=== PATIENT | female | born 1940 | race Caucasian/White ===

== ENCOUNTER 2020-04-04 08:41 | Outpatient (REF) | payer MEDICARE, BC, SELFPAY ==
[2020-04-04 10:53] LABS: Prothrombin Time 180.9 SEC (10.8-13.0)
[2020-04-04 10:56] LABS: INTERNATIONAL NORM RATIO 14.8 (0.9-1.1)
== END 2020-04-04 08:42 | disposition home or self-care (01) ==
LOC: HO.LAB 08:41
PROVIDERS: PCP Internal Medicine; Visit Provider Internal Medicine
DX: Z79.01 Long term (current) use of anticoagulants (principal)
CPT/HCPCS: 36415; 85610; 99211

== ENCOUNTER 2020-04-06 08:05 | Outpatient (REF) | payer MEDICARE, SELFPAY ==
[2020-04-06 09:10] LABS: Prothrombin Time 101.4 SEC (10.8-13.0)
[2020-04-06 09:12] LABS: INTERNATIONAL NORM RATIO 8.3 (0.9-1.1)
== END 2020-04-06 08:06 | disposition home or self-care (01) ==
LOC: HO.LAB 08:05
PROVIDERS: PCP Internal Medicine; Visit Provider Internal Medicine
DX: Z79.01 Long term (current) use of anticoagulants (principal)
CPT/HCPCS: 36415; 85610

== ENCOUNTER → 2020-04-08 08:01 | Outpatient (BNVA) | payer MEDICARE, SELFPAY | PROVIDERS: PCP Internal Medicine; Referring Provider Internal Medicine; Visit Provider Internal Medicine | DX: I48.0 Paroxysmal atrial fibrillation (principal); Z51.81 Encounter for therapeutic drug level monitoring; Z79.01 Long term (current) use of anticoagulants | CPT/HCPCS: 85610; 99211 ==

== ENCOUNTER → 2020-04-11 08:30 | Outpatient (BNVA) | payer MEDICARE, SELFPAY | PROVIDERS: PCP Internal Medicine; Visit Provider Internal Medicine | DX: I48.0 Paroxysmal atrial fibrillation (principal); Z51.81 Encounter for therapeutic drug level monitoring; Z79.01 Long term (current) use of anticoagulants | CPT/HCPCS: 85610; 99211 ==

== ENCOUNTER → 2020-04-15 08:32 | Outpatient (BNVA) | payer MEDICARE, SELFPAY | PROVIDERS: PCP Internal Medicine; Visit Provider Internal Medicine | DX: I48.0 Paroxysmal atrial fibrillation (principal); Z51.81 Encounter for therapeutic drug level monitoring; Z79.01 Long term (current) use of anticoagulants | CPT/HCPCS: 85610; 99211 ==

== ENCOUNTER → 2020-04-25 07:57 | Outpatient (BNVA) | payer MEDICARE, SELFPAY | PROVIDERS: PCP Internal Medicine; Referring Provider Internal Medicine; Visit Provider Internal Medicine Endocrinology, Diabetes & Metabolism | DX: Z13.89 Encounter for screening for other disorder (principal) | CPT/HCPCS: Q3014 ==

== ENCOUNTER 2020-04-26 08:59 | Outpatient (REF) | payer MEDICARE, SELFPAY ==
[2020-04-26 12:24] LABS: B Type Natriuretic Peptide 131 pg/mL (<100)
[2020-04-26 12:30] LABS: Anion Gap 13 (12-20); Blood Urea Nitrogen 14 mg/dL (9-16); Calcium 9.3 mg/dL (8.4-10.2); Carbon Dioxide 29 mmol/L (22-29); Chloride 104 mmol/L (96-108); Estimated Glomerular Filt Rate > 60; Glucose Random 103 mg/dL (60-115); Sodium 142 mmol/L (135-145)
[2020-04-26 12:31] LABS: Albumin Level 3.8 g/dL (3.5-5.0); Calcium 9.1 mg/dL (8.4-10.2)
[2020-04-26 12:47] LABS: Vitamin D 25-OH Total 72.5 ng/mL (>30)
[2020-04-27 14:03] LABS: Calcium (PTHI) 9.4 mg/dL (8.6-10.4); PTHI 44 pg/mL (14-64)
[2020-05-04 10:57] LABS: Vitamin B1 49 nmol/L (8-30)
== END 2020-04-26 09:00 | disposition home or self-care (01) ==
LOC: HO.LAB 08:59
PROVIDERS: Absent Provider Internal Medicine Endocrinology, Diabetes & Metabolism; PCP Internal Medicine; Referring Provider Internal Medicine; Visit Provider Internal Medicine
DX: M81.0 Age-related osteoporosis without current pathological fracture (principal); I34.2 Nonrheumatic mitral (valve) stenosis
CPT/HCPCS: 80048; 82040; 82306; 82310; 83880; 83970; 84425; 85610; 99211

== ENCOUNTER → 2020-05-02 09:15 | Outpatient (BNVA) | payer MEDICARE, SELFPAY | PROVIDERS: PCP Internal Medicine; Visit Provider Internal Medicine | DX: I48.0 Paroxysmal atrial fibrillation (principal); Z79.01 Long term (current) use of anticoagulants; Z51.81 Encounter for therapeutic drug level monitoring | CPT/HCPCS: 85610; 99211 ==

== ENCOUNTER 2020-05-04 12:58 | Outpatient (REF) | payer MEDICARE, SELFPAY ==
[2020-05-04 14:25] LABS: Total Volume 24 Hour Urine 850 mL
[2020-05-04 14:33] LABS: Creatinine, 24Hr Urine 1.1 G/Day (1.0-2.0); Creatinine, mg/dL 130.33
[2020-05-05 19:23] LABS: Calcium, 24 Hr Urine 86 mg/24 h; Calcium/Creatinine Ratio 73 mg/g creat (30-275); Creatinine 24Hr Urine 1.17 g/24 h (0.50-2.15)
[2020-05-10 14:23] LABS: N-Telopeptide 27 (see note); NTXCreaRU 41 mg/dL (20-275)
== END 2020-05-04 12:59 | disposition home or self-care (01) ==
LOC: HO.LNP 12:58
PROVIDERS: Visit Provider Internal Medicine Endocrinology, Diabetes & Metabolism
DX: M81.0 Age-related osteoporosis without current pathological fracture (principal)
CPT/HCPCS: 82340; 82523; 82570

== ENCOUNTER → 2020-05-09 08:02 | Outpatient (BNVA) | payer MEDICARE, SELFPAY | PROVIDERS: PCP Internal Medicine; Visit Provider Internal Medicine | DX: I48.0 Paroxysmal atrial fibrillation (principal); Z51.81 Encounter for therapeutic drug level monitoring; Z79.01 Long term (current) use of anticoagulants | CPT/HCPCS: 85610; 99211 ==

== ENCOUNTER → 2020-05-16 08:24 | Outpatient (BNVA) | payer MEDICARE, SELFPAY | PROVIDERS: PCP Internal Medicine; Visit Provider Internal Medicine | DX: I48.0 Paroxysmal atrial fibrillation (principal); Z51.81 Encounter for therapeutic drug level monitoring; Z79.01 Long term (current) use of anticoagulants | CPT/HCPCS: 85610; 99211 ==

== ENCOUNTER → 2020-05-30 09:08 | Outpatient (BNVA) | payer MEDICARE, SELFPAY | PROVIDERS: PCP Internal Medicine; Visit Provider Internal Medicine | DX: I48.0 Paroxysmal atrial fibrillation (principal); Z51.81 Encounter for therapeutic drug level monitoring; Z79.01 Long term (current) use of anticoagulants | CPT/HCPCS: 85610; 99211 ==

== ENCOUNTER → 2020-06-15 07:53 | Outpatient (BNVA) | payer MEDICARE, SELFPAY | PROVIDERS: PCP Internal Medicine; Visit Provider Internal Medicine | DX: I48.0 Paroxysmal atrial fibrillation (principal); Z51.81 Encounter for therapeutic drug level monitoring; Z79.01 Long term (current) use of anticoagulants | CPT/HCPCS: 85610; 99211 ==

== ENCOUNTER → 2020-07-28 13:40 | Outpatient (BNVA) | payer MEDICARE, SELFPAY | PROVIDERS: PCP Internal Medicine; Visit Provider Internal Medicine | DX: I48.0 Paroxysmal atrial fibrillation (principal); Z51.81 Encounter for therapeutic drug level monitoring; Z79.01 Long term (current) use of anticoagulants | CPT/HCPCS: Q3014 ==

== ENCOUNTER → 2020-08-01 11:57 | Outpatient (BNVA) | payer MEDICARE, SELFPAY | PROVIDERS: PCP Internal Medicine; Visit Provider Internal Medicine | DX: I48.0 Paroxysmal atrial fibrillation (principal); Z51.81 Encounter for therapeutic drug level monitoring; Z79.01 Long term (current) use of anticoagulants | CPT/HCPCS: Q3014 ==

== ENCOUNTER → 2020-08-08 13:50 | Outpatient (BNVA) | payer MEDICARE, SELFPAY | PROVIDERS: PCP Internal Medicine; Visit Provider Internal Medicine | DX: I48.0 Paroxysmal atrial fibrillation (principal); Z51.81 Encounter for therapeutic drug level monitoring; Z79.01 Long term (current) use of anticoagulants | CPT/HCPCS: Q3014 ==

== ENCOUNTER → 2020-08-15 11:57 | Outpatient (BNVA) | payer MEDICARE, SELFPAY | PROVIDERS: PCP Internal Medicine; Visit Provider Internal Medicine | DX: I48.0 Paroxysmal atrial fibrillation (principal); Z51.81 Encounter for therapeutic drug level monitoring; Z79.01 Long term (current) use of anticoagulants | CPT/HCPCS: Q3014 ==

== ENCOUNTER → 2020-08-19 11:20 | Outpatient (BNVA) | payer MEDICARE, SELFPAY | PROVIDERS: PCP Internal Medicine; Visit Provider Internal Medicine | DX: I48.0 Paroxysmal atrial fibrillation (principal); Z51.81 Encounter for therapeutic drug level monitoring; Z79.01 Long term (current) use of anticoagulants | CPT/HCPCS: Q3014 ==

== ENCOUNTER → 2020-08-24 12:11 | Outpatient (BNVA) | payer MEDICARE, SELFPAY | PROVIDERS: PCP Internal Medicine; Visit Provider Internal Medicine | DX: I48.0 Paroxysmal atrial fibrillation (principal); Z51.81 Encounter for therapeutic drug level monitoring; Z79.01 Long term (current) use of anticoagulants | CPT/HCPCS: Q3014 ==

== ENCOUNTER → 2020-08-25 15:48 | Outpatient (BNVA) | payer MEDICARE, SELFPAY | PROVIDERS: PCP Internal Medicine; Visit Provider Internal Medicine | DX: I48.0 Paroxysmal atrial fibrillation (principal); Z51.81 Encounter for therapeutic drug level monitoring; Z79.01 Long term (current) use of anticoagulants | CPT/HCPCS: Q3014 ==

== ENCOUNTER → 2020-08-29 14:46 | Outpatient (BNVA) | payer MEDICARE, SELFPAY | PROVIDERS: PCP Internal Medicine; Visit Provider Internal Medicine | DX: I48.0 Paroxysmal atrial fibrillation (principal); Z51.81 Encounter for therapeutic drug level monitoring; Z79.01 Long term (current) use of anticoagulants | CPT/HCPCS: Q3014 ==

== ENCOUNTER → 2020-09-01 10:51 | Outpatient (BNVA) | payer MEDICARE, BC, SELFPAY | PROVIDERS: PCP Internal Medicine; Visit Provider Internal Medicine | DX: I48.0 Paroxysmal atrial fibrillation (principal); Z51.81 Encounter for therapeutic drug level monitoring; Z79.01 Long term (current) use of anticoagulants | CPT/HCPCS: Q3014 ==

== ENCOUNTER → 2020-09-05 16:06 | Outpatient (BNVA) | payer MEDICARE, SELFPAY | PROVIDERS: PCP Internal Medicine; Visit Provider Internal Medicine | DX: I48.0 Paroxysmal atrial fibrillation (principal) | CPT/HCPCS: Q3014 ==

== ENCOUNTER → 2020-09-12 12:43 | Outpatient (BNVA) | payer MEDICARE, SELFPAY | PROVIDERS: PCP Internal Medicine; Visit Provider Internal Medicine | DX: I48.0 Paroxysmal atrial fibrillation (principal); Z79.01 Long term (current) use of anticoagulants; Z51.81 Encounter for therapeutic drug level monitoring | CPT/HCPCS: Q3014 ==

== ENCOUNTER → 2020-09-20 11:37 | Outpatient (BNVA) | payer MEDICARE, SELFPAY | PROVIDERS: PCP Internal Medicine; Visit Provider Internal Medicine | DX: I48.0 Paroxysmal atrial fibrillation (principal); Z79.01 Long term (current) use of anticoagulants; Z51.81 Encounter for therapeutic drug level monitoring | CPT/HCPCS: Q3014 ==

== ENCOUNTER → 2020-09-28 08:27 | Outpatient (BNVA) | payer MEDICARE, SELFPAY | PROVIDERS: PCP Internal Medicine; Visit Provider Internal Medicine | DX: I48.0 Paroxysmal atrial fibrillation (principal); Z51.81 Encounter for therapeutic drug level monitoring; Z79.01 Long term (current) use of anticoagulants | CPT/HCPCS: 85610; 99211 ==

== ENCOUNTER → 2020-10-05 08:01 | Outpatient (BNVA) | payer MEDICARE, SELFPAY | PROVIDERS: PCP Internal Medicine; Visit Provider Internal Medicine | DX: I48.0 Paroxysmal atrial fibrillation (principal); Z51.81 Encounter for therapeutic drug level monitoring; Z79.01 Long term (current) use of anticoagulants | CPT/HCPCS: 85610; 99211 ==

== ENCOUNTER → 2020-10-19 08:31 | Outpatient (BNVA) | payer MEDICARE, SELFPAY | PROVIDERS: PCP Internal Medicine; Visit Provider Internal Medicine | DX: I48.0 Paroxysmal atrial fibrillation (principal); Z51.81 Encounter for therapeutic drug level monitoring; Z79.01 Long term (current) use of anticoagulants | CPT/HCPCS: 85610; 99211 ==

== ENCOUNTER → 2020-11-09 08:20 | Outpatient (BNVA) | payer MEDICARE, BC, SELFPAY | PROVIDERS: PCP Internal Medicine; Visit Provider Internal Medicine | DX: I48.0 Paroxysmal atrial fibrillation (principal); Z51.81 Encounter for therapeutic drug level monitoring; Z79.01 Long term (current) use of anticoagulants | CPT/HCPCS: 85610; 99211 ==

== ENCOUNTER → 2020-11-30 08:02 | Outpatient (BNVA) | payer MEDICARE, BC, SELFPAY | PROVIDERS: PCP Internal Medicine; Visit Provider Internal Medicine | DX: I48.0 Paroxysmal atrial fibrillation (principal); Z51.81 Encounter for therapeutic drug level monitoring; Z79.01 Long term (current) use of anticoagulants | CPT/HCPCS: 85610; 99211 ==

== ENCOUNTER 2020-12-13 08:21 | Outpatient (REF) | payer MEDICARE, BC, SELFPAY ==
--- NOTE | ~2020-12-13 | US_ITS ---
EXAMINATION: US RETROPERITONEAL LIMITED (RENAL ONLY) CLINICAL INFORMATION: Nephrolithiasis. COMPARISON: Ultrasound renal ultrasound 12/07/2019 and 10/03/2018. CT abdomen pelvis 01/24/2017. TECHNIQUE: Real-time imaging of the kidneys. FINDINGS: RIGHT KIDNEY: 10.1 x 4.7 x 5.3 cm (SAG x AP x TRV). The kidney is normal in size, contour, and echogenicity. Renal cortical thickness is normal. No focal parenchymal lesions or hydronephrosis. The cluster of echogenic stones in upper pole measuring 0.9 x 0.4 x 0.5 cm. LEFT KIDNEY: 12.2 x 5.0 x 5.1 cm (SAG x AP x TRV). The kidney is normal in size, contour, and echogenicity. Renal cortical thickness is normal. No renal calculi or hydronephrosis. Anechoic cysts in lower pole measuring 2.3 x 1.8 x 2.0 cm. US/US renal BI IMPRESSION: Nonobstructive small echogenic cluster of stones in the upper pole right kidney. Anechoic cyst lower pole left kidney.
== END 2020-12-13 08:22 | disposition home or self-care (01) ==
LOC: HO.HMGCX 08:21
PROVIDERS: PCP Internal Medicine; Visit Provider Urology
DX: N20.0 Calculus of kidney (principal)
CPT/HCPCS: 76775

== ENCOUNTER → 2020-12-26 08:00 | Outpatient (BNVA) | payer MEDICARE, BC, SELFPAY | PROVIDERS: PCP Internal Medicine; Visit Provider Internal Medicine | DX: I48.0 Paroxysmal atrial fibrillation (principal); Z51.81 Encounter for therapeutic drug level monitoring; Z79.01 Long term (current) use of anticoagulants | CPT/HCPCS: 85610; 99211 ==

== ENCOUNTER → 2021-01-30 08:04 | Outpatient (BNVA) | payer MEDICARE, BC, SELFPAY | PROVIDERS: PCP Internal Medicine; Visit Provider Internal Medicine | DX: I48.0 Paroxysmal atrial fibrillation (principal); Z79.01 Long term (current) use of anticoagulants; Z51.81 Encounter for therapeutic drug level monitoring | CPT/HCPCS: 85610; 99211 ==

== ENCOUNTER → 2021-02-27 08:09 | Outpatient (BNVA) | payer MEDICARE, BC, SELFPAY | PROVIDERS: PCP Internal Medicine; Visit Provider Internal Medicine | DX: I48.0 Paroxysmal atrial fibrillation (principal); Z51.81 Encounter for therapeutic drug level monitoring; Z79.01 Long term (current) use of anticoagulants | CPT/HCPCS: 85610; 99211 ==

== ENCOUNTER → 2021-03-16 09:48 | Outpatient (BNVA) | payer MEDICARE, BC, SELFPAY | PROVIDERS: PCP Internal Medicine | DX: N20.0 Calculus of kidney (principal) | CPT/HCPCS: Q3014 ==

== ENCOUNTER → 2021-03-28 08:03 | Outpatient (BNVA) | payer MEDICARE, BC, SELFPAY | PROVIDERS: PCP Internal Medicine; Visit Provider Internal Medicine | DX: I48.0 Paroxysmal atrial fibrillation (principal); Z51.81 Encounter for therapeutic drug level monitoring; Z79.01 Long term (current) use of anticoagulants | CPT/HCPCS: 85610; 99211 ==

== ENCOUNTER → 2021-04-11 07:59 | Outpatient (BNVA) | payer MEDICARE, BC, SELFPAY | PROVIDERS: PCP Internal Medicine; Visit Provider Internal Medicine | DX: I48.0 Paroxysmal atrial fibrillation (principal); Z51.81 Encounter for therapeutic drug level monitoring; Z79.01 Long term (current) use of anticoagulants | CPT/HCPCS: 85610; 99211 ==

== ENCOUNTER → 2021-05-02 08:13 | Outpatient (BNVA) | payer MEDICARE, BC, SELFPAY | PROVIDERS: PCP Internal Medicine; Visit Provider Internal Medicine | DX: Z13.89 Encounter for screening for other disorder (principal) | CPT/HCPCS: 85610; 99211 ==

== ENCOUNTER 2021-05-02 09:00 | Outpatient (REF) | payer MEDICARE, BC, SELFPAY | END 2021-05-02 09:01 | disposition home or self-care (01) | LOC: HO.LAB 09:00 | PROVIDERS: PCP Internal Medicine; Visit Provider Internal Medicine | DX: Z20.822 Contact with and (suspected) exposure to COVID-19 (principal) | CPT/HCPCS: 85610; 99211; C9803; U0003; U0005 ==

== ENCOUNTER → 2021-05-22 08:02 | Outpatient (BNVA) | payer MEDICARE, BC, SELFPAY | PROVIDERS: PCP Internal Medicine; Visit Provider Internal Medicine | DX: I48.0 Paroxysmal atrial fibrillation (principal); Z51.81 Encounter for therapeutic drug level monitoring; Z79.01 Long term (current) use of anticoagulants | CPT/HCPCS: 85610; 99211 ==

== ENCOUNTER → 2021-06-26 08:02 | Outpatient (BNVA) | payer MEDICARE, BC, SELFPAY | PROVIDERS: PCP Internal Medicine; Visit Provider Internal Medicine | DX: I48.0 Paroxysmal atrial fibrillation (principal); Z51.81 Encounter for therapeutic drug level monitoring; Z79.01 Long term (current) use of anticoagulants | CPT/HCPCS: 85610; 99211 ==

== ENCOUNTER → 2021-07-11 08:41 | Outpatient (BNVA) | payer MEDICARE, BC, SELFPAY | PROVIDERS: PCP Internal Medicine; Visit Provider Internal Medicine | DX: I48.0 Paroxysmal atrial fibrillation (principal); Z51.81 Encounter for therapeutic drug level monitoring; Z79.01 Long term (current) use of anticoagulants | CPT/HCPCS: 85610; 99211 ==

== ENCOUNTER → 2021-08-09 08:01 | Outpatient (BNVA) | payer MEDICARE, BC, SELFPAY | PROVIDERS: PCP Internal Medicine; Visit Provider Internal Medicine | DX: I48.0 Paroxysmal atrial fibrillation (principal); Z51.81 Encounter for therapeutic drug level monitoring; Z79.01 Long term (current) use of anticoagulants | CPT/HCPCS: 85610; 99211 ==

== ENCOUNTER → 2021-09-04 08:04 | Outpatient (BNVA) | payer MEDICARE, BC, SELFPAY | PROVIDERS: PCP Internal Medicine; Visit Provider Internal Medicine | DX: I48.0 Paroxysmal atrial fibrillation (principal); Z51.81 Encounter for therapeutic drug level monitoring; Z79.01 Long term (current) use of anticoagulants | CPT/HCPCS: 85610; 99211 ==

== ENCOUNTER 2021-09-08 08:20 | Outpatient (REF) | payer MEDICARE, BC, SELFPAY ==
--- NOTE | ~2021-09-08 | US_ITS ---
EXAMINATION: US RETROPERITONEAL LIMITED (RENAL ONLY) CLINICAL INFORMATION: Calculus of kidney. COMPARISON: Renal ultrasound 12/13/2020 and 12/07/2019. CT abdomen and pelvis 01/24/2017. TECHNIQUE: Real-time imaging of the kidneys. FINDINGS: RIGHT KIDNEY: 9.6 x 4.5 x 5.2 cm (SAG x AP x TRV). The kidney is normal in size, contour, and echogenicity. Renal cortical thickness is normal. No focal parenchymal lesions or hydronephrosis. There is 0.6 x 0.4 x 0.6 cm stone in the upper pole not associated with hydronephrosis LEFT KIDNEY: Evaluation of left kidney is limited due to bowel gas distribution. Left kidney measured 10.1 x 4.2 x 4.8 cm (SAG x AP x TRV). The kidney is normal in size, contour, and echogenicity. Renal cortical thickness is normal. No renal calculi or hydronephrosis. There is lower pole 2.1 x 2.1 x 1.6 cm simple cyst. US/US renal BI IMPRESSION: Nephrolithiasis on the right and cyst on the left.
== END 2021-09-08 08:21 | disposition home or self-care (01) ==
LOC: HO.HMGCX 08:20
PROVIDERS: PCP Internal Medicine
DX: N20.0 Calculus of kidney (principal)
CPT/HCPCS: 76775

== ENCOUNTER → 2021-09-14 09:28 | Outpatient (BNVA) | payer MEDICARE, BC, SELFPAY | PROVIDERS: PCP Internal Medicine | DX: N20.0 Calculus of kidney (principal) | CPT/HCPCS: 99212 ==

== ENCOUNTER 2021-09-26 07:44 | Outpatient (REF) | payer MEDICARE, BC, SELFPAY ==
--- NOTE | ~2021-09-26 | MM_ITS ---
EXAMINATION: MM SCREENING DIGITAL BREAST TOMOSYNTHESIS, BILATERAL CLINICAL INFORMATION: Screening. Asymptomatic. 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 The lifetime risk of breast cancer based on the Tyrer-Cuzick Model is 2%. COMPARISON: Mammography: 12/08/2018, 10/19/2017, 09/20/2016 TECHNIQUE: Digital breast tomosynthesis is performed in both the craniocaudal and mediolateral oblique views along with computer-aided detection (CAD). Synthesized 2D images are generated from the tomosynthesis. Additional right cleavage and left MLO views are provided. FINDINGS: There are scattered areas of fibroglandular density (ACR BI-RADS breast composition Category b). There is fibronodular parenchymal pattern similar to prior studies. No developing density or interval architectural abnormality. Again, there are multiple bilateral scattered isolated and grouped round and coarse calcifications as well as vascular calcifications. There is biopsy clip marker again noted right breast mid 3:00 position. The calcifications in right breast prompting sampling appear coarser consistent with the pathology of hyalinized fibroadenoma. The axilla and skin contours are unremarkable. MM/MM tomosynthesis screening BI IMPRESSION: No mammographic evidence of malignancy. ASSESSMENT: BI-RADS 2: Benign RECOMMENDATION: Routine annual mammography screening. This patient's information was entered into a reminder system with a target due date for their next mammogram.
== END 2021-09-26 07:45 | disposition home or self-care (01) ==
LOC: HO.MAMMO 07:44
PROVIDERS: PCP Internal Medicine; Visit Provider Internal Medicine
DX: Z12.31 Encounter for screening mammogram for malignant neoplasm of breast (principal)
CPT/HCPCS: 77063; 77067

== ENCOUNTER → 2021-10-02 07:59 | Outpatient (BNVA) | payer MEDICARE, BC, SELFPAY | PROVIDERS: PCP Internal Medicine; Visit Provider Internal Medicine | DX: I48.0 Paroxysmal atrial fibrillation (principal); Z79.01 Long term (current) use of anticoagulants; Z51.81 Encounter for therapeutic drug level monitoring | CPT/HCPCS: 85610; 99211 ==

== ENCOUNTER → 2021-10-31 08:02 | Outpatient (BNVA) | payer MEDICARE, BC, SELFPAY | PROVIDERS: PCP Internal Medicine; Visit Provider Internal Medicine | DX: I48.0 Paroxysmal atrial fibrillation (principal); Z79.01 Long term (current) use of anticoagulants; Z51.81 Encounter for therapeutic drug level monitoring | CPT/HCPCS: 85610; 99211 ==

== ENCOUNTER → 2021-11-27 08:02 | Outpatient (BNVA) | payer MEDICARE, BC, SELFPAY | PROVIDERS: PCP Internal Medicine; Visit Provider Internal Medicine | DX: I48.0 Paroxysmal atrial fibrillation (principal); Z79.01 Long term (current) use of anticoagulants; Z51.81 Encounter for therapeutic drug level monitoring | CPT/HCPCS: 85610; 99211 ==

== ENCOUNTER → 2021-12-25 08:02 | Outpatient (BNVA) | payer MEDICARE, BC, SELFPAY | PROVIDERS: PCP Internal Medicine; Visit Provider Internal Medicine | DX: I48.0 Paroxysmal atrial fibrillation (principal); Z51.81 Encounter for therapeutic drug level monitoring; Z79.01 Long term (current) use of anticoagulants | CPT/HCPCS: 85610; 99211 ==

== ENCOUNTER → 2021-12-28 08:25 | Outpatient (BNVA) | payer MEDICARE, BC, SELFPAY | PROVIDERS: PCP Internal Medicine; Visit Provider Internal Medicine | DX: I48.0 Paroxysmal atrial fibrillation (principal); Z51.81 Encounter for therapeutic drug level monitoring; Z79.01 Long term (current) use of anticoagulants | CPT/HCPCS: 85610; 99211 ==

== ENCOUNTER → 2022-01-04 07:56 | Outpatient (BNVA) | payer MEDICARE, BC, SELFPAY | PROVIDERS: PCP Internal Medicine; Visit Provider Internal Medicine | DX: I48.0 Paroxysmal atrial fibrillation (principal); Z51.81 Encounter for therapeutic drug level monitoring; Z79.01 Long term (current) use of anticoagulants | CPT/HCPCS: 85610; 99211 ==

== ENCOUNTER → 2022-02-01 08:06 | Outpatient (BNVA) | payer MEDICARE, BC, SELFPAY | PROVIDERS: PCP Internal Medicine; Visit Provider Internal Medicine | DX: I48.0 Paroxysmal atrial fibrillation (principal); Z79.01 Long term (current) use of anticoagulants; Z51.81 Encounter for therapeutic drug level monitoring | CPT/HCPCS: 85610; 99211 ==

== ENCOUNTER 2022-02-02 11:01 | Outpatient (REF) | payer MEDICARE, BC, SELFPAY ==
[2022-02-02 13:52] LABS: MANUAL DIFF FLAG NO
[2022-02-02 13:58] LABS: Basophils Percent Auto 0.5 % (0-2); Eosinophils Absolute Auto 0.1 X10*3/uL (0.0-0.4); Eosinophils Percent Auto 2.2 % (0-4); Hematocrit 38.4 % (37.0-47.0); Hemoglobin 12.3 g/dl (12.0-16.0); Imm Gran Abs Auto 0.01 X10*3/uL (0.00-0.03); Imm Gran Pct Auto 0.2 % (0.0-0.4); Lymphocytes Absolute Auto 1.9 X10*3/uL (1.2-4.9); Lymphocytes Percent Auto 31.2 % (20-40); Mean Corpuscular Hemoglobin 29.9 pg (27.0-33.0); Mean Corpuscular Volume 93.2 fL (80.0-98.0); Mean Platelet Volume 11.6 fL (9.4-12.3); Monocytes Absolute Auto 0.6 X10*3/uL (0.1-1.2); Monocytes Percent Auto 9.5 % (2-11); Neutrophils Absolute Auto 3.4 x10*3/uL (2.0-8.3); Neutrophils Percent Auto 56.4 % (45-73); Platelet Count 168 X10*3/uL (160-400); Red Blood Count 4.12 X10*6/uL (4.20-5.50); Red Cell Distribution Width 13.2 % (11.0-16.0)
[2022-02-02 14:15] LABS: Alanine Aminotransferase 14 U/L (0-31); Albumin Level 4.1 g/dL (3.5-5.0); Alkaline Phosphatase 112 U/L (39-117); Anion Gap 18 (12-20); Aspartate Amino Transferase 26 U/L (5-31); Bilirubin Total 0.9 mg/dL (0.0-1.0); Blood Urea Nitrogen 38 mg/dL (9-16); Calcium 9.5 mg/dL (8.4-10.2); Carbon Dioxide 26 mmol/L (22-29); Chloride 104 mmol/L (96-108); Cholesterol 157 mg/dL; Estimated Glomerular Filt Rate 29; Glucose Fasting 106 mg/dL (60-99); HDL Cholesterol 35 mg/dL; LDL Cholesterol Calculated 89 mg/dl; Potassium 4.9 mmol/L (3.3-5.1); Sodium 143 mmol/L (135-145); Total Protein 7.2 g/dL (6.5-8.0); Triglycerides 169 mg/dL
[2022-02-02 14:38] LABS: TSH reflex Free T4 1.92 uIU/mL (0.32-4.0); Vitamin D 25-OH Total 87.6 ng/mL (>30)
== END 2022-02-02 11:02 | disposition home or self-care (01) ==
LOC: HO.HMGCLDS 11:01
PROVIDERS: PCP Internal Medicine; Visit Provider Internal Medicine
DX: Z00.00 Encounter for general adult medical examination without abnormal findings (principal); I48.91 Unspecified atrial fibrillation; I10 Essential (primary) hypertension; E78.5 Hyperlipidemia, unspecified
CPT/HCPCS: 36415; 80053; 80061; 82306; 84443; 85025

== ENCOUNTER 2022-02-15 14:56 | Outpatient (REF) | payer MEDICARE, BC, SELFPAY ==
[2022-02-15 17:21] LABS: Anion Gap 19 (12-20); Blood Urea Nitrogen 35 mg/dL (9-16); Calcium 9.9 mg/dL (8.4-10.2); Carbon Dioxide 26 mmol/L (22-29); Chloride 105 mmol/L (96-108); Estimated Glomerular Filt Rate 32; Glucose Random 100 mg/dL (60-115); Potassium 4.6 mmol/L (3.3-5.1); Sodium 145 mmol/L (135-145)
== END 2022-02-15 14:57 | disposition home or self-care (01) ==
LOC: HO.HMGCLDS 14:56
PROVIDERS: PCP Internal Medicine; Visit Provider Internal Medicine
DX: N18.4 Chronic kidney disease, stage 4 (severe) (principal)
CPT/HCPCS: 36415; 80048

== ENCOUNTER 2022-03-05 08:23 | Outpatient (REF) | payer MEDICARE, BC, SELFPAY ==
--- NOTE | ~2022-03-05 | US_ITS ---
EXAMINATION: US RETROPERITONEAL LIMITED (RENAL ONLY) CLINICAL INFORMATION: Calculus of kidney. COMPARISON: Renal ultrasound 09/08/2021 and 12/13/2020. CT abdomen and pelvis 01/24/2017. TECHNIQUE: Real-time imaging of the kidneys. Technically difficult study secondary to body habitus and limited mobility. FINDINGS: RIGHT KIDNEY: 10.2 x 4.2 x 5.2 cm (SAG x AP x TRV). The kidney is normal in size, contour, and echogenicity. Renal cortical thickness is normal. No focal parenchymal lesions or hydronephrosis. There is an echogenic stone upper pole measuring 0.6 x 0.2 x 0.5 cm without caliectasis. LEFT KIDNEY: 11.2 x 4.5 x 5.3 cm (SAG x AP x TRV). The kidney is normal in size, contour, and echogenicity. Renal cortical thickness is normal. No renal calculi or hydronephrosis. There is an anechoic cyst in the lower pole measuring 2.4 x 1.7 x 1.9 cm. US/US renal BI IMPRESSION: Nonobstructive echogenic stone upper pole right kidney. Small cyst lower pole left kidney.
== END 2022-03-05 08:24 | disposition home or self-care (01) ==
LOC: HO.HMGCX 08:23
PROVIDERS: Absent Provider Urology; PCP Internal Medicine
DX: N20.0 Calculus of kidney (principal)
CPT/HCPCS: 76775

== ENCOUNTER → 2022-03-07 08:01 | Outpatient (BNVA) | payer MEDICARE, BC, SELFPAY | PROVIDERS: PCP Internal Medicine; Visit Provider Internal Medicine | DX: I48.0 Paroxysmal atrial fibrillation (principal); Z79.01 Long term (current) use of anticoagulants; Z51.81 Encounter for therapeutic drug level monitoring | CPT/HCPCS: 85610; 99211 ==

== ENCOUNTER → 2022-04-02 08:01 | Outpatient (BNVA) | payer MEDICARE, BC, SELFPAY | PROVIDERS: PCP Internal Medicine; Visit Provider Internal Medicine | DX: I48.0 Paroxysmal atrial fibrillation (principal); Z79.01 Long term (current) use of anticoagulants; Z51.81 Encounter for therapeutic drug level monitoring | CPT/HCPCS: 85610; 99211 ==

== ENCOUNTER → 2022-04-12 08:44 | Outpatient (BNVA) | payer MEDICARE, BC, SELFPAY | PROVIDERS: PCP Internal Medicine; Visit Provider Urology | DX: N20.0 Calculus of kidney (principal); E21.1 Secondary hyperparathyroidism, not elsewhere classified | CPT/HCPCS: 99212 ==

== ENCOUNTER → 2022-04-16 08:00 | Outpatient (BNVA) | payer MEDICARE, BC, SELFPAY | PROVIDERS: PCP Internal Medicine; Visit Provider Internal Medicine | DX: I48.0 Paroxysmal atrial fibrillation (principal); Z51.81 Encounter for therapeutic drug level monitoring; Z79.01 Long term (current) use of anticoagulants | CPT/HCPCS: 85610; 99211 ==

== ENCOUNTER → 2022-04-30 08:39 | Outpatient (BNVA) | payer MEDICARE, BC, SELFPAY | PROVIDERS: PCP Internal Medicine; Visit Provider Internal Medicine | DX: I48.0 Paroxysmal atrial fibrillation (principal); Z79.01 Long term (current) use of anticoagulants; Z51.81 Encounter for therapeutic drug level monitoring | CPT/HCPCS: 85610; 99211 ==

== ENCOUNTER → 2022-05-21 08:03 | Outpatient (BNVA) | payer MEDICARE, BC, SELFPAY | PROVIDERS: PCP Internal Medicine; Visit Provider Internal Medicine | DX: I48.0 Paroxysmal atrial fibrillation (principal); Z79.01 Long term (current) use of anticoagulants; Z51.81 Encounter for therapeutic drug level monitoring | CPT/HCPCS: 85610; 99211 ==

== ENCOUNTER → 2022-06-18 08:01 | Outpatient (BNVA) | payer MEDICARE, BC, SELFPAY | PROVIDERS: PCP Internal Medicine; Visit Provider Internal Medicine | DX: I48.0 Paroxysmal atrial fibrillation (principal); Z79.01 Long term (current) use of anticoagulants; Z51.81 Encounter for therapeutic drug level monitoring | CPT/HCPCS: 85610; 99211 ==

== ENCOUNTER → 2022-07-09 08:02 | Outpatient (BNVA) | payer MEDICARE, BC, SELFPAY | PROVIDERS: PCP Internal Medicine; Visit Provider Internal Medicine | DX: I48.0 Paroxysmal atrial fibrillation (principal); Z51.81 Encounter for therapeutic drug level monitoring; Z79.01 Long term (current) use of anticoagulants | CPT/HCPCS: 85610; 99211 ==

== ENCOUNTER 2022-07-19 07:17 | Outpatient (REF) | payer MEDICARE, BC, SELFPAY ==
[2022-07-19 08:30] LABS: B Type Natriuretic Peptide 86 pg/mL (<100)
[2022-07-19 11:24] LABS: MANUAL DIFF FLAG NO
[2022-07-19 11:30] LABS: Basophils Percent Auto 0.5 % (0-2); Eosinophils Absolute Auto 0.1 X10*3/uL (0.0-0.4); Eosinophils Percent Auto 1.4 % (0-4); Hemoglobin 12.2 g/dl (12.0-16.0); Imm Gran Abs Auto 0.02 X10*3/uL (0.00-0.03); Imm Gran Pct Auto 0.3 % (0.0-0.4); Lymphocytes Absolute Auto 1.9 X10*3/uL (1.2-4.9); Lymphocytes Percent Auto 30.5 % (20-40); Mean Corpuscular HGB Conc 32.1 g/dl (31.0-35.0); Mean Corpuscular Hemoglobin 29.8 pg (27.0-33.0); Mean Corpuscular Volume 92.9 fL (80.0-98.0); Mean Platelet Volume 11.6 fL (9.4-12.3); Monocytes Absolute Auto 0.6 X10*3/uL (0.1-1.2); Monocytes Percent Auto 8.8 % (2-11); Neutrophils Absolute Auto 3.7 x10*3/uL (2.0-8.3); Neutrophils Percent Auto 58.5 % (45-73); Platelet Count 179 X10*3/uL (160-400); Red Blood Count 4.09 X10*6/uL (4.20-5.50); Red Cell Distribution Width 13.6 % (11.0-16.0); White Blood Count 6.3 X10*3/uL (4.8-10.8)
[2022-07-19 11:56] LABS: Alanine Aminotransferase 13 U/L (0-31); Alkaline Phosphatase 99 U/L (39-117); Anion Gap 19 (12-20); Aspartate Amino Transferase 24 U/L (5-31); Bilirubin Total 0.8 mg/dL (0.0-1.0); Blood Urea Nitrogen 44 mg/dL (9-16); Calcium 9.8 mg/dL (8.4-10.2); Carbon Dioxide 22 mmol/L (22-29); Chloride 109 mmol/L (96-108); Estimated Glomerular Filt Rate 22; Glucose Fasting 116 mg/dL (60-99); Potassium 4.6 mmol/L (3.3-5.1); Sodium 145 mmol/L (135-145); Total Protein 6.7 g/dL (6.5-8.0)
[2022-07-19 12:02] LABS: Vitamin D 25-OH Total 104.7 ng/mL (>30)
== END 2022-07-19 07:18 | disposition home or self-care (01) ==
LOC: HO.HMGCLDS 07:17
PROVIDERS: PCP Internal Medicine; Visit Provider Internal Medicine
DX: I12.9 Hypertensive chronic kidney disease with stage 1 through stage 4 chronic kidney disease, or unspecified chronic kidney disease (principal); N18.4 Chronic kidney disease, stage 4 (severe); E78.5 Hyperlipidemia, unspecified; I48.91 Unspecified atrial fibrillation; G47.33 Obstructive sleep apnea (adult) (pediatric)
CPT/HCPCS: 36415; 80053; 82306; 83880; 85025

== ENCOUNTER → 2022-08-13 08:01 | Outpatient (BNVA) | payer MEDICARE, BC, SELFPAY | PROVIDERS: PCP Internal Medicine; Visit Provider Internal Medicine | DX: I48.0 Paroxysmal atrial fibrillation (principal); Z79.01 Long term (current) use of anticoagulants; Z51.81 Encounter for therapeutic drug level monitoring | CPT/HCPCS: 85610; 99211 ==

== ENCOUNTER → 2022-08-21 09:19 | Outpatient (BNVA) | payer MEDICARE, BC, SELFPAY | PROVIDERS: PCP Internal Medicine; Visit Provider Internal Medicine | DX: Z79.01 Long term (current) use of anticoagulants (principal) | CPT/HCPCS: 85610; 99211 ==

== ENCOUNTER 2022-08-24 00:13 | Inpatient (IN) | payer MEDICARE, BC, SELFPAY ==
[2022-08-24] VITALS (11 sets, daily range): BP systolic 92–120; BP diastolic 34–63; PULSE 84–95; RESP 13–20; TEMP 36.2–36.4; O2SAT 95–98; BMI 35.0; BMI 37.1
--- NOTE | 2022-08-24 | ECG_ITS ---
Test Reason : WEakness Blood Pressure : / mmHG Vent. Rate : 089 BPM Atrial Rate : 000 BPM P-R Int : 000 ms QRS Dur : 092 ms QT Int : 376 ms P-R-T Axes : 000 018 047 degrees QTc Int : 457 ms Atrial fibrillation Abnormal ECG When compared with ECG of 20-AUG-2018 15:42, Atrial fibrillation has replaced Sinus rhythm Referred By: Roly Alfaro Electronically Signed By:CARMITA ROCHA MD
--- NOTE | ~2022-08-24 | CT_ITS ---
EXAMINATION: CT ABDOMEN AND PELVIS WITHOUT CONTRAST CLINICAL INFORMATION: Acute renal failure COMPARISON: 01/24/2017 TECHNIQUE: Multidetector volumetric imaging was performed from the superior aspect of the liver through the pubic symphysis. Sagittal and coronal reformatted images were obtained on the technologist's workstation. This CT examination was performed using dose optimization techniques as appropriate, variously including the following: *Automated exposure control *Adjustment of mA and/or kV according to patient size (this includes techniques or standardized protocols for targeted exams where dose is matched to indication/reason for exam; i.e. extremities or head) *Use of iterative reconstruction technique DLP: 823 mGy-cm FINDINGS: LUNG BASES: Bibasilar atelectasis. Cardiac pacer leads. Cardiac valvular hardware. Prominent heart. LIVER, GALLBLADDER, AND BILIARY TREE: The liver is normal in size, shape, and attenuation. No focal hepatic lesion or biliary ductal dilatation is present. Cholecystectomy. PANCREAS: Unremarkable. SPLEEN: Normal size. Calcified granulomata present. ADRENAL GLANDS: Unremarkable. KIDNEYS AND URETERS: The kidneys are normal in size, shape, and attenuation. No hydronephrosis or hydroureter. There are 2 right-sided renal calculi. The largest is at the upper pole measuring 0.6 cm, 13 cm from the posterior axillary line. BLADDER: Unremarkable. GASTROINTESTINAL TRACT: Decompressed stomach. Normal caliber small bowel. No obstruction. Normal appendix. No colonic wall thickening or inflammation. Colonic diverticulosis without diverticulitis, most prominent at the sigmoid colon. ABDOMINAL WALL: Abdominal wall laxity. No abdominal wall hernia seen. LYMPH NODES: Normal. VASCULAR: Normal caliber aorta with severe atherosclerotic calcification. PELVIC VISCERA: The uterus and adnexa are unremarkable. OSSEOUS STRUCTURES: No acute or suspicious osseous abnormality. Mild degenerative changes of the hips. Fixation hardware in both femora. CT/CT abdomen pelvis wo IV con IMPRESSION: No acute findings in the abdomen or pelvis. No hydronephrosis. Nonobstructing right renal calculi. Fleischner guidelines were followed.
--- NOTE | 2022-08-24 01:24 | ED_ITS ---
HPI - General Adult General Chief complaint: General Medical Stated complaint: Weakness/Diarrhea Time Seen by Provider: 08/24/22 01:23 Source: patient Mode of arrival: ambulatory Limitations: no limitations History of Present Illness HPI narrative: Patient history of chronic diarrhea for approximately last 4 months with nausea and poor oral intake no vomiting, history of CKD CHF AFib pulmonary hypertension on furosemide and potassium tablets states that she does not feel hungry feels extremely weak bowel movements are 3 to 4 times a day watery without any significant abdominal pain patient usually independent with cane lives with her does not feel hungry has not seen a manager transmission yet. No recent use of antibiotic no recent travel. Patient has elevated BUN last month patient aware of abnormal kidney functions but has not seen a audit tech on furosemide and potassium tablet Related Data Home Medications Medication Instructions Recorded Confirmed atenolol 50 mg tablet 50 mg PO DAILY 04/25/20 08/13/22 aspirin 81 mg chewable tablet 81 mg PO DAILY 06/09/20 08/13/22 thiamine HCl (vitamin B1) 50 mg 50 mg PO DAILY 11/09/20 08/13/22 tablet (Vitamin B-1) albuterol sulfate 90 mcg/actuation 2 puff inhalation Q4-6H PRN sh 08/24/22 08/24/22 aerosol inhaler amlodipine 2.5 mg tablet 2.5 mg PO DAILY 08/24/22 08/24/22 atenolol 50 mg tablet 50 mg PO DAILY 08/24/22 08/24/22 atorvastatin 80 mg tablet 80 mg PO DAILY 08/24/22 08/24/22 furosemide 40 mg tablet 40 mg PO BID 08/24/22 08/24/22 olmesartan 40 mg tablet 40 mg PO DAILY 08/24/22 08/24/22 omeprazole 20 mg capsule,delayed 20 mg PO BID 08/24/22 08/24/22 release potassium chloride 20 mEq 20 meq PO BID 08/24/22 08/24/22 tablet,extended release warfarin 2.5 mg tablet 2.5 - 5 mg PO DAILY 08/24/22 08/24/22 Previous Rx's Medication Instructions Recorded furosemide 40 mg tablet 40 mg PO BID #180 tabs 09/05/20 atorvastatin 80 mg tablet 80 mg PO DAILY #90 tabs 03/12/22 olmesartan 40 mg tablet 40 mg PO DAILY #90 tabs 03/12/22 potassium chloride 20 mEq 20 meq PO BID #180 tabs 03/13/22 tablet,extended release warfarin 2.5 mg tablet See Rx Instructions PO DAILY #360 03/28/22 tabs albuterol sulfate 90 mcg/actuation 2 puff inhalation Q4-6H PRN 07/03/22 aerosol inhaler (ProAir HFA) shortness of breath or wheezing #18 grams omeprazole 20 mg capsule,delayed 20 mg PO BID #180 caps 07/03/22 release amlodipine 2.5 mg tablet 2.5 mg PO DAILY #90 tabs 07/16/22 Allergies Allergy/AdvReac Type Severity Reaction Status Date / Time acetaminophen [From Vicodin] Allergy Intermediate per patient Verified 08/21/22 09:23 hydrocodone [From Vicodin] Allergy Mild CHEST PAIN Verified 08/21/22 09:23 Review of Systems Review of Systems: Constitutional : No Weight loss, No Fever, No Chills ENT/Mouth : No sore throat, No Rhinorrhea Eyes: No Eye Pain, No Swelling Cardiovascular : No Chest Pain, no palpitations Respiratory : No Cough, No Sputum, no shortness of breath Gastrointestinal : ++ Nausea, No Vomiting, ++Diarrhea, No abdominal Pain, no black stools Genitourinary : No Dysuria, No Urinary Frequency Musculoskeletal : No joint pain, No Myalgias, No Joint Swelling Skin : No Skin Lesions, No rash Neuro : No Weakness, No Numbness, No Dizziness, No Headache Psych : No Anxiety/Panic, No Depression Heme/Lymph: No Bruising, No Lymphadenopathy Endocrine : No Polyuria, No Polydipsia All other systems reviewed and are negative Yes all other systems are reviewed and are negative [facility] Past Medical History Medical History A-fib COPD (chronic obstructive pulmonary disease) HTN (hypertension) Hyperlipidemia 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 Mother No problems noted. Maternal Aunt Breast cancer Social History Social History Patient Tobacco Use Status: Former Tobacco user e-Cigarette/Vaping Use: Never Used Second Hand Smoke Exposure: No Advance Directives: No Advance Directives Information Provided: No Current occupational status: retired Cognitive needs: No Hearing needs: No Vision needs: No Physical Exam ED Vital Signs: Vital Signs - 24 hr 08/24/22 00:42 08/24/22 01:03 08/24/22 03:03 Temperature 97.2 F 97.4 F Pulse Rate 86 89 90 Respiratory Rate 16 19 20 Blood Pressure 92/34 L 94/44 L 98/53 L Pulse Oximetry 96 98 97 Oxygen Delivery Method Room Air Room Air Room Air BMI result Body Mass Index 35.0 Appearance: Alert. Oriented X3. No acute distress. Eyes: PERRLA, No Nystagmus ENT: Pharynx normal. Oral Mucosa dry Neck: Normal inspection. Neck supple. CVS: Irregularly irregular heart rate no murmur/gallop Pulses normal. Respiratory: No respiratory distress. Equal air entry bilateral, no wheezing/rales/rhonchi Abdomen: Soft and nontender. Bowel sounds are present, no mass palpable, no CVA tenderness Skin: Skin warm and dry. Normal skin color. Normal skin turgor. Extremities: No lower extremity edema. No calf tenderness Neuro: Oriented X 3. No motor deficit. No sensory deficit.No cerebellar signs , cranial nerves II-XII intact Medications Administered Generic Name Dose Route Start Last Admin Trade Name Freq PRN Reason Stop Dose Admin Dextrose 250 mls @ 750 mls/hr 08/24/22 05:35 08/24/22 05:40 D10 IV 08/24/22 05:54 750 mls/hr Q15M ONE Administration Discontinued Medications Generic Name Dose Route Start Last Admin Trade Name Freq PRN Reason Stop Dose Admin Sodium Chloride 1,000 mls @ 999 mls/hr 08/24/22 01:38 08/24/22 01:47 Ns IV 08/24/22 02:38 999 mls/hr .Q1H1M ONE Administration Calcium Gluconate 2 gm in 100 mls @ 50 mls/hr 08/24/22 02:16 08/24/22 05:02 Calcium Gluconate IV 08/24/22 04:15 Infused ONCE ONE Infusion Sodium Bicarbonate 50 meq 08/24/22 02:28 08/24/22 02:38 Sodium Bicarbonate 8.4% 50 Meq/50 Ml Syringe IVPUSH 08/24/22 02:29 50 meq ONCE ONE Administration Sodium Zirconium Cyclosilicate 10 gm 08/24/22 02:16 08/24/22 02:35 Sodium Zirconium Cyclosilicate 10 Gm Powd.Pack PO 08/24/22 02:17 10 gm ONCE ONE Administration Medical Decision Making Medical Decision Making MDM Narrative: Patient with acute on chronically with hyperkalemia no acute EKG changes of hyperkalemia. Patient received IV calcium gluconate IV bicarb of Lokelma potassium decreased from 7.3 to 6.6. Case discussed with Dr. Radford audit tech patient can go to floor once potassium close to 6.5 without EKG changes will repeat Lokelma and sodium bicarb along with dextrose with insulin Consult Healthcare Provider Management of the patient was discussed with: Hospitalist Lab Data [facility] Lab Attestation statement: I reviewed the patient's lab results. 08/24/22 01:41 08/24/22 01:42 Labs: Lab Results 08/24/22 08/24/22 08/24/22 Range/Units 01:41 01:42 03:32 WBC 6.7 (4.8-10.8) X10*3/uL RBC 3.93 L (4.20-5.50) X10*6/uL Hgb 11.7 L (12.0-16.0) g/dl Hct 37.0 (37.0-47.0) % MCV 94.1 (80.0-98.0) fL MCH 29.8 (27.0-33.0) pg MCHC 31.6 (31.0-35.0) g/dl RDW 14.7 (11.0-16.0) % Plt Count 129 L D (160-400) X10*3/uL MPV 10.6 (9.4-12.3) fL Immature Gran % (Auto) 0.3 (0.0-0.4) % Neut % (Auto) 75.1 H (45-73) % Lymph % (Auto) 14.1 L (20-40) % [place] % (Auto) 9.1 (2-11) % Eos % (Auto) 1.0 (0-4) % Baso % (Auto) 0.4 (0-2) % Lymph # (Auto) 0.9 L (1.2-4.9) X10*3/uL [place] # (Auto) 0.6 (0.1-1.2) X10*3/uL Eos # (Auto) 0.1 (0.0-0.4) X10*3/uL Baso # (Auto) 0.0 (0.0-0.2) X10*3/uL Abs Immat Gran (auto) 0.02 (0.00-0.03) X10*3/uL Absolute Neuts (auto) 5.0 (2.0-8.3) x10*3/uL Absolute Nucleated RBC 0.000 (0.0-0.012) X10*3/uL Nucleated RBC % (auto) 0.0 (0.0-0.2) /100WBC Sodium 145 (135-145) mmol/L Potassium 7.3 H* D (3.3-5.1) mmol/L Chloride 123 H (96-108) mmol/L Carbon Dioxide 12 L (22-29) mmol/L Anion Gap 17 (12-20) BUN 89 H (9-16) mg/dL Creatinine 4.54 H* (0.5-1.4) mg/dL Estim Creat Clear Calc 10.5 Estimated GFR 9 Random Glucose 84 (60-115) mg/dL Calcium 9.4 (8.4-10.2) mg/dL Magnesium 1.5 L (1.6-2.6) mg/dL Total Bilirubin 0.6 (0.0-1.0) mg/dL AST 25 (5-31) U/L ALT 14 (0-31) U/L Alkaline Phosphatase 96 (39-117) U/L Total Protein 6.1 L (6.5-8.0) g/dL Albumin 3.6 (3.5-5.0) g/dL Lipase 186 H (8-78) U/L Urine Color Urine Appearance Urine pH (5.0-9.0) Ur Specific Carlton (1.005-1.025) Urine Protein (Neg-Trace) mg/dL Urine Glucose (UA) (Negative) mg/dL Urine Ketones (Negative) mg/dL Urine Blood (Negative) Urine Nitrite (Negative) Ur Leukocyte Esterase (Negative) Urine RBC (0-2) /HPF Urine WBC (0-5) /HPF Ur Squamous Epith Cells (0-2) /HPF Other Crystals Urine Bacteria (None Seen) Hyaline Casts (0-2) /LPF COVID-19 (SIM) Negative (Negative) COVID-19 Clin Com See Note 08/24/22 08/24/22 Range/Units 04:15 04:57 WBC (4.8-10.8) X10*3/uL RBC (4.20-5.50) X10*6/uL Hgb (12.0-16.0) g/dl Hct (37.0-47.0) % MCV (80.0-98.0) fL MCH (27.0-33.0) pg MCHC (31.0-35.0) g/dl RDW (11.0-16.0) % Plt Count (160-400) X10*3/uL MPV (9.4-12.3) fL Immature Gran % (Auto) (0.0-0.4) % Neut % (Auto) (45-73) % Lymph % (Auto) (20-40) % [place] % (Auto) (2-11) % Eos % (Auto) (0-4) % Baso % (Auto) (0-2) % Lymph # (Auto) (1.2-4.9) X10*3/uL [place] # (Auto) (0.1-1.2) X10*3/uL Eos # (Auto) (0.0-0.4) X10*3/uL Baso # (Auto) (0.0-0.2) X10*3/uL Abs Immat Gran (auto) (0.00-0.03) X10*3/uL Absolute Neuts (auto) (2.0-8.3) x10*3/uL Absolute Nucleated RBC (0.0-0.012) X10*3/uL Nucleated RBC % (auto) (0.0-0.2) /100WBC Sodium 147 H (135-145) mmol/L Potassium 6.6 H* (3.3-5.1) mmol/L Chloride 125 H (96-108) mmol/L Carbon Dioxide 12 L (22-29) mmol/L Anion Gap 17 (12-20) BUN 85 H (9-16) mg/dL Creatinine 4.05 H* (0.5-1.4) mg/dL Estim Creat Clear Calc 11.7 Estimated GFR 11 Random Glucose 79 (60-115) mg/dL Calcium 9.6 (8.4-10.2) mg/dL Magnesium (1.6-2.6) mg/dL Total Bilirubin (0.0-1.0) mg/dL AST (5-31) U/L ALT (0-31) U/L Alkaline Phosphatase (39-117) U/L Total Protein (6.5-8.0) g/dL Albumin (3.5-5.0) g/dL Lipase (8-78) U/L Urine Color Yellow Urine Appearance Clear Urine pH 5.0 (5.0-9.0) Ur Specific Carlton 1.010 (1.005-1.025) Urine Protein Negative (Neg-Trace) mg/dL Urine Glucose (UA) Negative (Negative) mg/dL Urine Ketones Trace (Negative) mg/dL Urine Blood Negative (Negative) Urine Nitrite Negative (Negative) Ur Leukocyte Esterase Small (1+) H (Negative) Urine RBC 0-2 (0-2) /HPF Urine WBC 0-5 (0-5) /HPF Ur Squamous Epith Cells 0-2 (0-2) /HPF Other Crystals Present Urine Bacteria None Seen (None Seen) Hyaline Casts 6-10 (0-2) /LPF COVID-19 (SIM) (Negative) COVID-19 Clin Com Independent Interpretation I performed an independent interpretation of an: EKG Interpretation: Atrial fibrillation with heart rate 89 beats per minute no acute ST T wave changes no acute ischemia no hyperkalemic changes Critical Care Time Critical Care Time Critical Care Time: Yes Total Critical Care Time: 55 Attestation: The patient was critically ill with a high probability of imminent or life threatening deterioration. I spent greater than 60 minutes of discontinuous time evaluating the patient,delivering critical care at the bedside, discussing and evaluating pertinent data with consultants. Critical care time does not include time spent performing separately billable procedures or teaching. Total time spent performing critical care was 55 minutes. Discharge Plan Discharge Clinical Impression: Acute renal failure superimposed on chronic kidney disease, Acute hyperkalemia, Weakness Patient Disposition: Admitted As Inpatient
[2022-08-24] MEDS: 0.9 % Sodium Chloride 1,000 ML 999 ML IV (01:47)
[2022-08-24 01:49] LABS: Basophils Percent Auto 0.4 % (0-2); Eosinophils Absolute Auto 0.1 X10*3/uL (0.0-0.4); Hemoglobin 11.7 g/dl (12.0-16.0); Imm Gran Abs Auto 0.02 X10*3/uL (0.00-0.03); Imm Gran Pct Auto 0.3 % (0.0-0.4); Lymphocytes Absolute Auto 0.9 X10*3/uL (1.2-4.9); Lymphocytes Percent Auto 14.1 % (20-40); MANUAL DIFF FLAG NO; Mean Corpuscular HGB Conc 31.6 g/dl (31.0-35.0); Mean Corpuscular Hemoglobin 29.8 pg (27.0-33.0); Mean Corpuscular Volume 94.1 fL (80.0-98.0); Mean Platelet Volume 10.6 fL (9.4-12.3); Monocytes Absolute Auto 0.6 X10*3/uL (0.1-1.2); Monocytes Percent Auto 9.1 % (2-11); Neutrophils Percent Auto 75.1 % (45-73); Platelet Count 129 X10*3/uL (160-400); Red Blood Count 3.93 X10*6/uL (4.20-5.50); Red Cell Distribution Width 14.7 % (11.0-16.0); White Blood Count 6.7 X10*3/uL (4.8-10.8)
[2022-08-24 02:17] LABS: Alanine Aminotransferase 14 U/L (0-31); Albumin Level 3.6 g/dL (3.5-5.0); Alkaline Phosphatase 96 U/L (39-117); Anion Gap 17 (12-20); Aspartate Amino Transferase 25 U/L (5-31); Bilirubin Total 0.6 mg/dL (0.0-1.0); Blood Urea Nitrogen 89 mg/dL (9-16); Calcium 9.4 mg/dL (8.4-10.2); Carbon Dioxide 12 mmol/L (22-29); Chloride 123 mmol/L (96-108); Creatinine Clr Calc Pharmacy 10.5; Estimated Glomerular Filt Rate 9; Glucose Random 84 mg/dL (60-115); Lipase 186 U/L (8-78); Magnesium 1.5 mg/dL (1.6-2.6); Potassium 7.3 mmol/L (3.3-5.1); Sodium 145 mmol/L (135-145); Total Protein 6.1 g/dL (6.5-8.0)
[2022-08-24] MEDS: Sodium Zirconium Cyclosilicate 10 GM POWD.PACK PO ×4 (02:35→17:48)
[2022-08-24] MEDS: Sodium Bicarbonate 8.4% 50 MEQ/50 ML SYRINGE IVPUSH ×2 (02:38→06:09)
[2022-08-24] MEDS: Calcium Gluconate/NaCl,Iso-Osm 2 GM/100 ML PLAST..BAG IV (02:40)
[2022-08-24 03:50] LABS: COVID-19 Test Negative (Negative); IDNOW Serial# BCCEAD1C
[2022-08-24 04:21] LABS: Appearance Urine Clear; Color Urine Yellow; Glucose Urine UA Negative (Negative); Leukocyte Esterase Urine Small (1+) (Negative); Nitrite Urine Negative (Negative); UMIC TRIGGER UACC YES; Urine Blood Negative (Negative); Urine Ketones Trace mg/dL (Negative); Urine Protein Negative (Neg-Trace)
[2022-08-24 04:33] LABS: Bacteria Urine None Seen (None Seen); Other Crystals Urine Present; RBC Urine 0-2 /HPF (0-2); Squamous Epithelial Cell Urine 0-2 /HPF (0-2); UACC Culture Trigger YES; WBC Urine 0-5 /HPF (0-5)
[2022-08-24 05:29] LABS: Anion Gap 17 (12-20); Blood Urea Nitrogen 85 mg/dL (9-16); Calcium 9.6 mg/dL (8.4-10.2); Carbon Dioxide 12 mmol/L (22-29); Chloride 125 mmol/L (96-108); Creatinine Clr Calc Pharmacy 11.7; Estimated Glomerular Filt Rate 11; Glucose Random 79 mg/dL (60-115); Potassium 6.6 mmol/L (3.3-5.1); Sodium 147 mmol/L (135-145)
[2022-08-24] MEDS: Dextrose 10 % 250 ML 750 ML IV (05:40)
[2022-08-24 05:55] LABS: Glucose, Whole Blood 72 mg/dL (60-115)
[2022-08-24 06:03] LABS: Glucose, Whole Blood 195 mg/dL (60-115)
[2022-08-24] MEDS: Insulin Regular, Human 100 UNIT/ML 3 ML VIAL IVPUSH (06:09)
--- NOTE | 2022-08-24 06:13 | MHC.EDTECH ---
PT 1X assisted to bedside commode. PT bottom red. Rn Lori applied barrier cream to PT bottom. Pt 1x assisted back to bed. Pt given warm blankets and call valentine in reach
--- NOTE | 2022-08-24 06:18 | PC.NURSE ---
Pt A&Ox4, denies any pain, reports increase weakness x weeks with N/D and decrease PO intake. Last BM was prior to coming in, denies any pain/burning with urination. Pt place on bedside monitor, A-fib HR 70-90s. IV line placed, blood work collected and sent to lab. Meds given as documented. Pt stand by assist to bedside commode. Skin intact, buttox area noted to bed reddened, palmer care provided and barrier cream applied.
--- NOTE | 2022-08-24 06:19 | MHC.EDTECH ---
PT turned on left side
[2022-08-24 06:57] LABS: Glucose, Whole Blood 131 mg/dL (60-115)
[2022-08-24 07:23] LABS: Anion Gap 14 (12-20); Blood Urea Nitrogen 81 mg/dL (9-16); Calcium 8.8 mg/dL (8.4-10.2); Carbon Dioxide 13 mmol/L (22-29); Chloride 124 mmol/L (96-108); Creatinine Clr Calc Pharmacy 12.6; Estimated Glomerular Filt Rate 12; Glucose Random 133 mg/dL (60-115); Potassium 5.8 mmol/L (3.3-5.1); Sodium 145 mmol/L (135-145)
--- NOTE | 2022-08-24 08:44 | PHA.MEDREC ---
Pharmacy Consult ? Medication Reconciliation Pharmacy has completed the medication reconciliation.
--- NOTE | 2022-08-24 11:15 | PM.IMHP ---
History of Present Illness Date of Service: 08/24/22 Attending physician on admission: Eliana Humphrey Chief Complaint: Diarrhea Pt is an 82-year-old female with a PMH significant for?CKD3, paroxysmal AFib on warfarin, HLD, HTN, mitral valve replacement, and COPD who presents to the ED with 3-4 months of chronic diarrhea. Patient states that her symptoms began around 4 months ago when she took her pills at night with a cold glass of soda. Patient did this in spite of having seen an ad on TV earlier stating one should not have cold drinks before bed. She felt the pill get stuck in her throat, had a gadding reflex, and then developed pain in the back of her neck. Says she continued to feel throat and neck discomfort for 3-4 weeks despite not having cold drinks at night. Discomfort eventually went away for a while but returned after another month, despite pt not drinking cold drinks at night. Currently pt says she does not feel throat or neck discomfort. Pt also notes she has been having non-bloody diarrhea on and off for the same period of time. Can occur 3-4 times a day, usually associated with eating a meal. Pt has been experiencing diarrhea continuously for the past month. Pt notes that she has significantly decreased her PO intake of both liquids and solids during this time, while continuing to take her medications, including furosemide and her potassium-chloride. Pt had an appointment today to see her PCP, but presented to the ED when her daughter came to visit her last night and told her she did not look well and needed to be seen immediately. Some nausea, no vomiting. Pt denies fever, chills, abdominal pain. No chest pain/pressure, palpitations. In the ED patient was afebrile but hypotensive as low as 92/34. Labs were significant for hyperkalemia of 7.3, chloride of 123, CO2 of 12, BUN of 89, creatinine of 4.54, and lipase of 86. CT?of abdomen and pelvis found no acute findings, no hydronephrosis, nonobstructing right renal calculi. EKG demonstrated atrial fibrillation with no evidence of tall peaked T-waves or ST elevations or depressions. Pt was treated with IVF, Lokelma x2, sodium bicarbonate x2, dextrose, and insulin. Pt will be admitted to the hospital for treatment and management of hyperkalemia and ARIADNA on CKD3. Review of Systems Review of Systems: Decreased po intake of solids and liquids Non-cloody diarrhea Nausea, no vomiting Generalized fatigue Denies polyuria, dysuria No chest pain/pressure Yes all other systems are reviewed and are negative [facility] Medical History A-fib COPD (chronic obstructive pulmonary disease) HTN (hypertension) Hyperlipidemia Hyperparathyroidism due to vitamin D deficiency Nephrolithiasis, uric acid GORDON (obstructive sleep apnea) Osteoporosis Pulmonary HTN Severe mitral regurgitation Thiamine deficiency Family History Father No problems noted. Mother No problems noted. Maternal Aunt Breast cancer Surgical History History of open reduction and internal fixation (ORIF) procedure Hx of hernia repair Social History Alcohol intake: never Patient Tobacco Use Status: Former Tobacco user Smoked in Last 30 Days: No e-Cigarette/Vaping Use: Never Used Second Hand Smoke Exposure: No Use of substances other than those prescribed or required for medical reasons: No Advance Directives: No Advance Directives Information Provided: No Nutrition Risks: No Nutritional Risk Current occupational status: retired Cognitive needs: No Hearing needs: No Vision needs: No Meds Allergies Allergy/AdvReac Type Severity Reaction Status Date / Time acetaminophen [From Vicodin] Allergy Intermediate per patient Verified 08/21/22 09:23 hydrocodone [From Vicodin] Allergy Mild CHEST PAIN Verified 08/21/22 09:23 Active Medications: Current Medications Pharmacy Consult (Consult Rx Perform Med Rec) 1 each MISCELLANE ONCE PRN PRN Reason: Consult order Home Medications Medication Instructions Recorded Confirmed Last Taken Type albuterol sulfate 90 mcg/actuation 2 puff inhalation Q4-6H PRN sh 08/24/22 08/24/22 Unknown History aerosol inhaler amlodipine 2.5 mg tablet 2.5 mg PO DAILY 08/24/22 08/24/22 Unknown History atenolol 50 mg tablet 50 mg PO DAILY 08/24/22 08/24/22 Unknown History atorvastatin 80 mg tablet 80 mg PO DAILY 08/24/22 08/24/22 Unknown History furosemide 40 mg tablet 40 mg PO BID 08/24/22 08/24/22 Unknown History olmesartan 40 mg tablet 40 mg PO DAILY 08/24/22 08/24/22 Unknown History omeprazole 20 mg capsule,delayed 20 mg PO BID 08/24/22 08/24/22 Unknown History release potassium chloride 20 mEq 20 meq PO BID 08/24/22 08/24/22 Unknown History tablet,extended release warfarin 2.5 mg tablet 2.5 mg PO DAILY@1200 08/24/22 08/24/22 Unknown History Physical Exam Vital Signs and Narrative: Vital Signs: Last Vital Signs Temp 97.5 F 08/24/22 05:58 Pulse 88 08/24/22 10:01 Resp 15 08/24/22 10:01 BP 106/53 L 08/24/22 10:01 Pulse Ox 98 08/24/22 10:01 O2 Del Method Room Air 08/24/22 10:01 BMI result Body Mass Index 35.0 Constitutional: Alert, in no acute distress. Mental Status: Oriented to person, place and time. Eyes: Pupils are equal, round, and reactive to light. Ear, Nose, and Throat: Oropharynx clear, mucous membranes moist. Ears and nose without deformities. Trachea midline. Respiratory: Clear to auscultation bilaterally. No wheezing, rales, or rhonchi. Cardiovascular: Irregularly irregular rhythm. No murmurs, rubs, or gallops. Gastrointestinal: Abdomen soft, non-distended. Mild left-sided tenderness. Normal bowel sounds. Neurologic: Cranial nerves II-XII are grossly intact bilaterally. No focal neurological deficits. Moves all extremities spontaneously. Skin: No rashes or lesions noted. Extremities: No edema. Psychiatric: Normal mood and affect. Results Labs 08/24/22 01:41 08/24/22 06:55 Labs: Laboratory Results - last 24 hr 08/24/22 08/24/22 08/24/22 01:41 01:42 03:32 MCV 94.1 MCH 29.8 MCHC 31.6 RDW 14.7 Plt Count 129 L D MPV 10.6 Immature Gran % (Auto) 0.3 Neut % (Auto) 75.1 H Lymph % (Auto) 14.1 L [place] % (Auto) 9.1 Eos % (Auto) 1.0 Baso % (Auto) 0.4 Lymph # (Auto) 0.9 L [place] # (Auto) 0.6 Eos # (Auto) 0.1 Baso # (Auto) 0.0 Abs Immat Gran (auto) 0.02 Absolute Neuts (auto) 5.0 Absolute Nucleated RBC 0.000 Nucleated RBC % (auto) 0.0 Anion Gap 17 Estim Creat Clear Calc 10.5 Estimated GFR 9 POC Glucose Random Glucose 84 Calcium 9.4 Magnesium 1.5 L Total Bilirubin 0.6 AST 25 ALT 14 Alkaline Phosphatase 96 Total Protein 6.1 L Albumin 3.6 Lipase 186 H Urine Color Urine Appearance Urine pH Ur Specific [place] Urine Protein Urine Glucose (UA) Urine Ketones Urine Blood Urine Nitrite Ur Leukocyte Esterase Urine RBC Urine WBC Ur Squamous Epith Cells Other Crystals Urine Bacteria Hyaline Casts COVID-19 (SIM) Negative COVID-19 Clin Com See Note 08/24/22 08/24/22 08/24/22 04:15 04:57 05:42 MCV MCH MCHC RDW Plt Count MPV Immature Gran % (Auto) Neut % (Auto) Lymph % (Auto) [place] % (Auto) Eos % (Auto) Baso % (Auto) Lymph # (Auto) [place] # (Auto) Eos # (Auto) Baso # (Auto) Abs Immat Gran (auto) Absolute Neuts (auto) Absolute Nucleated RBC Nucleated RBC % (auto) Anion Gap 17 Estim Creat Clear Calc 11.7 Estimated GFR 11 POC Glucose 72 Random Glucose 79 Calcium 9.6 Magnesium Total Bilirubin AST ALT Alkaline Phosphatase Total Protein Albumin Lipase Urine Color Yellow Urine Appearance Clear Urine pH 5.0 Ur Specific [place] 1.010 Urine Protein Negative Urine Glucose (UA) Negative Urine Ketones Trace Urine Blood Negative Urine Nitrite Negative Ur Leukocyte Esterase Small (1+) H Urine RBC 0-2 Urine WBC 0-5 Ur Squamous Epith Cells 0-2 Other Crystals Present Urine Bacteria None Seen Hyaline Casts 6-10 COVID-19 (SIM) COVID-19 Clin Com 08/24/22 08/24/22 08/24/22 06:00 06:52 06:55 MCV MCH MCHC RDW Plt Count MPV Immature Gran % (Auto) Neut % (Auto) Lymph % (Auto) [place] % (Auto) Eos % (Auto) Baso % (Auto) Lymph # (Auto) [place] # (Auto) Eos # (Auto) Baso # (Auto) Abs Immat Gran (auto) Absolute Neuts (auto) Absolute Nucleated RBC Nucleated RBC % (auto) Anion Gap 14 Estim Creat Clear Calc 12.6 Estimated GFR 12 POC Glucose 195 H 131 H Random Glucose 133 H Calcium 8.8 D Magnesium Total Bilirubin AST ALT Alkaline Phosphatase Total Protein Albumin Lipase Urine Color Urine Appearance Urine pH Ur Specific Leon Urine Protein Urine Glucose (UA) Urine Ketones Urine Blood Urine Nitrite Ur Leukocyte Esterase Urine RBC Urine WBC Ur Squamous Epith Cells Other Crystals Urine Bacteria Hyaline Casts COVID-19 (SIM) COVID-19 Clin Com Imaging Radiologist's Impressions: Impressions Abdomen/Pelvis CT 08/24/22 03:00 IMPRESSION: No acute findings in the abdomen or pelvis. No hydronephrosis. Nonobstructing right renal calculi. Fleischner guidelines were followed. Assessment and Plan (1) Acute hyperkalemia: Status: Acute (2) Acute kidney injury superimposed on CKD: Status: Acute Plan Pt is an 82-year-old female with a PMH significant for?CKD3, paroxysmal AFib on warfarin, HLD, HTN, mitral valve replacement, and COPD who presents to the ED with 3-4 months of chronic diarrhea. Pt will be admitted to the hospital for treatment and management of hyperkalemia and ARIADNA on CKD3. Hyperkalemia Patient's presenting potassium was 7.3 with repeats of 6.6 and 5.8 No evidence of EKG changes Likely secondary to dehydration, ARIADNA on CKD, and continuing to take her potassium chloride and furosemide Pt received VF, Lokelma x2, sodium bicarbonate x2, dextrose, and insulin in ED Hold home potassium chloride Admit to telemetry ARIADNA on CKD3 Patient's presenting creatinine was 4.54 with repeats 4.05 and 3.77 Likely secondary to dehydration from GI losses and poor oral intake IVF: normal saline Renal studies: urine creatinine, electrolytes, microalbumin PVR Qshift Hold olmesartan, furosemide Nephrology consult Monitor BMP Elevated lipase Patient's lipase was 186 upon presentation Unclear etiology CT of abdomen and pelvis found unremarkable pancreas Paroxysmal AFib on Coumadin Continue Coumadin, atenolol HTN Continue amlodipine COPD Not in acute exacerbation Home inhaler prn Full Code Attending:?Dr. Humphrey DVT Prophylaxis: on warfarin Pt will require a hospitalization of at least two nights for treatment and management of hyperkalemia and ARIADNA on CKD3. Time Spent With Patient Time: Total time managing care of this patient today ____ minutes. Quality Stroke Does the patient have a stroke diagnosis?: No VTE Prior VTE?: No VTE Risk Level:: Medical - moderate - high VTE Device Contraindication: Treatment Not Indicated VTE Drug Contraindication: N/A - Med Ordered
[2022-08-24] MEDS: atenoloL 50 MG TABLET PO (12:47)
[2022-08-24] MEDS: Atorvastatin Calcium 80 MG TABLET PO (12:48)
[2022-08-24] MEDS: amLODIPine Besylate 2.5 MG TABLET PO (12:48)
[2022-08-24] MEDS: 0.9 % Sodium Chloride 1,000 ML 100 ML IVCONT (12:50)
[2022-08-24 14:15] LABS: Prothrombin Time 89.9 SEC (10.0-13.1)
[2022-08-24 14:18] LABS: INTERNATIONAL NORM RATIO 7.2 (0.9-1.1)
--- NOTE | 2022-08-24 16:30 | P.EN_ITS ---
Event Note Date of Service: 08/25/22 Event Note: This patient is seen and examined with APC. 82-year-old female with a PMH significant for?CKD3, paroxysmal AFib on warfarin, HLD, HTN, mitral valve replacement, and COPD who presents to the ED with 3-4 months of chronic diarrhea. Patient said that her last bowel movement was yesterday, she said also that she has not eating well from 3-4 weeks she has very poor historian Accept from that she denies any nausea vomiting or abdominal pain or fever chill s. She denies any cough or phlegm In the ED she was having borderline blood pressure, found to have hyperkalemia, creatinine significantly elevated than baseline. Patient was given-?IVF, Lokelma x2, sodium bicarbonate x2, dextrose, and insulin. Potassium is improving 5.8 range, added another lokalema dose. Patient was sent to the floor-she had passed urine as per staff. Lab imaging, EKG reviewed. CBC seems fine, hemoglobin 11.7, BMP initial potassium was 7.3 range-after above mentioned treatment: Patient potassium was 5.8, received in a additional Lokelma. CT of the abdomen seems fine, bibasilar atelactsis EKG-shows grossly AFib. inr 7.2 Patient also had borderline blood pressure in ED. Albumin borderline Physical exam and assessment and plan coordinated in APCs note, Agree with the plan in addition: vasu on ckd stage 3 : Multifactorial(poor oral intake, diarrhea, multiple blood pressure and medication including Garrison, diuretics) Will start normal saline Urine studies, PVRs, CT abdomen renal seems okay Diarrhea: Will add stool studies repeat BMP now groin fungal rash-added nystatin/clotrimazole Monitor blood pressure closely as well as electrolytes and renal function, as well as respiratory status closely. Patient was strongly encouraged for p.o. intake. Nephrology evaluation When she gets better, morbid obesity rodriguez: Need to lose some weight . above is d/w patient and her family in detail Time Spent With Patient Time: Total time managing care of this patient today ____ minutes.
[2022-08-24] MEDS: Omeprazole 20 MG CAPSULE.DR PO (17:08)
[2022-08-24] MEDS: Albumin Human 25 % 100 ML 133.33 ML IV ×2 (17:20→18:21)
[2022-08-24] MEDS: Sodium Bicarbonate 650 MG TABLET PO ×2 (17:48→21:59)
--- NOTE | 2022-08-24 19:45 | PC.NURSE ---
per Dr Humphrey order, IV push Sodium Bicarb will be given after BMP lab completed for low carbon dioxide, but they have not came back yet. Report given to JENNIFER Olivarez and Dr Guallpa notified. will given when results are in.
[2022-08-24 20:20] LABS: Anion Gap 16 (12-20); Blood Urea Nitrogen 67 mg/dL (9-16); Calcium 9.1 mg/dL (8.4-10.2); Carbon Dioxide 13 mmol/L (22-29); Chloride 125 mmol/L (96-108); Estimated Glomerular Filt Rate 18; Glucose Random 124 mg/dL (60-115); Potassium 4.7 mmol/L (3.3-5.1); Sodium 149 mmol/L (135-145)
[2022-08-24] MEDS: Clotrimazole 1 % Cream 15 GM TUBE 1 APPL TOPICAL (22:00)
[2022-08-24] MEDS: Nystatin Powder 15 GM BOTTLE 1 APPL TOPICAL (22:00)
[2022-08-24] MEDS: 0.9 % Sodium Chloride Flush 3 ML SYRINGE IVFLUSH (22:00)
[2022-08-24] MEDS: Sodium Bicarbonate 8.4% 150 MEQ in Dextrose 5 % 850 ML 50 MEQ IV (23:14)
[2022-08-25] VITALS (7 sets, daily range): BP systolic 102–136; BP diastolic 48–79; PULSE 81–92; RESP 18–20; TEMP 36.1–36.7; O2SAT 94–97
[2022-08-25 00:20] LABS: Anion Gap 12 (12-20); Blood Urea Nitrogen 58 mg/dL (9-16); Calcium 8.7 mg/dL (8.4-10.2); Carbon Dioxide 19 mmol/L (22-29); Chloride 123 mmol/L (96-108); Creatinine Clr Calc Pharmacy 23.5; Estimated Glomerular Filt Rate 23; Glucose Random 99 mg/dL (60-115); Potassium 4.1 mmol/L (3.3-5.1); Sodium 150 mmol/L (135-145)
[2022-08-25 04:19] LABS: Potassium Urine Random 50.2 mmol/L
[2022-08-25] MEDS: Omeprazole 20 MG CAPSULE.DR PO ×2 (06:17→16:40)
[2022-08-25 06:50] LABS: Prothrombin Time 70.1 SEC (10.0-13.1)
[2022-08-25 06:59] LABS: INTERNATIONAL NORM RATIO 5.7 (0.9-1.1)
[2022-08-25 06:59] LABS: Anion Gap 15 (12-20); Blood Urea Nitrogen 53 mg/dL (9-16); Calcium 8.9 mg/dL (8.4-10.2); Carbon Dioxide 20 mmol/L (22-29); Chloride 121 mmol/L (96-108); Creatinine Clr Calc Pharmacy 29.1; Estimated Glomerular Filt Rate 29; Glucose Random 113 mg/dL (60-115); Potassium 3.7 mmol/L (3.3-5.1); Sodium 152 mmol/L (135-145)
--- NOTE | 2022-08-25 08:19 | MHC.CM.PN ---
CM met with Patient at bedside and addressed IMM with her, providing her with the original and placing a copy on the chart. Patient lives in a house with her and she uses a cane at times. Patient required no services HOME HEALTH CARE COORDINATOR and home/self care is the goal. CM has initiated and will follow for dc planning. Patient has received Covid vax x5 and her PCP is Dr. Kiesha Macedo.
[2022-08-25] MEDS: Atorvastatin Calcium 80 MG TABLET PO (08:29)
[2022-08-25] MEDS: Magnesium Oxide 400 MG TABLET PO ×2 (08:29→16:40)
[2022-08-25] MEDS: Nystatin Powder 15 GM BOTTLE 1 APPL TOPICAL ×3 (08:29→21:39)
[2022-08-25] MEDS: Sodium Bicarbonate 650 MG TABLET PO ×4 (08:29→21:37)
[2022-08-25] MEDS: Dextrose 5 % 1,000 ML 80 ML IVCONT (08:29)
[2022-08-25] MEDS: Clotrimazole 1 % Cream 15 GM TUBE 1 APPL TOPICAL ×2 (08:30→21:39)
--- NOTE | 2022-08-25 13:22 | PM.CNNEP ---
History of Present Illness Reason for Consult Consult date: 08/25/22 Chief Complaint Chief complaint: Hyperkalemia ARIADNA on CKD History of Present Illness Narrative: 82-year-old female with a history of?CKD presented to the ED with 3-4 months of chronic diarrhea found to have worsening kidney function and elevated serum potassium. She complains of poor oral intake for for the last few weeks. She denies fever, chills, chest pain, shortness of breath, nausea vomiting or abdominal pain. Review of her vital signs showed low blood pressure with SBP down to the 90. Review of Systems Review of Systems 10 points ROS negative except for pertinent in HPI PMFSH Past Medical History Medical History A-fib COPD (chronic obstructive pulmonary disease) HTN (hypertension) Hyperlipidemia Hyperparathyroidism due to vitamin D deficiency Nephrolithiasis, uric acid GORDON (obstructive sleep apnea) Osteoporosis Pulmonary HTN Severe mitral regurgitation Thiamine deficiency Family History Family History Father No problems noted. Mother No problems noted. Maternal Aunt Breast cancer Surgical History Surgical History History of open reduction and internal fixation (ORIF) procedure Hx of hernia repair Social History Social History Household Members: Spouse Housing: House Alcohol intake: never Patient Tobacco Use Status: Former Tobacco user e-Cigarette/Vaping Use: Never Used Second Hand Smoke Exposure: No service: No Current occupational status: retired Cognitive needs: No Hearing needs: No Vision needs: No Meds Allergies Allergy/AdvReac Type Severity Reaction Status Date / Time acetaminophen [From Vicodin] Allergy Intermediate per patient Verified 08/21/22 09:23 hydrocodone [From Vicodin] Allergy Mild CHEST PAIN Verified 08/21/22 09:23 Active Medications: Current Medications Albuterol Sulfate (Albuterol Sulfate 90 Mcg 8 Gm Inhaler) 2 puff INHALE Q4H PRN PRN Reason: SHORTNESS OF BREATH Amlodipine Besylate (Amlodipine Besylate 2.5 Mg Tablet) 2.5 mg PO DAILY VIOLETA; Protocol Last Admin: 08/24/22 12:48 Dose: 2.5 mg Atenolol (Atenolol 50 Mg Tablet) 50 mg PO DAILY [facility]; Protocol Last Admin: 08/24/22 12:47 Dose: 50 mg Atorvastatin Calcium (Atorvastatin Calcium 80 Mg Tablet) 80 mg PO DAILY [facility] Last Admin: 08/25/22 08:29 Dose: 80 mg Clotrimazole (Clotrimazole 1 % Cream 15 Gm Tube) 1 appl TOPICAL BID [facility]; Protocol Last Admin: 08/25/22 08:30 Dose: 1 appl Docusate Sodium (Docusate Sodium 100 Mg Capsule) 100 mg PO DAILY PRN PRN Reason: Constipation Dextrose (D5w) 1,000 mls @ 80 mls/hr IVCONT .[id number] [facility] Last Admin: 08/25/22 08:29 Dose: 80 mls/hr Magnesium Oxide (Magnesium Oxide 400 Mg Tablet) 400 mg PO BIDPC [facility] Last Admin: 08/25/22 08:29 Dose: 400 mg Nystatin (Nystatin Powder 15 Gm Bottle) 1 appl TOPICAL TID [facility]; Protocol Last Admin: 08/25/22 08:29 Dose: 1 appl Omeprazole (Omeprazole 20 Mg Capsule.Dr) 20 mg PO BID@0630,1630 [facility] Last Admin: 08/25/22 06:17 Dose: 20 mg Ondansetron HCl (Ondansetron Hcl 4 Mg/2 Ml Vial) 4 mg IVPUSH Q8H PRN PRN Reason: Nausea and Vomiting Pharmacy Consult (Consult Rx Perform Med Rec) 1 each MISCELLANE ONCE PRN PRN Reason: Consult order Sodium Bicarbonate (Sodium Bicarbonate 650 Mg Tablet) 650 mg PO QID [facility] Last Admin: 08/25/22 08:29 Dose: 650 mg Sodium Chloride (0.9 % Sodium Chloride Flush 3 Ml Syringe) 3 ml IVFLUSH QSHIFT [facility] Last Admin: 08/25/22 08:29 Dose: Not Given Home Medications Medication Instructions Recorded Confirmed Last Taken Type albuterol sulfate 90 mcg/actuation 2 puff inhalation Q4-6H PRN 08/24/22 08/24/22 Unknown History aerosol inhaler amlodipine 2.5 mg tablet 2.5 mg PO DAILY 08/24/22 08/24/22 Unknown History atenolol 50 mg tablet 50 mg PO DAILY 08/24/22 08/24/22 Unknown History atorvastatin 80 mg tablet 80 mg PO DAILY 08/24/22 08/24/22 Unknown History furosemide 40 mg tablet 40 mg PO BID 08/24/22 08/24/22 Unknown History olmesartan 40 mg tablet 40 mg PO DAILY 08/24/22 08/24/22 Unknown History omeprazole 20 mg capsule,delayed 20 mg PO BID 08/24/22 08/24/22 Unknown History release potassium chloride 20 mEq 20 meq PO BID 08/24/22 08/24/22 Unknown History tablet,extended release warfarin 2.5 mg tablet 2.5 mg PO DAILY@1200 08/24/22 08/24/22 Unknown History Physical Exam Vital Signs: Last Vital Signs Temp 97.8 F 08/25/22 07:28 Pulse 88 08/25/22 07:28 Resp 20 08/25/22 07:28 BP 120/56 L 08/25/22 07:28 Pulse Ox 95 08/25/22 07:28 O2 Del Method Room Air 08/25/22 07:28 BMI result Body Mass Index 37.1 Const General: no acute distress HEENT Head: Yes normocephalic and Yes atraumatic Neck Neck: Yes supple Resp Auscultation: clear to auscultation bilaterally Cardio Heart sounds: S1 normal heart sound present and S2 normal heart sound present GI Palpation (GI): Soft to palpation and nontender Extrem Right lower extremity: no edema Left lower extremity: no edema Results Lab Results 08/24/22 01:41 08/25/22 06:26 Lab results: Chemistry 08/24/22 08/24/22 08/24/22 01:42 04:57 06:55 Sodium 145 147 H 145 Potassium 7.3 H* D 6.6 H* 5.8 H Carbon Dioxide 12 L 12 L 13 L BUN 89 H 85 H 81 H Creatinine 4.54 H* 4.05 H* 3.77 H Calcium 9.4 9.6 8.8 D 08/24/22 08/24/22 08/25/22 19:40 23:55 06:26 Sodium 149 H 150 H 152 H Potassium 4.7 4.1 3.7 Carbon Dioxide 13 L 19 L 20 L BUN 67 H 58 H 53 H Creatinine 2.59 H 2.09 H 1.69 H Calcium 9.1 8.7 8.9 08/25/22 06:26 Sodium Cancelled Potassium Cancelled Carbon Dioxide Cancelled BUN Cancelled Creatinine Cancelled Calcium Cancelled Hematology 08/24/22 01:41 WBC 6.7 Hgb 11.7 L Plt Count 129 L D Urinalysis 08/24/22 04:15 Urine Color Yellow Urine Appearance Clear Urine pH 5.0 Ur Specific [place] 1.010 Urine Protein Negative Urine Glucose (UA) Negative Urine Ketones Trace Urine Blood Negative Urine Nitrite Negative Ur Leukocyte Esterase Small (1+) H Urine RBC 0-2 Urine WBC 0-5 Ur Squamous Epith Cells 0-2 Hyaline Casts 6-10 Urine Studies 08/24/22 04:15 Urine Creatinine 99.80 Assessment and Plan (1) ARIADNA (acute kidney injury): Status: Acute (2) Hypernatremia: Status: Acute (3) Metabolic acidosis: Status: Acute (4) CKD (chronic kidney disease) stage 3, GFR 30-59 ml/min: Status: Acute Plan ARIADNA due to renal hypoperfusion hypotensive CT scan negative for hydronephrosis benign urine sediment elevated serum sodium due to free water deficit known CKD baseline Scr ~ 1.5 mg/dl metabolic acidosis due to GI losses REC discontinue bicarbonate drip hypotonic fluid follow kidney function and electrolytes Time Spent With Patient Time: Total time managing care of this patient today ____ minutes. Procedures Date of Service Date of Service: 08/25/22
[2022-08-25 14:00] LABS: Anion Gap 12 (12-20); Blood Urea Nitrogen 44 mg/dL (9-16); Calcium 8.8 mg/dL (8.4-10.2); Carbon Dioxide 22 mmol/L (22-29); Chloride 117 mmol/L (96-108); Creatinine Clr Calc Pharmacy 31.7; Estimated Glomerular Filt Rate 32; Glucose Random 189 mg/dL (60-115); Potassium 3.3 mmol/L (3.3-5.1); Sodium 148 mmol/L (135-145)
--- NOTE | 2022-08-25 16:29 | HO.PM.IMPN ---
Subjective Subjective Date of Service: 08/25/22 Interval History: Hyponatremia,inr supratherapeutic Review of Systems Denies any chest pain or shortness of breath or abdominal pain or nausea vomiting Physical Exam Vital Signs: Vital Signs: Last Vital Signs Temp 96.9 F 08/25/22 15:18 Pulse 87 08/25/22 15:18 Resp 18 08/25/22 15:18 BP 107/52 L 08/25/22 15:18 Pulse Ox 96 08/25/22 15:18 O2 Del Method Room Air 08/25/22 15:18 BMI result Body Mass Index 37.1 Appearance: Alert.? Oriented X3.? not in distress.? cvs: [id number], [id number] , no murmur res: clear to auscultation ,no rhonchii or wheezing abd: no rebound or guarding ,nt, bs present. ext pulses present , no cyanosis . neuro: axo3 , nonfocal. Objective Data Active Medications Albuterol Sulfate (Albuterol Sulfate 90 Mcg 8 Gm Inhaler) 2 puff INHALE Q4H PRN PRN Reason: SHORTNESS OF BREATH Amlodipine Besylate (Amlodipine Besylate 2.5 Mg Tablet) 2.5 mg PO DAILY [facility]; Protocol Last Admin: 08/24/22 12:48 Dose: 2.5 mg Documented By: NIKITA Atenolol (Atenolol 50 Mg Tablet) 50 mg PO DAILY [facility]; Protocol Last Admin: 08/24/22 12:47 Dose: 50 mg Documented By: NIKITA Atorvastatin Calcium (Atorvastatin Calcium 80 Mg Tablet) 80 mg PO DAILY [facility] Last Admin: 08/25/22 08:29 Dose: 80 mg Documented By: SEAN Clotrimazole (Clotrimazole 1 % Cream 15 Gm Tube) 1 appl TOPICAL BID [facility]; Protocol Last Admin: 08/25/22 08:30 Dose: 1 appl Documented By: SEAN Docusate Sodium (Docusate Sodium 100 Mg Capsule) 100 mg PO DAILY PRN PRN Reason: Constipation Dextrose (D5w) 1,000 mls @ 80 mls/hr IVCONT .[id number] [facility] Last Admin: 08/25/22 08:29 Dose: 80 mls/hr Documented By: SEAN Magnesium Oxide (Magnesium Oxide 400 Mg Tablet) 400 mg PO BIDPC [facility] Last Admin: 08/25/22 08:29 Dose: 400 mg Documented By: SEAN Nystatin (Nystatin Powder 15 Gm Bottle) 1 appl TOPICAL TID [facility]; Protocol Last Admin: 08/25/22 13:37 Dose: 1 appl Documented By: SEAN Omeprazole (Omeprazole 20 Mg Capsule.Dr) 20 mg PO BID@0630,1630 [facility] Last Admin: 08/25/22 06:17 Dose: 20 mg Documented By: CASSIA Ondansetron HCl (Ondansetron Hcl 4 Mg/2 Ml Vial) 4 mg IVPUSH Q8H PRN PRN Reason: Nausea and Vomiting Pharmacy Consult (Consult Rx Perform Med Rec) 1 each MISCELLANE ONCE PRN PRN Reason: Consult order Sodium Bicarbonate (Sodium Bicarbonate 650 Mg Tablet) 650 mg PO QID [facility] Last Admin: 08/25/22 13:37 Dose: 650 mg Documented By: SEAN Sodium Chloride (0.9 % Sodium Chloride Flush 3 Ml Syringe) 3 ml IVFLUSH QSHIFT [facility] Last Admin: 08/25/22 08:29 Dose: Not Given Documented By: SEAN Non-Admin Reason: IV Running Labs 08/24/22 01:41 08/25/22 13:19 Labs: Laboratory Results - last 24 hr 08/24/22 08/24/22 08/24/22 04:15 19:40 23:55 PT INR Anion Gap 16 12 Estim Creat Clear Calc 19.0 23.5 Estimated GFR 18 23 Random Glucose 124 H 99 Calcium 9.1 8.7 Ur Random Sodium 65.0 Ur Random Potassium 50.2 Ur Random Chloride 101.0 Urine Creatinine 99.80 08/25/22 08/25/22 08/25/22 06:26 06:26 06:27 PT 70.1 H INR 5.7 H* Anion Gap 15 Cancelled Estim Creat Clear Calc 29.1 Cancelled Estimated GFR 29 Cancelled Random Glucose 113 Cancelled Calcium 8.9 Cancelled Ur Random Sodium Ur Random Potassium Ur Random Chloride Urine Creatinine 08/25/22 13:19 PT INR Anion Gap 12 Estim Creat Clear Calc 31.7 Estimated GFR 32 Random Glucose 189 H Calcium 8.8 Ur Random Sodium Ur Random Potassium Ur Random Chloride Urine Creatinine Microbiology Microbiology Results: Microbiology 08/24/22 Unknown Urine Culture - Final Urine clean catch - Urine etienne top Assessment and Plan (1) CKD (chronic kidney disease) stage 3, GFR 30-59 ml/min: Status: Acute (2) Metabolic acidosis: Status: Acute (3) Hypernatremia: Status: Acute (4) ARIADNA (acute kidney injury): Status: Acute (5) Acute kidney injury superimposed on CKD: Status: Acute (6) Acute hyperkalemia: Status: Acute (7) Obesity: Status: Acute Plan 82-year-old female with a PMH significant for?CKD3, paroxysmal AFib on warfarin, HLD, HTN, mitral valve replacement, and COPD who presents to the ED with 3-4 months of chronic diarrhea. Pt will be admitted to the hospital for treatment and management of hyperkalemia and ARIADNA on CKD3. Hyperkalemia Received Lokelma, insulin ,bicarb drip yesterday seems to be improved significantly moniter on tele, bmp ARIADNA on CKD3 Received hydration creatinine came back to 1.5 range. Renal studies: urine creatinine, electrolytes, microalbumin PVR Qshift Nephrology consult-ARIADNA probably related to hypoperfusion.Hold olmesartan, furosemide .Monitor BMP. Hypernatremia: Probably related to poor oral intake Given D5W, sodium came back to 148 range-will recheck BMP in the evening. added free water 250 ml q4hr Elevated lipase Patient's lipase was 186 upon presentation Unclear etiology CT of abdomen and pelvis found unremarkable pancreas Paroxysmal AFib on Coumadin hr seems fine , bp still boderline Continue Coumadin, will start atenolol in am HTN Continue amlodipine COPD Not in acute exacerbation Home inhaler prn paroxysmal AFib,mvr: on warfarin, INR supratherapeutic Hold warfarin today. Will recheck the INR in the morning Candidal rash in perineum area: Continue nystatin, clotrimazole. Obesity : Encouraged to lose weight. Full Code DVT Prophylaxis: on warfarin inpatient need: hyperkalemia,hypernatremia and ARIADNA on CKD3-need hydration, renal function and electrolyte monitoring. Also INR is supratherapeutic need INR monitoring . Time Spent With Patient Time: Total time managing care of this patient today ____ minutes. Quality Stroke Does the patient have a stroke diagnosis?: No VTE Prior VTE?: No VTE Risk Level:: Medical - moderate - high VTE Device Contraindication: Treatment Not Indicated VTE Drug Contraindication: N/A - Med Ordered
[2022-08-25 21:26] LABS: Anion Gap 16 (12-20); Blood Urea Nitrogen 41 mg/dL (9-16); Calcium 8.7 mg/dL (8.4-10.2); Carbon Dioxide 18 mmol/L (22-29); Chloride 117 mmol/L (96-108); Creatinine Clr Calc Pharmacy 33.7; Estimated Glomerular Filt Rate 34; Glucose Random 95 mg/dL (60-115); Potassium 3.8 mmol/L (3.3-5.1); Sodium 147 mmol/L (135-145)
[2022-08-25] MEDS: Metoprolol Tartrate 12.5 MG HALFTAB PO (21:37)
[2022-08-25] MEDS: 0.9 % Sodium Chloride Flush 3 ML SYRINGE IVFLUSH (21:38)
[2022-08-26 03:49] VITALS: BP 131/66; PULSE 87; RESP 20; TEMP 36.8; O2SAT 96
[2022-08-26] MEDS: Omeprazole 20 MG CAPSULE.DR PO ×2 (05:30→16:12)
[2022-08-26 05:42] LABS: CDiff Gene PCR NEGATIVE (Negative)
[2022-08-26 06:09] LABS: Leukocytes Stool Qualitative FEW: < 2/OIF (NEGATIVE)
[2022-08-26 07:49] LABS: INTERNATIONAL NORM RATIO 4.5 (0.9-1.1); Prothrombin Time 55.5 SEC (10.0-13.1)
[2022-08-26 07:53] VITALS: BP 135/71; PULSE 88; RESP 20; TEMP 36.6; O2SAT 96
--- NOTE | 2022-08-26 08:24 | PM.PNNEP ---
Subjective Subjective Date of Service: 08/26/22 Interval history: seen and examined sitting out of bed no complaints Physical Exam Vital Signs: Vital Signs: Last Vital Signs Temp 97.8 F 08/26/22 07:53 Pulse 88 08/26/22 07:53 Resp 20 08/26/22 07:53 BP 135/71 08/26/22 07:53 Pulse Ox 96 08/26/22 07:53 O2 Del Method Room Air 08/26/22 07:53 BMI result Body Mass Index 37.1 Const: General: no acute distress HEENT: Head: Yes normocephalic and Yes atraumatic Neck: Neck: Yes supple Resp: Auscultation: clear to auscultation bilaterally Cardio: Heart sounds: S1 normal heart sound present and S2 normal heart sound present GI: Palpation (GI): Soft to palpation and nontender Extrem: Right lower extremity: no edema Left lower extremity: no edema Objective Data Labs 08/24/22 01:41 08/25/22 20:08 Labs: Laboratory Results - last 24 hr 08/25/22 08/25/22 08/26/22 13:19 20:08 04:15 PT INR Sodium 148 H 147 H Potassium 3.3 3.8 Chloride 117 H 117 H Carbon Dioxide 22 18 L Anion Gap 12 16 BUN 44 H 41 H Creatinine 1.55 H 1.46 H Estim Creat Clear Calc 31.7 33.7 Estimated GFR 32 34 Random Glucose 189 H 95 Calcium 8.8 8.7 Stool Leukocytes, Qual FEW: < 2/OIF C. difficile Tox B Gene 08/26/22 08/26/22 04:15 06:39 PT 55.5 H INR 4.5 H Sodium Potassium Chloride Carbon Dioxide Anion Gap BUN Creatinine Estim Creat Clear Calc Estimated GFR Random Glucose Calcium Stool Leukocytes, Qual C. difficile Tox B Gene NEGATIVE Microbiology Microbiology Results: Microbiology 08/24/22 Unknown Urine clean catch - Urine etienne top Urine Culture - Final Procedures Date of Service Date of Service: 08/26/22 Assessment & Plan Assessment and plan (1) ARIADNA (acute kidney injury): Status: Acute (2) Hypernatremia: Status: Acute (3) Metabolic acidosis: Status: Acute (4) CKD (chronic kidney disease) stage 3, GFR 30-59 ml/min: Status: Acute Plan kidney function back to baseline mild free water deficit ARIADNA due to renal hypoperfusion resolved hypotensive earlier CT scan negative for hydronephrosis benign urine sediment known CKD baseline Scr ~ 1.5 mg/dl metabolic acidosis due to GI losses REC hypotonic fluid follow kidney function and electrolytes Time Spent With Patient Time: Total time managing care of this patient today ____ minutes. Progress Note: Quality Stroke Does the patient have a stroke diagnosis?: No
[2022-08-26] MEDS: Dextrose 5 % 1,000 ML 50 ML IVCONT (09:09)
[2022-08-26] MEDS: 0.9 % Sodium Chloride Flush 3 ML SYRINGE IVFLUSH ×2 (09:09→20:20)
[2022-08-26] MEDS: Sodium Bicarbonate 650 MG TABLET PO ×4 (09:10→20:19)
[2022-08-26] MEDS: Magnesium Oxide 400 MG TABLET PO (09:10)
[2022-08-26] MEDS: Clotrimazole 1 % Cream 15 GM TUBE 1 APPL TOPICAL ×2 (09:10→20:19)
[2022-08-26] MEDS: Nystatin Powder 15 GM BOTTLE 1 APPL TOPICAL ×3 (09:10→20:19)
[2022-08-26] MEDS: Metoprolol Tartrate 12.5 MG HALFTAB PO ×2 (09:10→20:19)
[2022-08-26] MEDS: Atorvastatin Calcium 80 MG TABLET PO (09:10)
[2022-08-26 11:26] VITALS: BP 122/63; PULSE 86; RESP 20; TEMP 36.6; O2SAT 94
--- NOTE | 2022-08-26 12:59 | HO.PM.IMPN ---
Subjective Subjective Date of Service: 08/26/22 Interval History: Hypernatremia,inr supratherapeutic Review of Systems Hyponatremia,inr supratherapeutic Physical Exam Vital Signs: Vital Signs: Last Vital Signs Temp 97.9 F 08/26/22 11:26 Pulse 86 08/26/22 11:26 Resp 20 08/26/22 11:26 BP 122/63 08/26/22 11:26 Pulse Ox 94 08/26/22 11:26 O2 Del Method Room Air 08/26/22 11:26 BMI result Body Mass Index 37.1 Appearance: Alert.? Oriented X3.? not in distress.? cvs: [id number], [id number] , no murmur res: clear to auscultation ,no rhonchii or wheezing abd: no rebound or guarding ,nt, bs present. ext pulses present , no cyanosis . neuro: axo3 , nonfocal. Objective Data Active Medications Albuterol Sulfate (Albuterol Sulfate 90 Mcg 8 Gm Inhaler) 2 puff INHALE Q4H PRN PRN Reason: SHORTNESS OF BREATH Amlodipine Besylate (Amlodipine Besylate 2.5 Mg Tablet) 2.5 mg PO DAILY [facility]; Protocol Last Admin: 08/24/22 12:48 Dose: 2.5 mg Documented By: NIKITA Atenolol (Atenolol 50 Mg Tablet) 50 mg PO DAILY [facility]; Protocol Last Admin: 08/24/22 12:47 Dose: 50 mg Documented By: NIKITA Atorvastatin Calcium (Atorvastatin Calcium 80 Mg Tablet) 80 mg PO DAILY [facility] Last Admin: 08/26/22 09:10 Dose: 80 mg Documented By: SEAN Clotrimazole (Clotrimazole 1 % Cream 15 Gm Tube) 1 appl TOPICAL BID [facility]; Protocol Last Admin: 08/26/22 09:10 Dose: 1 appl Documented By: SEAN Docusate Sodium (Docusate Sodium 100 Mg Capsule) 100 mg PO DAILY PRN PRN Reason: Constipation Dextrose (D5w) 1,000 mls @ 50 mls/hr IVCONT .Q20H [facility] Last Admin: 08/26/22 09:09 Dose: 50 mls/hr Documented By: SEAN Magnesium Oxide (Magnesium Oxide 400 Mg Tablet) 400 mg PO BIDPC [facility] Last Admin: 08/26/22 09:10 Dose: 400 mg Documented By: SEAN Metoprolol Tartrate (Metoprolol Tartrate 12.5 Mg Halftab) 12.5 mg PO BID [facility]; Protocol Last Admin: 08/26/22 09:10 Dose: 12.5 mg Documented By: SEAN Nystatin (Nystatin Powder 15 Gm Bottle) 1 appl TOPICAL TID [facility]; Protocol Last Admin: 08/26/22 09:10 Dose: 1 appl Documented By: SEAN Omeprazole (Omeprazole 20 Mg Capsule.) 20 mg PO BID@0630,1630 [facility] Last Admin: 08/26/22 05:30 Dose: 20 mg Documented By: CASSIA Ondansetron HCl (Ondansetron Hcl 4 Mg/2 Ml Vial) 4 mg IVPUSH Q8H PRN PRN Reason: Nausea and Vomiting Pharmacy Consult (Consult Rx Perform Med Rec) 1 each MISCELLANE ONCE PRN PRN Reason: Consult order Sodium Bicarbonate (Sodium Bicarbonate 650 Mg Tablet) 650 mg PO QID [facility] Last Admin: 08/26/22 09:10 Dose: 650 mg Documented By: SEAN Sodium Chloride (0.9 % Sodium Chloride Flush 3 Ml Syringe) 3 ml IVFLUSH QSHIFT [facility] Last Admin: 08/26/22 09:09 Dose: 3 ml Documented By: SEAN Labs 08/24/22 01:41 08/25/22 20:08 Labs: Laboratory Results - last 24 hr 08/25/22 08/25/22 08/26/22 13:19 20:08 04:15 PT INR Anion Gap 12 16 Estim Creat Clear Calc 31.7 33.7 Estimated GFR 32 34 Random Glucose 189 H 95 Calcium 8.8 8.7 Stool Leukocytes, Qual FEW: < 2/OIF C. difficile Tox B Gene 08/26/22 08/26/22 04:15 06:39 PT 55.5 H INR 4.5 H Anion Gap Estim Creat Clear Calc Estimated GFR Random Glucose Calcium Stool Leukocytes, Qual C. difficile Tox B Gene NEGATIVE Microbiology Microbiology Results: Microbiology 08/24/22 Unknown Urine Culture - Final Urine clean catch - Urine etienne top Assessment and Plan (1) CKD (chronic kidney disease) stage 3, GFR 30-59 ml/min: Status: Acute (2) Metabolic acidosis: Status: Acute (3) Hypernatremia: Status: Acute (4) ARIADNA (acute kidney injury): Status: Acute (5) Acute kidney injury superimposed on CKD: Status: Acute (6) Acute hyperkalemia: Status: Acute (7) Obesity: Status: Acute Plan 82-year-old female with a PMH significant for?CKD3, paroxysmal AFib on warfarin, HLD, HTN, mitral valve replacement, and COPD who presents to the ED with 3-4 months of chronic diarrhea. Pt will be admitted to the hospital for treatment and management of hyperkalemia and ARIADNA on CKD3. ARIADNA on CKD3 Received hydration creatinine came back to 1.4 range. Hyperkalemia Received Lokelma, insulin ,bicarb drip yesterday seems to be improved significantly moniter on tele, bmp Nephrology consult-ARIADNA probably related to hypoperfusion.Hold olmesartan, furosemide .Monitor BMP. Hypernatremia: Probably related to poor oral intake Given D5W, sodium came back to 147 range this mornin free water 250 ml q4hr moniter bmp today afternoon. Elevated lipase Patient's lipase was 186 upon presentation Unclear etiology CT of abdomen and pelvis found unremarkable pancreas Paroxysmal AFib on Coumadin hr seems fine , bp still boderline Continue Coumadin, will start atenolol in am HTN Continue amlodipine COPD Not in acute exacerbation Home inhaler prn paroxysmal AFib,mvr: on warfarin, INR supratherapeutic Hold warfarin today. Will recheck the INR in the morning Candidal rash in perineum area: Continue nystatin, clotrimazole. Obesity : Encouraged to lose weight. Full Code DVT Prophylaxis: on warfarin inpatient need: hyperkalemia,hypernatremia and ARIADNA on CKD3-need hydration, renal function and electrolyte monitoring. Also INR is supratherapeutic need INR monitoring . Time Spent With Patient Time: Total time managing care of this patient today ____ minutes. Quality Stroke Does the patient have a stroke diagnosis?: No VTE Prior VTE?: No VTE Risk Level:: Medical - moderate - high VTE Device Contraindication: Treatment Not Indicated VTE Drug Contraindication: N/A - Med Ordered
[2022-08-26 14:24] LABS: Adenovirus F 40/41 Not Detected (Not Detect.); Astrovirus Not Detected (Not Detect.); Campylobacter Not Detected (Not Detect.); Cryptosporidium Not Detected (Not Detect.); Cyclospora cayetanensis Not Detected (Not Detect.); E. coli EAEC Not Detected (Not Detect.); E. coli EPEC Not Detected (Not Detect.); E. coli ETEC Not Detected (Not Detect.); E. coli STEC Not Detected (Not Detect.); Entamoeba histolytica Not Detected (Not Detect.); Giardia lamblia Not Detected (Not Detect.); Plesiomonas shigelloides Not Detected (Not Detect.); Rotavirus A Not Detected (Not Detect.); Salmonella Not Detected (Not Detect.); Sapovirus Not Detected (Not Detect.); Shigella sp./EIEC Not Detected (Not Detect.); Vibrio Not Detected (Not Detect.); Vibrio Cholerae Not Detected (Not Detect.); Yersinia enterocolitica Not Detected (Not Detect.)
[2022-08-26] MEDS: Potassium Chloride Packet 20 MEQ PACKET PO (14:24)
[2022-08-26 14:25] LABS: Norovirus GI/GII Detected (Not Detect.)
[2022-08-26 15:14] LABS: Magnesium 1.4 mg/dL (1.6-2.6)
[2022-08-26 15:49] VITALS: BP 135/64; PULSE 92; RESP 18; TEMP 36.2; O2SAT 97
[2022-08-26 15:58] LABS: Sodium 146 mmol/L (135-145)
[2022-08-26] MEDS: Magnesium Oxide 400 MG TABLET 800 MG PO (16:12)
[2022-08-26] MEDS: Magnesium Sulfate/D5W 1 GM/100 ML PIGGYBACK IV (16:12)
[2022-08-26 19:22] VITALS: BP 122/67; PULSE 91; RESP 18; TEMP 36.3; O2SAT 96
[2022-08-26 20:27] LABS: Total Volume 24 Hour Urine 1000 mL
[2022-08-26 20:40] LABS: Microalbumin Excretion Rate Ur 17 mg/24Hr
[2022-08-26 23:22] VITALS: BP 138/76; PULSE 80; RESP 20; TEMP 36.6; O2SAT 96
[2022-08-27 03:19] VITALS: BP 142/75; PULSE 83; RESP 16; TEMP 37.1; O2SAT 94
[2022-08-27] MEDS: Omeprazole 20 MG CAPSULE.DR PO ×2 (06:00→16:53)
[2022-08-27 07:32] LABS: INTERNATIONAL NORM RATIO 3.1 (0.9-1.1); Prothrombin Time 36.9 SEC (10.0-13.1)
[2022-08-27 07:44] LABS: Anion Gap 14 (12-20); Blood Urea Nitrogen 21 mg/dL (9-16); Calcium 8.7 mg/dL (8.4-10.2); Carbon Dioxide 23 mmol/L (22-29); Chloride 113 mmol/L (96-108); Creatinine Clr Calc Pharmacy 46.8; Estimated Glomerular Filt Rate 50; Glucose Random 113 mg/dL (60-115); Magnesium 1.5 mg/dL (1.6-2.6); Sodium 146 mmol/L (135-145)
--- NOTE | 2022-08-27 07:48 | MHC.IC ---
Positive for Norovirus. Please use strict hand washing with soap and water after all contact, and bleach for cleaning surfaces.
[2022-08-27 08:00] VITALS: BP 125/70; PULSE 91; RESP 20; TEMP 37; O2SAT 96
[2022-08-27] MEDS: Magnesium Oxide 400 MG TABLET 800 MG PO ×2 (08:23→16:53)
[2022-08-27] MEDS: Sodium Bicarbonate 650 MG TABLET PO ×4 (08:23→20:30)
[2022-08-27] MEDS: Metoprolol Tartrate 12.5 MG HALFTAB PO ×5 (08:23→20:30)
[2022-08-27] MEDS: Clotrimazole 1 % Cream 15 GM TUBE 1 APPL TOPICAL ×2 (08:24→20:30)
[2022-08-27] MEDS: Atorvastatin Calcium 80 MG TABLET PO (08:24)
[2022-08-27] MEDS: Nystatin Powder 15 GM BOTTLE 1 APPL TOPICAL ×3 (08:24→20:31)
[2022-08-27] MEDS: 0.9 % Sodium Chloride Flush 3 ML SYRINGE IVFLUSH ×2 (08:24→16:53)
[2022-08-27] MEDS: Magnesium Sulfate/D5W 1 GM/100 ML PIGGYBACK IV (10:00)
--- NOTE | 2022-08-27 11:02 | PM.PNNEP ---
Subjective Subjective Date of Service: 08/27/22 Interval history: Hypernatremia,inr supratherapeutic Physical Exam Vital Signs: Vital Signs: Last Vital Signs Temp 98.6 F 08/27/22 08:00 Pulse 91 08/27/22 08:00 Resp 20 08/27/22 08:00 BP 125/70 08/27/22 08:00 Pulse Ox 96 08/27/22 08:00 O2 Del Method Room Air 08/27/22 08:00 BMI result Body Mass Index 37.1 Const: General: no acute distress HEENT: Head: Yes normocephalic and Yes atraumatic Neck: Neck: Yes supple Resp: Auscultation: clear to auscultation bilaterally Cardio: Heart sounds: S1 normal heart sound present and S2 normal heart sound present GI: Palpation (GI): Soft to palpation and nontender Extrem: Right lower extremity: no edema Left lower extremity: no edema Objective Data Labs 08/24/22 01:41 08/27/22 06:58 Labs: Laboratory Results - last 24 hr 08/25/22 08/26/22 08/26/22 20:08 04:15 15:01 PT INR Sodium 146 H Potassium Chloride Carbon Dioxide Anion Gap BUN Creatinine Estim Creat Clear Calc Estimated GFR Random Glucose Calcium Magnesium 1.4 L* Ur 24 Hour Volume Ur Microalbumin 24 Hr Microalbumin Excretion Stl C. cayetanensis PCR Not Detected Stool Rotavirus A PCR Not Detected Stl Adenov F 40/41 PCR Not Detected Stool Astrovirus (PCR) Not Detected Stool Campylobacter PCR Not Detected Stool Cryptosporidium PCR Not Detected Stl Sh Tox Pr E STEC PCR Not Detected Stool E coli O157 PCR Not applicable Stl Enterotoxigenic E PCR Not Detected Stool EPEC (PCR) Not Detected Stool EAEC (PCR) Not Detected Stl E. histolytica PCR Not Detected Stool Giardia Lamblia PCR Not Detected Stl P. shigelloides PCR Not Detected Stool Salmonella PCR Not Detected Stool Sapovirus (PCR) Not Detected Stl Shigella/EIEC PCR Not Detected St Y.enterocolitica PCR Not Detected Stool Vibrio (PCR) Not Detected Stl Vibrio cholerae PCR Not Detected Stl Norovirus GI/GII PCR Detected A 08/26/22 08/27/22 08/27/22 Unknown 06:58 06:58 PT 36.9 H INR 3.1 H Sodium 146 H Potassium 4.0 Chloride 113 H Carbon Dioxide 23 Anion Gap 14 BUN 21 H Creatinine 1.05 Estim Creat Clear Calc 46.8 Estimated GFR 50 Random Glucose 113 Calcium 8.7 Magnesium 1.5 L Ur 24 Hour Volume 1000 Ur Microalbumin 24 Hr 17.0 Microalbumin Excretion 17 Stl C. cayetanensis PCR Stool Rotavirus A PCR Stl Adenov F 40/41 PCR Stool Astrovirus (PCR) Stool Campylobacter PCR Stool Cryptosporidium PCR Stl Sh Tox Pr E STEC PCR Stool E coli O157 PCR Stl Enterotoxigenic E PCR Stool EPEC (PCR) Stool EAEC (PCR) Stl E. histolytica PCR Stool Giardia Lamblia PCR Stl P. shigelloides PCR Stool Salmonella PCR Stool Sapovirus (PCR) Stl Shigella/EIEC PCR St Y.enterocolitica PCR Stool Vibrio (PCR) Stl Vibrio cholerae PCR Stl Norovirus GI/GII PCR Microbiology Microbiology Results: Microbiology 08/24/22 Unknown Urine clean catch - Urine etienne top Urine Culture - Final Procedures Date of Service Date of Service: 08/27/22 Assessment & Plan Assessment and plan (1) ARIADNA (acute kidney injury): Status: Acute (2) Hypernatremia: Status: Acute (3) Metabolic acidosis: Status: Acute (4) CKD (chronic kidney disease) stage 3, GFR 30-59 ml/min: Status: Acute Plan hypernatremia due to free water deficit ARIADNA due to renal hypoperfusion resolved renal function CT scan negative for hydronephrosis benign urine sediment known CKD baseline Scr ~ 1.5 mg/dl metabolic acidosis due to GI losse resolving REC keep intake more than the output withhypotonic fluid follow kidney function and electrolytes Time Spent With Patient Time: Total time managing care of this patient today ____ minutes. Progress Note: Quality Stroke Does the patient have a stroke diagnosis?: No
[2022-08-27 11:13] VITALS: BP 121/70; PULSE 79; RESP 20; TEMP 37.1; O2SAT 95
--- NOTE | 2022-08-27 13:23 | MHC.CM.PN ---
per rounds pt not ready for dc electrlytes are off expected dc in 1 to 2 radha=ys plan [facility] home no services
--- NOTE | 2022-08-27 14:43 | P.PNIM_ITS ---
Subjective Subjective Date of Service: 08/27/22 Interval History: Hypernatremia,inr supratherapeutic Review of Systems Denies any chest pain shortness of breath or nausea or vomiting Diarrhea improving. Physical Exam Vital Signs: Vital Signs: Last Vital Signs Temp 98.8 F 08/27/22 11:13 Pulse 79 08/27/22 11:13 Resp 20 08/27/22 11:13 BP 121/70 08/27/22 11:13 Pulse Ox 95 08/27/22 11:13 O2 Del Method Room Air 08/27/22 11:13 BMI result Body Mass Index 37.1 Appearance: Alert.? Oriented X3.? not in distress.? cvs: rrr, [id number] , no murmur res: clear to auscultation ,no rhonchii or wheezing abd: no rebound or guarding ,nt, bs present. ext pulses present , no cyanosis . neuro: axo3 , nonfocal. Objective Data Active Medications Albuterol Sulfate (Albuterol Sulfate 90 Mcg 8 Gm Inhaler) 2 puff INHALE Q4H PRN PRN Reason: SHORTNESS OF BREATH Amlodipine Besylate (Amlodipine Besylate 2.5 Mg Tablet) 2.5 mg PO DAILY [facility]; Protocol Last Admin: 08/24/22 12:48 Dose: 2.5 mg Documented By: NIKITA Atenolol (Atenolol 50 Mg Tablet) 50 mg PO DAILY [facility]; Protocol Last Admin: 08/24/22 12:47 Dose: 50 mg Documented By: NIKITA Atorvastatin Calcium (Atorvastatin Calcium 80 Mg Tablet) 80 mg PO DAILY [facility] Last Admin: 08/27/22 08:24 Dose: 80 mg Documented By: LOBITO Clotrimazole (Clotrimazole 1 % Cream 15 Gm Tube) 1 appl TOPICAL BID [facility]; Protocol Last Admin: 08/27/22 08:24 Dose: 1 appl Documented By: LOBITO Docusate Sodium (Docusate Sodium 100 Mg Capsule) 100 mg PO DAILY PRN PRN Reason: Constipation Magnesium Oxide ([facility]ide 400 Mg [facility]t) [facility] Last Admin: 08/27/22 08:23 Dose: 800 mg Documented By: LOBITO Metoprolol Tartrate (Metoprolol Tartrate 12.5 Mg Halftab) 12.5 mg PO QID [facility]; Protocol Last Admin: 08/27/22 13:54 Dose: 12.5 mg Documented By: LOBITO Nystatin (Nystatin Powder 15 Gm Bottle) 1 appl TOPICAL TID [facility]; Protocol Last Admin: 08/27/22 13:55 Dose: 1 appl Documented By: LOBITO Omeprazole (Omeprazole 20 Mg Capsule.) 20 mg PO BID@0630,1630 [facility] Last Admin: 08/27/22 06:00 Dose: 20 mg Documented By: CASSIA Ondansetron HCl (Ondansetron Hcl 4 Mg/2 Ml Vial) 4 mg IVPUSH Q8H PRN PRN Reason: Nausea and Vomiting Pharmacy Consult (Consult Rx Perform Med Rec) 1 each MISCELLANE ONCE PRN PRN Reason: Consult order Sodium Bicarbonate (Sodium Bicarbonate 650 Mg Tablet) 650 mg PO QID [facility] Last Admin: 08/27/22 13:54 Dose: 650 mg Documented By: LOBITO Sodium Chloride (0.9 % Sodium Chloride Flush 3 Ml Syringe) 3 ml IVFLUSH QSHIFT [facility] Last Admin: 08/27/22 08:24 Dose: 3 ml Documented By: LOBITO Warfarin Sodium (Warfarin Sodium 2.5 Mg Tablet) 2.5 mg PO DAILY@1800 [facility] Labs 08/24/22 01:41 08/27/22 06:58 Labs: Laboratory Results - last 24 hr 08/25/22 08/26/22 08/27/22 20:08 Unknown 06:58 PT 36.9 H INR 3.1 H Anion Gap Estim Creat Clear Calc Estimated GFR Random Glucose Calcium Magnesium 1.4 L* Ur 24 Hour Volume 1000 Ur Microalbumin 24 Hr 17.0 Microalbumin Excretion 17 08/27/22 06:58 PT INR Anion Gap 14 Estim Creat Clear Calc 46.8 Estimated GFR 50 Random Glucose 113 Calcium 8.7 Magnesium 1.5 L Ur 24 Hour Volume Ur Microalbumin 24 Hr Microalbumin Excretion Assessment and Plan (1) Obesity: Status: Acute (2) Hypernatremia: Status: Acute (3) ARIADNA (acute kidney injury): Status: Acute (4) Hypomagnesemia: Status: Acute Plan 82-year-old female with a PMH significant for CKD3, paroxysmal AFib on warfarin, HLD, HTN, mitral valve replacement, and COPD who presents to the ED with 3-4 mon ths of chronic diarrhea. Pt will be admitted to the hospital for treatment and management of hyperkalemia and ARIADNA on CKD3. ARIADNA on CKD3 Received hydration creatinine came back to 1.05 range. Hyperkalemia Received Lokelma, insulin ,bicarb drip yesterday seems to be improved significantly moniter on tele, bmp Nephrology consult-ARIADNA probably related to hypoperfusion.Hold olmesartan, furosemide .Monitor BMP. Hypernatremia: Probably related to poor oral intake sodium came back to 146 range this mornin free water 250 ml q4hr moniter bmp today afternoon. Elevated lipase Patient's lipase was 186 upon presentation Unclear etiology CT of abdomen and pelvis found unremarkable pancreas Paroxysmal AFib on Coumadin hr seems fine , bp still boderline Continue Coumadin, will start atenolol in am HTN Continue amlodipine COPD Not in acute exacerbation Home inhaler prn paroxysmal AFib,mvr: on warfarin, INR supratherapeutic Hold warfarin today. Will recheck the INR in the morning Candidal rash in perineum area: Continue nystatin, clotrimazole. Obesity : Encouraged to lose weight. hypomag-sec to diarrahe and dec po intake seems improve with repletion,still low. continue po replacement. Full Code DVT Prophylaxis: on warfarin inpatient need: hyperkalemia,hypernatremia and ARIADNA on CKD3-need hydration, renal function and electrolyte monitoring. Also INR is supratherapeutic need INR monitoring . Time Spent With Patient Time: Total time managing care of this patient today ____ minutes. Quality Stroke Does the patient have a stroke diagnosis?: No VTE Prior VTE?: No VTE Risk Level:: Medical - moderate - high VTE Device Contraindication: Treatment Not Indicated VTE Drug Contraindication: N/A - Med Ordered
--- NOTE | 2022-08-27 14:45 | P.CDIM_ITS ---
PROVIDER RESPONSE TEXT: To clarify, the appropriate diagnosis supported by the clinical indicators: Other (explain): hypomag-sec to diarrahe and dec po intake QUERY TEXT: PHYSICIAN'S DOCUMENTATION REQUEST Date of Query: 08/27/2022 11:27 AM EDT Patient Name: Ramona Pinon Admit Date: 08/24/2022 Dear Eliana Humphrey, A review of the medical record indicates additional documentation may be needed. Please review below and update the documentation accordingly. Clinical Indicators: LAB FINDINGS: Magnesium 1.4 L 1.5 L Mag-ox Based on the above, could you clarify the appropriate diagnosis, if significant, that supports the ab ove abnormalities and additional evaluation, monitoring, and/or treatment rendered: Hypomagnesemia or other etiology of lab findings Labs indicate a diagnosis of (please specify) Other Unable to determine Other (explain) Clinically unable to determine (explain) Thank you, Emmy Enriquez, CCS, CDIS Use of terms such as suspected, likely, concern for, or probable (associated with a specific diagnosi s that is being evaluated, monitored, or treated as if it exists) are acceptable and can be coded in the inpatient se tting, when documented at the time of discharge. Please use your independent medical judgment in providing your response. THIS QUERY IS PART OF THE PERMANENT MEDICAL RECORD
[2022-08-27 15:01] VITALS: BP 145/61; PULSE 87; RESP 17; TEMP 36.7; O2SAT 94
[2022-08-27] MEDS: Warfarin Sodium 0.5 MG HALFTAB 1.5 MG PO (17:42)
[2022-08-27 19:32] VITALS: BP 138/67; PULSE 86; RESP 17; TEMP 36.9; O2SAT 95
[2022-08-28] VITALS: BP 154/85; PULSE 85; RESP 16; TEMP 37.1; O2SAT 96
[2022-08-28] MEDS: 0.9 % Sodium Chloride Flush 3 ML SYRINGE IVFLUSH (00:37)
[2022-08-28 03:38] VITALS: BP 113/71; PULSE 88; RESP 18; TEMP 36.8; O2SAT 93
[2022-08-28] MEDS: Omeprazole 20 MG CAPSULE.DR PO ×2 (05:58→16:32)
[2022-08-28 06:55] LABS: Prothrombin Time 35.5 SEC (10.0-13.1)
[2022-08-28 07:41] VITALS: BP 138/74; PULSE 92; RESP 17; TEMP 36.2; O2SAT 94
[2022-08-28] MEDS: Atorvastatin Calcium 80 MG TABLET PO (08:00)
[2022-08-28] MEDS: Sodium Bicarbonate 650 MG TABLET PO ×3 (08:00→16:32)
[2022-08-28] MEDS: Magnesium Oxide 400 MG TABLET 800 MG PO ×2 (08:00→16:32)
[2022-08-28] MEDS: Metoprolol Tartrate 12.5 MG HALFTAB PO ×3 (08:00→16:33)
[2022-08-28] MEDS: Clotrimazole 1 % Cream 15 GM TUBE 1 APPL TOPICAL (08:01)
[2022-08-28] MEDS: Nystatin Powder 15 GM BOTTLE 1 APPL TOPICAL ×2 (08:01→16:33)
[2022-08-28 08:38] LABS: Anion Gap 10 (12-20); Blood Urea Nitrogen 17 mg/dL (9-16); Calcium 8.6 mg/dL (8.4-10.2); Carbon Dioxide 27 mmol/L (22-29); Chloride 113 mmol/L (96-108); Creatinine Clr Calc Pharmacy 56.5; Estimated Glomerular Filt Rate > 60; Glucose Random 100 mg/dL (60-115); Potassium 3.6 mmol/L (3.3-5.1); Sodium 146 mmol/L (135-145)
--- NOTE | 2022-08-28 09:16 | PM.PNNEP ---
Subjective Subjective Date of Service: 08/28/22 Interval history: Events noted. No shortness of breath. Physical Exam Vital Signs: Vital Signs: Last Vital Signs Temp 97.1 F 08/28/22 07:41 Pulse 92 08/28/22 07:41 Resp 17 08/28/22 07:41 BP 138/74 08/28/22 07:41 Pulse Ox 94 08/28/22 07:41 O2 Del Method Room Air 08/28/22 07:41 BMI result Body Mass Index 37.1 Const: General: no acute distress HEENT: Head: Yes normocephalic and Yes atraumatic Neck: Neck: Yes supple Resp: Auscultation: clear to auscultation bilaterally Cardio: Heart sounds: S1 normal heart sound present and S2 normal heart sound present GI: Palpation (GI): Soft to palpation and nontender Extrem: Right lower extremity: no edema Left lower extremity: no edema Objective Data Labs 08/24/22 01:41 08/28/22 06:13 Labs: Laboratory Results - last 24 hr 08/28/22 08/28/22 06:13 06:13 PT 35.5 H INR 3.0 H Sodium 146 H Potassium 3.6 Chloride 113 H Carbon Dioxide 27 Anion Gap 10 L BUN 17 H Creatinine 0.87 Estim Creat Clear Calc 56.5 Estimated GFR > 60 Random Glucose 100 Calcium 8.6 Microbiology Microbiology Results: Microbiology 08/24/22 Unknown Urine clean catch - Urine etienne top Urine Culture - Final Procedures Date of Service Date of Service: 08/28/22 Assessment & Plan Assessment and plan (1) ARIADNA (acute kidney injury): Status: Acute (2) Hypernatremia: Status: Acute (3) Metabolic acidosis: Status: Acute (4) CKD (chronic kidney disease) stage 3, GFR 30-59 ml/min: Status: Acute Plan hypernatremia due to free water deficit ARIADNA due to renal hypoperfusion resolved CT scan negative for hydronephrosis benign urine sediment known CKD Age-related decline in EGFR. metabolic acidosis due to GI losse resolved REC Discontinue sodium bicarbonate tablets. keep intake more than the output withhypotonic fluid follow kidney function and electrolytes Time Spent With Patient Time: Total time managing care of this patient today ____ minutes. Progress Note: Quality Stroke Does the patient have a stroke diagnosis?: No
[2022-08-28 09:55] VITALS: BP 138/74; PULSE 92; O2SAT 94
--- NOTE | 2022-08-28 10:44 | HO.PM.IMPN ---
Subjective Subjective Date of Service: 08/28/22 Interval History: f/u on vasu, hypernatremia interval history overall better, sodium slightly high still Physical Exam Vital Signs: Vital Signs: Last Vital Signs Temp 97.1 F 08/28/22 07:41 Pulse 92 08/28/22 09:55 Resp 17 08/28/22 07:41 BP 138/74 08/28/22 09:55 Pulse Ox 94 08/28/22 09:55 O2 Del Method Room Air 08/28/22 07:41 BMI result Body Mass Index 37.1 Const: Other: General: AO X 3, no acute distress Resp: CTA bilateral CVS: S1,S2,RRR GI: +BS, NT, no distention Skin: No rash Neuro: motor grossly intact Psych: appropriate affect Objective Data Active Medications Albuterol Sulfate (Albuterol Sulfate 90 Mcg 8 Gm Inhaler) 2 puff INHALE Q4H PRN PRN Reason: SHORTNESS OF BREATH Amlodipine Besylate (Amlodipine Besylate 2.5 Mg Tablet) 2.5 mg PO DAILY [facility]; Protocol Last Admin: 08/24/22 12:48 Dose: 2.5 mg Documented By: NIKITA Atenolol (Atenolol 50 Mg Tablet) 50 mg PO DAILY [facility]; Protocol Last Admin: 08/24/22 12:47 Dose: 50 mg Documented By: NIKITA Atorvastatin Calcium (Atorvastatin Calcium 80 Mg Tablet) 80 mg PO DAILY [facility] Last Admin: 08/28/22 08:00 Dose: 80 mg Documented By: DELFINO Clotrimazole (Clotrimazole 1 % Cream 15 Gm Tube) 1 appl TOPICAL BID [facility]; Protocol Last Admin: 08/28/22 08:01 Dose: 1 appl Documented By: DELFINO Docusate Sodium (Docusate Sodium 100 Mg Capsule) 100 mg PO DAILY PRN PRN Reason: Constipation Magnesium Oxide ([facility]ide 400 Mg Tablet) [facility] Admin: 08/28/22 08:00 Dose: 800 mg Documented By: DELFINO Metoprolol Tartrate (Metoprolol Tartrate 12.5 Mg Halftab) 12.5 mg PO QID [facility]; Protocol Last Admin: 08/28/22 08:00 Dose: 12.5 mg Documented By: DELFINO Nystatin (Nystatin Powder 15 Gm Bottle) 1 appl TOPICAL TID [facility]; Protocol Last Admin: 08/28/22 08:01 Dose: 1 appl Documented By: DELFINO Omeprazole (Omeprazole 20 Mg Capsule.) 20 mg PO BID@0630,1630 [facility] Last Admin: 08/28/22 05:58 Dose: 20 mg Documented By: ALLI Ondansetron HCl (Ondansetron Hcl 4 Mg/2 Ml Vial) 4 mg IVPUSH Q8H PRN PRN Reason: Nausea and Vomiting Pharmacy Consult (Consult Rx Perform Med Rec) 1 each MISCELLANE ONCE PRN PRN Reason: Consult order Sodium Bicarbonate (Sodium Bicarbonate 650 Mg Tablet) 650 mg PO QID [facility] Last Admin: 08/28/22 08:00 Dose: 650 mg Documented By: DELFINO Sodium Chloride (0.9 % Sodium Chloride Flush 3 Ml Syringe) 3 ml IVFLUSH QSHIFT [facility] Last Admin: 08/28/22 07:34 Dose: Not Given Documented By: DELFINO Non-Admin Reason: See Note Labs 08/24/22 01:41 08/28/22 06:13 Labs: Laboratory Results - last 24 hr 08/28/22 08/28/22 06:13 06:13 PT 35.5 H INR 3.0 H Anion Gap 10 L Estim Creat Clear Calc 56.5 Estimated GFR > 60 Random Glucose 100 Calcium 8.6 Assessment and Plan (1) Obesity: Status: Acute (2) Hypernatremia: Status: Acute (3) VASU (acute kidney injury): Status: Acute (4) Hypomagnesemia: Status: Acute Plan 82-year-old female with a PMH significant for CKD3, paroxysmal AFib on warfarin, HLD, HTN, mitral valve replacement, and COPD who presents to the ED with 3-4 months of chronic diarrhea. Pt will be admitted to the hospital for treatment and management of hyperkalemia and VASU on CKD3. VASU on CKD3 d/t dehydration, resolved with IVF, continue holding Lasix Hypekalemia--resolved after Lokelma Hypernatremia: d/t free water deficit, encourage oral water, 146 today Elevated lipase--no pain, CT unremarkable Paroxysmal AFib on Coumadin, rate controlled on Atenolol HTN Continue amlodipine COPD, no acute exacerbation Home inhaler prn Candidal rash in perineum area: Continue nystatin, clotrimazole. Obesity : Encouraged to lose weight. hypomag-sec to diarrahe and dec po intake seems improve with repletion,still low. continue po replacement. Full Code DVT Prophylaxis: on warfarin inpatient need: management of vasu, hypernatremia, and fluid managemnt, frequent lab levels and monitoring response of, Time Spent With Patient Time: Total time managing care of this patient today ____ minutes. Quality Stroke Does the patient have a stroke diagnosis?: No VTE Prior VTE?: No VTE Risk Level:: Medical - moderate - high VTE Device Contraindication: Treatment Not Indicated VTE Drug Contraindication: N/A - Med Ordered
[2022-08-28 11:13] VITALS: BP 115/70; PULSE 80; RESP 18; TEMP 36.6; O2SAT 97
--- NOTE | 2022-08-28 13:43 | P.DS_ITS ---
DS: Providers Provider Date of Service: 08/28/22 Date of admission: 08/24/22 12:17 Primary care physician: Kiesha Macedo MD Consults: 08/24/22 12:20 Consult to Nephrology Routine Consulting Provider: Tanner Radford Reason for consultation: Hyperkalemia, ARIADNA on CKD DS: Diagnosis Discharge Diagnosis (1) Obesity: Status: Inactive (2) Hypernatremia: Status: Resolved (3) ARIADNA (acute kidney injury): Status: Resolved (4) Hypomagnesemia: Status: Resolved DS: Summary Hospital Course Hospital Course: Chief Complaint: Diarrhea Pt is an 82-year-old female with a PMH significant for?CKD3, paroxysmal AFib on warfarin, HLD, HTN, mitral valve replacement, and COPD who presents to the ED with 3-4 months of chronic diarrhea.? Patient states that her symptoms began around 4 months ago when she took her pills at night with a cold glass of soda.? Patient did this in spite of having seen an ad on TV earlier stating one should not have cold drinks before bed. She felt the pill get stuck in her throat, had a gadding reflex, and then developed pain in the back of her neck. Says she continued to feel throat and neck discomfort for 3-4 weeks despite not having cold drinks at night. Discomfort eventually went away for a while but returned after another month, despite pt not drinking cold drinks at night. Currently pt says she does not feel throat or neck discomfort. Pt also notes she has been having non-bloody diarrhea on and off for the same period of time. Can occur 3-4 times a day, usually associated with eating a meal. Pt has been experiencing diarrhea continuously for the past month. Pt notes that she has significantly decreased her PO intake of both liquids and solids during this time, while continuing to take her medications, including furosemide and her potassium- chloride. Pt had an appointment today to see her PCP, but presented to the ED when her daughter came to visit her last night and told her she did not look well and needed to be seen immediately. Some nausea, no vomiting. Pt denies fever, chills, abdominal pain. No chest pain/pressure, palpitations. In the ED patient was afebrile but hypotensive as low as 92/34. Labs were significant for hyperkalemia of 7.3, chloride of 123, CO2 of 12, BUN of 89, creatinine of 4.54, and lipase of 86. CT?of abdomen and pelvis found no acute findings, no hydronephrosis, nonobstructing right renal calculi. EKG demonstrated atrial fibrillation with no evidence of tall peaked T-waves or ST elevations or depressions. Pt was treated with IVF, Lokelma x2, sodium bicarbonate x2, dextrose, and insulin. Pt will be admitted to the hospital for treatment and management of hyperkalemia and ARIADNA on CKD3. Hospital course: She presented with darrhea and weakness and found to be dehydrated with acute kidney injury, hyperkalemia and hypernatremia. Her diarrhea has was due to Noravirus as seen in GI panel, C dif was negative. Acute renal failure was due to dehydration from diarrhea and resolved once hydrated with Creatine went from 4.5 to now 0.87. Hyperkalemia due to renal failure resolved after Lokelma K is 3.6 it was 5.8, Hypernatremia is due to free water deficit and has improved from 152 to 146 and should revert to normal as patient continues to drink water. WEakness has improved and has been assess by PT and deemed appropriate to go home with family support and besides she doesn't want to go to rehab. She should stop taking Lasix for now Hypernatremia:? d/t free water deficit, encourage oral water, 146 today Elevated lipase--no pain, CT unremarkable Paroxysmal AFib on Coumadin, rate controlled on Atenolol HTN Continue amlodipine COPD, no acute exacerbation Home inhaler prn Candidal rash in perineum area:? Continue nystatin, clotrimazole. Hypomagnesemia due to diarrha Time Spent with Patient Time attestation: Total time managing care of this patient today ____ minutes. Discharge coordination time: Greater than 30 minutes Quality: Safe Use of Opioids Does Pt have an Active Cancer Diagnosis on the Problem List?: No Quality: Stroke Does the patient have a stroke diagnosis?: No Physical Exam Vital Signs: Vital Signs: Last Vital Signs Temp 97.8 F 08/28/22 11:13 Pulse 80 08/28/22 11:13 Resp 18 08/28/22 11:13 BP 115/70 08/28/22 11:13 Pulse Ox 97 08/28/22 11:13 O2 Del Method Room Air 08/28/22 11:13 BMI result Body Mass Index 37.1 DS: Data Data Completed and Pending Labs on day of discharge: Laboratory Results - last 24 hr 08/28/22 08/28/22 06:13 06:13 PT 35.5 H INR 3.0 H Sodium 146 H Potassium 3.6 Chloride 113 H Carbon Dioxide 27 Anion Gap 10 L BUN 17 H Creatinine 0.87 Estim Creat Clear Calc 56.5 Estimated GFR > 60 Random Glucose 100 Calcium 8.6 Discharge Plan Discharge Anticipated Discharge Date/Time: 08/28/22 13:42 Patient Disposition: Home, Self-Care Discharge Diagnosis: Dehydration, acute kidney failure, hyperkalemia Referrals: Kiesha Macedo MD [Primary Care Provider] - 1 Week Discharge Medications: Continued warfarin 2.5 mg tablet See Rx Instructions PO DAILY Qty: 360 2RF Protocol: Dose Management Condition: Saturday (Week One) Dose/Route: 1.25 mg Instruction: 0.5 x 2.5 mg tablets Condition: Saturday Dose/Route: 2.5 mg Instruction: 1 x 2.5 mg tablet Condition: Saturday Dose/Route: 2.5 mg Instruction: 1 x 2.5 mg tablet Condition: Saturday Dose/Route: 2.5 mg Instruction: 1 x 2.5 mg tablet Condition: Dose/Route: 2.5 mg Instruction: 1 x 2.5 mg tablet Condition: Saturday Dose/Route: 2.5 mg Instruction: 1 x 2.5 mg tablet Condition: Saturday Dose/Route: 2.5 mg Instruction: 1 x 2.5 mg tablet Condition: Saturday (Week Two) Dose/Route: 1.25 mg Instruction: 0.5 x 2.5 mg tablets Condition: Saturday Dose/Route: 2.5 mg Instruction: 1 x 2.5 mg tablet Condition: Saturday Dose/Route: 2.5 mg Instruction: 1 x 2.5 mg tablet Condition: Saturday Dose/Route: 2.5 mg Instruction: 1 x 2.5 mg tablet Condition: Dose/Route: 2.5 mg Instruction: 1 x 2.5 mg tablet Condition: Saturday Dose/Route: 2.5 mg Instruction: 1 x 2.5 mg tablet Condition: Saturday Dose/Route: 2.5 mg Instruction: 1 x 2.5 mg tablet Protocol Text: Adjustment Start Date: Saturday08/21/22 INR Value: 2.9 INR Date: 08/21/22 Recheck Date: 08/28/22 Additional Instructions: cont lower dosing include greens in weekly diet call with any changes in medication Rx Instructions: 1-2 tabl PO daily; atorvastatin 80 mg tablet 80 mg PO DAILY warfarin 2.5 mg tablet 2.5 mg PO DAILY@1200 omeprazole 20 mg capsule,delayed release(DR/EC) 20 mg PO BID albuterol sulfate 90 mcg/actuation HFA aerosol inhaler 2 puff inhalation Q4-6H PRN (Reason: sh) atenolol 50 mg tablet 50 mg PO DAILY Discontinued furosemide 40 mg tablet 40 mg PO BID olmesartan 40 mg tablet 40 mg PO DAILY potassium chloride 20 mEq tablet extended release 20 meq PO BID No Action amlodipine 2.5 mg tablet 2.5 mg PO DAILY Qty: 90 3RF Discharge Orders: Discharge Order (Routine); Ordered 08/28/22 Ordered By: [place] Diet: Advance to usual diet Activity on Discharge: As tolerated Stand Alone Forms: Patient Portal Discharge page Care Plan Goals: Full recovery from renal failure and dehydration Health Concerns: renal failure now resolved High sodium due to lack of water weakness due to renal failure and dehydration Plan of Treatment: Be sure to drink plenty of water, follow up with your Doctor in a week Assessment: see above Discharge Date/Time: 08/28/22 17:12
[2022-08-28 14:10] LABS: Magnesium 1.8 mg/dL (1.6-2.6)
[2022-08-28 14:47] LABS: Sodium 145 mmol/L (135-145)
[2022-08-28 15:09] VITALS: BP 136/78; PULSE 68; RESP 17; TEMP 36.3; O2SAT 95
--- NOTE | 2022-08-28 16:11 | MHC.CM.PN ---
CM knocked and entered room and Patient started talking to CM from the bathroom. Patient is pleased to be going home (IMM addressed verbally with her and original left at bedside and a copy placed on the chart).Patient has been medically cleared for dc to home today, self care.
[2022-08-28 16:58] LABS: Anion Gap 18 (12-20); Carbon Dioxide 24 mmol/L (22-29); Chloride 108 mmol/L (96-108); Potassium 3.7 mmol/L (3.3-5.1); Sodium 146 mmol/L (135-145)
--- NOTE | 2022-08-28 17:12 | PC.NURSE ---
Pt and pt's family member educated on discharge paperwork. IV and tele removed. All belongings with pt. Informed md warning sign stating canceled physician document was active on discharge. Per MD, document was corrected, OK to d/c pt.
== END 2022-08-28 17:12 | disposition home or self-care (01) | DRG 392 ==
LOC: HO.ED 05:42 → HO.EDOVER 12:27 → HO.IMC 14:02
PROVIDERS: Internal Medicine; Admitting Provider Student in an Organized Health Care Education/Training Program; Emergency Provider Internal Medicine; PCP Internal Medicine; Visit Provider Internal Medicine
DX: A08.11 Acute gastroenteropathy due to Norwalk agent (principal); E87.0 Hyperosmolality and hypernatremia; E87.20 Acidosis, unspecified; E86.0 Dehydration; E87.5 Hyperkalemia; Z95.2 Presence of prosthetic heart valve; I95.9 Hypotension, unspecified; I48.0 Paroxysmal atrial fibrillation; J44.9 Chronic obstructive pulmonary disease, unspecified; R79.1 Abnormal coagulation profile; B37.2 Candidiasis of skin and nail; E66.9 Obesity, unspecified; E83.42 Hypomagnesemia; Z68.37 Body mass index [BMI] 37.0-37.9, adult; I12.9 Hypertensive chronic kidney disease with stage 1 through stage 4 chronic kidney disease, or unspecified chronic kidney disease; N18.32 Chronic kidney disease, stage 3b; Z20.822 Contact with and (suspected) exposure to COVID-19; Z79.01 Long term (current) use of anticoagulants; Z79.899 Other long term (current) drug therapy
CPT/HCPCS: 36415; 74176; 80048; 80051; 80053; 81001; 82043; 82436; 82947; 83690; 83735; 84133; 84295; 84300; 85025; 85610; 87086; 87493; 87507; 87635; 89055; 93005; 97162; 99211; 99285; J0611; J3475; P9047

== ENCOUNTER 2022-09-12 10:15 | Outpatient (REF) | payer MEDICARE, BC, SELFPAY ==
--- NOTE | ~2022-09-12 | CT_ITS ---
EXAMINATION: CT ABDOMEN AND PELVIS WITHOUT CONTRAST CLINICAL INFORMATION: Calculus of kidney. COMPARISON: CT abdomen and pelvis 08/24/2022. TECHNIQUE: Multidetector volumetric imaging was performed from the superior aspect of the liver through the pubic symphysis. Sagittal and coronal reformatted images were obtained on the technologist's workstation. This CT examination was performed using dose optimization techniques as appropriate, variously including the following: *Automated exposure control *Adjustment of mA and/or kV according to patient size (this includes techniques or standardized protocols for targeted exams where dose is matched to indication/reason for exam; i.e. extremities or head) *Use of iterative reconstruction technique DLP: 718 mGy-cm FINDINGS: LUNG BASES: Increasing small bilateral pleural effusions and atelectasis at the lung bases compared to 08/24/2022. LIVER, GALLBLADDER, AND BILIARY TREE: The liver is normal in size, shape, and attenuation. No focal hepatic lesion or biliary ductal dilatation is present. Cholecystectomy. PANCREAS: No discrete pancreatic mass. No ductal dilatation. SPLEEN: Calcified granulomas. ADRENAL GLANDS: No adrenal mass. KIDNEYS AND URETERS: Punctate nonobstructing calculus in the posterior left upper kidney. 6 x 3 mm nonobstructing calculus in the posterior right upper kidney. No hydronephrosis. BLADDER: Unremarkable. GASTROINTESTINAL TRACT: Small hiatal hernia. The small bowel is normal in caliber. The appendix appears normal. There is diverticulosis without evidence of diverticulitis. ABDOMINAL WALL: Generalized laxity of the abdominal wall without significant discrete hernia. LYMPH NODES: No lymphadenopathy. VASCULAR: No aortic aneurysm. Moderate aortoiliac calcium. PELVIC VISCERA: The uterus and adnexa are unremarkable. OSSEOUS STRUCTURES: Degenerative changes in the spine. Right hip fracture ORIF. CT/CT abdomen pelvis wo IV con IMPRESSION: Nonobstructing bilateral renal calculi as above. Increasing small bilateral pleural effusions and bibasilar atelectasis. Compared to CT 08/24/2022. Fleischner guidelines were followed.
== END 2022-09-12 10:16 | disposition home or self-care (01) ==
LOC: HO.CT 10:15
PROVIDERS: PCP Internal Medicine; Visit Provider Urology
DX: N20.0 Calculus of kidney (principal)
CPT/HCPCS: 74176

== ENCOUNTER 2022-09-18 11:08 | Outpatient (REF) | payer MEDICARE, BC, SELFPAY ==
[2022-09-18 14:08] LABS: MANUAL DIFF FLAG NO
[2022-09-18 14:13] LABS: Basophils Absolute Auto 0.1 X10*3/uL (0.0-0.2); Basophils Percent Auto 0.6 % (0-2); Eosinophils Absolute Auto 0.1 X10*3/uL (0.0-0.4); Hematocrit 37.5 % (37.0-47.0); Hemoglobin 11.7 g/dl (12.0-16.0); Imm Gran Abs Auto 0.02 X10*3/uL (0.00-0.03); Imm Gran Pct Auto 0.2 % (0.0-0.4); Lymphocytes Absolute Auto 1.4 X10*3/uL (1.2-4.9); Lymphocytes Percent Auto 17.4 % (20-40); Mean Corpuscular HGB Conc 31.2 g/dl (31.0-35.0); Mean Corpuscular Hemoglobin 29.3 pg (27.0-33.0); Mean Platelet Volume 11.1 fL (9.4-12.3); Monocytes Absolute Auto 0.7 X10*3/uL (0.1-1.2); Monocytes Percent Auto 8.2 % (2-11); Neutrophils Absolute Auto 5.9 x10*3/uL (2.0-8.3); Neutrophils Percent Auto 72.6 % (45-73); Platelet Count 250 X10*3/uL (160-400); Red Blood Count 3.99 X10*6/uL (4.20-5.50); Red Cell Distribution Width 14.9 % (11.0-16.0); White Blood Count 8.1 X10*3/uL (4.8-10.8)
[2022-09-18 14:35] LABS: Alanine Aminotransferase 15 U/L (0-31); Albumin Level 3.8 g/dL (3.5-5.0); Alkaline Phosphatase 109 U/L (39-117); Anion Gap 13 (12-20); Aspartate Amino Transferase 22 U/L (5-31); Bilirubin Total 1.6 mg/dL (0.0-1.0); Blood Urea Nitrogen 10 mg/dL (9-16); Calcium 9.3 mg/dL (8.4-10.2); Carbon Dioxide 31 mmol/L (22-29); Chloride 107 mmol/L (96-108); Estimated Glomerular Filt Rate > 60; Glucose Random 119 mg/dL (60-115); Iron 50 mcg/dL (30-160); Percent Iron Saturation 22 % (15-50); Potassium 3.2 mmol/L (3.3-5.1); Sodium 148 mmol/L (135-145); Total Iron Binding Capacity 228 mcg/dL (228-428); Total Protein 6.2 g/dL (6.5-8.0); Unsaturated Iron Binding 178 ug/dL
[2022-09-18 14:43] LABS: B Type Natriuretic Peptide 332 pg/mL (<100)
[2022-09-18 14:52] LABS: Vitamin D 25-OH Total 93.8 ng/mL (>30)
== END 2022-09-18 11:09 | disposition home or self-care (01) ==
LOC: HO.HMGCLDS 11:08
PROVIDERS: PCP Internal Medicine; Visit Provider Internal Medicine
DX: I12.9 Hypertensive chronic kidney disease with stage 1 through stage 4 chronic kidney disease, or unspecified chronic kidney disease (principal); N18.4 Chronic kidney disease, stage 4 (severe); I48.91 Unspecified atrial fibrillation; E55.9 Vitamin D deficiency, unspecified
CPT/HCPCS: 36415; 80053; 82306; 83540; 83880; 85025

== ENCOUNTER → 2022-09-25 09:03 | Outpatient (BNVA) | payer MEDICARE, BC, SELFPAY | PROVIDERS: PCP Internal Medicine; Visit Provider Internal Medicine | DX: I48.0 Paroxysmal atrial fibrillation (principal); Z79.01 Long term (current) use of anticoagulants; Z51.81 Encounter for therapeutic drug level monitoring | CPT/HCPCS: 85610; 99212 ==

== ENCOUNTER → 2022-10-03 08:36 | Outpatient (BNVA) | payer MEDICARE, BC, SELFPAY | PROVIDERS: PCP Internal Medicine; Visit Provider Internal Medicine | DX: I48.0 Paroxysmal atrial fibrillation (principal); Z79.01 Long term (current) use of anticoagulants; Z51.81 Encounter for therapeutic drug level monitoring | CPT/HCPCS: 36415; 71046; 80048; 85610; 99211 ==

== ENCOUNTER 2022-10-03 12:22 | Outpatient (REF) | payer MEDICARE, BC, SELFPAY ==
--- NOTE | ~2022-10-03 | XR_ITS ---
EXAMINATION: XR CHEST CLINICAL INFORMATION: Shortness of breath. COMPARISON: 10/22/2016 chest radiographs. TECHNIQUE: 2 views of the chest were obtained. FINDINGS: There are increased pulmonary vascular markings with small bilateral pleural effusions. Mild bibasilar linear markings are seen. The heart is mildly enlarged. The mediastinal structures are unremarkable. A left-sided pacemaker device appears in good position. XR/XR chest 2V IMPRESSION: Small bilateral pleural effusions appear mildly increased with mild congestion.
[2022-10-03 15:13] LABS: Anion Gap 16 (12-20); Blood Urea Nitrogen 8 mg/dL (9-16); Calcium 9.8 mg/dL (8.4-10.2); Carbon Dioxide 28 mmol/L (22-29); Chloride 106 mmol/L (96-108); Estimated Glomerular Filt Rate > 60; Glucose Random 113 mg/dL (60-115); Potassium 3.5 mmol/L (3.3-5.1); Sodium 146 mmol/L (135-145)
== END 2022-10-03 12:23 | disposition home or self-care (01) ==
LOC: HO.HMGCX 12:22
PROVIDERS: PCP Internal Medicine; Visit Provider Nurse Practitioner Family
DX: Z13.89 Encounter for screening for other disorder (principal)
CPT/HCPCS: 36415; 71046; 80048

== ENCOUNTER 2022-10-07 18:44 | Inpatient (IN) | payer MEDICARE, BC, SELFPAY ==
--- NOTE | ~2022-10-07 | XR_ITS ---
EXAMINATION: XR CHEST CLINICAL INFORMATION: Shortness of breath. COMPARISON: 10/03/2022. TECHNIQUE: Portable upright AP view of the chest was obtained. XR/XR chest 1V FINDINGS/IMPRESSION: The study is significantly limited by portable technique, low lung volumes, patient body habitus, rotation, and overlying leads. There has been no gross significant radiographic change compared with 4 days prior. Findings may demonstrate prominence of the pulmonary veins in their nondependent portions, suggesting pulmonary venous hypertension. There may be mild diffuse interstitial prominence. Small bibasilar hazy densities suggest small effusions, atelectasis, and/infiltrates, left worse than right. Findings raise suspicion for mild pulmonary edema. The cardiac silhouette is suboptimally evaluated, probably enlarged. The aorta is atherosclerotic. The tips of left subclavian pulse generator device leads project over the right atrium and right ventricle. The patient may be status post cardiac valve replacement surgery. Status post median sternotomy. Right rib fracture deformities.
[2022-10-07 18:49] VITALS: BP 141/75; PULSE 95; RESP 18; TEMP 36.3; O2SAT 89; BMI 37.3
--- NOTE | 2022-10-07 18:50 | ED_ITS ---
HPI - SOB/Dyspnea General Chief Complaint: Dyspnea <BRENT Bravo - Last Filed: 10/07/22 19:08> Stated Complaint: SOB <BRENT Bravo - Last Filed: 10/07/22 19:08> Time Seen by Provider: 10/07/22 19:04 <BRENT Bravo - Last Filed: 10/07/22 19:08> Source: patient <Karen Fair MD - Last Filed: 10/07/22 23:17> Mode of arrival: ambulatory <Karen Fair MD - Last Filed: 10/07/22 23:17> History of Present Illness HPI Narrative: 82-year-old female with known atrial fibrillation, on anticoagulation and known CKD with history of CHF presents with increasing shortness of breath for 5 days and reports that is much worse on exertion and notes increase in bilateral lower leg swelling. Patient also endorses that she was taken off of her water pills on discharge on 08/28 but thinks she may have recently been restarted on the medication by her primary care provider. <Karen Fair MD - Last Filed: 10/07/22 23:17> Related Data Home Medications: Home Medications Medication Instructions Recorded Confirmed albuterol sulfate 90 mcg/actuation 2 puff inhalation Q4-6H PRN sh 08/24/22 10/03/22 aerosol inhaler atenolol 50 mg tablet 50 mg PO DAILY 08/24/22 10/03/22 atorvastatin 80 mg tablet 80 mg PO DAILY 08/24/22 10/03/22 omeprazole 20 mg capsule,delayed 20 mg PO BID 08/24/22 10/03/22 release warfarin 2.5 mg tablet 2.5 mg PO DAILY@1200 08/24/22 10/03/22 Previous Rx's Medication Instructions Recorded amlodipine 2.5 mg tablet 2.5 mg PO DAILY #90 tabs 09/10/22 potassium chloride 20 mEq 20 meq PO DAILY #14 tabs 09/21/22 tablet,extended release(part/cryst) furosemide 40 mg tablet (Lasix) 40 mg PO DAILY 5 days #5 tabs 10/06/22 <BRENT Bravo - Last Filed: 10/07/22 19:08> Allergies/Adverse Reactions: Allergies Allergy/AdvReac Type Severity Reaction Status Date / Time acetaminophen [From Vicodin] Allergy Intermediate per patient Verified 10/07/22 18:49 hydrocodone [From Vicodin] Allergy Mild CHEST PAIN Verified 10/07/22 18:49 <BRENT Bravo - Last Filed: 10/07/22 19:08> Review of Systems Review of Systems: Pertinent positives and negatives as stated in HPI <Karen Fair MD - Last Filed: 10/07/22 23:17> PMFSH Past Medical History Source: nursing notes reviewed <Karen Fair MD - Last Filed: 10/07/22 23:17> Medical History: Medical History A-fib CKD (chronic kidney disease) stage 3, GFR 30-59 ml/min COPD (chronic obstructive pulmonary disease) HTN (hypertension) Hyperlipidemia Hyperparathyroidism due to vitamin D deficiency Nephrolithiasis, uric acid Obesity GORDON (obstructive sleep apnea) Osteoporosis Pulmonary HTN Severe mitral regurgitation Thiamine deficiency <BRENT Bravo - Last Filed: 10/07/22 19:08> Surgical History: Surgical History History of open reduction and internal fixation (ORIF) procedure Hx of hernia repair <BRENT Bravo - Last Filed: 10/07/22 19:08> Family History Family History: Family History Father No problems noted. Mother No problems noted. Maternal Aunt Breast cancer <BRENT Bravo - Last Filed: 10/07/22 19:08> Social History Social History: Social History Household Members: Spouse Housing: House Alcohol intake: never Patient Tobacco Use Status: Former Tobacco user e-Cigarette/Vaping Use: Never Used Second Hand Smoke Exposure: No Advance Directives: No Advance Directives Information Provided: Yes service: No Current occupational status: retired Cognitive needs: No Hearing needs: No Vision needs: No <BRENT Bravo - Last Filed: 10/07/22 19:08> Physical Exam Vital Signs: Vital Signs: Last Vital Signs Temp 97.3 F 10/07/22 18:49 Pulse 95 10/07/22 18:49 Resp 18 10/07/22 18:49 BP 141/75 H 10/07/22 18:49 Pulse Ox 89 L 10/07/22 18:49 O2 Del Method Room Air 10/07/22 18:49 BMI result Body Mass Index 37.3 <BRENT Bravo - Last Filed: 10/07/22 19:08> Vital Signs: Last Vital Signs Temp 97.3 F 10/07/22 18:49 Pulse 95 10/07/22 18:49 Resp 18 10/07/22 18:49 BP 141/75 H 10/07/22 18:49 Pulse Ox 89 L 10/07/22 18:49 O2 Del Method Room Air 10/07/22 18:49 BMI result Body Mass Index 37.3 VITAL SIGNS: Reviewed. GENERAL: Elderly, well nourished, in no acute distress. HEAD: Normocephalic/atraumatic EYES: PERRLA, EOMI EARS: Ext canals without abnormality NOSE: Nares patent bilateral OROPHARYNX: no oral lesions noted, posterior pharynx clear NECK: Supple, no adenopathy LUNGS: Decreased breath sounds bibasilar with noted rales, no tachypnea and no increased work of breathing while at rest SpO2<89> patient responded well to 2 L of nasal cannula and is currently oxygenating at 95% CARDIOVASCULAR: Regular rate and rhythm without noted murmurs, no JVD 2+ bilateral lower extremity edema ABDOMEN: Soft, non-tender, non-distended with bowel sounds. MUSCULOSKELETAL: No tenderness, deformities, or effusions noted on gross inspection. EXTREMITIES: No cyanosis, clubbing or edema. SKIN: Inspection of the skin reveals no rashes NEUROLOGIC: Alert and oriented x 4. Strength and sensation to light touch were grossly intact x 4. <Karen Fair MD - Last Filed: 10/07/22 23:17> Course Course Course Narrative: RME: 82-year-old female with a PMH significant for?CKD3, paroxysmal AFib on warfarin, HLD, HTN, mitral valve replacement, COPD c/o worsening SOB on exertion x few days, and pedal edema. Has been taking Lasix prescribed by [facility] which was previously discontinued on patient's prior admission to our facility in August. Denies CP, fever X-ray from 10/03/22 showing small bilateral pleural effusions with increasing congestion Sating 89% on RA in triage EKG, labs, CXR ordered Full HPI, ROS and PE to be performed by primary ED provider. <BRENT Bravo - Last Filed: 10/07/22 19:08> Medications Administered Discontinued Medications Generic Name Dose Route Start Last Admin Trade Name Freq PRN Reason Stop Dose Admin Furosemide 40 mg 10/07/22 20:10 10/07/22 20:41 Furosemide 40 Mg/4 Ml Vial IVPUSH 10/07/22 20:11 40 mg ONCE ONE Administration Protocol <BRENT Bravo - Last Filed: 10/07/22 19:08> Medications Administered Discontinued Medications Generic Name Dose Route Start Last Admin Trade Name Freq PRN Reason Stop Dose Admin Furosemide 40 mg 10/07/22 20:10 10/07/22 20:41 Furosemide 40 Mg/4 Ml Vial IVPUSH 10/07/22 20:11 40 mg ONCE ONE Administration Protocol <Karen Fair MD - Last Filed: 10/07/22 23:17> Medical Decision Making Medical Decision Making MDM Narrative: 82-year-old female with history and clinical presentation most consistent with CHF exacerbation and associated hypoxia. I have reviewed all investigations my interpretation is as patient has acute hypoxia secondary to CHF exacerbation with hypokalemia and acute on chronic kidney failure. Patient received Lasix, there is no evidence of acute infection. Patient also receiving p.o. potassium chloride replacement. 2315: I discussed case with inpatient hospitalist who accepts admission. <Karen Fair MD - Last Filed: 10/07/22 23:17> Differential Diagnosis Please see the discussion above <Karen Fair MD - Last Filed: 10/07/22 23:17> Lab Data Please see the discussion above <Karen Fair MD - Last Filed: 10/07/22 23:17> Result Diagrams: 10/07/22 19:19 10/07/22 19:19 <BRENT Bravo - Last Filed: 10/07/22 19:08> Labs: Lab Results 10/07/22 10/07/22 10/07/22 Range/Units 19:19 19:19 19:19 WBC 7.6 (4.8-10.8) X10*3/uL RBC 3.72 L (4.20-5.50) X10*6/uL Hgb 10.7 L (12.0-16.0) g/dl Hct 34.3 L (37.0-47.0) % MCV 92.2 (80.0-98.0) fL MCH 28.8 (27.0-33.0) pg MCHC 31.2 (31.0-35.0) g/dl RDW 14.7 (11.0-16.0) % Plt Count 184 D (160-400) X10*3/uL MPV 10.1 (9.4-12.3) fL Immature Gran % (Auto) 0.5 H (0.0-0.4) % Neut % (Auto) 77.9 H (45-73) % Lymph % (Auto) 12.2 L (20-40) % [place] % (Auto) 7.9 (2-11) % Eos % (Auto) 1.1 (0-4) % Baso % (Auto) 0.4 (0-2) % Lymph # (Auto) 0.9 L (1.2-4.9) X10*3/uL [place] # (Auto) 0.6 (0.1-1.2) X10*3/uL Eos # (Auto) 0.1 (0.0-0.4) X10*3/uL Baso # (Auto) 0.0 (0.0-0.2) X10*3/uL Abs Immat Gran (auto) 0.04 H (0.00-0.03) X10*3/uL Absolute Neuts (auto) 5.9 (2.0-8.3) x10*3/uL Absolute Nucleated RBC 0.000 (0.0-0.012) X10*3/uL Nucleated RBC % (auto) 0.0 (0.0-0.2) /100WBC PT 30.8 H (10.0-13.1) SEC INR 2.6 H (0.9-1.1) Sodium 146 H (135-145) mmol/L Potassium 3.2 L (3.3-5.1) mmol/L Chloride 107 (96-108) mmol/L Carbon Dioxide 28 (22-29) mmol/L Anion Gap 14 (12-20) BUN 7 L (9-16) mg/dL Creatinine 0.71 (0.5-1.4) mg/dL Estim Creat Clear Calc 69.4 Estimated GFR > 60 Random Glucose 112 (60-115) mg/dL Calcium 9.2 D (8.4-10.2) mg/dL Magnesium 1.8 (1.6-2.6) mg/dL Total Bilirubin 1.6 H (0.0-1.0) mg/dL Direct Bilirubin 0.4 (0.0-0.5) mg/dL AST 24 (5-31) U/L ALT 14 (0-31) U/L Alkaline Phosphatase 101 (39-117) U/L Troponin I High Sens (<3.5-17.0) ng/L B-Natriuretic Peptide (<100) pg/mL Total Protein 6.0 L (6.5-8.0) g/dL Albumin 3.6 (3.5-5.0) g/dL Urine Color Urine Appearance Urine pH (5.0-9.0) Ur Specific [place] (1.005-1.025) Urine Protein (Neg-Trace) mg/dL Urine Glucose (UA) (Negative) mg/dL Urine Ketones (Negative) mg/dL Urine Blood (Negative) Urine Nitrite (Negative) Ur Leukocyte Esterase (Negative) Urine RBC (0-2) /HPF Urine WBC (0-5) /HPF Ur Squamous Epith Cells (0-2) /HPF Urine Bacteria (None Seen) Hyaline Casts (0-2) /LPF 10/07/22 10/07/22 10/07/22 Range/Units 19:19 19:19 22:33 WBC (4.8-10.8) X10*3/uL RBC (4.20-5.50) X10*6/uL Hgb (12.0-16.0) g/dl Hct (37.0-47.0) % MCV (80.0-98.0) fL MCH (27.0-33.0) pg MCHC (31.0-35.0) g/dl RDW (11.0-16.0) % Plt Count (160-400) X10*3/uL MPV (9.4-12.3) fL Immature Gran % (Auto) (0.0-0.4) % Neut % (Auto) (45-73) % Lymph % (Auto) (20-40) % [place] % (Auto) (2-11) % Eos % (Auto) (0-4) % Baso % (Auto) (0-2) % Lymph # (Auto) (1.2-4.9) X10*3/uL [place] # (Auto) (0.1-1.2) X10*3/uL Eos # (Auto) (0.0-0.4) X10*3/uL Baso # (Auto) (0.0-0.2) X10*3/uL Abs Immat Gran (auto) (0.00-0.03) X10*3/uL Absolute Neuts (auto) (2.0-8.3) x10*3/uL Absolute Nucleated RBC (0.0-0.012) X10*3/uL Nucleated RBC % (auto) (0.0-0.2) /100WBC PT (10.0-13.1) SEC INR (0.9-1.1) Sodium (135-145) mmol/L Potassium (3.3-5.1) mmol/L Chloride (96-108) mmol/L Carbon Dioxide (22-29) mmol/L Anion Gap (12-20) BUN (9-16) mg/dL Creatinine (0.5-1.4) mg/dL Estim Creat Clear Calc Estimated GFR Random Glucose (60-115) mg/dL Calcium (8.4-10.2) mg/dL Magnesium (1.6-2.6) mg/dL Total Bilirubin (0.0-1.0) mg/dL Direct Bilirubin (0.0-0.5) mg/dL AST (5-31) U/L ALT (0-31) U/L Alkaline Phosphatase (39-117) U/L Troponin I High Sens 11.9 (<3.5-17.0) ng/L B-Natriuretic Peptide 283 H (<100) pg/mL Total Protein (6.5-8.0) g/dL Albumin (3.5-5.0) g/dL Urine Color Yellow Urine Appearance Clear Urine pH 7.0 (5.0-9.0) Ur Specific [place] <= 1.005 (1.005-1.025) Urine Protein Negative (Neg-Trace) mg/dL Urine Glucose (UA) Negative (Negative) mg/dL Urine Ketones Negative (Negative) mg/dL Urine Blood Trace H (Negative) Urine Nitrite Negative (Negative) Ur Leukocyte Esterase Moderate (2+) H (Negative) Urine RBC 3-5 H (0-2) /HPF Urine WBC 0-5 (0-5) /HPF Ur Squamous Epith Cells 0-2 (0-2) /HPF Urine Bacteria None Seen (None Seen) Hyaline Casts 0-2 (0-2) /LPF <BRENT Bravo - Last Filed: 10/07/22 19:08> Lab Results 10/07/22 10/07/22 10/07/22 Range/Units 19:19 19:19 19:19 WBC 7.6 (4.8-10.8) X10*3/uL RBC 3.72 L (4.20-5.50) X10*6/uL Hgb 10.7 L (12.0-16.0) g/dl Hct 34.3 L (37.0-47.0) % MCV 92.2 (80.0-98.0) fL MCH 28.8 (27.0-33.0) pg MCHC 31.2 (31.0-35.0) g/dl RDW 14.7 (11.0-16.0) % Plt Count 184 D (160-400) X10*3/uL MPV 10.1 (9.4-12.3) fL Immature Gran % (Auto) 0.5 H (0.0-0.4) % Neut % (Auto) 77.9 H (45-73) % Lymph % (Auto) 12.2 L (20-40) % [place] % (Auto) 7.9 (2-11) % Eos % (Auto) 1.1 (0-4) % Baso % (Auto) 0.4 (0-2) % Lymph # (Auto) 0.9 L (1.2-4.9) X10*3/uL [place] # (Auto) 0.6 (0.1-1.2) X10*3/uL Eos # (Auto) 0.1 (0.0-0.4) X10*3/uL Baso # (Auto) 0.0 (0.0-0.2) X10*3/uL Abs Immat Gran (auto) 0.04 H (0.00-0.03) X10*3/uL Absolute Neuts (auto) 5.9 (2.0-8.3) x10*3/uL Absolute Nucleated RBC 0.000 (0.0-0.012) X10*3/uL Nucleated RBC % (auto) 0.0 (0.0-0.2) /100WBC PT 30.8 H (10.0-13.1) SEC INR 2.6 H (0.9-1.1) Sodium 146 H (135-145) mmol/L Potassium 3.2 L (3.3-5.1) mmol/L Chloride 107 (96-108) mmol/L Carbon Dioxide 28 (22-29) mmol/L Anion Gap 14 (12-20) BUN 7 L (9-16) mg/dL Creatinine 0.71 (0.5-1.4) mg/dL Estim Creat Clear Calc 69.4 Estimated GFR > 60 Random Glucose 112 (60-115) mg/dL Calcium 9.2 D (8.4-10.2) mg/dL Magnesium 1.8 (1.6-2.6) mg/dL Total Bilirubin 1.6 H (0.0-1.0) mg/dL Direct Bilirubin 0.4 (0.0-0.5) mg/dL AST 24 (5-31) U/L ALT 14 (0-31) U/L Alkaline Phosphatase 101 (39-117) U/L Troponin I High Sens (<3.5-17.0) ng/L B-Natriuretic Peptide (<100) pg/mL Total Protein 6.0 L (6.5-8.0) g/dL Albumin 3.6 (3.5-5.0) g/dL Urine Color Urine Appearance Urine pH (5.0-9.0) Ur Specific [place] (1.005-1.025) Urine Protein (Neg-Trace) mg/dL Urine Glucose (UA) (Negative) mg/dL Urine Ketones (Negative) mg/dL Urine Blood (Negative) Urine Nitrite (Negative) Ur Leukocyte Esterase (Negative) Urine RBC (0-2) /HPF Urine WBC (0-5) /HPF Ur Squamous Epith Cells (0-2) /HPF Urine Bacteria (None Seen) Hyaline Casts (0-2) /LPF 10/07/22 10/07/22 10/07/22 Range/Units 19:19 19:19 22:33 WBC (4.8-10.8) X10*3/uL RBC (4.20-5.50) X10*6/uL Hgb (12.0-16.0) g/dl Hct (37.0-47.0) % MCV (80.0-98.0) fL MCH (27.0-33.0) pg MCHC (31.0-35.0) g/dl RDW (11.0-16.0) % Plt Count (160-400) X10*3/uL MPV (9.4-12.3) fL Immature Gran % (Auto) (0.0-0.4) % Neut % (Auto) (45-73) % Lymph % (Auto) (20-40) % [place] % (Auto) (2-11) % Eos % (Auto) (0-4) % Baso % (Auto) (0-2) % Lymph # (Auto) (1.2-4.9) X10*3/uL [place] # (Auto) (0.1-1.2) X10*3/uL Eos # (Auto) (0.0-0.4) X10*3/uL Baso # (Auto) (0.0-0.2) X10*3/uL Abs Immat Gran (auto) (0.00-0.03) X10*3/uL Absolute Neuts (auto) (2.0-8.3) x10*3/uL Absolute Nucleated RBC (0.0-0.012) X10*3/uL Nucleated RBC % (auto) (0.0-0.2) /100WBC PT (10.0-13.1) SEC INR (0.9-1.1) Sodium (135-145) mmol/L Potassium (3.3-5.1) mmol/L Chloride (96-108) mmol/L Carbon Dioxide (22-29) mmol/L Anion Gap (12-20) BUN (9-16) mg/dL Creatinine (0.5-1.4) mg/dL Estim Creat Clear Calc Estimated GFR Random Glucose (60-115) mg/dL Calcium (8.4-10.2) mg/dL Magnesium (1.6-2.6) mg/dL Total Bilirubin (0.0-1.0) mg/dL Direct Bilirubin (0.0-0.5) mg/dL AST (5-31) U/L ALT (0-31) U/L Alkaline Phosphatase (39-117) U/L Troponin I High Sens 11.9 (<3.5-17.0) ng/L B-Natriuretic Peptide 283 H (<100) pg/mL Total Protein (6.5-8.0) g/dL Albumin (3.5-5.0) g/dL Urine Color Yellow Urine Appearance Clear Urine pH 7.0 (5.0-9.0) Ur Specific [place] <= 1.005 (1.005-1.025) Urine Protein Negative (Neg-Trace) mg/dL Urine Glucose (UA) Negative (Negative) mg/dL Urine Ketones Negative (Negative) mg/dL Urine Blood Trace H (Negative) Urine Nitrite Negative (Negative) Ur Leukocyte Esterase Moderate (2+) H (Negative) Urine RBC 3-5 H (0-2) /HPF Urine WBC 0-5 (0-5) /HPF Ur Squamous Epith Cells 0-2 (0-2) /HPF Urine Bacteria None Seen (None Seen) Hyaline Casts 0-2 (0-2) /LPF <Karen Fair MD - Last Filed: 10/07/22 23:17> Independent Interpretation I performed an independent interpretation of an: EKG <Karen Fair MD - Last Filed: 10/07/22 23:17> Interpretation: Atrial fibrillation, HR -89, no STEMI, QRS/QTC is with then reasonable limits <Karen Fair MD - Last Filed: 10/07/22 23:17> Radiology Impression Radiologist Impression: My interpretation is in agreement with radiology's impression of the imaging studies. <Karen Fair MD - Last Filed: 10/07/22 23:17> External Record Review External record reviewed: Outpatient record and Prior outpatient labs <Karen Fair MD - Last Filed: 10/07/22 23:17> Chronic Conditions Patient?s care impacted by: Hypertension <Karen Fair MD - Last Filed: 10/07/22 23:17> Discharge Plan Discharge Clinical Impression: SUAREZ (dyspnea on exertion), CHF exacerbation, Hypoxia <BRENT Bravo - Last Filed: 10/07/22 19:08> Patient Disposition: Admitted As Inpatient <BRENT Bravo - Last Filed: 10/07/22 19:08> Prescriptions: No Action amlodipine 2.5 mg tablet 2.5 mg PO DAILY Qty: 90 3RF potassium chloride 20 mEq tablet,ER particles/crystals 20 meq PO DAILY Qty: 14 0RF furosemide [Lasix] 40 mg tablet 40 mg PO DAILY 5 Days Qty: 5 0RF atorvastatin 80 mg tablet 80 mg PO DAILY warfarin 2.5 mg tablet 2.5 mg PO DAILY@1200 Protocol: Dose Management Condition: Saturday (Week One) Dose/Route: 1.25 mg Instruction: 0.5 x 2.5 mg tablets Condition: Saturday Dose/Route: 2.5 mg Instruction: 1 x 2.5 mg tablet Condition: Saturday Dose/Route: 2.5 mg Instruction: 1 x 2.5 mg tablet Condition: Saturday Dose/Route: 2.5 mg Instruction: 1 x 2.5 mg tablet Condition: Dose/Route: 0 mg Instruction: 0 tablets Condition: Saturday Dose/Route: 2.5 mg Instruction: 1 x 2.5 mg tablet Condition: Saturday Dose/Route: 2.5 mg Instruction: 1 x 2.5 mg tablet Condition: Saturday (Week Two) Dose/Route: 1.25 mg Instruction: 0.5 x 2.5 mg tablets Condition: Saturday Dose/Route: 2.5 mg Instruction: 1 x 2.5 mg tablet Condition: Saturday Dose/Route: 2.5 mg Instruction: 1 x 2.5 mg tablet Condition: Saturday Dose/Route: 1.25 mg Instruction: 0.5 x 2.5 mg tablets Condition: Dose/Route: 2.5 mg Instruction: 1 x 2.5 mg tablet Condition: Saturday Dose/Route: 2.5 mg Instruction: 1 x 2.5 mg tablet Condition: Saturday Dose/Route: 2.5 mg Instruction: 1 x 2.5 mg tablet Protocol Text: Adjustment Start Date: Saturday10/03/22 INR Value: 3.9 INR Date: 10/03/22 Recheck Date: 10/10/22 Additional Instructions: hold dose tomm of warfarin reduce weekly dosing to 1.25mg every saturday and saturday eat greens to lower inr, no reds for 2-3 days omeprazole 20 mg capsule,delayed release(DR/EC) 20 mg PO BID albuterol sulfate 90 mcg/actuation HFA aerosol inhaler 2 puff inhalation Q4-6H PRN (Reason: sh) atenolol 50 mg tablet 50 mg PO DAILY <BRENT Bravo - Last Filed: 10/07/22 19:08>
--- NOTE | 2022-10-07 18:51 | ECG_ITS ---
Test Reason : shortness of breath Blood Pressure : / mmHG Vent. Rate : 089 BPM Atrial Rate : 000 BPM P-R Int : 000 ms QRS Dur : 102 ms QT Int : 398 ms P-R-T Axes : 000 087 047 degrees QTc Int : 484 ms Atrial fibrillation vs flutter Nonspecific ST and T wave abnormality Abnormal ECG When compared with ECG of 24-AUG-2022 01:14, No significant changes seen Referred By: Francisca Green Electronically Signed By:NATE VILLEGAS
[2022-10-07 19:27] LABS: MANUAL DIFF FLAG NO
[2022-10-07 19:28] LABS: Basophils Percent Auto 0.4 % (0-2); Eosinophils Absolute Auto 0.1 X10*3/uL (0.0-0.4); Eosinophils Percent Auto 1.1 % (0-4); Hematocrit 34.3 % (37.0-47.0); Hemoglobin 10.7 g/dl (12.0-16.0); Imm Gran Abs Auto 0.04 X10*3/uL (0.00-0.03); Imm Gran Pct Auto 0.5 % (0.0-0.4); Lymphocytes Absolute Auto 0.9 X10*3/uL (1.2-4.9); Lymphocytes Percent Auto 12.2 % (20-40); Mean Corpuscular HGB Conc 31.2 g/dl (31.0-35.0); Mean Corpuscular Hemoglobin 28.8 pg (27.0-33.0); Mean Corpuscular Volume 92.2 fL (80.0-98.0); Mean Platelet Volume 10.1 fL (9.4-12.3); Monocytes Absolute Auto 0.6 X10*3/uL (0.1-1.2); Monocytes Percent Auto 7.9 % (2-11); Neutrophils Absolute Auto 5.9 x10*3/uL (2.0-8.3); Neutrophils Percent Auto 77.9 % (45-73); Platelet Count 184 X10*3/uL (160-400); Red Blood Count 3.72 X10*6/uL (4.20-5.50); Red Cell Distribution Width 14.7 % (11.0-16.0); White Blood Count 7.6 X10*3/uL (4.8-10.8)
--- NOTE | 2022-10-07 19:29 | PC.NURSE ---
This automatic typewriter inspector assumed care of this Pt at 1900. Pt A&)x3, reports increasing SOB x 5 days, Pt sat o2 89%,placed on 2L via NC. Pt speaking in full sentences, states just getting up from W/C to scale worked my breathing . Lung sounds clear with slight crackles through, BLL swelling noted. Pt placed on bedside monitor, EKG obtained and reviewed by Dr. Fair. IV line placed, blood work collected and sent to lab.
[2022-10-07 19:40] LABS: INTERNATIONAL NORM RATIO 2.6 (0.9-1.1); Prothrombin Time 30.8 SEC (10.0-13.1)
[2022-10-07 19:49] LABS: Alanine Aminotransferase 14 U/L (0-31); Albumin Level 3.6 g/dL (3.5-5.0); Alkaline Phosphatase 101 U/L (39-117); Anion Gap 14 (12-20); Aspartate Amino Transferase 24 U/L (5-31); Bilirubin Direct 0.4 mg/dL (0.0-0.5); Bilirubin Total 1.6 mg/dL (0.0-1.0); Blood Urea Nitrogen 7 mg/dL (9-16); Calcium 9.2 mg/dL (8.4-10.2); Carbon Dioxide 28 mmol/L (22-29); Chloride 107 mmol/L (96-108); Creatinine Clr Calc Pharmacy 69.4; Estimated Glomerular Filt Rate > 60; Glucose Random 112 mg/dL (60-115); Magnesium 1.8 mg/dL (1.6-2.6); Potassium 3.2 mmol/L (3.3-5.1); Sodium 146 mmol/L (135-145)
[2022-10-07 19:51] LABS: B Type Natriuretic Peptide 283 pg/mL (<100)
[2022-10-07 19:55] LABS: Troponin-I High Sensitivity 11.9 ng/L (<3.5-17.0)
[2022-10-07 20:08] VITALS: O2SAT 99
[2022-10-07] MEDS: Furosemide 40 MG/4 ML VIAL IVPUSH (20:41)
[2022-10-07 22:58] LABS: Color Urine Yellow; Glucose Urine UA Negative (Negative); Leukocyte Esterase Urine Moderate (2+) (Negative); Nitrite Urine Negative (Negative); Specific Gravity - Urine <= 1.005 (1.005-1.025); UMIC TRIGGER UACC YES; Urine Blood Trace (Negative); Urine Ketones Negative (Negative); Urine Protein Negative (Neg-Trace)
[2022-10-07 22:59] LABS: Appearance Urine Clear
[2022-10-07 23:00] LABS: Bacteria Urine None Seen (None Seen); Hyaline Casts Urine 0-2 /LPF (0-2); Squamous Epithelial Cell Urine 0-2 /HPF (0-2); WBC Urine 0-5 /HPF (0-5)
[2022-10-07] MEDS: Potassium Chloride ER 20 MEQ TAB.ER.PRT 60 MEQ PO (23:53)
[2022-10-08] VITALS (12 sets, daily range): BP systolic 129–171; BP diastolic 62–84; PULSE 80–98; RESP 16–22; TEMP 36–37.1; O2SAT 88–95; BMI 36.4; BMI 36.5
--- NOTE | 2022-10-08 00:50 | PC.NURSE ---
RN to RN report given to Rowan. Pt will be transported to room 467. Pt aware of plan.
[2022-10-08] MEDS: 0.9 % Sodium Chloride Flush 3 ML SYRINGE IVFLUSH ×4 (01:52→17:30)
--- NOTE | 2022-10-08 05:44 | P.HPHOSP_ITS ---
History of Present Illness Date of Service: 10/07/22 Chief Complaint: Shortness of breath 82-year-old female past medical history of CKD stage 3, paroxysmal AFib, on warfarin, HDL, HTN, mitral valve replacement, COPD who presents to the hospital with complaints of shortness of breath, and progressive weakness. Patient reports her symptoms have been worsening over the past 3 days, associated with lower extremity edema, orthopnea, PND, has been using CPAP at bedtime, but has also needed her oxygen during the day because she feels short of breath. She is also stating that ever since being discharged from the hospital on August, she has stopped taking her Lasix. Denies any chest pain, no abdominal pain nausea or vomiting, no diarrhea constipation, no urinary symptoms. No numbness or tingling. Denies any cough, or increased sputum production On arrival to the ED patient found to be 89% on room air Labs are significant for WBC count of 7.6, hemoglobin of 10.7, hematocrit 34.3, INR of 2.6, potassium 3.2, creatinine of 0.0 0.71 which is around her baseline, BNP of 283, UA positive for leukocyte Estrace, WBC Chest x-ray low yield but shows possible effusions, and pulmonary edema Patient will be admitted for further management Review of Systems Review of Systems: Yes all other systems are reviewed and are negative [facility] Medical History A-fib CKD (chronic kidney disease) stage 3, GFR 30-59 ml/min COPD (chronic obstructive pulmonary disease) HTN (hypertension) Hyperlipidemia 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 Mother No problems noted. Maternal Aunt Breast cancer Surgical History History of open reduction and internal fixation (ORIF) procedure Hx of hernia repair Social History Household Members: Spouse Housing: House Do you presently have visiting nurse or other home services: No Alcohol intake: never Patient Tobacco Use Status: Former Tobacco user Tobacco use type: Cigarette Smoked in Last 30 Days: No e-Cigarette/Vaping Use: Never Used Second Hand Smoke Exposure: No Use of substances other than those prescribed or required for medical reasons: No Currently Displaying Signs/Symptoms of Drug Intoxication Withdrawal: No Any prior treatment program specific to substance use: No Have you been hit, kicked, punched, or otherwise hurt by someone within the past year? If so, by whom?: No Do you feel safe in your current relationship?: Yes Is there a partner from a previous relationship who is making you feel unsafe now?: No Are you made to feel afraid or neglected: No Advance Directives: No Advance Directives Information Provided: Yes Do you have thoughts of harming others: None Do you have a plan to hurt others: No Plan Recently lost weight without trying: Yes How much weight loss: 24-33 pounds Eating poorly because of decreased appetite: Yes Nutrition screen score: 6 Nutrition Risks: No Nutritional Risk Patient : No service: No Current occupational status: retired Cognitive needs: No Hearing needs: No Vision needs: No Meds Allergies Allergy/AdvReac Type Severity Reaction Status Date / Time acetaminophen [From Vicodin] Allergy Intermediate per patient Verified 10/07/22 18:49 hydrocodone [From Vicodin] Allergy Mild CHEST PAIN Verified 10/07/22 18:49 Active Medications: Current Medications Docusate Sodium (Docusate Sodium 100 Mg Capsule) 100 mg PO DAILY PRN PRN Reason: Constipation Furosemide (Furosemide 40 Mg/4 Ml Vial) 40 mg IVPUSH BID@0800,1700 [facility]; Protocol Ondansetron HCl (Ondansetron Hcl 4 Mg/2 Ml Vial) 4 mg IVPUSH Q8H PRN PRN Reason: Nausea and Vomiting Sodium Chloride (0.9 % Sodium Chloride Flush 3 Ml Syringe) 3 ml IVFLUSH QSHIFT [facility] Last Admin: 10/08/22 01:52 Dose: 3 ml Home Medications Medication Instructions Recorded Confirmed Last Taken Type albuterol sulfate 90 mcg/actuation 2 puff inhalation Q4-6H PRN 08/24/22 10/08/22 Unknown History aerosol inhaler atenolol 50 mg tablet 50 mg PO DAILY 08/24/22 10/08/22 Unknown History atorvastatin 80 mg tablet 80 mg PO DAILY 08/24/22 10/08/22 Unknown History omeprazole 20 mg capsule,delayed 20 mg PO BID 08/24/22 10/08/22 Unknown History release warfarin 2.5 mg tablet 2.5 mg PO DAILY@1200 08/24/22 10/08/22 Unknown History Physical Exam Vital Signs and Narrative: Vital Signs: Last Vital Signs Temp 97.8 F 10/08/22 04:00 Pulse 85 10/08/22 04:00 Resp 22 H 10/08/22 04:36 BP 130/75 10/08/22 04:00 Pulse Ox 90 L 10/08/22 04:00 O2 Del Method CPAP 10/08/22 04:00 O2 Flow Rate 2 10/08/22 00:50 BMI result Body Mass Index 36.5 Const: General: cooperative and no acute distress Orientation/consciousness: patient oriented x3 Eyes: General: appearance normal, both eyes and all related structures Resp: Other: Crackles bilaterally Effort & Inspection: normal respiratory effort Cardio: Rate: regular rate Rhythm: regular rhythm GI: Palpation (GI): Soft to palpation Auscultation: normal bowel sounds Skin: General skin exam: no rashes or lesions noted Neuro: General: patient oriented x3 Cognition (Neuro): normal cognition Extrem: Other: 2+ pitting edema in the lower extremities General: Yes normal to inspection Results Labs 10/07/22 19:19 10/07/22 19:19 Labs: Laboratory Results - last 24 hr 10/07/22 10/07/22 10/07/22 19:19 19:19 19:19 MCV 92.2 MCH 28.8 MCHC 31.2 RDW 14.7 Plt Count 184 D MPV 10.1 Immature Gran % (Auto) 0.5 H Neut % (Auto) 77.9 H Lymph % (Auto) 12.2 L [place] % (Auto) 7.9 Eos % (Auto) 1.1 Baso % (Auto) 0.4 Lymph # (Auto) 0.9 L [place] # (Auto) 0.6 Eos # (Auto) 0.1 Baso # (Auto) 0.0 Abs Immat Gran (auto) 0.04 H Absolute Neuts (auto) 5.9 Absolute Nucleated RBC 0.000 Nucleated RBC % (auto) 0.0 PT 30.8 H INR 2.6 H Anion Gap 14 Estim Creat Clear Calc 69.4 Estimated GFR > 60 Random Glucose 112 Calcium 9.2 D Magnesium 1.8 Total Bilirubin 1.6 H Direct Bilirubin 0.4 AST 24 ALT 14 Alkaline Phosphatase 101 Troponin I High Sens B-Natriuretic Peptide Total Protein 6.0 L Albumin 3.6 Urine Color Urine Appearance Urine pH Ur Specific [place] Urine Protein Urine Glucose (UA) Urine Ketones Urine Blood Urine Nitrite Ur Leukocyte Esterase Urine RBC Urine WBC Ur Squamous Epith Cells Urine Bacteria Hyaline Casts 10/07/22 10/07/22 10/07/22 19:19 19:19 22:33 MCV MCH MCHC RDW Plt Count MPV Immature Gran % (Auto) Neut % (Auto) Lymph % (Auto) [place] % (Auto) Eos % (Auto) Baso % (Auto) Lymph # (Auto) [place] # (Auto) Eos # (Auto) Baso # (Auto) Abs Immat Gran (auto) Absolute Neuts (auto) Absolute Nucleated RBC Nucleated RBC % (auto) PT INR Anion Gap Estim Creat Clear Calc Estimated GFR Random Glucose Calcium Magnesium Total Bilirubin Direct Bilirubin AST ALT Alkaline Phosphatase Troponin I High Sens 11.9 B-Natriuretic Peptide 283 H Total Protein Albumin Urine Color Yellow Urine Appearance Clear Urine pH 7.0 Ur Specific [place] <= 1.005 Urine Protein Negative Urine Glucose (UA) Negative Urine Ketones Negative Urine Blood Trace H Urine Nitrite Negative Ur Leukocyte Esterase Moderate (2+) H Urine RBC 3-5 H Urine WBC 0-5 Ur Squamous Epith Cells 0-2 Urine Bacteria None Seen Hyaline Casts 0-2 Imaging Radiologist's Impressions: Impressions Chest X-Ray 10/07/22 19:49 FINDINGS/IMPRESSION: The study is significantly limited by portable technique, low lung volumes, patient body habitus, rotation, and overlying leads. There has been no gross significant radiographic change compared with 4 days prior. Findings may demonstrate prominence of the pulmonary veins in their nondependent portions, suggesting pulmonary venous hypertension. There may be mild diffuse interstitial prominence. Small bibasilar hazy densities suggest small effusions, atelectasis, and/infiltrates, left worse than right. Findings raise suspicion for mild pulmonary edema. The cardiac silhouette is suboptimally evaluated, probably enlarged. The aorta is atherosclerotic. The tips of left subclavian pulse generator device leads project over the right atrium and right ventricle. The patient may be status post cardiac valve replacement surgery. Status post median sternotomy. Right rib fracture deformities. Assessment and Plan (1) Acute respiratory failure with hypoxia: Status: Acute (2) SUAREZ (dyspnea on exertion): Status: Acute (3) CHF exacerbation: Qualifiers: Heart failure type: unspecified Qualified Code(s): I50.9 - Heart failure, unspecified Status: Acute Plan 82-year-old female with past medical history of CHF presents to the hospital in acute respiratory failure secondary to CHF exacerbation # acute hypoxic respiratory failure - secondary to CHF exacerbation - pneumonia less likely, PE less likely - Will treat with IV Lasix, continue O2 as required - monitor respiratory status # acute CHF exacerbation - has not been on her furosemide since August - will treat with IV Lasix, strict I&O, low-sodium diet, daily weight - cardiology consulted - will obtain echocardiogram - monitor respiratory status # hypokalemia - potassium repleted - follow BMP # history of paroxysmal AFib - rate controlled, therapeutic INR - continue warfarin and atenolol # hypertension -stable - continue antihypertensives # GORDON - on CPAP at bedtime- continue DVT prophylaxis: Warfarin Given patient's need for oxygen, and acute CHF exacerbation eating Lasix patient will require minimum 2 nights inpatient hospital stay for further management Time Spent With Patient Time: Total time managing care of this patient today ____ minutes. Quality Stroke Does the patient have a stroke diagnosis?: No VTE Prior VTE?: No VTE Risk Level:: Medical - moderate - high VTE Device Contraindication: Treatment Not Indicated VTE Drug Contraindication: N/A - Med Ordered
[2022-10-08] MEDS: cefTRIAXone sodium 1 GM in 0.9 % Sodium Chloride 50 ML IV (06:25)
[2022-10-08] MEDS: Omeprazole 20 MG CAPSULE.DR PO ×2 (06:29→17:22)
--- NOTE | 2022-10-08 07:00 | CA_ITS ---
Transthoracic Echocardiogram Patient (Last, First, Middle): Ramona Pinon J Gender: Female Date of : 1940 Age: 82 Procedure Date: 10/08/2022 Procedure Type: Transthoracic Echocardiogram Location: [facility] [place] Height: 160. cm Weight: 93.44 kg BSA: 1.96 m2 Heart Rate: 87 bpm BP: 154 / 80 mmHg Explosive Operator Bomb: KASSANDRA Referring MD: Kashif Guallpa MD Symptoms: acute chf Study Quality: Technically Difficult ECG Rhythm: Atrial Fibrillation Conclusions: - LVEF difficult to assess, but suspect about 40%. - There is severely decreased right ventricular systolic function. - Severe biatrial enlargement. - A bioprosthetic mitral valve is present. There is no mitral valve regurgitation. Mean gradient across the mitral valve 8 mm Hg at 89/Min. Elevated. - Mild pulmonary hypertension is present. - The inferior vena cava is mildly dilated and collapses less than 50% with inspiration. Findings Procedure Information Contrast agent, definity, is being given per protocol without apparent complications. Left Ventricle Normal left ventricular cavity size. There is mildly increased left ventricular wall thickness. The left ventricular systolic function is moderately decreased. Regional wall motion abnormalities can not be excluded due to suboptimal endocardial definition. There is moderate global hypokinesis. Diastolic function is indeterminate on the basis of available data. LVEF difficult to assess, but suspect about 40%. Right Ventricle Moderately increased right ventricular cavity size. There is severely decreased right ventricular systolic function. Atria Severe biatrial enlargement. Aortic Valve There is a normal trileaflet aortic valve. There is no aortic valve stenosis. There is no aortic valve regurgitation. Mitral Valve A bioprosthetic mitral valve is present. The mitral valve was not well visualized. There is no mitral valve regurgitation. Mean gradient across the mitral valve 8 mm Hg at 89/Min. Elevated. Pulmonic Valve The pulmonic valve is likely normal. Tricuspid Valve There is mild tricuspid valve regurgitation. Mild pulmonary hypertension is present. History of tricuspid annular ring. Mean gradient across the tricuspid valve about 3 mm Hg at 80/Min. Great Vessels The asc aorta is normal in size. Venous The inferior vena cava is mildly dilated and collapses less than 50% with inspiration. Pericardium/Pleural There is no evidence of pericardial effusion. Prior Study Comparison No prior study available for comparison. Measurements 2D Linear Measurements IVSd: 1.01 0.6-0.9/0.6-1.0 cm LVIDd: 4.69 3.9-5.3/4.2-5.9 cm LVIDd Index: 2.39 2.4-3.2/2.2-3.1 cm/m2 LVIDs: 3.21 2.0-3.6 cm LVPWd: 1.22 0.7-1.1 cm LA Diam: 5.50 2.7-3.8/3.0-4.0 cm LAIDs Index: 2.81 1.5-2.3 cm/m2 LV Mass: 237.34 67-162/88-224 g LV Mass Index: 121.09 43-95/49-115 g/m2 LVOT Diam: 2.10 3.0+(-)1.3 cm 2D Systolic Function EF 4C: 42.20 >55% EF 2C: 29.30 >55% EF BiP: 37.10 >55% Mitral Valve MV VTI: 0.44 MV Pk Sivakumar: 2.07 MV Mn Sivakumar: 1.14 MV Pk Grad: 17.00 MV Mn Grad: 6.00 MV Pk E: 1.85 MV Decel Time: 218.00 E'Lateral: 5.51 E'Medial: 3.41 E/E' Med: 54.30 E/E' Lat: 33.60 PHT: 64.00 MVA PHT: 3.44 MVA Continuity: 1.52 Decel Mcdowell: 8.52 Aortic Valve AoV Pk Sivakumar: 1.31 AoV Pk Grad: 7.00 RORY: 2.10 LVOT LVOT Pk Sivakumar: 0.80 LVOT Mn Sivakumar: 0.57 LVOT VTI: 0.19 LVOT Pk Grad: 3.00 LVOT Mn Grad: 1.00 LVOT Diam: 2.10 LVOT Area: 3.46 Diastolic Function MV Pk E: 1.85 E'Medial: 3.41 E/E' Med: 54.30 E' Laterial: 5.51 E/E' Lat: 33.60 Right Ventricle TAPSE (mm): 6.00 TVS' Sivakumar: 8.60 Tricuspid Valve TV Pk Sivakumar: 1.53 TV Mn Sivakumar: 0.82 TV Pk Grad: 9.00 TV Mn Grad: 3.00 TR Pk Sivakumar: 2.72 TR Pk Grad: 30.00 RA Press: 15.00 RVSP: 45.00 Great Vessels Aorta Sinus of Valsalva: 3.40 2.0-3.5 cm Ao Asc: 3.20 2.1-3.4 cm Pulmonary Valve PV Pk Sivakumar: 1.14 Peak PV Grad: 5.00 Updated in Other Vendor System with Status of Final Shashank Santana MD electronically signed on 10/08/2022 4:39:49 PM with status of Final
[2022-10-08 07:03] LABS: INTERNATIONAL NORM RATIO 2.5 (0.9-1.1); Prothrombin Time 29.2 SEC (10.0-13.1)
[2022-10-08 07:25] LABS: Alanine Aminotransferase 13 U/L (0-31); Albumin Level 3.4 g/dL (3.5-5.0); Alkaline Phosphatase 99 U/L (39-117); Anion Gap 13 (12-20); Aspartate Amino Transferase 19 U/L (5-31); Bilirubin Total 1.5 mg/dL (0.0-1.0); Blood Urea Nitrogen 6 mg/dL (9-16); Calcium 9.1 mg/dL (8.4-10.2); Carbon Dioxide 32 mmol/L (22-29); Chloride 106 mmol/L (96-108); Creatinine Clr Calc Pharmacy 66.7; Estimated Glomerular Filt Rate > 60; Glucose Random 101 mg/dL (60-115); Potassium 3.7 mmol/L (3.3-5.1); Sodium 147 mmol/L (135-145); Total Protein 5.6 g/dL (6.5-8.0)
--- NOTE | 2022-10-08 08:18 | MHC.CM.PN ---
CM met with Patient at bedside and addressed IMM with her, providing her with the original and placing a copy on the chart. Patient lives in a house with her and she uses a cane because as she explains, she needs a kneed replacement. Home self care vs new vna is the tentative plan and CM has initiated and will follow for dc planning. Patient has declined completing a HCP. Patient has received Covid vax x5 and her PCP is Dr. Kiesha Macedo.
[2022-10-08] MEDS: Furosemide 40 MG/4 ML VIAL IVPUSH ×2 (09:47→17:21)
[2022-10-08] MEDS: Atorvastatin Calcium 80 MG TABLET PO (09:48)
[2022-10-08] MEDS: atenoloL 50 MG TABLET PO (09:48)
[2022-10-08] MEDS: amLODIPine Besylate 2.5 MG TABLET PO (09:48)
[2022-10-08] MEDS: Potassium Chloride ER 20 MEQ TAB.ER.PRT PO (09:49)
--- NOTE | 2022-10-08 10:16 | P.PNIM_ITS ---
Subjective Subjective Date of Service: 10/08/22 Review of Systems Follow up CHF feeling better with cpap mask on some sob but improved Physical Exam Vital Signs: Vital Signs: Last Vital Signs Temp 97.1 F 10/08/22 07:11 Pulse 83 10/08/22 07:11 Resp 20 10/08/22 07:11 BP 154/80 H 10/08/22 07:11 Pulse Ox 88 L 10/08/22 07:11 O2 Del Method CPAP 10/08/22 07:11 O2 Flow Rate 2 10/08/22 00:50 BMI result Body Mass Index 36.5 Appearing in no acute distress lung sounds rales heart regular rate rhythm, clear S1, S2, mild LE edema positive bowel sounds, abdomen is soft, nontender neuro patient is alert x3, no focal deficits Objective Data Active Medications Albuterol Sulfate (Albuterol Sulfate 90 Mcg 8 Gm Inhaler) 2 puff INHALE RQ4H PRN PRN Reason: sh Amlodipine Besylate (Amlodipine Besylate 2.5 Mg Tablet) 2.5 mg PO DAILY [facility]; Protocol Last Admin: 10/08/22 09:48 Dose: 2.5 mg Documented By: GOVIND Atenolol (Atenolol 50 Mg Tablet) 50 mg PO DAILY [facility]; Protocol Last Admin: 10/08/22 09:48 Dose: 50 mg Documented By: GOVIND Atorvastatin Calcium (Atorvastatin Calcium 80 Mg Tablet) 80 mg PO DAILY [facility] Last Admin: 10/08/22 09:48 Dose: 80 mg Documented By: GOVIND Docusate Sodium (Docusate Sodium 100 Mg Capsule) 100 mg PO DAILY PRN PRN Reason: Constipation Furosemide (Furosemide 40 Mg/4 Ml Vial) 40 mg IVPUSH BID@0800,1700 [facility]; Protocol Last Admin: 10/08/22 09:47 Dose: 40 mg Documented By: GOVIND Ceftriaxone Sodium 1 gm/ (Sodium Chloride) 50 mls @ 100 mls/hr IV Q24H [facility] Last Infusion: 10/08/22 07:08 Dose: 0 mls/hr Documented By: ALLI Omeprazole (Omeprazole 20 Mg Capsule.) 20 mg PO BID@0630,1630 [facility] Last Admin: 10/08/22 06:29 Dose: 20 mg Documented By: ALLI Ondansetron HCl (Ondansetron Hcl 4 Mg/2 Ml Vial) 4 mg IVPUSH Q8H PRN PRN Reason: Nausea and Vomiting Potassium Chloride (Potassium Chloride Er 20 Meq Tab.Er.Prt) 20 meq PO DAILY [facility] Last Admin: 10/08/22 09:49 Dose: 20 meq Documented By: GOVIND Sodium Chloride (0.9 % Sodium Chloride Flush 3 Ml Syringe) 3 ml IVFLUSH QSHIFT [facility] Last Admin: 10/08/22 09:48 Dose: 3 ml Documented By: GOVIND Warfarin Sodium (Warfarin Sodium 2.5 Mg Tablet) 2.5 mg PO DAILY@1200 [facility] Labs 10/07/22 19:19 10/08/22 06:31 Labs: Laboratory Results - last 24 hr 10/07/22 10/07/22 10/07/22 19:19 19:19 19:19 MCV 92.2 MCH 28.8 MCHC 31.2 RDW 14.7 Plt Count 184 D MPV 10.1 Immature Gran % (Auto) 0.5 H Neut % (Auto) 77.9 H Lymph % (Auto) 12.2 L [place] % (Auto) 7.9 Eos % (Auto) 1.1 Baso % (Auto) 0.4 Lymph # (Auto) 0.9 L [place] # (Auto) 0.6 Eos # (Auto) 0.1 Baso # (Auto) 0.0 Abs Immat Gran (auto) 0.04 H Absolute Neuts (auto) 5.9 Absolute Nucleated RBC 0.000 Nucleated RBC % (auto) 0.0 PT 30.8 H INR 2.6 H Anion Gap 14 Estim Creat Clear Calc 69.4 Estimated GFR > 60 Random Glucose 112 Calcium 9.2 D Magnesium 1.8 Total Bilirubin 1.6 H Direct Bilirubin 0.4 AST 24 ALT 14 Alkaline Phosphatase 101 Troponin I High Sens B-Natriuretic Peptide Total Protein 6.0 L Albumin 3.6 Urine Color Urine Appearance Urine pH Ur Specific [place] Urine Protein Urine Glucose (UA) Urine Ketones Urine Blood Urine Nitrite Ur Leukocyte Esterase Urine RBC Urine WBC Ur Squamous Epith Cells Urine Bacteria Hyaline Casts 10/07/22 10/07/22 10/07/22 19:19 19:19 22:33 MCV MCH MCHC RDW Plt Count MPV Immature Gran % (Auto) Neut % (Auto) Lymph % (Auto) [place] % (Auto) Eos % (Auto) Baso % (Auto) Lymph # (Auto) [place] # (Auto) Eos # (Auto) Baso # (Auto) Abs Immat Gran (auto) Absolute Neuts (auto) Absolute Nucleated RBC Nucleated RBC % (auto) PT INR Anion Gap Estim Creat Clear Calc Estimated GFR Random Glucose Calcium Magnesium Total Bilirubin Direct Bilirubin AST ALT Alkaline Phosphatase Troponin I High Sens 11.9 B-Natriuretic Peptide 283 H Total Protein Albumin Urine Color Yellow Urine Appearance Clear Urine pH 7.0 Ur Specific [place] <= 1.005 Urine Protein Negative Urine Glucose (UA) Negative Urine Ketones Negative Urine Blood Trace H Urine Nitrite Negative Ur Leukocyte Esterase Moderate (2+) H Urine RBC 3-5 H Urine WBC 0-5 Ur Squamous Epith Cells 0-2 Urine Bacteria None Seen Hyaline Casts 0-2 10/08/22 10/08/22 06:31 06:31 MCV MCH MCHC RDW Plt Count MPV Immature Gran % (Auto) Neut % (Auto) Lymph % (Auto) [place] % (Auto) Eos % (Auto) Baso % (Auto) Lymph # (Auto) [place] # (Auto) Eos # (Auto) Baso # (Auto) Abs Immat Gran (auto) Absolute Neuts (auto) Absolute Nucleated RBC Nucleated RBC % (auto) PT 29.2 H INR 2.5 H Anion Gap 13 Estim Creat Clear Calc 66.7 Estimated GFR > 60 Random Glucose 101 Calcium 9.1 Magnesium Total Bilirubin 1.5 H Direct Bilirubin AST 19 ALT 13 Alkaline Phosphatase 99 Troponin I High Sens B-Natriuretic Peptide Total Protein 5.6 L Albumin 3.4 L Urine Color Urine Appearance Urine pH Ur Specific [place] Urine Protein Urine Glucose (UA) Urine Ketones Urine Blood Urine Nitrite Ur Leukocyte Esterase Urine RBC Urine WBC Ur Squamous Epith Cells Urine Bacteria Hyaline Casts Assessment and Plan (1) Acute respiratory failure with hypoxia: Status: Acute Plan 82-year-old female with past medical history of CHF presents to the hospital in acute respiratory failure secondary to CHF exacerbation Acute hypoxic respiratory failure secondary to CHF has not been on her furosemide since August, stopped due to ARIADNA and dehydration continue IV Lasix, strict I&O, low-sodium diet, daily weight cardiology consulted echocardiogram monitor respiratory status Hypokalemia potassium repleted follow BMP History of paroxysmal AFib rate controlled, therapeutic INR continue warfarin and atenolol hypertension stable continue antihypertensives GORDON on CPAP at bedtime- continue DVT prophylaxis: Warfarin Attending Dr. Mcduffie Full code Given patient's need for oxygen, and acute CHF exacerbation eating Lasix patient will require minimum 2 nights inpatient hospital stay for further management Time Spent With Patient Time: Total time managing care of this patient today ____ minutes. Quality Stroke Does the patient have a stroke diagnosis?: No VTE Prior VTE?: No VTE Risk Level:: Medical - moderate - high VTE Device Contraindication: Treatment Not Indicated VTE Drug Contraindication: N/A - Med Ordered
--- NOTE | 2022-10-08 10:48 | PM.CNCAR ---
History of Present Illness History of Present Illness Date of Service: 10/08/22 Chief complaint: Acute CHF Narrative: This is a cardiology consultation regarding shortness of breath. Her primary cardiology notes were reviewed. Has a history of bioprosthetic mitral valve replacement, tricuspid annuloplasty, chronic atrial fibrillation, hypertension, dyslipidemia, COPD, GORDON on CPAP. It seems that her open heart surgery was performed 2020. Current admission is for symptoms of shortness of breath and exertion and some weakness. She has been experiencing worsening difficulty breathing over the last several days. No clear anginal-type symptoms. She has been admitted with a diagnosis of hypoxic respiratory failure and CHF exacerbation. Of note, it seems that after a recent hospital discharge diuretics have been stopped. Review of Systems Review of Systems: Yes all other systems are reviewed and are negative Constitutional: Constitutional: Reports as per HPI and Reports no additional constitutional complaints Eyes: Eyes: Reports as per HPI and Denies no additional eye complaints ENT: Denies system reviewed and no additional complaints, except as documented and Reports as per HPI Cardiovascular: Cardiovascular: Reports as per HPI, Reports no additional cardiovascular complaints, Denies acrocyanosis, Denies cool extremities, Denies chest pain, Reports leg edema, Denies lightheadedness, Denies palpitations and Reports dyspnea Respiratory: Respiratory: Reports as per HPI, Denies no additional respiratory complaints and Reports dyspnea Gastrointestinal: Gastrointestinal: Reports as per HPI and Denies no additional gastrointestinal complaints Genitourinary: Genitourinary: Reports as per HPI Musculoskeletal: Musculoskeletal: Reports no additional musculoskeletal complaints and Reports as per HPI Integumentary/Breasts: Skin/Breast: Reports system reviewed and no additional complaints, except as docu Neurologic: Reports system reviewed and no additional complaints, except as documented and Reports as per HPI Psychiatric: Psychiatric: Reports no additional psychiatric complaints and Reports as per HPI Endocrine: Endocrine: Reports no additional endocrine complaints, Reports as per HPI and Denies palpitations Hematologic/Lymphatic: Hematologic/Lymphatic: Reports no additional hematologic/lymphatic complaints and Reports as per HPI Allergic/Immunologic: Allergic/Immunologic: Reports no additional allergic/immunologic complaints and Reports as per HPI PMF Past Medical History Medical History A-fib CKD (chronic kidney disease) stage 3, GFR 30-59 ml/min COPD (chronic obstructive pulmonary disease) HTN (hypertension) Hyperlipidemia Hyperparathyroidism due to vitamin D deficiency Nephrolithiasis, uric acid Obesity GORDON (obstructive sleep apnea) Osteoporosis Pulmonary HTN Severe mitral regurgitation Thiamine deficiency Family History Family History Father No problems noted. Mother No problems noted. Maternal Aunt Breast cancer Surgical History Surgical History History of open reduction and internal fixation (ORIF) procedure Hx of hernia repair Social History Social History Household Members: Spouse Housing: House Do you presently have visiting nurse or other home services: No Alcohol intake: never Patient Tobacco Use Status: Former Tobacco user Tobacco use type: Cigarette Smoked in Last 30 Days: No e-Cigarette/Vaping Use: Never Used Second Hand Smoke Exposure: No Use of substances other than those prescribed or required for medical reasons: No Currently Displaying Signs/Symptoms of Drug Intoxication Withdrawal: No Any prior treatment program specific to substance use: No Have you been hit, kicked, punched, or otherwise hurt by someone within the past year? If so, by whom?: No Do you feel safe in your current relationship?: Yes Is there a partner from a previous relationship who is making you feel unsafe now?: No Are you made to feel afraid or neglected: No Advance Directives: No Advance Directives Information Provided: Yes Do you have thoughts of harming others: None Do you have a plan to hurt others: No Plan Recently lost weight without trying: Yes How much weight loss: 24-33 pounds Eating poorly because of decreased appetite: Yes Nutrition screen score: 6 Nutrition Risks: No Nutritional Risk Patient : No service: No Current occupational status: retired Cognitive needs: No Hearing needs: No Vision needs: No Meds Allergies Allergy/AdvReac Type Severity Reaction Status Date / Time acetaminophen [From Vicodin] Allergy Intermediate per patient Verified 10/07/22 18:49 hydrocodone [From Vicodin] Allergy Mild CHEST PAIN Verified 10/07/22 18:49 Active Medications: Current Medications Albuterol Sulfate (Albuterol Sulfate 90 Mcg 8 Gm Inhaler) 2 puff INHALE RQ4H PRN PRN Reason: sh Amlodipine Besylate (Amlodipine Besylate 2.5 Mg Tablet) 2.5 mg PO DAILY [facility]; Protocol Last Admin: 10/08/22 09:48 Dose: 2.5 mg Atenolol (Atenolol 50 Mg Tablet) 50 mg PO DAILY [facility]; Protocol Last Admin: 10/08/22 09:48 Dose: 50 mg Atorvastatin Calcium (Atorvastatin Calcium 80 Mg Tablet) 80 mg PO DAILY [facility] Last Admin: 10/08/22 09:48 Dose: 80 mg Docusate Sodium (Docusate Sodium 100 Mg Capsule) 100 mg PO DAILY PRN PRN Reason: Constipation Furosemide (Furosemide 40 Mg/4 Ml Vial) 40 mg IVPUSH BID@0800,1700 [facility]; Protocol Last Admin: 10/08/22 09:47 Dose: 40 mg Ceftriaxone Sodium 1 gm/ (Sodium Chloride) 50 mls @ 100 mls/hr IV Q24H [facility] Last Infusion: 10/08/22 07:08 Dose: Infused Omeprazole (Omeprazole 20 Mg Capsule.Dr) 20 mg PO BID@0630,1630 [facility] Last Admin: 10/08/22 06:29 Dose: 20 mg Ondansetron HCl (Ondansetron Hcl 4 Mg/2 Ml Vial) 4 mg IVPUSH Q8H PRN PRN Reason: Nausea and Vomiting Potassium Chloride (Potassium Chloride Er 20 Meq Tab.Er.Prt) 20 meq PO DAILY [facility] Last Admin: 10/08/22 09:49 Dose: 20 meq Sodium Chloride (0.9 % Sodium Chloride Flush 3 Ml Syringe) 3 ml IVFLUSH QSHIFT [facility] Last Admin: 10/08/22 09:48 Dose: 3 ml Warfarin Sodium (Warfarin Sodium 2.5 Mg Tablet) 2.5 mg PO DAILY@1200 [facility] Home Medications Medication Instructions Recorded Confirmed Last Taken Type albuterol sulfate 90 mcg/actuation 2 puff inhalation Q4-6H PRN 08/24/22 10/08/22 Unknown History aerosol inhaler atenolol 50 mg tablet 50 mg PO DAILY 08/24/22 10/08/22 Unknown History atorvastatin 80 mg tablet 80 mg PO DAILY 08/24/22 10/08/22 Unknown History omeprazole 20 mg capsule,delayed 20 mg PO BID 08/24/22 10/08/22 Unknown History release warfarin 2.5 mg tablet 2.5 mg PO DAILY@1200 08/24/22 10/08/22 Unknown History Physical Exam Vital Signs: Vital Signs: Last Vital Signs Temp 97.1 F 10/08/22 07:11 Pulse 83 10/08/22 07:11 Resp 20 10/08/22 07:11 BP 154/80 H 10/08/22 07:11 Pulse Ox 88 L 10/08/22 07:11 O2 Del Method CPAP 10/08/22 07:11 O2 Flow Rate 2 10/08/22 00:50 BMI result Body Mass Index 36.5 Const: General: comfortable and no acute distress Orientation/consciousness: patient oriented x3 HEENT: Other: Unremarkable Head: Yes normal to inspection Neck: Neck: Yes normal visual inspection Chest: Chest palpation & inspection: normal inspection of the chest Resp: Auscultation: clear to auscultation bilaterally Cardio: Palpation: normal PMI Heart sounds: S1 normal heart sound present, S2 normal heart sound present, no gallops, no murmurs and no rubs GI: Palpation (GI): Soft to palpation Back/Spine/Pelvis: Other: unremarkable Skin: General skin exam: no rashes or lesions noted Neuro: General: patient oriented x3 Extrem: Other: 1+ edema General: Yes normal to inspection Psych: Mental Status: mental status grossly normal Objective Labs and Meds 10/07/22 19:19 10/08/22 06:31 Lab results: Laboratory Results - last 24 hr 10/07/22 10/07/22 10/07/22 19:19 19:19 19:19 WBC 7.6 RBC 3.72 L Hgb 10.7 L Hct 34.3 L MCV 92.2 MCH 28.8 MCHC 31.2 RDW 14.7 Plt Count 184 D MPV 10.1 Immature Gran % (Auto) 0.5 H Neut % (Auto) 77.9 H Lymph % (Auto) 12.2 L [place] % (Auto) 7.9 Eos % (Auto) 1.1 Baso % (Auto) 0.4 Lymph # (Auto) 0.9 L [place] # (Auto) 0.6 Eos # (Auto) 0.1 Baso # (Auto) 0.0 Abs Immat Gran (auto) 0.04 H Absolute Neuts (auto) 5.9 Absolute Nucleated RBC 0.000 Nucleated RBC % (auto) 0.0 PT 30.8 H INR 2.6 H Sodium 146 H Potassium 3.2 L Chloride 107 Carbon Dioxide 28 Anion Gap 14 BUN 7 L Creatinine 0.71 Estim Creat Clear Calc 69.4 Estimated GFR > 60 Random Glucose 112 Calcium 9.2 D Magnesium 1.8 Total Bilirubin 1.6 H Direct Bilirubin 0.4 AST 24 ALT 14 Alkaline Phosphatase 101 Troponin I High Sens B-Natriuretic Peptide Total Protein 6.0 L Albumin 3.6 Urine Color Urine Appearance Urine pH Ur Specific [place] Urine Protein Urine Glucose (UA) Urine Ketones Urine Blood Urine Nitrite Ur Leukocyte Esterase Urine RBC Urine WBC Ur Squamous Epith Cells Urine Bacteria Hyaline Casts 10/07/22 10/07/22 10/07/22 19:19 19:19 22:33 WBC RBC Hgb Hct MCV MCH MCHC RDW Plt Count MPV Immature Gran % (Auto) Neut % (Auto) Lymph % (Auto) [place] % (Auto) Eos % (Auto) Baso % (Auto) Lymph # (Auto) [place] # (Auto) Eos # (Auto) Baso # (Auto) Abs Immat Gran (auto) Absolute Neuts (auto) Absolute Nucleated RBC Nucleated RBC % (auto) PT INR Sodium Potassium Chloride Carbon Dioxide Anion Gap BUN Creatinine Estim Creat Clear Calc Estimated GFR Random Glucose Calcium Magnesium Total Bilirubin Direct Bilirubin AST ALT Alkaline Phosphatase Troponin I High Sens 11.9 B-Natriuretic Peptide 283 H Total Protein Albumin Urine Color Yellow Urine Appearance Clear Urine pH 7.0 Ur Specific [place] <= 1.005 Urine Protein Negative Urine Glucose (UA) Negative Urine Ketones Negative Urine Blood Trace H Urine Nitrite Negative Ur Leukocyte Esterase Moderate (2+) H Urine RBC 3-5 H Urine WBC 0-5 Ur Squamous Epith Cells 0-2 Urine Bacteria None Seen Hyaline Casts 0-2 10/08/22 10/08/22 06:31 06:31 WBC RBC Hgb Hct MCV MCH MCHC RDW Plt Count MPV Immature Gran % (Auto) Neut % (Auto) Lymph % (Auto) [place] % (Auto) Eos % (Auto) Baso % (Auto) Lymph # (Auto) [place] # (Auto) Eos # (Auto) Baso # (Auto) Abs Immat Gran (auto) Absolute Neuts (auto) Absolute Nucleated RBC Nucleated RBC % (auto) PT 29.2 H INR 2.5 H Sodium 147 H Potassium 3.7 Chloride 106 Carbon Dioxide 32 H Anion Gap 13 BUN 6 L Creatinine 0.73 Estim Creat Clear Calc 66.7 Estimated GFR > 60 Random Glucose 101 Calcium 9.1 Magnesium Total Bilirubin 1.5 H Direct Bilirubin AST 19 ALT 13 Alkaline Phosphatase 99 Troponin I High Sens B-Natriuretic Peptide Total Protein 5.6 L Albumin 3.4 L Urine Color Urine Appearance Urine pH Ur Specific [place] Urine Protein Urine Glucose (UA) Urine Ketones Urine Blood Urine Nitrite Ur Leukocyte Esterase Urine RBC Urine WBC Ur Squamous Epith Cells Urine Bacteria Hyaline Casts ECG Interpretation: EKG has baseline artifact but difficult to assess. Could be flutter. Rate 89/Min. Imaging Radiologist's impression: Impressions Chest X-Ray 10/07/22 19:49 FINDINGS/IMPRESSION: The study is significantly limited by portable technique, low lung volumes, patient body habitus, rotation, and overlying leads. There has been no gross significant radiographic change compared with 4 days prior. Findings may demonstrate prominence of the pulmonary veins in their nondependent portions, suggesting pulmonary venous hypertension. There may be mild diffuse interstitial prominence. Small bibasilar hazy densities suggest small effusions, atelectasis, and/infiltrates, left worse than right. Findings raise suspicion for mild pulmonary edema. The cardiac silhouette is suboptimally evaluated, probably enlarged. The aorta is atherosclerotic. The tips of left subclavian pulse generator device leads project over the right atrium and right ventricle. The patient may be status post cardiac valve replacement surgery. Status post median sternotomy. Right rib fracture deformities. Assessment and Plan (1) Acute on chronic heart failure with preserved ejection fraction (HFpEF): Status: Acute (2) Chronic atrial fibrillation: Status: Acute Plan High sensitivity troponin within range. Cardiac BNP 283. Last month, it was 332. Even prior to that, 86. Overall, slight increase in cardiac BNP compared to before. Chest x-ray with comments on prominent pulmonary veins suggesting pulmonary venous hypertension. Mild pulmonary edema. Overall, this could be acute on chronic diastolic heart failure due to holding off on diuretics. On review of discharge summary, that in turn was done due to ARIADNA, hyperkalemia and hypernatremia. In fact, the creatinine was as much as 4.5 at that time. Now it is 0.73. Hence essentially normal. We could resume IV diuretics and see how she does. Atrial fibrillation seems rate controlled. Continue with beta-blockers and anticoagulation without changes. Discussed with Claritza Workman. Time Spent With Patient Time: Total time managing care of this patient today ____ minutes. Procedures Date of Service Date of Service: 10/08/22
--- NOTE | 2022-10-08 11:11 | PHA.MEDREC ---
Pharmacy Consult ? Medication Reconciliation Pharmacy has completed the medication reconciliation. Patient is on and off of furosemide and is very very uncertain about whether she is supposed to be on it. Confirmed coumadin dosing with clinic since she's had variable inr recently.
--- NOTE | 2022-10-08 11:14 | PC.NURSE ---
Assumed care of patient at this time.
--- NOTE | 2022-10-08 13:13 | MHC.CLN ---
RE: CONSULT PT PREVIOUS WT HX: 93.5KG (10/08/22) 100.7KG (01/2022) PT WITH 7% NONSIGNIFICANT WT LOSS X 11 MONTHS REMAINS OBESE FOR HT DIET RX: 2GM NA -APPROPRIATE MONITOR PO INTAKE CLOSELY RD TO FOLLOW WEEKLY
--- NOTE | 2022-10-08 15:03 | PC.NURSE ---
Assumed care at 07:00. Patient alert and oriented x4. Endorses increased WOB, is noted to be wearing her CPAP while awake in the recliner. Endorses this is due to increased WOB. No accessory muscle use. Vital signs unremarkable with mild HTN. TRAY DRIER notified of increased WOB and CPAP use.
[2022-10-08] MEDS: Warfarin Sodium 2.5 MG TABLET PO (21:51)
[2022-10-09 04:00] VITALS: BP 153/67; PULSE 95; RESP 16; TEMP 36.6; O2SAT 91
[2022-10-09 05:22] LABS: Anion Gap 13 (12-20); Blood Urea Nitrogen 7 mg/dL (9-16); Calcium 8.9 mg/dL (8.4-10.2); Carbon Dioxide 34 mmol/L (22-29); Chloride 105 mmol/L (96-108); Creatinine Clr Calc Pharmacy 62.5; Estimated Glomerular Filt Rate > 60; Glucose Random 101 mg/dL (60-115); Potassium 3.6 mmol/L (3.3-5.1); Sodium 148 mmol/L (135-145)
[2022-10-09 06:00] VITALS: BMI 36.5
[2022-10-09] MEDS: Omeprazole 20 MG CAPSULE.DR PO (06:19)
[2022-10-09] MEDS: cefTRIAXone sodium 1 GM in 0.9 % Sodium Chloride 50 ML IV (06:23)
[2022-10-09 07:35] VITALS: BP 123/68; PULSE 87; RESP 16; TEMP 36.4
[2022-10-09] MEDS: 0.9 % Sodium Chloride Flush 3 ML SYRINGE IVFLUSH (08:40)
[2022-10-09] MEDS: Atorvastatin Calcium 80 MG TABLET PO (08:41)
[2022-10-09] MEDS: amLODIPine Besylate 2.5 MG TABLET PO (08:42)
[2022-10-09] MEDS: Potassium Chloride ER 20 MEQ TAB.ER.PRT PO (08:42)
[2022-10-09] MEDS: Furosemide 40 MG/4 ML VIAL IVPUSH (08:42)
[2022-10-09] MEDS: atenoloL 50 MG TABLET PO (08:42)
[2022-10-09 08:48] LABS: INTERNATIONAL NORM RATIO 2.1 (0.9-1.1); Prothrombin Time 25.2 SEC (10.0-13.1)
--- NOTE | 2022-10-09 10:21 | P.PNCA_ITS ---
Subjective Subjective Date of Service: 10/09/22 Interval history: She states that she is feeling okay. Shortness of breath is slightly better. Review of Systems Review of Systems Yes all other systems are reviewed and are negative Constitutional: Reports as per HPI and Reports no additional constitutional complaints Eyes: Reports as per HPI and Denies no additional eye complaints Denies system reviewed and no additional complaints, except as documented and Reports as per HPI Cardiovascular: Reports as per HPI, Reports no additional cardiovascular complaints, Denies acrocyanosis, Denies cool extremities, Denies chest pain, Reports leg edema, Denies lightheadedness, Denies palpitations and Reports dyspnea Respiratory: Reports as per HPI, Denies no additional respiratory complaints and Reports dyspnea Gastrointestinal: Reports as per HPI and Denies no additional gastrointestinal complaints Musculoskeletal: Reports no additional musculoskeletal complaints and Reports as per HPI Skin/Breast: Reports system reviewed and no additional complaints, except as docu Reports system reviewed and no additional complaints, except as documented and Reports as per HPI Psychiatric: Reports no additional psychiatric complaints and Reports as per HPI Endocrine: Reports no additional endocrine complaints, Reports as per HPI and Denies palpitations Hematologic/Lymphatic: Reports no additional hematologic/lymphatic complaints and Reports as per HPI Allergic/Immunologic: Reports no additional allergic/immunologic complaints and Reports as per HPI Physical Exam Vital Signs: Last Vital Signs Temp 97.5 F 10/09/22 07:35 Pulse 87 10/09/22 07:35 Resp 16 10/09/22 07:35 BP 123/68 10/09/22 07:35 Pulse Ox 91 L 10/09/22 04:00 O2 Del Method CPAP 10/09/22 04:00 O2 Flow Rate 2 10/08/22 00:50 BMI result Body Mass Index 36.5 Const General: comfortable and no acute distress Orientation/consciousness: patient oriented x3 HEENT Other: Unremarkable Head: Yes normal to inspection Neck Neck: Yes normal visual inspection Chest Chest palpation & inspection: normal inspection of the chest Resp Other: Few basal crackles. Cardio Palpation: normal PMI Heart sounds: S1 normal heart sound present, S2 normal heart sound present, no gallops, no murmurs and no rubs GI Palpation (GI): Soft to palpation Back/Spine/Pelvis Other: unremarkable Skin General skin exam: no rashes or lesions noted Neuro General: patient oriented x3 Extrem Other: 1+ edema General: Yes normal to inspection Psych Mental Status: mental status grossly normal Objective Labs and Meds 10/07/22 19:19 10/09/22 04:36 Lab results: Laboratory Results - last 24 hr 10/09/22 10/09/22 04:36 08:07 PT 25.2 H INR 2.1 H Sodium 148 H Potassium 3.6 Chloride 105 Carbon Dioxide 34 H Anion Gap 13 BUN 7 L Creatinine 0.78 Estim Creat Clear Calc 62.5 Estimated GFR > 60 Random Glucose 101 Calcium 8.9 Progress Note: A&P Assessment and plan (1) Acute on chronic HFrEF (heart failure with reduced ejection fraction): Status: Acute (2) Chronic atrial fibrillation: Status: Acute Plan Echocardiogram was of difficult quality but LVEF suspected to be about 40%. Markedly impaired right ventricular systolic function. Severe biatrial enlargement. Bioprosthetic mitral valve with a mean gradient of 8 mm Hg which was similar to before, elevated. Dilated IVC with reduced respiratory variation. Overall, suspected congestive heart failure leading to shortness of breath. She also has some superimposed COPD. With diuretics, she has improved. Leg swelling does feel better. In the past, it seems that she had renal failure leading to diuretics being stopped. Hence, that can be resumed with close monitoring of renal function. Atrial fibrillation itself seems controlled. We can ambulate her and see how she does. 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 Discussed with Claritza Workman. Time Spent With Patient Time: Total time managing care of this patient today 50 minutes. This includes time spent in review of chart, laboratory data, imaging studies, review of telemetry, counseling patient, discussion with hospitalist, RN, doc umentation, coordination of care. Progress Note: Quality Stroke Does the patient have a stroke diagnosis?: No Procedures Date of Service Date of Service: 10/09/22
[2022-10-09 11:02] VITALS: BP 114/64; PULSE 79; RESP 20; TEMP 36.4; O2SAT 92
[2022-10-09 14:51] VITALS: BP 114/64; PULSE 79; O2SAT 92
--- NOTE | 2022-10-09 15:16 | P.DS_ITS ---
DS: Providers Provider Date of Service: 10/09/22 Date of admission: 10/07/22 23:47 Primary care physician: Kiesha Macedo MD Consults: 10/07/22 23:46 Consult to Cardiology Routine Consulting Provider: [facility] [place] Cardiovascular Services Reason for consultation: chf Has provider been notified: No DS: Diagnosis Discharge Diagnosis (1) Acute on chronic HFrEF (heart failure with reduced ejection fraction): Status: Acute (2) Chronic atrial fibrillation: Status: Acute DS: Summary Hospital Course Hospital Course: HP as per admitting provider 82-year-old female past medical history of CKD stage 3, paroxysmal AFib, on warfarin, HDL, HTN, mitral valve replacement, COPD who presents to the hospital with complaints of shortness of breath, and progressive weakness.? Patient reports her symptoms have been worsening over the past 3 days, associated with lower extremity edema, orthopnea, PND, has been using CPAP at bedtime, but has also needed her oxygen during the day because she feels short of breath.? She is also stating that ever since being discharged from the hospital on August, she has stopped taking her Lasix.? Denies any chest pain, no abdominal pain nausea or vomiting, no diarrhea constipation, no urinary symptoms.? No numbness or tingling.? Denies any cough, or increased sputum production On arrival to the ED patient found to be 89% on room air Labs are significant for WBC count of 7.6, hemoglobin of 10.7, hematocrit 34.3, INR of 2.6, potassium 3.2, creatinine of 0.0 0.71 which is around her baseline, BNP of 283, UA positive for leukocyte Estrace, WBC Chest x-ray low yield but shows possible effusions, and pulmonary edema . Acute hypoxic respiratory failure secondary to CHF. has not been on her furosemide since August, stopped due to ARIADNA and dehydration. treated with IV Lasix. neg 1 liter. Seen and evaluated by Cardiology, no further workup necessary at this time. Echocardiogram with EF of 40% with severe biatrial enlargement and mild pulmonary hypertension. Hypokalemia. potassium repleted History of paroxysmal AFib. rate controlled, therapeutic INR. continue warfarin and atenolol hypertension. continue antihypertensives GORDON. on CPAP at bedtime Time Spent with Patient Time attestation: Total time managing care of this patient today ____ minutes. Discharge coordination time: Greater than 30 minutes Quality: Safe Use of Opioids Does Pt have an Active Cancer Diagnosis on the Problem List?: No Quality: Stroke Does the patient have a stroke diagnosis?: No Physical Exam Vital Signs: Vital Signs: Last Vital Signs Temp 97.5 F 10/09/22 11:02 Pulse 79 10/09/22 14:51 Resp 20 10/09/22 11:02 BP 114/64 10/09/22 14:51 Pulse Ox 92 10/09/22 14:51 O2 Del Method Room Air 10/09/22 11:02 O2 Flow Rate 2 10/08/22 00:50 BMI result Body Mass Index 36.5 Appearing in no acute distress head is normocephalic atraumatic eyes pupils are PERRLA sclera is anicteric mouth throat mucous membranes are intact and moist neck is supple no lymphadenopathy, no JVD noted lung sounds are clear to auscultation heart regular rate rhythm, clear S1, S2 positive bowel sounds, abdomen is soft, nontender neuro patient is alert x3, no focal deficits DS: Data Data Completed and Pending Labs on day of discharge: Laboratory Results - last 24 hr 10/09/22 10/09/22 04:36 08:07 PT 25.2 H INR 2.1 H Sodium 148 H Potassium 3.6 Chloride 105 Carbon Dioxide 34 H Anion Gap 13 BUN 7 L Creatinine 0.78 Estim Creat Clear Calc 62.5 Estimated GFR > 60 Random Glucose 101 Calcium 8.9 Preliminary micro results at discharge 10/08/22 06:31 Blood Culture - Preliminary Blood - Venous No growth after 24 hours. 10/08/22 06:31 Blood Culture - Preliminary Blood - Venous No growth after 24 hours. Discharge Plan Discharge Anticipated Discharge Date/Time: 10/09/22 15:09 Patient Disposition: Home, Self-Care Discharge Diagnosis: Acute on chronic heart failure with reduced ejection fraction Acute hypoxic respiratory failure Referrals: Kiesha Macedo MD [Primary Care Provider] - 1 Week Discharge Medications: Continued amlodipine 2.5 mg tablet 2.5 mg PO DAILY Qty: 90 3RF potassium chloride 20 mEq tablet,ER particles/crystals 20 meq PO DAILY Qty: 14 0RF furosemide [Lasix] 40 mg tablet 40 mg PO DAILY 5 Days Qty: 5 0RF atorvastatin 80 mg tablet 80 mg PO DAILY warfarin 2.5 mg tablet 2.5 mg PO [id number]@1800 Protocol: Dose Management Condition: Saturday (Week One) Dose/Route: 1.25 mg Instruction: 0.5 x 2.5 mg tablets Condition: Saturday Dose/Route: 2.5 mg Instruction: 1 x 2.5 mg tablet Condition: Saturday Dose/Route: 2.5 mg Instruction: 1 x 2.5 mg tablet Condition: Saturday Dose/Route: 2.5 mg Instruction: 1 x 2.5 mg tablet Condition: Dose/Route: 0 mg Instruction: 0 tablets Condition: Saturday Dose/Route: 2.5 mg Instruction: 1 x 2.5 mg tablet Condition: Saturday Dose/Route: 2.5 mg Instruction: 1 x 2.5 mg tablet Condition: Saturday (Week Two) Dose/Route: 1.25 mg Instruction: 0.5 x 2.5 mg tablets Condition: Saturday Dose/Route: 2.5 mg Instruction: 1 x 2.5 mg tablet Condition: Saturday Dose/Route: 2.5 mg Instruction: 1 x 2.5 mg tablet Condition: Saturday Dose/Route: 1.25 mg Instruction: 0.5 x 2.5 mg tablets Condition: Dose/Route: 2.5 mg Instruction: 1 x 2.5 mg tablet Condition: Saturday Dose/Route: 2.5 mg Instruction: 1 x 2.5 mg tablet Condition: Saturday Dose/Route: 2.5 mg Instruction: 1 x 2.5 mg tablet Protocol Text: Adjustment Start Date: Saturday10/03/22 INR Value: 3.9 INR Date: 10/03/22 Recheck Date: 10/10/22 Additional Instructions: hold dose tomm of warfarin reduce weekly dosing to 1.25mg every saturday and saturday eat greens to lower inr, no reds for 2-3 days omeprazole 20 mg capsule,delayed release(DR/EC) 20 mg PO BID albuterol sulfate 90 mcg/actuation HFA aerosol inhaler 2 puff inhalation Q4-6H PRN (Reason: sh) atenolol 50 mg tablet 50 mg PO DAILY warfarin 2.5 mg Tablet 1.25 mg PO SUWE@1800 Discharge Orders: Discharge Order (Routine); Ordered 10/09/22 Ordered By: Claritza Workman Diet: Advance to usual diet Activity on Discharge: As tolerated Stand Alone Forms: Patient Portal Discharge page Care Plan Goals: Complete resolution of symptoms Health Concerns: Acute on chronic heart failure with reduced ejection fraction Acute hypoxic respiratory failure Plan of Treatment: Follow-up with primary care provider in 1-2 weeks to monitor Lasix therapy Take all medications as prescribed Check your weight daily and document, call primary care provider if more than 3 lb weight gain in 24 hours Assessment: See discharge summary
--- NOTE | 2022-10-09 15:33 | MHC.CM.PN ---
DP: PT HAS BEEN MEDICALLY CLEARED FOR DC HOME, NO SERVICES. RN AWARE. FAMILY WILL TRANSPORT.
--- NOTE | 2022-10-09 16:07 | P.CDIM_ITS ---
PROVIDER RESPONSE TEXT: To clarify, the appropriate diagnosis supported by the clinical indicators: Hypernatremia or other etiology of lab findings QUERY TEXT: PHYSICIAN'S DOCUMENTATION REQUEST Date of Query: 10/09/2022 11:46 AM EDT Patient Name: Ramona Pinon Admit Date: 10/08/2022 Dear Claritza Workman, A review of the medical record indicates additional documentation may be needed. Please review below and update the documentation accordingly. Clinical Indicators: LAB FINDINGS: sodium 146 147 148H Based on the above, is there a diagnosis that correlates with these lab findings: Hypernatremia or other etiology of lab findings Labs indicate a diagnosis of (please specify) Unable to determine Other (explain) Clinically unable to determine (explain) Thank you, Emmy Enriquez, CCS, CDIS Use of terms such as suspected, likely, concern for, or probable (associated with a specific diagnosi s that is being evaluated, monitored, or treated as if it exists) are acceptable and can be coded in the inpatient se tting, when documented at the time of discharge. Please use your independent medical judgment in providing your response. THIS QUERY IS PART OF THE PERMANENT MEDICAL RECORD
== END 2022-10-09 17:02 | disposition home or self-care (01) | DRG 682 ==
LOC: HO.ED 23:17 → HO.EDOVER 23:52 → HO.S3 10-08 00:08 → HO.IMC 10-08 00:14
PROVIDERS: Physician Assistant; Admitting Provider Internal Medicine; Emergency Provider Student in an Organized Health Care Education/Training Program; PCP Internal Medicine; Visit Provider Nurse Practitioner Acute Care
DX: I12.9 Hypertensive chronic kidney disease with stage 1 through stage 4 chronic kidney disease, or unspecified chronic kidney disease (principal); I50.23 Acute on chronic systolic (congestive) heart failure; J96.01 Acute respiratory failure with hypoxia; E87.0 Hyperosmolality and hypernatremia; E78.5 Hyperlipidemia, unspecified; N18.30 Chronic kidney disease, stage 3 unspecified; I48.0 Paroxysmal atrial fibrillation; J44.9 Chronic obstructive pulmonary disease, unspecified; E87.6 Hypokalemia; I27.20 Pulmonary hypertension, unspecified; G47.33 Obstructive sleep apnea (adult) (pediatric); Z95.2 Presence of prosthetic heart valve; Z87.891 Personal history of nicotine dependence; Z88.5 Allergy status to narcotic agent; Z88.6 Allergy status to analgesic agent; Z79.01 Long term (current) use of anticoagulants; Z79.899 Other long term (current) drug therapy
CPT/HCPCS: 36415; 71045; 80048; 80053; 80076; 81001; 83735; 83880; 84484; 85025; 85610; 87040; 87086; 93005; 93306; 94660; 97162; 99285; J0696; J1940; Q9957

== ENCOUNTER → 2022-10-11 08:49 | Outpatient (BNVA) | payer MEDICARE, BC, SELFPAY | PROVIDERS: PCP Internal Medicine; Visit Provider Urology | DX: I48.0 Paroxysmal atrial fibrillation (principal); Z51.81 Encounter for therapeutic drug level monitoring; Z79.01 Long term (current) use of anticoagulants | CPT/HCPCS: 85610; 99211; 99212 ==

== ENCOUNTER → 2022-10-17 09:37 | Outpatient (BNVA) | payer MEDICARE, BC, SELFPAY | PROVIDERS: PCP Internal Medicine; Visit Provider Internal Medicine | DX: I48.0 Paroxysmal atrial fibrillation (principal); Z79.01 Long term (current) use of anticoagulants; Z51.81 Encounter for therapeutic drug level monitoring | CPT/HCPCS: 85610; 99211 ==

== ENCOUNTER 2022-10-23 11:44 | Outpatient (REF) | payer MEDICARE, BC, SELFPAY ==
[2022-10-23 14:06] LABS: MANUAL DIFF FLAG NO
[2022-10-23 14:14] LABS: Basophils Percent Auto 0.7 % (0-2); Eosinophils Absolute Auto 0.1 X10*3/uL (0.0-0.4); Hematocrit 37.8 % (37.0-47.0); Hemoglobin 11.3 g/dl (12.0-16.0); Imm Gran Abs Auto 0.07 X10*3/uL (0.00-0.03); Imm Gran Pct Auto 1.3 % (0.0-0.4); Lymphocytes Absolute Auto 1.4 X10*3/uL (1.2-4.9); Lymphocytes Percent Auto 26.2 % (20-40); Mean Corpuscular HGB Conc 29.9 g/dl (31.0-35.0); Mean Corpuscular Hemoglobin 27.5 pg (27.0-33.0); Mean Platelet Volume 11.4 fL (9.4-12.3); Monocytes Absolute Auto 0.4 X10*3/uL (0.1-1.2); Monocytes Percent Auto 7.4 % (2-11); Neutrophils Absolute Auto 3.4 x10*3/uL (2.0-8.3); Neutrophils Percent Auto 62.4 % (45-73); Platelet Count 171 X10*3/uL (160-400); Red Blood Count 4.11 X10*6/uL (4.20-5.50); Red Cell Distribution Width 14.7 % (11.0-16.0); White Blood Count 5.4 X10*3/uL (4.8-10.8)
[2022-10-23 14:18] LABS: Alanine Aminotransferase 13 U/L (0-31); Albumin Level 3.9 g/dL (3.5-5.0); Alkaline Phosphatase 93 U/L (39-117); Anion Gap 13 (12-20); Aspartate Amino Transferase 24 U/L (5-31); Bilirubin Total 1.2 mg/dL (0.0-1.0); Blood Urea Nitrogen 13 mg/dL (9-16); Calcium 9.7 mg/dL (8.4-10.2); Carbon Dioxide 31 mmol/L (22-29); Chloride 104 mmol/L (96-108); Estimated Glomerular Filt Rate > 60; Glucose Fasting 98 mg/dL (60-99); Potassium 3.4 mmol/L (3.3-5.1); Sodium 145 mmol/L (135-145); Total Protein 6.6 g/dL (6.5-8.0)
[2022-10-23 14:25] LABS: B Type Natriuretic Peptide 234 pg/mL (<100)
== END 2022-10-23 11:45 | disposition home or self-care (01) ==
LOC: HO.HMGCLDS 11:44
PROVIDERS: PCP Internal Medicine; Visit Provider Internal Medicine
DX: I13.0 Hypertensive heart and chronic kidney disease with heart failure and stage 1 through stage 4 chronic kidney disease, or unspecified chronic kidney disease (principal); N18.30 Chronic kidney disease, stage 3 unspecified; I50.9 Heart failure, unspecified; I48.91 Unspecified atrial fibrillation
CPT/HCPCS: 36415; 80053; 83880; 85025

== ENCOUNTER → 2022-10-24 09:19 | Outpatient (BNVA) | payer MEDICARE, BC, SELFPAY | PROVIDERS: PCP Internal Medicine; Visit Provider Internal Medicine | DX: I48.0 Paroxysmal atrial fibrillation (principal); Z79.01 Long term (current) use of anticoagulants; Z51.81 Encounter for therapeutic drug level monitoring | CPT/HCPCS: 85610; 99211 ==

== ENCOUNTER → 2022-10-31 08:54 | Outpatient (BNVA) | payer MEDICARE, BC, SELFPAY | PROVIDERS: PCP Internal Medicine; Visit Provider Internal Medicine | DX: I48.0 Paroxysmal atrial fibrillation (principal); Z79.01 Long term (current) use of anticoagulants; Z51.81 Encounter for therapeutic drug level monitoring | CPT/HCPCS: 85610; 99211 ==

== ENCOUNTER 2022-11-06 08:38 | Outpatient (REF) | payer MEDICARE, BC, SELFPAY ==
[2022-11-06 11:59] LABS: Anion Gap 15 (12-20); Blood Urea Nitrogen 12 mg/dL (9-16); Calcium 9.7 mg/dL (8.4-10.2); Carbon Dioxide 28 mmol/L (22-29); Chloride 107 mmol/L (96-108); Estimated Glomerular Filt Rate > 60; Glucose Random 110 mg/dL (60-115); Potassium 3.7 mmol/L (3.3-5.1); Sodium 146 mmol/L (135-145)
== END 2022-11-06 08:39 | disposition home or self-care (01) ==
LOC: HO.HMGCLDS 08:38
PROVIDERS: PCP Internal Medicine; Visit Provider Internal Medicine
DX: I50.9 Heart failure, unspecified (principal)
CPT/HCPCS: 36415; 80048

== ENCOUNTER → 2022-11-13 08:06 | Outpatient (BNVA) | payer MEDICARE, BC, SELFPAY | PROVIDERS: PCP Internal Medicine; Visit Provider Internal Medicine | DX: I48.0 Paroxysmal atrial fibrillation (principal); Z79.01 Long term (current) use of anticoagulants; Z51.81 Encounter for therapeutic drug level monitoring | CPT/HCPCS: 85610; 99211 ==

== ENCOUNTER → 2022-12-03 08:20 | Outpatient (BNVA) | payer MEDICARE, BC, SELFPAY | PROVIDERS: PCP Internal Medicine; Visit Provider Internal Medicine | DX: I48.0 Paroxysmal atrial fibrillation (principal); Z79.01 Long term (current) use of anticoagulants; Z51.81 Encounter for therapeutic drug level monitoring | CPT/HCPCS: 85610; 99211 ==

== ENCOUNTER 2022-12-31 08:01 | Outpatient (AMB) | payer MEDICARE, BC, SELFPAY ==
--- NOTE | 2022-12-31 08:06 | MHC.OFFVISCO ---
Intake Intake Visit Reasons: Anticoagulation Allergies acetaminophen [From Vicodin] Allergy (Intermediate, Verified 12/31/22 08:01) per patient hydrocodone [From Vicodin] Allergy (Mild, Verified 12/31/22 08:01) CHEST PAIN Medication List - Last Reconciled 12/31/22 by Ninoska Nolen RN albuterol sulfate 90 mcg/actuation 2 puffs inhalation Q4-6H PRN amlodipine 2.5 mg PO DAILY atenolol 50 mg PO DAILY atorvastatin 80 mg PO DAILY furosemide (Lasix) 40 mg PO DAILY omeprazole 20 mg PO BID potassium chloride ER 30 mEq (1.5 x 20 mEq) PO DAILY warfarin 2.5 mg See Protocol PO 6XW Nursing Note INR: 3.0- in therapeutic range Medications and supplements reviewed- no changes No changes in health, diet, medications, or supplements, Denies any signs and symptoms of bleeding or bruising or clotting. Bleeding, bruising, clotting discussed Nutritional guidance given - eat a greent today, no reds for 2 days Dose: 2.5mg x 7 F/U INR: pt req 4 weeks Patient verbalizes understanding of instructions given Anti-Coag Initial Assessment Social Hx Patient Tobacco Use Status: Former Tobacco user Tobacco use type: Cigarette alcohol intake: never Coding Level of Care Code Est Patient Level 1 Diagnoses Current use of anticoagulant therapy Z79.01 Results AMB INR Fingerstick AMB INR Fingerstick 3.0 Last Edit by Ninoska Nolen RN on 12/31/22 08:07 Assessment & Plan Assessment & Plan (1) Current use of anticoagulant therapy: Code(s): Z79.01 - 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
[2022-12-31 08:07] LABS: Prothrombin Time Whole Bld POC 36.1 sec (11.1-13.5)
== END 2022-12-31 08:12 | disposition home or self-care (01) ==
LOC: HO.ACS 08:01
PROVIDERS: PCP Internal Medicine; Visit Provider Internal Medicine
DX: Z79.01 Long term (current) use of anticoagulants (principal)

== ENCOUNTER → 2022-12-31 08:01 | Outpatient (BNVA) | payer MEDICARE, BC, SELFPAY | PROVIDERS: PCP Internal Medicine; Visit Provider Internal Medicine | DX: I48.0 Paroxysmal atrial fibrillation (principal); Z79.01 Long term (current) use of anticoagulants; Z51.81 Encounter for therapeutic drug level monitoring | CPT/HCPCS: 85610; 99211 ==

== ENCOUNTER 2023-01-04 07:49 | Outpatient (AMB) | payer MEDICARE, BC, SELFPAY ==
[2023-01-04 08:32] VITALS: BP 110/70; PULSE 70; O2SAT 96; BMI 34.0
--- NOTE | 2023-01-04 08:32 | MHC.PC.OV ---
Vital Signs 01/04/23 08:32 Height 5 ft 3 in Weight 192 lb BMI 34.0 BP 110/70 Blood Pressure Location Lt brachial Position Sitting Pulse 70 Pulse Source Pulse Oximeter Pulse Oximetry (%) 96 Oxygen Delivery Method Room Air Intake Visit Reasons: 2 month follow up CHF Allergies acetaminophen [From Vicodin] Allergy (Intermediate, Verified 01/04/23 08:36) per patient hydrocodone [From Vicodin] Allergy (Mild, Verified 01/04/23 08:36) CHEST PAIN Tobacco use date assessed: 01/04/23 Fall risk assessment: No Falls in past year Last assessed Fall Risk: 01/04/23 Dental Screening Dental Screen Date: 01/04/23 Did you have a dental visit in the last 12 months?: Yes Did you have a dental problem in the last 6 months where you did not have access to dental care?: No Was dental information given to patient?: Patient has dentist HPI 2 month follow up CHF HPI Details Pt presents for CHF, HTN, chronic kidney disease stage 3, sleep apnea with mild pulmonary hypertension on CPAP. Patient has an appointment with Cardiology within a month for an echo and follow-up at [facility]. 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 Mother No problems noted. Maternal Aunt Breast cancer Social History Household Members: Spouse Housing: House Do you presently have visiting nurse or other home services: No Alcohol intake: never Patient Tobacco Use Status: Former Tobacco user Tobacco use type: Cigarette e-Cigarette/Vaping Use: Never Used Second Hand Smoke Exposure: No service: No Current occupational status: retired Cognitive needs: No Hearing needs: No Vision needs: No Questionnaire Thrive Questionnaire Date Thrive assessed: 07/16/22 ADRIAN-7 AMB Questionnaire ADRIAN-7 Date ADRIAN - 7 assessed: 07/16/22 Source: Developed by Drs. Tae Valentine, Becca Olivia, Silviano Stallings and colleagues, with an educational lauryn from [employer]. Review of Systems Const All systems reviewed & are unremarkable except as noted in HPI and below Reports no additional complaints Eyes Reports no additional complaints ENT Reports no additional complaints Card Reports no additional complaints Resp Reports no additional complaints GI Reports no additional complaints Reports no additional complaints Physical exam (Primary Care) Vital Signs: Last Vital Signs Pulse 70 01/04/23 08:32 BP 110/70 01/04/23 08:32 Pulse Ox 96 01/04/23 08:32 Oxygen Delivery Method Room Air 01/04/23 08:32 BMI result Body Mass Index 34.0 Tobacco/Smoking Status: Tobacco use Status Tobacco use date assessed 01/04/23 01/04/23 08:45 Patient Tobacco Use Status Former Tobacco user 01/04/23 08:45 Tobacco use type Cigarette 01/04/23 08:45 e-Cigarette/Vaping Use Never Used 01/04/23 08:45 Thrive Assessment: Date of Thrive Assessment Date Thrive assessed 07/16/22 01/04/23 08:45 Const General: no acute distress HENMT Head: Yes normal to inspection Face and sinus: Yes normal facial exam Throat: Yes posterior oropharynx normal Resp Effort & Inspection: normal respiratory effort Auscultation: crackles (bases bilateral) Cardio Rhythm: regular rhythm Heart sounds: S1 normal heart sound present and S2 normal heart sound present GI Inspection: Yes normal to inspection Extrem General: Yes no clubbing, cyanosis or edema Assessment and Plan Assessment & Plan (1) CHF (congestive heart failure): Comment: Echo 10/23 [facility] [place],global LV hypokinesia, ejection fraction 40%, severe decreased function of right ventricle, severe biatrial enlargement mild pulmonary hypertension Code(s): I50.9 - Heart failure, unspecified Plan: Patient is managed by [facility]iology and will have echocardiogram next week. Patient is on atenolol and amlodipine. Check BNP and comprehensive panel today (2) CKD (chronic kidney disease) stage 3, GFR 30-59 ml/min: Code(s): N18.30 - Chronic kidney disease, stage 3 unspecified Plan: Avoid NSAIDs monitor renal function check comprehensive panel today follow-up in 3 months (3) HTN (hypertension): Code(s): I10 - Essential (primary) hypertension Plan: Controlled on medications (4) A-fib: Comment: Follows up with Cardiology at [facility], on Warfarin for s/p MVR Code(s): I48.91 - Unspecified atrial fibrillation Plan: Anticoagulated on warfarin Orders: Orders B Type Natriuretic Peptide Today I10 - Essential (primary) hypertension, I48.91 - Unspecified atrial fibrillation, I50.9 - Heart failure, unspecified, N18.30 - Chronic kidney disease, stage 3 unspecified Comprehensive Met. Panel Today I10 - Essential (primary) hypertension, I48.91 - Unspecified atrial fibrillation, I50.9 - Heart failure, unspecified, N18.30 - Chronic kidney disease, stage 3 unspecified Complete Blood Count Auto Diff Today I10 - Essential (primary) hypertension, I48.91 - Unspecified atrial fibrillation, I50.9 - Heart failure, unspecified, N18.30 - Chronic kidney disease, stage 3 unspecified Coding Level of Care Code Est Pt Level 4 (89176) Diagnoses CHF (congestive heart failure) I50.9 CKD (chronic kidney disease) stage 3, GFR 30-59 ml/min N18.30 HTN (hypertension) I10 A-fib I48.91
== END 2023-01-04 09:19 | disposition home or self-care (01) ==
PROVIDERS: PCP Internal Medicine; Visit Provider Internal Medicine
DX: I13.0 Hypertensive heart and chronic kidney disease with heart failure and stage 1 through stage 4 chronic kidney disease, or unspecified chronic kidney disease (principal); N18.30 Chronic kidney disease, stage 3 unspecified; I50.9 Heart failure, unspecified; I48.91 Unspecified atrial fibrillation
CPT/HCPCS: 99214

== ENCOUNTER 2023-01-04 09:10 | Outpatient (REF) | payer MEDICARE, BC, SELFPAY ==
[2023-01-04 11:23] LABS: MANUAL DIFF FLAG NO
[2023-01-04 11:41] LABS: Basophils Percent Auto 0.4 % (0-2); Eosinophils Absolute Auto 0.1 X10*3/uL (0.0-0.4); Eosinophils Percent Auto 1.9 % (0-4); Hematocrit 41.2 % (37.0-47.0); Hemoglobin 12.7 g/dl (12.0-16.0); Imm Gran Abs Auto 0.01 X10*3/uL (0.00-0.03); Imm Gran Pct Auto 0.2 % (0.0-0.4); Lymphocytes Percent Auto 17.9 % (20-40); Mean Corpuscular HGB Conc 30.8 g/dl (31.0-35.0); Mean Corpuscular Hemoglobin 25.9 pg (27.0-33.0); Mean Corpuscular Volume 84.1 fL (80.0-98.0); Mean Platelet Volume 11.4 fL (9.4-12.3); Monocytes Absolute Auto 0.4 X10*3/uL (0.1-1.2); Neutrophils Absolute Auto 4.2 x10*3/uL (2.0-8.3); Neutrophils Percent Auto 72.6 % (45-73); Platelet Count 178 X10*3/uL (160-400); Red Cell Distribution Width 16.6 % (11.0-16.0); White Blood Count 5.7 X10*3/uL (4.8-10.8)
[2023-01-04 12:42] LABS: B Type Natriuretic Peptide 295 pg/mL (<100)
[2023-01-04 15:32] LABS: Alanine Aminotransferase 13 U/L (0-31); Albumin Level 3.9 g/dL (3.5-5.0); Alkaline Phosphatase 114 U/L (39-117); Anion Gap 17 (12-20); Aspartate Amino Transferase 27 U/L (5-31); Blood Urea Nitrogen 13 mg/dL (9-16); Calcium 9.9 mg/dL (8.4-10.2); Carbon Dioxide 25 mmol/L (22-29); Chloride 106 mmol/L (96-108); Estimated Glomerular Filt Rate > 60; Glucose Random 102 mg/dL (60-115); Potassium 3.8 mmol/L (3.3-5.1); Sodium 144 mmol/L (135-145); Total Protein 7.2 g/dL (6.5-8.0)
== END 2023-01-04 09:11 | disposition home or self-care (01) ==
LOC: HO.HMGCLDS 09:10
PROVIDERS: PCP Internal Medicine; Visit Provider Internal Medicine
DX: I48.91 Unspecified atrial fibrillation (principal); I13.0 Hypertensive heart and chronic kidney disease with heart failure and stage 1 through stage 4 chronic kidney disease, or unspecified chronic kidney disease; N18.30 Chronic kidney disease, stage 3 unspecified; I50.9 Heart failure, unspecified
CPT/HCPCS: 36415; 80053; 83880; 85025

== ENCOUNTER 2023-01-28 08:02 | Outpatient (AMB) | payer MEDICARE, BC, SELFPAY ==
[2023-01-28 08:10] LABS: Prothrombin Time Whole Bld POC 27.5 sec (11.1-13.5); ~PT, ~INR - Anti Coag Clinic 2.3 (0.9-1.1)
--- NOTE | 2023-01-28 08:12 | MHC.OFFVISCO ---
Intake Intake Visit Reasons: Anticoagulation Allergies acetaminophen [From Vicodin] Allergy (Intermediate, Verified 01/28/23 08:05) per patient hydrocodone [From Vicodin] Allergy (Mild, Verified 01/28/23 08:05) CHEST PAIN Medication List - Last Reconciled 01/28/23 by Yolis Mendez RN albuterol sulfate 90 mcg/actuation 2 puffs inhalation Q4-6H PRN amlodipine 5 mg PO DAILY ascorbate calcium (vitamin C) 500 mg PO DAILY aspirin (Noel Low Dose Aspirin) 81 mg PO DAILY atenolol 50 mg PO DAILY atorvastatin 80 mg PO DAILY furosemide (Lasix) 40 mg PO DAILY fsjcttzzcscz-Rw-tmjp-minerals tabs PO omeprazole 20 mg PO BID potassium chloride ER 30 mEq (1.5 x 20 mEq) PO DAILY thiamine HCl (vitamin B1) 100 mg PO DAILY warfarin 2.5 mg See Protocol PO 6XW zinc gluconate 50 mg PO DAILY Nursing Note INR: 2.3 in therapeutic range Medications and supplements reviewed- PT TO REVIEW LIST AND VERIFY NEXT VISIT No changes in health, diet, medications, or supplements, Denies any signs and symptoms of bleeding or bruising or clotting. Bleeding, bruising, clotting discussed Nutritional guidance given Dose: 2.5MG DAILY F/U INR: 4 WEEKS Patient verbalizes understanding of instructions given Anti-Coag Initial Assessment Social Hx Patient Tobacco Use Status: Former Tobacco user Tobacco use type: Cigarette alcohol intake: never Coding Level of Care Code Est Patient Level 1 Diagnoses Current use of anticoagulant therapy Z79.01 Results AMB INR Fingerstick AMB INR Fingerstick 2.3 Last Edit by Yolis Mendez RN on 01/28/23 08:11 manual entry Assessment & Plan Assessment & Plan (1) Current use of anticoagulant therapy: Code(s): Z79.01 - shelter (current) use of 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
== END 2023-01-28 08:14 | disposition home or self-care (01) ==
LOC: HO.ACS 08:02
PROVIDERS: PCP Internal Medicine; Visit Provider Internal Medicine
DX: Z79.01 Long term (current) use of anticoagulants (principal)

== ENCOUNTER → 2023-01-28 08:02 | Outpatient (BNVA) | payer MEDICARE, BC, SELFPAY | PROVIDERS: PCP Internal Medicine; Visit Provider Internal Medicine | DX: I48.0 Paroxysmal atrial fibrillation (principal); Z79.01 Long term (current) use of anticoagulants; Z51.81 Encounter for therapeutic drug level monitoring | CPT/HCPCS: 85610; 99211 ==

== ENCOUNTER 2023-02-25 08:05 | Outpatient (AMB) | payer MEDICARE, BC, SELFPAY ==
--- NOTE | 2023-02-25 08:12 | MHC.OFFVISCO ---
Intake Intake Visit Reasons: Anticoagulation Allergies acetaminophen [From Vicodin] Allergy (Intermediate, Verified 02/25/23 08:07) per patient hydrocodone [From Vicodin] Allergy (Mild, Verified 02/25/23 08:07) CHEST PAIN Medication List - Last Reconciled 02/25/23 by Ninoska Nolen, RN albuterol sulfate 90 mcg/actuation 2 puffs inhalation Q4-6H PRN amlodipine 5 mg PO DAILY ascorbate calcium (vitamin C) 500 mg PO DAILY aspirin (Noel Low Dose Aspirin) 81 mg PO DAILY atenolol 50 mg PO DAILY atorvastatin 80 mg PO DAILY furosemide (Lasix) 40 mg PO DAILY wpjyacoacfsa-Dj-yyps-minerals tabs PO omeprazole 20 mg PO BID potassium chloride ER 30 mEq (1.5 x 20 mEq) PO DAILY thiamine HCl (vitamin B1) 100 mg PO DAILY warfarin 2.5 mg See Protocol PO 6XW zinc gluconate 50 mg PO DAILY Nursing Note INR: 2.0- in therapeutic range Medications and supplements reviewed- no changes No changes in health, diet, medications, or supplements, Denies any signs and symptoms of bleeding or bruising or clotting. Bleeding, bruising, clotting discussed Nutritional guidance given- no greens for 2 days, eat a red today Dose: 2.5mg x 7 F/U INR: pt req 4 weeks Patient verbalizes understanding of instructions given Anti-Coag Initial Assessment Social Hx Patient Tobacco Use Status: Former Tobacco user Tobacco use type: Cigarette alcohol intake: never Coding Level of Care Code Est Patient Level 1 Diagnoses Current use of anticoagulant therapy Z79.01 Assessment & Plan Assessment & Plan (1) Current use of anticoagulant therapy: Code(s): Z79.01 - 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
[2023-02-25 08:13] LABS: Prothrombin Time Whole Bld POC 24.2 sec (11.1-13.5)
== END 2023-02-25 08:17 | disposition home or self-care (01) ==
LOC: HO.ACS 08:05
PROVIDERS: PCP Internal Medicine; Visit Provider Internal Medicine
DX: Z79.01 Long term (current) use of anticoagulants (principal)

== ENCOUNTER → 2023-02-25 08:05 | Outpatient (BNVA) | payer MEDICARE, BC, SELFPAY | PROVIDERS: PCP Internal Medicine; Visit Provider Internal Medicine | DX: I48.0 Paroxysmal atrial fibrillation (principal); Z79.01 Long term (current) use of anticoagulants; Z51.81 Encounter for therapeutic drug level monitoring | CPT/HCPCS: 85610; 99211 ==

== ENCOUNTER 2023-03-14 08:18 | Outpatient (REF) | payer MEDICARE, BC, SELFPAY ==
--- NOTE | ~2023-03-14 | US_ITS ---
EXAMINATION: US RETROPERITONEAL LIMITED (RENAL ONLY) CLINICAL INFORMATION: Calculus of kidney. Right kidney 6 mm stone, punctate left kidney stones. COMPARISON: CT abdomen and pelvis 09/12/2022. Ultrasound abdomen limited 03/05/2022 and 09/08/2021. TECHNIQUE: Real-time imaging of the kidneys. FINDINGS: RIGHT KIDNEY: 10.1 x 4.1 x 4.4 cm (SAG x AP x TRV). The kidney is normal in size, contour, and echogenicity. Renal cortical thickness is normal. Stone or cluster of stones in the upper pole measuring 9 x 5 x 9 mm and 5 x 3 x 4 mm. No focal parenchymal lesions or hydronephrosis. LEFT KIDNEY: 11.8 x 4.3 x 4.8 cm (SAG x AP x TRV). The kidney is normal in size, contour, and echogenicity. Renal cortical thickness is normal. Small stones measuring 2 to 3 mm in the mid and lower pole. 2.4 x 2.1 x 2.2 cm simple cyst in the lower pole. No imaging follow-up recommended. No hydronephrosis. US/US renal BI IMPRESSION: Bilateral renal stones, right greater than left.
== END 2023-03-14 08:19 | disposition home or self-care (01) ==
LOC: HO.HMGCX 08:18
PROVIDERS: PCP Internal Medicine; Visit Provider Urology
DX: N20.0 Calculus of kidney (principal)
CPT/HCPCS: 76775

== ENCOUNTER 2023-03-25 08:01 | Outpatient (AMB) | payer MEDICARE, BC, SELFPAY ==
[2023-03-25 08:11] LABS: Prothrombin Time Whole Bld POC 20.2 sec (11.1-13.5); ~PT, ~INR - Anti Coag Clinic 1.7 (0.9-1.1)
--- NOTE | 2023-03-25 08:13 | MHC.OFFVISCO ---
Intake Intake Visit Reasons: Anticoagulation Allergies acetaminophen [From Vicodin] Allergy (Intermediate, Verified 03/25/23 08:06) per patient hydrocodone [From Vicodin] Allergy (Mild, Verified 03/25/23 08:06) CHEST PAIN Medication List - Last Reconciled 03/25/23 by Yolis Mendez, RN albuterol sulfate 90 mcg/actuation 2 puffs inhalation Q4-6H PRN amlodipine 5 mg PO DAILY ascorbate calcium (vitamin C) 500 mg PO DAILY aspirin (Noel Low Dose Aspirin) 81 mg PO DAILY atenolol 50 mg PO DAILY atorvastatin 80 mg PO DAILY furosemide (Lasix) 40 mg PO DAILY lkbpvlzkgslq-Cu-fdlf-minerals tabs PO omeprazole 20 mg PO BID potassium chloride ER 30 mEq (1.5 x 20 mEq) PO DAILY thiamine HCl (vitamin B1) 100 mg PO DAILY warfarin 2.5 mg See Protocol PO 6XW zinc gluconate 50 mg PO DAILY Nursing Note INR: 1.7 out of therapeutic range- had covid and flu shot 3 weeks Medications and supplements reviewed No changes in health, diet, medications, or supplements, Denies any signs and symptoms of bleeding or bruising or clotting. Bleeding, bruising, clotting discussed Nutritional guidance given - eat orange and reds to day Dose: 5mg x 1 day/ 2.5mg x 6 days F/U INR: 2 weeks Patient verbalizes understanding of instructions given Anti-Coag Initial Assessment Social Hx Patient Tobacco Use Status: Former Tobacco user Tobacco use type: Cigarette alcohol intake: never Coding Level of Care Code Est Patient Level 1 Diagnoses Current use of anticoagulant therapy Z79.01 Assessment & Plan Assessment & Plan (1) Current use of anticoagulant therapy: Code(s): Z79.01 - longterm (current) use of 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
== END 2023-03-25 08:18 | disposition home or self-care (01) ==
LOC: HO.ACS 08:01
PROVIDERS: PCP Internal Medicine; Visit Provider Internal Medicine
DX: Z79.01 Long term (current) use of anticoagulants (principal)

== ENCOUNTER → 2023-03-25 08:01 | Outpatient (BNVA) | payer MEDICARE, BC, SELFPAY | PROVIDERS: PCP Internal Medicine; Visit Provider Internal Medicine | DX: I48.0 Paroxysmal atrial fibrillation (principal); Z79.01 Long term (current) use of anticoagulants; Z51.81 Encounter for therapeutic drug level monitoring | CPT/HCPCS: 85610; 99211 ==

== ENCOUNTER 2023-04-08 08:07 | Outpatient (AMB) | payer MEDICARE, BC, SELFPAY ==
[2023-04-08 08:14] LABS: Prothrombin Time Whole Bld POC 19.9 sec (11.1-13.5); ~PT, ~INR - Anti Coag Clinic 1.7 (0.9-1.1)
--- NOTE | 2023-04-08 08:21 | MHC.OFFVISCO ---
Intake Intake Visit Reasons: Anticoagulation Allergies acetaminophen [From Vicodin] Allergy (Intermediate, Verified 04/08/23 08:07) per patient hydrocodone [From Vicodin] Allergy (Mild, Verified 04/08/23 08:07) CHEST PAIN Medication List - Last Reconciled 04/08/23 by Yolis Mendez, RN albuterol sulfate 90 mcg/actuation 2 puffs inhalation Q4-6H PRN amlodipine 5 mg PO DAILY ascorbate calcium (vitamin C) 500 mg PO DAILY aspirin (Noel Low Dose Aspirin) 81 mg PO DAILY atenolol 50 mg PO DAILY atorvastatin 80 mg PO DAILY furosemide (Lasix) 40 mg PO DAILY qjltegxyujov-Tb-kxrn-minerals tabs PO omeprazole 20 mg PO BID potassium chloride ER 30 mEq (1.5 x 20 mEq) PO DAILY thiamine HCl (vitamin B1) 100 mg PO DAILY warfarin 2.5 mg See Protocol PO 6XW zinc gluconate 50 mg PO DAILY Nursing Note INR: 1.7 OUT OF therapeutic range HAD SEVRAL VACINES OVER THE MONTH COVID, FLU AND RSV, PLUS CABBAGE LAST , INR LOW X 2 VISITS - WILL INCREASE DOSE X 2 WEEKS AND RECHECK Medications and supplements reviewed No changes in health, diet, medications, or supplements, Denies any signs and symptoms of bleeding or bruising or clotting. Bleeding, bruising, clotting discussed Nutritional guidance given AVOID GREENS X 3 DAYS Dose: INCREASE TEMP FOR 5MG X 1 DAY/ 2.5MG X 6 DAYS F/U INR: 2 WEEKS Patient verbalizes understanding of instructions given Anti-Coag Initial Assessment Social Hx Patient Tobacco Use Status: Former Tobacco user Tobacco use type: Cigarette alcohol intake: never Coding Level of Care Code Est Patient Level 1 Diagnoses Current use of anticoagulant therapy Z79.01 Assessment & Plan Assessment & Plan (1) Current use of anticoagulant therapy: Code(s): Z79.01 - nursing home (current) use of 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
== END 2023-04-08 08:25 | disposition home or self-care (01) ==
LOC: HO.ACS 08:07
PROVIDERS: PCP Internal Medicine; Visit Provider Internal Medicine
DX: Z79.01 Long term (current) use of anticoagulants (principal)

== ENCOUNTER → 2023-04-08 08:07 | Outpatient (BNVA) | payer MEDICARE, BC, SELFPAY | PROVIDERS: PCP Internal Medicine; Visit Provider Internal Medicine | DX: I48.0 Paroxysmal atrial fibrillation (principal); Z79.01 Long term (current) use of anticoagulants; Z51.81 Encounter for therapeutic drug level monitoring | CPT/HCPCS: 85610; 99211 ==

== ENCOUNTER 2023-04-15 08:43 | Outpatient (AMB) | payer MEDICARE, BC, SELFPAY ==
--- NOTE | 2023-04-15 08:46 | A.OFFVIS_ITS ---
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 Required: No Accompanied by: Significant Other Allergies acetaminophen [From Vicodin] Allergy (Intermediate, Verified 04/15/23 08:58) per patient hydrocodone [From Vicodin] Allergy (Mild, Verified 04/15/23 08:58) CHEST PAIN Medication List - Last Reconciled 04/15/23 by Jerzy Eng MD albuterol sulfate 90 mcg/actuation 2 puffs inhalation Q4-6H PRN amlodipine 5 mg PO DAILY ascorbate calcium (vitamin C) 500 mg PO DAILY aspirin (Noel Low Dose Aspirin) 81 mg PO DAILY atenolol 50 mg PO DAILY atorvastatin 80 mg PO DAILY furosemide (Lasix) 40 mg PO DAILY vkjxopsejzdw-Mk-fjzw-minerals tabs PO omeprazole 20 mg PO BID potassium chloride ER 30 mEq (1.5 x 20 mEq) PO DAILY thiamine HCl (vitamin B1) 100 mg PO DAILY warfarin 2.5 mg See Protocol PO 6XW zinc gluconate 50 mg PO DAILY HPI HPI Comments History of Present Illness Details Ramona is an 82-year-old female who presents today to the office for a follow-up. 04/15/2023? She is followed today for US results. She was last seen by me on 10/11/2022 for bilateral kidney stones. I discussed risks and benefits of ESWL procedure with the patient. The patient wants to continue with monitoring for renal calculi. Renal US was ordered. She denies any blood in the urine or burning with urination. I discussed the renal US results from 03/14/2023 revealed bilateral kidneys stones. I did discuss that I feel that US is not accurate in terms of the size of the kidney stones. I reviewed the blood work results from 01/04/2023 revealed BUN was 13 and Creatinine was 0.83. 04/15/2023: Evaluation today?UA?leukocyt es: 15 Rainer; blood: 3 +; protein: 1 +. Review of chart: Imaging: CTAP results reviewed--09/12/22-- findings of punctate nonobstructing calculus in the posterior left upper kidney. 6 x 3 mm nonobstructing calculus in the posterior right upper kidney. 04/15/2023: Plan: To continue monitor the kidney stones. CT in 1 year. 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 Mother No problems noted. Maternal Aunt Breast cancer Social History Household Members: Spouse Housing: House Do you presently have visiting nurse or other home services: No Alcohol intake: never Patient Tobacco Use Status: Former Tobacco user Tobacco use type: Cigarette e-Cigarette/Vaping Use: Never Used Second Hand Smoke Exposure: No service: No Current occupational status: retired Cognitive needs: No Hearing needs: No Vision needs: No Review of Systems Const All systems reviewed & are unremarkable except as noted in HPI and below Reports no additional complaints Eyes Reports no additional complaints ENT Denies neck pain Resp Denies cough Reports no additional complaints Musc Reports no additional complaints and Denies neck pain Skin/Breast Denies rash and Denies unusual bruising Neuro Reports no additional complaints Psych Reports no additional complaints Endo Reports no additional complaints Pedro/Lymph Reports no additional complaints Aller/Immun Reports no additional complaints Results AMB Urinalysis, Automated UA Leukoctes 15 Rainer/uL Last Edit by JULIO CESAR Abarca on 04/15/23 09:02 UA Nitrite Negative Last Edit by Katherine Yang Perry on 04/15/23 09:02 UA Urobilinogen 0.2 mg/dL Last Edit by Katherine Yang [facility] on 04/15/23 09:0 2 UA Protein 30 mg/dL Last Edit by Katherine Yang A on 04/15/23 09:02 1+ Katherine Yang 04/15/23 09:02 UA pH 5.5 Last Edit by Katherine Yang [facility] on 04/15/23 09:02 UA Blood 200 Neeraj/uL Last Edit by Katherine Yang [facility] on 04/15/23 09:02 3+ Katherine Yang 04/15/23 09:02 UA Specific [place] 1.020 Last Edit by Katherine Yang [facility] on 04/15/23 09: 02 UA Ketone Negative Last Edit by Katherine Yang [facility] on 04/15/23 09:02 UA Bilirubin 0 mg/dL Last Edit by Katherine Yang [facility] on 04/15/23 09:02 UA Glucose 0 mg/dL Last Edit by Katherine Yang [facility] on 04/15/23 09:02 Results Reviewed Results Reviewed: Laboratory Last Values Urine pH (Auto) 5.5 04/15/23 09:00 Specific [place] (Auto) 1.020 04/15/23 09:00 Urine Protein (Auto) 30 mg/dL 04/15/23 09:00 Glucose (UA)(Auto) 0 mg/dL 04/15/23 09:00 Urine Ketones (Auto) Negative 04/15/23 09:00 Urine Blood (Auto) 200 Neeraj/uL 04/15/23 09:00 Urine Nitrite (Auto) Negative 04/15/23 09:00 Urine Bilirubin (Auto) 0 mg/dL 04/15/23 09:00 Urine Urobilinogen (Auto) 0.2 mg/dL 04/15/23 09:00 Leukocyte Esterase (Auto) 15 Rainer/uL 04/15/23 09:00 Date of Service: 03/14/23 EXAMINATION: US RETROPERITONEAL LIMITED (RENAL ONLY) CLINICAL INFORMATION: Calculus of kidney. Right kidney 6 mm stone, punctate left kidney stones. COMPARISON: CT abdomen and pelvis 09/12/2022. Ultrasound abdomen limited 03/05/2022 and 09/08/2021. FINDINGS: RIGHT KIDNEY: 10.1 x 4.1 x 4.4 cm (SAG x AP x TRV). The kidney is normal in size, contour, and echogenicity. Renal cortical thickness is normal. Stone or cluster of stones in the upper pole measuring 9 x 5 x 9 mm and 5 x 3 x 4 mm. No focal parenchymal lesions or hydronephrosis. LEFT KIDNEY: 11.8 x 4.3 x 4.8 cm (SAG x AP x TRV). The kidney is normal in size, contour, and echogenicity. Renal cortical thickness is normal. Small stones measuring 2 to 3 mm in the mid and lower pole. 2.4 x 2.1 x 2.2 cm simple cyst in the lower pole. No imaging follow-up recommended. No hydronephrosis. IMPRESSION: Bilateral renal stones, right greater than left. Date of Service: 09/12/22 EXAMINATION: CT ABDOMEN AND PELVIS WITHOUT CONTRAST CLINICAL INFORMATION: Calculus of kidney. COMPARISON: CT abdomen and pelvis 08/24/2022. FINDINGS: LUNG BASES: Increasing small bilateral pleural effusions and atelectasis at the lung bases compared to 08/24/2022. LIVER, GALLBLADDER, AND BILIARY TREE: The liver is normal in size, shape, and attenuation. No focal hepatic lesion or biliary ductal dilatation is present. Cholecystectomy. PANCREAS: No discrete pancreatic mass. No ductal dilatation. SPLEEN: Calcified granulomas. ADRENAL GLANDS: No adrenal mass. KIDNEYS AND URETERS: Punctate nonobstructing calculus in the posterior left upper kidney. 6 x 3 mm nonobstructing calculus in the posterior right upper kidney. No hydronephrosis. BLADDER: Unremarkable. GASTROINTESTINAL TRACT: Small hiatal hernia. The small bowel is normal in caliber. The appendix appears normal. There is diverticulosis without evidence of diverticulitis. ABDOMINAL WALL: Generalized laxity of the abdominal wall without significant discrete hernia. LYMPH NODES: No lymphadenopathy. VASCULAR: No aortic aneurysm. Moderate aortoiliac calcium. PELVIC VISCERA: The uterus and adnexa are unremarkable. OSSEOUS STRUCTURES: Degenerative changes in the spine. Right hip fracture ORIF. IMPRESSION: Nonobstructing bilateral renal calculi as above. Increasing small bilateral pleural effusions and bibasilar atelectasis. Compared to CT 08/24/2022. Assessment & Plan Assessment & Plan (1) Bilateral kidney stones: Code(s): N20.0 - Calculus of kidney (2) CKD (chronic kidney disease): Code(s): N18.9 - Chronic kidney disease, unspecified Plan To continue monitor the kidney stones. CT in 1 year. Orders: Orders AMB Urinalysis Automated Today Z13.9 - Encounter for screening, unspecified CT abdomen pelvis wo IV con 11 Months N20.0 - Calculus of kidney Patient Instructions: The patient had an opportunity to ask questions regarding treatment plan. All questions were answered. Imaging, Laboratory studies and physical exam results were discussed and reviewed in detail. No major barriers to understanding were identified. The patient expressed understanding and agreement with the above treatment plan. The patient is aware they should contact our office by phone for worsening of their current condition or the appearance of new symptoms. Compliance is encouraged with any medications and followup testing that is ordered. It is a privilege to be allowed the opportunity to participate in the urologic care of your patient. If you have any questions or concerns regarding treatment for the above conditions please do not hesitate to contact me. The office telephone contact is [phone]. This note is constructed in part using voice recognition software. While every effort has been made to ensure accuracy security administrator errors may have been included. Yours sincerely, Jerzy Eng MD Coding Level of Care Code Est Pt Level 3 (28927) Diagnoses Bilateral kidney stones N20.0 CKD (chronic kidney disease) N18.9
== END 2023-04-15 09:23 | disposition home or self-care (01) ==
PROVIDERS: Visit Provider Urology
DX: N20.0 Calculus of kidney (principal); N18.9 Chronic kidney disease, unspecified; Z13.9 Encounter for screening, unspecified
CPT/HCPCS: 99213

== ENCOUNTER → 2023-04-15 08:43 | Outpatient (BNVA) | payer MEDICARE, BC, SELFPAY | PROVIDERS: Visit Provider Urology | DX: N20.0 Calculus of kidney (principal); N18.9 Chronic kidney disease, unspecified | CPT/HCPCS: 81003; 99212 ==

== ENCOUNTER 2023-04-22 08:18 | Outpatient (AMB) | payer MEDICARE, BC, SELFPAY ==
[2023-04-22 08:34] LABS: Prothrombin Time Whole Bld POC 25.4 sec (11.1-13.5); ~PT, ~INR - Anti Coag Clinic 2.1 (0.9-1.1)
--- NOTE | 2023-04-22 08:39 | MHC.OFFVISCO ---
Intake Intake Visit Reasons: Anticoagulation Allergies acetaminophen [From Vicodin] Allergy (Intermediate, Verified 04/22/23 08:27) per patient hydrocodone [From Vicodin] Allergy (Mild, Verified 04/22/23 08:27) CHEST PAIN Medication List - Last Reconciled 04/22/23 by Yolis Mendez, RN albuterol sulfate 90 mcg/actuation 2 puffs inhalation Q4-6H PRN amlodipine 5 mg PO DAILY ascorbate calcium (vitamin C) 500 mg PO DAILY aspirin (Noel Low Dose Aspirin) 81 mg PO DAILY atenolol 50 mg PO DAILY atorvastatin 80 mg PO DAILY furosemide (Lasix) 40 mg PO DAILY drpcrviciyki-Ii-lsej-minerals tabs PO omeprazole 20 mg PO BID potassium chloride ER 30 mEq (1.5 x 20 mEq) PO DAILY thiamine HCl (vitamin B1) 100 mg PO DAILY warfarin 2.5 mg See Protocol PO 6XW zinc gluconate 50 mg PO DAILY Nursing Note INR: 2.1 in therapeutic range Medications and supplements reviewed No changes in health, diet, medications, or supplements, Denies any signs and symptoms of bleeding or bruising or clotting. Bleeding, bruising, clotting discussed Nutritional guidance given Dose: 5mg x 1 days/ 2.5mg x 6 days F/U INR: 2 weeks Patient verbalizes understanding of instructions given Anti-Coag Initial Assessment Social Hx Patient Tobacco Use Status: Former Tobacco user Tobacco use type: Cigarette alcohol intake: never Coding Level of Care Code Est Patient Level 1 Diagnoses Current use of anticoagulant therapy Z79.01 Assessment & Plan Assessment & Plan (1) Current use of anticoagulant therapy: Code(s): Z79.01 - [facility] (current) use of 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
== END 2023-04-22 08:41 | disposition home or self-care (01) ==
LOC: HO.ACS 08:18
PROVIDERS: PCP Internal Medicine; Visit Provider Internal Medicine
DX: Z79.01 Long term (current) use of anticoagulants (principal)

== ENCOUNTER → 2023-04-22 08:18 | Outpatient (BNVA) | payer MEDICARE, BC, SELFPAY | PROVIDERS: PCP Internal Medicine; Visit Provider Internal Medicine | DX: I48.0 Paroxysmal atrial fibrillation (principal); Z79.01 Long term (current) use of anticoagulants; Z51.81 Encounter for therapeutic drug level monitoring | CPT/HCPCS: 85610; 99211 ==

== ENCOUNTER 2023-05-06 08:14 | Outpatient (AMB) | payer MEDICARE, BC, SELFPAY ==
--- NOTE | 2023-05-06 08:24 | MHC.OFFVISCO ---
Intake Intake Visit Reasons: Anticoagulation Allergies acetaminophen [From Vicodin] Allergy (Intermediate, Verified 05/06/23 08:20) per patient hydrocodone [From Vicodin] Allergy (Mild, Verified 05/06/23 08:20) CHEST PAIN Medication List - Last Reconciled 05/06/23 by Ninoska Nolen RN albuterol sulfate 90 mcg/actuation 2 puffs inhalation Q4-6H PRN amlodipine 5 mg PO DAILY ascorbate calcium (vitamin C) 500 mg PO DAILY aspirin (Noel Low Dose Aspirin) 81 mg PO DAILY atenolol 50 mg PO DAILY atorvastatin 80 mg PO DAILY furosemide (Lasix) 40 mg PO DAILY hpozidfbtgcp-Tu-zlef-minerals tabs PO omeprazole 20 mg PO BID potassium chloride ER 30 mEq (1.5 x 20 mEq) PO DAILY thiamine HCl (vitamin B1) 100 mg PO DAILY warfarin 2.5 mg See Protocol PO 6XW zinc gluconate 50 mg PO DAILY Nursing Note INR: 2.6- in therapeutic range of 2-3 Medications and supplements reviewed- no changes No changes in health, diet, medications, or supplements, Denies any signs and symptoms of bleeding or bruising or clotting. 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
[2023-05-06 08:33] LABS: Prothrombin Time Whole Bld POC 31.7 sec (11.1-13.5); ~PT, ~INR - Anti Coag Clinic 2.6 (0.9-1.1)
== END 2023-05-06 08:35 | disposition home or self-care (01) ==
LOC: HO.ACS 08:14
PROVIDERS: PCP Internal Medicine; Visit Provider Internal Medicine
DX: Z79.01 Long term (current) use of anticoagulants (principal)

== ENCOUNTER → 2023-05-06 08:14 | Outpatient (BNVA) | payer MEDICARE, BC, SELFPAY | PROVIDERS: PCP Internal Medicine; Visit Provider Internal Medicine | DX: I48.0 Paroxysmal atrial fibrillation (principal); Z79.01 Long term (current) use of anticoagulants; Z51.81 Encounter for therapeutic drug level monitoring | CPT/HCPCS: 85610; 99211 ==

== ENCOUNTER 2023-05-28 08:01 | Outpatient (AMB) | payer MEDICARE, BC, SELFPAY ==
[2023-05-28 08:17] LABS: Prothrombin Time Whole Bld POC 30.3 sec (11.1-13.5); ~PT, ~INR - Anti Coag Clinic 2.5 (0.9-1.1)
--- NOTE | 2023-05-28 08:20 | MHC.OFFVISCO ---
Intake Intake Visit Reasons: Anticoagulation Allergies acetaminophen [From Vicodin] Allergy (Intermediate, Verified 05/06/23 08:20) per patient hydrocodone [From Vicodin] Allergy (Mild, Verified 05/06/23 08:20) CHEST PAIN Medication List - Last Reconciled 05/28/23 by Suzanne Soares RN albuterol sulfate 90 mcg/actuation 2 puffs inhalation Q4-6H PRN amlodipine 5 mg PO DAILY ascorbate calcium (vitamin C) 500 mg PO DAILY aspirin (Noel Low Dose Aspirin) 81 mg PO DAILY atenolol 50 mg PO DAILY atorvastatin 80 mg PO DAILY furosemide (Lasix) 40 mg PO DAILY rhazuptzgkty-Wb-miyj-minerals tabs PO omeprazole 20 mg PO BID potassium chloride ER 30 mEq (1.5 x 20 mEq) PO DAILY thiamine HCl (vitamin B1) 100 mg PO DAILY warfarin 2.5 mg See Protocol PO 6XW zinc gluconate 50 mg PO DAILY Nursing Note Amb to ACS using cane, accomp by spouse, feeling well Medications and supplements reviewed No changes in health, diet, medications, or supplements Denies any unusual signs and symptoms of bruising, bleeding Denies any new Chest pain, SOB, or clotting INR: 2.5 in therapeutic range Nutritional guidance given: balance greens and reds in diet Dose: continue usual dosing; 5mg on Sundays and 2.5mg all other days F/U INR: 4 weeks Patient verbalizes understanding of instructions given with accurate read back/ teach back of dosing Anti-Coag Initial Assessment Social Hx Patient Tobacco Use Status: Former Tobacco user Tobacco use type: Cigarette alcohol intake: never Questionnaires HAS-BLED Does the patient had uncontrolled Hypertension?: No Does the patient have renal disease?: Yes Does the patient have liver disease?: No Does the patient have a history of stroke?: No Has the patient had major bleeding or predisposition to bleeding?: No Does the patient have labile INRs?: No Is the patient over 65 years of age?: Yes Is the patient on medications that gives them a predisposition to bleeding?: Yes Does the patient use alcohol?: No HAS-BLED Score: 3 CHADSVASC Age: 75 or over Gender: Female Does the patient have a history of CHF?: No Does the patient have a history of Hypertension?: Yes Does the patient have a history of Stroke/TIA/Thromboembolism?: Yes Does the patient have a history of Vascular Disease (prior NV, PAD or aortic plaque)?: Yes Does the patient have a history of Diabetes?: No CHADS VACS Score: 7 Nathalie Prediction Score Rsk VTE Active Cancer: No Previous VTE, excluding superficial vein thrombosis: No Reduced mobility: Yes Already known Thrombophilic Condition: No With-in last month Trauma and/or Surgery: No Elderly 70 year or older: Yes Heart and/or Respiratory Failure: Yes Acute Myocardial infarction and/or Ischemic Stroke: No Acute Infection and/or Rheumatologic Disorder: No Obesity (BMI 30 or greater): Yes Ongoing Hormonal Treatment: No Score: 6 Nathalie Score less than 4; Low Risk of VTE Nathalie Score 4 or greater; High Risk of VTE Coding Level of Care Code Est Patient Level 1 Diagnoses Current use of anticoagulant therapy Z79.01 Time Spent (min) 15 Assessment & Plan Assessment & Plan (1) Current use of anticoagulant therapy: Code(s): 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
== END 2023-05-28 08:28 | disposition home or self-care (01) ==
LOC: HO.ACS 08:01
PROVIDERS: PCP Internal Medicine; Visit Provider Internal Medicine
DX: Z79.01 Long term (current) use of anticoagulants (principal)

== ENCOUNTER → 2023-05-28 08:01 | Outpatient (BNVA) | payer MEDICARE, BC, SELFPAY | PROVIDERS: PCP Internal Medicine; Visit Provider Internal Medicine | DX: I48.0 Paroxysmal atrial fibrillation (principal); Z51.81 Encounter for therapeutic drug level monitoring; Z79.01 Long term (current) use of anticoagulants | CPT/HCPCS: 85610; 99211 ==

== ENCOUNTER 2023-07-10 08:07 | Outpatient (AMB) | payer MEDICARE, BC, SELFPAY ==
[2023-07-10 08:26] LABS: Prothrombin Time Whole Bld POC 58.2 sec (11.1-13.5); ~PT, ~INR - Anti Coag Clinic 4.9 (0.9-1.1)
--- NOTE | 2023-07-10 08:36 | MHC.OFFVISCO ---
Intake Intake Visit Reasons: Anticoagulation Allergies acetaminophen [From Vicodin] Allergy (Intermediate, Verified 07/10/23 08:19) per patient hydrocodone [From Vicodin] Allergy (Mild, Verified 07/10/23 08:19) CHEST PAIN Medication List - Last Reconciled 07/10/23 by Yolis Mendez RN albuterol sulfate 90 mcg/actuation 2 puffs inhalation Q4-6H PRN amlodipine 5 mg PO DAILY ascorbate calcium (vitamin C) 500 mg PO DAILY aspirin (Noel Low Dose Aspirin) 81 mg PO DAILY atenolol 50 mg PO DAILY atorvastatin 80 mg PO DAILY furosemide (Lasix) 40 mg PO DAILY qjwpblzjezne-Qw-iyub-minerals tabs PO omeprazole 20 mg PO BID potassium chloride ER 30 mEq (1.5 x 20 mEq) PO DAILY thiamine HCl (vitamin B1) 100 mg PO DAILY warfarin 2.5 mg See Protocol PO 6XW zinc gluconate 50 mg PO DAILY Nursing Note INR 4.9?out of therapeutic range Medications and supplements reviewed Patient status: S/P COVID X 2 WEEKS AGO Medications or supplements: NO CHANGE IN RX BUT DID TAKE TYELNOL DURING COVID Diet: HAD SLIGHT DECREASE IN APPETITE DURING COVID - DID HAVE GREENS JUST RECENTLY Denies any signs and symptoms of bleeding or clotting or unusual bruising Bleeding, bruising, clotting discussed Nutritional guidance given: COOKED GREENS TODAY Dose: ALREADY TOOK TODAY'S DOSE HOLD SATURDAY 1/25MG SAT THEN RESUME 5MG X 1 DAY/ 2.5MG X 6 DAYS F/U INR Date: 1WEEK OR SOONER PER PT SCHEDULE PT INSTRUCTED TO GO TO ER FOR ANY FALLS OR BUMP TO HEAD OR ANY UNUSUAL BLEEDING OR BRUISING?? Patient AND SPOUSE verbalizing understanding of instructions given. 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
== END 2023-07-10 08:40 | disposition home or self-care (01) ==
LOC: HO.ACS 08:07
PROVIDERS: PCP Internal Medicine; Visit Provider Internal Medicine
DX: Z79.01 Long term (current) use of anticoagulants (principal)

== ENCOUNTER → 2023-07-10 08:07 | Outpatient (BNVA) | payer MEDICARE, BC, SELFPAY | PROVIDERS: PCP Internal Medicine; Visit Provider Internal Medicine | DX: I48.0 Paroxysmal atrial fibrillation (principal); Z79.01 Long term (current) use of anticoagulants; Z51.81 Encounter for therapeutic drug level monitoring | CPT/HCPCS: 85610; 99211 ==

== ENCOUNTER 2023-07-19 10:23 | Outpatient (AMB) | payer MEDICARE, BC, SELFPAY ==
[2023-07-19 10:58] LABS: Prothrombin Time Whole Bld POC 29.8 sec (11.1-13.5); ~PT, ~INR - Anti Coag Clinic 2.5 (0.9-1.1)
--- NOTE | 2023-07-19 11:00 | MHC.OFFVISCO ---
Intake Intake Visit Reasons: Anticoagulation Allergies acetaminophen [From Vicodin] Allergy (Intermediate, Verified 07/19/23 10:53) per patient hydrocodone [From Vicodin] Allergy (Mild, Verified 07/19/23 10:53) CHEST PAIN Medication List - Last Reconciled 07/19/23 by Yolis Mendez, RN albuterol sulfate 90 mcg/actuation 2 puffs inhalation Q4-6H PRN amlodipine 5 mg PO DAILY amoxicillin 1,000 mg PO BID ascorbate calcium (vitamin C) 500 mg PO DAILY aspirin (Noel Low Dose Aspirin) 81 mg PO DAILY atenolol 50 mg PO DAILY atorvastatin 80 mg PO DAILY furosemide (Lasix) 40 mg PO DAILY wpvrtobmxusb-Bp-msbz-minerals tabs PO omeprazole 20 mg PO BID potassium chloride ER 30 mEq (1.5 x 20 mEq) PO DAILY thiamine HCl (vitamin B1) 100 mg PO DAILY warfarin 2.5 mg See Protocol PO 6XW zinc gluconate 50 mg PO DAILY Nursing Note INR: 2.5 in therapeutic range Medications and supplements reviewed No changes in health, diet, medications, or supplements, FEELS MUCH BETTER S/P COVID Denies any signs and symptoms of bleeding or bruising or clotting. 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
== END 2023-07-19 11:03 | disposition home or self-care (01) ==
LOC: HO.ACS 10:23
PROVIDERS: PCP Internal Medicine; Visit Provider Internal Medicine
DX: Z79.01 Long term (current) use of anticoagulants (principal)

== ENCOUNTER → 2023-07-19 10:23 | Outpatient (BNVA) | payer MEDICARE, BC, SELFPAY | PROVIDERS: PCP Internal Medicine; Visit Provider Internal Medicine | DX: I48.0 Paroxysmal atrial fibrillation (principal); Z79.01 Long term (current) use of anticoagulants; Z51.81 Encounter for therapeutic drug level monitoring | CPT/HCPCS: 85610; 99211 ==

== ENCOUNTER 2023-08-12 08:24 | Outpatient (AMB) | payer MEDICARE, BC, SELFPAY ==
[2023-08-12 08:33] LABS: Prothrombin Time Whole Bld POC 42.2 sec (11.1-13.5); ~PT, ~INR - Anti Coag Clinic 3.5 (0.9-1.1)
--- NOTE | 2023-08-12 08:41 | MHC.OFFVISCO ---
Intake Intake Visit Reasons: Anticoagulation Allergies acetaminophen [From Vicodin] Allergy (Intermediate, Verified 07/19/23 10:53) per patient hydrocodone [From Vicodin] Allergy (Mild, Verified 07/19/23 10:53) CHEST PAIN Medication List - Last Reconciled 08/12/23 by Yolis Mendez, RN albuterol sulfate 90 mcg/actuation 2 puffs inhalation Q4-6H PRN amlodipine 5 mg PO DAILY ascorbate calcium (vitamin C) 500 mg PO DAILY aspirin (Noel Low Dose Aspirin) 81 mg PO DAILY atenolol 50 mg PO DAILY atorvastatin 80 mg PO DAILY furosemide (Lasix) 40 mg PO DAILY zfrdgavzspuy-Ab-adqz-minerals tabs PO omeprazole 20 mg PO BID potassium chloride ER 30 mEq (1.5 x 20 mEq) PO DAILY thiamine HCl (vitamin B1) 100 mg PO DAILY warfarin 2.5 mg See Protocol PO 6XW zinc gluconate 50 mg PO DAILY Nursing Note INR 3.5 out of therapeutic range Medications and supplements reviewed Patient status: well, did not eat enough greens Medications or supplements: states no changes Diet: good Denies any signs and symptoms of bleeding or clotting or unusual bruising Bleeding, bruising, clotting discussed Nutritional guidance given: review food list weekly, eat greens cooked greens to lower INR more- states plan to have corned beef and cabbage Dose: 1.25mg tomorrow- already took today's dose, the resume 5mg saturday/ 2.5mg x 6days F/U INR Date : 2 weeks?? Patient verbalizing understanding of instructions given. 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
== END 2023-08-12 08:44 | disposition home or self-care (01) ==
LOC: HO.ACS 08:24
PROVIDERS: PCP Internal Medicine; Visit Provider Internal Medicine
DX: Z79.01 Long term (current) use of anticoagulants (principal)

== ENCOUNTER → 2023-08-12 08:24 | Outpatient (BNVA) | payer MEDICARE, BC, SELFPAY | PROVIDERS: PCP Internal Medicine; Visit Provider Internal Medicine | DX: I48.0 Paroxysmal atrial fibrillation (principal); Z79.01 Long term (current) use of anticoagulants; Z51.81 Encounter for therapeutic drug level monitoring | CPT/HCPCS: 85610; 99211 ==

== ENCOUNTER 2023-08-21 09:06 | Outpatient (AMB) | payer MEDICARE, BC, SELFPAY ==
--- NOTE | 2023-08-21 09:47 | MHC.PC.OV ---
Vital Signs 08/21/23 09:59 Height 5 ft 3 in Weight 174 lb BMI 30.8 BP 117/64 Blood Pressure Location Lt brachial Position Sitting Pulse 80 Pulse Source Pulse Oximeter Pulse Oximetry (%) 96 Oxygen Delivery Method Room Air Intake Visit Reasons: medication follow up Intake Note: Pt here for medication follow up. 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 Pt reports shaky sensations ? Afib 1-2 week lasting a few minutes, not related to physical activity. Patient denies chest pain shortness on breath diaphoresis nausea vomiting associated with the symptoms. She follows up with Urology for bilateral nonobstructing kidney stones. [facility] Medical History (Updated 08/21/23 @ 10:52 by Kiesha Macedo MD) Chronic atrial fibrillation Chronic anticoagulation Obesity CKD (chronic kidney disease) stage 3, GFR 30-59 ml/min Nephrolithiasis, uric acid Hyperlipidemia HTN (hypertension) A-fib GORDON (obstructive sleep apnea) COPD (chronic obstructive pulmonary disease) Pulmonary HTN Severe mitral regurgitation Thiamine deficiency Osteoporosis Surgical History Hx of hernia repair History of open reduction and internal fixation (ORIF) procedure Family History Father No problems noted. Mother No problems noted. Maternal Aunt Breast cancer Social History Household Members: Spouse Housing: House Do you presently have visiting nurse or other home services: No Alcohol intake: never Patient Tobacco Use Status: Former Tobacco user Tobacco use type: Cigarette e-Cigarette/Vaping Use: Never Used Second Hand Smoke Exposure: No service: No Current occupational status: retired Cognitive needs: No Hearing needs: No Vision needs: No Questionnaire PHQ-9 Over the last 2 weeks, how often have you been bothered by any of the following problems? 1. Little interest or pleasure in doing things: not at all 2. Feeling down, depressed, or hopeless: not at all 3. Trouble falling or staying asleep, or sleeping too much: several days 4. Feeling tired or having little energy: not at all 5. Poor appetite or overeating: not at all 6. Feeling bad about yourself - or that you are a failure or have let yourself or your family down: not at all 7. Trouble concentrating on things, such as reading the newspaper or watching television: not at all 8. Moving or speaking so slowly that other people could have noticed. Or the opposite - being so fidgety or restless that you have been moving around a lot more than usual: not at all 9. Thoughts that you would be better off or of hurting yourself in some way: not at all Total score: 1 Depression Screening Interpretation: Negative Depression Screening Done: Yes Source: Developed by Drs. Tae Valentine, Becca Olivia, Silviano Stallings and colleagues, with an educational lauryn from [employer]. Thrive Questionnaire Date Thrive assessed: 08/21/23 What is your living situation today?: I have a steady place to live Within the past 12 months, did the food you bought not last and you didn't have the money to get more?: Never true Within the past 12 months, did you worry whether your food would run out before you got money to buy more?: Never true Do you have trouble paying for medicines?: No Do you have trouble getting transportation to medical appointments?: No Do you have trouble paying your heating and electricity bill?: No Do you have trouble taking care of your child, family member or friend?: No Do you have trouble with day-to-day activities such as bathing, preparing meals, shopping, managing finances, etc.?: No Are you currently unemployed and looking for a job?: No Are you interested in more education?: No Please select the resources that you would like help with: None THRIVE Score: 0 ADRIAN-7 AMB Questionnaire ADRIAN-7 Date ADRIAN - 7 assessed: 07/16/22 Feeling nervous, anxious, or on edge: 1 = Several days Not being able to stop or control worryin = Several days Worrying too much about different things: 0 = Not at all Trouble relaxin = Not at all Being so restless that it is hard to sit still: 0 = Not at all Becoming easily annoyed or irritable: 0 = Not at all Feeling afraid as if something awful might happen: 0 = Not at all Total ADRIAN-7 score (0-4 normal; 5-9 mild; 10-14 moderate; 15-21 severe): 2 Source: Developed by Drs. Tae Valentine, Becca Olivia, Silviano Stallings and colleagues, with an educational lauryn from [employer]. Review of Systems Const All systems reviewed & are unremarkable except as noted in HPI and below Reports no additional complaints Eyes Reports no additional complaints ENT Reports no additional complaints Card Reports no additional complaints Resp Reports no additional complaints GI Reports no additional complaints Reports no additional complaints Physical exam (Primary Care) Vital Signs: Last Vital Signs Pulse 80 08/21/23 09:59 BP 117/64 08/21/23 09:59 Pulse Ox 96 08/21/23 09:59 Oxygen Delivery Method Room Air 08/21/23 09:59 BMI result Body Mass Index 30.8 Tobacco/Smoking Status: Tobacco use Status Tobacco use date assessed 08/21/23 08/21/23 10:04 Patient Tobacco Use Status Former Tobacco user 08/21/23 09:48 Tobacco use type Cigarette 08/21/23 09:48 e-Cigarette/Vaping Use Never Used 08/21/23 09:48 PHQ-9: PHQ-9 Score PHQ-9: Total score 1 08/21/23 10:10 Depression Screening Interpretation: Negative Thrive Assessment: Date of Thrive Assessment Date Thrive assessed 08/21/23 08/21/23 10:04 Const General: no acute distress HENMT Head: Yes normal to inspection Ears: hearing grossly normal bilaterally Eyes General: appearance normal, both eyes and all related structures Neck Neck: Yes supple Resp Effort & Inspection: normal respiratory effort Auscultation: clear to auscultation bilaterally Cardio Rhythm: abnormal rhythm irregularly irregular Heart sounds: S1 normal heart sound present and S2 normal heart sound present GI Inspection: Yes normal to inspection Palpation (GI): Soft to palpation Percussion: Yes normal to percussion Auscultation: normal bowel sounds Assessment and Plan Assessment & Plan (1) CHF (congestive heart failure): Comment: [place] [facility] [place]okines[place], ejection fraction 40%, severe decreased function of right ventricle, severe biatrial enlargement mild pulmonary hypertension Code(s): I50.9 - Heart failure, unspecified Plan: Continue current medications follow-up with cardiology every 6 months. Patient had echocardiogram last year at [facility] and will obtain the report (2) CKD (chronic kidney disease) stage 3, GFR 30-59 ml/min: Code(s): N18.30 - Chronic kidney disease, stage 3 unspecified Plan: Monitor renal function and avoid nephrotoxins (3) A-fib: Comment: Follows up with Cardiology at [facility], on Warfarin for s/p MVR Code(s): I48.91 - Unspecified atrial fibrillation Plan: Continue anticoagulation and atenolol for rate control, obtain culture to evaluate episode of shakiness related to AFib (4) Bilateral kidney stones: Comment: Follow-up with [place] [facility] Code(s): N20.0 - Calculus of kidney Plan: Follow-up with urology (5) COPD (chronic obstructive pulmonary disease): Comment: Follow-up with [facility] pulmonology Code(s): J44.9 - Chronic obstructive pulmonary disease, unspecified Plan: Continue inhaler p.r.n. follow-up with pulmonology at [facility] Orders: Orders Comprehensive Met. Panel Today I48.91 - Unspecified atrial fibrillation, I50.9 - Heart failure, unspecified, N18.30 - Chronic kidney disease, stage 3 unspecified, N18.9 - Chronic kidney disease, unspecified ECG 5 day holter monitor Today Coding Level of Care Code Est Pt Level 4 (68881) Diagnoses CHF (congestive heart failure) I50.9 CKD (chronic kidney disease) stage 3, GFR 30-59 ml/min N18.30 A-fib I48.91 Bilateral kidney stones N20.0 COPD (chronic obstructive pulmonary disease) J44.9
[2023-08-21 09:59] VITALS: BP 117/64; PULSE 80; O2SAT 96; BMI 30.8
== END 2023-08-21 10:52 | disposition home or self-care (01) ==
PROVIDERS: PCP Internal Medicine; Visit Provider Internal Medicine
DX: I50.9 Heart failure, unspecified (principal); N18.30 Chronic kidney disease, stage 3 unspecified; I48.91 Unspecified atrial fibrillation; J44.9 Chronic obstructive pulmonary disease, unspecified; N20.0 Calculus of kidney
CPT/HCPCS: 99214

== ENCOUNTER 2023-08-21 10:31 | Outpatient (REF) | payer MEDICARE, BC, SELFPAY ==
[2023-08-21 13:53] LABS: Alanine Aminotransferase 13 U/L (0-31); Albumin Level 3.8 g/dL (3.5-5.0); Alkaline Phosphatase 101 U/L (39-117); Anion Gap 15 (12-20); Aspartate Amino Transferase 28 U/L (5-31); Bilirubin Total 1.6 mg/dL (0.0-1.0); Blood Urea Nitrogen 15 mg/dL (9-16); Carbon Dioxide 26 mmol/L (22-29); Chloride 104 mmol/L (96-108); Estimated Glomerular Filt Rate > 60; Glucose Random 101 mg/dL (60-115); Potassium 3.9 mmol/L (3.3-5.1); Sodium 141 mmol/L (135-145)
== END 2023-08-21 10:32 | disposition home or self-care (01) ==
LOC: HO.HMGCLDS 10:31
PROVIDERS: PCP Internal Medicine; Visit Provider Internal Medicine
DX: I11.0 Hypertensive heart disease with heart failure (principal); I50.9 Heart failure, unspecified; N18.30 Chronic kidney disease, stage 3 unspecified; I48.91 Unspecified atrial fibrillation
CPT/HCPCS: 36415; 80053

== ENCOUNTER → 2023-08-26 07:54 | Outpatient (REF) | payer MEDICARE, BC, SELFPAY ==
--- NOTE | 2023-08-26 08:22 | HM_ITS ---
* Total monitoring time about 6 days. * Underlying rhythm is atrial fibrillation with an average rate of 77/Min. * Frequent ventricular ectopy with a burden of 7%. Multiple morphologies. Includes isolated beats, couplets, triplets. Short runs noted. Longest 5 beats. * No significant pauses or AV blocks. * Patient marker used 2 times in association with atrial fibrillation/ventricular couplet/triplet. * Shortness of breath in patient diary correlates with atrial fibrillation with controlled rate/PVCs. MTDD
== END ==
LOC: HO.CARD 07:54
PROVIDERS: PCP Internal Medicine; Visit Provider Internal Medicine
DX: I48.91 Unspecified atrial fibrillation (principal); Z51.81 Encounter for therapeutic drug level monitoring; Z79.01 Long term (current) use of anticoagulants
CPT/HCPCS: 85610; 93242; 99211

== ENCOUNTER 2023-08-26 08:04 | Outpatient (AMB) | payer MEDICARE, BC, SELFPAY ==
--- NOTE | 2023-08-26 08:11 | MHC.OFFVISCO ---
Intake Intake Visit Reasons: Anticoagulation Allergies acetaminophen [From Vicodin] Allergy (Intermediate, Verified 08/26/23 08:05) per patient hydrocodone [From Vicodin] Allergy (Mild, Verified 08/26/23 08:05) CHEST PAIN Medication List - Last Reconciled 08/26/23 by Yolis Mendez, RN albuterol sulfate 90 mcg/actuation 2 puffs inhalation Q4-6H PRN amlodipine 5 mg PO DAILY ascorbate calcium (vitamin C) 500 mg PO DAILY aspirin (Noel Low Dose Aspirin) 81 mg PO DAILY atenolol 50 mg PO DAILY atorvastatin 80 mg PO DAILY furosemide (Lasix) 40 mg PO DAILY eyaanescerez-Ae-xyrx-minerals tabs PO omeprazole 20 mg PO BID potassium chloride ER 30 mEq (1.5 x 20 mEq) PO DAILY thiamine HCl (vitamin B1) 100 mg PO DAILY warfarin 2.5 mg See Protocol PO 6XW zinc gluconate 50 mg PO DAILY Nursing Note INR: 2.8 in therapeutic range Medications and supplements reviewed No changes in health, diet, medications, or supplements, Denies any signs and symptoms of bleeding or bruising or clotting. 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
[2023-08-26 08:12] LABS: Prothrombin Time Whole Bld POC 34.1 sec (11.1-13.5); ~PT, ~INR - Anti Coag Clinic 2.8 (0.9-1.1)
== END 2023-08-26 08:22 | disposition home or self-care (01) ==
LOC: HO.ACS 08:04
PROVIDERS: PCP Internal Medicine; Visit Provider Internal Medicine
DX: Z79.01 Long term (current) use of anticoagulants (principal)

== ENCOUNTER → 2023-08-26 08:22 | Outpatient (BNV) | payer MEDICARE, BC, SELFPAY | PROVIDERS: PCP Internal Medicine; Visit Provider Internal Medicine | DX: I48.91 Unspecified atrial fibrillation (principal) | CPT/HCPCS: 93244 ==

== ENCOUNTER 2023-09-23 08:02 | Outpatient (AMB) | payer MEDICARE, BC, SELFPAY ==
[2023-09-23 08:09] LABS: Prothrombin Time Whole Bld POC 23.2 sec (11.1-13.5); ~PT, ~INR - Anti Coag Clinic 1.9 (0.9-1.1)
--- NOTE | 2023-09-23 08:16 | MHC.OFFVISCO ---
Intake Intake Visit Reasons: Anticoagulation Allergies acetaminophen [From Vicodin] Allergy (Intermediate, Verified 08/26/23 08:05) per patient hydrocodone [From Vicodin] Allergy (Mild, Verified 08/26/23 08:05) CHEST PAIN Nursing Note INR: 1.9 ALMOST in therapeutic range Medications and supplements reviewed- NO CHANGES, may have eaten more chocolate than usual over [facility], No changes in health, diet, medications, or supplements, Denies any signs and symptoms of bleeding or bruising or clotting. Bleeding, bruising, clotting discussed Nutritional guidance given - review food list weekly, avoid greens x3 days - eat orange and reds, milk chocoalte lowers INR - dark chocolate can raise the INR in large amts Dose: keep same for now 5mg x 1 day/ 2.5mg x 6 days F/U INR: 2 weeks Patient verbalizes understanding of instructions given Anti-Coag Initial Assessment Social Hx Patient Tobacco Use Status: Former Tobacco user Tobacco use type: Cigarette alcohol intake: never Coding Level of Care Code Est Patient Level 1 Diagnoses Current use of anticoagulant therapy Z79.01 Results AMB INR Fingerstick AMB INR Fingerstick 1.9 Last Edit by Yolis Mendez RN on 09/23/23 08:12 MANUAL ENTRY Assessment & Plan Assessment & Plan (1) Current use of anticoagulant therapy: Code(s): 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
== END 2023-09-23 08:20 | disposition home or self-care (01) ==
LOC: HO.ACS 08:02
PROVIDERS: PCP Internal Medicine; Visit Provider Internal Medicine
DX: Z79.01 Long term (current) use of anticoagulants (principal)

== ENCOUNTER → 2023-09-23 08:02 | Outpatient (BNVA) | payer MEDICARE, BC, SELFPAY | PROVIDERS: PCP Internal Medicine; Visit Provider Internal Medicine | DX: I48.0 Paroxysmal atrial fibrillation (principal); Z51.81 Encounter for therapeutic drug level monitoring; Z79.01 Long term (current) use of anticoagulants | CPT/HCPCS: 85610; 99211 ==

== ENCOUNTER 2023-10-07 08:10 | Outpatient (AMB) | payer MEDICARE, BC, SELFPAY ==
--- NOTE | 2023-10-07 08:23 | MHC.OFFVISCO ---
Intake Intake Visit Reasons: Anticoagulation Allergies acetaminophen [From Vicodin] Allergy (Intermediate, Verified 10/07/23 08:19) per patient hydrocodone [From Vicodin] Allergy (Mild, Verified 10/07/23 08:19) CHEST PAIN Medication List - Last Reconciled 10/07/23 by Ninoska Nolen, RN albuterol sulfate 90 mcg/actuation 2 puffs inhalation Q4-6H PRN amlodipine 5 mg PO DAILY ascorbate calcium (vitamin C) 500 mg PO DAILY aspirin (Noel Low Dose Aspirin) 81 mg PO DAILY atenolol 50 mg PO DAILY atorvastatin 80 mg PO DAILY furosemide (Lasix) 40 mg PO DAILY bmvkurnffyko-Jj-lpcv-minerals tabs PO omeprazole 20 mg PO BID potassium chloride ER 30 mEq (1.5 x 20 mEq) PO DAILY thiamine HCl (vitamin B1) 100 mg PO DAILY warfarin 2.5 mg See Protocol PO 6XW zinc gluconate 50 mg PO DAILY Nursing Note INR: 2.5- in therapeutic range of 2-3 Medications and supplements reviewed- no changes No changes in health, diet, medications, or supplements, Denies any signs and symptoms of bleeding or bruising or clotting. Bleeding, bruising, clotting discussed Nutritional guidance given Dose: 2.5mg x 6, 5mg x 1 F/U INR: 4 weeks Patient verbalizes understanding of instructions given Anti-Coag Initial Assessment Social Hx Patient Tobacco Use Status: Former Tobacco user Tobacco use type: Cigarette alcohol intake: never Coding Level of Care Code Est Patient Level 1 Diagnoses Current use of anticoagulant therapy Z79.01 Assessment & Plan Assessment & Plan (1) Current use of anticoagulant therapy: Code(s): Z79.01 - [facility] (current) use of 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
[2023-10-07 08:24] LABS: Prothrombin Time Whole Bld POC 29.7 sec (11.1-13.5); ~PT, ~INR - Anti Coag Clinic 2.5 (0.9-1.1)
== END 2023-10-07 08:30 | disposition home or self-care (01) ==
LOC: HO.ACS 08:10
PROVIDERS: PCP Internal Medicine; Visit Provider Internal Medicine
DX: Z79.01 Long term (current) use of anticoagulants (principal)

== ENCOUNTER → 2023-10-07 08:10 | Outpatient (BNVA) | payer MEDICARE, BC, SELFPAY | PROVIDERS: PCP Internal Medicine; Visit Provider Internal Medicine | DX: I48.0 Paroxysmal atrial fibrillation (principal); Z51.81 Encounter for therapeutic drug level monitoring; Z79.01 Long term (current) use of anticoagulants | CPT/HCPCS: 85610; 99211 ==

== ENCOUNTER 2023-11-04 08:01 | Outpatient (AMB) | payer MEDICARE, BC, SELFPAY ==
[2023-11-04 08:10] LABS: Prothrombin Time Whole Bld POC 27.4 sec (11.1-13.5); ~PT, ~INR - Anti Coag Clinic 2.3 (0.9-1.1)
--- NOTE | 2023-11-04 08:16 | MHC.OFFVISCO ---
Intake Intake Visit Reasons: Anticoagulation Allergies acetaminophen [From Vicodin] Allergy (Intermediate, Verified 11/04/23 08:03) per patient hydrocodone [From Vicodin] Allergy (Mild, Verified 11/04/23 08:03) CHEST PAIN Medication List - Last Reconciled 11/04/23 by Yolis Mendez, RN albuterol sulfate 90 mcg/actuation 2 puffs inhalation Q4-6H PRN amlodipine 5 mg PO DAILY ascorbate calcium (vitamin C) 500 mg PO DAILY aspirin (Noel Low Dose Aspirin) 81 mg PO DAILY atenolol 50 mg PO DAILY atorvastatin 80 mg PO DAILY furosemide (Lasix) 40 mg PO DAILY yknitfjnrmdv-Tj-zepr-minerals tabs PO omeprazole 20 mg PO BID potassium chloride ER 30 mEq (1.5 x 20 mEq) PO DAILY thiamine HCl (vitamin B1) 100 mg PO DAILY warfarin 2.5 mg See Protocol PO 6XW zinc gluconate 50 mg PO DAILY Nursing Note INR: 2.3 in therapeutic range Medications and supplements reviewed- PRINTED MED LIST GIVEN TO COMPARE TO MEDS AT HOME AND TO BRING BACK TO [facility] No changes in health, diet, medications, or supplements, Denies any signs and symptoms of bleeding or bruising or clotting. 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
== END 2023-11-04 08:19 | disposition home or self-care (01) ==
LOC: HO.ACS 08:01
PROVIDERS: PCP Internal Medicine; Visit Provider Internal Medicine
DX: Z79.01 Long term (current) use of anticoagulants (principal)

== ENCOUNTER → 2023-11-04 08:01 | Outpatient (BNVA) | payer MEDICARE, BC, SELFPAY | PROVIDERS: PCP Internal Medicine; Visit Provider Internal Medicine | DX: I48.0 Paroxysmal atrial fibrillation (principal); Z51.81 Encounter for therapeutic drug level monitoring; Z79.01 Long term (current) use of anticoagulants | CPT/HCPCS: 85610; 99211 ==

== ENCOUNTER 2023-11-25 18:50 | Inpatient (IN) | payer MEDICARE, BC, SELFPAY ==
--- NOTE | ~2023-11-25 | FL_ITS ---
EXAMINATION: XR FLUOROSCOPY WITH IMAGES CLINICAL INFORMATION: Right cystoscopy, retrograde urography and stent placement. COMPARISON: CT abdomen and pelvis dated 11/25/2023. TECHNIQUE: Fluoroscopy Supervised By: Dr. Eng. Fluoroscopy Time: 23.3 seconds. Cumulative Dose: 8.18 mGy. Images: 9. FINDINGS: The submitted images show contrast opacification of the right internal and external renal collecting structures. There is placement of a double pigtail right ureteric stent. FL/FL guidance in OR IMPRESSION: Intraoperative fluoroscopic guidance is provided during cystoscopy, retrograde urography and right ureteric stent placement. Please see the patient's Operative Report for full procedural details.
--- NOTE | ~2023-11-25 | CT_ITS ---
EXAMINATION: CT ABDOMEN AND PELVIS WITHOUT CONTRAST CLINICAL INFORMATION: Abdominal pain radiating to right flank history of stones COMPARISON: 7 renal from 03/04/2023, CT abdomen from 09/12/2022 TECHNIQUE: Multidetector volumetric imaging was performed from the superior aspect of the liver through the pubic symphysis. Sagittal and coronal reformatted images were obtained on the technologist's workstation. This CT examination was performed using dose optimization techniques as appropriate, variously including the following: *Automated exposure control *Adjustment of mA and/or kV according to patient size (this includes techniques or standardized protocols for targeted exams where dose is matched to indication/reason for exam; i.e. extremities or head) *Use of iterative reconstruction technique DLP: 791 mGy-cm FINDINGS: LUNG BASES: Trace bilateral pleural effusions, right greater than left. Pleural calcifications bilaterally along the posterior aspect of the bilateral lower lobes. Bronchial thickening. Partially visualized pacer leads. Valvular calcifications. Respiratory motion artifact limits evaluation. LIVER, GALLBLADDER, AND BILIARY TREE: The liver is normal in size, shape, and attenuation. No focal hepatic lesion or biliary ductal dilatation is present. The gallbladder is surgically absent. PANCREAS: Unremarkable. SPLEEN: Multiple calcified granulomas of the spleen. 1.1 cm splenule. ADRENAL GLANDS: Unremarkable. KIDNEYS AND URETERS: Mild right-sided hydroureteronephrosis secondary to a 1.2 cm calculus along the right proximal ureter. Additional right renal calculi noted measuring up to 3 mm. No left-sided nephrolithiasis or hydronephrosis. BLADDER: Unremarkable. GASTROINTESTINAL TRACT: Small hiatal hernia. Colonic diverticulosis without acute diverticulitis. The small and large bowel are unremarkable. The appendix is unremarkable. ABDOMINAL WALL: Redemonstrated laxity of the abdominal wall without discrete hernia. LYMPH NODES: No enlarged lymph nodes per size criteria. VASCULAR: Abdominal aorta is nonaneurysmal. Atherosclerotic calcifications of the abdominal aorta and its branches. PELVIC VISCERA: Anteverted uterus. OSSEOUS STRUCTURES: Osteopenia. Multilevel degenerative changes of the thoracolumbar lumbosacral spine. Right hip hardware, grossly intact. Partially visualized retrograde left femoral intramedullary nail, grossly intact. CT/CT abdomen pelvis wo IV con IMPRESSION: 1. Mild right-sided hydroureteronephrosis secondary to a 1.2 cm calculus along the right proximal ureter. Additional right renal calculi noted measuring up to 3 mm. 2. Trace bilateral pleural effusions, right greater than left. Pleural calcifications bilaterally along the posterior aspect of the bilateral lower lobes. 3. Status post cholecystectomy. 4. Multiple calcified granulomas of the spleen. 5. Small hiatal hernia. 6. Colonic diverticulosis without acute diverticulitis. 7. Osteopenia.
[2023-11-25 18:57] VITALS: BP 136/71; PULSE 101; RESP 18; TEMP 36.3; O2SAT 93; BMI 30.1
--- NOTE | 2023-11-25 18:57 | ED_ITS ---
HPI - General Adult General Chief complaint: General Medical Stated complaint: not feeling well. 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 Pain was initially mild and intermittent but has since worsened, now is constant and radiates to right mid abdomen with associated nausea and vomiting. She has seen urology for kidney stones before, has known bilateral stones from renal ultrasound in 03/25. Denies urinary symptoms or seeing blood in her urine. Denies fevers or chills, shortness of breath, chest pain. MD complaint: Right flank pain Onset (ago): day(s) (1) Location: abdomen (right flank) Radiation: non-radiation and abdomen Quality: sharp Pain Consistency: constant Relieving factors: none Exacerbating factors: none Associated symptoms: loss of appetite and nausea/vomiting Treatments prior to arrival: none Related Data Home Medications ?Medication ?Instructions ?Recorded ?Confirmed atenolol 50 mg tablet 50 mg PO DAILY 08/24/22 11/04/23 ascorbate calcium (vitamin C) 500 500 mg PO DAILY 01/04/23 11/04/23 mg tablet aspirin 81 mg tablet,delayed 81 mg PO DAILY 01/04/23 11/04/23 release (Noel Low Dose Aspirin) qrbkikeblgni-Em-exse-minerals tab PO 01/04/23 11/04/23 zinc gluconate 50 mg tablet 50 mg PO DAILY 01/04/23 11/04/23 Previous Rx's ?Medication ?Instructions ?Recorded atorvastatin 80 mg tablet 80 mg PO DAILY #90 tabs 03/05/23 amlodipine 5 mg tablet 5 mg PO DAILY #90 tabs 05/23/23 warfarin 2.5 mg tablet 2.5 mg PO 6XW #90 tabs 08/11/23 albuterol sulfate 90 mcg/actuation 2 puff inhalation Q4-6H PRN 09/10/23 aerosol inhaler shortness of breath or wheezing #8.5 grams furosemide 40 mg tablet (Lasix) 40 mg PO DAILY #90 tabs 05/22/24 omeprazole 20 mg capsule,delayed 20 mg PO BID #180 caps 10/23/23 release potassium chloride 20 mEq 30 meq (1.5 x 20 mEq) PO DAILY 10/31/23 tablet,extended release(part/cryst) #135 tabs Allergies Allergy/AdvReac Type Severity Reaction Status Date / Time acetaminophen [From Vicodin] Allergy Intermediate per patient Verified 11/25/23 19:00 hydrocodone [From Vicodin] Allergy Mild CHEST PAIN Verified 11/25/23 19:00 Review of Systems 2 Constitutional: Constitutional: Reports no additional constitutional complaints, Denies chills, Denies fever(s) and Denies night sweats Eyes: Eyes: Reports no additional eye complaints, Denies blurry vision, Denies change in vision, Denies diplopia, Denies eye discharge, Denies loss of vision and Denies eye pain ENT: Denies dizziness Cardiovascular: Cardiovascular: Reports no additional cardiovascular complaints, Denies chest pain, Denies lightheadedness, Denies Loss of Consciousness and Denies dyspnea Respiratory: Respiratory: Reports no additional respiratory complaints and Denies dyspnea Gastrointestinal: Gastrointestinal: Reports no additional gastrointestinal complaints, Reports abdominal pain (right flank radiating to right mid abdomen), Denies melena, Denies hematochezia, Denies change in bowel habits, Denies change in stool character, Denies diarrhea, Reports nausea, Reports vomiting and Denies hematemesis Genitourinary: Genitourinary: Denies hematuria, Denies urinary frequency, Denies dysuria, Denies urinary incontinence, Denies urinary hesitancy and Denies urinary urgency Musculoskeletal: Musculoskeletal: Reports no additional musculoskeletal complaints, Denies numbness and Denies tingling Neurologic: Denies dizziness, Denies loss of vision, Denies numbness and Denies tingling Psychiatric: Psychiatric: Reports no additional psychiatric complaints Endocrine: Endocrine: Reports no additional endocrine complaints Hematologic/Lymphatic: Hematologic/Lymphatic: Reports no additional hematologic/lymphatic complaints Allergic/Immunologic: Allergic/Immunologic: Reports no additional allergic/immunologic complaints PMFSH Past Medical History Attestation statement: The following information was validated with the patient. (all information validated with the patient's daughter) Source: old records reviewed, obtained from family (patient's daughter provided additional history and confirmed the history provided by the patient) and nursing notes reviewed Medical History Chronic atrial fibrillation Chronic anticoagulation Obesity CKD (chronic kidney disease) stage 3, GFR 30-59 ml/min Nephrolithiasis, uric acid Hyperlipidemia HTN (hypertension) A-fib GORDON (obstructive sleep apnea) COPD (chronic obstructive pulmonary disease) Pulmonary HTN Severe mitral regurgitation Thiamine deficiency Osteoporosis Surgical History Hx of hernia repair History of open reduction and internal fixation (ORIF) procedure Family History Family History Father No problems noted. Mother No problems noted. Maternal Aunt Breast cancer Social History Social History Household Members: Spouse Housing: House Do you presently have visiting nurse or other home services: No Alcohol intake: never Patient Tobacco Use Status: Former Tobacco user Tobacco use type: Cigarette e-Cigarette/Vaping Use: Never Used Second Hand Smoke Exposure: No Advance Directives: No Advance Directives Information Provided: No service: No Current occupational status: retired Cognitive needs: No Hearing needs: No Vision needs: No Physical Exam ED Vital Signs: Vital Signs - 24 hr 11/25/23 18:57 Temperature 97.4 F Pulse Rate 101 H Respiratory Rate 18 Blood Pressure 136/71 Pulse Oximetry 93 Oxygen Delivery Method Room Air BMI result Body Mass Index 30.1 Const General: cooperative, no acute distress, alert and awake Nutritional Appearance: well nourished Orientation/consciousness: patient oriented x3 Limitations: no limitations [facility] Head: Yes normal to inspection and Yes atraumatic Ears: hearing grossly normal bilaterally and external ears normal General nose exam: Normal external nose present, no nasal discharge noted and no epistaxis Face and sinus: Yes normal facial exam, No abrasion and No laceration Mouth: Normal oral and palatal mucosa present, no drooling and no muffled voice Eyes General: appearance normal, both eyes and all related structures Periorbital: periorbital findings normal Eyelids: Yes eyelids normal Conjunctivae: conjunctivae normal Pupils: Equal, round and reactive pupils present EOM: EOMs intact bilaterally Neck Neck: Yes normal visual inspection, Yes full ROM and Yes no lymphadenopathy Chest Chest palpation & inspection: normal inspection of the chest Resp Effort & Inspection: normal respiratory effort and able to speak in complete sentences Auscultation: clear to auscultation bilaterally Cardio Rate: Other (irregular rate, known chronic afib) Rhythm: abnormal rhythm irregularly irregular Heart sounds: no click, no gallops, no murmurs and no rubs GI Inspection: Yes normal to inspection Palpation (GI): Soft to palpation and Tenderness to palpation present (GI) in the RLQ, in the RUQ and other (right flank) Auscultation: normal bowel sounds Neuro General: patient oriented x3 and moves all extremities Cranial nerves: Yes Equal, round and reactive pupils present Cognition (Neuro): normal cognition Motor exam (neuro): 5/5 motor strength present throughout Sensory Exam: Normal double simultaneous stimulation for sensation Coordination: [id number]-wv-ednv test normal Extrem General: Yes normal to inspection, Yes full ROM and Yes capillary refill normal Psych Appearance: grossly normal Mental Status: mental status grossly normal Affect: normal affect Attitude: cooperative Thought process: Normal thought process present Thought content: Normal thought content present Insight: Good insight present (Psych) Course Course Course Narrative: This is a Rapid Medical Exam performed in triage by Francisca Green PA-C. Full HPI, ROS and PE to be performed by primary ED provider. 83 year-old F w/ PMHx CHF, renal stone, CKD, HTN, AFib presenting to the ED c/o my kidneys are starting to shut down, w/right flank pain & Nausea. denies urinary sx or CP PE: Abdomen is soft with mild right-sided tenderness, no rebound or guarding Plan: labs, UA, CT AP ordered Medications Administered Discontinued Medications Generic Name Dose Route Start Last Admin Trade Name Sanjeev PRN Reason Stop Dose Admin Morphine Sulfate 4 mg 11/25/23 22:56 11/25/23 23:37 Morphine Sulfate 4 Mg/Ml Cartridge IVPUSH 11/25/23 22:57 4 mg ONCE ONE Administration Protocol Ondansetron HCl 4 mg 11/25/23 22:57 11/25/23 23:37 Ondansetron Hcl 4 Mg/2 Ml Vial IVPUSH 11/25/23 22:58 4 mg ONCE ONE Administration Medical Decision Making Medical Decision Making MDM Narrative: Patient is an 83 year old assigned female at with a history of chronic afib on warfarin, prosthetic mitral heart valve, 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 Patient's physical exam was as noted in the physical exam portion of this note. Patient's blood work was unremarkable. Patient's urine showed no acute process. Patient's CT abdomen/pelvis showed mild right-sided hydroureternephrosis secondary to a 1.2cm calculus along the right proximal ureter. I spoke to the urologist applications scientist, Dr. Bolanos, who recommended medical admission and stated he will put a stent in later today. I spoke to the hospitalist who agreed to admission. I explained my physical exam findings as well as all test results to the patient and the patient's daughter. I answered all questions asked by the patient and the patient's daughter. Patient received IV morphine which she stated helped her pain significantly. Patient and the patient's daughter verbalized agreement and understanding with this treatment plan and admission. Differential Diagnosis Differential Diagnoses: The differential diagnosis associated with the presentation includes Nephrolithiasis Pyelonephritis Muscle strain Admission/Observation Consideration of admission/observation: Escalation of care including admission/observation considered Patient admitted. Consult Healthcare Provider Management of the patient was discussed with: Hospitalist (spoke to the hospitalist as noted in the MDM Rationale portion of this note.) and Human Resources Benefits Administrator (spoke to the urologist as noted in the MDM Rationale portion of this note.) Lab Data [facility] Lab Attestation statement: I reviewed the patient's lab results. My interpretation of these results are in the MDM Rationale portion of this note. 11/25/23 23:38 11/25/23 23:38 Labs: Lab Results 11/25/23 11/25/23 Range/Units 21:54 23:38 WBC 6.4 (4.8-10.8) X10*3/uL RBC 4.66 (4.20-5.50) X10*6/uL Hgb 13.6 (12.0-16.0) g/dl Hct 40.8 (37.0-47.0) % MCV 87.6 (80.0-98.0) fL MCH 29.2 (27.0-33.0) pg MCHC 33.3 (31.0-35.0) g/dl RDW 14.9 (11.0-16.0) % Plt Count 126 L D (160-400) X10*3/uL MPV 11.1 (9.4-12.3) fL Immature Gran % (Auto) 0.2 (0.0-0.4) % Neut % (Auto) 88.9 H (45-73) % Lymph % (Auto) 8.3 L (20-40) % [place] % (Auto) 2.2 (2-11) % Eos % (Auto) 0.2 (0-4) % Baso % (Auto) 0.2 (0-2) % Lymph # (Auto) 0.5 L (1.2-4.9) X10*3/uL [place] # (Auto) 0.1 (0.1-1.2) X10*3/uL Eos # (Auto) 0.0 (0.0-0.4) X10*3/uL Baso # (Auto) 0.0 (0.0-0.2) X10*3/uL Abs Immat Gran (auto) 0.01 (0.00-0.03) X10*3/uL Absolute Neuts (auto) 5.7 (2.0-8.3) x10*3/uL Absolute Nucleated RBC 0.000 (0.0-0.012) X10*3/uL Nucleated RBC % (auto) 0.0 (0.0-0.2) /100WBC PT 25.5 H (11.1-13.3) SEC INR 2.1 H (0.9-1.1) APTT 24.9 L (26.0-36.8) SEC Sodium 141 (135-145) mmol/L Potassium 4.9 D (3.3-5.1) mmol/L Chloride 105 (96-108) mmol/L Carbon Dioxide 24 (22-29) mmol/L Anion Gap 17 (12-20) BUN 20 H (9-16) mg/dL Creatinine 0.95 (0.5-1.4) mg/dL Estim Creat Clear Calc 45.6 Estimated GFR 56 Random Glucose 163 H (60-115) mg/dL Lactic Acid 1.2 (0.5-2.0) mmol/L Calcium 10.3 H (8.4-10.2) mg/dL Magnesium 1.8 (1.6-2.6) mg/dL Total Bilirubin 1.1 H (0.0-1.0) mg/dL Direct Bilirubin 0.4 (0.0-0.5) mg/dL AST 35 H (5-31) U/L ALT 16 (0-31) U/L Alkaline Phosphatase 97 (39-117) U/L Total Protein 7.2 (6.5-8.0) g/dL Albumin 4.0 (3.5-5.0) g/dL Lipase 34 (8-78) U/L Urine Color Yellow Urine Appearance Clear Urine pH 7.0 (5.0-9.0) Ur Specific [place] 1.020 (1.005-1.025) Urine Protein 30 (1+) H (Neg-Trace) mg/dL Urine Glucose (UA) Negative (Negative) mg/dL Urine Ketones 15 (Negative) mg/dL Urine Blood Moderate (2+) H (Negative) Urine Nitrite Negative (Negative) Ur Leukocyte Esterase Trace H (Negative) Urine RBC >20 H (0-2) /HPF Urine WBC 0-5 (0-5) /HPF Ur Squamous Epith Cells 0-2 (0-2) /HPF Urine Bacteria None Seen (None Seen) Hyaline Casts 0-2 (0-2) /LPF Independent Interpretation I performed an independent interpretation of an: CT Scan Interpretation: My interpretation is in agreement with the radiologist's impression of this imaging study. - EXAMINATION: CT ABDOMEN AND PELVIS WITHOUT CONTRAST CLINICAL INFORMATION: Abdominal pain radiating to right flank history of stones COMPARISON: 7 renal from 03/04/2023, CT abdomen from 09/12/2022 TECHNIQUE: Multidetector volumetric imaging was performed from the superior aspect of the liver through the pubic symphysis. Sagittal and coronal reformatted images were obtained on the technologist's workstation. This CT examination was performed using dose optimization techniques as appropriate, variously including the following: *Automated exposure control *Adjustment of mA and/or kV according to patient size (this includes techniques or standardized protocols for targeted exams where dose is matched to indication/reason for exam; i.e. extremities or head) *Use of iterative reconstruction technique DLP: 791 mGy-cm FINDINGS: LUNG BASES: Trace bilateral pleural effusions, right greater than left. Pleural calcifications bilaterally along the posterior aspect of the bilateral lower lobes. Bronchial thickening. Partially visualized pacer leads. Valvular calcifications. Respiratory motion artifact limits evaluation. LIVER, GALLBLADDER, AND BILIARY TREE: The liver is normal in size, shape, and attenuation. No focal hepatic lesion or biliary ductal dilatation is present. The gallbladder is surgically absent. PANCREAS: Unremarkable. SPLEEN: Multiple calcified granulomas of the spleen. 1.1 cm splenule. ADRENAL GLANDS: Unremarkable. KIDNEYS AND URETERS: Mild right-sided hydroureteronephrosis secondary to a 1.2 cm calculus along the right proximal ureter. Additional right renal calculi noted measuring up to 3 mm. No left-sided nephrolithiasis or hydronephrosis. BLADDER: Unremarkable. GASTROINTESTINAL TRACT: Small hiatal hernia. Colonic diverticulosis without acute diverticulitis. The small and large bowel are unremarkable. The appendix is unremarkable. ABDOMINAL WALL: Redemonstrated laxity of the abdominal wall without discrete hernia. LYMPH NODES: No enlarged lymph nodes per size criteria. VASCULAR: Abdominal aorta is nonaneurysmal. Atherosclerotic calcifications of the abdominal aorta and its branches. PELVIC VISCERA: Anteverted uterus. OSSEOUS STRUCTURES: Osteopenia. Multilevel degenerative changes of the thoracolumbar lumbosacral spine. Right hip hardware, grossly intact. Partially visualized retrograde left femoral intramedullary nail, grossly intact. CT/CT abdomen pelvis wo IV con IMPRESSION: 1. Mild right-sided hydroureteronephrosis secondary to a 1.2 cm calculus along the right proximal ureter. Additional right renal calculi noted measuring up to 3 mm. 2. Trace bilateral pleural effusions, right greater than left. Pleural calcifications bilaterally along the posterior aspect of the bilateral lower lobes. 3. Status post cholecystectomy. 4. Multiple calcified granulomas of the spleen. 5. Small hiatal hernia. 6. Colonic diverticulosis without acute diverticulitis. 7. Osteopenia. Dictated By: Sneha Sky MD Signed By: Electronically signed by Sneha Sky MD 11/25/23 1841 Radiology Impression Discussion of test interpretation with radiology: I have reviewed the radiologist's reading. Independent Historian Clinical information obtained from an independent historian. History obtained from or confirmed by: Other (patient's daughter provided additional history and confirmed the history provided by the patient.) Chronic Conditions Patient?s care impacted by: Hypertension Critical Care Time Critical Care Time Critical Care Time: Yes Total Critical Care Time: 42 Attestation: I spent 42 minutes of Critical Care Time with this patient. This does not include time spent on separately reported billable procedures. Discharge Plan Discharge Clinical Impression: Hydronephrosis, Kidney calculi Patient Disposition: Admitted As Inpatient Print Language: Lithuanian
[2023-11-25 22:02] LABS: Appearance Urine Clear; Color Urine Yellow; Glucose Urine UA Negative (Negative); Leukocyte Esterase Urine Trace (Negative); Nitrite Urine Negative (Negative); UMIC TRIGGER UACC YES; Urine Blood Moderate (2+) (Negative); Urine Ketones 15 mg/dL (Negative); Urine Protein 30 (1+) mg/dL (Neg-Trace)
[2023-11-25 23:01] LABS: Bacteria Urine None Seen (None Seen); Hyaline Casts Urine 0-2 /LPF (0-2); RBC Urine >20 /HPF (0-2); Squamous Epithelial Cell Urine 0-2 /HPF (0-2); WBC Urine 0-5 /HPF (0-5)
[2023-11-25] MEDS: Morphine Sulfate 4 MG/ML CARTRIDGE IVPUSH (23:37)
[2023-11-25] MEDS: ondansetron HCL 4 MG/2 ML VIAL IVPUSH (23:37)
--- NOTE | 2023-11-25 23:48 | PC.NURSE ---
pt presents to the ED verbalizing she has kidney stones. pt c/o right sided flank pain that radiates to center of back w/ n/v. denies dysuria/hematuria/any other urinary sx.pt actively vomiting during assessment. 20gIV placed in the right AC - labs obtained/sent to lab by then RN/tech. medication administered per provider order. effectiveness pending. pt waiting to go to over CT results w/ provider at this time. no sob/wob noted. respirations even/unlabored. lights dimmed. plan of care ongoing. call valentine placed within reach.
[2023-11-25 23:53] LABS: INTERNATIONAL NORM RATIO 2.1 (0.9-1.1); Prothrombin Time 25.5 SEC (11.1-13.3)
[2023-11-25 23:55] LABS: Basophils Percent Auto 0.2 % (0-2); Eosinophils Percent Auto 0.2 % (0-4); Hematocrit 40.8 % (37.0-47.0); Hemoglobin 13.6 g/dl (12.0-16.0); Imm Gran Abs Auto 0.01 X10*3/uL (0.00-0.03); Imm Gran Pct Auto 0.2 % (0.0-0.4); Lymphocytes Absolute Auto 0.5 X10*3/uL (1.2-4.9); Lymphocytes Percent Auto 8.3 % (20-40); Mean Corpuscular HGB Conc 33.3 g/dl (31.0-35.0); Mean Corpuscular Hemoglobin 29.2 pg (27.0-33.0); Mean Corpuscular Volume 87.6 fL (80.0-98.0); Mean Platelet Volume 11.1 fL (9.4-12.3); Monocytes Absolute Auto 0.1 X10*3/uL (0.1-1.2); Monocytes Percent Auto 2.2 % (2-11); Neutrophils Absolute Auto 5.7 x10*3/uL (2.0-8.3); Neutrophils Percent Auto 88.9 % (45-73); PLT CLUMP 1; Red Blood Count 4.66 X10*6/uL (4.20-5.50); Red Cell Distribution Width 14.9 % (11.0-16.0); SCAN SMEAR FLAG 1
[2023-11-25 23:56] LABS: MANUAL DIFF FLAG NO; Partial Thromboplastin Time 24.9 SEC (26.0-36.8); White Blood Count 6.4 X10*3/uL (4.8-10.8)
[2023-11-25 23:58] LABS: Lactic Acid 1.2 mmol/L (0.5-2.0)
[2023-11-26] VITALS (17 sets, daily range): BP systolic 103–148; BP diastolic 42–86; PULSE 60–98; RESP 14–24; TEMP 36–36.9; O2SAT 84–99; BMI 33.3
[2023-11-26 00:07] LABS: Platelet Count 126 X10*3/uL (160-400)
[2023-11-26 00:12] LABS: Alanine Aminotransferase 16 U/L (0-31); Alkaline Phosphatase 97 U/L (39-117); Anion Gap 17 (12-20); Aspartate Amino Transferase 35 U/L (5-31); Bilirubin Direct 0.4 mg/dL (0.0-0.5); Bilirubin Total 1.1 mg/dL (0.0-1.0); Blood Urea Nitrogen 20 mg/dL (9-16); Calcium 10.3 mg/dL (8.4-10.2); Carbon Dioxide 24 mmol/L (22-29); Chloride 105 mmol/L (96-108); Creatinine Clr Calc Pharmacy 45.6; Estimated Glomerular Filt Rate 56; Glucose Random 163 mg/dL (60-115); Lipase 34 U/L (8-78); Magnesium 1.8 mg/dL (1.6-2.6); Potassium 4.9 mmol/L (3.3-5.1); Sodium 141 mmol/L (135-145); Total Protein 7.2 g/dL (6.5-8.0)
--- NOTE | 2023-11-26 01:17 | P.HPHOSP_ITS ---
History of Present Illness Date of Service: 11/26/23 Attending physician on admission: Vipul Vega Chief Complaint: Right flank pain Ramona Pinon is 83 years old woman with past medical history significant for nephrolithiasis, HFrEF (EF 40%), mitral valve replaced (bioprosthetic), tricuspid valve repair, atrial fibrillation on Eliquis, hyperlipidemia and essential hypertension presents to the ED complaining of right flank pain that started 2 days ago but yesterday in the afternoon got worse associated with nausea and vomiting. HPI was provided by patient's daughter who was at bedside as the patient was sleeping soundly after receiving treatment with IV narcotics. According to daughter, patient has not been having bloody urine, fever and not complaining of pain with urination. Also, patient has not complained of shortness of breath, chest pain, palpitations or dizziness. In the ED, she has been found with stable vital signs. Blood workup showed no leukocytosis or lactic acidosis. Hemoglobin is 13.6 and platelet 126. INR is 2.1. There are no significant electrolyte imbalances. Urinalysis remarkable for RBC more than 10 and 2+ blood. Abdominal pelvis CT scan is remarkable for mild right-sided hydroureteronephrosis secondary to a 1.5 cm calculus along the right proximal ureter. ED tx: Morphine 4 mg IV, Zofran 4 mg IV Review of Systems 2 Review of Systems: Yes Other (sleeping after receiving IV morphine) [facility] Medical History Chronic atrial fibrillation Chronic anticoagulation Obesity CKD (chronic kidney disease) stage 3, GFR 30-59 ml/min Nephrolithiasis, uric acid Hyperlipidemia HTN (hypertension) A-fib GORDON (obstructive sleep apnea) COPD (chronic obstructive pulmonary disease) Pulmonary HTN Severe mitral regurgitation Thiamine deficiency Osteoporosis Family History Father No problems noted. Mother No problems noted. Maternal Aunt Breast cancer Surgical History Hx of hernia repair History of open reduction and internal fixation (ORIF) procedure Social History Household Members: Spouse Housing: House Do you presently have visiting nurse or other home services: No Alcohol intake: never Patient Tobacco Use Status: Former Tobacco user Tobacco use type: Cigarette e-Cigarette/Vaping Use: Never Used Second Hand Smoke Exposure: No service: No Current occupational status: retired Cognitive needs: No Hearing needs: No Vision needs: No Meds Allergies Allergy/AdvReac Type Severity Reaction Status Date / Time acetaminophen [From Vicodin] Allergy Intermediate per patient Verified 11/25/23 19:00 hydrocodone [From Vicodin] Allergy Mild CHEST PAIN Verified 11/25/23 19:00 Active Medications: Current Medications Acetaminophen (Acetaminophen 325 Mg Tablet) 650 mg PO Q6H PRN PRN Reason: Pain, Mild (Pain Scale 1-3), fever or headache Hydromorphone HCl (Hydromorphone Hcl 1 Mg/Ml Syringe) 0.5 mg IVPUSH Q4H PRN; Protocol PRN Reason: Pain, Severe (Pain Scale 7-10) Lactated Ringer's (Lr) 1,000 mls @ 75 mls/hr IVCONT .[id number] [facility] Ondansetron HCl (Ondansetron Hcl 4 Mg/2 Ml Vial) 4 mg IVPUSH Q4H PRN PRN Reason: Nausea and Vomiting Phytonadione (Phytonadione (Vit K1) 1 Mg/0.5 Ml Syringe) 0.5 mg IM ONCE STA Stop: 11/26/23 01:14 Sodium Chloride (0.9 % Sodium Chloride Flush 3 Ml Syringe) 3 ml IVFLUSH [facility] Home Medications ?Medication ?Instructions ?Recorded ?Confirmed ?Last Taken ?Type atenolol 50 mg tablet 50 mg PO DAILY 08/24/22 11/04/23 Unknown History ascorbate calcium (vitamin C) 500 500 mg PO DAILY 01/04/23 11/04/23 Unknown History mg tablet aspirin 81 mg tablet,delayed 81 mg PO DAILY 01/04/23 11/04/23 Unknown History release (Noel Low Dose Aspirin) tuygsxbjqbmf-Xw-izdn-minerals tab PO 01/04/23 11/04/23 Unknown History zinc gluconate 50 mg tablet 50 mg PO DAILY 01/04/23 11/04/23 Unknown History Physical Exam 2 Vital Signs and Narrative: Vital Signs: Last Vital Signs Temp 97.4 F 11/25/23 18:57 Pulse 101 H 11/25/23 18:57 Resp 18 11/25/23 18:57 BP 136/71 11/25/23 18:57 Pulse Ox 93 11/25/23 18:57 O2 Del Method Room Air 11/25/23 18:57 BMI result Body Mass Index 30.1 Constitutional - Sleeping, sedated. Awakes easily. HEENT - Normocephalic. Heart - Irregular. Normal rate. Lungs - Normal lung expansion, Normal respiratory effort, No respiratory distress, CTA bilaterally Abd - not distended, increased bowel sounds, right flank tenderness. No guarding or rebound Extremities - no calf tenderness bilaterally, no swelling Skin - Warm/Dry Neurological - Sedated Psychological - No agitation. Results Labs 11/25/23 23:38 11/25/23 23:38 Labs: Laboratory Results - last 24 hr 11/25/23 11/25/23 21:54 23:38 MCV 87.6 MCH 29.2 MCHC 33.3 RDW 14.9 Plt Count 126 L D MPV 11.1 Immature Gran % (Auto) 0.2 Neut % (Auto) 88.9 H Lymph % (Auto) 8.3 L [place]ahan % (Auto) 2.2 Eos % (Auto) 0.2 Baso % (Auto) 0.2 Lymph # (Auto) 0.5 L [place] # (Auto) 0.1 Eos # (Auto) 0.0 Baso # (Auto) 0.0 Abs Immat Gran (auto) 0.01 Absolute Neuts (auto) 5.7 Absolute Nucleated RBC 0.000 Nucleated RBC % (auto) 0.0 PT 25.5 H INR 2.1 H APTT 24.9 L Anion Gap 17 Estim Creat Clear Calc 45.6 Estimated GFR 56 Random Glucose 163 H Lactic Acid 1.2 Calcium 10.3 H Magnesium 1.8 Total Bilirubin 1.1 H Direct Bilirubin 0.4 AST 35 H ALT 16 Alkaline Phosphatase 97 Total Protein 7.2 Albumin 4.0 Lipase 34 Urine Color Yellow Urine Appearance Clear Urine pH 7.0 Ur Specific [place] 1.020 Urine Protein 30 (1+) H Urine Glucose (UA) Negative Urine Ketones 15 Urine Blood Moderate (2+) H Urine Nitrite Negative Ur Leukocyte Esterase Trace H Urine RBC >20 H Urine WBC 0-5 Ur Squamous Epith Cells 0-2 Urine Bacteria None Seen Hyaline Casts 0-2 Imaging Radiologist's Impressions: Impressions Abdomen/Pelvis CT 11/25/23 20:58 IMPRESSION: 1. Mild right-sided hydroureteronephrosis secondary to a 1.2 cm calculus along the right proximal ureter. Additional right renal calculi noted measuring up to 3 mm. 2. Trace bilateral pleural effusions, right greater than left. Pleural calcifications bilaterally along the posterior aspect of the bilateral lower lobes. 3. Status post cholecystectomy. 4. Multiple calcified granulomas of the spleen. 5. Small hiatal hernia. 6. Colonic diverticulosis without acute diverticulitis. 7. Osteopenia. Assessment and Plan (1) Hydronephrosis: Qualifiers: Hydronephrosis type: with renal calculous obstruction Qualified Code(s): N13.2 - Hydronephrosis with renal and ureteral calculous obstruction Status: Acute (2) Kidney calculi: Status: Acute Plan Ramona Pinon is 83 years old woman with PMHx significant for nephrolithiasis admitted with: * Right hydroureteronephrosis with ureteral calculus (1.2 cm) obstruction. Admit to hospitalist service. NPO. Pain control with Dilaudid as needed. Antiemetic therapy as needed. Gentle IV fluids (EF 40%). Hold warfarin (will give vitamin K as INR is therapeutic -2.1). Urology consult -Dr. Bolanos contacted by ED. * Essential hypertension. Continue amlodipine and atenolol. * Hyperlipidemia. Continue statin. * HFrEF. No signs or symptoms of decompensation. Furosemide on hold due to NPO status. * GERD. Continue PPI. * Chronic atrial fibrillation. Rate controlled. Continue atenolol. Warfarin on hold for possible procedure. * Hx of mitral valve replacement. [facility] Epic porcine bioprosthetic. * Hx of tricuspid valve repair. Edward annuloplasty. * Hx of right-sided pulmonary vein isolation and left atrial appendage resection. * s/p dual chamber PPM. * COPD, no home oxygen. Albuterol nebs as needed. * GORDON. Nocturnal CPAP. DVT prophylaxis: currently therapeutic INR. SCDs Code status: Full Patient will need hospitalization for right obstructive renal calculus managed with pain medications, IV fluids and surgical intervention by urology service Quality Stroke Does the patient have a stroke diagnosis?: No VTE Prior VTE?: No VTE Risk Level:: Medical - moderate - high VTE Device Contraindication: N/A - Device Ordered VTE Drug Contraindication: Treatment Not Indicated
--- NOTE | 2023-11-26 01:32 | PC.NURSE ---
pt asleep/resting comfortably in no apparent distress w/ the lights dimmed. no sob/wob noted. respirations even/unlabored. pt waiting for bed assignment at this time. call valentine placed within reach.
--- NOTE | 2023-11-26 01:39 | PC.NURSE ---
pt noted to be on 84% on RA by tech when obtaining vitals. pt verbalizes that she uses 2L via NC as well as CPAP at home at bed time. pt currently placed on 2L via NC - resting at 95%. no sob/wob noted. respirations even/unlabored. lung sounds CTA. admitting provider notified/aware.
[2023-11-26] MEDS: Phytonadione (Vit K1) 2.5 MG in 0.9 % Sodium Chloride 50 ML 100 MG IV (02:45)
--- NOTE | 2023-11-26 03:53 | PC.NURSE ---
pt transported upstairs at this time. [facility]
[2023-11-26] MEDS: Lactated Ringers 1,000 ML 75 ML IVCONT ×2 (03:55→16:34)
--- NOTE | 2023-11-26 04:54 | PC.NURSE ---
0340-ADMITTED FROM ED SETTING TO [place] [id number] WITH DX: RIGHT OBSTRUCTING RENAL CALCULI. PT A/OX3, NOTED SLEEPY AT THIS TIME, REPORT STATED NARCOTICS MADE PT DROWSY. NO PAIN OR DISCOMFORT UPON ADMISSION, COLOR GOOD, LUNG TORRES CLEAR, VSS OXYGEN AT 2 LITERS N/C AND THEN CPAP BY RESP THERAPIST DUE TO HX GORDON, PT TOLERATES WELL. LARGE AGING BRUISE NOTED AT LEFT KNEE, PT STATED SHE BUMPED IT AT HOME FEW DAYS BACK, BLE'S WITH TAUT SKIN, +PP BUT DIM. RIGHT ABD TENDER, SOFT, LBM 11/23. #20 ANGIO TO RIGHT AC, IVF OF LR ORDERED. ASSISTANCE WITH OWN CANE FROM STRETCHER INTO, APPROX., 8 STEPS. HOB UP, NO NOTED DISTRESS. HFR PROTOCOL ACTIVATED PT IS DROWSY AND WEAK FROM ED TIME, NARCOTICS, AND LATE HOUR. BED ALARM EXPLAINED AND ACTIVATED. NPO DIET NOTED, MAY HAVE ICE CHIPS. CALL OWENS W/I REACH, WILL CONTINUE TO MONITOR CLOSELY
[2023-11-26 07:39] LABS: Basophils Percent Auto 0.2 % (0-2); Eosinophils Percent Auto 0.2 % (0-4); Hematocrit 39.1 % (37.0-47.0); Hemoglobin 12.2 g/dl (12.0-16.0); Imm Gran Abs Auto 0.03 X10*3/uL (0.00-0.03); Imm Gran Pct Auto 0.5 % (0.0-0.4); Lymphocytes Absolute Auto 0.6 X10*3/uL (1.2-4.9); Lymphocytes Percent Auto 9.1 % (20-40); MANUAL DIFF FLAG SCAN; Mean Corpuscular HGB Conc 31.2 g/dl (31.0-35.0); Mean Corpuscular Hemoglobin 29.2 pg (27.0-33.0); Mean Corpuscular Volume 93.5 fL (80.0-98.0); Monocytes Absolute Auto 0.4 X10*3/uL (0.1-1.2); Monocytes Percent Auto 5.6 % (2-11); Neutrophils Absolute Auto 5.3 x10*3/uL (2.0-8.3); Neutrophils Percent Auto 84.4 % (45-73); PLT CLUMP 1; Red Blood Count 4.18 X10*6/uL (4.20-5.50); Red Cell Distribution Width 14.9 % (11.0-16.0); SCAN SMEAR FLAG 1
[2023-11-26 07:43] LABS: INTERNATIONAL NORM RATIO 1.9 (0.9-1.1); Prothrombin Time 23.6 SEC (11.1-13.3)
[2023-11-26 07:53] LABS: Anion Gap 15 (12-20); Blood Urea Nitrogen 19 mg/dL (9-16); Calcium 9.4 mg/dL (8.4-10.2); Carbon Dioxide 23 mmol/L (22-29); Chloride 108 mmol/L (96-108); Creatinine Clr Calc Pharmacy 54.3; Estimated Glomerular Filt Rate > 60; Glucose Random 141 mg/dL (60-115); Potassium 4.5 mmol/L (3.3-5.1); Sodium 141 mmol/L (135-145)
[2023-11-26 08:16] LABS: White Blood Count 6.2 X10*3/uL (4.8-10.8)
[2023-11-26 08:17] LABS: Platelet Count 109 X10*3/uL (160-400)
[2023-11-26 08:18] LABS: SLIDE REVIEW VERIFIED
--- NOTE | 2023-11-26 09:54 | PHA.MEDREC ---
Pharmacy Consult ? Medication Reconciliation Pharmacy has completed the medication reconciliation. confirmed meds with pts spouse whom had a list.
--- NOTE | 2023-11-26 10:14 | MHC.CM.PN ---
PT lives with had no previous servies has a ride home dc plan home no services
--- NOTE | 2023-11-26 12:06 | PM.UROCN ---
History of Present Illness Consult details Consult date: 11/26/23 Narrative: CC ureteric obstruction secondary to stone 83-year-old female Past history nephrolithiasis Presents with right-sided flank pain prior 24 hours Pain intermittent and mild initially but has since worsened to 8/10. Constant. Radiates to right midabdomen and is associated with nausea and vomiting. Previous evaluation with Nephrology Imaging Mild right-sided hydroureteronephrosis secondary to a 1.2 cm calculus along the right proximal ureter. Additional right renal calculi noted measuring up to 3 mm. Creatinine 0.84, calcium 9.4 - has trended high normal, last PTH 2019 low Based on imaging findings and clinical picture recommend cystoscopy, right retrograde with stent placement Review of Systems Constitutional: Constitutional: Reports as per HPI and Reports no additional constitutional complaints Cardiovascular: Cardiovascular: Reports as per HPI and Reports no additional cardiovascular complaints Respiratory: Respiratory: Reports as per HPI and Reports no additional respiratory complaints Gastrointestinal: Gastrointestinal: Reports as per HPI and Reports no additional gastrointestinal complaints Genitourinary: Genitourinary: Reports as per HPI Musculoskeletal: Musculoskeletal: Reports no additional musculoskeletal complaints and Reports as per HPI Neurologic: Reports system reviewed and no additional complaints, except as documented and Reports as per HPI [facility] Past Medical History Medical History Chronic atrial fibrillation Chronic anticoagulation Obesity CKD (chronic kidney disease) stage 3, GFR 30-59 ml/min Nephrolithiasis, uric acid Hyperlipidemia HTN (hypertension) A-fib GORDON (obstructive sleep apnea) COPD (chronic obstructive pulmonary disease) Pulmonary HTN Severe mitral regurgitation Thiamine deficiency Osteoporosis Family History Family History Father No problems noted. Mother No problems noted. Maternal Aunt Breast cancer Surgical History Surgical History Hx of hernia repair History of open reduction and internal fixation (ORIF) procedure Social History Social History Household Members: Spouse Housing: House Do you presently have visiting nurse or other home services: No Alcohol intake: never Patient Tobacco Use Status: Former Tobacco user Tobacco use type: Cigarette e-Cigarette/Vaping Use: Never Used Second Hand Smoke Exposure: No service: No Current occupational status: retired Cognitive needs: No Hearing needs: No Vision needs: No Meds Allergies Allergy/AdvReac Type Severity Reaction Status Date / Time acetaminophen [From Vicodin] Allergy Intermediate per patient Verified 11/25/23 19:00 hydrocodone [From Vicodin] Allergy Mild CHEST PAIN Verified 11/25/23 19:00 Active Medications: Current Medications Acetaminophen (Acetaminophen 325 Mg Tablet) 650 mg PO Q6H PRN PRN Reason: Pain, Mild (Pain Scale 1-3), fever or headache Albuterol Sulfate (Albuterol Sulfate (0.083%) 2.5 Mg/3 Ml Vial.Neb) 2.5 mg INHALE Q2H PRN PRN Reason: Shortness of Breath/Wheezing Hydromorphone HCl (Hydromorphone Hcl 0.5 Mg/0.5 Ml Syringe) 0.5 mg IVPUSH Q4H PRN; Protocol PRN Reason: Pain, Severe (Pain Scale 7-10) Lactated Ringer's (Lr) 1,000 mls @ 75 mls/hr IVCONT .[id number] [facility] Last Admin: 11/26/23 03:55 Dose: 75 mls/hr Ondansetron HCl (Ondansetron Hcl 4 Mg/2 Ml Vial) 4 mg IVPUSH Q4H PRN PRN Reason: Nausea and Vomiting Sodium Chloride (0.9 % Sodium Chloride Flush 3 Ml Syringe) 3 ml IVFLUSH QSHIFT [facility] Last Admin: 11/26/23 10:30 Dose: Not Given Home Medications ?Medication ?Instructions ?Recorded ?Confirmed ?Last Taken ?Type atenolol 50 mg tablet 50 mg PO DAILY 08/24/22 11/26/23 11/25/23 History ascorbate calcium (vitamin C) 500 500 mg PO DAILY 01/04/23 11/26/23 11/25/23 History mg tablet aspirin 81 mg tablet,delayed 81 mg PO DAILY 01/04/23 11/26/23 11/25/23 History release (Noel Low Dose Aspirin) [id number]-Gt-hsjv-minerals 1 tab PO DAILY 01/04/23 11/26/23 11/25/23 History zinc gluconate 50 mg tablet 50 mg PO DAILY 01/04/23 11/26/23 11/25/23 History omeprazole 20 mg capsule,delayed 20 mg PO BID@0630,1630 11/26/23 11/26/23 11/25/23 History release vitamin B complex 1 tab PO DAILY 11/26/23 11/26/23 11/25/23 History warfarin 2.5 mg tablet 2.5 mg PO MOTUWETHFRSA@1800 11/26/23 11/26/23 11/25/23 History warfarin 5 mg tablet 5 mg PO BELTRAN@1800 11/26/23 11/26/23 11/24/23 History Physical Exam Vital Signs: Vital Signs: Last Vital Signs Temp 96.8 F 11/26/23 07:31 Pulse 78 11/26/23 07:31 Resp 14 11/26/23 07:31 BP 128/61 11/26/23 07:31 Pulse Ox 93 11/26/23 07:31 O2 Del Method Nasal Cannula 11/26/23 07:31 O2 Flow Rate 2 11/26/23 07:31 BMI result Body Mass Index 33.3 Const: General: cooperative, healthy appearing, comfortable and no acute distress Orientation/consciousness: patient oriented x3 HEENT: Face and sinus: Yes normal facial exam Mouth: moist mucous membranes Neck: Neck: Yes normal visual inspection, Yes full ROM and Yes trachea midline Chest: Chest palpation & inspection: normal inspection of the chest Resp: Effort & Inspection: normal respiratory effort, able to speak in complete sentences and no respiratory distress GI: Inspection: Yes normal to inspection Back/Spine/Pelvis: Cervical Spine: normal cervical lordosis Thoracic/Lumbar Spine: thoracic and lumbar spine normal to inspection Skin: General skin exam: no rashes or lesions noted Neuro: General: patient oriented x3, tone normal and moves all extremities Extrem: General: Yes normal to inspection and Yes capillary refill normal Results Labs 11/26/23 07:19 11/26/23 07:19 Labs: Abnormal lab results 11/25/23 11/25/23 11/26/23 Range/Units 21:54 23:38 07:19 RBC 4.18 L (4.20-5.50) X10*6/uL Plt Count 126 L D 109 L (160-400) X10*3/uL Immature Gran % (Auto) 0.5 H (0.0-0.4) % Neut % (Auto) 88.9 H 84.4 H (45-73) % Lymph % (Auto) 8.3 L 9.1 L (20-40) % Lymph # (Auto) 0.5 L 0.6 L (1.2-4.9) X10*3/uL PT 25.5 H 23.6 H (11.1-13.3) SEC INR 2.1 H 1.9 H (0.9-1.1) APTT 24.9 L (26.0-36.8) SEC BUN 20 H 19 H (9-16) mg/dL Random Glucose 163 H 141 H (60-115) mg/dL Calcium 10.3 H (8.4-10.2) mg/dL Total Bilirubin 1.1 H (0.0-1.0) mg/dL AST 35 H (5-31) U/L Urine Protein 30 (1+) H (Neg-Trace) mg/dL Urine Blood Moderate (2+) H (Negative) Ur Leukocyte Esterase Trace H (Negative) Urine RBC >20 H (0-2) /HPF Short CBC 11/25/23 11/26/23 Range/Units 23:38 07:19 WBC 6.4 6.2 (4.8-10.8) X10*3/uL Hgb 13.6 12.2 (12.0-16.0) g/dl Hct 40.8 39.1 (37.0-47.0) % Plt Count 126 L D 109 L (160-400) X10*3/uL BMP 11/25/23 11/26/23 23:38 07:19 Sodium 141 141 Potassium 4.9 D 4.5 Chloride 105 108 Carbon Dioxide 24 23 BUN 20 H 19 H Creatinine 0.95 0.84 Calcium 10.3 H 9.4 D Liver Function 11/25/23 Range/Units 23:38 Total Bilirubin 1.1 H (0.0-1.0) mg/dL Direct Bilirubin 0.4 (0.0-0.5) mg/dL AST 35 H (5-31) U/L ALT 16 (0-31) U/L Alkaline Phosphatase 97 (39-117) U/L Albumin 4.0 (3.5-5.0) g/dL Urine 11/25/23 Range/Units 21:54 Urine Color Yellow Urine Appearance Clear Urine pH 7.0 (5.0-9.0) Ur Specific [place] 1.020 (1.005-1.025) Urine Protein 30 (1+) H (Neg-Trace) mg/dL Urine Glucose (UA) Negative (Negative) mg/dL All other labs normal. Assessment and Plan (1) Hydronephrosis: Qualifiers: Hydronephrosis type: with renal calculous obstruction Qualified Code(s): N13.2 - Hydronephrosis with renal and ureteral calculous obstruction Status: Acute (2) Kidney calculi: Status: Acute Plan Risks, benefits and alternatives to therapy were discussed. These include but are not limited to infection, bleeding, damage to local organs and tissues, need for further interventions. Anesthetic risks regarding cardiac arrhythmia, blood clots, and potential mortality were discussed. The patient understands the typical recovery time and the outpatient nature of the procedure. After consideration of these risks the patient gives full informed consent and they wish to move ahead with the procedure. Cystoscopy, right retrograde, right stent placement Procedures Date of Service Date of Service: 11/26/23
--- NOTE | 2023-11-26 12:17 | P.EN_ITS ---
Event Note Date of Service: 11/26/23 Event Note: No acute issues overnight. Pain control adequate Awake alert no acute distress Pulmonary: Clear to auscultation bilaterally no rales rhonchi or wheezes CV: No S4; positive S1-S2; no S3 murmurs rubs or gallops GI: Soft nontender nondistended normoactive bowel sounds Extremities: No edema bilaterally Assessment and plan 1. Hydronephrosis secondary to obstructive renal calculus -seen by Urology; plan for cystoscopy stone removal and right stent placement la ter today -patient is a moderate but acceptable cardiovascular risk for planned procedure and may proceed as per Dr. Bolanos. There are no medically prohibitive issues Time Spent With Patient Time: Total time managing care of this patient today ____ minutes.
--- NOTE | 2023-11-26 12:44 | P.CONAN_ITS ---
[facility] Active Problems Active Problems: All Active Problems Kidney calculi (Acute) Hydronephrosis (Acute) CHF (congestive heart failure) (Acute) CKD (chronic kidney disease) stage 3, GFR 30-59 ml/min (Acute) Bilateral kidney stones (Acute) Bilateral lower extremity edema (Acute) SOB (shortness of breath) (Acute) Hypokalemia (Acute) Vitamin D deficiency (Acute) Kidney stone (Acute) Annual physical exam (Acute) Nephrolithiasis, uric acid (Acute) Hyperlipidemia (Acute) HTN (hypertension) (Acute) A-fib (Acute) GORDON (obstructive sleep apnea) (Acute) COPD (chronic obstructive pulmonary disease) (Acute) Pulmonary HTN (Acute) Severe mitral regurgitation (Acute) Thiamine deficiency (Acute) Osteoporosis (Acute) Current use of anticoagulant therapy (Acute) Past Medical History Medical History Chronic atrial fibrillation Chronic anticoagulation Obesity CKD (chronic kidney disease) stage 3, GFR 30-59 ml/min Nephrolithiasis, uric acid Hyperlipidemia HTN (hypertension) A-fib GORDON (obstructive sleep apnea) COPD (chronic obstructive pulmonary disease) Pulmonary HTN Severe mitral regurgitation Thiamine deficiency Osteoporosis Functional capacity: independent ambulation Patient : No Family History Family History Father No problems noted. Mother No problems noted. Maternal Aunt Breast cancer Family history of problems with anesthesia: No Surgical History Surgical History Hx of hernia repair History of open reduction and internal fixation (ORIF) procedure Social History Social History Household Members: Spouse Housing: House Do you presently have visiting nurse or other home services: No Alcohol intake: never Patient Tobacco Use Status: Former Tobacco user Tobacco use type: Cigarette e-Cigarette/Vaping Use: Never Used Second Hand Smoke Exposure: No service: No Current occupational status: retired Cognitive needs: No Hearing needs: No Vision needs: No Meds Allergies Allergy/AdvReac Type Severity Reaction Status Date / Time acetaminophen [From Vicodin] Allergy Intermediate per patient Verified 11/25/23 19:00 hydrocodone [From Vicodin] Allergy Mild CHEST PAIN Verified 11/25/23 19:00 Active Medications: Current Medications Acetaminophen (Acetaminophen 325 Mg Tablet) 650 mg PO Q6H PRN PRN Reason: Pain, Mild (Pain Scale 1-3), fever or headache Albuterol Sulfate (Albuterol Sulfate (0.083%) 2.5 Mg/3 Ml Vial.Neb) 2.5 mg INHALE Q2H PRN PRN Reason: Shortness of Breath/Wheezing Hydromorphone HCl (Hydromorphone Hcl 0.5 Mg/0.5 Ml Syringe) 0.5 mg IVPUSH Q4H PRN; Protocol PRN Reason: Pain, Severe (Pain Scale 7-10) Lactated Ringer's (Lr) 1,000 mls @ 75 mls/hr IVCONT .[id number] [facility] Last Admin: 11/26/23 03:55 Dose: 75 mls/hr Ondansetron HCl (Ondansetron Hcl 4 Mg/2 Ml Vial) 4 mg IVPUSH Q4H PRN PRN Reason: Nausea and Vomiting Sodium Chloride (0.9 % Sodium Chloride Flush 3 Ml Syringe) 3 ml IVFLUSH QSHIFT [facility] Last Admin: 11/26/23 10:30 Dose: Not Given Home Medications ?Medication ?Instructions ?Recorded ?Confirmed ?Last Taken ?Type atenolol 50 mg tablet 50 mg PO DAILY 08/24/22 11/26/23 11/25/23 History ascorbate calcium (vitamin C) 500 500 mg PO DAILY 01/04/23 11/26/23 11/25/23 History mg tablet aspirin 81 mg tablet,delayed 81 mg PO DAILY 01/04/23 11/26/23 11/25/23 History release (Noel Low Dose Aspirin) [id number]-Gn-vtzl-minerals 1 tab PO DAILY 01/04/23 11/26/23 11/25/23 History zinc gluconate 50 mg tablet 50 mg PO DAILY 01/04/23 11/26/23 11/25/23 History omeprazole 20 mg capsule,delayed 20 mg PO BID@0630,1630 11/26/23 11/26/23 11/25/23 History release vitamin B complex 1 tab PO DAILY 11/26/23 11/26/23 11/25/23 History warfarin 2.5 mg tablet 2.5 mg PO MOTUWETHFRSA@1800 11/26/23 11/26/23 11/25/23 History warfarin 5 mg tablet 5 mg PO BELTRAN@1800 11/26/23 11/26/23 11/24/23 History Exam Height,Weight and Vital Signs: Height 5 ft 3 in Weight 85.3 kg Last Vital Signs Temp 96.8 F 11/26/23 07:31 Pulse 78 11/26/23 07:31 Resp 14 11/26/23 07:31 BP 128/61 11/26/23 07:31 Pulse Ox 93 11/26/23 07:31 O2 Del Method Nasal Cannula 11/26/23 07:31 O2 Flow Rate 2 11/26/23 07:31 Pertinent Lab Results Pertinent Lab Results: Laboratory Tests 11/25/23 11/25/23 11/26/23 21:54 23:38 07:19 WBC 6.4 6.2 RBC 4.66 4.18 L Hgb 13.6 12.2 Hct 40.8 39.1 MCV 87.6 93.5 D MCH 29.2 29.2 MCHC 33.3 31.2 RDW 14.9 14.9 Plt Count 126 L D 109 L MPV 11.1 Not Reportable Immature Gran % (Auto) 0.2 0.5 H Neut % (Auto) 88.9 H 84.4 H Lymph % (Auto) 8.3 L 9.1 L [place] % (Auto) 2.2 5.6 Eos % (Auto) 0.2 0.2 Baso % (Auto) 0.2 0.2 Lymph # (Auto) 0.5 L 0.6 L [place] # (Auto) 0.1 0.4 Eos # (Auto) 0.0 0.0 Baso # (Auto) 0.0 0.0 Abs Immat Gran (auto) 0.01 0.03 Absolute Neuts (auto) 5.7 5.3 Absolute Nucleated RBC 0.000 0.000 Nucleated RBC % (auto) 0.0 0.0 Smear Tech's Comments VERIFIED PT 25.5 H 23.6 H INR 2.1 H 1.9 H APTT 24.9 L Sodium 141 141 Potassium 4.9 D 4.5 Chloride 105 108 Carbon Dioxide 24 23 Anion Gap 17 15 BUN 20 H 19 H Creatinine 0.95 0.84 Estim Creat Clear Calc 45.6 54.3 Estimated GFR 56 > 60 Random Glucose 163 H 141 H Lactic Acid 1.2 Calcium 10.3 H 9.4 D Magnesium 1.8 Total Bilirubin 1.1 H Direct Bilirubin 0.4 AST 35 H ALT 16 Alkaline Phosphatase 97 Total Protein 7.2 Albumin 4.0 Lipase 34 Urine Color Yellow Urine Appearance Clear Urine pH 7.0 Ur Specific [place] 1.020 Urine Protein 30 (1+) H Urine Glucose (UA) Negative Urine Ketones 15 Urine Blood Moderate (2+) H Urine Nitrite Negative Ur Leukocyte Esterase Trace H Urine RBC >20 H Urine WBC 0-5 Ur Squamous Epith Cells 0-2 Urine Bacteria None Seen Hyaline Casts 0-2 Assessment and Plan Final Anesthetic Review Family History of Problems with Anesthesia: No
--- NOTE | 2023-11-26 13:38 | HO.ANESPROP2 ---
[facility] Active Problems Active Problems: All Active Problems Kidney calculi (Acute) Hydronephrosis (Acute) CHF (congestive heart failure) (Acute) CKD (chronic kidney disease) stage 3, GFR 30-59 ml/min (Acute) Bilateral kidney stones (Acute) Bilateral lower extremity edema (Acute) SOB (shortness of breath) (Acute) Hypokalemia (Acute) Vitamin D deficiency (Acute) Kidney stone (Acute) Annual physical exam (Acute) Nephrolithiasis, uric acid (Acute) Hyperlipidemia (Acute) HTN (hypertension) (Acute) A-fib (Acute) GORDON (obstructive sleep apnea) (Acute) COPD (chronic obstructive pulmonary disease) (Acute) Pulmonary HTN (Acute) Severe mitral regurgitation (Acute) Thiamine deficiency (Acute) Osteoporosis (Acute) Current use of anticoagulant therapy (Acute) Past Medical History Medical History Chronic atrial fibrillation Chronic anticoagulation Obesity CKD (chronic kidney disease) stage 3, GFR 30-59 ml/min Nephrolithiasis, uric acid Hyperlipidemia HTN (hypertension) A-fib GORDON (obstructive sleep apnea) COPD (chronic obstructive pulmonary disease) Pulmonary HTN Severe mitral regurgitation Thiamine deficiency Osteoporosis Functional capacity: independent ambulation Patient : No Family History Family History Father No problems noted. Mother No problems noted. Maternal Aunt Breast cancer Family history of problems with anesthesia: No Surgical History Surgical History Hx of hernia repair History of open reduction and internal fixation (ORIF) procedure History of Problems with Anesthesia: No Social History Social History Household Members: Spouse Housing: House Do you presently have visiting nurse or other home services: No Alcohol intake: never Patient Tobacco Use Status: Former Tobacco user Tobacco use type: Cigarette e-Cigarette/Vaping Use: Never Used Second Hand Smoke Exposure: No service: No Current occupational status: retired Cognitive needs: No Hearing needs: No Vision needs: No Meds Allergies Allergy/AdvReac Type Severity Reaction Status Date / Time acetaminophen [From Vicodin] Allergy Intermediate per patient Verified 11/26/23 13:37 hydrocodone [From Vicodin] Allergy Mild CHEST PAIN Verified 11/26/23 13:37 Active Medications: Current Medications Acetaminophen (Acetaminophen 325 Mg Tablet) 650 mg PO Q6H PRN PRN Reason: Pain, Mild (Pain Scale 1-3), fever or headache Albuterol Sulfate (Albuterol Sulfate (0.083%) 2.5 Mg/3 Ml Vial.Neb) 2.5 mg INHALE Q2H PRN PRN Reason: Shortness of Breath/Wheezing Hydromorphone HCl (Hydromorphone Hcl 0.5 Mg/0.5 Ml Syringe) 0.5 mg IVPUSH Q4H PRN; Protocol PRN Reason: Pain, Severe (Pain Scale 7-10) Lactated Ringer's (Lr) 1,000 mls @ 75 mls/hr IVCONT .[id number] [facility] Last Admin: 11/26/23 03:55 Dose: 75 mls/hr Ondansetron HCl (Ondansetron Hcl 4 Mg/2 Ml Vial) 4 mg IVPUSH Q4H PRN PRN Reason: Nausea and Vomiting Sodium Chloride (0.9 % Sodium Chloride Flush 3 Ml Syringe) 3 ml IVFLUSH QSHIFT [facility] Last Admin: 11/26/23 10:30 Dose: Not Given Home Medications ?Medication ?Instructions ?Recorded ?Confirmed ?Last Taken ?Type atenolol 50 mg tablet 50 mg PO DAILY 08/24/22 11/26/23 11/25/23 History ascorbate calcium (vitamin C) 500 500 mg PO DAILY 01/04/23 11/26/23 11/25/23 History mg tablet aspirin 81 mg tablet,delayed 81 mg PO DAILY 01/04/23 11/26/23 11/25/23 History release (Noel Low Dose Aspirin) [id number]-Mh-wkyl-minerals 1 tab PO DAILY 01/04/23 11/26/23 11/25/23 History zinc gluconate 50 mg tablet 50 mg PO DAILY 01/04/23 11/26/23 11/25/23 History omeprazole 20 mg capsule,delayed 20 mg PO BID@0630,1630 11/26/23 11/26/23 11/25/23 History release vitamin B complex 1 tab PO DAILY 11/26/23 11/26/23 11/25/23 History warfarin 2.5 mg tablet 2.5 mg PO MOTUWETHFRSA@1800 06/25/24 06/25/24 06/24/24 History warfarin 5 mg tablet 5 mg PO BELTRAN@1800 11/26/23 11/26/23 11/24/23 History Exam Height,Weight and Vital Signs: Height 5 ft 3 in Weight 85.3 kg Last Vital Signs Temp 96.8 F 11/26/23 07:31 Pulse 78 11/26/23 07:31 Resp 14 11/26/23 07:31 BP 128/61 11/26/23 07:31 Pulse Ox 93 11/26/23 07:31 O2 Del Method Nasal Cannula 11/26/23 07:31 O2 Flow Rate 2 11/26/23 07:31 Pertinent Lab Results Pertinent Lab Results: Laboratory Tests 11/25/23 11/25/23 11/26/23 21:54 23:38 07:19 WBC 6.4 6.2 RBC 4.66 4.18 L Hgb 13.6 12.2 Hct 40.8 39.1 MCV 87.6 93.5 D MCH 29.2 29.2 MCHC 33.3 31.2 RDW 14.9 14.9 Plt Count 126 L D 109 L MPV 11.1 Not Reportable Immature Gran % (Auto) 0.2 0.5 H Neut % (Auto) 88.9 H 84.4 H Lymph % (Auto) 8.3 L 9.1 L [place] % (Auto) 2.2 5.6 Eos % (Auto) 0.2 0.2 Baso % (Auto) 0.2 0.2 Lymph # (Auto) 0.5 L 0.6 L [place] # (Auto) 0.1 0.4 Eos # (Auto) 0.0 0.0 Baso # (Auto) 0.0 0.0 Abs Immat Gran (auto) 0.01 0.03 Absolute Neuts (auto) 5.7 5.3 Absolute Nucleated RBC 0.000 0.000 Nucleated RBC % (auto) 0.0 0.0 Smear Tech's Comments VERIFIED PT 25.5 H 23.6 H INR 2.1 H 1.9 H APTT 24.9 L Sodium 141 141 Potassium 4.9 D 4.5 Chloride 105 108 Carbon Dioxide 24 23 Anion Gap 17 15 BUN 20 H 19 H Creatinine 0.95 0.84 Estim Creat Clear Calc 45.6 54.3 Estimated GFR 56 > 60 Random Glucose 163 H 141 H Lactic Acid 1.2 Calcium 10.3 H 9.4 D Magnesium 1.8 Total Bilirubin 1.1 H Direct Bilirubin 0.4 AST 35 H ALT 16 Alkaline Phosphatase 97 Total Protein 7.2 Albumin 4.0 Lipase 34 Urine Color Yellow Urine Appearance Clear Urine pH 7.0 Ur Specific [place] 1.020 Urine Protein 30 (1+) H Urine Glucose (UA) Negative Urine Ketones 15 Urine Blood Moderate (2+) H Urine Nitrite Negative Ur Leukocyte Esterase Trace H Urine RBC >20 H Urine WBC 0-5 Ur Squamous Epith Cells 0-2 Urine Bacteria None Seen Hyaline Casts 0-2 Airway Mallampati Class: II TM Dist: >3cm Neck ROM: Full Heart: irreg. Lungs: CTA Assessment and Plan Assessment Anesthesia Assessment: Anesthesia Plan Discussed Final Anesthetic Review Family History of Problems with Anesthesia: No History of Problems with Anesthesia: No NPO: Yes ASA Class: III and Emergency Final Preanesthetic Review: Meds/Allgs Chart Reviewed, Consent Obtained/Reviewed and Anes Risks/Benef Reviewed Patient Risk: Intermediate Procedure Risk: Low Anesthetic Plan Anesthetic Plan: GA Disposition: Standard PACU
--- NOTE | 2023-11-26 13:59 | MHC.SHP ---
Pre-Procedural Eval Section A - 24 Hr Update-Section A only Date of Service: 11/26/23 The patient is an INPATIENT: Yes The patient has been examined within 24 hours of the surgical procedure. The History & Physical has been completed within 30 days and I have reviewed it.: Yes Section B - Complete if H&P > 30 days Chief Complaint: Right obstructing renal calculi Allergies: Allergies Allergy/AdvReac Type Severity Reaction Status Date / Time acetaminophen [From Vicodin] Allergy Intermediate per patient Verified 11/26/23 13:37 hydrocodone [From Vicodin] Allergy Mild CHEST PAIN Verified 11/26/23 13:37 Plan Diagnosis/Plan: Unchanged I have reviewed the history and physical and performed a pertinent physical examination on my patient. No changes have occurred unless specified. Cystoscopy. Right retrograde right ureteral stent. Discussed risks to include but not limited to, blood in the urine, burning with urination, urgency. Time Spent With Patient Time: Total time managing care of this patient today ____ minutes.
--- NOTE | 2023-11-26 15:13 | W.PM.OPN ---
Operative Note Operative Note Date of Service: 11/26/23 Narrative: PreOperative Diagnosis:?? Right proximal ureteral stone, hydronephrosis Post Operative Diagnosis:?? ?Right proximal ureteral stone, hydronephrosis Procedure: Cystoscopy, right retrograde right stent insertion, size 7 Wallis[place] by 24 cm Surgeon:?Dr Jerzy Eng Anesthesia:? General Indications for procedure: Obstructing right ureteral stone 12-13 mm proximal ureter, right hydronephrosis Procedure: After informed consent was verified the patient was brought to the operating placed on the OR table in supine position.? General Anesthesia was administered per protocol.? The patient was placed in lithotomy position, prepped and draped in the usual sterile fashion.? Safety pause time-out and side of surgery confirmed.? Antibiotics confirmed. A 22 Wallisian cystoscope was inserted transurethrally. The bladder was visualized.? There was bloody urine noted. Both ureteric orifices were in normal position. The? right ureteric orifice was cannulated? and a retrograde examination was performed, dilatation of the renal pelvis was noted. Urine was sent from the right renal pelvis for culture. Urine draining from the renal pelvis was noted to be blood-tinged, with tiny clots. A hydrophilic guidewire was placed up to the level of the renal pelvis under fluoroscopy. A 7 fr by 24 cm ureteral stent was passed over the guide wire under fluoroscopic guidance. The guide wire was removed. The bladder was emptied.? The rigid cystoscope was removed. ? The patient tolerated the procedure well and was brought to the recovery room in stable condition. Complications: None Drains: Ureteral stent as dictated above
--- NOTE | 2023-11-26 16:32 | P.CDIM_ITS ---
PROVIDER RESPONSE TEXT: To clarify, the appropriate diagnosis supported by the clinical indicators: Persistent atrial fibrillation QUERY TEXT: PHYSICIAN'S DOCUMENTATION REQUEST Date of Query: 11/26/2023 12:58 PM EDT Patient Name: Ramona Pinon Admit Date: 11/26/2023 Dear Krishna Khan, A review of the medical record indicates additional documentation may be needed. Please review below and update the documentation accordingly. Clinical Indicators: H&P dated 11/25 - Chronic atrial fibrillation Rate controlled. Continue Atenolol. S/P dual chamber PPM. If possible, please provide further specificity regarding atrial fibrillation, such as: Paroxysmal atrial fibrillation Persistent atrial fibrillation Long lasting persistent atrial fibrillation Chronic or Permanent atrial fibrillation: when a decision has been made to accept the presence of AF and there is no further attempt to restore or maintain sinus rhythm Other (explain) Clinically unable to determine (explain) Thank you, Emmy Enriquez, CCS, CDIS Use of terms such as suspected, likely, concern for, or probable (associated with a specific diagnosi s that is being evaluated, monitored, or treated as if it exists) are acceptable and can be coded in the inpatient se tting, when documented at the time of discharge. Please use your independent medical judgment in providing your response. THIS QUERY IS PART OF THE PERMANENT MEDICAL RECORD
[2023-11-26] MEDS: 0.9 % Sodium Chloride Flush 3 ML SYRINGE IVFLUSH (16:33)
[2023-11-26] MEDS: Omeprazole 20 MG CAPSULE.DR PO (16:46)
[2023-11-27 03:40] VITALS: BP 118/56; PULSE 74; RESP 16; TEMP 36.3; O2SAT 98
[2023-11-27] MEDS: Omeprazole 20 MG CAPSULE.DR PO (05:35)
[2023-11-27] MEDS: Lactated Ringers 1,000 ML 75 ML IVCONT (05:36)
--- NOTE | 2023-11-27 05:59 | PC.NURSE ---
Pt AOx3, able to make needs known. She has no c/o pain overnight. Pt was placed on CPAP by RT, approximately 10 minutes later pt utilized call valentine to have the CPAP mask removed stating I can't do it . She has been on 2L O2 nasal cannula. Pt has voided 3x this shift. She utilizes a cane and is x1 assist OOB to the bathroom. She is steady on her feet. Call valentine is within reach. Bed alarm is on. Safety maintained throughout shift.
[2023-11-27 07:07] VITALS: BP 139/64; PULSE 88; RESP 18; TEMP 36.3; O2SAT 97
[2023-11-27] MEDS: Multivitamin TABLET 1 TAB PO (08:04)
[2023-11-27 08:05] VITALS: BP 139/64; PULSE 88
[2023-11-27] MEDS: atenoloL 50 MG TABLET PO (08:05)
[2023-11-27] MEDS: Furosemide 40 MG TABLET PO (08:05)
[2023-11-27] MEDS: Atorvastatin Calcium 80 MG TABLET PO (08:05)
[2023-11-27] MEDS: Potassium Chloride ER 10 MEQ TABLET.ER 30 MEQ PO (08:07)
[2023-11-27 08:08] VITALS: BP 139/64
[2023-11-27] MEDS: amLODIPine Besylate 5 MG TABLET PO (08:08)
[2023-11-27] MEDS: Ascorbic Acid 500 MG TABLET PO (08:08)
[2023-11-27] MEDS: 0.9 % Sodium Chloride Flush 3 ML SYRINGE IVFLUSH (08:08)
--- NOTE | 2023-11-27 08:17 | PC.NURSE ---
PLT 109,Dr. Khan notified,qustioned ASA ,Coumadin not reordered yet
[2023-11-27] MEDS: Aspirin Enteric Coated 81 MG TABLET.DR PO (08:33)
--- NOTE | 2023-11-27 10:17 | HO.POSTANES ---
Post Anesthesia Evaluation Post Anesthesia Evaluation Date of Service: 11/26/23 Vital Signs: Vital Signs Temp Pulse Resp BP Pulse Ox O2 Del Method O2 Flow Rate 11/27/23 08:08 139/64 11/27/23 08:05 139/64 11/27/23 08:05 88 139/64 11/27/23 07:07 97.3 F 88 18 139/64 97 Nasal Cannula 2 11/27/23 03:40 97.3 F 74 16 118/56 L 98 Nasal Cannula 2 11/26/23 23:50 97.1 F 98 16 141/86 H 93 Nasal Cannula 2 Anesthesia: General Mental Status: Awake Pain Control: Satisfactory Nausea/Vomiting: None Hydration: Adequate Anesthesia-Related Issues: No Anes. Related Issues
[2023-11-27 11:39] VITALS: BP 129/56; PULSE 71; RESP 16; TEMP 36.4; O2SAT 97
--- NOTE | 2023-11-27 11:47 | PM.DS ---
DS: Providers Provider Date of Service: 11/27/23 Date of admission: 11/26/23 01:11 Date of discharge: 11/27/23 Primary care physician: Kiesha Macedo MD DS: Diagnosis Discharge Diagnosis (1) Hydronephrosis: Status: Acute (2) Kidney calculi: Status: Acute DS: Summary Hospital Course Hospital Course: 83 years old woman with past medical history significant for nephrolithiasis, HFrEF (EF 40%), mitral valve replaced (bioprosthetic), tricuspid valve repair, atrial fibrillation on Eliquis, hyperlipidemia and essential hypertension presents to the ED complaining of right flank pain that started 2 days ago but yesterday in the afternoon got worse associated with nausea and vomiting. HPI was provided by patient's daughter who was at bedside as the patient was sleeping soundly after receiving treatment with IV narcotics. According to daughter, patient has not been having bloody urine, fever and not complaining of pain with urination. Also, patient has not complained of shortness of breath, chest pain, palpitations or dizziness. In the ED, she has been found with stable vital signs. Blood workup showed no leukocytosis or lactic acidosis. Hemoglobin is 13.6 and platelet 126. INR is 2.1. There are no significant electrolyte imbalances. Urinalysis remarkable for RBC more than 10 and 2+ blood. Abdominal pelvis CT scan is remarkable for mild right-sided hydroureteronephrosis secondary to a 1.5 cm calculus along the right proximal ureter. Hospital Course Patient admitted to the general medical floor and kept NPO overnight. On 11/26/2023 patient underwent right retrograde cystoscopy with right stent insertion. Her procedure and postoperative period were uneventful. She did have some scant hematuria that was self-limiting. At this point in time she is medically acceptable for discharge to resume all her previous medicine. She did not take her Coumadin night of procedure but as per Urology can start her Coumadin at regular doses the night of discharge. She will follow up with her PCP and her Coumadin Clinic as scheduled Time Attestation Discharge Coordination Time (in mins): 35 Quality: Safe Use of Opioids Does Pt have an Active Cancer Diagnosis on the Problem List?: No Quality: Stroke Does the patient have a stroke diagnosis?: No Physical Exam Vital Signs: Vital Signs: Last Vital Signs Temp 97.6 F 11/27/23 11:39 Pulse 71 11/27/23 11:39 Resp 16 11/27/23 11:39 BP 129/56 L 11/27/23 11:39 Pulse Ox 97 11/27/23 11:39 O2 Del Method Nasal Cannula 11/27/23 11:39 O2 Flow Rate 2 11/27/23 11:39 BMI result Body Mass Index 33.3 Const: Other: Awake alert no acute distress Resp: Other: Clear to auscultation bilaterally no rales rhonchi or wheezes Cardio: Other: No S4; positive S1-S2; no S3 murmurs rubs or gallops GI: Other: Soft nontender nondistended normoactive bowel sounds Extrem: Other: No edema bilaterally DS: Data Data Completed and Pending Completed studies during hospitalization [Text1]: Procedures Assistance with Respiratory Ventilation, Less than 24 Consecutive Hours, Continuous Positive Airway Pressure (10/07/22) Labs on day of discharge: Preliminary micro results at discharge 11/25/23 23:38 Blood Culture - Preliminary Blood - Venous No growth after 24 hours. 11/25/23 23:42 Blood Culture - Preliminary Blood - Venous No growth after 24 hours. Discharge Plan Discharge Anticipated Discharge Date/Time: 11/27/23 11:44 Patient Disposition: Home Health Service Discharge Diagnosis: Obstructive uropathy secondary to renal calculi Referrals: Kiesha Macedo MD [Primary Care Provider] - 1 Week Discharge Medications: Continued atorvastatin 80 mg tablet 80 mg PO DAILY Qty: 90 3RF amlodipine 5 mg tablet 5 mg PO DAILY Qty: 90 3RF albuterol sulfate 90 mcg/actuation HFA aerosol inhaler 2 puff inhalation Q4-6H PRN (Reason: shortness of breath or wheezing) Qty: 8.5 0RF furosemide [Lasix] 40 mg tablet 40 mg PO DAILY Qty: 90 1RF potassium chloride 20 mEq tablet,ER particles/crystals 30 meq PO DAILY Qty: 135 1RF atenolol 50 mg tablet 50 mg PO DAILY warfarin 2.5 mg tablet 2.5 mg PO MOTUWETHFRSA@1800 Protocol: Dose Management Condition: Saturday (Week One) Dose/Route: 5 mg Instruction: 2 x 2.5 mg tablets Condition: Saturday Dose/Route: 2.5 mg Instruction: 1 x 2.5 mg tablet Condition: Saturday Dose/Route: 2.5 mg Instruction: 1 x 2.5 mg tablet Condition: Saturday Dose/Route: 2.5 mg Instruction: 1 x 2.5 mg tablet Condition: Dose/Route: 2.5 mg Instruction: 1 x 2.5 mg tablet Condition: Saturday Dose/Route: 2.5 mg Instruction: 1 x 2.5 mg tablet Condition: Saturday Dose/Route: 2.5 mg Instruction: 1 x 2.5 mg tablet Condition: Saturday (Week Two) Dose/Route: 5 mg Instruction: 2 x 2.5 mg tablets Condition: Saturday Dose/Route: 2.5 mg Instruction: 1 x 2.5 mg tablet Condition: Saturday Dose/Route: 2.5 mg Instruction: 1 x 2.5 mg tablet Condition: Saturday Dose/Route: 2.5 mg Instruction: 1 x 2.5 mg tablet Condition: Dose/Route: 2.5 mg Instruction: 1 x 2.5 mg tablet Condition: Saturday Dose/Route: 2.5 mg Instruction: 1 x 2.5 mg tablet Condition: Saturday Dose/Route: 2.5 mg Instruction: 1 x 2.5 mg tablet Protocol Text: Adjustment Start Date: Saturday11/04/23 INR Value: 2.3 INR Date: 11/04/23 Recheck Date: 12/02/23 Additional Instructions: REVIEW FOOD LIST WEEKLY, EAT A MIX OF FRUITS AND VEGETABLES DURING EVERY WEEK Rx Instructions: taking 2.5mg x 6, 5mg x 1sunday warfarin 5 mg Tablet 5 mg PO BELTRAN@1800 vitamin B complex Tablet 1 tab PO DAILY omeprazole 20 mg capsule,delayed release(DR/EC) 20 mg PO BID@0630,1630 ascorbate calcium (vitamin C) 500 mg tablet 500 mg PO DAILY zinc gluconate 50 mg tablet 50 mg PO DAILY kvvnghzjhvvd-Vu-kjre-minerals Tablet 1 tab PO DAILY aspirin [Noel Low Dose Aspirin] 81 mg tablet,delayed release (DR/EC) 81 mg PO DAILY Discharge Orders: Discharge Order (Routine); Ordered 11/27/23 Ordered By: Krishna Khan Diet: Advance to usual diet Activity on Discharge: As tolerated Stand Alone Forms: Patient Portal Discharge page Print Language: Lithuanian Care Plan Goals: Resume all medications as taken prior to hospitalization Health Concerns: Please resume your Coumadin this evening at usual dosing. Follow up with Coumadin clinic as scheduled Plan of Treatment: Follow-up with Urology; Dr. Dewayne Ferrell's office will call with an appointment Assessment: See discharge summary
--- NOTE | 2023-11-27 13:18 | MHC.CM.PN ---
pt dcd home self care
== END 2023-11-27 13:50 | disposition home health service (06) | DRG 660 ==
LOC: HO.ED 11-26 00:26 → HO.EDOVER 11-26 01:29 → HO.S3 11-26 02:43
PROVIDERS: Physician Assistant; Physician Assistant Medical; Urology; Admitting Provider Internal Medicine; Emergency Provider Internal Medicine; PCP Internal Medicine; Visit Provider Hospitalist
PROC: 0T768DZ Dilation of Right Ureter with Intraluminal Device, Via Natural or Artificial Opening Endoscopic (ICD-10-PCS; principal; 2023-11-26 14:10)
DX: N13.2 Hydronephrosis with renal and ureteral calculous obstruction (principal); I13.0 Hypertensive heart and chronic kidney disease with heart failure and stage 1 through stage 4 chronic kidney disease, or unspecified chronic kidney disease; I48.19 Other persistent atrial fibrillation; I50.22 Chronic systolic (congestive) heart failure; N18.30 Chronic kidney disease, stage 3 unspecified; E78.5 Hyperlipidemia, unspecified; K21.9 Gastro-esophageal reflux disease without esophagitis; Z95.0 Presence of cardiac pacemaker; J44.9 Chronic obstructive pulmonary disease, unspecified; G47.33 Obstructive sleep apnea (adult) (pediatric); Z95.2 Presence of prosthetic heart valve; Z87.891 Personal history of nicotine dependence; Z79.01 Long term (current) use of anticoagulants; Z79.82 Long term (current) use of aspirin; Z79.899 Other long term (current) drug therapy
CPT/HCPCS: 36415; 74176; 80048; 80076; 81001; 81003; 83605; 83690; 83735; 85025; 85610; 85730; 87040; 87086; 94660; 99285; C1769; C2617; J0690; J1100; J2250; J2270; J2405; J2704; J3010; J3430; J7120; Q9967

== ENCOUNTER → 2023-11-26 01:11 | Outpatient (BNV) | payer MEDICARE, BC, SELFPAY | PROVIDERS: Admitting Provider Internal Medicine; Emergency Provider Internal Medicine; PCP Internal Medicine; Visit Provider Internal Medicine | DX: N13.2 Hydronephrosis with renal and ureteral calculous obstruction (principal) | CPT/HCPCS: 99222; 99239; 99499 ==

== ENCOUNTER → 2023-11-26 01:11 | Outpatient (BNV) | payer MEDICARE, BC, SELFPAY | PROVIDERS: Admitting Provider Internal Medicine; Emergency Provider Internal Medicine; PCP Internal Medicine; Visit Provider Urology | DX: N13.2 Hydronephrosis with renal and ureteral calculous obstruction (principal) | CPT/HCPCS: 52332; 74420; 99222 ==

== ENCOUNTER 2023-11-30 15:18 | Emergency (ER) | payer MEDICARE, BC, SELFPAY ==
--- NOTE | ~2023-11-30 | XR_ITS ---
EXAMINATION: XR CHEST CLINICAL INFORMATION: Shortness of breath. Chest pain. COMPARISON: 10/07/2022. TECHNIQUE: Portable supine AP view of the chest was obtained. FINDINGS: The study is limited by portable technique, suboptimal inspiration, and patient body habitus. Mild diffuse interstitial prominence, blunting of left costophrenic angle, small focal patchy retrocardiac density appear unchanged compared with 10/07/2022. No pneumothorax is appreciated. The cardiac silhouette is suboptimally evaluated, probably enlarged. The patient appears to be status post cardiac valve replacement. Tips of left subclavian pulse generator device leads project over right atrium and mid mediastinum. The aorta is atherosclerotic. Degenerative changes of the spine with lumbar dextrocurvature. Status post cholecystectomy. Partially imaged presumed right ureteral stent. XR/XR chest 1V IMPRESSION: Findings as above.
--- NOTE | ~2023-11-30 | XR_ITS ---
EXAMINATION: XR FEMUR, LEFT CLINICAL INFORMATION: Pain. COMPARISON: None available. TECHNIQUE: AP and lateral views of the left femur were obtained. FINDINGS: Intramedullary rubi present in the femur. Healed midshaft fracture. No acute abnormality. No fracture or bone destruction. No abnormal periosteal reaction. XR/XR femur LT 2V IMPRESSION: 1. No acute abnormality. 2. Intramedullary rubi in femur. Healed midshaft fracture.
--- NOTE | ~2023-11-30 | CT_ITS ---
EXAMINATION: CT KNEE WITHOUT CONTRAST, LEFT CLINICAL INFORMATION: level of displacement of tibial plateau COMPARISON: Knee radiograph 11/30/2023 TECHNIQUE: Helical scanning was performed utilizing 1 mm axial collimation through the left knee. Sagittal and coronal reformatted images were obtained on the technologist workstation. This CT examination was performed using dose optimization techniques as appropriate, variously including the following: *Automated exposure control *Adjustment of mA and/or kV according to patient size (this includes techniques or standardized protocols for targeted exams where dose is matched to indication/reason for exam; i.e. extremities or head) *Use of iterative reconstruction technique DLP: 263 mGy-cm FINDINGS: There is an acute fracture of the lateral tibial plateau with a 0.4 cm depression (series #504 sagittal image 83) and fracture lucencies involving the lateral tibial tubercle. The femur, patella and fibula are intact. Femoral intramedullary nail with single distal transverse securing screw is intact. The knee remains in anatomic alignment with joint spaces maintained. There is a moderate to large joint effusion/lipohemarthrosis. CT/CT knee LT wo IV con IMPRESSION: 1. Acute lateral tibial plateau fracture with 0.4 cm depression and fracture lucencies involving the lateral tibial tubercle. 2. Moderate to large joint effusion/lipohemarthrosis.
--- NOTE | ~2023-11-30 | XR_ITS ---
EXAMINATION: XR KNEE, LEFT CLINICAL INFORMATION: felt pop in knee, hx knee replacement COMPARISON: None available. TECHNIQUE: Two views of the left knee. FINDINGS: Intramedullary rubi within the femur. Mild degenerative joint disease of the knee. There is fracture of the proximal tibia. There is central deformity of the lateral tibial plateau with evidence of cortical disruption, fracture, of the central portion of the lateral tibial plateau. Lipohemarthrosis present. XR/XR knee LT 2V IMPRESSION: 1. Fracture of the lateral tibial plateau with associated lipohemarthrosis. CT can be helpful for further evaluation of the fracture. 2. Intramedullary rubi within the femur.
[2023-11-30 15:23] VITALS: BP 120/51; BP 139/63; PULSE 87; PULSE 90; RESP 16; TEMP 36.9; O2SAT 95; O2SAT 96; BMI 32.1
--- NOTE | 2023-11-30 16:16 | ED.LOWEXIN ---
HPI - Extremity Injury (Lower) General Chief Complaint: Extremity Injury, Lower Stated Complaint: Possible left patella dislocation, a-fib Time Seen by Provider: 11/30/23 16:06 Source: patient and EMS Mode of arrival: EMS Limitations: no limitations History of Present Illness ED Provider: Dr. Nicole Nagy HPI Narrative: Patient comes to the emergency room complaining of left-sided knee pain. Patient states that she was at a graduation constitution party, patient states that she tried stepping up a stair, and she heard a loud pop. Since then, patient has been having pain and unable to bear weight. Patient states that she did not fall. Patient has a large ecchymosis over the left knee, states that this happened couple of days ago, accidentally slammed her bathroom door on her knee. Patient denies falls or any other injuries. Related Data Home Medications ?Medication ?Instructions ?Recorded ?Confirmed atenolol 50 mg tablet 50 mg PO DAILY 08/24/22 11/26/23 ascorbate calcium (vitamin C) 500 500 mg PO DAILY 01/04/23 11/26/23 mg tablet aspirin 81 mg tablet,delayed 81 mg PO DAILY 01/04/23 11/26/23 release (Nole Low Dose Aspirin) khsikkvufxky-Vy-jlja-minerals 1 tab PO DAILY 01/04/23 11/26/23 zinc gluconate 50 mg tablet 50 mg PO DAILY 01/04/23 11/26/23 omeprazole 20 mg capsule,delayed 20 mg PO BID@0630,1630 11/26/23 11/26/23 release vitamin B complex 1 tab PO DAILY 11/26/23 11/26/23 warfarin 2.5 mg tablet 2.5 mg PO MOTUWETHFRSA@1800 11/26/23 11/26/23 warfarin 5 mg tablet 5 mg PO BELTRAN@1800 11/26/23 11/26/23 Previous Rx's ?Medication ?Instructions ?Recorded atorvastatin 80 mg tablet 80 mg PO DAILY #90 tabs 03/05/23 amlodipine 5 mg tablet 5 mg PO DAILY #90 tabs 05/23/23 albuterol sulfate 90 mcg/actuation 2 puff inhalation Q4-6H PRN 09/10/23 aerosol inhaler shortness of breath or wheezing #8.5 grams furosemide 40 mg tablet (Lasix) 40 mg PO DAILY #90 tabs 10/23/23 potassium chloride 20 mEq 30 meq (1.5 x 20 mEq) PO DAILY 10/31/23 tablet,extended release(part/cryst) #135 tabs Allergies Allergy/AdvReac Type Severity Reaction Status Date / Time acetaminophen [From Vicodin] Allergy Intermediate per patient Verified 11/30/23 15:26 hydrocodone [From Vicodin] Allergy Mild CHEST PAIN Verified 11/30/23 15:26 Review of Systems Review of Systems: Constitutional : No Weight loss, No Fever, No Chills, No Night Sweats, No Fatigue, No Malaise ENT/Mouth : No Hearing loss, No Ear Pain, No Nasal Congestion, No Sinus Pain, No Hoarseness, No sore throat, No Rhinorrhea, No Swallowing Difficulty Eyes: No Eye Pain, No Swelling, No Redness, No Foreign Body, No Discharge, No Vision Changes Cardiovascular : No Chest Pain, No SOB, No Dyspnea on Exertion, No Orthopnea, No Edema, No Palpitations Respiratory : No Cough, No Sputum, No Wheezing, No Smoke Exposure, No Dyspnea Gastrointestinal : No Nausea, No Vomiting, No Diarrhea, No Constipation, No abdominal Pain, No Hematochezia, No Melena Genitourinary : no irregular bleeding, No Dysuria, No Urinary Frequency, No Hematuria, No Urinary Incontinence, No Urgency, No Flank Pain, No Urinary Flow Changes, No Hesitancy Musculoskeletal : Left knee pain and also ecchymosis from couple of days Skin : No Skin Lesions, No rash Neuro : No Weakness, No Numbness, No Paresthesias, No Loss of Consciousness, No Dizziness, No Headache Psych : No Anxiety/Panic, No Depression, No SI/HI/AH/VH, No Social Issues, Heme/Lymph: No Bruising, No Bleeding,No Lymphadenopathy Endocrine : No Polyuria, No Polydipsia, No Temperature Intolerance PMF Past Medical History Medical History Chronic atrial fibrillation Chronic anticoagulation Obesity CKD (chronic kidney disease) stage 3, GFR 30-59 ml/min Nephrolithiasis, uric acid Hyperlipidemia HTN (hypertension) A-fib GORDON (obstructive sleep apnea) COPD (chronic obstructive pulmonary disease) Pulmonary HTN Severe mitral regurgitation Thiamine deficiency Osteoporosis Surgical History Hx of hernia repair History of open reduction and internal fixation (ORIF) procedure Family History Family History Father No problems noted. Mother No problems noted. Maternal Aunt Breast cancer Social History Social History Household Members: Spouse Housing: House Do you presently have visiting nurse or other home services: No Alcohol intake: never Patient Tobacco Use Status: Former Tobacco user Tobacco use type: Cigarette Smoked in Last 30 Days: No e-Cigarette/Vaping Use: Never Used Second Hand Smoke Exposure: No Use of substances other than those prescribed or required for medical reasons: No Advance Directives: Yes Advance Directives on File: Yes Advance Directives Date on File: 11/28/23 service: No Current occupational status: retired Cognitive needs: No Hearing needs: No Vision needs: No Physical Exam Vital Signs: Vital Signs: Last Vital Signs Temp 97.8 F 11/30/23 23:16 Pulse 75 11/30/23 23:16 Resp 18 11/30/23 23:16 BP 120/53 L 11/30/23 23:16 Pulse Ox 95 11/30/23 23:16 O2 Del Method Room Air 11/30/23 23:16 BMI result Body Mass Index 32.1 Const: Other: Appearance: Alert. Oriented X3. No acute distress. Eyes: Pupils equal, round and reactive to light. ENT: Pharynx normal. Neck: Normal inspection. Neck supple. No lymph nodes noted. No crepitus CVS: Normal heart rate and rhythm. Pulses normal. Normal S1 and S2 Respiratory: No respiratory distress. Breath sounds normal. No Wheezing. No rales Abdomen: Soft and nontender. No rigidity. No distention. Skin: Skin warm and dry. Normal skin color. Normal skin turgor. Extremities: Patient has bilateral chronic venous stasis, limited range of motion in the right knee due to chronic fractures in the past. Patient left knee seems swollen, has an ecchymosis approximately 10 cm x 10 cm, unable to move much the knee due to pain Neuro: Oriented X 3. No motor deficit. No sensory deficit. Moving all extremities. No slurred speech. CN 2 through 12 grossly intact Psych: calm, cooperative, normal affect Course Course Course Narrative: -patient declined any pain medication at this time. -x-rays of the knee and femur on the left side are pending. -patient's vitals are within normal limits Medications Administered Discontinued Medications Generic Name Dose Route Start Last Admin Trade Name Sanjeev PRN Reason Stop Dose Admin Tramadol HCl 50 mg 11/30/23 19:05 11/30/23 19:14 Tramadol Hcl 50 Mg Tablet PO 11/30/23 19:06 50 mg ONCE ONE Administration Medical Decision Making Medical Decision Making [facility] Narrative: My interpretation of x-ray, there is a small tibial plateau fracture. I discussed the x-rays with nurse practitioner from Orthopedics. We will order a CT scan of the knee to evaluate for the level of displacement. Most likely, this will not be surgical, only nonweightbearing. I discussed the above-mentioned with the patient, patient agreeable with plan, we will get a CT scan next. -my interpretation of labs, normal hematology, normal chemistry, INR 1.4, subtherapeutic CT scan: Acute Adderall a tibial plateau fracture with 0.4 cm depression and fracture lucencies involving the lateral tibial tubercle, [id number] joint effusion -I discussed the above-mentioned with Orthopedics, BRENT MEuse: Recommendations: Knee immobilizer -patient lives at home with her who is older than her and depends on his . Patient's will be okay overnight. Tomorrow, PT and case management will evaluate the patient, as patient may need extra help at home -PT case management consult pending -physician observation started at 23:40 Differential Diagnosis Differential Diagnoses: The differential diagnosis associated with the presentation includes (Femur fracture, tibial plateau fracture, dislocation) Admission/Observation Consideration of admission/observation: Escalation of care including admission/observation considered Consult Healthcare Provider Management of the patient was discussed with: Software Systems Engineer Lab Data [facility] Lab Attestation statement: I reviewed the patient's lab results. 11/30/23 16:29 11/30/23 16:29 Labs: Lab Results 11/30/23 Range/Units 16:29 WBC 5.5 (4.8-10.8) X10*3/uL RBC 4.23 (4.20-5.50) X10*6/uL Hgb 12.6 (12.0-16.0) g/dl Hct 37.8 (37.0-47.0) % MCV 89.4 (80.0-98.0) fL MCH 29.8 (27.0-33.0) pg MCHC 33.3 (31.0-35.0) g/dl RDW 14.9 (11.0-16.0) % Plt Count 145 L D (160-400) X10*3/uL MPV 10.6 (9.4-12.3) fL Absolute Nucleated RBC 0.000 (0.0-0.012) X10*3/uL Nucleated RBC % (auto) 0.0 (0.0-0.2) /100WBC PT 17.1 H D (11.1-13.3) SEC INR 1.4 H (0.9-1.1) Sodium 145 (135-145) mmol/L Potassium 3.8 (3.3-5.1) mmol/L Chloride 104 (96-108) mmol/L Carbon Dioxide 30 H (22-29) mmol/L Anion Gap 15 (12-20) BUN 13 (9-16) mg/dL Creatinine 0.85 (0.5-1.4) mg/dL Estim Creat Clear Calc 54.7 Estimated GFR > 60 Random Glucose 106 (60-115) mg/dL Calcium 10.0 D (8.4-10.2) mg/dL Independent Interpretation I performed an independent interpretation of an: CT Scan Radiology Impression Discussion of test interpretation with radiology: I have reviewed the radiologist's reading. Radiologist Impression: FINDINGS: There is an acute fracture of the lateral tibial plateau with a 0.4 cm depression (series #[id number] sagittal image 83) and fracture lucencies involving the lateral tibial tubercle. The femur, patella and fibula are intact. Femoral intramedullary nail with single distal transverse securing screw is intact. The knee remains in anatomic alignment with joint spaces maintained. There is a moderate to large joint effusion/lipohemarthrosis. CT/CT knee LT wo IV con IMPRESSION: 1. Acute lateral tibial plateau fracture with 0.4 cm depression and fracture lucencies involving the lateral tibial tubercle. 2. Moderate to large joint effusion/lipohemarthrosis. Critical Care Time Critical Care Time Critical Care Time: Yes Total Critical Care Time: 45 Attestation: I have personally provided critical care time. Time includes review of lab data, radiology results, discussion with consultants, and monitoring for potential decompensation. Intervention performed as documented. Discharge Plan Discharge Clinical Impression: Closed fracture of tibial plateau Patient Disposition: Still a Patient Prescriptions: No Action atorvastatin 80 mg tablet 80 mg PO DAILY Qty: 90 3RF amlodipine 5 mg tablet 5 mg PO DAILY Qty: 90 3RF albuterol sulfate 90 mcg/actuation HFA aerosol inhaler 2 puff inhalation Q4-6H PRN (Reason: shortness of breath or wheezing) Qty: 8.5 0RF furosemide [Lasix] 40 mg tablet 40 mg PO DAILY Qty: 90 1RF potassium chloride 20 mEq tablet,ER particles/crystals 30 meq PO DAILY Qty: 135 1RF atenolol 50 mg tablet 50 mg PO DAILY warfarin 2.5 mg tablet 2.5 mg PO MOTUWETHFRSA@1800 Protocol: Dose Management Condition: Saturday (Week One) Dose/Route: 5 mg Instruction: 2 x 2.5 mg tablets Condition: Saturday Dose/Route: 2.5 mg Instruction: 1 x 2.5 mg tablet Condition: Saturday Dose/Route: 2.5 mg Instruction: 1 x 2.5 mg tablet Condition: Saturday Dose/Route: 2.5 mg Instruction: 1 x 2.5 mg tablet Condition: Dose/Route: 2.5 mg Instruction: 1 x 2.5 mg tablet Condition: Saturday Dose/Route: 2.5 mg Instruction: 1 x 2.5 mg tablet Condition: Saturday Dose/Route: 2.5 mg Instruction: 1 x 2.5 mg tablet Condition: Saturday (Week Two) Dose/Route: 5 mg Instruction: 2 x 2.5 mg tablets Condition: Saturday Dose/Route: 2.5 mg Instruction: 1 x 2.5 mg tablet Condition: Saturday Dose/Route: 2.5 mg Instruction: 1 x 2.5 mg tablet Condition: Saturday Dose/Route: 2.5 mg Instruction: 1 x 2.5 mg tablet Condition: Dose/Route: 2.5 mg Instruction: 1 x 2.5 mg tablet Condition: Saturday Dose/Route: 2.5 mg Instruction: 1 x 2.5 mg tablet Condition: Saturday Dose/Route: 2.5 mg Instruction: 1 x 2.5 mg tablet Protocol Text: Adjustment Start Date: Saturday11/04/23 INR Value: 2.3 INR Date: 11/04/23 Recheck Date: 12/02/23 Additional Instructions: REVIEW FOOD LIST WEEKLY, EAT A MIX OF FRUITS AND VEGETABLES DURING EVERY WEEK Rx Instructions: taking 2.5mg x 6, 5mg x 1sunday warfarin 5 mg Tablet 5 mg PO BELTRAN@1800 vitamin B complex Tablet 1 tab PO DAILY omeprazole 20 mg capsule,delayed release(DR/EC) 20 mg PO BID@0630,1630 ascorbate calcium (vitamin C) 500 mg tablet 500 mg PO DAILY zinc gluconate 50 mg tablet 50 mg PO DAILY ywyacfwwudss-Ab-uvus-minerals Tablet 1 tab PO DAILY aspirin [Noel Low Dose Aspirin] 81 mg tablet,delayed release (DR/EC) 81 mg PO DAILY Print Language: Serbian
[2023-11-30 16:39] LABS: Hematocrit 37.8 % (37.0-47.0); Hemoglobin 12.6 g/dl (12.0-16.0); Mean Corpuscular HGB Conc 33.3 g/dl (31.0-35.0); Mean Corpuscular Hemoglobin 29.8 pg (27.0-33.0); Mean Corpuscular Volume 89.4 fL (80.0-98.0); Mean Platelet Volume 10.6 fL (9.4-12.3); Platelet Count 145 X10*3/uL (160-400); Red Blood Count 4.23 X10*6/uL (4.20-5.50); Red Cell Distribution Width 14.9 % (11.0-16.0); White Blood Count 5.5 X10*3/uL (4.8-10.8)
[2023-11-30 16:46] LABS: INTERNATIONAL NORM RATIO 1.4 (0.9-1.1); Prothrombin Time 17.1 SEC (11.1-13.3)
[2023-11-30 17:02] LABS: Anion Gap 15 (12-20); Blood Urea Nitrogen 13 mg/dL (9-16); Carbon Dioxide 30 mmol/L (22-29); Chloride 104 mmol/L (96-108); Creatinine Clr Calc Pharmacy 54.7; Estimated Glomerular Filt Rate > 60; Glucose Random 106 mg/dL (60-115); Potassium 3.8 mmol/L (3.3-5.1); Sodium 145 mmol/L (135-145)
[2023-11-30 18:21] VITALS: BP 112/58; PULSE 87; RESP 19; TEMP 36.5; O2SAT 96
[2023-11-30] MEDS: traMADoL HCL 50 MG TABLET PO (19:14)
[2023-11-30 23:16] VITALS: BP 120/53; PULSE 75; RESP 18; TEMP 36.6; O2SAT 95
[2023-11-30] MEDS: oxyCODONE HCl Immed Release 5 MG TABLET PO (23:42)
--- NOTE | 2023-12-01 01:20 | PC.NURSE ---
Patient is alert and oriented x3, VSS. Pain in left knee has been ranging from 3-7/10. Patient medicated with Oxycodone 5 mg PO with good relief, knee immobilizer applied to left knee, patient tolerated well. Patient has been utilizing pure wick ED to prevent skin break down and promote comfort. Patient transferred to overflow 5, report given to overflow RN.
--- NOTE | 2023-12-01 01:31 | MHC.EDTECH ---
Patient refused labs
--- NOTE | 2023-12-01 04:25 | PC.NURSE ---
Pt arrived from the ED on a stretcher. She is AOx3, able to make her needs known. Left knee is bruised, states a few days ago she shut the bathroom door on it. Knee immobilizer placed on pt in the ED. Belongings are bedside per pt's request. Call valentine within reach. Purewick being utilized. Safety maintained throughout shift.
[2023-12-01 05:06] VITALS: BP 131/73; PULSE 82; RESP 14; TEMP 36.1; O2SAT 93
[2023-12-01 07:38] VITALS: BP 143/78; PULSE 79; RESP 14; O2SAT 92
--- NOTE | 2023-12-01 08:46 | PHA.MEDREC ---
Pharmacy Consult ? Medication Reconciliation Pharmacy has completed the medication reconciliation.Med rec completed by nursing, confirmed with pharmacy claim history and patients list from home. Patient confirmed that she takes 1 and 1/2 tablet of her warfarin on sundays.
[2023-12-01] MEDS: Aspirin Enteric Coated 81 MG TABLET.DR PO (08:51)
[2023-12-01] MEDS: amLODIPine Besylate 5 MG TABLET PO (08:51)
[2023-12-01] MEDS: Potassium Chloride ER 10 MEQ TABLET.ER 30 MEQ PO (08:51)
[2023-12-01] MEDS: Omeprazole 20 MG CAPSULE.DR PO ×2 (08:51→16:57)
[2023-12-01 09:00] LABS: INTERNATIONAL NORM RATIO 1.3 (0.9-1.1); Prothrombin Time 16.1 SEC (11.1-13.3)
[2023-12-01] MEDS: Ascorbic Acid 500 MG TABLET PO (09:20)
[2023-12-01] MEDS: Atorvastatin Calcium 80 MG TABLET PO (09:20)
[2023-12-01] MEDS: Furosemide 40 MG TABLET PO (09:20)
[2023-12-01] MEDS: atenoloL 50 MG TABLET PO (09:20)
[2023-12-01] MEDS: Multivitamin TABLET 1 TAB PO (09:20)
[2023-12-01 12:00] VITALS: BP 137/73; PULSE 76; RESP 18; TEMP 36.5; O2SAT 95
--- NOTE | 2023-12-01 14:05 | MHC.CM.PN ---
EMR REVIEWED, CM RECIEVED CM CONSULT FROM ED PROVIDER JASMYN ORR, CM MET W/PT W/LEFT TIBIAL PLATEAU FX, PT REPORTS SHE WOULD LIKE INPT REHAB SHE DOES NOT THINK SHE WILL BE ABLE TO MANAGE AT HOME, PT RECENT ADMISSION LAST WEEK HOWEVER DID NOT HAVE QUALIFYING STAY, REF PLACED TO [facility] AND [facility] WILL FOLLOW UP TOMORROW 12/01, CM AWAITING RESPONSE FROM [facility] WHICH WOULD BE PT'S PREFERRED AR SHE HAS BEEN THERE AFTER HER R TIBIAL PLATEAU FX. PT/OT EVALS PENDING. PT TYPICALLY USES A CANE AT HOME HOWEVER DOES HAVE WALKER WELL, NO HOME SERVICES HOWEVER PT DOES HAVE A DTR JHON WHO IS HCP AND ASSISTS PT AND WHEN NEEDED.
--- NOTE | 2023-12-01 16:00 | MHC.EDTECH ---
This pct assumed care of Patient at 1500 ,Patient son at bedside ,Pure wick empty 1000 ml urine ,Patient clean and dry ,Patient said she comfortable does not want to be reposition .call valentine within Pt reach .
[2023-12-01] MEDS: Warfarin Sodium 1.25 MG HALFTAB 3.75 MG PO (18:23)
[2023-12-01 19:20] VITALS: BP 143/75; PULSE 80; RESP 16; TEMP 36.6; O2SAT 97
--- NOTE | 2023-12-01 19:21 | MHC.EDTECH ---
Patient was set up with dinner ,ate 100 % of meal drank 240 ml michaela fawad ,vitals taken .
[2023-12-02 05:57] VITALS: BP 119/58; PULSE 84; RESP 18; TEMP 36.6; O2SAT 99
[2023-12-02] MEDS: Omeprazole 20 MG CAPSULE.DR PO (06:24)
[2023-12-02 07:11] LABS: INTERNATIONAL NORM RATIO 1.6 (0.9-1.1); Prothrombin Time 19.5 SEC (11.1-13.3)
[2023-12-02 09:01] VITALS: BP 119/58; PULSE 84; O2SAT 99
[2023-12-02] MEDS: Aspirin Enteric Coated 81 MG TABLET.DR PO (09:12)
[2023-12-02] MEDS: Atorvastatin Calcium 80 MG TABLET PO (09:12)
[2023-12-02] MEDS: Multivitamin TABLET 1 TAB PO (09:13)
[2023-12-02] MEDS: atenoloL 50 MG TABLET PO (09:13)
[2023-12-02] MEDS: amLODIPine Besylate 5 MG TABLET PO (09:13)
[2023-12-02] MEDS: Ascorbic Acid 500 MG TABLET PO (09:14)
[2023-12-02] MEDS: Potassium Chloride ER 10 MEQ TABLET.ER 30 MEQ PO (09:14)
[2023-12-02] MEDS: Furosemide 40 MG TABLET PO (09:15)
--- NOTE | 2023-12-02 09:57 | PC.NURSE ---
this RN resumed care of pt at 0645. alert and oriented x 4. morning medication administered whole w/ water. no difficulties in swallowing noted. pt ate approx. 75% of breakfast. pt's grandson bedside visiting/present for support. PT eval completed. 2:1 assist needed to the walker as pt was c/o increased pain when attempting to utilize walker. per PT, STR is recommended for pt. pt verbalizing she wants to go to [facility] in [place] for STR. per CM notes - CM aware of this request. knee immobilizer in place on LLE. when attempting to ambulate pt out of bed - pt seemingly dyspneic w/ exertion. pt placed on 2L via NC for supplemental oxygen to promote comfort. pt repositioned to comfort. pt now resting on RA in no apparent distress. lungs CTA. no sob/wob noted. respirations even/unlabored. plan of care ongoing. call vaelntine placed within reach.
--- NOTE | 2023-12-02 11:33 | MHC.CM.PN ---
Addendum entered by Ninoska Bailey 12/02/23 11:45: PT IS AWARE OF DC, SHE SAYS SHE WILL UPDATE HER GRANDSON Original Note: [facility] OFFERING, PT STATES THIS IS HER PREFERRED FACILITY BLS TRANSPORT BOOKED FOR 1330 WITH [facility]
--- NOTE | 2023-12-02 12:25 | PC.NURSE ---
Called [facility] to give RN to RN report, no answer, message left.
--- NOTE | 2023-12-02 12:43 | PC.NURSE ---
RN to RN phone report given to RN at [facility], all questions answered.
[2023-12-02 12:59] VITALS: BP 102/53; PULSE 88; RESP 18; O2SAT 95
[2023-12-02] MEDS: oxyCODONE HCl Immed Release 5 MG TABLET PO (13:01)
== END 2023-12-02 13:29 ==
PROVIDERS: Physician Assistant; Emergency Provider Emergency Medicine; PCP Internal Medicine
DX: S82.142A Displaced bicondylar fracture of left tibia, initial encounter for closed fracture (principal); W19.XXXA Unspecified fall, initial encounter; I13.0 Hypertensive heart and chronic kidney disease with heart failure and stage 1 through stage 4 chronic kidney disease, or unspecified chronic kidney disease; N18.30 Chronic kidney disease, stage 3 unspecified; I50.9 Heart failure, unspecified; E78.5 Hyperlipidemia, unspecified; I48.20 Chronic atrial fibrillation, unspecified; Y93.89 Activity, other specified; Y92.9 Unspecified place or not applicable; Y99.9 Unspecified external cause status; Z87.891 Personal history of nicotine dependence
CPT/HCPCS: 36415; 71045; 73552; 73560; 73700; 80048; 85027; 85610; 97162; 99284; 99285

== ENCOUNTER 2023-12-13 08:12 | Outpatient (AMB) | payer MEDICARE, BC, SELFPAY ==
--- NOTE | 2023-12-13 08:19 | A.OFFVIS_ITS ---
Intake Visit Reasons: FC- LT knee tibial plateau fx Intake Note: 4 5 days she was in the torrez to leave the restroom she pulled the door and the door and hit her knee missed step and heard a crack Currently not Allergies acetaminophen [From Vicodin] Allergy (Intermediate, Verified 11/30/23 15:26) per patient hydrocodone [From Vicodin] Allergy (Mild, Verified 11/30/23 15:26) CHEST PAIN HPI HPI FC- LT knee tibial plateau fx: Details: 83-year-old female who presents in the office today, as a new patient, for evaluation of left knee pain. The patient presented to the emergency department on 11/30/2023 status post trying to step up a stair and heard a loud pop.?She reports a secondary injury when slamming the bathroom door on her left knee 4-5 days prior to presenting to the ED.?She was placed in a knee immobilizer and instructed to remain non-weight bearing. ? ? Per the ED note, the patient lives at home with her , whom she is the sole caregiver for. The case worker was contacted, and the patient was?referred to [facility].? ? While in the office today, the patient presents with a left knee immobilizer. [facility] Medical History Chronic atrial fibrillation Chronic anticoagulation Obesity CKD (chronic kidney disease) stage 3, GFR 30-59 ml/min Nephrolithiasis, uric acid Hyperlipidemia HTN (hypertension) A-fib GORDON (obstructive sleep apnea) COPD (chronic obstructive pulmonary disease) Pulmonary HTN Severe mitral regurgitation Thiamine deficiency Osteoporosis Surgical History Hx of hernia repair History of open reduction and internal fixation (ORIF) procedure Family History Father No problems noted. Mother No problems noted. Maternal Aunt Breast cancer Social History Household Members: Spouse Housing: House Do you presently have visiting nurse or other home services: No Alcohol intake: never Patient Tobacco Use Status: Former Tobacco user Tobacco use type: Cigarette e-Cigarette/Vaping Use: Never Used Second Hand Smoke Exposure: No Advance Directives Date on File: 11/28/23 service: No Current occupational status: retired Cognitive needs: No Hearing needs: No Vision needs: No Review of Systems Const All systems reviewed & are unremarkable except as noted in HPI and below Physical Exam Const General: cooperative, healthy appearing and no acute distress Orientation/consciousness: patient oriented x3 Resp Effort & Inspection: normal respiratory effort and able to speak in complete sentences Cardio Rate: regular rate Peripheral pulses: Peripheral pulses 2+ throughout GI Palpation (GI): Soft to palpation Skin General skin exam: no rashes or lesions noted Lesions: no lesions Rashes: no rashes Neuro General: patient oriented x3 Extrem Other: Left knee: Moderate effusion. Tenderness to palpation along the lateral tibial plateau. Able to slightly flex and extend but is limited due to pain. Able to dorsiflex and plantarflex. Pedal pulse intact. Sensation intact.? 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 The patient presented to the emergency department on 11/30/2023 status post trying to step up a stair and heard a loud pop.?She reports a secondary injury when slamming the bathroom door on her left knee 4-5 days prior to presenting to the ED.?She was placed in a knee immobilizer and instructed to remain non-weight bearing. ? ? Per the ED note, the patient lives at home with her , whom she is the sole caregiver for. The case worker was contacted, and the patient was?referred to [facility].? ? While in the office today, the patient presents with a left knee immobilizer. ? The case was discussed with Dr. Trujillo who was available, but did not see the patient with me. The patient was transitioned into a left knee ACL brace, off the shelf. We discussed the various treatment options including surgical versus non-surgical management. The patient can be managed with or without surgery based on her recent imaging findings. Nonsurigcal treatment is recommended due to patient age, and comorbidities. Rehab did not provide any paperwork for instruction of care. I have given the patient an office note with further treatment instructions that she can deliver back to the facility when she returns after today's visit. Instructions include that the patient should remain non-weight bearing on the left lower extremity for the next 3 months, painless ROM is okay with no restrictions, and when ambulating left knee ACL brace should be locked in extension. Follow-up in 6-weeks with x-rays, or sooner if needed.? ? CT of the left knee, which was obtained on 11/30/2023, revealed:? 1. Acute lateral tibial plateau fracture with 0.4 cm depression and fracture lucencies involving the lateral tibial tubercle.? 2. Moderate to large joint effusion/lipohemarthrosis.? ? X-rays of the left knee, which was obtained on 11/30/2023, revealed:? 1. Fracture of the lateral tibial plateau with associated? lipohemarthrosis. CT can be helpful for further evaluation of the fracture.? 2. Intramedullary rubi within the femur. Patient Instructions: Scribed by Judie Bauman medical administrative specialist, for Holli Arreola PA-C on 12/13/2023 at?8:30 AM EST.? Coding Level of Care Code Est Pt Level 4 (06725) Diagnoses A-fib I48.91 Severe mitral regurgitation I34.0 Current use of anticoagulant therapy Z79.01 Closed fracture of left tibial plateau S82.142A CPT Codes Fracture Care - Fracture Billing Code: Fracture Billing Code ([id number])
== END 2023-12-13 09:12 | disposition home or self-care (01) ==
PROVIDERS: PCP Internal Medicine; Visit Provider Physician Assistant
DX: S82.142A Displaced bicondylar fracture of left tibia, initial encounter for closed fracture (principal); I48.91 Unspecified atrial fibrillation; I34.0 Nonrheumatic mitral (valve) insufficiency; Z79.01 Long term (current) use of anticoagulants
CPT/HCPCS: 99213

== ENCOUNTER → 2023-12-13 08:12 | Outpatient (BNVA) | payer MEDICARE, BC, SELFPAY | PROVIDERS: PCP Internal Medicine; Visit Provider Physician Assistant | DX: S82.142A Displaced bicondylar fracture of left tibia, initial encounter for closed fracture (principal); I34.0 Nonrheumatic mitral (valve) insufficiency; I48.91 Unspecified atrial fibrillation; Z79.01 Long term (current) use of anticoagulants | CPT/HCPCS: 99212 ==

== ENCOUNTER 2024-01-20 11:57 | Outpatient (REF) | payer MEDICARE, BC, SELFPAY ==
--- NOTE | ~2024-01-20 | XR_ITS ---
EXAMINATION: XR KNEE, LEFT CLINICAL INFORMATION: M25.569 - Pain in unspecified knee COMPARISON: Knee radiographs 11/30/2023 TECHNIQUE: 3 views of the knee FINDINGS: Partially imaged or evident of the distal femur. Disuse osteopenia. Again seen is a depressed fracture of the lateral tibial plateau in similar alignment. Moderate degenerative changes of the knee with loss of medial and patellofemoral compartment joint space.. Resolution of the previously seen lipohemarthrosis. Atherosclerotic vascular calcification. XR/XR knee LT 3V IMPRESSION: 1. Again seen is a depressed fracture of the lateral tibial plateau in similar alignment. Resolution of the previously seen lipohemarthrosis. 2. Moderate degenerative changes of the knee. Electronically signed by: Lucy Thomas MD 02/13/2024 09:13 PM EDT
== END 2024-01-20 11:58 | disposition home or self-care (01) ==
LOC: HO.HOSX 11:57
PROVIDERS: Visit Provider Physician Assistant
DX: M25.562 Pain in left knee (principal); S82.142D Displaced bicondylar fracture of left tibia, subsequent encounter for closed fracture with routine healing; I48.91 Unspecified atrial fibrillation; I34.0 Nonrheumatic mitral (valve) insufficiency; Z79.01 Long term (current) use of anticoagulants
CPT/HCPCS: 73562; 99212

== ENCOUNTER 2024-01-20 12:51 | Outpatient (AMB) | payer MEDICARE, BC, SELFPAY ==
--- NOTE | 2024-01-20 13:07 | MHC.OFFVIS ---
Intake Visit Reasons: OV-LT knee tibial plateau-follow up Intake Note: Ramona an 83 year old female who presents today on a stretcher for a follow up of left knee tibial plateau. Patient reports she is doing well, states very little pain that has been tolerable. She continues to wear ACL knee brace. Allergies acetaminophen [From Vicodin] Allergy (Intermediate, Verified 01/20/24 13:21) per patient hydrocodone [From Vicodin] Allergy (Mild, Verified 01/20/24 13:21) CHEST PAIN HPI HPI OV-LT knee tibial plateau-follow up: Details: 83-year-old female who presents in the office today for a follow-up of a left tibial fracture. I last saw the patient in the office on 12/13/23 when she was placed in an ACL brace. She was given an office note with instructions for PT to be done at the rehab facility. Instructions include that the patient should remain non-weight bearing on the left lower extremity for the next 3 months, painless ROM is okay with no restrictions, and when ambulating left knee ACL brace should be locked in extension.? ? While in the office today, the patient reports she is doing well. She claims to have very little pain, but states it is tolerable. ? [facility] Medical History Chronic atrial fibrillation Chronic anticoagulation Obesity CKD (chronic kidney disease) stage 3, GFR 30-59 ml/min Nephrolithiasis, uric acid Hyperlipidemia HTN (hypertension) A-fib GORDON (obstructive sleep apnea) COPD (chronic obstructive pulmonary disease) Pulmonary HTN Severe mitral regurgitation Thiamine deficiency Osteoporosis Surgical History Hx of hernia repair History of open reduction and internal fixation (ORIF) procedure Family History Father No problems noted. Mother No problems noted. Maternal Aunt Breast cancer Social History Household Members: Spouse Housing: House Do you presently have visiting nurse or other home services: No Alcohol intake: never Patient Tobacco Use Status: Former Tobacco user Tobacco use type: Cigarette e-Cigarette/Vaping Use: Never Used Second Hand Smoke Exposure: No Advance Directives Date on File: 11/28/23 service: No Current occupational status: retired Cognitive needs: No Hearing needs: No Vision needs: No Review of Systems Const All systems reviewed & are unremarkable except as noted in HPI and below Physical Exam Const General: cooperative, healthy appearing and no acute distress Resp Effort & Inspection: normal respiratory effort and able to speak in complete sentences Cardio Rate: regular rate Peripheral pulses: Peripheral pulses 2+ throughout GI Palpation (GI): Soft to palpation Skin Lesions: no lesions Rashes: no rashes Extrem Other: Left knee: Normal to inspection. No ecchymosis, erythema, or joint effusion. Slightly able to dorsiflex and plantarflex the left foot. Sensation is intact. Pedal pulse intact. 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 Pinon is an 83-year-old female who presents in the office today for a follow-up of a left tibial fracture. I last saw the patient in the office on 12/13/23 when she was placed in an ACL brace. She was given an office note with instructions for PT to be done at the rehab facility. Instructions include that the patient should remain non-weight bearing on the left lower extremity for the next 3 months, painless ROM is okay with no restrictions, and when ambulating left knee ACL brace should be locked in extension. ? ?? While in the office today, the patient reports she is doing well. She claims to have very little pain, but states it is tolerable.?? ? The patient will continue to remain non-weight bearing until she is three months post injury. This should be around 03/01/24. She was placed back into the ACL brace. This will need to be locked in extension and non-weight bearing while ambulating. She can work on gentle ROM with no restrictions. Follow-up will be on 02/27 with repeat x-rays, or sooner if needed. ? ? X-rays of the left knee which were obtained while in the office today and were reviewed by me, Holli Arreola PA-C, revealed routine healing of a left tibial fracture. ? Orders: Orders XR knee LT 3V Today M25.569 - Pain in unspecified knee Patient Instructions: Scribed by Charleen Lazo, health care / medical job titles, for Holli Arreola PA-C on 01/20/2024 at 12:59 pm, EST.? Coding Level of Care Code Global (54304) Diagnoses Closed fracture of left tibial plateau S82.142A A-fib I48.91 Severe mitral regurgitation I34.0 Current use of anticoagulant therapy Z79.01
== END 2024-01-20 14:15 | disposition home or self-care (01) ==
PROVIDERS: PCP Internal Medicine; Visit Provider Physician Assistant
DX: S82.142A Displaced bicondylar fracture of left tibia, initial encounter for closed fracture (principal); I48.91 Unspecified atrial fibrillation; I34.0 Nonrheumatic mitral (valve) insufficiency; Z79.01 Long term (current) use of anticoagulants
CPT/HCPCS: 99213

== ENCOUNTER → 2024-02-13 11:59 | Outpatient (BNVA) | payer MEDICARE, BC, SELFPAY | PROVIDERS: PCP Internal Medicine; Visit Provider Internal Medicine ==

== ENCOUNTER 2024-02-14 11:25 | Outpatient (AMB) | payer MEDICARE, BC, SELFPAY ==
--- NOTE | 2024-02-14 11:26 | A.OFFVIS_ITS ---
Intake Visit Reasons: follow up Intake Note: Allergies: vicodin Medication: potassium, warfarin Visit Reason:Follow up appointment Allergies acetaminophen [From Vicodin] Allergy (Intermediate, Verified 02/20/24 08:23) per patient hydrocodone [From Vicodin] Allergy (Mild, Verified 02/20/24 08:23) CHEST PAIN HPI Comments Details: 02/14/24--Ramona is an 83-year-old female who presents today to the office for a follow-up. She is here with her son. She was seen last in the hospital in November,. She was hospitalized with UTI and CT imaging noted right hydronephrosis secondary to obstructing proximal ureteral stone 1.2 cm. She is status post right ureteral stent on 11/26/2023. The patient states that since hospitalization she has been in [place] [facility] [place]. She presents with an ACL knee brace and is being followed by Orthopedics. 11/25/23-CTAP: KIDNEYS AND URETERS: Mild right-sided hydroureteronephrosis secondary to a 1.2 cm calculus along the right proximal ureter. Additional right renal calculi noted measuring up to 3 mm. No left-sided nephrolithiasis or hydronephrosis. I have discussed check a KUB. Patient will need further stone management. Review of chart: 04/15/2023?Ramona is an 82-year-old female who presents today to the office for a follow-up. She is followed today for US results. She was last seen by me on 10/11/2022 for bilateral kidney stones. I discussed risks and benefits of ESWL procedure with the patient. The patient wants to continue with monitoring for renal calculi. Renal US was ordered. She denies any blood in the urine or burning with urination. I discussed the renal US results from 03/14/2023 revealed bilateral kidneys stones. I did discuss that I feel that US is not accurate in terms of the size of the kidney stones. I reviewed the blood work results from 01/04/2023 revealed BUN was 13 and Creatinine was 0.83. 04/15/23--UA?leukocytes: 15 Rainer; blood: 3 +; protein: 1 +. Imaging: CTAP results reviewed--09/12/22-- findings of punctate nonobstructing calculus in the posterior left upper kidney. 6 x 3 mm nonobstructing calculus in the posterior right upper kidney. [facility] Medical History Chronic atrial fibrillation Chronic anticoagulation Obesity CKD (chronic kidney disease) stage 3, GFR 30-59 ml/min Nephrolithiasis, uric acid Hyperlipidemia HTN (hypertension) A-fib GORDON (obstructive sleep apnea) COPD (chronic obstructive pulmonary disease) Pulmonary HTN Severe mitral regurgitation Thiamine deficiency Osteoporosis Surgical History Hx of hernia repair History of open reduction and internal fixation (ORIF) procedure Family History Father No problems noted. Mother No problems noted. Maternal Aunt Breast cancer Social History Household Members: Spouse Housing: House Do you presently have visiting nurse or other home services: No Alcohol intake: never Patient Tobacco Use Status: Former Tobacco user Tobacco use type: Cigarette e-Cigarette/Vaping Use: Never Used Second Hand Smoke Exposure: No Advance Directives Date on File: 11/28/23 service: No Current occupational status: retired Cognitive needs: No Hearing needs: No Vision needs: No Review of Systems Const All systems reviewed & are unremarkable except as noted in HPI and below Reports no additional complaints Eyes Reports no additional complaints ENT Reports no additional complaints Card Reports no additional complaints Resp Reports no additional complaints GI Reports no additional complaints Reports as per HPI Musc Reports no additional complaints Skin/Breast Reports system reviewed and no additional complaints, except as documented Neuro Reports no additional complaints Psych Reports no additional complaints Endo Reports no additional complaints Pedro/Lymph Reports no additional complaints Aller/Immun Reports no additional complaints Results Reviewed Results Reviewed: Date of Service: 11/25/23 CT ABDOMEN AND PELVIS WITHOUT CONTRAST CLINICAL INFORMATION: Abdominal pain radiating to right flank history of stones COMPARISON: 7 renal from 03/04/2023, CT abdomen from 09/12/2022 TECHNIQUE: Multidetector volumetric imaging was performed from the superior aspect of the liver through the pubic symphysis. Sagittal and coronal reformatted images were obtained on the technologist's workstation. This CT examination was performed using dose optimization techniques as appropriate, variously including the following: *Automated exposure control *Adjustment of mA and/or kV according to patient size (this includes techniques or standardized protocols for targeted exams where dose is matched to indication/reason for exam; i.e. extremities or head) *Use of iterative reconstruction technique DLP: 791 mGy-cm FINDINGS: LUNG BASES: Trace bilateral pleural effusions, right greater than left. Pleural calcifications bilaterally along the posterior aspect of the bilateral lower lobes. Bronchial thickening. Partially visualized pacer leads. Valvular calcifications. Respiratory motion artifact limits evaluation. LIVER, GALLBLADDER, AND BILIARY TREE: The liver is normal in size, shape, and attenuation. No focal hepatic lesion or biliary ductal dilatation is present. The gallbladder is surgically absent. PANCREAS: Unremarkable. SPLEEN: Multiple calcified granulomas of the spleen. 1.1 cm splenule. ADRENAL GLANDS: Unremarkable. KIDNEYS AND URETERS: Mild right-sided hydroureteronephrosis secondary to a 1.2 cm calculus along the right proximal ureter. Additional right renal calculi noted measuring up to 3 mm. No left-sided nephrolithiasis or hydronephrosis. BLADDER: Unremarkable. GASTROINTESTINAL TRACT: Small hiatal hernia. Colonic diverticulosis without acute diverticulitis. The small and large bowel are unremarkable. The appendix is unremarkable. ABDOMINAL WALL: Redemonstrated laxity of the abdominal wall without discrete hernia. LYMPH NODES: No enlarged lymph nodes per size criteria. VASCULAR: Abdominal aorta is nonaneurysmal. Atherosclerotic calcifications of the abdominal aorta and its branches. PELVIC VISCERA: Anteverted uterus. OSSEOUS STRUCTURES: Osteopenia. Multilevel degenerative changes of the thoracolumbar lumbosacral spine. Right hip hardware, grossly intact. Partially visualized retrograde left femoral intramedullary nail, grossly intact. IMPRESSION: 1. Mild right-sided hydroureteronephrosis secondary to a 1.2 cm calculus along the right proximal ureter. Additional right renal calculi noted measuring up to 3 mm. 2. Trace bilateral pleural effusions, right greater than left. Pleural calcifications bilaterally along the posterior aspect of the bilateral lower lobes. 3. Status post cholecystectomy. 4. Multiple calcified granulomas of the spleen. 5. Small hiatal hernia. 6. Colonic diverticulosis without acute diverticulitis. 7. Osteopenia. Date of Service: 03/14/23 EXAMINATION: US RETROPERITONEAL LIMITED (RENAL ONLY) CLINICAL INFORMATION: Calculus of kidney. Right kidney 6 mm stone, punctate left kidney stones. COMPARISON: CT abdomen and pelvis 09/12/2022. Ultrasound abdomen limited 03/05/2022 and 09/08/2021. FINDINGS: RIGHT KIDNEY: 10.1 x 4.1 x 4.4 cm (SAG x AP x TRV). The kidney is normal in size, contour, and echogenicity. Renal cortical thickness is normal. Stone or cluster of stones in the upper pole measuring 9 x 5 x 9 mm and 5 x 3 x 4 mm. No focal parenchymal lesions or hydronephrosis. LEFT KIDNEY: 11.8 x 4.3 x 4.8 cm (SAG x AP x TRV). The kidney is normal in size, contour, and echogenicity. Renal cortical thickness is normal. Small stones measuring 2 to 3 mm in the mid and lower pole. 2.4 x 2.1 x 2.2 cm simple cyst in the lower pole. No imaging follow-up recommended. No hydronephrosis. IMPRESSION: Bilateral renal stones, right greater than left. Date of Service: 09/12/22 EXAMINATION: CT ABDOMEN AND PELVIS WITHOUT CONTRAST CLINICAL INFORMATION: Calculus of kidney. COMPARISON: CT abdomen and pelvis 08/24/2022. FINDINGS: LUNG BASES: Increasing small bilateral pleural effusions and atelectasis at the lung bases compared to 08/24/2022. LIVER, GALLBLADDER, AND BILIARY TREE: The liver is normal in size, shape, and attenuation. No focal hepatic lesion or biliary ductal dilatation is present. Cholecystectomy. PANCREAS: No discrete pancreatic mass. No ductal dilatation. SPLEEN: Calcified granulomas. ADRENAL GLANDS: No adrenal mass. KIDNEYS AND URETERS: Punctate nonobstructing calculus in the posterior left upper kidney. 6 x 3 mm nonobstructing calculus in the posterior right upper kidney. No hydronephrosis. BLADDER: Unremarkable. GASTROINTESTINAL TRACT: Small hiatal hernia. The small bowel is normal in caliber. The appendix appears normal. There is diverticulosis without evidence of diverticulitis. ABDOMINAL WALL: Generalized laxity of the abdominal wall without significant discrete hernia. LYMPH NODES: No lymphadenopathy. VASCULAR: No aortic aneurysm. Moderate aortoiliac calcium. PELVIC VISCERA: The uterus and adnexa are unremarkable. OSSEOUS STRUCTURES: Degenerative changes in the spine. Right hip fracture ORIF. IMPRESSION: Nonobstructing bilateral renal calculi as above. Increasing small bilateral pleural effusions and bibasilar atelectasis. Compared to CT 08/24/2022. Assessment & Plan Assessment & Plan (1) Ureteral stone: Code(s): N20.1 - Calculus of ureter Category: Medical (2) Bilateral kidney stones: Comment: Follow-up with [facility] Code(s): N20.0 - Calculus of kidney Category: Medical (3) Ureteral stent present: Code(s): Z96.0 - Presence of urogenital implants Category: Medical Plan pt will need further stone management. Will check KUB today. pt is on coumadin, will need medical clearance. Orders: Orders AMB Urinalysis Automated 02/14/24 N20.0 - Calculus of kidney AMB Post Void Residual by ultrasound 02/14/24 N20.0 - Calculus of kidney XR KUB 02/14/24 N20.0 - Calculus of kidney, N20.1 - Calculus of ureter, Z96.0 - Presence of urogenital implants Patient Instructions: The patient had an opportunity to ask questions regarding treatment plan. The patient expressed understanding and agreement with the above treatment plan. The patient is aware they should contact our office by phone for worsening of their current condition or the appearance of new symptoms. Compliance is encouraged with any medications and followup testing that is ordered. It is a privilege to be allowed the opportunity to participate in the urologic care of your patient. If you have any questions or concerns regarding treatment for the above conditions please do not hesitate to contact me. The office telephone contact is [phone]. This note is constructed in part using voice recognition software. While every effort has been made to ensure accuracy information security risk analyst errors may have been included. Yours sincerely, Jerzy Eng MD Coding Level of Care Code Est Pt Level 4 (31024) Diagnoses Ureteral stone N20.1 Bilateral kidney stones N20.0 Ureteral stent present Z96.0
== END 2024-02-14 12:02 | disposition home or self-care (01) ==
PROVIDERS: PCP Internal Medicine; Visit Provider Urology
DX: N20.1 Calculus of ureter (principal); N20.0 Calculus of kidney; Z96.0 Presence of urogenital implants
CPT/HCPCS: 99214

== ENCOUNTER 2024-02-14 11:25 | Outpatient (REF) | payer MEDICARE, BC, SELFPAY ==
--- NOTE | ~2024-02-14 | XR_ITS ---
EXAMINATION: XR ABDOMEN KUB CLINICAL INDICATION: Status post right ureteral stent placement. COMPARISON: CT abdomen/pelvis 11/25/2023. TECHNIQUE: AP view of the abdomen. FINDINGS: Right-sided ureteric stent projecting from the expected location of the renal pelvis to the bladder, no evidence of catheter fracture or kinking. Previously described 1.2 cm calculus in the proximal right ureter is not seen. No definite renal calculi. Nonobstructive bowel gas pattern. Right upper quadrant cholecystectomy clips. No acute osseous findings. Persistent small left-sided pleural effusion with associated compressive atelectasis. Partially seen cardiac pacer leads and mitral annuloplasty. Partially seen right femoral hardware with chronic deformity of the right intertrochanteric femur. XR/XR KUB IMPRESSION: 1. Right-sided ureteric stent in expected position. 2. No definite renal calculi. 3. Nonobstructive bowel gas pattern. 4. Persistent small left-sided pleural effusion. Electronically signed by: Elma Van MD 02/14/2024 03:31 PM EDT
== END 2024-02-14 11:26 | disposition home or self-care (01) ==
LOC: HO.XRAY 11:25
PROVIDERS: PCP Internal Medicine; Visit Provider Urology
DX: N20.0 Calculus of kidney (principal); N20.1 Calculus of ureter; Z96.0 Presence of urogenital implants
CPT/HCPCS: 74018; 99212

== ENCOUNTER 2024-02-20 08:21 | Outpatient (AMB) | payer MEDICARE, BC, SELFPAY ==
--- NOTE | 2024-02-20 08:21 | A.OFFVIS_ITS ---
Intake Visit Reasons: 1w/KUB Intake Note: Patient is Present for Telephone Follow Up KUB Results Urology Med: None Antibiotic Allergy: None Blood Thinner: Aspirin, Warfarin Dispatcher Relay Required: No Accompanied by: Self / Same As Patient Allergies acetaminophen [From Vicodin] Allergy (Intermediate, Verified 02/20/24 08:23) per patient hydrocodone [From Vicodin] Allergy (Mild, Verified 02/20/24 08:23) CHEST PAIN HPI Comments Details: 02/20/24--telehealth follow-up patient is status post KUB I reviewed fell and report renal calcifications are not adequately visualized. The patient had right ureteral stent placed on 11/26/23 for a 1.2 cm obstructing proximal ureteral stone. The stent has been in for a few months and I want to re- evaluate stone, I will order CT kidney stone protocol. Review of chart: 02/14/24--Ramona is an 83-year-old female who presents today to the office for a follow-up. She is here with her son. She was seen last in the hospital in November,. She was hospitalized with UTI and CT imaging noted right hydronephrosis secondary to obstructing proximal ureteral stone 1.2 cm. She is status post right ureteral stent on 11/26/2023. The patient states that since hospitalization she has been in a skilled nursing. She presents with an ACL knee brace and is being followed by Orthopedics. 11/25/23-CTAP: KIDNEYS AND URETERS: Mild right-sided hydroureteronephrosis secondary to a 1.2 cm calculus along the right proximal ureter. Additional right renal calculi noted measuring up to 3 mm. No left-sided nephrolithiasis or hydronephrosis. I have discussed check a KUB. Patient will need further stone management. 04/15/2023?Ramona is an 82-year-old female who presents today to the office for a follow-up. She is followed today for US results. She was last seen by me on 10/11/2022 for bilateral kidney stones. I discussed risks and benefits of ESWL procedure with the patient. The patient wants to continue with monitoring for renal calculi. Renal US was ordered. She denies any blood in the urine or burning with urination. I discussed the renal US results from 03/14/2023 revealed bilateral kidneys stones. I did discuss that I feel that US is not accurate in terms of the size of the kidney stones. I reviewed the blood work results from 01/04/2023 revealed BUN was 13 and Creatinine was 0.83. 04/15/23--UA?leukocytes: 15 Rainer; blood: 3 +; protein: 1 +. Imaging: CTAP results reviewed--09/12/22-- findings of punctate nonobstructing calculus in the posterior left upper kidney. 6 x 3 mm nonobstructing calculus in the post erior right upper kidney. [facility] Medical History Chronic atrial fibrillation Chronic anticoagulation Obesity CKD (chronic kidney disease) stage 3, GFR 30-59 ml/min Nephrolithiasis, uric acid Hyperlipidemia HTN (hypertension) A-fib GORDON (obstructive sleep apnea) COPD (chronic obstructive pulmonary disease) Pulmonary HTN Severe mitral regurgitation Thiamine deficiency Osteoporosis Surgical History Hx of hernia repair History of open reduction and internal fixation (ORIF) procedure Family History Father No problems noted. Mother No problems noted. Maternal Aunt Breast cancer Social History Household Members: Spouse Housing: House Do you presently have visiting nurse or other home services: No Alcohol intake: never Patient Tobacco Use Status: Former Tobacco user Tobacco use type: Cigarette e-Cigarette/Vaping Use: Never Used Second Hand Smoke Exposure: No Advance Directives Date on File: 11/28/23 service: No Current occupational status: retired Cognitive needs: No Hearing needs: No Vision needs: No Telehealth Telehealth Telehealth Platform: Telephone Location of provider rendering services: practice address Location of patient: address on file Patient Identification confirmed using: Name, : Yes Telehealth method: voice only Patient verbally consented to treatment: Yes Patient verbally consented to billing insurance company: Yes Patient informed of any privacy concerns related to visit: Yes Minutes spent on Phone/Video with Pt.: 18 Results Reviewed Results Reviewed: Date of Service: 11/25/23 CT ABDOMEN AND PELVIS WITHOUT CONTRAST CLINICAL INFORMATION: Abdominal pain radiating to right flank history of stones COMPARISON: 7 renal from 03/04/2023, CT abdomen from 09/12/2022 TECHNIQUE: Multidetector volumetric imaging was performed from the superior aspect of the liver through the pubic symphysis. Sagittal and coronal reformatted images were obtained on the technologist's workstation. This CT examination was performed using dose optimization techniques as appropriate, variously including the following: *Automated exposure control *Adjustment of mA and/or kV according to patient size (this includes techniques or standardized protocols for targeted exams where dose is matched to indication/reason for exam; i.e. extremities or head) *Use of iterative reconstruction technique DLP: 791 mGy-cm FINDINGS: LUNG BASES: Trace bilateral pleural effusions, right greater than left. Pleural calcifications bilaterally along the posterior aspect of the bilateral lower lobes. Bronchial thickening. Partially visualized pacer leads. Valvular calcifications. Respiratory motion artifact limits evaluation. LIVER, GALLBLADDER, AND BILIARY TREE: The liver is normal in size, shape, and attenuation. No focal hepatic lesion or biliary ductal dilatation is present. The gallbladder is surgically absent. PANCREAS: Unremarkable. SPLEEN: Multiple calcified granulomas of the spleen. 1.1 cm splenule. ADRENAL GLANDS: Unremarkable. KIDNEYS AND URETERS: Mild right-sided hydroureteronephrosis secondary to a 1.2 cm calculus along the right proximal ureter. Additional right renal calculi noted measuring up to 3 mm. No left-sided nephrolithiasis or hydronephrosis. BLADDER: Unremarkable. GASTROINTESTINAL TRACT: Small hiatal hernia. Colonic diverticulosis without acute diverticulitis. The small and large bowel are unremarkable. The appendix is unremarkable. ABDOMINAL WALL: Redemonstrated laxity of the abdominal wall without discrete hernia. LYMPH NODES: No enlarged lymph nodes per size criteria. VASCULAR: Abdominal aorta is nonaneurysmal. Atherosclerotic calcifications of the abdominal aorta and its branches. PELVIC VISCERA: Anteverted uterus. OSSEOUS STRUCTURES: Osteopenia. Multilevel degenerative changes of the thoracolumbar lumbosacral spine. Right hip hardware, grossly intact. Partially visualized retrograde left femoral intramedullary nail, grossly intact. IMPRESSION: 1. Mild right-sided hydroureteronephrosis secondary to a 1.2 cm calculus along the right proximal ureter. Additional right renal calculi noted measuring up to 3 mm. 2. Trace bilateral pleural effusions, right greater than left. Pleural calcifications bilaterally along the posterior aspect of the bilateral lower lobes. 3. Status post cholecystectomy. 4. Multiple calcified granulomas of the spleen. 5. Small hiatal hernia. 6. Colonic diverticulosis without acute diverticulitis. 7. Osteopenia. Date of Service: 03/14/23 EXAMINATION: US RETROPERITONEAL LIMITED (RENAL ONLY) CLINICAL INFORMATION: Calculus of kidney. Right kidney 6 mm stone, punctate left kidney stones. COMPARISON: CT abdomen and pelvis 09/12/2022. Ultrasound abdomen limited 03/05/2022 and 09/08/2021. FINDINGS: RIGHT KIDNEY: 10.1 x 4.1 x 4.4 cm (SAG x AP x TRV). The kidney is normal in size, contour, and echogenicity. Renal cortical thickness is normal. Stone or cluster of stones in the upper pole measuring 9 x 5 x 9 mm and 5 x 3 x 4 mm. No focal parenchymal lesions or hydronephrosis. LEFT KIDNEY: 11.8 x 4.3 x 4.8 cm (SAG x AP x TRV). The kidney is normal in size, contour, and echogenicity. Renal cortical thickness is normal. Small stones measuring 2 to 3 mm in the mid and lower pole. 2.4 x 2.1 x 2.2 cm simple cyst in the lower pole. No imaging follow-up recommended. No hydronephrosis. IMPRESSION: Bilateral renal stones, right greater than left. Date of Service: 09/12/22 EXAMINATION: CT ABDOMEN AND PELVIS WITHOUT CONTRAST CLINICAL INFORMATION: Calculus of kidney. COMPARISON: CT abdomen and pelvis 08/24/2022. FINDINGS: LUNG BASES: Increasing small bilateral pleural effusions and atelectasis at the lung bases compared to 08/24/2022. LIVER, GALLBLADDER, AND BILIARY TREE: The liver is normal in size, shape, and attenuation. No focal hepatic lesion or biliary ductal dilatation is present. Cholecystectomy. PANCREAS: No discrete pancreatic mass. No ductal dilatation. SPLEEN: Calcified granulomas. ADRENAL GLANDS: No adrenal mass. KIDNEYS AND URETERS: Punctate nonobstructing calculus in the posterior left upper kidney. 6 x 3 mm nonobstructing calculus in the posterior right upper kidney. No hydronephrosis. BLADDER: Unremarkable. GASTROINTESTINAL TRACT: Small hiatal hernia. The small bowel is normal in caliber. The appendix appears normal. There is diverticulosis without evidence of diverticulitis. ABDOMINAL WALL: Generalized laxity of the abdominal wall without significant discrete hernia. LYMPH NODES: No lymphadenopathy. VASCULAR: No aortic aneurysm. Moderate aortoiliac calcium. PELVIC VISCERA: The uterus and adnexa are unremarkable. OSSEOUS STRUCTURES: Degenerative changes in the spine. Right hip fracture ORIF. IMPRESSION: Nonobstructing bilateral renal calculi as above. Increasing small bilateral pleural effusions and bibasilar atelectasis. Compared to CT 08/24/2022. Assessment & Plan Assessment & Plan (1) Ureteral stone: Code(s): N20.1 - Calculus of ureter Category: Medical (2) Bilateral kidney stones: Comment: Follow-up with [facility] Code(s): N20.0 - Calculus of kidney Category: Medical (3) Ureteral stent present: Code(s): Z96.0 - Presence of urogenital implants Category: Medical Plan pt will need further stone management. Will check KUB today. pt is on coumadin, will need medical clearance. Orders: Orders CT kidney stone Today N20.0 - Calculus of kidney, Z96.0 - Presence of urogenital implants Coding Level of Care Code Est Pt Level 4 (25199) Diagnoses Ureteral stone N20.1 Bilateral kidney stones N20.0 Ureteral stent present Z96.0
== END 2024-02-20 11:29 | disposition home or self-care (01) ==
LOC: HO.HUSH 08:21
PROVIDERS: PCP Internal Medicine; Visit Provider Urology
DX: N20.1 Calculus of ureter (principal); N20.0 Calculus of kidney; Z96.0 Presence of urogenital implants
CPT/HCPCS: 99214

== ENCOUNTER → 2024-02-20 08:21 | Outpatient (BNVA) | payer MEDICARE, BC, SELFPAY | PROVIDERS: PCP Internal Medicine; Visit Provider Urology | DX: N20.1 Calculus of ureter (principal); N20.0 Calculus of kidney; Z96.0 Presence of urogenital implants | CPT/HCPCS: 99212 ==

== ENCOUNTER → 2024-02-24 12:07 | Outpatient (BNVA) | payer MEDICARE, BC, SELFPAY | PROVIDERS: PCP Internal Medicine; Visit Provider Internal Medicine ==

== ENCOUNTER 2024-02-28 | Outpatient (REF) | payer MEDICARE, BC, SELFPAY | END 2024-02-28 00:01 | disposition home or self-care (01) | LOC: CF | PROVIDERS: Visit Provider Physician Assistant | DX: S82.142A Displaced bicondylar fracture of left tibia, initial encounter for closed fracture (principal); I48.91 Unspecified atrial fibrillation; I34.0 Nonrheumatic mitral (valve) insufficiency; Z79.01 Long term (current) use of anticoagulants | CPT/HCPCS: 99212 ==

== ENCOUNTER 2024-02-28 11:23 | Outpatient (AMB) | payer MEDICARE, BC, SELFPAY ==
--- NOTE | 2024-02-28 11:30 | MHC.OFFVIS ---
Intake Visit Reasons: OV-LT knee tibial plateau Intake Note: Ramona an 83 year old female who presents today on a stretcher for a follow up of left knee tibial plateau. Patient reports she is doing well. No pain or discomfort at this time. Accompanied by: Son Allergies acetaminophen [From Vicodin] Allergy (Intermediate, Verified 02/28/24 11:33) per patient hydrocodone [From Vicodin] Allergy (Mild, Verified 02/28/24 11:33) CHEST PAIN HPI HPI OV-LT knee tibial plateau: Details: 83-year-old female who presents in the office today for a follow-up of a left tibial fracture. I last saw the patient on 01/20/24 when she was placed back into the ACL brace and recommended to remain non-weight bearing until 03/01/24. She was encouraged to perform gentle ROM with no restrictions. While in the office today, the patient reports she is doing well. She denies any pain or discomfort at this time. The patient has a significant history of A-fib, severe mitral regurgitation and current use of anticoagulant therapy. [facility] Medical History Chronic atrial fibrillation Chronic anticoagulation Obesity CKD (chronic kidney disease) stage 3, GFR 30-59 ml/min Nephrolithiasis, uric acid Hyperlipidemia HTN (hypertension) A-fib GORDON (obstructive sleep apnea) COPD (chronic obstructive pulmonary disease) Pulmonary HTN Severe mitral regurgitation Thiamine deficiency Osteoporosis Surgical History Hx of hernia repair History of open reduction and internal fixation (ORIF) procedure Family History Father No problems noted. Mother No problems noted. Maternal Aunt Breast cancer Social History Household Members: Spouse Housing: House Do you presently have visiting nurse or other home services: No Alcohol intake: never Patient Tobacco Use Status: Former Tobacco user Tobacco use type: Cigarette e-Cigarette/Vaping Use: Never Used Second Hand Smoke Exposure: No Advance Directives Date on File: 11/28/23 service: No Current occupational status: retired Cognitive needs: No Hearing needs: No Vision needs: No Review of Systems Const All systems reviewed & are unremarkable except as noted in HPI and below Physical Exam Const General: cooperative, healthy appearing and no acute distress Resp Effort & Inspection: normal respiratory effort and able to speak in complete sentences Cardio Rate: regular rate Peripheral pulses: Peripheral pulses 2+ throughout GI Palpation (GI): Soft to palpation Skin Lesions: no lesions Rashes: no rashes Extrem Other: Left knee: Normal to inspection. No ecchymosis, erythema, or joint effusion. Slightly able to dorsiflex and plantarflex the left foot. Sensation is intact. Pedal pulse intact. 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 Greene is a 83-year-old female who presents in the office today for a follow-up of a left tibial fracture. I last saw the patient on 01/20/24 when she was placed back into the ACL brace and recommended to remain non-weight bearing until 03/01/24. She was encouraged to perform gentle ROM with no restrictions. While in the office today, the patient reports she is doing well. She denies any pain or discomfort at this time. The patient has a significant history of A-fib, severe mitral regurgitation and current use of anticoagulant therapy. The patient was encouraged to start weight bearing as tolerated on the left lower extremity. She should remain in the brace until quad control allows it to discontinue. She will continue to work with physical therapy. The [facility] is monitoring her at home and working on her home exercise program. Follow up will be in 6 weeks, or sooner if needed. Patient Instructions: Scribed by Salena Thomas, medical staff physician, for Holli Elba DONOHUE on 02/28/24 at 11:55 am EST. Coding Level of Care Code Global (54901) Diagnoses Closed fracture of left tibial plateau S82.142A A-fib I48.91 Severe mitral regurgitation I34.0 Current use of anticoagulant therapy Z79.01
== END 2024-02-28 11:48 | disposition home or self-care (01) ==
PROVIDERS: PCP Internal Medicine; Visit Provider Physician Assistant
DX: S82.142A Displaced bicondylar fracture of left tibia, initial encounter for closed fracture (principal); I48.91 Unspecified atrial fibrillation; I34.0 Nonrheumatic mitral (valve) insufficiency; Z79.01 Long term (current) use of anticoagulants
CPT/HCPCS: 99213

== ENCOUNTER 2024-03-02 07:32 | Outpatient (REF) | payer MEDICARE, BC, SELFPAY ==
--- NOTE | ~2024-03-02 | CT_ITS ---
EXAMINATION: CT ABDOMEN AND PELVIS WITHOUT CONTRAST CLINICAL INFORMATION: Calculus of kidney COMPARISON: KUB 02/14/[address] abdomen and pelvis 11/25/2023 TECHNIQUE: Multidetector volumetric imaging was performed from the superior aspect of the liver through the pubic symphysis. This CT examination was performed using dose optimization techniques as appropriate, variously including the following: *Automated exposure control *Adjustment of mA and/or kV according to patient size (this includes techniques or standardized protocols for targeted exams where dose is matched to indication/reason for exam; i.e. extremities or head) *Use of iterative reconstruction technique DLP: 424 mGy-cm FINDINGS: LUNG BASES: Bibasilar atelectasis is present with some areas of round atelectasis with associated calcified pleural plaque. The heart is enlarged. Pacemaker wires are present. LIVER, GALLBLADDER, AND BILIARY TREE: The liver is normal in size, shape, and attenuation. No focal hepatic lesion or biliary ductal dilatation is present. The gallbladder is not seen. KIDNEYS AND URETERS: A double-J internal indwelling ureteral stent is present on the right. In the proximal ureter alongside the stent there is a 5.6 x 3.0 x 1.1 cm calculus. A single tiny punctate nonobstructing right intrarenal renal calculus is present. There is no right-sided hydronephrosis. The left kidney appears unremarkable. SPLEEN: The spleen is mildly enlarged at 12.3 cm in maximal cephalocaudad dimension. ADRENAL GLANDS: Unremarkable. PANCREAS: Unremarkable BLADDER: Unremarkable aside from the presence of the distal end of the right ureteral stent GASTROINTESTINAL TRACT: The small and large bowel are unremarkable aside from the presence of colonic diverticulosis without diverticulitis. The appendix is unremarkable. ABDOMINAL WALL: There is been a prior likely periumbilical hernia repair. Again seen is laxity of the anterior abdominal wall with diastases of the rectus muscles. LYMPH NODES: No retroperitoneal lymphadenopathy VASCULAR: Calcific atherosclerotic changes are present in the aorta and iliofemoral vessels. There is no evidence of an abdominal aortic aneurysm. PELVIC VISCERA: The uterus and adnexa are unremarkable. OSSEOUS STRUCTURES: Mild degenerative changes are present in the spine. CT/CT kidney stone IMPRESSION: 1. Right-sided double-J internal indwelling ureteral stent with 5.6 x 3.0 x 1.1 cm calculus in the proximal ureter alongside the stent. 2. Other incidental findings as described above. Fleischner guidelines were followed. Electronically signed by: Geoffrey Marks MD 03/02/2024 08:32 AM EDT RP
== END 2024-03-02 07:33 | disposition home or self-care (01) ==
LOC: HO.CT 07:32
PROVIDERS: PCP Internal Medicine; Visit Provider Urology
DX: N20.0 Calculus of kidney (principal); Z96.0 Presence of urogenital implants
CPT/HCPCS: 74176

== ENCOUNTER → 2024-03-05 11:42 | Outpatient (BNVA) | payer MEDICARE, BC, SELFPAY | PROVIDERS: PCP Internal Medicine; Visit Provider Internal Medicine ==

== ENCOUNTER → 2024-03-12 12:30 | Outpatient (BNVA) | payer MEDICARE, BC, SELFPAY | PROVIDERS: PCP Internal Medicine; Visit Provider Internal Medicine ==

== ENCOUNTER 2024-03-18 13:19 | Outpatient (AMB) | payer MEDICARE, BC, SELFPAY ==
--- NOTE | 2024-03-18 13:13 | MHC.OFFVIS ---
Intake Visit Reasons: 2w/CT Intake Note: Patient is present for 2W/CT Urology Medication:NONE Antibiotic Allergy:NONE Blood Thinner:ASPIRIN, WARFARIN Tobacco Sample Puller Required: No Allergies acetaminophen [From Vicodin] Allergy (Intermediate, Verified 03/18/24 13:15) per patient hydrocodone [From Vicodin] Allergy (Mild, Verified 03/18/24 13:15) CHEST PAIN HPI Comments Details: 03/18/24--Telehealh--Reviewed 03/02/24 CTAP- CT stone large stone cm at proximal ureteral stent was not seen on KUB. Pt on anticoagulants. Schedule right ESWL Review of chart: 02/20/24--telehealth follow-up patient is status post KUB I reviewed fell and report renal calcifications are not adequately visualized. The patient had right ureteral stent placed on 11/26/23 for a 1.2 cm obstructing proximal ureteral stone. The stent has been in for a few months and I want to re-evaluate stone, I will order CT kidney stone protocol. 02/14/24--Ramona is an 83-year-old female who presents today to the office for a follow-up. She is here with her son. She was seen last in the hospital in November,. She was hospitalized with UTI and CT imaging noted right hydronephrosis secondary to obstructing proximal ureteral stone 1.2 cm. She is status post right ureteral stent on 11/26/2023. The patient states that since hospitalization she has been in a alf. She presents with an ACL knee brace and is being followed by Orthopedics. 11/25/23-CTAP: KIDNEYS AND URETERS: Mild right-sided hydroureteronephrosis secondary to a 1.2 cm calculus along the right proximal ureter. Additional right renal calculi noted measuring up to 3 mm. No left-sided nephrolithiasis or hydronephrosis. I have discussed check a KUB. Patient will need further stone management. 04/15/2023?Ramona is an 82-year-old female who presents today to the office for a follow-up. She is followed today for US results. She was last seen by me on 10/11/2022 for bilateral kidney stones. I discussed risks and benefits of ESWL procedure with the patient. The patient wants to continue with monitoring for renal calculi. Renal US was ordered. She denies any blood in the urine or burning with urination. I discussed the renal US results from 03/14/2023 revealed bilateral kidneys stones. I did discuss that I feel that US is not accurate in terms of the size of the kidney stones. I reviewed the blood work results from 01/04/2023 revealed BUN was 13 and Creatinine was 0.83. 04/15/23--UA?leukocytes: 15 Rainer; blood: 3 +; protein: 1 +. Imaging: CTAP results reviewed--09/12/22-- findings of punctate nonobstructing calculus in the posterior left upper kidney. 6 x 3 mm nonobstructing calculus in the posterior right upper kidney. FORMERLY [facility] Medical History Chronic atrial fibrillation Chronic anticoagulation Obesity CKD (chronic kidney disease) stage 3, GFR 30-59 ml/min Nephrolithiasis, uric acid Hyperlipidemia HTN (hypertension) A-fib GORDON (obstructive sleep apnea) COPD (chronic obstructive pulmonary disease) Pulmonary HTN Severe mitral regurgitation Thiamine deficiency Osteoporosis Surgical History Hx of hernia repair History of open reduction and internal fixation (ORIF) procedure Family History Father No problems noted. Mother No problems noted. Maternal Aunt Breast cancer Social History Household Members: Spouse Housing: House Do you presently have visiting nurse or other home services: No Alcohol intake: never Patient Tobacco Use Status: Former Tobacco user Tobacco use type: Cigarette e-Cigarette/Vaping Use: Never Used Second Hand Smoke Exposure: No Advance Directives Date on File: 11/28/23 service: No Current occupational status: retired Cognitive needs: No Hearing needs: No Vision needs: No Review of Systems Const All systems reviewed & are unremarkable except as noted in HPI and below Reports no additional complaints Eyes Reports no additional complaints ENT Reports no additional complaints Card Reports no additional complaints Resp Reports no additional complaints GI Reports no additional complaints Reports as per HPI Musc Reports no additional complaints Skin/Breast Reports system reviewed and no additional complaints, except as documented Neuro Reports no additional complaints Psych Reports no additional complaints Endo Reports no additional complaints Pedro/Lymph Reports no additional complaints Aller/Immun Reports no additional complaints Telehealth Telehealth Telehealth Platform: Telephone Location of provider rendering services: practice address Location of patient: address on file Patient Identification confirmed using: Name, : Yes Telehealth method: voice only Patient verbally consented to treatment: Yes Patient verbally consented to billing insurance company: Yes Patient informed of any privacy concerns related to visit: Yes Minutes spent on Phone/Video with Pt.: 18 Results Reviewed Results Reviewed: Date of Service: 03/02/24 CT ABDOMEN AND PELVIS WITHOUT CONTRAST CLINICAL INFORMATION: Calculus of kidney COMPARISON: KUB 02/14/[address] abdomen and pelvis 11/25/2023 TECHNIQUE: Multidetector volumetric imaging was performed from the superior aspect of the liver through the pubic symphysis. This CT examination was performed using dose optimization techniques as appropriate, variously including the following: *Automated exposure control *Adjustment of mA and/or kV according to patient size (this includes techniques or standardized protocols for targeted exams where dose is matched to indication/reason for exam; i.e. extremities or head) *Use of iterative reconstruction technique DLP: 424 mGy-cm FINDINGS: LUNG BASES: Bibasilar atelectasis is present with some areas of round atelectasis with associated calcified pleural plaque. The heart is enlarged. Pacemaker wires are present. LIVER, GALLBLADDER, AND BILIARY TREE: The liver is normal in size, shape, and attenuation. No focal hepatic lesion or biliary ductal dilatation is present. The gallbladder is not seen. KIDNEYS AND URETERS: A double-J internal indwelling ureteral stent is present on the right. In the proximal ureter alongside the stent there is a 5.6 x 3.0 x 1.1 cm calculus. A single tiny punctate nonobstructing right intrarenal renal calculus is present. There is no right-sided hydronephrosis. The left kidney appears unremarkable. SPLEEN: The spleen is mildly enlarged at 12.3 cm in maximal cephalocaudad dimension. ADRENAL GLANDS: Unremarkable. PANCREAS: Unremarkable BLADDER: Unremarkable aside from the presence of the distal end of the right ureteral stent GASTROINTESTINAL TRACT: The small and large bowel are unremarkable aside from the presence of colonic diverticulosis without diverticulitis. The appendix is unremarkable. ABDOMINAL WALL: There is been a prior likely periumbilical hernia repair. Again seen is laxity of the anterior abdominal wall with diastases of the rectus muscles. LYMPH NODES: No retroperitoneal lymphadenopathy VASCULAR: Calcific atherosclerotic changes are present in the aorta and iliofemoral vessels. There is no evidence of an abdominal aortic aneurysm. PELVIC VISCERA: The uterus and adnexa are unremarkable. OSSEOUS STRUCTURES: Mild degenerative changes are present in the spine. IMPRESSION: 1. Right-sided double-J internal indwelling ureteral stent with 5.6 x 3.0 x 1.1 cm calculus in the proximal ureter alongside the stent. 2. Other incidental findings as described above. Date of Service: 11/25/23 CT ABDOMEN AND PELVIS WITHOUT CONTRAST CLINICAL INFORMATION: Abdominal pain radiating to right flank history of stones COMPARISON: 7 renal from 03/04/2023, CT abdomen from 09/12/2022 TECHNIQUE: Multidetector volumetric imaging was performed from the superior aspect of the liver through the pubic symphysis. Sagittal and coronal reformatted images were obtained on the technologist's workstation. This CT examination was performed using dose optimization techniques as appropriate, variously including the following: *Automated exposure control *Adjustment of mA and/or kV according to patient size (this includes techniques or standardized protocols for targeted exams where dose is matched to indication/reason for exam; i.e. extremities or head) *Use of iterative reconstruction technique DLP: 791 mGy-cm FINDINGS: LUNG BASES: Trace bilateral pleural effusions, right greater than left. Pleural calcifications bilaterally along the posterior aspect of the bilateral lower lobes. Bronchial thickening. Partially visualized pacer leads. Valvular calcifications. Respiratory motion artifact limits evaluation. LIVER, GALLBLADDER, AND BILIARY TREE: The liver is normal in size, shape, and attenuation. No focal hepatic lesion or biliary ductal dilatation is present. The gallbladder is surgically absent. PANCREAS: Unremarkable. SPLEEN: Multiple calcified granulomas of the spleen. 1.1 cm splenule. ADRENAL GLANDS: Unremarkable. KIDNEYS AND URETERS: Mild right-sided hydroureteronephrosis secondary to a 1.2 cm calculus along the right proximal ureter. Additional right renal calculi noted measuring up to 3 mm. No left-sided nephrolithiasis or hydronephrosis. BLADDER: Unremarkable. GASTROINTESTINAL TRACT: Small hiatal hernia. Colonic diverticulosis without acute diverticulitis. The small and large bowel are unremarkable. The appendix is unremarkable. ABDOMINAL WALL: Redemonstrated laxity of the abdominal wall without discrete hernia. LYMPH NODES: No enlarged lymph nodes per size criteria. VASCULAR: Abdominal aorta is nonaneurysmal. Atherosclerotic calcifications of the abdominal aorta and its branches. PELVIC VISCERA: Anteverted uterus. OSSEOUS STRUCTURES: Osteopenia. Multilevel degenerative changes of the thoracolumbar lumbosacral spine. Right hip hardware, grossly intact. Partially visualized retrograde left femoral intramedullary nail, grossly intact. IMPRESSION: 1. Mild right-sided hydroureteronephrosis secondary to a 1.2 cm calculus along the right proximal ureter. Additional right renal calculi noted measuring up to 3 mm. 2. Trace bilateral pleural effusions, right greater than left. Pleural calcifications bilaterally along the posterior aspect of the bilateral lower lobes. 3. Status post cholecystectomy. 4. Multiple calcified granulomas of the spleen. 5. Small hiatal hernia. 6. Colonic diverticulosis without acute diverticulitis. 7. Osteopenia. Date of Service: 03/14/23 EXAMINATION: US RETROPERITONEAL LIMITED (RENAL ONLY) CLINICAL INFORMATION: Calculus of kidney. Right kidney 6 mm stone, punctate left kidney stones. COMPARISON: CT abdomen and pelvis 09/12/2022. Ultrasound abdomen limited 03/05/2022 and 09/08/2021. FINDINGS: RIGHT KIDNEY: 10.1 x 4.1 x 4.4 cm (SAG x AP x TRV). The kidney is normal in size, contour, and echogenicity. Renal cortical thickness is normal. Stone or cluster of stones in the upper pole measuring 9 x 5 x 9 mm and 5 x 3 x 4 mm. No focal parenchymal lesions or hydronephrosis. LEFT KIDNEY: 11.8 x 4.3 x 4.8 cm (SAG x AP x TRV). The kidney is normal in size, contour, and echogenicity. Renal cortical thickness is normal. Small stones measuring 2 to 3 mm in the mid and lower pole. 2.4 x 2.1 x 2.2 cm simple cyst in the lower pole. No imaging follow-up recommended. No hydronephrosis. IMPRESSION: Bilateral renal stones, right greater than left. Date of Service: 09/12/22 EXAMINATION: CT ABDOMEN AND PELVIS WITHOUT CONTRAST CLINICAL INFORMATION: Calculus of kidney. COMPARISON: CT abdomen and pelvis 08/24/2022. FINDINGS: LUNG BASES: Increasing small bilateral pleural effusions and atelectasis at the lung bases compared to 08/24/2022. LIVER, GALLBLADDER, AND BILIARY TREE: The liver is normal in size, shape, and attenuation. No focal hepatic lesion or biliary ductal dilatation is present. Cholecystectomy. PANCREAS: No discrete pancreatic mass. No ductal dilatation. SPLEEN: Calcified granulomas. ADRENAL GLANDS: No adrenal mass. KIDNEYS AND URETERS: Punctate nonobstructing calculus in the posterior left upper kidney. 6 x 3 mm nonobstructing calculus in the posterior right upper kidney. No hydronephrosis. BLADDER: Unremarkable. GASTROINTESTINAL TRACT: Small hiatal hernia. The small bowel is normal in caliber. The appendix appears normal. There is diverticulosis without evidence of diverticulitis. ABDOMINAL WALL: Generalized laxity of the abdominal wall without significant discrete hernia. LYMPH NODES: No lymphadenopathy. VASCULAR: No aortic aneurysm. Moderate aortoiliac calcium. PELVIC VISCERA: The uterus and adnexa are unremarkable. OSSEOUS STRUCTURES: Degenerative changes in the spine. Right hip fracture ORIF. IMPRESSION: Nonobstructing bilateral renal calculi as above. Increasing small bilateral pleural effusions and bibasilar atelectasis. Compared to CT 08/24/2022. 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 will need to check urine c/s 7 days prior. Patient Instructions: The patient had an opportunity to ask questions regarding treatment plan. The patient expressed understanding and agreement with the above treatment plan. The patient is aware they should contact our office by phone for worsening of their current condition or the appearance of new symptoms. Compliance is encouraged with any medications and followup testing that is ordered. It is a privilege to be allowed the opportunity to participate in the urologic care of your patient. If you have any questions or concerns regarding treatment for the above conditions please do not hesitate to contact me. The office telephone contact is [phone]. This note is constructed in part using voice recognition software. While every effort has been made to ensure accuracy applications engineer errors may have been included. Yours sincerely, Jerzy Eng MD Coding Level of Care Code Tele Est Pt Level 4 (63898) Diagnoses A-fib I48.91 Current use of anticoagulant therapy Z79.01 Ureteral stone N20.1 Bilateral kidney stones N20.0 Ureteral stent present Z96.0
== END 2024-03-18 15:26 | disposition home or self-care (01) ==
LOC: HO.HUSH 13:19
PROVIDERS: PCP Internal Medicine; Visit Provider Urology
DX: N20.2 Calculus of kidney with calculus of ureter (principal); Z96.0 Presence of urogenital implants; I48.91 Unspecified atrial fibrillation; Z79.01 Long term (current) use of anticoagulants
CPT/HCPCS: 99442

== ENCOUNTER → 2024-03-18 13:19 | Outpatient (BNVA) | payer MEDICARE, BC, SELFPAY | PROVIDERS: PCP Internal Medicine; Visit Provider Urology ==

== ENCOUNTER → 2024-03-19 10:31 | Outpatient (BNVA) | payer MEDICARE, BC, SELFPAY | PROVIDERS: PCP Internal Medicine; Visit Provider Internal Medicine ==

== ENCOUNTER 2024-03-23 08:53 | Outpatient (AMB) | payer MEDICARE, BC, SELFPAY ==
--- NOTE | 2024-03-23 09:08 | MHC.OFFVISCO ---
Intake Intake Visit Reasons: Anticoagulation Allergies acetaminophen [From Vicodin] Allergy (Intermediate, Verified 03/23/24 08:54) per patient hydrocodone [From Vicodin] Allergy (Mild, Verified 03/23/24 08:54) CHEST PAIN Medication List - Last Reconciled 03/23/24 by Ninoska Nolen, RN acetaminophen 650 mg PO Q8H PRN albuterol sulfate 90 mcg/actuation 2 puffs inhalation Q4-6H PRN amlodipine 5 mg PO DAILY ascorbate calcium (vitamin C) 500 mg PO DAILY aspirin (Noel Low Dose Aspirin) 81 mg PO DAILY atenolol 50 mg PO DAILY atorvastatin 80 mg PO DAILY furosemide (Lasix) 40 mg PO DAILY jsslidhdgpjn-Xw-zwsb-minerals 1 tab PO DAILY omeprazole 20 mg PO BID@0630,1630 potassium chloride ER 30 mEq (1.5 x 20 mEq) PO DAILY vitamin B complex 1 tab PO DAILY warfarin See Protocol 2.5 mg orally 2.5MG DAILY WHILE RECOVERING MAY NEED DOSE ADJUSTMENTS; zinc gluconate 50 mg PO DAILY Nursing Note INR: 2.5- in therapeutic range of 2-3 Medications and supplements reviewed No changes in health, diet, medications, or supplements, Denies any signs and symptoms of bleeding or bruising or clotting. Bleeding, bruising, clotting discussed Nutritional guidance given Dose: 2.5mg x 7 F/U INR: 2 weeks Patient verbalizes understanding of instructions given pt here on wrong date for acs appt, in w/c, acompanied by britton pt s/p stent left kidney and s/p L tibial plateau fx- no surgery. pt prev had vna services to manage inr - now back to acs pt reports urine 'pink' post stent. instructed to call acs with any further hematuria. pt states upcoming proc ESWL- awaiting cardiology clearance- aware to call acs with warfarin hold and date of procedure Anti-Coag Initial Assessment Social Hx Patient Tobacco Use Status: Former Tobacco user Tobacco use type: Cigarette alcohol intake: never Coding Level of Care Code Est Patient Level 1 Diagnoses Current use of anticoagulant therapy Z79.01 Assessment & Plan Assessment & Plan (1) Current use of anticoagulant therapy: Code(s): Z79.01 - FPC (current) use of 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
[2024-03-23 09:09] LABS: Prothrombin Time Whole Bld POC 30.6 sec (11.1-13.5); ~PT, ~INR - Anti Coag Clinic 2.5 (0.9-1.1)
== END 2024-03-23 09:18 | disposition home or self-care (01) ==
PROVIDERS: PCP Internal Medicine; Visit Provider Internal Medicine
DX: Z79.01 Long term (current) use of anticoagulants (principal)

== ENCOUNTER → 2024-03-23 08:53 | Outpatient (BNVA) | payer MEDICARE, BC, SELFPAY | PROVIDERS: PCP Internal Medicine; Visit Provider Internal Medicine | DX: I48.0 Paroxysmal atrial fibrillation (principal); Z79.01 Long term (current) use of anticoagulants; Z51.81 Encounter for therapeutic drug level monitoring | CPT/HCPCS: 85610; 99211 ==

== ENCOUNTER 2024-04-06 08:07 | Outpatient (AMB) | payer MEDICARE, BC, SELFPAY ==
[2024-04-06 08:27] LABS: Prothrombin Time Whole Bld POC 28.6 sec (11.1-13.5); ~PT, ~INR - Anti Coag Clinic 2.4 (0.9-1.1)
--- NOTE | 2024-04-06 08:35 | MHC.OFFVISCO ---
Intake Intake Visit Reasons: Anticoagulation Allergies acetaminophen [From Vicodin] Allergy (Intermediate, Verified 04/06/24 08:18) per patient hydrocodone [From Vicodin] Allergy (Mild, Verified 04/06/24 08:18) CHEST PAIN Medication List - Last Reconciled 04/06/24 by Yolis Mendez RN acetaminophen 650 mg PO Q8H PRN albuterol sulfate 90 mcg/actuation 2 puffs inhalation Q4-6H PRN amlodipine 5 mg PO DAILY ascorbate calcium (vitamin C) 500 mg PO DAILY aspirin (Noel Low Dose Aspirin) 81 mg PO DAILY atenolol 50 mg PO DAILY atorvastatin 80 mg PO DAILY furosemide (Lasix) 40 mg PO DAILY wqogawbvskcf-To-irbf-minerals 1 tab PO DAILY omeprazole 20 mg PO BID@0630,1630 potassium chloride ER 30 mEq (1.5 x 20 mEq) PO DAILY vitamin B complex 1 tab PO DAILY warfarin See Protocol 2.5 mg orally 2.5MG DAILY WHILE RECOVERING MAY NEED DOSE ADJUSTMENTS; zinc gluconate 50 mg PO DAILY Nursing Note Pt britton Souza came with her brining her via wheel chair - INR: 2.4 in therapeutic range Medications and supplements reviewed *Tibial fracture still healing able to weight bare with walker now. Has renal stent and renal calculi that requires surgery to have both removed. 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 Date to have both removed is still pending - pt will call Denies any signs and symptoms of bleeding or bruising or clotting. Bleeding, bruising, clotting discussed Nutritional guidance given - cont to eat a mix of fruits and vegetables Dose: keep same dose for now 2.5mg daily to minimize hematuria F/U INR: 2 weeks Patient verbalizes understanding of instructions given Anti-Coag Initial Assessment Social Hx Patient Tobacco Use Status: Former Tobacco user Tobacco use type: Cigarette alcohol intake: never Questionnaires HAS-BLED Does the patient had uncontrolled Hypertension?: No Does the patient have renal disease?: Yes Does the patient have liver disease?: No Does the patient have a history of stroke?: No Has the patient had major bleeding or predisposition to bleeding?: Yes Does the patient have labile INRs?: No Is the patient over 65 years of age?: Yes Is the patient on medications that gives them a predisposition to bleeding?: Yes Does the patient use alcohol?: No HAS-BLED Score: 4 CHADSVASC Age: 75 or over Gender: Female Does the patient have a history of CHF?: Yes Does the patient have a history of Hypertension?: Yes Does the patient have a history of Stroke/TIA/Thromboembolism?: Yes Does the patient have a history of Vascular Disease (prior [place], PAD or aortic plaque)?: Yes Does the patient have a history of Diabetes?: No CHADS VACS Score: 8 Nathalie Prediction Score Rsk VTE Active Cancer: No Previous VTE, excluding superficial vein thrombosis: No Reduced mobility: Yes Already known Thrombophilic Condition: No With-in last month Trauma and/or Surgery: No Elderly 70 year or older: Yes Heart and/or Respiratory Failure: Yes Acute Myocardial infarction and/or Ischemic Stroke: No Acute Infection and/or Rheumatologic Disorder: Yes ([place] AGE 30 ) Obesity (BMI 30 or greater): Yes Ongoing Hormonal Treatment: No Score: 7 Nathalie Score less than 4; Low Risk of VTE Nathalie Score 4 or greater; High Risk of VTE Coding Level of Care Code Est Patient Level 1 Diagnoses Current use of anticoagulant therapy Z79.01 Results AMB INR Fingerstick AMB INR Fingerstick 2.4 Last Edit by Yolis Mendez RN on 04/06/24 08:28 manual entry Assessment & Plan Assessment & Plan (1) Current use of anticoagulant therapy: Code(s): Z79.01 - [facility] (current) use of 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
== END 2024-04-06 08:48 | disposition home or self-care (01) ==
LOC: HO.ACS 08:07
PROVIDERS: PCP Internal Medicine; Visit Provider Internal Medicine
DX: Z79.01 Long term (current) use of anticoagulants (principal)

== ENCOUNTER → 2024-04-06 08:07 | Outpatient (BNVA) | payer MEDICARE, BC, SELFPAY | PROVIDERS: PCP Internal Medicine; Visit Provider Internal Medicine | DX: I48.0 Paroxysmal atrial fibrillation (principal); Z79.01 Long term (current) use of anticoagulants; Z51.81 Encounter for therapeutic drug level monitoring | CPT/HCPCS: 85610; 99211 ==

== ENCOUNTER 2024-04-20 08:20 | Outpatient (AMB) | payer MEDICARE, BC, SELFPAY ==
[2024-04-20 08:27] LABS: Prothrombin Time Whole Bld POC 29.6 sec (11.1-13.5); ~PT, ~INR - Anti Coag Clinic 2.5 (0.9-1.1)
--- NOTE | 2024-04-20 08:40 | MHC.OFFVISCO ---
Intake Intake Visit Reasons: Anticoagulation Allergies acetaminophen [From Vicodin] Allergy (Intermediate, Verified 04/20/24 08:21) per patient hydrocodone [From Vicodin] Allergy (Mild, Verified 04/20/24 08:21) CHEST PAIN Medication List - Last Reconciled 04/20/24 by Yolis Mendez, RN acetaminophen 650 mg PO Q8H PRN albuterol sulfate 90 mcg/actuation 2 puffs inhalation Q4-6H PRN amlodipine 5 mg PO DAILY ascorbate calcium (vitamin C) 500 mg PO DAILY aspirin (Noel Low Dose Aspirin) 81 mg PO DAILY atenolol 50 mg PO DAILY atorvastatin 80 mg PO DAILY furosemide (Lasix) 40 mg PO DAILY vyxuolgkoqfz-Rq-uzck-minerals 1 tab PO DAILY omeprazole 20 mg PO BID@0630,1630 potassium chloride ER 30 mEq (1.5 x 20 mEq) PO DAILY vitamin B complex 1 tab PO DAILY warfarin See Protocol 2.5 mg orally 2.5MG DAILY WHILE RECOVERING MAY NEED DOSE ADJUSTMENTS; zinc gluconate 50 mg PO DAILY Nursing Note INR: 2.5 in therapeutic range Medications and supplements reviewed * pt still has slight hematuria - surgery for stent and renal calculi pending still- waiting for cardiology clearance. Daly Souza brings her for appts Denies any signs and symptoms of bleeding or bruising or clotting. Bleeding, bruising, clotting discussed Nutritional guidance given Dose: keep same 2.5mg dailu F/U INR: 3 weeks - planning for flu and covid vaccines and f/u has knee appt Patient verbalizes understanding of instructions given Anti-Coag Initial Assessment Social Hx Patient Tobacco Use Status: Former Tobacco user Tobacco use type: Cigarette alcohol intake: never Coding Level of Care Code Est Patient Level 1 Diagnoses Current use of anticoagulant therapy Z79.01 Assessment & Plan Assessment & Plan (1) Current use of anticoagulant therapy: Code(s): Z79.01 - long-term (current) use of 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
== END 2024-04-20 08:44 | disposition home or self-care (01) ==
LOC: HO.ACS 08:20
PROVIDERS: PCP Internal Medicine; Visit Provider Internal Medicine
DX: Z79.01 Long term (current) use of anticoagulants (principal)

== ENCOUNTER → 2024-04-20 08:20 | Outpatient (BNVA) | payer MEDICARE, BC, SELFPAY | PROVIDERS: PCP Internal Medicine; Visit Provider Internal Medicine | DX: I48.0 Paroxysmal atrial fibrillation (principal); Z79.01 Long term (current) use of anticoagulants; Z51.81 Encounter for therapeutic drug level monitoring | CPT/HCPCS: 85610; 99211 ==

== ENCOUNTER 2024-04-21 08:38 | Outpatient (AMB) | payer MEDICARE, BC, SELFPAY ==
--- NOTE | 2024-04-21 08:54 | MHC.OFFVIS ---
Intake Visit Reasons: OV - left tibial plateau fx follow up Intake Note: Ramona is a 83 year old female who presents today on a stretcher for a follow up of her left tibial plateau fx. Patient reports she is doing well. She mentions having no pain at the moment. Allergies acetaminophen [From Vicodin] Allergy (Intermediate, Verified 04/21/24 09:03) per patient hydrocodone [From Vicodin] Allergy (Mild, Verified 04/21/24 09:03) CHEST PAIN HPI HPI OV - left tibial plateau fx follow up: Details: 83-year-old female who presents in the office today for a follow-up of a left tibial plateau fracture. I last saw the patient in the office on 02/28/24, when she was encouraged to start weight bearing as tolerated on the left lower extremity and continue working with physical therapy. She was advised to remain in the brace until quad control allows. While in the office today, the patient presents on a stretcher. She reports she is doing well. She is currently experiencing no pain. The patient has a significant history of A-fib, severe mitral regurgitation, and current use of anticoagulant therapy. [facility] Medical History Chronic atrial fibrillation Chronic anticoagulation Obesity CKD (chronic kidney disease) stage 3, GFR 30-59 ml/min Nephrolithiasis, uric acid Hyperlipidemia HTN (hypertension) A-fib GORDON (obstructive sleep apnea) COPD (chronic obstructive pulmonary disease) Pulmonary HTN Severe mitral regurgitation Thiamine deficiency Osteoporosis Surgical History Hx of hernia repair History of open reduction and internal fixation (ORIF) procedure Family History Father No problems noted. Mother No problems noted. Maternal Aunt Breast cancer Social History Household Members: Spouse Housing: House Do you presently have visiting nurse or other home services: No Alcohol intake: never Patient Tobacco Use Status: Former Tobacco user Tobacco use type: Cigarette e-Cigarette/Vaping Use: Never Used Second Hand Smoke Exposure: No Advance Directives Date on File: 11/28/23 service: No Current occupational status: retired Cognitive needs: No Hearing needs: No Vision needs: No Review of Systems Const All systems reviewed & are unremarkable except as noted in HPI and below Physical Exam Const General: cooperative, healthy appearing and no acute distress Resp Effort & Inspection: normal respiratory effort and able to speak in complete sentences Cardio Rate: regular rate Peripheral pulses: Peripheral pulses 2+ throughout GI Palpation (GI): Soft to palpation Skin Lesions: no lesions Rashes: no rashes Extrem Other: Left knee: Full ROM. Able to perform dorsiflexion and plantar flexion. Sensation intact. Pedal pulse is intact. 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 Pinon is an 83-year-old female who presents in the office today for a follow-up of a left tibial plateau fracture. I last saw the patient in the office on 02/28/24, when she was encouraged to start weight bearing as tolerated on the left lower extremity and continue working with physical therapy. She was advised to remain in the brace until quad control allows. While in the office today, the patient presents on a stretcher. She reports she is doing well. She is currently experiencing no pain. The patient has a significant history of A-fib, severe mitral regurgitation, and current use of anticoagulant therapy. The patient has completed all the physical therapy sessions. She continues to use the walker for ambulation, which I encourage her to continue. Follow up will be PRN, or sooner if needed. X-rays of the left knee, which were obtained while in the office today and were reviewed by me, Holli Arreola PA-C, revealed: Routine healing of the left tibial plateau fracture. Orders: Orders XR knee LT 3V 04/21/24 M25.569 - Pain in unspecified knee XR knee RT 1V 04/21/24 M25.569 - Pain in unspecified knee Patient Instructions: Scribed by Salena Thomas, medical specialist, for Holli Arreola PA-C on 04/21/2024 at 8:49 am EST. Coding Level of Care Code Global (20071) Diagnoses Closed fracture of left tibial plateau S82.142A A-fib I48.91 Severe mitral regurgitation I34.0 Current use of anticoagulant therapy Z79.01
== END 2024-04-21 09:15 | disposition home or self-care (01) ==
PROVIDERS: PCP Internal Medicine; Visit Provider Physician Assistant
DX: S82.142A Displaced bicondylar fracture of left tibia, initial encounter for closed fracture (principal); I48.91 Unspecified atrial fibrillation; I34.0 Nonrheumatic mitral (valve) insufficiency; Z79.01 Long term (current) use of anticoagulants
CPT/HCPCS: 99213

== ENCOUNTER 2024-04-21 09:06 | Outpatient (REF) | payer MEDICARE, BC, SELFPAY | END 2024-04-21 09:07 | disposition home or self-care (01) | LOC: HO.HOSX 09:06 | PROVIDERS: Visit Provider Physician Assistant | DX: M25.569 Pain in unspecified knee (principal); S82.142A Displaced bicondylar fracture of left tibia, initial encounter for closed fracture; I48.91 Unspecified atrial fibrillation; I34.0 Nonrheumatic mitral (valve) insufficiency; Z79.01 Long term (current) use of anticoagulants | CPT/HCPCS: 73560; 73562; 99212 ==

== ENCOUNTER 2024-05-11 08:16 | Outpatient (AMB) | payer MEDICARE, BC, SELFPAY ==
[2024-05-11 08:24] LABS: Prothrombin Time Whole Bld POC 22.2 sec (11.1-13.5); ~PT, ~INR - Anti Coag Clinic 1.8 (0.9-1.1)
--- NOTE | 2024-05-11 08:35 | MHC.OFFVISCO ---
Intake Intake Visit Reasons: Anticoagulation Allergies acetaminophen [From Vicodin] Allergy (Intermediate, Verified 05/11/24 08:19) per patient hydrocodone [From Vicodin] Allergy (Mild, Verified 05/11/24 08:19) CHEST PAIN Medication List - Last Reconciled 05/11/24 by Suzanne Valentin, RN acetaminophen 650 mg PO Q8H PRN albuterol sulfate 90 mcg/actuation 2 puffs inhalation Q4-6H PRN amlodipine 5 mg PO DAILY ascorbate calcium (vitamin C) 500 mg PO DAILY aspirin (Noel Low Dose Aspirin) 81 mg PO DAILY atenolol 50 mg PO DAILY atorvastatin 80 mg PO DAILY furosemide (Lasix) 40 mg PO DAILY qgbgxsnhjprf-Pn-pqnb-minerals 1 tab PO DAILY omeprazole 20 mg PO BID@0630,1630 potassium chloride ER 30 mEq (1.5 x 20 mEq) PO DAILY vitamin B complex 1 tab PO DAILY warfarin See Protocol 2.5 mg orally 2.5MG DAILY WHILE RECOVERING MAY NEED DOSE ADJUSTMENTS; zinc gluconate 50 mg PO DAILY Nursing Note INR: 1.8 out of therapeutic range of 2-3 Medications and supplements reviewed No changes in health, diet, medications, or supplements, Denies any signs and symptoms of bleeding or bruising or clotting. Bleeding, bruising, clotting discussed Nutritional guidance given Dose: increase todays dose to 3.75mg then go back to 2.5mg daily F/U INR: 3 weeks Patient verbalizes understanding of instructions given Anti-Coag Initial Assessment Social Hx Patient Tobacco Use Status: Former Tobacco user Tobacco use type: Cigarette alcohol intake: never Questionnaires HAS-BLED Does the patient had uncontrolled Hypertension?: No Does the patient have renal disease?: No Does the patient have liver disease?: No Does the patient have labile INRs?: No Is the patient over 65 years of age?: Yes Is the patient on medications that gives them a predisposition to bleeding?: Yes Does the patient use alcohol?: No HAS-BLED Score: 2 CHADSVASC Age: 75 or over Gender: Female Does the patient have a history of CHF?: Yes Does the patient have a history of Hypertension?: Yes Does the patient have a history of Stroke/TIA/Thromboembolism?: No Does the patient have a history of Vascular Disease (prior IL, PAD or aortic plaque)?: Yes Does the patient have a history of Diabetes?: No CHADS VACS Score: 6 Nathalie Prediction Score Rsk VTE Active Cancer: No Previous VTE, excluding superficial vein thrombosis: No Reduced mobility: Yes Already known Thrombophilic Condition: No With-in last month Trauma and/or Surgery: No Elderly 70 year or older: Yes Heart and/or Respiratory Failure: Yes Acute Myocardial infarction and/or Ischemic Stroke: Yes Acute Infection and/or Rheumatologic Disorder: No Obesity (BMI 30 or greater): No Ongoing Hormonal Treatment: No Score: 6 Nathalie Score less than 4; Low Risk of VTE Nathalie Score 4 or greater; High Risk of VTE Coding Level of Care Code Est Patient Level 1 Diagnoses Current use of anticoagulant therapy Z79.01 Assessment & Plan Assessment & Plan (1) Current use of anticoagulant therapy: Code(s): Z79.01 - retirement (current) use of 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
== END 2024-05-11 08:42 | disposition home or self-care (01) ==
LOC: HO.ACS 08:16
PROVIDERS: PCP Internal Medicine; Visit Provider Internal Medicine
DX: Z79.01 Long term (current) use of anticoagulants (principal)

== ENCOUNTER → 2024-05-11 08:16 | Outpatient (BNVA) | payer MEDICARE, BC, SELFPAY | PROVIDERS: PCP Internal Medicine; Visit Provider Internal Medicine | DX: I48.0 Paroxysmal atrial fibrillation (principal); Z79.01 Long term (current) use of anticoagulants; Z51.81 Encounter for therapeutic drug level monitoring | CPT/HCPCS: 85610; 99211 ==

== ENCOUNTER 2024-06-01 08:12 | Outpatient (AMB) | payer MEDICARE, BC, SELFPAY ==
--- NOTE | 2024-06-01 08:41 | MHC.OFFVISCO ---
Intake Intake Visit Reasons: Anticoagulation Allergies acetaminophen [From Vicodin] Allergy (Intermediate, Verified 06/01/24 08:30) per patient hydrocodone [From Vicodin] Allergy (Mild, Verified 06/01/24 08:30) CHEST PAIN Medication List - Last Reconciled 06/01/24 by Ninoska Nolen RN acetaminophen 650 mg PO Q8H PRN albuterol sulfate 90 mcg/actuation 2 puffs inhalation Q4-6H PRN amlodipine 5 mg PO DAILY ascorbate calcium (vitamin C) 500 mg PO DAILY aspirin (Noel Low Dose Aspirin) 81 mg PO DAILY atenolol 50 mg PO DAILY atorvastatin 80 mg PO DAILY furosemide (Lasix) 40 mg PO DAILY iuxclntxzuyg-Jn-asgv-minerals 1 tab PO DAILY omeprazole 20 mg PO BID@0630,1630 potassium chloride ER 30 mEq (1.5 x 20 mEq) PO DAILY vitamin B complex 1 tab PO DAILY warfarin See Protocol 2.5 mg orally 2.5MG DAILY WHILE RECOVERING MAY NEED DOSE ADJUSTMENTS; zinc gluconate 50 mg PO DAILY Nursing Note INR 1.7-?? 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 lovenox Medications or supplements: no changes Diet: appetite is poor Denies any signs and symptoms of bleeding or clotting or unusual bruising Bleeding, bruising, clotting discussed Nutritional guidance given: no greens for 2 days, eat a red today to raise Dose: take 5.75mg today and increase weekly dosing to 3.75mg x 1. 2.5mg x 6 F/U INR Date : 2 weeks Patient verbalizing understanding of instructions given. 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
[2024-06-01 08:54] LABS: ~PT, ~INR - Anti Coag Clinic 1.7 (0.9-1.1)
== END 2024-06-01 08:54 | disposition home or self-care (01) ==
LOC: HO.ACS 08:12
PROVIDERS: PCP Internal Medicine; Visit Provider Internal Medicine
DX: Z79.01 Long term (current) use of anticoagulants (principal)

== ENCOUNTER → 2024-06-01 08:12 | Outpatient (BNVA) | payer MEDICARE, BC, SELFPAY | PROVIDERS: PCP Internal Medicine; Visit Provider Internal Medicine | DX: I48.0 Paroxysmal atrial fibrillation (principal); Z79.01 Long term (current) use of anticoagulants; Z51.81 Encounter for therapeutic drug level monitoring | CPT/HCPCS: 85610; 99211 ==

== ENCOUNTER 2024-06-15 08:24 | Outpatient (AMB) | payer MEDICARE, BC, SELFPAY ==
[2024-06-15 08:50] LABS: Prothrombin Time Whole Bld POC 23.4 sec (11.1-13.5); ~PT, ~INR - Anti Coag Clinic 1.9 (0.9-1.1)
--- NOTE | 2024-06-15 09:02 | MHC.OFFVISCO ---
Intake Intake Visit Reasons: Anticoagulation Allergies acetaminophen [From Vicodin] Allergy (Intermediate, Verified 06/15/24 08:43) per patient hydrocodone [From Vicodin] Allergy (Mild, Verified 06/15/24 08:43) CHEST PAIN Medication List - Last Reconciled 06/15/24 by Yolis Mendez, RN acetaminophen 650 mg PO Q8H PRN albuterol sulfate 90 mcg/actuation 2 puffs inhalation Q4-6H PRN amlodipine 5 mg PO DAILY ascorbate calcium (vitamin C) 500 mg PO DAILY aspirin (Noel Low Dose Aspirin) 81 mg PO DAILY atenolol 50 mg PO DAILY atorvastatin 80 mg PO DAILY furosemide (Lasix) 40 mg PO DAILY zccuvunbnwzn-Pm-jemo-minerals 1 tab PO DAILY omeprazole 20 mg PO BID@0630,1630 potassium chloride ER 30 mEq (1.5 x 20 mEq) PO DAILY vitamin B complex 1 tab PO DAILY warfarin See Protocol 2.5 mg orally 2.5MG DAILY WHILE RECOVERING MAY NEED DOSE ADJUSTMENTS; zinc gluconate 50 mg PO DAILY Nursing Note INR: 1.9 in therapeutic range Medications and supplements reviewed EF 2-25% - NEEDS PACER LEAD REPLACEMENT - DATE TO BE DETERMINED- 07/15 CARDIOLOGY APPT ? WARFARIN HOLD AND LOVENOX BRIDGE ONCE LEAD PLACED THEN SCHEDULE RENAL PROCEDURE ( 5 DAY WARFARIN HOLD WITH LOVENOXLIKELY Denies any signs and symptoms of bleeding or bruising or clotting. Bleeding, bruising, clotting discussed Nutritional guidance given - NO GREENS TODAY THEN RESUME USUAL DIET WITH MIX ( HAD ISAI RECENTLY) Dose: INCREASE TO 3.75MG TODAY THEN INCREASE TO 5MG SATURDAY/ 2.5MG X 6 DAYS ( TRY TO KEEP INR 2.0 FOR VALVES BUT LOW END TO DECREASE HEMATURIA - STILL HAS PINK URINE FROM STONE/ STENT F/U INR: WEEKLY UNTIL STABLE Patient verbalizes understanding of instructions given Anti-Coag Initial Assessment Social Hx Patient Tobacco Use Status: Former Tobacco user Tobacco use type: Cigarette alcohol intake: never Coding Level of Care Code Est Patient Level 1 Diagnoses Current use of anticoagulant therapy Z79.01 Results AMB INR Fingerstick AMB INR Fingerstick 1.9 Last Edit by Yolis Mendez RN on 06/15/24 08:55 MANUAL ENTRY Assessment & Plan Assessment & Plan (1) Current use of anticoagulant therapy: Code(s): 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
== END 2024-06-15 09:07 | disposition home or self-care (01) ==
LOC: HO.ACS 08:24
PROVIDERS: PCP Internal Medicine; Visit Provider Internal Medicine
DX: Z79.01 Long term (current) use of anticoagulants (principal)

== ENCOUNTER → 2024-06-15 08:24 | Outpatient (BNVA) | payer MEDICARE, BC, SELFPAY | PROVIDERS: PCP Internal Medicine; Visit Provider Internal Medicine | DX: I48.0 Paroxysmal atrial fibrillation (principal); Z79.01 Long term (current) use of anticoagulants; Z51.81 Encounter for therapeutic drug level monitoring | CPT/HCPCS: 85610; 99211 ==

== ENCOUNTER 2024-06-16 09:31 | Outpatient (REF) | payer MEDICARE, BC, SELFPAY ==
[2024-06-16 13:09] LABS: MANUAL DIFF FLAG NO
[2024-06-16 13:19] LABS: Basophils Percent Auto 0.5 % (0-2); Eosinophils Absolute Auto 0.1 X10*3/uL (0.0-0.4); Eosinophils Percent Auto 1.7 % (0-4); Hematocrit 40.1 % (37.0-47.0); Hemoglobin 12.8 g/dl (12.0-16.0); Imm Gran Abs Auto 0.01 X10*3/uL (0.00-0.03); Imm Gran Pct Auto 0.2 % (0.0-0.4); Lymphocytes Absolute Auto 1.4 X10*3/uL (1.2-4.9); Lymphocytes Percent Auto 32.1 % (20-40); Mean Corpuscular HGB Conc 31.9 g/dl (31.0-35.0); Mean Corpuscular Hemoglobin 27.7 pg (27.0-33.0); Mean Corpuscular Volume 86.8 fL (80.0-98.0); Monocytes Absolute Auto 0.4 X10*3/uL (0.1-1.2); Monocytes Percent Auto 8.3 % (2-11); Neutrophils Absolute Auto 2.4 x10*3/uL (2.0-8.3); Neutrophils Percent Auto 57.2 % (45-73); Platelet Count 153 X10*3/uL (160-400); Red Blood Count 4.62 X10*6/uL (4.20-5.50); Red Cell Distribution Width 16.2 % (11.0-16.0); White Blood Count 4.2 X10*3/uL (4.8-10.8)
[2024-06-16 13:52] LABS: Alanine Aminotransferase 9 U/L (0-31); Albumin Level 3.7 g/dL (3.5-5.0); Alkaline Phosphatase 102 U/L (39-117); Anion Gap 10 (12-20); Aspartate Amino Transferase 30 U/L (5-31); Blood Urea Nitrogen 13 mg/dL (9-16); Calcium 9.3 mg/dL (8.4-10.2); Carbon Dioxide 28 mmol/L (22-29); Chloride 110 mmol/L (96-108); Cholesterol 132 mg/dL (<200); Estimated Glomerular Filt Rate > 60; Glucose Fasting 97 mg/dL (60-99); HDL Cholesterol 35 mg/dL (>40); LDL Cholesterol Calculated 74 mg/dL (<100); Potassium 3.8 mmol/L (3.3-5.1); Sodium 144 mmol/L (135-145); Total Protein 6.7 g/dL (6.5-8.0); Triglycerides 118 mg/dL (<150)
[2024-06-16 13:56] LABS: TSH reflex Free T4 1.22 uIU/mL (0.32-4.0)
== END 2024-06-16 09:32 | disposition home or self-care (01) ==
LOC: HO.HMGCLDS 09:31
PROVIDERS: PCP Internal Medicine; Visit Provider Internal Medicine
DX: I13.0 Hypertensive heart and chronic kidney disease with heart failure and stage 1 through stage 4 chronic kidney disease, or unspecified chronic kidney disease (principal); N18.30 Chronic kidney disease, stage 3 unspecified; I48.91 Unspecified atrial fibrillation
CPT/HCPCS: 36415; 80053; 80061; 84443; 85025

== ENCOUNTER 2024-06-22 08:23 | Outpatient (AMB) | payer MEDICARE, BC, SELFPAY ==
--- NOTE | 2024-06-22 08:49 | MHC.OFFVISCO ---
Intake Intake Visit Reasons: Anticoagulation Allergies acetaminophen [From Vicodin] Allergy (Intermediate, Verified 06/22/24 08:33) per patient hydrocodone [From Vicodin] Allergy (Mild, Verified 06/22/24 08:33) CHEST PAIN Medication List - Last Reconciled 06/22/24 by Yolis Mendez RN acetaminophen 650 mg PO Q8H PRN albuterol sulfate 90 mcg/actuation 2 puffs inhalation Q4-6H PRN amlodipine 5 mg PO DAILY ascorbate calcium (vitamin C) 500 mg PO DAILY aspirin (Noel Low Dose Aspirin) 81 mg PO DAILY atenolol 50 mg PO DAILY atorvastatin 80 mg PO DAILY furosemide (Lasix) 40 mg PO DAILY iwhuyzxcyvgs-Tj-ovyo-minerals 1 tab PO DAILY omeprazole 20 mg PO BID@0630,1630 potassium chloride ER 30 mEq (1.5 x 20 mEq) PO DAILY vitamin B complex 1 tab PO DAILY warfarin See Protocol 2.5 mg orally 2.5MG DAILY WHILE RECOVERING MAY NEED DOSE ADJUSTMENTS; zinc gluconate 50 mg PO DAILY Nursing Note INR: 2.6 in therapeutic range Medications and supplements reviewed No changes in health, diet, medications, or supplements, Denies any signs and symptoms of bleeding or bruising or clotting. Bleeding, bruising, clotting discussed Nutritional guidance given - eat a mix of fruits and vegetables Dose: 5mg x 1 day / 2.5mg x 6 days F/U INR: 2 weeks Patient verbalizes understanding of instructions given Anti-Coag Initial Assessment Social Hx Patient Tobacco Use Status: Former Tobacco user Tobacco use type: Cigarette alcohol intake: never Coding Level of Care Code Est Patient Level 1 Diagnoses Current use of anticoagulant therapy Z79.01 Results AMB INR Fingerstick AMB INR Fingerstick 2.6 Last Edit by Yolis Mendez RN on 06/22/24 08:46 manual entry Assessment & Plan Assessment & Plan (1) Current use of anticoagulant therapy: Code(s): Z79.01 - 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
[2024-06-22 09:42] LABS: Prothrombin Time Whole Bld POC 31.1 sec (11.1-13.5); ~PT, ~INR - Anti Coag Clinic 2.6 (0.9-1.1)
== END 2024-06-22 08:51 | disposition home or self-care (01) ==
LOC: HO.ACS 08:23
PROVIDERS: PCP Internal Medicine; Visit Provider Internal Medicine
DX: Z79.01 Long term (current) use of anticoagulants (principal)

== ENCOUNTER → 2024-06-22 08:23 | Outpatient (BNVA) | payer MEDICARE, BC, SELFPAY | PROVIDERS: PCP Internal Medicine; Visit Provider Internal Medicine | DX: I48.0 Paroxysmal atrial fibrillation (principal); Z79.01 Long term (current) use of anticoagulants; Z51.81 Encounter for therapeutic drug level monitoring | CPT/HCPCS: 85610; 99211 ==

== ENCOUNTER 2024-07-06 07:59 | Outpatient (AMB) | payer MEDICARE, BC, SELFPAY ==
--- OUTSIDE RECORDS SUMMARY | 2024-07-06 08:01 | XMS_ITS | Clinical Summary ---
Author Organization [facility] Facility Address [address] [address] Care Team Providers Care Car Filler Name Role Phone Kiesha Macedo MD Primary Care Provider [phone] Social History Tobacco Use Types Packs/Day Years Used Date Smoking Tobacco: Never Assessed Comments Unknown Sex and Gender Information Value Date Recorded Sex Assigned at Not on file Legal Sex Female 8:40 AM EDT Gender Identity Not on file Sexual Orientation Not on file Plan of Treatment Health Maintenance Due Date Last Done Comments Pneumococcal Vaccine: 65+ Years (2 of 2 - PCV) 03/06/2019 03/06/2018, 04/29/2017 Influenza Vaccine (#1) 2024 0, 04/22/2019, 03/06/2018, Additional history exists Hepatitis B Vaccine Aged Out No longe r eligible based on patient's age to complete this topic Insurance MEDICARE [facility] MEDICARE [facility] Care Teams Car Filler Relationship Specialty Start Date End Date Kiesha Macedo MD 1959 [place], [place] PCP - General Internal Medicine 08/29/22
[2024-07-06 08:06] LABS: Prothrombin Time Whole Bld POC 25.8 sec (11.1-13.5); ~PT, ~INR - Anti Coag Clinic 2.2 (0.9-1.1)
--- NOTE | 2024-07-06 08:10 | MHC.OFFVISCO ---
Intake Intake Visit Reasons: Anticoagulation Allergies acetaminophen [From Vicodin] Allergy (Intermediate, Verified 07/06/24 08:01) per patient hydrocodone [From Vicodin] Allergy (Mild, Verified 07/06/24 08:01) CHEST PAIN Medication List - Last Reconciled 07/06/24 by Suzanne Valentin, RN acetaminophen 650 mg PO Q8H PRN albuterol sulfate 90 mcg/actuation 2 puffs inhalation Q4-6H PRN amlodipine 5 mg PO DAILY ascorbate calcium (vitamin C) 500 mg PO DAILY aspirin (Noel Low Dose Aspirin) 81 mg PO DAILY atenolol 50 mg PO DAILY atorvastatin 80 mg PO DAILY furosemide (Lasix) 40 mg PO DAILY lebaexicwdlu-Va-aadu-minerals 1 tab PO DAILY omeprazole 20 mg PO BID@0630,1630 potassium chloride ER 30 mEq (1.5 x 20 mEq) PO DAILY vitamin B complex 1 tab PO DAILY warfarin See Protocol 2.5 mg orally 2.5MG DAILY WHILE RECOVERING MAY NEED DOSE ADJUSTMENTS; zinc gluconate 50 mg PO DAILY Nursing Note Pt to [facility] in W/C accompanied by grandson INR: 2.2 in therapeutic range of 2-3 Medications and supplements reviewed No changes in health, diet, medications, or supplements, Denies any signs and symptoms of bleeding or bruising or clotting. Bleeding, bruising, clotting discussed Nutritional guidance given Dose: 2.5mg X 6 days and 5mg X 1 day (Mon) F/U INR: 4 weeks Patient verbalizes understanding of instructions with read back given Anti-Coag Initial Assessment Social Hx Patient Tobacco Use Status: Former Tobacco user Tobacco use type: Cigarette alcohol intake: never Coding Level of Care Code Est Patient Level 1 Diagnoses Current use of anticoagulant therapy Z79.01 Results AMB INR Fingerstick AMB INR Fingerstick 2.2 Last Edit by Suzanne Valentin, RN on 07/06/24 08:06 interface delay Assessment & Plan Assessment & Plan (1) Current use of anticoagulant therapy: Code(s): Z79.01 - [facility] (current) use of 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
== END 2024-07-06 08:14 | disposition home or self-care (01) ==
LOC: HO.ACS 07:59
PROVIDERS: PCP Internal Medicine; Visit Provider Internal Medicine
DX: Z79.01 Long term (current) use of anticoagulants (principal)

== ENCOUNTER → 2024-07-06 07:59 | Outpatient (BNVA) | payer MEDICARE, BC, SELFPAY | PROVIDERS: PCP Internal Medicine; Visit Provider Internal Medicine | DX: I48.0 Paroxysmal atrial fibrillation (principal); Z79.01 Long term (current) use of anticoagulants; Z51.81 Encounter for therapeutic drug level monitoring | CPT/HCPCS: 85610; 99211 ==

== ENCOUNTER 2024-07-14 10:06 | Outpatient (AMB) | payer MEDICARE, BC, SELFPAY ==
[2024-07-14 10:11] VITALS: BP 110/60; PULSE 95; RESP 18; TEMP 36.4; O2SAT 96; BMI 26.6
--- NOTE | 2024-07-14 10:11 | A.OFFVIS_ITS ---
Intake Vital Signs 07/14/24 10:11 Height 5 ft 4 in Weight 155 lb BMI 26.6 BP 110/60 Blood Pressure Location Lt brachial Position Sitting Respiration 18 Pulse 95 Pulse Source Pulse Oximeter Temp 97.5 F Temp Source Oral Pulse Oximetry (%) 96 Oxygen Delivery Method Room Air Intake Visit Reasons: AWV Intake Note: Pt is here today for AWV. Allergies acetaminophen [From Vicodin] Allergy (Intermediate, Verified 07/14/24 10:12) per patient hydrocodone [From Vicodin] Allergy (Mild, Verified 07/14/24 10:12) CHEST PAIN Medication List - Last Reconciled 07/14/24 by Kiesha Macedo MD acetaminophen 650 mg PO Q8H PRN albuterol sulfate 90 mcg/actuation 2 puffs inhalation Q4-6H PRN ascorbate calcium (vitamin C) 500 mg PO DAILY aspirin (Noel Low Dose Aspirin) 81 mg PO DAILY atenolol 50 mg PO DAILY atorvastatin 80 mg PO DAILY carvedilol 12.5 mg PO BID furosemide (Lasix) 40 mg PO DAILY gephomvaxouh-Zv-kbxg-minerals 1 tab PO DAILY omeprazole 20 mg PO BID@0630,1630 potassium chloride ER 30 mEq (1.5 x 20 mEq) PO DAILY vitamin B complex 1 tab PO DAILY warfarin See Protocol 2.5 mg orally 2.5MG DAILY WHILE RECOVERING MAY NEED DOSE ADJUSTMENTS; zinc gluconate 50 mg PO DAILY HPI AWV HPI Details Initiated the conversation about Advanced Directives. Advanced Directives help? patients prepare for current and future decisions about their medical treatment? and place of care. Discussed with patient that it is a process where a patients? current condition and prognosis are reviewed, their wishes for information? regarding their illness are elicited, and likely medical dilemmas are presented? and options discussed. The form can be amended as needed, reviewed yearly and? make changes as needed IPPE/AWV ? year old presents? for her ? Annual? Wellness Visit, initial visit.? Medical / Social History Reviewed? Past Medical History ?Yes? . ? [place]? of Care / Care Team list updated ?Yes . ? Surgical/Hospitalization? History ?Yes . ? Current Medications? (including OTC and supplements) ?Yes . ? Family History ?Yes? . ? Tobacco? Control form ?Yes . ? AUDIT-C (Alcohol use) form? ?Yes . ? Illicit drug use in Social? History ?Yes . ? Current diagnosis of? depression? ?No ? Appropriate PHQ2/PHQ9? completed ?Yes . ? Data entered by ?Medical? [employer] and reviewed by provider ? Fall Risk ? Fall? History? Have you had any falls with? injury in the past year? ?No . ? Have you had two or more? falls in the past year? ?No . ? Fall Risk Assessment: ?No? falls in the past year . ? HRA filled out by? the patient, reviewed by Provider and scanned. ? IPPE/AWV ? Balance? [place]? ?Yes . ? Tandem? walk ?Yes . ? Walk and? Turn ?Yes . ? Rise from? sit to stand ?Yes . ?Vision? Corrective? lens ?Yes ? Vision? screen ? Up-to-date, has an appointment [] for vision? screening and glaucoma screening ?Hearing? Whisper? test ?pass .? Initiated the conversation about Advanced Directives. Advanced Directives help? patients prepare for current and future decisions about their medical treatment? and place of care. Discussed with patient that it is a process where a patients? current condition and prognosis are reviewed, their wishes for information? regarding their illness are elicited, and likely medical dilemmas are presented? and options discussed. The form can be amended as needed, review ed yearly and? make changes as needed Written? Plan?Completed. See Patient? Documents. [facility] Medical History Chronic atrial fibrillation Chronic anticoagulation Obesity CKD (chronic kidney disease) stage 3, GFR 30-59 ml/min Nephrolithiasis, uric acid Hyperlipidemia HTN (hypertension) A-fib GORDON (obstructive sleep apnea) COPD (chronic obstructive pulmonary disease) Pulmonary HTN Severe mitral regurgitation Thiamine deficiency Osteoporosis Surgical History Hx of hernia repair History of open reduction and internal fixation (ORIF) procedure Family History Father No problems noted. Mother No problems noted. Maternal Aunt Breast cancer Social History Household Members: Spouse Housing: House Do you presently have visiting nurse or other home services: No Alcohol intake: never Patient Tobacco Use Status: Former Tobacco user Tobacco use type: Cigarette e-Cigarette/Vaping Use: Never Used Second Hand Smoke Exposure: No Advance Directives Date on File: 11/28/23 service: No Current occupational status: retired Cognitive needs: No Hearing needs: No Vision needs: No Questionnaire Medicare Wellness Checkup What is your age?: 80 or older What gender do you identify with?: female During the past 4 weeks, how much have you been bothered by emotional problems such as feeling anxious, depressed, irritable, sad or downhearted, and blue?: not at all During the past 4 weeks, has your physical & emotional health limited your social activities with family, friends, neighbors, or groups?: not at all During the past 4 weeks, how much bodily pain have you generally had?: very mild pain During the past 4 weeks, was someone available to help you if you needed & wanted help?: yes, as much as I wanted During the past 4 weeks, what was the hardest physical activity you could do for at least 2 minutes?: very light Can you get to places out of walking distance without help? (For eg., can you travel alone on buses, taxis or drive your car?): Yes Can you go shopping for groceries or clothes without someone's help?: Yes Can you prepare your own meals?: Yes Can you do your housework without help?: Yes Because of any health problems, do you need the help of another person with your personal care needs such as eating, bathing, dressing or getting around the house?: No Can you handle your own money without help?: Yes During the past 4 weeks, how would you rate your health in general?: fair During the past 4 weeks how have things been going for you?: very well; could hardly better Are you having difficulties driving your car?: no Do you always fasten your seat belt when you are in a car?: yes, usually During past 4 weeks, have you been bothered by the following: never: Falling or dizzy when standing up, Sexual problems?, Trouble eating well?, Teeth or denture problems? and Problems using the telephone? and often: Tiredness or fatigue? Have you fallen 2 or more times in the past year?: No Are you afraid of falling?: Yes Are you a smoker?: no During the past 4 weeks, how many drinks of wine, beer, or other alcoholic beverages did you have?: no alcohol at all Do you exercise for about 20 minutes 3 or more times a week?: no, I usually do not exercise this much Have you been given information to help with the following?: yes: Hazards in your house that might hurt you? and yes: Keeping track of your medications? How often do you have trouble taking medicines the way you have been told to take them?: I always take medicine as prescribed How confident are you that you can control & manage most of your health problems?: somewhat confident What is your race?: White Mini Mental State Exam (MMSE) Orientation What is the (year) (season) (date) (day) (month)?: year, season, date, day and month Where are we (state) (county) (town or city) (hospital) (floor)?: state, county, town or city, hospital/clinic and floor Registration Name of 3 unrelated objects clearly and slowly, then ask patient to repeat all 3 of them. (1st repeat determines score. Make sure they can repeat all three): object 1, object 2 and object 3 Attention & Calculation (CHOOSE ONE) Spell WORLD backwards (DLROW): 5 letters Recall Ask patient to repeat the 3 items from question #3.: object 1, object 2 and object 3 Language Show patient a wristwatch & ask what it is. Repeat for pencil.: watch and pencil Ask the patient to repeat the phrase 'No ifs, ands, or buts' after you.: correct Ask the patient to 'take a piece of paper with their right hand' 'fold paper in half' 'place paper on floor': take paper in right hand, fold paper in half and place paper on floor Print the sentence 'CLOSE YOUR EYES' on a piece. If patient actually closes eyes then score.: followed written direction Give patient a blank piece of paper & ask to write a sentence. Score if it contains a noun & verb.: sentence contains subject and verb Score Score: 29 PHQ-9 Over the last 2 weeks, how often have you been bothered by any of the following problems? 1. Little interest or pleasure in doing things: not at all 2. Feeling down, depressed, or hopeless: not at all 3. Trouble falling or staying asleep, or sleeping too much: not at all 4. Feeling tired or having little energy: several days 5. Poor appetite or overeating: not at all 6. Feeling bad about yourself - or that you are a failure or have let yourself or your family down: not at all 7. Trouble concentrating on things, such as reading the newspaper or watching television: not at all 8. Moving or speaking so slowly that other people could have noticed. Or the opposite - being so fidgety or restless that you have been moving around a lot more than usual: not at all 9. Thoughts that you would be better off or of hurting yourself in some way: not at all Total score: 1 Depression Screening Interpretation: Negative Depression Screening Done: Yes 67553 - PHQ-9 Billing: Yes Source: Developed by Drs. Tae Valentine, Becca Olivia, Silviano Stallings and colleagues, with an educational lauryn from [employer]. Review of Systems Const All systems reviewed & are unremarkable except as noted in HPI and below Eyes Reports no additional complaints ENT Reports no additional complaints Card Reports no additional complaints Resp Reports no additional complaints GI Reports no additional complaints Physical Exam Vital Signs: Last Vital Signs Temp 97.5 F 07/14/24 10:11 Pulse 95 07/14/24 10:11 Resp 18 07/14/24 10:11 BP 110/60 07/14/24 10:11 Pulse Ox 96 07/14/24 10:11 Oxygen Delivery Method Room Air 07/14/24 10:11 BMI result Body Mass Index 26.6 Const General: well developed HEENT Head: Yes normal to inspection Ears: hearing grossly normal bilaterally Neck Neck: Yes no lymphadenopathy and Yes supple Resp Effort & Inspection: normal respiratory effort Auscultation: clear to auscultation bilaterally Cardio Rhythm: regular rhythm Heart sounds: S1 normal heart sound present and S2 normal heart sound present Extrem General: Yes no clubbing, cyanosis or edema Assessment & Plan Assessment & Plan (1) HFrEF (heart failure with reduced ejection fraction): Comment: Cardiology [facility], Echo 10/2022 global left ventricular hypokinesis ejection fraction 40%, severe decreased function of right ventricle, Echo 06/2024 EF 20%-25% Code(s): I50.20 - Unspecified systolic (congestive) heart failure Plan: Blood pressure is low and amlodipine will be discontinued and atenolol changed to carvedilol 12.5 twice a day. Patient will follow-up in 2 weeks. She is being referred to wire drawing machine tender in [place] to evaluate for upgrade of pacemaker because of chronic AFib and worsening ejection fraction, continue anticoagulation with Coumadin and furosemide (2) Ureteral stent present: Comment: Follows up with Urology, ureteral stent removal is planned Code(s): Z96.0 - Presence of urogenital implants Plan: Follow-up with urology (3) CKD (chronic kidney disease) stage 3, GFR 30-59 ml/min: Code(s): N18.30 - Chronic kidney disease, stage 3 unspecified Plan: Avoid nephrotoxins monitor renal function (4) Severe mitral regurgitation: Comment: s/p MVR bioprosthetic , tricuspid valve repair 06/2020 [facility], Echo 12/22 EF 50-55% Code(s): I34.0 - Nonrheumatic mitral (valve) insufficiency Plan: Continue Coumadin (5) Pulmonary HTN: Comment: f/u Dr. Colon, [facility], PFT 2019 SEVERE RESTRICTION ,DECREASED DIFFUSING CAPACITY Code(s): I27.20 - Pulmonary hypertension, unspecified Plan: Follow-up with pulmonology Medications: New carvedilol must administer with a meal/food 12.5 mg PO BID 60 tabs 0RF Discontinued amlodipine Discontinued Reason: Doctor's Order 5 mg PO DAILY 90 tabs 3RF Quality Reporting (2019) Depression/Bipolar (159/160/161/177) PHQ-9: Total score: 1 Coding Level of Care Code Medicare Subsequent (G0439) Diagnoses HFrEF (heart failure with reduced ejection fraction) I50.20 Ureteral stent present Z96.0 CKD (chronic kidney disease) stage 3, GFR 30-59 ml/min N18.30 Severe mitral regurgitation I34.0 Pulmonary HTN I27.20 CPT Codes Advance Care Planning - Advance Care Planning discussion: On file, no changes ([id number]) Advance Care Planning - Time spent: 1-15 minutes, on File ([id number]) Additional Codes PHQ-9 - 35508 - PHQ-9 Billing: Yes ([id number]) Advance Care Planning Advance Care Planning discussion: On file, no changes Forms completed: Health Care Proxy Time spent: 1-15 minutes, on File Did not discuss due to Cultural/Spiritual beliefs: Yes
--- OUTSIDE RECORDS SUMMARY | 2024-07-14 11:13 | XMS_ITS | Clinical Summary ---
Author Organization [facility] Facility Address [address] [address] Care Team Providers Care [employer]gage Name Role Phone Kiesha Macedo MD Primary Care Provider [phone] Social History Tobacco Use Types Packs/Day Years [...] age to complete this topic Insurance MEDICARE [facility] MEDICARE [facility] Care Teams Porter Luggage Relationship Specialty Start Date End Date Kiesha Macedo MD 1959 [place], [place] PCP - General Internal Medicine 08/29/22
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
== END 2024-07-14 11:09 | disposition home or self-care (01) ==
PROVIDERS: PCP Internal Medicine; Visit Provider Internal Medicine
DX: Z00.00 Encounter for general adult medical examination without abnormal findings (principal); I50.20 Unspecified systolic (congestive) heart failure; N18.30 Chronic kidney disease, stage 3 unspecified; I27.20 Pulmonary hypertension, unspecified; Z96.0 Presence of urogenital implants; I34.0 Nonrheumatic mitral (valve) insufficiency

== ENCOUNTER → 2024-07-14 10:06 | Outpatient (BNVA) | payer MEDICARE, BC, SELFPAY | PROVIDERS: PCP Internal Medicine; Visit Provider Internal Medicine | DX: Z00.00 Encounter for general adult medical examination without abnormal findings (principal); I50.20 Unspecified systolic (congestive) heart failure; N18.30 Chronic kidney disease, stage 3 unspecified; I34.0 Nonrheumatic mitral (valve) insufficiency; I27.20 Pulmonary hypertension, unspecified; Z96.0 Presence of urogenital implants | CPT/HCPCS: 96127 ==

== ENCOUNTER 2024-07-21 08:32 | Outpatient (AMB) | payer MEDICARE, BC, SELFPAY ==
--- NOTE | 2024-07-21 08:39 | MHC.OFFVISCO ---
Intake Intake Visit Reasons: Anticoagulation Allergies acetaminophen [From Vicodin] Allergy (Intermediate, Verified 07/21/24 08:41) per patient hydrocodone [From Vicodin] Allergy (Mild, Verified 07/21/24 08:41) CHEST PAIN Medication List - Last Reconciled 07/21/24 by Ninoska Nolen, RN acetaminophen 650 mg PO Q8H PRN albuterol sulfate 90 mcg/actuation 2 puffs inhalation Q4-6H PRN amiodarone 400 mg PO BID ascorbate calcium (vitamin C) 500 mg PO DAILY aspirin (Noel Low Dose Aspirin) 81 mg PO DAILY atorvastatin 80 mg PO DAILY carvedilol 12.5 mg PO BID furosemide (Lasix) 40 mg PO DAILY dfqtuhzduyxs-Ko-llap-minerals 1 tab PO DAILY omeprazole 20 mg PO BID@0630,1630 potassium chloride ER 30 mEq (1.5 x 20 mEq) PO DAILY vitamin B complex 1 tab PO DAILY warfarin See Protocol 2.5 mg orally 2.5MG DAILY WHILE RECOVERING MAY NEED DOSE ADJUSTMENTS; zinc gluconate 50 mg PO DAILY Nursing Note INR: 2.8- in therapeutic range 2-3 Medications and supplements reviewed- atenolol and amlodipine d/c, now on carvedilol- no interaction and amiodarone 200mg bid x 1 week, will reduce to 200mg daily- will raise No changes in health, diet, medications, or supplements, Denies any signs and symptoms of bleeding or bruising or clotting. Bleeding, bruising, clotting discussed Nutritional guidance given - cont with greens Dose: 2.5mg x 6, 5mg x 1 F/U INR: 1 week Patient verbalizes understanding of instructions given pt with c.o of left hip and groin pain. 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
[2024-07-21 08:52] LABS: ~PT, ~INR - Anti Coag Clinic 2.8 (0.9-1.1)
--- OUTSIDE RECORDS SUMMARY | 2024-07-21 08:56 | XMS_ITS | Clinical Summary ---
Author Organization [facility] Facility Address [address] [address] Care Team Providers Care Shoe Fitter Name Role Phone Kiesha Macedo MD Primary Care Provider [phone] Social History Tobacco Use Types Packs/Day Years [...] age to complete this topic Insurance MEDICARE [facility] MEDICARE [facility] Care Teams Shoe Fitter Relationship Specialty Start Date End Date Kiesha Macedo MD 1959 [place], [place] PCP - General Internal Medicine 08/29/22
--- OUTSIDE RECORDS SUMMARY | 2024-07-21 08:56 | XMS_ITS | Data Portability ---
Author Organization [facility], Main Office Address [address] [facility], [facility] [address] [place] [address] Care Team Providers Care Steaming Cabinet Tender Name Role Phone LANDON FREY 1ST FLOOR OTHER [phone] Assessment Encounter Date Assessment Date Assessment LastModified by Organization Details LastModified Time 01/17/2018 01/17/2018 01/13/18 WBC 4.3, Hgb 11.8, Hct 35.1, Na 141, K 3.6, BUN 12, Performance Makeup Artist 0.62 [email or web address] Not available 01/17/2018 11:17:28 01/22/2018 01/22/201801/13: na 141, k 3.6, bun 12, creat 0.62, wbc 4.3, hgb 11.8, hct 35.1 glord Not available 01/22/2018 15:24:19 01/27/2018 01/27/2018 01/27/18 WBC 5.4, Hgb 13.7, Hct 41.3, Na 142, K 3.9, BUN 12, Performance Makeup Artist 0.59 [email or web address] Not available 01/27/2018 17:03:47 02/05/2018 02/05/201802/03: na 143, k 3.7, bun 15, creat 0.66, wbc 4.2, hgb 11.5, hct 35.2 glord Not available 02/05/2018 14:14:26 02/07/2018 02/07/2018 02/03/18 WBC 4.2, Hgb 11.5, Hct 35.2, Na 143, K 3.7, BUN 15, Performance Makeup Artist 0.66 [email or web address] Not available 02/07/2018 16:44:48 Plan [...] Address Organization Details Recorded Time Pulmonary hypertension 82724446 Active [address], [address], [place], [address], [employer] 8 16:34:20 Obstructive sleep apnea syndrome 82400435 Active [address], [address], [place], [address], [employer] 8 16:34:24 Mitral valve regurgitation 22535612 Active [address], [address], [place], [address], [employer] 8 16:34:38 Aortic valve regurgitation 87031619 Active [address], [address], [place], [address], [employer] 8 16:34:44 Fracture of shaft of femur 89413223 Active [address], [address], [place], [address], [employer] 8 16:35:57 Essential hypertension 33874446 Active [address], [address], [place], [address], [employer] 8 16:36:05 Chronic disease of respiratory system 73900577 Active [address], [address], [place], [address], [employer] 8 16:36:13 Gout 98416506 Active [address], [address], [place], [address], [employer] 8 16:44:07 Qiolq-lt-dwbta ic respiratory failure 77023425 Active 2017 Sho Houser MD [address] [facility], [address], [place], [address], [facility] [employer] [facility] 8 20:08:21 Fracture of shaft of femur 85285636 Active 2017 Sho Houser MD [address] [place] [address], [address], [place], [address], [facility] 8 20:11:04 Solitary nodule of lung 586388920 Active 2017 Sho Houser MD [address] [place] [address], [facility] [address], [place], [address], [facility] [employer] 8 20:17:21 Mixed hyperlipidemia 128387218 Active 2017 Sho Houser MD [address] [place] [address], [facility] [address], [place], [address], [facility] 8 20:19:54 Problem Notes None recorded. Medical Equipment None Reported. Allergies Allergen ID Allergen Name Allergen Category Reaction Reaction Severity Criticality Documentation Date Start Date Code Code System Note Provider Name and Address Organization Details Recorded Time 28465 acetamino phen / hydrocodo ne medicatio n Not available Not available Not available 12/18/2017 89161 2 RxNorm Not Available Not Available Not [...] 138 mm[Hg] 62 mm[Hg] VANESSA HARDEN [address] [facility], [facility] [address], [place], [address], [employer] 8 11:11:37 Date Recorded Body height Heart rate Respiratory rate Provider Name and Address Organization Details Last Updated DateTime 01/22/2018 163.07 cm 72 /min 16 /min LIGIA LEMUS [address] [facility], [facility] [address], [place], [address], [place] [employer] 01/22/2018 15:29:09 Date Recorded Body height Body temperature Heart rate Respiratory rate Oxygen saturation Oxygen saturation in Arterial blood by Pulse oximetry Systolic blood pressure Diastolic blood pressure Provider Name and Address Organization Details Last Updated DateTime 8 163.07 cm 97.2 [degF] 68 /min 18 /min 94 % 94 % 106 mm[Hg] 49 mm[Hg] JOSUE FERRERAVANESSA SCHULTZ [address] [facility], [facility] [address], [place], [address], [facility] 8 16:58:27 Date Recorded Body height Heart rate Respiratory rate Body temperature Provider Name and Address Organization Details Last Updated DateTime 02/05/2018 163.07 cm 70 /min 16 /min 97.1 [degF] LIGIA LEMUS [address] [facility], [facility] [address], [place], [address] , [employer] [facility] 02/05/2018 14:25:46 Date Recorded Body height Heart rate Respiratory rate Body temperature Oxygen saturation Oxygen saturation in Arterial blood by Pulse oximetry Systolic blood pressure Diastolic blood pressure Provider Name and Address Organization Details Last Updated DateTime 8 163.07 cm 61 /min 18 /min 98.1 [degF] 98 % 98 % 116 mm[Hg] 56 mm[Hg] JOSUEVANESSA DEVINE [address] [facility], [facility] [address], [place], [address], [employer] [facility] 8 16:42:44 Social History Question Answer Notes LastModified by Organizat ion Details LastModified Time Tobacco Smoking Status Unknown If Ever Smoked Not Available [facility] 03/29/2020 03:13:20 Do You Have An Advance Directive? Yes Full Code [id number] Information not available 03/29/2020 What Was The Date Of Your Most Recent Tobacco Screening? 02/07/2018 [id number] Information not available 03/29/2020 Sex: Unknown Functional Status None recorded. Mental Status None recorded. Family History Nothing Reported. Medical History No medical history recorded. Gynecological HistoryNo gynecological history recorded. Obstetrics History GPAL:G 0 P 0 0 0 0 Past Encounters Encounter ID Performer Location Encounter Start Date Encounter Closed Date Diagnosis/Indication Diagnosis SNOMED-CT Code Diagnosis ICD10 Code Diagnosis Note [id number] LIGIA FREY [address] [facility] [place] [address] 12/18/2017 16:36:21 12/23/2017 16:12:52 Pulmonary hypertension 67453589 I27.0 lasix 40 mg dailyfollo w up with cards in 1-2 weeksObtai n follow up chest xray in 1 week to see if pulm edema has resolvedco nt. 02 PRN to keep sats above 92% Fracture o f shaft of femur 75335608 S72.324D Tylenol 650 mg TID scheduledP ercocet PRN for severe painPT/OT eval and treatbrace on right knee at all times Essential hypertension 78269888 I10 Continue atenolol 50 mg dailylosar infante 100 mg dailyamlod ipine 5 mg dailynitro 0.4 sl prnmonitor bps daily Gout 41573906 M10.061 allopurino l 100 mg dailyasa 81 mg daily [id number] Sho Houser MD [address] [place] [address] 12/19/2017 17:49:22 12/24/2017 08:23:57 Pulmonary hypertension 33811972 I27.0 As above, also on lasix 40 mg qd with KCl 10 meq BID. Will f/u with cardio as planned, may need MVR, as this is thought part of the reason for her pulmonary HTN. Will repeat CXR next week to reassess pulmonary edema.Cont . 02 as above. Fracture o f shaft of femur 77106126 S72.324D Will need PT/OT for strengthen ing [...] times. F/U ortho as planned. Essential hypertension 25500651 I10 Good control on atenolol 50 mg qd, losartan 100 mg qd, amlodipine 5 mg qd and nitro 0.4 sl prnMonitor BP and labs. Gout 73734982 M10.061 Continue allopurino l 100 mg qd. Monitor for sxs. Solitary n odule of lung 558554655 R91.1 Will f/u with pulmonary for assessment . Acute-on-c hronic respiratory failure 27823572 J96.21 J96.12 On O2 at baseline, with acute worsening inpt. likely secondary to pulmonary HTN (see below). Continue O2 by NC, titrated to keep sats above between 90-94% so as not to induce hypercapni a. Will f/u with pulmonary and cardio. Obstructiv e sleep apnea syndrome 52222635 G47.33 Continue CPAP as usual. Mixed hyperlipidemia 267 943497 E78.2 Continue atorvastat in 80 mg qd and ASA 81 mg qd. Monitor labs as outpt. [id number] VANESSA HARDEN [address] [place] [address] 12/27/2017 17:27:17 01/02/2018 15:17:31 Chronic disease of respiratory system 57110823 J98.9 she has not needed her oxygen at this time but knows she can use it if neededshe is seeing pulmonolog y on saturday for a follow up Obstructiv e sleep apnea syndrome 33714371 G47.33 she feels her cpap is not working rightwill order oxygen 2 liters via nc at night for nowmonitor Fracture o f shaft of femur 00733173 S72.8X1S continues with lidoderm patches on right legsees ortho next weekawaiti ng decision about next stepcontin ues non weight bearing status [id number] Sal Esparza MD [facility] [address] [place] [address] 01/15/2018 10:09:17 01/28/2018 13:33:13 Fracture of shaft of femur 07939967 S72.391D inform ortho of eventxray at facility to reeval [id number] VANESSA [address]ARDEN [address] [address] 01/17/2018 11:10:56 01/28/2018 13:53:07 Essential hypertension 45038326 I10 norvasc 5 mg qdatenolol 50 mg qdlasix 40 mg qdlosartan potassium 100 mg qdmonitor b/p and labs Chronic di sease of respiratory system 65403742 J98.9 she follows with pulmonolog yshe uses oxygen as neededmoni tor respirator y status Fracture o f shaft of femur 87278991 S72.8X1S continues with lidoderm patches on right leg non weight bearing status follows with orthofelt she hurt it worsex-ray was negative and said there was the healing fracturewa nts CT results from ortho but doesn't see them til 30 thmonitor [id number] LIGIA NAVARRETE SHANTE [address] [place], [place] [address] [address] 01/22/2018 15:15:11 01/28/2018 14:03:23 Essential hypertension 20346236 I10 norvasc 5 mg qdatenolol 50 mg qdlasix 40 mg qdlosartan potassium 100 mg qdmonitor b/p and labs Chronic di sease of respiratory system 02134533 J98.9 Follows with pulmonolog yCPAP at bedtime while sleeping she uses oxygen as neededmoni tor respirator y status Fracture o f shaft of femur 66512421 S72.8X1S continues with lidoderm patches on right leg non weight bearing status, toe touch only follow up with ortho this saturday to determine weight bearing statusmoni tor for pain controltyl enol 650 mg q 8 hours PRN [id number] VANESSA HARDEN [address] [place] [address] 01/27/2018 16:57:24 02/12/2018 08:38:08 Fracture of shaft of femur 34855005 S72.8X1S continues with lidoderm patches on right legfollows with orthotoe touch allowedhom e visit this weekcontin ues with therapy Essential hypertension 39671924 I10 norvasc 5 mg qdatenolol 50 mg qdlasix 40 mg qdlosartan potassium 100 mg qdmonitor b/p and labs Mixed hyperlipidemia 267 826597 E78.2 carries diagnosisn ot on medication monitor labs [id number] LIGIA LEMUS [place] [address] [place] [address] 02/05/2018 14:10:52 02/12/2018 11:56:12 Fracture of shaft of femur 22453669 S72.8X1S continues with lidoderm patches on right legfollows with ortho in 4 weekstoe touch allowed only at this timecontin ues with therapyHom e eval went well, question possible discharge by the end of this week D/C colace 100 mg daily due to loose stools Essential hypertension 69124943 I10 norvasc 5 mg qdatenolol 50 mg qdlasix 40 mg qdlosartan potassium 100 mg qdmonitor b/p and labs [id number] VANESSA HARDEN [address] [place] [address] [place] [address] 02/07/2018 16:41:46 02/12/2018 12:03:29 Fracture of shaft of femur 18677066 S72.8X1S continues with lidoderm patches on right legfollows with orthotoe touch allowedtyl enol 650 mg q 8 hrspercoce t q 4 hrs prnfollow up with ortho Essential hypertension 29910314 I10 ASA 81 mgnorvasc 5 mg qdatenolol 50 mg qdlasix 40 mg qdpotassiu m 10 meq qdlosartan potassium 100 mg qdfollow up with PCP Mixed hyperlipidemia 267 978199 E78.2 atorvastat in 80 mg qd follow up with PCP Obstructiv e sleep apnea syndrome 80944918 G47.33 continue home CPAPfollow up with PCP Gout 98186331 M10.49 allopurino l 100 mg qdfollow up with PCP Chronic di sease of respiratory system 00840438 J98.9 she follows with pulmonolog yshe uses [...] ID Grant Member ID Guarantor Name 01/17/2018 2 [place] Ramona Pinon [id number] Ramona Pinon 01/17/2018 1 [place] [employer] [employer] Ramona Pinon [id number] Ramona Pinon 01/22/2018 2 [place] Ramona Pinon [id number] Ramona Pinon 01/22/2018 1 [place] [employer] Ramona Pinon [id number] Ramona Pinon 01/27/2018 2 [place] Ramona Pinon [id number] Ramona Pinon 01/27/2018 1 [place] [employer] [place] Ramona Pinon [id number] Ramona Pinon 02/05/2018 2 [place] Ramona Pinon [id number] Ramona Pinon 02/05/2018 1 [place] [facility] Ramona Pinon [id number] Ramona Pinon 02/07/2018 2 [facility] [employer] [place] [employer] Ramona Pinon [id number] Ramona Pinon 02/07/2018 1 [place] [facility] Ramona Pinon [id number] Ramona Pinon Notes Date Note Type Note [...] been working with therapy. VANESSA HARDEN [address] [facility], [address], [place], [address], [employer] 01/17/2018 11:55:52 01/22/2018 text/html A 77 year old female being seen today for acute rounding visit. Pt has follow up with ortho this saturday to determine if she can move to weight bearing status. Otherwise she has no new health concerns at this time. LIGIA LEMUS [address] [facility], [address], [place], [address], [employer] 01/22/2018 15:31:01 01/27/2018 text/html A 77 year old female being seen for a acute rounding visit. She has been working with therapy and will have a home visit soon. She is toe touch at this time. She sees ortho in 5 weeks. Staff notes no concerns at this time. VANESSA HARDEN [address] [facility], [address], [place], [address], [employer] 01/27/2018 17:14:53 02/05/2018 text/html A 77 year [...] for loose stool often. LIGIA LEMUS [address] [facility], [address], [place], [address], [facility] 02/05/2018 14:25:49 02/07/2018 text/html A 77 year [...] disease and pulmonary hypertension. VANESSA HARDEN [address] [facility], [address], [place], [address], [facility] 02/07/2018 16:59:57 OBGyn Episode No OBEpisode recorded.
== END 2024-07-21 09:05 | disposition home or self-care (01) ==
PROVIDERS: PCP Internal Medicine; Visit Provider Internal Medicine
DX: Z79.01 Long term (current) use of anticoagulants (principal)

== ENCOUNTER → 2024-07-21 08:32 | Outpatient (BNVA) | payer MEDICARE, BC, SELFPAY | PROVIDERS: PCP Internal Medicine; Visit Provider Internal Medicine | DX: I48.0 Paroxysmal atrial fibrillation (principal); Z79.01 Long term (current) use of anticoagulants; Z51.81 Encounter for therapeutic drug level monitoring | CPT/HCPCS: 85610; 99211 ==

== ENCOUNTER 2024-07-23 09:29 | Outpatient (REF) | payer MEDICARE, BC, SELFPAY ==
--- NOTE | ~2024-07-23 | XR_ITS ---
EXAMINATION: XR HIP, LEFT CLINICAL INFORMATION: M25.552 - Pain in left hip COMPARISON: None available. TECHNIQUE: Two views of the left hip. FINDINGS: Mild osteopenia. No fracture, dislocation, or suspicious bone lesion. Normal alignment of the left hip joint. Mild spurring of the superolateral acetabulum. Joint space is preserved. Intramedullary rubi within the proximal femoral metadiaphysis without complication or loosening. There is a healed mid diaphyseal femoral fracture. Imaged pelvis intact. Partially imaged right ureteral stent. Diffuse vascular calcifications in the soft tissues. XR/XR hip LT min 2V IMPRESSION: No acute findings left hip. Electronically signed by: He Hernandez MD 07/23/2024 10:14 AM TOBI CLAUDIO
--- OUTSIDE RECORDS SUMMARY | 2024-07-23 10:18 | XMS_ITS | Clinical Summary ---
Author Organization [facility] Facility Address [address] [address] Care Team Providers Care Balance Truing Inspector Name Role Phone Kiesha Macedo MD Primary Care Provider [phone] Social History Tobacco Use Types Packs/Day Years [...] age to complete this topic Insurance MEDICARE [facility] MEDICARE [facility] Care Teams Balance Truing Inspector Relationship Specialty Start Date End Date Kiesha Macedo MD [address] [place], [place] PCP - General Internal Medicine 08/29/22
--- OUTSIDE RECORDS SUMMARY | 2024-07-23 10:18 | XMS_ITS | Data Portability ---
Author Organization [facility], Main Office Address [address] [facility], [facility] [address] [place] [address] Care Team Providers [employer] Name Role Phone LANDON FREY 1ST FLOOR OTHER Assessment Encounter Date Assessment Date Assessment LastModified by Organization Details LastModified Time 01/17/2018 01/17/2018 01/13/18 WBC 4.3, Hgb 11.8, Hct 35.1, Na 141, K 3.6, BUN 12, Project Construction Manager 0.62 [email or web address] Not available 01/17/2018 11:17:28 01/22/2018 01/22/201801/13: na 141, k 3.6, bun 12, creat 0.62, wbc 4.3, hgb 11.8, hct 35.1 glord Not available 01/22/2018 15:24:19 01/27/2018 01/27/2018 01/27/18 WBC 5.4, Hgb 13.7, Hct 41.3, Na 142, K 3.9, BUN 12, Project Construction Manager 0.59 [email or web address] Not available 01/27/2018 17:03:47 02/05/2018 02/05/201802/03: na 143, k 3.7, bun 15, creat 0.66, wbc 4.2, hgb 11.5, hct 35.2 glord Not available 02/05/2018 14:14:26 02/07/2018 02/07/2018 02/03/18 WBC 4.2, Hgb 11.5, Hct 35.2, Na 143, K 3.7, BUN 15, Project Construction Manager 0.66 [email or web address] Not available 02/07/2018 16:44:48 Plan [...] Address Organization Details Recorded Time Pulmonary hypertension 61723659 Active [address], [address], [place], [address], [facility] 8 16:34:20 Obstructive sleep apnea syndrome 96945976 Active [address], [address], [place], [address], [facility] 8 16:34:24 Mitral valve regurgitation 84872239 Active [address], [address], [place], [address], [facility] 8 16:34:38 Aortic valve regurgitation 29821325 Active [address], [address], [place], [address], [facility] 8 16:34:44 Fracture of shaft of femur 61359885 Active [address], [address], [place], [address], [facility] 8 16:35:57 Essential hypertension 52096161 Active [address], [address], [place], [address], [facility] 8 16:36:05 Chronic disease of respiratory system 30465686 Active [address], [address], [place], [address], [facility] 8 16:36:13 Gout 21395964 Active [address], [address], [place], [address], [facility] 8 16:44:07 Wjzxi-zp-nrnwt ic respiratory failure 20154640 Active 2017 Sho Houser MD [address] [facility], [address], [place], [address], [facility] 8 20:08:21 Fracture of shaft of femur 63047281 Active 2017 Sho Houser MD [address] [place] [address], [address], [place], [address], [facility] [employer] [facility] 8 20:11:04 Solitary nodule of lung 447975374 Active 2017 Sho Houser MD [address] [place] [address], [facility] [address], [place], [address], [facility] 8 20:17:21 Mixed hyperlipidemia 278006981 Active 2017 Sho Houser MD [address] [place] [address], [facility] [address], [place], [address], [facility] [employer] [facility] 8 20:19:54 Problem Notes None recorded. Medical Equipment None Reported. Allergies Allergen ID Allergen Name Allergen Category Reaction Reaction Severity Criticality Documentation Date Start Date Code Code System Note Provider Name and Address Organization Details Recorded Time 44606 acetamino phen / hydrocodo ne medicatio n Not available Not available Not available 12/18/2017 57216 2 RxNorm Not Available Not Available Not [...] 138 mm[Hg] 62 mm[Hg] VANESSA HARDEN [address] [facility], [facility] [address], [place], [address], [facility] 8 11:11:37 Date Recorded Body height Heart rate Respiratory rate Provider Name and Address Organization Details Last Updated DateTime 01/22/2018 163.07 cm 72 /min 16 /min LIGIA LEMUS [address] [facility], [facility] [address], [place], [address], [place] [employer] 01/22/2018 15:29:09 Date Recorded Body height Body temperature Heart rate Respiratory rate Oxygen saturation Oxygen saturation in Arterial blood by Pulse oximetry Systolic blood pressure Diastolic blood pressure Provider Name and Address Organization Details Last Updated DateTime 8 163.07 cm 97.2 [degF] 68 /min 18 /min 94 % 94 % 106 mm[Hg] 49 mm[Hg] JOSUE FERRERAVANESSA SCHULTZ [address] [facility], [facility] [address], [place], [address], [facility] 8 16:58:27 Date Recorded Body height Heart rate Respiratory rate Body temperature Provider Name and Address Organization Details Last Updated DateTime 02/05/2018 163.07 cm 70 /min 16 /min 97.1 [degF] LIGIA LEMUS [address] [facility], [facility] [address], [place], [address] , [employer] [facility] 02/05/2018 14:25:46 Date Recorded Body height Heart rate Respiratory rate Body temperature Oxygen saturation Oxygen saturation in Arterial blood by Pulse oximetry Systolic blood pressure Diastolic blood pressure Provider Name and Address Organization Details Last Updated DateTime 8 163.07 cm 61 /min 18 /min 98.1 [degF] 98 % 98 % 116 mm[Hg] 56 mm[Hg] JOSUEVANESSA DEVINE [address] [facility], [facility] [address], [place], [address], [employer] [facility] 8 16:42:44 Social History Question Answer Notes LastModified by Organizat ion Details LastModified Time Tobacco Smoking Status Unknown If Ever Smoked Not Available [facility] 03/29/2020 03:13:20 Do You Have An Advance Directive? Yes Full Code [id number] Information not available 03/29/2020 What Was The Date Of Your Most Recent Tobacco Screening? 02/07/2018 [id number] Information not available 03/29/2020 Sex: Unknown Functional Status None recorded. Mental Status None recorded. Family History Nothing Reported. Medical History No medical history recorded. Gynecological HistoryNo gynecological history recorded. Obstetrics History GPAL:G 0 P 0 0 0 0 Past Encounters Encounter ID Performer Location Encounter Start Date Encounter Closed Date Diagnosis/Indication Diagnosis SNOMED-CT Code Diagnosis ICD10 Code Diagnosis Note [id number] LIGIA FREY [address] [facility] [place] [address] 12/18/2017 16:36:21 12/23/2017 16:12:52 Pulmonary hypertension 58719104 I27.0 lasix 40 mg dailyfollo w up with cards in 1-2 weeksObtai n follow up chest xray in 1 week to see if pulm edema has resolvedco nt. 02 PRN to keep sats above 92% Fracture o f shaft of femur 28184862 S72.324D Tylenol 650 mg TID scheduledP ercocet PRN for severe painPT/OT eval and treatbrace on right knee at all times Essential hypertension 62556672 I10 Continue atenolol 50 mg dailylosar infante 100 mg dailyamlod ipine 5 mg dailynitro 0.4 sl prnmonitor bps daily Gout 05062212 M10.061 allopurino l 100 mg dailyasa 81 mg daily [id number] Sho Houser MD [address] [place] [address] 12/19/2017 17:49:22 12/24/2017 08:23:57 Pulmonary hypertension 87120042 I27.0 As above, also on lasix 40 mg qd with KCl 10 meq BID. Will f/u with cardio as planned, may need MVR, as this is thought part of the reason for her pulmonary HTN. Will repeat CXR next week to reassess pulmonary edema.Cont . 02 as above. Fracture o f shaft of femur 86635987 S72.324D Will need PT/OT for strengthen ing [...] times. F/U ortho as planned. Essential hypertension 64020878 I10 Good control on atenolol 50 mg qd, losartan 100 mg qd, amlodipine 5 mg qd and nitro 0.4 sl prnMonitor BP and labs. Gout 45872404 M10.061 Continue allopurino l 100 mg qd. Monitor for sxs. Solitary n odule of lung 981245166 R91.1 Will f/u with pulmonary for assessment . Acute-on-c hronic respiratory failure 45678344 J96.21 J96.12 On O2 at baseline, with acute worsening inpt. likely secondary to pulmonary HTN (see below). Continue O2 by NC, titrated to keep sats above between 90-94% so as not to induce hypercapni a. Will f/u with pulmonary and cardio. Obstructiv e sleep apnea syndrome 92833176 G47.33 Continue CPAP as usual. Mixed hyperlipidemia 267 109833 E78.2 Continue atorvastat in 80 mg qd and ASA 81 mg qd. Monitor labs as outpt. [id number] VANESSA HARDEN [address] [place] [address] 12/27/2017 17:27:17 01/02/2018 15:17:31 Chronic disease of respiratory system 46207608 J98.9 she has not needed her oxygen at this time but knows she can use it if neededshe is seeing pulmonolog y on saturday for a follow up Obstructiv e sleep apnea syndrome 66445734 G47.33 she feels her cpap is not working rightwill order oxygen 2 liters via nc at night for nowmonitor Fracture o f shaft of femur 39785359 S72.8X1S continues with lidoderm patches on right legsees ortho next weekawaiti ng decision about next stepcontin ues non weight bearing status [id number] Sal Esparza MD [facility] [address] [place] [address] 01/15/2018 10:09:17 01/28/2018 13:33:13 Fracture of shaft of femur 68058312 S72.391D inform ortho of eventxray at facility to reeval [id number] [address] 01/17/2018 11:10:56 01/28/2018 13:53:07 Essential hypertension 49178423 I10 norvasc 5 mg qdatenolol 50 mg qdlasix 40 mg qdlosartan potassium 100 mg qdmonitor b/p and labs Chronic di sease of respiratory system 55618960 J98.9 she follows with pulmonolog yshe uses oxygen as neededmoni tor respirator y status Fracture o f shaft of femur 08861566 S72.8X1S continues with lidoderm patches on right leg non weight bearing status follows with orthofelt she hurt it worsex-ray was negative and said there was the healing fracturewa nts CT results from ortho but doesn't see them til 30 thmonitor [id number] LIGIA NAVARRETE SHANTE [address] [place], [place] [address] [address] 01/22/2018 15:15:11 01/28/2018 14:03:23 Essential hypertension 59671529 I10 norvasc 5 mg qdatenolol 50 mg qdlasix 40 mg qdlosartan potassium 100 mg qdmonitor b/p and labs Chronic di sease of respiratory system 65019251 J98.9 Follows with pulmonolog yCPAP at bedtime while sleeping she uses oxygen as neededmoni tor respirator y status Fracture o f shaft of femur 27467140 S72.8X1S continues with lidoderm patches on right leg non weight bearing status, toe touch only follow up with ortho this saturday to determine weight bearing statusmoni tor for pain controltyl enol 650 mg q 8 hours PRN [id number] VANESSA HARDEN [address] [place] [address] 01/27/2018 16:57:24 02/12/2018 08:38:08 Fracture of shaft of femur 36864054 S72.8X1S continues with lidoderm patches on right legfollows with orthotoe touch allowedhom e visit this weekcontin ues with therapy Essential hypertension 38545819 I10 norvasc 5 mg qdatenolol 50 mg qdlasix 40 mg qdlosartan potassium 100 mg qdmonitor b/p and labs Mixed hyperlipidemia 267 625787 E78.2 carries diagnosisn ot on medication monitor labs [id number] LIGIA LEMUS [place] [address] [facility] [place] [address] 02/05/2018 14:10:52 02/12/2018 11:56:12 Fracture of shaft of femur 54425340 S72.8X1S continues with lidoderm patches on right legfollows with ortho in 4 weekstoe touch allowed only at this timecontin ues with therapyHom e eval went well, question possible discharge by the end of this week D/C colace 100 mg daily due to loose stools Essential hypertension 04455436 I10 norvasc 5 mg qdatenolol 50 mg qdlasix 40 mg qdlosartan potassium 100 mg qdmonitor b/p and labs [id number] VANESSA [address]ARDEN [address] [place] [address] [place] [address] 02/07/2018 16:41:46 02/12/2018 12:03:29 Fracture of shaft of femur 61851159 S72.8X1S continues with lidoderm patches on right legfollows with orthotoe touch allowedtyl enol 650 mg q 8 hrspercoce t q 4 hrs prnfollow up with ortho Essential hypertension 49188795 I10 ASA 81 mgnorvasc 5 mg qdatenolol 50 mg qdlasix 40 mg qdpotassiu m 10 meq qdlosartan potassium 100 mg qdfollow up with PCP Mixed hyperlipidemia 267 612360 E78.2 atorvastat in 80 mg qd follow up with PCP Obstructiv e sleep apnea syndrome 37064893 G47.33 continue home CPAPfollow up with PCP Gout 10187429 M10.49 allopurino l 100 mg qdfollow up with PCP Chronic di sease of respiratory system 98799259 J98.9 she follows with pulmonolog yshe uses [...] 2 [place] Ramona Pinon [id number] Ramona Pinon 01/17/2018 1 [place] Ramona Pinon [id number] Ramona Pinon 01/22/2018 2 [place] Ramona Pinon [id number] Ramona Pinon 01/22/2018 1 [place] Ramona Pinon [id number] Ramona Pinon 01/27/2018 2 [place] Ramona Pinon [id number] Ramona Pinon 01/27/2018 1 [place] [place] Ramona Pinon [id number] Ramona Pinon 02/05/2018 2 [place] Ramona Pinon [id number] Ramona Pinon 02/05/2018 1 [place] [facility] Ramona Pnion [id number] Ramona Pinon 02/07/2018 2 [facility] [employer] [place] Ramona Pinon [id number] Ramona Pinon 02/07/2018 1 [place] [facility] Ramona Pinon [id number] Ramona Pinon Notes Date Note Type Note [...] been working with therapy. VANESSA HARDEN [address] [facility], [address], [place], [address], [facility] 01/17/2018 11:55:52 01/22/2018 text/html A 77 year old female being seen today for acute rounding visit. Pt has follow up with ortho this saturday to determine if she can move to weight bearing status. Otherwise she has no new health concerns at this time. LIGIA LEMUS [address] [facility], [address], [place], [address], [facility] 01/22/2018 15:31:01 01/27/2018 text/html A 77 year old female being seen for a acute rounding visit. She has been working with therapy and will have a home visit soon. She is toe touch at this time. She sees ortho in 5 weeks. Staff notes no concerns at this time. VANESSA HARDEN [address] [facility], [address], [place], [address], [facility] 01/27/2018 17:14:53 02/05/2018 text/html A 77 year [...] for loose stool often. LIGIA LEMUS [address] [facility], [address], [place], [address], [facility] [employer] [facility] 02/05/2018 14:25:49 02/07/2018 text/html A 77 [...] disease and pulmonary hypertension. VANESSA HARDEN [address] [facility], [address], [place], [address], [facility] [employer] [facility] 02/07/2018 16:59:57 OBGyn Episode No OBEpisode recorded.
== END 2024-07-23 09:30 | disposition home or self-care (01) ==
LOC: HO.XRAY 09:29
PROVIDERS: PCP Internal Medicine; Visit Provider Internal Medicine
DX: M25.552 Pain in left hip (principal)
CPT/HCPCS: 73502

== ENCOUNTER → 2024-07-23 09:39 | Outpatient (BNV) | payer MEDICARE, BC, SELFPAY | PROVIDERS: PCP Internal Medicine; Visit Provider Radiology Diagnostic Radiology | DX: M25.552 Pain in left hip (principal) | CPT/HCPCS: 73502 ==

== ENCOUNTER 2024-07-27 08:34 | Outpatient (AMB) | payer MEDICARE, BC, SELFPAY ==
[2024-07-27 08:53] LABS: Prothrombin Time Whole Bld POC 55.4 sec (11.1-13.5); ~PT, ~INR - Anti Coag Clinic 4.6 (0.9-1.1)
--- OUTSIDE RECORDS SUMMARY | 2024-07-27 08:58 | XMS_ITS | Data Portability ---
Author Organization [facility], Main Office Address [address] [facility], [facility] [address] [place] [address] Care Team Providers Care Pumping Station Supervisor Name Role Phone LANDON FREY 1ST FLOOR OTHER Assessment Encounter Date Assessment Date Assessment LastModified by Organization Details LastModified Time 01/17/2018 01/17/2018 01/13/18 WBC 4.3, Hgb 11.8, Hct 35.1, Na 141, K 3.6, BUN 12, Banquet Attendant 0.62 [email or web address] Not available 01/17/2018 11:17:28 01/22/2018 01/22/201801/13: na 141, k 3.6, bun 12, creat 0.62, wbc 4.3, hgb 11.8, hct 35.1 glord Not available 01/22/2018 15:24:19 01/27/2018 01/27/2018 01/27/18 WBC 5.4, Hgb 13.7, Hct 41.3, Na 142, K 3.9, BUN 12, Banquet Attendant 0.59 [email or web address] Not available 01/27/2018 17:03:47 02/05/2018 02/05/201802/03: na 143, k 3.7, bun 15, creat 0.66, wbc 4.2, hgb 11.5, hct 35.2 glord Not available 02/05/2018 14:14:26 02/07/2018 02/07/2018 02/03/18 WBC 4.2, Hgb 11.5, Hct 35.2, Na 143, K 3.7, BUN 15, Banquet Attendant 0.66 [email or web address] Not available 02/07/2018 16:44:48 Plan [...] Address Organization Details Recorded Time Pulmonary hypertension 61795198 Active [address], [address], [place], [address], [employer] [facility] 8 16:34:20 Obstructive sleep apnea syndrome 35505397 Active [address], [address], [place], [address], [facility] 8 16:34:24 Mitral valve regurgitation 26139367 Active [address], [address], [place], [address], [facility] 8 16:34:38 Aortic valve regurgitation 90545691 Active [address], [address], [place], [address], [facility] 8 16:34:44 Fracture of shaft of femur 67945276 Active [address], [address], [place], [address], [facility] 8 16:35:57 Essential hypertension 06474659 Active [address], [address], [place], [address], [facility] 8 16:36:05 Chronic disease of respiratory system 47455109 Active [address], [address], [place], [address], [facility] 8 16:36:13 Gout 03821120 Active [address], [address], [place], [address], [facility] 8 16:44:07 Modyg-nm-rheqe ic respiratory failure 75192230 Active 2017 Sho Houser MD [address] [facility], [address], [place], [address], [facility] [employer] 8 20:08:21 Fracture of shaft of femur 18073341 Active 2017 Sho Houser MD [address] [place] [address], [address], [place], [address], [facility] [employer] [facility] 8 20:11:04 Solitary nodule of lung 050814816 Active 2017 Sho Houser MD [address] [place] [address], [facility] [address], [place], [address], [facility] [employer] 8 20:17:21 Mixed hyperlipidemia 271578366 Active 2017 Sho Houser MD [address] [place] [address], [facility] [address], [place], [address], [facility] [employer] [facility] 8 20:19:54 Problem Notes None recorded. Medical Equipment None Reported. Allergies Allergen ID Allergen Name Allergen Category Reaction Reaction Severity Criticality Documentation Date Start Date Code Code System Note Provider Name and Address Organization Details Recorded Time 64465 acetamino phen / hydrocodo ne medicatio n Not available Not available Not available 12/18/2017 87357 2 RxNorm Not Available Not Available Not [...] 138 mm[Hg] 62 mm[Hg] VANESSA HARDEN [address] [facility], [facility] [address], [place], [address], [facility] 8 11:11:37 Date Recorded Body height Heart rate Respiratory rate Provider Name and Address Organization Details Last Updated DateTime 01/22/2018 163.07 cm 72 /min 16 /min LIGIA LEMUS [address] [facility], [facility] [address], [place], [address], [place] [employer] 01/22/2018 15:29:09 Date Recorded Body height Body temperature Heart rate Respiratory rate Oxygen saturation Oxygen saturation in Arterial blood by Pulse oximetry Systolic blood pressure Diastolic blood pressure Provider Name and Address Organization Details Last Updated DateTime 8 163.07 cm 97.2 [degF] 68 /min 18 /min 94 % 94 % 106 mm[Hg] 49 mm[Hg] JOSUE FERRERAVANESSA SCHULTZ [address] [facility], [facility] [address], [place], [address], [facility] [employer] [facility] 8 16:58:27 Date Recorded Body height Heart rate Respiratory rate Body temperature Provider Name and Address Organization Details Last Updated DateTime 02/05/2018 163.07 cm 70 /min 16 /min 97.1 [degF] LIGIA LEMUS [address] [facility], [facility] [address], [place], [address] , [employer] [facility] 02/05/2018 14:25:46 Date Recorded Body height Heart rate Respiratory rate Body temperature Oxygen saturation Oxygen saturation in Arterial blood by Pulse oximetry Systolic blood pressure Diastolic blood pressure Provider Name and Address Organization Details Last Updated DateTime 8 163.07 cm 61 /min 18 /min 98.1 [degF] 98 % 98 % 116 mm[Hg] 56 mm[Hg] JOSUEVANESSA DEVINE [address] [facility], [facility] [address], [place], [address], [employer] [facility] 8 16:42:44 Social History Question Answer Notes LastModified by Organizat ion Details LastModified Time Tobacco Smoking Status Unknown If Ever Smoked Not Available [facility] 03/29/2020 03:13:20 Do You Have An Advance Directive? Yes Full Code [id number] Information not available 03/29/2020 What Was The Date Of Your Most Recent Tobacco Screening? 02/07/2018 [id number] Information not available 03/29/2020 Sex: Unknown Functional Status None recorded. Mental Status None recorded. Family History Nothing Reported. Medical History No medical history recorded. Gynecological HistoryNo gynecological history recorded. Obstetrics History GPAL:G 0 P 0 0 0 0 Past Encounters Encounter ID Performer Location Encounter Start Date Encounter Closed Date Diagnosis/Indication Diagnosis SNOMED-CT Code Diagnosis ICD10 Code Diagnosis Note [id number] LIGIA FREY [address] [facility] [place] [address] 12/18/2017 16:36:21 12/23/2017 16:12:52 Pulmonary hypertension 00947459 I27.0 lasix 40 mg dailyfollo w up with cards in 1-2 weeksObtai n follow up chest xray in 1 week to see if pulm edema has resolvedco nt. 02 PRN to keep sats above 92% Fracture o f shaft of femur 58003920 S72.324D Tylenol 650 mg TID scheduledP ercocet PRN for severe painPT/OT eval and treatbrace on right knee at all times Essential hypertension 04769496 I10 Continue atenolol 50 mg dailylosar infante 100 mg dailyamlod ipine 5 mg dailynitro 0.4 sl prnmonitor bps daily Gout 60437687 M10.061 allopurino l 100 mg dailyasa 81 mg daily [id number] Sho Houser MD [address] [place] [address] 12/19/2017 17:49:22 12/24/2017 08:23:57 Pulmonary hypertension 59804504 I27.0 As above, also on lasix 40 mg qd with KCl 10 meq BID. Will f/u with cardio as planned, may need MVR, as this is thought part of the reason for her pulmonary HTN. Will repeat CXR next week to reassess pulmonary edema.Cont . 02 as above. Fracture o f shaft of femur 01345548 S72.324D Will need PT/OT for strengthen ing [...] times. F/U ortho as planned. Essential hypertension 50178655 I10 Good control on atenolol 50 mg qd, losartan 100 mg qd, amlodipine 5 mg qd and nitro 0.4 sl prnMonitor BP and labs. Gout 31306364 M10.061 Continue allopurino l 100 mg qd. Monitor for sxs. Solitary n odule of lung 834738351 R91.1 Will f/u with pulmonary for assessment . Acute-on-c hronic respiratory failure 72081815 J96.21 J96.12 On O2 at baseline, with acute worsening inpt. likely secondary to pulmonary HTN (see below). Continue O2 by NC, titrated to keep sats above between 90-94% so as not to induce hypercapni a. Will f/u with pulmonary and cardio. Obstructiv e sleep apnea syndrome 51597779 G47.33 Continue CPAP as usual. Mixed hyperlipidemia 267 224651 E78.2 Continue atorvastat in 80 mg qd and ASA 81 mg qd. Monitor labs as outpt. [id number] VANESSA HARDEN [address] [place] [address] 12/27/2017 17:27:17 01/02/2018 15:17:31 Chronic disease of respiratory system 80863027 J98.9 she has not needed her oxygen at this time but knows she can use it if neededshe is seeing pulmonolog y on saturday for a follow up Obstructiv e sleep apnea syndrome 53333682 G47.33 she feels her cpap is not working rightwill order oxygen 2 liters via nc at night for nowmonitor Fracture o f shaft of femur 56807974 S72.8X1S continues with lidoderm patches on right legsees ortho next weekawaiti ng decision about next stepcontin ues non weight bearing status [id number] [facility] [address] [place] [address] 01/15/2018 10:09:17 01/28/2018 13:33:13 Fracture of shaft of femur 78773142 S72.391D inform ortho of eventxray at facility to reeval [id number] VANESSA HARDEN [address] [address] 01/17/2018 11:10:56 01/28/2018 13:53:07 Essential hypertension 55450258 I10 norvasc 5 mg qdatenolol 50 mg qdlasix 40 mg qdlosartan potassium 100 mg qdmonitor b/p and labs Chronic di sease of respiratory system 68850083 J98.9 she follows with pulmonolog yshe uses oxygen as neededmoni tor respirator y status Fracture o f shaft of femur 52180308 S72.8X1S continues with lidoderm patches on right leg non weight bearing status follows with orthofelt she hurt it worsex-ray was negative and said there was the healing fracturewa nts CT results from ortho but doesn't see them til 30 thmonitor [id number] LIGIA NAVARRETE SHANTE [address] [place], [place] [address] [address] 01/22/2018 15:15:11 01/28/2018 14:03:23 Essential hypertension 99014828 I10 norvasc 5 mg qdatenolol 50 mg qdlasix 40 mg qdlosartan potassium 100 mg qdmonitor b/p and labs Chronic di sease of respiratory system 29621197 J98.9 Follows with pulmonolog yCPAP at bedtime while sleeping she uses oxygen as neededmoni tor respirator y status Fracture o f shaft of femur 32305362 S72.8X1S continues with lidoderm patches on right leg non weight bearing status, toe touch only follow up with ortho this saturday to determine weight bearing statusmoni tor for pain controltyl enol 650 mg q 8 hours PRN [id number] VANESSA HARDEN [address] [place] [address] 01/27/2018 16:57:24 02/12/2018 08:38:08 Fracture of shaft of femur 45586628 S72.8X1S continues with lidoderm patches on right legfollows with orthotoe touch allowedhom e visit this weekcontin ues with therapy Essential hypertension 74048145 I10 norvasc 5 mg qdatenolol 50 mg qdlasix 40 mg qdlosartan potassium 100 mg qdmonitor b/p and labs Mixed hyperlipidemia 267 410188 E78.2 carries diagnosisn ot on medication monitor labs [id number] LIGIA LEMUS Van [address] [facility] [place] [address] 02/05/2018 14:10:52 02/12/2018 11:56:12 Fracture of shaft of femur 06333565 S72.8X1S continues with lidoderm patches on right legfollows with ortho in 4 weekstoe touch allowed only at this timecontin ues with therapyHom e eval went well, question possible discharge by the end of this week D/C colace 100 mg daily due to loose stools Essential hypertension 28874851 I10 norvasc 5 mg qdatenolol 50 mg qdlasix 40 mg qdlosartan potassium 100 mg qdmonitor b/p and labs [id number] VANESSA HARDEN [address] [place] [address] [place] [address] 02/07/2018 16:41:46 02/12/2018 12:03:29 Fracture of shaft of femur 74505865 S72.8X1S continues with lidoderm patches on right legfollows with orthotoe touch allowedtyl enol 650 mg q 8 hrspercoce t q 4 hrs prnfollow up with ortho Essential hypertension 02160950 I10 ASA 81 mgnorvasc 5 mg qdatenolol 50 mg qdlasix 40 mg qdpotassiu m 10 meq qdlosartan potassium 100 mg qdfollow up with PCP Mixed hyperlipidemia 267 235578 E78.2 atorvastat in 80 mg qd follow up with PCP Obstructiv e sleep apnea syndrome 71711176 G47.33 continue home CPAPfollow up with PCP Gout 80134064 M10.49 allopurino l 100 mg qdfollow up with PCP Chronic di sease of respiratory system 55769549 J98.9 she follows with pulmonolog yshe uses [...] 2 [place] Ramona Pinon [id number] Ramona Pinon 01/17/2018 1 [place] Ramona Pinon [id number] Ramona Pinon 01/22/2018 2 [place] Ramona Pinon [id number] Ramona Pinon 01/22/2018 1 [place] [place] Ramona Pinon [id number] Ramona Pinon 01/27/2018 2 [place] Ramona Pinon [id number] Ramona Pinon 01/27/2018 1 [place] [place] Ramona Pinon [id number] Ramona Pinon 02/05/2018 2 [place] Ramona Pinon [id number] Ramona Pinon 02/05/2018 1 [place] [facility] Ramona Pinon [id number] Ramona Pinon 02/07/2018 2 [facility] Ramona Pinon [id number] Ramona Pinon 02/07/2018 1 [place] [facility] Ramona Pinon [id number] Ramona Pinon Notes Date Note Type Note [...] been working with therapy. VANESSA HARDEN [address] [facility], [address], [place], [address], [employer] [facility] 01/17/2018 11:55:52 01/22/2018 text/html A 77 year old female being seen today for acute rounding visit. Pt has follow up with ortho this saturday to determine if she can move to weight bearing status. Otherwise she has no new health concerns at this time. LIGIA LEMUS [address] [facility], [address], [place], [address], [facility] 01/22/2018 15:31:01 01/27/2018 text/html A 77 year old female being seen for a acute rounding visit. She has been working with therapy and will have a home visit soon. She is toe touch at this time. She sees ortho in 5 weeks. Staff notes no concerns at this time. VANESSA HARDEN [address] [facility], [address], [place], [address], [facility] 01/27/2018 17:14:53 02/05/2018 text/html A 77 year [...] for loose stool often. LIGIA LEMUS [address] [facility], [address], [place], [address], [facility] [employer] [facility] 02/05/2018 14:25:49 02/07/2018 text/html A [...] disease and pulmonary hypertension. VANESSA HARDEN [address] [facility], [address], [place], [address], [facility] [employer] [facility] 02/07/2018 16:59:57 OBGyn Episode No OBEpisode recorded.
--- OUTSIDE RECORDS SUMMARY | 2024-07-27 08:58 | XMS_ITS | Clinical Summary ---
Author Organization [facility] Facility Address [address] [address] Care Team Providers Care Sales Operations Specialist Name Role Phone Kiesha Macedo MD Primary Care Provider [phone] Social History Tobacco Use Types Packs/Day Years [...] age to complete this topic Insurance MEDICARE [facility] MEDICARE [facility] Care Teams Sales Operations Specialist Relationship Specialty Start Date End Date Kiesha Macedo MD [address] [place], [place] PCP - General Internal Medicine 08/29/22
--- NOTE | 2024-07-27 09:06 | MHC.OFFVISCO ---
Intake Intake Visit Reasons: Anticoagulation Allergies acetaminophen [From Vicodin] Allergy (Intermediate, Verified 07/21/24 08:41) per patient hydrocodone [From Vicodin] Allergy (Mild, Verified 07/21/24 08:41) CHEST PAIN Medication List - Last Reconciled 07/27/24 by Suzanne Valentin, RN acetaminophen 650 mg PO Q8H PRN albuterol sulfate 90 mcg/actuation 2 puffs inhalation Q4-6H PRN amiodarone 400 mg PO BID ascorbate calcium (vitamin C) 500 mg PO DAILY aspirin (Noel Low Dose Aspirin) 81 mg PO DAILY atorvastatin 80 mg PO DAILY carvedilol 12.5 mg PO BID furosemide (Lasix) 40 mg PO DAILY yqdszeelemak-Cf-aaxz-minerals 1 tab PO DAILY omeprazole 20 mg PO BID@0630,1630 potassium chloride ER 30 mEq (1.5 x 20 mEq) PO DAILY vitamin B complex 1 tab PO DAILY warfarin See Protocol 2.5 mg orally 2.5MG DAILY WHILE RECOVERING MAY NEED DOSE ADJUSTMENTS; zinc gluconate 50 mg PO DAILY Nursing Note Pt to [facility] in W/C accompanied by son in law. INR: 4.6 out of therapeutic range 2-3 Medications and supplements reviewed Patient status: well Medications or supplements: had started amiodarone last visit which increases the INR Diet: usual diet for pt Denies any signs and symptoms of bleeding or clotting or unusual bruising Bleeding, bruising, clotting discussed Nutritional guidance given: to have 2-3 servings of greens over the next week Dose: pt already took today's dose so will hold tomorrow's dose of 2.5mg then decrease weekly dose by 3.75mg which is 2.5mg X 6 days and 1.25mg X 1 day F/U INR Date : 1 week Patient verbalizing understanding of instructions given. Anti-Coag Initial Assessment Social Hx Patient Tobacco Use Status: Former Tobacco user Tobacco use type: Cigarette alcohol intake: never Coding Level of Care Code Est Patient Level 1 Diagnoses Current use of anticoagulant therapy Z79.01 Assessment & Plan Assessment & Plan (1) Current use of anticoagulant therapy: Code(s): Z79.01 - correction (current) use of 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
== END 2024-07-27 09:11 | disposition home or self-care (01) ==
LOC: HO.ACS 08:34
PROVIDERS: PCP Internal Medicine; Visit Provider Internal Medicine
DX: Z79.01 Long term (current) use of anticoagulants (principal)

== ENCOUNTER → 2024-07-27 08:34 | Outpatient (BNVA) | payer MEDICARE, BC, SELFPAY | PROVIDERS: PCP Internal Medicine; Visit Provider Internal Medicine | DX: I48.0 Paroxysmal atrial fibrillation (principal); Z79.01 Long term (current) use of anticoagulants; Z51.81 Encounter for therapeutic drug level monitoring | CPT/HCPCS: 85610; 99211 ==

== ENCOUNTER 2024-08-03 08:03 | Outpatient (AMB) | payer MEDICARE, BC, SELFPAY ==
--- OUTSIDE RECORDS SUMMARY | 2024-08-03 08:11 | XMS_ITS | Data Portability ---
Author Organization [facility], Main Office Address [address] [facility], [facility] [address] [place] [address] Care Team Providers Care Shop Laborer Name Role Phone LANDON FREY 1ST FLOOR OTHER Assessment Encounter Date Assessment Date Assessment LastModified by Organization Details LastModified Time 01/17/2018 01/17/2018 01/13/18 WBC 4.3, Hgb 11.8, Hct 35.1, Na 141, K 3.6, BUN 12, Extraction Supervisor 0.62 [email or web address] Not available 01/17/2018 11:17:28 01/22/2018 01/22/201801/13: na 141, k 3.6, bun 12, creat 0.62, wbc 4.3, hgb 11.8, hct 35.1 glord Not available 01/22/2018 15:24:19 01/27/2018 01/27/2018 01/27/18 WBC 5.4, Hgb 13.7, Hct 41.3, Na 142, K 3.9, BUN 12, Extraction Supervisor 0.59 [email or web address] Not available 01/27/2018 17:03:47 02/05/2018 02/05/201802/03: na 143, k 3.7, bun 15, creat 0.66, wbc 4.2, hgb 11.5, hct 35.2 glord Not available 02/05/2018 14:14:26 02/07/2018 02/07/2018 02/03/18 WBC 4.2, Hgb 11.5, Hct 35.2, Na 143, K 3.7, BUN 15, Extraction Supervisor 0.66 [email or web address] Not available 02/07/2018 16:44:48 Plan [...] Address Organization Details Recorded Time Pulmonary hypertension 52353673 Active [address], [address], [place], [address], [facility] 8 16:34:20 Obstructive sleep apnea syndrome 71544895 Active [address], [address], [place], [address], [facility] 8 16:34:24 Mitral valve regurgitation 26182834 Active [address], [address], [place], [address], [facility] 8 16:34:38 Aortic valve regurgitation 34756753 Active [address], [address], [place], [address], [facility] 8 16:34:44 Fracture of shaft of femur 70854513 Active [address], [address], [place], [address], [facility] 8 16:35:57 Essential hypertension 33347900 Active [address], [address], [place], [address], [facility] 8 16:36:05 Chronic disease of respiratory system 54308384 Active [address], [address], [place], [address], [facility] 8 16:36:13 Gout 59095901 Active [address], [address], [place], [address], [facility] 8 16:44:07 Bfnjm-ka-hylks ic respiratory failure 39280462 Active 2017 Sho Houser MD [address] [facility], [address], [place], [address], [facility] [employer] 8 20:08:21 Fracture of shaft of femur 19876264 Active 2017 Sho Houser MD [address] [place] [address], [address], [place], [address], [facility] [employer] [facility] 8 20:11:04 Solitary nodule of lung 940279487 Active 2017 Sho Houser MD [address] [place] [address], [facility] [address], [place], [address], [facility] [employer] 8 20:17:21 Mixed hyperlipidemia 351655026 Active 2017 Sho Houser MD [address] [place] [address], [facility] [address], [place], [address], [facility] [employer] [facility] 8 20:19:54 Problem Notes None recorded. Medical Equipment None Reported. Allergies Allergen ID Allergen Name Allergen Category Reaction Reaction Severity Criticality Documentation Date Start Date Code Code System Note Provider Name and Address Organization Details Recorded Time 71185 acetamino phen / hydrocodo ne medicatio n Not available Not available Not available 12/18/2017 03114 2 RxNorm Not Available Not Available Not [...] 138 mm[Hg] 62 mm[Hg] VANESSA HARDEN [address] [facility], [facility] [address], [place], [address], [facility] 8 11:11:37 Date Recorded Body height Heart rate Respiratory rate Provider Name and Address Organization Details Last Updated DateTime 01/22/2018 163.07 cm 72 /min 16 /min LIGIA LEMUS [address] [facility], [facility] [address], [place], [address], [place] [employer] 01/22/2018 15:29:09 Date Recorded Body height Body temperature Heart rate Respiratory rate Oxygen saturation Oxygen saturation in Arterial blood by Pulse oximetry Systolic blood pressure Diastolic blood pressure Provider Name and Address Organization Details Last Updated DateTime 8 163.07 cm 97.2 [degF] 68 /min 18 /min 94 % 94 % 106 mm[Hg] 49 mm[Hg] JOSUE FERRERAVANESSA SCHULTZ [address] [facility], [facility] [address], [place], [address], [facility] [employer] 8 16:58:27 Date Recorded Body height Heart rate Respiratory rate Body temperature Provider Name and Address Organization Details Last Updated DateTime 02/05/2018 163.07 cm 70 /min 16 /min 97.1 [degF] LIGIA LEMUS [address] [facility], [facility] [address], [place], [address] , [employer] 02/05/2018 14:25:46 Date Recorded Body height Heart rate Respiratory rate Body temperature Oxygen saturation Oxygen saturation in Arterial blood by Pulse oximetry Systolic blood pressure Diastolic blood pressure Provider Name and Address Organization Details Last Updated DateTime 8 163.07 cm 61 /min 18 /min 98.1 [degF] 98 % 98 % 116 mm[Hg] 56 mm[Hg] JOSUEVANESSA DEVINE [address] [facility], [facility] [address], [place], [address], [employer] [facility] 8 16:42:44 Social History Question Answer Notes LastModified by Organizat ion Details LastModified Time Tobacco Smoking Status Unknown If Ever Smoked Not Available [facility] 03/29/2020 03:13:20 Do You Have An Advance Directive? Yes Full Code [id number] Information not available 03/29/2020 What Was The Date Of Your Most Recent Tobacco Screening? 02/07/2018 [id number] Information not available 03/29/2020 Sex: Unknown Functional Status None recorded. Mental Status None recorded. Family History Nothing Reported. Medical History No medical history recorded. Gynecological HistoryNo gynecological history recorded. Obstetrics History GPAL:G 0 P 0 0 0 0 Past Encounters Encounter ID Performer Location Encounter Start Date Encounter Closed Date Diagnosis/Indication Diagnosis SNOMED-CT Code Diagnosis ICD10 Code Diagnosis Note [id number] LIGIA FREY [address] [facility] [place] [address] 12/18/2017 16:36:21 12/23/2017 16:12:52 Pulmonary hypertension 64682102 I27.0 lasix 40 mg dailyfollo w up with cards in 1-2 weeksObtai n follow up chest xray in 1 week to see if pulm edema has resolvedco nt. 02 PRN to keep sats above 92% Fracture o f shaft of femur 16655392 S72.324D Tylenol 650 mg TID scheduledP ercocet PRN for severe painPT/OT eval and treatbrace on right knee at all times Essential hypertension 64778920 I10 Continue atenolol 50 mg dailylosar infante 100 mg dailyamlod ipine 5 mg dailynitro 0.4 sl prnmonitor bps daily Gout 12576758 M10.061 allopurino l 100 mg dailyasa 81 mg daily [id number] Sho Houser MD [address] [place] [address] 12/19/2017 17:49:22 12/24/2017 08:23:57 Pulmonary hypertension 38678660 I27.0 As above, also on lasix 40 mg qd with KCl 10 meq BID. Will f/u with cardio as planned, may need MVR, as this is thought part of the reason for her pulmonary HTN. Will repeat CXR next week to reassess pulmonary edema.Cont . 02 as above. Fracture o f shaft of femur 24925270 S72.324D Will need PT/OT for strengthen ing [...] times. F/U ortho as planned. Essential hypertension 81284710 I10 Good control on atenolol 50 mg qd, losartan 100 mg qd, amlodipine 5 mg qd and nitro 0.4 sl prnMonitor BP and labs. Gout 57046067 M10.061 Continue allopurino l 100 mg qd. Monitor for sxs. Solitary n odule of lung 648299122 R91.1 Will f/u with pulmonary for assessment . Acute-on-c hronic respiratory failure 41001174 J96.21 J96.12 On O2 at baseline, with acute worsening inpt. likely secondary to pulmonary HTN (see below). Continue O2 by NC, titrated to keep sats above between 90-94% so as not to induce hypercapni a. Will f/u with pulmonary and cardio. Obstructiv e sleep apnea syndrome 49101534 G47.33 Continue CPAP as usual. Mixed hyperlipidemia 267 201700 E78.2 Continue atorvastat in 80 mg qd and ASA 81 mg qd. Monitor labs as outpt. [id number] VANESSA HARDEN [address] [place] [address] 12/27/2017 17:27:17 01/02/2018 15:17:31 Chronic disease of respiratory system 17950660 J98.9 she has not needed her oxygen at this time but knows she can use it if neededshe is seeing pulmonolog y on saturday for a follow up Obstructiv e sleep apnea syndrome 58242914 G47.33 she feels her cpap is not working rightwill order oxygen 2 liters via nc at night for nowmonitor Fracture o f shaft of femur 01170595 S72.8X1S continues with lidoderm patches on right legsees ortho next weekawaiti ng decision about next stepcontin ues non weight bearing status [id number] Sal Esparza MD [facility] [address] [place] [address] 01/15/2018 10:09:17 01/28/2018 13:33:13 Fracture of shaft of femur 01963903 S72.391D inform ortho of eventxray at facility to reeval [id number] VANESSA HARDEN [address] [address] 01/17/2018 11:10:56 01/28/2018 13:53:07 Essential hypertension 88848233 I10 norvasc 5 mg qdatenolol 50 mg qdlasix 40 mg qdlosartan potassium 100 mg qdmonitor b/p and labs Chronic di sease of respiratory system 00527398 J98.9 she follows with pulmonolog yshe uses oxygen as neededmoni tor respirator y status Fracture o f shaft of femur 20933821 S72.8X1S continues with lidoderm patches on right leg non weight bearing status follows with orthofelt she hurt it worsex-ray was negative and said there was the healing fracturewa nts CT results from ortho but doesn't see them til 30 thmonitor [id number] LIGIA NAVARRETE SHANTE [address] [place], [place] [address] [address] 01/22/2018 15:15:11 01/28/2018 14:03:23 Essential hypertension 73896618 I10 norvasc 5 mg qdatenolol 50 mg qdlasix 40 mg qdlosartan potassium 100 mg qdmonitor b/p and labs Chronic di sease of respiratory system 39035513 J98.9 Follows with pulmonolog yCPAP at bedtime while sleeping she uses oxygen as neededmoni tor respirator y status Fracture o f shaft of femur 90610851 S72.8X1S continues with lidoderm patches on right leg non weight bearing status, toe touch only follow up with ortho this saturday to determine weight bearing statusmoni tor for pain controltyl enol 650 mg q 8 hours PRN [id number] VANESSA HARDEN [address] [place] [address] 01/27/2018 16:57:24 02/12/2018 08:38:08 Fracture of shaft of femur 44367281 S72.8X1S continues with lidoderm patches on right legfollows with orthotoe touch allowedhom e visit this weekcontin ues with therapy Essential hypertension 76899347 I10 norvasc 5 mg qdatenolol 50 mg qdlasix 40 mg qdlosartan potassium 100 mg qdmonitor b/p and labs Mixed hyperlipidemia 267 324987 E78.2 carries diagnosisn ot on medication monitor labs [id number] LIGIA LEMUS [place] [address] [place] [address] 02/05/2018 14:10:52 02/12/2018 11:56:12 Fracture of shaft of femur 19736966 S72.8X1S continues with lidoderm patches on right legfollows with ortho in 4 weekstoe touch allowed only at this timecontin ues with therapyHom e eval went well, question possible discharge by the end of this week D/C colace 100 mg daily due to loose stools Essential hypertension 36723388 I10 norvasc 5 mg qdatenolol 50 mg qdlasix 40 mg qdlosartan potassium 100 mg qdmonitor b/p and labs [id number] VANESSA HARDEN [address] [place] [address] [place] [address] 02/07/2018 16:41:46 02/12/2018 12:03:29 Fracture of shaft of femur 34337122 S72.8X1S continues with lidoderm patches on right legfollows with orthotoe touch allowedtyl enol 650 mg q 8 hrspercoce t q 4 hrs prnfollow up with ortho Essential hypertension 66479801 I10 ASA 81 mgnorvasc 5 mg qdatenolol 50 mg qdlasix 40 mg qdpotassiu m 10 meq qdlosartan potassium 100 mg qdfollow up with PCP Mixed hyperlipidemia 267 888850 E78.2 atorvastat in 80 mg qd follow up with PCP Obstructiv e sleep apnea syndrome 53453209 G47.33 continue home CPAPfollow up with PCP Gout 81405697 M10.49 allopurino l 100 mg qdfollow up with PCP Chronic di sease of respiratory system 87183691 J98.9 she follows with pulmonolog yshe uses [...] 2 [place] [employer] [place] [employer] Ramona Pinon [id number] Ramona Pinon 01/17/2018 1 [place] [place] Ramona Pinon [id number] Ramona Pinon 01/22/2018 2 [place] Ramona Pinon [id number] Ramona Pinon 01/22/2018 1 [place] Ramona Pinon [id number] Ramona Pinon 01/27/2018 2 [place] Ramona Pinon [id number] Ramona Pinon 01/27/2018 1 [place] [employer] Ramona Pinon [id number] Ramona Pinon 02/05/2018 2 [place] Ramona Pinon [id number] Ramona Pinon 02/05/2018 1 [place]: [facility] Ramona Pinon [id number] Ramona Pinon 02/07/2018 2 [facility] [employer] [place] Ramona Pinon [id number] Ramona Pinon 02/07/2018 1 [place]: [facility] Ramona Pinon [id number] Ramona Pinon Notes Date Note Type Note [...] been working with therapy. VANESSA HARDEN [address] [facility], [address], [place], [address], [facility] 01/17/2018 11:55:52 01/22/2018 text/html A 77 year old female being seen today for acute rounding visit. Pt has follow up with ortho this saturday to determine if she can move to weight bearing status. Otherwise she has no new health concerns at this time. LIGIA LEMUS [address] [facility], [address], [place], [address], [facility] 01/22/2018 15:31:01 01/27/2018 text/html A 77 year old female being seen for a acute rounding visit. She has been working with therapy and will have a home visit soon. She is toe touch at this time. She sees ortho in 5 weeks. Staff notes no concerns at this time. VANESSA HARDEN [address] [facility], [address], [place], [address], [facility] 01/27/2018 17:14:53 02/05/2018 text/html A 77 year [...] for loose stool often. LIGIA LEMUS [address] [facility], [address], [place], [address], [facility] [employer] [facility] 02/05/2018 14:25:49 02/07/2018 text/html A 77 [...] disease and pulmonary hypertension. VANESSA HARDEN [address] [facility], [address], [place], [address], [facility] [employer] [facility] 02/07/2018 16:59:57 OBGyn Episode No OBEpisode recorded.
--- OUTSIDE RECORDS SUMMARY | 2024-08-03 08:11 | XMS_ITS | Clinical Summary ---
Author Organization [facility] Facility Address [address] [address] Care Team Providers Care Roll Cleaner Name Role Phone Kiesha Macedo MD Primary Care Provider [phone] Social History Tobacco Use Types Packs/Day Years [...] age to complete this topic Insurance [facility] Care Teams Roll Cleaner Relationship Specialty Start Date End Date Kiesha Macedo MD [address] [place], [place] PCP - General Internal Medicine 08/29/22
[2024-08-03 08:12] LABS: Prothrombin Time Whole Bld POC 41.3 sec (11.1-13.5); ~PT, ~INR - Anti Coag Clinic 3.4 (0.9-1.1)
--- NOTE | 2024-08-03 08:17 | MHC.OFFVISCO ---
Intake Intake Visit Reasons: Anticoagulation Allergies acetaminophen [From Vicodin] Allergy (Intermediate, Verified 08/03/24 08:05) per patient hydrocodone [From Vicodin] Allergy (Mild, Verified 08/03/24 08:05) CHEST PAIN Medication List - Last Reconciled 08/03/24 by Yolis Mendez RN acetaminophen 650 mg PO Q8H PRN albuterol sulfate 90 mcg/actuation 2 puffs inhalation Q4-6H PRN amiodarone 200 mg PO DAILY ascorbate calcium (vitamin C) 500 mg PO DAILY aspirin (Noel Low Dose Aspirin) 81 mg PO DAILY atorvastatin 80 mg PO DAILY carvedilol 12.5 mg PO BID furosemide (Lasix) 40 mg PO DAILY qhzerqyodppy-Cl-kcpu-minerals 1 tab PO DAILY omeprazole 20 mg PO BID@0630,1630 potassium chloride ER 30 mEq (1.5 x 20 mEq) PO DAILY vitamin B complex 1 tab PO DAILY warfarin See Protocol 2.5 mg orally 2.5MG DAILY WHILE RECOVERING MAY NEED DOSE ADJUSTMENTS; zinc gluconate 50 mg PO DAILY Nursing Note comes in via wheelchair with [place], c/o arhtralgias of hip and leg - has had xrays planning for cardioversion after 4 good INR values INR: 3.4 in therapeutic range Medications and supplements reviewed No changes in health, diet, medications, or supplements, Denies any signs and symptoms of bleeding or bruising or clotting. Bleeding, bruising, clotting discussed Nutritional guidance given - have greens but not a lot- explaine better INR to be over range than under for cardioveriosn. Dose: keep as planned 1.25mg mon/ 2.5mg x 6 days F/U INR: weekly Patient verbalizes understanding of instructions given Anti-Coag Initial Assessment Social Hx Patient Tobacco Use Status: Former Tobacco user Tobacco use type: Cigarette alcohol intake: never Coding Level of Care Code Est Patient Level 1 Diagnoses Current use of anticoagulant therapy Z79.01 Results AMB INR Fingerstick AMB INR Fingerstick 3.4 Last Edit by Yolis Mendez RN on 08/03/24 08:16 MANUAL ENTRY Assessment & Plan Assessment & Plan (1) Current use of anticoagulant therapy: Code(s): Z79.01 - assisted (current) use of 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
== END 2024-08-03 08:25 | disposition home or self-care (01) ==
LOC: HO.ACS 08:03
PROVIDERS: PCP Internal Medicine; Visit Provider Internal Medicine
DX: Z79.01 Long term (current) use of anticoagulants (principal)

== ENCOUNTER → 2024-08-03 08:03 | Outpatient (BNVA) | payer MEDICARE, BC, SELFPAY | PROVIDERS: PCP Internal Medicine; Visit Provider Internal Medicine | DX: I48.0 Paroxysmal atrial fibrillation (principal); Z79.01 Long term (current) use of anticoagulants; Z51.81 Encounter for therapeutic drug level monitoring | CPT/HCPCS: 85610; 99211 ==

== ENCOUNTER 2024-08-04 09:39 | Outpatient (REF) | payer MEDICARE, BC, SELFPAY ==
--- OUTSIDE RECORDS SUMMARY | 2024-08-04 12:40 | XMS_ITS | Clinical Summary ---
Author Organization [facility] Facility Address [address] [address] Care Team Providers Care Car Sales Associate Name Role Phone Kiesha Macedo MD Primary Care Provider [phone] Social History Tobacco Use Types Packs/Day Years [...] MEDICARE [facility] Care Teams Car Sales Associate Relationship Specialty Start Date End Date Kiesha Macedo MD 1959 [place], [place] PCP - General Internal Medicine 08/29/22
[2024-08-04 13:36] LABS: B Type Natriuretic Peptide 1190 pg/mL (<100)
[2024-08-04 13:43] LABS: Anion Gap 11 (12-20); Blood Urea Nitrogen 17 mg/dL (9-16); Calcium 9.5 mg/dL (8.4-10.2); Carbon Dioxide 29 mmol/L (22-29); Chloride 108 mmol/L (96-108); Estimated Glomerular Filt Rate > 60; Glucose Random 117 mg/dL (60-115); Potassium 4.2 mmol/L (3.3-5.1); Sodium 144 mmol/L (135-145)
[2024-08-04 14:00] LABS: TSH reflex Free T4 2.03 uIU/mL (0.32-4.0)
== END 2024-08-04 09:40 | disposition home or self-care (01) ==
LOC: HO.HMGCLDS 09:39
PROVIDERS: PCP Internal Medicine; Visit Provider Internal Medicine
DX: I50.20 Unspecified systolic (congestive) heart failure (principal); I48.20 Chronic atrial fibrillation, unspecified; J44.9 Chronic obstructive pulmonary disease, unspecified; G57.02 Lesion of sciatic nerve, left lower limb; Z79.01 Long term (current) use of anticoagulants; Z79.899 Other long term (current) drug therapy; Z96.0 Presence of urogenital implants
CPT/HCPCS: 36415; 80048; 83880; 84443; 96127; 99212

== ENCOUNTER 2024-08-04 09:39 | Outpatient (AMB) | payer MEDICARE, BC, SELFPAY ==
[2024-08-04 09:41] VITALS: BP 106/64; PULSE 86; RESP 20; O2SAT 98; BMI 26.6
--- NOTE | 2024-08-04 09:41 | MHC.PC.OV ---
Vital Signs 08/04/24 09:41 Height 5 ft 4 in Weight 155 lb BMI 26.6 BP 106/64 Blood Pressure Location Lt brachial Position Sitting Respiration 20 Pulse 86 Pulse Source Pulse Oximeter Temp Source Oral Pulse Oximetry (%) 98 Oxygen Delivery Method Room Air Intake Visit Reasons: 3 week follow up Intake Note: Pt is here today for 3 weeks follow up visit. Allergies acetaminophen [From Vicodin] Allergy (Intermediate, Verified 08/03/24 08:05) per patient hydrocodone [From Vicodin] Allergy (Mild, Verified 08/03/24 08:05) CHEST PAIN Tobacco use date assessed: 08/04/24 Fall risk assessment: No Falls in past year Last assessed Fall Risk: 08/04/24 Dental Screening Dental Screen Date: 08/04/24 Did you have a dental visit in the last 12 months?: Yes Did you have a dental problem in the last 6 months where you did not have access to dental care?: No Was dental information given to patient?: Patient has dentist HPI 3 week follow up HPI Details Patient presents for the follow-up of heart failure with reduced ejection fraction, tachycardia induced cardiomyopathy chronic atrial fibrillation. Patient was started on amiodarone by coin machine servicer repairer 3 weeks ago and is planned to have cardioversion. Echocardiogram thie month showed lower ejection fraction at 20-25%. She complains of dyspnea on exertion but denies PND or orthopnea. Patient has been tolerating carvedilol well but the blood pressure remains low but stable. She complains of chronic left leg and buttock pain worse when sitting for long time. She denies any weakness in extremities but has been ambulating mainly with a walker since her left knee injury and SNF stay. [facility] Medical History Chronic atrial fibrillation Chronic anticoagulation Obesity CKD (chronic kidney disease) stage 3, GFR 30-59 ml/min Nephrolithiasis, uric acid Hyperlipidemia HTN (hypertension) A-fib GORDON (obstructive sleep apnea) COPD (chronic obstructive pulmonary disease) Pulmonary HTN Severe mitral regurgitation Thiamine deficiency Osteoporosis Surgical History Hx of hernia repair History of open reduction and internal fixation (ORIF) procedure Family History Father No problems noted. Mother No problems noted. Maternal Aunt Breast cancer Social History Household Members: Spouse Housing: House Do you presently have visiting nurse or other home services: No Alcohol intake: never Patient Tobacco Use Status: Former Tobacco user Tobacco use type: Cigarette e-Cigarette/Vaping Use: Never Used Second Hand Smoke Exposure: No Advance Directives Date on File: 11/28/23 service: No Current occupational status: retired Cognitive needs: No Hearing needs: No Vision needs: No Questionnaire Thrive Questionnaire Date Thrive assessed: 08/04/24 I am a: Patient What is your living situation today?: I choose not to answer this question Within the past 12 months, did the food you bought not last and you didn't have the money to get more?: I choose not to answer this question Within the past 12 months, did you worry whether your food would run out before you got money to buy more?: I choose not to answer this question Do you have trouble paying for medicines?: I choose not to answer this question Do you have trouble getting transportation to medical appointments?: I choose not to answer this question Do you have trouble paying your heating and electricity bill?: I choose not to answer this question Do you have trouble taking care of your child, family member or friend?: I choose not to answer this question Do you have trouble with day-to-day activities such as bathing, preparing meals, shopping, managing finances, etc.?: I choose not to answer this question Are you currently unemployed and looking for a job?: I choose not to answer this question Are you interested in more education?: I choose not to answer this question Please select the resources that you would like help with: None Currently or been in a relationship where the following occur: I choose not to answer THRIVE Score: 0 AUDIT C Alcohol Use Questionnaire (AUDIT-C) 1. How often do you have a drink containing alcohol?: Never 3. How often do you have six or more drinks on one occasion?: Never Total Score: 0 ADRIAN-7 AMB Questionnaire ADRIAN-7 Date ADRIAN - 7 assessed: 08/04/24 Feeling nervous, anxious, or on edge: 0 = Not at all Not being able to stop or control worryin = Not at all Worrying too much about different things: 0 = Not at all Trouble relaxin = Not at all Being so restless that it is hard to sit still: 0 = Not at all Becoming easily annoyed or irritable: 0 = Not at all Feeling afraid as if something awful might happen: 0 = Not at all Total ADRIAN-7 score (0-4 normal; 5-9 mild; 10-14 moderate; 15-21 severe): 0 Source: Developed by Drs. Tae Valentine, Becca Olivia, Silviano Stallings and colleagues, with an educational lauryn from [employer]. ADRIAN-7 Assessment Billing ADRIAN-7 Assessment Tool: ADRIAN-7 Assessment 25866 Review of Systems Const All systems reviewed & are unremarkable except as noted in HPI and below ENT Reports no additional complaints Card Reports no additional complaints Resp Reports no additional complaints GI Reports no additional complaints Reports no additional complaints Physical exam (Primary Care) Vital Signs: Last Vital Signs Pulse 86 08/04/24 09:41 Resp 20 08/04/24 09:41 BP 106/64 08/04/24 09:41 Pulse Ox 98 08/04/24 09:41 Oxygen Delivery Method Room Air 08/04/24 09:41 BMI result Body Mass Index 26.6 Tobacco/Smoking Status: Tobacco use Status Tobacco use date assessed 08/04/24 08/04/24 09:48 Patient Tobacco Use Status Former Tobacco user 08/04/24 09:48 Tobacco use type Cigarette 08/04/24 09:48 e-Cigarette/Vaping Use Never Used 08/04/24 09:48 Thrive Assessment: Date of Thrive Assessment Date Thrive assessed 08/04/24 08/04/24 09:49 Currently or been in a relationship where the following occur: I choose not to answer Const General: no acute distress HENMT Head: Yes normal to inspection Face and sinus: Yes normal facial exam Eyes General: appearance normal, both eyes and all related structures Resp Effort & Inspection: normal respiratory effort Auscultation: crackles (At bases bilaterally) and diminished lung sounds Cardio Rhythm: abnormal rhythm irregularly irregular Heart sounds: S1 normal heart sound present and S2 normal heart sound present GI Inspection: Yes normal to inspection Palpation (GI): Soft to palpation Extrem Other: 1+ pitting edema bilaterally Coding Level of Care Code Est Pt Level 4 (12384) Complex EM visit Add On G2211 Diagnoses CHF (congestive heart failure) I50.9 A-fib I48.91 HFrEF (heart failure with reduced ejection fraction) I50.20 COPD (chronic obstructive pulmonary disease) J44.9 Piriformis syndrome of left side G57.02 Ureteral stent present Z96.0 Additional Codes ADRIAN-7 Assessment Billing - ADRIAN-7 Assessment Tool: ADRIAN-7 Assessment 95026 ([id number]) Assessment & Plan Assessment & Plan (1) CHF (congestive heart failure): Comment: Heart failure with reduced ejection fraction, question of tachycardia induced cardiomyopathy, EF injection fraction 20-25% 07/2024 established with [facility] Code(s): I50.9 - Heart failure, unspecified Category: Medical Plan: Continue amiodarone carvedilol follow-up with the Cardiology for cardioversion (2) A-fib: Comment: Follows up with Cardiology on Warfarin for s/p MVR Code(s): I48.91 - Unspecified atrial fibrillation Category: Medical Plan: As above (3) HFrEF (heart failure with reduced ejection fraction): Comment: Cardiology [facility], Echo 10/2022 global left ventricular hypokinesis ejection fraction 40%, severe decreased function of right ventricle, Echo 06/2024 EF 20%-25%, started on amiodarone and scheduled for cardioversion Code(s): I50.20 - Unspecified systolic (congestive) heart failure Category: Medical Plan: Check BMP and BNP today (4) COPD (chronic obstructive pulmonary disease): Comment: Follow-up with [facility] pulmonology Code(s): J44.9 - Chronic obstructive pulmonary disease, unspecified Category: Medical Plan: Follow-up with pulmonology (5) Piriformis syndrome of left side: Comment: Left hip x-rays showed mild osteoarthritis Code(s): G57.02 - Lesion of sciatic nerve, left lower limb Category: Medical Plan: Patient was advised to have physical therapy but she declined. She was giving home exercises and was advised to increase walking (6) Ureteral stent present: Comment: Follows up with Urology, ureteral stent removal is planned Code(s): Z96.0 - Presence of urogenital implants Category: Medical Plan: Follow-up with urology Orders: Orders Basic Metabolic Panel Today I48.91 - Unspecified atrial fibrillation, I50.9 - Heart failure, unspecified TSH reflex Free T4 Today I48.91 - Unspecified atrial fibrillation, I50.9 - Heart failure, unspecified B Type Natriuretic Peptide Today I48.91 - Unspecified atrial fibrillation, I50.9 - Heart failure, unspecified
--- OUTSIDE RECORDS SUMMARY | 2024-08-04 10:55 | XMS_ITS | Clinical Summary ---
Author Organization [facility] Facility Address [address] [address] Care Team Providers Care Business Owner/Engineer Name Role Phone Kiesha Macedo MD Primary Care Provider [phone] Social History Tobacco Use Types Packs/Day Years [...] age to complete this topic Insurance MEDICARE [facility]ICARE [facility] Care Teams Business Owner/Engineer Relationship Specialty Start Date End Date Kiesha Macedo MD [address] [place], [place] PCP - General Internal Medicine 08/29/22
--- OUTSIDE RECORDS SUMMARY | 2024-08-04 10:55 | XMS_ITS | Data Portability ---
Author Organization [facility], Main Office Address [address] [facility] [address] [place] [address] Care Team Providers Care Photo Printer Name Role Phone LANDON FREY 1ST FLOOR OTHER [phone] Assessment Encounter Date Assessment Date Assessment LastModified by Organization Details LastModified Time 01/17/2018 01/17/2018 01/13/18 WBC 4.3, Hgb 11.8, Hct 35.1, Na 141, K 3.6, BUN 12, Clinical Provider Trainer 0.62 [email or web address] Not available 01/17/2018 11:17:28 01/22/2018 01/22/201801/13: na 141, k 3.6, bun 12, creat 0.62, wbc 4.3, hgb 11.8, hct 35.1 glord Not available 01/22/2018 15:24:19 01/27/2018 01/27/2018 01/27/18 WBC 5.4, Hgb 13.7, Hct 41.3, Na 142, K 3.9, BUN 12, Clinical Provider Trainer 0.59 [email or web address] Not available 01/27/2018 17:03:47 02/05/2018 02/05/201802/03: na 143, k 3.7, bun 15, creat 0.66, wbc 4.2, hgb 11.5, hct 35.2 glord Not available 02/05/2018 14:14:26 02/07/2018 02/07/2018 02/03/18 WBC 4.2, Hgb 11.5, Hct 35.2, Na 143, K 3.7, BUN 15, Clinical Provider Trainer 0.66 [email or web address] Not available 02/07/2018 16:44:48 Plan [...] Address Organization Details Recorded Time Pulmonary hypertension 85276130 Active [address], [address], [place], [address], [employer] 8 16:34:20 Obstructive sleep apnea syndrome 53892709 Active [address], [address], [place], [address], [employer] 8 16:34:24 Mitral valve regurgitation 97033443 Active [address], [address], [place], [address], [employer] 8 16:34:38 Aortic valve regurgitation 79805835 Active [address], [address], [place], [address], [employer] 8 16:34:44 Fracture of shaft of femur 59209350 Active [address], [address], [place], [address], [employer] 8 16:35:57 Essential hypertension 16141941 Active [address], [address], [place], [address], [employer] 8 16:36:05 Chronic disease of respiratory system 09735570 Active [address], [address], [place], [address], [employer] 8 16:36:13 Gout 45532804 Active [address], [address], [place], [address], [employer] 8 16:44:07 Opxnp-uk-lsjsr ic respiratory failure 58629366 Active 2017 Sho Houser MD [address] [facility], [address], [place], [address], [facility] [employer] 8 20:08:21 Fracture of shaft of femur 23380352 Active 2017 Sho Houser MD [address] [place] [address], [address], [place], [address], [facility] [employer] [facility] 8 20:11:04 Solitary nodule of lung 204482600 Active 2017 Sho Houser MD [address] [place] [address], [facility] [address], [place], [address], [facility] [employer] 8 20:17:21 Mixed hyperlipidemia 692056818 Active 2017 Sho Houser MD [address] [place] [address], [facility] [address], [place], [address], [facility] [employer] [facility] 8 20:19:54 Problem Notes None recorded. Medical Equipment None Reported. Allergies Allergen ID Allergen Name Allergen Category Reaction Reaction Severity Criticality Documentation Date Start Date Code Code System Note Provider Name and Address Organization Details Recorded Time 57641 acetamino phen / hydrocodo ne medicatio n Not available Not available Not available 12/18/2017 76719 2 RxNorm Not Available Not Available Not [...] 138 mm[Hg] 62 mm[Hg] VANESSA HARDEN [address] [facility], [facility] [address], [place], [address], [employer] 8 11:11:37 Date Recorded Body height Heart rate Respiratory rate Provider Name and Address Organization Details Last Updated DateTime 01/22/2018 163.07 cm 72 /min 16 /min LIGIA LEMUS [address] [facility], [facility] [address], [place], [address], [place] [employer] 01/22/2018 15:29:09 Date Recorded Body height Body temperature Heart rate Respiratory rate Oxygen saturation Oxygen saturation in Arterial blood by Pulse oximetry Systolic blood pressure Diastolic blood pressure Provider Name and Address Organization Details Last Updated DateTime 8 163.07 cm 97.2 [degF] 68 /min 18 /min 94 % 94 % 106 mm[Hg] 49 mm[Hg] JOSUE FERRERAVANESSA SCHULTZ [address] [facility], [facility] [address], [place], [address], [facility] [employer] [facility] 8 16:58:27 Date Recorded Body height Heart rate Respiratory rate Body temperature Provider Name and Address Organization Details Last Updated DateTime 02/05/2018 163.07 cm 70 /min 16 /min 97.1 [degF] LIGIA LEMUS [address] [facility], [facility] [address], [place], [address] , [employer] [facility] 02/05/2018 14:25:46 Date Recorded Body height Heart rate Respiratory rate Body temperature Oxygen saturation Oxygen saturation in Arterial blood by Pulse oximetry Systolic blood pressure Diastolic blood pressure Provider Name and Address Organization Details Last Updated DateTime 8 163.07 cm 61 /min 18 /min 98.1 [degF] 98 % 98 % 116 mm[Hg] 56 mm[Hg] JOSUEVANESSA DEVINE [address] [facility], [facility] [address], [place], [address], [employer] [facility] 8 16:42:44 Social History Question Answer Notes LastModified by Organizat ion Details LastModified Time Tobacco Smoking Status Unknown If Ever Smoked Not Available [facility] 03/29/2020 03:13:20 Do You Have An Advance Directive? Yes Full Code [id number] Information not available 03/29/2020 What Was The Date Of Your Most Recent Tobacco Screening? 02/07/2018 [id number] Information not available 03/29/2020 Sex: Unknown Functional Status None recorded. Mental Status None recorded. Family History Nothing Reported. Medical History No medical history recorded. Gynecological HistoryNo gynecological history recorded. Obstetrics History GPAL:G 0 P 0 0 0 0 Past Encounters Encounter ID Performer Location Encounter Start Date Encounter Closed Date Diagnosis/Indication Diagnosis SNOMED-CT Code Diagnosis ICD10 Code Diagnosis Note [id number] LIGIA FREY [address] [facility] [place] [address] 12/18/2017 16:36:21 12/23/2017 16:12:52 Pulmonary hypertension 82848892 I27.0 lasix 40 mg dailyfollo w up with cards in 1-2 weeksObtai n follow up chest xray in 1 week to see if pulm edema has resolvedco nt. 02 PRN to keep sats above 92% Fracture o f shaft of femur 43487750 S72.324D Tylenol 650 mg TID scheduledP ercocet PRN for severe painPT/OT eval and treatbrace on right knee at all times Essential hypertension 32531487 I10 Continue atenolol 50 mg dailylosar infante 100 mg dailyamlod ipine 5 mg dailynitro 0.4 sl prnmonitor bps daily Gout 59052161 M10.061 allopurino l 100 mg dailyasa 81 mg daily [id number] Sho Houser MD [address] [place] [address] 12/19/2017 17:49:22 12/24/2017 08:23:57 Pulmonary hypertension 82475351 I27.0 As above, also on lasix 40 mg qd with KCl 10 meq BID. Will f/u with cardio as planned, may need MVR, as this is thought part of the reason for her pulmonary HTN. Will repeat CXR next week to reassess pulmonary edema.Cont . 02 as above. Fracture o f shaft of femur 96771181 S72.324D Will need PT/OT for strengthen ing [...] times. F/U ortho as planned. Essential hypertension 19625749 I10 Good control on atenolol 50 mg qd, losartan 100 mg qd, amlodipine 5 mg qd and nitro 0.4 sl prnMonitor BP and labs. Gout 36175697 M10.061 Continue allopurino l 100 mg qd. Monitor for sxs. Solitary n odule of lung 331752181 R91.1 Will f/u with pulmonary for assessment . Acute-on-c hronic respiratory failure 94498827 J96.21 J96.12 On O2 at baseline, with acute worsening inpt. likely secondary to pulmonary HTN (see below). Continue O2 by NC, titrated to keep sats above between 90-94% so as not to induce hypercapni a. Will f/u with pulmonary and cardio. Obstructiv e sleep apnea syndrome 56079110 G47.33 Continue CPAP as usual. Mixed hyperlipidemia 267 427384 E78.2 Continue atorvastat in 80 mg qd and ASA 81 mg qd. Monitor labs as outpt. [id number] VANESSA HARDEN [address] [place] [address] 12/27/2017 17:27:17 01/02/2018 15:17:31 Chronic disease of respiratory system 24970948 J98.9 she has not needed her oxygen at this time but knows she can use it if neededshe is seeing pulmonolog y on saturday for a follow up Obstructiv e sleep apnea syndrome 18641359 G47.33 she feels her cpap is not working rightwill order oxygen 2 liters via nc at night for nowmonitor Fracture o f shaft of femur 47643411 S72.8X1S continues with lidoderm patches on right legsees ortho next weekawaiti ng decision about next stepcontin ues non weight bearing status [id number] Sal Esparza MD [facility] [address] [place] [address] 01/15/2018 10:09:17 01/28/2018 13:33:13 Fracture of shaft of femur 74791576 S72.391D inform ortho of eventxray at facility to reeval [id number] VANESSA HARDEN [address] [address] 01/17/2018 11:10:56 01/28/2018 13:53:07 Essential hypertension 41620771 I10 norvasc 5 mg qdatenolol 50 mg qdlasix 40 mg qdlosartan potassium 100 mg qdmonitor b/p and labs Chronic di sease of respiratory system 51892212 J98.9 she follows with pulmonolog yshe uses oxygen as neededmoni tor respirator y status Fracture o f shaft of femur 18799528 S72.8X1S continues with lidoderm patches on right leg non weight bearing status follows with orthofelt she hurt it worsex-ray was negative and said there was the healing fracturewa nts CT results from ortho but doesn't see them til 30 thmonitor [id number] LIGIA NAVARRETE SHANTE [address] [place], [place] [address] [address] 01/22/2018 15:15:11 01/28/2018 14:03:23 Essential hypertension 14215588 I10 norvasc 5 mg qdatenolol 50 mg qdlasix 40 mg qdlosartan potassium 100 mg qdmonitor b/p and labs Chronic di sease of respiratory system 22089237 J98.9 Follows with pulmonolog yCPAP at bedtime while sleeping she uses oxygen as neededmoni tor respirator y status Fracture o f shaft of femur 92854432 S72.8X1S continues with lidoderm patches on right leg non weight bearing status, toe touch only follow up with ortho this saturday to determine weight bearing statusmoni tor for pain controltyl enol 650 mg q 8 hours PRN [id number] VANESSA HARDEN [address] [place] [address] 01/27/2018 16:57:24 02/12/2018 08:38:08 Fracture of shaft of femur 22859835 S72.8X1S continues with lidoderm patches on right legfollows with orthotoe touch allowedhom e visit this weekcontin ues with therapy Essential hypertension 80763093 I10 norvasc 5 mg qdatenolol 50 mg qdlasix 40 mg qdlosartan potassium 100 mg qdmonitor b/p and labs Mixed hyperlipidemia 267 077633 E78.2 carries diagnosisn ot on medication monitor labs [id number] LIGIA LEMUS [place] [address] [facility] [place] [address] 02/05/2018 14:10:52 02/12/2018 11:56:12 Fracture of shaft of femur 91512593 S72.8X1S continues with lidoderm patches on right legfollows with ortho in 4 weekstoe touch allowed only at this timecontin ues with therapyHom e eval went well, question possible discharge by the end of this week D/C colace 100 mg daily due to loose stools Essential hypertension 73149388 I10 norvasc 5 mg qdatenolol 50 mg qdlasix 40 mg qdlosartan potassium 100 mg qdmonitor b/p and labs [id number] VANESSA HARDEN [address] [place] [address] [place] [address] 02/07/2018 16:41:46 02/12/2018 12:03:29 Fracture of shaft of femur 76116911 S72.8X1S continues with lidoderm patches on right legfollows with orthotoe touch allowedtyl enol 650 mg q 8 hrspercoce t q 4 hrs prnfollow up with ortho Essential hypertension 48035167 I10 ASA 81 mgnorvasc 5 mg qdatenolol 50 mg qdlasix 40 mg qdpotassiu m 10 meq qdlosartan potassium 100 mg qdfollow up with PCP Mixed hyperlipidemia 267 058349 E78.2 atorvastat in 80 mg qd follow up with PCP Obstructiv e sleep apnea syndrome 75826826 G47.33 continue home CPAPfollow up with PCP Gout 32030573 M10.49 allopurino l 100 mg qdfollow up with PCP Chronic di sease of respiratory system 65424679 J98.9 she follows with pulmonolog yshe uses [...] 2 [place] Ramona Pinon [id number] Ramona Pinon 01/17/2018 1 [place] Ramona Pinon [id number] Ramona Pinon 01/22/2018 2 [place] Ramona Pinon [id number] Ramona Pinon 01/22/2018 1 [place] Ramona Pinon [id number] Ramona Pinon 01/27/2018 2 [place] Ramona Pinon [id number] Ramona Pinon 01/27/2018 1 [place] Ramona Pinon [id number] Ramona Pinon 02/05/2018 2 [place] Ramona Pinon [id number] Ramona Pinon 02/05/2018 1 [place] [facility] Ramona Pinon [id number] Ramona Pinon 02/07/2018 2 [facility] Ramona Pinon [id number] Ramona Pinon 02/07/2018 1 [place] [facility] Ramona Pinon [id number] Ramona Pinon Notes Date Note Type Note [...] been working with therapy. VANESSA HARDEN [address] [facility], [address], [place], [address], [employer] 01/17/2018 11:55:52 01/22/2018 text/html A 77 year old female being seen today for acute rounding visit. Pt has follow up with ortho this saturday to determine if she can move to weight bearing status. Otherwise she has no new health concerns at this time. LIGIA LEMUS [address] [facility], [address], [place], [address], [employer] 01/22/2018 15:31:01 01/27/2018 text/html A 77 year old female being seen for a acute rounding visit. She has been working with therapy and will have a home visit soon. She is toe touch at this time. She sees ortho in 5 weeks. Staff notes no concerns at this time. VANESSA HARDEN [address] [facility], [address], [place], [address], [employer] 01/27/2018 17:14:53 02/05/2018 text/html A 77 year [...] for loose stool often. LIGIA LEMUS [address] [facility], [address], [place], [address], [facility] [employer] [facility] 02/05/2018 14:25:49 02/07/2018 text/html A 77 [...] disease and pulmonary hypertension. VANESSA HARDEN [address] [facility], [address], [place], [address], [facility] [employer] [facility] 02/07/2018 16:59:57 OBGyn Episode No OBEpisode recorded.
== END 2024-08-04 10:24 | disposition home or self-care (01) ==
PROVIDERS: PCP Internal Medicine; Visit Provider Internal Medicine
DX: I50.9 Heart failure, unspecified (principal); I48.91 Unspecified atrial fibrillation; I50.20 Unspecified systolic (congestive) heart failure; J44.9 Chronic obstructive pulmonary disease, unspecified; G57.02 Lesion of sciatic nerve, left lower limb; Z96.0 Presence of urogenital implants

== ENCOUNTER 2024-08-10 07:58 | Outpatient (AMB) | payer MEDICARE, BC, SELFPAY ==
--- OUTSIDE RECORDS SUMMARY | 2024-08-10 08:03 | XMS_ITS | Clinical Summary ---
Author Organization [facility] Facility Address [address] [address] Care Team Providers Care Sales Marketing Manager Name Role Phone Kiesha Macedo MD Primary Care Provider [phone] Social History Tobacco Use Types Packs/Day Years [...] [facility] Care Teams Sales Marketing Manager Relationship Specialty Start Date End Date Kiesha Macedo MD 1959 [place], [place] PCP - General Internal Medicine 08/29/22
--- OUTSIDE RECORDS SUMMARY | 2024-08-10 08:03 | XMS_ITS | Data Portability ---
Author Organization [facility], Main Office Address [address] [facility] [address] [place] [address] Care Team Providers Care Field Cane Scaler Helper Name Role Phone LANDON FREY 1ST FLOOR OTHER [phone] Assessment Encounter Date Assessment Date Assessment LastModified by Organization Details LastModified Time 01/17/2018 01/17/2018 01/13/18 WBC 4.3, Hgb 11.8, Hct 35.1, Na 141, K 3.6, BUN 12, Golf Shoe Spike Assembler 0.62 [email or web address] Not available 01/17/2018 11:17:28 01/22/2018 01/22/201801/13: na 141, k 3.6, bun 12, creat 0.62, wbc 4.3, hgb 11.8, hct 35.1 glord Not available 01/22/2018 15:24:19 01/27/2018 01/27/2018 01/27/18 WBC 5.4, Hgb 13.7, Hct 41.3, Na 142, K 3.9, BUN 12, Golf Shoe Spike Assembler 0.59 [email or web address] Not available 01/27/2018 17:03:47 02/05/2018 02/05/201802/03: na 143, k 3.7, bun 15, creat 0.66, wbc 4.2, hgb 11.5, hct 35.2 glord Not available 02/05/2018 14:14:26 02/07/2018 02/07/2018 02/03/18 WBC 4.2, Hgb 11.5, Hct 35.2, Na 143, K 3.7, BUN 15, Golf Shoe Spike Assembler 0.66 [email or web address] Not available 02/07/2018 16:44:48 Plan [...] Address Organization Details Recorded Time Pulmonary hypertension 52558948 Active [address], [address], [place], [address], [email or web address] 8 16:34:20 Obstructive sleep apnea syndrome 16766602 Active [address], [address], [place], [address], [email or web address] 8 16:34:24 Mitral valve regurgitation 24287667 Active [address], [address], [place], [address], [email or web address] 8 16:34:38 Aortic valve regurgitation 78519644 Active [address], [address], [place], [address], [email or web address] 8 16:34:44 Fracture of shaft of femur 05160931 Active [address], [address], [place], [address], [email or web address] 8 16:35:57 Essential hypertension 31314123 Active [address], [address], [place], [address], [email or web address] 8 16:36:05 Chronic disease of respiratory system 33975503 Active [address], [address], [place], [address], [email or web address] 8 16:36:13 Gout 60614941 Active [address], [address], [place], [address], [email or web address] 8 16:44:07 Dvxop-jr-jxklf ic respiratory failure 11584154 Active 2017 Sho Houser MD [address] [facility], [address], [place], [address], [facility] [employer] 8 20:08:21 Fracture of shaft of femur 86005060 Active 2017 Sho Houser MD [address] [place] [address], [address], [place], [address], [facility] [employer] [facility] 8 20:11:04 Solitary nodule of lung 212691325 Active 2017 Sho Houser MD [address] [place] [address], [facility] [address], [place], [address], [facility] [employer] 8 20:17:21 Mixed hyperlipidemia 490051544 Active 2017 Sho Houser MD [address] [place] [address], [facility] [address], [place], [address], [facility] [employer] [facility] 8 20:19:54 Problem Notes None recorded. Medical Equipment None Reported. Allergies Allergen ID Allergen Name Allergen Category Reaction Reaction Severity Criticality Documentation Date Start Date Code Code System Note Provider Name and Address Organization Details Recorded Time 89487 acetamino phen / hydrocodo ne medicatio n Not available Not available Not available 12/18/2017 74819 2 RxNorm Not Available Not Available Not [...] 138 mm[Hg] 62 mm[Hg] VANESSA HARDEN [address] [facility], [facility] [address], [place], [address], [email or web address] 8 11:11:37 Date Recorded Body height Heart rate Respiratory rate Provider Name and Address Organization Details Last Updated DateTime 01/22/2018 163.07 cm 72 /min 16 /min LIGIA LEMUS [address] [facility], [facility] [address], [place], [address], [place] [employer] 01/22/2018 15:29:09 Date Recorded Body height Body temperature Heart rate Respiratory rate Oxygen saturation Oxygen saturation in Arterial blood by Pulse oximetry Systolic blood pressure Diastolic blood pressure Provider Name and Address Organization Details Last Updated DateTime 8 163.07 cm 97.2 [degF] 68 /min 18 /min 94 % 94 % 106 mm[Hg] 49 mm[Hg] JOSUE FERRERAVANESSA SCHULTZ [address] [facility], [facility] [address], [place], [address], [facility] [employer] [facility] 8 16:58:27 Date Recorded Body height Heart rate Respiratory rate Body temperature Provider Name and Address Organization Details Last Updated DateTime 02/05/2018 163.07 cm 70 /min 16 /min 97.1 [degF] LIGIA LEMUS [address] [facility], [facility] [address], [place], [address] , [employer] [facility] 02/05/2018 14:25:46 Date Recorded Body height Heart rate Respiratory rate Body temperature Oxygen saturation Oxygen saturation in Arterial blood by Pulse oximetry Systolic blood pressure Diastolic blood pressure Provider Name and Address Organization Details Last Updated DateTime 8 163.07 cm 61 /min 18 /min 98.1 [degF] 98 % 98 % 116 mm[Hg] 56 mm[Hg] JOSUEVANESSA DEVINE [address] [facility], [facility] [address], [place], [address], [employer] [facility] 8 16:42:44 Social History Question Answer Notes LastModified by Organizat ion Details LastModified Time Tobacco Smoking Status Unknown If Ever Smoked Not Available [facility] 03/29/2020 03:13:20 Do You Have An Advance Directive? Yes Full Code [id number] Information not available 03/29/2020 What Was The Date Of Your Most Recent Tobacco Screening? 02/07/2018 [id number] Information not available 03/29/2020 Sex: Unknown Functional Status None recorded. Mental Status None recorded. Family History Nothing Reported. Medical History No medical history recorded. Gynecological HistoryNo gynecological history recorded. Obstetrics History GPAL:G 0 P 0 0 0 0 Past Encounters Encounter ID Performer Location Encounter Start Date Encounter Closed Date Diagnosis/Indication Diagnosis SNOMED-CT Code Diagnosis ICD10 Code Diagnosis Note [id number] LIGIA FREY [address] [place] [address] 12/18/2017 16:36:21 12/23/2017 16:12:52 Pulmonary hypertension 36051803 I27.0 lasix 40 mg dailyfollo w up with cards in 1-2 weeksObtai n follow up chest xray in 1 week to see if pulm edema has resolvedco nt. 02 PRN to keep sats above 92% Fracture o f shaft of femur 05056949 S72.324D Tylenol 650 mg TID scheduledP ercocet PRN for severe painPT/OT eval and treatbrace on right knee at all times Essential hypertension 12358028 I10 Continue atenolol 50 mg dailylosar infante 100 mg dailyamlod ipine 5 mg dailynitro 0.4 sl prnmonitor bps daily Gout 69618893 M10.061 allopurino l 100 mg dailyasa 81 mg daily [id number] Sho Houser MD [address] [place] [address] 12/19/2017 17:49:22 12/24/2017 08:23:57 Pulmonary hypertension 12856842 I27.0 As above, also on lasix 40 mg qd with KCl 10 meq BID. Will f/u with cardio as planned, may need MVR, as this is thought part of the reason for her pulmonary HTN. Will repeat CXR next week to reassess pulmonary edema.Cont . 02 as above. Fracture o f shaft of femur 59400558 S72.324D Will need PT/OT for strengthen ing [...] times. F/U ortho as planned. Essential hypertension 27309081 I10 Good control on atenolol 50 mg qd, losartan 100 mg qd, amlodipine 5 mg qd and nitro 0.4 sl prnMonitor BP and labs. Gout 52997287 M10.061 Continue allopurino l 100 mg qd. Monitor for sxs. Solitary n odule of lung 262198262 R91.1 Will f/u with pulmonary for assessment . Acute-on-c hronic respiratory failure 70796852 J96.21 J96.12 On O2 at baseline, with acute worsening inpt. likely secondary to pulmonary HTN (see below). Continue O2 by NC, titrated to keep sats above between 90-94% so as not to induce hypercapni a. Will f/u with pulmonary and cardio. Obstructiv e sleep apnea syndrome 50591245 G47.33 Continue CPAP as usual. Mixed hyperlipidemia 267 894351 E78.2 Continue atorvastat in 80 mg qd and ASA 81 mg qd. Monitor labs [place] outpt. [id number] VANESSA HARDEN [address] [place] [address] 12/27/2017 17:27:17 01/02/2018 15:17:31 Chronic disease of respiratory system 00672202 J98.9 she has not needed her oxygen at this time but knows she can use it if neededshe is seeing pulmonolog y on saturday for a follow up Obstructiv e sleep apnea syndrome 36125235 G47.33 she feels her cpap is not working rightwill order oxygen 2 liters via nc at night for nowmonitor Fracture o f shaft of femur 72530312 S72.8X1S continues with lidoderm patches on right legsees ortho next weekawaiti ng decision about next stepcontin ues non weight bearing status [id number] Sal Esparza MD [facility] [address] [place] [id number] 01/15/2018 10:09:17 01/28/2018 13:33:13 Fracture of shaft of femur 59591360 S72.391D inform ortho of eventxray at facility to reeval [id number] V[address]ESSA [address]ARDEN [address] [address] 01/17/2018 11:10:56 01/28/2018 13:53:07 Essential hypertension 51704658 I10 norvasc 5 mg qdatenolol 50 mg qdlasix 40 mg qdlosartan potassium 100 mg qdmonitor b/p and labs Chronic di sease of respiratory system 98872262 J98.9 she follows with pulmonolog yshe uses oxygen as neededmoni tor respirator y status Fracture o f shaft of femur 69149707 S72.8X1S continues with lidoderm patches on right leg non weight bearing status follows with orthofelt she hurt it worsex-ray was negative and said there was the healing fracturewa nts CT results from ortho but doesn't see them til 30 thmonitor [id number] LIGIA NAVARRETE SHANTE [address] [place], [place] [address] [place] [address] 01/22/2018 15:15:11 01/28/2018 14:03:23 Essential hypertension 07596167 I10 norvasc 5 mg qdatenolol 50 mg qdlasix 40 mg qdlosartan potassium 100 mg qdmonitor b/p and labs Chronic di sease of respiratory system 71840885 J98.9 Follows with pulmonolog yCPAP at bedtime while sleeping she uses oxygen as neededmoni tor respirator y status Fracture o f shaft of femur 78283938 S72.8X1S continues with lidoderm patches on right leg non weight bearing status, toe touch only follow up with ortho this saturday to determine weight bearing statusmoni tor for pain controltyl enol 650 mg q 8 hours PRN [id number] VANESSA HARDEN [address] [place] [address] 01/27/2018 16:57:24 02/12/2018 08:38:08 Fracture of shaft of femur 45668746 S72.8X1S continues with lidoderm patches on right legfollows with orthotoe touch allowedhom e visit this weekcontin ues with therapy Essential hypertension 13687293 I10 norvasc 5 mg qdatenolol 50 mg qdlasix 40 mg qdlosartan potassium 100 mg qdmonitor b/p and labs Mixed hyperlipidemia 267 111018 E78.2 carries diagnosisn ot on medication monitor labs [id number] LIGIA LEMUS [place] [address] [place] [address] 02/05/2018 14:10:52 02/12/2018 11:56:12 Fracture of shaft of femur 02976480 S72.8X1S continues with lidoderm patches on right legfollows with ortho in 4 weekstoe touch allowed only at this timecontin ues with therapyHom e eval went well, question possible discharge by the end of this week D/C colace 100 mg daily due to loose stools Essential hypertension 78077554 I10 norvasc 5 mg qdatenolol 50 mg qdlasix 40 mg qdlosartan potassium 100 mg qdmonitor b/p and labs [id number] VANESSA HARDEN [address] [place] [address] [place] [address] 02/07/2018 16:41:46 02/12/2018 12:03:29 Fracture of shaft of femur 35405621 S72.8X1S continues with lidoderm patches on right legfollows with orthotoe touch allowedtyl enol 650 mg q 8 hrspercoce t q 4 hrs prnfollow up with ortho Essential hypertension 36432313 I10 ASA 81 mgnorvasc 5 mg qdatenolol 50 mg qdlasix 40 mg qdpotassiu m 10 meq qdlosartan potassium 100 mg qdfollow up with PCP Mixed hyperlipidemia 267 309859 E78.2 atorvastat in 80 mg qd follow up with PCP Obstructiv e sleep apnea syndrome 24418125 G47.33 continue home CPAPfollow up with PCP Gout 71467189 M10.49 allopurino l 100 mg qdfollow up with PCP Chronic di sease of respiratory system 27907735 J98.9 she follows with pulmonolog yshe uses [...] 2 [place] [employer] [place] [employer] Ramona Pinon [id number] Ramona Pinon 01/17/2018 1 [place] [employer] Ramona Pinon [id number] Raomna Pinon 01/22/2018 2 [place] Ramona Pinon [id number] Ramona Pinon 01/22/2018 1 [place] [employer] Ramona Pinon [id number] Ramona Pinon 01/27/2018 2 [place] Ramona Pinon [id number] Ramona Pinon 01/27/2018 1 [place] [employer] Ramona Pinon [id number] Ramona Pinon 02/05/2018 2 [place] Ramona Pinon [id number] Ramona Pinon 02/05/2018 1 [place] [facility] Ramona Pinon [id number] Ramona Pinon 02/07/2018 2 [facility] Ramona Pinon [id number] Ramona Pinon 02/07/2018 1 [place] [facility] Ramona Pinon [id number] Ramona Pinon Notes Date Note Type Note [...] been working with therapy. VANESSA HARDEN [address] [facility], [address], [place], [address], [email or web address] 01/17/2018 11:55:52 01/22/2018 text/html A 77 year old female being seen today for acute rounding visit. Pt has follow up with ortho this saturday to determine if she can move to weight bearing status. Otherwise she has no new health concerns at this time. LIGIA LEMUS [address] [facility], [address], [place], [address], [email or web address] 01/22/2018 15:31:01 01/27/2018 text/html A 77 year old female being seen for a acute rounding visit. She has been working with therapy and will have a home visit soon. She is toe touch at this time. She sees ortho in 5 weeks. Staff notes no concerns at this time. VANESSA HARDEN [address] [facility], [address], [place], [address], [email or web address] 01/27/2018 17:14:53 02/05/2018 text/html A 77 year [...] for loose stool often. LIGIA LEMUS [address] [facility], [address], [place], [address], [facility] [employer] [facility] 02/05/2018 14:25:49 02/07/2018 text/html A 77 [...] disease and pulmonary hypertension. VANESSA HARDEN [address] [facility], [address], [place], [address], [facility] [employer] [facility] 02/07/2018 16:59:57 OBGyn Episode No OBEpisode recorded.
[2024-08-10 08:08] LABS: Prothrombin Time Whole Bld POC 51.9 sec (11.1-13.5); ~PT, ~INR - Anti Coag Clinic 4.3 (0.9-1.1)
--- NOTE | 2024-08-10 08:28 | MHC.OFFVISCO ---
Intake Intake Visit Reasons: Anticoagulation Allergies acetaminophen [From Vicodin] Allergy (Intermediate, Verified 08/10/24 08:01) per patient hydrocodone [From Vicodin] Allergy (Mild, Verified 08/10/24 08:01) CHEST PAIN Medication List - Last Reconciled 08/10/24 by Yolis Mendez RN acetaminophen 650 mg PO Q8H PRN albuterol sulfate 90 mcg/actuation 2 puffs inhalation Q4-6H PRN amiodarone 200 mg PO DAILY ascorbate calcium (vitamin C) 500 mg PO DAILY aspirin (Noel Low Dose Aspirin) 81 mg PO DAILY atorvastatin 80 mg PO DAILY carvedilol 12.5 mg PO BID furosemide (Lasix) 40 mg PO DAILY cargsnscjxlr-Zj-necz-minerals 1 tab PO DAILY omeprazole 20 mg PO BID@0630,1630 potassium chloride ER 30 mEq (1.5 x 20 mEq) PO DAILY vitamin B complex 1 tab PO DAILY warfarin See Protocol 2.5 mg orally 2.5MG DAILY WHILE RECOVERING MAY NEED DOSE ADJUSTMENTS; zinc gluconate 50 mg PO DAILY Nursing Note comes to [facility] with grandson via wheelchair, c/o of hip and leg pain sciatica off and on able to walk - just hurts on/off INR 4.3 out of therapeutic range- POSSIBLY R/T TO AMIODARONE AND DECREASED APPETITE to have Cardioversion soon has cardiology appt 08/13/2024 and have 4 INR values in range. Medications and supplements reviewed Patient status: no new complaints Medications or supplements: no change Diet: ok Denies any signs and symptoms of bleeding or clotting or unusual bruising Bleeding, bruising, clotting discussed Nutritional guidance given: greenshaneka weekly Dose: hold 1.25mg today then 1.25mg x 2 days/ 2.5mg x 5 days due to amiodarone F/U INR Date : 1 week?? Patient and grandson verbalize understanding of instructions given with read back Call to Cardiology to report INR values left msg on triage nurse line Anti-Coag Initial Assessment Social Hx Patient Tobacco Use Status: Former Tobacco user Tobacco use type: Cigarette alcohol intake: never Coding Level of Care Code Est Patient Level 1 Diagnoses Current use of anticoagulant therapy Z79.01 Results AMB INR Fingerstick AMB INR Fingerstick 4.3 Last Edit by Yolis Mendez RN on 08/10/24 08:07 manual entry Assessment & Plan Assessment & Plan (1) Current use of anticoagulant therapy: Code(s): Z79.01 - penitentiary (current) use of 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
== END 2024-08-10 08:40 | disposition home or self-care (01) ==
LOC: HO.ACS 07:58
PROVIDERS: PCP Internal Medicine; Visit Provider Internal Medicine
DX: Z79.01 Long term (current) use of anticoagulants (principal)

== ENCOUNTER → 2024-08-10 07:58 | Outpatient (BNVA) | payer MEDICARE, BC, SELFPAY | PROVIDERS: PCP Internal Medicine; Visit Provider Internal Medicine | DX: I48.0 Paroxysmal atrial fibrillation (principal); Z79.01 Long term (current) use of anticoagulants; Z51.81 Encounter for therapeutic drug level monitoring | CPT/HCPCS: 85610; 99211 ==

== ENCOUNTER 2024-08-19 08:02 | Outpatient (AMB) | payer MEDICARE, BC, SELFPAY ==
--- OUTSIDE RECORDS SUMMARY | 2024-08-19 08:05 | XMS_ITS | Clinical Summary ---
Author Organization [facility] Facility Address [address] [address] Care Team Providers Care Almond Grinder Name Role Phone Kiesha Macedo MD Primary Care Provider [phone] Social History Tobacco Use Types Packs/Day Years [...] age to complete this topic Insurance MEDICARE [facility] MEDICARE [facility] Care Teams Almond Grinder Relationship Specialty Start Date End Date Kiesha Macedo MD 1959 [place], [place] PCP - General Internal Medicine 08/29/22
[2024-08-19 08:17] LABS: ~PT, ~INR - Anti Coag Clinic 3.4 (0.9-1.1)
--- NOTE | 2024-08-19 08:32 | MHC.OFFVISCO ---
Intake Intake Visit Reasons: Anticoagulation Allergies acetaminophen [From Vicodin] Allergy (Intermediate, Verified 08/19/24 08:10) per patient hydrocodone [From Vicodin] Allergy (Mild, Verified 08/19/24 08:10) CHEST PAIN Medication List - Last Reconciled 08/19/24 by Suzanne Soares, RN acetaminophen 650 mg PO Q8H PRN albuterol sulfate 90 mcg/actuation 2 puffs inhalation Q4-6H PRN amiodarone 200 mg PO DAILY ascorbate calcium (vitamin C) 500 mg PO DAILY aspirin (Noel Low Dose Aspirin) 81 mg PO DAILY atorvastatin 80 mg PO DAILY carvedilol 12.5 mg PO BID furosemide (Lasix) 40 mg PO DAILY wwsurhhblhly-Pl-rgiu-minerals 1 tab PO DAILY omeprazole 20 mg PO BID@0630,1630 potassium chloride ER 30 mEq (1.5 x 20 mEq) PO DAILY vitamin B complex 1 tab PO DAILY warfarin See Protocol 2.5 mg orally 2.5MG DAILY WHILE RECOVERING MAY NEED DOSE ADJUSTMENTS; zinc gluconate 50 mg PO DAILY Nursing Note To [facility] via WC accomp by family member Pt feeling OK Medications and supplements reviewed, dosing changes of warfarin and decrease amiodarone from 400mg daily to 200 mg daily approx 3 weeks ago Cardioversion has been cancelled per family member and pt risk/benefit not there , pt still has renal stent and awaiting surgical date for removal has cardiology appointment on saturday No other changes in health, diet, medications, or supplements, Denies any signs and symptoms of bleeding or bruising or clotting. Sts urine clearer now, less pink Bleeding, bruising, clotting discussed INR: 3.4 above therapeutic range Dose: discussion with patient and family member, recent warfarin changes will keep dosing at 1.25mg x 2 days and 2.5mg x 5 days pt sts takes her warfarin early in am, time varies depends on if any plans as I take all my pills including the water pill so I want to be done peeing before I go to appointments encouraged to bring warfarin in next visit so if adjustments need to be made can do it in real time pt encouraged to increase greens today and tomorrow to help bring INR into range F/U INR: 1 week Patient and family member verbalizes understanding of instructions given Anti-Coag Initial Assessment Social Hx Patient Tobacco Use Status: Former Tobacco user Tobacco use type: Cigarette alcohol intake: never Coding Level of Care Code Est Patient Level 2 Diagnoses Current use of anticoagulant therapy Z79.01 Time Spent (min) 30 Assessment & Plan Assessment & Plan (1) Current use of anticoagulant therapy: Code(s): Z79.01 - terminal manager (current) use of 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
== END 2024-08-19 12:22 | disposition home or self-care (01) ==
LOC: HO.ACS 08:02
PROVIDERS: PCP Internal Medicine; Visit Provider Internal Medicine Medical Oncology
DX: Z79.01 Long term (current) use of anticoagulants (principal)

== ENCOUNTER → 2024-08-19 08:02 | Outpatient (BNVA) | payer MEDICARE, BC, SELFPAY | PROVIDERS: PCP Internal Medicine; Visit Provider Internal Medicine Medical Oncology | DX: I48.0 Paroxysmal atrial fibrillation (principal); Z79.01 Long term (current) use of anticoagulants; Z51.81 Encounter for therapeutic drug level monitoring | CPT/HCPCS: 85610; 99212 ==

== ENCOUNTER 2024-08-27 08:15 | Outpatient (AMB) | payer MEDICARE, BC, SELFPAY ==
[2024-08-27 08:35] LABS: ~PT, ~INR - Anti Coag Clinic 5.6 (0.9-1.1)
--- OUTSIDE RECORDS SUMMARY | 2024-08-27 08:36 | XMS_ITS | Clinical Summary ---
Author Organization [facility] Facility Address [address] [address] Care Team Providers Care Receiving Worker Name Role Phone Kiesha Macedo MD Primary Care Provider [phone] Social History Tobacco Use Types Packs/Day Years [...] age to complete this topic Insurance MEDICARE [facility] MEDICARE [facility] Care Teams Receiving Worker Relationship Specialty Start Date End Date Kiesha Macedo MD 1959 [place], [place] PCP - General Internal Medicine 08/29/22
--- OUTSIDE RECORDS SUMMARY | 2024-08-27 08:37 | XMS_ITS | Data Portability ---
Author Organization [facility], Main Office Address [address] [facility], [facility] [address] [place] [address] Care Team Providers Care Stripper Machine Operator Name Role Phone LANDON FREY 1ST FLOOR OTHER [phone] Assessment Encounter Date Assessment Date Assessment LastModified by Organization Details LastModified Time 01/17/2018 01/17/2018 01/13/18 WBC 4.3, Hgb 11.8, Hct 35.1, Na 141, K 3.6, BUN 12, Push Button Switch Assembler 0.62 [email or web address] Not available 01/17/2018 11:17:28 01/22/2018 01/22/201801/13: na 141, k 3.6, bun 12, creat 0.62, wbc 4.3, hgb 11.8, hct 35.1 glord Not available 01/22/2018 15:24:19 01/27/2018 01/27/2018 01/27/18 WBC 5.4, Hgb 13.7, Hct 41.3, Na 142, K 3.9, BUN 12, Push Button Switch Assembler 0.59 [email or web address] Not available 01/27/2018 17:03:47 02/05/2018 02/05/201802/03: na 143, k 3.7, bun 15, creat 0.66, wbc 4.2, hgb 11.5, hct 35.2 glord Not available 02/05/2018 14:14:26 02/07/2018 02/07/2018 02/03/18 WBC 4.2, Hgb 11.5, Hct 35.2, Na 143, K 3.7, BUN 15, Push Button Switch Assembler 0.66 [email or web address] Not available 02/07/2018 16:44:48 [...] Address Organization Details Recorded Time Pulmonary hypertension 77589248 Active [address], [address], [place], [address], [facility] 8 16:34:20 Obstructive sleep apnea syndrome 58155844 Active [address], [address], [place], [address], [facility] 8 16:34:24 Mitral valve regurgitation 56588720 Active [address], [address], [place], [address], [facility] 8 16:34:38 Aortic valve regurgitation 00392365 Active [address], [address], [place], [address], [facility] 8 16:34:44 Fracture of shaft of femur 61066971 Active [address], [address], [place], [address], [facility] 8 16:35:57 Essential hypertension 28141847 Active [address], [address], [place], [address], [facility] 8 16:36:05 Chronic disease of respiratory system 48787252 Active [address], [address], [place], [address], [facility] 8 16:36:13 Gout 23232558 Active [address], [address], [place], [address], [facility] 8 16:44:07 Zqtmi-rb-dzjyp ic respiratory failure 06778575 Active 2017 Sho Houser MD [address] [facility], [address], [place], [address], [facility] 8 20:08:21 Fracture of shaft of femur 63895158 Active 2017 Sho Houser MD [address] [place] [address], [address], [place], [address], [facility] 8 20:11:04 Solitary nodule of lung 139555415 Active 2017 Sho Houser MD [address] [place] [address], [facility] [address], [place], [address], [facility] 8 20:17:21 Mixed hyperlipidemia 058166056 Active 2017 Sho Houser MD [address] [place] [address], [facility] [address], [place], [address], [facility] 8 20:19:54 Problem Notes None recorded. Medical Equipment None Reported. Allergies Allergen ID Allergen Name Allergen Category Reaction Reaction Severity Criticality Documentation Date Start Date Code Code System Note Provider Name and Address Organization Details Recorded Time 48961 acetamino phen / hydrocodo ne medicatio n Not available Not available Not available 12/18/2017 85037 2 RxNorm Not Available Not Available Not [...] 138 mm[Hg] 62 mm[Hg] VANESSA HARDEN [address] [facility], [facility] [address], [place], [address], [facility] 8 11:11:37 Date Recorded Body height Heart rate Respiratory rate Provider Name and Address Organization Details Last Updated DateTime 01/22/2018 163.07 cm 72 /min 16 /min LIGIA LEMUS [address] [facility], [facility] [address], [place], [address], [facility] [employer] 01/22/2018 15:29:09 Date Recorded Body height Body temperature Heart rate Respiratory rate Oxygen saturation Oxygen saturation in Arterial blood by Pulse oximetry Systolic blood pressure Diastolic blood pressure Provider Name and Address Organization Details Last Updated DateTime 8 163.07 cm 97.2 [degF] 68 /min 18 /min 94 % 94 % 106 mm[Hg] 49 mm[Hg] JOSUE FERRERAVANESSA SCHULTZ [address] [facility], [facility] [address], [place], [address], [facility] 8 16:58:27 Date Recorded Body height Heart rate Respiratory rate Body temperature Provider Name and Address Organization Details Last Updated DateTime 02/05/2018 163.07 cm 70 /min 16 /min 97.1 [degF] LIGIA LEMUS [address] [facility], [facility] [address], [place], [address] , [facility] 02/05/2018 14:25:46 Date Recorded Body height Heart rate Respiratory rate Body temperature Oxygen saturation Oxygen saturation in Arterial blood by Pulse oximetry Systolic blood pressure Diastolic blood pressure Provider Name and Address Organization Details Last Updated DateTime 8 163.07 cm 61 /min 18 /min 98.1 [degF] 98 % 98 % 116 mm[Hg] 56 mm[Hg] JOSUEVANESSA DEVINE [address] [facility], [facility] [address], [place], [address], [facility] 8 16:42:44 Social History Question Answer Notes LastModified by Organizat ion Details LastModified Time Tobacco Smoking Status Unknown If Ever Smoked Not Available [facility] 03/29/2020 03:13:20 Do You Have An Advance Directive? Yes Full Code [id number] Information not available 03/29/2020 What Was The Date Of Your Most Recent Tobacco Screening? 02/07/2018 [id number] Information not available 03/29/2020 Sex: Unknown Functional Status None recorded. Mental Status None recorded. Family History Nothing Reported. Medical History No medical history recorded. Gynecological HistoryNo gynecological history recorded. Obstetrics History GPAL:G 0 P 0 0 0 0 Past Encounters Encounter ID Performer Location Encounter Start Date Encounter Closed Date Diagnosis/Indication Diagnosis SNOMED-CT Code Diagnosis ICD10 Code Diagnosis Note [id number] LIGIA FREY [address] [facility] [place] [address] 12/18/2017 16:36:21 12/23/2017 16:12:52 Pulmonary hypertension 97891198 I27.0 lasix 40 mg dailyfollo w up with cards in 1-2 weeksObtai n follow up chest xray in 1 week to see if pulm edema has resolvedco nt. 02 PRN to keep sats above 92% Fracture o f shaft of femur 18092552 S72.324D Tylenol 650 mg TID scheduledP ercocet PRN for severe painPT/OT eval and treatbrace on right knee at all times Essential hypertension 04287739 I10 Continue atenolol 50 mg dailylosar infante 100 mg dailyamlod ipine 5 mg dailynitro 0.4 sl prnmonitor bps daily Gout 45348559 M10.061 allopurino l 100 mg dailyasa 81 mg daily [id number] Sho Houser MD [address] [place] [address] 12/19/2017 17:49:22 12/24/2017 08:23:57 Pulmonary hypertension 50711460 I27.0 As above, also on lasix 40 mg qd with KCl 10 meq BID. Will f/u with cardio as planned, may need MVR, as this is thought part of the reason for her pulmonary HTN. Will repeat CXR next week to reassess pulmonary edema.Cont . 02 as above. Fracture o f shaft of femur 17748145 S72.324D Will need PT/OT for strengthen ing [...] times. F/U ortho as planned. Essential hypertension 37444790 I10 Good control on atenolol 50 mg qd, losartan 100 mg qd, amlodipine 5 mg qd and nitro 0.4 sl prnMonitor BP and labs. Gout 99866858 M10.061 Continue allopurino l 100 mg qd. Monitor for sxs. Solitary n odule of lung 887352963 R91.1 Will f/u with pulmonary for assessment . Acute-on-c hronic respiratory failure 29820276 J96.21 J96.12 On O2 at baseline, with acute worsening inpt. likely secondary to pulmonary HTN (see below). Continue O2 by NC, titrated to keep sats above between 90-94% so as not to induce hypercapni a. Will f/u with pulmonary and cardio. Obstructiv e sleep apnea syndrome 68316730 G47.33 Continue CPAP as usual. Mixed hyperlipidemia 267 818606 E78.2 Continue atorvastat in 80 mg qd and ASA 81 mg qd. Monitor labs as outpt. [id number] VANESSA HARDEN [address] [place] [address] 12/27/2017 17:27:17 01/02/2018 15:17:31 Chronic disease of respiratory system 29955921 J98.9 she has not needed her oxygen at this time but knows she can use it if neededshe is seeing pulmonolog y on saturday for a follow up Obstructiv e sleep apnea syndrome 96413256 G47.33 she feels her cpap is not working rightwill order oxygen 2 liters via nc at night for nowmonitor Fracture o f shaft of femur 18927708 S72.8X1S continues with lidoderm patches on right legsees ortho next weekawaiti ng decision about next stepcontin ues non weight bearing status [id number] Sal Esparza MD [facility] [address] [place] [address] 01/15/2018 10:09:17 01/28/2018 13:33:13 Fracture of shaft of femur 51269175 S72.391D inform ortho of eventxray at facility to reeval [id number] VANESSA HARDEN [address] [address] 01/17/2018 11:10:56 01/28/2018 13:53:07 Essential hypertension 18253441 I10 norvasc 5 mg qdatenolol 50 mg qdlasix 40 mg qdlosartan potassium 100 mg qdmonitor b/p and labs Chronic di sease of respiratory system 72941895 J98.9 she follows with pulmonolog yshe uses oxygen as neededmoni tor respirator y status Fracture o f shaft of femur 32646066 S72.8X1S continues with lidoderm patches on right leg non weight bearing status follows with orthofelt she hurt it worsex-ray was negative and said there was the healing fracturewa nts CT results from ortho but doesn't see them til 30 thmonitor [id number] LIGIA NAVARRETE SHANTE [address] [place], [place] [address] [address] 01/22/2018 15:15:11 01/28/2018 14:03:23 Essential hypertension 94003557 I10 norvasc 5 mg qdatenolol 50 mg qdlasix 40 mg qdlosartan potassium 100 mg qdmonitor b/p and labs Chronic di sease of respiratory system 02582670 J98.9 Follows with pulmonolog yCPAP at bedtime while sleeping she uses oxygen as neededmoni tor respirator y status Fracture o f shaft of femur 63140153 S72.8X1S continues with lidoderm patches on right leg non weight bearing status, toe touch only follow up with ortho this saturday to determine weight bearing statusmoni tor for pain controltyl enol 650 mg q 8 hours PRN [id number] VANESSA HARDEN [address] [place] [address] 01/27/2018 16:57:24 02/12/2018 08:38:08 Fracture of shaft of femur 00607776 S72.8X1S continues with lidoderm patches on right legfollows with orthotoe touch allowedhom e visit this weekcontin ues with therapy Essential hypertension 03904921 I10 norvasc 5 mg qdatenolol 50 mg qdlasix 40 mg qdlosartan potassium 100 mg qdmonitor b/p and labs Mixed hyperlipidemia 267 941446 E78.2 carries diagnosisn ot on medication monitor labs [id number] LIGIA LEMUS [place] [address] [facility] [place] [address] 02/05/2018 14:10:52 02/12/2018 11:56:12 Fracture of shaft of femur 80006531 S72.8X1S continues with lidoderm patches on right legfollows with ortho in 4 weekstoe touch allowed only at this timecontin ues with therapyHom e eval went well, question possible discharge by the end of this week D/C colace 100 mg daily due to loose stools Essential hypertension 67965305 I10 norvasc 5 mg qdatenolol 50 mg qdlasix 40 mg qdlosartan potassium 100 mg qdmonitor b/p and labs [id number] VANESSA HARDEN [address] [place] [address] [place] [address] 02/07/2018 16:41:46 02/12/2018 12:03:29 Fracture of shaft of femur 58928031 S72.8X1S continues with lidoderm patches on right legfollows with orthotoe touch allowedtyl enol 650 mg q 8 hrspercoce t q 4 hrs prnfollow up with ortho Essential hypertension 08258272 I10 ASA 81 mgnorvasc 5 mg qdatenolol 50 mg qdlasix 40 mg qdpotassiu m 10 meq qdlosartan potassium 100 mg qdfollow up with PCP Mixed hyperlipidemia 267 082424 E78.2 atorvastat in 80 mg qd follow up with PCP Obstructiv e sleep apnea syndrome 88194023 G47.33 continue home CPAPfollow up with PCP Gout 69675692 M10.49 allopurino l 100 mg qdfollow up with PCP Chronic di sease of respiratory system 49004493 J98.9 she follows with pulmonolog yshe uses [...] 2 [place] [employer] [place] Ramona Pinon [id number] Ramona Pinon 01/17/2018 1 [place] Ramona Pinon [id number] Ramona Pinon 01/22/2018 2 [place] Ramona Pinon [id number] Ramona Pinon 01/22/2018 1 [place] [place] Ramona Pinon [id number] Ramona Pinon 01/27/2018 2 [place] Ramona Pinon [id number] Ramona Pinon 01/27/2018 1 [place] [place] [place] Ramona Pinon [id number] Ramona Pinon 02/05/2018 2 [place] Ramona Pinon [id number] Ramona Pinon 02/05/2018 1 [place] [facility] Ramona Pinon [id number] Ramona Pinon 02/07/2018 2 [facility] Ramona Pinon [id number] Ramona Pinon 02/07/2018 1 [place] [facility] Ramona Pinon [id number] Ramona Pinon Notes Date Note Type Note [...] been working with therapy. VANESSA HARDEN [address] [facility], [address], [place], [address], [facility] 01/17/2018 11:55:52 01/22/2018 text/html A 77 year old female being seen today for acute rounding visit. Pt has follow up with ortho this saturday to determine if she can move to weight bearing status. Otherwise she has no new health concerns at this time. LIGIA LEMUS [address] [facility], [address], [place], [address], [facility] 01/22/2018 15:31:01 01/27/2018 text/html A 77 year old female being seen for a acute rounding visit. She has been working with therapy and will have a home visit soon. She is toe touch at this time. She sees ortho in 5 weeks. Staff notes no concerns at this time. VANESSA HARDEN [address] [facility], [address], [place], [address], [facility] 01/27/2018 17:14:53 02/05/2018 text/html A 77 year [...] for loose stool often. LIGIA LEMUS [address] [facility], [address], [place], [address], [facility] 02/05/2018 14:25:49 02/07/2018 text/html A 77 year [...] disease and pulmonary hypertension. VANESSA HARDEN [address] [facility], [address], [place], [address], [facility] 02/07/2018 16:59:57 OBGyn Episode No OBEpisode recorded.
--- NOTE | 2024-08-27 09:16 | MHC.OFFVISCO ---
Intake Intake Visit Reasons: Anticoagulation Allergies acetaminophen [From Vicodin] Allergy (Intermediate, Verified 08/27/24 08:24) per patient hydrocodone [From Vicodin] Allergy (Mild, Verified 08/27/24 08:24) CHEST PAIN Medication List - Last Reconciled 08/27/24 by Yolis Mendez RN acetaminophen 650 mg PO Q8H PRN albuterol sulfate 90 mcg/actuation 2 puffs inhalation Q4-6H PRN amiodarone 200 mg PO DAILY ascorbate calcium (vitamin C) 500 mg PO DAILY aspirin (Noel Low Dose Aspirin) 81 mg PO DAILY atorvastatin 80 mg PO DAILY carvedilol 12.5 mg PO BID furosemide (Lasix) 40 mg PO DAILY xtukchfyuqyo-Xh-yhif-minerals 1 tab PO DAILY omeprazole 20 mg PO BID@0630,1630 potassium chloride ER 30 mEq (1.5 x 20 mEq) PO DAILY vitamin B complex 1 tab PO DAILY warfarin See Protocol 2.5 mg orally 2.5MG DAILY WHILE RECOVERING MAY NEED DOSE ADJUSTMENTS; zinc gluconate 50 mg PO DAILY Nursing Note INR 5.6?POC out of therapeutic range sent to lab for validation 6.1 INR along with CBC due decreased palor- states she feels sob past few days, b/p 104/59 hr 72 regular with possible audible murmur. Bilat upper lobes clear, right base questionable fine crackles, lips and nailbeds light pink, able to speak full sentences, bilat edema noticable, she sates where the sticker was pulled off from stress test is weeping fluid and has a bandage on it. Enc to watch for s/sx of infection. she has cardiac cath, cardioversion and renal stent removal all pending. Medications and supplements reviewed Patient status: decreased appetite- can be affecting INR Medications or supplements: no changes - amioderone 07/2024 still could be affecting the INR Diet: states she is eating Denies any signs and symptoms of bleeding or clotting or unusual bruising Bleeding, bruising, clotting discussed Nutritional guidance given: greens today cooked greens lower INR more than raw Dose: hold today and check INR tomorrow F/U INR Date : 08/28/24 Patient and grandson verbalize understanding of instructions given with read back. t/c to Dr Macedo spoke with nurse Samson of critical INR along with pt status mentioned above - she will convey msg to PCP and ask pt to come in for appt Anti-Coag Initial Assessment Social Hx Patient Tobacco Use Status: Former Tobacco user Tobacco use type: Cigarette alcohol intake: never Coding Level of Care Code Est Patient Level 2 Diagnoses Current use of anticoagulant therapy Z79. 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
== END 2024-08-27 10:05 | disposition home or self-care (01) ==
LOC: HO.ACS 08:15
PROVIDERS: PCP Internal Medicine; Visit Provider Internal Medicine Medical Oncology
DX: Z79.01 Long term (current) use of anticoagulants (principal)

== ENCOUNTER 2024-08-27 08:15 | Outpatient (REF) | payer MEDICARE, BC, SELFPAY ==
[2024-08-27 09:03] LABS: Hematocrit 36.8 % (37.0-47.0); Hemoglobin 12.1 g/dl (12.0-16.0); Mean Corpuscular HGB Conc 32.9 g/dl (31.0-35.0); Mean Corpuscular Hemoglobin 28.3 pg (27.0-33.0); Mean Platelet Volume 10.1 fL (9.4-12.3); Platelet Count 146 X10*3/uL (160-400); Red Blood Count 4.28 X10*6/uL (4.20-5.50); Red Cell Distribution Width 17.3 % (11.0-16.0); White Blood Count 4.8 X10*3/uL (4.8-10.8)
[2024-08-27 09:26] LABS: Prothrombin Time 71.4 SEC (10.9-12.4)
[2024-08-27 09:29] LABS: INTERNATIONAL NORM RATIO 6.1 (0.9-1.1)
== END 2024-08-27 08:16 | disposition home or self-care (01) ==
LOC: HO.LAB 08:15
PROVIDERS: PCP Internal Medicine; Visit Provider Internal Medicine Medical Oncology
DX: I50.20 Unspecified systolic (congestive) heart failure (principal); N20.0 Calculus of kidney; I48.0 Paroxysmal atrial fibrillation; Z51.81 Encounter for therapeutic drug level monitoring; Z79.01 Long term (current) use of anticoagulants
CPT/HCPCS: 36415; 85027; 85610; 96127; 99212

== ENCOUNTER 2024-08-27 13:56 | Outpatient (AMB) | payer MEDICARE, BC, SELFPAY ==
[2024-08-27 13:59] VITALS: BP 104/54; PULSE 80; O2SAT 96; BMI 27.1
--- NOTE | 2024-08-27 13:59 | MHC.PC.OV ---
Vital Signs 08/27/24 13:59 Height 5 ft 4 in Weight 158 lb BMI 27.1 BP 104/54 L Blood Pressure Location Rt brachial Position Sitting Pulse 80 Pulse Source Pulse Oximeter Pulse Oximetry (%) 96 Oxygen Delivery Method Room Air Intake Visit Reasons: Edema Intake Note: Pt is here today for a sick visit. Pt c/o edema and critical INR result. Allergies acetaminophen [From Vicodin] Allergy (Intermediate, Verified 08/27/24 08:24) per patient hydrocodone [From Vicodin] Allergy (Mild, Verified 08/27/24 08:24) CHEST PAIN Tobacco use date assessed: 08/27/24 Dental Screening Dental Screen Date: 08/04/24 HPI Edema HPI Details Patient presents for the follow-up of cardiomyopathy with a ejection fraction around 18% on nuclear scan. She follows up with [facility] and is scheduled for cardiac catheterization and change pacemaker to biventricular. Patient is wheelchair bound but denies PND orthopnea chest pain palpitations. She has been tolerating carvedilol and furosemide. Patient follows up with Coumadin clinic for warfarin management and had high INR and warfarin has been held. Patient denies any acute bleed FOR[facility] Medical History Chronic atrial fibrillation Chronic anticoagulation Obesity CKD (chronic kidney disease) stage 3, GFR 30-59 ml/min Nephrolithiasis, uric acid Hyperlipidemia HTN (hypertension) A-fib GORDON (obstructive sleep apnea) COPD (chronic obstructive pulmonary disease) Pulmonary HTN Severe mitral regurgitation Thiamine deficiency Osteoporosis Surgical History Hx of hernia repair History of open reduction and internal fixation (ORIF) procedure Family History Father No problems noted. Mother No problems noted. Maternal Aunt Breast cancer Social History Household Members: Spouse Housing: House Do you presently have visiting nurse or other home services: No Alcohol intake: never Patient Tobacco Use Status: Former Tobacco user Tobacco use type: Cigarette e-Cigarette/Vaping Use: Never Used Second Hand Smoke Exposure: No Advance Directives Date on File: 11/28/23 service: No Current occupational status: retired Cognitive needs: No Hearing needs: No Vision needs: No Questionnaire PHQ-9 Over the last 2 weeks, how often have you been bothered by any of the following problems? 1. Little interest or pleasure in doing things: not at all 2. Feeling down, depressed, or hopeless: not at all 3. Trouble falling or staying asleep, or sleeping too much: not at all 4. Feeling tired or having little energy: not at all 5. Poor appetite or overeating: not at all 6. Feeling bad about yourself - or that you are a failure or have let yourself or your family down: not at all 7. Trouble concentrating on things, such as reading the newspaper or watching television: not at all 8. Moving or speaking so slowly that other people could have noticed. Or the opposite - being so fidgety or restless that you have been moving around a lot more than usual: not at all 9. Thoughts that you would be better off or of hurting yourself in some way: not at all Total score: 0 Depression Screening Interpretation: Negative Depression Screening Done: Yes 51110 - PHQ-9 Billing: Yes Source: Developed by Drs. Tae Valentine, Becca Olivia, Silviano Stallings and colleagues, with an educational lauryn from [employer]. Thrive Questionnaire Date Thrive assessed: 08/04/24 I am a: Patient What is your living situation today?: I choose not to answer this question Within the past 12 months, did the food you bought not last and you didn't have the money to get more?: I choose not to answer this question Within the past 12 months, did you worry whether your food would run out before you got money to buy more?: I choose not to answer this question Do you have trouble paying for medicines?: I choose not to answer this question Do you have trouble getting transportation to medical appointments?: I choose not to answer this question Do you have trouble paying your heating and electricity bill?: I choose not to answer this question Do you have trouble taking care of your child, family member or friend?: I choose not to answer this question Do you have trouble with day-to-day activities such as bathing, preparing meals, shopping, managing finances, etc.?: I choose not to answer this question Are you currently unemployed and looking for a job?: I choose not to answer this question Are you interested in more education?: I choose not to answer this question Please select the resources that you would like help with: None Currently or been in a relationship where the following occur: I choose not to answer THRIVE Score: 0 ADRIAN-7 AMB Questionnaire ADRIAN-7 Date ADRIAN - 7 assessed: 08/04/24 Source: Developed by Drs. Tae Valentine, Becca Olivia, Silviano Stallings and colleagues, with an educational aluryn from [employer]. Review of Systems Const All systems reviewed & are unremarkable except as noted in HPI and below Eyes Reports no additional complaints ENT Reports no additional complaints Card Reports no additional complaints Resp Reports no additional complaints GI Reports no additional complaints Reports no additional complaints Physical exam (Primary Care) Vital Signs: Last Vital Signs Pulse 80 08/27/24 13:59 BP 104/54 L 08/27/24 13:59 Pulse Ox 96 08/27/24 13:59 Oxygen Delivery Method Room Air 08/27/24 13:59 BMI result Body Mass Index 27.1 Tobacco/Smoking Status: Tobacco use Status Tobacco use date assessed 08/27/24 08/27/24 14:03 Patient Tobacco Use Status Former Tobacco user 08/27/24 14:00 Tobacco use type Cigarette 08/27/24 14:00 e-Cigarette/Vaping Use Never Used 08/27/24 14:00 PHQ-9: PHQ-9 Score PHQ-9: Total score 0 08/27/24 14:00 Depression Screening Interpretation: Negative Thrive Assessment: Date of Thrive Assessment Date Thrive assessed 08/04/24 08/27/24 14:00 Currently or been in a relationship where the following occur: I choose not to answer Const General: no acute distress HENMT Head: Yes normal to inspection Neck Neck: Yes supple Resp Effort & Inspection: normal respiratory effort Auscultation: diminished lung sounds Cardio Rhythm: regular rhythm Heart sounds: S1 normal heart sound present and S2 normal heart sound present GI Inspection: Yes normal to inspection Palpation (GI): Soft to palpation Extrem Other: 1+ pitting edema bilaterally Coding Level of Care Code Est Pt Level 4 (23516) Diagnoses HFrEF (heart failure with reduced ejection fraction) I50.20 Nephrolithiasis, uric acid N20.0 A-fib I48.91 Additional Codes PHQ-9 - 60318 - PHQ-9 Billing: Yes ([id number]) Assessment & Plan Assessment & Plan (1) HFrEF (heart failure with reduced ejection fraction): Comment: Cardiology [facility], Echo 10/2022 global left ventricular hypokinesis ejection fraction 40%, severe decreased function of right ventricle, Echo 06/2024 EF 20%-25%, started on amiodarone and scheduled for cardioversion Code(s): I50.20 - Unspecified systolic (congestive) heart failure Category: Medical Plan: Continue current medications and management as per Cardiology (2) Nephrolithiasis, uric acid: Code(s): N20.0 - Calculus of kidney Category: Medical Plan: Follow-up with urology (3) A-fib: Comment: Follows up with Cardiology on Warfarin for s/p MVR Code(s): I48.91 - Unspecified atrial fibrillation Category: Medical Plan: Continue anticoagulation and follow-up with the Cardiology for rate control
--- OUTSIDE RECORDS SUMMARY | 2024-08-27 17:25 | XMS_ITS | Clinical Summary ---
Author Organization [facility] Facility Address [address] [address] Care Team Providers Care Curtain Framer Name Role Phone Kiesha Macedo MD Primary Care Provider [phone] Social History Tobacco Use Types Packs/Day Years [...] age to complete this topic Insurance [facility] Care Teams Curtain Framer Relationship Specialty Start Date End Date Kiesha Macedo MD 1959 [place], [place] PCP - General Internal Medicine 08/29/22
== END 2024-08-27 14:47 | disposition home or self-care (01) ==
LOC: HO.HMCC 13:57
PROVIDERS: PCP Internal Medicine; Visit Provider Internal Medicine
DX: I50.20 Unspecified systolic (congestive) heart failure (principal); N20.0 Calculus of kidney; I48.91 Unspecified atrial fibrillation

== ENCOUNTER 2024-08-28 13:00 | Outpatient (AMB) | payer MEDICARE, BC, SELFPAY ==
[2024-08-28 13:14] LABS: Prothrombin Time Whole Bld POC 52.9 sec (11.1-13.5); ~PT, ~INR - Anti Coag Clinic 4.4 (0.9-1.1)
--- NOTE | 2024-08-28 13:21 | MHC.OFFVISCO ---
Intake Intake Visit Reasons: Anticoagulation Allergies acetaminophen [From Vicodin] Allergy (Intermediate, Verified 08/28/24 13:03) per patient hydrocodone [From Vicodin] Allergy (Mild, Verified 08/28/24 13:03) CHEST PAIN Nursing Note Comes by w/c with grandana Dean INR ??4.4 out of therapeutic range Medications and supplements reviewed Patient status: states food does not appeal to her - she isnt hungry - ? if r/t to poor cardiac function, enc just small meals/ snack at a time Medications or supplements: no changes Diet: poor Denies any signs and symptoms of bleeding or clotting or unusual bruising Bleeding, bruising, clotting discussed Nutritional guidance given: protein Dose: hold today then 1.25mg sat 2.5mg sun 1.25mg saturday F/U INR Date : 08/31/24?? Patient and grandson verbalize understanding of instructions given. 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
== END 2024-08-28 13:24 | disposition home or self-care (01) ==
LOC: HO.ACS 13:00
PROVIDERS: PCP Internal Medicine; Visit Provider Internal Medicine Medical Oncology
DX: Z79.01 Long term (current) use of anticoagulants (principal)

== ENCOUNTER → 2024-08-28 13:00 | Outpatient (BNVA) | payer MEDICARE, BC, SELFPAY | PROVIDERS: PCP Internal Medicine; Visit Provider Internal Medicine Medical Oncology | DX: I48.0 Paroxysmal atrial fibrillation (principal); Z79.01 Long term (current) use of anticoagulants; Z51.81 Encounter for therapeutic drug level monitoring | CPT/HCPCS: 85610; 99211 ==

== ENCOUNTER 2024-08-31 08:19 | Outpatient (AMB) | payer MEDICARE, BC, SELFPAY ==
[2024-08-31 08:38] LABS: Prothrombin Time Whole Bld POC 56.3 sec (11.1-13.5); ~PT, ~INR - Anti Coag Clinic 4.7 (0.9-1.1)
--- NOTE | 2024-08-31 08:51 | MHC.OFFVISCO ---
Intake Intake Visit Reasons: Anticoagulation Allergies acetaminophen [From Vicodin] Allergy (Intermediate, Verified 08/31/24 08:31) per patient hydrocodone [From Vicodin] Allergy (Mild, Verified 08/31/24 08:31) CHEST PAIN Medication List - Last Reconciled 08/31/24 by Yolis Mendez, RN acetaminophen 650 mg PO Q8H PRN albuterol sulfate 90 mcg/actuation 2 puffs inhalation Q4-6H PRN amiodarone 200 mg PO DAILY ascorbate calcium (vitamin C) 500 mg PO DAILY aspirin (Noel Low Dose Aspirin) 81 mg PO DAILY atorvastatin 80 mg PO DAILY carvedilol 12.5 mg PO BID furosemide (Lasix) 40 mg PO DAILY mfvkpakozqai-Ii-ehvn-minerals 1 tab PO DAILY omeprazole 20 mg PO BID@0630,1630 potassium chloride ER 30 mEq (1.5 x 20 mEq) PO DAILY vitamin B complex 1 tab PO DAILY warfarin See Protocol 2.5 mg orally 2.5MG DAILY WHILE RECOVERING MAY NEED DOSE ADJUSTMENTS; zinc gluconate 50 mg PO DAILY Nursing Note [facility] 4.7?? out of therapeutic range Medications and supplements reviewed Patient status: does not have any appetite - ? if r/t to heart / cardiac status Medications or supplements: no change Diet: very poor - states she does no thave any appetite Denies any signs and symptoms of bleeding or clotting or unusual bruising Bleeding, bruising, clotting discussed Nutritional guidance given: try to eat small portions Dose: already took today's dose takes warfarin in am hold sat and F/U INR Date : 09/03/2024 ?? Patient verbalizing understanding of instructions given. Anti-Coag Initial Assessment Social Hx Patient Tobacco Use Status: Former Tobacco user Tobacco use type: Cigarette alcohol intake: never Coding Level of Care Code Est Patient Level 1 Diagnoses Current use of anticoagulant therapy Z79.01 Assessment & Plan Assessment & Plan (1) Current use of anticoagulant therapy: Code(s): Z79.01 - FDC (current) use of 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
== END 2024-08-31 08:56 | disposition home or self-care (01) ==
LOC: HO.ACS 08:19
PROVIDERS: PCP Internal Medicine; Visit Provider Internal Medicine Medical Oncology
DX: Z79.01 Long term (current) use of anticoagulants (principal)

== ENCOUNTER → 2024-08-31 08:19 | Outpatient (BNVA) | payer MEDICARE, BC, SELFPAY | PROVIDERS: PCP Internal Medicine; Visit Provider Internal Medicine Medical Oncology | DX: I48.0 Paroxysmal atrial fibrillation (principal); Z51.81 Encounter for therapeutic drug level monitoring; Z79.01 Long term (current) use of anticoagulants | CPT/HCPCS: 85610; 99211 ==

== ENCOUNTER 2024-09-03 13:12 | Outpatient (AMB) | payer MEDICARE, BC, SELFPAY ==
[2024-09-03 13:20] LABS: Prothrombin Time Whole Bld POC 34.1 sec (11.1-13.5); ~PT, ~INR - Anti Coag Clinic 2.8 (0.9-1.1)
--- NOTE | 2024-09-03 13:44 | MHC.OFFVISCO ---
Intake Intake Visit Reasons: Anticoagulation Allergies acetaminophen [From Vicodin] Allergy (Intermediate, Verified 09/03/24 13:14) per patient hydrocodone [From Vicodin] Allergy (Mild, Verified 09/03/24 13:14) CHEST PAIN Medication List - Last Reconciled 09/03/24 by Yolis Mendez RN acetaminophen 650 mg PO Q8H PRN albuterol sulfate 90 mcg/actuation 2 puffs inhalation Q4-6H PRN amiodarone 200 mg PO DAILY ascorbate calcium (vitamin C) 500 mg PO DAILY aspirin (Noel Low Dose Aspirin) 81 mg PO DAILY atorvastatin 80 mg PO DAILY carvedilol 12.5 mg PO BID furosemide (Lasix) 40 mg PO DAILY dxscricfngfk-Zt-ytoy-minerals 1 tab PO DAILY omeprazole 20 mg PO BID@0630,1630 potassium chloride ER 30 mEq (1.5 x 20 mEq) PO DAILY vitamin B complex 1 tab PO DAILY warfarin See Protocol 2.5 mg orally 2.5MG DAILY WHILE RECOVERING MAY NEED DOSE ADJUSTMENTS; zinc gluconate 50 mg PO DAILY Nursing Note pt comes to appt with grandson via wheel chair - appears almost maura - was notified of her decreased appetite and weight loss INR: 2.8 in therapeutic range Medications and supplements reviewed 09/04- last dose of warfarin 09/05-stop warfarin x 5 days 09/10- cardiac cath 09/10 resume warfarin if able 2.5mg x 2 days then 1.25mg daily 09/14 chk INR due being so labile and decreased warfarin dose Denies any signs and symptoms of bleeding or bruising or clotting. Bleeding, bruising, clotting discussed Nutritional guidance given - eat Dose: hold today then 1.25mg fri then hold x 5 days and resume per md orders then 2.5mg x 2 days 1.25mg all other days F/U INR: 09/14/24 Patient verbalizes understanding of instructions given Anti-Coag Initial Assessment Social Hx Patient Tobacco Use Status: Former Tobacco user Tobacco use type: Cigarette alcohol intake: never Coding Level of Care Code Est Patient Level 1 Diagnoses Current use of anticoagulant therapy Z79.01 Results AMB INR Fingerstick AMB INR Fingerstick 2.8 Last Edit by Yolis Mendez RN on 09/03/24 13:27 MANUAL ENTRY Assessment & Plan Assessment & Plan (1) Current use of anticoagulant therapy: Code(s): 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
--- OUTSIDE RECORDS SUMMARY | 2024-09-03 14:24 | XMS_ITS | Data Portability ---
Author Organization [facility], Main Office Address [address] [facility], [facility] [address] [place] [address] Care Team Providers Care Nicker Name Role Phone LANDON FREY 1ST FLOOR OTHER Assessment Encounter Date Assessment Date Assessment LastModified by Organization Details LastModified Time 01/17/2018 01/17/2018 01/13/18 WBC 4.3, Hgb 11.8, Hct 35.1, Na 141, K 3.6, BUN 12, Case Checker 0.62 [email or web address] Not available 01/17/2018 11:17:28 01/22/2018 01/22/201801/13: na 141, k 3.6, bun 12, creat 0.62, wbc 4.3, hgb 11.8, hct 35.1 glord Not available 01/22/2018 15:24:19 01/27/2018 01/27/2018 01/27/18 WBC 5.4, Hgb 13.7, Hct 41.3, Na 142, K 3.9, BUN 12, Case Checker 0.59 [email or web address] Not available 01/27/2018 17:03:47 02/05/2018 02/05/201802/03: na 143, k 3.7, bun 15, creat 0.66, wbc 4.2, hgb 11.5, hct 35.2 glord Not available 02/05/2018 14:14:26 02/07/2018 02/07/2018 02/03/18 WBC 4.2, Hgb 11.5, Hct 35.2, Na 143, K 3.7, BUN 15, Case Checker 0.66 [email or web address] Not available 02/07/2018 16:44:48 Plan [...] Address Organization Details Recorded Time Pulmonary hypertension 25776408 Active [address], [address], [place], [address], [facility] 8 16:34:20 Obstructive sleep apnea syndrome 69517523 Active [address], [address], [place], [address], [facility] 8 16:34:24 Mitral valve regurgitation 44594862 Active [address], [address], [place], [address], [facility] 8 16:34:38 Aortic valve regurgitation 94413108 Active [address], [address], [place], [address], [facility] 8 16:34:44 Fracture of shaft of femur 96592283 Active [address], [address], [place], [address], [facility] 8 16:35:57 Essential hypertension 91810734 Active [address], [address], [place], [address], [facility] 8 16:36:05 Chronic disease of respiratory system 42871441 Active [address], [address], [place], [address], [facility] 8 16:36:13 Gout 03262322 Active [address], [address], [place], [address], [facility] 8 16:44:07 Hylwc-lm-ixesv ic respiratory failure 96968763 Active 2017 Sho Houser MD [address] [facility], [address], [place], [address], [facility] 8 20:08:21 Fracture of shaft of femur 19505009 Active 2017 Sho Houser MD [address] [place] [address], [address], [place], [address], [facility] 8 20:11:04 Solitary nodule of lung 932064396 Active 2017 Sho Houser MD [address] [place] [address], [facility] [address], [place], [address], [facility] 8 20:17:21 Mixed hyperlipidemia 183032811 Active 2017 Sho Houser MD [address] [place] [address], [facility] [address], [place], [address], [facility] 8 20:19:54 Problem Notes None recorded. Medical Equipment None Reported. Allergies Allergen ID Allergen Name Allergen Category Reaction Reaction Severity Criticality Documentation Date Start Date Code Code System Note Provider Name and Address Organization Details Recorded Time 20727 acetamino phen / hydrocodo ne medicatio n Not available Not available Not available 12/18/2017 80881 2 RxNorm Not Available Not Available Not [...] 138 mm[Hg] 62 mm[Hg] VANESSA HARDEN [address] [facility], [facility] [address], [place], [address], [facility] 8 11:11:37 Date Recorded Body height Heart rate Respiratory rate Provider Name and Address Organization Details Last Updated DateTime 01/22/2018 163.07 cm 72 /min 16 /min LIGIA LEMUS [address] [facility], [facility] [address], [place], [address], [place] [employer] [facility] 01/22/2018 15:29:09 Date Recorded Body height Body temperature Heart rate Respiratory rate Oxygen saturation Oxygen saturation in Arterial blood by Pulse oximetry Systolic blood pressure Diastolic blood pressure Provider Name and Address Organization Details Last Updated DateTime 8 163.07 cm 97.2 [degF] 68 /min 18 /min 94 % 94 % 106 mm[Hg] 49 mm[Hg] JOSUE FERRERAVANESSA SCHULTZ [address] [facility], [facility] [address], [place], [address], [facility] 8 16:58:27 Date Recorded Body height Heart rate Respiratory rate Body temperature Provider Name and Address Organization Details Last Updated DateTime 02/05/2018 163.07 cm 70 /min 16 /min 97.1 [degF] LIGIA LEMUS [address] [facility], [facility] [address], [place], [address] , [employer] [facility] 02/05/2018 14:25:46 Date Recorded Body height Heart rate Respiratory rate Body temperature Oxygen saturation Oxygen saturation in Arterial blood by Pulse oximetry Systolic blood pressure Diastolic blood pressure Provider Name and Address Organization Details Last Updated DateTime 8 163.07 cm 61 /min 18 /min 98.1 [degF] 98 % 98 % 116 mm[Hg] 56 mm[Hg] JOSUEVANESSA DEVINE [address] [facility], [facility] [address], [place], [address], [employer] [facility] 8 16:42:44 Social History Question Answer Notes LastModified by Organizat ion Details LastModified Time Tobacco Smoking Status Unknown If Ever Smoked Not Available [facility] 03/29/2020 03:13:20 Do You Have An Advance Directive? Yes Full Code [id number] Information not available 03/29/2020 What Was The Date Of Your Most Recent Tobacco Screening? 02/07/2018 [id number] Information not available 03/29/2020 Sex: Unknown Functional Status None recorded. Mental Status None recorded. Family History Nothing Reported. Medical History No medical history recorded. Gynecological HistoryNo gynecological history recorded. Obstetrics History GPAL:G 0 P 0 0 0 0 Past Encounters Encounter ID Performer Location Encounter Start Date Encounter Closed Date Diagnosis/Indication Diagnosis SNOMED-CT Code Diagnosis ICD10 Code Diagnosis Note [id number] LIGIA FREY [address] [facility] [place] [address] 12/18/2017 16:36:21 12/23/2017 16:12:52 Pulmonary hypertension 68949967 I27.0 lasix 40 mg dailyfollo w up with cards in 1-2 weeksObtai n follow up chest xray in 1 week to see if pulm edema has resolvedco nt. 02 PRN to keep sats above 92% Fracture o f shaft of femur 88843386 S72.324D Tylenol 650 mg TID scheduledP ercocet PRN for severe painPT/OT eval and treatbrace on right knee at all times Essential hypertension 16601823 I10 Continue atenolol 50 mg dailylosar infante 100 mg dailyamlod ipine 5 mg dailynitro 0.4 sl prnmonitor bps daily Gout 90145332 M10.061 allopurino l 100 mg dailyasa 81 mg daily [id number] Sho Houser MD [address] [place] [address] 12/19/2017 17:49:22 12/24/2017 08:23:57 Pulmonary hypertension 82242196 I27.0 As above, also on lasix 40 mg qd with KCl 10 meq BID. Will f/u with cardio as planned, may need MVR, as this is thought part of the reason for her pulmonary HTN. Will repeat CXR next week to reassess pulmonary edema.Cont . 02 as above. Fracture o f shaft of femur 71013388 S72.324D Will need PT/OT for strengthen ing [...] times. F/U ortho as planned. Essential hypertension 66631648 I10 Good control on atenolol 50 mg qd, losartan 100 mg qd, amlodipine 5 mg qd and nitro 0.4 sl prnMonitor BP and labs. Gout 35952340 M10.061 Continue allopurino l 100 mg qd. Monitor for sxs. Solitary n odule of lung 866637698 R91.1 Will f/u with pulmonary for assessment . Acute-on-c hronic respiratory failure 45291733 J96.21 J96.12 On O2 at baseline, with acute worsening inpt. likely secondary to pulmonary HTN (see below). Continue O2 by NC, titrated to keep sats above between 90-94% so as not to induce hypercapni a. Will f/u with pulmonary and cardio. Obstructiv e sleep apnea syndrome 81358845 G47.33 Continue CPAP as usual. Mixed hyperlipidemia 267 349437 E78.2 Continue atorvastat in 80 mg qd and ASA 81 mg qd. Monitor labs as outpt. [id number] VANESSA HARDEN [address] [place] [address] 12/27/2017 17:27:17 01/02/2018 15:17:31 Chronic disease of respiratory system 99281963 J98.9 she has not needed her oxygen at this time but knows she can use it if neededshe is seeing pulmonolog y on saturday for a follow up Obstructiv e sleep apnea syndrome 79536692 G47.33 she feels her cpap is not working rightwill order oxygen 2 liters via nc at night for nowmonitor Fracture o f shaft of femur 76801039 S72.8X1S continues with lidoderm patches on right legsees ortho next weekawaiti ng decision about next stepcontin ues non weight bearing status [id number] Sal Esparza MD [facility] [address] [place] [address] 01/15/2018 10:09:17 01/28/2018 13:33:13 Fracture of shaft of femur 16618221 S72.391D inform ortho of eventxray at facility to reeval [id number] VANESSA HARDEN [address] [address] 01/17/2018 11:10:56 01/28/2018 13:53:07 Essential hypertension 53879743 I10 norvasc 5 mg qdatenolol 50 mg qdlasix 40 mg qdlosartan potassium 100 mg qdmonitor b/p and labs Chronic di sease of respiratory system 73801725 J98.9 she follows with pulmonolog yshe uses oxygen as neededmoni tor respirator y status Fracture o f shaft of femur 39519556 S72.8X1S continues with lidoderm patches on right leg non weight bearing status follows with orthofelt she hurt it worsex-ray was negative and said there was the healing fracturewa nts CT results from ortho but doesn't see them til 30 thmonitor [id number] LIGIA NAVARRETE SHANTE [address] [place], [place] [address] [address] 01/22/2018 15:15:11 01/28/2018 14:03:23 Essential hypertension 52256373 I10 norvasc 5 mg qdatenolol 50 mg qdlasix 40 mg qdlosartan potassium 100 mg qdmonitor b/p and labs Chronic di sease of respiratory system 57337449 J98.9 Follows with pulmonolog yCPAP at bedtime while sleeping she uses oxygen as neededmoni tor respirator y status Fracture o f shaft of femur 16158850 S72.8X1S continues with lidoderm patches on right leg non weight bearing status, toe touch only follow up with ortho this saturday to determine weight bearing statusmoni tor for pain controltyl enol 650 mg q 8 hours PRN [id number] VANESSA HARDEN [address] [place] [address] 01/27/2018 16:57:24 02/12/2018 08:38:08 Fracture of shaft of femur 90996064 S72.8X1S continues with lidoderm patches on right legfollows with orthotoe touch allowedhom e visit this weekcontin ues with therapy Essential hypertension 36495512 I10 norvasc 5 mg qdatenolol 50 mg qdlasix 40 mg qdlosartan potassium 100 mg qdmonitor b/p and labs Mixed hyperlipidemia 267 820127 E78.2 carries diagnosisn ot on medication monitor labs [id number] LIGIA LEMUS [place] [address] [facility] [place] [address] 02/05/2018 14:10:52 02/12/2018 11:56:12 Fracture of shaft of femur 09360459 S72.8X1S continues with lidoderm patches on right legfollows with ortho in 4 weekstoe touch allowed only at this timecontin ues with therapyHom e eval went well, question possible discharge by the end of this week D/C colace 100 mg daily due to loose stools Essential hypertension 42734425 I10 norvasc 5 mg qdatenolol 50 mg qdlasix 40 mg qdlosartan potassium 100 mg qdmonitor b/p and labs [id number] VANESSA HARDEN [address] [place] [address] [place] [address] 02/07/2018 16:41:46 02/12/2018 12:03:29 Fracture of shaft of femur 08390688 S72.8X1S continues with lidoderm patches on right legfollows with orthotoe touch allowedtyl enol 650 mg q 8 hrspercoce t q 4 hrs prnfollow up with ortho Essential hypertension 78592788 I10 ASA 81 mgnorvasc 5 mg qdatenolol 50 mg qdlasix 40 mg qdpotassiu m 10 meq qdlosartan potassium 100 mg qdfollow up with PCP Mixed hyperlipidemia 267 689014 E78.2 atorvastat in 80 mg qd follow up with PCP Obstructiv e sleep apnea syndrome 07547099 G47.33 continue home CPAPfollow up with PCP Gout 13033759 M10.49 allopurino l 100 mg qdfollow up with PCP Chronic di sease of respiratory system 16697333 J98.9 she follows with pulmonolog yshe uses [...] 2 [place] Ramona Pinon [id number] Ramona Pinon 01/17/2018 1 [place] Ramona Pinon [id number] Ramona Pinon 01/22/2018 2 [place] Ramona Pinon [id number] Ramona Pinon 01/22/2018 1 [place] [place] Ramona Pinon [id number] Ramona Pinon 01/27/2018 2 [place] Ramona Pinon [id number] Ramona Pinon 01/27/2018 1 [place] [place] Ramona Pinon [id number] Ramona Pinon 02/05/2018 2 [place] Ramona Pinon [id number] Ramona Pinon 02/05/2018 1 [place] [facility] Ramona Pinon [id number] Ramona Pinon 02/07/2018 2 [facility] Ramona Pinon [id number] Ramona Pinon 02/07/2018 1 [place] [facility] Ramona Pinon [id number] Ramona Pinon Notes Date Note Type Note [...] been working with therapy. VANESSA HARDEN [address] [facility], [address], [place], [address], [facility] 01/17/2018 11:55:52 01/22/2018 text/html A 77 year old female being seen today for acute rounding visit. Pt has follow up with ortho this saturday to determine if she can move to weight bearing status. Otherwise she has no new health concerns at this time. LIGIA LEMUS [address] [facility], [address], [place], [address], [facility] 01/22/2018 15:31:01 01/27/2018 text/html A 77 year old female being seen for a acute rounding visit. She has been working with therapy and will have a home visit soon. She is toe touch at this time. She sees ortho in 5 weeks. Staff notes no concerns at this time. VANESSA HARDEN [address] [facility], [address], [place], [address], [facility] 01/27/2018 17:14:53 02/05/2018 text/html A 77 year [...] for loose stool often. LIGIA LEMUS [address] [facility], [address], [place], [address], [facility] 02/05/2018 14:25:49 02/07/2018 text/html A [...] disease and pulmonary hypertension. VANESSA HARDEN [address] [facility], [address], [place], [address], [facility] 02/07/2018 16:59:57 OBGyn Episode No OBEpisode recorded.
--- OUTSIDE RECORDS SUMMARY | 2024-09-03 14:24 | XMS_ITS | Clinical Summary ---
Author Organization [facility] Facility Address [address] [address] Care Team Providers Care Color Expert Name Role Phone Kiesha Macedo MD Primary Care Provider [phone] Social History Tobacco Use Types Packs/Day Years [...] - PCV) 03/06/2019 03/06/2018, 04/29/2017 Influenza Vaccine (Season Ended) 2025 02/02/2020, 04/22/2019, 03/06/2018, Additional history exists Hepatitis B Vaccine Aged Out No longe r eligible based on patient's age to complete this topic Insurance MEDICARE [facility] MEDICARE [facility] Care Teams Color Expert Relationship Specialty Start Date End Date Kiesha Macedo MD [address] [place], [place] PCP - General Internal Medicine 08/29/22
== END 2024-09-03 13:50 | disposition home or self-care (01) ==
LOC: HO.ACS 13:12
PROVIDERS: PCP Internal Medicine; Visit Provider Internal Medicine Medical Oncology
DX: Z79.01 Long term (current) use of anticoagulants (principal)

== ENCOUNTER → 2024-09-03 13:12 | Outpatient (BNVA) | payer MEDICARE, BC, SELFPAY | PROVIDERS: PCP Internal Medicine; Visit Provider Internal Medicine Medical Oncology | DX: I48.0 Paroxysmal atrial fibrillation (principal); Z51.81 Encounter for therapeutic drug level monitoring; Z79.01 Long term (current) use of anticoagulants | CPT/HCPCS: 85610; 99211 ==

== ENCOUNTER 2024-09-14 08:01 | Outpatient (AMB) | payer MEDICARE, BC, SELFPAY ==
--- OUTSIDE RECORDS SUMMARY | 2024-09-14 08:07 | XMS_ITS | Data Portability ---
Author Organization [facility], Main Office Address [address] [facility], [facility] [address] [place] [address] Care Team Providers Care Tool And Fixture Repairer Name Role Phone LANDON FREY 1ST FLOOR OTHER Assessment Encounter Date Assessment Date Assessment LastModified by Organization Details LastModified Time 01/17/2018 01/17/2018 01/13/18 WBC 4.3, Hgb 11.8, Hct 35.1, Na 141, K 3.6, BUN 12, Animal Keeper Head 0.62 [email or web address] Not available 01/17/2018 11:17:28 01/22/2018 01/22/201801/13: na 141, k 3.6, bun 12, creat 0.62, wbc 4.3, hgb 11.8, hct 35.1 glord Not available 01/22/2018 15:24:19 01/27/2018 01/27/2018 01/27/18 WBC 5.4, Hgb 13.7, Hct 41.3, Na 142, K 3.9, BUN 12, Animal Keeper Head 0.59 [email or web address] Not available 01/27/2018 17:03:47 02/05/2018 02/05/201802/03: na 143, k 3.7, bun 15, creat 0.66, wbc 4.2, hgb 11.5, hct 35.2 glord Not available 02/05/2018 14:14:26 02/07/2018 02/07/2018 02/03/18 WBC 4.2, Hgb 11.5, Hct 35.2, Na 143, K 3.7, BUN 15, Animal Keeper Head 0.66 [email or web address] Not available 02/07/2018 16:44:48 Plan [...] Address Organization Details Recorded Time Pulmonary hypertension 01718277 Active [address], [address], [place], [address], [employer] 8 16:34:20 Obstructive sleep apnea syndrome 43282476 Active [address], [address], [place], [address], [employer] 8 16:34:24 Mitral valve regurgitation 65076712 Active [address], [address], [place], [address], [employer] 8 16:34:38 Aortic valve regurgitation 99248639 Active [address], [address], [place], [address], [employer] 8 16:34:44 Fracture of shaft of femur 44438825 Active [address], [address], [place], [address], [employer] 8 16:35:57 Essential hypertension 83348551 Active [address], [address], [place], [address], [employer] 8 16:36:05 Chronic disease of respiratory system 18483923 Active [address], [address], [place], [address], [employer] 8 16:36:13 Gout 26767778 Active [address], [address], [place], [address], [employer] 8 16:44:07 Qmypo-hw-mfnml ic respiratory failure 69489034 Active 2017 Sho Houser MD [address] [facility], [address], [place], [address], [facility] [employer] 8 20:08:21 Fracture of shaft of femur 44198293 Active 2017 Sho Houser MD [address] [place] [address], [address], [place], [address], [facility] [employer] [facility] 8 20:11:04 Solitary nodule of lung 480391520 Active 2017 Sho Houser MD [address] [place] [address], [facility] [address], [place], [address], [facility] [employer] 8 20:17:21 Mixed hyperlipidemia 546785837 Active 2017 Sho Houser MD [address] [place] [address], [facility] [address], [place], [address], [facility] [employer] [facility] 8 20:19:54 Problem Notes None recorded. Medical Equipment None Reported. Allergies Allergen ID Allergen Name Allergen Category Reaction Reaction Severity Criticality Documentation Date Start Date Code Code System Note Provider Name and Address Organization Details Recorded Time 29506 acetamino phen / hydrocodo ne medicatio n Not available Not available Not available 12/18/2017 04757 2 RxNorm Not Available Not Available Not [...] 138 mm[Hg] 62 mm[Hg] VANESSA HARDEN [address] [facility], [facility] [address], [place], [address], [employer] 8 11:11:37 Date Recorded Body height Heart rate Respiratory rate Provider Name and Address Organization Details Last Updated DateTime 01/22/2018 163.07 cm 72 /min 16 /min LIGIA LEMUS [address] [facility], [facility] [address], [place], [address], [place] [employer] 01/22/2018 15:29:09 Date Recorded Body height Body temperature Heart rate Respiratory rate Oxygen saturation Oxygen saturation in Arterial blood by Pulse oximetry Systolic blood pressure Diastolic blood pressure Provider Name and Address Organization Details Last Updated DateTime 8 163.07 cm 97.2 [degF] 68 /min 18 /min 94 % 94 % 106 mm[Hg] 49 mm[Hg] JOSUE FERRERAVANESSA SCHULTZ [address] [facility], [facility] [address], [place], [address], [facility] [employer] 8 16:58:27 Date Recorded Body height Heart rate Respiratory rate Body temperature Provider Name and Address Organization Details Last Updated DateTime 02/05/2018 163.07 cm 70 /min 16 /min 97.1 [degF] LIGIA LEMUS [address] [facility], [facility] [address], [place], [address] , [employer] 02/05/2018 14:25:46 Date Recorded Body height Heart rate Respiratory rate Body temperature Oxygen saturation Oxygen saturation in Arterial blood by Pulse oximetry Systolic blood pressure Diastolic blood pressure Provider Name and Address Organization Details Last Updated DateTime 8 163.07 cm 61 /min 18 /min 98.1 [degF] 98 % 98 % 116 mm[Hg] 56 mm[Hg] JOSUEVANESSA DEVINE [address] [facility], [facility] [address], [place], [address], [employer] 8 16:42:44 Social History Question Answer Notes LastModified by Organizat ion Details LastModified Time Tobacco Smoking Status Unknown If Ever Smoked Not Available [facility] 03/29/2020 03:13:20 Do You Have An Advance Directive? Yes Full Code [id number] Information not available 03/29/2020 What Was The Date Of Your Most Recent Tobacco Screening? 02/07/2018 [id number] Information not available 03/29/2020 Sex: Unknown Functional Status None recorded. Mental Status None recorded. Family History Nothing Reported. Medical History No medical history recorded. Gynecological HistoryNo gynecological history recorded. Obstetrics History GPAL:G 0 P 0 0 0 0 Past Encounters Encounter ID Performer Location Encounter Start Date Encounter Closed Date Diagnosis/Indication Diagnosis SNOMED-CT Code Diagnosis ICD10 Code Diagnosis Note [id number] LIGIA FREY [address] [facility] [place] [address] 12/18/2017 16:36:21 12/23/2017 16:12:52 Pulmonary hypertension 02967028 I27.0 lasix 40 mg dailyfollo w up with cards in 1-2 weeksObtai n follow up chest xray in 1 week to see if pulm edema has resolvedco nt. 02 PRN to keep sats above 92% Fracture o f shaft of femur 36247988 S72.324D Tylenol 650 mg TID scheduledP ercocet PRN for severe painPT/OT eval and treatbrace on right knee at all times Essential hypertension 21556768 I10 Continue atenolol 50 mg dailylosar infante 100 mg dailyamlod ipine 5 mg dailynitro 0.4 sl prnmonitor bps daily Gout 93326548 M10.061 allopurino l 100 mg dailyasa 81 mg daily [id number] Sho Houser MD [address] [place] [address] 12/19/2017 17:49:22 12/24/2017 08:23:57 Pulmonary hypertension 57424845 I27.0 As above, also on lasix 40 mg qd with KCl 10 meq BID. Will f/u with cardio as planned, may need MVR, as this is thought part of the reason for her pulmonary HTN. Will repeat CXR next week to reassess pulmonary edema.Cont . 02 as above. Fracture o f shaft of femur 04162445 S72.324D Will need PT/OT for strengthen ing [...] times. F/U ortho as planned. Essential hypertension 29574425 I10 Good control on atenolol 50 mg qd, losartan 100 mg qd, amlodipine 5 mg qd and nitro 0.4 sl prnMonitor BP and labs. Gout 54802292 M10.061 Continue allopurino l 100 mg qd. Monitor for sxs. Solitary n odule of lung 693555990 R91.1 Will f/u with pulmonary for assessment . Acute-on-c hronic respiratory failure 34823972 J96.21 J96.12 On O2 at baseline, with acute worsening inpt. likely secondary to pulmonary HTN (see below). Continue O2 by NC, titrated to keep sats above between 90-94% so as not to induce hypercapni a. Will f/u with pulmonary and cardio. Obstructiv e sleep apnea syndrome 43300173 G47.33 Continue CPAP as usual. Mixed hyperlipidemia 267 612184 E78.2 Continue atorvastat in 80 mg qd and ASA 81 mg qd. Monitor labs as outpt. [id number] VANESSA HARDEN [address] [place] [address] 12/27/2017 17:27:17 01/02/2018 15:17:31 Chronic disease of respiratory system 26425916 J98.9 she has not needed her oxygen at this time but knows she can use it if neededshe is seeing pulmonolog y on saturday for a follow up Obstructiv e sleep apnea syndrome 94804390 G47.33 she feels her cpap is not working rightwill order oxygen 2 liters via nc at night for nowmonitor Fracture o f shaft of femur 88152330 S72.8X1S continues with lidoderm patches on right legsees ortho next weekawaiti ng decision about next stepcontin ues non weight bearing status [id number] Sal Esparza MD [facility] [address] [place] [address] 01/15/2018 10:09:17 01/28/2018 13:33:13 Fracture of shaft of femur 58311307 S72.391D inform ortho of eventxray at facility to reeval [id number] V[address]ESSA [address]ARDEN [address] [address] 01/17/2018 11:10:56 01/28/2018 13:53:07 Essential hypertension 51750523 I10 norvasc 5 mg qdatenolol 50 mg qdlasix 40 mg qdlosartan potassium 100 mg qdmonitor b/p and labs Chronic di sease of respiratory system 48890032 J98.9 she follows with pulmonolog yshe uses oxygen as neededmoni tor respirator y status Fracture o f shaft of femur 49898939 S72.8X1S continues with lidoderm patches on right leg non weight bearing status follows with orthofelt she hurt it worsex-ray was negative and said there was the healing fracturewa nts CT results from ortho but doesn't see them til 30 thmonitor [id number] LIGIA NAVARRETE SHANTE [address] [place], [place] [address] [address] 01/22/2018 15:15:11 01/28/2018 14:03:23 Essential hypertension 34843983 I10 norvasc 5 mg qdatenolol 50 mg qdlasix 40 mg qdlosartan potassium 100 mg qdmonitor b/p and labs Chronic di sease of respiratory system 34022568 J98.9 Follows with pulmonolog yCPAP at bedtime while sleeping she uses oxygen as neededmoni tor respirator y status Fracture o f shaft of femur 36796619 S72.8X1S continues with lidoderm patches on right leg non weight bearing status, toe touch only follow up with ortho this saturday to determine weight bearing statusmoni tor for pain controltyl enol 650 mg q 8 hours PRN [id number] VANESSA HARDEN [address] [place] [address] 01/27/2018 16:57:24 02/12/2018 08:38:08 Fracture of shaft of femur 81161672 S72.8X1S continues with lidoderm patches on right legfollows with orthotoe touch allowedhom e visit this weekcontin ues with therapy Essential hypertension 16328136 I10 norvasc 5 mg qdatenolol 50 mg qdlasix 40 mg qdlosartan potassium 100 mg qdmonitor b/p and labs Mixed hyperlipidemia 267 930224 E78.2 carries diagnosisn ot on medication monitor labs [id number] LIGIA LEMUS [place] [address] [place] [address] 02/05/2018 14:10:52 02/12/2018 11:56:12 Fracture of shaft of femur 12860709 S72.8X1S continues with lidoderm patches on right legfollows with ortho in 4 weekstoe touch allowed only at this timecontin ues with therapyHom e eval went well, question possible discharge by the end of this week D/C colace 100 mg daily due to loose stools Essential hypertension 52638350 I10 norvasc 5 mg qdatenolol 50 mg qdlasix 40 mg qdlosartan potassium 100 mg qdmonitor b/p and labs [id number] [place] [address] 02/07/2018 16:41:46 02/12/2018 12:03:29 Fracture of shaft of femur 60314710 S72.8X1S continues with lidoderm patches on right legfollows with orthotoe touch allowedtyl enol 650 mg q 8 hrspercoce t q 4 hrs prnfollow up with ortho Essential hypertension 28146330 I10 ASA 81 mgnorvasc 5 mg qdatenolol 50 mg qdlasix 40 mg qdpotassiu m 10 meq qdlosartan potassium 100 mg qdfollow up with PCP Mixed hyperlipidemia 267 582368 E78.2 atorvastat in 80 mg qd follow up with PCP Obstructiv e sleep apnea syndrome 67501653 G47.33 continue home CPAPfollow up with PCP Gout 09973382 M10.49 allopurino l 100 mg qdfollow up with PCP Chronic di sease of respiratory system 12455952 J98.9 she follows with pulmonolog yshe uses [...] Member ID Guarantor Name 01/17/2018 1 [place] [employer] Ramona Pinon [id number] Ramona Pinon 01/17/2018 2 [place] Ramona Pinon [id number] Ramona Pinon 01/22/2018 1 [place] [employer] Ramona Pinon [id number] Ramona Pinon 01/22/2018 2 [place] Ramona Pinon [id number] Ramona Pinon 01/27/2018 1 [place] [employer] Rmaona Pinon [id number] Ramona Pinon 01/27/2018 2 [place] Ramona Pinon [id number] Ramona Pinon 02/05/2018 1 MEDICARE B-[place]: [facility] Ramona Pinon [id number] Ramona Pinon 02/05/2018 2 [place] Ramona Pinon [id number] Ramona Pinon 02/07/2018 1 MEDICARE B-[place]: [facility] Ramona Pinon [id number] Ramona Pinon 02/07/2018 2 [facility]: [employer] [place] [employer] Ramona Pinon [id number] Ramona Pinon Notes Date Note Type Note [...] been working with therapy. VANESSA HARDEN [address] [facility], [address], [place], [address], [employer] 01/17/2018 11:55:52 01/22/2018 text/html A 77 year old female being seen today for acute rounding visit. Pt has follow up with ortho this saturday to determine if she can move to weight bearing status. Otherwise she has no new health concerns at this time. LIGIA LEMUS [address] [facility], [address], [place], [address], [employer] 01/22/2018 15:31:01 01/27/2018 text/html A 77 year old female being seen for a acute rounding visit. She has been working with therapy and will have a home visit soon. She is toe touch at this time. She sees ortho in 5 weeks. Staff notes no concerns at this time. VANESSA HARDEN [address] [facility], [address], [place], [address], [employer] 01/27/2018 17:14:53 02/05/2018 text/html A 77 year [...] for loose stool often. LIGIA LEMUS [address] [facility], [address], [place], [address], [facility] [employer] [facility] 02/05/2018 14:25:49 02/07/2018 text/html A 77 year [...] disease and pulmonary hypertension. VANESSA HARDEN [address] [facility], [address], [place], [address], [facility] [employer] [facility] 02/07/2018 16:59:57 OBGyn Episode No OBEpisode recorded.
--- OUTSIDE RECORDS SUMMARY | 2024-09-14 08:07 | XMS_ITS | Clinical Summary ---
Author Organization [facility] Facility Address [address] [address] Care Team Providers Care Motor Assembler Name Role Phone Kiesha Macedo MD Primary Care Provider Social History Tobacco Use Types Packs/Day Years Used Date Smoking Tobacco: Never Assessed Comments Unknown Sex and Gender Information Value Date Recorded Sex Assigned at Not on file Legal Sex Female 8:40 AM EDT Gender Identity Not on file Sexual Orientation Not on file Plan of Treatment Health Maintenance Due Date Last Done Comments Pneumococcal Vaccine: 50+ Years (2 of 2 - PCV) 03/06/2019 03/06/2018, 04/29/2017 Influenza Vaccine (Season Ended) 2025 02/02/2020, 04/22/2019, 03/06/2018, Additional history exists Hepatitis B Vaccine Aged Out No longe r eligible based on patient's age to complete this topic Insurance Medicare [facility] Medicare [facility] Care Teams Motor Assembler Relationship Specialty Start Date End Date Kiesha Macedo MD [address] [place], [place] PCP - General Internal Medicine 08/29/22
[2024-09-14 08:14] LABS: Prothrombin Time Whole Bld POC 14.6 sec (11.1-13.5); ~PT, ~INR - Anti Coag Clinic 1.2 (0.9-1.1)
--- NOTE | 2024-09-14 08:32 | MHC.OFFVISCO ---
Intake Intake Visit Reasons: Anticoagulation Allergies acetaminophen [From Vicodin] Allergy (Intermediate, Verified 09/14/24 08:07) per patient hydrocodone [From Vicodin] Allergy (Mild, Verified 09/14/24 08:07) CHEST PAIN Medication List - Last Reconciled 09/14/24 by Suzanne Soares, RN acetaminophen 650 mg PO Q8H PRN albuterol sulfate 90 mcg/actuation 2 puffs inhalation Q4-6H PRN amiodarone 200 mg PO DAILY ascorbate calcium (vitamin C) 500 mg PO DAILY aspirin (Noel Low Dose Aspirin) 81 mg PO DAILY atorvastatin 80 mg PO DAILY carvedilol 12.5 mg PO BID furosemide (Lasix) 40 mg PO DAILY ekcioygmsqgw-Hc-pipc-minerals 1 tab PO DAILY omeprazole 20 mg PO BID@0630,1630 potassium chloride ER 30 mEq (1.5 x 20 mEq) PO DAILY vitamin B complex 1 tab PO DAILY warfarin See Protocol 2.5 mg orally 2.5MG DAILY WHILE RECOVERING MAY NEED DOSE ADJUSTMENTS; zinc gluconate 50 mg PO DAILY Nursing Note To [facility] vis WC accomp by family member pt had cardiac cath on 09/10 with warfarin hold pre and post. Resumed warfarin on Monday 09/11( takes in am) INRs have been very labile secondary to Amiodarone, loss of appetite, and holds for procedure Medications and supplements reviewed No new changes in health, diet, medications, or supplements, Denies any signs and symptoms of bleeding, bruising, or clotting other than obvious bruising at Cardiac cath insertion site right wrist Bleeding, bruising, clotting discussed Nutritional guidance given INR 1.2 critical low Dose:already took 1.25 this am, will take another 1.25 when she gets home, take 2.5mg on Saturday and Saturday, will take 1.25mg on and recheck INR NO greens F/U INR: 3 days pt scheduled for pacemaker generator change and lead placement in October Patient verbalizes understanding of instructions given Attempt to call cardio with [facility] unable to report at this time due to lengthy hold- will try later 924 message left at [facility] regarding critical INR, recent hold for cardiac cath, labile INRs, dosing plan and follow up, request call back Anti-Coag Initial Assessment Social Hx Patient Tobacco Use Status: Former Tobacco user Tobacco use type: Cigarette alcohol intake: never Coding Level of Care Code Est Patient Level 2 Diagnoses Current use of anticoagulant therapy Z79.01 Time Spent (min) 30 Assessment & Plan Assessment & Plan (1) Current use of anticoagulant therapy: Code(s): Z79.01 - [facility] (current) use of 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
== END 2024-09-14 09:22 | disposition home or self-care (01) ==
LOC: HO.ACS 08:01
PROVIDERS: PCP Internal Medicine; Visit Provider Internal Medicine Medical Oncology
DX: Z79.01 Long term (current) use of anticoagulants (principal)

== ENCOUNTER → 2024-09-14 08:01 | Outpatient (BNVA) | payer MEDICARE, BC, SELFPAY | PROVIDERS: PCP Internal Medicine; Visit Provider Internal Medicine Medical Oncology | DX: I48.0 Paroxysmal atrial fibrillation (principal); Z51.81 Encounter for therapeutic drug level monitoring; Z79.01 Long term (current) use of anticoagulants | CPT/HCPCS: 85610; 99212 ==

== ENCOUNTER 2024-09-17 13:23 | Outpatient (AMB) | payer MEDICARE, BC, SELFPAY ==
[2024-09-17 13:39] LABS: Prothrombin Time Whole Bld POC 21.7 sec (11.1-13.5); ~PT, ~INR - Anti Coag Clinic 1.8 (0.9-1.1)
--- NOTE | 2024-09-17 13:56 | MHC.OFFVISCO ---
Intake Intake Visit Reasons: Anticoagulation Allergies acetaminophen [From Vicodin] Allergy (Intermediate, Verified 09/17/24 13:32) per patient hydrocodone [From Vicodin] Allergy (Mild, Verified 09/17/24 13:32) CHEST PAIN Medication List - Last Reconciled 09/17/24 by Yolis Mendez RN acetaminophen 650 mg PO Q8H PRN albuterol sulfate 90 mcg/actuation 2 puffs inhalation Q4-6H PRN amiodarone 200 mg PO DAILY ascorbate calcium (vitamin C) 500 mg PO DAILY aspirin (Noel Low Dose Aspirin) 81 mg PO DAILY atorvastatin 80 mg PO DAILY carvedilol 12.5 mg PO BID furosemide (Lasix) 40 mg PO DAILY cogblwaaexqp-Wa-mzru-minerals 1 tab PO DAILY omeprazole 20 mg PO BID@0630,1630 potassium chloride ER 30 mEq (1.5 x 20 mEq) PO DAILY vitamin B complex 1 tab PO DAILY warfarin See Protocol 2.5 mg orally 2.5MG DAILY WHILE RECOVERING MAY NEED DOSE ADJUSTMENTS; zinc gluconate 50 mg PO DAILY Nursing Note INR 1.8? out of therapeutic range Medications and supplements reviewed Patient status: S/P cardiac cath - no blockage - to have pacemaker replacement with new lead so both sides paced. her left ventricle wasnt working properly Medications or supplements: no changes Diet: decreased- enc to eat healthier diet Denies any signs and symptoms of bleeding or clotting, she has bruising on her arms from procedure access sights- will monitor and enc pt to observe them as well for fading. Bleeding, bruising, clotting discussed Nutritional guidance given: eat a mix of fruits and vegetables to help balance INR and that you enjoy- no greens today Dose: already had booster doses of 2.5mg x 4 days this week, finish the rest of this week 1.25mg then starting saturday 2.5m sun tue thur/ 1.25mg all other days F/U INR Date : 1 week ?? Patient and her Grandson Harley verbalize understanding of instructions given. Anti-Coag Initial Assessment Social Hx Patient Tobacco Use Status: Former Tobacco user Tobacco use type: Cigarette alcohol intake: never Coding Level of Care Code Est Patient Level 1 Diagnoses Current use of anticoagulant therapy Z79.01 Assessment & Plan Assessment & Plan (1) Current use of anticoagulant therapy: Code(s): Z79.01 - oil [employer] (current) use of 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
--- OUTSIDE RECORDS SUMMARY | 2024-09-17 16:22 | XMS_ITS | Data Portability ---
Author Organization [facility], Main Office Address [address] [facility], [facility] [address] [place] [address] Care Team Providers Care Harvesting Contractor Name Role Phone LANDON FREY 1ST FLOOR OTHER Assessment Encounter Date Assessment Date Assessment LastModified by Organization Details LastModified Time 01/17/2018 01/17/2018 01/13/18 WBC 4.3, Hgb 11.8, Hct 35.1, Na 141, K 3.6, BUN 12, Chief Technician X Ray 0.62 [email or web address] Not available 01/17/2018 11:17:28 01/22/2018 01/22/201801/13: na 141, k 3.6, bun 12, creat 0.62, wbc 4.3, hgb 11.8, hct 35.1 glord Not available 01/22/2018 15:24:19 01/27/2018 01/27/2018 01/27/18 WBC 5.4, Hgb 13.7, Hct 41.3, Na 142, K 3.9, BUN 12, Chief Technician X Ray 0.59 [email or web address] Not available 01/27/2018 17:03:47 02/05/2018 02/05/201802/03: na 143, k 3.7, bun 15, creat 0.66, wbc 4.2, hgb 11.5, hct 35.2 glord Not available 02/05/2018 14:14:26 02/07/2018 02/07/2018 02/03/18 WBC 4.2, Hgb 11.5, Hct 35.2, Na 143, K 3.7, BUN 15, Chief Technician X Ray 0.66 [email or web address] Not available 02/07/2018 16:44:48 Plan [...] Address Organization Details Recorded Time Pulmonary hypertension 48611624 Active [address], [address], [place], [address], [facility] 8 16:34:20 Obstructive sleep apnea syndrome 53184129 Active [address], [address], [place], [address], [facility] 8 16:34:24 Mitral valve regurgitation 94733761 Active [address], [address], [place], [address], [facility] 8 16:34:38 Aortic valve regurgitation 93489126 Active [address], [address], [place], [address], [facility] 8 16:34:44 Fracture of shaft of femur 75985521 Active [address], [address], [place], [address], [facility] 8 16:35:57 Essential hypertension 83965947 Active [address], [address], [place], [address], [facility] 8 16:36:05 Chronic disease of respiratory system 46150411 Active [address], [address], [place], [address], [facility] 8 16:36:13 Gout 11765223 Active [address], [address], [place], [address], [facility] 8 16:44:07 Kecsq-wr-epugz ic respiratory failure 62918517 Active 2017 Sho Houser MD [address] [facility], [address], [place], [address], [facility] [employer] 8 20:08:21 Fracture of shaft of femur 33207757 Active 2017 Sho Houser MD [address] [place] [address], [address], [place], [address], [facility] 8 20:11:04 Solitary nodule of lung 030136498 Active 2017 Sho Houser MD [address] [place] [address], [facility] [address], [place], [address], [facility] [employer] [facility] 8 20:17:21 Mixed hyperlipidemia 596763363 Active 2017 Sho Houser MD [address] [place] [address], [facility] [address], [place], [address], [facility] 8 20:19:54 Problem Notes None recorded. Medical Equipment None Reported. Allergies Allergen ID Allergen Name Allergen Category Reaction Reaction Severity Criticality Documentation Date Start Date Code Code System Note Provider Name and Address Organization Details Recorded Time 35495 acetamino phen / hydrocodo ne medicatio n Not available Not available Not available 12/18/2017 41120 2 RxNorm Not Available Not Available Not [...] 138 mm[Hg] 62 mm[Hg] VANESSA HARDEN [address] [facility], [facility] [address], [place], [address], [facility] 8 11:11:37 Date Recorded Body height Heart rate Respiratory rate Provider Name and Address Organization Details Last Updated DateTime 01/22/2018 163.07 cm 72 /min 16 /min LIGIA LEMUS [address] [facility], [facility] [address], [place], [address], [facility] [employer] 01/22/2018 15:29:09 Date Recorded Body height Body temperature Heart rate Respiratory rate Oxygen saturation Oxygen saturation in Arterial blood by Pulse oximetry Systolic blood pressure Diastolic blood pressure Provider Name and Address Organization Details Last Updated DateTime 8 163.07 cm 97.2 [degF] 68 /min 18 /min 94 % 94 % 106 mm[Hg] 49 mm[Hg] JOSUE FERRERAVANESSA SCHULTZ [address] [facility], [facility] [address], [place], [address], [facility] 8 16:58:27 Date Recorded Body height Heart rate Respiratory rate Body temperature Provider Name and Address Organization Details Last Updated DateTime 02/05/2018 163.07 cm 70 /min 16 /min 97.1 [degF] LIGIA LEMUS [address] [facility], [facility] [address], [place], [address] , [email or web address] [facility] 02/05/2018 14:25:46 Date Recorded Body height Heart rate Respiratory rate Body temperature Oxygen saturation Oxygen saturation in Arterial blood by Pulse oximetry Systolic blood pressure Diastolic blood pressure Provider Name and Address Organization Details Last Updated DateTime 8 163.07 cm 61 /min 18 /min 98.1 [degF] 98 % 98 % 116 mm[Hg] 56 mm[Hg] JOSUEVANESSA DEVINE [address] [facility], [facility] [address], [place], [address], [email or web address] 8 16:42:44 Social History Question Answer Notes LastModified by Organizat ion Details LastModified Time Tobacco Smoking Status Unknown If Ever Smoked Not Available [facility] 03/29/2020 03:13:20 Do You Have An Advance Directive? Yes Full Code [id number] Information not available 03/29/2020 What Was The Date Of Your Most Recent Tobacco Screening? 02/07/2018 [id number] Information not available 03/29/2020 Sex: Unknown Functional Status None recorded. Mental Status None recorded. Family History Nothing Reported. Medical History No medical history recorded. Gynecological HistoryNo gynecological history recorded. Obstetrics History GPAL:G 0 P 0 0 0 0 Past Encounters Encounter ID Performer Location Encounter Start Date Encounter Closed Date Diagnosis/Indication Diagnosis SNOMED-CT Code Diagnosis ICD10 Code Diagnosis Note [id number] LIGIA FREY [address] [facility] [place] [address] 12/18/2017 16:36:21 12/23/2017 16:12:52 Pulmonary hypertension 50102898 I27.0 lasix 40 mg dailyfollo w up with cards in 1-2 weeksObtai n follow up chest xray in 1 week to see if pulm edema has resolvedco nt. 02 PRN to keep sats above 92% Fracture o f shaft of femur 95207995 S72.324D Tylenol 650 mg TID scheduledP ercocet PRN for severe painPT/OT eval and treatbrace on right knee at all times Essential hypertension 25533743 I10 Continue atenolol 50 mg dailylosar infante 100 mg dailyamlod ipine 5 mg dailynitro 0.4 sl prnmonitor bps daily Gout 55294244 M10.061 allopurino l 100 mg dailyasa 81 mg daily [id number] Sho Houser MD [address] [place] [address] 12/19/2017 17:49:22 12/24/2017 08:23:57 Pulmonary hypertension 19285902 I27.0 As above, also on lasix 40 mg qd with KCl 10 meq BID. Will f/u with cardio as planned, may need MVR, as this is thought part of the reason for her pulmonary HTN. Will repeat CXR next week to reassess pulmonary edema.Cont . 02 as above. Fracture o f shaft of femur 47716366 S72.324D Will need PT/OT for strengthen ing [...] times. F/U ortho as planned. Essential hypertension 60348720 I10 Good control on atenolol 50 mg qd, losartan 100 mg qd, amlodipine 5 mg qd and nitro 0.4 sl prnMonitor BP and labs. Gout 81382784 M10.061 Continue allopurino l 100 mg qd. Monitor for sxs. Solitary n odule of lung 387840156 R91.1 Will f/u with pulmonary for assessment . Acute-on-c hronic respiratory failure 98873322 J96.21 J96.12 On O2 at baseline, with acute worsening inpt. likely secondary to pulmonary HTN (see below). Continue O2 by NC, titrated to keep sats above between 90-94% so as not to induce hypercapni a. Will f/u with pulmonary and cardio. Obstructiv e sleep apnea syndrome 13755504 G47.33 Continue CPAP as usual. Mixed hyperlipidemia 267 061662 E78.2 Continue atorvastat in 80 mg qd and ASA 81 mg qd. Monitor labs as outpt. [id number] VANESSA HARDEN [address] [place] [address] 12/27/2017 17:27:17 01/02/2018 15:17:31 Chronic disease of respiratory system 17766246 J98.9 she has not needed her oxygen at this time but knows she can use it if neededshe is seeing pulmonolog y on saturday for a follow up Obstructiv e sleep apnea syndrome 91704361 G47.33 she feels her cpap is not working rightwill order oxygen 2 liters via nc at night for nowmonitor Fracture o f shaft of femur 70479234 S72.8X1S continues with lidoderm patches on right legsees ortho next weekawaiti ng decision about next stepcontin ues non weight bearing status [id number] Sal Esparza MD [facility] [address] [place] [address] 01/15/2018 10:09:17 01/28/2018 13:33:13 Fracture of shaft of femur 20665387 S72.391D inform ortho of eventxray at facility to reeval [id number]SA [address]ARDEN [address] [address] 01/17/2018 11:10:56 01/28/2018 13:53:07 Essential hypertension 01581273 I10 norvasc 5 mg qdatenolol 50 mg qdlasix 40 mg qdlosartan potassium 100 mg qdmonitor b/p and labs Chronic di sease of respiratory system 94860017 J98.9 she follows with pulmonolog yshe uses oxygen as neededmoni tor respirator y status Fracture o f shaft of femur 38792547 S72.8X1S continues with lidoderm patches on right leg non weight bearing status follows with orthofelt she hurt it worsex-ray was negative and said there was the healing fracturewa nts CT results from ortho but doesn't see them til 30 thmonitor [id number] LIGIA NAVARRETE SHANTE [address] [place], [place] [address] [address] 01/22/2018 15:15:11 01/28/2018 14:03:23 Essential hypertension 64752085 I10 norvasc 5 mg qdatenolol 50 mg qdlasix 40 mg qdlosartan potassium 100 mg qdmonitor b/p and labs Chronic di sease of respiratory system 94113894 J98.9 Follows with pulmonolog yCPAP at bedtime while sleeping she uses oxygen as neededmoni tor respirator y status Fracture o f shaft of femur 59073408 S72.8X1S continues with lidoderm patches on right leg non weight bearing status, toe touch only follow up with ortho this saturday to determine weight bearing statusmoni tor for pain controltyl enol 650 mg q 8 hours PRN [id number] VANESSA HARDEN [address] [place] [address] 01/27/2018 16:57:24 02/12/2018 08:38:08 Fracture of shaft of femur 77301716 S72.8X1S continues with lidoderm patches on right legfollows with orthotoe touch allowedhom e visit this weekcontin ues with therapy Essential hypertension 56922016 I10 norvasc 5 mg qdatenolol 50 mg qdlasix 40 mg qdlosartan potassium 100 mg qdmonitor b/p and labs Mixed hyperlipidemia 267 306930 E78.2 carries diagnosisn ot on medication monitor labs [id number] LIGIA LEMUS [place] [address] [place] [address] 02/05/2018 14:10:52 02/12/2018 11:56:12 Fracture of shaft of femur 48758372 S72.8X1S continues with lidoderm patches on right legfollows with ortho in 4 weekstoe touch allowed only at this timecontin ues with therapyHom e eval went well, question possible discharge by the end of this week D/C colace 100 mg daily due to loose stools Essential hypertension 34395517 I10 norvasc 5 mg qdatenolol 50 mg qdlasix 40 mg qdlosartan potassium 100 mg qdmonitor b/p and labs [id number] VANESSA HARDEN [address] [place] [address] [place] [address] 02/07/2018 16:41:46 02/12/2018 12:03:29 Fracture of shaft of femur 09177367 S72.8X1S continues with lidoderm patches on right legfollows with orthotoe touch allowedtyl enol 650 mg q 8 hrspercoce t q 4 hrs prnfollow up with ortho Essential hypertension 70279615 I10 ASA 81 mgnorvasc 5 mg qdatenolol 50 mg qdlasix 40 mg qdpotassiu m 10 meq qdlosartan potassium 100 mg qdfollow up with PCP Mixed hyperlipidemia 267 045475 E78.2 atorvastat in 80 mg qd follow up with PCP Obstructiv e sleep apnea syndrome 82916750 G47.33 continue home CPAPfollow up with PCP Gout 54521472 M10.49 allopurino l 100 mg qdfollow up with PCP Chronic di sease of respiratory system 92267829 J98.9 she follows with pulmonolog yshe uses [...] 2 [place] Ramona Pinon [id number] Ramona Pinon 01/17/2018 1 [place] Ramona Pinon [id number] Ramona Pinon 01/22/2018 2 [place] Ramona Pinon [id number] Ramona Pinon 01/22/2018 1 [place] [place] Ramona Pinon [id number] Ramona Pinon 01/27/2018 2 [place] Ramona Pinon [id number] Ramona Pinon 01/27/2018 1 [place] [place] Ramona Pinon [id number] Ramona Pinon 02/05/2018 2 [place] Ramona Pinon [id number] Ramona Pinon 02/05/2018 1 [place] [facility] Ramona Pinon [id number] Ramona Pinon 02/07/2018 2 [facility] Ramona Pinon [id number] Ramona Pinon 02/07/2018 1 [place] [facility] Ramona Pinon [id number] Ramona Pinon Notes Date Note Type Note [...] been working with therapy. VANESSA HARDEN [address] [facility], [address], [place], [address], [facility] 01/17/2018 11:55:52 01/22/2018 text/html A 77 year old female being seen today for acute rounding visit. Pt has follow up with ortho this saturday to determine if she can move to weight bearing status. Otherwise she has no new health concerns at this time. LIGIA LEMUS [address] [facility], [address], [place], [address], [facility] 01/22/2018 15:31:01 01/27/2018 text/html A 77 year old female being seen for a acute rounding visit. She has been working with therapy and will have a home visit soon. She is toe touch at this time. She sees ortho in 5 weeks. Staff notes no concerns at this time. VANESSA HARDEN [address] [facility], [address], [place], [address], [facility] 01/27/2018 17:14:53 02/05/2018 text/html A 77 year [...] for loose stool often. LIGIA LEMUS [address] [facility], [address], [place], [address], [facility] 02/05/2018 14:25:49 02/07/2018 text/html A [...] disease and pulmonary hypertension. VANESSA HARDEN [address] [facility], [address], [place], [address], [facility] 02/07/2018 16:59:57 OBGyn Episode No OBEpisode recorded.
--- OUTSIDE RECORDS SUMMARY | 2024-09-17 16:22 | XMS_ITS | Clinical Summary ---
Author Organization [facility] Facility Address [address] [address] Care Team Providers Care Reclamation Furnace Operator Name Role Phone Kiesha Macedo MD Primary Care Provider [phone] Social History Tobacco Use Types Packs/Day Years [...] Medicare [facility] Care Teams Reclamation Furnace Operator Relationship Specialty Start Date End Date Kiesha Macedo MD [address] [place], [place] PCP - General Internal Medicine 08/29/22
== END 2024-09-17 14:11 | disposition home or self-care (01) ==
LOC: HO.ACS 13:23
PROVIDERS: PCP Internal Medicine; Visit Provider Internal Medicine Medical Oncology
DX: Z79.01 Long term (current) use of anticoagulants (principal)

== ENCOUNTER → 2024-09-17 13:23 | Outpatient (BNVA) | payer MEDICARE, BC, SELFPAY | PROVIDERS: PCP Internal Medicine; Visit Provider Internal Medicine Medical Oncology | DX: I48.0 Paroxysmal atrial fibrillation (principal); Z79.01 Long term (current) use of anticoagulants; Z51.81 Encounter for therapeutic drug level monitoring | CPT/HCPCS: 85610; 99211 ==

== ENCOUNTER 2024-09-24 08:09 | Outpatient (AMB) | payer MEDICARE, BC, SELFPAY ==
[2024-09-24 08:18] LABS: Prothrombin Time Whole Bld POC 24.3 sec (11.1-13.5)
--- OUTSIDE RECORDS SUMMARY | 2024-09-24 08:21 | XMS_ITS | Data Portability ---
Author Organization [facility], Main Office Address [address] [facility], [facility] [address] [place] [address] Care Team Providers Care Email Deployment Specialist Name Role Phone LANDON FREY 1ST FLOOR OTHER Assessment Encounter Date Assessment Date Assessment LastModified by Organization Details LastModified Time 01/17/2018 01/17/2018 01/13/18 WBC 4.3, Hgb 11.8, Hct 35.1, Na 141, K 3.6, BUN 12, Kindergarten Aide 0.62 [email or web address] Not available 01/17/2018 11:17:28 01/22/2018 01/22/201801/13: na 141, k 3.6, bun 12, creat 0.62, wbc 4.3, hgb 11.8, hct 35.1 glord Not available 01/22/2018 15:24:19 01/27/2018 01/27/2018 01/27/18 WBC 5.4, Hgb 13.7, Hct 41.3, Na 142, K 3.9, BUN 12, Kindergarten Aide 0.59 [email or web address] Not available 01/27/2018 17:03:47 02/05/2018 02/05/201802/03: na 143, k 3.7, bun 15, creat 0.66, wbc 4.2, hgb 11.5, hct 35.2 glord Not available 02/05/2018 14:14:26 02/07/2018 02/07/2018 02/03/18 WBC 4.2, Hgb 11.5, Hct 35.2, Na 143, K 3.7, BUN 15, Kindergarten Aide 0.66 [email or web address] Not available 02/07/2018 16:44:48 Plan [...] Address Organization Details Recorded Time Pulmonary hypertension 53062804 Active [address], [address], [place], [address], [employer] 8 16:34:20 Obstructive sleep apnea syndrome 84433591 Active [address], [address], [place], [address], [employer] 8 16:34:24 Mitral valve regurgitation 29324972 Active [address], [address], [place], [address], [employer] 8 16:34:38 Aortic valve regurgitation 66056436 Active [address], [address], [place], [address], [employer] 8 16:34:44 Fracture of shaft of femur 57836664 Active [address], [address], [place], [address], [employer] 8 16:35:57 Essential hypertension 14650504 Active [address], [address], [place], [address], [employer] 8 16:36:05 Chronic disease of respiratory system 93299517 Active [address], [address], [place], [address], [employer] 8 16:36:13 Gout 78981476 Active [address], [address], [place], [address], [employer] 8 16:44:07 Bmldn-bn-rxvzo ic respiratory failure 83520037 Active 2017 Sho Houser MD [address] [facility], [address], [place], [address], [facility] [employer] 8 20:08:21 Fracture of shaft of femur 67708381 Active 2017 Sho Houser MD [address] [place] [address], [address], [place], [address], [facility] [employer] [facility] 8 20:11:04 Solitary nodule of lung 703963284 Active 2017 Sho Houser MD [address] [place] [address], [facility] [address], [place], [address], [facility] [employer] 8 20:17:21 Mixed hyperlipidemia 845036032 Active 2017 Sho Houser MD [address] [place] [address], [facility] [address], [place], [address], [facility] [employer] [facility] 8 20:19:54 Problem Notes None recorded. Medical Equipment None Reported. Allergies Allergen ID Allergen Name Allergen Category Reaction Reaction Severity Criticality Documentation Date Start Date Code Code System Note Provider Name and Address Organization Details Recorded Time 64901 acetamino phen / hydrocodo ne medicatio n Not available Not available Not available 12/18/2017 65626 2 RxNorm Not Available Not Available Not [...] 138 mm[Hg] 62 mm[Hg] VANESSA HARDEN [address] [facility], [facility] [address], [place], [address], [employer] 8 11:11:37 Date Recorded Body height Heart rate Respiratory rate Provider Name and Address Organization Details Last Updated DateTime 01/22/2018 163.07 cm 72 /min 16 /min LIGIA LEMUS [address] [facility], [facility] [address], [place], [address], [place] 01/22/2018 15:29:09 Date Recorded Body height Body temperature Heart rate Respiratory rate Oxygen saturation Oxygen saturation in Arterial blood by Pulse oximetry Systolic blood pressure Diastolic blood pressure Provider Name and Address Organization Details Last Updated DateTime 8 163.07 cm 97.2 [degF] 68 /min 18 /min 94 % 94 % 106 mm[Hg] 49 mm[Hg] JOSUE FERRERAVANESSA SCHULTZ [address] [facility], [facility] [address], [place], [address], [facility] [employer] 8 16:58:27 Date Recorded Body height Heart rate Respiratory rate Body temperature Provider Name and Address Organization Details Last Updated DateTime 02/05/2018 163.07 cm 70 /min 16 /min 97.1 [degF] LIGIA LEMUS [address] [facility], [facility] [address], [place], [address] , 2,10E+07 [employer] 02/05/2018 14:25:46 Date Recorded Body height Heart rate Respiratory rate Body temperature Oxygen saturation Oxygen saturation in Arterial blood by Pulse oximetry Systolic blood pressure Diastolic blood pressure Provider Name and Address Organization Details Last Updated DateTime 8 163.07 cm 61 /min 18 /min 98.1 [degF] 98 % 98 % 116 mm[Hg] 56 mm[Hg] JOSUEVANESSA DEVINE [address] [facility], [facility] [address], [place], [address], 2,[employer]E+[employer] 8 16:42:44 Social History Question Answer Notes LastModified by Organizat ion Details LastModified Time Tobacco Smoking Status Unknown If Ever Smoked Not Available [facility] 03/29/2020 03:13:20 Do You Have An Advance Directive? Yes Full Code [id number] Information not available 03/29/2020 What Was The Date Of Your Most Recent Tobacco Screening? 02/07/2018 [id number] Information not available 03/29/2020 Sex: Unknown Functional Status None recorded. Mental Status None recorded. Family History Nothing Reported. Medical History No medical history recorded. Gynecological HistoryNo gynecological history recorded. Obstetrics History GPAL:G 0 P 0 0 0 0 Past Encounters Encounter ID Performer Location Encounter Start Date Encounter Closed Date Diagnosis/Indication Diagnosis SNOMED-CT Code Diagnosis ICD10 Code Diagnosis Note [id number] LIGIA FREY [address] [facility] [place] [address] 12/18/2017 16:36:21 12/23/2017 16:12:52 Pulmonary hypertension 41076358 I27.0 lasix 40 mg dailyfollo w up with cards in 1-2 weeksObtai n follow up chest xray in 1 week to see if pulm edema has resolvedco nt. 02 PRN to keep sats above 92% Fracture o f shaft of femur 05457207 S72.324D Tylenol 650 mg TID scheduledP ercocet PRN for severe painPT/OT eval and treatbrace on right knee at all times Essential hypertension 70203999 I10 Continue atenolol 50 mg dailylosar infante 100 mg dailyamlod ipine 5 mg dailynitro 0.4 sl prnmonitor bps daily Gout 11014217 M10.061 allopurino l 100 mg dailyasa 81 mg daily [id number] Sho Houser MD [address] [place] [address] 12/19/2017 17:49:22 12/24/2017 08:23:57 Pulmonary hypertension 32003053 I27.0 As above, also on lasix 40 mg qd with KCl 10 meq BID. Will f/u with cardio as planned, may need MVR, as this is thought part of the reason for her pulmonary HTN. Will repeat CXR next week to reassess pulmonary edema.Cont . 02 as above. Fracture o f shaft of femur 96979837 S72.324D Will need PT/OT for strengthen ing [...] times. F/U ortho as planned. Essential hypertension 49586228 I10 Good control on atenolol 50 mg qd, losartan 100 mg qd, amlodipine 5 mg qd and nitro 0.4 sl prnMonitor BP and labs. Gout 48688424 M10.061 Continue allopurino l 100 mg qd. Monitor for sxs. Solitary n odule of lung 077972178 R91.1 Will f/u with pulmonary for assessment . Acute-on-c hronic respiratory failure 70302145 J96.21 J96.12 On O2 at baseline, with acute worsening inpt. likely secondary to pulmonary HTN (see below). Continue O2 by NC, titrated to keep sats above between 90-94% so as not to induce hypercapni a. Will f/u with pulmonary and cardio. Obstructiv e sleep apnea syndrome 43655171 G47.33 Continue CPAP as usual. Mixed hyperlipidemia 267 884619 E78.2 Continue atorvastat in 80 mg qd and ASA 81 mg qd. Monitor labs as outpt. [id number] VANESSA HARDEN [address] [place] [address] 12/27/2017 17:27:17 01/02/2018 15:17:31 Chronic disease of respiratory system 07423126 J98.9 she has not needed her oxygen at this time but knows she can use it if neededshe is seeing pulmonolog y on saturday for a follow up Obstructiv e sleep apnea syndrome 57709090 G47.33 she feels her cpap is not working rightwill order oxygen 2 liters via nc at night for nowmonitor Fracture o f shaft of femur 77854841 S72.8X1S continues with lidoderm patches on right legsees ortho next weekawaiti ng decision about next stepcontin ues non weight bearing status [id number] Sla Esparza MD [facility] [address] [place] [address] 01/15/2018 10:09:17 01/28/2018 13:33:13 Fracture of shaft of femur 75608009 S72.391D inform ortho of eventxray at facility to reeval [id number] VANESSA HARDEN [address] [address] 01/17/2018 11:10:56 01/28/2018 13:53:07 Essential hypertension 35965746 I10 norvasc 5 mg qdatenolol 50 mg qdlasix 40 mg qdlosartan potassium 100 mg qdmonitor b/p and labs Chronic di sease of respiratory system 35117704 J98.9 she follows with pulmonolog yshe uses oxygen as neededmoni tor respirator y status Fracture o f shaft of femur 04711451 S72.8X1S continues with lidoderm patches on right leg non weight bearing status follows with orthofelt she hurt it worsex-ray was negative and said there was the healing fracturewa nts CT results from ortho but doesn't see them til 30 thmonitor [id number] LIGIA NAVARRETE SHANTE [address] [place], [place] [address] [address] 01/22/2018 15:15:11 01/28/2018 14:03:23 Essential hypertension 44675047 I10 norvasc 5 mg qdatenolol 50 mg qdlasix 40 mg qdlosartan potassium 100 mg qdmonitor b/p and labs Chronic di sease of respiratory system 41724042 J98.9 Follows with pulmonolog yCPAP at bedtime while sleeping she uses oxygen as neededmoni tor respirator y status Fracture o f shaft of femur 15144249 S72.8X1S continues with lidoderm patches on right leg non weight bearing status, toe touch only follow up with ortho this saturday to determine weight bearing statusmoni tor for pain controltyl enol 650 mg q 8 hours PRN [id number] VANESSA HARDEN [address] [place] [address] 01/27/2018 16:57:24 02/12/2018 08:38:08 Fracture of shaft of femur 77742449 S72.8X1S continues with lidoderm patches on right legfollows with orthotoe touch allowedhom e visit this weekcontin ues with therapy Essential hypertension 88450440 I10 norvasc 5 mg qdatenolol 50 mg qdlasix 40 mg qdlosartan potassium 100 mg qdmonitor b/p and labs Mixed hyperlipidemia 267 669183 E78.2 carries diagnosisn ot on medication monitor labs [id number] LIGIA LEMUS [place] [address] [place] [address] 02/05/2018 14:10:52 02/12/2018 11:56:12 Fracture of shaft of femur 17734636 S72.8X1S continues with lidoderm patches on right legfollows with ortho in 4 weekstoe touch allowed only at this timecontin ues with therapyHom e eval went well, question possible discharge by the end of this week D/C colace 100 mg daily due to loose stools Essential hypertension 02152784 I10 norvasc 5 mg qdatenolol 50 mg qdlasix 40 mg qdlosartan potassium 100 mg qdmonitor b/p and labs [id number] VANESSA HARDEN [address] [place] [address] [place] [address] 02/07/2018 16:41:46 02/12/2018 12:03:29 Fracture of shaft of femur 94007017 S72.8X1S continues with lidoderm patches on right legfollows with orthotoe touch allowedtyl enol 650 mg q 8 hrspercoce t q 4 hrs prnfollow up with ortho Essential hypertension 16243408 I10 ASA 81 mgnorvasc 5 mg qdatenolol 50 mg qdlasix 40 mg qdpotassiu m 10 meq qdlosartan potassium 100 mg qdfollow up with PCP Mixed hyperlipidemia 267 420168 E78.2 atorvastat in 80 mg qd follow up with PCP Obstructiv e sleep apnea syndrome 65076705 G47.33 continue home CPAPfollow up with PCP Gout 37721511 M10.49 allopurino l 100 mg qdfollow up with PCP Chronic di sease of respiratory system 62162223 J98.9 she follows with pulmonolog yshe uses [...] 2 [place] [employer] [place] [employer] Ramona Pinon [id number] Ramona Pinon 01/17/2018 1 [place] [employer] Ramona Pinon [id number] Ramona Pinon 01/22/2018 2 [place] Ramona Pinon [id number] Ramona Pinon 01/22/2018 1 [place] [place] Ramona Pinon [id number] Ramona Pinon 01/27/2018 2 [place] Ramona Pinon [id number] Ramona Pinon 01/27/2018 1 [place] [place] Ramona Pinon [id number] Ramona Pinon 02/05/2018 2 [place] Ramona Pinon [id number] Ramona Pinon 02/05/2018 1 [place] [facility] Ramona Pinon [id number] Ramona Pinon 02/07/2018 2 [facility] Ramona Pinon [id number] Ramona Pinon 02/07/2018 1 [place] [facility] Ramona Pinon [id number] Ramona Pinon Notes Date Note Type Note [...] been working with therapy. VANESSA HARDEN [address] [facility], [address], [place], [address], [employer] 01/17/2018 11:55:52 01/22/2018 text/html A 77 year old female being seen today for acute rounding visit. Pt has follow up with ortho this saturday to determine if she can move to weight bearing status. Otherwise she has no new health concerns at this time. LIGIA LEMUS [address] [facility], [address], [place], [address], [employer] 01/22/2018 15:31:01 01/27/2018 text/html A 77 year old female being seen for a acute rounding visit. She has been working with therapy and will have a home visit soon. She is toe touch at this time. She sees ortho in 5 weeks. Staff notes no concerns at this time. VANESSA HARDEN [address] [facility], [address], [place], [address], [employer] 01/27/2018 17:14:53 02/05/2018 text/html A 77 year [...] for loose stool often. LIGIA LEMUS [address] [facility], [address], [place], [address], [facility] [employer] [facility] 02/05/2018 14:25:49 02/07/2018 text/html A [...] disease and pulmonary hypertension. VANESSA HARDEN [address] [facility], [address], [place], [address], [facility] [employer] [facility] 02/07/2018 16:59:57 OBGyn Episode No OBEpisode recorded.
--- OUTSIDE RECORDS SUMMARY | 2024-09-24 08:21 | XMS_ITS | Clinical Summary ---
Author Organization [facility] Facility Address [address] [address] Care Team Providers Care Teletypesetter Monitor Name Role Phone Kiesha Macedo MD Primary Care Provider [phone] Social History Tobacco Use Types Packs/Day Years [...] age to complete this topic Insurance Medicare [facility] Medicare [facility] Care Teams Teletypesetter Monitor Relationship Specialty Start Date End Date Kiesha Macedo MD [address] [place], [place] PCP - General Internal Medicine 08/29/22
--- NOTE | 2024-09-24 08:27 | MHC.OFFVISCO ---
Intake Intake Visit Reasons: Anticoagulation Allergies acetaminophen [From Vicodin] Allergy (Intermediate, Verified 09/24/24 08:10) per patient hydrocodone [From Vicodin] Allergy (Mild, Verified 09/24/24 08:10) CHEST PAIN Medication List - Last Reconciled 09/24/24 by Yolis Mendez RN acetaminophen 650 mg PO Q8H PRN albuterol sulfate 90 mcg/actuation 2 puffs inhalation Q4-6H PRN amiodarone 200 mg PO DAILY ascorbate calcium (vitamin C) 500 mg PO DAILY aspirin (Noel Low Dose Aspirin) 81 mg PO DAILY atorvastatin 80 mg PO DAILY carvedilol 12.5 mg PO BID furosemide (Lasix) 40 mg PO DAILY asmljztqqptw-Ka-urnq-minerals 1 tab PO DAILY omeprazole 20 mg PO BID@0630,1630 potassium chloride ER 30 mEq (1.5 x 20 mEq) PO DAILY vitamin B complex 1 tab PO DAILY warfarin See Protocol 2.5 mg orally 2.5MG DAILY WHILE RECOVERING MAY NEED DOSE ADJUSTMENTS; zinc gluconate 50 mg PO DAILY Nursing Note INR: 2.0 in therapeutic range Medications and supplements reviewed preparing for pacemaker and lead replacement 10/07/2024- will be holding warfarin x 2 days INR s have been trending high prior cath(possible r/t to diet and amiodarone)- warfarin dose was decreased. Appet Denies any signs and symptoms of bleeding or bruising or clotting. Bleeding, bruising, clotting discussed Nutritional guidance given - eat protein fruits and vegetabls Dose: 2.5mg x 3 days/ 1.25mg x 4 days F/U INR: 10/02/2024 Patient verbalizes understanding of instructions given Anti-Coag Initial Assessment Social Hx Patient Tobacco Use Status: Former Tobacco user Tobacco use type: Cigarette alcohol intake: never Coding Level of Care Code Est Patient Level 1 Diagnoses Current use of anticoagulant therapy Z79.01 Results AMB INR Fingerstick AMB INR Fingerstick 2.0 Last Edit by Yolis Mendez RN on 09/24/24 08:23 MANUAL ENTRY Assessment & Plan Assessment & Plan (1) Current use of anticoagulant therapy: Code(s): Z79.01 - correction (current) use of 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
== END 2024-09-24 08:31 | disposition home or self-care (01) ==
LOC: HO.ACS 08:09
PROVIDERS: PCP Internal Medicine; Visit Provider Internal Medicine Medical Oncology
DX: Z79.01 Long term (current) use of anticoagulants (principal)

== ENCOUNTER → 2024-09-24 08:09 | Outpatient (BNVA) | payer MEDICARE, BC, SELFPAY | PROVIDERS: PCP Internal Medicine; Visit Provider Internal Medicine Medical Oncology | DX: I48.0 Paroxysmal atrial fibrillation (principal); Z79.01 Long term (current) use of anticoagulants; Z51.81 Encounter for therapeutic drug level monitoring | CPT/HCPCS: 85610; 99211 ==

== ENCOUNTER 2024-10-02 08:59 | Outpatient (AMB) | payer MEDICARE, BC, SELFPAY ==
[2024-10-02 09:08] LABS: Prothrombin Time Whole Bld POC 30.2 sec (11.1-13.5); ~PT, ~INR - Anti Coag Clinic 2.5 (0.9-1.1)
--- NOTE | 2024-10-02 09:25 | MHC.OFFVISCO ---
Intake Intake Visit Reasons: Anticoagulation Allergies acetaminophen [From Vicodin] Allergy (Intermediate, Verified 10/02/24 09:00) per patient hydrocodone [From Vicodin] Allergy (Mild, Verified 10/02/24 09:00) CHEST PAIN Medication List - Last Reconciled 10/02/24 by Yolis Mendez RN acetaminophen 650 mg PO Q8H PRN albuterol sulfate 90 mcg/actuation 2 puffs inhalation Q4-6H PRN amiodarone 200 mg PO DAILY ascorbate calcium (vitamin C) 500 mg PO DAILY aspirin (Noel Low Dose Aspirin) 81 mg PO DAILY atorvastatin 80 mg PO DAILY carvedilol 12.5 mg PO BID furosemide (Lasix) 40 mg PO DAILY ipratropium bromide 17 mcg/actuation (Atrovent HFA) inhalation ngsjdjykxoxc-Bh-zrcr-minerals 1 tab PO DAILY omeprazole 20 mg PO BID@0630,1630 potassium chloride ER 30 mEq (1.5 x 20 mEq) PO DAILY vitamin B complex 1 tab PO DAILY warfarin See Protocol 2.5 mg orally 2.5MG DAILY WHILE RECOVERING MAY NEED DOSE ADJUSTMENTS; zinc gluconate 50 mg PO DAILY Nursing Note INR: 2.5 in therapeutic range Medications and supplements reviewed 10/07/2024 to have pacemaker and lead replacement with 2 day hold Denies any signs and symptoms of bleeding or bruising or clotting. Bleeding, bruising, clotting discussed Nutritional guidance given - eat greens and protein Dose: keep same dose 2.5mg x3 days/ 1.25mg x 4 days F/U INR: 10/06/2024 if required by cardiology 10/13/2024 Patient verbalizes understanding of instructions given Anti-Coag Initial Assessment Social Hx Patient Tobacco Use Status: Former Tobacco user Tobacco use type: Cigarette alcohol intake: never Coding Level of Care Code Est Patient Level 1 Diagnoses Current use of anticoagulant therapy Z79.01 Results AMB INR Fingerstick AMB INR Fingerstick 2.5 Last Edit by Yolis Mendez RN on 10/02/24 09:09 MANUAL ENTRY Assessment & Plan Assessment & Plan (1) Current use of anticoagulant therapy: Code(s): Z79.01 - 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
--- OUTSIDE RECORDS SUMMARY | 2024-10-02 09:28 | XMS_ITS | Data Portability ---
Author Organization [facility], Main Office Address [address] [facility], [facility] [address] [place] [address] Care Team Providers Care Superintendent Terminal Name Role Phone LANDON FREY 1ST FLOOR OTHER [phone] Assessment Encounter Date Assessment Date Assessment LastModified by Organization Details LastModified Time 01/17/2018 01/17/2018 01/13/18 WBC 4.3, Hgb 11.8, Hct 35.1, Na 141, K 3.6, BUN 12, Leather Etcher 0.62 [email or web address] Not available 01/17/2018 11:17:28 01/22/2018 01/22/201801/13: na 141, k 3.6, bun 12, creat 0.62, wbc 4.3, hgb 11.8, hct 35.1 glord Not available 01/22/2018 15:24:19 01/27/2018 01/27/2018 01/27/18 WBC 5.4, Hgb 13.7, Hct 41.3, Na 142, K 3.9, BUN 12, Leather Etcher 0.59 [email or web address] Not available 01/27/2018 17:03:47 02/05/2018 02/05/201802/03: na 143, k 3.7, bun 15, creat 0.66, wbc 4.2, hgb 11.5, hct 35.2 glord Not available 02/05/2018 14:14:26 02/07/2018 02/07/2018 02/03/18 WBC 4.2, Hgb 11.5, Hct 35.2, Na 143, K 3.7, BUN 15, Leather Etcher 0.66 [email or web address] Not available 02/07/2018 16:44:48 Plan [...] Address Organization Details Recorded Time Pulmonary hypertension 80268347 Active [address], [address], [place], [address], [employer] 16:34:20 Obstructive sleep apnea syndrome 71886653 Active [address], [address], [place], [address], [employer] 16:34:24 Mitral valve regurgitation 20812072 Active [address], [address], [place], [address], [employer] [facility] 16:34:38 Aortic valve regurgitation 35415444 Active [address], [address], [place], [address], [employer] [facility] 16:34:44 Fracture of shaft of femur 81879136 Active [address], [address], [place], [address], [employer] 8 16:35:57 Essential hypertension 51065681 Active [address], [address], [place], [address], [employer] [facility] 16:36:05 Chronic disease of respiratory system 43390831 Active [address], [address], [place], [address], [employer] [facility] 16:36:13 Gout 99055518 Active [address], [address], [place], [address], [employer] 8 16:44:07 Ujgvp-xd-qrwtv ic respiratory failure 71585740 Active 2017 Sho Houser MD [address] [facility], [address], [place], [address], [employer] 8 20:08:21 Fracture of shaft of femur 44246038 Active 2017 Sho Houser MD [address] [facility], [address], [place], [address], [facility] [employer] 8 20:11:04 Solitary nodule of lung 320423926 Active 2017 Sho Houser MD [address] [facility], [address], [place], [address], [facility] [employer] 8 20:17:21 Mixed hyperlipidemia 170631686 Active 2017 Sho Houser MD [address] [place] [address], [address], [place], [address], [employer] 8 20:19:54 Problem Notes None recorded. Medical Equipment None Reported. Allergies Allergen ID Allergen Name Allergen Category Reaction Reaction Severity Criticality Documentation Date Start Date Code Code System Note Provider Name and Address Organization Details Recorded Time 19771 acetamino phen / hydrocodo ne medicatio n Not available Not available Not available 12/18/2017 22740 [address], [address], [place], [address], [employer] [facility] 16:34:03 Vitals Date Recorded Body height Body temperature Heart rate Respiratory rate Oxygen saturation Oxygen saturation in Arterial blood by Pulse oximetry Systolic blood pressure Diastolic blood pressure Provider Name and Address Organization Details Last Updated DateTime 8 163.07 cm 97.4 [degF] 80 /min 18 /min 93 % 93 % 138 mm[Hg] 62 mm[Hg] VANESSA HARDEN [address] [facility], [address], [place], [address], [employer] 8 11:11:37 Date Recorded Body height Heart rate Respiratory rate Provider Name and Address Organization Details Last Updated DateTime 01/22/2018 163.07 cm 72 /min 16 /min LIGIA LORD [address] [facility], [address], [place], [address], [facility] [facility] 01/22/2018 15:29:09 Date Recorded Body height Body temperature Heart rate Respiratory rate Oxygen saturation Oxygen saturation in Arterial blood by Pulse oximetry Systolic blood pressure Diastolic blood pressure Provider Name and Address Organization Details Last Updated DateTime 8 163.07 cm 97.2 [degF] 68 /min 18 /min 94 % 94 % 106 mm[Hg] 49 mm[Hg] JOSUE CORREAVANESSA [address] [facility], [address], [place], [address], [facility] 8 16:58:27 Date Recorded Body height Heart rate Respiratory rate Body temperature Provider Name and Address Organization Details Last Updated DateTime 02/05/2018 163.07 cm 70 /min 16 /min 97.1 [degF] LIGIA LEMUS [address] [facility], [address], [place], [address] , [employer] 02/05/2018 14:25:46 Date Recorded Body height Heart rate Respiratory rate Body temperature Oxygen saturation Oxygen saturation in Arterial blood by Pulse oximetry Systolic blood pressure Diastolic blood pressure Provider Name and Address Organization Details Last Updated DateTime 8 163.07 cm 61 /min 18 /min 98.1 [degF] 98 % 98 % 116 mm[Hg] 56 mm[Hg] JOSUE FERRERAVANESSA SCHULTZ [address] [facility], [address], [place], [address], [employer] 8 16:42:44 Social History Question Answer Notes LastModified by Organizat ion Details LastModified Time Tobacco Smoking Status Unknown If Ever Smoked Not Available [facility] 03/29/2020 03:13:20 Do You Have An Advance Directive? Yes Full Code [id number] Information not available 03/29/2020 What Was The Date Of Your Most Recent Tobacco Screening? 02/07/2018 [id number] Information not available 03/29/2020 Sex: Unknown Functional Status None recorded. Mental Status None recorded. Family History Nothing Reported. Medical History No medical history recorded. Gynecological HistoryNo gynecological history recorded. Obstetrics History GPAL:G 0 P 0 0 0 0 Past Encounters Encounter ID Performer Location Encounter Start Date Encounter Closed Date Diagnosis/Indication Diagnosis SNOMED-CT Code Diagnosis ICD10 Code Diagnosis Note [id number] LIGIA LEMUS LANDON SHANTE [address] [facility] [place] [address] 12/18/2017 16:36:21 12/23/2017 16:12:52 Pulmonary hypertension 44907157 I27.0 lasix 40 mg dailyfollo w up with cards in 1-2 weeksObtai n follow up chest xray in 1 week to see if pulm edema has resolvedco nt. 02 PRN to keep sats above 92% Fracture o f shaft of femur 06029952 S72.324D Tylenol 650 mg TID scheduledP ercocet PRN for severe painPT/OT eval and treatbrace on right knee at all times Essential hypertension 84303218 I10 Continue atenolol 50 mg dailylosar infante 100 mg dailyamlod ipine 5 mg dailynitro 0.4 sl prnmonitor bps daily Gout 71070359 M10.061 allopurino l 100 mg dailyasa 81 mg daily [id number] MD LANDON Prado SHANTE [address] [place] [address] [place] [address] 12/19/2017 17:49:22 12/24/2017 08:23:57 Pulmonary hypertension 30482789 I27.0 As above, also on lasix 40 mg qd with KCl 10 meq BID. Will f/u with cardio as planned, may need MVR, as this is thought part of the reason for her pulmonary HTN. Will repeat CXR next week to reassess pulmonary edema.Cont . 02 as above. Fracture o f shaft of femur 93150905 S72.324D Will need PT/OT for strengthen ing [...] times. F/U ortho as planned. Essential hypertension 86765888 I10 Good control on atenolol 50 mg qd, losartan 100 mg qd, amlodipine 5 mg qd and nitro 0.4 sl prnMonitor BP and labs. Gout 07169655 M10.061 Continue allopurino l 100 mg qd. Monitor for sxs. Solitary n odule of lung 984895501 R91.1 Will f/u with pulmonary for assessment . Acute-on-c hronic respiratory failure 67209581 J96.21 J96.12 On O2 at baseline, with acute worsening inpt. likely secondary to pulmonary HTN (see below). Continue O2 by NC, titrated to keep sats above between 90-94% so as not to induce hypercapni a. Will f/u with pulmonary and cardio. Obstructiv e sleep apnea syndrome 94963409 G47.33 Continue CPAP as usual. Mixed hyperlipidemia 267 145142 E78.2 Continue atorvastat in 80 mg qd and ASA 81 mg qd. Monitor labs as outpt. [id number] VANESSA HARDEN [address] [place] [address] 12/27/2017 17:27:17 01/02/2018 15:17:31 Chronic disease of respiratory system 69938756 J98.9 she has not needed her oxygen at this time but knows she can use it if neededshe is seeing pulmonolog y on saturday for a follow up Obstructiv e sleep apnea syndrome 46016602 G47.33 she feels her cpap is not working rightwill order oxygen 2 liters via nc at night for nowmonitor Fracture o f shaft of femur 31997456 S72.8X1S continues with lidoderm patches on right legsees ortho next weekawaiti ng decision about next stepcontin ues non weight bearing status [id number] MD LANDON Scales [address] [place] [address] 01/15/2018 10:09:17 01/28/2018 13:33:13 Fracture of shaft of femur 96323791 S72.391D inform ortho of eventxray at facility to reeval [id number] VANESSA HARDEN [address] [place] [address] 01/17/2018 11:10:56 01/28/2018 13:53:07 Essential hypertension 47346208 I10 norvasc 5 mg qdatenolol 50 mg qdlasix 40 mg qdlosartan potassium 100 mg qdmonitor b/p and labs Chronic di sease of respiratory system 39380250 J98.9 she follows with pulmonolog yshe uses oxygen as neededmoni tor respirator y status Fracture o f shaft of femur 62528248 S72.8X1S continues with lidoderm patches on right leg non weight bearing status follows with orthofelt she hurt it worsex-ray was negative and said there was the healing fracturewa nts CT results from ortho but doesn't see them til 30 thmonitor [id number] [place] [address] 01/22/2018 15:15:11 01/28/2018 14:03:23 Essential hypertension 66815931 I10 norvasc 5 mg qdatenolol 50 mg qdlasix 40 mg qdlosartan potassium 100 mg qdmonitor b/p and labs Chronic di sease of respiratory system 92662244 J98.9 Follows with pulmonolog yCPAP at bedtime while sleeping she uses oxygen as neededmoni tor respirator y status Fracture o f shaft of femur 11474875 S72.8X1S continues with lidoderm patches on right leg non weight bearing status, toe touch only follow up with ortho this saturday to determine weight bearing statusmoni tor for pain controltyl enol 650 mg q 8 hours PRN [id number] VANESSA HARDEN [facility] [address] [place] [address] 01/27/2018 16:57:24 02/12/2018 08:38:08 Fracture of shaft of femur 32719999 S72.8X1S continues with lidoderm patches on right legfollows with orthotoe touch allowedhom e visit this weekcontin ues with therapy Essential hypertension 40418307 I10 norvasc 5 mg qdatenolol 50 mg qdlasix 40 mg qdlosartan potassium 100 mg qdmonitor b/p and labs Mixed hyperlipidemia 267 325723 E78.2 carries diagnosisn ot on medication monitor labs [id number] LIGIA LEMUS [place] [address] [facility] [place] [address] 02/05/2018 14:10:52 02/12/2018 11:56:12 Fracture of shaft of femur 14972135 S72.8X1S continues with lidoderm patches on right legfollows with ortho in 4 weekstoe touch allowed only at this timecontin ues with therapyHom e eval went well, question possible discharge by the end of this week D/C colace 100 mg daily due to loose stools Essential hypertension 97733945 I10 norvasc 5 mg qdatenolol 50 mg qdlasix 40 mg qdlosartan potassium 100 mg qdmonitor b/p and labs [id number] VANESSA HARDEN [address] [place] [address] rd [place] [address] 02/07/2018 16:41:46 02/12/2018 12:03:29 Fracture of shaft of femur 34564135 S72.8X1S continues with lidoderm patches on right legfollows with orthotoe touch allowedtyl enol 650 mg q 8 hrspercoce t q 4 hrs prnfollow up with ortho Essential hypertension 15237473 I10 ASA 81 mgnorvasc 5 mg qdatenolol 50 mg qdlasix 40 mg qdpotassiu m 10 meq qdlosartan potassium 100 mg qdfollow up with PCP Mixed hyperlipidemia 267 854331 E78.2 atorvastat in 80 mg qd follow up with PCP Obstructiv e sleep apnea syndrome 76019991 G47.33 continue home CPAPfollow up with PCP Gout 24690149 M10.49 allopurino l 100 mg qdfollow up with PCP Chronic di sease of respiratory system 02294696 J98.9 she follows with pulmonolog yshe uses [...] Member ID Guarantor Name 01/17/2018 1 [place] [employer] Ramona Pinon [id number] Ramona Pinon 01/17/2018 2 [place] Ramona Pinon [id number] Ramona Pinon 01/22/2018 1 [place] [employer] Ramona Pinon [id number] Ramona Pinon 01/22/2018 2 [place] Ramona Pinon [id number] Ramona Pinon 01/27/2018 1 [place] [employer] Ramona Pinon [id number] Ramona Pinon 01/27/2018 2 [place] Ramona Pinon [id number] Ramona Pinon 02/05/2018 1 [place] [facility] Ramona Pinon [id number] Ramona Pinon 02/05/2018 2 [place] Ramona Pinon [id number] Ramona Pinon 02/07/2018 1 [place] [facility] Ramona Pinon [id number] Ramona Pinon 02/07/2018 2 [place] [employer] Ramona Pinon [id number] Ramona Pinon Notes Date Note Type Note [...] been working with therapy. VANESSA HARDEN [address] [facility], [address], [place], [address], [employer] 01/17/2018 11:55:52 01/22/2018 text/html A 77 year old female being seen today for acute rounding visit. Pt has follow up with ortho this saturday to determine if she can move to weight bearing status. Otherwise she has no new health concerns at this time. LIGIA LEMUS [address] [facility], [address], [place], [address], [employer] 01/22/2018 15:31:01 01/27/2018 text/html A 77 year old female being seen for a acute rounding visit. She has been working with therapy and will have a home visit soon. She is toe touch at this time. She sees ortho in 5 weeks. Staff notes no concerns at this time. VANESSA HARDEN [address] [facility], [address], [place], [address], [employer] 01/27/2018 17:14:53 02/05/2018 text/html A 77 year [...] for loose stool often. LIGIA LEMUS [address] [facility], [address], [place], [address], [facility] [employer] 02/05/2018 14:25:49 02/07/2018 text/html A 77 year [...] disease and pulmonary hypertension. VANESSA HARDEN [address] [facility], [address], [place], [address], [facility] [employer] 02/07/2018 16:59:57 OBGyn Episode No OBEpisode recorded.
--- OUTSIDE RECORDS SUMMARY | 2024-10-02 09:28 | XMS_ITS | Clinical Summary ---
Author Organization [facility] Facility Address [address] [address] Care Team Providers Care Cuff Knitter Name Role Phone Kiesha Macedo MD Primary Care Provider [phone] Social History Tobacco Use Types Packs/Day Years [...] age to complete this topic Insurance Medicare [facility] Medicare [facility] Care Teams Cuff Knitter Relationship Specialty Start Date End Date Kiesha Macedo MD [address] [place], [place] PCP - General Internal Medicine 08/29/22
== END 2024-10-02 09:37 | disposition home or self-care (01) ==
LOC: HO.ACS 08:59
PROVIDERS: PCP Internal Medicine; Visit Provider Internal Medicine Medical Oncology
DX: Z79.01 Long term (current) use of anticoagulants (principal)

== ENCOUNTER → 2024-10-02 08:59 | Outpatient (BNVA) | payer MEDICARE, BC, SELFPAY | PROVIDERS: PCP Internal Medicine; Visit Provider Internal Medicine Medical Oncology | DX: I48.0 Paroxysmal atrial fibrillation (principal); Z51.81 Encounter for therapeutic drug level monitoring; Z79.01 Long term (current) use of anticoagulants | CPT/HCPCS: 85610; 99211 ==

== ENCOUNTER → 2024-10-09 13:46 | Outpatient (BNVA) | payer MEDICARE, BC, SELFPAY | PROVIDERS: PCP Internal Medicine; Visit Provider Internal Medicine Medical Oncology ==

== ENCOUNTER → 2024-10-12 13:11 | Outpatient (BNVA) | payer MEDICARE, BC, SELFPAY | PROVIDERS: PCP Internal Medicine; Visit Provider Internal Medicine Medical Oncology ==

== ENCOUNTER 2024-10-13 07:57 | Outpatient (AMB) | payer MEDICARE, BC, SELFPAY ==
--- OUTSIDE RECORDS SUMMARY | 2024-10-13 08:00 | XMS_ITS | Data Portability ---
Author Organization [facility], Main Office Address [address] [facility] [address] [place] [address] Care Team Providers Care Frame Straightener Name Role Phone LANDON FREY 1ST FLOOR OTHER Assessment Encounter Date Assessment Date Assessment LastModified by Organization Details LastModified Time 01/17/2018 01/17/2018 01/13/18 WBC 4.3, Hgb 11.8, Hct 35.1, Na 141, K 3.6, BUN 12, Proposal Director 0.62 [email or web address] Not available 01/17/2018 11:17:28 01/22/2018 01/22/201801/13: na 141, k 3.6, bun 12, creat 0.62, wbc 4.3, hgb 11.8, hct 35.1 glord Not available 01/22/2018 15:24:19 01/27/2018 01/27/2018 01/27/18 WBC 5.4, Hgb 13.7, Hct 41.3, Na 142, K 3.9, BUN 12, Proposal Director 0.59 [email or web address] Not available 01/27/2018 17:03:47 02/05/2018 02/05/201802/03: na 143, k 3.7, bun 15, creat 0.66, wbc 4.2, hgb 11.5, hct 35.2 glord Not available 02/05/2018 14:14:26 02/07/2018 02/07/2018 02/03/18 WBC 4.2, Hgb 11.5, Hct 35.2, Na 143, K 3.7, BUN 15, Proposal Director 0.66 [email or web address] Not available 02/07/2018 16:44:48 Plan [...] Address Organization Details Recorded Time Pulmonary hypertension 33075996 Active [address], [address], [place], [address], [employer] 8 16:34:20 Obstructive sleep apnea syndrome 71466770 Active [address], [address], [place], [address], [employer] 8 16:34:24 Mitral valve regurgitation 86172609 Active [address], [address], [place], [address], [employer] 8 16:34:38 Aortic valve regurgitation 96137667 Active [address], [address], [place], [address], [employer] 8 16:34:44 Fracture of shaft of femur 26691903 Active [address], [address], [place], [address], [employer] 8 16:35:57 Essential hypertension 25853719 Active [address], [address], [place], [address], [employer] [facility] 8 16:36:05 Chronic disease of respiratory system 69006895 Active [address], [address], [place], [address], [employer] [facility] 8 16:36:13 Gout 73763777 Active [address], [address], [place], [address], [employer] [facility] 8 16:44:07 Rvvro-gt-vxpbh ic respiratory failure 93492898 Active 2017 Sho Houser MD [address] [facility], [address], [place], [address], [employer] 8 20:08:21 Fracture of shaft of femur 26784744 Active 2017 Sho Houser MD [address] [facility], [address], [place], [address], [facility] [email or web address] 8 20:11:04 Solitary nodule of lung 963988203 Active 2017 Sho Houser MD [address] [facility], [address], [place], [address], [facility] [employer] 8 20:17:21 Mixed hyperlipidemia 827308618 Active 2017 Sho Houser MD [address] [place] [address], [address], [place], [address], [employer] 8 20:19:54 Problem Notes None recorded. Medical Equipment None Reported. Allergies Allergen ID Allergen Name Allergen Category Reaction Reaction Severity Criticality Documentation Date Start Date Code Code System Note Provider Name and Address Organization Details Recorded Time 36770 acetamino phen / hydrocodo ne medicatio n Not available Not available Not available 12/18/2017 [address]173 [address], [address], [place], [address], [employer] 8 16:34:03 Vitals Date Recorded Body height Body temperature Heart rate Respiratory rate Oxygen saturation Oxygen saturation in Arterial blood by Pulse oximetry Systolic blood pressure Diastolic blood pressure Provider Name and Address Organization Details Last Updated DateTime 8 163.07 cm 97.4 [degF] 80 /min 18 /min 93 % 93 % 138 mm[Hg] 62 mm[Hg] VANESSA HARDEN [address] [facility], [address], [place], [address], [employer] [facility] 8 11:11:37 Date Recorded Body height Heart rate Respiratory rate Provider Name and Address Organization Details Last Updated DateTime 01/22/2018 163.07 cm 72 /min 16 /min LIGIA LORD [address] [facility], [address], [place], [address], [facility] 01/22/2018 15:29:09 Date Recorded Body height Body temperature Heart rate Respiratory rate Oxygen saturation Oxygen saturation in Arterial blood by Pulse oximetry Systolic blood pressure Diastolic blood pressure Provider Name and Address Organization Details Last Updated DateTime 8 163.07 cm 97.2 [degF] 68 /min 18 /min 94 % 94 % 106 mm[Hg] 49 mm[Hg] JOSUE CORREAVANESSA [address] [facility], [address], [place], [address], [facility] 8 16:58:27 Date Recorded Body height Heart rate Respiratory rate Body temperature Provider Name and Address Organization Details Last Updated DateTime 02/05/2018 163.07 cm 70 /min 16 /min 97.1 [degF] LIGIA LEMUS [address] [facility], [address], [place], [address] , [employer] [facility] 02/05/2018 14:25:46 Date Recorded Body height Heart rate Respiratory rate Body temperature Oxygen saturation Oxygen saturation in Arterial blood by Pulse oximetry Systolic blood pressure Diastolic blood pressure Provider Name and Address Organization Details Last Updated DateTime 8 163.07 cm 61 /min 18 /min 98.1 [degF] 98 % 98 % 116 mm[Hg] 56 mm[Hg] JOSUE FERRERAVANESSA SCHULTZ [address] [facility], [address], [place], [address], [employer] 8 16:42:44 Social History Question Answer Notes LastModified by Organizat ion Details LastModified Time Tobacco Smoking Status Unknown If Ever Smoked Not Available [facility] 03/29/2020 03:13:20 Do You Have An Advance Directive? Yes Full Code [id number] Information not available 03/29/2020 What Was The Date Of Your Most Recent Tobacco Screening? 02/07/2018 [id number] Information not available 03/29/2020 Sex: Unknown Functional Status None recorded. Mental Status None recorded. Family History Nothing Reported. Medical History No medical history recorded. Gynecological HistoryNo gynecological history recorded. Obstetrics History GPAL:G 0 P 0 0 0 0 Past Encounters Encounter ID Performer Location Encounter Start Date Encounter Closed Date Diagnosis/Indication Diagnosis SNOMED-CT Code Diagnosis ICD10 Code Diagnosis Note [id number] LIGIA LEMUS LANDON SHANTE [address] [facility] [place] [address] 12/18/2017 16:36:21 12/23/2017 16:12:52 Pulmonary hypertension 79316999 I27.0 lasix 40 mg dailyfollo w up with cards in 1-2 weeksObtai n follow up chest xray in 1 week to see if pulm edema has resolvedco nt. 02 PRN to keep sats above 92% Fracture o f shaft of femur 89246164 S72.324D Tylenol 650 mg TID scheduledP ercocet PRN for severe painPT/OT eval and treatbrace on right knee at all times Essential hypertension 64549686 I10 Continue atenolol 50 mg dailylosar infante 100 mg dailyamlod ipine 5 mg dailynitro 0.4 sl prnmonitor bps daily Gout 83022145 M10.061 allopurino l 100 mg dailyasa 81 mg daily [id number] MD LANDON Prado SHANTE [address] [place] [address] [place] [address] 12/19/2017 17:49:22 12/24/2017 08:23:57 Pulmonary hypertension 19409073 I27.0 As above, also on lasix 40 mg qd with KCl 10 meq BID. Will f/u with cardio as planned, may need MVR, as this is thought part of the reason for her pulmonary HTN. Will repeat CXR next week to reassess pulmonary edema.Cont . 02 as above. Fracture o f shaft of femur 71881058 S72.324D Will need PT/OT for strengthen ing [...] times. F/U ortho as planned. Essential hypertension 97701257 I10 Good control on atenolol 50 mg qd, losartan 100 mg qd, amlodipine 5 mg qd and nitro 0.4 sl prnMonitor BP and labs. Gout 42598759 M10.061 Continue allopurino l 100 mg qd. Monitor for sxs. Solitary n odule of lung 926107495 R91.1 Will f/u with pulmonary for assessment . Acute-on-c hronic respiratory failure 21347402 J96.21 J96.12 On O2 at baseline, with acute worsening inpt. likely secondary to pulmonary HTN (see below). Continue O2 by NC, titrated to keep sats above between 90-94% so as not to induce hypercapni a. Will f/u with pulmonary and cardio. Obstructiv e sleep apnea syndrome 94735632 G47.33 Continue CPAP as usual. Mixed hyperlipidemia 267 808847 E78.2 Continue atorvastat in 80 mg qd and ASA 81 mg qd. Monitor labs as outpt. [id number] VANESSA HARDEN [address] [place] [address] 12/27/2017 17:27:17 01/02/2018 15:17:31 Chronic disease of respiratory system 30670367 J98.9 she has not needed her oxygen at this time but knows she can use it if neededshe is seeing pulmonolog y on saturday for a follow up Obstructiv e sleep apnea syndrome 89862089 G47.33 she feels her cpap is not working rightwill order oxygen 2 liters via nc at night for nowmonitor Fracture o f shaft of femur 27297796 S72.8X1S continues with lidoderm patches on right legsees ortho next weekawaiti ng decision about next stepcontin ues non weight bearing status [id number] MD LANDON Scales [address] [place] [address] 01/15/2018 10:09:17 01/28/2018 13:33:13 Fracture of shaft of femur 51230351 S72.391D inform ortho of eventxray at facility to reeval [id number] VANESSA HARDEN [address] [place] [address] 01/17/2018 11:10:56 01/28/2018 13:53:07 Essential hypertension 70037919 I10 norvasc 5 mg qdatenolol 50 mg qdlasix 40 mg qdlosartan potassium 100 mg qdmonitor b/p and labs Chronic di sease of respiratory system 54830073 J98.9 she follows with pulmonolog yshe uses oxygen as neededmoni tor respirator y status Fracture o f shaft of femur 61664156 S72.8X1S continues with lidoderm patches on right leg non weight bearing status follows with orthofelt she hurt it worsex-ray was negative and said there was the healing fracturewa nts CT results from ortho but doesn't see them til 30 thmonitor [id number] LIGIA FREY [address] [facility] [place] [address] 01/22/2018 15:15:11 01/28/2018 14:03:23 Essential hypertension 09815630 I10 norvasc 5 mg qdatenolol 50 mg qdlasix 40 mg qdlosartan potassium 100 mg qdmonitor b/p and labs Chronic di sease of respiratory system 88346932 J98.9 Follows with pulmonolog yCPAP at bedtime while sleeping she uses oxygen as neededmoni tor respirator y status Fracture o f shaft of femur 95770284 S72.8X1S continues with lidoderm patches on right leg non weight bearing status, toe touch only follow up with ortho this saturday to determine weight bearing statusmoni tor for pain controltyl enol 650 mg q 8 hours PRN [id number] VANESSA HARDEN [facility] [address] [facility] [place] [address] 01/27/2018 16:57:24 02/12/2018 08:38:08 Fracture of shaft of femur 11130429 S72.8X1S continues with lidoderm patches on right legfollows with orthotoe touch allowedhom e visit this weekcontin ues with therapy Essential hypertension 14248622 I10 norvasc 5 mg qdatenolol 50 mg qdlasix 40 mg qdlosartan potassium 100 mg qdmonitor b/p and labs Mixed hyperlipidemia 267 927881 E78.2 carries diagnosisn ot on medication monitor labs [id number] LIGIA LEMUS Dante [address] [place] [address] 02/05/2018 14:10:52 02/12/2018 11:56:12 Fracture of shaft of femur 88394539 S72.8X1S continues with lidoderm patches on right legfollows with ortho in 4 weekstoe touch allowed only at this timecontin ues with therapyHom e eval went well, question possible discharge by the end of this week D/C colace 100 mg daily due to loose stools Essential hypertension 04875867 I10 norvasc 5 mg qdatenolol 50 mg qdlasix 40 mg qdlosartan potassium 100 mg qdmonitor b/p and labs [id number] VANESSA HARDEN [address] [place] [address] rd [place] [address] 02/07/2018 16:41:46 02/12/2018 12:03:29 Fracture of shaft of femur 98584375 S72.8X1S continues with lidoderm patches on right legfollows with orthotoe touch allowedtyl enol 650 mg q 8 hrspercoce t q 4 hrs prnfollow up with ortho Essential hypertension 54645184 I10 ASA 81 mgnorvasc 5 mg qdatenolol 50 mg qdlasix 40 mg qdpotassiu m 10 meq qdlosartan potassium 100 mg qdfollow up with PCP Mixed hyperlipidemia 267 882502 E78.2 atorvastat in 80 mg qd follow up with PCP Obstructiv e sleep apnea syndrome 79058090 G47.33 continue home CPAPfollow up with PCP Gout 80519404 M10.49 allopurino l 100 mg qdfollow up with PCP Chronic di sease of respiratory system 35928568 J98.9 she follows with pulmonolog yshe uses [...] Guarantor Name 01/17/2018 1 [place] NATIONAL [facility] Ramona Pinon [id number] Ramona Pinon 01/17/2018 2 [place] Ramona Pinon [id number] Ramona Pinon 01/22/2018 1 [place] Ramona Pinon [id number] Ramona Pinon 01/22/2018 2 [place] Ramona Pinon [id number] Ramona Pinon 01/27/2018 1 [place] [employer] Ramona Pinon [id number] Ramona Pinon 01/27/2018 2 [place] Ramona Pinon [id number] Ramona Pinon 02/05/2018 1 [place] [facility] Ramona Pinon [id number] Ramona Pinon 02/05/2018 2 [place] Ramona Pinon [id number] Ramona Pinon 02/07/2018 1 [place] [facility] Ramona Pinon [id number] Ramona Pinon 02/07/2018 2 [place] [employer] Ramona Pinon [id number] Ramona Pinon Notes Date Note Type Note [...] VANESSA HARDEN [address] [facility], [address], [place], [address], [employer] 01/17/2018 11:55:52 01/22/2018 text/html A 77 year old female being seen today for acute rounding visit. Pt has follow up with ortho this saturday to determine if she can move to weight bearing status. Otherwise she has no new health concerns at this time. LIGIA LEMUS [address] [facility], [address], [place], [address], [employer] [facility] 01/22/2018 15:31:01 01/27/2018 text/html A 77 year old female being seen for a acute rounding visit. She has been working with therapy and will have a home visit soon. She is toe touch at this time. She sees ortho in 5 weeks. Staff notes no concerns at this time. VANESSA HARDEN [address] [facility], [address], [place], [address], [employer] [facility] 01/27/2018 17:14:53 02/05/2018 text/html A 77 year [...] LIGIA LEMUS [address] [facility], [address], [place], [address], [facility] [email or web address] 02/05/2018 14:25:49 02/07/2018 text/html A 77 year [...] VANESSA HARDEN [address] [facility], [address], [place], [address], [facility] [employer] 02/07/2018 16:59:57 OBGyn Episode No OBEpisode recorded.
--- OUTSIDE RECORDS SUMMARY | 2024-10-13 08:00 | XMS_ITS | Clinical Summary ---
Author Organization [facility] Facility Address [address] [address] Care Team Providers Care Watershed Coordinator Name Role Phone Kiesha Macedo MD Primary Care Provider [phone] Social History Tobacco Use Types Packs/Day Years [...] age to complete this topic Insurance Medicare [facility] Medicare [facility] Care Teams Watershed Coordinator Relationship Specialty Start Date End Date Kiesha Macedo MD [address] [place], [place] PCP - General Internal Medicine 08/29/22
[2024-10-13 08:22] LABS: Prothrombin Time Whole Bld POC 25.8 sec (11.1-13.5); ~PT, ~INR - Anti Coag Clinic 2.2 (0.9-1.1)
--- NOTE | 2024-10-13 08:32 | MHC.OFFVISCO ---
Intake Intake Visit Reasons: Anticoagulation Allergies acetaminophen [From Vicodin] Allergy (Intermediate, Verified 10/13/24 08:05) per patient hydrocodone [From Vicodin] Allergy (Mild, Verified 10/13/24 08:05) CHEST PAIN Medication List - Last Reconciled 10/13/24 by Yolis Mendez RN acetaminophen 650 mg PO Q8H PRN albuterol sulfate 90 mcg/actuation 2 puffs inhalation Q4-6H PRN amiodarone 200 mg PO DAILY ascorbate calcium (vitamin C) 500 mg PO DAILY aspirin (Noel Low Dose Aspirin) 81 mg PO DAILY atorvastatin 80 mg PO DAILY carvedilol 12.5 mg PO BID cefdinir 300 mg PO BID furosemide (Lasix) 40 mg PO DAILY ipratropium bromide 17 mcg/actuation (Atrovent HFA) inhalation yuistpojljzo-Bl-yvyf-minerals 1 tab PO DAILY omeprazole 20 mg PO BID@0630,1630 potassium chloride ER 30 mEq (1.5 x 20 mEq) PO DAILY vitamin B complex 1 tab PO DAILY warfarin See Protocol 2.5 mg orally 2.5MG DAILY WHILE RECOVERING MAY NEED DOSE ADJUSTMENTS; zinc gluconate 50 mg PO DAILY Nursing Note pt came today with [place] because it was a previous shceduled appt - will con twith VNA INRs and wound dresssings on legs enc ankle pumps to help with circulation INR: 2.2 in therapeutic range S/P pacer and wire placement- drsg dry and mostly [id number] corner loose) seeshaneka galloway this week Medications and supplements reviewed No changes in health, diet, medications, or supplements, Denies any signs and symptoms of bleeding or bruising or clotting. Bleeding, bruising, clotting discussed Nutritional guidance given - eat healthy fruits vegetables and protein Dose: decrease dose 2.5mg today then 1.25mg rest of this week while on antbx F/U INR: 10/16/2024 Patient verbalizes understanding of instructions given Anti-Coag Initial Assessment Social Hx Patient Tobacco Use Status: Former Tobacco user Tobacco use type: Cigarette alcohol intake: never Coding Level of Care Code Est Patient Level 1 Diagnoses Current use of anticoagulant therapy Z79.01 Results AMB INR Fingerstick AMB INR Fingerstick 2.2 Last Edit by Yolis Mendez RN on 10/13/24 08:22 MANUAL ENTRY AMB INR Fingerstick AMB INR Fingerstick 2.2 Last Edit by Yolis Mendez RN on 10/13/24 08:23 Assessment & Plan Assessment & Plan (1) Current use of anticoagulant therapy: Code(s): Z79.01 - adjunct faculty for medical terminology (current) use of 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
== END 2024-10-13 08:36 | disposition home or self-care (01) ==
LOC: HO.ACS 07:57
PROVIDERS: PCP Internal Medicine; Visit Provider Internal Medicine Medical Oncology
DX: Z79.01 Long term (current) use of anticoagulants (principal)

== ENCOUNTER → 2024-10-13 07:57 | Outpatient (BNVA) | payer MEDICARE, BC, SELFPAY | PROVIDERS: PCP Internal Medicine; Visit Provider Internal Medicine Medical Oncology | DX: I48.0 Paroxysmal atrial fibrillation (principal); Z79.01 Long term (current) use of anticoagulants; Z51.81 Encounter for therapeutic drug level monitoring | CPT/HCPCS: 85610; 99211 ==

== ENCOUNTER → 2024-10-16 14:29 | Outpatient (BNVA) | payer MEDICARE, BC, SELFPAY | PROVIDERS: PCP Internal Medicine; Visit Provider Internal Medicine Medical Oncology ==

== ENCOUNTER → 2024-10-23 11:48 | Outpatient (BNVA) | payer MEDICARE, BC, SELFPAY | PROVIDERS: PCP Internal Medicine; Visit Provider Internal Medicine Medical Oncology ==

== ENCOUNTER → 2024-10-28 23:59 | Outpatient (BNV) | payer MEDICARE, BC, SELFPAY | PROVIDERS: PCP Internal Medicine; Visit Provider Internal Medicine | DX: L03.115 Cellulitis of right lower limb (principal); Z48.812 Encounter for surgical aftercare following surgery on the circulatory system | CPT/HCPCS: G0180 ==

== ENCOUNTER → 2024-10-30 14:11 | Outpatient (BNVA) | payer MEDICARE, BC, SELFPAY | PROVIDERS: PCP Internal Medicine; Visit Provider Internal Medicine Medical Oncology ==

== ENCOUNTER 2024-11-06 11:04 | Inpatient (IN) | payer MEDICARE, BC, SELFPAY ==
[2024-11-06] VITALS (10 sets, daily range): BP systolic 110–138; BP diastolic 52–74; PULSE 73–99; RESP 16–22; TEMP 36.3–37.2; O2SAT 94–98; BMI 27.4; BMI 26.6
--- NOTE | ~2024-11-06 | XR_ITS ---
EXAMINATION: XR CHEST 2 VIEWS HISTORY: SOB COMPARISON: Comparison is made with the prior examination dated 11/30/2023. FINDINGS: AP and lateral views of the chest are submitted. A left subclavian dual-chamber pacemaker is again noted. An additional lead has been placed in the right ventricle since the prior study. There is prominence of the pulmonary vasculature, consistent with congestion. There are small bilateral pleural effusions. There is no pneumothorax. The heart remains enlarged. The aorta is calcified. There is degenerative disc disease of the spine. XR/XR chest 2V IMPRESSION: Cardiomegaly, pulmonary vascular congestion, and small bilateral pleural effusions. Electronically signed by: Tae Khan MD 11/06/2024 12:30 PM EDT
--- NOTE | 2024-11-06 11:07 | ED_ITS ---
HPI - General Adult General Chief complaint: Dyspnea Stated complaint: SOB PER EMS History of Present Illness ED Provider: Dr. Sousa HPI narrative: 84 y/o F patient; PMH HFrEF (ECHO 06/2024 showed left ventricular severely dilated with diffuse hypokinesis and EF 20 - 25%), CKD, HTN, HLD, GORDON, atrial fibrillation on Coumadin, COPD on baseline 2L NC, severe pulmonary HTN, bioprosthetic MVR (2020), recent pacemaker placement 10/08/2024 at [facility]; presents via EMS for approx 24 hours of severe shortness of breath. Associated with increased lower extremity edema. The patient typically wears her CPAP at night but continued to wear it all morning. The patient otherwise denies: fever or chills, chest pain, nausea/vomiting, abdominal pain. She does have a known RLE wound which is being followed by wound care, dressing changed today 11/06/2024. EMS provided Albuterol NEB and Solu-Medrol 125mg IV during transport. Related Data Home Medications ?Medication ?Instructions ?Recorded ?Confirmed ascorbate calcium (vitamin C) 500 500 mg PO DAILY 01/04/23 10/30/24 mg tablet aspirin 81 mg tablet,delayed 81 mg PO DAILY 01/04/23 10/30/24 release (Noel Low Dose Aspirin) [id number]-Fn-aqlh-minerals 1 tab PO DAILY 01/04/23 10/30/24 zinc gluconate 50 mg tablet 50 mg PO DAILY 01/04/23 10/30/24 vitamin B complex 1 tab PO DAILY 11/26/23 10/30/24 acetaminophen 325 mg capsule 650 mg PO Q8H PRN 01/20/24 10/30/24 amiodarone 200 mg tablet 200 mg PO DAILY 07/27/24 10/30/24 ipratropium bromide 17 inhalation 10/02/24 10/30/24 mcg/actuation HFA aerosol inhaler (Atrovent HFA) Previous Rx's ?Medication ?Instructions ?Recorded atorvastatin 80 mg tablet 80 mg PO DAILY #90 tabs 04/01/24 albuterol sulfate 90 mcg/actuation 2 puff inhalation Q4-6H PRN 06/30/24 aerosol inhaler shortness of breath or wheezing #8.5 grams potassium chloride 20 mEq 30 meq (1.5 x 20 mEq) PO DAILY 06/30/24 tablet,extended release(part/cryst) #135 tabs carvedilol 12.5 mg tablet 12.5 mg PO BID #180 tabs 07/30/24 warfarin 2.5 mg tablet 2.5 mg PO .COMPLEX #90 tabs 07/30/24 furosemide 40 mg tablet (Lasix) 40 mg PO DAILY #90 tabs 10/28/24 omeprazole 20 mg capsule,delayed 20 mg PO BID #180 caps 10/28/24 release Allergies Allergy/AdvReac Type Severity Reaction Status Date / Time acetaminophen [From Vicodin] Allergy Intermediate per patient Verified 11/06/24 11:20 hydrocodone [From Vicodin] Allergy Mild CHEST PAIN Verified 11/06/24 11:20 Review of Systems 2 Review of Systems: Yes all other systems are reviewed and are negative [facility] Past Medical History Attestation statement: The following information was validated with the patient. Source: old records reviewed Medical History Chronic atrial fibrillation Chronic anticoagulation Obesity CKD (chronic kidney disease) stage 3, GFR 30-59 ml/min Nephrolithiasis, uric acid Hyperlipidemia HTN (hypertension) A-fib GORDON (obstructive sleep apnea) COPD (chronic obstructive pulmonary disease) Pulmonary HTN Severe mitral regurgitation Thiamine deficiency Osteoporosis Surgical History Hx of hernia repair History of open reduction and internal fixation (ORIF) procedure Family History Family History Father No problems noted. Mother No problems noted. Maternal Aunt Breast cancer Social History Social History Household Members: Spouse Housing: House Do you presently have visiting nurse or other home services: No Alcohol intake: never Patient Tobacco Use Status: Former Tobacco user Tobacco use type: Cigarette e-Cigarette/Vaping Use: Never Used Second Hand Smoke Exposure: No Advance Directives: Yes Advance Directives on File: Yes Advance Directives Date on File: 11/28/23 service: No Current occupational status: retired Cognitive needs: No Hearing needs: No Vision needs: No Physical Exam ED Vital Signs: Vital Signs - 24 hr 11/06/24 11:12 11/06/24 11:36 11/06/24 12:30 Temperature 97.6 F 97.6 F Pulse Rate 89 89 81 Respiratory Rate 18 18 22 H Blood Pressure 111/74 111/74 Pulse Oximetry 97 97 Oxygen Delivery Method Room Air 11/06/24 13:24 11/06/24 13:28 Temperature Pulse Rate 80 Respiratory Rate 22 H Blood Pressure 118/52 L 118/52 L Pulse Oximetry 97 Oxygen Delivery Method BMI result Body Mass Index 27.4 Patient is afebrile and hemodynamically stable. Const General: cooperative Orientation/consciousness: patient oriented x3 HENMT Head: Yes normal to inspection and Yes atraumatic Eyes General: appearance normal, both eyes and all related structures Pupils: Equal, round and reactive pupils present EOM: EOMs intact bilaterally Neck Neck: Yes normal visual inspection, Yes full ROM, Yes supple and No tender Chest Other: Well healing incision to left upper chest wall c/d/i. Chest palpation & inspection: normal inspection of the chest and normal palpation of entire chest wall Resp Other: Mild bibasilar rhonchi Effort & Inspection: normal respiratory effort, able to speak in complete sentences, no cough and no respiratory distress Cardio Rate: regular rate Rhythm: regular rhythm Peripheral pulses: Peripheral pulses 2+ throughout GI Inspection: Yes normal to inspection, No Abdominal wall edema and No distended Palpation (GI): Soft to palpation, not firm, nontender, no guarding and not rigid Auscultation: normal bowel sounds Back/Spine/Pelvis Back: No back tenderness Neuro General: patient oriented x3 Cranial nerves: Yes Equal, round and reactive pupils present Extrem Other: 2+ bilateral lower extremity pitting edema RLE: Small 2cm wound to right medial aspect of calf. Erythema is well outlined. No significant tenderness or warmth. Course Course Course Narrative: Patient is afebrile and hemodynamically stable. Will obtain EKG, CXR, and laboratory studies. Patient placed on ED bronchodilator protocol. Labs reviewed. No significant anemia or leukocytosis. Baseline thrombocytopenia. INR slightly elevated at 4.4. VBG without acidosis. Initial troponin 10.7, repeat troponin 2hr ordered. COVID/Flu/RSV negative. Mild ARIADNA with Cr 1.11, prior 0.84 in 08/2024. Reevaluation(s) Reevaluation #1: CXR reviewed - noted to have cardiomegaly, pulmonary vascular congestion, and small bilateral pleural effusions. BNP is quite elevated at 3252, compared to prior of 1190 from 08/25/2024. Will give a dose of Lasix 40mg IV (patient is on Lasix 40mg PO at home). Patient's RLE is being followed by wound care. She has not had fever and does not have leukocytosis. I do not think there is current indication for antibiotic treatment. Plan: Admit to hospitalist for CHF exacerbation, ARIADNA Condition: Guarded Medications Administered Discontinued Medications Generic Name Dose Route Start Last Admin Trade Name Freq PRN Reason Stop Dose Admin Albuterol/Ipratropium 3 ml 11/06/24 12:22 11/06/24 12:27 Albuterol/Iprat 2.5/0.5mg 3 Ml Ampul.Neb INHALE 11/06/24 12:23 3 ml ONCE ONE Administration Furosemide 40 mg 11/06/24 12:42 11/06/24 13:24 Furosemide 40 Mg/4 Ml Vial IVPUSH 11/06/24 12:43 40 mg ONCE ONE Administration Protocol Medical Decision Making Lab Data 11/06/24 11:58 11/06/24 11:58 Labs: Lab Results 11/06/24 11/06/24 Range/Units 11:58 12:10 WBC 4.9 (4.8-10.8) X10*3/uL RBC 4.25 (4.20-5.50) X10*6/uL Hgb 12.3 (12.0-16.0) g/dl Hct 38.1 (37.0-47.0) % MCV 89.6 (80.0-98.0) fL MCH 28.9 (27.0-33.0) pg MCHC 32.3 (31.0-35.0) g/dl RDW 18.6 H (11.0-16.0) % Plt Count 110 L (160-400) X10*3/uL MPV 10.7 (9.4-12.3) fL Immature Gran % (Auto) 0.4 (0.0-0.4) % Neut % (Auto) 76.2 H (45-73) % Lymph % (Auto) 15.2 L (20-40) % [place] % (Auto) 7.0 (2-11) % Eos % (Auto) 1.0 (0-4) % Baso % (Auto) 0.2 (0-2) % Lymph # (Auto) 0.7 L (1.2-4.9) X10*3/uL [place] # (Auto) 0.3 (0.1-1.2) X10*3/uL Eos # (Auto) 0.1 (0.0-0.4) X10*3/uL Baso # (Auto) 0.0 (0.0-0.2) X10*3/uL Abs Immat Gran (auto) 0.02 (0.00-0.03) X10*3/uL Absolute Neuts (auto) 3.7 (2.0-8.3) x10*3/uL Absolute Nucleated RBC 0.000 (0.0-0.012) X10*3/uL Nucleated RBC % (auto) 0.0 (0.0-0.2) /100WBC PT 50.2 H D (10.9-12.4) SEC INR 4.4 H (0.9-1.1) VBG pH 7.48 H (7.32-7.43) VBG pCO2 35 mmHg VBG pO2 77 mmHg VBG HCO3 26 (22-26) mmol/L VBG O2 Saturation 95.0 % VBG Base Excess 3.3 mmol/L Sodium 141 (135-145) mmol/L Potassium 4.7 (3.3-5.1) mmol/L Chloride 108 (96-108) mmol/L Carbon Dioxide 25 (22-29) mmol/L Anion Gap 13 (12-20) BUN 20 H (9-16) mg/dL Creatinine 1.11 (0.5-1.4) mg/dL Estim Creat Clear Calc 38.1 Estimated GFR 47 Random Glucose 130 H (60-115) mg/dL Lactic Acid 2.0 (0.5-2.0) mmol/L Calcium 9.1 (8.4-10.2) mg/dL Total Bilirubin 1.1 H (0.0-1.0) mg/dL Direct Bilirubin 0.5 (0.0-0.5) mg/dL AST 52 H (5-31) U/L ALT 25 (0-31) U/L Alkaline Phosphatase 112 (39-117) U/L Troponin I High Sens 10.7 (<3.5-17.0) ng/L B-Natriuretic Peptide 3252 H (<100) pg/mL Total Protein 5.7 L (6.5-8.0) g/dL Albumin 3.2 L (3.5-5.0) g/dL Lipase 38 (8-78) U/L Influenza Type A (PCR) NEGATIVE (Negative) Influenza Type B (PCR) NEGATIVE (Negative) RSV RNA Qual (PCR) NEGATIVE (Negative) SARS-CoV-2 RNA (RT-PCR) NEGATIVE (Negative) Independent Interpretation I performed an independent interpretation of an: EKG Interpretation: Ventricular paced 84BPM Radiology Impression Discussion of test interpretation with radiology: I have reviewed the radiologist's reading. Radiologist Impression: EXAMINATION: XR CHEST 2 VIEWS HISTORY: SOB COMPARISON: Comparison is made with the prior examination dated 11/30/2023. FINDINGS: AP and lateral views of the chest are submitted. A left subclavian dual-chamber pacemaker is again noted. An additional lead has been placed in the right ventricle since the prior study. There is prominence of the pulmonary vasculature, consistent with congestion. There are small bilateral pleural effusions. There is no pneumothorax. The heart remains enlarged. The aorta is calcified. There is degenerative disc disease of the spine. XR/XR chest 2V IMPRESSION: Cardiomegaly, pulmonary vascular congestion, and small bilateral pleural effusions. Electronically signed by: Tae Khan MD 11/06/2024 12:30 PM EDT Discharge Plan Discharge Clinical Impression: CHF (congestive heart failure), ARIADNA (acute kidney injury) Patient Disposition: Admitted As Inpatient Print Language: Estonian
--- NOTE | 2024-11-06 11:11 | ECG_ITS ---
Test Reason : ARRHYTHMIA Blood Pressure : */* mmHG Vent. Rate : 84 BPM Atrial Rate : 86 BPM P-R Int : * ms QRS Dur : 162 ms QT Int : 452 ms P-R-T Axes : * 52 221 degrees QTcB Int : 534 ms Ventricular-paced rhythm Abnormal ECG When compared with ECG of 07-Oct-2022 19:05, rhythm change Referred By: Sola Sousa Electronically Signed By: NATE VILLEGAS
--- NOTE | 2024-11-06 11:41 | PC.NURSE ---
Pt roomed and placed on full monitor- NS PACED rhythm. No ectopy Pt denies Gi SX, Denies CP and SOB at this time.A&OX$ VSS
[2024-11-06 12:10] LABS: MANUAL DIFF FLAG NO
[2024-11-06 12:13] LABS: Basophils Percent Auto 0.2 % (0-2); Eosinophils Absolute Auto 0.1 X10*3/uL (0.0-0.4); Hematocrit 38.1 % (37.0-47.0); Hemoglobin 12.3 g/dl (12.0-16.0); Imm Gran Abs Auto 0.02 X10*3/uL (0.00-0.03); Imm Gran Pct Auto 0.4 % (0.0-0.4); Lymphocytes Absolute Auto 0.7 X10*3/uL (1.2-4.9); Lymphocytes Percent Auto 15.2 % (20-40); Mean Corpuscular HGB Conc 32.3 g/dl (31.0-35.0); Mean Corpuscular Hemoglobin 28.9 pg (27.0-33.0); Mean Corpuscular Volume 89.6 fL (80.0-98.0); Mean Platelet Volume 10.7 fL (9.4-12.3); Monocytes Absolute Auto 0.3 X10*3/uL (0.1-1.2); Neutrophils Absolute Auto 3.7 x10*3/uL (2.0-8.3); Neutrophils Percent Auto 76.2 % (45-73); Platelet Count 110 X10*3/uL (160-400); Red Blood Count 4.25 X10*6/uL (4.20-5.50); Red Cell Distribution Width 18.6 % (11.0-16.0); White Blood Count 4.9 X10*3/uL (4.8-10.8)
[2024-11-06 12:14] LABS: VBG Base Excess 3.3 mmol/L; VBG HCO3 26 mmol/L (22-26); VBG pCO2 35 mmHg; VBG pH 7.48 (7.32-7.43); VBG pO2 77 mmHg
[2024-11-06 12:16] LABS: Venous Blood Gas Refer to POC result
--- OUTSIDE RECORDS SUMMARY | 2024-11-06 12:19 | XMS_ITS | Clinical Summary ---
Author Organization [facility] Facility Address [address] [address] Care Team Providers Care Sheet Music Salesperson Name Role Phone Kiesha Macedo MD Primary Care Provider [phone] Social History Tobacco Use Types Packs/Day Years [...] HOSPITAL Medicare [facility] Care Teams Sheet Music Salesperson Relationship Specialty Start Date End Date Kiesha Macedo MD 1959 [place], [place] PCP - General Internal Medicine 08/29/22
[2024-11-06 12:22] LABS: INTERNATIONAL NORM RATIO 4.4 (0.9-1.1); Prothrombin Time 50.2 SEC (10.9-12.4)
[2024-11-06] MEDS: Albuterol/Iprat 2.5/0.5MG 3 ML AMPUL.NEB INHALE (12:27)
[2024-11-06 12:34] LABS: Troponin-I High Sensitivity 10.7 ng/L (<3.5-17.0)
[2024-11-06 12:38] LABS: B Type Natriuretic Peptide 3252 pg/mL (<100)
[2024-11-06 12:47] LABS: Influenza A PCR NEGATIVE (Negative); Influenza B PCR NEGATIVE (Negative); Resp Syncy Virus RNA Qual PCR NEGATIVE (Negative); SARS COV2 PCR INHOUSE NEGATIVE (Negative)
[2024-11-06] MEDS: Furosemide 40 MG/4 ML VIAL IVPUSH (13:24)
[2024-11-06 13:27] LABS: Alanine Aminotransferase 25 U/L (0-31); Albumin Level 3.2 g/dL (3.5-5.0); Alkaline Phosphatase 112 U/L (39-117); Anion Gap 13 (12-20); Aspartate Amino Transferase 52 U/L (5-31); Bilirubin Direct 0.5 mg/dL (0.0-0.5); Bilirubin Total 1.1 mg/dL (0.0-1.0); Blood Urea Nitrogen 20 mg/dL (9-16); Calcium 9.1 mg/dL (8.4-10.2); Carbon Dioxide 25 mmol/L (22-29); Chloride 108 mmol/L (96-108); Creatinine Clr Calc Pharmacy 38.1; Estimated Glomerular Filt Rate 47; Glucose Random 130 mg/dL (60-115); Lipase 38 U/L (8-78); Potassium 4.7 mmol/L (3.3-5.1); Sodium 141 mmol/L (135-145); Total Protein 5.7 g/dL (6.5-8.0)
--- NOTE | 2024-11-06 14:35 | P.HPHOSP_ITS ---
History of Present Illness Date of Service: 11/06/24 Attending physician on admission: Vito Salvador Chief Complaint: SOB Pt is an 84-year-old female with a PMH significant for?HFrEF (20-25% on 06/2024), s/p bioprosthetic mitral valve replacement, tricuspid valve repair, paroxysmal AFib on warfarin, s/p recent pacemaker replacement 10/08/2024 at [facility], HTN, HLD, CKD 3, and GERD who presents to the ED with?increased SOB and SUAREZ x3 days. Today symptoms worsened and pt reports worn her CPAP all morning. [place] lightheaded and wobbly when walking. Denies fever, chills. No cough. No orthopnea. Denies chest pain/pressure, or palpitations. No N/V/D. In the ED pt was tachypneic up to 22, and slightly soft BP of 118/52, satting at 97% on RA. Labs were significant for INR 4.4, creatinine 1.11 (previous 0.84), AST 52, and BNP 3252 (previous 1190). No leukocytosis. Stable H&H. No significant electrolyte abnormalities. Serial troponins flat at 10.7 and 10.9. Tested negative for flu, COVID, RSV. CXR showed cardiomegaly, pulmonary vascular congestion, and small bilateral pleural effusions. EKG demonstrated ventricular paced rhythm. Pt was treated in the ED with DuoNebs and Lasix 40 mg IV. Pt is admitted to the hospital for treatment and further evaluation of acute HFrEF exacerbation. Review of Systems 2 Review of Systems: Negative except for that which is stated in the HPI. [facility] Medical History Chronic atrial fibrillation Chronic anticoagulation Obesity CKD (chronic kidney disease) stage 3, GFR 30-59 ml/min Nephrolithiasis, uric acid Hyperlipidemia HTN (hypertension) A-fib GORDON (obstructive sleep apnea) COPD (chronic obstructive pulmonary disease) Pulmonary HTN Severe mitral regurgitation Thiamine deficiency Osteoporosis Family History Father No problems noted. Mother No problems noted. Maternal Aunt Breast cancer Surgical History Hx of hernia repair History of open reduction and internal fixation (ORIF) procedure Social History Household Members: Spouse Housing: House Do you presently have visiting nurse or other home services: No Alcohol intake: never Patient Tobacco Use Status: Former Tobacco user Tobacco use type: Cigarette e-Cigarette/Vaping Use: Never Used Second Hand Smoke Exposure: No Have you been hit, kicked, punched, or otherwise hurt by someone within the past year? If so, by whom?: No Do you feel safe in your current relationship?: Yes Is there a partner from a previous relationship who is making you feel unsafe now?: No Are you made to feel afraid or neglected: No Advance Directives: Yes Advance Directives on File: Yes Advance Directives Date on File: 11/28/23 Do you have a plan to hurt others: No Plan Recently lost weight without trying: No How much weight loss: Not applicable Eating poorly because of decreased appetite: No Nutrition screen score: 0 Nutrition Risks: No Nutritional Risk Patient : No : No Poor oral hygiene: No service: No Current occupational status: retired Cognitive needs: No Hearing needs: No Vision needs: No Meds Allergies Allergy/AdvReac Type Severity Reaction Status Date / Time acetaminophen [From Vicodin] Allergy Intermediate per patient Verified 11/06/24 11:20 hydrocodone [From Vicodin] Allergy Mild CHEST PAIN Verified 11/06/24 11:20 Home Medications ?Medication ?Instructions ?Recorded ?Confirmed ?Last Taken ?Type ascorbate calcium (vitamin C) 500 500 mg PO DAILY 01/04/23 11/06/24 11/06/24 History mg tablet aspirin 81 mg tablet,delayed 81 mg PO DAILY 01/04/23 11/06/24 11/06/24 History release (Noel Low Dose Aspirin) ogdhnjttcwsq-By-leei-minerals 1 tab PO DAILY 01/04/23 11/06/24 11/06/24 History zinc gluconate 50 mg tablet 50 mg PO DAILY 01/04/23 11/06/24 11/06/24 History vitamin B complex 1 tab PO DAILY 11/26/23 11/06/24 11/06/24 History acetaminophen 325 mg capsule 650 mg PO Q8H PRN Pain 01/20/24 11/06/24 Unknown History amiodarone 200 mg tablet 200 mg PO DAILY 07/27/24 11/06/24 11/06/24 History ipratropium bromide 17 2 puff inhalation QID 11/06/24 11/06/24 11/06/24 History mcg/actuation HFA aerosol inhaler (Atrovent HFA) Physical Exam 2 Vital Signs and Narrative: Vital Signs: Last Vital Signs Temp 97.6 F 11/06/24 11:36 Pulse 80 11/06/24 13:28 Resp 22 H 11/06/24 13:28 BP 118/52 L 11/06/24 13:28 Pulse Ox 97 11/06/24 13:28 O2 Del Method Room Air 11/06/24 11:36 BMI result Body Mass Index 27.4 General: AOx3, frail, chronically-ill appearing. In no acute distress Resp: Bibasilar crackles CVS: S1, S2, RRR GI: +BS, NT, no distention Skin: Warm, dry Neuro: Cranial nerves II-XII grossly intact bilaterally. Motor grossly intact bilaterally Extremities: 2+ bilaterally pitting edema Psych: Appropriate affect Results Labs 11/06/24 11:58 11/06/24 11:58 Labs: Laboratory Results - last 24 hr 11/06/24 11/06/24 11:58 12:10 MCV 89.6 MCH 28.9 MCHC 32.3 RDW 18.6 H Plt Count 110 L MPV 10.7 Immature Gran % (Auto) 0.4 Neut % (Auto) 76.2 H Lymph % (Auto) 15.2 L [place] % (Auto) 7.0 Eos % (Auto) 1.0 Baso % (Auto) 0.2 Lymph # (Auto) 0.7 L [place] # (Auto) 0.3 Eos # (Auto) 0.1 Baso # (Auto) 0.0 Abs Immat Gran (auto) 0.02 Absolute Neuts (auto) 3.7 Absolute Nucleated RBC 0.000 Nucleated RBC % (auto) 0.0 PT 50.2 H D INR 4.4 H VBG pH 7.48 H VBG pCO2 35 VBG pO2 77 VBG HCO3 26 VBG O2 Saturation 95.0 VBG Base Excess 3.3 Anion Gap 13 Estim Creat Clear Calc 38.1 Estimated GFR 47 Random Glucose 130 H Lactic Acid 2.0 Calcium 9.1 Total Bilirubin 1.1 H Direct Bilirubin 0.5 AST 52 H ALT 25 Alkaline Phosphatase 112 Troponin I High Sens 10.7 B-Natriuretic Peptide 3252 H Total Protein 5.7 L Albumin 3.2 L Lipase 38 Influenza Type A (PCR) NEGATIVE Influenza Type B (PCR) NEGATIVE RSV RNA Qual (PCR) NEGATIVE SARS-CoV-2 RNA (RT-PCR) NEGATIVE Imaging Radiologist's Impressions: Impressions Chest X-Ray 11/06/24 11:11 IMPRESSION: Cardiomegaly, pulmonary vascular congestion, and small bilateral pleural effusions. Electronically signed by: Tae Khan MD 11/06/2024 12:30 PM EDT RP Assessment and Plan (1) CHF exacerbation: Qualifiers: Heart failure type: unspecified Qualified Code(s): I50.9 - Heart failure, unspecified Status: Resolved Plan Pt is an 84-year-old female with a PMH significant for?HFrEF (20-25% on 06/2024), s/p bioprosthetic mitral valve replacement, tricuspid valve repair, paroxysmal AFib on warfarin, s/p recent pacemaker replacement 10/08/2024 at [facility], HTN, HLD, CKD 3, and GERD who presents to the ED with?increased SOB and SUAREZ x3 days. Acute HFrEF exacerbation Pt with increased SOB, SUAREZ, LLE, CXR with pulmonary edema, elevated BNP above baseline Will treat with Lasix 40mg bid Last echo 06/2024 showing LEVF of 20-25% Follow lytes, I/O, daily weights Consider cardiology consult if does not respond well to diuresing Monitor on telemetry PT consult Elevated creatinine Creatinine 1.11, elevated from previous of 0.84 Likely cardiorenal Treat as above with Lasix Follow kidney function Paroxysmal AFib Continue carvedilol, amiodarone INR supratherapeutic at 4.4 Hold warfarin for now, resume as warranted Monitor INR daily with goal of 2.0-3.0 HLD Continue statin COPD Not in acute exacerbation Continue home inhalers GERD Continue PPI GORDON CPAP at night Full Code, verified with pt Attending:?Dr. Salvador DVT Prophylaxis: On warfarin Pt will require a hospitalization of at least two nights for treatment of acute HFrEF exacerbation. Given pt's frailty and significant comorbidities, pt is a serious risk for decompensation without hospital-level care with IV diuretics and close cardiac monitoring. Quality Stroke Does the patient have a stroke diagnosis?: No VTE Prior VTE?: No VTE Risk Level:: Medical - moderate - high VTE Device Contraindication: Treatment Not Indicated VTE Drug Contraindication: N/A - Med Ordered
[2024-11-06 14:48] LABS: Troponin-I High Sensitivity 10.9 ng/L (<3.5-17.0)
--- NOTE | 2024-11-06 14:50 | PHA.MEDREC ---
Addendum entered by Hilda oLuis RPh 11/06/24 15:49: REVIEWED BY PHARMACIST Original Note: Pharmacy Consult ? Medication Reconciliation Pharmacy has completed the medication reconciliation. Spoke to patients Daly Godfrey to confirm med list. Daly states patient is no longer taking Amlodipine 5 mg and Atenolol 50 mg *Changed to Carvedilol 12.5 mg BID*. Patient had all her morning medications today.
[2024-11-06] MEDS: carvediloL 12.5 MG TABLET PO (21:46)
[2024-11-06] MEDS: 0.9 % Sodium Chloride Flush 3 ML SYRINGE IVFLUSH (21:46)
[2024-11-07] VITALS (13 sets, daily range): BP systolic 98–113; BP diastolic 55–62; PULSE 65–87; RESP 16–18; TEMP 36.3–37.2; O2SAT 86–100; BMI 27.3; BMI 26.8
[2024-11-07] MEDS: Omeprazole 20 MG CAPSULE.DR PO ×2 (06:27→16:51)
[2024-11-07 06:58] LABS: B Type Natriuretic Peptide 3876 pg/mL (<100)
[2024-11-07 06:59] LABS: Anion Gap 12 (12-20); Blood Urea Nitrogen 20 mg/dL (9-16); Calcium 8.9 mg/dL (8.4-10.2); Carbon Dioxide 31 mmol/L (22-29); Chloride 106 mmol/L (96-108); Estimated Glomerular Filt Rate 49; Glucose Random 140 mg/dL (60-115); Sodium 145 mmol/L (135-145)
[2024-11-07] MEDS: Ipratropium Bromide 1 PUFF/17 MCG INHALER 2 PUFF INHALE ×4 (07:31→19:04)
--- NOTE | 2024-11-07 08:54 | MHC.CM.PN ---
CM met with Patient at bedside and addressed IMM with her, providing Patient with the original and a copy has been placed on the chart. Patient lives in a house with her , is active with [facility], and has CPAP from [facility] [place]. Home/resume said services is Patient's goal and CM has initiated and will follow for dc planning. PCP is Dr. Kiesha Macedo and Grandana/Jermaine will transport to home at time of dc. Daughter, Marielos is the HCP.
[2024-11-07] MEDS: carvediloL 12.5 MG TABLET PO ×2 (10:18→21:54)
[2024-11-07] MEDS: Atorvastatin Calcium 80 MG TABLET PO (10:18)
[2024-11-07] MEDS: Furosemide 40 MG TABLET PO ×2 (10:18→16:51)
[2024-11-07] MEDS: Multivitamin TABLET 1 TAB PO (10:18)
[2024-11-07] MEDS: Amiodarone HCL 200 MG TABLET PO (10:18)
[2024-11-07] MEDS: Ascorbic Acid 500 MG TABLET PO (10:18)
[2024-11-07] MEDS: Potassium Chloride ER 10 MEQ TABLET.ER 30 MEQ PO (10:18)
[2024-11-07] MEDS: 0.9 % Sodium Chloride Flush 3 ML SYRINGE IVFLUSH ×3 (10:19→21:55)
--- NOTE | 2024-11-07 11:12 | P.PNIM_ITS ---
Subjective Subjective Date of Service: 11/07/24 Interval History: improving Physical Exam 2 Vital Signs: Vital Signs: Last Vital Signs Temp 98.2 F 11/07/24 08:00 Pulse 76 11/07/24 11:08 Resp 18 11/07/24 11:08 BP 108/58 L 11/07/24 08:00 Pulse Ox 92 11/07/24 08:00 O2 Del Method Room Air 11/07/24 08:00 O2 Flow Rate 2 11/07/24 03:50 BMI result Body Mass Index 27.3 General: AO X 3, no acute distress Resp: CTA bilateral, no accessory muscles used CVS: S1,S2,RRR GI: soft, non tender, non distended Neuro: motor grossly intact, alert Psych: appropriate affect, appropriate insight Objective Data Active Medications Albuterol Sulfate (Albuterol Sulfate 90 Mcg 8 Gm Inhaler) 2 puff INHALE Q4H PRN PRN Reason: shortness of breath or wheezing Amiodarone HCl (Amiodarone Hcl 200 Mg Tablet) 200 mg PO DAILY [facility] Last Admin: 11/07/24 10:18 Dose: 200 mg Documented By: HERMELINDA Ascorbic Acid (Ascorbic Acid 500 Mg Tablet) 500 mg PO DAILY [facility] Last Admin: 11/07/24 10:18 Dose: 500 mg Documented By: HERMELINDA Aspirin (Aspirin Enteric Coated 81 Mg Tablet.) 81 mg PO DAILY [facility] Atorvastatin Calcium (Atorvastatin Calcium 80 Mg Tablet) 80 mg PO DAILY [facility] Last Admin: 11/07/24 10:18 Dose: 80 mg Documented By: HERMELINDA Calcium Carbonate (Calcium Carbonate 750 Mg Tab.Chew) 750 mg PO Q4H PRN PRN Reason: Heartburn Carvedilol (Carvedilol 12.5 Mg Tablet) 12.5 mg PO BID [facility]; Protocol Last Admin: 11/07/24 10:18 Dose: 12.5 mg Documented By: HERMELINDA Furosemide (Furosemide 40 Mg Tablet) 40 mg PO BID@0900,1800 [facility]; Protocol Last Admin: 11/07/24 10:18 Dose: 40 mg Documented By: HERMELINDA Ipratropium Nome (Ipratropium Nome 1 Puff/17 Mcg Inhaler) 2 puff INHALE RQID [facility] Last Admin: 11/07/24 11:08 Dose: 2 puff Documented By: REIC Magnesium Hydroxide (Milk Of Magnesia 30 Ml Oral.Susp) 30 ml PO DAILY PRN PRN Reason: Constipation Melatonin (Melatonin 3 Mg Tablet) 6 mg PO BEDTIME PRN PRN Reason: Insomnia Multivitamins/Vitamin C (Multivitamin Tablet) 1 tab PO DAILY [facility] Last Admin: 11/07/24 10:18 Dose: 1 tab Documented By: HERMELINDA Omeprazole (Omeprazole 20 Mg Capsule.Dr) 20 mg PO BID@0630,1630 [facility] Last Admin: 11/07/24 06:27 Dose: 20 mg Documented By: NEAL Potassium Chloride (Potassium Chloride Er 10 Meq Tablet.Er) 30 meq PO DAILY [facility] Last Admin: 11/07/24 10:18 Dose: 30 meq Documented By: HERMELINDA Sodium Chloride (0.9 % Sodium Chloride Flush 3 Ml Syringe) 3 ml IVFLUSH QSHIFT [facility] Last Admin: 11/07/24 10:19 Dose: 3 ml Documented By: HERMELINDA Labs 11/06/24 11:58 11/07/24 05:24 Labs: Laboratory Results - last 24 hr 11/06/24 11/06/24 11/06/24 11:58 12:10 14:19 MCV 89.6 MCH 28.9 MCHC 32.3 RDW 18.6 H Plt Count 110 L MPV 10.7 Immature Gran % (Auto) 0.4 Neut % (Auto) 76.2 H Lymph % (Auto) 15.2 L [place] % (Auto) 7.0 Eos % (Auto) 1.0 Baso % (Auto) 0.2 Lymph # (Auto) 0.7 L [place] # (Auto) 0.3 Eos # (Auto) 0.1 Baso # (Auto) 0.0 Abs Immat Gran (auto) 0.02 Absolute Neuts (auto) 3.7 Absolute Nucleated RBC 0.000 Nucleated RBC % (auto) 0.0 PT 50.2 H D INR 4.4 H VBG pH 7.48 H VBG pCO2 35 VBG pO2 77 VBG HCO3 26 VBG O2 Saturation 95.0 VBG Base Excess 3.3 Anion Gap 13 Estim Creat Clear Calc 38.1 Estimated GFR 47 Random Glucose 130 H Lactic Acid 2.0 Calcium 9.1 Magnesium Total Bilirubin 1.1 H Direct Bilirubin 0.5 AST 52 H ALT 25 Alkaline Phosphatase 112 Troponin I High Sens 10.7 10.9 B-Natriuretic Peptide 3252 H Total Protein 5.7 L Albumin 3.2 L Lipase 38 Influenza Type A (PCR) NEGATIVE Influenza Type B (PCR) NEGATIVE RSV RNA Qual (PCR) NEGATIVE SARS-CoV-2 RNA (RT-PCR) NEGATIVE 11/07/24 05:24 MCV MCH MCHC RDW Plt Count MPV Immature Gran % (Auto) Neut % (Auto) Lymph % (Auto) [place] % (Auto) Eos % (Auto) Baso % (Auto) Lymph # (Auto) [place] # (Auto) Eos # (Auto) Baso # (Auto) Abs Immat Gran (auto) Absolute Neuts (auto) Absolute Nucleated RBC Nucleated RBC % (auto) PT INR VBG pH VBG pCO2 VBG pO2 VBG HCO3 VBG O2 Saturation VBG Base Excess Anion Gap 12 Estim Creat Clear Calc 39.0 Estimated GFR 49 Random Glucose 140 H Lactic Acid Calcium 8.9 Magnesium 2.0 Total Bilirubin Direct Bilirubin AST ALT Alkaline Phosphatase Troponin I High Sens B-Natriuretic Peptide 3876 H Total Protein Albumin Lipase Influenza Type A (PCR) Influenza Type B (PCR) RSV RNA Qual (PCR) SARS-CoV-2 RNA (RT-PCR) Assessment and Plan (1) HFrEF (heart failure with reduced ejection fraction): Status: Acute Plan 84F PMH chronic systolic CHF, paroxysmal AFib, recent pacer, hypertension, hyperlipidemia, CKD 3, GERD presented with sob Acute on chronic systolic CHF Continue IV Lasix, monitor electrolytes PT eval Paroxysmal AFib Supratherapeutic INR Monitor INR, continue warfarin, carvedilol, amiodarone Hyperlipidemia Statin COPD Inhalers GERD PPI GORDON CPAP Full code reason for continued hospitalization: IV diuresis Quality Stroke Does the patient have a stroke diagnosis?: No VTE Prior VTE?: No VTE Risk Level:: Medical - moderate - high VTE Device Contraindication: Treatment Not Indicated VTE Drug Contraindication: N/A - Med Ordered
[2024-11-08 03:21] VITALS: BP 106/59; PULSE 72; RESP 18; TEMP 36.5; O2SAT 100
[2024-11-08 05:51] VITALS: BMI 27.6
[2024-11-08] MEDS: Omeprazole 20 MG CAPSULE.DR PO (06:19)
[2024-11-08 07:03] LABS: Hematocrit 36.3 % (37.0-47.0); Hemoglobin 11.4 g/dl (12.0-16.0); Mean Corpuscular HGB Conc 31.4 g/dl (31.0-35.0); Mean Corpuscular Hemoglobin 28.7 pg (27.0-33.0); Mean Corpuscular Volume 91.4 fL (80.0-98.0); Mean Platelet Volume 11.4 fL (9.4-12.3); Platelet Count 123 X10*3/uL (160-400); Red Blood Count 3.97 X10*6/uL (4.20-5.50); Red Cell Distribution Width 18.2 % (11.0-16.0); White Blood Count 3.6 X10*3/uL (4.8-10.8)
[2024-11-08 07:10] LABS: INTERNATIONAL NORM RATIO 4.3 (0.9-1.1); Prothrombin Time 49.2 SEC (10.9-12.4)
[2024-11-08 07:18] LABS: Anion Gap 13 (12-20); Blood Urea Nitrogen 21 mg/dL (9-16); Calcium 8.8 mg/dL (8.4-10.2); Carbon Dioxide 35 mmol/L (22-29); Chloride 104 mmol/L (96-108); Creatinine Clr Calc Pharmacy 40.8; Estimated Glomerular Filt Rate 51; Glucose Random 97 mg/dL (60-115); Magnesium 1.9 mg/dL (1.6-2.6); Potassium 3.6 mmol/L (3.3-5.1); Sodium 148 mmol/L (135-145)
[2024-11-08 07:31] VITALS: BP 108/55; PULSE 65; RESP 16; TEMP 36; O2SAT 100
[2024-11-08 07:37] VITALS: PULSE 60; RESP 18; O2SAT 100
[2024-11-08] MEDS: Ipratropium Bromide 1 PUFF/17 MCG INHALER 2 PUFF INHALE ×2 (07:37→11:07)
[2024-11-08] MEDS: Multivitamin TABLET 1 TAB PO (08:06)
[2024-11-08] MEDS: Potassium Chloride ER 10 MEQ TABLET.ER 30 MEQ PO (08:06)
[2024-11-08] MEDS: Dextrose 5 % 1,000 ML 100 ML IVCONT (08:07)
[2024-11-08] MEDS: carvediloL 12.5 MG TABLET PO (08:07)
[2024-11-08] MEDS: Ascorbic Acid 500 MG TABLET PO (08:07)
[2024-11-08] MEDS: Amiodarone HCL 200 MG TABLET PO (08:07)
[2024-11-08] MEDS: Furosemide 40 MG TABLET PO (08:07)
[2024-11-08] MEDS: 0.9 % Sodium Chloride Flush 3 ML SYRINGE IVFLUSH (08:07)
[2024-11-08] MEDS: Atorvastatin Calcium 80 MG TABLET PO (08:07)
--- NOTE | 2024-11-08 09:27 | PM.DS ---
DS: Providers Provider Date of Service: 11/08/24 Date of admission: 11/06/24 13:38 Date of discharge: 11/08/24 Primary care physician: Kiesha Macedo MD Consults: 11/06/24 18:56 Consult to Wound Care Routine Reason for consultation: BLE edematous, RLE kerlix wrap/ weeping Has provider been notified: Yes DS: Diagnosis Discharge Diagnosis (1) HFrEF (heart failure with reduced ejection fraction): Status: Acute DS: Summary Hospital Course Hospital Course: from initial hpi: 84-year-old female with a PMH significant for?HFrEF (20-25% on 06/2024), s/p bioprosthetic mitral valve replacement, tricuspid valve repair, paroxysmal AFib on warfarin, s/p recent pacemaker replacement 10/08/2024 at [facility], HTN, HLD, CKD 3, and GERD who presents to the ED with?increased SOB and SUAREZ x3 days. Today symptoms worsened and pt reports worn her CPAP all morning. [place] lightheaded and wobbly when walking. Denies fever, chills. No cough. No orthopnea. Denies chest pain/pressure, or palpitations. No N/V/D. In the ED pt was tachypneic up to 22, and slightly soft BP of 118/52, satting at 97% on RA. Labs were significant for INR 4.4, creatinine 1.11 (previous 0.84), AST 52, and BNP 3252 (previous 1190). No leukocytosis. Stable H&H. No significant electrolyte abnormalities. Serial troponins flat at 10.7 and 10.9. Tested negative for flu, COVID, RSV. CXR showed cardiomegaly, pulmonary vascular congestion, and small bilateral pleural effusions. EKG demonstrated ventricular paced rhythm. Pt was treated in the ED with DuoNebs and Lasix 40 mg IV. Pt is admitted to the hospital for treatment and further evaluation of acute HFrEF exacerbation. hospital course: Patient was admitted for acute on chronic systolic CHF. Was treated with IV Lasix and symptoms improved. We will transitioned back to p.o. Lasix. Course complicated by acute hypernatremia, given D5W and p.o. fluids encouraged. She will follow up labs later this week. For paroxysmal AFib with supratherapeutic INR warfarin was held was continued on Coreg and amiodarone. For hyperlipidemia continued on statin. For COPD continued with inhalers. For GERD continue PPI. For GORDON continue CPAP. Patient will be discharged home with VNA Time Attestation Discharge Coordination Time (in mins): 33 Quality: Safe Use of Opioids Does Pt have an Active Cancer Diagnosis on the Problem List?: No Quality: Stroke Does the patient have a stroke diagnosis?: No Physical Exam Vital Signs: Vital Signs: Last Vital Signs Temp 96.8 F 11/08/24 07:31 Pulse 60 11/08/24 07:37 Resp 18 11/08/24 07:37 BP 108/55 L 11/08/24 07:31 Pulse Ox 100 11/08/24 07:31 O2 Del Method Nasal Cannula 11/08/24 07:31 O2 Flow Rate 2 11/08/24 07:31 BMI result Body Mass Index 27.6 General: AO X 3, no acute distress Resp: CTA bilateral, no accessory muscles used CVS: S1,S2,RRR GI: soft, non tender, non distended Neuro: motor grossly intact, alert Psych: appropriate affect, appropriate insight DS: Data Data Completed and Pending Completed studies during hospitalization [Text1]: Procedures Assistance with Respiratory Ventilation, Less than 24 Consecutive Hours, Continuous Positive Airway Pressure (10/07/22) Dilation of Right Ureter with Intraluminal Device, Via Natural or Artificial Opening Endoscopic (11/26/23) Fluoroscopy of Right Kidney, Ureter and Bladder (11/26/23) Labs on day of discharge: Laboratory Results - last 24 hr 11/08/24 06:35 WBC 3.6 L RBC 3.97 L Hgb 11.4 L Hct 36.3 L MCV 91.4 MCH 28.7 MCHC 31.4 RDW 18.2 H Plt Count 123 L MPV 11.4 Absolute Nucleated RBC 0.000 Nucleated RBC % (auto) 0.0 PT 49.2 H INR 4.3 H Sodium 148 H Potassium 3.6 Chloride 104 Carbon Dioxide 35 H Anion Gap 13 BUN 21 H Creatinine 1.04 Estim Creat Clear Calc 40.8 Estimated GFR 51 Random Glucose 97 Calcium 8.8 Magnesium 1.9 Discharge Plan Discharge Anticipated Discharge Date/Time: 11/08/24 09:25 Patient Disposition: Home Health Service Discharge Diagnosis: chf Referrals: Kiesha Macedo MD [Primary Care Provider] - 1 Week Discharge Medications: Continued atorvastatin 80 mg tablet 80 mg PO DAILY Qty: 90 3RF potassium chloride 20 mEq tablet,ER particles/crystals 30 meq PO DAILY Qty: 135 1RF albuterol sulfate 90 mcg/actuation HFA aerosol inhaler 2 puff inhalation Q4-6H PRN (Reason: shortness of breath or wheezing) Qty: 8.5 3RF carvedilol 12.5 mg tablet 12.5 mg PO BID Qty: 180 1RF Rx Instructions: must administer with a meal/food warfarin 2.5 mg tablet 2.5 mg PO .COMPLEX Qty: 90 3RF Protocol: Dose Management Condition: Saturday (Week One) Dose/Route: 2.5 mg Instruction: 1 x 2.5 mg tablet Condition: Saturday Dose/Route: 1.25 mg Instruction: 0.5 x 2.5 mg tablets Condition: Saturday Dose/Route: 2.5 mg Instruction: 1 x 2.5 mg tablet Condition: Saturday Dose/Route: 1.25 mg Instruction: 0.5 x 2.5 mg tablets Condition: Dose/Route: 2.5 mg Instruction: 1 x 2.5 mg tablet Condition: Saturday Dose/Route: 1.25 mg Instruction: 0.5 x 2.5 mg tablets Condition: Saturday Dose/Route: 0 mg Instruction: 0 tablets Condition: Saturday (Week Two) Dose/Route: 1.25 mg Instruction: 0.5 x 2.5 mg tablets Condition: Saturday Dose/Route: 2.5 mg Instruction: 1 x 2.5 mg tablet Condition: Saturday Dose/Route: 1.25 mg Instruction: 0.5 x 2.5 mg tablets Condition: Saturday Dose/Route: 1.25 mg Instruction: 0.5 x 2.5 mg tablets Condition: Dose/Route: 2.5 mg Instruction: 1 x 2.5 mg tablet Condition: Saturday Dose/Route: 1.25 mg Instruction: 0.5 x 2.5 mg tablets Condition: Saturday Dose/Route: 1.25 mg Instruction: 0.5 x 2.5 mg tablets Protocol Text: Adjustment Start Date: Saturday10/30/24 INR Value: 3.6 INR Date: 10/30/24 Recheck Date: 11/06/24 Rx Instructions: 2.5 mg orally 2.5MG DAILY WHILE RECOVERING MAY NEED DOSE ADJUSTMENTS; furosemide [Lasix] 40 mg tablet 40 mg PO DAILY Qty: 90 1RF omeprazole 20 mg capsule,delayed release(DR/EC) 20 mg PO BID Qty: 180 3RF vitamin B complex Tablet 1 tab PO DAILY Atrovent HFA 17 mcg/actuation HFA aerosol inhaler 2 puff INHALATION QID ascorbate calcium (vitamin C) 500 mg tablet 500 mg PO DAILY zinc gluconate 50 mg tablet 50 mg PO DAILY vzoxdruovjvf-Ve-pmsj-minerals Tablet 1 tab PO DAILY aspirin [Noel Low Dose Aspirin] 81 mg tablet,delayed release (DR/EC) 81 mg PO DAILY acetaminophen 325 mg capsule 650 mg PO Q8H PRN (Reason: Pain) amiodarone 200 mg tablet 200 mg PO DAILY Discharge Orders: Discharge Order (Routine); Ordered 11/08/24 Ordered By: Vito Salvador Diet: Advance to usual diet Activity on Discharge: As tolerated Stand Alone Forms: Patient Portal Discharge page Print Language: Tamazight Other Ambulatory Orders: Basic Metabolic Panel (Routine) Timeframe: 3 Days Facility: [facility] - Location: Laboratory Ordered By: Vito Salvador Care Plan Goals: Recovery Health Concerns: Chf Plan of Treatment: follow up with cardiology Assessment: see above
--- NOTE | 2024-11-08 09:59 | MHC.CM.PN ---
Patient has been medically cleared for dc to home today, with services. Patient is active with [facility], who has been made aware of today's dc. Last IMM addressed yesterday.
[2024-11-08 11:08] VITALS: PULSE 69; RESP 18; O2SAT 97
[2024-11-08 11:46] VITALS: BP 98/54; PULSE 69; RESP 18; TEMP 36.8; O2SAT 95
[2024-11-08 12:36] LABS: Sodium 142 mmol/L (135-145)
== END 2024-11-08 15:07 | disposition home health service (06) | DRG 291 ==
LOC: HO.ED 13:34 → HO.EDOVER 13:47 → HO.IMC 16:50
PROVIDERS: Admitting Provider Student in an Organized Health Care Education/Training Program; Emergency Provider Emergency Medicine; PCP Internal Medicine; Visit Provider Internal Medicine
DX: I13.0 Hypertensive heart and chronic kidney disease with heart failure and stage 1 through stage 4 chronic kidney disease, or unspecified chronic kidney disease (principal); I50.23 Acute on chronic systolic (congestive) heart failure; Z95.2 Presence of prosthetic heart valve; J44.9 Chronic obstructive pulmonary disease, unspecified; K21.9 Gastro-esophageal reflux disease without esophagitis; G47.33 Obstructive sleep apnea (adult) (pediatric); I48.0 Paroxysmal atrial fibrillation; N18.30 Chronic kidney disease, stage 3 unspecified; E78.5 Hyperlipidemia, unspecified; Z95.0 Presence of cardiac pacemaker; R79.1 Abnormal coagulation profile; Z20.822 Contact with and (suspected) exposure to COVID-19; Z79.01 Long term (current) use of anticoagulants; Z79.899 Other long term (current) drug therapy
CPT/HCPCS: 0241U; 36415; 71046; 80048; 80076; 82803; 83605; 83690; 83735; 83880; 84295; 84484; 85025; 85027; 85610; 93005; 94640; 97161; 99285; J1938

== ENCOUNTER → 2024-11-06 11:11 | Outpatient (BNV) | payer MEDICARE, BC, SELFPAY | PROVIDERS: Emergency Provider Emergency Medicine; PCP Internal Medicine; Visit Provider Radiology Diagnostic Radiology | DX: I51.7 Cardiomegaly (principal) | CPT/HCPCS: 71046 ==

== ENCOUNTER → 2024-11-06 11:11 | Outpatient (BNV) | payer MEDICARE, BC, SELFPAY | PROVIDERS: Admitting Provider Student in an Organized Health Care Education/Training Program; Emergency Provider Emergency Medicine; PCP Internal Medicine; Visit Provider Internal Medicine | DX: R94.31 Abnormal electrocardiogram [ECG] [EKG] (principal); Z95.0 Presence of cardiac pacemaker | CPT/HCPCS: 93010 ==

== ENCOUNTER → 2024-11-06 13:38 | Outpatient (BNV) | payer MEDICARE, BC, SELFPAY | PROVIDERS: Admitting Provider Student in an Organized Health Care Education/Training Program; Emergency Provider Emergency Medicine; PCP Internal Medicine; Visit Provider Student in an Organized Health Care Education/Training Program | DX: I50.9 Heart failure, unspecified (principal); I50.20 Unspecified systolic (congestive) heart failure | CPT/HCPCS: 99223; 99232; 99239 ==

== ENCOUNTER → 2024-11-09 15:57 | Outpatient (BNVA) | payer MEDICARE, BC, SELFPAY | PROVIDERS: PCP Internal Medicine; Visit Provider Internal Medicine Medical Oncology | DX: Z13.89 Encounter for screening for other disorder (principal) ==

== ENCOUNTER → 2024-11-10 11:04 | Outpatient (BNVA) | payer MEDICARE, BC, SELFPAY | PROVIDERS: PCP Internal Medicine; Visit Provider Internal Medicine Medical Oncology | DX: Z13.89 Encounter for screening for other disorder (principal) ==

== ENCOUNTER 2024-11-12 12:04 | Outpatient (REF) | payer MEDICARE, BC, SELFPAY ==
[2024-11-12 13:05] LABS: Anion Gap 13 (12-20); Blood Urea Nitrogen 17 mg/dL (9-16); Carbon Dioxide 32 mmol/L (22-29); Chloride 104 mmol/L (96-108); Estimated Glomerular Filt Rate > 60; Glucose Random 88 mg/dL (60-115); Potassium 3.7 mmol/L (3.3-5.1); Sodium 145 mmol/L (135-145)
--- OUTSIDE RECORDS SUMMARY | 2024-11-12 14:09 | XMS_ITS | Clinical Summary ---
Author Organization [facility] Facility Address [address] [address] Care Team Providers Care Embossing Clerk Name Role Phone Kiesha Macedo MD Primary Care Provider [phone] Social History Tobacco Use Types Packs/Day Years [...] to complete this topic Insurance Medicare [facility] Medicare [facility] Care Teams Embossing Clerk Relationship Specialty Start Date End Date Kiesha Macedo MD 1959 [place], [place] PCP - General Internal Medicine 08/29/22
== END 2024-11-12 12:05 | disposition home or self-care (01) ==
LOC: HO.HVNA 12:04
PROVIDERS: Visit Provider Internal Medicine
DX: I13.0 Hypertensive heart and chronic kidney disease with heart failure and stage 1 through stage 4 chronic kidney disease, or unspecified chronic kidney disease (principal)
CPT/HCPCS: 36415; 80048

== ENCOUNTER → 2024-11-19 11:10 | Outpatient (BNVA) | payer MEDICARE, BC, SELFPAY | PROVIDERS: PCP Internal Medicine; Visit Provider Internal Medicine Medical Oncology | DX: I48.0 Paroxysmal atrial fibrillation (principal); Z79.01 Long term (current) use of anticoagulants; Z51.81 Encounter for therapeutic drug level monitoring | CPT/HCPCS: 99495 ==

== ENCOUNTER 2024-11-19 12:04 | Outpatient (AMB) | payer MEDICARE, BC, SELFPAY ==
[2024-11-19 12:08] VITALS: BP 96/60; PULSE 92; RESP 18; TEMP 36.4; O2SAT 100
--- NOTE | 2024-11-19 12:08 | A.OFFPC_ITS ---
Vital Signs 11/19/24 12:08 Height 5 ft 4 in BMI Reason not done Patient refused/unable BP 96/60 Blood Pressure Location Lt brachial Position Sitting Respiration 18 Pulse 92 Pulse Source Pulse Oximeter Temp 97.6 F Temp Source Oral Pulse Oximetry (%) 100 Oxygen Delivery Method Room Air Intake Visit Reasons: TCM Intake Note: Pt is here today for TCM. Pt's grandson states that pt had SOB this morning. Allergies acetaminophen (From Vicodin) Allergy (Intermediate, Verified 11/19/24 12:13) per patient hydrocodone (From Vicodin) Allergy (Mild, Verified 11/19/24 12:13) CHEST PAIN Tobacco use date assessed: 08/27/24 Dental Screening Dental Screen Date: 08/04/24 HPI TCM HPI Details Patient presents for TCM after hospitalization at [facility] for exacerbation of heart failure with reduced ejection fraction discharged on 11/06. Patient was treated with intravenous furosemide with good diuresis and improvement in shortness or breath. Patient underwent pacemaker change to MORTAR MAKER-D in mid October at [facility]. Patient has not noticed any improvement with her baseline shortness or breath PND orthopnea since the replacement. She has been having increasing lower extremity swelling and recurrent ulcers on the right lower extremity. She is established with [facility] and has been wrapping her lower extremities. Patient remains in normal sinus rhythm controlled on amiodarone and anticoagulated on Coumadin. Patient has an appointment with her supplier relationship director Dr. Khoury in 2 weeks TCM TCM Information Date of Discharge 11/08/24 Discharged From [facility] Interactive Contact Date (Reference documentation from this date) 11/09/24 [facility] Medical History (Updated 11/19/24 @ 13:14 by Kiesha Macedo MD) HFrEF (heart failure with reduced ejection fraction) Chronic atrial fibrillation Chronic anticoagulation Obesity CKD (chronic kidney disease) stage 3, GFR 30-59 ml/min Nephrolithiasis, uric acid Hyperlipidemia HTN (hypertension) A-fib GORDON (obstructive sleep apnea) COPD (chronic obstructive pulmonary disease) Pulmonary HTN Severe mitral regurgitation Thiamine deficiency Osteoporosis Surgical History Hx of hernia repair History of open reduction and internal fixation (ORIF) procedure Family History Father No problems noted. Mother No problems noted. Maternal Aunt Breast cancer Social History Household Members: Spouse Housing: House Do you presently have visiting nurse or other home services: No Alcohol intake: never Patient Tobacco Use Status: Former Tobacco user Tobacco use type: Cigarette e-Cigarette/Vaping Use: Never Used Second Hand Smoke Exposure: No Advance Directives Date on File: 11/28/23 service: No Current occupational status: retired Cognitive needs: No Hearing needs: No Vision needs: No Questionnaire Thrive Questionnaire Date Thrive assessed: 11/07/24 I am a: Patient What is your living situation today?: I choose not to answer this question Within the past 12 months, did the food you bought not last and you didn't have the money to get more?: I choose not to answer this question Within the past 12 months, did you worry whether your food would run out before you got money to buy more?: I choose not to answer this question Do you have trouble paying for medicines?: I choose not to answer this question Do you have trouble getting transportation to medical appointments?: I choose n ot to answer this question Do you have trouble paying your heating and electricity bill?: I choose not to answer this question Do you have trouble taking care of your child, family member or friend?: I choose not to answer this question Do you have trouble with day-to-day activities such as bathing, preparing meals, shopping, managing finances, etc.?: I choose not to answer this question Are you currently unemployed and looking for a job?: I choose not to answer this question Are you interested in more education?: I choose not to answer this question Please select the resources that you would like help with: None Currently or been in a relationship where the following occur: I choose not to answer THRIVE Score: 0 ADRIAN-7 AMB Questionnaire ADRIAN-7 Date ADRIAN - 7 assessed: 08/04/24 Source: Developed by Drs. Tae Valentine, Becca Olivia, Silviano Stallings and colleagues, with an educational lauryn from [employer] Review of Systems Const All systems reviewed & are unremarkable except as noted in HPI and below Eyes Reports no additional complaints ENT Reports no additional complaints Card Reports no additional complaints Resp Reports no additional complaints GI Reports no additional complaints Reports no additional complaints Physical exam (Primary Care) Vital Signs: Last Vital Signs Temp 97.6 F 11/19/24 12:08 Pulse 92 11/19/24 12:08 Resp 18 11/19/24 12:08 BP 96/60 11/19/24 12:08 Pulse Ox 100 11/19/24 12:08 Oxygen Delivery Method Room Air 11/19/24 12:08 Tobacco/Smoking Status: Tobacco use Status Tobacco use date assessed 08/27/24 11/19/24 12:09 Patient Tobacco Use Status Former Tobacco user 11/19/24 12:09 Tobacco use type Cigarette 11/19/24 12:09 e-Cigarette/Vaping Use Never Used 11/19/24 12:09 Thrive Assessment: Date of Thrive Assessment Date Thrive assessed 11/07/24 11/19/24 12:09 Currently or been in a relationship where the following occur: I choose not to answer Const General: no acute distress HENMT Head: Yes normal to inspection Face and sinus: Yes normal facial exam Neck Neck: Yes supple Resp Auscultation: rales bilateral 1/[address] up and diminished lung sounds Cardio Rhythm: regular rhythm Heart sounds: S1 normal heart sound present and S2 normal heart sound present Extrem Other: 1+ pitting edema bilaterally Results AMB INR Fingerstick AMB INR Fingerstick 1.9 Last Edit by Yolis Mendez RN on 11/19/24 11:15 MANUAL ENTRY Coding Level of Care Code TCM High MDM <= 14 days Diagnoses HFrEF (heart failure with reduced ejection fraction) I50.20 A-fib I48.91 CKD (chronic kidney disease) stage 3, GFR 30-59 ml/min N18.30 Assessment & Plan Assessment & Plan (1) HFrEF (heart failure with reduced ejection fraction): Comment: Cardiology [facility] Dr. Khoury, , Echo 10/2022 global left ventricular hypokinesis ejection fraction 40%, severe decreased function of right ventricle, Echo 06/2024 EF 20%-25%, started on amiodarone and scheduled for cardioversion, status post pacemaker update to MORTAR MAKER-D 10/2024 Code(s): I50.20 - Unspecified systolic (congestive) heart failure Category: Medical Plan: Continue current medications. Patient was advised to monitor her weight daily and for increase the weight by 2 lb she was advised to take an extra 20 mg of furosemide. Patient was advised to take extra 20 mg of furosemide for 3 days and check basic metabolic panel in 1 week. She has an appointment with a supplier relationship director in 2 weeks (2) A-fib: Comment: Rhythm controlled on amiodarone, anticoagulated on warfarin Follows up with Cardiology Dr. Khoury Code(s): I48.91 - Unspecified atrial fibrillation Category: Medical Plan: On amiodarone and warfarin follow-up with the Cardiology (3) CKD (chronic kidney disease) stage 3, GFR 30-59 ml/min: Code(s): N18.30 - Chronic kidney disease, stage 3 unspecified Category: Medical Plan: Avoid nephrotoxins monitor renal function Orders: Orders B Type Natriuretic Peptide 1 Week I50.9 - Heart failure, unspecified Basic Metabolic Panel 1 Week I50.9 - Heart failure, unspecified
== END 2024-11-19 13:08 | disposition home or self-care (01) ==
LOC: HO.HMCC 12:05
PROVIDERS: PCP Internal Medicine; Visit Provider Internal Medicine
DX: I50.20 Unspecified systolic (congestive) heart failure (principal); I48.91 Unspecified atrial fibrillation; N18.30 Chronic kidney disease, stage 3 unspecified

== ENCOUNTER → 2024-11-25 13:51 | Outpatient (BNVA) | payer MEDICARE, BC, SELFPAY | PROVIDERS: PCP Internal Medicine; Visit Provider Internal Medicine Medical Oncology | DX: Z13.89 Encounter for screening for other disorder (principal) ==

== ENCOUNTER 2024-12-07 11:33 | Inpatient (IN) | payer MEDICARE, BC, SELFPAY ==
[2024-12-07] VITALS (9 sets, daily range): BP systolic 106–114; BP diastolic 54–67; PULSE 67–84; RESP 16–21; TEMP 36.3–36.8; O2SAT 93–98; BMI 29.3; BMI 27.9
--- NOTE | ~2024-12-07 | XR_ITS ---
EXAMINATION: XR CHEST CLINICAL INFORMATION: SOB COMPARISON: Prior day. 07/01/2023. TECHNIQUE: 2 views of the chest were obtained. FINDINGS: Left-sided AICD device in place with leads extending into the right ventricle, right atrium, and coronary sinus. There is moderate cardiomegaly. There is been a prior median sternotomy and mitral valve replacement. Aortic mural calcification. Vascular engorgement of the hilar regions bilaterally. Lungs demonstrate mild to moderate interstitial pulmonary edema, with small layering effusions and associated bibasilar atelectatic changes. No definite pneumothorax within confines of the patient's chin obscuring the medial apices. There is no focal osseous or soft tissue abnormality. There are cholecystectomy clips. There are degenerative changes throughout the spine and bilateral shoulder joints. Exaggerated thoracic kyphosis. XR/XR chest 2V IMPRESSION: No significant interval change from the prior day. Cardiomegaly, pulmonary vascular congestion, interstitial pulmonary edema, and small bilateral pleural effusions. Electronically signed by: He Hernandez MD 12/07/2024 01:39 PM EDT
--- NOTE | 2024-12-07 11:42 | ED.GENADULT ---
HPI - General Adult General Stated complaint: SOB Related Data Home Medications ?Medication ?Instructions ?Recorded ?Confirmed ascorbate calcium (vitamin C) 500 500 mg PO DAILY 01/04/23 11/19/24 mg tablet aspirin 81 mg tablet,delayed 81 mg PO DAILY 01/04/23 11/19/24 release (Noel Low Dose Aspirin) dfywtpvoxare-Ms-mrmt-minerals 1 tab PO DAILY 01/04/23 11/19/24 zinc gluconate 50 mg tablet 50 mg PO DAILY 01/04/23 11/19/24 vitamin B complex 1 tab PO DAILY 11/26/23 11/19/24 acetaminophen 325 mg capsule 650 mg PO Q8H PRN Pain 01/20/24 11/19/24 amiodarone 200 mg tablet 200 mg PO DAILY 07/27/24 11/19/24 ipratropium bromide 17 2 puff inhalation QID 11/06/24 11/19/24 mcg/actuation HFA aerosol inhaler (Atrovent HFA) Previous Rx's ?Medication ?Instructions ?Recorded atorvastatin 80 mg tablet 80 mg PO DAILY #90 tabs 04/01/24 albuterol sulfate 90 mcg/actuation 2 puff inhalation Q4-6H PRN 06/30/24 aerosol inhaler shortness of breath or wheezing #8.5 grams potassium chloride 20 mEq 30 meq (1.5 x 20 mEq) PO DAILY 06/30/24 tablet,extended release(part/cryst) #135 tabs carvedilol 12.5 mg tablet 12.5 mg PO BID #180 tabs 07/30/24 warfarin 2.5 mg tablet 2.5 mg PO .COMPLEX #90 tabs 07/30/24 furosemide 40 mg tablet (Lasix) 40 mg PO DAILY #90 tabs 10/28/24 omeprazole 20 mg capsule,delayed 20 mg PO BID #180 caps 10/28/24 release Allergies Allergy/AdvReac Type Severity Reaction Status Date / Time acetaminophen (From Vicodin) Allergy Intermediate per patient Verified 12/02/24 11:41 hydrocodone (From Vicodin) Allergy Mild CHEST PAIN Verified 12/02/24 11:41 [facility] Past Medical History Medical History (Updated 11/19/24 @ 13:14 by Kiesha Macedo MD) HFrEF (heart failure with reduced ejection fraction) Chronic atrial fibrillation Chronic anticoagulation Obesity CKD (chronic kidney disease) stage 3, GFR 30-59 ml/min Nephrolithiasis, uric acid Hyperlipidemia HTN (hypertension) A-fib GORDON (obstructive sleep apnea) COPD (chronic obstructive pulmonary disease) Pulmonary HTN Severe mitral regurgitation Thiamine deficiency Osteoporosis Surgical History Hx of hernia repair History of open reduction and internal fixation (ORIF) procedure Family History Family History Father No problems noted. Mother No problems noted. Maternal Aunt Breast cancer Social History Social History Household Members: Spouse Housing: House Do you presently have visiting nurse or other home services: No Alcohol intake: never Patient Tobacco Use Status: Former Tobacco user Tobacco use type: Cigarette e-Cigarette/Vaping Use: Never Used Second Hand Smoke Exposure: No Advance Directives Date on File: 11/28/23 service: No Current occupational status: retired Cognitive needs: No Hearing needs: No Vision needs: No Course Course Course Narrative: This is an RME performed by Javed Carter CNP: Additional HPI, ROS, PE not included below will be deferred to primary provider. Patient is an 84-year-old female who presents emergency department with her grandson for evaluation. Patient follows with [facility], reports 20% EF, 1 week ago had furosemide doubled from 20 mg to 40 mg due to weight increase; 12lbs in 1 month, over the past week has additionally gained 1.8 lb despite the dosage increase. Patient endorses shortness of breath, dyspnea on exertion, weakness, denies CP. Plan: Serum labs, ECG, CXR Discharge Plan Discharge Prescriptions: No Action atorvastatin 80 mg tablet 80 mg PO DAILY Qty: 90 3RF potassium chloride 20 mEq tablet,ER particles/crystals 30 meq PO DAILY Qty: 135 1RF albuterol sulfate 90 mcg/actuation HFA aerosol inhaler 2 puff inhalation Q4-6H PRN (Reason: shortness of breath or wheezing) Qty: 8.5 3RF carvedilol 12.5 mg tablet 12.5 mg PO BID Qty: 180 1RF Rx Instructions: must administer with a meal/food warfarin 2.5 mg tablet 2.5 mg PO .COMPLEX Qty: 90 3RF Protocol: Dose Management Condition: Saturday (Week One) Dose/Route: 2.5 mg Instruction: 1 x 2.5 mg tablet Condition: Saturday Dose/Route: 1.25 mg Instruction: 0.5 x 2.5 mg tablets Condition: Saturday Dose/Route: 2.5 mg Instruction: 1 x 2.5 mg tablet Condition: Saturday Dose/Route: 1.25 mg Instruction: 0.5 x 2.5 mg tablets Condition: Dose/Route: 2.5 mg Instruction: 1 x 2.5 mg tablet Condition: Saturday Dose/Route: 1.25 mg Instruction: 0.5 x 2.5 mg tablets Condition: Saturday Dose/Route: 1.25 mg Instruction: 0.5 x 2.5 mg tablets Condition: Saturday ( Two) Dose/Route: 2.5 mg Instruction: 1 x 2.5 mg tablet Condition: Saturday Dose/Route: 1.25 mg Instruction: 0.5 x 2.5 mg tablets Condition: Saturday Dose/Route: 2.5 mg Instruction: 1 x 2.5 mg tablet Condition: Saturday Dose/Route: 1.25 mg Instruction: 0.5 x 2.5 mg tablets Condition: Dose/Route: 2.5 mg Instruction: 1 x 2.5 mg tablet Condition: Saturday Dose/Route: 1.25 mg Instruction: 0.5 x 2.5 mg tablets Condition: Saturday Dose/Route: 1.25 mg Instruction: 0.5 x 2.5 mg tablets Protocol Text: Adjustment Start Date: Saturday12/02/24 INR Value: 2.9 INR Date: 12/02/24 Recheck Date: 12/09/24 Rx Instructions: 2.5 mg orally 2.5MG DAILY WHILE RECOVERING MAY NEED DOSE ADJUSTMENTS; furosemide [Lasix] 40 mg tablet 40 mg PO DAILY Qty: 90 1RF omeprazole 20 mg capsule,delayed release(DR/EC) 20 mg PO BID Qty: 180 3RF vitamin B complex Tablet 1 tab PO DAILY Atrovent HFA 17 mcg/actuation HFA aerosol inhaler 2 puff INHALATION QID ascorbate calcium (vitamin C) 500 mg tablet 500 mg PO DAILY zinc gluconate 50 mg tablet 50 mg PO DAILY oyvkjedzebau-Wc-mqmu-minerals Tablet 1 tab PO DAILY aspirin [Noel Low Dose Aspirin] 81 mg tablet,delayed release (DR/EC) 81 mg PO DAILY acetaminophen 325 mg capsule 650 mg PO Q8H PRN (Reason: Pain) amiodarone 200 mg tablet 200 mg PO DAILY Print Language: Korean
--- NOTE | 2024-12-07 11:45 | ECG_ITS ---
Test Reason : sob Blood Pressure : */* mmHG Vent. Rate : 73 BPM Atrial Rate : 71 BPM P-R Int : * ms QRS Dur : 118 ms QT Int : 460 ms P-R-T Axes : * 120 -14 degrees QTcB Int : 506 ms Ventricular-paced rhythm Abnormal ECG When compared with ECG of 06-Nov-2024 11:38, Vent. rate has decreased by 11 bpm Referred By: Rosalva Carter Electronically Signed By: Bam Dickinson
[2024-12-07 12:05] LABS: Hematocrit 36.4 % (37.0-47.0); Hemoglobin 11.6 g/dl (12.0-16.0); Imm Gran Abs Auto 0.02 X10*3/uL (0.00-0.03); Imm Gran Pct Auto 0.5 % (0.0-0.4); Lymphocytes Absolute Auto 0.8 X10*3/uL (1.2-4.9); MANUAL DIFF FLAG NO; Mean Corpuscular HGB Conc 31.9 g/dl (31.0-35.0); Mean Corpuscular Hemoglobin 28.3 pg (27.0-33.0); Mean Corpuscular Volume 88.8 fL (80.0-98.0); NRBC Abs Auto 0.000 X10*3/uL (0.0-0.012); NRBC Pct Auto 0.0 /100WBC (0.0-0.2); Platelet Count 132 X10*3/uL (160-400); Red Blood Count 4.10 X10*6/uL (4.20-5.50); White Blood Count 4.4 X10*3/uL (4.8-10.8)
[2024-12-07 12:27] LABS: Alanine Aminotransferase 17 U/L (0-31); Albumin Level 3.1 g/dL (3.5-5.0); Alkaline Phosphatase 116 U/L (39-117); Anion Gap 12 (12-20); Aspartate Amino Transferase 35 U/L (5-31); B Type Natriuretic Peptide 3367 pg/mL (<100); Blood Urea Nitrogen 21 mg/dL (9-16); Calcium 8.7 mg/dL (8.4-10.2); Carbon Dioxide 29 mmol/L (22-29); Chloride 105 mmol/L (96-108); Creatinine Clr Calc Pharmacy 45.2; Estimated Glomerular Filt Rate 58; Potassium 4.6 mmol/L (3.3-5.1); Sodium 141 mmol/L (135-145); Total Protein 5.3 g/dL (6.5-8.0)
[2024-12-07 12:28] LABS: Troponin-I High Sensitivity 11.3 ng/L (<3.5-17.0)
--- NOTE | 2024-12-07 12:33 | ED.GENADULT ---
HPI - General Adult General Chief complaint: Dyspnea Stated complaint: SOB Time Seen by Provider: 12/07/24 12:22 Source: patient Mode of arrival: ambulatory Limitations: no limitations History of Present Illness ED Provider: DR. 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 No chest pain, no fever, no chills, no coughing. Patient just came from the wound clinic for chronic bilateral lower extremity chronic wounds, and the wounds were just dressed, as per wound clinic reported to the son there is no issue with the wounds. Related Data Home Medications ?Medication ?Instructions ?Recorded ?Confirmed ascorbate calcium (vitamin C) 500 500 mg PO DAILY 01/04/23 11/19/24 mg tablet aspirin 81 mg tablet,delayed 81 mg PO DAILY 01/04/23 11/19/24 release (Noel Low Dose Aspirin) xusvifleopaf-Zx-itee-minerals 1 tab PO DAILY 01/04/23 11/19/24 zinc gluconate 50 mg tablet 50 mg PO DAILY 01/04/23 11/19/24 vitamin B complex 1 tab PO DAILY 11/26/23 11/19/24 acetaminophen 325 mg capsule 650 mg PO Q8H PRN Pain 01/20/24 11/19/24 amiodarone 200 mg tablet 200 mg PO DAILY 07/27/24 11/19/24 ipratropium bromide 17 2 puff inhalation QID 11/06/24 11/19/24 mcg/actuation HFA aerosol inhaler (Atrovent HFA) Previous Rx's ?Medication ?Instructions ?Recorded atorvastatin 80 mg tablet 80 mg PO DAILY #90 tabs 04/01/24 albuterol sulfate 90 mcg/actuation 2 puff inhalation Q4-6H PRN 06/30/24 aerosol inhaler shortness of breath or wheezing #8.5 grams potassium chloride 20 mEq 30 meq (1.5 x 20 mEq) PO DAILY 06/30/24 tablet,extended release(part/cryst) #135 tabs carvedilol 12.5 mg tablet 12.5 mg PO BID #180 tabs 07/30/24 warfarin 2.5 mg tablet 2.5 mg PO .COMPLEX #90 tabs 07/30/24 furosemide 40 mg tablet (Lasix) 40 mg PO DAILY #90 tabs 10/28/24 omeprazole 20 mg capsule,delayed 20 mg PO BID #180 caps 10/28/24 release Allergies Allergy/AdvReac Type Severity Reaction Status Date / Time acetaminophen (From Vicodin) Allergy Intermediate per patient Verified 12/07/24 11:48 hydrocodone (From Vicodin) Allergy Mild CHEST PAIN Verified 12/07/24 11:48 Review of Systems Review of Systems: All other systems are reviewed and are negative Constitutional: Reports as per HPI and Reports no additional constitutional complaints Eyes: Reports as per HPI and Reports no additional eye complaints Reports system reviewed and no additional complaints, except as documented Cardiovascular: Reports as per HPI and Reports no additional cardiovascular complaints Respiratory: Reports as per HPI and Reports no additional respiratory complaints Gastrointestinal: Reports as per HPI and Reports no additional gastrointestinal complaints Genitourinary: Reports no additional female genitourinary complaints Musculoskeletal: Reports no additional musculoskeletal complaints Skin/Breast: Reports system reviewed and no additional complaints, except as docu Psychiatric: Reports no additional psychiatric complaints Endocrine: Reports no additional endocrine complaints Hematologic/Lymphatic: Reports no additional hematologic/lymphatic complaints Allergic/Immunologic: Reports no additional allergic/immunologic complaints Reports system reviewed and no additional complaints, except as documented and Reports Abnormal speech present [facility] Past Medical History Medical History HFrEF (heart failure with reduced ejection fraction) Chronic atrial fibrillation Chronic anticoagulation Obesity CKD (chronic kidney disease) stage 3, GFR 30-59 ml/min Nephrolithiasis, uric acid Hyperlipidemia HTN (hypertension) A-fib GORDON (obstructive sleep apnea) COPD (chronic obstructive pulmonary disease) Pulmonary HTN Severe mitral regurgitation Thiamine deficiency Osteoporosis Surgical History Hx of hernia repair History of open reduction and internal fixation (ORIF) procedure Family History Family History Father No problems noted. Mother No problems noted. Maternal Aunt Breast cancer Social History Social History Household Members: Spouse Housing: House Do you presently have visiting nurse or other home services: No Alcohol intake: never Patient Tobacco Use Status: Former Tobacco user Tobacco use type: Cigarette Smoked in Last 30 Days: No e-Cigarette/Vaping Use: Never Used Second Hand Smoke Exposure: No Use of substances other than those prescribed or required for medical reasons: No Advance Directives Date on File: 11/28/23 Do you have a plan to hurt others: No Plan service: No Current occupational status: retired Cognitive needs: No Hearing needs: No Vision needs: No Physical Exam ED Vital Signs: Vital Signs - 24 hr 12/07/24 11:42 12/07/24 12:40 12/07/24 13:00 Temperature 97.4 F 98.2 F Pulse Rate 72 74 Respiratory Rate 20 20 Blood Pressure 106/65 108/59 L 108/59 L Pulse Oximetry 95 98 Oxygen Delivery Method Room Air Room Air BMI result Body Mass Index 29.3 Vital signs have been reviewed and appear to be correct. Blood pressure elevated. Heart rate normal. Respiratory rate normal. Temperature normal. Oxygen saturation normal. Appearance: Alert. Oriented X3. No acute distress. Head: Normal external exam. Normocephalic. Atraumatic. No Roman signs noted. No raccoon eyes noted Eyes: PERRLA. EOMI. Conjunctiva and sclera normal. Eyelids normal. ENT: TM's Normal. Pharynx normal. Uvula midline. Moist mucous membranes. No trismus noted. No drooling noted. No muffled voice noted. Neck: Normal inspection. Neck supple. FROM. No adenopathy. Thyroid Normal. No meningeal signs. No neck mass noted. CVS: Normal heart rate and rhythm. Heart sound normal. No murmurs noted. Pulses normal throughout. Respiratory: No respiratory distress. Painless inspiration. Breath sounds normal. Increased rales to both lungs assisted up both lungs field. No accessory muscle usage noted or decreased air movement noted. Abdomen: Soft and nontender. Bowel sounds normal in all 4 quadrants. No distention noted. No organomegaly noted. No visible injury noted. Back: No CVA tenderness. Full range of motion noted. Skin: Skin warm and dry. Normal skin color. Normal skin turgor. No rashes/lesions/lacerations noted. Extremities: +2 lower extremity edema. Fresh wound dressing to both lower extremities, Extremities exhibit normal range of motion. Extremities nontender. Neuro: Oriented X 3. Cranial nerve exam: II-XII are grossly intact No motor deficit. No sensory deficit. Reflexes normal. Course Reevaluation(s) Reevaluation #1: Acute exacerbation of CHF. Admit for IV Lasix. INR in therapeutic range. Time: 13:46 Medications Administered Discontinued Medications Generic Name Dose Route Start Last Admin Trade Name Freq PRN Reason Stop Dose Admin Furosemide 40 mg 12/07/24 12:31 12/07/24 13:00 Furosemide 40 Mg/4 Ml Vial IVPUSH 12/07/24 12:32 40 mg STAT STA Administration Protocol Medical Decision Making Differential Diagnosis Differential Diagnoses: The differential diagnosis associated with the presentation includes (Pneumonia, pneumothorax, pleural effusion, CHF, ACS, electrolyte derangement, severe anemia.) Admission/Observation Consideration of admission/observation: Escalation of care including admission/observation considered Consult Healthcare Provider Management of the patient was discussed with: Hospitalist (Claritza Workman) Lab Data MDM Lab Attestation statement: I reviewed the patient's lab results. 12/07/24 11:57 12/07/24 11:57 Labs: Lab Results 12/07/24 12/07/24 Range/Units 11:57 12:54 WBC 4.4 L (4.8-10.8) X10*3/uL RBC 4.10 L (4.20-5.50) X10*6/uL Hgb 11.6 L (12.0-16.0) g/dl Hct 36.4 L (37.0-47.0) % MCV 88.8 (80.0-98.0) fL MCH 28.3 (27.0-33.0) pg MCHC 31.9 (31.0-35.0) g/dl RDW 18.6 H (11.0-16.0) % Plt Count 132 L (160-400) X10*3/uL MPV 10.9 (9.4-12.3) fL Immature Gran % (Auto) 0.5 H (0.0-0.4) % Neut % (Auto) 74.2 H (45-73) % Lymph % (Auto) 17.1 L (20-40) % [place] % (Auto) 7.0 (2-11) % Eos % (Auto) 0.7 (0-4) % Baso % (Auto) 0.5 (0-2) % Lymph # (Auto) 0.8 L (1.2-4.9) X10*3/uL [place] # (Auto) 0.3 (0.1-1.2) X10*3/uL Eos # (Auto) 0.0 (0.0-0.4) X10*3/uL Baso # (Auto) 0.0 (0.0-0.2) X10*3/uL Abs Immat Gran (auto) 0.02 (0.00-0.03) X10*3/uL Absolute Neuts (auto) 3.3 (2.0-8.3) x10*3/uL Absolute Nucleated RBC 0.000 (0.0-0.012) X10*3/uL Nucleated RBC % (auto) 0.0 (0.0-0.2) /100WBC PT 26.8 H D (10.9-12.4) SEC INR 2.3 H D (0.9-1.1) Sodium 141 (135-145) mmol/L Potassium 4.6 D (3.3-5.1) mmol/L Chloride 105 (96-108) mmol/L Carbon Dioxide 29 (22-29) mmol/L Anion Gap 12 (12-20) BUN 21 H (9-16) mg/dL Creatinine 0.93 (0.5-1.4) mg/dL Estim Creat Clear Calc 45.2 Estimated GFR 58 Random Glucose 103 (60-115) mg/dL Calcium 8.7 (8.4-10.2) mg/dL Total Bilirubin 1.1 H (0.0-1.0) mg/dL AST 35 H (5-31) U/L ALT 17 (0-31) U/L Alkaline Phosphatase 116 (39-117) U/L Troponin I High Sens 11.3 (<3.5-17.0) ng/L B-Natriuretic Peptide 3367 H (<100) pg/mL Total Protein 5.3 L (6.5-8.0) g/dL Albumin 3.1 L (3.5-5.0) g/dL Independent Interpretation I performed an independent interpretation of an: Plain X-Ray (Chest:No significant interval change from the prior day. Cardiomegaly, pulmonary vascular congestion, interstitial pulmonary edema, and small bilateral pleural effusions. ) Radiology Impression Discussion of test interpretation with radiology: I have reviewed the radiologist's reading. Chronic Conditions Patient?s care impacted by: Other (CHF) Critical Care Time Critical Care Time Critical Care Time: Yes Total Critical Care Time: 40 Attestation: The patient was critically ill with a high probability of imminent or life-threatening deterioration. I spent greater than 30 minutes of discontinuous time evaluating the patient, delivering critical care at the bedside, discussing evaluating data with consultants. Critical care time does not include time spent performing separately billable procedures or teaching. Time spent performing critical care was 40 minutes. Discharge Plan Discharge Clinical Impression: HFrEF (heart failure with reduced ejection fraction) Patient Disposition: Admitted As Inpatient Print Language: Slovenian
[2024-12-07] MEDS: Furosemide 40 MG/4 ML VIAL IVPUSH (13:00)
[2024-12-07 13:21] LABS: INTERNATIONAL NORM RATIO 2.3 (0.9-1.1); Prothrombin Time 26.8 SEC (10.9-12.4)
--- NOTE | 2024-12-07 13:52 | PM.IMHP ---
History of Present Illness Date of Service: 12/07/24 Chief Complaint: Heart failure exacerbation An 84 years old lady with PMH of systolic CHF s\p PPM placement ,CKD3, HLD, HTN, Afib , GORDON, COPD among others who is presenting with worsening SOB and edema for the last week. 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 No chest pain, palpitations, nausea, vomiting, diarrhea or urinary symptoms. She had new PPM placed few weeks ago as the previous PPM had some issues (she said it was taking over and not allowing her heart to beat by itself). CXR in ED showing mild congestion and pulmonary edema. BNP elevated >3000 Admitted for IV lasix and close monitoring. Review of Systems Review of Systems: No fever, chills or weakness No chest pain, palpitation reports shortness of breath and dyspnea No abdominal pain, nausea or vomiting No urinary symptoms No any rash or wounds [facility] Medical History HFrEF (heart failure with reduced ejection fraction) Chronic atrial fibrillation Chronic anticoagulation Obesity CKD (chronic kidney disease) stage 3, GFR 30-59 ml/min Nephrolithiasis, uric acid Hyperlipidemia HTN (hypertension) A-fib GORDON (obstructive sleep apnea) COPD (chronic obstructive pulmonary disease) Pulmonary HTN Severe mitral regurgitation Thiamine deficiency Osteoporosis Family History Father No problems noted. Mother No problems noted. Maternal Aunt Breast cancer Surgical History Hx of hernia repair History of open reduction and internal fixation (ORIF) procedure Social History Household Members: Spouse Housing: House Do you presently have visiting nurse or other home services: No Alcohol intake: never Patient Tobacco Use Status: Former Tobacco user Tobacco use type: Cigarette Smoked in Last 30 Days: No e-Cigarette/Vaping Use: Never Used Second Hand Smoke Exposure: No Use of substances other than those prescribed or required for medical reasons: No Advance Directives: Yes Advance Directives on File: Yes Advance Directives Date on File: 11/28/23 Do you have a plan to hurt others: No Plan service: No Current occupational status: retired Cognitive needs: No Hearing needs: No Vision needs: No Meds Allergies Allergy/AdvReac Type Severity Reaction Status Date / Time acetaminophen (From Vicodin) Allergy Intermediate per patient Verified 12/07/24 11:48 hydrocodone (From Vicodin) Allergy Mild CHEST PAIN Verified 12/07/24 11:48 Home Medications ?Medication ?Instructions ?Recorded ?Confirmed ?Last Taken ?Type ascorbate calcium (vitamin C) 500 500 mg PO DAILY 01/04/23 11/19/24 11/06/24 History mg tablet aspirin 81 mg tablet,delayed 81 mg PO DAILY 01/04/23 11/19/24 11/06/24 History release (Noel Low Dose Aspirin) cunmmbvojaka-Jx-gwzs-minerals 1 tab PO DAILY 01/04/23 11/19/24 11/06/24 History zinc gluconate 50 mg tablet 50 mg PO DAILY 01/04/23 11/19/24 11/06/24 History vitamin B complex 1 tab PO DAILY 11/26/23 11/19/24 11/06/24 History acetaminophen 325 mg capsule 650 mg PO Q8H PRN Pain 01/20/24 11/19/24 Unknown History amiodarone 200 mg tablet 200 mg PO DAILY 07/27/24 11/19/24 11/06/24 History ipratropium bromide 17 2 puff inhalation QID 11/06/24 11/19/24 11/06/24 History mcg/actuation HFA aerosol inhaler (Atrovent HFA) warfarin 2.5 mg tablet 2.5 mg PO CONT. PER PROTOCOL 12/07/24 Unknown History Physical Exam Vital Signs and Narrative: Vital Signs: Last Vital Signs Temp 98.2 F 12/07/24 12:40 Pulse 74 12/07/24 12:40 Resp 20 12/07/24 12:40 BP 108/59 L 12/07/24 13:00 Pulse Ox 98 12/07/24 12:40 O2 Del Method Room Air 12/07/24 12:40 BMI result Body Mass Index 29.3 Const: Other: Constitutional : Awake, interactive, not in distress Neck : Normal inspection, Supple Cardiovascular : RRR, no JVP, +1 bilateral lower extremity edema Respiratory : decreased bilateral air entry, basal bilateral crackles Gastrointestinal: soft, lax, Normal bowel sounds Skin : Warm, Dry, bilateral lower extremities wounds Neurological : Alert & oriented x3, No focal deficit Results Labs 12/07/24 11:57 12/07/24 11:57 Labs: Laboratory Results - last 24 hr 12/07/24 12/07/24 11:57 12:54 MCV 88.8 MCH 28.3 MCHC 31.9 RDW 18.6 H Plt Count 132 L MPV 10.9 Immature Gran % (Auto) 0.5 H Neut % (Auto) 74.2 H Lymph % (Auto) 17.1 L [place] % (Auto) 7.0 Eos % (Auto) 0.7 Baso % (Auto) 0.5 Lymph # (Auto) 0.8 L [place] # (Auto) 0.3 Eos # (Auto) 0.0 Baso # (Auto) 0.0 Abs Immat Gran (auto) 0.02 Absolute Neuts (auto) 3.3 Absolute Nucleated RBC 0.000 Nucleated RBC % (auto) 0.0 PT 26.8 H D INR 2.3 H D Anion Gap 12 Estim Creat Clear Calc 45.2 Estimated GFR 58 Random Glucose 103 Calcium 8.7 Total Bilirubin 1.1 H AST 35 H ALT 17 Alkaline Phosphatase 116 Troponin I High Sens 11.3 B-Natriuretic Peptide 3367 H Total Protein 5.3 L Albumin 3.1 L Imaging Radiologist's Impressions: Impressions Chest X-Ray 12/07/24 12:29 IMPRESSION: No significant interval change from the prior day. Cardiomegaly, pulmonary vascular congestion, interstitial pulmonary edema, and small bilateral pleural effusions. Electronically signed by: He Hernandez MD 12/07/2024 01:39 PM EDT RP Assessment and Plan (1) HFrEF (heart failure with reduced ejection fraction): Status: Acute Plan An 84 years old lady with PMH of systolic CHF s\p PPM placement ,CKD3, HLD, HTN, Afib , GORDON, COPD among others who is presenting with worsening SOB and edema for the last week. Acute dCHF exacerbation Elevated BNP CXR showing bilateral pulm edema recent Echo last week at [place] , asked ER to get a copy Cardiology consult for PPM interrogation and advice (recently changed the PPM) IV Lasix 40 mg bid for now follow BNP monitor response Chronic bilateral wounds followed at wound clinic wound care nurse eval Paroxysmal AFib INR 2.3 Monitor INR continue warfarin, carvedilol, amiodarone Hyperlipidemia Statin COPD Inhalers GERD PPI GORDON CPAP Full code PENDING MED REC reason for inpateint hospitalization: IV diuresis Quality Stroke Does the patient have a stroke diagnosis?: No VTE Prior VTE?: No VTE Risk Level:: Medical - moderate - high VTE Device Contraindication: Treatment Not Indicated VTE Drug Contraindication: N/A - Med Ordered
--- OUTSIDE RECORDS SUMMARY | 2024-12-07 14:19 | XMS_ITS | Patient Health Record ---
Author Organization [facility] Address [address] [place] [address] Care Team Providers Care It Architecture Consultant Name Role Phone Kiesha Macedo MD Primary Care Provider Tae Fish [phone] Allergies Allergen (clinical drug ingredient) Drug/Non Drug Allergy documented on EMR Reaction Allergy Type Onset Date Status Vicodin Unknown Drug Allergy Active Reason For Referral No Information Medications Medication SIG (Take, Route, Frequency, Duration) Notes Start Date End Date Status Furosemide 20 MG 1 tablet Orally Once a day for 30 day(s) Active amLODIPine Besylate 5 MG 1 tablet Orally Once a day Active Atorvastatin Calcium 80 MG 1 tablet Oral ly Once a day for 30 day(s) Active ProAir HFA 108 (90 Base) MCG/ACT 2 puffs as needed Inhalation every 6 hrs Active Omeprazole 20 MG 1 capsule Orally Onc e a day Active Vitamin D3 Ultra Potency 37925 UNIT 1 tablet Orally once a week Active Potassium Citrate ER 10 MEQ (1080 MG) 1 tablet with meals Orally Twice a day Active Aspir-Low 81 MG 1 tablet Orally Once a day for 30 day(s) Active Allopurinol 100 MG as directed Orally o nce a day Active Atenolol 50 MG 1 tablet Orally Once a day for 30 day(s) Active Losartan Potassium 100 MG 1 tablet Orall y Once a day for 30 day(s) Active Immunizations Vaccine Route Administration Date Status Comme nts Influenza Unknown 03/13/2018 Administered Social History Tobacco Use: Social History Observation Description Date Details (start date - stop date) Former Smoker NA - NA Tobacco Use/Smoking Question Answer Notes Patient is a former smoker How long has it been since you last smoked? > 10 years Alcohol Screen Question Answer Notes Did you have a drink containing alcohol in the p ast year? 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) Active confirmed Problem 515261027 Positive colorectal cancer screening using Cologuard test (R19.5) Active confirmed Plan Of Treatment Pending Test Test Name Order Date GI BIOPSY 04/15/2019 Future Test Test Name Order Date UPPER GI ENDOSCOPY 12/31/2018 COLONOSCOPY 12/31/2018 Insurance Providers Payer Name Payer Address Payer Phone Subscriber Number Group Number Insured Name Patient Relationship to Insured Coverage Start Date Coverage End Date MEDICARE OF [place] [address] [place] [address] [id number] HARMONY PETERS Self - patient is the insured [facility] [address] [place], [place] [id number] HARMONY PETERS Self - patient is the insured Medical (General) History Medical History History ICD Code Denies DM,CVA,Lung disease,renal disease [place] at age 33 Valvular heart disease GERD with Pandey's esophagu s and hiatal hernia--most recent EGD in 2008 was neg. for dysplasia--the segment of Pandey's esophagus is between 29 and 35 cm in the esophagus. 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 Miller HTN Kidney stone Hyperlipidemia Glaucoma Osteoporosis Sleep apnea--uses CPAP + Cologuard test in 2019 Neg. colonoscopy in [address] Miller Surgical History Surgery Date(Month/Year) Wrist surgery Femur surgery x 2 Hip fractures Hernia repair Umbilical hernia CCY
--- OUTSIDE RECORDS SUMMARY | 2024-12-07 14:19 | XMS_ITS | Data Portability ---
Author Organization [facility], Main Office Address [address] [facility], [facility] [address] [place] [address] Care Team Providers Care Director Of Online Education Name Role Phone LANDON FREY 1ST FLOOR OTHER [phone] Assessment Encounter Date Assessment Date Assessment LastModified by Organization Details LastModified Time 01/17/2018 01/17/2018 01/13/18 WBC 4.3, Hgb 11.8, Hct 35.1, Na 141, K 3.6, BUN 12, Painting Technician 0.62 [email or web address] Not available 01/17/2018 11:17:28 01/22/2018 01/22/201801/13: na 141, k 3.6, bun 12, creat 0.62, wbc 4.3, hgb 11.8, hct 35.1 glord Not available 01/22/2018 15:24:19 01/27/2018 01/27/2018 01/27/18 WBC 5.4, Hgb 13.7, Hct 41.3, Na 142, K 3.9, BUN 12, Painting Technician 0.59 [email or web address] Not available 01/27/2018 17:03:47 02/05/2018 02/05/201802/03: na 143, k 3.7, bun 15, creat 0.66, wbc 4.2, hgb 11.5, hct 35.2 glord Not available 02/05/2018 14:14:26 02/07/2018 02/07/2018 02/03/18 WBC 4.2, Hgb 11.5, Hct 35.2, Na 143, K 3.7, BUN 15, Painting Technician 0.66 [email or web address] Not available 02/07/2018 16:44:48 Plan [...] Address Organization Details Recorded Time Pulmonary hypertension 19688807 Active [address], [address], [place], [address], [facility] 16:34:20 Obstructive sleep apnea syndrome 50085550 Active [address], [address], [place], [address], [facility] 16:34:24 Mitral valve regurgitation 34137192 Active [address], [address], [place], [address], [facility] 16:34:38 Aortic valve regurgitation 21978233 Active [address], [address], [place], [address], [facility] 16:34:44 Fracture of shaft of femur 99087491 Active [address], [address], [place], [address], [facility] 16:35:57 Essential hypertension 03364091 Active [address], [address], [place], [address], [facility] 16:36:05 Chronic disease of respiratory system 47543476 Active [address], [address], [place], [address], [facility] 16:36:13 Gout 93330250 Active [address], [address], [place], [address], [facility] 16:44:07 Soxjs-or-pbvkl ic respiratory failure 14991938 Active 2017 Sho Houser MD [address] [facility], [address], [place], [address], [facility] 20:08:21 Fracture of shaft of femur 50110217 Active 2017 Sho Houser MD [address] [facility], [address], [place], [address], [facility] 20:11:04 Solitary nodule of lung 300101313 Active 2017 Sho Houser MD [address] [facility], [address], [place], [address], [facility] 20:17:21 Mixed hyperlipidemia 193572034 Active 2017 Sho Houser MD [address] [place] [address], [facility] [address], [place], [address], [facility] 20:19:54 Problem Notes None recorded. Medical Equipment None Reported. Allergies Allergen ID Allergen Name Allergen Category Reaction Reaction Severity Criticality Documentation Date Start Date Code Code System Note Provider Name and Address Organization Details Recorded Time 44209 acetamino phen / hydrocodo ne medicatio n Not available Not available Not available 12/18/2017 [address], [facility] [address], [place], [address], [facility] 16:34:03 Vitals Date Recorded Body height Body temperature Heart rate Respiratory rate Oxygen saturation Oxygen saturation in Arterial blood by Pulse oximetry Systolic And Diastolic Provider Name and Address Organization Details Last Updated DateTime 8 163.07 cm 97.4 [degF] 80 /min 18 /min 93 % 93 % 138/62 mm[Hg] VANESSA HARDEN [address] [facility], [address], [place], [address], [facility] 11:11:37 Date Recorded Body height Heart rate Respiratory rate Provider Name and Address Organization Details Last Updated DateTime 01/22/2018 163.07 cm 72 /min 16 /min LIGIA [address], [address], [place], [address], [facility] 01/22/2018 15:29:09 Date Recorded Body height Body temperature Heart rate Respiratory rate Oxygen saturation Oxygen saturation in Arterial blood by Pulse oximetry Systolic And Diastolic Provider Name and Address Organization Details Last Updated DateTime 8 163.07 cm 97.2 [degF] 68 /min 18 /min 94 % 94 % 106/49 mm[Hg] JOSUE FERRERAVANESSA SCHULTZ [address] [facility], [address], [place], [address], [facility] 8 16:58:27 Date Recorded Body height Heart rate Respiratory rate Body temperature Provider Name and Address Organization Details Last Updated DateTime 02/05/2018 163.07 cm 70 /min 16 /min 97.1 [degF] LIGIA LEMUS [address] [facility], [address], [place], [address] , [facility] 02/05/2018 14:25:46 Date Recorded Body height Heart rate Respiratory rate Body temperature Oxygen saturation Oxygen saturation in Arterial blood by Pulse oximetry Systolic And Diastolic Provider Name and Address Organization Details Last Updated DateTime 8 163.07 cm 61 /min 18 /min 98.1 [degF] 98 % 98 % 116/56 mm[Hg] JOSUEVANESSA DEVINE [address] [facility], [address], [place], [address], [facility] 8 16:42:44 Social History Question Answer Notes LastModified by Organizat ion Details LastModified Time Tobacco Smoking Status Unknown If Ever Smoked Not Available [facility] 03/29/2020 03:13:20 Do You Have An Advance Directive? Yes Full Code [id number] Information not available 03/29/2020 What Was The Date Of Your Most Recent Tobacco Screening? 02/07/2018 [id number] Information not available 03/29/2020 Sex: Unknown Functional Status None recorded. Mental Status None recorded. Family History Nothing Reported. Medical History No medical history recorded. Gynecological HistoryNo gynecological history recorded. Obstetrics History GPAL:G 0 P 0 0 0 0 Past Encounters Encounter ID Performer Location Encounter Start Date Encounter Closed Date Diagnosis/Indication Diagnosis SNOMED-CT Code Diagnosis ICD10 Code Diagnosis Note [id number] LIGIA LEMUS LANDON SHANTE [address] [facility] [place] [address] 12/18/2017 16:36:21 12/23/2017 16:12:52 Pulmonary hypertension 32283826 I27.0 lasix 40 mg dailyfollo w up with cards in 1-2 weeksObtai n follow up chest xray in 1 week to see if pulm edema has resolvedco nt. 02 PRN to keep sats above 92% Fracture o f shaft of femur 19498115 S72.324D Tylenol 650 mg TID scheduledP ercocet PRN for severe painPT/OT eval and treatbrace on right knee at all times Essential hypertension 92035037 I10 Continue atenolol 50 mg dailylosar infante 100 mg dailyamlod ipine 5 mg dailynitro 0.4 sl prnmonitor bps daily Gout 81209834 M10.061 allopurino l 100 mg dailyasa 81 mg daily [id number] Sho Houser MD [address] [place] [address] 12/19/2017 17:49:22 12/24/2017 08:23:57 Pulmonary hypertension 80084720 I27.0 As above, also on lasix 40 mg qd with KCl 10 meq BID. Will f/u with cardio as planned, may need MVR, as this is thought part of the reason for her pulmonary HTN. Will repeat CXR next week to reassess pulmonary edema.Cont . 02 as above. Fracture o f shaft of femur 10084905 S72.324D Will need PT/OT for strengthen ing [...] times. F/U ortho as planned. Essential hypertension 23235623 I10 Good control on atenolol 50 mg qd, losartan 100 mg qd, amlodipine 5 mg qd and nitro 0.4 sl prnMonitor BP and labs. Gout 71203569 M10.061 Continue allopurino l 100 mg qd. Monitor for sxs. Solitary n odule of lung 491445632 R91.1 Will f/u with pulmonary for assessment . Acute-on-c hronic respiratory failure 57435099 J96.21 J96.12 On O2 at baseline, with acute worsening inpt. likely secondary to pulmonary HTN (see below). Continue O2 by NC, titrated to keep sats above between 90-94% so as not to induce hypercapni a. Will f/u with pulmonary and cardio. Obstructiv e sleep apnea syndrome 15516775 G47.33 Continue CPAP as usual. Mixed hyperlipidemia 267 361109 E78.2 Continue atorvastat in 80 mg qd and ASA 81 mg qd. Monitor labs as outpt. [id number] VANESSA HARDEN [address] [address] 12/27/2017 17:27:17 01/02/2018 15:17:31 Chronic disease of respiratory system 13337467 J98.9 she has not needed her oxygen at this time but knows she can use it if neededshe is seeing pulmonolog y on saturday for a follow up Obstructiv e sleep apnea syndrome 51776574 G47.33 she feels her cpap is not working rightwill order oxygen 2 liters via nc at night for nowmonitor Fracture o f shaft of femur 26824760 S72.8X1S continues with lidoderm patches on right legsees ortho next weekawaiti ng decision about next stepcontin ues non weight bearing status [id number] Sal Esparza MD [address] [address] 01/15/2018 10:09:17 01/28/2018 13:33:13 Fracture of shaft of femur 60208796 S72.391D inform ortho of eventxray at facility to reeval [id number] VANESSA HARDEN [address] [address] 01/17/2018 11:10:56 01/28/2018 13:53:07 Essential hypertension 07072740 I10 norvasc 5 mg qdatenolol 50 mg qdlasix 40 mg qdlosartan potassium 100 mg qdmonitor b/p and labs Chronic di sease of respiratory system 95799737 J98.9 she follows with pulmonolog yshe uses oxygen as neededmoni tor respirator y status Fracture o f shaft of femur 01584580 S72.8X1S continues with lidoderm patches on right leg non weight bearing status follows with orthofelt she hurt it worsex-ray was negative and said there was the healing fracturewa nts CT results from ortho but doesn't see them til 30 thmonitor [id number] LIGIA FREY [address] [facility] [place] [address] 01/22/2018 15:15:11 01/28/2018 14:03:23 Essential hypertension 63677599 I10 norvasc 5 mg qdatenolol 50 mg qdlasix 40 mg qdlosartan potassium 100 mg qdmonitor b/p and labs Chronic di sease of respiratory system 00533137 J98.9 Follows with pulmonolog yCPAP at bedtime while sleeping she uses oxygen as neededmoni tor respirator y status Fracture o f shaft of femur 19604065 S72.8X1S continues with lidoderm patches on right leg non weight bearing status, toe touch only follow up with ortho this saturday to determine weight bearing statusmoni tor for pain controltyl enol 650 mg q 8 hours PRN [id number] VANESSA HARDEN [facility] [address] [facility] [place] [address] 01/27/2018 16:57:24 02/12/2018 08:38:08 Fracture of shaft of femur 87118603 S72.8X1S continues with lidoderm patches on right legfollows with orthotoe touch allowedhom e visit this weekcontin ues with therapy Essential hypertension 45609275 I10 norvasc 5 mg qdatenolol 50 mg qdlasix 40 mg qdlosartan potassium 100 mg qdmonitor b/p and labs Mixed hyperlipidemia 267 457964 E78.2 carries diagnosisn ot on medication monitor labs [id number] LIGIA LEMUS [address] [facility] [place] [address] 02/05/2018 14:10:52 02/12/2018 11:56:12 Fracture of shaft of femur 54544897 S72.8X1S continues with lidoderm patches on right legfollows with ortho in 4 weekstoe touch allowed only at this timecontin ues with therapyHom e eval went well, question possible discharge by the end of this week D/C colace 100 mg daily due to loose stools Essential hypertension 95977792 I10 norvasc 5 mg qdatenolol 50 mg qdlasix 40 mg qdlosartan potassium 100 mg qdmonitor b/p and labs [id number] VANESSA HARDEN [address] [place] [address] rd [place] [address] 02/07/2018 16:41:46 02/12/2018 12:03:29 Fracture of shaft of femur 47472700 S72.8X1S continues with lidoderm patches on right legfollows with orthotoe touch allowedtyl enol 650 mg q 8 hrspercoce t q 4 hrs prnfollow up with ortho Essential hypertension 22445068 I10 ASA 81 mgnorvasc 5 mg qdatenolol 50 mg qdlasix 40 mg qdpotassiu m 10 meq qdlosartan potassium 100 mg qdfollow up with PCP Mixed hyperlipidemia 267 942690 E78.2 atorvastat in 80 mg qd follow up with PCP Obstructiv e sleep apnea syndrome 24454553 G47.33 continue home CPAPfollow up with PCP Gout 83141537 M10.49 allopurino l 100 mg qdfollow up with PCP Chronic di sease of respiratory system 00336255 J98.9 she follows with pulmonolog yshe uses oxygen as neededfoll ow up with pulmonolog y Health Concerns Section Related Observation LastModified by Organization Detai ls LastModified Time None Recorded Concern Status LastModified by Organization Details LastModified Time None Recorded Advance Directives Directive Y: Full code Payers Insurance Date Sequence Insurance Name Policy Number Policy Grant Covered Member ID Grant Member ID Guarantor Name 02/12/2018 2 [place] Ramona Pinon [id number] Ramona Pinon 02/05/2018 1 [place] [employer]MENT [employer] Ramona Iqra Kathrin [id number] Ramona Pinon Notes Date Note Type Note [...] been working with therapy. VANESSA HARDEN [address] [facility], [address], [place], [address], [facility] 01/17/2018 11:55:52 01/22/2018 text/html A 77 year old female being seen today for acute rounding visit. Pt has follow up with ortho this saturday to determine if she can move to weight bearing status. Otherwise she has no new health concerns at this time. LIGIA LEMUS [address] [place] [address], [address], [place], [address], [facility] 01/22/2018 15:31:01 01/27/2018 text/html A 77 year old female being seen for a acute rounding visit. She has been working with therapy and will have a home visit soon. She is toe touch at this time. She sees ortho in 5 weeks. Staff notes no concerns at this time. VANESSA HARDEN [address] [facility], [address], [place], [address], [facility] 01/27/2018 17:14:53 02/05/2018 text/html A 77 year [...] this time except for loose stool often. LIIGA LEMUS [address] [place] [address], [address], [place], [address], [facility] 02/05/2018 14:25:49 02/07/2018 text/html A 77 year [...] disease and pulmonary hypertension. VANESSA HARDEN [address] [facility], [address], [place], [address], [facility] 02/07/2018 16:59:57 OBGyn Episode No OBEpisode recorded.
--- OUTSIDE RECORDS SUMMARY | 2024-12-07 14:19 | XMS_ITS | Clinical Summary ---
Author Organization [facility] Facility Address [address] [address] Care Team Providers Care Automotive Lube Technician Name Role Phone Kiesha Macedo MD Primary Care Provider [phone] Social History Tobacco Use Types Packs/Day Years [...] age to complete this topic Insurance Medicare [facility] Medicare [facility] Care Teams Automotive Lube Technician Relationship Specialty Start Date End Date Kiesha Macedo MD 1959 [place], [place] PCP - General Internal Medicine 08/29/22
--- NOTE | 2024-12-07 15:18 | PHA.MEDREC ---
Addendum entered by Faby Smith RP 12/07/24 16:34: reviewed by [facility]. Original Note: Pharmacy Consult ? Medication Reconciliation Pharmacy has completed the medication reconciliation. Spoke with pt and she was a poor historian with her medications and said she was just admitted here in the last month and there were not changed from that and to call her grandson Jermaine for help; pt confirmed she took her medications this Am. I called pt britton and he confirmed the the DC packet from pt last admission 11/08 was up to date except for Furosemide and Warfarin; britton confirmed pt has been taking Furosemide 40mg tabs 2 tabs (80mg) QD for the last 5 days with no change in the pt and is the reason why she is here today. He confirmed the Warfarin 2.5mg tab stating the pt takes 1 tab on SUTUTH and 1/2 tab (1.25mg) on MOWEFRSA until her blood test.
--- NOTE | 2024-12-07 17:23 | PC.NURSE ---
ient a&ox3, bilateral legs in unna boots- done today at wound- pictures were taken at wound per provider,pt has c/o BLE pain- she has 3+ edema to BLE, pt also has a small open area the size of an eraser top to her buttocks, playground monitor intact, pt is vpaced but this nurse has seen afib on the monitor with frequent pvcs, lungs clear- rr equal/non labored, chest xray was performed, baseline pt states she uses a walker but has been unable to do so recently. pt was medicated per order, vitals continue to be stable, she has been oob to commode with assist. call valentine within reach, plan of care ongoing
[2024-12-07] MEDS: Warfarin Sodium 1.25 MG HALFTAB PO (18:03)
[2024-12-08] VITALS (9 sets, daily range): BP systolic 101–112; BP diastolic 58–65; PULSE 64–91; RESP 16–20; TEMP 36.2–36.6; O2SAT 96–100
[2024-12-08 06:41] LABS: MANUAL DIFF FLAG NO
[2024-12-08 06:51] LABS: Hematocrit 37.7 % (37.0-47.0); Hemoglobin 12.3 g/dl (12.0-16.0); Imm Gran Abs Auto 0.01 X10*3/uL (0.00-0.03); Imm Gran Pct Auto 0.2 % (0.0-0.4); Lymphocytes Absolute Auto 0.7 X10*3/uL (1.2-4.9); Mean Corpuscular HGB Conc 32.6 g/dl (31.0-35.0); Mean Corpuscular Hemoglobin 29.1 pg (27.0-33.0); Mean Corpuscular Volume 89.3 fL (80.0-98.0); NRBC Abs Auto 0.000 X10*3/uL (0.0-0.012); NRBC Pct Auto 0.0 /100WBC (0.0-0.2); Platelet Count 112 X10*3/uL (160-400); Red Blood Count 4.22 X10*6/uL (4.20-5.50); White Blood Count 4.5 X10*3/uL (4.8-10.8)
[2024-12-08 06:55] LABS: INTERNATIONAL NORM RATIO 2.5 (0.9-1.1); Prothrombin Time 28.9 SEC (10.9-12.4)
[2024-12-08 07:06] LABS: Anion Gap 12 (12-20); Blood Urea Nitrogen 22 mg/dL (9-16); Calcium 8.6 mg/dL (8.4-10.2); Carbon Dioxide 32 mmol/L (22-29); Chloride 104 mmol/L (96-108); Creatinine Clr Calc Pharmacy 39.4; Estimated Glomerular Filt Rate 51; Potassium 4.5 mmol/L (3.3-5.1); Sodium 143 mmol/L (135-145)
[2024-12-08 07:11] LABS: B Type Natriuretic Peptide 3646 pg/mL (<100)
[2024-12-08] MEDS: Furosemide 40 MG/4 ML VIAL IVPUSH (08:20)
[2024-12-08] MEDS: Aspirin Enteric Coated 81 MG TABLET.DR PO (08:20)
[2024-12-08] MEDS: Potassium Chloride ER 10 MEQ TABLET.ER 30 MEQ PO (08:21)
--- NOTE | 2024-12-08 08:48 | MHC.CM.PN ---
CM met with Patient at bedside and addressed IMM with her, providing Patient with the original and a copy has been placed on the chart. Patient lives in a house with her , has CPAP from [facility], is active with [facility], and attends [facility].Home/resume said services is Patient's goal and CM has initiated and will follow for dc planning. PCP is Dr. Kiesha Macedo and Daly/Jermaine will transport to home at time of dc.
[2024-12-08] MEDS: Ipratropium Bromide 1 PUFF/17 MCG INHALER 2 PUFF INHALE ×3 (11:30→18:54)
--- NOTE | 2024-12-08 12:42 | HO.WOUND ---
Wound Consult: Initial 84yr old female admitted to [facility] on 12/07/24- See progress notes and H&P for detailed history.? Wound consult placed for BLE.? Patient agreeable to assessment and photo documentation.? Chart review reveals patient treats weekly at the out patient wound clinic at [facility]. Recent topical recommendations include Puracol Collagen dressing three times a week with Durafiber dressing, however the patient reports she does not change the dressing at home and just changes it once a week at the wound clinic on Mondays. The patient is noted ot have follow up appointment with outpt clinic on 12/14/24 recommended patient keep the follow up appt. At this time I did not preform dressing removal as these were just completed yesterday. I will plan to remove 12/10 if patient remains inpatient. Given Puracol is not available inpatient will likely treat with Durafiber AG followed by gauze wrap and continue with patients own tubigrip. Recommendations: 1. Turn and Reposition every 2 hours and as needed for patient comfort.? Use pillows or wedges to support off loading positions. 2. Off Load all bony prominences with use of pillows and heel boots if needed.? Apply Preventative foams where needed. ? 3. Monitor for incontinence and moisture control, use barrier creams when needed for prevention and treatment. 4. Provide adequate and supplemental nutrition.? 5. Continue low air loss mattress. 6. When applicable maintain blood glucose levels per Providers order. BLE - Cleanse with NS, pat dry. Apply skin prep to periwound. Cover wound bed with Durafiber AG, followed by dry gauze, wrap. Change every other day. Continue follow up outpt wound clinic as scheduled. Re-consult wound care Nurse for wound deterioration or wound changes.
--- NOTE | 2024-12-08 14:20 | PM.CNCAR ---
History of Present Illness History of Present Illness Date of Service: 12/08/24 Requesting physician: Eliana Humphrey Chief complaint: Acute CHF exacerbation Narrative: Pleasant 84 year female who follows at [facility] for cardiology presenting for shortness of breath and congestive heart failure. She has known history of cardiomyopathy and previous mitral valve disease for which she underwent mitral valve replacement with a bioprosthetic valve as well as tricuspid valve annuloplasty in [place] 3 years ago. She said her ejection fraction did not improve and as of June 2024 are echocardiography showed EF 20 25%. She recently underwent upgrade of her pacemaker which I think is a HAM SMOKER-D upgrade. Has been cooks for her and has not been following strict salt restriction and she was eating a lot more salt than she should be. She has been noticing progressive shortness of breath to the point that even short distance walk to bathroom is very difficult for her and she gets significantly out of breath. She also has been getting orthopnea and PND. Very clearly in heart failure on admission. She is saying she has been taking medications regularly. [facility] Past Medical History Medical History HFrEF (heart failure with reduced ejection fraction) Chronic atrial fibrillation Chronic anticoagulation Obesity CKD (chronic kidney disease) stage 3, GFR 30-59 ml/min Nephrolithiasis, uric acid Hyperlipidemia HTN (hypertension) A-fib GORDON (obstructive sleep apnea) COPD (chronic obstructive pulmonary disease) Pulmonary HTN Severe mitral regurgitation Thiamine deficiency Osteoporosis Family History Family History Father No problems noted. Mother No problems noted. Maternal Aunt Breast cancer Surgical History Surgical History Hx of hernia repair History of open reduction and internal fixation (ORIF) procedure Social History Social History Household Members: Spouse Housing: House Do you presently have visiting nurse or other home services: Yes (poor historian unable to answer.) Alcohol intake: never Patient Tobacco Use Status: Former Tobacco user Tobacco use type: Cigarette e-Cigarette/Vaping Use: Never Used Second Hand Smoke Exposure: No Advance Directives Date on File: 11/28/23 service: No Current occupational status: retired Cognitive needs: No Hearing needs: No Vision needs: No Meds Allergies Allergy/AdvReac Type Severity Reaction Status Date / Time acetaminophen (From Vicodin) Allergy Intermediate per patient Verified 12/07/24 11:48 hydrocodone (From Vicodin) Allergy Mild CHEST PAIN Verified 12/07/24 11:48 Active Medications: Current Medications Albuterol Sulfate (Albuterol Sulfate 90 Mcg 8 Gm Inhaler) 2 puff INHALE Q4H PRN PRN Reason: shortness of breath or wheezing Amiodarone HCl (Amiodarone Hcl 200 Mg Tablet) 200 mg PO DAILY [facility] Last Admin: 12/08/24 08:20 Dose: 200 mg Ascorbic Acid (Ascorbic Acid 500 Mg Tablet) 500 mg PO DAILY [facility] Last Admin: 12/08/24 08:21 Dose: 500 mg Aspirin (Aspirin Enteric Coated 81 Mg Tablet.) 81 mg PO DAILY [facility] Last Admin: 12/08/24 08:20 Dose: 81 mg Atorvastatin Calcium (Atorvastatin Calcium 80 Mg Tablet) 80 mg PO DAILY [facility] Last Admin: 12/08/24 08:21 Dose: 80 mg Benzonatate (Benzonatate 100 Mg Capsule) 100 mg PO TID PRN PRN Reason: Cough Ipratropium [place] (Ipratropium [place] 1 Puff/17 Mcg Inhaler) 2 puff INHALE QID [facility] Last Admin: 12/08/24 11:31 Dose: Not Given Magnesium Hydroxide (Milk Of Magnesia 30 Ml Oral.Susp) 30 ml PO DAILY PRN PRN Reason: Constipation Melatonin (Melatonin 3 Mg Tablet) 9 mg PO BEDTIME PRN PRN Reason: Insomnia Multivitamins/Vitamin C (Multivitamin Tablet) 1 tab PO DAILY [facility] Last Admin: 12/08/24 08:21 Dose: 1 tab Omeprazole (Omeprazole 20 Mg Capsule.) 20 mg PO BID@0630,1630 [facility] Last Admin: 12/08/24 05:54 Dose: 20 mg Ondansetron HCl (Ondansetron Hcl 4 Mg/2 Ml Vial) 4 mg IVPUSH Q8H PRN PRN Reason: Nausea and Vomiting Potassium Chloride (Potassium Chloride Er 10 Meq Tablet.Er) 30 meq PO DAILY [facility] Last Admin: 12/08/24 08:21 Dose: 30 meq Warfarin Sodium (Warfarin Sodium 1.25 Mg Halftab) 1.25 mg PO MOWEFRSA@1800 [facility] Last Admin: 12/07/24 18:03 Dose: 1.25 mg Warfarin Sodium (Warfarin Sodium 2.5 Mg Tablet) 2.5 mg PO SUTUTH@1800 [facility] Home Medications ?Medication ?Instructions ?Recorded ?Confirmed ?Last Taken ?Type ascorbate calcium (vitamin C) 500 500 mg PO DAILY 01/04/23 12/07/24 12/07/24 History mg tablet aspirin 81 mg tablet,delayed 81 mg PO DAILY 01/04/23 12/07/24 12/07/24 History release (Noel Low Dose Aspirin) sugteynrkejw-Ut-tpnn-minerals 1 tab PO DAILY 01/04/23 12/07/24 12/07/24 History zinc gluconate 50 mg tablet 50 mg PO DAILY 01/04/23 12/07/24 12/07/24 History vitamin B complex 1 tab PO DAILY 11/26/23 12/07/24 12/07/24 History acetaminophen 325 mg capsule 650 mg PO Q8H PRN Pain 01/20/24 12/07/24 Unknown History amiodarone 200 mg tablet 200 mg PO DAILY 07/27/24 12/07/24 12/07/24 History ipratropium bromide 17 2 puff inhalation QID 11/06/24 12/07/24 12/07/24 History mcg/actuation HFA aerosol inhaler (Atrovent HFA) furosemide 40 mg tablet (Lasix) 80 mg PO DAILY 12/07/24 12/07/24 Unknown History omeprazole 20 mg capsule,delayed 20 mg PO BID@0630,1630 12/07/24 12/07/24 12/07/24 History release warfarin 2.5 mg tablet 1.25 mg PO MOWEFRSA@1800 12/07/24 12/07/24 12/05/24 History warfarin 2.5 mg tablet 2.5 mg PO SUTUTH@1800 12/07/24 12/07/24 12/06/24 History Physical Exam Vital Signs: Vital Signs: Last Vital Signs Temp 97.2 F 12/08/24 10:48 Pulse 66 12/08/24 11:35 Resp 18 12/08/24 11:35 BP 103/59 L 12/08/24 10:48 Pulse Ox 100 12/08/24 10:48 O2 Del Method Nasal Cannula 12/08/24 10:48 O2 Flow Rate 2 12/08/24 10:48 BMI result Body Mass Index 27.9 GENERAL APPEARANCE: in no acute distress, pleasant. NECK: no carotid bruit, positive jugular venous distention up to angle of jaw. SKIN: no suspicious lesions, warm and dry. HEART: no murmurs, regular rate and rhythm. LUNGS: Bibasilar crackles. ABDOMEN: soft, nontender. EXTREMITIES: Mild edema. Both legs are wrapped. PERIPHERAL PULSES: equal. NEUROLOGIC: No gross deficits, AAO X 3 Objective Labs and Meds 12/08/24 06:27 12/08/24 06:27 Lab results: Laboratory Results - last 24 hr 12/08/24 06:27 WBC 4.5 L RBC 4.22 Hgb 12.3 Hct 37.7 MCV 89.3 MCH 29.1 MCHC 32.6 RDW 18.6 H Plt Count 112 L MPV 11.3 Immature Gran % (Auto) 0.2 Neut % (Auto) 78.1 H Lymph % (Auto) 14.6 L [place] % (Auto) 6.2 Eos % (Auto) 0.7 Baso % (Auto) 0.2 Lymph # (Auto) 0.7 L [place] # (Auto) 0.3 Eos # (Auto) 0.0 Baso # (Auto) 0.0 Abs Immat Gran (auto) 0.01 Absolute Neuts (auto) 3.5 Absolute Nucleated RBC 0.000 Nucleated RBC % (auto) 0.0 PT 28.9 H INR 2.5 H Sodium 143 Potassium 4.5 Chloride 104 Carbon Dioxide 32 H Anion Gap 12 BUN 22 H Creatinine 1.04 Estim Creat Clear Calc 39.4 Estimated GFR 51 Random Glucose 129 H Calcium 8.6 B-Natriuretic Peptide 3646 H Assessment and Plan (1) HFrEF (heart failure with reduced ejection fraction): Status: Acute (2) Acute on chronic systolic heart failure: Status: Acute Plan Pleasant 84 year female with background history of mitral valve replacement and tricuspid valve ring annuloplasty and severe cardiomyopathy with EF of 10-15% based on echocardiography from June 2024. He recently had a Bi V upgrade. Presenting for shortness of breath and congestive heart failure. 80 mg IV Lasix daily. Decrease the carvedilol dose to 6.25 mg twice a day for now. Continue anticoagulation as before. She is not on any [place] or ARB. Unsure whether there was an issue with hypotension previously or she had an allergic reaction. If blood pressure improves with cutting back on carvedilol then we will introduce Entresto. We will follow along with you. The patient has been instructed about restrict salt restriction. Thank you for allowing me to participate in the care of your patient. Please feel free to contact me if you have any questions. Procedures Date of Service Date of Service: 12/08/24
[2024-12-08] MEDS: Furosemide 40 MG/4 ML VIAL 80 MG IVPUSH (15:35)
--- NOTE | 2024-12-08 18:44 | HO.PM.IMPN ---
Subjective Subjective Date of Service: 12/08/24 Interval History: chf Review of Systems sob with minimal excersion,slightly improving from yesterday no chest pain Physical Exam Vital Signs: Vital Signs: Last Vital Signs Temp 97.8 F 12/08/24 15:08 Pulse 73 12/08/24 16:42 Resp 20 12/08/24 16:42 BP 105/58 L 12/08/24 15:08 Pulse Ox 96 12/08/24 15:08 O2 Del Method Room Air 12/08/24 15:08 O2 Flow Rate 2 12/08/24 10:48 BMI result Body Mass Index 27.9 Appearance: Alert.? Oriented X3.? cvs: rrr, [id number] . res: clear to auscultation ,no rhonchii or wheezing abd: no rebound or guarding ,nt, bs present. ext pulses present , no cyanosis . neuro: axo3 , nonfocal. Objective Data Active Medications Albuterol Sulfate (Albuterol Sulfate 90 Mcg 8 Gm Inhaler) 2 puff INHALE Q4H PRN PRN Reason: shortness of breath or wheezing Amiodarone HCl (Amiodarone Hcl 200 Mg Tablet) 200 mg PO DAILY [facility] Last Admin: 12/08/24 08:20 Dose: 200 mg Documented By: MARIA A Ascorbic Acid (Ascorbic Acid 500 Mg Tablet) 500 mg PO DAILY [facility] Last Admin: 12/08/24 08:21 Dose: 500 mg Documented By: MARIA A Aspirin (Aspirin Enteric Coated 81 Mg Tablet.) 81 mg PO DAILY [facility] Last Admin: 12/08/24 08:20 Dose: 81 mg Documented By: MARIA A Atorvastatin Calcium (Atorvastatin Calcium 80 Mg Tablet) 80 mg PO DAILY [facility] Last Admin: 12/08/24 08:21 Dose: 80 mg Documented By: MARIA A Benzonatate (Benzonatate 100 Mg Capsule) 100 mg PO TID PRN PRN Reason: Cough Carvedilol (Carvedilol 6.25 Mg Tablet) 6.25 mg PO BID [facility]; Protocol Furosemide (Furosemide 40 Mg/4 Ml Vial) 80 mg IVPUSH DAILY [facility]; Protocol Last Admin: 12/08/24 15:35 Dose: 80 mg Documented By: MARIA A Ipratropium [place] (Ipratropium [place] 1 Puff/17 Mcg Inhaler) 2 puff INHALE QID [facility] Last Admin: 12/08/24 16:35 Dose: 2 puff Documented By: JAE Magnesium Hydroxide (Milk Of Magnesia 30 Ml Oral.Susp) 30 ml PO DAILY PRN PRN Reason: Constipation Melatonin (Melatonin 3 Mg Tablet) 9 mg PO BEDTIME PRN PRN Reason: Insomnia Multivitamins/Vitamin C (Multivitamin Tablet) 1 tab PO DAILY [facility] Last Admin: 12/08/24 08:21 Dose: 1 tab Documented By: MARIA A Omeprazole (Omeprazole 20 Mg Capsule.Dr) 20 mg PO BID@0630,1630 [facility] Last Admin: 12/08/24 16:47 Dose: 20 mg Documented By: MARIA A Ondansetron HCl (Ondansetron Hcl 4 Mg/2 Ml Vial) 4 mg IVPUSH Q8H PRN PRN Reason: Nausea and Vomiting Potassium Chloride (Potassium Chloride Er 10 Meq Tablet.Er) 30 meq PO DAILY [facility] Last Admin: 12/08/24 08:21 Dose: 30 meq Documented By: MARIA A Warfarin Sodium (Warfarin Sodium 1.25 Mg Halftab) 1.25 mg PO MOWEFRSA@1800 [facility] Last Admin: 12/07/24 18:03 Dose: 1.25 mg Documented By: BEAR Warfarin Sodium (Warfarin Sodium 2.5 Mg Tablet) 2.5 mg PO SUTUTH@1800 [facility] Last Admin: 12/08/24 17:52 Dose: 2.5 mg Documented By: MARIA A Labs 12/08/24 06:27 12/08/24 06:27 Labs: Laboratory Results - last 24 hr 12/08/24 06:27 MCV 89.3 MCH 29.1 MCHC 32.6 RDW 18.6 H Plt Count 112 L MPV 11.3 Immature Gran % (Auto) 0.2 Neut % (Auto) 78.1 H Lymph % (Auto) 14.6 L [place] % (Auto) 6.2 Eos % (Auto) 0.7 Baso % (Auto) 0.2 Lymph # (Auto) 0.7 L [place] # (Auto) 0.3 Eos # (Auto) 0.0 Baso # (Auto) 0.0 Abs Immat Gran (auto) 0.01 Absolute Neuts (auto) 3.5 Absolute Nucleated RBC 0.000 Nucleated RBC % (auto) 0.0 PT 28.9 H INR 2.5 H Anion Gap 12 Estim Creat Clear Calc 39.4 Estimated GFR 51 Random Glucose 129 H Calcium 8.6 B-Natriuretic Peptide 3646 H Assessment and Plan (1) HFrEF (heart failure with reduced ejection fraction): Status: Acute Assessment and Plan: 84 years old lady with PMH of systolic CHF s\p PPM placement ,CKD3, HLD, HTN, Afib , GORDON, COPD among others who is presenting with worsening SOB and edema for the last week. Acute dCHF exacerbation Elevated BNP CXR showing bilateral pulm edema recent Echo last week at [facility] , asked ER to get a copy Cardiology consult for PPM interrogation and advice (recently changed the PPM) IV Lasix 40 mg bid for now follow BNP monitor response Chronic bilateral wounds followed at wound clinic wound care nurse evjuani Paroxysmal AFib INR 2.3 Monitor INR continue warfarin, carvedilol, amiodarone Hyperlipidemia Statin COPD Inhalers GERD PPI GORDON CPAP wound care: Turn and Reposition every 2 hours and as needed for patient comfort.? Use pillows or wedges to support off loading positions. Off Load all bony prominences with use of pillows and heel boots if needed.? Apply Preventative foams where needed. ? Monitor for incontinence and moisture control, use barrier creams when needed for prevention and treatment. Provide adequate and supplemental nutrition.? When applicable maintain blood glucose levels per Providers order. BLE - Cleanse with NS, pat dry. Apply skin prep to periwound. Cover wound bed with Durafiber AG, followed by dry gauze, wrap. Change every other day. Continue follow up outpt wound clinic as scheduled. Full code reason for inpateint hospitalization: IV diuresis Quality Stroke Does the patient have a stroke diagnosis?: No VTE Prior VTE?: No VTE Risk Level:: Medical - moderate - high VTE Device Contraindication: Treatment Not Indicated VTE Drug Contraindication: N/A - Med Ordered
[2024-12-09] VITALS (10 sets, daily range): BP systolic 104–112; BP diastolic 53–62; PULSE 66–86; RESP 15–20; TEMP 36.2–36.9; O2SAT 90–100; BMI 27.9
[2024-12-09 06:47] LABS: Anion Gap 11 (12-20); Blood Urea Nitrogen 21 mg/dL (9-16); Calcium 8.4 mg/dL (8.4-10.2); Carbon Dioxide 32 mmol/L (22-29); Chloride 105 mmol/L (96-108); Creatinine Clr Calc Pharmacy 38.7; Estimated Glomerular Filt Rate 50; Potassium 4.5 mmol/L (3.3-5.1); Sodium 143 mmol/L (135-145)
[2024-12-09 06:50] LABS: INTERNATIONAL NORM RATIO 3.5 (0.9-1.1); Prothrombin Time 40.0 SEC (10.9-12.4)
[2024-12-09 06:54] LABS: B Type Natriuretic Peptide 3855 pg/mL (<100)
--- NOTE | 2024-12-09 07:00 | CA_ITS ---
Transthoracic Echocardiogram Patient (Last, First, Middle): Ramona Pinon J Gender: Female Date of : 1940 Age: 84 Procedure Date: 12/09/2024 Procedure Type: Transthoracic E[place] [facility]: 160.02 cm Weight: 71.22 kg BSA: 1.74 m2 Heart Rate: bpm BP: 104 / 60 mmHg Risk Assessment Analyst: SB Referring MD: Eliana Humphrey MD Symptoms: murmur Study Quality: Adequate/Contrast ECG Rhythm: Paced Conclusions: - Mildly increased left ventricular cavity size. There is normal left ventricular wall thickness. The left ventricular systolic function is severely decreased. The visually estimated ejection fraction is between 10-15%. - Moderately increased right ventricular cavity size. There is moderately decreased right ventricular systolic function. There is a pacemaker wire seen in the right ventricle. - The left atrium is severely dilated. - A bioprosthetic mitral valve is present. The prosthetic mitral valve appears to be functioning normally. - Significantly elevated right atrial pressure. Severe pulmonary hypertension is present Findings Procedure Information Contrast agent, definity, is being given per protocol without apparent complications. Left Ventricle Mildly increased left ventricular cavity size. There is normal left ventricular wall thickness. The left ventricular systolic function is severely decreased. The visually estimated ejection fraction is between 10 15%. Diastolic function is indeterminate on the basis of available data. Right Ventricle Moderately increased right ventricular cavity size. There is moderately decreased right ventricular systolic function. There is a pacemaker wire seen in the right ventricle. Atria The left atrium is severely dilated. The right atrium is likely dilated. Aortic Valve Normal aortic valve structure and function. There is no aortic valve stenosis. There is no aortic valve regurgitation. Mitral Valve A bioprosthetic mitral valve is present. The prosthetic mitral valve appears to be functioning normally. There is no mitral valve regurgitation. There is no mitral valve stenosis. Pulmonic Valve The pulmonic valve is normal. There is trace pulmonic valve regurgitation. Tricuspid Valve There is moderate tricuspid valve regurgitation. The right ventricular systolic pressure is 74 mmHg. Significantly elevated right atrial pressure. Severe pulmonary hypertension is present. Great Vessels All visible segments of the aorta are normal in size. The visualized portions of the pulmonary artery and branches are normal. Venous The inferior vena cava is severely dilated and does not collapse with inspiration. Pericardium/Pleural There is no evidence of pericardial effusion. Prior Study Comparison Changes noted compared to prior study dated: 10/08/2022. EF 10-15%, Moderate RV dysfunction. Measurements 2D Linear Measurements IVSd: 0.83 0.6-0.9/0.6-1.0 cm LVIDd: 6.07 3.9-5.3/4.2-5.9 cm LVIDd Index: 3.49 2.4-3.2/2.2-3.1 cm/m2 LVIDs: 5.58 2.0-3.6 cm LVPWd: 0.78 0.7-1.1 cm LA Diam: 5.60 2.7-3.8/3.0-4.0 cm LAIDs Index: 3.22 1.5-2.3 cm/m2 LV Mass: 239.80 67-162/88-224 g LV Mass Index: 137.82 43-95/49-115 g/m2 LVOT Diam: 2.20 3.0+(-)1.3 cm 2D Systolic Function EF 4C: 6.18 >55% EF 2C: 18.80 >55% EF BiP: 12.40 >55% Mitral Valve MV VTI: 0.38 MV Pk Sivakumar: 1.68 MV Mn Sivakumar: 0.79 MV Pk Grad: 11.00 MV Mn Grad: 4.00 MV Pk E: 1.57 MV Decel Time: 210.00 PHT: 62.00 MVA PHT: 3.55 MVA Continuity: 1.13 Decel [place]: 7.45 Aortic Valve AoV Pk Sivakumar: 1.04 AoV Mn Sivakumar: 0.74 AoV VTI: 0.21 AoV Pk Grad: 4.00 Aov Mn Grad: 2.00 RORY Cont.VTI: 2.07 LVOT LVOT Pk Sivakumar: 0.59 LVOT Mn Sivakumar: 0.40 LVOT VTI: 0.11 LVOT Pk Grad: 1.00 LVOT Mn Grad: 1.00 LVOT Diam: 2.20 LVOT Area: 3.80 Diastolic Function MV Pk E: 1.57 Right Ventricle TAPSE (mm): 12.10 TVS' Sivakumar: 5.50 Tricuspid Valve TV Pk Sivakumar: 1.34 TV Mn Sivakumar: 0.76 TV Pk Grad: 7.00 TV Mn Grad: 3.00 TR Pk Sivakumar: 3.83 TR Pk Grad: 59.00 RA Press: 15.00 RVSP: 74.00 Great Vessels Aorta Sinus of Valsalva: 3.00 2.0-3.5 cm Ao Asc: 3.30 2.1-3.4 cm Pulmonary Valve PV Pk Sivakumar: 0.77 Peak PV Grad: 2.00 Updated in Other Vendor System with Status of Final Bam Dickinson MD electronically signed on 12/10/2024 10:40:35 AM with status of Final
[2024-12-09] MEDS: Aspirin Enteric Coated 81 MG TABLET.DR PO (07:31)
[2024-12-09] MEDS: Furosemide 40 MG/4 ML VIAL 80 MG IVPUSH (07:32)
[2024-12-09] MEDS: Potassium Chloride ER 10 MEQ TABLET.ER 30 MEQ PO (07:35)
[2024-12-09] MEDS: Ipratropium Bromide 1 PUFF/17 MCG INHALER 2 PUFF INHALE ×4 (07:38→19:26)
--- NOTE | 2024-12-09 10:27 | MHC.CM.PN ---
Per ROUNDS discussion, Patient is not yet medically cleared for dc (CHF/IV Lasix); home/resume services is the goal and CM will continue to follow.
--- NOTE | 2024-12-09 12:04 | HO.WOUND ---
Wound Consult: Initial 84yr old?female admitted to [facility] [place]07/24- See progress notes and H&P for detailed history.? Wound consult placed for Bilateral Lower Legs.? Patient agreeable to assessment and photo documentation.? Patient is pleasantly confused at times easily redirectable. Left Heel Left Heel - Lateral Right Heel Bilateral Heels Etiology: ?Deep Tissue Injury ?Present on Admission Wound Bed: dark purple nonblanchable tissue with some opening noted to right heel Drainage / Odor: none noted Edges: ? well defined Flor[place] wound: ?pink intact tissue No Induration, Fluctuance or Warmth noted Pain: right heel noted for significant pain Goals of Treatment: ? off load pressure and durafiber to right heel Left Leg Right Leg Right Medial Leg Bilateral Legs Etiology: ?Venous ulcerations?Present on Admission Measurements: various sizes measuring less then 2cm Wound Bed: various stages some red and clean some with marbled yellow slough Drainage / Odor: non noted Edges: ? irregular [place] wound: dry thin tissue ? No Induration, Fluctuance or Warmth noted Pain: painful to touch Goals of Treatment: ? Durafiber for moisture management Coccyx Etiology: Unstageable Pressure Injury ??Present on Admission Measurements: 0.4cm x 0.2cm x 0.2cm Wound Bed: adherent yellow slough Drainage / Odor: None noted Edges: ? well defined [place] wound: ?red pink slow to ely moist tissue No Induration, Fluctuance or Warmth noted Pain: tenderness reported Goals of Treatment: ? Off load pressure and triad to allow for autolytic debridement Skin Folds Etiology: ?MASD - Intertrigo ?Present on Admission Wound Bed: area of some deeper parttial thickness tissue loss noted - red yellow wound bed noted Drainage / Odor: none noted Edges: ? mirrored and along base of fold Goals of Treatment: ?Interdry to translocate moisture Recommendations: 1. Turn and Reposition every 2 hours and as needed for patient comfort.? Use pillows or wedges to support off loading positions. 2. Off Load all bony prominences with use of pillows and heel boots if needed.? Apply Preventative foams where needed. ? 3. Monitor for incontinence and moisture control, use barrier creams when needed for prevention and treatment. 4. Provide adequate and supplemental nutrition.? 5. Continue low air loss mattress. 6. When applicable maintain blood glucose levels per Providers order. Buttock / coccyx - Off Load Pressure with Q2 hr turns and use of pillows - Cleanse with PH balance spray or wipes, pat dry. ?Apply thin layer of Triad to wound bed - only pat and dab no scrub and rub when soiling occurs. Reapply thin layer PRN after each episode of incontinence. use waffle cushion when up to chair. Left Foot - Apply skin prep to anterior foot - cover dry scab with foam dressing. Change every 3 days and PRN. Right Leg - Cleanse with NS moist gauze, apply skin prep to periwound. Apply Durafiber AG to wound bed, cover with dry gauze and wrap. Change every 3 days. Skin Folds - Routine cleansing. Tuck Interdry AG Sheet into skin fold to wick and translocate moisture away from skin fold.? Be sure to leave at least 2 inch of fabric exposed outside of skin fold.? Change after 5 days or when soiled. Heels- Elevate heels off of bed / recliner surface with pillows. Cleanse with NS moist gauze, apply skin prep. Right heel apply durafiber AG to open area. Apply heel foam dressing. Change every 3 days. Continue follow up with outpatient wound clinic as scheduled. Re-consult wound care Nurse for wound deterioration or wound changes.
--- NOTE | 2024-12-09 12:46 | MHC.CLN ---
NUTRITION DIET=2 GRAM SODIUM. SKIN WITH DTI TO BILATERAL HEELS AND UNSTAGEABLE AREA TO COCCYX. ADDING ENSURE MAX PROTEIN BID TO PROMOTE SKIN INTEGRITY. SUPPLEMENT PROVIDES 300 KCALS, 60 G PROTEIN. FOLLOW FOR PO INTAKE AND SKIN INTEGRITY. SEE CLINICAL NUTRITION ASSESSMENT 12/09/24.
--- NOTE | 2024-12-09 14:52 | PM.PNCARD ---
Subjective Subjective Date of Service: 12/09/24 Interval history: Seen and examined at bedside. Continues to have shortness of breath and orthopnea. Physical Exam Vital Signs: Last Vital Signs Temp 97.7 F 12/09/24 10:57 Pulse 78 12/09/24 11:32 Resp 18 12/09/24 11:32 BP 104/60 12/09/24 10:57 Pulse Ox 100 12/09/24 10:57 O2 Del Method Nasal Cannula 12/09/24 10:57 O2 Flow Rate 2 12/09/24 10:57 BMI result Body Mass Index 27.9 GENERAL APPEARANCE: in no acute distress, pleasant. NECK: no carotid bruit, positive jugular venous distention up to angle of jaw. SKIN: no suspicious lesions, warm and dry. HEART: Holosystolic murmur at the apex, regular rate and rhythm. LUNGS: Bibasilar crackles. ABDOMEN: soft, nontender. EXTREMITIES: Mild edema. Both legs are wrapped. PERIPHERAL PULSES: equal. NEUROLOGIC: No gross deficits, AAO X 3 Objective Labs and Meds 12/08/24 06:27 12/09/24 06:15 Lab results: Laboratory Results - last 24 hr 12/09/24 06:15 PT 40.0 H D INR 3.5 H Sodium 143 Potassium 4.5 Chloride 105 Carbon Dioxide 32 H Anion Gap 11 L BUN 21 H Creatinine 1.06 Estim Creat Clear Calc 38.7 Estimated GFR 50 Random Glucose 110 Calcium 8.4 B-Natriuretic Peptide 3855 H Progress Note: A&P Assessment and plan (1) Acute on chronic systolic heart failure: Status: Acute (2) Mitral regurgitation: Status: Acute Plan [age] year female with history of mitral valve disease status post mitral valve replacement and ring annuloplasty tricuspid valve, 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 Continues to be volume overloaded. Still quite symptomatic. She has not been on any vasodilators. We will try low-dose captopril to see if she can tolerate TANVI inhibitor if she does we will start her on lisinopril equivalent dose. She has mitral regurgitation murmur on examination. She previously had mitral valve replacement. I will repeat echocardiogram to assess the mitral valve in more detail. Thank you for allowing me to participate in the care of your patient. Please feel free to contact me if you have any questions. Time Spent With Patient Time: Total time managing care of this patient today ____ minutes. Progress Note: Quality Stroke Does the patient have a stroke diagnosis?: No Procedures Date of Service Date of Service: 12/09/24
--- NOTE | 2024-12-09 15:16 | P.PNIM_ITS ---
Subjective Subjective Date of Service: 12/09/24 Interval History: chf Review of Systems sob slightly improving no chest pain Review of Systems: Yes all other systems are reviewed and are negative Physical Exam 2 Vital Signs: Vital Signs: Last Vital Signs Temp 97.7 F 12/09/24 10:57 Pulse 78 12/09/24 11:32 Resp 18 12/09/24 11:32 BP 104/60 12/09/24 10:57 Pulse Ox 100 12/09/24 10:57 O2 Del Method Nasal Cannula 12/09/24 10:57 O2 Flow Rate 2 12/09/24 10:57 BMI result Body Mass Index 27.9 Appearance: Alert.? Oriented X3.? cvs: rrr, [id number] . res: clear to auscultation ,no rhonchii or wheezing abd: no rebound or guarding ,nt, bs present. ext pulses present , no cyanosis . neuro: axo3 , nonfocal. Objective Data Active Medications Albuterol Sulfate (Albuterol Sulfate 90 Mcg 8 Gm Inhaler) 2 puff INHALE Q4H PRN PRN Reason: shortness of breath or wheezing Amiodarone HCl (Amiodarone Hcl 200 Mg Tablet) 200 mg PO DAILY [facility] Last Admin: 12/09/24 07:31 Dose: 200 mg Documented By: MARIA A Ascorbic Acid (Ascorbic Acid 500 Mg Tablet) 500 mg PO DAILY [facility] Last Admin: 12/09/24 07:31 Dose: 500 mg Documented By: MARIA A Aspirin (Aspirin Enteric Coated 81 Mg Tablet.) 81 mg PO DAILY [facility] Last Admin: 12/09/24 07:31 Dose: 81 mg Documented By: MARIA A Atorvastatin Calcium (Atorvastatin Calcium 80 Mg Tablet) 80 mg PO DAILY [facility] Last Admin: 12/09/24 07:31 Dose: 80 mg Documented By: MARIA A Benzonatate (Benzonatate 100 Mg Capsule) 100 mg PO TID PRN PRN Reason: Cough Captopril (Captopril 12.5 Mg Tablet) 6.25 mg PO TID [facility]; Protocol Carvedilol (Carvedilol 6.25 Mg Tablet) 6.25 mg PO BID [facility]; Protocol Last Admin: 12/09/24 07:31 Dose: 6.25 mg Documented By: MARIA A Furosemide (Furosemide 40 Mg/4 Ml Vial) 80 mg IVPUSH DAILY [facility]; Protocol Last Admin: 12/09/24 07:32 Dose: 80 mg Documented By: MARIA A Ipratropium [place] (Ipratropium [place] 1 Puff/17 Mcg Inhaler) 2 puff INHALE QID [facility] Last Admin: 12/09/24 11:30 Dose: 2 puff Documented By: GUSTAVO Magnesium Hydroxide (Milk Of Magnesia 30 Ml Oral.Susp) 30 ml PO DAILY PRN PRN Reason: Constipation Melatonin (Melatonin 3 Mg Tablet) 9 mg PO BEDTIME PRN PRN Reason: Insomnia Multivitamins/Vitamin C (Multivitamin Tablet) 1 tab PO DAILY [facility] Last Admin: 12/09/24 07:31 Dose: 1 tab Documented By: MARIA A Omeprazole (Omeprazole 20 Mg Capsule.Dr) 20 mg PO BID@0630,1630 [facility] Last Admin: 12/09/24 05:39 Dose: 20 mg Documented By: DARA Ondansetron HCl (Ondansetron Hcl 4 Mg/2 Ml Vial) 4 mg IVPUSH Q8H PRN PRN Reason: Nausea and Vomiting Potassium Chloride (Potassium Chloride Er 10 Meq Tablet.Er) 30 meq PO DAILY [facility] Last Admin: 12/09/24 07:35 Dose: 30 meq Documented By: MARIA A Warfarin Sodium (Warfarin Sodium 1.25 Mg Halftab) 1.25 mg PO MOWEFRSA@1800 [facility] On Hold: 12/09/24 08:41 Last Admin: 12/07/24 18:03 Dose: 1.25 mg Documented By: BEAR Warfarin Sodium (Warfarin Sodium 2.5 Mg Tablet) 2.5 mg PO SUTUTH@1800 [facility] On Hold: 12/09/24 07:38 Last Admin: 12/08/24 17:52 Dose: 2.5 mg Documented By: MARIA A Labs 12/08/24 06:27 12/09/24 06:15 Labs: Laboratory Results - last 24 hr 12/09/24 06:15 PT 40.0 H D INR 3.5 H Anion Gap 11 L Estim Creat Clear Calc 38.7 Estimated GFR 50 Random Glucose 110 Calcium 8.4 B-Natriuretic Peptide 3855 H Assessment and Plan (1) HFrEF (heart failure with reduced ejection fraction): Status: Acute Assessment and Plan: 84 years old lady with PMH of systolic CHF s\p PPM placement ,CKD3, HLD, HTN, Afib , GORDON, COPD among others who is presenting with worsening SOB and edema for the last week. Acute dCHF exacerbation Elevated BNP CXR showing bilateral pulm edema recent Echo last week at [facility] , asked ER to get a copy Cardiology consult for PPM interrogation and advice (recently changed the PPM) echo IV Lasix 40 mg bid for now follow BNP monitor response Chronic bilateral wounds followed at wound clinic wound care nurse evjuani Paroxysmal AFib INR supratherapeutic Monitor INR holdwarfarin continue carvedilol, amiodarone Hyperlipidemia Statin COPD Inhalers GERD PPI GORDON CPAP wound care: Turn and Reposition every 2 hours and as needed for patient comfort.? Use pillows or wedges to support off loading positions. Off Load all bony prominences with use of pillows and heel boots if needed.? Apply Preventative foams where needed. ? Monitor for incontinence and moisture control, use barrier creams when needed for prevention and treatment. Provide adequate and supplemental nutrition.? When applicable maintain blood glucose levels per Providers order. BLE - Cleanse with NS, pat dry. Apply skin prep to periwound. Cover wound bed with Durafiber AG, followed by dry gauze, wrap. Change every other day. Continue follow up outpt wound clinic as scheduled. Full code reason for inpateint hospitalization: IV diuresis Quality Stroke Does the patient have a stroke diagnosis?: No VTE Prior VTE?: No VTE Risk Level:: Medical - moderate - high VTE Device Contraindication: Treatment Not Indicated VTE Drug Contraindication: N/A - Med Ordered
[2024-12-10] VITALS (10 sets, daily range): BP systolic 95–124; BP diastolic 52–64; PULSE 63–75; RESP 16–20; TEMP 36.1–36.7; O2SAT 96–100
[2024-12-10 07:33] LABS: INTERNATIONAL NORM RATIO 4.3 (0.9-1.1); Prothrombin Time 49.9 SEC (10.9-12.4)
[2024-12-10 07:43] LABS: Anion Gap 11 (12-20); Blood Urea Nitrogen 21 mg/dL (9-16); Calcium 8.5 mg/dL (8.4-10.2); Carbon Dioxide 32 mmol/L (22-29); Chloride 104 mmol/L (96-108); Creatinine Clr Calc Pharmacy 43.7; Estimated Glomerular Filt Rate 57; Potassium 4.1 mmol/L (3.3-5.1); Sodium 143 mmol/L (135-145)
[2024-12-10] MEDS: Ipratropium Bromide 1 PUFF/17 MCG INHALER 2 PUFF INHALE ×4 (07:47→19:37)
[2024-12-10] MEDS: Furosemide 40 MG/4 ML VIAL 80 MG IVPUSH (08:56)
[2024-12-10] MEDS: Potassium Chloride ER 10 MEQ TABLET.ER 30 MEQ PO (08:57)
[2024-12-10] MEDS: Aspirin Enteric Coated 81 MG TABLET.DR PO (08:58)
--- NOTE | 2024-12-10 09:37 | MHC.CM.PN ---
CM met with Patient at bedside to discuss PT's recommendation for STR; Patient prefers to go home but was agreeable to a referral to [facility], where she has been in the past. CM later received a call from Patient's Grandson/Jermaine @ [phone], after he had spoken further with Patient and he explained that they prefer [facility] and/or [facility], not [facility]. CM will continue to follow.
--- NOTE | 2024-12-10 15:15 | P.PNCA_ITS ---
Subjective Subjective Date of Service: 12/10/24 Interval history: Seen examined at bedside. She continues to be on supplemental oxygen. Overall she feels better than before but still has volume overload. Echocardiography reviewed which showed severe biventricular function with tricuspid regurgitation. 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 Physical Exam Vital Signs: Last Vital Signs Temp 97.6 F 12/10/24 11:37 Pulse 73 12/10/24 11:37 Resp 20 12/10/24 11:37 BP 104/64 12/10/24 11:37 Pulse Ox 96 12/10/24 11:37 O2 Del Method Nasal Cannula 12/10/24 11:37 O2 Flow Rate 2 12/10/24 11:37 BMI result Body Mass Index 27.9 GENERAL APPEARANCE: in no acute distress, pleasant. NECK: no carotid bruit, positive jugular venous distention up to angle of jaw. SKIN: no suspicious lesions, warm and dry. HEART: Holosystolic murmur, regular rate and rhythm. LUNGS: Bibasilar crackles. ABDOMEN: soft, nontender. EXTREMITIES: Mild edema. Both legs are wrapped. PERIPHERAL PULSES: equal. NEUROLOGIC: No gross deficits, AAO X 3 Objective Labs and Meds 12/08/24 06:27 12/10/24 06:52 Lab results: Laboratory Results - last 24 hr 12/10/24 06:52 Hold Purple Top SEE NOTE PT 49.9 H D INR 4.3 H Sodium 143 Potassium 4.1 Chloride 104 Carbon Dioxide 32 H Anion Gap 11 L BUN 21 H Creatinine 0.94 Estim Creat Clear Calc 43.7 Estimated GFR 57 Random Glucose 123 H Calcium 8.5 Progress Note: A&P Assessment and plan (1) HFrEF (heart failure with reduced ejection fraction): Status: Acute (2) Acute on chronic systolic heart failure: Status: Acute Plan [age] year female who is presenting for acute on chronic congestive heart failure. She has severe biventricular dysfunction by echocardiography. She recently had [employer] done. Clinically continues to be volume overloaded. I think we continue the IV diuretics at this point. I am adding spironolactone 12.5 mg daily. Stopping the potassium supplements. We added low-dose of captopril on her and she is tolerating that. I am increasing the dose. If she tolerates this well then she will be changed to equivalent dose of lisinopril. Continue the carvedilol. She will follow-up with Dr. Franklin Jain after discharge. We will follow along with you. Thank you for allowing me to participate in the care of your patient. Please feel free to contact me if you have any questions. Time Spent With Patient Time: Total time managing care of this patient today ____ minutes. Progress Note: Quality Stroke Does the patient have a stroke diagnosis?: No Procedures Date of Service Date of Service: 12/10/24
--- NOTE | 2024-12-10 16:57 | HO.PM.IMPN ---
Subjective Subjective Date of Service: 12/10/24 Interval History: chf Review of Systems sob somewhat improving no chest pain Review of Systems: Yes all other systems are reviewed and are negative Physical Exam Vital Signs: Vital Signs: Last Vital Signs Temp 97.7 F 12/10/24 16:00 Pulse 73 12/10/24 16:00 Resp 20 12/10/24 16:00 BP 110/59 L 12/10/24 16:00 Pulse Ox 99 12/10/24 16:00 O2 Del Method Nasal Cannula 12/10/24 16:00 O2 Flow Rate 2 12/10/24 16:00 BMI result Body Mass Index 27.9 Appearance: Alert.? Oriented X3.? cvs: rrr, [id number] . res: clear to auscultation ,no rhonchii or wheezing abd: no rebound or guarding ,nt, bs present. ext pulses present , no cyanosis . neuro: axo3 , nonfocal. Objective Data Active Medications Albuterol Sulfate (Albuterol Sulfate 90 Mcg 8 Gm Inhaler) 2 puff INHALE Q4H PRN PRN Reason: shortness of breath or wheezing Amiodarone HCl (Amiodarone Hcl 200 Mg Tablet) 200 mg PO DAILY [facility] Last Admin: 12/10/24 08:58 Dose: 200 mg Documented By: NIRALI Ascorbic Acid (Ascorbic Acid 500 Mg Tablet) 500 mg PO DAILY [facility] Last Admin: 12/10/24 08:57 Dose: 500 mg Documented By: NIRALI Aspirin (Aspirin Enteric Coated 81 Mg Tablet.) 81 mg PO DAILY [facility] Last Admin: 12/10/24 08:58 Dose: 81 mg Documented By: NIRALI Atorvastatin Calcium (Atorvastatin Calcium 80 Mg Tablet) 80 mg PO DAILY [facility] Last Admin: 12/10/24 08:57 Dose: 80 mg Documented By: NIRALI Benzonatate (Benzonatate 100 Mg Capsule) 100 mg PO TID PRN PRN Reason: Cough Captopril (Captopril 12.5 Mg Tablet) 12.5 mg PO TID [facility]; Protocol Carvedilol (Carvedilol 6.25 Mg Tablet) 6.25 mg PO BID [facility]; Protocol Last Admin: 12/10/24 08:58 Dose: 6.25 mg Documented By: NIRALI Furosemide (Furosemide 40 Mg/4 Ml Vial) 80 mg IVPUSH DAILY [facility]; Protocol Last Admin: 12/10/24 08:56 Dose: 80 mg Documented By: NIRALI Ipratropium [place] (Ipratropium [place] 1 Puff/17 Mcg Inhaler) 2 puff INHALE QID [facility] Last Admin: 12/10/24 15:40 Dose: 2 puff Documented By: WILBER Magnesium Hydroxide (Milk Of Magnesia 30 Ml Oral.Susp) 30 ml PO DAILY PRN PRN Reason: Constipation Melatonin (Melatonin 3 Mg Tablet) 9 mg PO BEDTIME PRN PRN Reason: Insomnia Multivitamins/Vitamin C (Multivitamin Tablet) 1 tab PO DAILY [facility] Last Admin: 12/10/24 08:57 Dose: 1 tab Documented By: NIRALI Omeprazole (Omeprazole 20 Mg Capsule.) 20 mg PO BID@0630,1630 [facility] Last Admin: 12/10/24 06:15 Dose: 20 mg Documented By: KUMAR Ondansetron HCl (Ondansetron Hcl 4 Mg/2 Ml Vial) 4 mg IVPUSH Q8H PRN PRN Reason: Nausea and Vomiting Spironolactone (Spironolactone 25 Mg Tablet) 12.5 mg PO DAILY [facility]; Protocol Warfarin Sodium (Warfarin Sodium 1.25 Mg Halftab) 1.25 mg PO MOWEFRSA@1800 [facility] On Hold: 12/09/24 08:41 Last Admin: 12/07/24 18:03 Dose: 1.25 mg Documented By: BEAR Warfarin Sodium (Warfarin Sodium 2.5 Mg Tablet) 2.5 mg PO SUTUTH@1800 [facility] On Hold: 12/09/24 07:38 Last Admin: 12/08/24 17:52 Dose: 2.5 mg Documented By: MARIA A Labs 12/08/24 06:27 12/10/24 06:52 Labs: Laboratory Results - last 24 hr 12/10/24 06:52 Hold Purple Top SEE NOTE PT 49.9 H D INR 4.3 H Anion Gap 11 L Estim Creat Clear Calc 43.7 Estimated GFR 57 Random Glucose 123 H Calcium 8.5 Assessment and Plan (1) Acute on chronic systolic heart failure: Status: Acute (2) HFrEF (heart failure with reduced ejection fraction): Status: Acute Assessment and Plan: 84 years old lady with PMH of systolic CHF s\p PPM placement ,CKD3, HLD, HTN, Afib , GORDON, COPD among others who is presenting with worsening SOB and edema for the last week. Acute dCHF exacerbation Elevated BNP CXR showing bilateral pulm edema recent Echo last week at [facility] , asked ER to get a copy Cardiology consult for PPM interrogation and advice (recently changed the PPM) echo:Mildly increased left ventricular cavity size. There is normal.left ventricular wall thickness. The left ventricular systolic function is severely decreased. The visually estimated ejection fraction is between 10-15%. Moderately increased right ventricular cavity size. There is moderately decreased right ventricular systolic function. There is a pacemaker wire seen in the right ventricle.The left atrium is severely dilated. plan: IV Lasix 80 mg iv.captopril , coreg. follow BNP monitor response Chronic bilateral wounds followed at wound clinic wound care nurse rodney Paroxysmal AFib INR supratherapeutic Monitor INR hold warfarin continue carvedilol, amiodarone Hyperlipidemia Statin COPD Inhalers GERD PPI GORDON CPAP wound care: Turn and Reposition every 2 hours and as needed for patient comfort.? Use pillows or wedges to support off loading positions. Off Load all bony prominences with use of pillows and heel boots if needed.? Apply Preventative foams where needed. ? Monitor for incontinence and moisture control, use barrier creams when needed for prevention and treatment. Provide adequate and supplemental nutrition.? When applicable maintain blood glucose levels per Providers order. BLE - Cleanse with NS, pat dry. Apply skin prep to periwound. Cover wound bed with Durafiber AG, followed by dry gauze, wrap. Change every other day. Continue follow up outpt wound clinic as scheduled. Full code reason for inpateint hospitalization: IV diuresis Quality Stroke Does the patient have a stroke diagnosis?: No VTE Prior VTE?: No VTE Risk Level:: Medical - moderate - high VTE Device Contraindication: Treatment Not Indicated VTE Drug Contraindication: N/A - Med Ordered
[2024-12-11] VITALS (11 sets, daily range): BP systolic 96–127; BP diastolic 53–64; PULSE 68–84; RESP 15–28; TEMP 36.1–36.9; O2SAT 93–100
[2024-12-11 07:19] LABS: Prothrombin Time 59.3 SEC (10.9-12.4)
[2024-12-11 07:20] LABS: Anion Gap 10 (12-20); Blood Urea Nitrogen 26 mg/dL (9-16); Calcium 9.0 mg/dL (8.4-10.2); Carbon Dioxide 34 mmol/L (22-29); Chloride 102 mmol/L (96-108); Creatinine Clr Calc Pharmacy 36.0; Estimated Glomerular Filt Rate 46; Potassium 4.3 mmol/L (3.3-5.1); Sodium 142 mmol/L (135-145)
[2024-12-11 07:26] LABS: B Type Natriuretic Peptide 2810 pg/mL (<100)
[2024-12-11] MEDS: Ipratropium Bromide 1 PUFF/17 MCG INHALER 2 PUFF INHALE ×4 (07:28→20:16)
[2024-12-11 07:35] LABS: INTERNATIONAL NORM RATIO 5.2 (0.9-1.1)
[2024-12-11] MEDS: Furosemide 40 MG/4 ML VIAL 80 MG IVPUSH (08:39)
[2024-12-11] MEDS: Aspirin Enteric Coated 81 MG TABLET.DR PO (08:40)
--- NOTE | 2024-12-11 13:16 | P.CDIM_ITS ---
PROVIDER RESPONSE TEXT: To clarify, the appropriate diagnosis supported by the clinical indicators: Other (explain): DTI QUERY TEXT: PHYSICIAN'S DOCUMENTATION REQUEST Date of Query: 12/11/2024 10:52 AM EDT Patient Name: Ramona Pinon Admit Date: 12/07/2024 Dear Eliana Humphrey MD, A review of the medical record indicates additional documentation may be needed. Please review below and update the documentation accordingly. Clinical Indicators: per Wound note 12/09/24: bilateral heels deep tissue injury, present on admission off load pressure and durafiber to right heel Based on the above, could you please provide further information regarding the ulcer/wound: Pressure-induced (decubitus) deep tissue damage bilateral heels Other (explain) Clinically unable to determine (explain) Thank you, Shirley Foreman RN Use of terms such as suspected, likely, concern for, or probable (associated with a specific diagnosis that is being evaluated, monitored, or treated as if it exists) are acceptable and can be coded in the inpatient setting, when documented at the time of discharge. Please use your independent medical judgment in providing your response. THIS QUERY IS PART OF THE PERMANENT MEDICAL RECORD
--- NOTE | 2024-12-11 13:25 | P.CDIM_ITS ---
PROVIDER RESPONSE TEXT: To clarify, the appropriate diagnosis supported by the clinical indicators: Other (explain): venostasis ulcerations with deep partial thickness tissue loss QUERY TEXT: PHYSICIAN'S DOCUMENTATION REQUEST Date of Query: 12/11/2024 11:42 AM EDT Patient Name: Ramona Pinon Admit Date: 12/07/2024 Dear Eliana Humphrey MD, A review of the medical record indicates additional documentation may be needed. Please review below and update the documentation accordingly. Clinical Indicators: per Wound note 12/09/24: bilateral legs venous ulcerations present on admission Durafiber for moisture management Based on the above, could you please provide further information regarding the severity of the ulcer/wound: Venous stasis ulcer bilateral lower legs skin breakdown only Venous stasis ulcer bilateral lower legs fat layer exposed Venous stasis ulcer bilateral lower legs muscle involvement without necrosis Venous stasis ulcer bilateral lower legs muscle necrosis Venous stasis ulcer bilateral lower legs bone involvement without necrosis Venous stasis ulcer bilateral lower legs bone necrosis Other (explain) Clinically unable to determine (explain) Thank you, Shirley Foreman RN Use of terms such as suspected, likely, concern for, or probable (associated with a specific diagnosis that is being evaluated, monitored, or treated as if it exists) are acceptable and can be coded in the inpatient setting, when documented at the time of discharge. Please use your independent medical judgment in providing your response. THIS QUERY IS PART OF THE PERMANENT MEDICAL RECORD
--- NOTE | 2024-12-11 13:25 | P.CDIM_ITS ---
PROVIDER RESPONSE TEXT: To clarify, the appropriate diagnosis supported by the clinical indicators: Pressure (decubitus) ulcer coccyx, unstageable QUERY TEXT: PHYSICIAN'S DOCUMENTATION REQUEST Date of Query: 12/11/2024 11:48 AM EDT Patient Name: Ramona Pinon Admit Date: 12/07/2024 Dear Eliana Humphrey MD, A review of the medical record indicates additional documentation may be needed. Please review below and update the documentation accordingly. Clinical Indicators: per wound note 12/09/24: coccyx unstageable pressure injury, present on admission Off load pressure and triad to allow for autolytic debridement Based on the above, could you please provide further information regarding the ulcer/wound: Pressure (decubitus) ulcer coccyx, unstageable Other (explain) Clinically unable to determine (explain) Thank you, Shirley Foreman RN Use of terms such as suspected, likely, concern for, or probable (associated with a specific diagnosis that is being evaluated, monitored, or treated as if it exists) are acceptable and can be coded in the inpatient setting, when documented at the time of discharge. Please use your independent medical judgment in providing your response. THIS QUERY IS PART OF THE PERMANENT MEDICAL RECORD
--- NOTE | 2024-12-11 13:37 | MHC.CLN ---
F/U DIET=2 GRAM SODIUM. SKIN WITH DTI TO BILATERAL HEELS AND UNSTAGEABLE AREA TO COCCYX. ADDING ENSURE MAX PROTEIN BID TO PROMOTE SKIN INTEGRITY. SUPPLEMENT PROVIDES 300 KCALS, 60 G PROTEIN. PO INTAKE APPEARS GOOD, APPROX 75%. FOLLOW FOR PO INTAKE AND SKIN INTEGRITY.
--- NOTE | 2024-12-11 15:13 | P.PNIM_ITS ---
Subjective Subjective Date of Service: 12/11/24 Interval History: chf Review of Systems sob seems improving denies any chest pain Physical Exam 2 Vital Signs: Vital Signs: Last Vital Signs Temp 98.1 F 12/11/24 11:06 Pulse 71 12/11/24 11:12 Resp 16 12/11/24 11:12 BP 96/54 L 12/11/24 11:06 Pulse Ox 93 12/11/24 11:06 O2 Del Method Room Air 12/11/24 11:06 O2 Flow Rate 2 12/11/24 03:28 BMI result Body Mass Index 27.9 Appearance: Alert.? Oriented X3.? cvs: rrr, [id number] . res: clear to auscultation ,no rhonchii or wheezing abd: no rebound or guarding ,nt, bs present. ext pulses present , no cyanosis . neuro: axo3 , nonfocal. Objective Data Active Medications Albuterol Sulfate (Albuterol Sulfate 90 Mcg 8 Gm Inhaler) 2 puff INHALE Q4H PRN PRN Reason: shortness of breath or wheezing Amiodarone HCl (Amiodarone Hcl 200 Mg Tablet) 200 mg PO DAILY [facility] Last Admin: 12/11/24 08:40 Dose: 200 mg Documented By: NIRALI Ascorbic Acid (Ascorbic Acid 500 Mg Tablet) 500 mg PO DAILY [facility] Last Admin: 12/11/24 08:41 Dose: 500 mg Documented By: NIRALI Aspirin (Aspirin Enteric Coated 81 Mg Tablet.) 81 mg PO DAILY [facility] Last Admin: 12/11/24 08:40 Dose: 81 mg Documented By: NIRALI Atorvastatin Calcium (Atorvastatin Calcium 80 Mg Tablet) 80 mg PO DAILY [facility] Last Admin: 12/11/24 08:41 Dose: 80 mg Documented By: NIRALI Benzonatate (Benzonatate 100 Mg Capsule) 100 mg PO TID PRN PRN Reason: Cough Carvedilol (Carvedilol 6.25 Mg Tablet) 6.25 mg PO BID [facility]; Protocol Last Admin: 12/11/24 08:40 Dose: 6.25 mg Documented By: NIRALI Furosemide (Furosemide 40 Mg Tablet) 80 mg PO BID@0900,1800 [facility]; Protocol Ipratropium [place] (Ipratropium [place] 1 Puff/17 Mcg Inhaler) 2 puff INHALE QID [facility] Last Admin: 12/11/24 11:12 Dose: 2 puff Documented By: JOHNATHON Lisinopril (Lisinopril 10 Mg Tablet) 10 mg PO DAILY [facility]; Protocol Magnesium Hydroxide (Milk Of Magnesia 30 Ml Oral.Susp) 30 ml PO DAILY PRN PRN Reason: Constipation Melatonin (Melatonin 3 Mg Tablet) 9 mg PO BEDTIME PRN PRN Reason: Insomnia Multivitamins/Vitamin C (Multivitamin Tablet) 1 tab PO DAILY [facility] Last Admin: 12/11/24 08:41 Dose: 1 tab Documented By: NIRALI Omeprazole (Omeprazole 20 Mg Capsule.) 20 mg PO BID@0630,1630 [facility] Last Admin: 12/11/24 06:24 Dose: 20 mg Documented By: SHEREEN Ondansetron HCl (Ondansetron Hcl 4 Mg/2 Ml Vial) 4 mg IVPUSH Q8H PRN PRN Reason: Nausea and Vomiting Spironolactone (Spironolactone 25 Mg Tablet) 12.5 mg PO DAILY [facility]; Protocol Last Admin: 12/11/24 08:41 Dose: 12.5 mg Documented By: NIRALI Warfarin Sodium (Warfarin Sodium 1.25 Mg Halftab) 1.25 mg PO MOWEFRSA@1800 [facility] On Hold: 12/09/24 08:41 Last Admin: 12/07/24 18:03 Dose: 1.25 mg Documented By: BEAR Warfarin Sodium (Warfarin Sodium 2.5 Mg Tablet) 2.5 mg PO SUTUTH@1800 [facility] On Hold: 12/09/24 07:38 Last Admin: 12/08/24 17:52 Dose: 2.5 mg Documented By: MARIA A Labs 12/08/24 06:27 12/11/24 06:52 Labs: Laboratory Results - last 24 hr 12/11/24 06:52 Hold Purple Top SEE NOTE PT 59.3 H INR 5.2 H* Anion Gap 10 L Estim Creat Clear Calc 36.0 Estimated GFR 46 Random Glucose 109 Calcium 9.0 B-Natriuretic Peptide 2810 H Assessment and Plan (1) Acute on chronic systolic heart failure: Status: Acute (2) HFrEF (heart failure with reduced ejection fraction): Status: Acute Assessment and Plan: 84 years old lady with PMH of systolic CHF s\p PPM placement ,CKD3, HLD, HTN, Afib , GORDON, COPD among others who is presenting with worsening SOB and edema for the last week. Acute dCHF exacerbation Elevated BNP CXR showing bilateral pulm edema recent Echo last week at [facility] , asked ER to get a copy Cardiology consult for PPM interrogation and advice (recently changed the PPM) echo:Mildly increased left ventricular cavity size. There is normal.left ventricular wall thickness. The left ventricular systolic function is severely decreased. The visually estimated ejection fraction is between 10-15%. Moderately increased right ventricular cavity size. There is moderately decreased right ventricular systolic function. There is a pacemaker wire seen in the right ventricle.The left atrium is severely dilated. plan: IV lasix , possible switch to po ,captopril , coreg. follow BNP monitor response Chronic bilateral wounds followed at wound clinic wound care nurse rodney Paroxysmal AFib INR supratherapeutic Monitor INR hold warfarin continue carvedilol, amiodarone Hyperlipidemia Statin COPD Inhalers GERD PPI GORDON CPAP wound care: Turn and Reposition every 2 hours and as needed for patient comfort.? Use pillows or wedges to support off loading positions. Off Load all bony prominences with use of pillows and heel boots if needed.? Apply Preventative foams where needed. ? Monitor for incontinence and moisture control, use barrier creams when needed for prevention and treatment. Provide adequate and supplemental nutrition.? When applicable maintain blood glucose levels per Providers order. BLE - Cleanse with NS, pat dry. Apply skin prep to periwound. Cover wound bed with Durafiber AG, followed by dry gauze, wrap. Change every other day. Continue follow up outpt wound clinic as scheduled. Full code reason for inpateint hospitalization: IV diuresis, moniter another day plan to switch po enrique Quality Stroke Does the patient have a stroke diagnosis?: No VTE Prior VTE?: No VTE Risk Level:: Medical - moderate - high VTE Device Contraindication: Treatment Not Indicated VTE Drug Contraindication: N/A - Med Ordered
--- NOTE | 2024-12-11 15:27 | PM.PNCARD ---
Subjective Subjective Date of Service: 12/11/24 Interval history: Seen examined at bedside. She is saying that she is feeling better overall. She is tolerating the captopril and we are changing her to a lisinopril 10 mg daily. Physical Exam Vital Signs: Last Vital Signs Temp 97.1 F 12/11/24 15:14 Pulse 76 12/11/24 15:15 Resp 16 12/11/24 15:15 BP 96/53 L 12/11/24 15:14 Pulse Ox 94 12/11/24 15:14 O2 Del Method Room Air 12/11/24 15:14 O2 Flow Rate 2 12/11/24 03:28 BMI result Body Mass Index 27.9 GENERAL APPEARANCE: in no acute distress, pleasant. NECK: no carotid bruit, positive jugular venous distention with prominent V wave. SKIN: no suspicious lesions, warm and dry. HEART: Holosystolic murmur, regular rate and rhythm. LUNGS: Few crackles to bases. ABDOMEN: soft, nontender. EXTREMITIES: No significant edema. PERIPHERAL PULSES: equal. NEUROLOGIC: No gross deficits, AAO X 3 Objective Labs and Meds 12/08/24 06:27 12/11/24 06:52 Lab results: Laboratory Results - last 24 hr 12/11/24 06:52 Hold Purple Top SEE NOTE PT 59.3 H INR 5.2 H* Sodium 142 Potassium 4.3 Chloride 102 Carbon Dioxide 34 H Anion Gap 10 L BUN 26 H Creatinine 1.14 Estim Creat Clear Calc 36.0 Estimated GFR 46 Random Glucose 109 Calcium 9.0 B-Natriuretic Peptide 2810 H Progress Note: A&P Assessment and plan (1) HFrEF (heart failure with reduced ejection fraction): Status: Acute (2) Acute on chronic systolic heart failure: Status: Acute Plan [age] year female who is presenting for acute on chronic congestive heart failure. She has severe biventricular dysfunction by echocardiography. She recently had FEED PREPARATION OPERATOR done. Volume status overall is improved. She has tricuspid regurgitation and V-wave on examination and volume status is difficult to manage. Overall she is tolerating the addition of TANVI inhibitor and we will change her from captopril to lisinopril. Continue spironolactone and carvedilol. She will follow-up with Dr. Franklin Jain after discharge. We will follow along with you. Thank you for allowing me to participate in the care of your patient. Please feel free to contact me if you have any questions. Time Spent With Patient Time: Total time managing care of this patient today ____ minutes. Progress Note: Quality Stroke Does the patient have a stroke diagnosis?: No Procedures Date of Service Date of Service: 12/11/24
--- NOTE | 2024-12-11 16:16 | MHC.CM.PN ---
EMR reviewed and per MD rounds, pt is not medically cleared for discharge due to management of CHF exacerbation.
[2024-12-12] VITALS (10 sets, daily range): BP systolic 94–116; BP diastolic 44–61; PULSE 64–72; RESP 16–18; TEMP 36.2–36.8; O2SAT 92–100
[2024-12-12 06:31] LABS: INTERNATIONAL NORM RATIO 4.0 (0.9-1.1); Prothrombin Time 46.1 SEC (10.9-12.4)
[2024-12-12] MEDS: Ipratropium Bromide 1 PUFF/17 MCG INHALER 2 PUFF INHALE ×4 (08:08→19:57)
[2024-12-12] MEDS: Milk of Magnesia 30 ML ORAL.SUSP PO (11:28)
--- NOTE | 2024-12-12 11:50 | PM.PNCARD ---
Subjective Subjective Date of Service: 12/12/24 Interval history: Seen examined at bedside. She had hematuria after bladder catheterization. She is saying that she was short of breath last night and had orthopnea. Physical Exam Vital Signs: Last Vital Signs Temp 98.2 F 12/12/24 11:37 Pulse 70 12/12/24 11:46 Resp 18 12/12/24 11:46 BP 99/58 L 12/12/24 11:37 Pulse Ox 95 12/12/24 11:37 O2 Del Method Room Air 12/12/24 11:37 O2 Flow Rate 2 12/12/24 07:15 BMI result Body Mass Index 27.9 GENERAL APPEARANCE: in no acute distress, pleasant. NECK: no carotid bruit, positive jugular venous distention with prominent V wave. SKIN: no suspicious lesions, warm and dry. HEART: Holosystolic murmur, regular rate and rhythm. LUNGS: Few crackles to bases. ABDOMEN: soft, nontender. EXTREMITIES: No significant edema. PERIPHERAL PULSES: equal. NEUROLOGIC: No gross deficits, AAO X 3 Objective Labs and Meds 12/08/24 06:27 12/11/24 06:52 Lab results: Laboratory Results - last 24 hr 12/12/24 06:04 PT 46.1 H D INR 4.0 H Progress Note: A&P Assessment and plan (1) Acute on chronic systolic heart failure: Status: Acute (2) HFrEF (heart failure with reduced ejection fraction): Status: Acute Plan [age] year female who is presenting for acute on chronic congestive heart failure. She has severe biventricular dysfunction by echocardiography. She recently had HOSPICE VOLUNTEER COORDINATOR done. She is complaining of shortness of breath overnight which appears to be orthopnea. She has tricuspid regurgitation and V-wave on examination which makes physical examination difficult. I think we continue IV diuretics and I am starting her back on 40 mg IV b.i.d. Lasix. Continue rest of the medications as before. She had some hematuria from bladder catheterization. This has been improving. She will follow-up with Dr. Franklin Jain after discharge. We will follow along with you. Thank you for allowing me to participate in the care of your patient. Please feel free to contact me if you have any questions. Time Spent With Patient Time: Total time managing care of this patient today ____ minutes. Progress Note: Quality Stroke Does the patient have a stroke diagnosis?: No Procedures Date of Service Date of Service: 12/12/24
--- NOTE | 2024-12-12 16:26 | P.PNIM_ITS ---
Subjective Subjective Date of Service: 12/12/24 Interval History: hematuria supratherapeutic inr Review of Systems sob seems improved significantly Hematuria also improving Review of Systems: Yes all other systems are reviewed and are negative Physical Exam 2 Vital Signs: Vital Signs: Last Vital Signs Temp 98.0 F 12/12/24 15:17 Pulse 66 12/12/24 15:26 Resp 16 12/12/24 15:26 BP 94/44 L 12/12/24 15:17 Pulse Ox 97 12/12/24 15:17 O2 Del Method Room Air 12/12/24 15:17 O2 Flow Rate 2 12/12/24 07:15 BMI result Body Mass Index 27.9 Appearance: Alert.? Oriented X3.? cvs: rrr, [id number] . res: clear to auscultation ,no rhonchii or wheezing abd: no rebound or guarding ,nt, bs present. ext pulses present , no cyanosis . neuro: axo3 , nonfocal. : Has Holt/hematuria Objective Data Active Medications Albuterol Sulfate (Albuterol Sulfate 90 Mcg 8 Gm Inhaler) 2 puff INHALE Q4H PRN PRN Reason: shortness of breath or wheezing Amiodarone HCl (Amiodarone Hcl 200 Mg Tablet) 200 mg PO DAILY [facility] Last Admin: 12/12/24 10:29 Dose: 200 mg Documented By: MONTY Ascorbic Acid (Ascorbic Acid 500 Mg Tablet) 500 mg PO DAILY [facility] Last Admin: 12/12/24 10:29 Dose: 500 mg Documented By: MONTY Aspirin (Aspirin Enteric Coated 81 Mg Tablet.) 81 mg PO DAILY [facility] On Hold: 12/12/24 10:46 Last Admin: 12/12/24 10:48 Dose: Not Given Documented By: MONTY Non-Admin Reason: See Note Comments: Aspirin was held due to hematuria, per doctor's order Atorvastatin Calcium (Atorvastatin Calcium 80 Mg Tablet) 80 mg PO DAILY [facility] Last Admin: 12/12/24 10:28 Dose: 80 mg Documented By: MONTY Benzonatate (Benzonatate 100 Mg Capsule) 100 mg PO TID PRN PRN Reason: Cough Carvedilol (Carvedilol 6.25 Mg Tablet) 6.25 mg PO BID [facility]; Protocol Last Admin: 12/12/24 10:28 Dose: 6.25 mg Documented By: MONTY Furosemide (Furosemide 40 Mg/4 Ml Vial) 40 mg IVPUSH BID@0900,1800 [facility]; Protocol Ipratropium [place] (Ipratropium [place] 1 Puff/17 Mcg Inhaler) 2 puff INHALE QID [facility] Last Admin: 12/12/24 15:25 Dose: 2 puff Documented By: JAE Lisinopril (Lisinopril 10 Mg Tablet) 10 mg PO DAILY [facility]; Protocol Last Admin: 12/12/24 10:29 Dose: 10 mg Documented By: MONTY Magnesium Hydroxide (Milk Of Magnesia 30 Ml Oral.Susp) 30 ml PO DAILY PRN PRN Reason: Constipation Last Admin: 12/12/24 11:28 Dose: 30 ml Documented By: MONTY Melatonin (Melatonin 3 Mg Tablet) 9 mg PO BEDTIME PRN PRN Reason: Insomnia Last Admin: 12/11/24 21:12 Dose: 9 mg Documented By: ROMA Multivitamins/Vitamin C (Multivitamin Tablet) 1 tab PO DAILY [facility] Last Admin: 12/12/24 10:29 Dose: 1 tab Documented By: MONTY Omeprazole (Omeprazole 20 Mg Capsule.Dr) 20 mg PO BID@0630,1630 [facility] Last Admin: 12/12/24 06:39 Dose: 20 mg Documented By: KAT Ondansetron HCl (Ondansetron Hcl 4 Mg/2 Ml Vial) 4 mg IVPUSH Q8H PRN PRN Reason: Nausea and Vomiting Spironolactone (Spironolactone 25 Mg Tablet) 12.5 mg PO DAILY [facility]; Protocol Last Admin: 12/12/24 10:29 Dose: 12.5 mg Documented By: MONTY Warfarin Sodium (Warfarin Sodium 1.25 Mg Halftab) 1.25 mg PO MOWEFRSA@1800 [facility] On Hold: 12/09/24 08:41 Last Admin: 12/07/24 18:03 Dose: 1.25 mg Documented By: BEAR Warfarin Sodium (Warfarin Sodium 2.5 Mg Tablet) 2.5 mg PO SUTUTH@1800 [facility] On Hold: 12/09/24 07:38 Last Admin: 12/08/24 17:52 Dose: 2.5 mg Documented By: MARIA A Labs 12/08/24 06:27 12/11/24 06:52 Labs: Laboratory Results - last 24 hr 12/12/24 06:04 PT 46.1 H D INR 4.0 H Assessment and Plan (1) Acute on chronic systolic heart failure: Status: Acute (2) HFrEF (heart failure with reduced ejection fraction): Status: Acute Assessment and Plan: 84 years old lady with PMH of systolic CHF s\p PPM placement ,CKD3, HLD, HTN, Afib , GORDON, COPD among others who is presenting with worsening SOB and edema for the last week. Acute dCHF exacerbation Elevated BNP CXR showing bilateral pulm edema recent Echo last week at [facility] , asked ER to get a copy Cardiology consult for PPM interrogation and advice (recently changed the PPM) echo:Mildly increased left ventricular cavity size. There is normal.left ventricular wall thickness. The left ventricular systolic function is severely decreased. The visually estimated ejection fraction is between 10-15%. Moderately increased right ventricular cavity size. There is moderately decreased right ventricular systolic function. There is a pacemaker wire seen in the right ventricle.The left atrium is severely dilated. plan: switch to po Lasix ,captopril , coreg. follow BNP monitor response Hematuria:? Likely related to supratherapeutic INR/Holt insertion No clots, hematuria somewhat improving to more pinkish Continue to monitor Chronic bilateral wounds followed at wound clinic wound care nurse rodney Paroxysmal AFib INR supratherapeutic Monitor INR hold warfarin continue carvedilol, amiodarone Hyperlipidemia Statin COPD Inhalers GERD PPI GORDON CPAP wound care: Turn and Reposition every 2 hours and as needed for patient comfort.? Use pillows or wedges to support off loading positions. Off Load all bony prominences with use of pillows and heel boots if needed.? Apply Preventative foams where needed. ? Monitor for incontinence and moisture control, use barrier creams when needed for prevention and treatment. Provide adequate and supplemental nutrition.? When applicable maintain blood glucose levels per Providers order. BLE - Cleanse with NS, pat dry. Apply skin prep to periwound. Cover wound bed with Durafiber AG, followed by dry gauze, wrap. Change every other day. Continue follow up outpt wound clinic as scheduled. Full code reason for inpateint hospitalization: IV diuresis, moniter another day plan to switch po ernique Quality Stroke Does the patient have a stroke diagnosis?: No VTE Prior VTE?: No VTE Risk Level:: Medical - moderate - high VTE Device Contraindication: Treatment Not Indicated VTE Drug Contraindication: N/A - Med Ordered
[2024-12-12] MEDS: Furosemide 40 MG/4 ML VIAL IVPUSH (17:25)
[2024-12-13] VITALS (11 sets, daily range): BP systolic 100–107; BP diastolic 51–65; PULSE 53–80; RESP 16–22; TEMP 36.1–36.8; O2SAT 93–100
[2024-12-13] MEDS: Ipratropium Bromide 1 PUFF/17 MCG INHALER 2 PUFF INHALE ×4 (07:38→20:24)
[2024-12-13] MEDS: Furosemide 40 MG/4 ML VIAL IVPUSH ×2 (07:54→17:49)
[2024-12-13 08:32] LABS: Hematocrit 33.8 % (37.0-47.0); Hemoglobin 10.9 g/dl (12.0-16.0)
[2024-12-13 08:44] LABS: INTERNATIONAL NORM RATIO 3.9 (0.9-1.1); Prothrombin Time 44.9 SEC (10.9-12.4)
[2024-12-13 08:51] LABS: Anion Gap 12 (12-20); Blood Urea Nitrogen 28 mg/dL (9-16); Calcium 8.6 mg/dL (8.4-10.2); Carbon Dioxide 33 mmol/L (22-29); Chloride 104 mmol/L (96-108); Creatinine Clr Calc Pharmacy 42.3; Estimated Glomerular Filt Rate 55; Potassium 4.1 mmol/L (3.3-5.1); Sodium 145 mmol/L (135-145)
--- NOTE | 2024-12-13 15:03 | HO.PM.IMPN ---
Subjective Subjective Date of Service: 12/13/24 Interval History: chf, hematuria Review of Systems Shortness of breaths seems to be improved significantly Review of Systems: Yes all other systems are reviewed and are negative Physical Exam Vital Signs: Vital Signs: Last Vital Signs Temp 97.7 F 12/13/24 11:08 Pulse 68 12/13/24 11:21 Resp 18 12/13/24 11:21 BP 100/59 L 12/13/24 11:08 Pulse Ox 94 12/13/24 11:08 O2 Del Method Room Air 12/13/24 11:08 O2 Flow Rate 2 12/13/24 07:24 BMI result Body Mass Index 27.9 Appearance: Alert.? Oriented X3.? cvs: rrr, [id number] . res: clear to auscultation ,no rhonchii or wheezing abd: no rebound or guarding ,nt, bs present. ext pulses present , no cyanosis . neuro: axo3 , nonfocal. : Has Holt/hematuria-improved. Objective Data Active Medications Albuterol Sulfate (Albuterol Sulfate 90 Mcg 8 Gm Inhaler) 2 puff INHALE Q4H PRN PRN Reason: shortness of breath or wheezing Amiodarone HCl (Amiodarone Hcl 200 Mg Tablet) 200 mg PO DAILY [facility] Last Admin: 12/13/24 07:55 Dose: 200 mg Documented By: MONTY Ascorbic Acid (Ascorbic Acid 500 Mg Tablet) 500 mg PO DAILY [facility] Last Admin: 12/13/24 07:55 Dose: 500 mg Documented By: MONTY Aspirin (Aspirin Enteric Coated 81 Mg Tablet.) 81 mg PO DAILY [facility] On Hold: 12/12/24 10:46 Last Admin: 12/12/24 10:48 Dose: Not Given Documented By: MONTY Non-Admin Reason: See Note Comments: Aspirin was held due to hematuria, per doctor's order Atorvastatin Calcium (Atorvastatin Calcium 80 Mg Tablet) 80 mg PO DAILY [facility] Last Admin: 12/13/24 07:55 Dose: 80 mg Documented By: MONTY Benzonatate (Benzonatate 100 Mg Capsule) 100 mg PO TID PRN PRN Reason: Cough Carvedilol (Carvedilol 6.25 Mg Tablet) 6.25 mg PO BID [facility]; Protocol Last Admin: 12/13/24 07:54 Dose: 6.25 mg Documented By: MONTY Furosemide (Furosemide 40 Mg/4 Ml Vial) 40 mg IVPUSH BID@0900,1800 [facility]; Protocol Last Admin: 12/13/24 07:54 Dose: 40 mg Documented By: MONTY Ipratropium [place] (Ipratropium [place] 1 Puff/17 Mcg Inhaler) 2 puff INHALE QID [facility] Last Admin: 12/13/24 11:12 Dose: 2 puff Documented By: JAE Lisinopril (Lisinopril 10 Mg Tablet) 10 mg PO DAILY [facility]; Protocol Last Admin: 12/13/24 11:10 Dose: Not Given Documented By: MONTY Non-Admin Reason: Decreased Blood Pressure Magnesium Hydroxide (Milk Of Magnesia 30 Ml Oral.Susp) 30 ml PO DAILY PRN PRN Reason: Constipation Last Admin: 12/12/24 11:28 Dose: 30 ml Documented By: MONTY Melatonin (Melatonin 3 Mg Tablet) 9 mg PO BEDTIME PRN PRN Reason: Insomnia Last Admin: 12/11/24 21:12 Dose: 9 mg Documented By: ROMA Multivitamins/Vitamin C (Multivitamin Tablet) 1 tab PO DAILY [facility] Last Admin: 12/13/24 07:55 Dose: 1 tab Documented By: MONTY Omeprazole (Omeprazole 20 Mg Capsule.Dr) 20 mg PO BID@0630,1630 [facility] Last Admin: 12/13/24 07:54 Dose: 20 mg Documented By: MONTY Ondansetron HCl (Ondansetron Hcl 4 Mg/2 Ml Vial) 4 mg IVPUSH Q8H PRN PRN Reason: Nausea and Vomiting Spironolactone (Spironolactone 25 Mg Tablet) 12.5 mg PO DAILY [facility]; Protocol Last Admin: 12/13/24 07:55 Dose: 12.5 mg Documented By: MONTY Warfarin Sodium (Warfarin Sodium 1.25 Mg Halftab) 1.25 mg PO MOWEFRSA@1800 [facility] On Hold: 12/09/24 08:41 Last Admin: 12/07/24 18:03 Dose: 1.25 mg Documented By: BEAR Warfarin Sodium (Warfarin Sodium 2.5 Mg Tablet) 2.5 mg PO SUTUTH@1800 [facility] On Hold: 12/09/24 07:38 Last Admin: 12/08/24 17:52 Dose: 2.5 mg Documented By: MARIA A Labs 12/13/24 08:15 12/13/24 08:15 Labs: Laboratory Results - last 24 hr 12/13/24 08:15 PT 44.9 H INR 3.9 H Anion Gap 12 Estim Creat Clear Calc 42.3 Estimated GFR 55 Random Glucose 110 Calcium 8.6 Assessment and Plan (1) Acute on chronic systolic heart failure: Status: Acute (2) HFrEF (heart failure with reduced ejection fraction): Status: Acute Assessment and Plan: 84 years old lady with PMH of systolic CHF s\p PPM placement ,CKD3, HLD, HTN, Afib , GORDON, COPD among others who is presenting with worsening SOB and edema for the last week. Acute dCHF exacerbation Elevated BNP CXR showing bilateral pulm edema recent Echo last week at [facility] , asked ER to get a copy Cardiology consult for PPM interrogation and advice (recently changed the PPM) echo:Mildly increased left ventricular cavity size. There is normal.left ventricular wall thickness. The left ventricular systolic function is severely decreased. The visually estimated ejection fraction is between 10-15%. Moderately increased right ventricular cavity size. There is moderately decreased right ventricular systolic function. There is a pacemaker wire seen in the right ventricle.The left atrium is severely dilated. plan: switch to po Lasix ,captopril , coreg. follow BNP monitor response Hematuria:? Likely related to supratherapeutic INR/Holt insertion No clots, hematuria improved. Continue to monitor Chronic bilateral wounds followed at wound clinic wound care nurse rodney Paroxysmal AFib INR supratherapeutic Monitor INR hold warfarin continue carvedilol, amiodarone Hyperlipidemia Statin COPD Inhalers GERD PPI GORDON CPAP wound care: Turn and Reposition every 2 hours and as needed for patient comfort.? Use pillows or wedges to support off loading positions. Off Load all bony prominences with use of pillows and heel boots if needed.? Apply Preventative foams where needed. ? Monitor for incontinence and moisture control, use barrier creams when needed for prevention and treatment. Provide adequate and supplemental nutrition.? When applicable maintain blood glucose levels per Providers order. BLE - Cleanse with NS, pat dry. Apply skin prep to periwound. Cover wound bed with Durafiber AG, followed by dry gauze, wrap. Change every other day. Continue follow up outpt wound clinic as scheduled. Full code reason for inpateint hospitalization: IV diuresis, moniter another day plan to switch po enrique plan updated her hcp. Quality Stroke Does the patient have a stroke diagnosis?: No VTE Prior VTE?: No VTE Risk Level:: Medical - moderate - high VTE Device Contraindication: Treatment Not Indicated VTE Drug Contraindication: N/A - Med Ordered
[2024-12-14] VITALS (10 sets, daily range): BP systolic 95–116; BP diastolic 50–86; PULSE 58–79; RESP 16–20; TEMP 36.1–36.7; O2SAT 94–100
--- NOTE | 2024-12-14 | ECG_ITS ---
Test Reason : AFIB? Blood Pressure : */* mmHG Vent. Rate : 68 BPM Atrial Rate : 86 BPM P-R Int : * ms QRS Dur : 146 ms QT Int : 488 ms P-R-T Axes : * 70 235 degrees QTcB Int : 518 ms Ventricular-paced rhythm Abnormal ECG When compared with ECG of 07-Dec-2024 11:48, No significant changes seen Referred By: Eliana Humphrey Electronically Signed By: NATE VILLEGAS
[2024-12-14] MEDS: Ipratropium Bromide 1 PUFF/17 MCG INHALER 2 PUFF INHALE ×4 (07:38→19:24)
[2024-12-14 08:08] LABS: INTERNATIONAL NORM RATIO 2.9 (0.9-1.1); Prothrombin Time 33.4 SEC (10.9-12.4)
[2024-12-14] MEDS: Furosemide 40 MG/4 ML VIAL IVPUSH ×2 (09:27→17:36)
--- NOTE | 2024-12-14 10:36 | P.CDIM_ITS ---
PROVIDER RESPONSE TEXT: To clarify, the appropriate diagnosis supported by the clinical indicators: Yes, hematuria is related to / associated with / due to Coumadin QUERY TEXT: PHYSICIAN'S DOCUMENTATION REQUEST Date of Query: 12/14/2024 07:27 AM EDT Patient Name: Ramona Pinon Admit Date: 12/07/2024 Dear Eliana Humphrey MD, A review of the medical record indicates additional documentation may be needed. Please review below and update the documentation accordingly. Documentation includes the conditions of Hematuria and Supratherapeutic INR. Clinical Indicators: PT 44.9 INR 3.9 hematuria ? likely related to supratherapeutic INR/Holt insertion hold Coumadin Please clarify the relationship between these conditions: Yes, hematuria is related to / associated with / due to Coumadin No, hematuria is not related to / associated with / due to Coumadin Other (explain) Clinically unable to determine (explain) Thank you, Shirley Foreman RN Use of terms such as suspected, likely, concern for, or probable (associated with a specific diagnosis that is being evaluated, monitored, or treated as if it exists) are acceptable and can be coded in the inpatient setting, when documented at the time of discharge. Please use your independent medical judgment in providing your response. THIS QUERY IS PART OF THE PERMANENT MEDICAL RECORD
--- NOTE | 2024-12-14 13:09 | MHC.CLN ---
F/U PO INTAKE VARIABLE RANGING ROM 25-100% DIET=2 GRAM SODIUM SKIN WITH DTI TO BILATERAL HEELS AND UNSTAGEABLE AREA TO COCCYX RECEIVING ENSURE MAX PROTEIN BID TO PROMOTE SKIN INTEGRITY SUPPLEMENT PROVIDES 300 KCALS, 60 G PROTEIN MONITOR PO INTAKE AND ENCOURAGE SUPPLEMENTS
--- NOTE | 2024-12-14 15:26 | HO.PM.IMPN ---
Subjective Subjective Date of Service: 12/15/24 Interval History: chf Review of Systems sob seems improved hematuria improved ? smelling urine per staff Review of Systems: Yes all other systems are reviewed and are negative Physical Exam Vital Signs: Vital Signs: Last Vital Signs Temp 97.5 F 12/14/24 12:00 Pulse 64 12/14/24 15:10 Resp 18 12/14/24 15:10 BP 95/52 L 12/14/24 12:00 Pulse Ox 97 12/14/24 12:00 O2 Del Method Room Air 12/14/24 12:00 O2 Flow Rate 2 12/14/24 07:52 BMI result Body Mass Index 27.9 Appearance: Alert.? Oriented X3.? cvs: rrr, [id number] . res: clear to auscultation ,no rhonchii or wheezing abd: no rebound or guarding ,nt, bs present. ext pulses present , no cyanosis . neuro: axo3 , nonfocal. : hematuria-improved,braun removed. Objective Data Active Medications Albuterol Sulfate (Albuterol Sulfate 90 Mcg 8 Gm Inhaler) 2 puff INHALE Q4H PRN PRN Reason: shortness of breath or wheezing Amiodarone HCl (Amiodarone Hcl 200 Mg Tablet) 200 mg PO DAILY [facility] Last Admin: 12/14/24 09:28 Dose: 200 mg Documented By: MARY Ascorbic Acid (Ascorbic Acid 500 Mg Tablet) 500 mg PO DAILY [facility] Last Admin: 12/14/24 09:29 Dose: 500 mg Documented By: MARY Aspirin (Aspirin Enteric Coated 81 Mg Tablet.) 81 mg PO DAILY [facility] On Hold: 12/12/24 10:46 Last Admin: 12/12/24 10:48 Dose: Not Given Documented By: MONTY Non-Admin Reason: See Note Comments: Aspirin was held due to hematuria, per doctor's order Atorvastatin Calcium (Atorvastatin Calcium 80 Mg Tablet) 80 mg PO DAILY [facility] Last Admin: 12/14/24 09:27 Dose: 80 mg Documented By: MARY Benzonatate (Benzonatate 100 Mg Capsule) 100 mg PO TID PRN PRN Reason: Cough Carvedilol (Carvedilol 6.25 Mg Tablet) 6.25 mg PO BID [facility]; Protocol Last Admin: 12/14/24 09:28 Dose: 6.25 mg Documented By: MARY Furosemide (Furosemide 40 Mg/4 Ml Vial) 40 mg IVPUSH BID@0900,1800 [facility]; Protocol Last Admin: 12/14/24 09:27 Dose: 40 mg Documented By: MARY Ipratropium [place] (Ipratropium [place] 1 Puff/17 Mcg Inhaler) 2 puff INHALE QID [facility] Last Admin: 12/14/24 15:06 Dose: 2 puff Documented By: JOHNATHON Lisinopril (Lisinopril 10 Mg Tablet) 10 mg PO DAILY [facility]; Protocol Last Admin: 12/14/24 09:29 Dose: 10 mg Documented By: MARY Magnesium Hydroxide (Milk Of Magnesia 30 Ml Oral.Susp) 30 ml PO DAILY PRN PRN Reason: Constipation Last Admin: 12/12/24 11:28 Dose: 30 ml Documented By: MONTY Melatonin (Melatonin 3 Mg Tablet) 9 mg PO BEDTIME PRN PRN Reason: Insomnia Last Admin: 12/11/24 21:12 Dose: 9 mg Documented By: ROMA Multivitamins/Vitamin C (Multivitamin Tablet) 1 tab PO DAILY [facility] Last Admin: 12/14/24 09:29 Dose: 1 tab Documented By: MARY Omeprazole (Omeprazole 20 Mg Capsule.Dr) 20 mg PO BID@0630,1630 [facility] Last Admin: 12/14/24 06:16 Dose: 20 mg Documented By: JOSHUA Ondansetron HCl (Ondansetron Hcl 4 Mg/2 Ml Vial) 4 mg IVPUSH Q8H PRN PRN Reason: Nausea and Vomiting Sodium Chloride (0.9 % Sodium Chloride Flush 3 Ml Syringe) 3 ml IVFLUSH QSHIFT [facility] Spironolactone (Spironolactone 25 Mg Tablet) 12.5 mg PO DAILY [facility]; Protocol Last Admin: 12/14/24 09:28 Dose: 12.5 mg Documented By: MARY Comments: Warfarin Sodium (Warfarin Sodium 1 Mg Tablet) 1 mg PO DAILY@1800 [facility] Labs 12/13/24 08:15 12/13/24 08:15 Labs: Laboratory Results - last 24 hr 12/14/24 07:45 PT 33.4 H D INR 2.9 H Assessment and Plan (1) Acute on chronic systolic heart failure: Status: Acute (2) HFrEF (heart failure with reduced ejection fraction): Status: Acute Assessment and Plan: 84 years old lady with PMH of systolic CHF s\p PPM placement ,CKD3, HLD, HTN, Afib , GORDON, COPD among others who is presenting with worsening SOB and edema for the last week. Acute dCHF exacerbation Elevated BNP CXR showing bilateral pulm edema recent Echo last week at [facility] , asked ER to get a copy Cardiology consult for PPM interrogation and advice (recently changed the PPM) echo:Mildly increased left ventricular cavity size. There is normal.left ventricular wall thickness. The left ventricular systolic function is severely decreased. The visually estimated ejection fraction is between 10-15%. Moderately increased right ventricular cavity size. There is moderately decreased right ventricular systolic function. There is a pacemaker wire seen in the right ventricle.The left atrium is severely dilated. plan: switch to po Lasix ,captopril , coreg. Hematuria:? Likely related to supratherapeutic INR/Braun insertion hematuria improved, braun removed staff noticed smelly urine -added ua-patient denies any symptoms ,no fevers -UA noticed-mild pyuria/hematuria-no symptoms, repeat UA outpatient if any new symptoms . Chronic bilateral wounds followed at wound clinic wound care nurse rodney Paroxysmal AFib INR supratherapeutic Monitor INR hold warfarin continue carvedilol, amiodarone Hyperlipidemia Statin COPD Inhalers GERD PPI GORDON CPAP wound care: Turn and Reposition every 2 hours and as needed for patient comfort.? Use pillows or wedges to support off loading positions. Off Load all bony prominences with use of pillows and heel boots if needed.? Apply Preventative foams where needed. ? Monitor for incontinence and moisture control, use barrier creams when needed for prevention and treatment. Provide adequate and supplemental nutrition.? When applicable maintain blood glucose levels per Providers order. BLE - Cleanse with NS, pat dry. Apply skin prep to periwound. Cover wound bed with Durafiber AG, followed by dry gauze, wrap. Change every other day. Continue follow up outpt wound clinic as scheduled. Full code reason for inpateint hospitalization: awaiting placement. Quality Stroke Does the patient have a stroke diagnosis?: No VTE Prior VTE?: No VTE Risk Level:: Medical - moderate - high VTE Device Contraindication: Treatment Not Indicated VTE Drug Contraindication: N/A - Med Ordered
--- NOTE | 2024-12-14 15:38 | MHC.CM.PN ---
[facility] IS [facility] PREFERRED FACILITY, UPDATES SENT, NO RESPONSE AT THIS TIME [facility] IS ALSO FOLLOWING AND WAS UPDATED
[2024-12-14] MEDS: 0.9 % Sodium Chloride Flush 3 ML SYRINGE IVFLUSH ×2 (17:36→21:35)
[2024-12-15] VITALS: BP 120/59; PULSE 56; RESP 16; TEMP 36.7; O2SAT 92
[2024-12-15 00:46] LABS: Appearance Urine Turbid; Glucose Urine UA Negative (Negative); PH 5.5 (5.0-9.0); Specific Gravity - Urine 1.010 (1.005-1.025); UMIC TRIGGER UA YES
[2024-12-15 03:32] VITALS: BP 104/54; PULSE 68; RESP 16; TEMP 36.6; O2SAT 99
[2024-12-15 07:11] VITALS: BP 105/61; PULSE 72; RESP 18; TEMP 36.4; O2SAT 99
[2024-12-15 07:35] LABS: INTERNATIONAL NORM RATIO 2.3 (0.9-1.1); Prothrombin Time 26.5 SEC (10.9-12.4)
[2024-12-15 07:38] VITALS: PULSE 70; RESP 18; O2SAT 94
[2024-12-15] MEDS: Ipratropium Bromide 1 PUFF/17 MCG INHALER 2 PUFF INHALE ×2 (07:38→11:37)
[2024-12-15] MEDS: Furosemide 40 MG/4 ML VIAL IVPUSH (08:50)
[2024-12-15] MEDS: 0.9 % Sodium Chloride Flush 3 ML SYRINGE IVFLUSH (08:51)
[2024-12-15 11:08] VITALS: BP 110/59; PULSE 70; RESP 19; TEMP 36.4; O2SAT 92
[2024-12-15 11:38] VITALS: PULSE 67; RESP 16; O2SAT 92
--- NOTE | 2024-12-15 13:16 | MHC.CM.PN ---
Per MD, Patient has been medically cleared for dc to [facility] today. Patient will dc to her first choice facility/[facility] today at 3:30 PM, via [facility]. Patient and her Grandson/Jermaine @ [phone] are aware of a and very please with the dc plan. IMM was addressed at bedside with Patient.
--- NOTE | 2024-12-15 13:53 | PM.DS ---
DS: Providers Provider Date of Service: 12/15/24 Date of admission: 12/07/24 13:52 Date of discharge: 12/15/24 Primary care physician: Kiesha Macedo MD Consults: 12/07/24 14:47 Consult to Cardiology Routine Consulting Provider: [facility] Reason for consultation: CHF, new PPM Consult to Wound Care Routine Reason for consultation: bilateral lower extremities wounds 12/10/24 09:21 Consult to Urology Routine Consulting Provider: [facility] Reason for consultation: Urinary retention/ hematuria Attending physician on discharge: Eliana Humphrey Discharging clinician: Eliana Humphrey DS: Diagnosis Discharge Diagnosis (1) Acute on chronic systolic heart failure: Status: Acute (2) HFrEF (heart failure with reduced ejection fraction): Status: Acute DS: Summary Hospital Course Hospital Course: HPI:84 years old lady with PMH of systolic CHF s\p PPM placement ,CKD3, HLD, HTN, Afib , GORDON, COPD among others who is presenting with worsening SOB and edema for the last week. The patient was recently evaluated for worsneing SOB, orthopnea and PND by her per diem physical therapist assistant and her Lasix were increased from 20 mg to 80 mg daily but no improvement as she continued to gain weight up to 15Lb over the last 2 weeks with associated SOB, dysobea on exertion and PND. No chest pain, palpitations, nausea, vomiting, diarrhea or urinary symptoms. She had new PPM placed few weeks ago as the previous PPM had some issues (she said it was taking over and not allowing her heart to beat by itself). CXR in ED showing mild congestion and pulmonary edema. BNP elevated >3000 Admitted for IV lasix and close monitoring. Hospital course: 84 years old lady with PMH of systolic CHF s\p PPM placement ,CKD3, HLD, HTN, Afib , GORDON, COPD among others who is presenting with worsening SOB and edema for the last week. Acute dCHF exacerbation Elevated BNP ,CXR showing bilateral pulm edema echo : severe biventricular dysfunction by echocardiography echo:Mildly increased left ventricular cavity size. There is normal.left ventricular wall thickness. The left ventricular systolic function is severely decreased. The visually estimated ejection fraction is between 10-15%. Moderately increased right ventricular cavity size. There is moderately decreased right ventricular systolic function. There is a pacemaker wire seen in the right ventricle.The left atrium is severely dilated. plan: Patient was given IV diuretics, monitor I&O, seen by cardiology: In addition to Lasix started on lisinopril and spironolactone, With the above management patient seems to be improved-will be going home rehab with Lasix/spironolactone/lisinopril/bb. Hematuria:? Likely related to supratherapeutic INR/Braun insertion hematuria improved, braun removed ua (not seems clean cathch perstaff)-patient denies any symptoms ,no fevers -UA noticed-mild pyuria/hematuria-no symptoms, repeat UA outpatient if any new symptoms . Possible smelling due to Braun which is resolved. Paroxysmal AFib INR supratherapeutic Monitor INR hold warfarin due to supratherapeutic INR, monitor outpatient continue carvedilol, amiodarone wound care: Turn and Reposition every 2 hours and as needed for patient comfort.? Use pillows or wedges to support off loading positions. Off Load all bony prominences with use of pillows and heel boots if needed.? Apply Preventative foams where needed. ? Monitor for incontinence and moisture control, use barrier creams when needed for prevention and treatment. Provide adequate and supplemental nutrition.? When applicable maintain blood glucose levels per Providers order. BLE - Cleanse with NS, pat dry. Apply skin prep to periwound. Cover wound bed with Durafiber AG, followed by dry gauze, wrap. Change every other day. Continue follow up outpt wound clinic as scheduled. Plan: Continue Lasix, spironolactone, lisinopril, beta blockers-monitor BMP/electrolytes/BNP outpatient, consider outpatient cardiology evaluation(She will follow-up with Dr. Franklin Jain after discharge.) Monitor INR closely, hold warfarin and adjusted as per INR. If new urinary symptoms-check UA in the rehab. Wound care instructions as above. Above management discussed with the patient and her daughter as well as grandchild Mr. Dean-in detail length they all understand and in agreement with the above plan, time spent 40 minute, all question answered. Certified Pharmacy Technician staff was present during conversation Time Attestation Total time managing care of this patient today: 40 mintues. Discharge Coordination Time (in mins): 40 min Quality: Safe Use of Opioids Does Pt have an Active Cancer Diagnosis on the Problem List?: No Quality: Stroke Does the patient have a stroke diagnosis?: No Physical Exam Vital Signs: Vital Signs: Last Vital Signs Temp 97.5 F 12/15/24 11:08 Pulse 67 12/15/24 11:38 Resp 16 12/15/24 11:38 BP 110/59 L 12/15/24 11:08 Pulse Ox 92 12/15/24 11:08 O2 Del Method Room Air 12/15/24 11:08 O2 Flow Rate 3 12/15/24 07:11 BMI result Body Mass Index 27.9 Appearance: Alert.? Oriented X3.? cvs: rrr, [id number] . res: clear to auscultation ,no rhonchii or wheezing abd: no rebound or guarding ,nt, bs present. ext pulses present , no cyanosis . neuro: axo3 , nonfocal. : hematuria resolved. DS: Data Data Completed and Pending Completed studies during hospitalization [Text1]: Procedures Assistance with Respiratory Ventilation, Less than 24 Consecutive Hours, Continuous Positive Airway Pressure (10/07/22) Dilation of Right Ureter with Intraluminal Device, Via Natural or Artificial Opening Endoscopic (11/26/23) Fluoroscopy of Right Kidney, Ureter and Bladder (11/26/23) Labs on day of discharge: Laboratory Results - last 24 hr 12/14/24 12/15/24 23:54 06:44 Hold Purple Top SEE NOTE PT 26.5 H D INR 2.3 H Urine Color Yellow Urine Appearance Turbid Urine pH 5.5 Ur Specific [place] 1.010 Urine Protein 100 (2+) H Urine Glucose (UA) Negative Urine Ketones Negative Urine Blood Large (3+) H Urine Nitrite Negative Ur Leukocyte Esterase Large (3+) H Urine RBC >20 H Urine WBC >50 H Ur Squamous Epith Cells 0-2 Urine Bacteria 4+ Hyaline Casts 3-5 Imaging Chest x-ray: Radiologist's impression: ITS Impressions Chest X-Ray 12/07/24 12:29 IMPRESSION: No significant interval change from the prior day. Cardiomegaly, pulmonary vascular congestion, interstitial pulmonary edema, and small bilateral pleural effusions. Electronically signed by: He Hernandez MD 12/07/2024 01:39 PM EDT Discharge Plan Discharge Anticipated Discharge Date/Time: 12/15/24 13:47 Patient Disposition: Xfer Inpatient Rehab Fac Discharge Diagnosis: chf ,hematuria,eleavted inr Referrals: [facility] [Outside] - 1 Week Kiesha Macedo MD [Primary Care Provider, Internal Medicine] - 1 Week Discharge Medications: New spironolactone 25 mg Tablet 12.5 mg PO DAILY Qty: 1 0RF Protocol: Hold for SBP< HOLD for SBP < : 90 lisinopril 10 mg Tablet 10 mg PO DAILY Qty: 1 0RF Protocol: Hold for SBP< HOLD for SBP < : 90 Continued atorvastatin 80 mg tablet 80 mg PO DAILY Qty: 90 3RF potassium chloride 20 mEq tablet,ER particles/crystals 30 meq PO DAILY Qty: 135 1RF albuterol sulfate 90 mcg/actuation HFA aerosol inhaler 2 puff inhalation Q4-6H PRN (Reason: shortness of breath or wheezing) Qty: 8.5 3RF furosemide [Lasix] 40 mg tablet 80 mg PO DAILY omeprazole 20 mg capsule,delayed release(DR/EC) 20 mg PO BID@0630,1630 vitamin B complex Tablet 1 tab PO DAILY Atrovent HFA 17 mcg/actuation HFA aerosol inhaler 2 puff INHALATION QID ascorbate calcium (vitamin C) 500 mg tablet 500 mg PO DAILY zinc gluconate 50 mg tablet 50 mg PO DAILY [id number]-minerals Tablet 1 tab PO DAILY aspirin [Noel Low Dose Aspirin] 81 mg tablet,delayed release (DR/EC) 81 mg PO DAILY acetaminophen 325 mg capsule 650 mg PO Q8H PRN (Reason: Pain) amiodarone 200 mg tablet 200 mg PO DAILY Changed carvedilol 12.5 mg tablet 6.25 mg PO BID Qty: 180 1RF Rx Instructions: must administer with a meal/food Held warfarin 2.5 mg tablet 1.25 mg PO MOWEFRSA@1800 Hold Instructions: Resume on 12/17/24. Protocol: Dose Management Condition: Saturday (Week One) Dose/Route: 2.5 mg Instruction: 1 x 2.5 mg tablet Condition: Saturday Dose/Route: 1.25 mg Instruction: 0.5 x 2.5 mg tablets Condition: Saturday Dose/Route: 2.5 mg Instruction: 1 x 2.5 mg tablet Condition: Saturday Dose/Route: 1.25 mg Instruction: 0.5 x 2.5 mg tablets Condition: Dose/Route: 2.5 mg Instruction: 1 x 2.5 mg tablet Condition: Saturday Dose/Route: 1.25 mg Instruction: 0.5 x 2.5 mg tablets Condition: Saturday Dose/Route: 1.25 mg Instruction: 0.5 x 2.5 mg tablets Condition: Saturday (Week Two) Dose/Route: 2.5 mg Instruction: 1 x 2.5 mg tablet Condition: Saturday Dose/Route: 1.25 mg Instruction: 0.5 x 2.5 mg tablets Condition: Saturday Dose/Route: 2.5 mg Instruction: 1 x 2.5 mg tablet Condition: Saturday Dose/Route: 1.25 mg Instruction: 0.5 x 2.5 mg tablets Condition: Dose/Route: 2.5 mg Instruction: 1 x 2.5 mg tablet Condition: Saturday Dose/Route: 1.25 mg Instruction: 0.5 x 2.5 mg tablets Condition: Saturday Dose/Route: 1.25 mg Instruction: 0.5 x 2.5 mg tablets Protocol Text: Adjustment Start Date: Saturday12/02/24 INR Value: 2.9 INR Date: 12/02/24 Recheck Date: 12/09/24 warfarin 2.5 mg tablet 2.5 mg PO SUTUTH@1800 Hold Instructions: Resume on 12/17/24. Discharge Orders: Discharge Order (Routine); Ordered 12/15/24 Ordered By: Eliana Humhprey Diet: Advance to usual diet Activity on Discharge: As tolerated Stand Alone Forms: Patient Portal Discharge page Print Language: Nepali Activity Restrictions/Additional Instructions: Topical Wound Care Recommendations: Bilateral Lower Legs - Cleanse with NS, pat dry. Apply skin prep to periwound. Cover wound bed with Durafiber AG, followed by dry gauze, wrap. Change every other day. Continue follow up outpt wound clinic as scheduled. Care Plan Goals: CHF education given-if gains weight 2 lb or more in a week-will need outpatient Lasix dosing assessment with PCP. Consider Follow-up with cardiology outpatient Continue Lasix, beta-nguyen, lisinopril, spironolactone: Monitor renal function electrolyte closely outpatient. Supratherapeutic INR: Hold warfarin for now and monitor INR in next 1-2 days and adjust warfarin dose per INR. Monitor CBC, BMP, BNP, INR outpatient Follow-up with cardiology outpatient. Hematuria likely related to Braun related irritation as well as supratherapeutic INR: Hematuria Improved, Braun taken out. Patient is producing urine. Wound care instructions as above. Health Concerns: as above. Plan of Treatment: As above. Assessment: As above.
== END 2024-12-15 16:17 | DRG 291 ==
LOC: HO.ED 13:53 → HO.EDOVER 14:11 → HO.IMC 19:24
PROVIDERS: Nurse Practitioner Acute Care; Nurse Practitioner Family; Admitting Provider Student in an Organized Health Care Education/Training Program; Emergency Provider Emergency Medicine; PCP Internal Medicine; Visit Provider Internal Medicine
DX: I13.0 Hypertensive heart and chronic kidney disease with heart failure and stage 1 through stage 4 chronic kidney disease, or unspecified chronic kidney disease (principal); I50.23 Acute on chronic systolic (congestive) heart failure; D68.32 Hemorrhagic disorder due to extrinsic circulating anticoagulants; L97.828 Non-pressure chronic ulcer of other part of left lower leg with other specified severity; L97.818 Non-pressure chronic ulcer of other part of right lower leg with other specified severity; N18.30 Chronic kidney disease, stage 3 unspecified; I48.0 Paroxysmal atrial fibrillation; E78.5 Hyperlipidemia, unspecified; L89.626 Pressure-induced deep tissue damage of left heel; I87.2 Venous insufficiency (chronic) (peripheral); R31.9 Hematuria, unspecified; T45.515A Adverse effect of anticoagulants, initial encounter; L89.150 Pressure ulcer of sacral region, unstageable; L89.616 Pressure-induced deep tissue damage of right heel; J44.9 Chronic obstructive pulmonary disease, unspecified; G47.33 Obstructive sleep apnea (adult) (pediatric); Z95.2 Presence of prosthetic heart valve; Z95.0 Presence of cardiac pacemaker; Z79.01 Long term (current) use of anticoagulants; Z79.899 Other long term (current) drug therapy
CPT/HCPCS: 36415; 71046; 80048; 80053; 81001; 83880; 84484; 85014; 85018; 85025; 85610; 93005; 93306; 94640; 97162; 97530; 99285; J1938; Q9957

== ENCOUNTER → 2024-12-07 11:45 | Outpatient (BNV) | payer MEDICARE, BC, SELFPAY | PROVIDERS: Admitting Provider Student in an Organized Health Care Education/Training Program; Emergency Provider Emergency Medicine; PCP Internal Medicine; Visit Provider Internal Medicine Cardiovascular Disease | DX: R94.31 Abnormal electrocardiogram [ECG] [EKG] (principal); Z95.0 Presence of cardiac pacemaker | CPT/HCPCS: 93010 ==

== ENCOUNTER → 2024-12-07 11:46 | Outpatient (BNV) | payer MEDICARE, BC, SELFPAY | PROVIDERS: Emergency Provider Emergency Medicine; PCP Internal Medicine; Visit Provider Radiology Diagnostic Radiology | DX: J90 Pleural effusion, not elsewhere classified (principal); J81.1 Chronic pulmonary edema; I51.7 Cardiomegaly | CPT/HCPCS: 71046 ==

== ENCOUNTER 2024-12-07 13:52 | Outpatient (BNV) | payer MEDICARE, BC, SELFPAY | END 2024-12-14 08:20 | PROVIDERS: Admitting Provider Student in an Organized Health Care Education/Training Program; Emergency Provider Emergency Medicine; PCP Internal Medicine; Visit Provider Internal Medicine | DX: R94.31 Abnormal electrocardiogram [ECG] [EKG] (principal); Z95.0 Presence of cardiac pacemaker | CPT/HCPCS: 93010 ==

== ENCOUNTER 2024-12-07 13:52 | Outpatient (BNV) | payer MEDICARE, BC, SELFPAY | END 2024-12-09 07:00 | PROVIDERS: Admitting Provider Student in an Organized Health Care Education/Training Program; Emergency Provider Emergency Medicine; PCP Internal Medicine; Visit Provider Internal Medicine Cardiovascular Disease | DX: I27.20 Pulmonary hypertension, unspecified (principal); Z95.3 Presence of xenogenic heart valve; I51.7 Cardiomegaly; I36.1 Nonrheumatic tricuspid (valve) insufficiency | CPT/HCPCS: 93306 ==

== ENCOUNTER → 2024-12-07 13:52 | Outpatient (BNV) | payer MEDICARE, BC, SELFPAY | PROVIDERS: Admitting Provider Student in an Organized Health Care Education/Training Program; Emergency Provider Emergency Medicine; PCP Internal Medicine; Visit Provider Internal Medicine Cardiovascular Disease | DX: I50.23 Acute on chronic systolic (congestive) heart failure (principal); I34.0 Nonrheumatic mitral (valve) insufficiency | CPT/HCPCS: 99223; 99233 ==

== ENCOUNTER → 2024-12-07 13:52 | Outpatient (BNV) | payer MEDICARE, BC, SELFPAY | PROVIDERS: Admitting Provider Student in an Organized Health Care Education/Training Program; Emergency Provider Emergency Medicine; PCP Internal Medicine; Visit Provider Student in an Organized Health Care Education/Training Program | DX: I50.23 Acute on chronic systolic (congestive) heart failure (principal); I50.20 Unspecified systolic (congestive) heart failure | CPT/HCPCS: 99223; 99231; 99232 ==

== ENCOUNTER 2025-01-09 11:08 | Emergency (ER) | payer MEDICARE, BC, SELFPAY ==
--- NOTE | ~2025-01-09 | CT_ITS ---
CLINICAL HISTORY: Fall on coumadin CT cervical spine without contrast Comparison: None provided Findings: Bony alignment of the cervical vertebral bodies is anatomic. Bones are osteopenic. No fracture or prevertebral soft tissue swelling. Moderate multilevel degenerative disc disease and degenerative facet disease throughout the cervical spine. There is posterior bony ankylosis at C2-3 on the right. Upper airway is patent. No apical pneumothorax. IMPRESSION: No acute findings. This document has been electronically signed by: Declan Astorga MD on 01/09/2025 14:00:20
--- NOTE | ~2025-01-09 | XR_ITS ---
CLINICAL HISTORY: pain after fall Exam: AP pelvis with AP and cross-table lateral views of the right hip. Comparison: CT abdomen and pelvis March 02, 2024. Findings: Antegrade intramedullary rubi with 2 spanning surgical screws are seen within the right proximal femur as before. Visual retraction of the screw heads off the lateral cortex of the subtrochanteric femur as seen previously. Heterotopic ossification along the greater trochanter is unchanged. No acute fracture about the right hip is identified. Pubic rami are intact. Retrograde intramedullary rubi is seen within the left femur as before. No acute fracture about the left hemipelvis. Moderate to severe degenerative change of the right hip joint with moderate degenerative change of the left hip joint. Right ureteral stent is again identified. Impression: No acute fracture. This document has been electronically signed by: Declan Astorga MD on 01/09/2025 12:57:54
--- NOTE | ~2025-01-09 | CT_ITS ---
CLINICAL HISTORY: Fall on COumadin CT head without contrast Comparison: None provided Findings: There is age-appropriate atrophy. The size and shape of the ventricular system is within normal limits for this degree of atrophy. Moderate areas of low attenuation seen within the periventricular and deep white matter. No midline shift or mass effect. No intracranial hemorrhage. Hyperdense soft tissue swelling over the right posterior scalp. No underlying fracture. IMPRESSION: Right posterior scalp hematoma without fracture or intracranial hemorrhage. This document has been electronically signed by: Declan Astorga MD on 01/09/2025 13:54:17
[2025-01-09 11:20] VITALS: BP 116/70; PULSE 112; O2SAT 99
--- NOTE | 2025-01-09 11:25 | ECG_ITS ---
Test Reason : FALL Blood Pressure : */* mmHG Vent. Rate : 84 BPM Atrial Rate : 80 BPM P-R Int : * ms QRS Dur : 112 ms QT Int : 408 ms P-R-T Axes : * 106 -3 degrees QTcB Int : 482 ms Ventricular-paced rhythm with premature ventricular or aberrantly conducted complexes Abnormal ECG When compared with ECG of 14-Dec-2024 08:20, Vent. rate has increased by 16 bpm Referred By: Erin Fair Electronically Signed By: NATE VILLEGAS
--- NOTE | 2025-01-09 11:33 | MHC.EDTECH ---
Attempted to do ekg at this time, but pt is leaving with director of channel marketing
[2025-01-09 11:49] VITALS: BP 105/57; PULSE 89; RESP 18; TEMP 36.4; O2SAT 98; BMI 25.7
[2025-01-09 11:58] VITALS: BP 105/57; PULSE 89; RESP 18; TEMP 36.4; O2SAT 98
--- NOTE | 2025-01-09 12:00 | PC.NURSE ---
84 F presents to ED from home after having a fall when getting dressed, hitting R side of head. Pt not sure why she fell, turned from dresser and fell, no LOC. A+OX4, calm, cooperative. RR even and unlabored, denies SOB or CP. Pt ambulates with a walker at baseline and lives with her 92 year old . Pt denies any pain.
--- NOTE | 2025-01-09 12:11 | ED.GENADULT ---
HPI - General Adult General Chief complaint: Head Injury Stated complaint: FALL, +hs, ON THINNERS Time Seen by Provider: 01/09/25 11:18 Source: patient Mode of arrival: EMS History of Present Illness ED Provider: Marv VAZQUEZ narrative: 84-year-old female who reports that she was at her dresser, turned became unsteady and fell onto her right side striking her head against the dresser, denies any loss of consciousness but is on chronic anticoagulation of Coumadin, denies any visual disturbances and also reports right hip pain but otherwise has been feeling well and was getting ready to go to a democrat. Her history is significant as well for a recent placement of pacemaker. Related Data Home Medications ?Medication ?Instructions ?Recorded ?Confirmed ascorbate calcium (vitamin C) 500 500 mg PO DAILY 01/04/23 01/08/25 mg tablet aspirin 81 mg tablet,delayed 81 mg PO DAILY 01/04/23 01/08/25 release (Noel Low Dose Aspirin) urofksdmrhnm-Dm-jjoy-minerals 1 tab PO DAILY 01/04/23 01/08/25 zinc gluconate 50 mg tablet 50 mg PO DAILY 01/04/23 01/08/25 vitamin B complex 1 tab PO DAILY 11/26/23 01/08/25 acetaminophen 325 mg capsule 650 mg PO Q8H PRN Pain 01/20/24 01/08/25 amiodarone 200 mg tablet 200 mg PO DAILY 07/27/24 01/08/25 ipratropium bromide 17 2 puff inhalation QID 11/06/24 01/08/25 mcg/actuation HFA aerosol inhaler (Atrovent HFA) furosemide 40 mg tablet (Lasix) 80 mg PO DAILY 12/07/24 01/08/25 omeprazole 20 mg capsule,delayed 20 mg PO BID@0630,1630 12/07/24 01/08/25 release warfarin 2.5 mg tablet 1.25 mg PO MOWEFRSA@1800 12/07/24 01/08/25 Held on 12/15/24. Instructions: Resume on 12/17/24. warfarin 2.5 mg tablet 2.5 mg PO SUTUTH@1800 12/07/24 01/08/25 Held on 12/15/24. Instructions: Resume on 12/17/24. lisinopril 5 mg tablet 5 mg PO BID 01/05/25 01/08/25 metoprolol succinate 50 mg 50 mg PO DAILY 01/05/25 01/08/25 tablet,extended release 24 hr Previous Rx's ?Medication ?Instructions ?Recorded atorvastatin 80 mg tablet 80 mg PO DAILY #90 tabs 04/01/24 albuterol sulfate 90 mcg/actuation 2 puff inhalation Q4-6H PRN 06/30/24 aerosol inhaler shortness of breath or wheezing #8.5 grams potassium chloride 20 mEq 30 meq (1.5 x 20 mEq) PO DAILY 06/30/24 tablet,extended release(part/cryst) #135 tabs spironolactone 25 mg tablet 12.5 mg PO DAILY #1 tab 12/15/24 Allergies Allergy/AdvReac Type Severity Reaction Status Date / Time acetaminophen (From Vicodin) Allergy Intermediate per patient Verified 01/09/25 11:56 hydrocodone (From Vicodin) Allergy Mild CHEST PAIN Verified 01/09/25 11:56 Review of Systems Review of Systems: Pertinent positives and negatives as stated in [facility] Past Medical History Attestation statement: The following information was validated with the patient. Source: nursing notes reviewed Medical History (Updated 01/09/25 @ 14:10 by Erin Fair MD) HFrEF (heart failure with reduced ejection fraction) Chronic atrial fibrillation Chronic anticoagulation Obesity CKD (chronic kidney disease) stage 3, GFR 30-59 ml/min Nephrolithiasis, uric acid Hyperlipidemia HTN (hypertension) A-fib GORDON (obstructive sleep apnea) COPD (chronic obstructive pulmonary disease) Pulmonary HTN Severe mitral regurgitation Thiamine deficiency Osteoporosis Surgical History Hx of hernia repair History of open reduction and internal fixation (ORIF) procedure Family History Family History Father No problems noted. Mother No problems noted. Maternal Aunt Breast cancer Social History Social History Household Members: Spouse Housing: House Do you presently have visiting nurse or other home services: Yes (poor historian unable to answer.) Alcohol intake: never Patient Tobacco Use Status: Former Tobacco user Tobacco use type: Cigarette Smoked in Last 30 Days: No e-Cigarette/Vaping Use: Never Used Second Hand Smoke Exposure: No Use of substances other than those prescribed or required for medical reasons: No Advance Directives: Yes Advance Directives on File: Yes Advance Directives Date on File: 11/28/23 Do you have a plan to hurt others: No Plan service: No Current occupational status: retired Cognitive needs: No Hearing needs: No Vision needs: No Physical Exam ED Exam Exam: VITAL SIGNS: Reviewed. GENERAL: Well developed, well nourished, in no acute distress. HEAD: Normocephalic/contusion to right parietal EYES: PERRLA, EOMI EARS: Ext canals without abnormality NOSE: Nares patent bilateral OROPHARYNX: no oral lesions noted, posterior pharynx clear NECK: Supple, no adenopathy LUNGS: Normal breath sounds. No adventitious sounds or accessory muscle use. SpO2<98> CARDIOVASCULAR: Regular rate and rhythm without noted murmurs ABDOMEN: Soft, non-tender, non-distended with bowel sounds. PELVIS: Right hip pain MUSCULOSKELETAL: No tenderness, deformities, or effusions noted on gross inspection. EXTREMITIES: No cyanosis, clubbing or edema. SKIN: Inspection of the skin reveals no rashes NEUROLOGIC: Alert and oriented x 4. Strength and sensation to light touch were grossly intact x 4. Vital Signs: Vital Signs - 24 hr 01/09/25 11:49 01/09/25 11:58 Temperature 97.5 F 97.5 F Pulse Rate 89 89 Respiratory Rate 18 18 Blood Pressure 105/57 L 105/57 L Pulse Oximetry 98 98 Oxygen Delivery Method Room Air Room Air BMI result Body Mass Index 25.7 Medical Decision Making Medical Decision Making [facility] Narrative: 1115: 84-year-old female with history and clinical presentation, DD DX: Fall on chronic anticoagulation, no neurologic deficits at this time however will proceed with CT scan of the head/cervical spine as well as obtain imaging studies of the right hip and pelvis, otherwise clinical exam is benign in nature. My interpretation of the EKG: Ventricular paced rhythm, no acute changes when compared to prior, HR-84, no STEMI 1154: My interpretation is ventricular paced rhythm, unchanged from prior EKG on 12/14 of this year, no STEMI 1405: I reviewed and interpreted all investigations and there is no leukocytosis, there is a chronically stable anemia and no thrombocytopenia. INR is therapeutic for chronic anticoagulation with INR-2.2. There is no evidence of ARIADNA/electrolyte derangements, patient's bilirubin is chronically elevated and otherwise no transaminase Hayley derangement. I interpreted the CT of the head/cervical spine and I do not identify any intracranial hemorrhage/mass effect, there is obvious scalp swelling at the location of the contusion, there is no cervical spine fracture/subluxation, on review of final and official radiologic impression they corroborate my above interpretation. I interpreted the right hip and pelvic imaging which does not demonstrate any evidence of acute fracture/dislocation/periprosthetic fracture, radiologic impression corroborates this finding. Patient does not meet inpatient level of care, will ambulate with baseline medical devices and assess as to patient's appropriateness for discharge to home with hukg-ufr-ckcjvko analgesics. Differential Diagnosis Differential Diagnoses: The differential diagnosis associated with the presentation includes See above Admission/Observation Consideration of admission/observation: Escalation of care including admission/observation considered See above Lab Data MDM Lab Attestation statement: I reviewed the patient's lab results. See above 01/09/25 12:09 01/09/25 12:09 Labs: Lab Results 01/09/25 Range/Units 12:09 WBC 6.5 (4.8-10.8) X10*3/uL RBC 3.67 L (4.20-5.50) X10*6/uL Hgb 10.6 L (12.0-16.0) g/dl Hct 32.2 L (37.0-47.0) % MCV 87.7 (80.0-98.0) fL MCH 28.9 (27.0-33.0) pg MCHC 32.9 (31.0-35.0) g/dl RDW 18.2 H (11.0-16.0) % Plt Count 188 D (160-400) X10*3/uL MPV 9.8 (9.4-12.3) fL Immature Gran % (Auto) 0.5 H (0.0-0.4) % Neut % (Auto) 79.7 H (45-73) % Lymph % (Auto) 10.3 L (20-40) % Knox % (Auto) 7.7 (2-11) % Eos % (Auto) 1.5 (0-4) % Baso % (Auto) 0.3 (0-2) % Lymph # (Auto) 0.7 L (1.2-4.9) X10*3/uL Knox # (Auto) 0.5 (0.1-1.2) X10*3/uL Eos # (Auto) 0.1 (0.0-0.4) X10*3/uL Baso # (Auto) 0.0 (0.0-0.2) X10*3/uL Abs Immat Gran (auto) 0.03 (0.00-0.03) X10*3/uL Absolute Neuts (auto) 5.2 (2.0-8.3) x10*3/uL Absolute Nucleated RBC 0.000 (0.0-0.012) X10*3/uL Nucleated RBC % (auto) 0.0 (0.0-0.2) /100WBC PT 24.9 H (10.9-12.4) SEC INR 2.2 H (0.9-1.1) Sodium 143 (135-145) mmol/L Potassium 4.6 (3.3-5.1) mmol/L Chloride 107 (96-108) mmol/L Carbon Dioxide 28 (22-29) mmol/L Anion Gap 13 (12-20) BUN 25 H (9-16) mg/dL Creatinine 1.07 (0.5-1.4) mg/dL Estim Creat Clear Calc 36.9 Estimated GFR 49 Random Glucose 107 (60-115) mg/dL Calcium 9.0 (8.4-10.2) mg/dL Total Bilirubin 1.4 H (0.0-1.0) mg/dL AST 37 H (5-31) U/L ALT 26 (0-31) U/L Alkaline Phosphatase 137 H (39-117) U/L Total Protein 5.8 L (6.5-8.0) g/dL Albumin 3.2 L (3.5-5.0) g/dL Independent Interpretation I performed an independent interpretation of an: EKG Interpretation: See above Radiology Impression Discussion of test interpretation with radiology: I have reviewed the radiologist's reading. Radiologist Impression: See above External Record Review External record reviewed: Outpatient record and Prior outpatient labs Chronic Conditions Patient?s care impacted by: Hypertension Discharge Plan Discharge Clinical Impression: Fall, Contusion of scalp, Hip pain, right Patient Disposition: Home, Self-Care Instructions: Fall Prevention for Older Adults (ED), Hip Pain (ED), Scalp Contusion in Adults (ED) Additional Instructions: Resume all home medications as prescribed. Recommend ohth-exz-ddklask Tylenol as needed for pain control, would also recommend wdck-iht-tzpacki lidocaine patch to right hip for additional symptom relief. Continue to stay active if possible as this will prevent further aches and pains. Please follow-up with your primary care doctor on Saturday morning by calling the office and do not hesitate to return to the emergency room for any acute worsening of your symptoms such as dizziness, headaches that will not resolve with Tylenol, any visual disturbances. Prescriptions: No Action atorvastatin 80 mg tablet 80 mg PO DAILY Qty: 90 3RF potassium chloride 20 mEq tablet,ER particles/crystals 30 meq PO DAILY Qty: 135 1RF albuterol sulfate 90 mcg/actuation HFA aerosol inhaler 2 puff inhalation Q4-6H PRN (Reason: shortness of breath or wheezing) Qty: 8.5 3RF metoprolol succinate 50 mg tablet extended release 24 hr 50 mg PO DAILY lisinopril 5 mg tablet 5 mg PO BID warfarin 2.5 mg tablet 1.25 mg PO MOWEFRSA@1800 Protocol: Dose Management Condition: Saturday (Week One) Dose/Route: 2.5 mg Instruction: 1 x 2.5 mg tablet Condition: Saturday Dose/Route: 0 mg Instruction: 0 tablets Condition: Saturday Dose/Route: 1.25 mg Instruction: 0.5 x 2.5 mg tablets Condition: Saturday Dose/Route: 1.25 mg Instruction: 0.5 x 2.5 mg tablets Condition: Dose/Route: 1.25 mg Instruction: 0.5 x 2.5 mg tablets Condition: Saturday Dose/Route: 1.25 mg Instruction: 0.5 x 2.5 mg tablets Condition: Saturday Dose/Route: 1.25 mg Instruction: 0.5 x 2.5 mg tablets Condition: Saturday (Week Two) Dose/Route: 1.25 mg Instruction: 0.5 x 2.5 mg tablets Condition: Saturday Dose/Route: 1.25 mg Instruction: 0.5 x 2.5 mg tablets Condition: Saturday Dose/Route: 2.5 mg Instruction: 1 x 2.5 mg tablet Condition: Saturday Dose/Route: 1.25 mg Instruction: 0.5 x 2.5 mg tablets Condition: Dose/Route: 2.5 mg Instruction: 1 x 2.5 mg tablet Condition: Saturday Dose/Route: 1.25 mg Instruction: 0.5 x 2.5 mg tablets Condition: Saturday Dose/Route: 1.25 mg Instruction: 0.5 x 2.5 mg tablets Protocol Text: Adjustment Start Date: Saturday01/08/25 INR Value: 2.5 INR Date: 01/08/25 Recheck Date: 01/14/25 Additional Instructions: EAT PROTEIN RICH FOODS SUCH CHICKEN AND VIT C RICH FOODS SUCH LITTLE ORANGES AND BLUEBERRIES FOR WOUND HEALING, WIGLE TOES AND KICK FEET AND DO ANKEL PUMPS FOR CIRCULATION FOR WOUND HEALING warfarin 2.5 mg tablet 2.5 mg PO SUTUTH@1800 Protocol: Dose Management Condition: Saturday (Week One) Dose/Route: 2.5 mg Instruction: 1 x 2.5 mg tablet Condition: Saturday Dose/Route: 0 mg Instruction: 0 tablets Condition: Saturday Dose/Route: 1.25 mg Instruction: 0.5 x 2.5 mg tablets Condition: Saturday Dose/Route: 1.25 mg Instruction: 0.5 x 2.5 mg tablets Condition: Dose/Route: 1.25 mg Instruction: 0.5 x 2.5 mg tablets Condition: Saturday Dose/Route: 1.25 mg Instruction: 0.5 x 2.5 mg tablets Condition: Saturday Dose/Route: 1.25 mg Instruction: 0.5 x 2.5 mg tablets Condition: Saturday (Week Two) Dose/Route: 1.25 mg Instruction: 0.5 x 2.5 mg tablets Condition: Saturday Dose/Route: 1.25 mg Instruction: 0.5 x 2.5 mg tablets Condition: Saturday Dose/Route: 2.5 mg Instruction: 1 x 2.5 mg tablet Condition: Saturday Dose/Route: 1.25 mg Instruction: 0.5 x 2.5 mg tablets Condition: Dose/Route: 2.5 mg Instruction: 1 x 2.5 mg tablet Condition: Saturday Dose/Route: 1.25 mg Instruction: 0.5 x 2.5 mg tablets Condition: Saturday Dose/Route: 1.25 mg Instruction: 0.5 x 2.5 mg tablets Protocol Text: Adjustment Start Date: Saturday01/08/25 INR Value: 2.5 INR Date: 01/08/25 Recheck Date: 01/14/25 Additional Instructions: EAT PROTEIN RICH FOODS SUCH CHICKEN AND VIT C RICH FOODS SUCH LITTLE ORANGES AND BLUEBERRIES FOR WOUND HEALING, WIGLE TOES AND KICK FEET AND DO ANKEL PUMPS FOR CIRCULATION FOR WOUND HEALING furosemide [Lasix] 40 mg tablet 80 mg PO DAILY omeprazole 20 mg capsule,delayed release(DR/EC) 20 mg PO BID@0630,1630 spironolactone 25 mg Tablet 12.5 mg PO DAILY Qty: 1 0RF Protocol: Hold for SBP< HOLD for SBP < : 90 vitamin B complex Tablet 1 tab PO DAILY Atrovent HFA 17 mcg/actuation HFA aerosol inhaler 2 puff INHALATION QID ascorbate calcium (vitamin C) 500 mg tablet 500 mg PO DAILY zinc gluconate 50 mg tablet 50 mg PO DAILY zoirnglusetu-Te-dkzn-minerals Tablet 1 tab PO DAILY aspirin [Noel Low Dose Aspirin] 81 mg tablet,delayed release (DR/EC) 81 mg PO DAILY acetaminophen 325 mg capsule 650 mg PO Q8H PRN (Reason: Pain) amiodarone 200 mg tablet 200 mg PO DAILY Referrals: Kiesha Macedo MD [Primary Care Provider, Internal Medicine] Print Language: Latvian
[2025-01-09 12:17] LABS: MANUAL DIFF FLAG NO
[2025-01-09 12:21] LABS: Hematocrit 32.2 % (37.0-47.0); Hemoglobin 10.6 g/dl (12.0-16.0); Imm Gran Abs Auto 0.03 X10*3/uL (0.00-0.03); Imm Gran Pct Auto 0.5 % (0.0-0.4); Lymphocytes Absolute Auto 0.7 X10*3/uL (1.2-4.9); Mean Corpuscular HGB Conc 32.9 g/dl (31.0-35.0); Mean Corpuscular Hemoglobin 28.9 pg (27.0-33.0); Mean Corpuscular Volume 87.7 fL (80.0-98.0); NRBC Abs Auto 0.000 X10*3/uL (0.0-0.012); NRBC Pct Auto 0.0 /100WBC (0.0-0.2); Platelet Count 188 X10*3/uL (160-400); Red Blood Count 3.67 X10*6/uL (4.20-5.50); White Blood Count 6.5 X10*3/uL (4.8-10.8)
[2025-01-09 12:25] LABS: INTERNATIONAL NORM RATIO 2.2 (0.9-1.1); Prothrombin Time 24.9 SEC (10.9-12.4)
[2025-01-09 12:36] LABS: Alanine Aminotransferase 26 U/L (0-31); Albumin Level 3.2 g/dL (3.5-5.0); Alkaline Phosphatase 137 U/L (39-117); Anion Gap 13 (12-20); Aspartate Amino Transferase 37 U/L (5-31); Blood Urea Nitrogen 25 mg/dL (9-16); Calcium 9.0 mg/dL (8.4-10.2); Carbon Dioxide 28 mmol/L (22-29); Chloride 107 mmol/L (96-108); Creatinine Clr Calc Pharmacy 36.9; Estimated Glomerular Filt Rate 49; Potassium 4.6 mmol/L (3.3-5.1); Sodium 143 mmol/L (135-145); Total Protein 5.8 g/dL (6.5-8.0)
--- OUTSIDE RECORDS SUMMARY | 2025-01-09 13:07 | XMS_ITS | Encounter Summary ---
Author Organization [facility] Address [address] [place] [address] Care Team Providers Care Steam Fitter Supervisor Maintenance Name Role Phone Sal Cardoso Primary Care Provider [phone] Encounter Details Date Type Department Care Team (Late st Contact Info) Description 12/16/2024 Lab Requisition [facility] - Main Lab [address] [facility] [place] [address] Sal Cardoso [address] [phone] Encounter for other general examination Social History Tobacco Use Types Packs/Day Years Used Date Smoking Tobacco: Never Assessed Comments Unknown Sex and Gender Information Value Date Recorded Sex Assigned at Not on file Legal Sex Female 6:06 PM EST Gender Identity Not on file Sexual Orientation Not on file documented as of this encounter Plan of Treatment Not on file documented as of this encounter Procedures Procedure Name Priority Date/Time Associated Diagnosis Comments CBC WITH AUTO DIFFERENTIAL Routine 12/16/2024 5:53 AM EDT Encounter for other general examination CBC AND DIFFERENTIAL Routine 12/16/2024 5:53 AM EDT Encounter for other general examination MAGNESIUM Routine 12/16/2024 5:53 AM EDT Encounter for other general examination COMPREHENSIVE METABOLIC PANEL Routine 12/16/2024 5:53 AM EDT Encounter for other general examination documented in this encounter Results * (ABNORMAL) CBC auto differential (12/16/2024 5:53 AM EDT) WBC 6.7 4.8 - 10.8 /[facility] LAB HEMETOLOGY METHOD 12/16/2024 11:02 AM [facility] RBC 4.00 3.80 - 4.80 M/mcL LAB HEMETOLOGY METHOD 12/16/2024 11:02 AM [facility] Hemoglobin 11.4(L) 11.5 - 16.0 g/dL LAB HEMETOLOGY METHOD 12/16/2024 11:02 AM [facility] Hematocrit 36.6 35.0 - 47.0 % LAB HEMETOLOGY METHOD 12/16/2024 11:02 AM [facility] MCV 91.5 79.0 - 98.0 FL LAB HEMETOLOGY METHOD 12/16/2024 11:02 AM [facility] MCH 28.5 27.0 - 32.0 pcg LAB HEMETOLOGY METHOD 12/16/2024 11:02 AM [facility] MCHC 31.1(L) 32.0 - 37.0 g/dL LAB HEMETOLOGY METHOD 12/16/2024 11:02 AM [facility] RDW 18.2(H) 11.0 - 15.0 % LAB HEMETOLOGY METHOD 12/16/2024 11:02 AM [facility] Platelets 151 130 - 400 K/mcL LAB HEMETOLOGY METHOD 12/16/2024 11:02 AM [facility] MPV 11.9(H) 7.0 - 11.0 FL LAB HEMETOLOGY METHOD 12/16/2024 11:02 AM [facility] NRBC 0.0 <1.0 % LAB HEMETOLOGY METHOD 12/16/2024 11:02 AM [facility] NRBC Absolute 0.00 <0.10 K/mcL LAB HEMETOLOGY METHOD 12/16/2024 11:02 AM [facility] Neutrophils Relative 79.9 % LAB HEMETOLOGY METHOD 12/16/2024 11:02 AM [facility] Lymphocytes Relative 12.3 % LAB HEMETOLOGY METHOD 12/16/2024 11:02 AM [facility] Monocytes Relative 6.0 % LAB HEMETOLOGY METHOD 12/16/2024 11:02 AM [facility] Eosinophils Relative 1.2 % LAB HEMETOLOGY METHOD 12/16/2024 11:02 AM [facility] Basophils Relative 0.3 % LAB HEMETOLOGY METHOD 12/16/2024 11:02 AM [facility] Immature Granulocytes Relative 0.3 % LAB HEMETOLOGY METHOD 12/16/2024 11:02 AM [facility] Neutrophils Absolute 5.33 1.50 - 7.00 K/mcL LAB HEMETOLOGY METHOD 12/16/2024 11:02 AM [facility] Lymphocytes Absolute 0.82(L) 1.00 - 5.00 K/mcL LAB HEMETOLOGY METHOD 12/16/2024 11:02 AM [facility] Monocytes Absolute 0.40 0.20 - 1.00 K/mcL LAB HEMETOLOGY METHOD 12/16/2024 11:02 AM [facility] Eosinophils Absolute 0.08 0.00 - 0.50 K/mcL LAB HEMETOLOGY METHOD 12/16/2024 11:02 AM [facility] Basophils Absolute 0.02 0.00 - 0.20 K/mcL LAB HEMETOLOGY METHOD 12/16/2024 11:02 AM [facility] Immature Granulocytes Absolute 0.02 0.00 - 0.03 K/mcL LAB HEMETOLOGY METHOD 12/16/2024 11:02 AM [facility] Blood Venous blood specimen / Unknown Venipuncture / Unknown 12/16/2024 5:53 AM EDT 12/16/2024 10:18 AM EDT Sal Cardoso LAB BLOOD ORDERABLES Final Resu lt [facility] [address] [place] [address], [place] [phone] * Magnesium (12/16/2024 5:53 AM EDT) [facility] Magnesium 2.1 1.9 - 2.6 mg/dL LAB CHEMISTRY METHOD 12/16/2024 11:34 AM EDT [facility] Blood Venous blood specimen / Unknown Venipuncture / Unknown 12/16/2024 5:53 AM EDT 12/16/2024 10:18 AM EDT Sal Cardoso LAB BLOOD ORDERABLES Final Resu lt Performing Organization Address [facility]/ZIP Co de Phone Number [facility] [address] [place] [address], [place] [phone] * (ABNORMAL) Comprehensive metabolic panel (12/16/2024 5:53 AM EDT) [facility] Sodium 143 133 - 145 mmol/L LAB CHEMISTRY METHOD 12/16/2024 11:51 AM EDT [facility] Potassium 4.2 3.5 - 5.5 mmol/L LAB CHEMISTRY METHOD 12/16/2024 11:51 AM EDT [facility] Chloride 103 96 - 110 mmol/L LAB CHEMISTRY METHOD 12/16/2024 11:51 AM EDT [facility] CO2 33(H) 21 - 32 mmol/L LAB CHEMISTRY METHOD 12/16/2024 11:51 AM EDT [facility] Anion Gap 7 3 - 11 LAB CHEMISTRY METHOD 12/16/2024 11:51 AM EDT [facility] Glucose 94 70 - 100 mg/dL LAB CHEMISTRY METHOD 12/16/2024 11:51 AM [facility] BUN 33(H) 5 - 25 mg/dL LAB CHEMISTRY METHOD 12/16/2024 11:51 AM [facility] Creatinine 1.02 0.50 - 1.10 mg/dL LAB CHEMISTRY METHOD 12/16/2024 11:51 AM [facility] eGFR 55(L) >=60 mL/min/1. 73m2 LAB CHEMISTRY METHOD 12/16/2024 11:51 AM [facility] Comment:Calculation based on the Chronic Kidney Disease Epidemiology Collaboration (CKD-EPI) equation refit without adjustment for race. BUN/Creatinine Ratio 32.4 LAB CHEMISTRY METHOD 12/16/2024 11:51 AM [facility] Calcium 8.5 8.5 - 10.5 mg/dL LAB CHEMISTRY METHOD 12/16/2024 11:51 AM [facility] AST (SGOT) 32 10 - 42 unit/L LAB CHEMISTRY METHOD 12/16/2024 11:51 AM [facility] ALT (SGPT) 28 10 - 60 unit/L LAB CHEMISTRY METHOD 12/16/2024 11:51 AM [facility] Alkaline Phosphatase 122(H) 42 - 121 unit/L LAB CHEMISTRY METHOD 12/16/2024 11:51 AM [facility] Total Protein 4.8(L) 6.0 - 8.0 g/dL LAB CHEMISTRY METHOD 12/16/2024 11:51 AM [facility] Albumin 2.4(L) 3.2 - 5.0 g/dL LAB CHEMISTRY METHOD 12/16/2024 11:51 AM [facility] Total Bilirubin 0.8 0.0 - 1.4 mg/dL LAB CHEMISTRY METHOD 12/16/2024 11:51 AM [facility] Blood Venous blood specimen / Unknown Venipuncture / Unknown 12/16/2024 5:53 AM EDT 12/16/2024 10:18 AM EDT Sal Cardoso LAB BLOOD ORDERABLES Final Resu lt [facility] [address] [place] [address], documented in this encounter Visit Diagnoses Diagnosis Encounter for other general examination documented in this encounter Care Teams Steam Fitter Supervisor Maintenance Relationship Specialty Start Date End Date Sal Cardoso [address] [phone] PCP - General 12/16/24 documented as of this encounter
--- OUTSIDE RECORDS SUMMARY | 2025-01-09 13:07 | XMS_ITS | Patient Health Record ---
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
--- OUTSIDE RECORDS SUMMARY | 2025-01-09 13:07 | XMS_ITS | Clinical Summary ---
Author Organization [facility] Facility Address [address] [address] Care Team Providers Care Benefit Director Name Role Phone Kiesha Macedo MD Primary [...] PCV) 03/06/2019 03/06/2018, 04/29/2017 Influenza Vaccine (#1) 2025 0, 04/22/2019, 03/06/2018, Additional history exists Hepatitis B Vaccine Aged Out No longe r eligible based on patient's age to complete this topic Insurance Medicare [facility] Medicare [facility] Care Teams Benefit Director Relationship Specialty Start Date End Date Kiesha Macedo MD [address] [place], [place] PCP - General Internal Medicine 08/29/22
--- NOTE | 2025-01-09 13:56 | PC.NURSE ---
pt ambulating at her baseline via walker
[2025-01-09 14:20] VITALS: BP 117/57; PULSE 97; RESP 20; TEMP 36.2; O2SAT 98
[2025-01-09 14:38] VITALS: BP 117/57; PULSE 97; RESP 20; TEMP 36.2; O2SAT 98
== END 2025-01-09 14:48 | disposition home or self-care (01) ==
PROVIDERS: Emergency Provider Student in an Organized Health Care Education/Training Program; PCP Internal Medicine
DX: S00.03XA Contusion of scalp, initial encounter (principal); S70.01XA Contusion of right hip, initial encounter; W01.190A Fall on same level from slipping, tripping and stumbling with subsequent striking against furniture, initial encounter; Y93.89 Activity, other specified; I48.91 Unspecified atrial fibrillation; Y92.013 Bedroom of single-family (private) house as the place of occurrence of the external cause; Y99.8 Other external cause status; Z95.0 Presence of cardiac pacemaker; Z79.01 Long term (current) use of anticoagulants; Z79.82 Long term (current) use of aspirin; Z79.899 Other long term (current) drug therapy; Z79.02 Long term (current) use of antithrombotics/antiplatelets; Z87.891 Personal history of nicotine dependence
CPT/HCPCS: 36415; 70450; 72125; 73502; 80053; 85025; 85610; 93005; 99284; 99285

== ENCOUNTER → 2025-01-09 11:25 | Outpatient (BNV) | payer MEDICARE, BC, SELFPAY | PROVIDERS: Emergency Provider Student in an Organized Health Care Education/Training Program; Visit Provider Radiology Diagnostic Radiology | DX: M47.812 Spondylosis without myelopathy or radiculopathy, cervical region (principal); S00.03XA Contusion of scalp, initial encounter; M16.11 Unilateral primary osteoarthritis, right hip | CPT/HCPCS: 70450; 72125; 73502 ==

== ENCOUNTER → 2025-01-09 11:25 | Outpatient (BNV) | payer MEDICARE, BC, SELFPAY | PROVIDERS: Emergency Provider Student in an Organized Health Care Education/Training Program; PCP Internal Medicine; Visit Provider Internal Medicine | DX: R94.31 Abnormal electrocardiogram [ECG] [EKG] (principal); Z95.0 Presence of cardiac pacemaker | CPT/HCPCS: 93010 ==

== ENCOUNTER 2025-01-14 10:49 | Outpatient (AMB) | payer MEDICARE, BC, SELFPAY ==
[2025-01-14 10:55] VITALS: BP 100/60; PULSE 82; O2SAT 100; BMI 27.5
--- NOTE | 2025-01-14 10:55 | A.OFFPC_ITS ---
Vital Signs 01/14/25 10:55 Height 5 ft 3 in Weight 155 lb BMI 27.5 BP 100/60 Blood Pressure Location Lt brachial Position Sitting Pulse 82 Pulse Source Pulse Oximeter Pulse Oximetry (%) 100 Oxygen Delivery Method Room Air Intake Visit Reasons: HDF/rehab followup Allergies acetaminophen (From Vicodin) Allergy (Intermediate, Verified 01/14/25 11:06) per patient hydrocodone (From Vicodin) Allergy (Mild, Verified 01/14/25 11:06) CHEST PAIN Tobacco use date assessed: 08/27/24 Fall risk assessment: 1 Fall in past year Last assessed Fall Risk: 01/14/25 Dental Screening Dental Screen Date: 08/04/24 HPI HPI Comments History of Present Illness Details Patient is an 85-year-old female with past medical history of CHF s/p PPM, CKD3, HLD, HTN, Afib on warfarin, GORDON, COPD, who is here for a hospital discharge follow-up. She went to [facility] Emergency but department on December 07 for worsening shortness of breath for 1 week. She had seen her casting inspector and they did increase her Lasix from 20 mg to 80 mg daily with no improvement and she continued to gain 15 lb over 2 week period and had increasing shortness of breath. She had a permanent pacemaker with a defibrillator placed a few weeks prior which was interrogated and showed no issues. Her BNP was elevated in the ED and she was admitted started on IV L asix. She had an echocardiogram done which showed decreased LV systolic function with an estimated EF of 10-15% and discharged on December 15. On that date, she was admitted to [facility] for generalized weakness in the setting of CHF exacerbation with impaired functional mobility and ADLs. She was discharged from there 12/25. Discharge instructions were: Continue PT OT, physiatry following Follow up with casting inspector, Dr. Franklin Jain Continue metoprolol 50mg daily, lisinopril 5mg daily, furosemide 40 mg BID, spironolactone 12.5 mg daily and Coumadin Blood pressures were soft and mildly low throughout her stay at rehab so her blood pressure medications were adjusted as above. Follow up with Pulmonary outpatient. Today, she is here with grandana Dean. She feels somewhat better, less short of breath. She is back to her baseline weight today. She does not weigh herself every day, her grandson goes over to weigh her every few days. She lives with her and her grandson is 1/4mi down [address]. He stops by daily and checks on her. Has Cards follow up on 01/[address] Franklin Jain. Pulmonology follow up is not for a while as she just saw him and had a full workup, she sees Dr Colon. She has been going to wound care for ulcers on her legs, right leg is healed, left leg and toe have small ulcers but are doing well. she has an appt next week with wound care. Has both legs fully wrapped today. [facility] Medical History HFrEF (heart failure with reduced ejection fraction) Chronic atrial fibrillation Chronic anticoagulation Obesity CKD (chronic kidney disease) stage 3, GFR 30-59 ml/min Nephrolithiasis, uric acid Hyperlipidemia HTN (hypertension) A-fib GORDON (obstructive sleep apnea) COPD (chronic obstructive pulmonary disease) Pulmonary HTN Severe mitral regurgitation Thiamine deficiency Osteoporosis Surgical History Hx of hernia repair History of open reduction and internal fixation (ORIF) procedure Family History Father No problems noted. Mother No problems noted. Maternal Aunt Breast cancer Social History Household Members: Spouse Housing: House Do you presently have visiting nurse or other home services: Yes (poor historian unable to answer.) Alcohol intake: never Patient Tobacco Use Status: Former Tobacco user Tobacco use type: Cigarette e-Cigarette/Vaping Use: Never Used Second Hand Smoke Exposure: No Advance Directives Date on File: 11/28/23 service: No Current occupational status: retired Cognitive needs: No Hearing needs: No Vision needs: No Questionnaire Thrive Questionnaire Date Thrive assessed: 08/04/24 I am a: Patient What is your living situation today?: I choose not to answer this question Within the past 12 months, did the food you bought not last and you didn't have the money to get more?: I choose not to answer this question Within the past 12 months, did you worry whether your food would run out before you got money to buy more?: I choose not to answer this question Do you have trouble paying for medicines?: I choose not to answer this question Do you have trouble getting transportation to medical appointments?: I choose not to answer this question Do you have trouble paying your heating and electricity bill?: I choose not to answer this question Do you have trouble taking care of your child, family member or friend?: I choose not to answer this question Do you have trouble with day-to-day activities such as bathing, preparing meals, shopping, managing finances, etc.?: I choose not to answer this question Are you currently unemployed and looking for a job?: I choose not to answer this question Are you interested in more education?: I choose not to answer this question Please select the resources that you would like help with: None Currently or been in a relationship where the following occur: I choose not to answer THRIVE Score: 0 ADRIAN-7 AMB Questionnaire ADRIAN-7 Date ADRIAN - 7 assessed: 08/04/24 Source: Developed by Drs. Tae Valentine, Becca Olivia, Silviano Stallings and colleagues, with an educational lauryn from [employer]. Review of Systems Const All systems reviewed & are unremarkable except as noted in HPI and below Physical exam (Primary Care) Vital Signs: Last Vital Signs Pulse 82 01/14/25 10:55 BP 100/60 01/14/25 10:55 Pulse Ox 100 01/14/25 10:55 Oxygen Delivery Method Room Air 01/14/25 10:55 BMI result Body Mass Index 27.5 Tobacco/Smoking Status: Tobacco use Status Tobacco use date assessed 08/27/24 01/14/25 10:58 Patient Tobacco Use Status Former Tobacco user 01/14/25 10:58 Tobacco use type Cigarette 01/14/25 10:58 e-Cigarette/Vaping Use Never Used 01/14/25 10:58 Thrive Assessment: Date of Thrive Assessment Date Thrive assessed 08/04/24 01/14/25 10:58 Currently or been in a relationship where the following occur: I choose not to answer Const General: cooperative, healthy appearing, comfortable, no acute distress and well developed Orientation/consciousness: patient oriented x3 Limitations: no limitations HENMT Head: Yes normal to inspection Ears: hearing grossly normal bilaterally General nose exam: Normal external nose present Face and sinus: Yes normal facial exam Eyes General: appearance normal, both eyes and all related structures Neck Neck: Yes normal visual inspection and Yes full ROM Resp Effort & Inspection: normal respiratory effort and able to speak in complete sentences Auscultation: clear to auscultation bilaterally Cardio Rate: regular rate Rhythm: regular rhythm Heart sounds: normal S1 and S2 Skin General skin exam: no rashes or lesions noted Neuro General: patient oriented x3 Extrem General: Yes normal to inspection Coding Level of Care Code Est Pt Level 5 (86240) Diagnoses Hospital discharge follow-up Z09 HFrEF (heart failure with reduced ejection fraction) I50.20 CKD (chronic kidney disease) stage 3, GFR 30-59 ml/min N18.30 Assessment & Plan Assessment & Plan (1) Hospital discharge follow-up: Code(s): Z09 - Encounter for follow-up examination after completed treatment for conditions other than malignant neoplasm Category: Medical Plan: VSS, lungs clear and weight is at baseline, patient breathing easy. Continue taking your medications, as prescribed. Will get repeat CMP as she is on spirinolactone. Sent refills on meds. (2) HFrEF (heart failure with reduced ejection fraction): Comment: Cardiology [facility] Dr. Khoury, , Echo 10/2022 global left ventricular hypokinesis ejection fraction 40%, severe decreased function of right ventricle, Echo 06/2024 EF 20%-25%, started on amiodarone and scheduled for cardioversion, status post pacemaker update to [employer] 10/2024 Code(s): I50.20 - Unspecified systolic (congestive) heart failure Category: Medical Plan: as above (3) CKD (chronic kidney disease) stage 3, GFR 30-59 ml/min: Code(s): N18.30 - Chronic kidney disease, stage 3 unspecified Category: Medical Plan: as above Orders: Orders Comprehensive Met. Panel Today I50.20 - Unspecified systolic (congestive) heart failure, N18.30 - Chronic kidney disease, stage 3 unspecified Medications: New lisinopril 5 mg PO BID 90 tabs 2RF metoprolol succinate ER 50 mg PO DAILY 90 tabs 2RF Refilled spironolactone 12.5 mg See Protocol PO DAILY 90 tabs 2RF
--- OUTSIDE RECORDS SUMMARY | 2025-01-14 11:56 | XMS_ITS | Clinical Summary ---
Author Organization [facility] Facility Address [address] [address] Care Team Providers Care River Rafting Guide Name Role Phone Kiesha Macedo MD Primary Care Provider [phone] Social History Tobacco Use Types Packs/Day Years [...] age to complete this topic Insurance Medicare [facility] Medicare [facility] Care Teams River Rafting Guide Relationship Specialty Start Date End Date Kiesha Macedo MD 1959 [place], [place] PCP - General Internal Medicine 08/29/22
--- OUTSIDE RECORDS SUMMARY | 2025-01-14 11:56 | XMS_ITS | Encounter Summary ---
Author Organization [facility] Address [address] [place] [address] Care Team Providers Care Clinical Document Improvement Educator Name Role Phone Sal Cardoso Primary Care Provider [phone] Encounter Details Date Type Department Care Team (Late st Contact Info) Description 12/16/[address] [facility] - Main Lab [address] [facility] [place] [address] Sal Cardoso [address] [phone] Encounter for other general examination Social History [...] AM EDT) WBC 6.7 4.8 - 10.8 /Health system LAB HEMETOLOGY METHOD 12/16/2024 11:02 AM [facility] RBC 4.00 3.80 - 4.80 M/mcL LAB HEMETOLOGY METHOD 12/16/2024 11:02 AM [facility] Hemoglobin 11.4(L) 11.5 - 16.0 g/dL LAB HEMETOLOGY METHOD 12/16/2024 11:02 AM [facility] Hematocrit 36.6 35.0 - 47.0 % LAB HEMETOLOGY METHOD 12/16/2024 11:02 AM [facility] MCV 91.5 79.0 - 98.0 FL LAB HEMETOLOGY METHOD 12/16/2024 11:02 AM [facility] MCH 28.5 27.0 - 32.0 pcg LAB HEMETOLOGY METHOD 12/16/2024 11:02 AM [facility] MCHC 31.1(L) 32.0 - 37.0 g/dL LAB HEMETOLOGY METHOD 12/16/2024 11:02 AM [facility] RDW 18.2(H) 11.0 - 15.0 % LAB HEMETOLOGY METHOD 12/16/2024 11:02 AM [facility] Platelets 151 130 - 400 K/mcL LAB HEMETOLOGY METHOD 12/16/2024 11:02 AM [facility] MPV 11.9(H) 7.0 - 11.0 FL LAB HEMETOLOGY METHOD 12/16/2024 11:02 AM [facility] NRBC 0.0 <1.0 % LAB HEMETOLOGY METHOD 12/16/2024 11:02 AM [facility] NRBC Absolute 0.00 <0.10 K/mcL LAB HEMETOLOGY METHOD 12/16/2024 11:02 AM [facility] Neutrophils Relative 79.9 % LAB HEMETOLOGY METHOD 12/16/2024 11:02 AM [facility] Lymphocytes Relative 12.3 % LAB HEMETOLOGY METHOD 12/16/2024 11:02 AM [facility] Monocytes Relative 6.0 % LAB HEMETOLOGY METHOD 12/16/2024 11:02 AM [facility] Eosinophils Relative 1.2 % LAB HEMETOLOGY METHOD 12/16/2024 11:02 AM [facility] Basophils Relative 0.3 % LAB HEMETOLOGY METHOD 12/16/2024 11:02 AM [facility] Immature Granulocytes Relative 0.3 % LAB HEMETOLOGY METHOD 12/16/2024 11:02 AM [facility] Neutrophils Absolute 5.33 1.50 - 7.00 K/mcL LAB HEMETOLOGY METHOD 12/16/2024 11:02 AM [facility] Lymphocytes Absolute 0.82(L) 1.00 - 5.00 K/mcL LAB HEMETOLOGY METHOD 12/16/2024 11:02 AM [facility] Monocytes Absolute 0.40 0.20 - 1.00 K/mcL LAB HEMETOLOGY METHOD 12/16/2024 11:02 AM [facility] Eosinophils Absolute 0.08 0.00 - 0.50 K/mcL LAB HEMETOLOGY METHOD 12/16/2024 11:02 AM [facility] Basophils Absolute 0.02 0.00 - 0.20 K/mcL LAB HEMETOLOGY METHOD 12/16/2024 11:02 AM [facility] Immature Granulocytes Absolute 0.02 0.00 - 0.03 K/mcL LAB HEMETOLOGY METHOD 12/16/2024 11:02 AM [facility] Blood Venous blood specimen / Unknown Venipuncture / Unknown 12/16/2024 5:53 AM EDT 12/16/2024 10:18 AM EDT Sal Cardoso LAB BLOOD ORDERABLES Final Resu lt [facility] [address] [place] [address], [place] [phone] * Magnesium (12/16/2024 5:53 AM EDT) [facility] Magnesium 2.1 1.9 - 2.6 mg/dL LAB CHEMISTRY METHOD 12/16/2024 11:34 AM EDT [facility] Blood Venous blood specimen / Unknown Venipuncture / Unknown 12/16/2024 5:53 AM EDT 12/16/2024 10:18 AM EDT Sal Cardoso LAB BLOOD ORDERABLES Final Resu lt Performing Organization Address [facility]/ZIP Co de Phone Number [facility] [address] [place] [address], [place] [phone] * (ABNORMAL) Comprehensive metabolic panel (12/16/2024 5:53 AM EDT) [facility] Sodium 143 133 - 145 mmol/L LAB CHEMISTRY METHOD 12/16/2024 11:51 AM EDT [facility] Potassium 4.2 3.5 - 5.5 mmol/L LAB CHEMISTRY METHOD 12/16/2024 11:51 AM EDT [facility] Chloride 103 96 - 110 mmol/L LAB CHEMISTRY METHOD 12/16/2024 11:51 AM EDT [facility] CO2 33(H) 21 - 32 mmol/L LAB CHEMISTRY METHOD 12/16/2024 11:51 AM EDT [facility] Anion Gap 7 3 - 11 LAB CHEMISTRY METHOD 12/16/2024 11:51 AM EDT [facility] Glucose 94 70 - 100 mg/dL LAB CHEMISTRY METHOD 12/16/2024 11:51 AM [facility] BUN 33(H) 5 - 25 mg/dL LAB CHEMISTRY METHOD 12/16/2024 11:51 AM [facility] Creatinine 1.02 0.50 - 1.10 mg/dL LAB CHEMISTRY METHOD 12/16/2024 11:51 AM [facility] eGFR 55(L) >=60 mL/min/1. 73m2 LAB CHEMISTRY METHOD 12/16/2024 11:51 AM [facility] Comment:Calculation based on the Chronic Kidney Disease Epidemiology Collaboration (CKD-EPI) equation refit without adjustment for race. BUN/Creatinine Ratio 32.4 LAB CHEMISTRY METHOD 12/16/2024 11:51 AM [facility] Calcium 8.5 8.5 - 10.5 mg/dL LAB CHEMISTRY METHOD 12/16/2024 11:51 AM [facility] AST (SGOT) 32 10 - 42 unit/L LAB CHEMISTRY METHOD 12/16/2024 11:51 AM [facility] ALT (SGPT) 28 10 - 60 unit/L LAB CHEMISTRY METHOD 12/16/2024 11:51 AM [facility] Alkaline Phosphatase 122(H) 42 - 121 unit/L LAB CHEMISTRY METHOD 12/16/2024 11:51 AM [facility] Total Protein 4.8(L) 6.0 - 8.0 g/dL LAB CHEMISTRY METHOD 12/16/2024 11:51 AM [facility] Albumin 2.4(L) 3.2 - 5.0 g/dL LAB CHEMISTRY METHOD 12/16/2024 11:51 AM [facility] Total Bilirubin 0.8 0.0 - 1.4 mg/dL LAB CHEMISTRY METHOD 12/16/2024 11:51 AM [facility] Blood Venous blood specimen / Unknown Venipuncture / Unknown 12/16/2024 5:53 AM EDT 12/16/2024 10:18 AM EDT Sal Cardoso LAB BLOOD ORDERABLES Final Resu lt [facility] [address] [place] [address], documented in this encounter Visit Diagnoses Diagnosis Encounter for other general examination documented in this encounter Care Teams Clinical Document Improvement Educator Relationship Specialty Start Date End Date Sal Cardoso [address] [phone] PCP - General 12/16/24 documented as of this encounter
--- OUTSIDE RECORDS SUMMARY | 2025-01-14 11:56 | XMS_ITS | Encounter Summary ---
Author Organization [facility] Address [address] [place] [address] [place] [address] Phone Care Team Providers Care Sole Skiver Name Role Phone Kiesha Macedo MD Primary Care Provider [phone] Samira Stroud MD Unavailable [phone] Encounter Details Date Type Department Care Team (Late st Contact Info) Description 04/21/2020 Procedure Pass [facility] [address] [place] [address] Social History Tobacco Use Types Packs/Day Years Used Date Smoking Tobacco: Former Smokeless Tobacco: Never Alcohol Use Standard Drinks/Week Comments No 0 (1 standard drink = 0.6 oz pur e alcohol) Comments Unknown Sex and Gender Information Value Date Recorded Sex Assigned at Not on file Legal Sex Female 10:11 PM EDT Gender Identity Not on file Sexual Orientation Not on file documented as of this encounter Plan of Treatment Upcoming Encounters Date Type Department Care Team (Late st Contact Info) Description 02/16/2025 3:20 PM EDT Office Visit [facility] [address] [place] [address] [address] Floor, [address] [place] [address] Franklin Jain MD [address] [facility], [address] [place] [address] [phone] [email or web address] documented as of this encounter Visit Diagnoses Not on filedocumented in this encounter Care Teams Sole Skiver Relationship Specialty Start Date End Date Kiesha Macedo MD [address] [facility] [place] [facility] [place] [address] PCP - General Internal Medicine 10/07/18 Samira Stroud MD [address] [facility] [place] [address] [email or web address] Cardiology 07/13/20 documented as of this encounter Additional Source Comments The information contained in this document represents components of the legal health record. It is not the complete legal health record.[facility]
--- OUTSIDE RECORDS SUMMARY | 2025-01-14 11:56 | XMS_ITS | Patient Health Record ---
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
== END 2025-01-14 11:49 | disposition home or self-care (01) ==
PROVIDERS: PCP Internal Medicine; Visit Provider Physician Assistant
DX: I50.20 Unspecified systolic (congestive) heart failure (principal); N18.30 Chronic kidney disease, stage 3 unspecified; Z09 Encounter for follow-up examination after completed treatment for conditions other than malignant neoplasm

== ENCOUNTER 2025-01-14 10:49 | Outpatient (REF) | payer MEDICARE, BC, SELFPAY ==
[2025-01-14 13:38] LABS: Alanine Aminotransferase 23 U/L (0-31); Albumin Level 3.2 g/dL (3.5-5.0); Alkaline Phosphatase 121 U/L (39-117); Anion Gap 12 (12-20); Aspartate Amino Transferase 32 U/L (5-31); Blood Urea Nitrogen 20 mg/dL (9-16); Calcium 8.5 mg/dL (8.4-10.2); Carbon Dioxide 28 mmol/L (22-29); Chloride 106 mmol/L (96-108); Estimated Glomerular Filt Rate 47; Potassium 4.5 mmol/L (3.3-5.1); Sodium 141 mmol/L (135-145); Total Protein 5.7 g/dL (6.5-8.0)
== END 2025-01-14 10:50 | disposition home or self-care (01) ==
LOC: HO.HMGCLDS 10:49
PROVIDERS: PCP Internal Medicine; Visit Provider Physician Assistant
DX: Z09 Encounter for follow-up examination after completed treatment for conditions other than malignant neoplasm (principal); I50.20 Unspecified systolic (congestive) heart failure; N18.30 Chronic kidney disease, stage 3 unspecified
CPT/HCPCS: 36415; 80053; 99212

== ENCOUNTER → 2025-02-24 23:59 | Outpatient (BNV) | payer MEDICARE, BC, SELFPAY | PROVIDERS: PCP Internal Medicine; Visit Provider Internal Medicine | DX: I87.2 Venous insufficiency (chronic) (peripheral) (principal) | CPT/HCPCS: G0179 ==

== ENCOUNTER 2025-04-06 14:40 | Outpatient (AMB) | payer MEDICARE, BC, SELFPAY ==
[2025-04-06 14:42] VITALS: BP 118/86; PULSE 86; TEMP 36.3; O2SAT 97; BMI 23.9
--- NOTE | 2025-04-06 14:42 | MHC.OFFWIV ---
Intake Vital Signs 04/06/25 14:42 Height 5 ft 3 in Weight 135 lb BMI 23.9 BP 118/86 Blood Pressure Location Rt brachial Position Sitting Pulse 86 Pulse Source Pulse Oximeter Temp 97.4 F Temp Source Oral Pulse Oximetry (%) 97 Oxygen Delivery Method Room Air Comment WT taken at home today, pt in w/c Intake Visit Reasons: EP Body soreness from fall Intake Note: pt presents with bilateral hip pain and low back pain after a fall 3 days ago; fell backwards onto toilet/wall space Patient Tobacco Use Status: Former Tobacco user Allergies acetaminophen (From Vicodin) Allergy (Intermediate, Verified 04/06/25 14:47) per patient hydrocodone (From Vicodin) Allergy (Mild, Verified 04/06/25 14:47) CHEST PAIN Do you need a note to return to daycare/school/sports/work: No HPI HPI Comments History of Present Illness Details History of Present Illness - The patient is an 84-year-old female presenting with soreness to the left side of her body and chest following a fall. - The fall occurred in a bathroom on Saturday where the patient accidentally entered the men's room and fell between the toilet and the wall, resulting in soreness in the hips, buttocks, and ribcage. - The patient has a history of osteoporosis, which may contribute to her susceptibility to falls and fractures. 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 - The patient has a dual pacemaker and reports much improvement since having it placed. - She has a history of kneecap fractures, which required a brace for healing, and a kidney stone with a stent placed over a year ago. - She also had had Physical Exam General: Cooperative, healthy appearing, comfortable, no acute distress and well developed Orientation: Patient oriented x3 Limitations: In a wheelchair but able to stand from her chair Head: Normal to inspection Neck: Normal visual inspection, full ROM Respiratory: Normal respiratory effort and able to speak in complete sentences. No w/r/r noted. Skin: No rashes or lesions noted, no bruising observed. No abrasions noted. Neuro: Patient oriented x3, CN 2-12 intact, gait not observed. Back/spine: no TTP cervical, thoracic or lumbar spine, no pain upon palpation. Kyphosis noted. Extremities: FROM of the LE bilaterally. No TTP of the hips bilaterally, upper legs, knees, lower legs, ankles, or feet. Patient was informed and verbally consented to the use of an ambient scribe for clinic note documentation during this visit. [facility] Medical History HFrEF (heart failure with reduced ejection fraction) Chronic atrial fibrillation Chronic anticoagulation Obesity CKD (chronic kidney disease) stage 3, GFR 30-59 ml/min Nephrolithiasis, uric acid Hyperlipidemia HTN (hypertension) A-fib GORDON (obstructive sleep apnea) COPD (chronic obstructive pulmonary disease) Pulmonary HTN Severe mitral regurgitation Thiamine deficiency Osteoporosis Surgical History Hx of hernia repair History of open reduction and internal fixation (ORIF) procedure Family History Father No problems noted. Mother No problems noted. Maternal Aunt Breast cancer Social History Household Members: Spouse Housing: House Do you presently have visiting nurse or other home services: Yes (poor historian unable to answer.) Alcohol intake: never Patient Tobacco Use Status: Former Tobacco user Tobacco use type: Cigarette e-Cigarette/Vaping Use: Never Used Second Hand Smoke Exposure: No Advance Directives Date on File: 11/28/23 service: No Current occupational status: retired Cognitive needs: No Hearing needs: No Vision needs: No Review of Systems Const All systems reviewed & are unremarkable except as noted in HPI and below Physical Exam Vital Signs: Last Vital Signs Temp 97.4 F 04/06/25 14:42 Pulse 86 04/06/25 14:42 BP 118/86 04/06/25 14:42 Pulse Ox 97 04/06/25 14:42 Oxygen Delivery Method Room Air 04/06/25 14:42 BMI result Body Mass Index 23.9 Assessment & Plan Assessment & Plan (1) Fall: Code(s): W19.XXXA - Unspecified fall, initial encounter Qualifiers: Encounter type: initial encounter Qualified Code(s): W19.XXXA - Unspecified fall, initial encounter (2) Pain of left side of body: Code(s): R52 - Pain, unspecified Plan Most likely muscle strains after a fall X-rays discussed but not necessary at this time Plan - Monitor for any worsening of soreness or new symptoms, particularly in the chest and hips. - Continue taking Tylenol for pain management as it has been effective in reducing inflammation. - Use heat therapy, such as a heating pad, to alleviate muscle tension and soreness. - Follow up with primary care physician if symptoms persist or worsen beyond a few days. Coding Level of Care Code Est Pt Level 3 (77958) Diagnoses Fall, initial encounter W19.XXXA Encounter type: initial encounter Pain of left side of body R52
--- OUTSIDE RECORDS SUMMARY | 2025-04-06 17:45 | XMS_ITS | Encounter Summary ---
Author Organization [facility] Address [address] [place] [address] [place] [address] Phone Care Team Providers Care Intelligence Agent Name Role Phone Kiesha Macedo MD Primary Care Provider [phone] Samira Stroud MD Unavailable [phone] Encounter Details Date Type Department Care Team (Late st Contact Info) Description 04/05/2020 Procedure Pass [facility] [address] [place] [address] Social History Tobacco Use Types Packs/Day Years [...] Care Team (Late st Contact Info) Description 10/14/2024 Procedure Pass Non-Invasive Cardiology [address] [place] [address] 10/28/2024 Procedure Pass Non-Invasive Cardiology [address] [place] [address] 10/28/2024 Procedure Pass Non-Invasive Cardiology [address] [place] [address] 02/16/2025 Procedure Pass Echo [facility] [place] [address] [place] [address] 06/18/2025 1:30 PM EST Appointment Echo Lab [address] [place] [address] Franklin Jain MD [address] [place] [address], [address] [address] 07/27/2025 8:00 AM EST Office Visit [facility] [address] [place] [address] 3rd Floor, [address] [place] [address] Franklin Jain MD [address] [place] [address], [address] [address] 07/27/2025 8:30 AM EST Appointment Non-Invasive Cardiology [address] [place] [address] Eyad Khoury MD [address] [place] [address] [email or web address] documented as of this encounter Visit Diagnoses Not on filedocumented in this encounter Care Teams Intelligence Agent Relationship Specialty Start Date End Date Kiesha Macedo MD [address] [place] [address] PCP - General Internal Medicine 10/07/18 Samira Stroud MD [address] [place] [address] [email or web address] Cardiology 07/13/20 documented as of this encounter Additional Source Comments The information contained in this document represents components of the legal health record. It is not the complete legal health record.[facility]
--- OUTSIDE RECORDS SUMMARY | 2025-04-06 17:45 | XMS_ITS | Encounter Summary ---
Author Organization [facility] Address [address] [place] [address] [place] [address] Phone Care Team Providers Care Hem Marker Name Role Phone Kiesha Macedo MD Primary Care Provider [phone] Samira Stroud MD Unavailable Encounter Details Date Type Department Care Team (Late st Contact Info) Description 02/13/2023 Procedure Pass Non-Invasive Cardiology [address] [place] [address] [place] [id number] Social History Tobacco Use Types Packs/Day Years Used Date Smoking Tobacco: Former Cigarettes Smokeless Tobacco: Never Comments:quit age 33 Alcohol Use Standard Drinks/Week Comments No 0 (1 standard drink = 0.6 oz pur e alcohol) Education Answer Date Recorded Are you interested in more education? Not on stephie e 09/28/2022 Are you concerned about learning? Not on file 09/28/2022 No 09/28/2022 No 09/28/2022 Digital Access Answer Date Recorded No 10/27/2022 No 10/27/2022 Reliable internet access at home? Not on file 10/27/2022 Device with a working camera? Not on file Comments No Sex and Gender Information Value Date Recorded Sex Assigned at Not on file Legal Sex Female 10:11 PM EDT Gender Identity Not on file Sexual Orientation Not on file documented as of this encounter Plan of Treatment Upcoming Encounters Date Type Department Care Team (Late st Contact Info) Description 10/14/2024 Procedure Pass Non-Invasive Cardiology [address] [place] [address] 10/28/2024 Procedure Pass Non-Invasive Cardiology [address] [place] [address] 10/28/2024 Procedure Pass Non-Invasive Cardiology [address] [place] [address] 02/16/2025 Procedure Pass Echo Lab [address] [place] [address] 06/18/2025 1:30 PM EST Appointment Echo Lab [address] [place] [address] Franklin Jain MD [address] [place] [address], [address] [place] [address] 07/27/2025 8:00 AM EST Office Visit [facility] [address] [place] [address] 3rd Floor, [address] [place] [address] Franklin Jain MD [address] [place] [address], [address] [address] 07/27/2025 8:30 AM EST Appointment Non-Invasive Cardiology [address] [place] [address] [place] [address] Eyad Khoury MD [address] [place] [address] documented as of this encounter Visit Diagnoses Not on filedocumented in this encounter Care Teams Hem Marker Relationship Specialty Start Date End Date Kiesha Macedo MD [facility] [place], [place] PCP - General Internal Medicine 10/07/18 Samira Stroud MD [facility] [place], [place] [email or web address] Cardiology 07/13/20 documented as of this encounter Additional Source Comments The information contained in this document represents components of the legal health record. It is not the complete legal health record.[facility]
--- OUTSIDE RECORDS SUMMARY | 2025-04-06 17:45 | XMS_ITS | Encounter Summary ---
Author Organization [facility] Address [address] [place] [address] [place] [address] Phone Care Team Providers Care Windows Systems Administrator Name Role Phone Kiesha Macedo MD Primary Care Provider [phone] Samira Stroud MD Unavailable [phone] Encounter Details Date Type Department Care Team (Late st Contact Info) Description 11/20/2022 Procedure Pass Non-Invasive Cardiology [address] [place] [id number] Social History Tobacco Use Types Packs/Day Years [...] Description 10/14/2024 Procedure Pass Non-Invasive Cardiology [address] [place] [address] 10/28/2024 Procedure Pass Non-Invasive Cardiology [address] [place] [address] 10/28/2024 Procedure Pass Non-Invasive Cardiology [address] [place] [address] 02/16/2025 Procedure Pass Echo Lab [address] [place] [address] 06/18/2025 1:30 PM EST Appointment Echo Lab [address] [place] [address] Franklin Jain MD [address] [place] [address], [address] [place] [address] 07/27/2025 8:00 AM EST Office Visit [facility] [address] [place] [address] 3rd Floor, [address] [place] [address] Franklin Jain MD [address] [place] [address], [address] [address] 07/27/2025 8:30 AM EST Appointment Non-Invasive Cardiology [address] [place] [address] [place] [address] Eyad Khoury MD [address] [place] [address] documented as of this encounter Visit Diagnoses Not on filedocumented in this encounter Care Teams Windows Systems Administrator Relationship Specialty Start Date End Date Kiesha Macedo MD [facility] [place], [place] PCP - General Internal Medicine 10/07/18 Samira Stroud MD [facility] [place], [place] [email or web address] Cardiology 07/13/20 documented as of this encounter Additional Source Comments The information contained in this document represents components of the legal health record. It is not the complete legal health record.[facility]
--- OUTSIDE RECORDS SUMMARY | 2025-04-06 17:45 | XMS_ITS | Encounter Summary ---
Author Organization [facility] Address [address] [place] [address] Phone Care Team Providers Care Finish Inspector Name Role Phone Kiesha Macedo MD Primary Care Provider [phone] Samira Stroud MD Unavailable [phone] Encounter Details Date Type Department Care Team (Late st Contact Info) Description 11/20/2022 Ancillary Orders [facility] [address]rd Floor, [address] [place] [address] Nabeel Casas MD [address] [place] [address] [email or web address] Social History Tobacco Use Types Packs/Day Years [...] Description 10/14/2024 Procedure Pass Non-Invasive Cardiology [address] [place] [address] 10/28/2024 Procedure Pass Non-Invasive Cardiology [address] [place] [address] 10/28/2024 Procedure Pass Non-Invasive Cardiology [address] [place] [address] 02/16/2025 Procedure Pass Echo Lab [address] [place] [address] 06/18/2025 1:30 PM EST Appointment Echo Lab [address] [place] [address] Franklin Jain MD [address] [place] [address], [address] [address] 07/27/2025 8:00 AM EST Office Visit [facility] [address] [place] [address] 3rd Floor, [address] [place] [address] Franklin Jain MD [address] [place] [address] 07/27/2025 8:30 AM EST Appointment Non-Invasive Cardiology [address] [place] [address] [place] [address] Eyad Khoury MD [address] [place] [address] documented as of this encounter Visit Diagnoses Not on filedocumented in this encounter Care Teams Finish Inspector Relationship Specialty Start Date End Date Kiesha Macedo MD [address] [place] [address] PCP - General Internal Medicine 10/07/18 Samira Stroud MD [address] [place] [address] [email or web address] Cardiology 07/13/20 documented as of this encounter Additional Source Comments The information contained in this document represents components of the legal health record. It is not the complete legal health record.[facility]
--- OUTSIDE RECORDS SUMMARY | 2025-04-06 17:45 | XMS_ITS | Encounter Summary ---
Author Organization [facility] Address [address] [place] [address] [place] [address] Phone Care Team Providers Care Head Of Global Strategic Partnerships Name Role Phone Kiesha Macedo MD Primary Care Provider [phone] Samira Stroud MD Unavailable [phone] Encounter Details Date Type Department Care Team (Late st Contact Info) Description 02/07/2022 Procedure Pass Non-Invasive Cardiology [address] [place] [address] Social History Tobacco Use Types Packs/Day Years Used Date Smoking Tobacco: Former Cigarettes Smokeless Tobacco: Never Comments:quit age 33 Alcohol Use Standard Drinks/Week Comments No 0 (1 standard drink = 0.6 oz pur e alcohol) Comments No Sex and Gender Information Value Date Recorded Sex Assigned at Not on file Legal Sex Female 10:11 PM EDT Gender Identity Not on file Sexual Orientation Not on file documented as of this encounter Plan of Treatment Upcoming Encounters Date Type Department Care Team (Late st Contact Info) Description 10/14/2024 Procedure Pass Non-Invasive Cardiology [address] [place] [address] 10/28/2024 Procedure Pass Non-Invasive Cardiology [address] [place] [address] 10/28/2024 Procedure Pass Non-Invasive Cardiology [address] [place] [address] 02/16/2025 Procedure Pass [facility] [address] [place] [address] 06/18/2025 1:30 PM EST Appointment Echo Lab [address] [place] [address] Franklin Jain MD [address] [place] [address], [address] [address] 07/27/2025 8:00 AM EST Office Visit [facility] [address] [place] [address] 3rd Floor, [address] [place] [address] Franklin Jain MD [address] [place] [address], [address] [address] 07/27/2025 8:30 AM EST Appointment Non-Invasive Cardiology [address] [place] [address] Eyad Khoury MD [address] [place] [address] [email or web address] documented as of this encounter Visit Diagnoses Not on filedocumented in this encounter Care Teams Head Of Global Strategic Partnerships Relationship Specialty Start Date End Date Kiesha Macedo MD [address] [place] [address] PCP - General Internal Medicine 10/07/18 Samira Stroud MD [address] [place] [address] [email or web address] Cardiology 07/13/20 documented as of this encounter Additional Source Comments The information contained in this document represents components of the legal health record. It is not the complete legal health record.[facility]
--- OUTSIDE RECORDS SUMMARY | 2025-04-06 17:45 | XMS_ITS | Encounter Summary ---
Author Organization [employer] [facility] Address [address] [place] [address] Care Team Providers Care Director Learning And Development Name Role Phone Sal Cardoso Primary Care Provider Encounter Details Date Type Department Care Team (Late st Contact Info) Description 12/21/2024 Lab Requisition [facility] - Main Lab [address] [place] [address] Malik Malave MD [address] [place] [address] Encounter for other general examination Social History [...] Procedure Name Priority Date/Time Associated Diagnosis Comments COMPLETE BLOOD COUNT Routine 12/21/2024 5:26 AM EDT Encounter for other general examination MAGNESIUM Routine 12/21/2024 5:26 AM EDT Encounter for other general examination COMPREHENSIVE METABOLIC PANEL Routine 12/21/2024 5:26 AM EDT Encounter for other general examination documented in this encounter Results * Magnesium (12/21/2024 5:26 AM EDT) Magnesium 2.0 1.9 - 2.6 mg/dL LAB CHEMISTRY METHOD 12/21/2024 2:18 PM EDT [facility] ([facility]) [facility] Blood Venous blood specimen / Unknown Venipuncture / Unknown 12/21/2024 5:26 AM EDT 12/21/2024 10:58 AM EDT us Malik Malave MD LAB BLOOD ORDERABLES Final Resu lt [facility] [address] [place] [address], [place] [phone] * (ABNORMAL) Comprehensive metabolic panel (12/21/2024 5:26 AM EDT) Sodium 142 133 - 145 mmol/L LAB CHEMISTRY METHOD 12/21/2024 2:18 PM EDT [facility] Potassium 4.3 3.5 - 5.5 mmol/L LAB CHEMISTRY METHOD 12/21/2024 2:[address] [facility] Chloride 104 96 - 110 mmol/L LAB CHEMISTRY METHOD 12/21/2024 2:[address] [facility] CO2 35(H) 21 - 32 mmol/L LAB CHEMISTRY METHOD 12/21/2024 2:[address] [facility] Anion Gap 3 3 - 11 LAB CHEMISTRY METHOD 12/21/2024 2:[address] [facility] Glucose 79 70 - 100 mg/dL LAB CHEMISTRY METHOD 12/21/2024 2:[address] [facility] BUN 27(H) 5 - 25 mg/dL LAB CHEMISTRY METHOD 12/21/2024 2:[address] [facility] Creatinine 1.18(H) 0.50 - 1.10 mg/dL LAB CHEMISTRY METHOD 12/21/2024 2:[address] [facility] eGFR 46(L) >=60 mL/min/1. 73m2 LAB CHEMISTRY METHOD 12/21/2024 2:[address] [facility] Comment:Calculation based on the Chronic Kidney Disease Epidemiology Collaboration (CKD-EPI) equation refit without adjustment for race. BUN/Creatinine Ratio 22.9 LAB CHEMISTRY METHOD 12/21/2024 2:18 PM EDT [facility] Calcium 8.6 8.5 - 10.5 mg/dL LAB CHEMISTRY METHOD 12/21/2024 2:18 PM EDT [facility] AST (SGOT) 28 10 - 42 unit/L LAB CHEMISTRY METHOD 12/21/2024 2:18 PM T [facility] ALT (SGPT) 30 10 - 60 unit/L LAB CHEMISTRY METHOD 12/21/2024 2:18 PM EDT [facility] Alkaline Phosphatase 131(H) 42 - 121 unit/L LAB CHEMISTRY METHOD 12/21/2024 2:18 PM EDT [facility] Total Protein 4.9(L) 6.0 - 8.0 g/dL LAB CHEMISTRY METHOD 12/21/2024 2:[address] [facility] Albumin 2.4(L) 3.2 - 5.0 g/dL LAB CHEMISTRY METHOD 12/21/2024 2:18 PM T [facility] Total Bilirubin 0.7 0.0 - 1.4 mg/dL LAB CHEMISTRY METHOD 12/21/2024 2:18 PM T [facility] Blood Venous blood specimen / Unknown Venipuncture / Unknown 12/21/2024 5:26 AM EDT 12/21/2024 10:58 AM EDT us Malik Malave MD LAB BLOOD ORDERABLES Final Resu lt [facility] [address] [place] [address], * (ABNORMAL) Complete blood count (12/21/2024 5:26 AM EDT) WBC 5.2 4.8 - 10.8 K/mcL LAB HEMETOLOGY METHOD 12/21/2024 12:13 PM EDT [facility] RBC 3.80 3.80 - 4.80 M/mcL LAB HEMETOLOGY METHOD 12/21/2024 12:[address] [facility] Hemoglobin 10.6(L) 11.5 - 16.0 g/dL LAB HEMETOLOGY METHOD 12/21/2024 12:[address] [facility] Hematocrit 35.1 35.0 - 47.0 % LAB HEMETOLOGY METHOD 12/21/2024 12:[address] [facility] MCV 92.6 79.0 - 98.0 FL LAB HEMETOLOGY METHOD 12/21/2024 12:[address] [facility] MCH 28.0 27.0 - 32.0 pcg LAB HEMETOLOGY METHOD 12/21/2024 12:[address] [facility] MCHC 30.2(L) 32.0 - 37.0 g/dL LAB HEMETOLOGY METHOD 12/21/2024 12:[address] [facility] RDW 18.1(H) 11.0 - 15.0 % LAB HEMETOLOGY METHOD 12/21/2024 12:[address] [facility] Platelets 139 130 - 400 K/mcL LAB HEMETOLOGY METHOD 12/21/2024 12:[address] [facility] MPV 11.4(H) 7.0 - 11.0 FL LAB HEMETOLOGY METHOD 12/21/2024 12:[address] [facility] NRBC 0.0 <1.0 % LAB HEMETOLOGY METHOD 12/21/2024 12:[address] [facility] NRBC Absolute 0.00 <0.10 K/mcL LAB HEMETOLOGY METHOD 12/21/2024 12:[address] [facility] Blood Venous blood specimen / Unknown Venipuncture / Unknown 12/21/2024 5:26 AM EDT 12/21/2024 10:58 AM EDT us Malik Malave MD LAB BLOOD ORDERABLES Final Resu lt [facility] ([facility]) [facility] [address] [place] [address], documented in this encounter Visit Diagnoses Diagnosis Encounter for other general examination documented in this encounter Care Teams Director Learning And Development Relationship Specialty Start Date End Date Sal Cardoso PA [address] [place] [phone] PCP - General 12/16/24 documented as of this encounter
--- OUTSIDE RECORDS SUMMARY | 2025-04-06 17:45 | XMS_ITS | Encounter Summary ---
Author Organization [facility] Address [address] [place] [address] [place] [address] Phone Care Team Providers Care Patternmaker Apprentice Wood Name Role Phone Kiesha Macedo MD Primary Care Provider [phone] Samira Stroud MD Unavailable [phone] Encounter Details Date Type Department Care Team (Late st Contact Info) Description 11/20/2022 Ancillary Orders Non-Invasive Cardiology [address] [place] [address] Nabeel Casas MD [address] [place], [place] [id number] [email or web address] Complete heart block Social History Tobacco Use Types Packs/Day Years [...] Description 10/14/2024 Procedure Pass Non-Invasive Cardiology [address] [place] [address] 10/28/2024 Procedure Pass Non-Invasive Cardiology [address] [place] [address] 10/28/2024 Procedure Pass Non-Invasive Cardiology [address] [place] [address] 02/16/2025 Procedure Pass Echo Lab [address] [place] [address] 06/18/2025 1:30 PM EST Appointment Echo Lab [address] [place] [address] Franklin Jain MD [address] [place] [address], [address] [address] 07/27/2025 8:00 AM EST Office Visit [facility] [address] [place] [address] 3rd Floor, [address] [place] [address] Franklin Jain MD [address] [place] [address], [address] [address] 07/27/2025 8:30 AM EST Appointment Non-Invasive Cardiology [address] [place] [address] [place] [address] Eyad Khoury MD [address] [place] [address] documented as of this encounter Visit Diagnoses Diagnosis Complete heart block Atrioventricular block, complete documented in this encounter Care Teams Patternmaker Apprentice Wood Relationship Specialty Start Date End Date Kiesha Macedo MD [address] [place] [address] PCP - General Internal Medicine 10/07/18 Samira Stroud MD [address] [place] [address] [email or web address] Cardiology 07/13/20 documented as of this encounter Additional Source Comments The information contained in this document represents components of the legal health record. It is not the complete legal health record.[facility]
--- OUTSIDE RECORDS SUMMARY | 2025-04-06 17:45 | XMS_ITS | Encounter Summary ---
Author Organization [facility] Address [address] [place] [address] Care Team Providers Care Claim Representative Name Role Phone Sal Cardoso Primary Care Provider Encounter Details Date Type Department Care Team (Late st Contact Info) Description 12/24/[address] [facility] - Main Lab [address] [place] [address] Malik Malave MD [address] [place] [address] Encounter for other general examination Social History [...] Procedure Name Priority Date/Time Associated Diagnosis Comments MAGNESIUM Routine 12/24/2024 5:36 AM EDT Encounter for other general examination BASIC METABOLIC PANEL Routine 12/24/2024 5:36 AM EDT Encounter for other general examination documented in this encounter Results * (ABNORMAL) Basic metabolic panel (12/24/2024 5:36 AM EDT) Sodium 141 133 - 145 mmol/L LAB CHEMISTRY METHOD 12/24/2024 9:19 AM EDT [facility] Potassium 4.3 3.5 - 5.5 mmol/L LAB CHEMISTRY METHOD 12/24/2024 9:19 AM EDT [facility] Comment:Hemolysis present Chloride 102 96 - 110 mmol/L LAB CHEMISTRY METHOD 12/24/2024 9:[address] [facility] CO2 35(H) 21 - 32 mmol/L LAB CHEMISTRY METHOD 12/24/2024 9:[address] [facility] Anion Gap 4 3 - 11 LAB CHEMISTRY METHOD 12/24/2024 9:[address] [facility] Glucose 98 70 - 100 mg/dL LAB CHEMISTRY METHOD 12/24/2024 9:[address] [facility] BUN 27(H) 5 - 25 mg/dL LAB CHEMISTRY METHOD 12/24/2024 9:[address] [facility] Creatinine 1.34(H) 0.50 - 1.10 mg/dL LAB CHEMISTRY METHOD 12/24/2024 9:[address] [facility] eGFR 40(L) >=60 mL/min/1. 73m2 LAB CHEMISTRY METHOD 12/24/2024 9:[address] [facility] Comment:Calculation based on the Chronic Kidney Disease Epidemiology Collaboration (CKD-EPI) equation refit without adjustment for race. BUN/Creatinine Ratio 20.1 LAB CHEMISTRY METHOD 12/24/2024 9:[address] [facility] Calcium 8.4(L) 8.5 - 10.5 mg/dL LAB CHEMISTRY METHOD 12/24/2024 9:[address] [facility] Blood Venous blood specimen / Unknown Venipuncture / Unknown 12/24/2024 5:36 AM EDT 12/24/2024 8:57 AM EDT us Malik Malave MD LAB BLOOD ORDERABLES Final Resu lt [facility] [address] [place] [address], * Magnesium (12/24/2024 5:36 AM EDT) Magnesium 1.9 1.9 - 2.6 mg/dL LAB CHEMISTRY METHOD 12/24/2024 9:19 AM EDT [facility] Comment:Hemolysis present Blood Venous blood specimen / Unknown Venipuncture / Unknown 12/24/2024 5:36 AM EDT 12/24/2024 8:57 AM EDT us Malik Malave MD LAB BLOOD ORDERABLES Final Resu lt [facility] [address] [place] [address], documented in this encounter Visit Diagnoses Diagnosis Encounter for other general examination documented in this encounter Care Teams Claim Representative Relationship Specialty Start Date End Date Sal Cardoso PA [address] [address] PCP - General 12/16/24 documented as of this encounter
--- OUTSIDE RECORDS SUMMARY | 2025-04-06 17:45 | XMS_ITS | Encounter Summary ---
Author Organization [facility] Address [address] [place] [address] [place] [address] Phone Care Team Providers Care Animal Hospital Clerk Name Role Phone Kiesha Macedo MD Primary Care Provider [phone] Samira Stroud MD Unavailable [phone] Encounter Details Date Type Department Care Team (Late st Contact Info) Description 06/29/2020 Procedure Pass [facility] Periop [address] [place] [address] Social History Tobacco Use Types Packs/Day Years [...] on file documented as of this encounter Functional Status * Calculated C-SSRS Risk Score (Lifetime/Recent) Answer Date of Assessment Author No Risk Indicated 06/30/2020 7:00 AM Grazyna Vicente, JENNIFER * [place] Suicide Severity Rating Scale (Screener/Recent Self-Report) Question Answer Date of Assessment Author 1. Wish to be (Past 1 Month) No 06/30/2020 7:00 AM Grazyna Vicente, JENNIFER 2. Non-Specific Active Suicidal Thoughts (Past 1 Month) No 06/30/2020 7:00 AM Grazyna Vicente, JENNIFER 6. Suicidal Behavior (Lifetime) No 06/30/2020 7:00 AM EST Grazyna Shepherd RN documented as of this encounter Plan of Treatment Upcoming Encounters Date Type Department Care Team (Late st Contact Info) Description 10/14/2024 Procedure Pass Non-Invasive Cardiology [address] [place] [address] [place] [address] 10/28/2024 Procedure Pass Non-Invasive Cardiology [address] [place] [address] [place] [address] 10/28/2024 Procedure Pass Non-Invasive Cardiology [address] [place] [address] [place] [address] 02/16/2025 Procedure Pass Echo Lab [address] [place] [address] 06/18/2025 1:30 PM EST Appointment Echo Lab [address] [place] [address] Franklin Jain MD [address] [place] [address], [address] [address] 07/27/2025 8:00 AM EST Office Visit [facility] [address] [place] [address] 3rd Floor, [address] [place] [address] Franklin Jain MD [address] [place] [address], [address] [address] 07/27/2025 8:30 AM EST Appointment Non-Invasive Cardiology [address] [place] [address] [place] [address] Eyad Khoury MD [address] [place] [address] documented as of this encounter Visit Diagnoses Not on filedocumented in this encounter Care Teams Animal Hospital Clerk Relationship Specialty Start Date End Date Kiesha Macedo MD [address] [place] [address] PCP - General Internal Medicine 10/07/18 Samira Stroud MD [facility] [place] [address] [email or web address] Cardiology 07/13/20 documented as of this encounter Additional Source Comments The information contained in this document represents components of the legal health record. It is not the complete legal health record.[facility]
--- OUTSIDE RECORDS SUMMARY | 2025-04-06 17:45 | XMS_ITS | Encounter Summary ---
Author Organization [facility] Address [address] [place] [address] Phone Care Team Providers Care Sales/Marketing Name Role Phone Kiesha Macedo MD Primary Care Provider [phone] Samira Stroud MD Unavailable [phone] Encounter Details Date Type Department Care Team (Late st Contact Info) Description 05/23/[address] [facility] Cardiac Surgery [address] [place] [address] Elba Cruz PA-C [address] [place] [address] [email or web address] Social History Tobacco Use Types Packs/Day Years [...] Description 10/14/2024 Procedure Pass Non-Invasive Cardiology [address] [place] [address] 10/28/2024 Procedure Pass Non-Invasive Cardiology [address] [place] [address] 10/28/2024 Procedure Pass Non-Invasive Cardiology [address] [place] [address] 02/16/2025 Procedure Pass Echo Lab [address] [place] [address] 06/18/2025 1:30 PM EST Appointment Echo Lab [place] [address] Franklin Jain MD [address] [place] [address], [address] [place] [address] 07/27/2025 8:00 AM EST Office Visit [facility] [address] [place] [address] 3rd Floor, [address] [place] [address] Franklin Jain MD [address] [place] [address], [address] [address] 07/27/2025 8:30 AM EST Appointment Non-Invasive Cardiology [address] [place] [address] [place] [address] Eyad Khoury MD [address] [place] [address] documented as of this encounter Visit Diagnoses Not on filedocumented in this encounter Care Teams Sales/Marketing Relationship Specialty Start Date End Date Kiesha Macedo MD [facility] [place], [place] PCP - General Internal Medicine 10/07/18 Samira Stroud MD [facility] [place], [place] [email or web address] Cardiology 07/13/20 documented as of this encounter Additional Source Comments The information contained in this document represents components of the legal health record. It is not the complete legal health record.[facility]
--- OUTSIDE RECORDS SUMMARY | 2025-04-06 17:45 | XMS_ITS | Encounter Summary ---
Author Organization [facility] Address [address] [place] [address] [place] [address] Phone Care Team Providers Care Top Inventory Control Executive Name Role Phone Kiesha Macedo MD Primary Care Provider [phone] Samira Stroud MD Unavailable [phone] Encounter Details Date Type Department Care Team (Late st Contact Info) Description 02/07/2022 Procedure Pass Echo [facility] [place] [place] [address] Social History Tobacco Use Types Packs/Day Years [...] Description 10/14/2024 Procedure Pass Non-Invasive Cardiology [address] [place] [address] 10/28/2024 Procedure Pass Non-Invasive Cardiology [address] [place] [address] 10/28/2024 Procedure Pass Non-Invasive Cardiology [address] [place] [address] 02/16/2025 Procedure Pass Echo Lab [place] [address] [place] [address] 06/18/2025 1:30 PM EST Appointment Echo Lab [address] [place] [address] Franklin Jain MD [address] [place] [address], [address] [address] 07/27/2025 8:00 AM EST Office Visit [facility] [address] [place] [address] 3rd Floor, [address] [place] [address] Franklin Jain MD [address] [place] [address], [address] [address] 07/27/2025 8:30 AM EST Appointment Non-Invasive Cardiology [address] [place] [address] Eyad Khoury MD [address] [place] [address] [email or web address] documented as of this encounter Visit Diagnoses Not on filedocumented in this encounter Care Teams Top Inventory Control Executive Relationship Specialty Start Date End Date Kiesha Macedo MD [address] [place] [address] PCP - General Internal Medicine 10/07/18 Samira Stroud MD [address] [place] [address] [email or web address] Cardiology 07/13/20 documented as of this encounter Additional Source Comments The information contained in this document represents components of the legal health record. It is not the complete legal health record.[facility]
--- OUTSIDE RECORDS SUMMARY | 2025-04-06 17:45 | XMS_ITS | Encounter Summary ---
Author Organization [facility] Address [address] [place] [address] [place] [address] Phone Care Team Providers Care Digital Librarian Name Role Phone Kiesha Macedo MD Primary Care Provider [phone] Samira Stroud MD Unavailable [phone] Encounter Details Date Type Department Care Team (Late st Contact Info) Description 07/10/2021 Procedure Pass Non-Invasive Cardiology [address] [place] [address] Social History Tobacco Use Types Packs/Day Years [...] Description 10/14/2024 Procedure Pass Non-Invasive Cardiology [address] [place] [address] 10/28/2024 Procedure Pass Non-Invasive Cardiology [address] [place] [address] 10/28/2024 Procedure Pass Non-Invasive Cardiology [address] [place] [address] 02/16/2025 Procedure Pass Echo Lab [address] [place] [address] 06/18/2025 1:30 PM EST Appointment Echo Lab [address] [place] [address] Franklin Jain MD [address] [place] [address], [address] [address] 07/27/2025 8:00 AM EST Office Visit [facility] [address] [place] [address] 3rd Floor, [address] [place] [address] Franklin Jain MD [address] [place] [address], [address] [address] 07/27/2025 8:30 AM EST Appointment Non-Invasive Cardiology [address] [place] [address] Eyad Khoury MD [address] [place] [address] [email or web address] documented as of this encounter Visit Diagnoses Not on filedocumented in this encounter Care Teams Digital Librarian Relationship Specialty Start Date End Date Kiesha Macedo MD [address] [place] [address] PCP - General Internal Medicine 10/07/18 Samira Stroud MD [address] [place] [address] [email or web address] Cardiology 07/13/20 documented as of this encounter Additional Source Comments The information contained in this document represents components of the legal health record. It is not the complete legal health record.[facility]
--- OUTSIDE RECORDS SUMMARY | 2025-04-06 17:45 | XMS_ITS | Encounter Summary ---
Author Organization [facility] Address [address] [place] [address] [place] [address] Phone Care Team Providers Care Flatwork Assembler Name Role Phone Kiesha Macedo MD Primary Care Provider [phone] Samira Stroud MD Unavailable [phone] Encounter Details Date Type Department Care Team (Late st Contact Info) Description 11/14/2020 Procedure Pass Non-Invasive Cardiology [address] [place] [address] Social History Tobacco Use Types Packs/Day Years [...] Description 10/14/2024 Procedure Pass Non-Invasive Cardiology [address] [place] [address] 10/28/2024 Procedure Pass Non-Invasive Cardiology [address] [place] [address] 10/28/2024 Procedure Pass Non-Invasive Cardiology [address] [place] [address] 02/16/2025 Procedure Pass Echo Lab [address] [place] [address] 06/18/2025 1:30 PM EST Appointment Echo Lab [address] [place] [address] Franklin Jain MD [address] [place] [address], [address] [address] 07/27/2025 8:00 AM EST Office Visit [facility] [address] [place] [address] 3rd Floor, [address] [place] [address] Franklin Jain MD [address] [place] [address], [address] [address] 07/27/2025 8:30 AM EST Appointment Non-Invasive Cardiology [address] [place] [address] Eyad Khoury MD [address] [place] [address] [email or web address] documented as of this encounter Visit Diagnoses Not on filedocumented in this encounter Care Teams Flatwork Assembler Relationship Specialty Start Date End Date Kiesha Macedo MD [address] [place] [address] PCP - General Internal Medicine 10/07/18 Samira Stroud MD [address] [place] [address] [email or web address] Cardiology 07/13/20 documented as of this encounter Additional Source Comments The information contained in this document represents components of the legal health record. It is not the complete legal health record.[facility]
--- OUTSIDE RECORDS SUMMARY | 2025-04-06 17:45 | XMS_ITS | Patient Health Record ---
Author Organization [facility] Address [address] [place] [address] Care Team Providers Care Hammerer Tab Name Role Phone Kiesha Macedo MD Primary Care Provider Tae Fish [phone] Allergies Allergen (clinical drug ingredient) Drug/Non Drug Allergy documented on EMR Reaction Allergy Type Onset Date Status Vicodin Unknown Drug Allergy Active Reason For Referral No Information Medications Medication SIG (Take, Route, Frequency, Duration) Notes Start Date End Date Status Furosemide 20 MG 1 tablet Orally Once a day; Duration: 30 day(s) Active amLODIPine Besylate 5 MG 1 tablet Orally Once a day Active Atorvastatin Calcium 80 MG 1 tablet Oral ly Once a day; Duration: 30 day(s) Active ProAir HFA 108 (90 Base) MCG/ACT 2 puffs as needed Inhalation every 6 hrs Active Omeprazole 20 MG 1 capsule Orally Onc e a day Active Vitamin D3 Ultra Potency 06703 UNIT 1 tablet Orally once a week Active Potassium Citrate ER 10 MEQ (1080 MG) 1 tablet with meals Orally Twice a day Active Aspir-Low 81 MG 1 tablet Orally Once a day; Duration: 30 day(s) Active Allopurinol 100 MG as directed Orally o nce a day Active Atenolol 50 MG 1 tablet Orally Once a day; Duration: 30 day(s) Active Losartan Potassium 100 MG 1 tablet Orall y Once a day; Duration: 30 day(s) Active Immunizations Vaccine Route Administration [...] Problem Status W/U Status Risk Notes Problem Screening for malignant neoplasm of colon (843807682) Encounter for screening for malignant neoplasm of colon (Z12.11) Active confirmed Problem Pandey's esophagus (260947913) 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
--- OUTSIDE RECORDS SUMMARY | 2025-04-06 17:45 | XMS_ITS | Encounter Summary ---
Author Organization [address] [facility] Address [address] [place] [address] Care Team Providers Care Position Classification Specialist Name Role Phone Sal Cardoso Primary Care Provider Encounter Details Date Type Department Care Team (Late st Contact Info) Description 12/16/2024 Lab Requisition [facility] - Main Lab [address] [facility] [place] [address] Sal Cardoso PA [address] [facility] 1 [place] [address] Encounter for other general examination Social History [...] AM EDT) WBC 6.7 4.8 - 10.8 K/[facility] LAB HEMETOLOGY METHOD 12/16/2024 11:02 AM [facility] RBC 4.00 3.80 - 4.80 M/mcL LAB HEMETOLOGY METHOD 12/16/2024 11:02 AM [facility] Hemoglobin 11.4(L) 11.5 - 16.0 g/dL LAB HEMETOLOGY METHOD 12/16/2024 11:02 AM [facility] Hematocrit 36.6 35.0 - 47.0 % LAB HEMETOLOGY METHOD 12/16/2024 11:02 AM [facility] MCV 91.5 79.0 - 98.0 FL LAB HEMETOLOGY METHOD 12/16/2024 11:02 AM [facility] MCH 28.5 27.0 - 32.0 pcg LAB HEMETOLOGY METHOD 12/16/2024 11:02 AM [facility] MCHC 31.1(L) 32.0 - 37.0 g/dL LAB HEMETOLOGY METHOD 12/16/2024 11:02 AM [facility] RDW 18.2(H) 11.0 - 15.0 % LAB HEMETOLOGY METHOD 12/16/2024 11:02 AM [facility] Platelets 151 130 - 400 K/mcL LAB HEMETOLOGY METHOD 12/16/2024 11:02 AM [facility] MPV 11.9(H) 7.0 - 11.0 FL LAB HEMETOLOGY METHOD 12/16/2024 11:02 AM [facility] NRBC 0.0 <1.0 % LAB HEMETOLOGY METHOD 12/16/2024 11:02 AM [facility] NRBC Absolute 0.00 <0.10 K/mcL LAB HEMETOLOGY METHOD 12/16/2024 11:02 AM [facility] Neutrophils Relative 79.9 % LAB HEMETOLOGY METHOD 12/16/2024 11:02 AM [facility] Lymphocytes Relative 12.3 % LAB HEMETOLOGY METHOD 12/16/2024 11:02 AM [facility] Monocytes Relative 6.0 % LAB HEMETOLOGY METHOD 12/16/2024 11:02 AM [facility] Eosinophils Relative 1.2 % LAB HEMETOLOGY METHOD 12/16/2024 11:02 AM [facility] Basophils Relative 0.3 % LAB HEMETOLOGY METHOD 12/16/2024 11:02 AM [facility] Immature Granulocytes Relative 0.3 % LAB HEMETOLOGY METHOD 12/16/2024 11:02 AM [facility] Neutrophils Absolute 5.33 1.50 - 7.00 K/mcL LAB HEMETOLOGY METHOD 12/16/2024 11:02 AM [facility] Lymphocytes Absolute 0.82(L) 1.00 - 5.00 K/mcL LAB HEMETOLOGY METHOD 12/16/2024 11:02 AM [facility] Monocytes Absolute 0.40 0.20 - 1.00 K/mcL LAB HEMETOLOGY METHOD 12/16/2024 11:02 AM [facility] Eosinophils Absolute 0.08 0.00 - 0.50 K/mcL LAB HEMETOLOGY METHOD 12/16/2024 11:02 AM [facility] Basophils Absolute 0.02 0.00 - 0.20 K/mcL LAB HEMETOLOGY METHOD 12/16/2024 11:02 AM [facility] Immature Granulocytes Absolute 0.02 0.00 - 0.03 K/mcL LAB HEMETOLOGY METHOD 12/16/2024 11:02 AM [facility] Blood Venous blood specimen / Unknown Venipuncture / Unknown 12/16/2024 5:53 AM EDT 12/16/2024 10:18 AM EDT Sal KENNEDY LAB BLOOD ORDERABLES Final R esult [facility] [address] [place] [address], [place] [phone] * Magnesium (12/16/2024 5:53 AM EDT) [facility] Magnesium 2.1 1.9 - 2.6 mg/dL LAB CHEMISTRY METHOD 12/16/2024 11:34 AM EDT [facility] Blood Venous blood specimen / Unknown Venipuncture / Unknown 12/16/2024 5:53 AM EDT 12/16/2024 10:18 AM EDT Sal KENNEDY LAB BLOOD ORDERABLES Final R esult Performing Organization Address City/[facility]/ZIP Co de Phone Number [facility] [address] [place] [address], [place] [phone] * (ABNORMAL) Comprehensive metabolic panel (12/16/2024 5:53 AM EDT) [facility] Sodium 143 133 - 145 mmol/L LAB CHEMISTRY METHOD 12/16/2024 11:51 AM EDT [facility] Potassium 4.2 3.5 - 5.5 mmol/L LAB CHEMISTRY METHOD 12/16/2024 11:51 AM EDT [facility] Chloride 103 96 - 110 mmol/L LAB CHEMISTRY METHOD 12/16/2024 11:51 AM EDT [facility] CO2 33(H) 21 - 32 mmol/L LAB CHEMISTRY METHOD 12/16/2024 11:51 AM EDT [facility] Anion Gap 7 3 - 11 LAB CHEMISTRY METHOD 12/16/2024 11:51 AM EDT [facility] Glucose 94 70 - 100 mg/dL LAB CHEMISTRY METHOD 12/16/2024 11:51 AM [facility] BUN 33(H) 5 - 25 mg/dL LAB CHEMISTRY METHOD 12/16/2024 11:51 AM [facility] Creatinine 1.02 0.50 - 1.10 mg/dL LAB CHEMISTRY METHOD 12/16/2024 11:51 AM [facility] LAB eGFR 55(L) >=60 mL/min/1. 73m2 LAB CHEMISTRY METHOD 12/16/2024 11:51 AM [facility] LAB Comment:Calculation based on the Chronic Kidney Disease Epidemiology Collaboration (CKD-EPI) equation refit without adjustment for race. BUN/Creatinine Ratio 32.4 LAB CHEMISTRY METHOD 12/16/2024 11:51 AM [facility] Calcium 8.5 8.5 - 10.5 mg/dL LAB CHEMISTRY METHOD 12/16/2024 11:51 AM [facility] AST (SGOT) 32 10 - 42 unit/L LAB CHEMISTRY METHOD 12/16/2024 11:51 AM [facility] ALT (SGPT) 28 10 - 60 unit/L LAB CHEMISTRY METHOD 12/16/2024 11:51 AM [facility] Alkaline Phosphatase 122(H) 42 - 121 unit/L LAB CHEMISTRY METHOD 12/16/2024 11:51 AM [facility] Total Protein 4.8(L) 6.0 - 8.0 g/dL LAB CHEMISTRY METHOD 12/16/2024 11:51 AM [facility] Albumin 2.4(L) 3.2 - 5.0 g/dL LAB CHEMISTRY METHOD 12/16/2024 11:51 AM [facility] Total Bilirubin 0.8 0.0 - 1.4 mg/dL LAB CHEMISTRY METHOD 12/16/2024 11:51 AM [facility] Blood Venous blood specimen / Unknown Venipuncture / Unknown 12/16/2024 5:53 AM EDT 12/16/2024 10:18 AM EDT Sal KENNEDY LAB BLOOD ORDERABLES Final R esult [facility] ([facility]) [facility] [address] [place] [address], documented in this encounter Visit Diagnoses Diagnosis Encounter for other general examination documented in this encounter Care Teams Position Classification Specialist Relationship Specialty Start Date End Date Sal Cardoso PA [address] [phone] PCP - General 12/16/24 documented as of this encounter
--- OUTSIDE RECORDS SUMMARY | 2025-04-06 17:45 | XMS_ITS | Encounter Summary ---
Author Organization [facility] Address [address] [place] [address] [place] [address] Phone Care Team Providers Care Pad Extraction Tender Name Role Phone Kiesha Macedo MD Primary Care Provider [phone] Samira Stroud MD Unavailable [phone] Encounter Details Date Type Department Care Team (Late st Contact Info) Description 05/31/2020 Procedure Pass [facility], Ct Scan - [facility] [address] [place] [address] Social History Tobacco Use Types Packs/Day Years [...] Description 10/14/2024 Procedure Pass Non-Invasive Cardiology [address] [place] [address] 10/28/2024 Procedure Pass Non-Invasive Cardiology [address] [place] [address] 10/28/2024 Procedure Pass Non-Invasive Cardiology [address] [place] [address] 02/16/2025 Procedure Pass Echo [facility] [address] [place] [address] 06/18/2025 1:30 PM EST Appointment Echo Lab [address] [place] [address] Franklin Jain MD [address] [place] [address], [address] [address] 07/27/2025 8:00 AM EST Office Visit [facility] [address] [place] [address] 3rd Floor, [address] [place] [address] Franklin Jain MD [address] [place] [address], [address] [address] 07/27/2025 8:30 AM EST Appointment Non-Invasive Cardiology [address] [place] [address] Eyad Khoury MD [address] [place] [address] [email or web address] documented as of this encounter Visit Diagnoses Not on filedocumented in this encounter Care Teams Pad Extraction Tender Relationship Specialty Start Date End Date Kiesha Macedo MD [address] [place] [address] PCP - General Internal Medicine 10/07/18 Samira Stroud MD [address] [place] [address] [email or web address] Cardiology 07/13/20 documented as of this encounter Additional Source Comments The information contained in this document represents components of the legal health record. It is not the complete legal health record.[facility]
--- OUTSIDE RECORDS SUMMARY | 2025-04-06 17:45 | XMS_ITS | Encounter Summary ---
Author Organization [facility] Address [address] [place] [address] [place] [address] Phone Care Team Providers Care Narrow Gauge Operator Name Role Phone Kiesha Macedo MD Primary Care Provider [phone] Samira Stroud MD Unavailable [phone] Encounter Details Date Type Department Care Team (Late st Contact Info) Description 06/29/2020 Procedure Pass [facility] Echocardiography [address] [place] [address] Social History Tobacco Use Types Packs/Day Years [...] 06/30/2020 7:00 AM Grazyna Vicente, JENNIFER * [place] Suicide Severity Rating Scale (Screener/Recent Self-Report) Question [...] Info) Description 10/14/2024 Procedure Pass Non-Invasive Cardiology [address] [place] [address] [place] [address] 10/28/2024 Procedure Pass Non-Invasive Cardiology [address] [place] [address] [place] [address] 10/28/2024 Procedure Pass Non-Invasive Cardiology [address] [place] [address] [place] [address] 02/16/2025 Procedure Pass Echo Lab [address] [place] [address] 06/18/2025 1:30 PM EST Appointment Echo Lab [address] [place] [address] Franklin Jain MD [address] [place] [address], [address] [address] [email or web address] 07/27/2025 8:00 AM EST Office Visit [facility] [address] [place] [address] 3rd Floor, [address] [place] [address] Franklin Jain MD [address] [place] [address], [address] [address] 07/27/2025 8:30 AM EST Appointment Non-Invasive Cardiology [address] [place] [address] [place] [address] Eyad Khoury MD [address] [place] [address] documented as of this encounter Visit Diagnoses Not on filedocumented in this encounter Care Teams Narrow Gauge Operator Relationship Specialty Start Date End Date Kiesha Macedo MD [facility] [address] PCP - General Internal Medicine 10/07/18 Samira Stroud MD [address] [place] [address] [email or web address] 07/13/20 documented as of this encounter Additional Source Comments The information contained in this document represents components of the legal health record. It is not the complete legal health record.[facility]
--- OUTSIDE RECORDS SUMMARY | 2025-04-06 17:45 | XMS_ITS | Encounter Summary ---
Author Organization [facility] [facility] Address [address] [place] [address] Care Team Providers Care Clinical Engineering Director Name Role Phone Sal Cardoso Primary Care Provider Encounter Details Date Type Department Care Team (Late st Contact Info) Description 12/18/2024 Lab Requisition [facility] - Main Lab [address] [place] [address] Malik Malave MD [address] [place] [address] Encounter for other general examination Social History [...] Procedure Name Priority Date/Time Associated Diagnosis Comments BASIC METABOLIC PANEL Routine 12/18/2024 5:53 AM EDT Encounter for other general examination documented in this encounter Results * (ABNORMAL) Basic metabolic panel (12/18/2024 5:53 AM EDT) Sodium 144 133 - 145 mmol/L LAB CHEMISTRY METHOD 12/18/2024 12:15 PM EDT [facility] Potassium 3.7 3.5 - 5.5 mmol/L LAB CHEMISTRY METHOD 12/18/2024 12:15 PM EDT [facility] Chloride 104 96 - 110 mmol/L LAB CHEMISTRY METHOD 12/18/2024 12:15 PM EDT [facility] CO2 35(H) 21 - 32 mmol/L LAB CHEMISTRY METHOD 12/18/2024 12:15 PM EDT [facility] Anion Gap 5 3 - 11 LAB CHEMISTRY METHOD 12/18/2024 12:15 PM EDT [facility] Glucose 85 70 - 100 mg/dL LAB CHEMISTRY METHOD 12/18/2024 12:15 PM [facility] BUN 28(H) 5 - 25 mg/dL LAB CHEMISTRY METHOD 12/18/2024 12:15 PM EDT [facility] Creatinine 0.96 0.50 - 1.10 mg/dL LAB CHEMISTRY METHOD 12/18/2024 12:15 PM EDT [facility] eGFR 59(L) >=60 mL/min/1. 73m2 LAB CHEMISTRY METHOD 12/18/2024 12:15 PM EDT [facility] Comment:Calculation based on the Chronic Kidney Disease Epidemiology Collaboration (CKD-EPI) equation refit without adjustment for race. BUN/Creatinine Ratio 29.2 LAB CHEMISTRY METHOD 12/18/2024 12:15 PM T [facility] Calcium 8.5 8.5 - 10.5 mg/dL LAB CHEMISTRY METHOD 12/18/2024 12:15 PM [facility] Blood Venous blood specimen / Unknown Venipuncture / Unknown 12/18/2024 5:53 AM EDT 12/18/2024 10:10 AM EDT us Malik Malave MD LAB BLOOD ORDERABLES Final Resu lt [facility] [address] [place] [address], documented in this encounter Visit Diagnoses Diagnosis Encounter for other general examination documented in this encounter Care Teams Clinical Engineering Director Relationship Specialty Start Date End Date Sal Cardoso PA [address] [place] [phone] PCP - General 12/16/24 documented as of this encounter
--- OUTSIDE RECORDS SUMMARY | 2025-04-06 17:45 | XMS_ITS | Data Portability ---
Author Organization [facility], Main Office Address [address] [facility], [facility] [address] [place] [address] Care Team Providers Care Miller Wood Flour Name Role Phone LANDON FREY 1ST FLOOR OTHER Assessment Encounter Date Assessment Date Assessment LastModified by Organization Details LastModified Time 01/17/2018 01/17/2018 01/13/18 WBC 4.3, Hgb 11.8, Hct 35.1, Na 141, K 3.6, BUN 12, Environmental Compliance Inspector 0.62 [email or web address] Not available 01/17/2018 11:17:28 01/22/2018 01/22/201801/13: na 141, k 3.6, bun 12, creat 0.62, wbc 4.3, hgb 11.8, hct 35.1 glord Not available 01/22/2018 15:24:19 01/27/2018 01/27/2018 01/27/18 WBC 5.4, Hgb 13.7, Hct 41.3, Na 142, K 3.9, BUN 12, Environmental Compliance Inspector 0.59 [email or web address] Not available 01/27/2018 17:03:47 02/05/2018 02/05/201802/03: na 143, k 3.7, bun 15, creat 0.66, wbc 4.2, hgb 11.5, hct 35.2 glord Not available 02/05/2018 14:14:26 02/07/2018 02/07/2018 02/03/18 WBC 4.2, Hgb 11.5, Hct 35.2, Na 143, K 3.7, BUN 15, Environmental Compliance Inspector 0.66 [email or web address] Not available 02/07/2018 16:44:48 Plan [...] Address Organization Details Recorded Time Pulmonary hypertension 31924835 Active [address], [address], [place], [address], [employer] 16:34:20 Obstructive sleep apnea syndrome 78244464 Active [address], [address], [place], [address], [employer] 16:34:24 Mitral valve regurgitation 67282443 Active [address], [address], [place], [address], [employer] 16:34:38 Aortic valve regurgitation 02685126 Active [address], [address], [place], [address], [employer] 16:34:44 Fracture of shaft of femur 90117140 Active [address], [address], [place], [address], [employer] 16:35:57 Essential hypertension 55282824 Active [address], [address], [place], [address], [employer] 16:36:05 Chronic disease of respiratory system 86785659 Active [address], [address], [place], [address], [employer] 16:36:13 Gout 37893650 Active [address], [address], [place], [address], [employer] 16:44:07 Tgjvl-wm-rbncs ic respiratory failure 96098424 Active 2017 Sho Houser MD [address] [facility], [address], [place], [address], [employer] 20:08:21 Fracture of shaft of femur 26290718 Active 2017 Sho Houser MD [address] [facility], [address], [place], [address], [employer] 20:11:04 Solitary nodule of lung 864831060 Active 2017 Sho Houser MD [address] [facility], [address], [place], [address], [employer] 20:17:21 Mixed hyperlipidemia 614531790 Active 2017 Sho Houser MD [address] [place] [address], [facility] [address], [place], [address], [employer] 20:19:54 Problem Notes None recorded. Medical Equipment None Reported. Allergies Allergen ID Allergen Name Allergen Category Reaction Reaction Severity Criticality Documentation Date Start Date Code Code System Note Provider Name and Address Organization Details Recorded Time 28009 acetamino phen / hydrocodo ne medicatio n Not available Not available Not available 12/18/2017 [address] [address], [facility] [address], [place], [address], [employer] 16:34:03 Vitals Date Recorded Body height Body temperature Heart rate Respiratory rate Oxygen saturation Oxygen saturation in Arterial blood by Pulse oximetry Systolic And Diastolic Provider Name and Address Organization Details Last Updated DateTime 8 163.07 cm 97.4 [degF] 80 /min 18 /min 93 % 93 % 138/62 mm[Hg] VANESSA HARDEN [address] [facility], [address], [place], [address], [employer] 11:11:37 Date Recorded Body height Heart rate Respiratory rate Provider Name and Address Organization Details Last Updated DateTime 01/22/2018 163.07 cm 72 /min 16 /min LIGIA [address], [address], [place], [address], [employer] 01/22/2018 15:29:09 Date Recorded Body height Body temperature Heart rate Respiratory rate Oxygen saturation Oxygen saturation in Arterial blood by Pulse oximetry Systolic And Diastolic Provider Name and Address Organization Details Last Updated DateTime 8 163.07 cm 97.2 [degF] 68 /min 18 /min 94 % 94 % 106/49 mm[Hg] JOSUE FERRERAVANESSA SCHULTZ [address] [facility], [address], [place], [address], [employer] 8 16:58:27 Date Recorded Body height Heart rate Respiratory rate Body temperature Provider Name and Address Organization Details Last Updated DateTime 02/05/2018 163.07 cm 70 /min 16 /min 97.1 [degF] LIGIA LEMUS [address] [facility], [address], [place], [address] , [employer] 02/05/2018 14:25:46 Date Recorded Body height Heart rate Respiratory rate Body temperature Oxygen saturation Oxygen saturation in Arterial blood by Pulse oximetry Systolic And Diastolic Provider Name and Address Organization Details Last Updated DateTime 8 163.07 cm 61 /min 18 /min 98.1 [degF] 98 % 98 % 116/56 mm[Hg] VANESSA HARDEN [address] [facility], [address], [place], [address], [employer] 8 16:42:44 Social History Question Answer Notes LastModified by Organizat ion Details LastModified Time Tobacco Smoking Status Unknown If Ever Smoked Not Available [facility] 03/29/2020 03:13:20 Do You Have An Advance Directive? Yes Full Code [id number] Information not available 03/29/2020 What Was The Date Of Your Most Recent Tobacco Screening? 02/07/2018 [id number] Information not available 03/29/2020 Sex: Unknown Functional Status None recorded. Mental Status None recorded. Family History Nothing Reported. Medical History No medical history recorded. Gynecological HistoryNo gynecological history recorded. Obstetrics History GPAL:G 0 P 0 0 0 0 Past Encounters Encounter ID Performer Location Encounter Start Date Encounter Closed Date Diagnosis/Indication Diagnosis SNOMED-CT Code Diagnosis ICD10 Code Diagnosis IMO Codes Diagnosis Note [id number] LIGIA LEMUS LANDON SHANTE [address] [facility] [place] [address] 12/18/2017 16:36:21 12/23/2017 16:12:52 Pulmonary hypertension 87127467 I27.0 lasix 40 mg dailyfollo w up with cards in 1-2 weeksObtai n follow up chest xray in 1 week to see if pulm edema has resolvedco nt. 02 PRN to keep sats above 92% Fracture o f shaft of femur 81271506 S72.324D Tylenol 650 mg TID scheduledP ercocet PRN for severe painPT/OT eval and treatbrace on right knee at all times Essential hypertension 57134468 I10 Continue atenolol 50 mg dailylosar infante 100 mg dailyamlod ipine 5 mg dailynitro 0.4 sl prnmonitor bps daily Gout 72709641 M10.061 allopurino l 100 mg dailyasa 81 mg daily [id number] Sho Houser MD [facility] [address] [facility] [address] [place] [address] 12/19/2017 17:49:22 12/24/2017 08:23:57 Pulmonary hypertension 01169439 I27.0 As above, also on lasix 40 mg qd with KCl 10 meq BID. Will f/u with cardio as planned, may need MVR, as this is thought part of the reason for her pulmonary HTN. Will repeat CXR next week to reassess pulmonary edema.Cont . 02 as above. Fracture o f shaft of femur 89751491 S72.324D Will need PT/OT for strengthen ing [...] times. F/U ortho as planned. Essential hypertension 78810012 I10 Good control on atenolol 50 mg qd, losartan 100 mg qd, amlodipine 5 mg qd and nitro 0.4 sl prnMonitor BP and labs. Gout 13415817 M10.061 Continue allopurino l 100 mg qd. Monitor for sxs. Solitary n odule of lung 152605447 R91.1 Will f/u with pulmonary for assessment . Acute-on-c hronic respiratory failure 05083231 J96.21 J96.12 On O2 at baseline, with acute worsening inpt. likely secondary to pulmonary HTN (see below). Continue O2 by NC, titrated to keep sats above between 90-94% so as not to induce hypercapni a. Will f/u with pulmonary and cardio. Obstructiv e sleep apnea syndrome 53526016 G47.33 Continue CPAP as usual. Mixed hyperlipidemia 267 452562 E78.2 Continue atorvastat in 80 mg qd and ASA 81 mg qd. Monitor labs as outpt. [id number] VANESSA HARDEN [facility] SHANTE [address] [place] [address] 12/27/2017 17:27:17 01/02/2018 15:17:31 Chronic disease of respiratory system 85951442 J98.9 she has not needed her oxygen at this time but knows she can use it if neededshe is seeing pulmonolog y on saturday for a follow up Obstructiv e sleep apnea syndrome 73575191 G47.33 she feels her cpap is not working rightwill order oxygen 2 liters via nc at night for nowmonitor Fracture o f shaft of femur 38731309 S72.8X1S continues with lidoderm patches on right legsees ortho next weekawaiti ng decision about next stepcontin ues non weight bearing status [id number] Sal Esparza MD [address] [address] 01/15/2018 10:09:17 01/28/2018 13:33:13 Fracture of shaft of femur 48514182 S72.391D inform ortho of eventxray at facility to reeval [id number] VANESSA HARDEN [address] [address] 01/17/2018 11:10:56 01/28/2018 13:53:07 Essential hypertension 96324896 I10 norvasc 5 mg qdatenolol 50 mg qdlasix 40 mg qdlosartan potassium 100 mg qdmonitor b/p and labs Chronic di sease of respiratory system 20837460 J98.9 she follows with pulmonolog yshe uses oxygen as neededmoni tor respirator y status Fracture o f shaft of femur 48957399 S72.8X1S continues with lidoderm patches on right leg non weight bearing status follows with orthofelt she hurt it worsex-ray was negative and said there was the healing fracturewa nts CT results from ortho but doesn't see them til 30 thmonitor [id number] LIGIA FREY [address] [facility] [place] [address] 01/22/2018 15:15:11 01/28/2018 14:03:23 Essential hypertension 92809659 I10 norvasc 5 mg qdatenolol 50 mg qdlasix 40 mg qdlosartan potassium 100 mg qdmonitor b/p and labs Chronic di sease of respiratory system 00770646 J98.9 Follows with pulmonolog yCPAP at bedtime while sleeping she uses oxygen as neededmoni tor respirator y status Fracture o f shaft of femur 17716282 S72.8X1S continues with lidoderm patches on right leg non weight bearing status, toe touch only follow up with ortho this saturday to determine weight bearing statusmoni tor for pain controltyl enol 650 mg q 8 hours PRN [id number] VANESSA HARDEN [address] [place] [address] 01/27/2018 16:57:24 02/12/2018 08:38:08 Fracture of shaft of femur 53079587 S72.8X1S continues with lidoderm patches on right legfollows with orthotoe touch allowedhom e visit this weekcontin ues with therapy Essential hypertension 17459001 I10 norvasc 5 mg qdatenolol 50 mg qdlasix 40 mg qdlosartan potassium 100 mg qdmonitor b/p and labs Mixed hyperlipidemia 267 725562 E78.2 carries diagnosisn ot on medication monitor labs [id number] LIGIA LEMUS [place] [address] [facility] [place] [address] 02/05/2018 14:10:52 02/12/2018 11:56:12 Fracture of shaft of femur 41321619 S72.8X1S continues with lidoderm patches on right legfollows with ortho in 4 weekstoe touch allowed only at this timecontin ues with therapyHom e eval went well, question possible discharge by the end of this week D/C colace 100 mg daily due to loose stools Essential hypertension 37488305 I10 norvasc 5 mg qdatenolol 50 mg qdlasix 40 mg qdlosartan potassium 100 mg qdmonitor b/p and labs [id number] VANESSA HARDEN [address] [place] [address] rd [place] [address] 02/07/2018 16:41:46 02/12/2018 12:03:29 Fracture of shaft of femur 42943270 S72.8X1S continues with lidoderm patches on right legfollows with orthotoe touch allowedtyl enol 650 mg q 8 hrspercoce t q 4 hrs prnfollow up with ortho Essential hypertension 68198952 I10 ASA 81 mgnorvasc 5 mg qdatenolol 50 mg qdlasix 40 mg qdpotassiu m 10 meq qdlosartan potassium 100 mg qdfollow up with PCP Mixed hyperlipidemia 267 401652 E78.2 atorvastat in 80 mg qd follow up with PCP Obstructiv e sleep apnea syndrome 54472711 G47.33 continue home CPAPfollow up with PCP Gout 22668841 M10.49 allopurino l 100 mg qdfollow up with PCP Chronic di sease of respiratory system 73596805 J98.9 she follows with pulmonolog yshe uses [...] 2 [place] Ramona Pinon [id number] Ramona Pinon 02/05/2018 1 [place] Ramona Escalona Kathrin [id number] Ramona Pinon Notes Date Note Type Note [...] working with therapy. VANESSA HARDEN [address] [facility], [address], [place], [address], [facility] [employer] 01/17/2018 11:55:52 01/22/2018 text/html A 77 year old female being seen today for acute rounding visit. Pt has follow up with ortho this saturday to determine if she can move to weight bearing status. Otherwise she has no new health concerns at this time. LIGIA LEMUS [address] [place] [address], [address], [place], [address], [facility] [employer] 01/22/2018 15:31:01 01/27/2018 text/html A 77 year old female being seen for a acute rounding visit. She has been working with therapy and will have a home visit soon. She is toe touch at this time. She sees ortho in 5 weeks. Staff notes no concerns at this time. VANESSA HARDEN [address] [facility], [address], [place], [address], [employer] 01/27/2018 17:14:53 02/05/2018 text/html A 77 year [...] except for loose stool often. LIGIA LEMUS [address] [place] [address], [address], [place], [address], [facility] [employer] 02/05/2018 14:25:49 02/07/2018 text/html A 77 year [...] and pulmonary hypertension. VANESSA HARDEN [address] [facility], [address], [place], [address], [facility] 02/07/2018 16:59:57 OBGyn Episode No OBEpisode recorded.
--- OUTSIDE RECORDS SUMMARY | 2025-04-06 17:45 | XMS_ITS | Encounter Summary ---
Author Organization [facility] Address [address] [place] [address] [place] [address] Phone Care Team Providers Care Flying I Instructor Name Role Phone Kiesha Macedo MD Primary Care Provider Samira Stroud MD Unavailable [phone] Encounter Details Date Type Department Care Team (Late st Contact Info) Description 07/10/2021 Procedure Pass Echo [facility] [place] [place] [address] Social History Tobacco Use Types Packs/Day Years [...] Non-Invasive Cardiology [address] [place] [address] 10/28/2024 Procedure Pass Non-Invasive Cardiology [address] [place] [address] 10/28/2024 Procedure Pass Non-Invasive Cardiology [address] [place] [address] 02/16/2025 Procedure Pass Echo Lab [place] [address] [place] [address] 06/18/2025 1:30 PM EST Appointment Echo Lab [address] [place] [address] Franklin Jain MD [address] [place] [address], [address] [address] 07/27/2025 8:00 AM EST Office Visit [facility] [address] [place] [address] 3rd Floor, [address] [place] [address] Franklin Jain MD [address] [place] [address], [address] [address] 07/27/2025 8:30 AM EST Appointment Non-Invasive Cardiology [address] [place] [address] Eyad Khoury MD [address] [place] [phone] [email or web address] documented as of this encounter Visit Diagnoses Not on filedocumented in this encounter Care Teams Flying I Instructor Relationship Specialty Start Date End Date Kiesha Macedo MD [address] [place] [address] PCP - General Internal Medicine 10/07/18 Samira Stroud MD [address] [place] [address] [email or web address] Cardiology 07/13/20 documented as of this encounter Additional Source Comments The information contained in this document represents components of the legal health record. It is not the complete legal health record.[facility]
--- OUTSIDE RECORDS SUMMARY | 2025-04-06 17:45 | XMS_ITS | Clinical Summary ---
Author Organization [address] [facility] Address [address] [place] [address] Phone Care Team Providers Care Grain Elevator Agent Name Role Phone Sal Cardoso Primary Care Provider Social History Tobacco Use Types Packs/Day Years Used Date Smoking Tobacco: Never Assessed Comments Unknown Sex and Gender Information Value Date Recorded Sex Assigned at Not on file Legal Sex Female 6:06 PM EST Gender Identity Not on file Sexual Orientation Not on file Plan of Treatment Health Maintenance Due Date Last Done Comments DTaP,Tdap,and Td Vaccines (1 - Tdap) 1959 RSV Immunization Adult Patients (1 - 1-dose 75+ series) 2017 Pneumococcal Vaccine: 50+ Years (2 of 2 - PCV) 03/06/2019 03/06/2018, 04/29/2017 Depression Screening 06/03/2024 Cholesterol Screening (Lipid Panel) 12/16/2024 Falls Risk Assessment 12/16/2024 Medicare Annual Wellness Visit 12/16/2024 Osteoporosis Screening (Bone Density Screening) 12/16/2024 Social Influencers of Health Screening 12/16/2024 COVID-19 Vaccine ( season) 2025 09/24/2020, 09/03/2020 Influenza Vaccine (#1) 2025 , 04/22/2019, 03/06/2018, Additional history exists Hypertension/CHF/CAD Annual BMP Blood Test 12/24/2025 12/24/2024, 12/21/2024, 12/18/2024, Additional history exists Zoster Vaccines Completed 08/20/2018, 1009/2017, 02/02/2016 HIB Vaccines Aged Out No longer eligi ble based on patient's age to complete this topic HPV Vaccines Aged Out No longer eligi ble based on patient's age to complete this topic Hepatitis A Vaccines Aged Out No long er eligible based on patient's age to complete this topic Hepatitis B Vaccines Aged Out No long er eligible based on patient's age to complete this topic IPV Vaccines Aged Out No longer eligi ble based on patient's age to complete this topic MMR Vaccines Aged Out No longer eligi ble based on patient's age to complete this topic Meningococcal ACWY Vaccine Aged Out N o longer eligible based on patient's age to complete this topic Meningococcal B Vaccine Aged Out No l onger eligible based on patient's age to complete this topic RSV Immunization Patients Under 20 months Aged Out No longer eligible based on patient's age to complete this topic Varicella Vaccines Aged Out No longer eligible based on patient's age to complete this topic Procedures Procedure Name Priority Date/Time Associated Diagnosis Comments BASIC METABOLIC PANEL Routine 12/24/2024 5:36 AM EDT Encounter for other general examination from Last 3 Months or Most Recently Relevant to Health Maintenance Results * (ABNORMAL) Basic metabolic panel (12/24/2024 5:36 AM EDT) Sodium 141 133 - 145 mmol/L LAB CHEMISTRY METHOD 12/24/2024 9:19 AM [facility] Potassium 4.3 3.5 - 5.5 mmol/L LAB CHEMISTRY METHOD 12/24/2024 9:19 AM [facility] Comment:Hemolysis present Chloride 102 96 - 110 mmol/L LAB CHEMISTRY METHOD 12/24/2024 9:19 AM [facility] CO2 35(H) 21 - 32 mmol/L LAB CHEMISTRY METHOD 12/24/2024 9:19 AM [facility] Anion Gap 4 3 - 11 LAB CHEMISTRY METHOD 12/24/2024 9:19 AM [facility] Glucose 98 70 - 100 mg/dL LAB CHEMISTRY METHOD 12/24/2024 9:19 AM [facility] BUN 27(H) 5 - 25 mg/dL LAB CHEMISTRY METHOD 12/24/2024 9:19 AM [facility] Creatinine 1.34(H) 0.50 - 1.10 mg/dL LAB CHEMISTRY METHOD 12/24/2024 9:19 AM EDT [facility] eGFR 40(L) >=60 mL/min/1. 73m2 LAB CHEMISTRY METHOD 12/24/2024 9:19 AM EDT [facility] Comment:Calculation based on the Chronic Kidney Disease Epidemiology Collaboration (CKD-EPI) equation refit without adjustment for race. BUN/Creatinine Ratio 20.1 LAB CHEMISTRY METHOD 12/24/2024 9:19 AM EDT [facility] Calcium 8.4(L) 8.5 - 10.5 mg/dL LAB CHEMISTRY METHOD 12/24/2024 9:19 AM EDT [facility] Blood Venous blood specimen / Unknown Venipuncture / Unknown 12/24/2024 5:36 AM EDT 12/24/2024 8:57 AM EDT us Malik Malave MD LAB BLOOD ORDERABLES Final Resu lt [facility] [address] [place] [address], from Last 3 Months or Most Recently Relevant to Health Maintenance Insurance MEDICARE Care Teams Grain Elevator Agent Relationship Specialty Start Date End Date Sal Cardoso PA [address] [place] [phone] [facility] - General 12/16/24
--- OUTSIDE RECORDS SUMMARY | 2025-04-06 17:45 | XMS_ITS | Encounter Summary ---
Author Organization [facility] Address [address] [place] [address] [place] [address] Phone Care Team Providers Care Director Work Name Role Phone Kiesha Macedo MD Primary Care Provider [phone] Samira Stroud MD Unavailable [phone] Encounter Details Date Type Department Care Team (Late st Contact Info) Description 04/21/2020 Procedure Pass [facility] [address] [place] [address] Social History Tobacco Use Types Packs/Day Years [...] Description 10/14/2024 Procedure Pass Non-Invasive Cardiology [address] [place] [address] 10/28/2024 Procedure Pass Non-Invasive Cardiology [address] [place] [address] 10/28/2024 Procedure Pass Non-Invasive Cardiology [address] [place] [address] 02/16/2025 Procedure Pass Echo [facility] [place] [address] [place] [address] 06/18/2025 1:30 PM EST Appointment Echo Lab [address] [place] [address] Franklin Jain MD [address] [place] [address], [address] [address] [email or web address] 07/27/2025 8:00 AM EST Office Visit [facility] [address] [place] [address] 3rd Floor, [address] [place] [address] Franklin Jain MD [address] [place] [address], [address] [address] 07/27/2025 8:30 AM EST Appointment Non-Invasive Cardiology [address] [place] [address] [place] [address] Eyad Khoury MD [address] [place] [id number] [email or web address] documented as of this encounter Visit Diagnoses Not on filedocumented in this encounter Care Teams Director Work Relationship Specialty Start Date End Date Kiesha Macedo MD [address] [place] [address] PCP - General Internal Medicine 10/07/18 Samira Stroud MD [address] [place] [address] [email or web address] Cardiology 07/13/20 documented as of this encounter Additional Source Comments The information contained in this document represents components of the legal health record. It is not the complete legal health record.[facility]
--- OUTSIDE RECORDS SUMMARY | 2025-04-06 17:45 | XMS_ITS | Encounter Summary ---
Author Organization [facility] Address [address] [place] [address] [place] [address] Phone Care Team Providers Care Maintenance Worker House Trailer Name Role Phone Kiesha Macedo MD Primary Care Provider [phone] Samira Stroud MD Unavailable [phone] Encounter Details Date Type Department Care Team (Late st Contact Info) Description 10/09/2021 Procedure Pass Non-Invasive Cardiology [address] [place] [address] Social History Tobacco Use Types Packs/Day Years [...] Description 10/14/2024 Procedure Pass Non-Invasive Cardiology [address] [place] [address] 10/28/2024 Procedure Pass Non-Invasive Cardiology [address] [place] [address] 10/28/2024 Procedure Pass Non-Invasive Cardiology [address] [place] [address] 02/16/2025 Procedure Pass Echo Lab [address] [place] [address] 06/18/2025 1:30 PM EST Appointment Echo Lab [address] [place] [address] Franklin Jain MD [address] [place] [address], [address] [address] 07/27/2025 8:00 AM EST Office Visit [facility] [address] [place] [address] 3rd Floor, [address] [place] [address] Franklin Jain MD [address] [place] [address], [address] [address] 07/27/2025 8:30 AM EST Appointment Non-Invasive Cardiology [address] [place] [address] Eyad Khoury MD [address] [place] [address] [email or web address] documented as of this encounter Visit Diagnoses Not on filedocumented in this encounter Care Teams Maintenance Worker House Trailer Relationship Specialty Start Date End Date Kiesha Macedo MD [address] [place] [address] PCP - General Internal Medicine 10/07/18 Samira Stroud MD [address] [place] [address] [email or web address] Cardiology 07/13/20 documented as of this encounter Additional Source Comments The information contained in this document represents components of the legal health record. It is not the complete legal health record.[facility]
--- OUTSIDE RECORDS SUMMARY | 2025-04-06 17:45 | XMS_ITS | Encounter Summary ---
Author Organization [facility] Address [address] [place] [address] [place] [address] Phone Care Team Providers Care Clinical Psychiatrist Name Role Phone Kiesha Macedo MD Primary Care Provider [phone] Samira Stroud MD Unavailable [phone] Encounter Details Date Type Department Care Team (Late st Contact Info) Description 06/02/2024 Procedure Pass Echo Lab [place] [address] [place] [id number] Social History Tobacco Use Types Packs/Day Years [...] Description 10/14/2024 Procedure Pass Non-Invasive Cardiology [address] [place] [address] 10/28/2024 Procedure Pass Non-Invasive Cardiology [address] [place] [address] 10/28/2024 Procedure Pass Non-Invasive Cardiology [address] [place] [address] 02/16/2025 Procedure Pass Echo Lab [address] [place] [address] 06/18/2025 1:30 PM EST Appointment Echo Lab [address] [place] [address] Franklin Jain MD [address] [place] [address], [address] [place] [address] 07/27/2025 8:00 AM EST Office Visit [facility] [address] [place] [address] 3rd Floor, [address] [place] [address] Franklin Jain MD [address] [place] [address], [address] [address] 07/27/2025 8:30 AM EST Appointment Non-Invasive Cardiology [address] [place] [address] [place] [address] Eyad Khoury MD [address] [place] [address] documented as of this encounter Visit Diagnoses Not on filedocumented in this encounter Care Teams Clinical Psychiatrist Relationship Specialty Start Date End Date Kiesha Macedo MD [facility] [place], [place] PCP - General Internal Medicine 10/07/18 Samira Stroud MD [facility] [place], [place] [email or web address] Cardiology 07/13/20 documented as of this encounter Additional Source Comments The information contained in this document represents components of the legal health record. It is not the complete legal health record.[facility]
--- OUTSIDE RECORDS SUMMARY | 2025-04-06 17:45 | XMS_ITS | Encounter Summary ---
Author Organization [facility] Address [address] [place] [address] [place] [address] Phone Care Team Providers Care Phlebotomy Director Name Role Phone Kiesha Macedo MD Primary Care Provider [phone] Samira Stroud MD Unavailable [phone] Encounter Details Date Type Department Care Team (Late st Contact Info) Description 05/20/2023 Procedure Pass Non-Invasive Cardiology [address] [place] [id number] Social History Tobacco Use Types Packs/Day Years [...] Description 10/14/2024 Procedure Pass Non-Invasive Cardiology [address] [place] [address] 10/28/2024 Procedure Pass Non-Invasive Cardiology [address] [place] [address] 10/28/2024 Procedure Pass Non-Invasive Cardiology [address] [place] [address] 02/16/2025 Procedure Pass Echo Lab [address] [place] [address] 06/18/2025 1:30 PM EST Appointment Echo Lab [address] [place] [address] Franklin Jain MD [address] [place] [address], [address] [place] [address] [email or web address] 07/27/2025 8:00 AM EST Office Visit [facility] [address] [place] [address] 3rd Floor, [address] [place] [address] Franklin Jain MD [address] [place] [address], [address] [address] [email or web address] 07/27/2025 8:30 AM EST Appointment Non-Invasive Cardiology [address] [place] [address] [place] [address] Eyad Khoury MD [address] [place] [address] documented as of this encounter Visit Diagnoses Not on filedocumented in this encounter Care Teams Phlebotomy Director Relationship Specialty Start Date End Date Kiesha Macedo MD [facility] [place], [place] PCP - General Internal Medicine 10/07/18 Samira Stroud MD [facility] [place], [place] [email or web address] Cardiology 07/13/20 documented as of this encounter Additional Source Comments The information contained in this document represents components of the legal health record. It is not the complete legal health record.[facility]
--- OUTSIDE RECORDS SUMMARY | 2025-04-06 17:46 | XMS_ITS | Encounter Summary ---
Author Organization [facility] Address [address] [place] [address] [place] [address] Phone Care Team Providers Care Clinical Documentation Clerk Name Role Phone Kiesha Macedo MD Primary Care Provider [phone] Samira Stroud MD Unavailable [phone] Encounter Details Date Type Department Care Team (Late st Contact Info) Description 09/14/2024 Procedure Pass Non-Invasive Cardiology [address] [place] [address] Social History Tobacco Use Types Packs/Day Years [...] with a working camera? Not on file Intimate Partner Violence Answer Date R ecorded Are you denied basic needs s uch as food, clothing, or medical care? No 09/10/2024 In the past 12 months have y ou been in a relationship with a person who hurts, threatens, or tries to control you? No 09/10/2024 Are you denied basic needs s uch as food, clothing, or medical care? No 09/10/2024 In the past 12 months have y ou been in a relationship with a person who hurts, threatens, or tries to control you? No 09/10/2024 Comments No Sex and Gender Information Value Date Recorded Sex Assigned at Not on file Legal Sex Female 10:11 PM EDT Gender Identity Not on file Sexual Orientation Not on file documented as of this encounter Plan of Treatment Upcoming Encounters Date Type Department Care Team (Late st Contact Info) Description 10/14/2024 Procedure Pass Non-Invasive Cardiology [address] [place] [address] 10/28/2024 Procedure Pass Non-Invasive Cardiology [address] [place] [address] 10/28/2024 Procedure Pass Non-Invasive Cardiology [address] [place] [address] [place] [address] 02/16/2025 Procedure Pass Echo Lab [address] [place] [address] 06/18/2025 1:30 PM EST Appointment Echo Lab [address] [place] [address] Franklin Jain MD [address] [place] [address], [address] [address] 07/27/2025 8:00 AM EST Office Visit [facility] [address] [place] [address] 3rd Floor, [address] [place] [address] Franklin Jain MD [address] [place] [address], [address] [address] 07/27/2025 8:30 AM EST Appointment Non-Invasive Cardiology [address] [place] [address] [place] [address] Eyad Khoury MD [address] [place] [address] documented as of this encounter Visit Diagnoses Not on filedocumented in this encounter Care Teams Clinical Documentation Clerk Relationship Specialty Start Date End Date Kiesha Macedo MD [address] [place], [place] PCP - General Internal Medicine 10/07/18 Samira Stroud MD [address] [place], [place] [email or web address] Cardiology 07/13/20 documented as of this encounter Additional Source Comments The information contained in this document represents components of the legal health record. It is not the complete legal health record.[facility]
--- OUTSIDE RECORDS SUMMARY | 2025-04-06 17:46 | XMS_ITS | Encounter Summary ---
Author Organization [facility] Address [address] [place] [address] [place] [address] Phone Care Team Providers Care Wool Batting Worker Name Role Phone Kiesha Macedo MD Primary Care Provider [phone] Samira Stroud MD Unavailable [phone] Encounter Details Date Type Department Care Team (Late st Contact Info) Description 08/21/2024 Procedure Pass Echo Lab [place] [address] [place] [id number] Social History Tobacco Use Types Packs/Day Years [...] Procedure Pass Non-Invasive Cardiology [address] [place] [address] 10/28/2024 Procedure Pass Non-Invasive Cardiology [address] [place] [address] 10/28/2024 Procedure Pass Non-Invasive Cardiology [address] [place] [address] 02/16/2025 Procedure Pass Echo Lab [address] [place] [address] 06/18/2025 1:30 PM EST Appointment Echo Lab [address] [place] [address] Franklin Jain MD [address] [place] [address], [address] [place] [address] [email or web address] 07/27/2025 8:00 AM EST Office Visit [facility] [address] [place] [address] 3rd Floor, [address] [place] [address] Franklin Jain MD [address] [place] [address], [address] [address] [email or web address] 07/27/2025 8:30 AM EST Appointment Non-Invasive Cardiology [address] [place] [address] [place] [address] Eyad Khoury MD [address] [place] [address] documented as of this encounter Visit Diagnoses Not on filedocumented in this encounter Care Teams Wool Batting Worker Relationship Specialty Start Date End Date Kiesha Macedo MD [facility] [place], [place] PCP - General Internal Medicine 10/07/18 Samira Stroud MD [facility] [place] [email or web address] Cardiology 07/13/20 documented as of this encounter Additional Source Comments The information contained in this document represents components of the legal health record. It is not the complete legal health record.[facility]
--- OUTSIDE RECORDS SUMMARY | 2025-04-06 17:46 | XMS_ITS | Encounter Summary ---
Author Organization [facility] Address [address] [place] [address] [place] [address] Phone Care Team Providers Care Technologies Division Chair Name Role Phone Kiesha Macedo MD Primary Care Provider [phone] Samira Stroud MD Unavailable [phone] Encounter Details Date Type Department Care Team (Late st Contact Info) Description 03/21/2021 Ancillary Orders Non-Invasive Cardiology [address] [place] [address] Jennifer Voss MD [address] [place] [phone] [email or web address] Complete heart block Social History Tobacco Use [...] Description 10/14/2024 Procedure Pass Non-Invasive Cardiology [address] [place] [address] 10/28/2024 Procedure Pass Non-Invasive Cardiology [address] [place] [address] 10/28/2024 Procedure Pass Non-Invasive Cardiology [address] [place] [address] [place] [address] 02/16/2025 Procedure Pass Echo Lab [address] [place] [address] 06/18/2025 1:30 PM EST Appointment Echo Lab [address] [place] [address] Franklin Jain MD [address] [place] [address], [address] [place] [address] 07/27/2025 8:00 AM EST Office Visit [facility] [address] [place] [address] 3rd Floor, [address] [place] [address] Franklin Jain MD [address] [place] [address], [address] [place] [address] [email or web address] 07/27/2025 8:30 AM EST Appointment Non-Invasive Cardiology [address] [place] [address] [place] [address] Eyad Khoury MD [address] [place] [address] [email or web address] documented as of this encounter Results * DEVICE CHECK: PPM IN-HOME INTERROGATION (03/21/2021 9:06 AM EDT) Narrative Jennifer Voss MD - 03/24/2021 11:04 AM EDT Reason for appointment: Remote pacemaker interrogation HPI: Routine 3 month remote pacemaker interrogation. No device related complaints. Indication for device: CHB. Examination: Device type: Pacemaker Manager Licensing: [employer] Mode: VVI LRL/UPL: 60/- bpm High V rates: 0 Thresholds, impedances, and sensing stable. AF/AT: Patient is currently taking coumadin daily. Ventricular pacin.7% Battery: 14.5 yrs Additional comments: Device functioning appropriately. Normal device function. Patient to follow-up for continued monitoring every 3 months. Report prepared by Brent Shepherd RN us Jennifer Voss MD [facility] ORDER CECE Final Result documented in this encounter Visit Diagnoses Diagnosis Complete heart block Atrioventricular block, complete Complete heart block Atrioventricular block, complete documented in this encounter Care Teams Technologies Division Chair Relationship Specialty Start Date End Date Kiesha Macedo MD [address] [place] [address] PCP - General Internal Medicine 10/07/18 Samira Stroud MD [address] [place] [address] [email or web address] Cardiology 07/13/20 documented as of this encounter Additional Source Comments The information contained in this document represents components of the legal health record. It is not the complete legal health record.[facility]
--- OUTSIDE RECORDS SUMMARY | 2025-04-06 17:46 | XMS_ITS | Encounter Summary ---
Author Organization [facility] Address [address] [place] [address] Phone Care Team Providers Care Hot Wort Settler Name Role Phone Kiesha Macedo MD Primary Care Provider Samira Stroud MD Unavailable [phone] Encounter Details Date Type Department Care Team (Late st Contact Info) Description 11/14/2020 Ancillary Orders [facility] [address] 3rd Floor, [address] [place], [place] [id number] Jennifer Voss MD [address] [place] [phone] [email or web address] Social History Tobacco Use Types Packs/Day Years [...] Description 10/14/2024 Procedure Pass Non-Invasive Cardiology [address] [place] [address] 10/28/2024 Procedure Pass Non-Invasive Cardiology [address] [place] [address] 10/28/2024 Procedure Pass Non-Invasive Cardiology [address] [place] [address] 02/16/2025 Procedure Pass Echo Lab [address] [place] [address] 06/18/2025 1:30 PM EST Appointment Echo Lab [address] [place] [address] Franklin Jain MD [address] [place] [address], [address] [place] [address] [email or web address] 07/27/2025 8:00 AM EST Office Visit [facility] [address] [place] [address] 3rd Floor, [address] [place] [address] Franklin Jain MD [address] [place] [address] 07/27/2025 8:30 AM EST Appointment Non-Invasive Cardiology [address] [place] [address] [place] [address] Eyad Khoury MD [address] [place] [address] documented as of this encounter Visit Diagnoses Not on filedocumented in this encounter Care Teams Hot Wort Settler Relationship Specialty Start Date End Date Kiesha Macedo MD [facility] [place], [place] PCP - General Internal Medicine 10/07/18 Samira Stroud MD [facility] [place] [email or web address] Cardiology 07/13/20 documented as of this encounter Additional Source Comments The information contained in this document represents components of the legal health record. It is not the complete legal health record.[facility]
--- OUTSIDE RECORDS SUMMARY | 2025-04-06 17:46 | XMS_ITS | Encounter Summary ---
Author Organization [facility] Address [address] [place] [address] Phone Care Team Providers Care Engraver Hand Hard Metals Name Role Phone Kiesha Macedo MD Primary Care Provider [phone] Samira Stroud MD Unavailable [phone] Encounter Details Date Type Department Care Team (Late st Contact Info) Description 10/14/2024 Procedure Pass Non-Invasive Cardiology [address] [place] [address] Social History Tobacco Use Types Packs/Day Years Used Date Smoking Tobacco: Former Cigarettes Smokeless Tobacco: Never Comments:quit age 33 Alcohol Use Standard Drinks/Week Comments No 0 (1 standard drink = 0.6 oz pur e alcohol) Education Answer Date Recorded Are you interested in more education? Not on stephie e 09/28/2022 Are you concerned about learning? Not on file 09/28/2022 No 09/28/2022 No 09/28/2022 Food Answer Date Recorded Within the past 6 months we worried whether our food would run out before we got money to buy more. Never True 10/07/2024 Within the past 6 months the food we bought just didn't last and we didn't have enough money to get more. Never True Residential Stability Answer Date Recor ded What is your housing situation today? I have rebeka sing 10/07/2024 How many times have you move d in the past 12 months? Zero (I did not move) 10/07/2024 Paying for Meds Answer Date Recorded Do you have trouble paying for medicines? No 10/07/2024 Paying Utility Bills Answer Date Record ed Do you have trouble paying your heating or elect ricity bill? No 10/07/2024 Transportation Answer Date Recorded Has the lack of transportati on kept you from medical appointments or from getting medications? No 10/07/2024 Digital Access Answer Date Recorded No 10/07/2024 Yes 10/07/2024 Do you have reliable internet access at home? Ye s 10/07/2024 Do you have a device (e.g., phone, tablet, computer) with a working camera? Yes 10/07/2024 Intimate Partner Violence Answer Date R ecorded Are you denied basic needs s uch as food, clothing, or medical care? No 10/07/2024 In the past 12 months have y ou been in a relationship with a person who hurts, threatens, or tries to control you? No 10/07/2024 Are you denied basic needs s uch as food, clothing, or medical care? No 10/07/2024 In the past 12 months have y ou been in a relationship with a person who hurts, threatens, or tries to control you? No 10/07/2024 Comments No Sex and Gender Information Value Date Recorded Sex Assigned at Not on file Legal Sex Female 10:11 PM EDT Gender Identity Not on file Sexual Orientation Not on file documented as of this encounter Plan of Treatment Upcoming Encounters Date Type Department Care Team (Late st Contact Info) Description 10/14/2024 Procedure Pass Non-Invasive Cardiology [address] [place] [address] 10/28/2024 Procedure Pass Non-Invasive Cardiology [address] [place] [address] 10/28/2024 Procedure Pass Non-Invasive Cardiology [address] [place] [address] 02/16/2025 Procedure Pass Echo Lab [place] [address] 06/18/2025 1:30 PM EST Appointment Echo Lab [address] [place] [address] Franklin Jain MD [address] [place] [address], [address] [place] [address] 07/27/2025 8:00 AM EST Office Visit [facility] [address] 3rd Floor, [address] [place] [address] Franklin Jain MD [address] [facility], [address] [place] [address] 07/27/2025 8:30 AM EST Appointment Non-Invasive Cardiology [address] [place] [address] Eyad Khoury MD [address] [place] [address] [email or web address] documented as of this encounter Visit Diagnoses Not on filedocumented in this encounter Care Teams Engraver Hand Hard Metals Relationship Specialty Start Date End Date Kiesha Macedo MD [address] [place] [address] PCP - General Internal Medicine 10/07/18 Samira Stroud MD [address] [place] [address] [email or web address] Cardiology 07/13/20 documented as of this encounter Additional Source Comments The information contained in this document represents components of the legal health record. It is not the complete legal health record.[facility]
--- OUTSIDE RECORDS SUMMARY | 2025-04-06 17:46 | XMS_ITS | Encounter Summary ---
Author Organization [facility] Address [address] [place] [address] [place] [address] Phone Care Team Providers Care Assistant Women'S Tennis Coach Name Role Phone Kiesha Macedo MD Primary Care Provider [phone] Samira Stroud MD Unavailable [phone] Encounter Details Date Type Department Care Team (Late st Contact Info) Description 07/04/2020 Procedure Pass [facility] Electrophysiology Lab [address] [place] [address] Social History Tobacco Use Types Packs/Day Years [...] Description 10/14/2024 Procedure Pass Non-Invasive Cardiology [address] [place] [address] 10/28/2024 Procedure Pass Non-Invasive Cardiology [address] [place] [address] 10/28/2024 Procedure Pass Non-Invasive Cardiology [address] [place] [address] 02/16/2025 Procedure Pass Echo [facility] [address] [place] [address] 06/18/2025 1:30 PM EST Appointment Echo Lab [address] [place] [address] Franklin Jain MD [address] [place] [address], [address] [address] 07/27/2025 8:00 AM EST Office Visit [facility] [address] [place] [address] 3rd Floor, [address] [place] [address] Franklin Jain MD [address] [place] [address], [address] [address] 07/27/2025 8:30 AM EST Appointment Non-Invasive Cardiology [address] [place] [address] [place] [address] Eyad Khoury MD [address] [place] [address] [email or web address] documented as of this encounter Visit Diagnoses Not on filedocumented in this encounter Care Teams Assistant Women'S Tennis Coach Relationship Specialty Start Date End Date Kiesha Macedo MD [address] [place] [address] PCP - General Internal Medicine 10/07/18 Samira Stroud MD [address] [place] [address] [email or web address] Cardiology 07/13/20 documented as of this encounter Additional Source Comments The information contained in this document represents components of the legal health record. It is not the complete legal health record.[facility]
--- OUTSIDE RECORDS SUMMARY | 2025-04-06 17:46 | XMS_ITS | Encounter Summary ---
Author Organization [facility] Address [address] [place] [address] [place] [address] Phone Care Team Providers Care Lift Truck Mechanic Name Role Phone Kiesha Macedo MD Primary Care Provider [phone] Samira Stroud MD Unavailable [phone] Encounter Details Date Type Department Care Team (Late st Contact Info) Description 11/14/2020 Procedure Pass Non-Invasive Cardiology [address] [place] [address] Social History Tobacco Use Types Packs/Day Years [...] Description 10/14/2024 Procedure Pass Non-Invasive Cardiology [address] [place] [address] 10/28/2024 Procedure Pass Non-Invasive Cardiology [address] [place] [address] 10/28/2024 Procedure Pass Non-Invasive Cardiology [address] [place] [address] 02/16/2025 Procedure Pass Echo Lab [address] [place] [address] 06/18/2025 1:30 PM EST Appointment Echo Lab [address] [place] [address] Franklin Jain MD [address] [place] [address], [address] [address] 07/27/2025 8:00 AM EST Office Visit [facility] [address] [place] [address] 3rd Floor, [address] [place] [address] Franklin Jain MD [address] [place] [address], [address] [address] 07/27/2025 8:30 AM EST Appointment Non-Invasive Cardiology [address] [place] [address] Eyad Khoury MD [address] [place] [address] [email or web address] documented as of this encounter Visit Diagnoses Not on filedocumented in this encounter Care Teams Lift Truck Mechanic Relationship Specialty Start Date End Date Kiesha Macedo MD [address] [place] [address] PCP - General Internal Medicine 10/07/18 Samira Stroud MD [address] [place] [address] [email or web address] Cardiology 07/13/20 documented as of this encounter Additional Source Comments The information contained in this document represents components of the legal health record. It is not the complete legal health record.[facility]
--- OUTSIDE RECORDS SUMMARY | 2025-04-06 17:46 | XMS_ITS | Encounter Summary ---
Author Organization [facility] Address [address] [place] [address] [place] [address] Phone Care Team Providers Care Lute Packer Or Applier Name Role Phone Kiesha Macedo MD Primary Care Provider [phone] Samira Stroud MD Unavailable [phone] Encounter Details Date Type Department Care Team (Late st Contact Info) Description 03/21/2021 Procedure Pass Non-Invasive Cardiology [address] [place] [address] Social History Tobacco Use Types Packs/Day Years [...] Description 10/14/2024 Procedure Pass Non-Invasive Cardiology [address] [place] [address] 10/28/2024 Procedure Pass Non-Invasive Cardiology [address] [place] [address] 10/28/2024 Procedure Pass Non-Invasive Cardiology [address] [place] [address] 02/16/2025 Procedure Pass Echo Lab [address] [place] [address] 06/18/2025 1:30 PM EST Appointment Echo Lab [address] [place] [address] Franklin Jain MD [address] [place] [address], [address] [address] 07/27/2025 8:00 AM EST Office Visit [facility] [address] [place] [address] 3rd Floor, [address] [place] [address] Franklin Jain MD [address] [place] [address], [address] [address] 07/27/2025 8:30 AM EST Appointment Non-Invasive Cardiology [address] [place] [address] Eyad Khoury MD [address] [place] [address] [email or web address] documented as of this encounter Visit Diagnoses Not on filedocumented in this encounter Care Teams Lute Packer Or Applier Relationship Specialty Start Date End Date Kiesha Macedo MD [address] [place] [address] PCP - General Internal Medicine 10/07/18 Samira Stroud MD [address] [place] [address] [email or web address] Cardiology 07/13/20 documented as of this encounter Additional Source Comments The information contained in this document represents components of the legal health record. It is not the complete legal health record.[facility]
--- OUTSIDE RECORDS SUMMARY | 2025-04-06 17:46 | XMS_ITS | Encounter Summary ---
Author Organization [facility] Address [address] [place] [address] [place] [address] Phone Care Team Providers Care Project Financial Analyst Name Role Phone Kiesha Macedo MD Primary Care Provider [phone] Samira Stroud MD Unavailable [phone] Encounter Details Date Type Department Care Team (Late st Contact Info) Description 12/12/2020 Procedure Pass [facility] [address] [place] [address] Social History Tobacco Use Types Packs/Day Years [...] Non-Invasive Cardiology [address] [place] [address] 10/28/2024 Procedure Pass Non-Invasive Cardiology [address] [place] [address] 10/28/2024 Procedure Pass Non-Invasive Cardiology [address] [place] [address] 02/16/2025 Procedure Pass Echo [facility] [address] [place] [address] 06/18/2025 1:30 PM EST Appointment Echo Lab [address] [place] [address] Franklin Jain MD [address] [place] [address], [address] [address] 07/27/2025 8:00 AM EST Office Visit [facility] [address] [place] [address] 3rd Floor, [address] [place] [address] Franklin Jain MD [address] [place] [address], [address] [address] 07/27/2025 8:30 AM EST Appointment Non-Invasive Cardiology [address] [place] [address] Eyad Khoury MD [address] [place] [address] [email or web address] documented as of this encounter Visit Diagnoses Not on filedocumented in this encounter Care Teams Project Financial Analyst Relationship Specialty Start Date End Date Kiesha Macedo MD [address] [place] [address] PCP - General Internal Medicine 10/07/18 Samira Stroud MD [address] [place] [address] [email or web address] Cardiology 07/13/20 documented as of this encounter Additional Source Comments The information contained in this document represents components of the legal health record. It is not the complete legal health record.[facility]
--- OUTSIDE RECORDS SUMMARY | 2025-04-06 17:46 | XMS_ITS | Encounter Summary ---
Author Organization [facility] Address [address] [place] [address] [place] [address] Phone Care Team Providers Care Seam Checker Name Role Phone Kiesha Macedo MD Primary Care Provider [phone] Samira Stroud MD Unavailable [phone] Encounter Details Date Type Department Care Team (Late st Contact Info) Description 07/02/2020 Procedure Pass [facility] Echocardiography [address] [place] [address] Social History Tobacco Use Types Packs/Day Years [...] Description 10/14/2024 Procedure Pass Non-Invasive Cardiology [address] [place] [address] 10/28/2024 Procedure Pass Non-Invasive Cardiology [address] [place] [address] 10/28/2024 Procedure Pass Non-Invasive Cardiology [address] [place] [address] 02/16/2025 Procedure Pass Echo [facility] [place] [address] [place] [address] 06/18/2025 1:30 PM EST Appointment Echo Lab [address] [place] [address] Franklin Jain MD [address] [place] [address], [address] [address] 07/27/2025 8:00 AM EST Office Visit [facility] [address] [place] [address] 3rd Floor, [address] [place] [address] Franklin Jain MD [address] [place] [address], [address] [address] 07/27/2025 8:30 AM EST Appointment Non-Invasive Cardiology [address] [place] [address] [place] [address] Eyad Khoury MD [address] [place] [address] [email or web address] documented as of this encounter Visit Diagnoses Not on filedocumented in this encounter Care Teams Seam Checker Relationship Specialty Start Date End Date Kiesha Macedo MD [address] [place] [address] PCP - General Internal Medicine 10/07/18 Samira Stroud MD [address] [place] [address] [email or web address] Cardiology 07/13/20 documented as of this encounter Additional Source Comments The information contained in this document represents components of the legal health record. It is not the complete legal health record.[facility]
--- OUTSIDE RECORDS SUMMARY | 2025-04-06 17:46 | XMS_ITS | Encounter Summary ---
Author Organization [facility] Address [address] [place] [address] Phone Care Team Providers Care Bioinformatics Technician Name Role Phone Kiesha Maceod MD Primary Care Provider [phone] Samira Stroud MD Unavailable [phone] Encounter Details Date Type Department Care Team (Late st Contact Info) Description 11/14/2020 Ancillary Orders Non-Invasive Cardiology [address] [place] [address] Jennifer Voss MD [address] [place] [phone] [email or web address] Complete heart block Social History Tobacco Use [...] Description 10/14/2024 Procedure Pass Non-Invasive Cardiology [address] [place] [address] 10/28/2024 Procedure Pass Non-Invasive Cardiology [address] [place] [address] 10/28/2024 Procedure Pass Non-Invasive Cardiology [address] [place] [address] 02/16/2025 Procedure Pass Echo Lab [address] [place] [address] 06/18/2025 1:30 PM EST Appointment Echo Lab [address] [place] [address] Franklin Jain MD [address] [place] [address], [address] [place] [address] 07/27/2025 8:00 AM EST Office Visit [facility] [address] [place] [address] 3rd Floor, [address] [place] [address] Franklin Jain MD [address] [place] [address], [address] [address] 07/27/2025 8:30 AM EST Appointment Non-Invasive Cardiology [address] [place] [address] [place] [address] Eyad Khoury MD [address] [place] [address] documented as of this encounter Visit Diagnoses Diagnosis Complete heart block Atrioventricular block, complete documented in this encounter Care Teams Bioinformatics Technician Relationship Specialty Start Date End Date Kiesha Macedo MD [facility] [place], [place] PCP - General Internal Medicine 10/07/18 Samira Stroud MD [facility] [place], [place] [email or web address] Cardiology 07/13/20 documented as of this encounter Additional Source Comments The information contained in this document represents components of the legal health record. It is not the complete legal health record.[facility]
--- OUTSIDE RECORDS SUMMARY | 2025-04-06 17:46 | XMS_ITS | Encounter Summary ---
Author Organization [facility] Address [address] [facility] [address] [place] [address] Phone Care Team Providers Care Technology Officer Name Role Phone Kiesha Macedo MD Primary Care Provider Samira Stroud MD Unavailable [phone] Encounter Details Date Type Department Care Team (Late st Contact Info) Description 10/07/2024 Procedure Pass [facility] [address] [place] [address] Social History Tobacco Use Types Packs/Day Years [...] Date of Assessment Author No Risk Indicated 10/07/2024 1:44 PM EDT Katerina Foster RN * [place] Suicide Severity Rating Scale (Screener/Recent Self-Report) Question Answer Date of Assessment Author 1. Wish to be (Past 1 Month) No 025 1:44 PM EDT Katerina Foster RN 2. Non-Specific Active Suici ester Thoughts (Past 1 Month) No 10/07/2024 1:44 PM EDT Ling Foster RN 6. Suicidal Behavior (Lifetime) No 1:44 PM EDT Katerina Foster RN documented as of this encounter Plan of Treatment Upcoming Encounters Date Type Department Care Team (Late st Contact Info) Description 10/14/2024 Procedure Pass Non-Invasive Cardiology [address] [place] [address] 10/28/2024 Procedure Pass Non-Invasive Cardiology [address] [place] [address] 10/28/2024 Procedure Pass Non-Invasive Cardiology [address] [place] [address] 02/16/2025 Procedure Pass Echo Lab [address] [place] [address] 06/18/2025 1:30 PM EST Appointment Echo Lab [address] [place] [address] Franklin Jain MD [address] [place] [address], [address] [place] [address] [email or web address] 07/27/2025 8:00 AM EST Office Visit [facility] [address] [place] [address] 3rd Floor, [address] [place] [address] Franklin Jain MD [address] [place] [address], [address] [address] [email or web address] 07/27/2025 8:30 AM EST Appointment Non-Invasive Cardiology [address] [place] [address] [place] [address] Eyad Khoury MD [address] [place] [address] documented as of this encounter Visit Diagnoses Not on filedocumented in this encounter Care Teams Technology Officer Relationship Specialty Start Date End Date Kiesha Macedo MD [facility] [place], [place] PCP - General Internal Medicine 10/07/18 Samira Stroud MD [facility] [place], [place] [email or web address] Cardiology 07/13/20 documented as of this encounter Additional Source Comments The information contained in this document represents components of the legal health record. It is not the complete legal health record.[facility]
--- OUTSIDE RECORDS SUMMARY | 2025-04-06 17:46 | XMS_ITS | Encounter Summary ---
Author Organization [facility] Address [address] [place] [address] Phone Care Team Providers Care Real Estate Site Analyst Name Role Phone Kiesha Macedo MD Primary Care Provider Samira Stroud MD Unavailable [phone] Encounter Details Date Type Department Care Team (Late st Contact Info) Description 03/21/2021 Ancillary Orders [facility] [address] 3rd Floor, [address] [place], [place] [address] Jennifer Voss MD [address] [place] [phone] [email or web address] Social History Tobacco Use Types Packs/Day Years [...] Description 10/14/2024 Procedure Pass Non-Invasive Cardiology [address] [place] [address] 10/28/2024 Procedure Pass Non-Invasive Cardiology [address] [place] [address] 10/28/2024 Procedure Pass Non-Invasive Cardiology [address] [place] [address] 02/16/2025 Procedure Pass Echo Lab [address] [place] [address] 06/18/2025 1:30 PM EST Appointment Echo Lab [address] [place] [address] Franklin Jain MD [address] [place] [address], [address] [place] [address] 07/27/2025 8:00 AM EST Office Visit [facility] [address] [place] [address] 3rd Floor, [address] [place] [address] Franklin Jain MD [address] [place] [address] 07/27/2025 8:30 AM EST Appointment Non-Invasive Cardiology [address] [place] [address] [place] [address] Eyad Khoury MD [address] [place] [address] documented as of this encounter Visit Diagnoses Not on filedocumented in this encounter Care Teams Real Estate Site Analyst Relationship Specialty Start Date End Date Kiesha Macedo MD [facility] [place], [place] PCP - General Internal Medicine 10/07/18 Samira Stroud MD [facility] [place], [place] [email or web address] Cardiology 07/13/20 documented as of this encounter Additional Source Comments The information contained in this document represents components of the legal health record. It is not the complete legal health record.[facility]
--- OUTSIDE RECORDS SUMMARY | 2025-04-06 17:46 | XMS_ITS | Encounter Summary ---
Author Organization [facility] Address [address] [place] [address] [place] [address] Phone Care Team Providers Care Wort Extractor Name Role Phone Kiesha Macedo MD Primary Care Provider [phone] Samira Stroud MD Unavailable [phone] Encounter Details Date Type Department Care Team (Late st Contact Info) Description 08/10/2024 Procedure Pass [facility] [address] [place] [address] Social History Tobacco Use Types Packs/Day Years [...] Encounters Date Type Department Care Team (Late Contact Info) Description 10/14/2024 Procedure Pass Non-Invasive Cardiology [address] [facility] [address] 10/28/2024 Procedure Pass Non-Invasive Cardiology [address] [place] [address] 10/28/2024 Procedure Pass Non-Invasive Cardiology [address] [place] [address] 02/16/2025 Procedure Pass Echo Lab [address] [place] [address] 06/18/2025 1:30 PM EST Appointment Echo Lab [address] [place] [address] Franklin Jain MD [address] [place] [address], [address] [place] [address] 07/27/2025 8:00 AM EST Office Visit [facility] [address] [place] [address] 3rd Floor, [address] [place] [address] Franklin Jain MD [address] [place] [address], [address] [address] 07/27/2025 8:30 AM EST Appointment Non-Invasive Cardiology [address] [place] [address] [place] [address] Eyad Khoury MD [address] [place] [address] documented as of this encounter Visit Diagnoses Not on filedocumented in this encounter Care Teams Wort Extractor Relationship Specialty Start Date End Date Kiesha Macedo MD [facility] [place] [address] PCP - General Internal Medicine 10/07/18 Samira Stroud MD [facility] [place] [address] Cardiology 07/13/20 documented as of this encounter Additional Source Comments The information contained in this document represents components of the legal health record. It is not the complete legal health record.[facility]
--- OUTSIDE RECORDS SUMMARY | 2025-04-06 17:46 | XMS_ITS | Encounter Summary ---
Author Organization [facility] Address [address] [place] [address] [place] [address] Phone Care Team Providers Care Animal Sitter Name Role Phone Kiesha Macedo MD Primary Care Provider [phone] Samira Stroud MD Unavailable [phone] Encounter Details Date Type Department Care Team (Late st Contact Info) Description 07/03/2020 Procedure Pass [facility] Electrophysiology Lab [address] [place] [address] Social History Tobacco Use Types Packs/Day Years [...] Description 10/14/2024 Procedure Pass Non-Invasive Cardiology [address] [place] [address] 10/28/2024 Procedure Pass Non-Invasive Cardiology [address] [place] [address] 10/28/2024 Procedure Pass Non-Invasive Cardiology [address] [place] [address] 02/16/2025 Procedure Pass Echo Lab [address] [place] [address] 06/18/2025 1:30 PM EST Appointment Echo Lab [address] [place] [address] Franklin Jain MD [address] [place] [address], [address] [address] 07/27/2025 8:00 AM EST Office Visit [facility] [address] [place] [address] 3rd Floor, [address] [place] [address] Franklin Jain MD [address] [place] [address], [address] [address] 07/27/2025 8:30 AM EST Appointment Non-Invasive Cardiology [address] [place] [place] [address] [place] [address] Eyad Khoury MD [address] [place] [address] [email or web address] documented as of this encounter Visit Diagnoses Not on filedocumented in this encounter Care Teams Animal Sitter Relationship Specialty Start Date End Date Kiesha Macedo MD [address] [place] [address] PCP - General Internal Medicine 10/07/18 Samira Stroud MD [address] [place] [address] [email or web address] Cardiology 07/13/20 documented as of this encounter Additional Source Comments The information contained in this document represents components of the legal health record. It is not the complete legal health record.[facility]
--- OUTSIDE RECORDS SUMMARY | 2025-04-06 17:46 | XMS_ITS | Encounter Summary ---
Author Organization [facility] Address [address] [place] [address] [phone] Phone Care Team Providers Care Science Consultant Name Role Phone Kiesha Macedo MD Primary Care Provider [phone] Samira Stroud MD Unavailable Encounter Details Date Type Department Care Team (Late st Contact Info) Description 09/10/2024 Procedure Pass [facility] [address] [place] [address] Social History Tobacco Use Types Packs/Day Years [...] Info) Description 10/14/2024 Procedure Pass Non-Invasive Cardiology [address] [place] [address] [place] [address] 10/28/2024 Procedure Pass Non-Invasive Cardiology [address] [place] [address] 10/28/2024 Procedure Pass Non-Invasive Cardiology [address] [place] [address] [place] [address] 02/16/2025 Procedure Pass Echo Lab [address] [place] [address] 06/18/2025 1:30 PM EST Appointment Echo Lab [address] [place] [address] Franklin Jain MD [address] [place] [address], [address] [address] 07/27/2025 8:00 AM EST Office Visit [facility] [address] [place] [address] 3[address] Floor, [address] [place] [id number] Franklin Jain MD [address] [place] [address], [address] [address] 07/27/2025 8:30 AM EST Appointment Non-Invasive [place] [address] Eyad Khoury MD [address] [place] [phone] documented as of this encounter Visit Diagnoses Not on filedocumented in this encounter Care Teams Science Consultant Relationship Specialty Start Date End Date Kiesha Macedo MD [address] [place], [place] PCP - General Internal Medicine 10/07/18 Samira Stroud MD 1959 [place], [place] [email or web address] Cardiology 07/13/20 documented as of this encounter Additional Source Comments The information contained in this document represents components of the legal health record. It is not the complete legal health record.[facility]
--- OUTSIDE RECORDS SUMMARY | 2025-04-06 17:46 | XMS_ITS | Clinical Summary ---
Author Organization [facility] Address [address] [place] [id number] Phone Care Team Providers Care Medical Interpreter Name Role Phone Kiesha Macedo MD Primary Care Provider [phone] Samira Stroud MD Unavailable [phone] Allergies Active Allergy Reactions Criticality Noted Date Comments Hydrocodone Nausea Only Medium 12/17/2017 Hydrocodone-Acetaminophen Other (See Comments) 12/11/2017 Chest pain Medications aspirin 81 MG EC tablet Take 81 mg by mouth daily. Active thiamine (VITAMIN B-1) 100 MG tablet Take 100 mg by mouth daily. Active therapeutic multivitamin tablet Take 1 tablet by mouth daily. Active zinc 50 mg Tab tablet Take 50 mg by mouth daily. Active albuterol 90 mcg/actuation inhaler 2 Active carvedilol (COREG) 12.5 MG tablet Take 12.5 mg by mouth 2 (two) times a day with meals. 5 Active amiodarone (PACERONE) 200 MG tablet Take 1 tablet (200 mg total) by mouth daily. Take 200mg twice daily for 1 week, then after 1 week, 200mg daily 90 tablet 3 5 Active Additional Information Patient taking differently:200 mg Oral Daily,(No instructions reported), Reported on 02/16/2025 calcium carbonate-vitami n D3 500 mg-200 units per tablet Take by mouth every 12 (twelve) hours. 4 Active furosemide (LASIX) 40 MG tablet Take 40 mg by mouth daily. Active omeprazole (PRILOSEC) 20 MG capsule Take 20 mg by mouth 2 (two) times a day. Active atorvastatin (LIPITOR) 80 MG tablet Take 80 mg by mouth daily. Active potassium chloride (KLOR-CON) 10 MEQ ER tablet Take 30 mEq by mouth daily. Active warfarin (COUMADIN) 2.5 MG tablet Take 2.5 mg by mouth daily. Patient on alternating schedule of 2.5mg and 1.25mg based on INR Active Active Problems Problem Noted Date Diagnosed Date Cellulitis of right lower extremity 10/07/2024 Assessment & Plan (10/07/2024 4:21 PM EDT): Patient presents with bilateral lower extremity venous discoloration and weeping venous ulcers -Area of erythema and warmth on right lower extremity outlined - Wound care nurse consulted. Recommendations appreciated Plan: - Continue Doxy as above - Follow wound care orders -Consider vascular studies outpatient Persistent atrial fibrillation 10/07/2024 HFrEF (heart failure with reduced ejection fract ion) 08/13/2024 Assessment & Plan (10/07/2024 5:19 PM EDT): Patient with a history of CAD, persistent A-fib coronary valve disease, biosynthetic mitral valve, history of SC at 33 years old, hypertension and hyperlipidemia presenting for device upgrade to OCCUPATIONAL THERAPY ASST-D with addition of RV lead from Left sided Dual Chamber pacemaker 2/2 persistant AFIB and reduced EF -06/04/2024 ECHO which showed her ejection fraction to have fallen significantly into the 20 to 25% range. Her bioprosthetic mitral valve was functioning normally as well as her tricuspid annuloplasty. -08/20/2024 Stress test showed A-fib on the EKG without any ischemic changes. Nuclear imaging was markedly abnormal with a markedly dilated left ventricle, severely reduced EF of approximately 20% and multiple fixed perfusion defects in separate coronary territories. The most severe defects were in the basal to mid anterior wall and the inferior wall. - Per Dr. Khoury it is okay to resume Coumadin at 2.5 mg today (at baseline patient alternates between 1.25 mg and 2.5 mg) -10/07 INR 2.3 - Postop chest x-ray confirmed placement Plan: -Activity restrictions per cardiology - Morning chest x-ray - Morning device interrogation - Doxycycline 100 mg twice daily, amiodarone, carvedilol, Lasix, potassium chloride, Coumadin, statin, ASA - Telemetry - Follow-up outpatient in 1 to 2 weeks for wound assessment - Follow-up outpatient [address] to [address] Farfan & Mary (10/07/2024 4:21 PM EDT): Patient with a history of CAD, persistent A-fib coronary valve disease, biosynthetic mitral valve, history of SC at 33 years old, hypertension and hyperlipidemia presenting for device upgrade to OCCUPATIONAL THERAPY ASST-D with addition of RV lead from Left sided Dual Chamber pacemaker / persistant AFIB and reduced EF -06/04/2024 ECHO which showed her ejection fraction to have fallen significantly into the 20 to 25% range. Her bioprosthetic mitral valve was functioning normally as well as her tricuspid annuloplasty. -08/20/2024 Stress test showed A-fib on the EKG without any ischemic changes. Nuclear imaging was markedly abnormal with a markedly dilated left ventricle, severely reduced EF of approximately 20% and multiple fixed perfusion defects in separate coronary territories. The most severe defects were in the basal to mid anterior wall and the inferior wall. - Per Dr. Khoury it is okay to resume Coumadin at 2.5 mg today (at baseline patient alternates between 1.25 mg and 2.5 mg) -10/07 INR 2.3 Plan: -Activity restrictions per cardiology - Morning chest x-ray - Morning device interrogation - Doxycycline 100 mg twice daily, amiodarone, carvedilol, Lasix, potassium chloride, Coumadin, statin, ASA - Telemetry - Follow-up outpatient in 1 to 2 weeks for wound assessment - Follow-up outpatient 4 to [address] Farfan & Mary (08/13/2024 4:38 PM EDT): Ejection fraction newly reduced 20-25% Initially there is some thought that this might be pacemaker induced cardiomyopathy however was seen by Dr. Khoury who does not think this is the case. Thinking perhaps a result of atrial fibrillation versus coronary disease. There was no CAD seen on catheterization in 2019 although reportedly with a prior remote history of SC. Scheduled for cardioversion tomorrow Nuclear stress test next week Diuretic: Continue Lasix 40 mg daily GDMT: Continue carvedilol 12.5 mg twice daily Continue losartan 100 mg daily Further up titration of GDMT is limited by very soft blood pressure with which she is asymptomatic Chronic diastolic heart failure 08/10/2020 Assessment & Plan (06/05/2024 1:33 PM EST): Having some increased SUAREZ but no orthopnea Weight stable at home Euvolemic on exam Updating echocardiogram as above for surveillance of mitral valve replacement She should continue Lasix 40 mg daily I have requested her most recent labs from PCP be sent to our office for review Assessment & Plan (08/10/2020 2:51 PM EST): She reports an improvement in her shortness of breath since her valve was replaced but is still reporting some shortness of breath. She does have some JVD. I would recommend continuing the 40 mg of furosemide twice daily for now. It is possible that her atrial fibrillation with RVR is exacerbating her diastolic heart failure. Hopefully, when we control her ventricular response she will improve. We will have her come in for a follow-up in 3 to 4 weeks. Her diuretic will possibly be decreased at that time. S/P TVR (tricuspid valve repair) 07/04/2020 Complete heart block 07/04/2020 Assessment & Plan (06/02/2024 9:34 AM EST): She is s/p PPM Will have device interrogated in person when she comes back for her echocardiogram. Assessment & Plan (08/10/2020 2:49 PM EST): Programming device evaluation with iterative adjustment of the implantable device to test the function of the device and select optimal permanent program values with analysis review and report. Normal pacemaker function. She chooses to have her device followed by our office rather than going to [place]. We will set her up with remote monitoring. Her left upper chest incision is clean dry and intact with no redness drainage or warmth. Her Steri-Strips are still in place and securely on. I have left them in place and let her know that they will fall off on their own. She should call us if she has any signs of infection. Acute respiratory insufficiency, postoperative 0 07/04/2020 S/P mitral valve replacement 07/04/2020 Assessment & Plan (06/02/2024 9:32 AM EST): Valve functioning well on last echocardiogram 01/17/2023 Updating echocardiogram for ongoing surveillance of this Assessment & Plan (08/10/2020 2:52 PM EST): Postoperative echocardiogram showed a normally functioning bioprosthetic mitral valve. She reports that she is still getting physical therapy. She just got out of rehab a week ago. She is questioning whether she should go to cardiac rehab. At this time, given her atrial fibrillation with RVR with symptoms, I have recommended that she hold off on cardiac rehab for now. We should fine-tune her hemodynamics and reconsider this at her next follow-up if she is feeling better. She will continue with physical therapy which she is getting at home. 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 Assessment & Plan (06/30/2018 8:28 AM EST): Asymptomatic. Assessment & Plan (01/20/2018 11:06 AM EDT): She is not describing any chest pain. Continue baby aspirin. Assessment & Plan (12/11/2017 9:59 AM EDT): No angina. History of normal coronaries post SC. Non-rheumatic mitral valve stenosis 12/11/2017 Assessment & Plan (01/20/2018 11:05 AM EDT): Her echocardiogram in 2017 showed a progression of her mitral valve disease with severe mitral stenosis. Repeat echocardiogram recently showed moderate mitral stenosis which is the same as her echocardiogram from 2016. She has moderate to severe pulmonary hypertension. I have asked her to follow-up with Dr. Lopez after her orthopedic issue has been resolved. At that point they can discuss VIVIANA to get a better look at her mitral valve. She is currently euvolemic on exam. She is not describing any overt heart failure symptoms. Pulmonary hypertension 12/11/2017 Assessment & Plan (01/20/2018 11:05 AM EDT): He does have known restrictive lung disease. Plan for VIVIANA in the near future after her orthopedic issues have been resolved to get a better sense of her mitral stenosis. Essential hypertension 05/08/2017 Assessment & Plan (10/07/2024 3:58 PM EDT): Plan as above Assessment & Plan (08/10/2020 2:49 PM EST): Blood pressure in the office today is normal. Assessment & Plan (05/05/2020 2:09 PM EST): Blood pressure in the office today was 126/70. She is currently taking amlodipine 5 mg daily, atenolol 50 mg daily, losartan 100 mg daily, aspirin 81 mg daily, Coumadin. Assessment & Plan (10/07/2018 9:34 AM EDT): Controlled on present therapy. No changes. Assessment & Plan (06/30/2018 8:28 AM EST): Controlled on present therapy. Assessment & Plan (03/28/2018 11:22 AM EDT): Controlled on present therapy. Assessment & Plan (01/20/2018 11:06 AM EDT): Pressure today is normal. Continue current meds. Assessment & Plan (05/08/2017 4:06 PM EST): Blood pressure today in the office was controlled at 118/80. No medication changes at this time. --Continue current dose of Amlodipine --Continue current dose of Atenolol --Continue current dose of Losartan --Continue current dose of Furosemide --Repeat BMP, Lipid profile, and LFT's in 6months Mitral valve insufficiency 05/08/2017 Assessment & Plan (08/13/2024 4:29 PM EDT): Trace MR on last echocardiogram with well-functioning bioprosthetic valve. Assessment & Plan (05/05/2020 2:11 PM EST): Her right and her left catheterization shows some moderate to severe mitral stenosis with moderate regurgitation. It is likely she will need her mitral valve repaired or placed. She will follow-up with Dr. Hughes in [place] for potential surgery. After her surgery has been completed she can follow-up back in this office. Assessment & Plan (06/30/2018 8:28 AM EST): Mixed mitral valve disease but at least for the moment well-tolerated. Now off oxygen during the day but still uses it at night. I will have a proBNP drawn today which should serve as a baseline. Assessment & Plan (03/28/2018 11:22 AM EDT): Mixed mitral valve disease with mild to moderate regurgitation and stenosis. Ejection fraction preserved. Would like to get Ramona a little more active before we will reapproach her valve. I have asked her to come back in about 3 months without any changes in her medications and I will repeat her labs then as well. I still believe a transesophageal echocardiogram would help differentiate the degree of disease but again I am in a letter get a little bit better from her orthopedic issues unless she becomes clinically worse. Mixed hyperlipidemia 05/08/2017 Assessment & Plan (10/07/2018 9:34 AM EDT): LDL is now at 90. She is already at the highest dose of atorvastatin. Not can add any new drugs or change her medications until hopefully postoperatively. I will remeasure then. Assessment & Plan (06/30/2018 8:30 AM EST): Remains on her statin. I will have a lipid profile drawn this morning. Assessment & Plan (03/28/2018 11:23 AM EDT): As noted LDL is 81. No change in medications and our repeat her lipid profile 3 months from now. Assessment & Plan (01/20/2018 11:07 AM EDT): Continue Lipitor. Assessment & Plan (05/08/2017 4:07 PM EST): Previous values have been noted to be within normal range. The patient was not able to have her ordered lab work completed prior to this visit. We will not make any adjustments at this time she will continue on her current regimen. --Continue current dose of aspirin --Continue current dose of atorvastatin --BMP, Lipid profile, and LFT's in 6 months Dyspnea on exertion 05/08/2017 Assessment & Plan (06/02/2024 9:31 AM EST): She is having some increased dyspnea on exertion. Tells me she is not reliably taking her inhalers. Recently saw her dynamometer repairer on 04/07. He started prior PFTs about 2 years ago which is shown severe restriction of lung function mild reduction in vital capacity but more significantly with severely reduced diffusion capacity which thought to perhaps be related to her valvular heart disease. She did have a significant bronchodilator response. He has ordered her for repeat PFTs. I have recommended that she take her inhalers as prescribed We are updating her echocardiogram for surveillance of her mitral valve and make sure there is no structural issue contributing to her symptoms. Assessment & Plan (10/07/2018 9:33 AM EDT): Mild and stable for her. No recent progression. Able to ambulate short distances but limited by her leg discomfort. Again I believe she is at low to at worst moderate risk of cardiac complications at the time of needed orthopedic surgery and I see no contraindication to proceeding. Assessment & Plan (06/30/2018 8:29 AM EST): Relatively stable and may even be slightly better. Assessment & Plan (12/11/2017 9:58 AM EDT): While I do believe this is multifactorial I'm also very concerned about her degree of mitral valve disease. I've told Ramona that this may need to be approached and that may require an open valve replacement. I think it is unlikely but not impossible that this could be repaired percutaneously. She would be at least moderate risk for open repair. I've asked her to repeat her echocardiogram is that was about 6 months old and we did discuss where her evaluation should be if she agrees to have this evaluated. Assessment & Plan (05/08/2017 4:04 PM EST): The patient shortness of breath most likely due to her pulmonary hypertension may be related to her sleep apnea rate she has been using her CPAP machine for many years and tolerating that well. She was recently initiated on PRN supplemental oxygen via nasal cannula at 2 L. Most recent echocardiogram from January 2017 compared with findings of the previous report of 08/30/15 showed that her MRN MS have both progressed and PA pressures have roughly remaining the same around 60. She had an evaluation by dynamometer repairer Dr. Les Colon 2 weeks ago and will continue to follow along with him. Sleep apnea Overview (06/14/2020): on CPAP Mitral valve disease Assessment & Plan (08/10/2020 2:50 PM EST): Status post mitral valve replacement on June 29. She has reported an improvement in her shortness of breath. She had an echocardiogram postoperatively showing a normally functioning bioprosthetic mitral valve. Hypertensive disorder Overview (06/14/2020): med managed Assessment & Plan (06/02/2024 9:34 AM EST): Blood pressure well-controlled here in the office today Continue current medications without change Hyperlipidemia Overview (06/14/2020): on statin Gout Overview (06/14/2020): med managed COPD (chronic obstructive pulmonary disease) Overview (06/14/2020): on Home O2 x 3-4 yrs Assessment & Plan (10/07/2024 4:21 PM EDT): Patient followed by [facility] pulmonology She also has a history of GORDON with CPAP use. She is declining CPAP during this admission, she is aware she may change her mind Plan: - Continue albuterol - Monitor respiratory status on amiodarone Arthritis Atrial fibrillation Overview (06/14/2020): on warfarin Assessment & Plan (10/07/2024 3:58 PM EDT): Continue plan as above Assessment & Plan (08/13/2024 4:31 PM EDT): Her atrial fibrillation is thought to perhaps be contributing to her cardiomyopathy per Dr. Khoury. She is now taking amiodarone and is scheduled for a cardioversion tomorrow. No EKG today however her heart rate is irregularly irregular on exam. Keep appointment for cardioversion tomorrow Continue carvedilol 12.5 mg twice daily Continue Coumadin Coronary artery disease Overview (06/14/2020): report in notes heart attack at 33 , cardiac cath 04/21/20 no sig coronary artery ds Pandey's esophagus Overview (06/14/2020): last EGD ~ 2 yrs ago-f/b PCP, med/ diet managed and currently asymptomatic - denies swallowing issues A-fib Overview (07/04/2020): on warfarin Assessment & Plan (06/02/2024 12:22 PM EST): Having some increased dyspnea on exertion unclear if is related to the A-fib. EKG today showing atrial fibrillation rate 94 bpm, nonspecific ST-T wave abnormalities, PVCs present [id number] score is 6 Continue Coumadin Continue atenolol 50 mg daily If anticoagulation is to be held prior to upcoming surgical procedure she should be bridged with Lovenox Assessment & Plan (08/10/2020 2:48 PM EST): She has chronic atrial fibrillation. At the time of her mitral valve replacement and tricuspid valve repair, she had a pulmonary vein isolation and left atrial appendage ligation. She is still in atrial fibrillation. Her atenolol was stopped while she was in the hospital because of complete heart block. She has A. fib with RVR most of the time according to her device interrogation. I have restarted her atenolol 50 mg. She is appropriately anticoagulated on Coumadin. Resolved Problems Problem Noted Date Diagnosed Date Resolved Date Atherosclerosis of coronary artery of [place] heart without angina pectoris 05/08/2017 12/11/2017 Assessment & Plan (05/08/2017 4:01 PM EST): The patient denies any chest pain, chest pressure, or palpitations with no clinical evidence of recurrence. The patient was not able to obtain previous lab work, we will reorder these again. --BMP, Lipid Panel, and LFT's prior to her 6 month follow up in November of 2017 --Continue current dose of Atorvastatin --Continue current dose of Aspirin Encounters Date Type Department Care Team Description 02/16/2025 3:20 PM EDT Office Visit [facility] [address], [address] [place] [address] Franklin Jain MD Presence of prosthetic heart valve (Primary Dx); Status post tricuspid valve repair 02/16/2025 Transcribe Orders [facility] [address], [address] [place] [address] Franklin Jain MD Dilated cardiomyopathy (Primary Dx); Persistent atrial fibrillation 01/07/2025 Orders Only [facility] [address], [address] [place], [place] [id number] ProviderJasmyn MD 01/06/2025 Telephone [facility] [address], [address] [place], [place] [id number] Joshua Burnett from Last 3 Months Immunizations Immunization Administration Dates Next Due COVID-19 (Pre-03/25) Pfizer Vaccine, mRNA, PF 09/24/2020,09/03/2020 Influenza High-Dose Trivalen t Preservative Free IM 04/22/2019,03/06/2018,04/29/2017,02/01,05/18/2015 Influenza Quadrivalent Adjuv anted Preservative Free IM 02/02/2020 Pneumococcal polysaccharide PPSV23 03/06/2018, Zoster live 02/02/2016 Zoster recombinant 08/20/2018,03/06/2018 Family History Medical History Relation Comments Rheumatic heart disease Mother Relation Status Comments Mother Social History Tobacco Use Types Packs/Day Years Used Date Smoking Tobacco: Former Cigarettes Smokeless Tobacco: Never Tobacco Cessation:Counseling Given: Not Answered Comments:quit age 33 Alcohol Use Standard Drinks/Week [...] on file Sexual Orientation Not on file Last Filed Vital Signs Vital Sign Reading Time Taken Comments Blood Pressure 104/66 02/16/2025 3:35 PM EDT Pulse 78 02/16/2025 3:35 PM EDT Temperature 35.3 C (95.5 F) 10/08/2024 8:30 AM EDT Respiratory Rate 18 10/08/2024 8:30 AM EDT Oxygen Saturation 99% 02/16/2025 3:35 PM EDT Inhaled Oxygen Concentration 30% 07/08/2020 1 0:09 PM EST Weight 75.3 kg (166 lb) 11/30/2024 8:01 AM EDT Height 160 cm (5' 2.99 ) 02/16/2025 3:35 PM EDT Body Mass Index 29.41 11/30/2024 8:01 AM EDT Plan of Treatment Upcoming Encounters Date Type Department Care Team (Late st Contact Info) Description 10/14/2024 Procedure Pass Non-Invasive Cardiology [address] [place] [id number] 10/28/2024 Procedure Pass Non-Invasive Cardiology [address] [place] [address] 10/28/2024 Procedure Pass Non-Invasive [facility]iology [address] [place] [id number] 02/16/2025 Procedure Pass [facility] [place] [place] [id number] 06/18/2025 1:30 PM EST Appointment Echo Lab [address] [place] [address] Franklin Jain MD [address] [place] [address], [address] [place] [address] [email or web address] 07/27/2025 8:00 AM EST Office Visit [facility] [address], [address] [place] [address] Franklin Jain MD [address] [place] [address], [address] [place] [address] [email or web address] 07/27/2025 8:30 AM EST Appointment Non-Invasive Cardiology [address] [place] [address] [place] [address] Eyad Khoury MD [address] [place] [id number] Health Maintenance Due Date Last Done Comments Adult Td,Tdap Booster 1942 TSH LEVEL 1942 DEPRESSION SCREENING 1954 OSTEOPOROSIS SCREENING INITIAL (ONE-TIME) 2007 PNEUMOCOCCAL VACCINES (50+ years) (2 of 2 - PCV) 03/06/2019 03/06/2018, 04/29/2017 INFLUENZA VACCINE (#1) 2025 , 02/25/2023, 02/25/2023, Additional history exists COVID-19 VACCINE ( season) 2025 05/11/2024, 02/25/2023, 04/05/2022, Additional history exists BLOOD PRESSURE 08/16/2025 02/16/2025 ALT LEVEL (ALANINE AMINOTRANSFERASE) 10/08/2025 10/08/2024, 10/07/2024, 06/07/2020, Additional history exists POTASSIUM LEVEL 11/30/2025 11/30/2024, 01/2025, 10/07/2024, Additional history exists ZOSTER VACCINES Completed 08/20/2018, 09/2017, 02/02/2016 RSV VACCINE Completed 03/28/2023 HEPATITIS A VACCINES Aged Out No long er eligible based on patient's age to complete this topic HIB VACCINES Aged Out No longer eligi ble based on patient's age to complete this topic MENINGOCOCCAL VACCINES (ACWY) Aged Out No longer eligible based on patient's age to complete this topic MENINGOCOCCAL VACCINES (B) Aged Out N o longer eligible based on patient's age to complete this topic Medical Devices Implanted Type Area Cod Clerk Device Identifier Shelf Expiration Date Model / Serial / Lot Envelope Tyrx Cardiac Lg Absorbable Antibacterial Sterile - [id number] Implanted:Qty: 1 on 10/07/2024 by Eyad Khoury MD at [facility] Collagen Chest [employer] [place] [id number] 05/08/2025 [id number] / / [id number] Defibrillator Cardiac [id number] [employer] [place] Xt Hf Data [employer] Director-D Mri Suredcan - [id number] Implanted:Qty: 1 on 10/07/2024 by Eyad [facility] [facility] Chest [employer] [id number] 11/28/2025 [id number] / [id number] 02 / Lead Pacing Selectsecure 4fr 69cm Bradycardia Steroid Eluting Fixed Screw Bipolar - [id number] Implanted:Qty: 1 on 07/04/2020 by Elias Christine MD at [facility] Lead Left: Right Ventricle [employer] [id number] 05/05/2022 [id number] / [id number] / Lead Pacing Capsurefix 6.2fr 52cm Novus Mri Silicone Steroid Eluting Transvenous Atrium Rv Active Screw Is1 Bi - [id number] Implanted:Qty: 1 on 07/04/2020 by Elias Christine MD at [facility] Lead Right Atrium [employer] [id number] 04/20/2022 5076-52 / [id number] / Lead Cardioverter Defibrillator Sprint Quattro Securesilicone Endo Rv Active Screw 4401a03 - [id number] Implanted:Qty: 1 on 10/07/2024 by Eyad Khoury MD at [facility] Lead Right Ventricle [employer] [id number] 04/29/2025 [id number] / [id number] 17V / Device Pacemaker [place] Xt Dr Gardner - [id number] Implanted:Qty: 1 on 07/04/2020 by Elias Christine MD at [facility] Pacemaker Left: Chest Wall [employer] [id number] 12/14/2021 [id number] / [id number] 63H / Valve Heart 10x20 29 31mm Bioprosthesis Mittral Epic Linx Ac Xenograft Stented - [id number] Implanted:Qty: 1 on 06/29/2020 by Aaron Hughes MD at [facility] N/A: Heart [employer] 09/14/2023 E100-31 M-00 / [id number] / Ring Annuloplasty 30mm Tricuspid 3d Incomplete Rigid Downward Angle Valve Mc3 Implantable - [id number] Implanted:Qty: 1 on 06/29/2020 by Aaron Hughes MD at [facility] N/A: Heart [employer] 03/07/2025 4914I61 / [id number] / Device Sternal Fixation Zipfix Peek Needle Single - [id number] Implanted:Qty: 4 on 06/29/2020 by Aaron Hughes MD at [facility] N/A: Chest [employer] 08.501. 001.01S / / Procedures Procedure Name Priority Date/Time Associated Diagnosis Comments BASIC METABOLIC PANEL (BMP) Routine 11/30/2024 8:53 AM EDT HFrEF (heart failure with reduced ejection fraction) LFTS (HEPATIC PANEL) Routine 10/08/2024 5:44 AM EDT from Last 3 Months or Most Recently Relevant to Health Maintenance Results * (ABNORMAL) Basic metabolic panel (11/30/2024 8:53 AM EDT) SODIUM 140 133 - 146 mmol/L [facility] CHLORIDE 102 96 - 108 mmol/L [facility] POTASSIUM 4.5 3.3 - 5.1 mmol/L [facility] CO2 31 21 - 35 mmol/L [facility] BUN 22(H) 6 - 19 mg/dL [facility] CREATININE 1.10 0.5 - 1.5 mg/dL [facility] GLUCOSE 123(H) 70 - 99 mg/dL [facility] CALCIUM 9.3 8.4 - 10.3 mg/dL [facility] EGFR 50(L) >59 mL/min/1.7 3m2 [facility] Comment:Estimated glomerular filtration rate calculated using the CKD-EPI refit equation. ANION GAP 12 10 - 20 mmol/L [facility] Blood 11/30/2024 8:53 AM EDT 11/30/2024 8:55 AM EDT us Franklin Jain MD LAB BLOOD BKR ORDERABLES Wilma l Result Performing Organization Address City/[facility]/ZIP Co de Phone Number [address] [address] * (ABNORMAL) LFTs (hepatic panel) (10/08/2024 5:44 AM EDT) ALKALINE PHOSPHATASE 98 39 - 117 U/L [facility] TOTAL BILIRUBIN 1.0 0.0 - 1.2 mg/dL [facility] DIRECT BILIRUBIN 0.4(H) 0.0 - 0.2 mg/dL [facility] Bilirubin (Indirect) 0.6 0 - 1.5 mg/dL [facility] AST 24 0 - 37 U/L [facility] ALT 11 0 - 40 U/L [facility] TOTAL PROTEIN 5.4(L) 6.5 - 8.0 g/dL [facility] ALBUMIN 3.1(L) 3.9 - 4.8 g/dL [facility] GLOBULIN 2.3 1 - 4.8 g/dL [facility] A/G Ratio 1.35 1.00 - 4.80 RATIO [facility] Blood 10/08/2024 5:44 AM EDT 10/08/2024 6:09 AM EDT us Anayeli Munguia CNP LAB BLOOD BKR ORDERABLES Final Result [address] [address] from Last 3 Months or Most Recently Relevant to Health Maintenance Insurance MEDICARE PART A & B [employer] [facility] Member Subscriber Plan / Payer (Ef fective 2009-Present) Name:Ramona Pinon Relation to Subscriber:Spouse Name:JOHANNY PINON Date of :1900 (Home) Address: [address] [place] [address] Payer ID:[id number] (NAIC) Group ID:[id number] Type:PPO Address: [facility] [id number] [place] [id number] MEDICARE PART A & B [facility] Member Subscriber Plan / Payer (Ef fective 2009-Present) Name:Ramona Pinon Relation to Subscriber:Spouse Name:JOHANNY PINON Date of :1898 (Home) Address: [address] [place] [address] Payer ID:[id number] (NAIC) Group ID:[id number] Type:PPO Address: [id number] [place] [address] MEDICARE PART A & B [facility] Member Subscriber Plan / Payer ( fective 2009-Present) Name:Ramona Pinon Relation to Subscriber:Spouse Name:JOHANNY PINON Date of :1898 (Home) Address: [address] [place] [address] Payer ID:[id number] (NAIC) Group ID:[id number] Type:PPO Address: [address] [place] [address] MEDICARE PART A & B Member Subscriber Plan / Payer (Ef fective 2007-Present) Name:Ramona Pinon Member ID:[id number] Relation to Subscriber:Self Name:Ramona Pinon Subscriber ID:[id number] Payer ID:[id number] Group ID:Not on file Type:Medicare Address: [facility] [address] [place] [address] [facility] Member Subscriber Plan / Payer (Ef fective 2009-Present) Name:Ramona Pinon Relation to Subscriber:Spouse Name:JOHANNY PINON Date of :1898 (Home) Address: [address] [place] [address] Payer ID:[id number] (NAIC) Group ID:[id number] Type:[facility] Address: [facility] [id number] [place] [address] MEDICARE PART A & B [facility] Member Subscriber Plan / Payer (Ef fective 2009-Present) Name:Ramona Pinon Relation to Subscriber:Spouse Name:JOHANNY PINON Date of :1898 (Home) Address: [address] [place] [address] Payer ID:[id number] (NAIC) Group ID:[id number] Type:PPO Address: [address] [place] [address] MED[address] A & [place] [address] [employer] [facility] Member Subscriber Plan / Payer (Ef fective 2009-Present) Name:Ramona Pinon Relation to Subscriber:Spouse Name:JOHANNY PINON Date of :1898 (Home) Address: [address] [place] [address] Payer ID:[id number] (NAIC) Group ID:[id number] Type:PPO Address: [facility] [address] [place] [address] MEDICARE PART A & B [facility] Member Subscriber Plan / Payer (Ef fective 2009-Present) Name:Ramona Pinon Relation to Subscriber:Spouse Name:JOHANNY PINON Date of :1898 (Home) Address: [address] [place] [address] Payer ID:[id number] (NAIC) Group ID:[id number] Type:PPO Address: [id number] [place] [address] MEDICARE PART A & B [facility] Member Subscriber Plan / Payer ( fective 2009-Present) Name:Ramona Pinon Relation to Subscriber:Spouse Name:JOHANNY PINON Date of :1898 (Home) Address: [address] [place] [address] Payer ID:[id number] (NAIC) Group ID:[id number] Type:PPO Address: [address] [place] [address] MEDICARE PART A & B [facility] [employer] Member Subscriber Plan / Payer (Ef fective 2009-Present) Name:Ramona Pinon Relation to Subscriber:Spouse Name:JOHANNY PINON Date of :1898 (Home) Address: [address] [place] [address] Payer ID:[id number] (NAIC) Group ID:[id number] Type:[facility] Address: [facility] [address] [place] [address] Advance Directives For more information, please contact: [phone] (9AM - 5PM [facility], Saturday-Saturday) * Full Code (Latest Code Status on File) Date Activated Date Inactivated Comments 10/07/2024 3:26 PM Question Answer Comments Code Status Confirmed With: Patient * Full Code Date Activated Date Inactivated Comments 07/04/2020 4:36 AM 10/07/2024 3:26 PM Question Answer Comments Code Status Confirmed With: Patient * Full Code Date Activated Date Inactivated Comments 07/01/2020 1:12 AM 07/04/2020 4:36 AM Question Answer Comments Code Status Confirmed With: Patient * Full Code Date Activated Date Inactivated Comments 04/21/2020 2:15 PM 06/29/2020 7:07 AM Question Answer Comments Code Status Confirmed With: Patient Care Teams Medical Interpreter Relationship Specialty Start Date End Date Kiesha Macedo MD 1959 [place], [place] PCP - General Internal Medicine 10/07/18 [place] [address] [place] [address] [email or web address] 07/13/20 Additional Source Comments The information contained in this document represents components of the legal health record. It is not the complete legal health record.[facility]
== END 2025-04-06 15:31 | disposition home or self-care (01) ==
PROVIDERS: PCP Internal Medicine; Visit Provider Physician Assistant Medical
DX: W19.XXXA Unspecified fall, initial encounter (principal); R52 Pain, unspecified

== ENCOUNTER → 2025-04-06 14:40 | Outpatient (BNVA) | payer MEDICARE, BC, SELFPAY | PROVIDERS: PCP Internal Medicine; Visit Provider Physician Assistant Medical | DX: M25.559 Pain in unspecified hip (principal); M54.50 Low back pain, unspecified; Z91.81 History of falling | CPT/HCPCS: 99212 ==

== ENCOUNTER 2025-04-08 09:45 | Outpatient (RCR) | payer MEDICARE, BC, SELFPAY | END 2025-05-10 16:00 | disposition home or self-care (01) | LOC: HO.WCC 09:45 | PROVIDERS: PCP Internal Medicine; Visit Provider Surgery Surgical Oncology | DX: I87.332 Chronic venous hypertension (idiopathic) with ulcer and inflammation of left lower extremity (principal); L89.622 Pressure ulcer of left heel, stage 2; I27.20 Pulmonary hypertension, unspecified; I11.0 Hypertensive heart disease with heart failure; I50.23 Acute on chronic systolic (congestive) heart failure; N18.9 Chronic kidney disease, unspecified; I48.20 Chronic atrial fibrillation, unspecified; J44.89 Other specified chronic obstructive pulmonary disease; G47.33 Obstructive sleep apnea (adult) (pediatric); Z87.891 Personal history of nicotine dependence; Z99.81 Dependence on supplemental oxygen | CPT/HCPCS: 11042; 97597; 99212; 99213; 99215 ==

== ENCOUNTER 2025-04-15 12:06 | Inpatient (IN) | payer MEDICARE, BC, SELFPAY ==
--- NOTE | ~2025-04-15 | CT_ITS ---
CLINICAL HISTORY: fall --- Additional Notes or Special Instructions: went to get 1255 pt could not lay down as she was in pain notified ordering provider. WANTS MED, N RDY 1420, NOT RDY @1553, PT BROUGHT TO CT, NOT CT cervical spine without contrast Comparison: CT/SR - CT CERVICAL SPINE WO IV CON - 01/09/25 11:33 EDT Findings: Normal vertebral body alignment. Multilevel spondylosis. No central canal stenosis. No acute fractures or dislocations. No acute findings on limited view of the intracranial contents. Enlarged heterogeneous thyroid gland containing multiple nodules. Partial visualization of a cardiac pacemaker. No consolidation or pleural effusion. IMPRESSION: 1. No acute cervical spine fracture. 2. Enlarged heterogeneous thyroid gland containing multiple nodules. Consider further evaluation with ultrasound when clinically appropriate. This document has been electronically signed by: Mariela Porter MD on 04/15/2025 18:03:03
--- NOTE | ~2025-04-15 | CT_ITS ---
CLINICAL HISTORY: fall CT head without contrast Comparison: CT/SR - CT HEAD/BRAIN WO IV CON - 01/09/25 11:33 EDT Findings: Involutional change of brain parenchyma, compatible with age. 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 No significant atrophy-like change or white matter disease. There are postsurgical changes of the paranasal sinuses. Paranasal sinuses are well-aerated. The orbits are unremarkable. No skull fracture. IMPRESSION: No skull fracture or intracranial hemorrhage. This document has been electronically signed by: Mariela Porter MD on 04/15/2025 18:00:13
--- NOTE | ~2025-04-15 | CT_ITS ---
CLINICAL HISTORY: Fall CT chest without contrast Comparison: None provided Findings: The heart is moderately enlarged. There has been a prior sternotomy. There is a cardiac pacemaker. There is dense mitral annular calcification. There are coronary artery calcifications. The thyroid gland is enlarged and heterogeneous and contains multiple nodules. There is no mediastinal lymphadenopathy. There is multifocal pleural calcification likely on the basis of prior asbestos exposure. There is no consolidation or pleural effusion. There is a 12 mm left lower lobe nodule on image 31. There are faint peripheral calcifications within the nodule. This nodule is not definitively a granuloma. There is a rounded area of atelectasis within the posterior aspect of the right lower lobe. There are linear foci of atelectasis within the bilateral lower lobes. There is no pleural effusion. There are multiple calcified granulomas within the spleen. Findings at the level of the abdomen are reported separately. There is a cortical step-off involving the anterior cortex of T10. Subtle additional cortical step-off involving the posterior cortex of T10. The fracture line is not well-visualized. There is a mild degree of adjacent edema. 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 There is no evidence of involvement of the posterior elements. There is no significant loss of vertebral body height. IMPRESSION: 1. There is an acute fracture of the T10 level involving the anterior and posterior cortices. Given ossification along the course of the anterior longitudinal ligament and a fracture line in the region of the ligament, injury to the anterior longitudinal ligament should be considered. This may potentially represent an unstable fracture. 2. There is a 12 mm left lower lobe nodule. Recommend three-month follow-up CT. 3. Multiple thyroid nodules. Recommend further evaluation with thyroid ultrasound when clinically appropriate. This document has been electronically signed by: Mariela Porter MD on 04/15/2025 18:12:44
--- NOTE | ~2025-04-15 | CT_ITS ---
CLINICAL HISTORY: Fall CT abdomen and pelvis without contrast Comparison: CT/REG/MS/SR - CT ABDOMEN PELVIS WITHOUT IV CONTRAST - 03/02/24 07:48 EDT Findings: Findings at the lung bases are reported separately. There are multiple calcified granulomas within the spleen. The liver, pancreas and adrenal glands are unremarkable. There is a right-sided ureteral stent extending from the renal pelvis into the bladder lumen. Mild infiltration of fat adjacent to the right renal pelvis. Mild right-sided pelviectasis. There are 2 small nonobstructive calculi within the right kidney. No hydronephrosis. The left kidney and its collecting system are unremarkable. There has been a prior cholecystectomy. There is no free fluid. There is gas within the bladder lumen compatible with recent placement of a ureteral stent. Pelvic contents are otherwise unremarkable. The appendix is normal. There is colonic diverticulosis. There is mild infiltration of the mesentery adjacent to proximal sigmoidal diverticula. No bowel obstruction. Pelvic contents unremarkable. Normal appendix. Status post open reduction internal fixation of the bilateral femurs with incomplete visualization of hardware. No acute fracture at the level of the abdomen or pelvis. No dislocation. IMPRESSION: 1. No hemoperitoneum or abdominal organ injury. 2. There is a right-sided ureteral stent. There is mild right-sided pelviectasis and infiltration of fat adjacent to the right renal pelvis. Recommend correlation with urinalysis to exclude pyelonephritis. 3. There may be a mild degree of diverticulitis of the proximal sigmoid colon. 4. There are 2 small nonobstructive calculi within the right kidney. This document has been electronically signed by: Mariela Porter MD on 04/15/2025 18:28:29
--- NOTE | ~2025-04-15 | XR_ITS ---
EXAMINATION: XR CHEST CLINICAL INFORMATION: Cough COMPARISON: December 07, 2024. Correlated to CT chest dated April 15, 2025. TECHNIQUE: AP view of the chest was obtained. Portable semiupright position. FINDINGS: Indistinct margins in the perihilar regions and lower cardiomediastinal silhouette. Opacity left lower hemithorax. Cardiomediastinal silhouette size is enlarged. 3 metallic electrode leads in the right heart chambers and likely coronary sinus. Left-sided pacemaker reservoir. No pneumothorax. Multilevel spondylosis. Osteopenia versus osteoporosis. XR/XR chest 1V IMPRESSION: Pulmonary edema left-sided small to moderate volume pleural effusion and cardiomegaly. Electronically signed by: Cruz Herrera MD 04/22/2025 10:44 AM TOBI
[2025-04-15 12:22] VITALS: BP 97/46; PULSE 88; RESP 18; TEMP 36.4; O2SAT 98; BMI 21.1
--- NOTE | 2025-04-15 12:25 | ED.GENADULT ---
HPI - General Adult General Chief complaint: Recheck/Abnormal Lab/Rx Stated complaint: abnormal labs with fall- multi comp Time Seen by Provider: 04/15/25 13:37 Source: patient and old records reviewed Mode of arrival: wheelchair Limitations: other (poor historian) History of Present Illness ED Provider: ANSELMO VAZQUEZ narrative: 84 yo female with PMH of porcine MVR, GORDON on CPAP, CHF with EF 40%, CKD, renal colic with ureteral stones, HTN, HLD, afib on coumadin, osteoporosis here with c/o being sent over from the coumadin clinic for INR 8. She denies any bleeding other than saw a small amount of blood in urine this AM. She reports a fall at a restaurant 1.5 weeks ago - no headstrike or LOC but since then has sore hip. She has prior L femur fracture in past with ORIF. She notes she uses a walker since the fall. She admits to another fall in the last few days states she fell landing on the toilet but no trauma reported. She denies CP/SOB/fevers. She states her leg swelling has improved and her doctor is very happy with it. She denies urinary symptoms at this time as well. She states she lives with her . She was referred here by coumadin clinic. complaint: falls Onset (ago): week(s) (1.5) Location: left and lower extremity Radiation: non-radiation Severity: moderate Quality: aching Pain Consistency: intermittent Relieving factors: immobilization Exacerbating factors: movement Associated symptoms: other (hematuria) Treatments prior to arrival: none Related Data Home Medications ?Medication ?Instructions ?Recorded ?Confirmed ascorbate calcium (vitamin C) 500 500 mg PO DAILY 01/04/23 04/16/25 mg tablet [id number]-minerals 1 tab PO DAILY 01/04/23 04/16/25 zinc gluconate 50 mg tablet 50 mg PO DAILY 01/04/23 04/16/25 acetaminophen 325 mg capsule 650 mg PO Q8H PRN Pain 01/20/24 04/15/25 amiodarone 200 mg tablet 200 mg PO DAILY 07/27/24 04/15/25 omeprazole 20 mg capsule,delayed 20 mg PO BID@0630,1630 12/07/24 04/15/25 release thiamine HCl (vitamin B1) 100 mg 100 mg PO DAILY 01/12/25 04/16/25 capsule warfarin 2.5 mg tablet 2.5 mg PO SUTUTH@1800 01/12/25 04/15/25 amlodipine 5 mg tablet 5 mg PO DAILY 04/15/25 04/15/25 carvedilol 12.5 mg tablet 12.5 mg PO BID 04/15/25 04/15/25 furosemide 40 mg tablet (Lasix) 40 mg PO BID 04/15/25 04/16/25 umeclidinium 62.5 mcg-vilanterol 1 inh inhalation DAILY 04/15/25 25 mcg/actuation powdr for inhalation (Anoro Ellipta) warfarin 2.5 mg tablet 1.25 mg PO MOWEFRSA@1800 04/15/25 04/15/25 cholecalciferol (vitamin D3) 10 10 mcg PO DAILY 04/16/25 04/16/25 mcg (400 unit) tablet (Vitamin D3) potassium chloride 20 mEq 20 meq PO DAILY 04/16/25 04/16/25 tablet,extended release Previous Rx's ?Medication ?Instructions ?Recorded albuterol sulfate 90 mcg/actuation 2 puff inhalation Q4-6H PRN 06/30/24 aerosol inhaler shortness of breath or wheezing #8.5 grams metoprolol succinate 50 mg 50 mg PO DAILY #90 tabs 01/14/25 tablet,extended release 24 hr spironolactone 25 mg tablet 12.5 mg PO DAILY #90 tabs 01/14/25 lisinopril 5 mg tablet 5 mg PO BID #90 tabs 02/17/25 atorvastatin 80 mg tablet 80 mg PO DAILY #90 tabs 04/11/25 Allergies Allergy/AdvReac Type Severity Reaction Status Date / Time hydrocodone (From Vicodin) Allergy Mild CHEST PAIN Verified 04/15/25 12:26 Review of Systems Review of Systems: Constitutional : No Fever, No Chills ENT/Mouth : No Ear Pain, No Hoarseness, No sore throat Eyes: No Eye Pain, No Swelling, No Redness, No Foreign Body Cardiovascular : No Chest Pain, No SOB Respiratory : No Cough, No Dyspnea Gastrointestinal : No Nausea, No Vomiting, No Diarrhea, No abdominal Pain Genitourinary : No Dysuria, No Hematuria Musculoskeletal : positive joint pain, No Myalgias, No Joint Swelling Skin : No Skin lacerations, No rash Neuro : No Weakness, No Numbness, No Loss of Consciousness, No Dizziness, No Headache All other systems reviewed and are negative [facility] Past Medical History Attestation statement: The following information was validated with the patient. Source: old records reviewed Medical History HFrEF (heart failure with reduced ejection fraction) Chronic atrial fibrillation Chronic anticoagulation Obesity CKD (chronic kidney disease) stage 3, GFR 30-59 ml/min Nephrolithiasis, uric acid Hyperlipidemia HTN (hypertension) A-fib GORDON (obstructive sleep apnea) COPD (chronic obstructive pulmonary disease) Pulmonary HTN Severe mitral regurgitation Thiamine deficiency Osteoporosis Surgical History Hx of hernia repair History of open reduction and internal fixation (ORIF) procedure Family History Family History Father No problems noted. Mother No problems noted. Maternal Aunt Breast cancer Social History Social History Household Members: Significant Other Housing: House Do you presently have visiting nurse or other home services: Yes Alcohol intake: never Patient Tobacco Use Status: Former Tobacco user Tobacco use type: Cigarette e-Cigarette/Vaping Use: Never Used Second Hand Smoke Exposure: No Currently Displaying Signs/Symptoms of Drug Intoxication Withdrawal: No Have you been hit, kicked, punched, or otherwise hurt by someone within the past year? If so, by whom?: No Do you feel safe in your current relationship?: Yes Is there a partner from a previous relationship who is making you feel unsafe now?: No Are you made to feel afraid or neglected: No Advance Directives: Yes Advance Directives on File: Yes Advance Directives Date on File: 11/28/23 Do you have a plan to hurt others: No Plan Recently lost weight without trying: Yes How much weight loss: 34pounds or more Eating poorly because of decreased appetite: Yes Nutrition screen score: 7 Nutrition Risks: No Nutritional Risk Patient : No : No Poor oral hygiene: No service: No Current occupational status: retired Cognitive needs: No Hearing needs: No Vision needs: No Physical Exam ED Vital Signs: Vital Signs - 24 hr 04/15/25 12:22 04/15/25 14:25 04/15/25 17:28 Temperature 97.6 F 98.1 F Pulse Rate 88 84 80 Respiratory Rate 18 18 16 Blood Pressure 97/46 L 103/55 L 107/63 Pulse Oximetry 98 99 98 Oxygen Delivery Method Room Air Room Air Room Air BMI result Body Mass Index 21.1 Appearance: Alert. Oriented X3. No acute distress. Eyes: Pupils equal, round and reactive to light. ENT: Pharynx dry MM no trauma noted I see no oneil or racoon sign. Neck: Normal inspection. Neck supple. CVS: Normal heart rate and rhythm. Pulses normal. Respiratory: No respiratory distress. Breath sounds normal. Abdomen: Soft and nontender. Skin: Skin warm and dry. pale skin color. Normal skin turgor. Extremities: No lower extremity edema. has wrapped legs, please see picture below Neuro: Oriented X 3. No motor deficit. No sensory deficit. Course Course Course Narrative: RME: 84 yold female presetns to the ED for elelvated INR of 8 done at home. Patient was sent to the ED. also patient fell 2 weeks ago and has had hip pain ever since. labs imaging ordered. Reevaluation(s) Reevaluation #1: signed out to Francisca Schmitt DO 04/15/25 1538 Reevaluation #2: 5:39 PM 04/15/2025 (Francisca Green PA-C): BNP notably elevated to 9268 > clinically the patient appears dry /not in fluid overload. Continuous fluids canceled. Pending imaging and UA. 1840--CT head/brain wo IV con IMPRESSION: No skull fracture or intracranial hemorrhage CT CERVICAL SPINE WO IV CON IMPRESSION: 1. No acute cervical spine fracture. 2. Enlarged heterogeneous thyroid gland containing multiple nodules. Consider further evaluation with ultrasound when clinically appropriate. CT chest wo IV con IMPRESSION: 1. There is an acute fracture of the T10 level involving the anterior and posterior cortices. Given ossification along the course of the anterior longitudinal ligament and a fracture line in the region of the ligament, injury to the anterior longitudinal ligament should be considered. This may potentially represent an unstable fracture. 2. There is a 12 mm left lower lobe nodule. Recommend three-month follow-up CT. 3. Multiple thyroid nodules. Recommend further evaluation with thyroid ultrasound when clinically appropriate > will consult [facility] thoracics CT abdomen pelvis wo IV con IMPRESSION: 1. No hemoperitoneum or abdominal organ injury. 2. There is a right-sided ureteral stent. There is mild right-sided pelviectasis and infiltration of fat adjacent to the right renal pelvis. Recommend correlation with urinalysis to exclude pyelonephritis. 3. There may be a mild degree of diverticulitis of the proximal sigmoid colon. 4. There are 2 small nonobstructive calculi within the right kidney. 1899--ED care transferred to Dr. PERAZA pending [facility] reccs and anticipated admission vs trabsfer Medications Administered Generic Name Dose Route Start Last Admin Trade Name Freq PRN Reason Stop Dose Admin Acetaminophen 650 mg 04/15/25 21:48 04/17/25 17:43 Acetaminophen 325 Mg Tablet PO 650 mg Q6H PRN Administration Pain, Mild 1-3,fever,headache Amiodarone HCl 200 mg 04/16/25 09:00 04/17/25 08:17 Amiodarone Hcl 200 Mg Tablet PO 200 mg DAILY VIOLETA Administration Atorvastatin Calcium 80 mg 04/16/25 09:00 04/17/25 08:17 Atorvastatin Calcium 80 Mg Tablet PO 80 mg DAILY VIOLETA Administration Furosemide 40 mg 04/17/25 09:00 04/17/25 08:17 Furosemide 40 Mg Tablet PO 40 mg BID VIOLETA Administration Protocol Ceftriaxone Sodium 1 gm/ 50 mls @ 100 mls/hr 04/15/25 22:00 04/16/25 21:47 Sodium Chloride IV Infused Q24H VIOLETA Infusion Lactated Ringer's 1,000 mls @ 50 mls/hr 04/16/25 13:30 04/17/25 14:25 Lr IVCONT 50 mls/hr .Q20H VIOLETA Administration Metronidazole 500 mg 04/15/25 22:00 04/17/25 14:13 Metronidazole 500 Mg Tablet PO 500 mg Q8H VIOLETA Administration Nystatin 1 appl 04/16/25 09:00 04/17/25 08:17 Nystatin Powder 15 Gm Bottle TOPICAL 1 appl BID VIOLETA Administration Protocol Omeprazole 20 mg 04/16/25 16:30 04/17/25 17:22 Omeprazole 20 Mg Capsule. PO 20 mg BID@0630,1630 VIOLETA Administration Sodium Chloride 3 ml 04/16/25 00:00 04/17/25 14:16 0.9 % Sodium Chloride Flush 3 Ml Syringe IVFLUSH 3 ml QSHIFT VIOLETA Administration Spironolactone 12.5 mg 04/16/25 09:00 04/16/25 09:45 Spironolactone 25 Mg Tablet PO Not Given On Hold: 04/16/25 12:09 DAILY [facility] Protocol Thiamine HCl 100 mg 04/17/25 09:00 04/17/25 08:17 Thiamine Hcl 100 Mg Tablet PO 100 mg DAILY VIOLETA Administration Warfarin Sodium 1.25 mg 04/17/25 18:00 04/17/25 17:41 Warfarin Sodium 1.25 Mg Halftab PO 1.25 mg MOWEFRSA@1800 VIOLETA Administration Discontinued Medications Generic Name Dose Route Start Last Admin Trade Name Freq PRN Reason Stop Dose Admin Sodium Chloride 250 mls @ 999 mls/hr 04/15/25 14:15 04/15/25 14:52 Ns IV 04/15/25 14:30 Infused .Q16M VIOLETA Infusion Sodium Chloride 1,000 mls @ 50 mls/hr 04/15/25 15:45 04/15/25 16:24 Ns IVCONT Infused .Q20H VIOLETA Infusion Dextrose 500 mls @ 0 mls/hr 04/16/25 08:52 04/16/25 13:27 D5w IV Infused .Q0M PRN Infusion Per Protocol KVO Vancomycin HCl 1,500 mg/ 500 mls @ 333.333 mls/hr 04/16/25 22:45 04/17/25 00:50 Sodium Chloride IV 04/17/25 00:14 Infused ONCE ONE Infusion Phytonadione 2.5 mg 04/15/25 14:26 04/15/25 14:34 Phytonadione (Vit K1) Oral 10 Mg/Ml Ampul PO 04/15/25 14:27 2.5 mg ONCE ONE Administration Phytonadione 5 mg 04/16/25 09:00 04/16/25 09:43 Phytonadione (Vit K1) Oral 10 Mg/Ml Ampul PO 04/16/25 09:01 5 mg ONCE ONE Administration Medical Decision Making Medical Decision Making MDM Narrative: 84 yo female with PMH of porcine MVR, GORDON on CPAP, CHF with EF 40%, CKD, renal colic with ureteral stones, HTN, HLD, afib on coumadin, osteoporosis here with c/o elevated INR but she denies any recent abx or change in medications. She notes nothing but mild hematuria this AM. She has no active bleeding on arrival. Clinically she looks very dry so I am concerned about dehydration even though EF is 40%. I gave 250 bolus as well as gentle rate of IVF. She has elevated INR > 10 with mild hematuria I am going to dose with PO vit K 2.5 and obtain CBC/INR. She did all and is > 80 with two falls at home. She denies LOC or headstrike and has mild L hip pain I plan to obtain CT scans for head trauma, neck trauma, L hip injury. She denies any other injury. I do not suspect CHF clinically she is very dry appearing. She has no CP/SOB. I am adding CPK as well. She is not safe to go home regardless of work up and if she is medically cleared will need STR. based off guidelines with INR > 10 and mild hematuria will give low dose Vit K. I took over the case at the change of shift. patient case discussed with ananda Das on-call for spine at [facility]. He consulted with his attending the neurosurgeon on-call. [place] the thoracic spine was stable. Patient has acute renal insufficiency. Significantly elevated INR that will require further workup. Case consulted by the hospitalist team. Patient to be admitted. Differential Diagnosis Differential Diagnoses: The differential diagnosis associated with the presentation includes dehydration, bleeding, trauma, elevated INR Admission/Observation Consideration of admission/observation: Escalation of care including admission/observation considered Consult Healthcare Provider Management of the patient was discussed with: Hospitalist and Debate Director (Neurosurgery at [facility].) I consulted with Neurosurgery felt the thoracic fracture is stable. I discussed with the hospitalist team for the admission Lab Data MDM Lab Attestation statement: I reviewed the patient's lab results. H/H stable but she is ARIADNA on CKD. INR 10.5 with mild hematuria at this time will give oral Vit K 2.5 mg based off guideline reccs 04/17/25 07:13 04/17/25 07:13 Labs: Lab Results 04/15/25 04/15/25 04/15/25 Range/Units 13:12 13:38 18:36 WBC 6.7 (4.8-10.8) X10*3/uL RBC 4.66 D (4.20-5.50) X10*6/uL Hgb 13.1 D (12.0-16.0) g/dl Hct 41.3 D (37.0-47.0) % MCV 88.6 (80.0-98.0) fL MCH 28.1 (27.0-33.0) pg MCHC 31.7 (31.0-35.0) g/dl RDW 16.1 H (11.0-16.0) % Plt Count 187 (160-400) X10*3/uL MPV 10.0 (9.4-12.3) fL Immature Gran % (Auto) 0.3 (0.0-0.4) % Neut % (Auto) 75.5 H (45-73) % Lymph % (Auto) 16.6 L (20-40) % [place] % (Auto) 6.4 (2-11) % Eos % (Auto) 0.9 (0-4) % Baso % (Auto) 0.3 (0-2) % Lymph # (Auto) 1.1 L (1.2-4.9) X10*3/uL [place] # (Auto) 0.4 (0.1-1.2) X10*3/uL Eos # (Auto) 0.1 (0.0-0.4) X10*3/uL Baso # (Auto) 0.0 (0.0-0.2) X10*3/uL Abs Immat Gran (auto) 0.02 (0.00-0.03) X10*3/uL Absolute Neuts (auto) 5.1 (2.0-8.3) x10*3/uL Absolute Nucleated RBC 0.000 (0.0-0.012) X10*3/uL Nucleated RBC % (auto) 0.0 (0.0-0.2) /100WBC PT 121.1 H (11.2-13.5) SEC INR 10.5 H* D (0.9-1.1) APTT 54.6 H (26.7-34.1) SEC Sodium 141 (135-145) mmol/L Potassium 5.3 H (3.3-5.1) mmol/L Chloride 113 H (96-108) mmol/L Carbon Dioxide 20 L (22-29) mmol/L Anion Gap 13 (12-20) BUN 71 H (9-16) mg/dL Creatinine 2.71 H (0.5-1.4) mg/dL Estim Creat Clear Calc 15.5 Estimated GFR 17 Random Glucose 102 (60-115) mg/dL Calcium 9.7 D (8.4-10.2) mg/dL Total Bilirubin 0.6 (0.0-1.0) mg/dL AST 32 H (5-31) U/L ALT 21 (0-31) U/L Alkaline Phosphatase 119 H (39-117) U/L Total Creatine Kinase 72 (26-140) U/L NT-Pro-B Natriuret Pep 9268.5 H (<300) pg/mL Total Protein 6.5 (6.5-8.0) g/dL Albumin 3.8 (3.5-5.0) g/dL Urine Color [place] A Urine Appearance Turbid Urine pH 5.0 (5.0-9.0) Ur Specific [place] 1.010 (1.005-1.025) Urine Protein 100 (2+) H (Neg-Trace) mg/dL Urine Glucose (UA) Negative (Negative) mg/dL Urine Ketones Negative (Negative) mg/dL Urine Blood Large (3+) H (Negative) Urine Nitrite Positive H (Negative) Ur Leukocyte Esterase Large (3+) H (Negative) Urine RBC >20 H (0-2) /HPF Urine WBC >50 H (0-5) /HPF Ur Squamous Epith Cells 0-2 (0-2) /HPF Urine Bacteria 3+ (None Seen) Hyaline Casts 0-2 (0-2) /LPF Blood Type A Positive Antibody Screen NEGATIVE Independent Interpretation I performed an independent interpretation of an: EKG and CT Scan Interpretation: Rate: Rhythm: Ferdinand: Normal P waves. Normal ADRIANA. Normal QRS complex. ST T wave : qTC: prior studies: The study has been interpreted contemporaneously by me. . Independent Historian Clinical information obtained from an independent historian. History obtained from or confirmed by: Other External Record Review External record reviewed: Inpatient record, Outpatient record and Prior outpatient labs Critical Care Time Critical Care Time Critical Care Time: Yes Total Critical Care Time: 40 Attestation: I have personally provided 40 minutes of critical care time exclusive of time spent on separately billable procedures. Time includes review of lab data, radiology results, discussion with consultants, and monitoring for potential decompensation. Interventions were performed as documented above Discharge Plan Discharge Clinical Impression: Acute kidney injury superimposed on chronic kidney disease, Elevated INR Patient Disposition: Admitted As Inpatient Interventions: Admission Worksheet (ED) Last Done: 04/16/25 00:04 Discharge Date/Time: 04/16/25 00:35
[2025-04-15 13:21] LABS: MANUAL DIFF FLAG NO
[2025-04-15 13:25] LABS: Hematocrit 41.3 % (37.0-47.0); Hemoglobin 13.1 g/dl (12.0-16.0); Imm Gran Abs Auto 0.02 X10*3/uL (0.00-0.03); Imm Gran Pct Auto 0.3 % (0.0-0.4); Lymphocytes Absolute Auto 1.1 X10*3/uL (1.2-4.9); Mean Corpuscular HGB Conc 31.7 g/dl (31.0-35.0); Mean Corpuscular Hemoglobin 28.1 pg (27.0-33.0); Mean Corpuscular Volume 88.6 fL (80.0-98.0); NRBC Abs Auto 0.000 X10*3/uL (0.0-0.012); NRBC Pct Auto 0.0 /100WBC (0.0-0.2); Platelet Count 187 X10*3/uL (160-400); Red Blood Count 4.66 X10*6/uL (4.20-5.50); White Blood Count 6.7 X10*3/uL (4.8-10.8)
[2025-04-15 13:42] LABS: Alanine Aminotransferase 21 U/L (0-31); Albumin Level 3.8 g/dL (3.5-5.0); Alkaline Phosphatase 119 U/L (39-117); Anion Gap 13 (12-20); Aspartate Amino Transferase 32 U/L (5-31); Blood Urea Nitrogen 71 mg/dL (9-16); Calcium 9.7 mg/dL (8.4-10.2); Carbon Dioxide 20 mmol/L (22-29); Chloride 113 mmol/L (96-108); Creatinine Clr Calc Pharmacy 15.5; Estimated Glomerular Filt Rate 17; Partial Thromboplastin Time 54.6 SEC (26.7-34.1); Potassium 5.3 mmol/L (3.3-5.1); Sodium 141 mmol/L (135-145); Total Protein 6.5 g/dL (6.5-8.0)
[2025-04-15 13:46] LABS: Prothrombin Time 121.1 SEC (11.2-13.5)
[2025-04-15 13:54] LABS: INTERNATIONAL NORM RATIO 10.5 (0.9-1.1)
--- NOTE | 2025-04-15 14:14 | PC.NURSE ---
Assisted patient to bathroom to attempt to obtain urine sample. Urine sample not obtained. Notified patient to let us know when she has to urinate to obtain urine sample. Patient resting in room, states she is comfortable. Call valentine within reach, patient educated on how to use it.
[2025-04-15 14:25] VITALS: BP 103/55; PULSE 84; RESP 18; O2SAT 99
[2025-04-15] MEDS: Phytonadione (Vit K1) Oral 10 MG/ML AMPUL 2.5 MG PO (14:34)
--- NOTE | 2025-04-15 15:38 | ECG_ITS ---
Test Reason : WEAKNESS Blood Pressure : */* mmHG Vent. Rate : 81 BPM Atrial Rate : 81 BPM P-R Int : * ms QRS Dur : 114 ms QT Int : 422 ms P-R-T Axes : * 119 0 degrees QTcB Int : 490 ms Normal sinus rhythm Ventricular-paced rhythm Abnormal ECG When compared with ECG of 09-Jan-2025 11:54, Vent. rate has decreased by 3 bpm Referred By: Lakshmi Schmitt Electronically Signed By: CARMITA ROCHA MD
--- OUTSIDE RECORDS SUMMARY | 2025-04-15 16:26 | XMS_ITS | Data Portability ---
Author Organization [facility], Main Office Address [address] [facility] [address] [place] [address] Care Team Providers Care Oiler Bander Name Role Phone LANDON FREY 1ST FLOOR OTHER Assessment Encounter Date Assessment Date Assessment LastModified by Organization Details LastModified Time 01/17/2018 01/17/2018 01/13/18 WBC 4.3, Hgb 11.8, Hct 35.1, Na 141, K 3.6, BUN 12, Clinical Resource Coordinator 0.62 [email or web address] Not available 01/17/2018 11:17:28 01/22/2018 01/22/201801/13: na 141, k 3.6, bun 12, creat 0.62, wbc 4.3, hgb 11.8, hct 35.1 glord Not available 01/22/2018 15:24:19 01/27/2018 01/27/2018 01/27/18 WBC 5.4, Hgb 13.7, Hct 41.3, Na 142, K 3.9, BUN 12, Clinical Resource Coordinator 0.59 [email or web address] Not available 01/27/2018 17:03:47 02/05/2018 02/05/201802/03: na 143, k 3.7, bun 15, creat 0.66, wbc 4.2, hgb 11.5, hct 35.2 glord Not available 02/05/2018 14:14:26 02/07/2018 02/07/2018 02/03/18 WBC 4.2, Hgb 11.5, Hct 35.2, Na 143, K 3.7, BUN 15, Clinical Resource Coordinator 0.66 [email or web address] Not available 02/07/2018 16:44:48 Plan [...] Address Organization Details Recorded Time Pulmonary hypertension 62511444 Active [address], [address], [place], [address], [employer] 8 16:34:20 Obstructive sleep apnea syndrome 34497510 Active [address], [address], [place], [address], [employer] 8 16:34:24 Mitral valve regurgitation 64101217 Active [address], [address], [place], [address], [employer] 8 16:34:38 Aortic valve regurgitation 73535783 Active [address], [address], [place], [address], [employer] 8 16:34:44 Fracture of shaft of femur 07787691 Active [address], [address], [place], [address], [employer] 8 16:35:57 Essential hypertension 70022731 Active [address], [address], [place], [address], [employer] 8 16:36:05 Chronic disease of respiratory system 60598523 Active [address], [address], [place], [address], [employer] 8 16:36:13 Gout 28857282 Active [address], [address], [place], [address], [employer] 8 16:44:07 Wjohz-wt-pelou ic respiratory failure 06909888 Active 2017 Sho Houser MD [address] [facility], [address], [place], [address], [employer] 8 20:08:21 Fracture of shaft of femur 17725691 Active 2017 Sho Houser MD [address] [facility], [address], [place], [address], [employer] 8 20:11:04 Solitary nodule of lung 725511734 Active 2017 Sho Houser MD [address] [facility], [address], [place], [address], [employer] 8 20:17:21 Mixed hyperlipidemia 337902195 Active 2017 Sho Houser MD [address] [place] [address], [facility] [address], [place], [address], [employer] 8 20:19:54 Problem Notes None recorded. Medical Equipment None Reported. Allergies Allergen ID Allergen Name Allergen Category Reaction Reaction Severity Criticality Documentation Date Start Date Code Code System Note Provider Name and Address Organization Details Recorded Time 01562 acetamino phen / hydrocodo ne medicatio n Not available Not available Not available 12/18/2017 [address], [facility] [address], [place], [address], [employer] 8 16:34:03 Vitals Date Recorded Body height Body temperature Heart rate Respiratory rate Oxygen saturation Oxygen saturation in Arterial blood by Pulse oximetry Systolic And Diastolic Provider Name and Address Organization Details Last Updated DateTime 8 163.07 cm 97.4 [degF] 80 /min 18 /min 93 % 93 % 138/62 mm[Hg] VANESSA HARDEN [address] [facility], [address], [place], [address], [employer] 8 11:11:37 Date Recorded Body height Heart rate Respiratory rate Provider Name and Address Organization Details Last Updated DateTime 01/22/2018 163.07 cm 72 /min 16 /min LIGIA [address], [address], [place], [address], [employer] [facility] 01/22/2018 15:29:09 Date Recorded Body height Body temperature Heart rate Respiratory rate Oxygen saturation Oxygen saturation in Arterial blood by Pulse oximetry Systolic And Diastolic Provider Name and Address Organization Details Last Updated DateTime 8 163.07 cm 97.2 [degF] 68 /min 18 /min 94 % 94 % 106/49 mm[Hg] JOSUE FERRERAVANESSA SCHULTZ [address] [facility], [address], [place], [address], [employer] [facility] 8 16:58:27 Date Recorded Body height Heart rate Respiratory rate Body temperature Provider Name and Address Organization Details Last Updated DateTime 02/05/2018 163.07 cm 70 /min 16 /min 97.1 [degF] LIGIA LEMUS [address] [facility], [address], [place], [address] , [employer] 02/05/2018 14:25:46 Date Recorded Body height Heart rate Respiratory rate Body temperature Oxygen saturation Oxygen saturation in Arterial blood by Pulse oximetry Systolic And Diastolic Provider Name and Address Organization Details Last Updated DateTime 8 163.07 cm 61 /min 18 /min 98.1 [degF] 98 % 98 % 116/56 mm[Hg] VANESSA HARDEN [address] [facility], [address], [place], [address], [employer] [facility] 8 16:42:44 Social History Question Answer Notes LastModified by Organizat ion Details LastModified Time Tobacco Smoking Status Unknown If Ever Smoked Not Available [facility] 03/29/2020 03:13:20 Do You Have An Advance Directive? Yes Full Code [id number] Information not available 03/29/2020 What Was The Date Of Your Most Recent Tobacco Screening? 02/07/2018 [id number] Information not available 03/29/2020 Sex: Unknown Functional Status None recorded. Mental Status None recorded. Family History Nothing Reported. Medical History No medical history recorded. Gynecological HistoryNo gynecological history recorded. Obstetrics History GPAL:G 0 P 0 0 0 0 Past Encounters Encounter ID Performer Location Encounter Start Date Encounter Closed Date Diagnosis/Indication Diagnosis SNOMED-CT Code Diagnosis ICD10 Code Diagnosis IMO Codes Diagnosis Note [id number] LIGIA LEMUS LANDON SHANTE [address] [facility] [place] [address] 12/18/2017 16:36:21 12/23/2017 16:12:52 Pulmonary hypertension 91540142 I27.0 lasix 40 mg dailyfollo w up with cards in 1-2 weeksObtai n follow up chest xray in 1 week to see if pulm edema has resolvedco nt. 02 PRN to keep sats above 92% Fracture o f shaft of femur 87429347 S72.324D Tylenol 650 mg TID scheduledP ercocet PRN for severe painPT/OT eval and treatbrace on right knee at all times Essential hypertension 70689438 I10 Continue atenolol 50 mg dailylosar infante 100 mg dailyamlod ipine 5 mg dailynitro 0.4 sl prnmonitor bps daily Gout 71079566 M10.061 allopurino l 100 mg dailyasa 81 mg daily [id number] Sho Houser MD [facility] [address] [facility] [place] [address] 12/19/2017 17:49:22 12/24/2017 08:23:57 Pulmonary hypertension 33728331 I27.0 As above, also on lasix 40 mg qd with KCl 10 meq BID. Will f/u with cardio as planned, may need MVR, as this is thought part of the reason for her pulmonary HTN. Will repeat CXR next week to reassess pulmonary edema.Cont . 02 as above. Fracture o f shaft of femur 37902573 S72.324D Will need PT/OT for strengthen ing [...] times. F/U ortho as planned. Essential hypertension 54154258 I10 Good control on atenolol 50 mg qd, losartan 100 mg qd, amlodipine 5 mg qd and nitro 0.4 sl prnMonitor BP and labs. Gout 89512296 M10.061 Continue allopurino l 100 mg qd. Monitor for sxs. Solitary n odule of lung 335426705 R91.1 Will f/u with pulmonary for assessment . Acute-on-c hronic respiratory failure 77633346 J96.21 J96.12 On O2 at baseline, with acute worsening inpt. likely secondary to pulmonary HTN (see below). Continue O2 by NC, titrated to keep sats above between 90-94% so as not to induce hypercapni a. Will f/u with pulmonary and cardio. Obstructiv e sleep apnea syndrome 71667990 G47.33 Continue CPAP as usual. Mixed hyperlipidemia 267 050493 E78.2 Continue atorvastat in 80 mg qd and ASA 81 mg qd. Monitor labs as outpt. [id number] VANESSA HARDEN [facility] SHANTE [address] [place] [address] 12/27/2017 17:27:17 01/02/2018 15:17:31 Chronic disease of respiratory system 88306115 J98.9 she has not needed her oxygen at this time but knows she can use it if neededshe is seeing pulmonolog y on saturday for a follow up Obstructiv e sleep apnea syndrome 87324878 G47.33 she feels her cpap is not working rightwill order oxygen 2 liters via nc at night for nowmonitor Fracture o f shaft of femur 64355372 S72.8X1S continues with lidoderm patches on right legsees ortho next weekawaiti ng decision about next stepcontin ues non weight bearing status [id number] Sal Esparza MD [address] [address] 01/15/2018 10:09:17 01/28/2018 13:33:13 Fracture of shaft of femur 70823573 S72.391D inform ortho of eventxray at facility to reeval [id number] VANESSA HARDEN [address] [address] 01/17/2018 11:10:56 01/28/2018 13:53:07 Essential hypertension 87889449 I10 norvasc 5 mg qdatenolol 50 mg qdlasix 40 mg qdlosartan potassium 100 mg qdmonitor b/p and labs Chronic di sease of respiratory system 21780997 J98.9 she follows with pulmonolog yshe uses oxygen as neededmoni tor respirator y status Fracture o f shaft of femur 44906078 S72.8X1S continues with lidoderm patches on right leg non weight bearing status follows with orthofelt she hurt it worsex-ray was negative and said there was the healing fracturewa nts CT results from ortho but doesn't see them til 30 thmonitor [id number] LIGIA FREY [address] [place] [address] 01/22/2018 15:15:11 01/28/2018 14:03:23 Essential hypertension 78335760 I10 norvasc 5 mg qdatenolol 50 mg qdlasix 40 mg qdlosartan potassium 100 mg qdmonitor b/p and labs Chronic di sease of respiratory system 10590705 J98.9 Follows with pulmonolog yCPAP at bedtime while sleeping she uses oxygen as neededmoni tor respirator y status Fracture o f shaft of femur 02571912 S72.8X1S continues with lidoderm patches on right leg non weight bearing status, toe touch only follow up with ortho this saturday to determine weight bearing statusmoni tor for pain controltyl enol 650 mg q 8 hours PRN [id number] VANESSA HARDEN [address] [place] [address] 01/27/2018 16:57:24 02/12/2018 08:38:08 Fracture of shaft of femur 16710047 S72.8X1S continues with lidoderm patches on right legfollows with orthotoe touch allowedhom e visit this weekcontin ues with therapy Essential hypertension 83019995 I10 norvasc 5 mg qdatenolol 50 mg qdlasix 40 mg qdlosartan potassium 100 mg qdmonitor b/p and labs Mixed hyperlipidemia 267 692778 E78.2 carries diagnosisn ot on medication monitor labs [id number] LIGIA LEMUS [place] [address] [place] [address] 02/05/2018 14:10:52 02/12/2018 11:56:12 Fracture of shaft of femur 44906991 S72.8X1S continues with lidoderm patches on right legfollows with ortho in 4 weekstoe touch allowed only at this timecontin ues with therapyHom e eval went well, question possible discharge by the end of this week D/C colace 100 mg daily due to loose stools Essential hypertension 06490625 I10 norvasc 5 mg qdatenolol 50 mg qdlasix 40 mg qdlosartan potassium 100 mg qdmonitor b/p and labs [id number] VANESSA HARDEN [address] [place] [address] rd [place] [address] 02/07/2018 16:41:46 02/12/2018 12:03:29 Fracture of shaft of femur 25687642 S72.8X1S continues with lidoderm patches on right legfollows with orthotoe touch allowedtyl enol 650 mg q 8 hrspercoce t q 4 hrs prnfollow up with ortho Essential hypertension 51925448 I10 ASA 81 mgnorvasc 5 mg qdatenolol 50 mg qdlasix 40 mg qdpotassiu m 10 meq qdlosartan potassium 100 mg qdfollow up with PCP Mixed hyperlipidemia 267 711692 E78.2 atorvastat in 80 mg qd follow up with PCP Obstructiv e sleep apnea syndrome 24189250 G47.33 continue home CPAPfollow up with PCP Gout 04776490 M10.49 allopurino l 100 mg qdfollow up with PCP Chronic di sease of respiratory system 33233765 J98.9 she follows with pulmonolog yshe uses [...] 2 [place] [employer] [place] [employer] Ramona Pinon [id number] Ramona Pinon 02/05/2018 1 [place] Ramona Escalona Kathrin [id number] Ramona Pinon Notes Date Note Type Note [...] been working with therapy. VANESSA HARDEN [address] [facility], [address], [place], [address], [facility] [employer] 01/17/2018 11:55:52 01/22/2018 text/html A 77 year old female being seen today for acute rounding visit. Pt has follow up with ortho this saturday to determine if she can move to weight bearing status. Otherwise she has no new health concerns at this time. LIGIA LEMUS [address] [place] [address], [address], [place], [address], [facility] [employer] 01/22/2018 15:31:01 01/27/2018 text/html A 77 year old female being seen for a acute rounding visit. She has been working with therapy and will have a home visit soon. She is toe touch at this time. She sees ortho in 5 weeks. Staff notes no concerns at this time. VANESSA HARDEN [address] [facility], [address], [place], [address], [employer] 01/27/2018 17:14:53 02/05/2018 text/html A 77 year [...] except for loose stool often. LIGIA LEMUS [address] [place] [address], [address], [place], [address], [facility] [employer] 02/05/2018 14:25:49 02/07/2018 text/html A 77 year [...] disease and pulmonary hypertension. VANESSA HARDEN [address] [facility], [address], [place], [address], [facility] 02/07/2018 16:59:57 OBGyn Episode No OBEpisode recorded.
[2025-04-15 17:28] VITALS: BP 107/63; PULSE 80; RESP 16; TEMP 36.7; O2SAT 98
[2025-04-15 19:08] LABS: Appearance Urine Turbid; Glucose Urine UA Negative (Negative); PH 5.0 (5.0-9.0); Specific Gravity - Urine 1.010 (1.005-1.025); UACC Culture Trigger YES; UMIC TRIGGER UACC YES
--- NOTE | 2025-04-15 19:43 | PC.NURSE ---
this rn assumed care of pt, pt resting in stretcher, no acute distress noted. family at bedside.
[2025-04-15 20:29] VITALS: BP 106/57; PULSE 73; RESP 14; TEMP 36.6; O2SAT 96
--- NOTE | 2025-04-15 21:57 | PM.IMHP ---
History of Present Illness Date of Service: 04/15/25 Attending physician on admission: Vipul Vega Chief Complaint: supratherapeutic INR Patient is an 84-year-old female with a past medical history significant for paroxysmal AFib on Coumadin, history of porcine mitral valve replacement, AICD/pacemaker, GORDON on CPAP, HFrEF (last EF 20%), CKD, nephrolithiasis with right ureteral stent placed 1.5 years ago, hypertension, HLD, pulmonary hypertension, who presented to the ED due to a [facility]. INR here is 10.2. The patient reports 1 episode of hematuria this morning, does have right ureteral stent placed 1.5 years ago. She reports that she has been trying to get the stent removed 4 months however keeps having different medical issues postponing the stent removal. She is unsure who her urologist is. Most recently she had an AICD/pacemaker placed at [facility] which was to be done prior to her stent removal. She also reports left lower quadrant discomfort, mostly in the groin region. Has had issues with alternating constipation and diarrhea. No fever, chills, nausea or vomiting. She reports mild shortness of breath for the past 1-2 weeks, no cough or URI symptoms. Review of Systems Constitutional: Constitutional: Denies body ache(s), Denies chills, Denies fatigue, Denies fever(s) and Denies headache(s) Eyes: Eyes: Denies change in vision ENT: Denies headache(s), Denies nasal congestion and Denies sore throat Cardiovascular: Cardiovascular: Denies chest pain, Denies rapid heart rate, Denies leg edema, Denies lightheadedness and Reports dyspnea Respiratory: Respiratory: Denies chest congestion, Denies cough, Reports dyspnea and Denies wheezing Gastrointestinal: Gastrointestinal: Denies abdominal pain, Denies nausea and Denies vomiting Genitourinary: Genitourinary: Reports as per HPI Musculoskeletal: Musculoskeletal: Denies myalgias Integumentary/Breasts: Skin/Breast: Denies rash Neurologic: Denies confusion and Denies headache(s) Psychiatric: Psychiatric: Denies confusion Endocrine: Endocrine: Denies fatigue Hematologic/Lymphatic: Hematologic/Lymphatic: Denies easy bleeding Allergic/Immunologic: Allergic/Immunologic: Denies wheezing [facility] Medical History HFrEF (heart failure with reduced ejection fraction) Chronic atrial fibrillation Chronic anticoagulation Obesity CKD (chronic kidney disease) stage 3, GFR 30-59 ml/min Nephrolithiasis, uric acid Hyperlipidemia HTN (hypertension) A-fib GORDON (obstructive sleep apnea) COPD (chronic obstructive pulmonary disease) Pulmonary HTN Severe mitral regurgitation Thiamine deficiency Osteoporosis Functional capacity: independent ambulation Family History Father No problems noted. Mother No problems noted. Maternal Aunt Breast cancer Surgical History Hx of hernia repair History of open reduction and internal fixation (ORIF) procedure Social History Household Members: Spouse Housing: House Do you presently have visiting nurse or other home services: Yes (poor historian unable to answer.) Alcohol intake: never Patient Tobacco Use Status: Former Tobacco user Tobacco use type: Cigarette e-Cigarette/Vaping Use: Never Used Second Hand Smoke Exposure: No Advance Directives: Yes Advance Directives on File: Yes Advance Directives Date on File: 11/28/23 service: No Current occupational status: retired Cognitive needs: No Hearing needs: No Vision needs: No Meds Allergies Allergy/AdvReac Type Severity Reaction Status Date / Time hydrocodone (From Vicodin) Allergy Mild CHEST PAIN Verified 04/15/25 12:26 Active Medications: Current Medications Acetaminophen (Acetaminophen 325 Mg Tablet) 650 mg PO Q6H PRN PRN Reason: Pain, Mild 1-3,fever,headache Calcium Carbonate (Calcium Carbonate 750 Mg Tab.Chew) 750 mg PO Q4H PRN PRN Reason: Heartburn Ceftriaxone Sodium 1 gm/ (Sodium Chloride) 50 mls @ 100 mls/hr IV Q24H VIOLETA Magnesium Hydroxide (Milk Of Magnesia 30 Ml Oral.Susp) 30 ml PO DAILY PRN PRN Reason: Constipation Melatonin (Melatonin 3 Mg Tablet) 6 mg PO BEDTIME PRN PRN Reason: Insomnia Metronidazole (Metronidazole 500 Mg Tablet) 500 mg PO Q8H VIOLETA Oxycodone HCl (Oxycodone Hcl Immed Release 5 Mg Tablet) 5 mg PO Q6H PRN PRN Reason: Pain, Severe (Pain Scale 7-10) Sodium Chloride (0.9 % Sodium Chloride Flush 3 Ml Syringe) 3 ml IVFLUSH QSHIFT [facility] Tramadol HCl (Tramadol Hcl 50 Mg Tablet) 50 mg PO Q6H PRN PRN Reason: Pain, Moderate(Pain Scale 4-6) Home Medications ?Medication ?Instructions ?Recorded ?Confirmed ?Last Taken ?Type ascorbate calcium (vitamin C) 500 500 mg PO DAILY 01/04/23 04/15/25 12/07/24 History mg tablet [id number]-Kg-luiz-minerals 1 tab PO DAILY 01/04/23 04/15/25 12/07/24 History zinc gluconate 50 mg tablet 50 mg PO DAILY 01/04/23 04/15/25 12/07/24 History acetaminophen 325 mg capsule 650 mg PO Q8H PRN Pain 01/20/24 04/15/25 Unknown History amiodarone 200 mg tablet 200 mg PO DAILY 07/27/24 04/15/25 04/15/25 History omeprazole 20 mg capsule,delayed 20 mg PO BID@0630,1630 12/07/24 04/15/25 04/15/25 History release VITAMIN D 3 PO 01/12/25 04/15/25 Unknown History thiamine HCl (vitamin B1) 100 mg 100 mg PO DAILY 01/12/25 04/15/25 Unknown History capsule warfarin 2.5 mg tablet 2.5 mg PO SUTUTH@1800 01/12/25 04/15/25 04/13/25 History amlodipine 5 mg tablet 5 mg PO DAILY 04/15/25 04/15/25 04/15/25 History carvedilol 12.5 mg tablet 12.5 mg PO BID 04/15/25 04/15/25 04/15/25 History furosemide 40 mg tablet (Lasix) 80 mg PO BID 04/15/25 Unknown History umeclidinium 62.5 mcg-vilanterol 1 inh inhalation DAILY 04/15/25 04/15/25 History 25 mcg/actuation powdr for inhalation (Anoro Ellipta) warfarin 2.5 mg tablet 1.25 mg PO MOWEFRSA@1800 04/15/25 04/15/25 04/14/25 History Physical Exam Vital Signs and Narrative: Vital Signs: Last Vital Signs Temp 97.8 F 04/15/25 20:29 Pulse 73 04/15/25 20:29 Resp 14 04/15/25 20:29 BP 106/57 L 04/15/25 20:29 Pulse Ox 96 04/15/25 20:29 O2 Del Method Room Air 04/15/25 20:29 BMI result Body Mass Index 21.1 General: AOx3, no acute distress, poor historian Resp: CTA bilaterally, no crackles or wheezing CVS: S1, S2, RRR GI: +BS, LLQ tenderness with light palpation, no distention Skin: Warm, dry Neuro: Cranial nerves II-XII grossly intact bilaterally. Motor grossly intact bilaterally Extremities: No pitting edema Psych: Appropriate affect Const: General: No confusion Orientation/consciousness: No confusion Neuro: General: No confusion Results Labs 04/15/25 13:12 04/15/25 13:12 Labs: Laboratory Results - last 24 hr 04/15/25 04/15/25 04/15/25 13:12 13:38 18:36 MCV 88.6 MCH 28.1 MCHC 31.7 RDW 16.1 H Plt Count 187 MPV 10.0 Immature Gran % (Auto) 0.3 Neut % (Auto) 75.5 H Lymph % (Auto) 16.6 L [place] % (Auto) 6.4 Eos % (Auto) 0.9 Baso % (Auto) 0.3 Lymph # (Auto) 1.1 L [place] # (Auto) 0.4 Eos # (Auto) 0.1 Baso # (Auto) 0.0 Abs Immat Gran (auto) 0.02 Absolute Neuts (auto) 5.1 Absolute Nucleated RBC 0.000 Nucleated RBC % (auto) 0.0 PT 121.1 H INR 10.5 H* D APTT 54.6 H Anion Gap 13 Estim Creat Clear Calc 15.5 Estimated GFR 17 Random Glucose 102 Lactic Acid Calcium 9.7 D Total Bilirubin 0.6 AST 32 H ALT 21 Alkaline Phosphatase 119 H Total Creatine Kinase 72 NT-Pro-B Natriuret Pep 9268.5 H Total Protein 6.5 Albumin 3.8 Urine Color [place] A Urine Appearance Turbid Urine pH 5.0 Ur Specific [place] 1.010 Urine Protein 100 (2+) H Urine Glucose (UA) Negative Urine Ketones Negative Urine Blood Large (3+) H Urine Nitrite Positive H Ur Leukocyte Esterase Large (3+) H Urine RBC >20 H Urine WBC >50 H Ur Squamous Epith Cells 0-2 Urine Bacteria 3+ Hyaline Casts 0-2 Blood Type A Positive Antibody Screen NEGATIVE 04/15/25 20:28 MCV MCH MCHC RDW Plt Count MPV Immature Gran % (Auto) Neut % (Auto) Lymph % (Auto) [place] % (Auto) Eos % (Auto) Baso % (Auto) Lymph # (Auto) [place] # (Auto) Eos # (Auto) Baso # (Auto) Abs Immat Gran (auto) Absolute Neuts (auto) Absolute Nucleated RBC Nucleated RBC % (auto) PT INR APTT Anion Gap Estim Creat Clear Calc Estimated GFR Random Glucose Lactic Acid 0.8 Calcium Total Bilirubin AST ALT Alkaline Phosphatase Total Creatine Kinase NT-Pro-B Natriuret Pep Total Protein Albumin Urine Color Urine Appearance Urine pH Ur Specific [place] Urine Protein Urine Glucose (UA) Urine Ketones Urine Blood Urine Nitrite Ur Leukocyte Esterase Urine RBC Urine WBC Ur Squamous Epith Cells Urine Bacteria Hyaline Casts Blood Type Antibody Screen Assessment and Plan (1) Supratherapeutic INR: Status: Acute (2) Pyelonephritis: Status: Acute (3) Sigmoid diverticulitis: Status: Acute (4) Acute kidney injury superimposed on chronic kidney disease: Status: Acute (5) Acute hyperkalemia: Status: Acute (6) Prolonged QT interval: Status: Acute (7) Lung nodule: Status: Acute (8) Thyroid nodule incidentally noted on imaging study: Status: Acute Plan Patient is an 84-year-old female with a past medical history significant for paroxysmal AFib on Coumadin, history of porcine mitral valve replacement, AICD/pacemaker, GORDON on CPAP, HFrEF (last EF 20%), CKD, nephrolithiasis with right ureteral stent placed 1.5 years ago, hypertension, HLD, pulmonary hypertension, who presented to the ED due to a [facility]. INR here is 10.2. Pt noted fall with findings of T10 fx, acute pyelo, sigmoid diverticultis, lung nodule and thyroid nodules on imaging supratherpeutic INR - vit K x1 dose in ED - monitor PT/INR - hold coumadin acute pyelonephritis with R ureteral stent - ceftriaxone pending urine culture - urology consult, stent present x1.5 years, never changed per pt - monitor CBC and BMP sigmoid diverticulitis on CT - pt reporting LLQ pain and bowel irregularity - ceftriaxone and flagyl - clear liquid diet ARIADNA on CKD - IVF given - avoid nephrotoxins - monitor cr acute hyperkalemia, prolonged QTC - mild hyperkalemia, likely resolved with IVF - recheck BMP now - repeat EKG when lytes normalized T10 fracture on CT - ED provider spoke with [facility] neurosurgery who suggested fx appears stable, no need for transfer - pain management - ortho consult lung nodule on CT - repeat chest CT in 3 mo outpt thyroid nodules on CT - f/u output for thyroid US paroxysmal a fib - amiodarone and metoprolol, hold metoprolol if SBP <90 - hold coumadin GORDON - CPAP at bedtime HFrEF, no acute exacerbation - BNP around baseline, no evidence of fluid overload - continue spironolactone - limit IVF - monitor for fluid overload HTN - hold amlodipine, lisinopril, carvidelol HLD - hold statin due to ARIADNA med rec pending DNI VTE prophy: SCDs Pt with supra therapeutic INR, found to have T10 fracture, acute pyelonephritis and diverticulitis on imaging, requiring admission for at least 2 midnight stay stabilization of INR, IV antibiotics, specialist consultations and monitoring. Quality Stroke Does the patient have a stroke diagnosis?: No VTE Prior VTE?: No VTE Risk Level:: Medical - moderate - high VTE Device Contraindication: N/A - Device Ordered VTE Drug Contraindication: Treatment Not Indicated
--- NOTE | 2025-04-15 22:05 | PHA.MEDREC ---
Addendum entered by Mayi Cates [facility] 04/16/25 11:23: Britton also confirmed that patient takes potassium chloride ER 1500 mg daily (over the counter purchase). Addendum entered by Mayi Cates [facility] 04/16/25 11:19: Spoke to A office, Dr. Macedo's office [phone], patient and britton Dean [phone] who are all not sure if patient is still using Anoro (she has been to different rehabs and record is not clear if she is still taking it or not). Otherwise, britton Dean was able to confirm dose of furosemide is 40 mg bid, all her OTCs and her warfarin doses. Addendum entered by Faby Smith [facility] 04/15/25 22:33: reviewed, will have AM follow up on whole med rec tomorrow. Original Note: Pharmacy Consult ? Medication Reconciliation Pharmacy has completed the medication reconciliation. Utilized list from [facility] services. No OTC meds were accounted for on list; will have Am team follow up. Furosemide on [facility] list does not have clear directions; will have Am team follow up for those directions.
[2025-04-15 22:33] VITALS: BP 97/50; PULSE 73; RESP 14; TEMP 36.6; O2SAT 95
--- NOTE | 2025-04-15 22:46 | PC.NURSE ---
pt placd on hospital bed for comfort at this time
[2025-04-15 22:47] VITALS: BP 111/68; PULSE 80
[2025-04-15 23:22] LABS: Anion Gap 13 (12-20); Blood Urea Nitrogen 68 mg/dL (9-16); Calcium 9.2 mg/dL (8.4-10.2); Carbon Dioxide 20 mmol/L (22-29); Chloride 116 mmol/L (96-108); Creatinine Clr Calc Pharmacy 18.8; Estimated Glomerular Filt Rate 21; Potassium 4.9 mmol/L (3.3-5.1); Sodium 144 mmol/L (135-145)
[2025-04-16] VITALS (8 sets, daily range): BP systolic 90–118; BP diastolic 54–65; PULSE 67–81; RESP 16–18; TEMP 36.1–36.8; O2SAT 93–100; BMI 20.1; BMI 22.7
--- NOTE | 2025-04-16 01:31 | HO.SKINPHOTO ---
Location: coccyx Category: Stage: 2 Length: Width: Depth: cm Location: lt heel Category: old healed wound Stage: Length: Width: Depth: cm Location: Category: Stage: Length: Width: Depth: cm Location: Category: Stage: Length: Width: Depth: cm Location: Category: Stage: Length: Width: Depth: cm Location: Category: Stage: Length: Width: Depth: cm
[2025-04-16] MEDS: 0.9 % Sodium Chloride Flush 3 ML SYRINGE IVFLUSH ×3 (01:55→21:11)
--- NOTE | 2025-04-16 02:04 | MHC.PIE ---
p; on admission assessment pt noted with fungal areas to under abd folds. i; BRENT Roe notified e; will cont to monitor
[2025-04-16 05:59] LABS: MANUAL DIFF FLAG NO
[2025-04-16 06:01] LABS: Hematocrit 37.5 % (37.0-47.0); Hemoglobin 11.8 g/dl (12.0-16.0); Imm Gran Abs Auto 0.02 X10*3/uL (0.00-0.03); Imm Gran Pct Auto 0.4 % (0.0-0.4); Lymphocytes Absolute Auto 1.0 X10*3/uL (1.2-4.9); Mean Corpuscular HGB Conc 31.5 g/dl (31.0-35.0); Mean Corpuscular Hemoglobin 27.9 pg (27.0-33.0); Mean Corpuscular Volume 88.7 fL (80.0-98.0); NRBC Abs Auto 0.000 X10*3/uL (0.0-0.012); NRBC Pct Auto 0.0 /100WBC (0.0-0.2); Platelet Count 136 X10*3/uL (160-400); Red Blood Count 4.23 X10*6/uL (4.20-5.50); White Blood Count 5.7 X10*3/uL (4.8-10.8)
[2025-04-16 06:12] LABS: Prothrombin Time 77.4 SEC (11.2-13.5)
[2025-04-16 06:17] LABS: Anion Gap 12 (12-20); Blood Urea Nitrogen 62 mg/dL (9-16); Calcium 9.1 mg/dL (8.4-10.2); Carbon Dioxide 23 mmol/L (22-29); Chloride 116 mmol/L (96-108); Creatinine Clr Calc Pharmacy 20.2; Estimated Glomerular Filt Rate 24; Potassium 5.0 mmol/L (3.3-5.1); Sodium 146 mmol/L (135-145)
[2025-04-16 06:31] LABS: INTERNATIONAL NORM RATIO 6.7 (0.9-1.1)
--- NOTE | 2025-04-16 07:13 | HO.PM.IMPN ---
Subjective Subjective Date of Service: 04/16/25 Interval History: Patient received 10 mg p.o. vitamin K today We will check INR tomorrow Nephrology consulted-we will treat her prerenal azotemia which is causing her ARIADNA along with intrarenal with antibiotics Urology consulted to undergo stent removal surgically on Saturday per urologist or schedule Patient elected to be DNR DNI Have tried to reach out to the daughter [phone] via phone we will attempt again Review of Systems Review of Systems: Yes all other systems are reviewed and are negative Physical Exam Exam: Exam: She appears frail and elderly hunched over No acute signs of overt bleed, however she does have multiple sites of ecchymosis Vital Signs: Vital Signs: Last Vital Signs Temp 97.3 F 04/16/25 04:00 Pulse 73 04/16/25 04:00 Resp 18 04/16/25 04:00 BP 118/60 04/16/25 04:00 Pulse Ox 93 04/16/25 04:00 O2 Del Method Room Air 04/16/25 04:00 BMI result Body Mass Index 20.1 Appearance: Alert.? Oriented X3.? cvs: rrr, [id number] . res: clear to auscultation ,no rhonchii or wheezing abd: no rebound or guarding ,nt, bs present. ext pulses present , no cyanosis . neuro: axo3 , nonfocal. : hematuria resolved. Objective Data Active Medications Acetaminophen (Acetaminophen 325 Mg Tablet) 650 mg PO Q6H PRN PRN Reason: Pain, Mild 1-3,fever,headache Calcium Carbonate (Calcium Carbonate 750 Mg Tab.Chew) 750 mg PO Q4H PRN PRN Reason: Heartburn Ceftriaxone Sodium 1 gm/ (Sodium Chloride) 50 mls @ 100 mls/hr IV Q24H [facility] Last Infusion: 04/15/25 23:10 Dose: Infused Documented By: RADHA Magnesium Hydroxide (Milk Of Magnesia 30 Ml Oral.Susp) 30 ml PO DAILY PRN PRN Reason: Constipation Melatonin (Melatonin 3 Mg Tablet) 6 mg PO BEDTIME PRN PRN Reason: Insomnia Metronidazole (Metronidazole 500 Mg Tablet) 500 mg PO Q8H [facility] Last Admin: 04/16/25 05:19 Dose: 500 mg Documented By: EDWINA Nystatin (Nystatin Powder 15 Gm Bottle) 1 appl TOPICAL BID [facility], [facility]; Protocol Oxycodone HCl (Oxycodone Hcl Immed Release 5 Mg Tablet) 5 mg PO Q6H PRN PRN Reason: Pain, Severe (Pain Scale 7-10) Sodium Chloride (0.9 % Sodium Chloride Flush 3 Ml Syringe) 3 ml IVFLUSH QSHIFT [facility] Last Admin: 04/16/25 01:55 Dose: 3 ml Documented By: EDWINA Tramadol HCl (Tramadol Hcl 50 Mg Tablet) 50 mg PO Q6H PRN PRN Reason: Pain, Moderate(Pain Scale 4-6) Labs 04/16/25 05:24 04/16/25 15:07 Labs: Laboratory Results - last 24 hr 04/15/25 04/15/25 04/15/25 13:12 13:38 18:36 MCV 88.6 MCH 28.1 MCHC 31.7 RDW 16.1 H Plt Count 187 MPV 10.0 Immature Gran % (Auto) 0.3 Neut % (Auto) 75.5 H Lymph % (Auto) 16.6 L [place] % (Auto) 6.4 Eos % (Auto) 0.9 Baso % (Auto) 0.3 Lymph # (Auto) 1.1 L [place] # (Auto) 0.4 Eos # (Auto) 0.1 Baso # (Auto) 0.0 Abs Immat Gran (auto) 0.02 Absolute Neuts (auto) 5.1 Absolute Nucleated RBC 0.000 Nucleated RBC % (auto) 0.0 PT 121.1 H INR 10.5 H* D APTT 54.6 H Anion Gap 13 Estim Creat Clear Calc 15.5 Estimated GFR 17 Random Glucose 102 Lactic Acid Calcium 9.7 D Total Bilirubin 0.6 AST 32 H ALT 21 Alkaline Phosphatase 119 H Total Creatine Kinase 72 NT-Pro-B Natriuret Pep 9268.5 H Total Protein 6.5 Albumin 3.8 Urine Color [place] A Urine Appearance Turbid Urine pH 5.0 Ur Specific [place] 1.010 Urine Protein 100 (2+) H Urine Glucose (UA) Negative Urine Ketones Negative Urine Blood Large (3+) H Urine Nitrite Positive H Ur Leukocyte Esterase Large (3+) H Urine RBC >20 H Urine WBC >50 H Ur Squamous Epith Cells 0-2 Urine Bacteria 3+ Hyaline Casts 0-2 Blood Type A Positive Antibody Screen NEGATIVE 04/15/25 04/15/25 04/16/25 20:28 22:53 05:24 MCV 88.7 MCH 27.9 MCHC 31.5 RDW 16.0 Plt Count 136 L D MPV 9.5 Immature Gran % (Auto) 0.4 Neut % (Auto) 73.2 H Lymph % (Auto) 17.4 L [place] % (Auto) 7.6 Eos % (Auto) 1.2 Baso % (Auto) 0.2 Lymph # (Auto) 1.0 L [place] # (Auto) 0.4 Eos # (Auto) 0.1 Baso # (Auto) 0.0 Abs Immat Gran (auto) 0.02 Absolute Neuts (auto) 4.2 Absolute Nucleated RBC 0.000 Nucleated RBC % (auto) 0.0 PT 77.4 H D INR 6.7 H* D APTT Anion Gap 13 12 Estim Creat Clear Calc 18.8 20.2 Estimated GFR 21 24 Random Glucose 144 H 92 Lactic Acid 0.8 Calcium 9.2 9.1 Total Bilirubin AST ALT Alkaline Phosphatase Total Creatine Kinase NT-Pro-B Natriuret Pep Total Protein Albumin Urine Color Urine Appearance Urine pH Ur Specific [place] Urine Protein Urine Glucose (UA) Urine Ketones Urine Blood Urine Nitrite Ur Leukocyte Esterase Urine RBC Urine WBC Ur Squamous Epith Cells Urine Bacteria Hyaline Casts Blood Type Antibody Screen Assessment and Plan (1) Supratherapeutic INR: Status: Acute Assessment and Plan: 84-year-old lady with PMH of pertinent for CKD, nephrolithiasis with right ureteral stent placed 1.5 years ago, hypertension, hyperlipidemia, GORDON on CPAP, pulmonary hypertension, HFrEF (EF 20%), paroxysmal AFib, porcine mitral valve replacement, AICD status post pacemaker on Coumadin is admitted to the hospital from the Coumadin clinic due to supratherapeutic INR (10.2). Pt noted fall with findings of T10 fx, acute pyelo, sigmoid diverticultis, lung nodule and thyroid nodules on imaging. supratherpeutic INR Patient received vitamin K p.o. and continues to be supratherapeutic, we will receive another dose of vitamin K 10 mg p.o. Daily INR checks Hold Coumadin acute pyelonephritis with R ureteral stent from a stent placed 1.5 years ago which is the likely source of UTIs recurrent MPRESSION: 1. No hemoperitoneum or abdominal organ injury. 2. There is a right-sided ureteral stent. There is mild right-sided pelviectasis and infiltration of fat adjacent to the right renal pelvis. Recommend correlation with urinalysis to exclude pyelonephritis. 3. There may be a mild degree of diverticulitis of the proximal sigmoid colon. 4. There are 2 small nonobstructive calculi within the right kidney. - continue ceftriaxone pending urine culture - urology consult, stent present x1.5 years, never changed per pt to undergo operative management as apparently the stent is now calcified - monitor CBC and BMP sigmoid diverticulitis on CT - pt reporting LLQ pain and bowel irregularity - ceftriaxone and flagyl - advanced diet as tolerated Protein calorie malnutrition Dietary consult placed Protein supplementation ARIADNA on CKD prerenal and renal etiology - treat prerenal with IVF and renal with antibiotics - avoid nephrotoxins - monitor cr acute hyperkalemia, prolonged QTC - mild hyperkalemia, likely resolved with IVF - recheck BMP now - repeat EKG when lytes normalized T10 fracture on CT - ED provider spoke with [facility] neurosurgery who suggested fx appears stable, no need for transfer - pain management - ortho consult lung nodule on CT - repeat chest CT in 3 mo outpt thyroid nodules on CT - f/u output for thyroid US paroxysmal a fib - amiodarone and metoprolol, hold metoprolol if SBP <90 - hold coumadin GORDON - CPAP at bedtime HFrEF, no acute exacerbation - BNP around baseline, no evidence of fluid overload - continue spironolactone - limit IVF - monitor for fluid overload HTN - hold amlodipine, lisinopril, carvidelol HLD - hold statin due to ARIADNA Breast mass noted on physical exam-mammogram outpatient settings DNI VTE prophy: SCDs Pt with supra therapeutic INR, found to have T10 fracture, acute pyelonephritis and diverticulitis on imaging, requiring admission for at least 2 midnight stay stabilization of INR, IV antibiotics, specialist consultations and monitoring. This note is constructed using voice recognition software. While every effort has been made to ensure accuracy, data entry representative errors may have been included. Quality Stroke Does the patient have a stroke diagnosis?: No VTE Prior VTE?: No VTE Risk Level:: Medical - moderate - high VTE Device Contraindication: N/A - Device Ordered VTE Drug Contraindication: Treatment Not Indicated
--- NOTE | 2025-04-16 08:33 | PM.UROCN ---
History of Present Illness Consult details Consult date: 04/16/25 Narrative: 84-year-old female with a past medical history significant for paroxysmal AFib on Coumadin, history of porcine mitral valve replacement, AICD/pacemaker, GORDON on CPAP, HFrEF (last EF 20%), CKD, nephrolithiasis with right ureteral stent placed 1.5 years ago, hypertension, HLD, pulmonary hypertension, who presented to the ED due to a supratherapeutic INR at the [facility]. INR here is 10.2. S/P right ureteral stent placed 11/25/33 for obstructive stone. Stent removal was postponed due to pt's cardiac issues. Most recently she had an AICD/pacemaker placed at [facility] which was to be done prior to her stent removal. Review of Systems Review of Systems: Yes all other systems are reviewed and are negative Constitutional: Constitutional: Reports no additional constitutional complaints Eyes: Eyes: Reports no additional eye complaints ENT: Reports system reviewed and no additional complaints, except as documented Cardiovascular: Cardiovascular: Reports no additional cardiovascular complaints Respiratory: Respiratory: Reports no additional respiratory complaints Gastrointestinal: Gastrointestinal: Reports no additional gastrointestinal complaints Genitourinary: Genitourinary: Reports as per HPI Musculoskeletal: Musculoskeletal: Reports no additional musculoskeletal complaints Integumentary/Breasts: Skin/Breast: Reports system reviewed and no additional complaints, except as docu Neurologic: Reports system reviewed and no additional complaints, except as documented Psychiatric: Psychiatric: Reports no additional psychiatric complaints Endocrine: Endocrine: Reports no additional endocrine complaints Hematologic/Lymphatic: Hematologic/Lymphatic: Reports no additional hematologic/lymphatic complaints Allergic/Immunologic: Allergic/Immunologic: Reports no additional allergic/immunologic complaints [facility] Past Medical History Medical History HFrEF (heart failure with reduced ejection fraction) Chronic atrial fibrillation Chronic anticoagulation Obesity CKD (chronic kidney disease) stage 3, GFR 30-59 ml/min Nephrolithiasis, uric acid Hyperlipidemia HTN (hypertension) A-fib GORDON (obstructive sleep apnea) COPD (chronic obstructive pulmonary disease) Pulmonary HTN Severe mitral regurgitation Thiamine deficiency Osteoporosis Family History Family History Father No problems noted. Mother No problems noted. Maternal Aunt Breast cancer Surgical History Surgical History Hx of hernia repair History of open reduction and internal fixation (ORIF) procedure Social History Social History Household Members: Significant Other Housing: House Do you presently have visiting nurse or other home services: Yes Alcohol intake: never Patient Tobacco Use Status: Former Tobacco user Tobacco use type: Cigarette e-Cigarette/Vaping Use: Never Used Second Hand Smoke Exposure: No Currently Displaying Signs/Symptoms of Drug Intoxication Withdrawal: No Have you been hit, kicked, punched, or otherwise hurt by someone within the past year? If so, by whom?: No Do you feel safe in your current relationship?: Yes Is there a partner from a previous relationship who is making you feel unsafe now?: No Are you made to feel afraid or neglected: No Advance Directives: Yes Advance Directives on File: Yes Advance Directives Date on File: 11/28/23 Do you have a plan to hurt others: No Plan Recently lost weight without trying: Yes How much weight loss: 34pounds or more Eating poorly because of decreased appetite: Yes Nutrition screen score: 7 Nutrition Risks: No Nutritional Risk Patient : No : No Poor oral hygiene: No service: No Current occupational status: retired Cognitive needs: No Hearing needs: No Vision needs: No Meds Allergies Allergy/AdvReac Type Severity Reaction Status Date / Time hydrocodone (From Vicodin) Allergy Mild CHEST PAIN Verified 04/15/25 12:26 Active Medications: Current Medications Acetaminophen (Acetaminophen 325 Mg Tablet) 650 mg PO Q6H PRN PRN Reason: Pain, Mild 1-3,fever,headache Albuterol Sulfate (Albuterol Sulfate 90 Mcg 8 Gm Inhaler) 2 puff INHALE Q4-6H PRN PRN Reason: shortness of breath or wheezing Amiodarone HCl (Amiodarone Hcl 200 Mg Tablet) 200 mg PO DAILY [facility] Atorvastatin Calcium (Atorvastatin Calcium 80 Mg Tablet) 80 mg PO DAILY [facility] Calcium Carbonate (Calcium Carbonate 750 Mg Tab.Chew) 750 mg PO Q4H PRN PRN Reason: Heartburn Ceftriaxone Sodium 1 gm/ (Sodium Chloride) 50 mls @ 100 mls/hr IV Q24H [facility] Last Infusion: 04/15/25 23:10 Dose: Infused Phytonadione 10 mg/ Sodium (Chloride) 51 mls @ 51 mls/hr IV ONCE ONE Stop: 04/16/25 09:08 Magnesium Hydroxide (Milk Of Magnesia 30 Ml Oral.Susp) 30 ml PO DAILY PRN PRN Reason: Constipation Melatonin (Melatonin 3 Mg Tablet) 6 mg PO BEDTIME PRN PRN Reason: Insomnia Metronidazole (Metronidazole 500 Mg Tablet) 500 mg PO Q8H [facility] Last Admin: 04/16/25 05:19 Dose: 500 mg Nystatin (Nystatin Powder 15 Gm Bottle) 1 appl TOPICAL BID [facility]; Protocol Last Admin: 04/16/25 08:11 Dose: 1 appl Omeprazole (Omeprazole 20 Mg Capsule.Dr) 20 mg PO BID@0630,1630 [facility] Oxycodone HCl (Oxycodone Hcl Immed Release 5 Mg Tablet) 5 mg PO Q6H PRN PRN Reason: Pain, Severe (Pain Scale 7-10) Sodium Chloride (0.9 % Sodium Chloride Flush 3 Ml Syringe) [facility] Last Admin: 04/16/25 08:15 Dose: 3 ml Spironolactone (Spironolactone 25 Mg Tablet) 12.5 mg PO DAILY [facility]; Protocol Tramadol HCl (Tramadol Hcl 50 Mg Tablet) 50 mg PO Q6H PRN PRN Reason: Pain, Moderate(Pain Scale 4-6) Home Medications ?Medication ?Instructions ?Recorded ?Confirmed ?Last Taken ?Type ascorbate calcium (vitamin C) 500 500 mg PO DAILY 01/04/23 04/16/25 04/15/25 History mg tablet cglolufbslkv-Bu-wpgg-minerals 1 tab PO DAILY 01/04/23 04/16/25 12/07/24 History zinc gluconate 50 mg tablet 50 mg PO DAILY 01/04/23 04/16/25 12/07/24 History acetaminophen 325 mg capsule 650 mg PO Q8H PRN Pain 01/20/24 04/15/25 Unknown History amiodarone 200 mg tablet 200 mg PO DAILY 07/27/24 04/15/25 04/15/25 History omeprazole 20 mg capsule,delayed 20 mg PO BID@0630,1630 12/07/24 04/15/25 04/15/25 History release thiamine HCl (vitamin B1) 100 mg 100 mg PO DAILY 01/12/25 04/16/25 Unknown History capsule warfarin 2.5 mg tablet 2.5 mg PO SUTUTH@1800 01/12/25 04/15/25 04/13/25 History amlodipine 5 mg tablet 5 mg PO DAILY 04/15/25 04/15/25 04/15/25 History carvedilol 12.5 mg tablet 12.5 mg PO BID 04/15/25 04/15/25 04/15/25 History furosemide 40 mg tablet (Lasix) 40 mg PO BID 04/15/25 04/16/25 Unknown History umeclidinium 62.5 mcg-vilanterol 1 inh inhalation DAILY 04/15/25 04/15/25 History 25 mcg/actuation powdr for inhalation (Anoro Ellipta) warfarin 2.5 mg tablet 1.25 mg PO MOWEFRSA@1800 04/15/25 04/15/25 04/14/25 History cholecalciferol (vitamin D3) 10 10 mcg PO DAILY 04/16/25 04/16/25 Unknown History mcg (400 unit) tablet (Vitamin D3) potassium chloride 20 mEq 20 meq PO DAILY 04/16/25 04/16/25 Unknown History tablet,extended release Physical Exam Vital Signs: Vital Signs: Last Vital Signs Temp 96.9 F 04/16/25 07:51 Pulse 68 04/16/25 07:51 Resp 16 04/16/25 07:51 BP 100/54 L 04/16/25 07:51 Pulse Ox 99 04/16/25 07:51 O2 Del Method Room Air 04/16/25 07:51 BMI result Body Mass Index 20.1 Const: General: cooperative and no acute distress HEENT: Head: Yes normal to inspection, Yes normocephalic and Yes atraumatic Eyes: Conjunctivae: conjunctivae normal Neck: Neck: Yes normal visual inspection and Yes trachea midline Chest: Chest palpation & inspection: normal inspection of the chest Resp: Effort & Inspection: normal respiratory effort GI: Inspection: Yes normal to inspection Palpation (GI): Soft to palpation Psych: Appearance: grossly normal Results Labs 04/22/25 06:44 04/22/25 06:44 Labs: Abnormal lab results 04/15/25 04/15/25 04/15/25 Range/Units 13:12 18:36 22:53 Hgb (12.0-16.0) g/dl RDW 16.1 H (11.0-16.0) % Plt Count (160-400) X10*3/uL Neut % (Auto) 75.5 H (45-73) % Lymph % (Auto) 16.6 L (20-40) % Lymph # (Auto) 1.1 L (1.2-4.9) X10*3/uL PT 121.1 H (11.2-13.5) SEC INR 10.5 H* D (0.9-1.1) APTT 54.6 H (26.7-34.1) SEC Sodium (135-145) mmol/L Potassium 5.3 H (3.3-5.1) mmol/L Chloride 113 H 116 H (96-108) mmol/L Carbon Dioxide 20 L 20 L (22-29) mmol/L BUN 71 H 68 H (9-16) mg/dL Creatinine 2.71 H 2.23 H (0.5-1.4) mg/dL Random Glucose 144 H (60-115) mg/dL AST 32 H (5-31) U/L Alkaline Phosphatase 119 H (39-117) U/L NT-Pro-B Natriuret Pep 9268.5 H (<300) pg/mL Urine Color [place] A Urine Protein 100 (2+) H (Neg-Trace) mg/dL Urine Blood Large (3+) H (Negative) Urine Nitrite Positive H (Negative) Ur Leukocyte Esterase Large (3+) H (Negative) Urine RBC >20 H (0-2) /HPF Urine WBC >50 H (0-5) /HPF 04/16/25 Range/Units 05:24 Hgb 11.8 L (12.0-16.0) g/dl RDW (11.0-16.0) % Plt Count 136 L D (160-400) X10*3/uL Neut % (Auto) 73.2 H (45-73) % Lymph % (Auto) 17.4 L (20-40) % Lymph # (Auto) 1.0 L (1.2-4.9) X10*3/uL PT 77.4 H D (11.2-13.5) SEC INR 6.7 H* D (0.9-1.1) APTT (26.7-34.1) SEC Sodium 146 H (135-145) mmol/L Potassium (3.3-5.1) mmol/L Chloride 116 H (96-108) mmol/L Carbon Dioxide (22-29) mmol/L BUN 62 H (9-16) mg/dL Creatinine 1.96 H (0.5-1.4) mg/dL Random Glucose (60-115) mg/dL AST (5-31) U/L Alkaline Phosphatase (39-117) U/L NT-Pro-B Natriuret Pep (<300) pg/mL Urine Color Urine Protein (Neg-Trace) mg/dL Urine Blood (Negative) Urine Nitrite (Negative) Ur Leukocyte Esterase (Negative) Urine RBC (0-2) /HPF Urine WBC (0-5) /HPF Short CBC 04/15/25 04/16/25 Range/Units 13:12 05:24 WBC 6.7 5.7 (4.8-10.8) X10*3/uL Hgb 13.1 D 11.8 L (12.0-16.0) g/dl Hct 41.3 D 37.5 (37.0-47.0) % Plt Count 187 136 L D (160-400) X10*3/uL BMP 04/15/25 04/15/25 04/16/25 13:12 22:53 05:24 Sodium 141 144 146 H Potassium 5.3 H 4.9 5.0 Chloride 113 H 116 H 116 H Carbon Dioxide 20 L 20 L 23 BUN 71 H 68 H 62 H Creatinine 2.71 H 2.23 H 1.96 H Calcium 9.7 D 9.2 9.1 Cardiac Enzymes 04/15/25 Range/Units 13:12 Total Creatine Kinase 72 (26-140) U/L Liver Function 04/15/25 Range/Units 13:12 Total Bilirubin 0.6 (0.0-1.0) mg/dL AST 32 H (5-31) U/L ALT 21 (0-31) U/L Alkaline Phosphatase 119 H (39-117) U/L Albumin 3.8 (3.5-5.0) g/dL Urine 04/15/25 Range/Units 18:36 Urine Color [place] A Urine Appearance Turbid Urine pH 5.0 (5.0-9.0) Ur Specific [place] 1.010 (1.005-1.025) Urine Protein 100 (2+) H (Neg-Trace) mg/dL Urine Glucose (UA) Negative (Negative) mg/dL Imaging Additional studies: Date of Service: 04/15/25 Reason for Exam: Fall CLINICAL HISTORY: Fall CT abdomen and pelvis without contrast Comparison: CT/REG/MI/SR - CT ABDOMEN PELVIS WITHOUT IV CONTRAST - 03/02/24 07:48 EDT Findings: Findings at the lung bases are reported separately. There are multiple calcified granulomas within the spleen. The liver, pancreas and adrenal glands are unremarkable. There is a right-sided ureteral stent extending from the renal pelvis into the bladder lumen. Mild infiltration of fat adjacent to the right renal pelvis. Mild right-sided pelviectasis. There are 2 small nonobstructive calculi within the right kidney. No hydronephrosis. The left kidney and its collecting system are unremarkable. There has been a prior cholecystectomy. There is no free fluid. There is gas within the bladder lumen compatible with recent placement of a ureteral stent. Pelvic contents are otherwise unremarkable. The appendix is normal. There is colonic diverticulosis. There is mild infiltration of the mesentery adjacent to proximal sigmoidal diverticula. No bowel obstruction. Pelvic contents unremarkable. Normal appendix. Status post open reduction internal fixation of the bilateral femurs with incomplete visualization of hardware. No acute fracture at the level of the abdomen or pelvis. No dislocation. IMPRESSION: 1. No hemoperitoneum or abdominal organ injury. 2. There is a right-sided ureteral stent. There is mild right-sided pelviectasis and infiltration of fat adjacent to the right renal pelvis. Recommend correlation with urinalysis to exclude pyelonephritis. 3. There may be a mild degree of diverticulitis of the proximal sigmoid colon. 4. There are 2 small nonobstructive calculi within the right kidney. Assessment and Plan (1) Ureteral stent retained: Status: Acute (2) S/P ureteral stent placement: Status: Acute (3) UTI (urinary tract infection): Status: Acute (4) Hematuria: Status: Acute (5) Supratherapeutic INR: Status: Acute Plan Stent is calcified and there is a stone at the proximal portion of the stent, will need ureteroscopy laser lithotripsy in order to remove stent. Procedures Date of Service Date of Service: 04/22/25
[2025-04-16 09:38] LABS: Anion Gap 13 (12-20); Blood Urea Nitrogen 60 mg/dL (9-16); Calcium 9.5 mg/dL (8.4-10.2); Carbon Dioxide 23 mmol/L (22-29); Chloride 116 mmol/L (96-108); Creatinine Clr Calc Pharmacy 22.3; Estimated Glomerular Filt Rate 27; Potassium 4.9 mmol/L (3.3-5.1); Sodium 147 mmol/L (135-145)
[2025-04-16] MEDS: Phytonadione (Vit K1) Oral 10 MG/ML AMPUL 5 MG PO (09:43)
[2025-04-16 09:54] LABS: Thyroid Stimulating Hormone 0.44 uIU/mL (0.32-4.0)
--- NOTE | 2025-04-16 10:47 | PM.CNNEP ---
History of Present Illness Reason for Consult Consult date: 04/16/25 Chief Complaint Chief complaint: acute kidney injury History of Present Illness Narrative: 84-year-old lady with PMH of HFrEF (EF 20%), paroxysmal AFib, porcine mitral valve replacement, AICD status post pacemaker on Coumadin is admitted to the hospital from the Coumadin clinic due to supratherapeutic INR. Her other medical history is pertinent for CKD, nephrolithiasis with right ureteral stent placed 1.5 years ago, hypertension, hyperlipidemia, GORDON on CPAP, pulmonary hypertension She presents with the acute on chronic kidney disease, her baseline creatinine is 0.9 - 1.1; which increased to 2.71 upon presentation upon gentle fluid resuscitation it is trending down to 1.[address] abdomen and pelvis showed possible right-sided pyelonephritis, with a persistent right ureteric stent. Review of Systems Review of Systems Const : no body aches, + chills, no excessive sweating and no fatigue Eyes: no blurry vision and no change in vision ENT: no bleeding gums and no change in voice, no dizziness Card: no chest pain, no shortness of breath, no orthopnea, no PND Resp: no cough, no excessive phlegm production, no SOB GI: no abdominal pain and no nausea, no vomiting : no hematuria, no urinary frequency and + difficulty voiding Musc: no abnormal gait, no bone pain Neuro: no abnormal movements, no weakness, no dizziness, no abnormal gait and no behavioral changes Psych: no behavioral changes and no change in appetite Endo: no change in body appearance, no cold intolerance, no excessive sweating and no fatigue PMFSH Past Medical History Medical History HFrEF (heart failure with reduced ejection fraction) Chronic atrial fibrillation Chronic anticoagulation Obesity CKD (chronic kidney disease) stage 3, GFR 30-59 ml/min Nephrolithiasis, uric acid Hyperlipidemia HTN (hypertension) A-fib GORDON (obstructive sleep apnea) COPD (chronic obstructive pulmonary disease) Pulmonary HTN Severe mitral regurgitation Thiamine deficiency Osteoporosis Family History Family History Father No problems noted. Mother No problems noted. Maternal Aunt Breast cancer Surgical History Surgical History Hx of hernia repair History of open reduction and internal fixation (ORIF) procedure Social History Social History Household Members: Significant Other Housing: House Do you presently have visiting nurse or other home services: Yes Alcohol intake: never Patient Tobacco Use Status: Former Tobacco user Tobacco use type: Cigarette e-Cigarette/Vaping Use: Never Used Second Hand Smoke Exposure: No Currently Displaying Signs/Symptoms of Drug Intoxication Withdrawal: No Have you been hit, kicked, punched, or otherwise hurt by someone within the past year? If so, by whom?: No Do you feel safe in your current relationship?: Yes Is there a partner from a previous relationship who is making you feel unsafe now?: No Are you made to feel afraid or neglected: No Advance Directives: Yes Advance Directives on File: Yes Advance Directives Date on File: 11/28/23 Do you have a plan to hurt others: No Plan Recently lost weight without trying: Yes How much weight loss: 34pounds or more Eating poorly because of decreased appetite: Yes Nutrition screen score: 7 Nutrition Risks: No Nutritional Risk Patient : No : No Poor oral hygiene: No service: No Current occupational status: retired Cognitive needs: No Hearing needs: No Vision needs: No Meds Allergies Allergy/AdvReac Type Severity Reaction Status Date / Time hydrocodone (From Vicodin) Allergy Mild CHEST PAIN Verified 04/15/25 12:26 Active Medications: Current Medications Acetaminophen (Acetaminophen 325 Mg Tablet) 650 mg PO Q6H PRN PRN Reason: Pain, Mild 1-3,fever,headache Albuterol Sulfate (Albuterol Sulfate 90 Mcg 8 Gm Inhaler) 2 puff INHALE Q4H PRN PRN Reason: shortness of breath or wheezing Amiodarone HCl (Amiodarone Hcl 200 Mg Tablet) 200 mg PO DAILY [facility] Last Admin: 04/16/25 09:43 Dose: 200 mg Atorvastatin Calcium (Atorvastatin Calcium 80 Mg Tablet) 80 mg PO DAILY [facility] Last Admin: 04/16/25 09:43 Dose: 80 mg Calcium Carbonate (Calcium Carbonate 750 Mg Tab.Chew) 750 mg PO Q4H PRN PRN Reason: Heartburn Ceftriaxone Sodium 1 gm/ (Sodium Chloride) 50 mls @ 100 mls/hr IV Q24H [facility] Last Infusion: 04/15/25 23:10 Dose: Infused Dextrose (D5w) 500 mls @ 0 mls/hr IV .Q0M PRN PRN Reason: Per Protocol Magnesium Hydroxide (Milk Of Magnesia 30 Ml Oral.Susp) 30 ml PO DAILY PRN PRN Reason: Constipation Melatonin (Melatonin 3 Mg Tablet) 6 mg PO BEDTIME PRN PRN Reason: Insomnia Metronidazole (Metronidazole 500 Mg Tablet) 500 mg PO Q8H [facility] Last Admin: 04/16/25 05:19 Dose: 500 mg Nystatin (Nystatin Powder 15 Gm Bottle) 1 appl TOPICAL BID [facility]; Protocol Last Admin: 04/16/25 08:11 Dose: 1 appl Omeprazole (Omeprazole 20 Mg Capsule.Dr) 20 mg PO BID@0630,1630 [facility] Oxycodone HCl (Oxycodone Hcl Immed Release 5 Mg Tablet) 5 mg PO Q6H PRN PRN Reason: Pain, Severe (Pain Scale 7-10) Sodium Chloride (0.9 % Sodium Chloride Flush 3 Ml Syringe) 3 ml IVFLUSH QSHIFT [facility] Last Admin: 04/16/25 08:15 Dose: 3 ml Spironolactone (Spironolactone 25 Mg Tablet) 12.5 mg PO DAILY [facility]; Protocol Last Admin: 04/16/25 09:45 Dose: Not Given Tramadol HCl (Tramadol Hcl 50 Mg Tablet) 50 mg PO Q6H PRN PRN Reason: Pain, Moderate(Pain Scale 4-6) Home Medications ?Medication ?Instructions ?Recorded ?Confirmed ?Last Taken ?Type ascorbate calcium (vitamin C) 500 500 mg PO DAILY 01/04/23 04/16/25 04/15/25 History mg tablet pyzzmcxcmncu-Ps-utfg-minerals 1 tab PO DAILY 01/04/23 04/16/25 12/07/24 History zinc gluconate 50 mg tablet 50 mg PO DAILY 01/04/23 04/16/25 12/07/24 History acetaminophen 325 mg capsule 650 mg PO Q8H PRN Pain 01/20/24 04/15/25 Unknown History amiodarone 200 mg tablet 200 mg PO DAILY 07/27/24 04/15/25 04/15/25 History omeprazole 20 mg capsule,delayed 20 mg PO BID@0630,1630 12/07/24 04/15/25 04/15/25 History release thiamine HCl (vitamin B1) 100 mg 100 mg PO DAILY 01/12/25 04/16/25 Unknown History capsule warfarin 2.5 mg tablet 2.5 mg PO SUTUTH@1800 01/12/25 04/15/25 04/13/25 History amlodipine 5 mg tablet 5 mg PO DAILY 04/15/25 04/15/25 04/15/25 History carvedilol 12.5 mg tablet 12.5 mg PO BID 04/15/25 04/15/25 04/15/25 History furosemide 40 mg tablet (Lasix) 40 mg PO BID 04/15/25 04/16/25 Unknown History umeclidinium 62.5 mcg-vilanterol 1 inh inhalation DAILY 04/15/25 04/15/25 History 25 mcg/actuation powdr for inhalation (Anoro Ellipta) warfarin 2.5 mg tablet 1.25 mg PO MOWEFRSA@1800 04/15/25 04/15/25 04/14/25 History cholecalciferol (vitamin D3) 10 10 mcg PO DAILY 04/16/25 04/16/25 Unknown History mcg (400 unit) tablet (Vitamin D3) potassium chloride 20 mEq 20 meq PO DAILY 04/16/25 04/16/25 Unknown History tablet,extended release Physical Exam Vital Signs: Last Vital Signs Temp 96.9 F 04/16/25 07:51 Pulse 81 04/16/25 09:51 Resp 16 04/16/25 07:51 BP 90/55 L 04/16/25 09:51 Pulse Ox 99 04/16/25 07:51 O2 Del Method Room Air 04/16/25 07:51 BMI result Body Mass Index 20.1 General: not in any acute distress, ill appearing Nutritional Appearance: well nourished and overweight Eyes: appearance normal, both eyes and all related structures; Alignment and Position: alignment normal and position normal Neck: No lymphadenopathy, no thyromegaly Resp: bilateral air entry equal, no added sounds present Cardio: Regular rate, regular rhythm; Heart sounds: S1 normal heart sound present and S2 normal heart sound present GI: soft, nontender, no guarding, no hepatosplenomegaly : bladder normal to inspection, bladder normal to palpation, no renal angle tenderness Skin: no rashes or lesions noted and elasticity normal Neuro: alert, oriented x 3, moves all extremities Results Lab Results 04/16/25 05:24 04/16/25 09:09 Lab results: Chemistry 04/15/25 04/15/25 04/16/25 13:12 22:53 05:24 Sodium 141 144 146 H Potassium 5.3 H 4.9 5.0 Carbon Dioxide 20 L 20 L 23 BUN 71 H 68 H 62 H Creatinine 2.71 H 2.23 H 1.96 H Calcium 9.7 D 9.2 9.1 04/16/25 09:09 Sodium 147 H Potassium 4.9 Carbon Dioxide 23 BUN 60 H Creatinine 1.78 H Calcium 9.5 Hematology 04/15/25 04/16/25 13:12 05:24 WBC 6.7 5.7 Hgb 13.1 D 11.8 L Plt Count 187 136 L D Urinalysis 04/15/25 18:36 Urine Color [place] A Urine Appearance Turbid Urine pH 5.0 Ur Specific [place] 1.010 Urine Protein 100 (2+) H Urine Glucose (UA) Negative Urine Ketones Negative Urine Blood Large (3+) H Urine Nitrite Positive H Ur Leukocyte Esterase Large (3+) H Urine RBC >20 H Urine WBC >50 H Ur Squamous Epith Cells 0-2 Hyaline Casts 0-2 Assessment and Plan (1) Acute hypernatremia: Status: Acute (2) Acute kidney injury superimposed on chronic kidney disease: Status: Acute Plan ARIADNA on chronic kidney disease: Presents with the acute on chronic kidney disease, her baseline creatinine is 0.9 - 1.1; which increased to 2.71 upon presentation upon gentle fluid resuscitation it is trending down to 1.[address] abdomen and pelvis showed possible right-sided pyelonephritis, with a persistent right ureteric stent. Recommend Urology consult for possible stent removal as it is staying in for too long. Urinalysis 30, nitrate positive, 2+ protein, 3+ blood, greater than 20 WBCs and greater than 50 RBCs. Recommend repeating urinalysis once the infection resolves and then quantify proteinuria. Continue antibiotics, previous cultures negative Hypernatremia with sodium 147, recommend gentle hydration Closely monitor urine output and renal function Avoid nephrotoxic medications including contrast, NSAIDs, ACEi/ARB Avoid hypotension, maintain normotension Hypertension: Blood pressures are on the lower side, withhold spironolactone. Procedures Date of Service Date of Service: 04/16/25
--- NOTE | 2025-04-16 12:16 | MHC.CLN ---
CONSULT DIET RX: CLEAR LIQUID. SKIN WITH STAGE II PRESSURE INJURY TO COCCYX. ADDING ENSURE CLEAR TID TO PROMOTE WOUND HEALING. SUPPLEMENT PROVIDES 720 KCALS, 24 G PROTEIN. SIGNIFICANT WEIGHT LOSS X 3 MONTHS, -17%, QUALIFIES MODERATELY MALNOURISHED IN THE CONTEXT OF CHRONIC ILLNESS. FOLLOW FOR DIET ADVANCEMENT, PO INTAKE AND WOUND HEALING. SEE CLINICAL NUTRITION ASSESSMENT.
[2025-04-16] MEDS: Lactated Ringers 1,000 ML 50 ML IVCONT (13:54)
--- NOTE | 2025-04-16 13:54 | HO.WOUND ---
Wound Consult: Initial 84 yr old female admitted to [facility] [place]- See progress notes and H&P for detailed history. Wound consult placed for coccyx and left heel. Patient agreeable to assessment and photo documentation. Patient reports history of wound to left heel, reports that it has drained for a long time. reports pain in her back and buttocks. patient also reporting pain in her left breast, upon assessment, skin with mild redness, no warmth, moderate sized firm mass felt, no fluctuance noted, patient cannot recall last mammogram. MD Prado made aware for appropriate follow up. Coccyx and left ischium Etiology: coccyx unstageable pressure injury Present on Admission - left ischium, intact red and blanching Wound Bed: coccyx moist yellow Drainage / Odor: scant yellow no odor Palmer wound: ? No Induration, Fluctuance or Warmth noted Pain: yes Goals of Treatment: ? triad to provide an occlusive dressing for autolytic debridment, to allow moist wound healing with absorption of mild exudate, to minimize contamination of urine/stool or bacteria, and to soothe and protect palmer wound skin- cover with foam for offloading. Left lateral heel Etiology: unstageable pressure injury Present on Admission Wound Bed: moist yellow Drainage / Odor: scant yellow, no odor Edges: ? dry, callused Palmer wound: ? No Induration, Fluctuance or Warmth noted - blanchable redness Pain: none Goals of Treatment: ? durafiber for drainage absorption/foam for offloading Right heel- intact, pink and blanching- protective heel foams in place Left abdominal fold- intertriginous dermatitis- moist red - antifungal already in place Recommendations: 1. Turn and Reposition every 2 hours and as needed for patient comfort. Use pillows or wedges to support off loading positions. 2. Off Load all bony prominences with use of pillows and heel boots if needed. Apply Preventative foams where needed. 3. Monitor for incontinence and moisture control, use barrier creams when needed for prevention and treatment. 4. Provide adequate and supplemental nutrition. 5. Order or Continue low air loss mattress. 6. When applicable maintain blood glucose levels per Providers order. Abdominal fold: assess all skin folds daily. routine gentle cleansing of skin folds, avoid scrubbing, pat area dry. wear lightweight, loose fitting clothing to promote air circulation. avoid placing products in skin folds that hold moisture against the skin. apply antifungal medication per provider orders, use only a light dusting to prevent caking. insert interdry ag into skin folds leaving 2-3 exposed to promote moisture wicking and evaporation. Right heel: Elevate heels off of bed surface with pillows. Float heels off of pillows. Apply skin prep allow to dry. Apply heel foam dressings, peel back and assess Q shift and change every 5-7 days and PRN. Coccyx: Off Load Pressure with Q2 hr turns and use of pillows - Cleanse with PH balance spray or wipes, pat dry. ?Apply thin layer of Triad to wound bed. Do not remove all of paste between applications as this may cause further skin damage.? Cover with foam dressing to aid in off loading and protection from friction. Change every other day and PRN. Left lateral heel: cleanse with normal saline, apply skin prep palmer wound, apply durafiber ag, to wound bed, cover with heel foams, change every other day and PRN - elevate heels off surface of bed with pillows Re-consult wound care Nurse for wound deterioration or wound changes.
--- NOTE | 2025-04-16 15:14 | PM.PNNEP ---
Subjective Subjective Date of Service: 04/16/25 Physical Exam Vital Signs: Vital Signs: Last Vital Signs Temp 97.8 F 04/16/25 15:00 Pulse 70 04/16/25 15:00 Resp 16 04/16/25 15:00 BP 97/55 L 04/16/25 15:00 Pulse Ox 98 04/16/25 15:00 O2 Del Method Room Air 04/16/25 15:00 BMI result Body Mass Index 22.7 Objective Data Labs 04/16/25 05:24 04/16/25 09:09 Labs: Laboratory Results - last 24 hr 04/15/25 04/15/25 04/15/25 13:12 18:36 20:28 WBC RBC Hgb Hct MCV MCH MCHC RDW Plt Count MPV Immature Gran % (Auto) Neut % (Auto) Lymph % (Auto) [place] % (Auto) Eos % (Auto) Baso % (Auto) Lymph # (Auto) [place] # (Auto) Eos # (Auto) Baso # (Auto) Abs Immat Gran (auto) Absolute Neuts (auto) Absolute Nucleated RBC Nucleated RBC % (auto) PT INR Sodium Potassium Chloride Carbon Dioxide Anion Gap BUN Creatinine Estim Creat Clear Calc Estimated GFR Random Glucose Lactic Acid 0.8 Calcium Total Creatine Kinase 72 NT-Pro-B Natriuret Pep 9268.5 H TSH Urine Color [place] A Urine Appearance Turbid Urine pH 5.0 Ur Specific [place] 1.010 Urine Protein 100 (2+) H Urine Glucose (UA) Negative Urine Ketones Negative Urine Blood Large (3+) H Urine Nitrite Positive H Ur Leukocyte Esterase Large (3+) H Urine RBC >20 H Urine WBC >50 H Ur Squamous Epith Cells 0-2 Urine Bacteria 3+ Hyaline Casts 0-2 04/15/25 04/16/25 04/16/25 22:53 05:24 09:09 WBC 5.7 RBC 4.23 Hgb 11.8 L Hct 37.5 MCV 88.7 MCH 27.9 MCHC 31.5 RDW 16.0 Plt Count 136 L D MPV 9.5 Immature Gran % (Auto) 0.4 Neut % (Auto) 73.2 H Lymph % (Auto) 17.4 L [place] % (Auto) 7.6 Eos % (Auto) 1.2 Baso % (Auto) 0.2 Lymph # (Auto) 1.0 L [place] # (Auto) 0.4 Eos # (Auto) 0.1 Baso # (Auto) 0.0 Abs Immat Gran (auto) 0.02 Absolute Neuts (auto) 4.2 Absolute Nucleated RBC 0.000 Nucleated RBC % (auto) 0.0 PT 77.4 H D INR 6.7 H* D Sodium 144 146 H 147 H Potassium 4.9 5.0 4.9 Chloride 116 H 116 H 116 H Carbon Dioxide 20 L 23 23 Anion Gap 13 12 13 BUN 68 H 62 H 60 H Creatinine 2.23 H 1.96 H 1.78 H Estim Creat Clear Calc 18.8 20.2 22.3 Estimated GFR 21 24 27 Random Glucose 144 H 92 115 Lactic Acid Calcium 9.2 9.1 9.5 Total Creatine Kinase NT-Pro-B Natriuret Pep TSH 0.44 Urine Color Urine Appearance Urine pH Ur Specific [place] Urine Protein Urine Glucose (UA) Urine Ketones Urine Blood Urine Nitrite Ur Leukocyte Esterase Urine RBC Urine WBC Ur Squamous Epith Cells Urine Bacteria Hyaline Casts Microbiology Microbiology Results: Microbiology 04/15/25 Unknown Urine clean catch Urine Culture - Preliminary Culture in progress. Procedures Date of Service Date of Service: 04/16/25 Assessment & Plan Time Spent With Patient Time: Total time managing care of this patient today ____ minutes. Progress Note: Quality Stroke Does the patient have a stroke diagnosis?: No
[2025-04-16 15:30] LABS: Anion Gap 11 (12-20); Blood Urea Nitrogen 53 mg/dL (9-16); Calcium 9.3 mg/dL (8.4-10.2); Carbon Dioxide 24 mmol/L (22-29); Chloride 114 mmol/L (96-108); Creatinine Clr Calc Pharmacy 23.0; Estimated Glomerular Filt Rate 32; Potassium 4.4 mmol/L (3.3-5.1); Sodium 145 mmol/L (135-145)
--- NOTE | 2025-04-16 19:10 | PM.EVENT ---
Event Note Date of Service: 04/16/25 Event Note: GI Consult-Full note dictated Imp: She presently appears very comfortable with a benign abdomen and no clinical signs of significant diverticulitis. Her CT scan is questionable for that at best. Her colonoscopy in 2019 was negative except for diverticulosis.. Rec: Advance diet by tomorrow if things remain stable in regard to her abdominal exam. The antibiotic she is on for the apparent pyelonephritis would treat diverticulitis as well anyway. I don't think she needs any other intervention from a GI standpoint at this time. Please advise if I can be of any further assistance. D/W patient. Thanks. Time Spent With Patient Time: Total time managing care of this patient today ____ minutes.
[2025-04-16 20:13] LABS: Anion Gap 12 (12-20); Blood Urea Nitrogen 48 mg/dL (9-16); Calcium 9.2 mg/dL (8.4-10.2); Carbon Dioxide 23 mmol/L (22-29); Chloride 114 mmol/L (96-108); Creatinine Clr Calc Pharmacy 26.8; Estimated Glomerular Filt Rate 38; Potassium 4.6 mmol/L (3.3-5.1); Sodium 144 mmol/L (135-145)
[2025-04-17] VITALS (8 sets, daily range): BP systolic 99–114; BP diastolic 54–61; PULSE 64–82; RESP 14–18; TEMP 36.3–37.1; O2SAT 95–98
--- NOTE | 2025-04-17 06:58 | CONS_ITS ---
DATE OF SERVICE: 04/16/2025 REASON FOR CONSULTATION: Abnormal CT scan of abdomen with question of diverticulitis. HISTORY OF PRESENT ILLNESS: This has been obtained from the patient and the chart. The patient is an 84-year-old female who was admitted to the hospital primarily for evaluation of some hematuria and a supratherapeutic PT/INR on her Coumadin. The patient has multiple medical problems including atrial fibrillation, valvular heart disease, sleep apnea, renal insufficiency, kidney stones, pulmonary hypertension, and an AICD with pacemaker. She describes having had a fall a week or 2 ago. She describes some irregular bowel movements. However, she has not noticed any melena nor hematochezia. She denies any chronic heartburn or dysphagia. She does describe that her appetite has been diminished and she has lost weight. I did see her back in 2019, at which time she underwent an upper endoscopy and colonoscopy. The upper endoscopy revealed a hiatal hernia and the colonoscopy revealed only diverticulosis. At the present time, she denies any abdominal pain. She has been tolerating a liquid diet. She has been afebrile. MEDICATIONS: Her present medications include acetaminophen, albuterol inhaler p.r.n., amiodarone, atorvastatin, Tums p.r.n., IV ceftriaxone, melatonin, IV Flagyl, omeprazole, oxycodone p.r.n., vitamin K, spironolactone, thiamin, and tramadol. PAST MEDICAL HISTORY: Multiple medical problems as described above. She has atrial fibrillation, renal insufficiency, kidney stones, ureteral stent in place, hypertension, atrial fibrillation, sleep apnea, COPD. She has had hernia repair, fractured hip, and porcine mitral valve replacement. She has had a pacemaker and AICD placement. SOCIAL HISTORY: She does not smoke nor use any significant amounts of alcohol. FAMILY HISTORY: Noncontributory. REVIEW OF SYSTEMS: CONSTITUTIONAL: She has been feeling somewhat tired at home and anorectic. SKIN: No rash. No pruritus. CARDIAC: No chest pain. PULMONARY: No coughing or hemoptysis. GI: As above. PHYSICAL EXAMINATION: GENERAL: The patient is an elderly, chronically ill-appearing female, in no distress. SKIN: Warm and dry. HEENT: Anicteric sclerae. Moist mucous membranes. ABDOMEN: Soft, nondistended, nontender without palpable mass or rebound. EXTREMITIES: Without edema. LABORATORY DATA: CT scan of her abdomen and pelvis describes some colonic diverticulosis with some mild infiltration of the mesentery adjacent to the proximal sigmoid diverticulosis. There is no bowel obstruction or abscess. Also noted was the right-sided ureteral stent. The radiologist read the report as mild changes consistent with a possible mild degree of diverticulitis of the proximal sigmoid colon. Hemoglobin 13.1 with a repeat today of 11.8. Normal MCV. White blood cell count 5.7, platelets 136,000. PT was 121 last night and 77.4 today. INR was 10.5 last night and 6.7 today. BUN was 71 on admission with a creatinine of 2.7. Repeat today shows a BUN of 60 with a creatinine 1.78. IMPRESSION: The patient is an elderly female with multiple medical problems, who had the apparent incidental finding of some questionable sigmoid diverticulitis on CT scan, but without any complicating features. At this time, her abdominal exam is benign. Based on the clinical exam, her history, and the CT report, I do not think she has any clinically significant diverticulitis ongoing at the present time. She certainly does not appear toxic and has a benign abdomen. Therefore, I would recommend continued observation, but slow advancement of her diet over the next 24-48 hours. I would think her antibiotics can be changed to p.o. antibiotics for about 5-7 days to treat any component of diverticulitis. I do not think she requires any other intervention such as colonoscopy at this time. I did review this with her in detail and she is comfortable with that plan. MD LISA Rivera/YRIS / [id number] OPAL
--- NOTE | 2025-04-17 07:00 | CA_ITS ---
Transthoracic Echocardiogram Patient (Last, First, Middle): Ramona Pinon J Gender: F Date of : 1940 Age: 84 Procedure Date: 04/17/2025 Procedure Type: Transthoracic Echocardiogram Location: [facility] [place] Height: 160.02 cm Weight: 58.06 kg BSA: 1.60 m2 Heart Rate: bpm BP: 107 / 55 mmHg Unemployment Claims Adjudicator: Referring MD: Peggy Prado MD Inspection And Testing Supervisor: Arnold Sebastian MD Symptoms: gram + cocci in clusters in blood Study Quality: Adequate ECG Rhythm: Atrial Fibrillation Conclusions: - 1. Severely reduced LV ejection fraction 15-20% 2. Biatrial enlargement with left greater than light 3. Mild aortic regurgitation 4. Normally functioning bioprosthetic mitral valve 5. No gross pericardial effusion Findings Left Ventricle Mildly increased left ventricular cavity size. There is mildly increased left ventricular wall thickness. The left ventricular systolic function is severely decreased. The visually estimated ejection fraction is between 15 20%. There is severe global hypokinesis. Diastolic function is indeterminate on the basis of available data. Right Ventricle Moderately increased right ventricular cavity size. There is mildly decreased right ventricular systolic function. There is an ICD wire seen in the right ventricle. Atria The left atrium is severely dilated. Interatrial shunt cannot be excluded. The right atrium is moderately dilated. A pacemaker wire is identified in the right atrium. Aortic Valve There is mild calcification of the aortic valve. There is mild aortic valve regurgitation. Mitral Valve A bioprosthetic mitral valve is present. The prosthetic mitral valve appears to be functioning normally. There is no mitral valve regurgitation. There is no mitral valve stenosis. Pulmonic Valve The pulmonic valve was not well visualized. Tricuspid Valve Normal tricuspid valve structure. There is mild to moderate tricuspid valve regurgitation. Normal right atrial pressure. Mild pulmonary hypertension is present. Great Vessels All visible segments of the aorta are normal in size. The pulmonary artery was not well visualized. There is no dilatation of the ascending aorta measuring 2.60 cm. Venous The inferior vena cava is normal in size and collapses greater than 50% with inspiration. Pericardium/Pleural There is no evidence of pericardial effusion. Recommendations, Care & Conclusions Recommend a VIVIANA. Measurements 2D Linear Measurements IVSd: 1.25 0.6-0.9/0.6-1.0 cm LVIDd: 5.43 3.9-5.3/4.2-5.9 cm LVIDd Index: 3.39 2.4-3.2/2.2-3.1 cm/m2 LVIDs: 5.15 2.0-3.6 cm LVPWd: 1.20 0.7-1.1 cm Ao Root: 2.90 2.1-3.5 cm LA Diam: 5.30 2.7-3.8/3.0-4.0 cm LAIDs Index: 3.31 1.5-2.3 cm/m2 LV Mass: 342.37 67-162/88-224 g LV Mass Index: 213.98 43-95/49-115 g/m2 LVOT Diam: 1.90 3.0+(-)1.3 cm 2D Systolic Function EF 4C: 17.00 >55% EF 2C: 18.70 >55% EF BiP: 19.20 >55% Mitral Valve MV VTI: 0.37 MV Pk Sivakumar: 1.43 MV Mn Sivakumar: 0.66 MV Pk Grad: 8.00 MV Mn Grad: 2.00 MV Pk E: 1.49 MV Decel Time: 269.00 E'Lateral: 6.20 E'Medial: 4.68 E/E' Med: 31.80 E/E' Lat: 24.00 PHT: 79.00 MVA PHT: 2.78 MVA Continuity: 1.06 Decel Wetzel: 5.54 Aortic Valve AoV Pk Sivakumar: 1.24 AoV Mn Sivakumar: 0.89 AoV VTI: 0.25 AoV Pk Grad: 6.00 Aov Mn Grad: 4.00 RORY Cont.VTI: 1.55 LVOT LVOT Pk Sivakumar: 0.66 LVOT Mn Sivakumar: 0.45 LVOT VTI: 0.14 LVOT Pk Grad: 2.00 LVOT Mn Grad: 1.00 LVOT Diam: 1.90 LVOT Area: 2.84 Diastolic Function MV Pk E: 1.49 E'Medial: 4.68 E/E' Med: 31.80 E' Laterial: 6.20 E/E' Lat: 24.00 Right Ventricle TAPSE (mm): 17.00 TVS' Sivakumar: 7.00 Tricuspid Valve TR Pk Sivakumar: 3.22 TR Pk Grad: 41.00 RA Press: 3.00 RVSP: 44.00 Great Vessels Aorta Ao Root-2D: 2.90 2.0-3.7 cm Ao Asc: 2.60 2.1-3.4 cm Pulmonary Valve PV Pk Sivakumar: 1.10 Peak PV Grad: 5.00 Updated in Other Vendor System with Status of Final Arnold Sebastian MD electronically signed on 04/17/2025 2:01:19 PM with status of Final
--- NOTE | 2025-04-17 07:27 | PHA.PROG ---
Admission Date/Time: April 15, 2025 19:48 Indication: bacteremia Weight in k.1 kg Adjusted body weight in Kg: [place] body weight in Kg: Obesity Dosing Indication % IBW: Serum Creatinine - Last 168 Hours 04/15/25 04/15/25 04/16/25 13:12 22:53 05:24 Creatinine 2.71 H 2.23 H 1.96 H 04/16/25 04/16/25 04/16/25 09:09 15:07 19:55 Creatinine 1.78 H 1.56 H 1.34 Estimated CrCl and GFR - Last 168 Hours 04/15/25 04/15/25 04/16/25 13:12 22:53 05:24 Estim Creat Clear Calc 15.5 18.8 20.2 Estimated GFR 17 21 24 04/16/25 04/16/25 04/16/25 09:09 15:07 19:55 Estim Creat Clear Calc 22.3 23.0 26.8 Estimated GFR 27 32 38 Vancomycin Loading Dose: 1500mg x 1 Current Vancomycin Dosing Regimen: 750mg Q24H Vancomycin Monitoring using AUC goal of 400 - 600 range with trough as surrogate marker: 512 mg/L Date and Time for next Vancomycin Level to be drawn: 04/18 @2100 Pharmacist Comments on Vancomycin Plan: predicted trough of 16.8 mg/L, will continue to monitor renal function and adjust accordingly Vancomycin dosing will take advantage of [employer] as a clinical decision support tool that uses Bayesian modeling to calculate individual patient's pharmacokinetic parameters and forecast the patient's drug concentration time course with the target goal AUC 24 range of 400 - 600 mg/L/hr.
--- NOTE | 2025-04-17 07:28 | HO.PM.IMPN ---
Subjective Subjective Date of Service: 04/17/25 Interval History: Was noted to have Gram-positive cocci in blood-vancomycin initiated We will have to check TTE Surgery planned for Saturday We will resume home doses of warfarin as INR is 3.1-goal 2.5-3.5 Wound Care Review of Systems Review of Systems: Yes all other systems are reviewed and are negative Physical Exam Exam: Exam: She appears frail and elderly hunched over No acute signs of overt bleed, however she does have multiple sites of ecchymosis Vital Signs: Vital Signs: Last Vital Signs Temp 97.6 F 04/17/25 02:56 Pulse 64 04/17/25 02:56 Resp 14 04/17/25 02:56 BP 114/56 L 04/17/25 02:56 Pulse Ox 98 04/17/25 02:56 O2 Del Method Room Air 04/17/25 02:56 BMI result Body Mass Index 22.7 Appearance: Alert.? Oriented X3.? cvs: rrr, [id number] . res: clear to auscultation ,no rhonchii or wheezing abd: no rebound or guarding ,nt, bs present. ext pulses present , no cyanosis . neuro: axo3 , nonfocal. : hematuria resolved. Objective Data Active Medications Acetaminophen (Acetaminophen 325 Mg Tablet) 650 mg PO Q6H PRN PRN Reason: Pain, Mild 1-3,fever,headache Albuterol Sulfate (Albuterol Sulfate 90 Mcg 8 Gm Inhaler) 2 puff INHALE Q4H PRN PRN Reason: shortness of breath or wheezing Amiodarone HCl (Amiodarone Hcl 200 Mg Tablet) 200 mg PO DAILY [facility] Last Admin: 04/16/25 09:43 Dose: 200 mg Documented By: KEVIN Atorvastatin Calcium (Atorvastatin Calcium 80 Mg Tablet) 80 mg PO DAILY [facility] Last Admin: 04/16/25 09:43 Dose: 80 mg Documented By: KEVIN Calcium Carbonate (Calcium Carbonate 750 Mg Tab.Chew) 750 mg PO Q4H PRN PRN Reason: Heartburn Ceftriaxone Sodium 1 gm/ (Sodium Chloride) 50 mls @ 100 mls/hr IV Q24H [facility] Last Infusion: 04/16/25 21:47 Dose: Infused Documented By: KAT Lactated Ringer's (Lr) 1,000 mls @ 50 mls/hr IVCONT .Q20H [facility] Last Admin: 04/16/25 13:54 Dose: 50 mls/hr Documented By: INCKIE Vancomycin HCl 750 mg/ Sodium (Chloride) 265 mls @ 265 mls/hr IV Q24H [facility] Magnesium Hydroxide (Milk Of Magnesia 30 Ml Oral.Susp) 30 ml PO DAILY PRN PRN Reason: Constipation Melatonin (Melatonin 3 Mg Tablet) 6 mg PO BEDTIME PRN PRN Reason: Insomnia Metronidazole (Metronidazole 500 Mg Tablet) 500 mg PO Q8H [facility] Last Admin: 04/17/25 05:03 Dose: 500 mg Documented By: KAT Nystatin (Nystatin Powder 15 Gm Bottle) 1 appl TOPICAL BID [facility]; Protocol Last Admin: 04/16/25 21:19 Dose: 1 appl Documented By: KAT Omeprazole (Omeprazole 20 Mg Capsule.Dr) 20 mg PO BID@0630,1630 [facility] Last Admin: 04/17/25 05:03 Dose: 20 mg Documented By: KAT Oxycodone HCl (Oxycodone Hcl Immed Release 5 Mg Tablet) 5 mg PO Q6H PRN PRN Reason: Pain, Severe (Pain Scale 7-10) Pharmacy Consult (Consult Rx Vancomycin Dosing) 1 each MISCELLANE DAILY PRN PRN Reason: Consult order Sodium Chloride (0.9 % Sodium Chloride Flush 3 Ml Syringe) 3 ml IVFLUSH QSHIFT [facility] Last Admin: 04/16/25 21:11 Dose: 3 ml Documented By: KAT Spironolactone (Spironolactone 25 Mg Tablet) 12.5 mg PO DAILY [facility]; Protocol On Hold: 04/16/25 12:09 Last Admin: 04/16/25 09:45 Dose: Not Given Documented By: KVEIN Non-Admin Reason: BP 90/55 Thiamine HCl (Thiamine Hcl 100 Mg Tablet) 100 mg PO DAILY [facility] Tramadol HCl (Tramadol Hcl 50 Mg Tablet) 50 mg PO Q6H PRN PRN Reason: Pain, Moderate(Pain Scale 4-6) Labs 04/17/25 07:13 04/17/25 07:13 Labs: Laboratory Results - last 24 hr 04/16/25 04/16/25 04/16/25 09:09 15:07 19:55 Anion Gap 13 11 L 12 Estim Creat Clear Calc 22.3 23.0 26.8 Estimated GFR 27 32 38 Random Glucose 115 124 H 100 Calcium 9.5 9.3 9.2 TSH 0.44 Microbiology Microbiology Results: Microbiology 04/15/25 20:50 Blood Culture - Preliminary Blood - Venous No growth after 24 hours. 04/15/25 20:28 Blood Culture - Preliminary Blood - Venous Prelim: GPC Gram Stain only 04/15/25 Unknown Urine Culture - Preliminary Urine clean catch Culture in progress. Assessment and Plan (1) Supratherapeutic INR: Status: Acute Assessment and Plan: 84-year-old lady with PMH of pertinent for CKD, nephrolithiasis with right ureteral stent placed 1.5 years ago, hypertension, hyperlipidemia, GORDON on CPAP, pulmonary hypertension, HFrEF (EF 20%), paroxysmal AFib, porcine mitral valve replacement, AICD status post pacemaker on Coumadin is admitted to the hospital from the Coumadin clinic due to supratherapeutic INR (10.2). Pt noted fall with findings of T10 fx, acute pyelo, sigmoid diverticultis, lung nodule and thyroid nodules on imaging. supratherpeutic INR Currently therapeutic, we will resume home warfarin doses and check daily INR Daily INR checks Acute pyelonephritis with R ureteral stent from a stent placed 1.5 years ago which is the likely source of UTIs recurrent MPRESSION: 1. No hemoperitoneum or abdominal organ injury. 2. There is a right-sided ureteral stent. There is mild right-sided pelviectasis and infiltration of fat adjacent to the right renal pelvis. Recommend correlation with urinalysis to exclude pyelonephritis. 3. There may be a mild degree of diverticulitis of the proximal sigmoid colon. 4. There are 2 small nonobstructive calculi within the right kidney. - continue ceftriaxone pending urine culture - urology consult, stent present x1.5 years, never changed per pt to undergo operative management as apparently the stent is now calcified - monitor CBC and BMP sigmoid diverticulitis on CT - pt reporting LLQ pain and bowel irregularity - ceftriaxone and flagyl - advanced diet as tolerated Protein calorie malnutrition Dietary consult placed Protein supplementation ARIADNA on CKD prerenal and renal etiology - treat prerenal with IVF and renal with antibiotics - avoid nephrotoxins - monitor cr acute hyperkalemia, prolonged QTC - mild hyperkalemia, likely resolved with IVF - recheck BMP now - repeat EKG when lytes normalized T10 fracture on CT - ED provider spoke with [facility] neurosurgery who suggested fx appears stable, no need for transfer - pain management - ortho consult lung nodule on CT - repeat chest CT in 3 mo outpt thyroid nodules on CT - f/u output for thyroid US paroxysmal a fib - amiodarone and metoprolol, hold metoprolol if SBP <90 - hold coumadin GORDON - CPAP at bedtime HFrEF, no acute exacerbation - BNP around baseline, no evidence of fluid overload - continue spironolactone - limit IVF - monitor for fluid overload HTN - hold amlodipine, lisinopril, carvidelol HLD - hold statin due to ARIADNA Breast mass- noted on physical exam-mammogram outpatient settings DNI VTE prophy: Warfarin Pt with supra therapeutic INR, found to have T10 fracture, acute pyelonephritis and diverticulitis on imaging, requiring admission for at least 2 midnight stay stabilization of INR, IV antibiotics, specialist consultations and monitoring. This note is constructed using voice recognition software. While every effort has been made to ensure accuracy, spinning bath patroller errors may have been included. Quality Stroke Does the patient have a stroke diagnosis?: No VTE Prior VTE?: No VTE Risk Level:: Medical - moderate - high VTE Device Contraindication: N/A - Device Ordered VTE Drug Contraindication: Treatment Not Indicated
[2025-04-17 07:41] LABS: MANUAL DIFF FLAG NO
[2025-04-17 07:43] LABS: Hematocrit 36.2 % (37.0-47.0); Hemoglobin 11.4 g/dl (12.0-16.0); Imm Gran Abs Auto 0.00 X10*3/uL (0.00-0.03); Imm Gran Pct Auto 0.0 % (0.0-0.4); Lymphocytes Absolute Auto 1.4 X10*3/uL (1.2-4.9); Mean Corpuscular HGB Conc 31.5 g/dl (31.0-35.0); Mean Corpuscular Hemoglobin 28.1 pg (27.0-33.0); Mean Corpuscular Volume 89.4 fL (80.0-98.0); NRBC Abs Auto 0.000 X10*3/uL (0.0-0.012); NRBC Pct Auto 0.0 /100WBC (0.0-0.2); Platelet Count 128 X10*3/uL (160-400); Red Blood Count 4.05 X10*6/uL (4.20-5.50); White Blood Count 5.4 X10*3/uL (4.8-10.8)
[2025-04-17 07:51] LABS: INTERNATIONAL NORM RATIO 3.1 (0.9-1.1); Prothrombin Time 36.7 SEC (11.2-13.5)
[2025-04-17 08:03] LABS: Alanine Aminotransferase 16 U/L (0-31); Albumin Level 2.9 g/dL (3.5-5.0); Alkaline Phosphatase 95 U/L (39-117); Anion Gap 10 (12-20); Aspartate Amino Transferase 30 U/L (5-31); Blood Urea Nitrogen 38 mg/dL (9-16); Calcium 8.9 mg/dL (8.4-10.2); Carbon Dioxide 23 mmol/L (22-29); Chloride 116 mmol/L (96-108); Creatinine Clr Calc Pharmacy 30.9; Estimated Glomerular Filt Rate 45; Magnesium 1.9 mg/dL (1.6-2.6); Potassium 4.5 mmol/L (3.3-5.1); Sodium 144 mmol/L (135-145); Total Protein 5.3 g/dL (6.5-8.0)
[2025-04-17] MEDS: 0.9 % Sodium Chloride Flush 3 ML SYRINGE IVFLUSH ×2 (08:17→14:16)
[2025-04-17] MEDS: Lactated Ringers 1,000 ML 50 ML IVCONT (14:25)
--- NOTE | 2025-04-17 17:11 | P.CDIM_ITS ---
PROVIDER RESPONSE TEXT: To clarify, the appropriate diagnosis supported by the clinical indicators: Pressure Injury Stage II coccyx QUERY TEXT: PHYSICIAN'S DOCUMENTATION REQUEST Date of Query: 04/16/2025 11:33 AM EST Patient Name: Ramona Pinon Admit Date: 04/16/2025 Dear Peggy Prado MD, A review of the medical record indicates additional documentation may be needed. Please review below and update the documentation accordingly. Clinical Indicators: Wound care notes 04/15/25 - Pressure injury Stage 2 coccyx. Patient arrived from ED with open Stage 2 coccyx. Cleaned, Triad and foam dsg applied. Based on the above, could you please provide further information regarding the ulcer/wound/injury: Pressure Injury Stage II coccyx Other specified Other (explain) Clinically unable to determine (explain) Thank you, Emmy Enriquez, CCS, CDIS Use of terms such as suspected, likely, concern for, or probable (associated with a specific diagnosis that is being evaluated, monitored, or treated as if it exists) are acceptable and can be coded in the inpatient setting, when documented at the time of discharge. Please use your independent medical judgment in providing your response. THIS QUERY IS PART OF THE PERMANENT MEDICAL RECORD
[2025-04-17] MEDS: Warfarin Sodium 1.25 MG HALFTAB PO (17:41)
[2025-04-18] VITALS (7 sets, daily range): BP systolic 101–123; BP diastolic 55–84; PULSE 80–113; RESP 16–18; TEMP 36.3–37.4; O2SAT 92–97
[2025-04-18 07:35] LABS: MANUAL DIFF FLAG NO
[2025-04-18 07:42] LABS: Hematocrit 34.7 % (37.0-47.0); Hemoglobin 10.9 g/dl (12.0-16.0); Imm Gran Abs Auto 0.02 X10*3/uL (0.00-0.03); Imm Gran Pct Auto 0.3 % (0.0-0.4); Lymphocytes Absolute Auto 1.1 X10*3/uL (1.2-4.9); Mean Corpuscular HGB Conc 31.4 g/dl (31.0-35.0); Mean Corpuscular Hemoglobin 28.3 pg (27.0-33.0); Mean Corpuscular Volume 90.1 fL (80.0-98.0); NRBC Abs Auto 0.000 X10*3/uL (0.0-0.012); NRBC Pct Auto 0.0 /100WBC (0.0-0.2); Platelet Count 134 X10*3/uL (160-400); Red Blood Count 3.85 X10*6/uL (4.20-5.50); White Blood Count 5.9 X10*3/uL (4.8-10.8)
[2025-04-18 07:44] LABS: INTERNATIONAL NORM RATIO 3.0 (0.9-1.1); Prothrombin Time 35.9 SEC (11.2-13.5)
[2025-04-18 08:06] LABS: Alanine Aminotransferase 14 U/L (0-31); Albumin Level 2.8 g/dL (3.5-5.0); Alkaline Phosphatase 93 U/L (39-117); Anion Gap 9 (12-20); Aspartate Amino Transferase 34 U/L (5-31); Blood Urea Nitrogen 24 mg/dL (9-16); Calcium 8.3 mg/dL (8.4-10.2); Carbon Dioxide 24 mmol/L (22-29); Chloride 109 mmol/L (96-108); Creatinine Clr Calc Pharmacy 41.7; Estimated Glomerular Filt Rate > 60; Magnesium 1.6 mg/dL (1.6-2.6); Potassium 4.0 mmol/L (3.3-5.1); Sodium 138 mmol/L (135-145); Total Protein 4.9 g/dL (6.5-8.0)
[2025-04-18] MEDS: 0.9 % Sodium Chloride Flush 3 ML SYRINGE IVFLUSH (09:50)
--- NOTE | 2025-04-18 15:12 | MHC.CM.PN ---
CM MET WITH PT AND FAMILY AT BEDSIDE PT LIVES WITH HER AND IS INDEPENDENT WITH SELF CARE SHE IS ACTIVE WITH [facility] AND [facility] SHE HAS A CPAP, WALKER AND STAIR LIFT FOR DME PCP: MILEY LIU HCP ON FILE IMM DELIVERED 04/17/25 DCP: HOME, RESUME [facility] AND [facility]OUND CARE FAMILY TO TRANSPORT
--- NOTE | 2025-04-18 16:35 | P.PNIM_ITS ---
Subjective Subjective Date of Service: 04/18/25 Interval History: Complains of lower back pain since fall at home in bathroom around 2 weeks ago Denies any other acute medical complaints Creatinine normalized Repeat BCx negative after 24 hours Review of Systems Review of Systems: Yes all other systems are reviewed and are negative Physical Exam 2 Exam: Exam: General: AOx3, frail and chronically weak appearing Resp: CTA bilaterally CVS: Irregularly irregular rhythm GI: +BS, NT, no distention Skin: Warm, dry Neuro: Cranial nerves II-XII grossly intact bilaterally. Motor grossly intact bilaterally. Global though symmetric weakness Extremities: No edema Psych: Appropriate affect Vital Signs: Vital Signs: Last Vital Signs Temp 97.4 F 04/18/25 15:57 Pulse 83 04/18/25 15:57 Resp 16 04/18/25 15:57 BP 114/57 L 04/18/25 15:57 Pulse Ox 96 04/18/25 15:57 O2 Del Method Room Air 04/18/25 15:57 BMI result Body Mass Index 22.7 Objective Data Active Medications Acetaminophen (Acetaminophen 325 Mg Tablet) 650 mg PO Q6H PRN PRN Reason: Pain, Mild 1-3,fever,headache Last Admin: 04/18/25 13:40 Dose: 650 mg Documented By: BIN Albuterol Sulfate (Albuterol Sulfate 90 Mcg 8 Gm Inhaler) 2 puff INHALE Q4H PRN PRN Reason: shortness of breath or wheezing Amiodarone HCl (Amiodarone Hcl 200 Mg Tablet) 200 mg PO DAILY [facility] Last Admin: 04/18/25 09:49 Dose: 200 mg Documented By: BIN Atorvastatin Calcium (Atorvastatin Calcium 80 Mg Tablet) 80 mg PO DAILY [facility] Last Admin: 04/18/25 09:49 Dose: 80 mg Documented By: BIN Benzonatate (Benzonatate 100 Mg Capsule) 100 mg PO TID PRN PRN Reason: Cough Last Admin: 04/18/25 13:43 Dose: 100 mg Documented By: BIN Calcium Carbonate (Calcium Carbonate 750 Mg Tab.Chew) 750 mg PO Q4H PRN PRN Reason: Heartburn Furosemide (Furosemide 40 Mg Tablet) 40 mg PO BID [facility]; Protocol Last Admin: 04/18/25 09:49 Dose: 40 mg Documented By: BIN Ceftriaxone Sodium 1 gm/ (Sodium Chloride) 50 mls @ 100 mls/hr IV Q24H [facility] Last Infusion: 04/17/25 22:58 Dose: Infused Documented By: HAWK Vancomycin HCl 750 mg/ Sodium (Chloride) 265 mls @ 265 mls/hr IV Q24H [facility] Last Infusion: 04/17/25 23:28 Dose: Infused Documented By: HAWK Magnesium Hydroxide (Milk Of Magnesia 30 Ml Oral.Susp) 30 ml PO DAILY PRN PRN Reason: Constipation Melatonin (Melatonin 3 Mg Tablet) 6 mg PO BEDTIME PRN PRN Reason: Insomnia Metronidazole (Metronidazole 500 Mg Tablet) 500 mg PO Q8H [facility] Last Admin: 04/18/25 13:39 Dose: 500 mg Documented By: BIN Nystatin (Nystatin Powder 15 Gm Bottle) 1 appl TOPICAL BID [facility]; Protocol Last Admin: 04/18/25 09:49 Dose: 1 appl Documented By: BIN Omeprazole (Omeprazole 20 Mg Capsule.Dr) 20 mg PO BID@0630,1630 [facility] Last Admin: 04/18/25 05:21 Dose: 20 mg Documented By: HAWK Oxycodone HCl (Oxycodone Hcl Immed Release 5 Mg Tablet) 5 mg PO Q6H PRN PRN Reason: Pain, Severe (Pain Scale 7-10) Pharmacy Consult (Consult Rx Vancomycin Dosing) 1 each MISCELLANE DAILY PRN PRN Reason: Consult order Sodium Chloride (0.9 % Sodium Chloride Flush 3 Ml Syringe) 3 ml IVFLUSH [facility] Last Admin: 04/18/25 09:50 Dose: 3 ml Documented By: BIN Spironolactone (Spironolactone 25 Mg Tablet) 12.5 mg PO DAILY [facility]; Protocol On Hold: 04/16/25 12:09 Last Admin: 04/16/25 09:45 Dose: Not Given Documented By: KEVIN Non-Admin Reason: BP 90/55 Thiamine HCl (Thiamine Hcl 100 Mg Tablet) 100 mg PO DAILY [facility] Last Admin: 04/18/25 09:49 Dose: 100 mg Documented By: BIN Tramadol HCl (Tramadol Hcl 50 Mg Tablet) 50 mg PO Q6H PRN PRN Reason: Pain, Moderate(Pain Scale 4-6) Last Admin: 04/17/25 22:11 Dose: 50 mg Documented By: HAWK Warfarin Sodium (Warfarin Sodium 2.5 Mg Tablet) 2.5 mg PO SUTUTH@1800 VIOLETA Warfarin Sodium (Warfarin Sodium 1.25 Mg Halftab) 1.25 mg PO MOWEFRSA@1800 VIOLETA Last Admin: 04/17/25 17:41 Dose: 1.25 mg Documented By: WALDEMAR Labs 04/18/25 06:59 04/18/25 06:58 Labs: Laboratory Results - last 24 hr 04/18/25 04/18/25 06:58 06:59 MCV 90.1 MCH 28.3 MCHC 31.4 RDW 16.0 Plt Count 134 L MPV 10.3 Immature Gran % (Auto) 0.3 Neut % (Auto) 73.9 H Lymph % (Auto) 18.2 L [place] % (Auto) 6.5 Eos % (Auto) 0.8 Baso % (Auto) 0.3 Lymph # (Auto) 1.1 L [place] # (Auto) 0.4 Eos # (Auto) 0.1 Baso # (Auto) 0.0 Abs Immat Gran (auto) 0.02 Absolute Neuts (auto) 4.4 Absolute Nucleated RBC 0.000 Nucleated RBC % (auto) 0.0 PT 35.9 H INR 3.0 H Anion Gap 9 L Estim Creat Clear Calc 41.7 Estimated GFR > 60 Random Glucose 101 Calcium 8.3 L D Magnesium 1.6 Total Bilirubin 0.5 AST 34 H ALT 14 Alkaline Phosphatase 93 Total Protein 4.9 L Albumin 2.8 L Microbiology Microbiology Results: Microbiology 04/17/25 09:13 Blood Culture - Preliminary Blood - Venous No growth after 24 hours. Blood Culture - Preliminary No growth after 24 hours. 04/17/25 09:12 Blood Culture - Preliminary Blood - Venous No growth after 24 hours. 04/15/25 20:28 Blood Culture - Final Blood - Venous Streptococcus viridans group 04/15/25 Unknown Urine Culture - Final Urine clean catch Escherichia coli 04/15/25 20:50 Blood Culture - Preliminary Blood - Venous No growth after 48 hours. Assessment and Plan (1) Pyelonephritis: Status: Acute Plan 84-year-old lady with PMH of pertinent for CKD, nephrolithiasis with right ureteral stent placed 1.5 years ago, hypertension, hyperlipidemia, GORDON on CPAP, pulmonary hypertension, HFrEF (EF 20%), paroxysmal AFib, porcine mitral valve replacement, AICD status post pacemaker on Coumadin is admitted to the hospital from the Coumadin clinic due to supratherapeutic INR (10.2). Pt noted fall with findings of T10 fx, acute pyelo, sigmoid diverticultis, lung nodule and thyroid nodules on imaging. Acute pyelonephritis with retained, calcified right ureteral stent placed 1.5 years ago - likely source of UTIs recurrent - continue ceftriaxone - urology consulted, plan on stent removal on Saturday - hold coumadin pending stent removal - monitor CBC and BMP sigmoid diverticulitis on CT - pt reporting LLQ pain and bowel irregularity - ceftriaxone and flagyl - advanced diet as tolerated Protein calorie malnutrition - dietary consult placed - protein supplementation ARIADNA on CKD prerenal and renal etiology, resolved - treat prerenal with IVF and renal with antibiotics - avoid nephrotoxins - monitor cr acute hyperkalemia, prolonged QTC, resolved - mild hyperkalemia, resolved with IVF - recheck BMP now - repeat EKG when lytes normalized T10 fracture on CT - likely secondary to fall at home in bathroom 2 weeks prior; pt hit back on toilet, did not seek medical evaluation at that time - ED provider spoke with [facility] neurosurgery who suggested fx appears stable, no need for transfer - pain management - outpatient evaluation - PT consult lung nodule on CT - repeat chest CT in 3 mo outpt thyroid nodules on CT - f/u output for thyroid US paroxysmal a fib with supratherapeutic INR - amiodarone and metoprolol, hold metoprolol if SBP <90 - INR initially 10.5, currenlty 3.0 - goal INR 2.0-3.0 - hold coumadin pending stent removal GORDON - CPAP at bedtime HFrEF, no acute exacerbation - BNP around baseline, no evidence of fluid overload - continue spironolactone - limit IVF - monitor for fluid overload HTN - hold amlodipine, lisinopril, carvidelol due to soft BP HLD - continue statin due to ARIADNA Breast mass - noted on physical exam -mammogram outpatient settings DNI VTE prophy: Warfarin Pt with supra therapeutic INR, found to have T10 fracture, acute pyelonephritis and diverticulitis on imaging, requiring admission for at least 2 midnight stay stabilization of INR, IV antibiotics, specialist consultations and monitoring. This note is constructed using voice recognition software. While every effort has been made to ensure accuracy, community relations representative errors may have been included. Quality Stroke Does the patient have a stroke diagnosis?: No VTE Prior VTE?: No VTE Risk Level:: Medical - moderate - high VTE Device Contraindication: N/A - Device Ordered VTE Drug Contraindication: Treatment Not Indicated
[2025-04-19] VITALS (8 sets, daily range): BP systolic 98–118; BP diastolic 56–71; PULSE 79–119; RESP 15–18; TEMP 36.2–37.2; O2SAT 90–95
--- NOTE | 2025-04-19 | ECG_ITS ---
Test Reason : chest pain Blood Pressure : */* mmHG Vent. Rate : 98 BPM Atrial Rate : 100 BPM P-R Int : * ms QRS Dur : 150 ms QT Int : 450 ms P-R-T Axes : * 56 225 degrees QTcB Int : 574 ms Ventricular-paced rhythm Abnormal ECG When compared with ECG of 15-Apr-2025 15:48, Vent. rate has increased by 17 bpm Referred By: Blas Ramirez Electronically Signed By: NATE VILLEGAS
[2025-04-19 07:21] LABS: MANUAL DIFF FLAG NO
[2025-04-19 07:35] LABS: INTERNATIONAL NORM RATIO 4.0 (0.9-1.1); Prothrombin Time 46.7 SEC (11.2-13.5)
[2025-04-19 07:38] LABS: Hematocrit 38.3 % (37.0-47.0); Hemoglobin 12.1 g/dl (12.0-16.0); Imm Gran Abs Auto 0.04 X10*3/uL (0.00-0.03); Imm Gran Pct Auto 0.6 % (0.0-0.4); Lymphocytes Absolute Auto 0.5 X10*3/uL (1.2-4.9); Mean Corpuscular HGB Conc 31.6 g/dl (31.0-35.0); Mean Corpuscular Hemoglobin 28.3 pg (27.0-33.0); Mean Corpuscular Volume 89.7 fL (80.0-98.0); NRBC Abs Auto 0.000 X10*3/uL (0.0-0.012); NRBC Pct Auto 0.0 /100WBC (0.0-0.2); Platelet Count 113 X10*3/uL (160-400); Red Blood Count 4.27 X10*6/uL (4.20-5.50); White Blood Count 6.5 X10*3/uL (4.8-10.8)
[2025-04-19 07:48] LABS: Alanine Aminotransferase 15 U/L (0-31); Albumin Level 3.0 g/dL (3.5-5.0); Alkaline Phosphatase 103 U/L (39-117); Anion Gap 11 (12-20); Aspartate Amino Transferase 38 U/L (5-31); Blood Urea Nitrogen 18 mg/dL (9-16); Calcium 8.0 mg/dL (8.4-10.2); Carbon Dioxide 27 mmol/L (22-29); Chloride 106 mmol/L (96-108); Creatinine Clr Calc Pharmacy 43.2; Estimated Glomerular Filt Rate > 60; Magnesium 1.5 mg/dL (1.6-2.6); Potassium 3.7 mmol/L (3.3-5.1); Sodium 140 mmol/L (135-145); Total Protein 5.3 g/dL (6.5-8.0)
--- NOTE | 2025-04-19 08:32 | HO.PM.IMPN ---
Subjective Subjective Date of Service: 04/19/25 Interval History: INR again supratherapeutic at 4.0; warfarin on hold Magnesium mildly low Pt complains of intermittent sharp and stabbing left-sided chest pain under her ribs, ongoing since yesterday CP positional: worse with sitting up and breathing Had small bowel movement yesterday afternoon Review of Systems Review of Systems: Yes all other systems are reviewed and are negative Physical Exam Exam: Exam: General: AOx3, frail and chronically weak appearing Resp: CTA bilaterally CVS: Irregularly irregular rhythm GI: +BS, NT, no distention Skin: Warm, dry Neuro: Cranial nerves II-XII grossly intact bilaterally. Motor grossly intact bilaterally. Global though symmetric weakness Extremities: No edema Psych: Appropriate affect Vital Signs: Vital Signs: Last Vital Signs Temp 98.0 F 04/19/25 07:56 Pulse 96 04/19/25 07:56 Resp 17 04/19/25 07:56 BP 113/61 04/19/25 07:56 Pulse Ox 95 04/19/25 07:56 O2 Del Method Room Air 04/19/25 07:56 BMI result Body Mass Index 22.7 Objective Data Active Medications Acetaminophen (Acetaminophen 325 Mg Tablet) 650 mg PO Q6H PRN PRN Reason: Pain, Mild 1-3,fever,headache Last Admin: 04/18/25 22:18 Dose: 650 mg Documented By: IVETTE Albuterol Sulfate (Albuterol Sulfate 90 Mcg 8 Gm Inhaler) 2 puff INHALE Q4H PRN PRN Reason: shortness of breath or wheezing Amiodarone HCl (Amiodarone Hcl 200 Mg Tablet) 200 mg PO DAILY [facility] Last Admin: 04/18/25 09:49 Dose: 200 mg Documented By: BIN Atorvastatin Calcium (Atorvastatin Calcium 80 Mg Tablet) 80 mg PO DAILY [facility] Last Admin: 04/18/25 09:49 Dose: 80 mg Documented By: BIN Benzonatate (Benzonatate 100 Mg Capsule) 100 mg PO TID PRN PRN Reason: Cough Last Admin: 04/18/25 22:18 Dose: 100 mg Documented By: IVETTE Calcium Carbonate (Calcium Carbonate 750 Mg Tab.Chew) 750 mg PO Q4H PRN PRN Reason: Heartburn Furosemide (Furosemide 40 Mg Tablet) 40 mg PO BID [facility]; Protocol Last Admin: 04/18/25 22:01 Dose: 40 mg Documented By: IVETTE Ceftriaxone Sodium 1 gm/ (Sodium Chloride) 50 mls @ 100 mls/hr IV Q24H [facility] Last Infusion: 04/18/25 22:48 Dose: Infused Documented By: IVETTE Vancomycin HCl 1,000 mg/ (Sodium Chloride) 270 mls @ 270 mls/hr IV Q24H [facility] Last Infusion: 04/18/25 23:35 Dose: Infused Documented By: IVETTE Magnesium Hydroxide (Milk Of Magnesia 30 Ml Oral.Susp) 30 ml PO DAILY PRN PRN Reason: Constipation Melatonin (Melatonin 3 Mg Tablet) 6 mg PO BEDTIME PRN PRN Reason: Insomnia Metronidazole (Metronidazole 500 Mg Tablet) 500 mg PO Q8H [facility] Last Admin: 04/19/25 05:31 Dose: 500 mg Documented By: IVETTE Nystatin (Nystatin Powder 15 Gm Bottle) 1 appl TOPICAL BID [facility]; Protocol Last Admin: 04/18/25 22:09 Dose: 1 appl Documented By: IVETTE Omeprazole (Omeprazole 20 Mg Capsule.Dr) 20 mg PO BID@0630,1630 [facility] Last Admin: 04/19/25 05:31 Dose: 20 mg Documented By: IVETTE Oxycodone HCl (Oxycodone Hcl Immed Release 5 Mg Tablet) 5 mg PO Q6H PRN PRN Reason: Pain, Severe (Pain Scale 7-10) Pharmacy Consult (Consult Rx Vancomycin Dosing) 1 each MISCELLANE DAILY PRN PRN Reason: Consult order Sodium Chloride (0.9 % Sodium Chloride Flush 3 Ml Syringe) 3 ml IVFLUSH QSHIFT [facility] Last Admin: 04/19/25 00:13 Dose: Not Given Documented By: IVETTE Non-Admin Reason: abx running Spironolactone (Spironolactone 25 Mg Tablet) 12.5 mg PO DAILY [facility]; Protocol On Hold: 04/16/25 12:09 Last Admin: 04/16/25 09:45 Dose: Not Given Documented By: KEVIN Non-Admin Reason: BP 90/55 Thiamine HCl (Thiamine Hcl 100 Mg Tablet) 100 mg PO DAILY [facility] Last Admin: 04/18/25 09:49 Dose: 100 mg Documented By: BIN Tramadol HCl (Tramadol Hcl 50 Mg Tablet) 50 mg PO Q6H PRN PRN Reason: Pain, Moderate(Pain Scale 4-6) Last Admin: 04/17/25 22:11 Dose: 50 mg Documented By: HAWK Warfarin Sodium (Warfarin Sodium 1.25 Mg Halftab) 1.25 mg PO MOWEFRSA@1800 VIOLETA On Hold: 04/18/25 16:56 Last Admin: 04/17/25 17:41 Dose: 1.25 mg Documented By: WALDEMAR Labs 04/19/25 07:11 04/19/25 07:11 Labs: Laboratory Results - last 24 hr 04/18/25 04/19/25 21:00 07:11 MCV 89.7 MCH 28.3 MCHC 31.6 RDW 16.0 Plt Count 113 L MPV 9.6 Immature Gran % (Auto) 0.6 H Neut % (Auto) 85.7 H Lymph % (Auto) 8.0 L Bull[place] % (Auto) 5.7 Eos % (Auto) 0.0 Baso % (Auto) 0.0 Lymph # (Auto) 0.5 L [place] # (Auto) 0.4 Eos # (Auto) 0.0 Baso # (Auto) 0.0 Abs Immat Gran (auto) 0.04 H Absolute Neuts (auto) 5.6 Absolute Nucleated RBC 0.000 Nucleated RBC % (auto) 0.0 PT 46.7 H D INR 4.0 H Anion Gap 11 L Estim Creat Clear Calc 43.2 Estimated GFR > 60 Random Glucose 115 Calcium 8.0 L Magnesium 1.5 L Total Bilirubin 0.6 AST 38 H ALT 15 Alkaline Phosphatase 103 Total Protein 5.3 L Albumin 3.0 L Random Vancomycin 11.4 L Microbiology Microbiology Results: Microbiology 04/17/25 09:13 Blood Culture - Preliminary Blood - Venous No growth after 24 hours. Blood Culture - Preliminary No growth after 24 hours. 04/17/25 09:12 Blood Culture - Preliminary Blood - Venous No growth after 24 hours. 04/15/25 20:28 Blood Culture - Final Blood - Venous Streptococcus viridans group 04/15/25 Unknown Urine Culture - Final Urine clean catch Escherichia coli Assessment and Plan (1) Pyelonephritis: Status: Acute Plan 84-year-old lady with PMH of pertinent for CKD, nephrolithiasis with right ureteral stent placed 1.5 years ago, hypertension, hyperlipidemia, GORDON on CPAP, pulmonary hypertension, HFrEF (EF 20%), paroxysmal AFib, porcine mitral valve replacement, AICD status post pacemaker on Coumadin is admitted to the hospital from the Coumadin clinic due to supratherapeutic INR (10.2). Pt noted fall with findings of T10 fx, acute pyelo, sigmoid diverticultis, lung nodule and thyroid nodules on imaging. Acute pyelonephritis with retained, calcified right ureteral stent placed 1.5 years ago - likely source of recurrent UTIs - continue ceftriaxone - urology consulted, plan on stent removal on Saturday; NPO past midnight - will need cardiology clearance for surgery - hold coumadin pending stent removal - monitor CBC and BMP elevated troponins - mildly elevated and flat at 27.3 with repeat 31.3 - pt was sharp and stabbing chest pain, appears pleuritic in nature - monitor on telemetry question of sigmoid diverticulitis - as seen on CT - pt reporting LLQ pain and bowel irregularity - ceftriaxone and flagyl - currently tolerating full diet, abd pain resolved Protein calorie malnutrition - dietary consult placed - protein supplementation ARIADNA on CKD prerenal and renal etiology, resolved - treat prerenal with IVF and renal with antibiotics - avoid nephrotoxins - monitor cr acute hyperkalemia, prolonged QTC, resolved - mild hyperkalemia, resolved with IVF - recheck BMP now - repeat EKG when lytes normalized T10 fracture on CT - likely secondary to fall at home in bathroom 2 weeks prior; pt hit back on toilet, did not seek medical evaluation at that time - ED provider spoke with [facility] neurosurgery who suggested fx appears stable, no need for transfer - pain management - outpatient evaluation - PT consult lung nodule on CT - repeat chest CT in 3 mo outpt thyroid nodules on CT - f/u output for thyroid US paroxysmal a fib with supratherapeutic INR - amiodarone and metoprolol, hold metoprolol if SBP <90 - INR initially 10.5, currenlty 3.0 - goal INR 2.0-3.0 - hold coumadin pending stent removal GORDON - CPAP at bedtime HFrEF, no acute exacerbation - BNP around baseline, no evidence of fluid overload - continue spironolactone - limit IVF - monitor for fluid overload HTN - hold amlodipine, lisinopril, carvidelol due to soft BP HLD - continue statin due to ARIADNA Breast mass - noted on physical exam -mammogram outpatient settings DNI VTE prophy: Warfarin Pt requires continued hospitalization as she will undergo ureteral stent removal tomorrow. Pt will continue to need IV antibiotics and close monitoring gene of labs and cardiac function. Pt will then need PT evaluation post surgery for safe disposition. Quality Stroke Does the patient have a stroke diagnosis?: No VTE Prior VTE?: No VTE Risk Level:: Medical - moderate - high VTE Device Contraindication: N/A - Device Ordered VTE Drug Contraindication: Treatment Not Indicated
[2025-04-19] MEDS: 0.9 % Sodium Chloride Flush 3 ML SYRINGE IVFLUSH ×3 (09:02→21:56)
[2025-04-19 09:44] LABS: Troponin-I High Sensitivity 27.3 ng/L (<3.5-17.0)
--- NOTE | 2025-04-19 10:40 | HO.ANESPROP2 ---
HPI - Anesthesia Eval Consult details Narrative: 84 yr old female for right Cystoscopy, Ureteroroscopy, Retro, Laser,with possible stent exchange *DNR/DNI INR 1.4 on 05/03/25 s/p cysto 11/2023 with GA, LMA 3 Readmitted from rehab 04/28/25 with recent Influenza A, accidental oxycodone overdose which she was given at rehab for back pain. Hemoptysis: reported 05/02/25, on 1-2 liters O2. Admitted 04/15-04/25/25 -Inpatient cardiology consult on 04/20, echo updated: Overall, many chronic cardiac issues but seems stable overall. Her cardiac risk for general anesthesia would be intermediate to high. Not modifiable. May proceed as planned. -Chronic heart failure: no acute symptoms, not volume overloaded -Severe biventricular dysfunction by echo: echo updated 04/17/25, EF 15-20%, see below. -S/P pacemaker update to [employer] 10/2024 -Porcine mitral valve replacement at [facility] in 2020, also tricuspid valve repair. -T10 fracture on CT: likely secondary to fall at home in bathroom 2 weeks prior to 04/15 admission; pt hit back on toilet, did not seek medical evaluation at that time Acute on chronic kidney disease: seen by nephro 04/17, baseline creatinine is 0.9 - 1.1; which increased to 2.71 upon presentation upon gentle fluid resuscitation it is trending down GORDON: on CPAP PMFSH Active Problems Active Problems: All Active Problems Acute hypernatremia (Acute) Acute hyperkalemia (Acute) Thyroid nodule incidentally noted on imaging study (Acute) Thyroid nodule (Acute) Lung nodule (Acute) Prolonged QT interval (Acute) Sigmoid diverticulitis (Acute) Pyelonephritis (Acute) Supratherapeutic INR (Acute) Elevated INR (Acute) Acute kidney injury superimposed on chronic kidney disease (Acute) Hospital discharge follow-up (Acute) Acute on chronic systolic heart failure (Acute) HFrEF (heart failure with reduced ejection fraction) (Acute) Wound, open, leg (Acute) Piriformis syndrome of left side (Acute) Hip pain, left (Acute) Ureteral stent present (Acute) Ureteral stone (Acute) Closed fracture of left tibial plateau (Acute) CKD (chronic kidney disease) stage 3, GFR 30-59 ml/min (Acute) Bilateral kidney stones (Acute) Bilateral lower extremity edema (Acute) SOB (shortness of breath) (Acute) Hypokalemia (Acute) Vitamin D deficiency (Acute) Kidney stone (Acute) Annual physical exam (Acute) Nephrolithiasis, uric acid (Acute) Hyperlipidemia (Acute) HTN (hypertension) (Acute) A-fib (Acute) GORDON (obstructive sleep apnea) (Acute) COPD (chronic obstructive pulmonary disease) (Acute) Pulmonary HTN (Acute) Severe mitral regurgitation (Acute) Thiamine deficiency (Acute) Osteoporosis (Acute) Current use of anticoagulant therapy (Acute) Past Medical History Medical History HFrEF (heart failure with reduced ejection fraction) Chronic atrial fibrillation Chronic anticoagulation Obesity CKD (chronic kidney disease) stage 3, GFR 30-59 ml/min Nephrolithiasis, uric acid Hyperlipidemia HTN (hypertension) A-fib GORDON (obstructive sleep apnea) COPD (chronic obstructive pulmonary disease) Pulmonary HTN Severe mitral regurgitation Thiamine deficiency Osteoporosis Functional capacity: independent ambulation Family History Family History Father No problems noted. Mother No problems noted. Maternal Aunt Breast cancer Family history of problems with anesthesia: No Surgical History Surgical History Hx of hernia repair History of open reduction and internal fixation (ORIF) procedure History of Problems with Anesthesia: No Social History Social History Household Members: None Housing: Other Housing Other:: [facility] Do you presently have visiting nurse or other home services: No Alcohol intake: never Patient Tobacco Use Status: Former Tobacco user Tobacco use type: Cigarette Smoked in Last 30 Days: No e-Cigarette/Vaping Use: Never Used Second Hand Smoke Exposure: No Use of substances other than those prescribed or required for medical reasons: No Currently Displaying Signs/Symptoms of Drug Intoxication Withdrawal: No Advance Directives: Yes Advance Directives on File: Yes Advance Directives Date on File: 11/28/23 Do you have a plan to hurt others: No Plan Recently lost weight without trying: Unsure Nutrition Risks: Emaciation/Cachexia and On aspiration precautions Patient : No service: No Current occupational status: retired Cognitive needs: No Hearing needs: No Vision needs: No Meds Allergies Allergy/AdvReac Type Severity Reaction Status Date / Time hydrocodone (From Vicodin) Allergy Mild CHEST PAIN Verified 04/28/25 17:16 Active Medications: Current Medications Acetaminophen (Acetaminophen 325 Mg Tablet) 650 mg PO Q6H PRN PRN Reason: Pain, Mild 1-3,fever,headache Last Admin: 04/18/25 22:18 Dose: 650 mg Albuterol Sulfate (Albuterol Sulfate 90 Mcg 8 Gm Inhaler) 2 puff INHALE Q4H PRN PRN Reason: shortness of breath or wheezing Amiodarone HCl (Amiodarone Hcl 200 Mg Tablet) 200 mg PO DAILY [facility] Last Admin: 04/19/25 08:59 Dose: 200 mg Atorvastatin Calcium (Atorvastatin Calcium 80 Mg Tablet) 80 mg PO DAILY [facility] Last Admin: 04/19/25 08:59 Dose: 80 mg Benzonatate (Benzonatate 100 Mg Capsule) 100 mg PO TID PRN PRN Reason: Cough Last Admin: 04/18/25 22:18 Dose: 100 mg Calcium Carbonate (Calcium Carbonate 750 Mg Tab.Chew) 750 mg PO Q4H PRN PRN Reason: Heartburn Furosemide (Furosemide 40 Mg Tablet) 40 mg PO BID [facility]; Protocol Last Admin: 04/19/25 08:59 Dose: 40 mg Ceftriaxone Sodium 1 gm/ (Sodium Chloride) 50 mls @ 100 mls/hr IV Q24H [facility] Last Infusion: 04/18/25 22:48 Dose: Infused Vancomycin HCl 1,000 mg/ (Sodium Chloride) 270 mls @ 270 mls/hr IV Q24H [facility] Last Infusion: 04/18/25 23:35 Dose: Infused Magnesium Hydroxide (Milk Of Magnesia 30 Ml Oral.Susp) 30 ml PO DAILY PRN PRN Reason: Constipation Magnesium Oxide (Magnesium Oxide 400 Mg Tablet) 400 mg PO BIDPC VIOLETA Melatonin (Melatonin 3 Mg Tablet) 6 mg PO BEDTIME PRN PRN Reason: Insomnia Metronidazole (Metronidazole 500 Mg Tablet) 500 mg PO Q8H [facility] Last Admin: 04/19/25 05:31 Dose: 500 mg Nystatin (Nystatin Powder 15 Gm Bottle) 1 appl TOPICAL BID VIOLETA; Protocol Last Admin: 04/19/25 09:02 Dose: 1 appl Omeprazole (Omeprazole 20 Mg Capsule.) 20 mg PO BID@0630,1630 [facility] Last Admin: 04/19/25 05:31 Dose: 20 mg Oxycodone HCl (Oxycodone Hcl Immed Release 5 Mg Tablet) 5 mg PO Q6H PRN PRN Reason: Pain, Severe (Pain Scale 7-10) Pharmacy Consult (Consult Rx Vancomycin Dosing) 1 each MISCELLANE DAILY PRN PRN Reason: Consult order Sodium Chloride (0.9 % Sodium Chloride Flush 3 Ml Syringe) 3 ml IVFLUSH QSHIFT [facility] Last Admin: 04/19/25 09:02 Dose: 3 ml Spironolactone (Spironolactone 25 Mg Tablet) 12.5 mg PO DAILY [facility]; Protocol On Hold: 04/16/25 12:09 Last Admin: 04/16/25 09:45 Dose: Not Given Thiamine HCl (Thiamine Hcl 100 Mg Tablet) 100 mg PO DAILY [facility] Last Admin: 04/19/25 08:59 Dose: 100 mg Tramadol HCl (Tramadol Hcl 50 Mg Tablet) 50 mg PO Q6H PRN PRN Reason: Pain, Moderate(Pain Scale 4-6) Last Admin: 04/17/25 22:11 Dose: 50 mg Warfarin Sodium (Warfarin Sodium 1.25 Mg Halftab) 1.25 mg PO MOWEFRSA@1800 [facility] On Hold: 04/18/25 16:56 Last Admin: 04/17/25 17:41 Dose: 1.25 mg Home Medications ?Medication ?Instructions ?Recorded ?Confirmed ?Last Taken ?Type ascorbate calcium (vitamin C) 500 500 mg PO DAILY 01/04/23 04/29/25 04/28/25 History mg tablet [id number]-minerals 1 tab PO DAILY 01/04/23 04/29/25 12/07/24 History zinc gluconate 50 mg tablet 50 mg PO DAILY 01/04/23 04/29/25 04/28/25 History acetaminophen 325 mg capsule 650 mg PO Q6H PRN Fever Or Pain 01/20/24 04/29/25 04/27/25 History amiodarone 200 mg tablet 200 mg PO DAILY 07/27/24 04/29/25 04/15/25 History omeprazole 20 mg capsule,delayed 20 mg PO BID@0630,1630 12/07/24 04/29/25 04/28/25 History release thiamine HCl (vitamin B1) 100 mg 100 mg PO DAILY 01/12/25 04/29/25 Unknown History capsule amlodipine 5 mg tablet 5 mg PO DAILY 04/15/25 04/29/25 04/28/25 History carvedilol 12.5 mg tablet 12.5 mg PO BID 04/15/25 04/29/25 04/28/25 History furosemide 40 mg tablet (Lasix) 40 mg PO BID 04/15/25 04/29/25 04/28/25 History umeclidinium 62.5 mcg-vilanterol 1 inh inhalation DAILY 04/15/25 04/29/25 04/28/25 History 25 mcg/actuation powdr for inhalation (Anoro Ellipta) cholecalciferol (vitamin D3) 10 10 mcg PO DAILY 04/16/25 04/29/25 04/28/25 History mcg (400 unit) tablet (Vitamin D3) potassium chloride 20 mEq 20 meq PO DAILY 04/16/25 04/29/25 04/28/25 History tablet,extended release albuterol sulfate 90 mcg/actuation 2 puff inhalation Q4H PRN 04/29/25 04/29/25 Unknown History aerosol inhaler shortness of breath or wheezing ipratropium 0.5 mg-albuterol 3 mg 3 ml inhalation Q6H PRN Wheezing 04/29/25 04/29/25 04/28/25 History (2.5 mg base)/3 mL nebulization soln Exam Height,Weight and Vital Signs: Height 5 ft 3 in Weight 58.1 kg Last Vital Signs Temp 98.0 F 04/19/25 07:56 Pulse 96 04/19/25 07:56 Resp 17 04/19/25 07:56 BP 113/61 04/19/25 07:56 Pulse Ox 95 04/19/25 07:56 O2 Del Method Room Air 04/19/25 07:56 Pertinent Lab Results Pertinent Lab Results: Laboratory Tests 04/15/25 04/15/25 04/15/25 13:12 13:38 18:36 WBC 6.7 RBC 4.66 D Hgb 13.1 D Hct 41.3 D MCV 88.6 MCH 28.1 MCHC 31.7 RDW 16.1 H Plt Count 187 MPV 10.0 Immature Gran % (Auto) 0.3 Neut % (Auto) 75.5 H Lymph % (Auto) 16.6 L [place] % (Auto) 6.4 Eos % (Auto) 0.9 Baso % (Auto) 0.3 Lymph # (Auto) 1.1 L [place] # (Auto) 0.4 Eos # (Auto) 0.1 Baso # (Auto) 0.0 Abs Immat Gran (auto) 0.02 Absolute Neuts (auto) 5.1 Absolute Nucleated RBC 0.000 Nucleated RBC % (auto) 0.0 PT 121.1 H INR 10.5 H* D APTT 54.6 H Sodium 141 Potassium 5.3 H Chloride 113 H Carbon Dioxide 20 L Anion Gap 13 BUN 71 H Creatinine 2.71 H Estim Creat Clear Calc 15.5 Estimated GFR 17 Random Glucose 102 Lactic Acid Calcium 9.7 D Magnesium Total Bilirubin 0.6 AST 32 H ALT 21 Alkaline Phosphatase 119 H Total Creatine Kinase 72 Troponin I High Sens NT-Pro-B Natriuret Pep 9268.5 H Total Protein 6.5 Albumin 3.8 TSH Urine Color [place] A Urine Appearance Turbid Urine pH 5.0 Ur Specific [place] 1.010 Urine Protein 100 (2+) H Urine Glucose (UA) Negative Urine Ketones Negative Urine Blood Large (3+) H Urine Nitrite Positive H Ur Leukocyte Esterase Large (3+) H Urine RBC >20 H Urine WBC >50 H Ur Squamous Epith Cells 0-2 Urine Bacteria 3+ Hyaline Casts 0-2 Random Vancomycin Blood Type A Positive Antibody Screen NEGATIVE 04/15/25 04/15/25 04/16/25 20:28 22:53 05:24 WBC 5.7 RBC 4.23 Hgb 11.8 L Hct 37.5 MCV 88.7 MCH 27.9 MCHC 31.5 RDW 16.0 Plt Count 136 L D MPV 9.5 Immature Gran % (Auto) 0.4 Neut % (Auto) 73.2 H Lymph % (Auto) 17.4 L [place] % (Auto) 7.6 Eos % (Auto) 1.2 Baso % (Auto) 0.2 Lymph # (Auto) 1.0 L [place] # (Auto) 0.4 Eos # (Auto) 0.1 Baso # (Auto) 0.0 Abs Immat Gran (auto) 0.02 Absolute Neuts (auto) 4.2 Absolute Nucleated RBC 0.000 Nucleated RBC % (auto) 0.0 PT 77.4 H D INR 6.7 H* D APTT Sodium 144 146 H Potassium 4.9 5.0 Chloride 116 H 116 H Carbon Dioxide 20 L 23 Anion Gap 13 12 BUN 68 H 62 H Creatinine 2.23 H 1.96 H Estim Creat Clear Calc 18.8 20.2 Estimated GFR 21 24 Random Glucose 144 H 92 Lactic Acid 0.8 Calcium 9.2 9.1 Magnesium Total Bilirubin AST ALT Alkaline Phosphatase Total Creatine Kinase Troponin I High Sens NT-Pro-B Natriuret Pep Total Protein Albumin TSH Urine Color Urine Appearance Urine pH Ur Specific [place] Urine Protein Urine Glucose (UA) Urine Ketones Urine Blood Urine Nitrite Ur Leukocyte Esterase Urine RBC Urine WBC Ur Squamous Epith Cells Urine Bacteria Hyaline Casts Random Vancomycin Blood Type Antibody Screen 04/16/25 04/16/25 04/16/25 09:09 15:07 19:55 WBC RBC Hgb Hct MCV MCH MCHC RDW Plt Count MPV Immature Gran % (Auto) Neut % (Auto) Lymph % (Auto) [place] % (Auto) Eos % (Auto) Baso % (Auto) Lymph # (Auto) [place] # (Auto) Eos # (Auto) Baso # (Auto) Abs Immat Gran (auto) Absolute Neuts (auto) Absolute Nucleated RBC Nucleated RBC % (auto) PT INR APTT Sodium 147 H 145 144 Potassium 4.9 4.4 4.6 Chloride 116 H 114 H 114 H Carbon Dioxide 23 24 23 Anion Gap 13 11 L 12 BUN 60 H 53 H 48 H Creatinine 1.78 H 1.56 H 1.34 Estim Creat Clear Calc 22.3 23.0 26.8 Estimated GFR 27 32 38 Random Glucose 115 124 H 100 Lactic Acid Calcium 9.5 9.3 9.2 Magnesium Total Bilirubin AST ALT Alkaline Phosphatase Total Creatine Kinase Troponin I High Sens NT-Pro-B Natriuret Pep Total Protein Albumin TSH 0.44 Urine Color Urine Appearance Urine pH Ur Specific [place] Urine Protein Urine Glucose (UA) Urine Ketones Urine Blood Urine Nitrite Ur Leukocyte Esterase Urine RBC Urine WBC Ur Squamous Epith Cells Urine Bacteria Hyaline Casts Random Vancomycin Blood Type Antibody Screen 04/17/25 04/18/25 04/18/25 07:13 06:58 06:59 WBC 5.4 5.9 RBC 4.05 L 3.85 L Hgb 11.4 L 10.9 L Hct 36.2 L 34.7 L MCV 89.4 90.1 MCH 28.1 28.3 MCHC 31.5 31.4 RDW 15.9 16.0 Plt Count 128 L 134 L MPV 10.1 10.3 Immature Gran % (Auto) 0.0 0.3 Neut % (Auto) 66.5 73.9 H Lymph % (Auto) 26.1 18.2 L [place] % (Auto) 5.9 6.5 Eos % (Auto) 1.3 0.8 Baso % (Auto) 0.2 0.3 Lymph # (Auto) 1.4 1.1 L [place] # (Auto) 0.3 0.4 Eos # (Auto) 0.1 0.1 Baso # (Auto) 0.0 0.0 Abs Immat Gran (auto) 0.00 0.02 Absolute Neuts (auto) 3.6 4.4 Absolute Nucleated RBC 0.000 0.000 Nucleated RBC % (auto) 0.0 0.0 PT 36.7 H D 35.9 H INR 3.1 H D 3.0 H APTT Sodium 144 138 Potassium 4.5 4.0 Chloride 116 H 109 H Carbon Dioxide 23 24 Anion Gap 10 L 9 L BUN 38 H 24 H Creatinine 1.16 0.86 Estim Creat Clear Calc 30.9 41.7 Estimated GFR 45 > 60 Random Glucose 94 101 Lactic Acid Calcium 8.9 8.3 L D Magnesium 1.9 1.6 Total Bilirubin 0.7 0.5 AST 30 34 H ALT 16 14 Alkaline Phosphatase 95 93 Total Creatine Kinase Troponin I High Sens NT-Pro-B Natriuret Pep Total Protein 5.3 L 4.9 L Albumin 2.9 L 2.8 L TSH Urine Color Urine Appearance Urine pH Ur Specific [place] Urine Protein Urine Glucose (UA) Urine Ketones Urine Blood Urine Nitrite Ur Leukocyte Esterase Urine RBC Urine WBC Ur Squamous Epith Cells Urine Bacteria Hyaline Casts Random Vancomycin Blood Type Antibody Screen 04/18/25 04/19/25 04/19/25 21:00 07:11 09:18 WBC 6.5 RBC 4.27 Hgb 12.1 Hct 38.3 MCV 89.7 MCH 28.3 MCHC 31.6 RDW 16.0 Plt Count 113 L MPV 9.6 Immature Gran % (Auto) 0.6 H Neut % (Auto) 85.7 H Lymph % (Auto) 8.0 L [place] % (Auto) 5.7 Eos % (Auto) 0.0 Baso % (Auto) 0.0 Lymph # (Auto) 0.5 L [place] # (Auto) 0.4 Eos # (Auto) 0.0 Baso # (Auto) 0.0 Abs Immat Gran (auto) 0.04 H Absolute Neuts (auto) 5.6 Absolute Nucleated RBC 0.000 Nucleated RBC % (auto) 0.0 PT 46.7 H D INR 4.0 H APTT Sodium 140 Potassium 3.7 Chloride 106 Carbon Dioxide 27 Anion Gap 11 L BUN 18 H Creatinine 0.83 Estim Creat Clear Calc 43.2 Estimated GFR > 60 Random Glucose 115 Lactic Acid Calcium 8.0 L Magnesium 1.5 L Total Bilirubin 0.6 AST 38 H ALT 15 Alkaline Phosphatase 103 Total Creatine Kinase Troponin I High Sens 27.3 H D NT-Pro-B Natriuret Pep Total Protein 5.3 L Albumin 3.0 L TSH Urine Color Urine Appearance Urine pH Ur Specific [place] Urine Protein Urine Glucose (UA) Urine Ketones Urine Blood Urine Nitrite Ur Leukocyte Esterase Urine RBC Urine WBC Ur Squamous Epith Cells Urine Bacteria Hyaline Casts Random Vancomycin 11.4 L Blood Type Antibody Screen Narrative Narrative: ECHO Procedure Date: 04/17/2025 Procedure Type: Transthoracic Echocardiogram Location: [facility] [place] Height: 160.02 cm Weight: 58.06 kg BSA: 1.60 m2 Heart Rate: bpm BP: 107 / 55 mmHg Newspaper Writer: Referring MD: Peggy Prado MD Client Business Manager: Arnold Sebastian MD Symptoms: gram + cocci in clusters in blood Study Quality: Adequate ECG Rhythm: Atrial Fibrillation Conclusions: - 1. Severely reduced LV ejection fraction 15-20% 2. Biatrial enlargement with left greater than light 3. Mild aortic regurgitation 4. Normally functioning bioprosthetic mitral valve 5. No gross pericardial effusion Airway Heart: irregularly irregular Lungs: decreased, limited exam due to pt mobility restrictions Assessment and Plan Final Anesthetic Review Family History of Problems with Anesthesia: No History of Problems with Anesthesia: No
--- NOTE | 2025-04-19 11:37 | MHC.CLN ---
F/U PO INTAKE 25% X4 MEALS DIET ADVANCED TO REGULAR ENSURE BID IN PLACE TO PROMOTE WOUND HEALING SUPPLEMENT PROVIDES 700KCALS, 40G PROTEIN MONITOR PO INTAKE AND ENCOURAGE SUPPLEMENTS
[2025-04-19 12:36] LABS: Troponin-I High Sensitivity 31.3 ng/L (<3.5-17.0)
--- NOTE | 2025-04-19 16:16 | MHC.CM.PN ---
PER MD ROUNDS. PLAN IS FOR PT TO HAVE SURGERY TOMORROW POSSIBLE DC SATURDAY/SATURDAY
[2025-04-20 03:05] VITALS: BP 107/61; PULSE 102; RESP 18; TEMP 36.6; O2SAT 93
[2025-04-20 07:03] LABS: MANUAL DIFF FLAG NO
[2025-04-20 07:15] LABS: INTERNATIONAL NORM RATIO 3.3 (0.9-1.1); Prothrombin Time 39.5 SEC (11.2-13.5)
[2025-04-20 07:21] VITALS: BP 138/74; PULSE 111; RESP 18; TEMP 37.6; O2SAT 93
[2025-04-20 07:23] LABS: Alanine Aminotransferase 21 U/L (0-31); Albumin Level 3.0 g/dL (3.5-5.0); Alkaline Phosphatase 107 U/L (39-117); Anion Gap 11 (12-20); Aspartate Amino Transferase 58 U/L (5-31); Blood Urea Nitrogen 20 mg/dL (9-16); Calcium 8.3 mg/dL (8.4-10.2); Carbon Dioxide 27 mmol/L (22-29); Chloride 106 mmol/L (96-108); Creatinine Clr Calc Pharmacy 38.2; Estimated Glomerular Filt Rate 57; Magnesium 1.6 mg/dL (1.6-2.6); Potassium 3.4 mmol/L (3.3-5.1); Sodium 141 mmol/L (135-145); Total Protein 5.3 g/dL (6.5-8.0)
[2025-04-20 07:25] LABS: Hematocrit 38.9 % (37.0-47.0); Hemoglobin 12.6 g/dl (12.0-16.0); Imm Gran Abs Auto 0.05 X10*3/uL (0.00-0.03); Imm Gran Pct Auto 0.9 % (0.0-0.4); Lymphocytes Absolute Auto 0.4 X10*3/uL (1.2-4.9); Mean Corpuscular HGB Conc 32.4 g/dl (31.0-35.0); Mean Corpuscular Hemoglobin 28.1 pg (27.0-33.0); Mean Corpuscular Volume 86.6 fL (80.0-98.0); NRBC Abs Auto 0.000 X10*3/uL (0.0-0.012); NRBC Pct Auto 0.0 /100WBC (0.0-0.2); Platelet Count 100 X10*3/uL (160-400); Red Blood Count 4.49 X10*6/uL (4.20-5.50); White Blood Count 5.6 X10*3/uL (4.8-10.8)
--- NOTE | 2025-04-20 09:20 | P.CONCA_ITS ---
History of Present Illness History of Present Illness Date of Service: 04/20/25 Chief complaint: acute kidney injury Narrative: This is a cardiology consultation regarding preoperative risk stratification. Patient apparently needs urology stent removal. Records were reviewed and also discussed with the patient. Complicated cardiac history. Per last note, history of bioprosthetic mitral valve replacement as well as tricuspid annuloplasty in 2020. Permanent atrial fibrillation on anticoagulation. Fluctuating EF in the 20-45% range at different times. [facility] D. Hypertension, dyslipidemia, COPD, GORDON. At the current time, there is a plan to proceed with urology stent removal. Patient herself does not have any acute complaints but she does get short of breath with activity. No clear anginal-type chest pains. She does seem frail overall. Review of Systems 2 Review of Systems: Yes all other systems are reviewed and are negative Constitutional: Constitutional: Reports as per HPI and Reports no additional constitutional complaints Eyes: Eyes: Reports as per HPI and Denies no additional eye complaints ENT: Denies system reviewed and no additional complaints, except as documented and Reports as per HPI Cardiovascular: Cardiovascular: Reports as per HPI, Reports no additional cardiovascular complaints, Denies acrocyanosis, Denies cool extremities, Denies chest pain, Denies leg edema, Denies lightheadedness, Denies palpitations and Reports dyspnea Respiratory: Respiratory: Reports as per HPI, Denies no additional respiratory complaints and Reports dyspnea Gastrointestinal: Gastrointestinal: Reports as per HPI and Denies no additional gastrointestinal complaints Genitourinary: Genitourinary: Reports as per HPI Musculoskeletal: Musculoskeletal: Reports no additional musculoskeletal complaints and Reports as per HPI Integumentary/Breasts: Skin/Breast: Reports system reviewed and no additional complaints, except as docu Neurologic: Reports system reviewed and no additional complaints, except as documented and Reports as per HPI Psychiatric: Psychiatric: Reports no additional psychiatric complaints and Reports as per HPI Endocrine: Endocrine: Reports no additional endocrine complaints, Reports as per HPI and Denies palpitations Hematologic/Lymphatic: Hematologic/Lymphatic: Reports no additional hematologic/lymphatic complaints and Reports as per HPI Allergic/Immunologic: Allergic/Immunologic: Reports no additional allergic/immunologic complaints and Reports as per HPI [facility] Past Medical History Medical History HFrEF (heart failure with reduced ejection fraction) Chronic atrial fibrillation Chronic anticoagulation Obesity CKD (chronic kidney disease) stage 3, GFR 30-59 ml/min Nephrolithiasis, uric acid Hyperlipidemia HTN (hypertension) A-fib GORDON (obstructive sleep apnea) COPD (chronic obstructive pulmonary disease) Pulmonary HTN Severe mitral regurgitation Thiamine deficiency Osteoporosis Family History Family History Father No problems noted. Mother No problems noted. Maternal Aunt Breast cancer Surgical History Surgical History Hx of hernia repair History of open reduction and internal fixation (ORIF) procedure Social History Social History Household Members: Significant Other Housing: House Do you presently have visiting nurse or other home services: Yes Alcohol intake: never Patient Tobacco Use Status: Former Tobacco user Tobacco use type: Cigarette e-Cigarette/Vaping Use: Never Used Second Hand Smoke Exposure: No Currently Displaying Signs/Symptoms of Drug Intoxication Withdrawal: No Have you been hit, kicked, punched, or otherwise hurt by someone within the past year? If so, by whom?: No Do you feel safe in your current relationship?: Yes Is there a partner from a previous relationship who is making you feel unsafe now?: No Are you made to feel afraid or neglected: No Advance Directives: Yes Advance Directives on File: Yes Advance Directives Date on File: 11/28/23 Do you have a plan to hurt others: No Plan Recently lost weight without trying: Yes How much weight loss: 34pounds or more Eating poorly because of decreased appetite: Yes Nutrition screen score: 7 Nutrition Risks: No Nutritional Risk Patient : No : No Poor oral hygiene: No service: No Current occupational status: retired Cognitive needs: No Hearing needs: No Vision needs: No Meds Allergies Allergy/AdvReac Type Severity Reaction Status Date / Time hydrocodone (From Vicodin) Allergy Mild CHEST PAIN Verified 04/15/25 12:26 Active Medications: Current Medications Acetaminophen (Acetaminophen 325 Mg Tablet) 650 mg PO Q6H PRN PRN Reason: Pain, Mild 1-3,fever,headache Last Admin: 04/19/25 19:47 Dose: 650 mg Albuterol Sulfate (Albuterol Sulfate 90 Mcg 8 Gm Inhaler) 2 puff INHALE Q4H PRN PRN Reason: shortness of breath or wheezing Amiodarone HCl (Amiodarone Hcl 200 Mg Tablet) 200 mg PO DAILY [facility] Last Admin: 04/19/25 08:59 Dose: 200 mg Atorvastatin Calcium (Atorvastatin Calcium 80 Mg Tablet) 80 mg PO DAILY [facility] Last Admin: 04/19/25 08:59 Dose: 80 mg Benzonatate (Benzonatate 100 Mg Capsule) 100 mg PO TID PRN PRN Reason: Cough Last Admin: 04/18/25 22:18 Dose: 100 mg Calcium Carbonate (Calcium Carbonate 750 Mg Tab.Chew) 750 mg PO Q4H PRN PRN Reason: Heartburn Furosemide (Furosemide 40 Mg Tablet) 40 mg PO BID [facility]; Protocol Last Admin: 04/19/25 21:57 Dose: Not Given Ceftriaxone Sodium 1 gm/ (Sodium Chloride) 50 mls @ 100 mls/hr IV Q24H [facility] Last Infusion: 04/19/25 23:18 Dose: Infused Magnesium Hydroxide (Milk Of Magnesia 30 Ml Oral.Susp) 30 ml PO DAILY PRN PRN Reason: Constipation Magnesium Oxide (Magnesium Oxide 400 Mg Tablet) 400 mg PO BIDPC [facility] Last Admin: 04/19/25 17:23 Dose: 400 mg Melatonin (Melatonin 3 Mg Tablet) 6 mg PO BEDTIME PRN PRN Reason: Insomnia Metronidazole (Metronidazole 500 Mg Tablet) 500 mg PO Q8H [facility] Last Admin: 04/20/25 05:40 Dose: Not Given Nystatin (Nystatin Powder 15 Gm Bottle) 1 appl TOPICAL BID [facility]; Protocol Last Admin: 04/19/25 21:56 Dose: 1 appl Omeprazole (Omeprazole 20 Mg Capsule.Dr) 20 mg PO BID@0630,1630 [facility] Last Admin: 04/20/25 05:40 Dose: Not Given Oxycodone HCl (Oxycodone Hcl Immed Release 5 Mg Tablet) 5 mg PO Q6H PRN PRN Reason: Pain, Severe (Pain Scale 7-10) Sodium Chloride (0.9 % Sodium Chloride Flush 3 Ml Syringe) 3 ml IVFLUSH QSHIFT [facility] Last Admin: 04/19/25 21:56 Dose: 3 ml Spironolactone (Spironolactone 25 Mg Tablet) 12.5 mg PO DAILY [facility]; Protocol On Hold: 04/16/25 12:09 Last Admin: 04/16/25 09:45 Dose: Not Given Thiamine HCl (Thiamine Hcl 100 Mg Tablet) 100 mg PO DAILY [facility] Last Admin: 04/19/25 08:59 Dose: 100 mg Tramadol HCl (Tramadol Hcl 50 Mg Tablet) 50 mg PO Q6H PRN PRN Reason: Pain, Moderate(Pain Scale 4-6) Last Admin: 04/17/25 22:11 Dose: 50 mg Home Medications ?Medication ?Instructions ?Recorded ?Confirmed ?Last Taken ?Type ascorbate calcium (vitamin C) 500 500 mg PO DAILY 09/2304/16/25 04/15/25 History mg tablet [id number]-Xs-fiaz-minerals 1 tab PO DAILY 01/04/23 04/16/25 12/07/24 History zinc gluconate 50 mg tablet 50 mg PO DAILY 01/04/2312/07/24 History acetaminophen 325 mg capsule 650 mg PO Q8H PRN Pain 04/15/25 Unknown History amiodarone 200 mg tablet 200 mg PO DAILY 07/27/2404/15/25 History omeprazole 20 mg capsule,delayed 20 mg PO BID@0630,163 0 12/07/24 04/15/25 04/15/25 History release thiamine HCl (vitamin B1) 100 mg 100 mg PO DAILY 01/1204/16/25 Unknown History capsule warfarin 2.5 mg tablet 2.5 mg PO SUTUTH@1800 04/15/25 04/13/25 History amlodipine 5 mg tablet 5 mg PO DAILY 04/15/2504/1504/15/25 History carvedilol 12.5 mg tablet 12.5 mg PO BID 04/15/2504/0304/15/25 History furosemide 40 mg tablet (Lasix) 40 mg PO BID 04/15/25 04/16/25 Unknown History umeclidinium 62.5 mcg-vilanterol 1 inh inhalation TORIN Y 04/15/25 04/15/25 History 25 mcg/actuation powdr for inhalation (Anoro Ellipta) warfarin 2.5 mg tablet 1.25 mg PO MOWEFRSA@1800 04/15/25 04/14/25 History cholecalciferol (vitamin D3) 10 10 mcg PO DAILY 04/16/25 Unknown History mcg (400 unit) tablet (Vitamin D3) potassium chloride 20 mEq 20 meq PO DAILY 04/16/25 Unknown History tablet,extended release Physical Exam 2 Vital Signs: Vital Signs: Last Vital Signs Temp 99.6 F 04/20/25 07:21 Pulse 111 H 04/20/25 07:21 Resp 18 04/20/25 07:21 BP 138/74 04/20/25 07:21 Pulse Ox 93 04/20/25 07:21 O2 Del Method Room Air 04/20/25 07:21 BMI result Body Mass Index 22.7 Const: General: comfortable and no acute distress O rientation/consciousness: patient oriented x3 HEENT: Other: Unremarkable Head: Yes normal to inspection Neck: Neck: Yes normal visual inspection Chest: Chest palpation & inspection: normal inspection of the chest Resp: Auscultation: clear to auscultation bilaterally Cardio: Palpation: normal PMI Heart sounds: S1 normal heart sound present, S2 normal heart sound present, no gallops, no murmurs and no rubs GI: Palpation (GI): Soft to palpation Back/Spine/Pelvis: Other: unremarkable Skin: General skin exam: no rashes or lesions noted Neuro: General: patient oriented x3 Extrem: General: Yes normal to inspection Psych: Mental Status: mental status grossly normal Objective Labs and Meds 04/20/25 06:41 04/20/25 06:41 Lab results: Laboratory Results - last 24 hr 04/19/25 04/19/25 04/19/25 09:18 12:11 20:57 WBC RBC Hgb Hct MCV MCH MCHC RDW Plt Count MPV Immature Gran % (Auto) Neut % (Auto) Lymph % (Auto) [place] % (Auto) Eos % (Auto) Baso % (Auto) Lymph # (Auto) [place] # (Auto) Eos # (Auto) Baso # (Auto) Abs Immat Gran (auto) Absolute Neuts (auto) Absolute Nucleated RBC Nucleated RBC % (auto) PT INR Sodium Potassium Chloride Carbon Dioxide Anion Gap BUN Creatinine Estim Creat Clear Calc Estimated GFR Random Glucose Calcium Magnesium Total Bilirubin AST ALT Alkaline Phosphatase Troponin I High Sens 27.3 H D 31.3 H Total Protein Albumin Random Vancomycin 12.4 L 04/20/25 06:41 WBC 5.6 RBC 4.49 Hgb 12.6 Hct 38.9 MCV 86.6 MCH 28.1 MCHC 32.4 RDW 16.3 H Plt Count 100 L MPV 10.4 Immature Gran % (Auto) 0.9 H Neut % (Auto) 86.6 H Lymph % (Auto) 7.1 L [place] % (Auto) 5.2 Eos % (Auto) 0.0 Baso % (Auto) 0.2 Lymph # (Auto) 0.4 L [place] # (Auto) 0.3 Eos # (Auto) 0.0 Baso # (Auto) 0.0 Abs Immat Gran (auto) 0.05 H Absolute Neuts (auto) 4.9 Absolute Nucleated RBC 0.000 Nucleated RBC % (auto) 0.0 PT 39.5 H INR 3.3 H Sodium 141 Potassium 3.4 Chloride 106 Carbon Dioxide 27 Anion Gap 11 L BUN 20 H Creatinine 0.94 Estim Creat Clear Calc 38.2 Estimated GFR 57 Random Glucose 110 Calcium 8.3 L Magnesium 1.6 Total Bilirubin 0.5 AST 58 H ALT 21 Alkaline Phosphatase 107 Troponin I High Sens Total Protein 5.3 L Albumin 3.0 L Random Vancomycin ECG Interpretation: EKG with ventricular paced rhythm at 98/Min. Probable underlying atrial fibrillation. Some natively conducted beats. Assessment and Plan (1) Preoperative cardiovascular examination: Status: Acute (2) Status post mitral valve replacement with bioprosthetic valve: Status: Acute (3) Status post tricuspid valve repair: Status: Acute (4) Permanent atrial fibrillation: Status: Acute (5) Cardiomyopathy: Status: Acute Plan Cardiac data reviewed. Last echocardiogram from November 2024 shows LVEF of 20%. Severe pulmonary hypertension. Normally functioning bioprosthetic mitral valve. Last cardiac catheterization from 09/2024 with no obstructive CAD. 15-20% lesions in various vessels and 50% mid circumflex. Status post [facility] D-defibrillator from 10/2024. Overall, many chronic cardiac issues but seems stable overall. Her cardiac risk for general anesthesia would be intermediate to high. Not modifiable. May proceed as planned. Procedures Date of Service Date of Service: 04/20/25
[2025-04-20] MEDS: 0.9 % Sodium Chloride Flush 3 ML SYRINGE IVFLUSH ×3 (09:50→20:13)
[2025-04-20] MEDS: oxyCODONE HCl Immed Release 5 MG TABLET PO (13:12)
[2025-04-20 15:00] VITALS: BP 97/61; PULSE 113; RESP 18; TEMP 36.6; O2SAT 92
--- NOTE | 2025-04-20 16:06 | HO.PM.IMPN ---
Subjective Subjective Date of Service: 04/20/25 Interval History: INR continues to be elevated though decreased to 3.3 today Warfarin continues to be on hold Patient's surgery move to at 14:30 No significant chest pain Review of Systems Review of Systems: Yes all other systems are reviewed and are negative Physical Exam Exam: Exam: General: AOx3, frail and chronically weak appearing Resp: CTA bilaterally CVS: Irregularly irregular rhythm GI: +BS, NT, no distention Back: thoracic kyphosis Skin: Warm, dry Neuro: Cranial nerves II-XII grossly intact bilaterally. Motor grossly intact bilaterally. Global though symmetric weakness Extremities: No edema Psych: Appropriate affect Vital Signs: Vital Signs: Last Vital Signs Temp 97.9 F 04/20/25 15:00 Pulse 113 H 04/20/25 15:00 Resp 18 04/20/25 15:00 BP 97/61 04/20/25 15:00 Pulse Ox 92 04/20/25 15:00 O2 Del Method Room Air 04/20/25 15:00 BMI result Body Mass Index 22.7 Objective Data Active Medications Acetaminophen (Acetaminophen 325 Mg Tablet) 650 mg PO Q6H PRN PRN Reason: Pain, Mild 1-3,fever,headache Last Admin: 04/19/25 19:47 Dose: 650 mg Documented By: ARJUN Albuterol Sulfate (Albuterol Sulfate 90 Mcg 8 Gm Inhaler) 2 puff INHALE Q4H PRN PRN Reason: shortness of breath or wheezing Amiodarone HCl (Amiodarone Hcl 200 Mg Tablet) 200 mg PO DAILY [facility] Last Admin: 04/20/25 09:49 Dose: 200 mg Documented By: AMBROSIO Atorvastatin Calcium (Atorvastatin Calcium 80 Mg Tablet) 80 mg PO DAILY [facility] Last Admin: 04/20/25 09:49 Dose: 80 mg Documented By: AMBROSIO Benzonatate (Benzonatate 100 Mg Capsule) 100 mg PO TID PRN PRN Reason: Cough Last Admin: 04/18/25 22:18 Dose: 100 mg Documented By: IVETTE Calcium Carbonate (Calcium Carbonate 750 Mg Tab.Chew) 750 mg PO Q4H PRN PRN Reason: Heartburn Furosemide (Furosemide 40 Mg Tablet) 40 mg PO BID [facility]; Protocol Last Admin: 04/20/25 09:49 Dose: 40 mg Documented By: AMBROSIO Ceftriaxone Sodium 1 gm/ (Sodium Chloride) 50 mls @ 100 mls/hr IV Q24H [facility] Last Infusion: 04/19/25 23:18 Dose: Infused Documented By: ARJUN Magnesium Hydroxide (Milk Of Magnesia 30 Ml Oral.Susp) 30 ml PO DAILY PRN PRN Reason: Constipation Magnesium Oxide (Magnesium Oxide 400 Mg Tablet) 400 mg PO BIDPC [facility] Last Admin: 04/20/25 09:49 Dose: 400 mg Documented By: AMBROSIO Melatonin (Melatonin 3 Mg Tablet) 6 mg PO BEDTIME PRN PRN Reason: Insomnia Metronidazole (Metronidazole 500 Mg Tablet) 500 mg PO Q8H [facility] Last Admin: 04/20/25 13:14 Dose: 500 mg Documented By: AMBROSIO Nystatin (Nystatin Powder 15 Gm Bottle) 1 appl TOPICAL BID [facility]; Protocol Last Admin: 04/20/25 09:50 Dose: 1 appl Documented By: AMBROSIO Omeprazole (Omeprazole 20 Mg Capsule.Dr) 20 mg PO BID@0630,1630 [facility] Last Admin: 04/20/25 05:40 Dose: Not Given Documented By: ARJUN Non-Admin Reason: NPO Oxycodone HCl (Oxycodone Hcl Immed Release 5 Mg Tablet) 5 mg PO Q6H PRN PRN Reason: Pain, Severe (Pain Scale 7-10) Last Admin: 04/20/25 13:12 Dose: 5 mg Documented By: AMBROSIO Sodium Chloride (0.9 % Sodium Chloride Flush 3 Ml Syringe) [facility] Last Admin: 04/20/25 09:50 Dose: 3 ml Documented By: AMBROSIO Spironolactone (Spironolactone 25 Mg Tablet) 12.5 mg PO DAILY [facility]; Protocol On Hold: 04/16/25 12:09 Last Admin: 04/16/25 09:45 Dose: Not Given Documented By: KEVIN Non-Admin Reason: BP 90/55 Thiamine HCl (Thiamine Hcl 100 Mg Tablet) 100 mg PO DAILY [facility] Last Admin: 04/20/25 09:50 Dose: 100 mg Documented By: AMBROSIO Tramadol HCl (Tramadol Hcl 50 Mg Tablet) 50 mg PO Q6H PRN PRN Reason: Pain, Moderate(Pain Scale 4-6) Last Admin: 04/17/25 22:11 Dose: 50 mg Documented By: HAWK Labs 04/20/25 06:41 04/20/25 06:41 Labs: Laboratory Results - last 24 hr 04/19/25 04/20/25 20:57 06:41 MCV 86.6 MCH 28.1 MCHC 32.4 RDW 16.3 H Plt Count 100 L MPV 10.4 Immature Gran % (Auto) 0.9 H Neut % (Auto) 86.6 H Lymph % (Auto) 7.1 L [place] % (Auto) 5.2 Eos % (Auto) 0.0 Baso % (Auto) 0.2 Lymph # (Auto) 0.4 L [place] # (Auto) 0.3 Eos # (Auto) 0.0 Baso # (Auto) 0.0 Abs Immat Gran (auto) 0.05 H Absolute Neuts (auto) 4.9 Absolute Nucleated RBC 0.000 Nucleated RBC % (auto) 0.0 PT 39.5 H INR 3.3 H Anion Gap 11 L Estim Creat Clear Calc 38.2 Estimated GFR 57 Random Glucose 110 Calcium 8.3 L Magnesium 1.6 Total Bilirubin 0.5 AST 58 H ALT 21 Alkaline Phosphatase 107 Total Protein 5.3 L Albumin 3.0 L Random Vancomycin 12.4 L Microbiology Microbiology Results: Microbiology 04/17/25 09:13 Blood Culture - Preliminary Blood - Venous No growth after 48 hours. Blood Culture - Preliminary No growth after 48 hours. 04/17/25 09:12 Blood Culture - Preliminary Blood - Venous No growth after 48 hours. Assessment and Plan (1) Pyelonephritis: Status: Acute (2) Ureteral stent present: Status: Acute Plan 84-year-old lady with PMH of pertinent for CKD, nephrolithiasis with right ureteral stent placed 1.5 years ago, hypertension, hyperlipidemia, GORDON on CPAP, pulmonary hypertension, HFrEF (EF 20%), paroxysmal AFib, porcine mitral valve replacement, AICD status post pacemaker on Coumadin is admitted to the hospital from the Coumadin clinic due to supratherapeutic INR (10.2). Pt noted fall with findings of T10 fx, acute pyelo, sigmoid diverticultis, lung nodule and thyroid nodules on imaging. Acute pyelonephritis with retained, calcified right ureteral stent placed 1.5 years ago - likely source of recurrent UTIs - continue ceftriaxone, day 6 - urology consulted, plan on stent removal on at 14:3; currently waiting on INR to drop to <2.0 - cardiology consulted for anesthesia risk stratification: Overall stable many chronic cardiac issues. Intermediate to high risk, but not modifiable - hold coumadin pending stent removal - monitor CBC and BMP elevated troponins - mildly elevated and flat at 27.3 with repeat 31.3 - pt was sharp and stabbing chest pain on 04/19 - monitor on telemetry question of sigmoid diverticulitis - as seen on CT - pt initially reported some LLQ pain and bowel irregularity - ceftriaxone and flagyl x1 more day - currently tolerating full diet, abd pain resolved Protein calorie malnutrition - dietary consult placed - protein supplementation ARIADNA on CKD, resolved - treated IVF - avoid nephrotoxins - monitor cr acute hyperkalemia, prolonged QTC, resolved - mild hyperkalemia, resolved with IVF - recheck BMP now - repeat EKG when lytes normalized T10 fracture on CT - likely secondary to fall at home in bathroom 2 weeks prior; pt hit back on toilet, did not seek medical evaluation at that time - ED provider spoke with [facility] neurosurgery who suggested fx appears stable, no need for transfer - pain management - outpatient evaluation - PT consult lung nodule on CT - repeat chest CT in 3 mo outpt thyroid nodules on CT - f/u output for thyroid US paroxysmal a fib with supratherapeutic INR - amiodarone and metoprolol, hold metoprolol if SBP <90 - INR initially 10.5, currenlty 3.3 - hold coumadin pending stent removal - INR goal <1.5 for surgery GORDON - CPAP at bedtime HFrEF, no acute exacerbation - BNP around baseline, no evidence of fluid overload - continue spironolactone - limit IVF - monitor for fluid overload HTN - hold amlodipine, lisinopril, carvidelol due to soft BP HLD - continue statin due to ARIADNA Breast mass - noted on physical exam -mammogram outpatient settings DNI VTE prophy: Warfarin Pt requires continued hospitalization as she will undergo ureteral stent removal on . Currently waiting on INR to drop further below 2.0. Pt will then need PT evaluation post surgery for safe disposition. Quality Stroke Does the patient have a stroke diagnosis?: No VTE Prior VTE?: No VTE Risk Level:: Medical - moderate - high VTE Device Contraindication: N/A - Device Ordered VTE Drug Contraindication: Treatment Not Indicated
[2025-04-20 19:54] VITALS: BP 115/69; PULSE 136; RESP 32; TEMP 36.7; O2SAT 92
[2025-04-20] MEDS: Furosemide 40 MG/4 ML VIAL IVPUSH (20:12)
[2025-04-20 21:02] VITALS: BP 122/67
[2025-04-21 00:07] VITALS: BP 109/62; PULSE 91; RESP 32; TEMP 36.9; O2SAT 96
[2025-04-21 04:00] VITALS: BP 106/57; PULSE 82; RESP 22; TEMP 37.2; O2SAT 95
[2025-04-21 06:48] LABS: MANUAL DIFF FLAG NO
[2025-04-21 07:05] LABS: INTERNATIONAL NORM RATIO 2.5 (0.9-1.1); Prothrombin Time 29.4 SEC (11.2-13.5)
--- NOTE | 2025-04-21 07:12 | P.CDIM_ITS ---
PROVIDER RESPONSE TEXT: To clarify, the appropriate diagnosis supported by the clinical indicators: Moderate QUERY TEXT: PHYSICIAN'S DOCUMENTATION REQUEST Date of Query: 04/20/2025 07:22 AM EST Patient Name: Ramona Pinon Admit Date: 04/16/2025 Dear Blas KENNEDY, A review of the medical record indicates additional documentation may be needed. Please review below and update the documentation accordingly. Documentation includes the diagnosis of protein calorie malnutrition. Clinical nutrition notes 04/16/25 - Mild depletion rib cage, clavicle, body fat and muscle mass. Non-severe malnutrition in context of chronic illness. Unplanned significant weight loss x 3 months. Qualifies as moderately malnourished in the context of chronic illness. Adding Ensure clear TID to promote wound healing. If possible, please provide additional specificity regarding the severity of the malnutrition using the above information: Mild Moderate Severe Other (explain) Clinically unable to determine (explain) Thank you, Emmy Enriquez, CCS, CDIS Use of terms such as suspected, likely, concern for, or probable (associated with a specific diagnosis that is being evaluated, monitored, or treated as if it exists) are acceptable and can be coded in the inpatient setting, when documented at the time of discharge. Please use your independent medical judgment in providing your response. THIS QUERY IS PART OF THE PERMANENT MEDICAL RECORD
[2025-04-21 07:17] LABS: Alanine Aminotransferase 29 U/L (0-31); Albumin Level 2.6 g/dL (3.5-5.0); Alkaline Phosphatase 101 U/L (39-117); Anion Gap 9 (12-20); Aspartate Amino Transferase 81 U/L (5-31); Blood Urea Nitrogen 30 mg/dL (9-16); Calcium 8.3 mg/dL (8.4-10.2); Carbon Dioxide 31 mmol/L (22-29); Chloride 107 mmol/L (96-108); Creatinine Clr Calc Pharmacy 38.2; Estimated Glomerular Filt Rate 57; Magnesium 1.8 mg/dL (1.6-2.6); Potassium 3.1 mmol/L (3.3-5.1); Sodium 144 mmol/L (135-145); Total Protein 4.8 g/dL (6.5-8.0)
[2025-04-21 07:35] LABS: Hematocrit 34.9 % (37.0-47.0); Hemoglobin 11.2 g/dl (12.0-16.0); Imm Gran Abs Auto 0.03 X10*3/uL (0.00-0.03); Imm Gran Pct Auto 0.7 % (0.0-0.4); Lymphocytes Absolute Auto 0.4 X10*3/uL (1.2-4.9); Mean Corpuscular HGB Conc 32.1 g/dl (31.0-35.0); Mean Corpuscular Hemoglobin 28.7 pg (27.0-33.0); Mean Corpuscular Volume 89.5 fL (80.0-98.0); NRBC Abs Auto 0.000 X10*3/uL (0.0-0.012); NRBC Pct Auto 0.0 /100WBC (0.0-0.2); Red Blood Count 3.90 X10*6/uL (4.20-5.50); White Blood Count 4.2 X10*3/uL (4.8-10.8)
[2025-04-21 07:36] VITALS: BP 109/66; PULSE 72; RESP 20; TEMP 36.6; O2SAT 97
[2025-04-21 07:36] LABS: Platelet Count 87 X10*3/uL (160-400)
--- NOTE | 2025-04-21 07:40 | P.PNIM_ITS ---
Subjective Subjective Date of Service: 04/21/25 Interval History: INR further decrease to 2.5 today Potassium slightly low at 3.1 Stent removal planned for tomorrow at 14:30 Slight cough yesterday, none overnight or this morning No significant SOB Review of Systems Review of Systems: Yes all other systems are reviewed and are negative Physical Exam 2 Exam: Exam: General: AOx3, frail and chronically weak appearing Resp: CTA bilaterally CVS: Irregularly irregular rhythm GI: NT, soft, no distention Back: thoracic kyphosis Skin: See wound care note for decubitus ulcers on heels and sacral area Neuro: Cranial nerves II-XII grossly intact bilaterally. Motor grossly intact bilaterally. Global though symmetric weakness Extremities: No edema Psych: Appropriate affect Vital Signs: Vital Signs: Last Vital Signs Temp 99.0 F 04/21/25 04:00 Pulse 82 04/21/25 04:00 Resp 22 H 04/21/25 04:00 BP 106/57 L 04/21/25 04:00 Pulse Ox 95 04/21/25 04:00 O2 Del Method Nasal Cannula 04/21/25 04:00 O2 Flow Rate 1 04/21/25 04:00 BMI result Body Mass Index 22.7 Objective Data Active Medications Acetaminophen (Acetaminophen 325 Mg Tablet) 650 mg PO Q6H PRN PRN Reason: Pain, Mild 1-3,fever,headache Last Admin: 04/21/25 05:28 Dose: 650 mg Documented By: ARJUN Albuterol Sulfate (Albuterol Sulfate 90 Mcg 8 Gm Inhaler) 2 puff INHALE Q4H PRN PRN Reason: shortness of breath or wheezing Amiodarone HCl (Amiodarone Hcl 200 Mg Tablet) 200 mg PO DAILY [facility] Last Admin: 04/20/25 09:49 Dose: 200 mg Documented By: AMBROSIO Atorvastatin Calcium (Atorvastatin Calcium 80 Mg Tablet) 80 mg PO DAILY [facility] Last Admin: 04/20/25 09:49 Dose: 80 mg Documented By: AMBROSIO Benzonatate (Benzonatate 100 Mg Capsule) 100 mg PO TID PRN PRN Reason: Cough Last Admin: 04/18/25 22:18 Dose: 100 mg Documented By: IVETTE Calcium Carbonate (Calcium Carbonate 750 Mg Tab.Chew) 750 mg PO Q4H PRN PRN Reason: Heartburn Furosemide (Furosemide 40 Mg Tablet) 40 mg PO BID [facility]; Protocol Last Admin: 04/20/25 20:16 Dose: Not Given Documented By: ARJUN Non-Admin Reason: Physician Held Med Ceftriaxone Sodium 1 gm/ (Sodium Chloride) 50 mls @ 100 mls/hr IV Q24H [facility] Last Infusion: 04/20/25 21:00 Dose: Infused Documented By: ARJUN Magnesium Hydroxide (Milk Of Magnesia 30 Ml Oral.Susp) 30 ml PO DAILY PRN PRN Reason: Constipation Magnesium Oxide (Magnesium Oxide 400 Mg Tablet) 400 mg PO BIDPC [facility] Last Admin: 04/20/25 17:08 Dose: 400 mg Documented By: AMBROSIO Melatonin (Melatonin 3 Mg Tablet) 6 mg PO BEDTIME PRN PRN Reason: Insomnia Metoprolol Tartrate (Metoprolol Tartrate 5 Mg/5 Ml Vial) 5 mg IVPUSH Q6H PRN; Protocol PRN Reason: Heart Rate >100 Last Admin: 04/20/25 21:03 Dose: 5 mg Documented By: ARJUN Metronidazole (Metronidazole 500 Mg Tablet) 500 mg PO Q8H [facility] Last Admin: 04/21/25 05:28 Dose: 500 mg Documented By: ARJUN Nystatin (Nystatin Powder 15 Gm Bottle) 1 appl TOPICAL BID [facility]; Protocol Last Admin: 04/20/25 20:18 Dose: 1 appl Documented By: ARJUN Omeprazole (Omeprazole 20 Mg Capsule.Dr) 20 mg PO BID@0630,1630 [facility] Last Admin: 04/21/25 05:28 Dose: 20 mg Documented By: ARJUN Oxycodone HCl (Oxycodone Hcl Immed Release 5 Mg Tablet) 5 mg PO Q6H PRN PRN Reason: Pain, Severe (Pain Scale 7-10) Last Admin: 04/20/25 13:12 Dose: 5 mg Documented By: AMBROSIO Sodium Chloride (0.9 % Sodium Chloride Flush 3 Ml Syringe) [facility] Last Admin: 04/20/25 20:13 Dose: 3 ml Documented By: ARJUN Spironolactone (Spironolactone 25 Mg Tablet) 12.5 mg PO DAILY [facility]; Protocol On Hold: 04/16/25 12:09 Last Admin: 04/16/25 09:45 Dose: Not Given Documented By: KEVIN Non-Admin Reason: BP 90/55 Thiamine HCl (Thiamine Hcl 100 Mg Tablet) 100 mg PO DAILY [facility] Last Admin: 04/20/25 09:50 Dose: 100 mg Documented By: AMBROSIO Tramadol HCl (Tramadol Hcl 50 Mg Tablet) 50 mg PO Q6H PRN PRN Reason: Pain, Moderate(Pain Scale 4-6) Last Admin: 04/17/25 22:11 Dose: 50 mg Documented By: HAWK Labs 04/21/25 06:16 04/21/25 06:16 Labs: Laboratory Results - last 24 hr 04/21/25 06:16 MCV 89.5 MCH 28.7 MCHC 32.1 RDW 16.4 H Plt Count 87 L MPV 10.8 Immature Gran % (Auto) 0.7 H Neut % (Auto) 84.9 H Lymph % (Auto) 9.4 L [place] % (Auto) 5.0 Eos % (Auto) 0.0 Baso % (Auto) 0.0 Lymph # (Auto) 0.4 L [place] # (Auto) 0.2 Eos # (Auto) 0.0 Baso # (Auto) 0.0 Abs Immat Gran (auto) 0.03 Absolute Neuts (auto) 3.5 Absolute Nucleated RBC 0.000 Nucleated RBC % (auto) 0.0 PT 29.4 H D INR 2.5 H Anion Gap 9 L Estim Creat Clear Calc 38.2 Estimated GFR 57 Random Glucose 117 H Calcium 8.3 L Magnesium 1.8 Total Bilirubin 0.4 AST 81 H ALT 29 Alkaline Phosphatase 101 Total Protein 4.8 L Albumin 2.6 L Microbiology Microbiology Results: Microbiology 04/15/25 20:50 Blood Culture - Final Blood - Venous No growth after 5 days. Assessment and Plan (1) Pyelonephritis: Status: Acute Plan 84-year-old lady with PMH of pertinent for CKD, nephrolithiasis with right ureteral stent placed 1.5 years ago, hypertension, hyperlipidemia, GORDON on CPAP, pulmonary hypertension, HFrEF (EF 20%), paroxysmal AFib, porcine mitral valve replacement, AICD status post pacemaker on Coumadin is admitted to the hospital from the Coumadin clinic due to supratherapeutic INR (10.2). Pt noted fall with findings of T10 fx, acute pyelo, sigmoid diverticultis, lung nodule and thyroid nodules on imaging. Acute pyelonephritis with retained, calcified right ureteral stent placed 1.5 years ago - likely source of recurrent UTIs - continue ceftriaxone, day 7 - urology consulted, plan on stent removal on at 14:30; currently waiting on INR to drop to <2.0 - cardiology consulted for anesthesia risk stratification: Overall stable many chronic cardiac issues. Intermediate to high risk, but not modifiable - hold coumadin pending stent removal - monitor CBC and BMP elevated troponins - mildly elevated and flat at 27.3 with repeat 31.3 - pt was sharp and stabbing chest pain on 04/19 - monitor on telemetry question of sigmoid diverticulitis - as seen on CT - pt initially reported some LLQ pain and bowel irregularity - Initially treateted with ceftriaxone and flagyl - currently tolerating full diet, abd pain resolved, diverticulitis unlikely Protein calorie malnutrition - dietary consult placed - protein supplementation ARIADNA on CKD, resolved - treated IVF - avoid nephrotoxins - monitor cr acute hyperkalemia, prolonged QTC, resolved - mild hyperkalemia, resolved with IVF - recheck BMP now - repeat EKG when lytes normalized T10 fracture on CT - likely secondary to fall at home in bathroom 2 weeks prior; pt hit back on toilet, did not seek medical evaluation at that time - ED provider spoke with [facility] neurosurgery who suggested fx appears stable, no need for transfer - pain management - outpatient evaluation - PT consulted, recommend STR Chronic sacral and heel decubitus ulcers - see wound care notes for pictures and additonal care instructions - airloss mattress; pt has been refusing positioning - Right heel: Elevate heels off of bed surface with pillows. Float heels off of pillows. Apply skin prep allow to dry. Apply heel foam dressings, peel back and assess Q shift and change every 5-7 days and PRN - Coccyx: Off Load Pressure with Q2 hr turns and use of pillows - Cleanse with PH balance spray or wipes, pat dry. ?Apply thin layer of Triad to wound bed. Do not remove all of paste between applications as this may cause further skin damage.? Cover with foam dressing to aid in off loading and protection from friction. Change every other day and PRN. - Left lateral heel: cleanse with normal saline, apply skin prep palmer wound, apply durafiber ag, to wound bed, cover with heel foams, change every other day and PRN - elevate heels off surface of bed with pillows - Bilateral Lower Legs - Routine Cleansing. Apply Ammonium Lactate cream per provider orders. lung nodule on CT - repeat chest CT in 3 mo outpt thyroid nodules on CT - f/u output for thyroid US paroxysmal a fib with supratherapeutic INR - amiodarone and metoprolol, hold metoprolol if SBP <90 - INR initially 10.5, currenlty 3.3 - hold coumadin pending stent removal - INR goal <1.5 for surgery GORDON - CPAP at bedtime HFrEF, no acute exacerbation - BNP around baseline, no evidence of fluid overload - continue spironolactone - limit IVF - monitor for fluid overload HTN - hold amlodipine, lisinopril, carvidelol due to soft BP HLD - continue statin due to ARIADNA Breast mass - noted on physical exam -mammogram outpatient settings DNI VTE prophy: Warfarin Pt requires continued hospitalization as she will undergo ureteral stent removal on . Currently waiting on INR to drop further below 2.0. Pt will then need PT evaluation post surgery for safe disposition. Quality Stroke Does the patient have a stroke diagnosis?: No VTE Prior VTE?: No VTE Risk Level:: Medical - moderate - high VTE Device Contraindication: N/A - Device Ordered VTE Drug Contraindication: Treatment Not Indicated
--- NOTE | 2025-04-21 09:14 | MHC.CM.PN ---
Addendum entered by Tiffanie Holden RN 04/21/25 12:12: CM MET W/PT WHO IS CURRENTLY DECLINING STR, PT REPORTS SHE WOULD LIKE TO DC HOME W/SERVICES W/[facility] EVEN THOUGH SHE WILL NOT HAVE FREQUENT P.T. AT HOME UNLIKE DAILY IN A SNF, CM WILL REVISIT W/PT. Addendum entered by Tiffanie Holden RN 04/21/25 11:30: P.T RECOMMENDING STR, PT WILL MEET W/PT TO DISCUSS DISPO. Original Note: EMR REVIEWED, PER HOSPITALIST PLAN FOR STENT REMOVAL TOMORROW 04/22 AT 2:30PM, ANTIC DC TH/FRI, PLAN CONT'S TO BE HOME W/RESUMP OF [facility], CM WILL CONT TO FOLLOW DC NEEDS.
[2025-04-21] MEDS: 0.9 % Sodium Chloride Flush 3 ML SYRINGE IVFLUSH ×3 (09:41→22:08)
[2025-04-21] MEDS: Potassium Chloride Packet 20 MEQ PACKET 40 MEQ PO (09:41)
--- NOTE | 2025-04-21 12:02 | MHC.CLN ---
F/U PO INTAKE 25% DIET RX: 2GM NA ENSURE TID IN PLACE TO PROMOTE WOUND HEALING SUPPLEMENT PROVIDES 1050KCALS, 60G PROTEIN MONITOR PO INTAKE AND ENCOURAGE SUPPLEMENTS
[2025-04-21 15:39] VITALS: BP 113/54; PULSE 98; RESP 20; TEMP 37; O2SAT 94
--- NOTE | 2025-04-21 16:15 | HO.WOUND ---
Wound Consult: Follow up 84 yr old female admitted to [facility] [place] on 04/15/25- See progress notes and H&P for detailed history. Wound consult follow up for coccyx and left heel. Patient agreeable to assessment and photo documentation. Patient reports history of wound to left heel, reports that it has drained for a long time. reports pain in her back and buttocks. Patient noted to be cachectic with pronounced clavicals and Sternum. Nutrition following and patient receiving ensure. Sternum - no open wound noted - concern for skin integrity. no topical dressing needed at this time - patient refused foam dressing. Coccyx and left ischium 04/16/25 04/20/25 Etiology: Stage 3 Pressure Injury to coccyx was unstageable pressure injury Present on Admission Wound bed - red pink full thickness tissue loss - 0.6cm x 1cm x 0.4cm Drainage / Odor:serosang and no odor Palmer wound: red pink blanchable tissue with hyperpigmentation noted ? No Induration, Fluctuance or Warmth noted Pain: yes Goals of Treatment: ? triad to provide an occlusive dressing for autolytic debridment, to allow moist wound healing with absorption of mild exudate, to minimize contamination of urine/stool or bacteria, and to soothe and protect palmer wound skin- cover with foam for offloading. 04/16/25 04/20/25 Left lateral heel - Resfurfacing Etiology: previously unstageable pressure injury currently appears as partial thickness tissue loss - Present on Admission Wound Bed: dreid red scab Drainage / Odor: none Edges: ? pink dry, callused Palmer wound: ? No Induration, Fluctuance or Warmth noted - blanchable redness Pain: pain reported Goals of Treatment: ? durafiber for drainage absorption/foam for offloading 04/16/25 04/20/25 Right heel- intact, pink and blanching- protective heel foams in place - small central dark purple nonblanchable tissue noted - linear in shape not consistent with DTI as patient has low platlets (87) and significant purpura noted throughout her body. Left abdominal fold- purpura and intertriginous dermatitis- moist red - antifungal already in place Of note patient is refusing turns and repositions often attempted to discuss with patient she did not seem to understand the implications this had with her wounds. Specialty bed was ordered Pulsate to aid in comfort with bed and repositions. Bilateral Legs noted for venous dermatitis - intact dry thickened scales noted- recommend Ammonuium lactate cream per provider orders to aid in thickened tissue softening and gentle debridement. Texted to Provider. No new topical orders needed at this time. Recommendations: 1. Turn and Reposition every 2 hours and as needed for patient comfort. Use pillows or wedges to support off loading positions. 2. Off Load all bony prominences with use of pillows and heel boots if needed. Apply Preventative foams where needed. 3. Monitor for incontinence and moisture control, use barrier creams when needed for prevention and treatment. 4. Provide adequate and supplemental nutrition. 5. Order or Continue low air loss mattress. 6. When applicable maintain blood glucose levels per Providers order. Abdominal fold: assess all skin folds daily. routine gentle cleansing of skin folds, avoid scrubbing, pat area dry. wear lightweight, loose fitting clothing to promote air circulation. avoid placing products in skin folds that hold moisture against the skin. apply antifungal medication per provider orders, use only a light dusting to prevent caking. insert interdry ag into skin folds leaving 2-3 exposed to promote moisture wicking and evaporation. Right heel: Elevate heels off of bed surface with pillows. Float heels off of pillows. Apply skin prep allow to dry. Apply heel foam dressings, peel back and assess Q shift and change every 5-7 days and PRN. Coccyx: Off Load Pressure with Q2 hr turns and use of pillows - Cleanse with PH balance spray or wipes, pat dry. ?Apply thin layer of Triad to wound bed. Do not remove all of paste between applications as this may cause further skin damage.? Cover with foam dressing to aid in off loading and protection from friction. Change every other day and PRN. Left lateral heel: cleanse with normal saline, apply skin prep palmer wound, apply durafiber ag, to wound bed, cover with heel foams, change every other day and PRN - elevate heels off surface of bed with pillows Bilateral Lower Legs - Routine Cleansing. Apply Ammonium Lactate cream per provider orders. Re-consult wound care Nurse for wound deterioration or wound changes.
[2025-04-21 20:00] VITALS: BP 130/72; PULSE 112; RESP 20; TEMP 37; O2SAT 92
--- NOTE | 2025-04-21 23:36 | PC.RT ---
Pt refusing our CPAP, she does not like our masks. She states they do not fit her face and are not comfortable, Suggested she bring in her home unit
[2025-04-21 23:43] VITALS: BP 120/58; PULSE 99; RESP 18; TEMP 37.1; O2SAT 94
[2025-04-22] VITALS (11 sets, daily range): BP systolic 102–123; BP diastolic 59–77; PULSE 98–110; RESP 18–26; TEMP 36.2–37.5; O2SAT 92–96
[2025-04-22] MEDS: guaiFEN/Codeine SF 200/20/10ML 10 ML LIQUID 5 ML PO (03:37)
[2025-04-22 06:59] LABS: MANUAL DIFF FLAG NO
[2025-04-22 07:11] LABS: Hematocrit 39.8 % (37.0-47.0); Hemoglobin 12.8 g/dl (12.0-16.0); Imm Gran Abs Auto 0.02 X10*3/uL (0.00-0.03); Imm Gran Pct Auto 0.4 % (0.0-0.4); Lymphocytes Absolute Auto 0.4 X10*3/uL (1.2-4.9); Mean Corpuscular HGB Conc 32.2 g/dl (31.0-35.0); Mean Corpuscular Hemoglobin 28.1 pg (27.0-33.0); Mean Corpuscular Volume 87.3 fL (80.0-98.0); NRBC Abs Auto 0.000 X10*3/uL (0.0-0.012); NRBC Pct Auto 0.0 /100WBC (0.0-0.2); Red Blood Count 4.56 X10*6/uL (4.20-5.50); White Blood Count 4.5 X10*3/uL (4.8-10.8)
[2025-04-22 07:12] LABS: INTERNATIONAL NORM RATIO 2.3 (0.9-1.1); Prothrombin Time 27.7 SEC (11.2-13.5)
[2025-04-22 07:15] LABS: Platelet Count 95 X10*3/uL (160-400)
[2025-04-22 07:19] LABS: Alanine Aminotransferase 61 U/L (0-31); Albumin Level 3.0 g/dL (3.5-5.0); Alkaline Phosphatase 135 U/L (39-117); Anion Gap 14 (12-20); Aspartate Amino Transferase 163 U/L (5-31); Blood Urea Nitrogen 30 mg/dL (9-16); Calcium 9.0 mg/dL (8.4-10.2); Carbon Dioxide 27 mmol/L (22-29); Chloride 108 mmol/L (96-108); Creatinine Clr Calc Pharmacy 40.7; Estimated Glomerular Filt Rate > 60; Magnesium 1.9 mg/dL (1.6-2.6); Potassium 3.6 mmol/L (3.3-5.1); Sodium 145 mmol/L (135-145); Total Protein 5.5 g/dL (6.5-8.0)
[2025-04-22] MEDS: Ammonium Lactate 12 % Lotion 226 GM BOTTLE 1 APPL TOPICAL ×2 (09:09→21:44)
[2025-04-22] MEDS: 0.9 % Sodium Chloride Flush 3 ML SYRINGE IVFLUSH ×2 (09:10→16:44)
--- NOTE | 2025-04-22 09:49 | HO.WOUND ---
Wound Consult: Follow up 84 yr old female admitted to [facility] on 04/15/25- See progress notes and H&P for detailed history. Wound consult follow up today for chest and left hand skin tear. Coccyx and heels not assessed today as they were assessed yesterday with interventions in place, will plan to follow up at a later date. Patient agreeable to assessment and photo documentation. Patient reports history of wound to left heel, reports that it has drained for a long time. reports pain in her back and buttocks. Patient noted to be cachectic with pronounced clavicles and Sternum. Nutrition following and patient receiving ensure. Sternum - no open wound noted - concern for skin integrity. now with intact redness to tip of protruding area- skin prep and allevyn gentle border lite foam placed. Coccyx and left ischium 04/16/25 04/20/25 Etiology: Stage 3 Pressure Injury to coccyx was unstageable pressure injury Present on Admission Wound bed - red pink full thickness tissue loss - 0.6cm x 1cm x 0.4cm Drainage / Odor:serosang and no odor Palmer wound: red pink blanchable tissue with hyperpigmentation noted ? No Induration, Fluctuance or Warmth noted Pain: yes Goals of Treatment: ? triad to provide an occlusive dressing for autolytic debridment, to allow moist wound healing with absorption of mild exudate, to minimize contamination of urine/stool or bacteria, and to soothe and protect palmer wound skin- cover with foam for offloading. 04/16/25 04/20/25 Left lateral heel - Resfurfacing Etiology: previously unstageable pressure injury currently appears as partial thickness tissue loss - Present on Admission Wound Bed: dreid red scab Drainage / Odor: none Edges: ? pink dry, callused Palmer wound: ? No Induration, Fluctuance or Warmth noted - blanchable redness Pain: pain reported Goals of Treatment: ? durafiber for drainage absorption/foam for offloading 04/16/25 04/20/25 Right heel- intact, pink and blanching- protective heel foams in place - small central dark purple nonblanchable tissue noted - linear in shape not consistent with DTI as patient has low platlets (87) and significant purpura noted throughout her body. Left abdominal fold- purpura and intertriginous dermatitis- moist red - antifungal already in place Of note patient is refusing turns and repositions often attempted to discuss with patient she did not seem to understand the implications this had with her wounds. Specialty bed was ordered Pulsate to aid in comfort with bed and repositions. Bilateral Legs noted for venous dermatitis - intact dry thickened scales noted- recommend Ammonium lactate cream per provider orders to aid in thickened tissue softening and gentle debridement. Texted to Provider. No new topical orders needed at this time. Recommendations: 1. Turn and Reposition every 2 hours and as needed for patient comfort. Use pillows or wedges to support off loading positions. 2. Off Load all bony prominences with use of pillows and heel boots if needed. Apply Preventative foams where needed. 3. Monitor for incontinence and moisture control, use barrier creams when needed for prevention and treatment. 4. Provide adequate and supplemental nutrition. 5. Order or Continue low air loss mattress. 6. When applicable maintain blood glucose levels per Providers order. Abdominal fold: assess all skin folds daily. routine gentle cleansing of skin folds, avoid scrubbing, pat area dry. wear lightweight, loose fitting clothing to promote air circulation. avoid placing products in skin folds that hold moisture against the skin. apply antifungal medication per provider orders, use only a light dusting to prevent caking. insert interdry ag into skin folds leaving 2-3 exposed to promote moisture wicking and evaporation. Right heel: Elevate heels off of bed surface with pillows. Float heels off of pillows. Apply skin prep allow to dry. Apply heel foam dressings, peel back and assess Q shift and change every 5-7 days and PRN. Coccyx: Off Load Pressure with Q2 hr turns and use of pillows - Cleanse with PH balance spray or wipes, pat dry. ?Apply thin layer of Triad to wound bed. Do not remove all of paste between applications as this may cause further skin damage.? Cover with foam dressing to aid in off loading and protection from friction. Change every other day and PRN. Left lateral heel: cleanse with normal saline, apply skin prep palmer wound, apply durafiber ag, to wound bed, cover with heel foams, change every other day and PRN - elevate heels off surface of bed with pillows Bilateral Lower Legs - Routine Cleansing. Apply Ammonium Lactate cream per provider orders. Re-consult wound care Nurse for wound deterioration or wound changes.
[2025-04-22 10:09] LABS: Resp Syncy Virus RNA Qual PCR NEGATIVE (Negative); SARS COV2 PCR INHOUSE NEGATIVE (Negative)
--- NOTE | 2025-04-22 10:52 | HO.WOUND ---
Wound Consult: Follow up 84 yr old female admitted to [facility] [place] on 04/15/25- See progress notes and H&P for detailed history. Wound consult follow up today for chest and left hand skin tear. Coccyx and heels not assessed today as they were assessed yesterday with interventions in place, will plan to follow up at a later date. Patient agreeable to assessment and photo documentation. Patient reports history of wound to left heel, reports that it has drained for a long time. reports pain in her back and buttocks. Patient noted to be cachectic with pronounced clavicles and Sternum. Nutrition following and patient receiving ensure. Sternum - no open wound noted - concern for skin integrity. now with intact redness to tip of protruding area- skin prep and allevyn gentle border lite foam placed. Left hand- skin tear- foam Coccyx and left ischium 04/16/25 04/20/25 Etiology: Stage 3 Pressure Injury to coccyx was unstageable pressure injury Present on Admission Wound bed - red pink full thickness tissue loss - 0.6cm x 1cm x 0.4cm Drainage / Odor:serosang and no odor Palmer wound: red pink blanchable tissue with hyperpigmentation noted ? No Induration, Fluctuance or Warmth noted Pain: yes Goals of Treatment: ? triad to provide an occlusive dressing for autolytic debridment, to allow moist wound healing with absorption of mild exudate, to minimize contamination of urine/stool or bacteria, and to soothe and protect palmer wound skin- cover with foam for offloading. 04/16/25 04/20/25 Left lateral heel - Resfurfacing Etiology: previously unstageable pressure injury currently appears as partial thickness tissue loss - Present on Admission Wound Bed: dreid red scab Drainage / Odor: none Edges: ? pink dry, callused Palmer wound: ? No Induration, Fluctuance or Warmth noted - blanchable redness Pain: pain reported Goals of Treatment: ? durafiber for drainage absorption/foam for offloading 04/16/25 04/20/25 Right heel- intact, pink and blanching- protective heel foams in place - small central dark purple nonblanchable tissue noted - linear in shape not consistent with DTI as patient has low platlets (87) and significant purpura noted throughout her body. Left abdominal fold- purpura and intertriginous dermatitis- moist red - antifungal already in place Of note patient is refusing turns and repositions often attempted to discuss with patient she did not seem to understand the implications this had with her wounds. Specialty bed was ordered Pulsate to aid in comfort with bed and repositions. Bilateral Legs noted for venous dermatitis - intact dry thickened scales noted- recommend Ammonium lactate cream per provider orders to aid in thickened tissue softening and gentle debridement. Texted to Provider. No new topical orders needed at this time. Recommendations: 1. Turn and Reposition every 2 hours and as needed for patient comfort. Use pillows or wedges to support off loading positions. 2. Off Load all bony prominences with use of pillows and heel boots if needed. Apply Preventative foams where needed. 3. Monitor for incontinence and moisture control, use barrier creams when needed for prevention and treatment. 4. Provide adequate and supplemental nutrition. 5. Order or Continue low air loss mattress. 6. When applicable maintain blood glucose levels per Providers order. Abdominal fold: assess all skin folds daily. routine gentle cleansing of skin folds, avoid scrubbing, pat area dry. wear lightweight, loose fitting clothing to promote air circulation. avoid placing products in skin folds that hold moisture against the skin. apply antifungal medication per provider orders, use only a light dusting to prevent caking. insert interdry ag into skin folds leaving 2-3 exposed to promote moisture wicking and evaporation. Right heel: Elevate heels off of bed surface with pillows. Float heels off of pillows. Apply skin prep allow to dry. Apply heel foam dressings, peel back and assess Q shift and change every 5-7 days and PRN. Coccyx: Off Load Pressure with Q2 hr turns and use of pillows - Cleanse with PH balance spray or wipes, pat dry. ?Apply thin layer of Triad to wound bed. Do not remove all of paste between applications as this may cause further skin damage.? Cover with foam dressing to aid in off loading and protection from friction. Change every other day and PRN. Left lateral heel: cleanse with normal saline, apply skin prep palmer wound, apply durafiber ag, to wound bed, cover with heel foams, change every other day and PRN - elevate heels off surface of bed with pillows Bilateral Lower Legs - Routine Cleansing. Apply Ammonium Lactate cream per provider orders. Left Hand: cleanse with saline, pat dry, apply skin prep and allow to dry, apply foam dressing, change every 3 days and PRN Re-consult wound care Nurse for wound deterioration or wound changes.
--- NOTE | 2025-04-22 12:39 | P.PNIM_ITS ---
Subjective Subjective Date of Service: 04/22/25 Interval History: INR remains elevated at 2.3, was given FFP in anticipation for stent removal later today Pt again experiencing mostly non-productive cough, tested positive for flu CXR with pulmonary edema Surgery has been canceled; will have to be arranged outpatient once pt more stable Will initiate Tamiflu Review of Systems Review of Systems: Yes all other systems are reviewed and are negative Physical Exam 2 Exam: Exam: General: AOx3, frail and chronically weak appearing Resp: Bilateral coarse breath sounds CVS: Irregularly irregular rhythm GI: NT, soft, no distention Back: Thoracic kyphosis Skin: See wound care note for decubitus ulcers on heels and sacral area Neuro: Cranial nerves II-XII grossly intact bilaterally. Motor grossly intact bilaterally. Global though symmetric weakness Extremities: No edema Psych: Appropriate affect Vital Signs: Vital Signs: Last Vital Signs Temp 98.4 F 04/22/25 10:57 Pulse 103 H 04/22/25 10:57 Resp 18 04/22/25 10:57 BP 110/63 04/22/25 10:57 Pulse Ox 93 04/22/25 07:14 O2 Del Method Nasal Cannula 04/22/25 07:14 O2 Flow Rate 2 04/22/25 07:14 BMI result Body Mass Index 22.7 Objective Data Active Medications Acetaminophen (Acetaminophen 325 Mg Tablet) 650 mg PO Q6H PRN PRN Reason: Pain, Mild 1-3,fever,headache Last Admin: 04/21/25 05:28 Dose: 650 mg Documented By: ARJUN Albuterol Sulfate (Albuterol Sulfate 90 Mcg 8 Gm Inhaler) 2 puff INHALE Q4H PRN PRN Reason: shortness of breath or wheezing Albuterol/Ipratropium (Albuterol/Iprat 2.5/0.5mg 3 Ml Ampul.Neb) 3 ml INHALE RQ4H WHILE AWAKE PRN PRN Reason: Shortness of Breath/Wheezing Amiodarone HCl (Amiodarone Hcl 200 Mg Tablet) 200 mg PO DAILY [facility] Last Admin: 04/22/25 09:08 Dose: 200 mg Documented By: TALIA Atorvastatin Calcium (Atorvastatin Calcium 80 Mg Tablet) 80 mg PO DAILY [facility] On Hold: 04/22/25 12:12 Last Admin: 04/22/25 09:08 Dose: 80 mg Documented By: TALIA Benzonatate (Benzonatate 100 Mg Capsule) 100 mg PO TID PRN PRN Reason: Cough Last Admin: 04/21/25 22:07 Dose: 100 mg Documented By: SHEREEN Calcium Carbonate (Calcium Carbonate 750 Mg Tab.Chew) 750 mg PO Q4H PRN PRN Reason: Heartburn Furosemide (Furosemide 40 Mg Tablet) 40 mg PO BID [facility]; Protocol Last Admin: 04/22/25 09:08 Dose: 40 mg Documented By: TALIA Guaifenesin/Codeine Phosphate (Guaifen/Codeine Sf 200/20/10ml 10 Ml Liquid) 5 ml PO Q6H PRN PRN Reason: Cough Last Admin: 04/22/25 03:37 Dose: 5 ml Documented By: JAYLA Ceftriaxone Sodium 1 gm/ (Sodium Chloride) 50 mls @ 100 mls/hr IV Q24H [facility] Last Infusion: 04/21/25 23:43 Dose: Infused Documented By: JAYLA Lactic Acid (Ammonium Lactate 12 % Lotion 226 Gm Bottle) 1 appl TOPICAL BID [facility]; Protocol Last Admin: 04/22/25 09:09 Dose: 1 appl Documented By: TALIA Magnesium Hydroxide (Milk Of Magnesia 30 Ml Oral.Susp) 30 ml PO DAILY PRN PRN Reason: Constipation Magnesium Oxide (Magnesium Oxide 400 Mg Tablet) 400 mg PO BIDPC [facility] Last Admin: 04/22/25 09:08 Dose: 400 mg Documented By: TALIA Melatonin (Melatonin 3 Mg Tablet) 6 mg PO BEDTIME PRN PRN Reason: Insomnia Metoprolol Tartrate (Metoprolol Tartrate 5 Mg/5 Ml Vial) 5 mg IVPUSH Q6H PRN; Protocol PRN Reason: Heart Rate >100 Last Admin: 04/20/25 21:03 Dose: 5 mg Documented By: ARJUN Nystatin (Nystatin Powder 15 Gm Bottle) 1 appl TOPICAL BID [facility]; Protocol Last Admin: 04/22/25 09:08 Dose: 1 appl Documented By: TALIA Omeprazole (Omeprazole 20 Mg Capsule.Dr) 20 mg PO BID@0630,1630 [facility] Last Admin: 04/22/25 05:57 Dose: 20 mg Documented By: JAYLA Oxycodone HCl (Oxycodone Hcl Immed Release 5 Mg Tablet) 5 mg PO Q6H PRN PRN Reason: Pain, Severe (Pain Scale 7-10) Last Admin: 04/20/25 13:12 Dose: 5 mg Documented By: AMBROSIO Sodium Chloride (0.9 % Sodium Chloride Flush 3 Ml Syringe) 3 ml IVFLUSH QSHIFT [facility] Last Admin: 04/22/25 09:10 Dose: 3 ml Documented By: TALIA Spironolactone (Spironolactone 25 Mg Tablet) 12.5 mg PO DAILY [facility]; Protocol On Hold: 04/16/25 12:09 Last Admin: 04/16/25 09:45 Dose: Not Given Documented By: KEVIN Non-Admin Reason: BP 90/55 Thiamine HCl (Thiamine Hcl 100 Mg Tablet) 100 mg PO DAILY [facility] Last Admin: 04/22/25 09:08 Dose: 100 mg Documented By: TALIA Tramadol HCl (Tramadol Hcl 50 Mg Tablet) 50 mg PO Q6H PRN PRN Reason: Pain, Moderate(Pain Scale 4-6) Last Admin: 04/17/25 22:11 Dose: 50 mg Documented By: HAWK Labs 04/22/25 06:44 04/22/25 06:44 Labs: Laboratory Results - last 24 hr 04/22/25 04/22/25 04/22/25 06:44 08:56 09:11 MCV 87.3 MCH 28.1 MCHC 32.2 RDW 16.8 H Plt Count 95 L MPV 10.3 Immature Gran % (Auto) 0.4 Neut % (Auto) 85.1 H Lymph % (Auto) 8.8 L Dewey % (Auto) 5.5 Eos % (Auto) 0.0 Baso % (Auto) 0.2 Lymph # (Auto) 0.4 L Dewey # (Auto) 0.3 Eos # (Auto) 0.0 Baso # (Auto) 0.0 Abs Immat Gran (auto) 0.02 Absolute Neuts (auto) 3.9 Absolute Nucleated RBC 0.000 Nucleated RBC % (auto) 0.0 PT 27.7 H INR 2.3 H Anion Gap 14 Estim Creat Clear Calc 40.7 Estimated GFR > 60 Random Glucose 117 H Calcium 9.0 D Magnesium 1.9 Total Bilirubin 0.5 AST 163 H ALT 61 H Alkaline Phosphatase 135 H Total Protein 5.5 L Albumin 3.0 L Influenza Type A (PCR) POSITIVE A Influenza Type B (PCR) NEGATIVE RSV RNA Qual (PCR) NEGATIVE SARS-CoV-2 RNA (RT-PCR) NEGATIVE Blood Type A Positive Antibody Screen NEGATIVE Microbiology Microbiology Results: Microbiology 04/17/25 09:12 Blood Culture - Final Blood - Venous No growth after 5 days. 04/17/25 09:13 Blood Culture - Final Blood - Venous No growth after 5 days. Blood Culture - Final No growth after 5 days. Assessment and Plan (1) Pyelonephritis: Status: Acute Plan 84-year-old lady with PMH of pertinent for CKD, nephrolithiasis with right ureteral stent placed 1.5 years ago, hypertension, hyperlipidemia, GORDON on CPAP, pulmonary hypertension, HFrEF (EF 20%), paroxysmal AFib, porcine mitral valve replacement, AICD status post pacemaker on Coumadin is admitted to the hospital from the Coumadin clinic due to supratherapeutic INR (10.2). Pt noted fall with findings of T10 fx, acute pyelo, sigmoid diverticultis, lung nodule and thyroid nodules on imaging. Acute pyelonephritis with retained, calcified right ureteral stent placed 1.5 years ago - likely source of recurrent UTIs - continue ceftriaxone, day 8 - urology consulted, initially planned on stent removal on at 14:30; was given FFP to drop INR <2.0 - cardiology consulted for anesthesia risk stratification: Overall stable many chronic cardiac issues. Intermediate to high risk, but not modifiable - surgery canceled after pt developed cough and SOB and tested positive for flu; will need to be arrange outpatient once pt is more stable - monitor CBC and BMP Acute influenza A infection - tested positive on 04/22; surgery canceled - Tamiflu initiated on 04/22 with two doses; 30mg bid - monitor respiratory status elevated troponins - mildly elevated and flat at 27.3 with repeat 31.3 - pt was sharp and stabbing chest pain on 04/19 - monitor on telemetry question of sigmoid diverticulitis - as seen on CT - pt initially reported some LLQ pain and bowel irregularity - Initially treated with ceftriaxone and flagyl; flagyl stopped - currently tolerating full diet, abd pain resolved, diverticulitis unlikely Moderate protein calorie malnutrition - dietary consult placed - protein supplementation ARIADNA on CKD, resolved - treated IVF - avoid nephrotoxins - monitor cr acute hyperkalemia, prolonged QTC, resolved - mild hyperkalemia, resolved with IVF - recheck BMP now - repeat EKG when lytes normalized T10 fracture on CT - likely secondary to fall at home in bathroom 2 weeks prior; pt hit back on toilet, did not seek medical evaluation at that time - ED provider spoke with [facility] neurosurgery who suggested fx appears stable, no need for transfer - pain management - outpatient evaluation - PT consulted, recommend STR Chronic sacral and heel decubitus ulcers - see wound care notes for pictures and additonal care instructions - airloss mattress; pt has been refusing positioning - Right heel: Elevate heels off of bed surface with pillows. Float heels off of pillows. Apply skin prep allow to dry. Apply heel foam dressings, peel back and assess Q shift and change every 5-7 days and PRN - Coccyx: Off Load Pressure with Q2 hr turns and use of pillows - Cleanse with PH balance spray or wipes, pat dry. ?Apply thin layer of Triad to wound bed. Do not remove all of paste between applications as this may cause further skin damage.? Cover with foam dressing to aid in off loading and protection from friction. Change every other day and PRN. - Left lateral heel: cleanse with normal saline, apply skin prep palmer wound, apply durafiber ag, to wound bed, cover with heel foams, change every other day and PRN - elevate heels off surface of bed with pillows - Bilateral Lower Legs - Routine Cleansing. Apply Ammonium Lactate cream per provider orders. lung nodule on CT - repeat chest CT in 3 mo outpt thyroid nodules on CT - f/u output for thyroid US paroxysmal a fib with supratherapeutic INR - amiodarone and metoprolol, hold metoprolol if SBP <90 - INR initially 10.5, currenlty 2.3 - will switch to Eliquis 2.5mg bid GORDON - CPAP at bedtime HFrEF, no acute exacerbation - BNP around baseline, no evidence of fluid overload - continue spironolactone - limit IVF - monitor for fluid overload HTN - hold amlodipine, lisinopril, carvidelol due to soft BP HLD - continue statin due to ARIADNA Breast mass - noted on physical exam -mammogram outpatient settings DNI VTE prophy: Warfarin Pt requires continued hospitalization as she will undergo ureteral stent removal on . Currently waiting on INR to drop further below 2.0. Pt will then need PT evaluation post surgery for safe disposition. Quality Stroke Does the patient have a stroke diagnosis?: No VTE Prior VTE?: No VTE Risk Level:: Medical - moderate - high VTE Device Contraindication: N/A - Device Ordered VTE Drug Contraindication: Treatment Not Indicated
[2025-04-22] MEDS: Furosemide 20 MG/2 ML VIAL IVPUSH (13:24)
--- NOTE | 2025-04-22 13:41 | MHC.CM.PN ---
PT RECOMMENDING STR CM MET WITH PT AND SON AT BEDSIDE THEY ARE AGREEABLE AND PREFER [facility] FOLLOWED BY MARIEL YEBOAH PT IS FLU + SO WILL NEED A PRIVATE ROOM REFERRAL OUT
[2025-04-23] MEDS: 0.9 % Sodium Chloride Flush 3 ML SYRINGE IVFLUSH ×4 (00:30→20:12)
[2025-04-23 04:00] VITALS: BP 105/58; PULSE 85; RESP 20; TEMP 36.2; O2SAT 94
[2025-04-23] MEDS: guaiFEN/Codeine SF 200/20/10ML 10 ML LIQUID 5 ML PO ×2 (05:37→16:32)
[2025-04-23 06:33] LABS: MANUAL DIFF FLAG NO
[2025-04-23 06:40] LABS: Hematocrit 37.3 % (37.0-47.0); Hemoglobin 11.9 g/dl (12.0-16.0); Imm Gran Abs Auto 0.02 X10*3/uL (0.00-0.03); Imm Gran Pct Auto 0.5 % (0.0-0.4); Lymphocytes Absolute Auto 0.4 X10*3/uL (1.2-4.9); Mean Corpuscular HGB Conc 31.9 g/dl (31.0-35.0); Mean Corpuscular Hemoglobin 28.1 pg (27.0-33.0); Mean Corpuscular Volume 88.2 fL (80.0-98.0); NRBC Abs Auto 0.000 X10*3/uL (0.0-0.012); NRBC Pct Auto 0.0 /100WBC (0.0-0.2); Red Blood Count 4.23 X10*6/uL (4.20-5.50); White Blood Count 3.7 X10*3/uL (4.8-10.8)
[2025-04-23 06:44] LABS: Platelet Count 94 X10*3/uL (160-400)
[2025-04-23 06:45] LABS: INTERNATIONAL NORM RATIO 2.1 (0.9-1.1); Prothrombin Time 25.1 SEC (11.2-13.5)
[2025-04-23 07:13] VITALS: BP 111/61; PULSE 92; RESP 20; TEMP 37.2; O2SAT 93
[2025-04-23 07:34] LABS: Alanine Aminotransferase 61 U/L (0-31); Albumin Level 3.1 g/dL (3.5-5.0); Alkaline Phosphatase 149 U/L (39-117); Anion Gap 14 (12-20); Aspartate Amino Transferase 149 U/L (5-31); Blood Urea Nitrogen 37 mg/dL (9-16); Calcium 8.8 mg/dL (8.4-10.2); Carbon Dioxide 30 mmol/L (22-29); Chloride 104 mmol/L (96-108); Creatinine Clr Calc Pharmacy 32.0; Estimated Glomerular Filt Rate 47; Magnesium 2.2 mg/dL (1.6-2.6); Potassium 3.8 mmol/L (3.3-5.1); Sodium 144 mmol/L (135-145); Total Protein 5.7 g/dL (6.5-8.0)
[2025-04-23 08:37] VITALS: BP 111/61
[2025-04-23] MEDS: Ammonium Lactate 12 % Lotion 226 GM BOTTLE 1 APPL TOPICAL ×2 (08:37→20:13)
--- NOTE | 2025-04-23 11:55 | HO.PM.IMPN ---
Subjective Subjective Date of Service: 04/23/25 Interval History: Cough last night, better this morning Breathing improved sitting in recliner LFTs continue to be elevated No chest pain or pressure Denies abd pain Review of Systems Review of Systems: Yes all other systems are reviewed and are negative Physical Exam Exam: Exam: General: AOx3, frail and chronically weak appearing Resp: Bilateral coarse breath sounds, improved from yesterday. Still on supplemental O2 CVS: Irregularly irregular rhythm GI: NT, soft, no distention Back: Thoracic kyphosis Skin: See wound care note for decubitus ulcers on heels and sacral area Neuro: Cranial nerves II-XII grossly intact bilaterally. Motor grossly intact bilaterally. Global though symmetric weakness Extremities: No edema Psych: Appropriate affect Vital Signs: Vital Signs: Last Vital Signs Temp 99.0 F 04/23/25 07:13 Pulse 92 04/23/25 07:13 Resp 20 04/23/25 07:13 BP 111/61 04/23/25 08:37 Pulse Ox 93 04/23/25 07:13 O2 Del Method Nasal Cannula 04/23/25 07:13 O2 Flow Rate 2 04/23/25 07:13 BMI result Body Mass Index 22.7 Objective Data Active Medications Acetaminophen (Acetaminophen 325 Mg Tablet) 650 mg PO Q6H PRN PRN Reason: Pain, Mild 1-3,fever,headache Last Admin: 04/21/25 05:28 Dose: 650 mg Documented By: ARJUN Albuterol Sulfate (Albuterol Sulfate 90 Mcg 8 Gm Inhaler) 2 puff INHALE Q4H PRN PRN Reason: shortness of breath or wheezing Albuterol/Ipratropium (Albuterol/Iprat 2.5/0.5mg 3 Ml Ampul.Neb) 3 ml INHALE RQ4H WHILE AWAKE PRN PRN Reason: Shortness of Breath/Wheezing Amiodarone HCl (Amiodarone Hcl 200 Mg Tablet) 200 mg PO DAILY [facility] Last Admin: 04/23/25 08:37 Dose: 200 mg Documented By: TALIA Apixaban (Apixaban 2.5 Mg Tablet) 2.5 mg PO BID [facility] Atorvastatin Calcium (Atorvastatin Calcium 80 Mg Tablet) 80 mg PO DAILY [facility] On Hold: 04/22/25 12:12 Last Admin: 04/22/25 09:08 Dose: 80 mg Documented By: TALIA Benzonatate (Benzonatate 100 Mg Capsule) 100 mg PO TID PRN PRN Reason: Cough Last Admin: 04/21/25 22:07 Dose: 100 mg Documented By: SHEREEN Calcium Carbonate (Calcium Carbonate 750 Mg Tab.Chew) 750 mg PO Q4H PRN PRN Reason: Heartburn Furosemide (Furosemide 40 Mg Tablet) 40 mg PO BID [facility]; Protocol Last Admin: 04/23/25 08:37 Dose: 40 mg Documented By: TALIA Guaifenesin/Codeine Phosphate (Guaifen/Codeine Sf 200/20/10ml 10 Ml Liquid) 5 ml PO Q6H PRN PRN Reason: Cough Last Admin: 04/23/25 05:37 Dose: 5 ml Documented By: ANTUMESH Ceftriaxone Sodium 1 gm/ (Sodium Chloride) 50 mls @ 100 mls/hr IV Q24H [facility] Last Infusion: 04/22/25 22:13 Dose: Infused Documented By: NIEVESASY Lactic Acid (Ammonium Lactate 12 % Lotion 226 Gm Bottle) 1 appl TOPICAL BID [facility]; Protocol Last Admin: 04/23/25 08:37 Dose: 1 appl Documented By: TALIA Magnesium Hydroxide (Milk Of Magnesia 30 Ml Oral.Susp) 30 ml PO DAILY PRN PRN Reason: Constipation Magnesium Oxide (Magnesium Oxide 400 Mg Tablet) 400 mg PO BIDPC [facility] Last Admin: 04/23/25 08:37 Dose: 400 mg Documented By: TALIA Melatonin (Melatonin 3 Mg Tablet) 6 mg PO BEDTIME PRN PRN Reason: Insomnia Metoprolol Tartrate (Metoprolol Tartrate 5 Mg/5 Ml Vial) 5 mg IVPUSH Q6H PRN; Protocol PRN Reason: Heart Rate >100 Last Admin: 04/20/25 21:03 Dose: 5 mg Documented By: ARJUN Nystatin (Nystatin Powder 15 Gm Bottle) 1 appl TOPICAL BID [facility]; Protocol Last Admin: 04/23/25 08:37 Dose: 1 appl Documented By: TALIA Omeprazole (Omeprazole 20 Mg Capsule.) 20 mg PO BID@0630,1630 [facility] Last Admin: 04/23/25 05:38 Dose: 20 mg Documented By: TREV Oseltamivir Phosphate (Oseltamivir Phosphate 30 Mg Capsule) 30 mg PO Q12H [facility] Stop: 04/26/25 21:01 Last Admin: 04/23/25 08:37 Dose: 30 mg Documented By: TALIA Oxycodone HCl (Oxycodone Hcl Immed Release 5 Mg Tablet) 5 mg PO Q6H PRN PRN Reason: Pain, Severe (Pain Scale 7-10) Last Admin: 04/20/25 13:12 Dose: 5 mg Documented By: AMBROSIO Sodium Chloride (0.9 % Sodium Chloride Flush 3 Ml Syringe) 3 ml IVFLUSH QSHIFT [facility] Last Admin: 04/23/25 08:38 Dose: 3 ml Documented By: TALIA Spironolactone (Spironolactone 25 Mg Tablet) 12.5 mg PO DAILY [facility]; Protocol On Hold: 04/16/25 12:09 Last Admin: 04/16/25 09:45 Dose: Not Given Documented By: KEVIN Non-Admin Reason: BP 90/55 Thiamine HCl (Thiamine Hcl 100 Mg Tablet) 100 mg PO DAILY [facility] Last Admin: 04/23/25 08:37 Dose: 100 mg Documented By: TALIA Tramadol HCl (Tramadol Hcl 50 Mg Tablet) 50 mg PO Q6H PRN PRN Reason: Pain, Moderate(Pain Scale 4-6) Last Admin: 04/17/25 22:11 Dose: 50 mg Documented By: HAWK Labs 04/23/25 06:29 04/23/25 06:29 Labs: Laboratory Results - last 24 hr 04/23/25 06:29 MCV 88.2 MCH 28.1 MCHC 31.9 RDW 16.7 H Plt Count 94 L MPV 10.4 Immature Gran % (Auto) 0.5 H Neut % (Auto) 81.7 H Lymph % (Auto) 11.2 L [place] % (Auto) 6.6 Eos % (Auto) 0.0 Baso % (Auto) 0.0 Lymph # (Auto) 0.4 L [place] # (Auto) 0.2 Eos # (Auto) 0.0 Baso # (Auto) 0.0 Abs Immat Gran (auto) 0.02 Absolute Neuts (auto) 3.0 Absolute Nucleated RBC 0.000 Nucleated RBC % (auto) 0.0 PT 25.1 H INR 2.1 H Anion Gap 14 Estim Creat Clear Calc 32.0 Estimated GFR 47 Random Glucose 143 H Calcium 8.8 Magnesium 2.2 Total Bilirubin 0.4 AST 149 H ALT 61 H Alkaline Phosphatase 149 H Total Protein 5.7 L Albumin 3.1 L Microbiology Microbiology Results: Microbiology 04/17/25 09:12 Blood Culture - Final Blood - Venous No growth after 5 days. 04/17/25 09:13 Blood Culture - Final Blood - Venous No growth after 5 days. Blood Culture - Final No growth after 5 days. Assessment and Plan (1) Pyelonephritis: Status: Acute Plan 84-year-old lady with PMH of pertinent for CKD, nephrolithiasis with right ureteral stent placed 1.5 years ago, hypertension, hyperlipidemia, GORDON on CPAP, pulmonary hypertension, HFrEF (EF 20%), paroxysmal AFib, porcine mitral valve replacement, AICD status post pacemaker on Coumadin is admitted to the hospital from the Coumadin clinic due to supratherapeutic INR (10.2). Pt noted fall with findings of T10 fx, acute pyelo, sigmoid diverticultis, lung nodule and thyroid nodules on imaging. Acute pyelonephritis with retained, calcified right ureteral stent placed 1.5 years ago - likely source of recurrent UTIs - received ceftriaxone x8 days; will switch to cefuroxime 250 mg b.i.d. x2 days - urology consulted, initially planned on stent removal on at 14:30 but was canceled after pt with SOB and flu+; will need to be arrange outpatient once pt is more stable - cardiology consulted for anesthesia risk stratification: Overall stable many chronic cardiac issues. Intermediate to high risk, but not modifiable Acute hypoxic respiratory failure in the setting of acute influenza A infection - tested positive on 04/22; surgery canceled - has been requiring 2 L NC to maintain 92% - Tamiflu initiated on 04/22 with two doses; 30mg bid x4 days - monitor respiratory status - titrate supplemental O2>92, wean as tolerated elevated troponins - mildly elevated and flat at 27.3 with repeat 31.3 - pt was sharp and stabbing chest pain on 04/19 - monitor on telemetry question of sigmoid diverticulitis - as seen on CT - pt initially reported some LLQ pain and bowel irregularity - Initially treated with ceftriaxone and flagyl; flagyl stopped - currently tolerating full diet, abd pain resolved, diverticulitis unlikely Moderate protein calorie malnutrition - dietary consult placed - protein supplementation ARIADNA on CKD, resolved - treated IVF - avoid nephrotoxins - monitor cr acute hyperkalemia, prolonged QTC, resolved - mild hyperkalemia, resolved with IVF - recheck BMP now - repeat EKG when lytes normalized T10 fracture on CT - likely secondary to fall at home in bathroom 2 weeks prior; pt hit back on toilet, did not seek medical evaluation at that time - ED provider spoke with [facility] neurosurgery who suggested fx appears stable, no need for transfer - pain management - outpatient evaluation - PT consulted, recommend STR Chronic sacral and heel decubitus ulcers - see wound care notes for pictures and additonal care instructions - airloss mattress; pt has been refusing positioning - Right heel: Elevate heels off of bed surface with pillows. Float heels off of pillows. Apply skin prep allow to dry. Apply heel foam dressings, peel back and assess Q shift and change every 5-7 days and PRN - Coccyx: Off Load Pressure with Q2 hr turns and use of pillows - Cleanse with PH balance spray or wipes, pat dry. ?Apply thin layer of Triad to wound bed. Do not remove all of paste between applications as this may cause further skin damage.? Cover with foam dressing to aid in off loading and protection from friction. Change every other day and PRN. - Left lateral heel: cleanse with normal saline, apply skin prep palmer wound, apply durafiber ag, to wound bed, cover with heel foams, change every other day and PRN - elevate heels off surface of bed with pillows - Bilateral Lower Legs - Routine Cleansing. Apply Ammonium Lactate cream per provider orders. lung nodule on CT - repeat chest CT in 3 mo outpt thyroid nodules on CT - f/u output for thyroid US paroxysmal a fib with supratherapeutic INR - amiodarone and metoprolol, hold metoprolol if SBP <90 - INR initially 10.5, currenlty 2.3 - will switch to Eliquis 2.5mg bid GORDON - CPAP at bedtime HFrEF, no acute exacerbation - BNP around baseline, no evidence of fluid overload - continue spironolactone - limit IVF - monitor for fluid overload HTN - hold amlodipine, lisinopril, carvidelol due to soft BP HLD - continue statin due to ARIADNA Breast mass - noted on physical exam -mammogram outpatient settings DNI VTE prophy: Warfarin Pt requires continued hospitalization as she now is awaiting safe disposition to short-term rehab. Quality Stroke Does the patient have a stroke diagnosis?: No VTE Prior VTE?: No VTE Risk Level:: Medical - moderate - high VTE Device Contraindication: N/A - Device Ordered VTE Drug Contraindication: Treatment Not Indicated
--- NOTE | 2025-04-23 11:56 | HO.WOUND ---
Wound Consult: Follow up 84 yr old female admitted to [facility] on 04/15/25- See progress notes and H&P for detailed history. Wound consult follow up today for chest, heels coccyx. Patient agreeable to assessment and photo documentation. Patient reports history of wound to left heel, reports that it has drained for a long time. reports pain in her back and buttocks. Patient noted to be cachectic with pronounced clavicles and Sternum. Nutrition following and patient receiving ensure. Patient sitting up in recliner today, waffle cushion in place. Patient stood with assistance for assessment of coccyx, transferring from commode to chair. Sternum - no open wound noted - concern for skin integrity. intact redness to tip of protruding area improved from yesterday- skin prep and allevyn gentle border lite foam placed. Coccyx and left ischium 04/16/25 04/20/25 Coccyx 04/22/25 Etiology: Stage 3 Pressure Injury to coccyx previously unstageable pressure injury Present on Admission Wound bed - red pink and scant yellow full thickness tissue loss - 0.7cm x 1.2cm x 0.4cm Drainage / Odor:serosang and no odor Palmer wound: red pink blanchable tissue with hyperpigmentation noted ? No Induration, Fluctuance or Warmth noted Pain: yes Goals of Treatment: ? triad to provide an occlusive dressing for autolytic debridment, to allow moist wound healing with absorption of mild exudate, to minimize contamination of urine/stool or bacteria, and to soothe and protect palmer wound skin- cover with foam for offloading. 04/16/25 04/20/25 Left heel 04/22/25 Left lateral heel - Resfurfacing Etiology: previously unstageable pressure injury currently appears as superficial - Present on Admission Wound Bed: moist pink/yellow Drainage / Odor: none Edges: ? pink dry, callused Palmer wound: ? No Induration, Fluctuance or Warmth noted - blanchable redness Pain: pain reported Goals of Treatment: ? durafiber for drainage absorption/foam for offloading 04/16/25 04/20/25 Right heel 04/22/25 improving area of purpura - intact Right heel- intact, pink and blanching- protective heel foams in place - small central dark purple nonblanchable tissue noted - linear in shape not consistent with DTI as patient has low platlets (87) and significant purpura noted throughout her body - improved from previous assessment Left abdominal fold- purpura and intertriginous dermatitis- moist red - antifungal already in place Of note patient is refusing turns and repositions often attempted to discuss with patient she did not seem to understand the implications this had with her wounds. Specialty bed was ordered Pulsate to aid in comfort with bed and repositions. Patient reports sometimes improved comfort with bed but staff reporting patient complaining of not being confortable in bed. Bilateral Legs noted for venous dermatitis - intact dry thickened scales noted- recommend Ammonium lactate cream per provider orders to aid in thickened tissue softening and gentle debridement. Texted to Provider. No new topical orders needed at this time. Recommendations: 1. Turn and Reposition every 2 hours and as needed for patient comfort. Use pillows or wedges to support off loading positions. 2. Off Load all bony prominences with use of pillows and heel boots if needed. Apply Preventative foams where needed. 3. Monitor for incontinence and moisture control, use barrier creams when needed for prevention and treatment. 4. Provide adequate and supplemental nutrition. 5. Order or Continue low air loss mattress. 6. When applicable maintain blood glucose levels per Providers order. Abdominal fold: assess all skin folds daily. routine gentle cleansing of skin folds, avoid scrubbing, pat area dry. wear lightweight, loose fitting clothing to promote air circulation. avoid placing products in skin folds that hold moisture against the skin. apply antifungal medication per provider orders, use only a light dusting to prevent caking. insert interdry ag into skin folds leaving 2-3 exposed to promote moisture wicking and evaporation. Right heel: Elevate heels off of bed surface with pillows. Float heels off of pillows. Apply skin prep allow to dry. Apply heel foam dressings, peel back and assess Q shift and change every 5-7 days and PRN. Coccyx: Off Load Pressure with Q2 hr turns and use of pillows - Cleanse with PH balance spray or wipes, pat dry. ?Apply thin layer of Triad to wound bed. Do not remove all of paste between applications as this may cause further skin damage.? Cover with foam dressing to aid in off loading and protection from friction. Change every other day and PRN. Left lateral heel: cleanse with normal saline, apply skin prep palmer wound, apply durafiber ag, to wound bed, cover with heel foams, change every other day and PRN - elevate heels off surface of bed with pillows Bilateral Lower Legs - Routine Cleansing. Apply Ammonium Lactate cream per provider orders. Left Hand: cleanse with saline, pat dry, apply skin prep and allow to dry, apply foam dressing, change every 3 days and PRN Re-consult wound care Nurse for wound deterioration or wound changes.
[2025-04-23 12:31] LABS: INTERNATIONAL NORM RATIO 2.3 (0.9-1.1); Prothrombin Time 27.8 SEC (11.2-13.5)
--- NOTE | 2025-04-23 12:39 | MHC.CLN ---
F/U PO INTAKE REMAINS 25% CONSISTENTLY DIET RX: 2GM NA ENSURE TID IN PLACE TO PROMOTE WOUND HEALING SUPPLEMENT PROVIDES 1050KCALS, 60G PROTEIN WITH 100% ACCEPTANCE MONITOR PO INTAKE AND ENCOURAGE SUPPLEMENTS
--- NOTE | 2025-04-23 14:16 | MHC.CM.PN ---
Addendum entered by Janet Hopper 04/23/25 16:38: STR BED OFFERS REVIEWED WITH PATIENTS ANÍBAL BOSTON, HE ACCEPTS A BED AT [facility]. PATIENT WILL DISCHARGE THERE TOMORROW. Addendum entered by Janet Hopper 04/23/25 14:54: THIS CM MET WITH PATIENT TO REVIEW OTHER STR OPTIONS WITH HER, LIST OF SNF'S GIVEN TO PATIENT, REFERRAL EXPANDED IN [facility], AWAITING A STR BED OFFER. Original Note: EMR REVIEWED AND PER MD ROUNDS, PATIENT IS MEDICALLY CLEARED FOR DISCHARGE PENDING REHAB PLACEMENT, REFERRAL UPDATED IN [facility], AWAITING BED OFFER.
[2025-04-23 15:11] VITALS: BP 123/78; PULSE 107; RESP 18; TEMP 36; O2SAT 94
[2025-04-23 20:00] VITALS: BP 110/67; PULSE 103; RESP 20; TEMP 36.8; O2SAT 93
[2025-04-24] VITALS (7 sets, daily range): BP systolic 108–133; BP diastolic 57–77; PULSE 76–101; RESP 18–24; TEMP 36.1–37.1; O2SAT 95–98
[2025-04-24] MEDS: guaiFEN/Codeine SF 200/20/10ML 10 ML LIQUID 5 ML PO (03:28)
[2025-04-24] MEDS: 0.9 % Sodium Chloride Flush 3 ML SYRINGE IVFLUSH ×3 (09:18→22:01)
[2025-04-24 09:21] LABS: MANUAL DIFF FLAG NO
[2025-04-24] MEDS: Ammonium Lactate 12 % Lotion 226 GM BOTTLE 1 APPL TOPICAL ×2 (09:21→22:01)
[2025-04-24 09:25] LABS: Hematocrit 36.8 % (37.0-47.0); Hemoglobin 11.8 g/dl (12.0-16.0); Imm Gran Abs Auto 0.02 X10*3/uL (0.00-0.03); Imm Gran Pct Auto 0.6 % (0.0-0.4); Lymphocytes Absolute Auto 0.4 X10*3/uL (1.2-4.9); Mean Corpuscular HGB Conc 32.1 g/dl (31.0-35.0); Mean Corpuscular Hemoglobin 28.3 pg (27.0-33.0); Mean Corpuscular Volume 88.2 fL (80.0-98.0); NRBC Abs Auto 0.000 X10*3/uL (0.0-0.012); NRBC Pct Auto 0.0 /100WBC (0.0-0.2); Red Blood Count 4.17 X10*6/uL (4.20-5.50); White Blood Count 3.5 X10*3/uL (4.8-10.8)
[2025-04-24 09:26] LABS: Platelet Count 83 X10*3/uL (160-400)
[2025-04-24 09:41] LABS: INTERNATIONAL NORM RATIO 2.7 (0.9-1.1); Prothrombin Time 32.3 SEC (11.2-13.5)
[2025-04-24 09:43] LABS: Alanine Aminotransferase 49 U/L (0-31); Albumin Level 2.9 g/dL (3.5-5.0); Alkaline Phosphatase 146 U/L (39-117); Anion Gap 14 (12-20); Aspartate Amino Transferase 94 U/L (5-31); Blood Urea Nitrogen 45 mg/dL (9-16); Calcium 9.0 mg/dL (8.4-10.2); Carbon Dioxide 31 mmol/L (22-29); Chloride 104 mmol/L (96-108); Creatinine Clr Calc Pharmacy 33.2; Estimated Glomerular Filt Rate 49; Magnesium 2.2 mg/dL (1.6-2.6); Potassium 4.0 mmol/L (3.3-5.1); Sodium 145 mmol/L (135-145); Total Protein 5.5 g/dL (6.5-8.0)
--- NOTE | 2025-04-24 10:57 | PC.NURSE ---
attempted to ween pt off supplemental 02 pt sating 87%. pt now sating 96% on 2L NC.
--- NOTE | 2025-04-24 14:29 | MHC.CM.PN ---
Addendum entered by Ninoska Bailey 04/25/25 12:32: [facility] READY TO ACCEPT PT TODAY PT AND INFORMED AT BEDSIDE AND [facility], DARVIN CONTACTED T/C [phone] BLS TRANSPORT BOOKED FOR 1500 HOURS Original Note: PLAN HAS BEEN TO DC PT TO STR TODAY AT [facility], HOWEVER SNF NOW STATING THEY WOULD PREFER TO TAKE PT TOMORROW ONCE SHE HAS BEEN ON TAMIFLU FOR 4 DAYS. PT WILL DC TO [facility] FOR STR TOMORROW VIA [facility]
--- NOTE | 2025-04-24 14:59 | HO.PM.IMPN ---
Subjective Subjective Date of Service: 04/24/25 Interval History: Reports difficulty moving left foot Cough better overnight No significant SOB Continued hip and back discomfort INR continues to be elevated 2.7 Review of Systems Review of Systems: Yes all other systems are reviewed and are negative Physical Exam Exam: Exam: General: AOx3, frail and chronically weak appearing Resp: Bilateral coarse breath sounds. Still on supplemental O2 CVS: Irregularly irregular rhythm GI: NT, soft, no distention Back: Thoracic kyphosis Skin: See wound care note for decubitus ulcers on heels and sacral area Neuro: Cranial nerves II-XII grossly intact bilaterally. Motor grossly intact bilaterally. Global though symmetric weakness throughout Extremities: No edema. Bilateral legs with chronic venous stasis dermatitis changes. Left foot with limited ROM. Psych: Appropriate affect Vital Signs: Vital Signs: Last Vital Signs Temp 96.9 F 04/24/25 11:44 Pulse 98 04/24/25 11:44 Resp 18 04/24/25 11:44 BP 109/61 04/24/25 11:44 Pulse Ox 95 04/24/25 11:44 O2 Del Method Nasal Cannula 04/24/25 11:44 O2 Flow Rate 2 04/24/25 11:44 BMI result Body Mass Index 22.7 Objective Data Active Medications Acetaminophen (Acetaminophen 325 Mg Tablet) 650 mg PO Q6H PRN PRN Reason: Pain, Mild 1-3,fever,headache Last Admin: 04/21/25 05:28 Dose: 650 mg Documented By: ARJUN Albuterol Sulfate (Albuterol Sulfate 90 Mcg 8 Gm Inhaler) 2 puff INHALE Q4H PRN PRN Reason: shortness of breath or wheezing Albuterol/Ipratropium (Albuterol/Iprat 2.5/0.5mg 3 Ml Ampul.Neb) 3 ml INHALE RQ4H WHILE AWAKE PRN PRN Reason: Shortness of Breath/Wheezing Amiodarone HCl (Amiodarone Hcl 200 Mg Tablet) 200 mg PO DAILY [facility] Last Admin: 04/24/25 09:19 Dose: 200 mg Documented By: NICKIE Apixaban (Apixaban 2.5 Mg Tablet) 2.5 mg PO BID [facility] Atorvastatin Calcium (Atorvastatin Calcium 80 Mg Tablet) 80 mg PO DAILY [facility] On Hold: 04/22/25 12:12 Last Admin: 04/22/25 09:08 Dose: 80 mg Documented By: TALIA Benzonatate (Benzonatate 100 Mg Capsule) 100 mg PO TID PRN PRN Reason: Cough Last Admin: 04/23/25 16:32 Dose: 100 mg Documented By: TALIA Calcium Carbonate (Calcium Carbonate 750 Mg Tab.Chew) 750 mg PO Q4H PRN PRN Reason: Heartburn Cefuroxime Axetil (Cefuroxime Axetil 250 Mg Tablet) 250 mg PO Q12H [facility] Stop: 04/25/25 21:01 Last Admin: 04/24/25 09:19 Dose: 250 mg Documented By: NICKIE Furosemide (Furosemide 40 Mg Tablet) 40 mg PO BID [facility]; Protocol Last Admin: 04/24/25 09:19 Dose: 40 mg Documented By: NICKIE Guaifenesin/Codeine Phosphate (Guaifen/Codeine Sf 200/20/10ml 10 Ml Liquid) 5 ml PO Q6H PRN PRN Reason: Cough Last Admin: 04/24/25 03:28 Dose: 5 ml Documented By: ELICEO Lactic Acid (Ammonium Lactate 12 % Lotion 226 Gm Bottle) 1 appl TOPICAL BID [facility]; Protocol Last Admin: 04/24/25 09:21 Dose: 1 appl Documented By: NICKIE Magnesium Hydroxide (Milk Of Magnesia 30 Ml Oral.Susp) 30 ml PO DAILY PRN PRN Reason: Constipation Magnesium Oxide (Magnesium Oxide 400 Mg Tablet) 400 mg PO BIDPC [facility] Last Admin: 04/24/25 09:19 Dose: 400 mg Documented By: NICKIE Melatonin (Melatonin 3 Mg Tablet) 6 mg PO BEDTIME PRN PRN Reason: Insomnia Metoprolol Tartrate (Metoprolol Tartrate 5 Mg/5 Ml Vial) 5 mg IVPUSH Q6H PRN; Protocol PRN Reason: Heart Rate >100 Last Admin: 04/20/25 21:03 Dose: 5 mg Documented By: ARJUN Nystatin (Nystatin Powder 15 Gm Bottle) 1 appl TOPICAL BID [facility]; Protocol Last Admin: 04/24/25 09:20 Dose: 1 appl Documented By: NICKIE Omeprazole (Omeprazole 20 Mg Capsule.) 20 mg PO BID@0630,1630 [facility] Last Admin: 04/24/25 06:27 Dose: 20 mg Documented By: ELICEO Oseltamivir Phosphate (Oseltamivir Phosphate 30 Mg Capsule) 30 mg PO Q12H [facility] Stop: 04/26/25 21:01 Last Admin: 04/24/25 09:20 Dose: 30 mg Documented By: NICKIE Oxycodone HCl (Oxycodone Hcl Immed Release 5 Mg Tablet) 5 mg PO Q6H PRN PRN Reason: Pain, Severe (Pain Scale 7-10) Last Admin: 04/20/25 13:12 Dose: 5 mg Documented By: AMBROSIO Sodium Chloride (0.9 % Sodium Chloride Flush 3 Ml Syringe) 3 ml IVFLUSH QSHIFT [facility] Last Admin: 04/24/25 09:18 Dose: 3 ml Documented By: NICKIE Spironolactone (Spironolactone 25 Mg Tablet) 12.5 mg PO DAILY [facility]; Protocol On Hold: 04/16/25 12:09 Last Admin: 04/16/25 09:45 Dose: Not Given Documented By: KEVIN Non-Admin Reason: BP 90/55 Thiamine HCl (Thiamine Hcl 100 Mg Tablet) 100 mg PO DAILY [facility] Last Admin: 04/24/25 09:19 Dose: 100 mg Documented By: NICKIE Tramadol HCl (Tramadol Hcl 50 Mg Tablet) 50 mg PO Q6H PRN PRN Reason: Pain, Moderate(Pain Scale 4-6) Last Admin: 04/17/25 22:11 Dose: 50 mg Documented By: HAWK Labs 04/24/25 09:14 04/24/25 09:14 Labs: Laboratory Results - last 24 hr 04/24/25 09:14 MCV 88.2 MCH 28.3 MCHC 32.1 RDW 16.3 H Plt Count 83 L MPV 11.2 Immature Gran % (Auto) 0.6 H Neut % (Auto) 83.3 H Lymph % (Auto) 10.7 L [place] % (Auto) 5.4 Eos % (Auto) 0.0 Baso % (Auto) 0.0 Lymph # (Auto) 0.4 L [place] # (Auto) 0.2 Eos # (Auto) 0.0 Baso # (Auto) 0.0 Abs Immat Gran (auto) 0.02 Absolute Neuts (auto) 3.0 Absolute Nucleated RBC 0.000 Nucleated RBC % (auto) 0.0 PT 32.3 H INR 2.7 H Anion Gap 14 Estim Creat Clear Calc 33.2 Estimated GFR 49 Random Glucose 111 Calcium 9.0 Magnesium 2.2 Total Bilirubin 0.5 AST 94 H ALT 49 H Alkaline Phosphatase 146 H Total Protein 5.5 L Albumin 2.9 L Assessment and Plan (1) Pyelonephritis: Status: Acute Plan 84-year-old lady with PMH of pertinent for CKD, nephrolithiasis with right ureteral stent placed 1.5 years ago, hypertension, hyperlipidemia, GORDON on CPAP, pulmonary hypertension, HFrEF (EF 20%), paroxysmal AFib, porcine mitral valve replacement, AICD status post pacemaker on Coumadin is admitted to the hospital from the Coumadin clinic due to supratherapeutic INR (10.2). Pt noted fall with findings of T10 fx, acute pyelo, sigmoid diverticultis, lung nodule and thyroid nodules on imaging. Acute pyelonephritis with retained, calcified right ureteral stent placed 1.5 years ago - likely source of recurrent UTIs - received ceftriaxone x8 days; will switch to cefuroxime 250 mg b.i.d. x2 days, set to end on 04/25 - urology consulted, initially planned on stent removal on 04/22 but was canceled after pt with SOB and flu+; will need to be arrange outpatient once pt is more stable - cardiology consulted for anesthesia risk stratification: Overall stable many chronic cardiac issues. Intermediate to high risk, but not modifiable Acute hypoxic respiratory failure in the setting of acute influenza A infection - tested positive on 04/22; surgery canceled - has been requiring 2 L NC to maintain 92% - Tamiflu initiated on 04/22 with two doses; 30mg bid x4 days - monitor respiratory status - titrate supplemental O2>92, wean as tolerated elevated troponins - mildly elevated and flat at 27.3 with repeat 31.3 - pt was sharp and stabbing chest pain on 04/19 - monitor on telemetry question of sigmoid diverticulitis - as seen on CT - pt initially reported some LLQ pain and bowel irregularity - Initially treated with ceftriaxone and flagyl; flagyl stopped - currently tolerating full diet, abd pain resolved, diverticulitis unlikely Moderate protein calorie malnutrition - dietary consult placed - protein supplementation ARIADNA on CKD, resolved - treated IVF - avoid nephrotoxins - monitor cr acute hyperkalemia, prolonged QTC, resolved - mild hyperkalemia, resolved with IVF - recheck BMP now - repeat EKG when lytes normalized Generalized weakness, deconditioning - pt frail and needs assistance with transfers and ambulation - complains of left foot drop which PT notes has been chronic since evaluation started - PT recommends STR for strength and conditioning T10 fracture on CT - likely secondary to fall at home in bathroom 2 weeks prior; pt hit back on toilet, did not seek medical evaluation at that time - ED provider spoke with [facility] neurosurgery who suggested fx appears stable, no need for transfer - pain management - outpatient evaluation - PT consulted, recommend STR Chronic sacral and heel decubitus ulcers - see wound care notes for pictures and additonal care instructions - airloss mattress; pt has been refusing positioning - Right heel: Elevate heels off of bed surface with pillows. Float heels off of pillows. Apply skin prep allow to dry. Apply heel foam dressings, peel back and assess Q shift and change every 5-7 days and PRN - Coccyx: Off Load Pressure with Q2 hr turns and use of pillows - Cleanse with PH balance spray or wipes, pat dry. ?Apply thin layer of Triad to wound bed. Do not remove all of paste between applications as this may cause further skin damage.? Cover with foam dressing to aid in off loading and protection from friction. Change every other day and PRN. - Left lateral heel: cleanse with normal saline, apply skin prep palmer wound, apply durafiber ag, to wound bed, cover with heel foams, change every other day and PRN - elevate heels off surface of bed with pillows - Bilateral Lower Legs - Routine Cleansing. Apply Ammonium Lactate cream per provider orders. lung nodule on CT - repeat chest CT in 3 mo outpt thyroid nodules on CT - f/u output for thyroid US paroxysmal a fib with supratherapeutic INR - amiodarone and metoprolol, hold metoprolol if SBP <90 - INR initially 10.5, currenlty 2.7 - will switch to Eliquis 2.5mg bid; unable to initiate until INR <2.0 GORDON - Cannot tolerate CPAP with mask - supplemental O2 NC at bedtime HFrEF, no acute exacerbation - BNP around baseline, no evidence of fluid overload - continue spironolactone - limit IVF - monitor for fluid overload HTN - hold amlodipine, lisinopril, carvidelol due to soft BP HLD - continue statin due to ARIADNA Breast mass - noted on physical exam -mammogram outpatient settings DNI VTE prophy: Warfarin Pt requires continued hospitalization as she now is awaiting safe disposition to short-term rehab. Pt was initially scheduled to be discharged to rehab today, however infectious disease nurse would like pt to be on day 4 of Tamiflu before accepting her. Quality Stroke Does the patient have a stroke diagnosis?: No VTE Prior VTE?: No VTE Risk Level:: Medical - moderate - high VTE Device Contraindication: N/A - Device Ordered VTE Drug Contraindication: Treatment Not Indicated
[2025-04-25 00:17] VITALS: BP 104/62; PULSE 85; RESP 20; TEMP 36.2; O2SAT 99
[2025-04-25 04:00] VITALS: BP 105/56; PULSE 78; RESP 20; TEMP 36.4; O2SAT 96
[2025-04-25 07:18] LABS: MANUAL DIFF FLAG NO
[2025-04-25 07:21] LABS: Hematocrit 34.0 % (37.0-47.0); Hemoglobin 10.9 g/dl (12.0-16.0); Imm Gran Abs Auto 0.02 X10*3/uL (0.00-0.03); Imm Gran Pct Auto 0.6 % (0.0-0.4); Lymphocytes Absolute Auto 0.4 X10*3/uL (1.2-4.9); Mean Corpuscular HGB Conc 32.1 g/dl (31.0-35.0); Mean Corpuscular Hemoglobin 28.5 pg (27.0-33.0); Mean Corpuscular Volume 89.0 fL (80.0-98.0); NRBC Abs Auto 0.000 X10*3/uL (0.0-0.012); NRBC Pct Auto 0.0 /100WBC (0.0-0.2); Red Blood Count 3.82 X10*6/uL (4.20-5.50); White Blood Count 3.1 X10*3/uL (4.8-10.8)
[2025-04-25 07:25] LABS: Platelet Count 74 X10*3/uL (160-400)
[2025-04-25 07:27] LABS: INTERNATIONAL NORM RATIO 3.3 (0.9-1.1); Prothrombin Time 38.8 SEC (11.2-13.5)
[2025-04-25 07:35] LABS: Alanine Aminotransferase 39 U/L (0-31); Albumin Level 2.8 g/dL (3.5-5.0); Alkaline Phosphatase 145 U/L (39-117); Anion Gap 12 (12-20); Aspartate Amino Transferase 65 U/L (5-31); Blood Urea Nitrogen 43 mg/dL (9-16); Calcium 8.7 mg/dL (8.4-10.2); Carbon Dioxide 34 mmol/L (22-29); Chloride 101 mmol/L (96-108); Creatinine Clr Calc Pharmacy 32.9; Estimated Glomerular Filt Rate 48; Magnesium 2.2 mg/dL (1.6-2.6); Potassium 3.6 mmol/L (3.3-5.1); Sodium 143 mmol/L (135-145); Total Protein 5.1 g/dL (6.5-8.0)
[2025-04-25 07:52] VITALS: BP 106/57; PULSE 91; RESP 20; TEMP 35.8; O2SAT 98
[2025-04-25] MEDS: Ammonium Lactate 12 % Lotion 226 GM BOTTLE 1 APPL TOPICAL (07:57)
[2025-04-25 11:59] VITALS: BP 122/65; PULSE 96; RESP 18; TEMP 36; O2SAT 96
--- NOTE | 2025-04-25 12:06 | PM.DS ---
DS: Providers Provider Date of Service: 04/25/25 Date of admission: 04/15/25 19:48 Date of discharge: 04/25/25 Primary care physician: Kiesha Macedo MD Consults: 04/15/25 21:48 Consult to Urology Routine Consulting Provider: [facility] Reason for consultation: ureteral stent, pyelo 04/16/25 01:17 Consult to Wound Care Routine Consulting Provider: [facility] Reason for consultation: stage 2 coccyx 04/16/25 08:11 Consult to Nephrology Routine Consulting Provider: [facility] Reason for consultation: ARIADNA on CKD 04/16/25 08:20 Consult to Gastroenterology Routine Consulting Provider: Tae Finn Reason for consultation: diverticulosis 04/19/25 11:09 Consult to Cardiology Routine Consulting Provider: [facility] Reason for consultation: Pre-op cardiology clearance DS: Diagnosis Discharge Diagnosis (1) Pyelonephritis: Status: Acute DS: Summary Hospital Course Hospital Course: From admission HPI: Date of Service: 04/15/25 Attending physician on admission: Vipul Vega Chief Complaint: supratherapeutic INR Patient is an 84-year-old female with a past medical history significant for paroxysmal AFib on Coumadin, history of porcine mitral valve replacement, AICD/pacemaker, GORDON on CPAP, HFrEF (last EF 20%), CKD, nephrolithiasis with right ureteral stent placed 1.5 years ago, hypertension, HLD, pulmonary hypertension, who presented to the ED due to a supratherapeutic [facility]. INR here is 10.2. The patient reports 1 episode of hematuria this morning, does have right ureteral stent placed 1.5 years ago. She reports that she has been trying to get the stent removed 4 months however keeps having different medical issues postponing the stent removal. She is unsure who her urologist is. Most recently she had an AICD/pacemaker placed at [facility] which was to be done prior to her stent removal. She also reports left lower quadrant discomfort, mostly in the groin region. Has had issues with alternating constipation and diarrhea. No fever, chills, nausea or vomiting. She reports mild shortness of breath for the past 1-2 weeks, no cough or URI symptoms. Hosptial course: Pt is an 84-year-old chronically ill and frail pt with a complex medical hx and had a long and complicated hospital stay. She was initially admitted to the hospital for multiple issues including acute pyelonephritis from retained stent for over 1.5 years, supratherapeutic INR greater than 10, ARIADNA, hyperkalemia, new T10 fracture from fall at home, and initial concerns for sigmoid diverticulitis. Pt was treated with IVF, IV antibiotics, vitamin K, and had electrolytes corrected. Pt had 1/2 blood cultures test positive for Streptococcus viridans, which is an unlikely pathogen and likely contaminated. Pt was initially scheduled for inpatients surgical stent removal in the OR by Urology, but surgery was 1st postponed by 2 days due to persistently elevated INR and then only canceled once pt became hypoxic and tested positive for influenza type a. Pt's warfarin was stopped due to difficulties managing INR and she was set to be transitioned to Eliquis 2.5 mg b.i.d. once her INR was <2.0; however, patient's INR has continued to remain elevated between 2.3-3.3. Pt was seen and evaluated by Physical therapy who recommended discharge to short-term rehab where her length of stay is expected to be less than 30 days. Currently pt will require 1 more dose of cefuroxime 250 mg on the evening of 1122, as well as 3 more doses of Tamiflu 30 mg b.i.d. starting on the evening of 04/25 and ending the evening of 04/26. Patient's transition to Eliquis continues to be on hold until her INR is <2.0. She should have repeat labs drawn while at [facility] to monitor INR. Pt also needs to follow up with Urology outpatient to arrange for elective stent removal when she is more stable. For T10 thoracic vertebral compression fracture, pt should seek outpatient evaluation with orthopedic academic specialist. Additional details concerning hospital stay as indicated below. Acute pyelonephritis with retained, calcified right ureteral stent placed 1.5 years ago - likely source of recurrent UTIs - received ceftriaxone x8 days; will switch to cefuroxime 250 mg b.i.d. x2 days, set to end on 04/25 - urology consulted, initially planned on stent removal on 04/22 but was canceled after pt with SOB and flu+; will need to be arrange outpatient once pt is more stable - cardiology consulted for anesthesia risk stratification: Overall stable many chronic cardiac issues. Intermediate to high risk, but not modifiable Acute hypoxic respiratory failure in the setting of acute influenza A infection - tested positive on 04/22; surgery canceled - has been requiring 2 L NC to maintain 92% - Tamiflu initiated on 04/22 with two doses; 30mg bid x4 days, set to end on 04/26 - titrate supplemental O2>92, wean as tolerated Transaminitis - likely secondary to ceftriaxone - trending down after switching to p.o. cefuroxime - follow up labs at STR next week to ensure resolution elevated troponins - mildly elevated and flat at 27.3 with repeat 31.3 question of sigmoid diverticulitis - as seen on CT - pt initially reported some LLQ pain and bowel irregularity - Initially treated with ceftriaxone and flagyl; flagyl stopped - has been tolerating full diet, abd pain resolved, diverticulitis unlikely Moderate protein calorie malnutrition - protein supplementation per nutrition ARIADNA on CKD, resolved - treated IVF - avoid nephrotoxins acute hyperkalemia, prolonged QTC, resolved - mild hyperkalemia, resolved with IVF - repeat EKG with QTc WNL Generalized weakness, deconditioning - pt frail and needs assistance with transfers and ambulation - complains of left foot drop which PT notes has been chronic since evaluation started - PT recommends STR for strength and conditioning T10 fracture on CT - likely secondary to fall at home in bathroom 2 weeks prior; pt hit back on toilet, did not seek medical evaluation at that time - ED provider spoke with [facility] neurosurgery who suggested fx appears stable, no need for transfer - pain management - outpatient evaluation - PT consulted, recommend STR Chronic sacral and heel decubitus ulcers - see wound care notes for pictures and additonal care instructions - airloss mattress; pt has been refusing positioning - Right heel: Elevate heels off of bed surface with pillows. Float heels off of pillows. Apply skin prep allow to dry. Apply heel foam dressings, peel back and assess Q shift and change every 5-7 days and PRN - Coccyx: Off Load Pressure with Q2 hr turns and use of pillows - Cleanse with PH balance spray or wipes, pat dry. ?Apply thin layer of Triad to wound bed. Do not remove all of paste between applications as this may cause further skin damage.? Cover with foam dressing to aid in off loading and protection from friction. Change every other day and PRN. - Left lateral heel: cleanse with normal saline, apply skin prep palmer wound, apply durafiber ag, to wound bed, cover with heel foams, change every other day and PRN - elevate heels off surface of bed with pillows - Bilateral Lower Legs - Routine Cleansing. Apply Ammonium Lactate cream per provider orders. lung nodule on CT - repeat chest CT in 3 mo outpt thyroid nodules on CT - f/u output for thyroid US paroxysmal a fib with supratherapeutic INR - amiodarone and metoprolol, hold metoprolol if SBP <90 - INR initially 10.5, currenlty 3.3 - will switch to Eliquis 2.5mg bid; unable to initiate until INR <2.0 GORDON - Cannot tolerate CPAP with mask - supplemental O2 NC at bedtime HFrEF, no acute exacerbation - BNP around baseline, no evidence of fluid overload - continue spironolactone - limit IVF - monitor for fluid overload HTN - hold amlodipine, lisinopril, carvidelol due to soft BP HLD - continue statin due to ARIADNA Breast mass - noted on physical exam - mammogram outpatient settings Time Attestation Discharge Coordination Time (in mins): 35 Quality: Safe Use of Opioids Does Pt have an Active Cancer Diagnosis on the Problem List?: No Quality: Stroke Does the patient have a stroke diagnosis?: No Physical Exam Vital Signs: Vital Signs: Last Vital Signs Temp 96.8 F 04/25/25 11:59 Pulse 96 04/25/25 11:59 Resp 18 04/25/25 11:59 BP 122/65 04/25/25 11:59 Pulse Ox 96 04/25/25 11:59 O2 Del Method Nasal Cannula 04/25/25 11:59 O2 Flow Rate 2 04/25/25 11:59 BMI result Body Mass Index 22.7 DS: Data Data Completed and Pending Completed studies during hospitalization [Text1]: Procedures Assistance with Respiratory Ventilation, Less than 24 Consecutive Hours, Continuous Positive Airway Pressure (10/07/22) Dilation of Right Ureter with Intraluminal Device, Via Natural or Artificial Opening Endoscopic (11/26/23) Fluoroscopy of Right Kidney, Ureter and Bladder (11/26/23) Labs on day of discharge: Laboratory Results - last 24 hr 04/25/25 07:10 WBC 3.1 L RBC 3.82 L Hgb 10.9 L Hct 34.0 L MCV 89.0 MCH 28.5 MCHC 32.1 RDW 16.0 Plt Count 74 L MPV 11.5 Immature Gran % (Auto) 0.6 H Neut % (Auto) 82.1 H Lymph % (Auto) 11.2 L Barbour % (Auto) 5.8 Eos % (Auto) 0.3 Baso % (Auto) 0.0 Lymph # (Auto) 0.4 L Barbour # (Auto) 0.2 Eos # (Auto) 0.0 Baso # (Auto) 0.0 Abs Immat Gran (auto) 0.02 Absolute Neuts (auto) 2.6 Absolute Nucleated RBC 0.000 Nucleated RBC % (auto) 0.0 PT 38.8 H D INR 3.3 H Sodium 143 Potassium 3.6 Chloride 101 Carbon Dioxide 34 H Anion Gap 12 BUN 43 H Creatinine 1.09 Estim Creat Clear Calc 32.9 Estimated GFR 48 Random Glucose 133 H Calcium 8.7 Magnesium 2.2 Total Bilirubin 0.6 AST 65 H ALT 39 H Alkaline Phosphatase 145 H Total Protein 5.1 L Albumin 2.8 L Discharge Plan Discharge Anticipated Discharge Date/Time: 04/25/25 11:43 Patient Disposition: [facility] Discharge Diagnosis: Pyelonephritis secondary to retained ureteral stent Referrals: [facility]Provider Group] - 1 Week [facility] [Outside] - 1 Week Kiesha Macedo MD [Primary Care Provider, Internal Medicine] - 1 Week Discharge Medications: New benzonatate 100 mg Capsule 100 mg PO TID PRN (Reason: Cough) Qty: 30 0RF codeine-guaifenesin 10-100 mg/5 mL Liquid 5 ml PO Q6H PRN (Reason: Cough) Qty: 120 0RF cefuroxime axetil 250 mg tablet 250 mg PO BID Qty: 3 0RF Rx Instructions: Take 1 tablet with food twice a day for the next day, beginning on the evening of 04/24 and any the evening of 04/25. oseltamivir [Tamiflu] 30 mg capsule 30 mg PO BID Qty: 5 0RF Rx Instructions: Take 1 capsule twice a day for the next 2 days, began in the evening of 04/24 in ending the evening of 04/26. oxycodone 5 mg tablet 5 mg PO Q8H PRN (Reason: pain, severe) Qty: 10 0RF Rx Instructions: Partial Fill upon patient request. Take 1 tablet up to 3 times a day for severe pain Eliquis 2.5 mg tablet 2.5 mg PO BID Qty: 60 0RF Rx Instructions: Take one tablet twice a day. Only begin once INR in <2.0 ammonium lactate 12 % lotion 1 appl topical BID Qty: 225 0RF Rx Instructions: Apply twice daily to lower legs Continued albuterol sulfate 90 mcg/actuation HFA aerosol inhaler 2 puff inhalation Q4-6H PRN (Reason: shortness of breath or wheezing) Qty: 8.5 3RF lisinopril 5 mg tablet 5 mg PO BID Qty: 90 2RF atorvastatin 80 mg tablet 80 mg PO DAILY Qty: 90 3RF omeprazole 20 mg capsule,delayed release(DR/EC) 20 mg PO BID@0630,1630 carvedilol 12.5 mg tablet 12.5 mg PO BID amlodipine 5 mg tablet 5 mg PO DAILY umeclidinium-vilanterol [Anoro Ellipta] 62.5-25 mcg/actuation Blister With Device 1 inh INHALATION DAILY furosemide [Lasix] 40 mg tablet 40 mg PO BID cholecalciferol (vitamin D3) [Vitamin D3] 10 mcg (400 unit) Tablet 10 mcg PO DAILY potassium chloride 20 mEq Tablet Extended Release 20 meq PO DAILY ascorbate calcium (vitamin C) 500 mg tablet 500 mg PO DAILY zinc gluconate 50 mg tablet 50 mg PO DAILY [id number]-Xu-rrrc-minerals Tablet 1 tab PO DAILY thiamine HCl (vitamin B1) 100 mg capsule 100 mg PO DAILY acetaminophen 325 mg capsule 650 mg PO Q8H PRN (Reason: Pain) amiodarone 200 mg tablet 200 mg PO DAILY metoprolol succinate 50 mg tablet extended release 24 hr 50 mg PO DAILY Qty: 90 2RF spironolactone 25 mg tablet 12.5 mg PO DAILY Qty: 90 2RF Protocol: Hold for SBP< HOLD for SBP < : 90 Discontinued warfarin 2.5 mg tablet 1.25 mg PO MOWEFRSA@1800 warfarin 2.5 mg tablet 2.5 mg PO SUTUTH@1800 Protocol: Dose Management Condition: Saturday Dose/Route: 2.5 mg Instruction: 1 x 2.5 mg tablet Condition: Saturday Dose/Route: 1.25 mg Instruction: 0.5 x 2.5 mg tablets Condition: Saturday Dose/Route: 2.5 mg Instruction: 1 x 2.5 mg tablet Condition: Saturday Dose/Route: 1.25 mg Instruction: 0.5 x 2.5 mg tablets Condition: Dose/Route: 2.5 mg Instruction: 1 x 2.5 mg tablet Condition: Saturday Dose/Route: 0 mg Instruction: 0 tablets Condition: Saturday Dose/Route: 0 mg Instruction: 0 tablets Protocol Text: Adjustment Start Date: 04/15/25 INR Value: 8.0 INR Date: 04/15/25 Recheck Date: 04/16/25 Discharge Orders: Discharge Order (Routine); Ordered 04/25/25 Ordered By: Blas Ramirez Activity on Discharge: As tolerated Stand Alone Forms: Patient Portal Discharge page Print Language: Thai Activity Restrictions/Additional Instructions: Topical Wound Care Recommendations: Abdominal fold: assess all skin folds daily. routine gentle cleansing of skin folds, avoid scrubbing, pat area dry. wear lightweight, loose fitting clothing to promote air circulation. avoid placing products in skin folds that hold moisture against the skin. apply antifungal medication per provider orders, use only a light dusting to prevent caking. insert interdry ag into skin folds leaving 2-3 exposed to promote moisture wicking and evaporation. Right heel: Elevate heels off of bed surface with pillows. Float heels off of pillows. Apply skin prep allow to dry. Apply heel foam dressings, peel back and assess Q shift and change every 5-7 days and PRN. Coccyx: Off Load Pressure with Q2 hr turns and use of pillows - Cleanse with PH balance spray or wipes, pat dry. ?Apply thin layer of Triad to wound bed. Do not remove all of paste between applications as this may cause further skin damage.? Cover with foam dressing to aid in off loading and protection from friction. Change every other day and PRN. Left lateral heel: cleanse with normal saline, apply skin prep palmer wound, apply durafiber ag, to wound bed, cover with heel foams, change every other day and PRN - elevate heels off surface of bed with pillows Recommend follow up out patient Wound Clinic at [address] [place] [id number] and to call for an appointment at time of discharge. [phone].? Care Plan Goals: See below Health Concerns: Pyelonephritis Retained ureteral stent Supratherapeutic INR ARIADNA Sigmoid diverticulitis Acute hypoxic respiratory failure Influenza a infection Hyperkalemia Vertebral compression fracture Generalized weakness and deconditioning Plan of Treatment: You were admitted to the hospital for multiple issues, including acute pyelonephritis from retained stent for the past 1.5 years, supratherapeutic INR greater than 10, and ARIADNA. You were treated with IV antibiotics for the pyelonephritis and were set to undergo stent removal by Urology in the OR. Your INR continued to remain elevated despite receiving vitamin K and fresh frozen plasma, and stent removal was initially postponed. Surgery was then canceled after you became hypoxic and tested positive for influenza type a. -- take cefuroxime 250 mg x1 more dose this evening to complete a 10 day antibiotic treatment for pyelonephritis. -- take 3 more doses of Tamiflu 30 mg b.i.d., started in the evening of 04.25 and ending the evening of 04/26. -- you will need to follow up with Urology outpatient to arrange for elective stent removal at some point when you are stable. -- your warfarin has been stopped due to persistently elevated INR. He will be switched to Eliquis 2.5 mg b.i.d.; however, you should not start taking this medication until your INR is <2.0 and you were currently at 3.3. -- for back and hip pain, you we will be discharged to [facility] for strength and conditioning. For T10 thoracic vertebral compression fracture, seek outpatient evaluation with ortho/spine. -- for chronic wound care, see wound care instructions above. Assessment: See discharge summary.
== END 2025-04-25 15:55 | disposition skilled nursing facility (03) | DRG 698 ==
LOC: HO.ED 18:40 → HO.EDOVER 19:54 → HO.S3 23:49 → HO.IMC 04-16 11:23
PROVIDERS: Emergency Medicine; Physician Assistant; Student in an Organized Health Care Education/Training Program; Admitting Provider Internal Medicine; Emergency Provider Emergency Medicine Emergency Medical Services; PCP Internal Medicine; Visit Provider Student in an Organized Health Care Education/Training Program
DX: T83.593A Infection and inflammatory reaction due to other urinary stents, initial encounter (principal); J96.01 Acute respiratory failure with hypoxia; E44.0 Moderate protein-calorie malnutrition; S22.079A Unspecified fracture of T9-T10 vertebra, initial encounter for closed fracture; I13.0 Hypertensive heart and chronic kidney disease with heart failure and stage 1 through stage 4 chronic kidney disease, or unspecified chronic kidney disease; I50.22 Chronic systolic (congestive) heart failure; N17.9 Acute kidney failure, unspecified; E87.0 Hyperosmolality and hypernatremia; K57.32 Diverticulitis of large intestine without perforation or abscess without bleeding; N10 Acute pyelonephritis; E78.5 Hyperlipidemia, unspecified; Z66 Do not resuscitate; E87.5 Hyperkalemia; N20.0 Calculus of kidney; R31.9 Hematuria, unspecified; R94.31 Abnormal electrocardiogram [ECG] [EKG]; R91.1 Solitary pulmonary nodule; L89.152 Pressure ulcer of sacral region, stage 2; I48.0 Paroxysmal atrial fibrillation; G47.33 Obstructive sleep apnea (adult) (pediatric); J10.1 Influenza due to other identified influenza virus with other respiratory manifestations; W19.XXXA Unspecified fall, initial encounter; I27.20 Pulmonary hypertension, unspecified; Y92.002 Bathroom of unspecified non-institutional (private) residence as the place of occurrence of the external cause; E04.1 Nontoxic single thyroid nodule; R79.1 Abnormal coagulation profile; N18.30 Chronic kidney disease, stage 3 unspecified; Z95.810 Presence of automatic (implantable) cardiac defibrillator; Z68.22 Body mass index [BMI] 22.0-22.9, adult; Z95.2 Presence of prosthetic heart valve; Z87.440 Personal history of urinary (tract) infections; Z79.899 Other long term (current) drug therapy
CPT/HCPCS: 36415; 70450; 71045; 71250; 72125; 74176; 80048; 80053; 80202; 81001; 81003; 82550; 83605; 83735; 83880; 84443; 84484; 85025; 85610; 85730; 86850; 86900; 86901; 87040; 87086; 87088; 87186; 87205; 87637; 93005; 93306; 97110; 97162; 99285; J0616; J0696; J1938; J3374; J7120; P9017

== ENCOUNTER → 2025-04-15 12:24 | Outpatient (BNV) | payer MEDICARE, BC, SELFPAY | PROVIDERS: Emergency Provider Emergency Medicine Emergency Medical Services; PCP Internal Medicine; Visit Provider Radiology Diagnostic Radiology | DX: N20.0 Calculus of kidney (principal); Z96.0 Presence of urogenital implants; S22.079A Unspecified fracture of T9-T10 vertebra, initial encounter for closed fracture; R91.1 Solitary pulmonary nodule; E04.1 Nontoxic single thyroid nodule; E04.2 Nontoxic multinodular goiter; Z04.3 Encounter for examination and observation following other accident | CPT/HCPCS: 70450; 71250; 72125; 74176 ==

== ENCOUNTER → 2025-04-15 15:38 | Outpatient (BNV) | payer MEDICARE, BC, SELFPAY | PROVIDERS: Admitting Provider Internal Medicine; Emergency Provider Emergency Medicine Emergency Medical Services; PCP Internal Medicine; Visit Provider Internal Medicine Cardiovascular Disease | DX: R94.31 Abnormal electrocardiogram [ECG] [EKG] (principal); Z95.0 Presence of cardiac pacemaker | CPT/HCPCS: 93010 ==

== ENCOUNTER 2025-04-15 19:48 | Outpatient (BNV) | payer MEDICARE, BC, SELFPAY | END 2025-04-22 09:35 | PROVIDERS: Admitting Provider Internal Medicine; Emergency Provider Emergency Medicine Emergency Medical Services; PCP Internal Medicine; Visit Provider Radiology Diagnostic Radiology | DX: R05.9 Cough, unspecified (principal) | CPT/HCPCS: 71045 ==

== ENCOUNTER 2025-04-15 19:48 | Outpatient (BNV) | payer MEDICARE, BC, SELFPAY | END 2025-04-19 08:58 | PROVIDERS: Admitting Provider Internal Medicine; Emergency Provider Emergency Medicine Emergency Medical Services; PCP Internal Medicine; Visit Provider Internal Medicine | DX: R94.31 Abnormal electrocardiogram [ECG] [EKG] (principal); Z95.0 Presence of cardiac pacemaker | CPT/HCPCS: 93010 ==

== ENCOUNTER 2025-04-15 19:48 | Outpatient (BNV) | payer MEDICARE, BC, SELFPAY | END 2025-04-17 07:00 | PROVIDERS: Admitting Provider Internal Medicine; Emergency Provider Emergency Medicine Emergency Medical Services; PCP Internal Medicine; Visit Provider Internal Medicine Cardiovascular Disease | DX: I51.7 Cardiomegaly (principal); I35.8 Other nonrheumatic aortic valve disorders; Z95.3 Presence of xenogenic heart valve | CPT/HCPCS: 93306 ==

== ENCOUNTER → 2025-04-15 19:48 | Outpatient (BNV) | payer MEDICARE, BC, SELFPAY | PROVIDERS: Admitting Provider Internal Medicine; Emergency Provider Emergency Medicine Emergency Medical Services; PCP Internal Medicine; Visit Provider Internal Medicine | DX: Z01.810 Encounter for preprocedural cardiovascular examination (principal); Z95.3 Presence of xenogenic heart valve; Z98.890 Other specified postprocedural states; I48.21 Permanent atrial fibrillation; I42.9 Cardiomyopathy, unspecified | CPT/HCPCS: 99223 ==

== ENCOUNTER → 2025-04-15 19:48 | Outpatient (BNV) | payer MEDICARE, BC, SELFPAY | PROVIDERS: Admitting Provider Internal Medicine; Emergency Provider Emergency Medicine Emergency Medical Services; PCP Internal Medicine; Visit Provider Physician Assistant | DX: R79.1 Abnormal coagulation profile (principal) | CPT/HCPCS: 99223; 99233 ==

== ENCOUNTER → 2025-04-15 19:48 | Outpatient (BNV) | payer MEDICARE, BC, SELFPAY | PROVIDERS: Admitting Provider Internal Medicine; Emergency Provider Emergency Medicine Emergency Medical Services; PCP Internal Medicine; Visit Provider Urology | DX: Z96.0 Presence of urogenital implants (principal); N39.0 Urinary tract infection, site not specified; R31.9 Hematuria, unspecified; R79.1 Abnormal coagulation profile | CPT/HCPCS: 99223 ==

== ENCOUNTER → 2025-04-15 19:48 | Outpatient (BNV) | payer MEDICARE, BC, SELFPAY | PROVIDERS: Admitting Provider Internal Medicine; Emergency Provider Emergency Medicine Emergency Medical Services; PCP Internal Medicine; Visit Provider Internal Medicine Critical Care Medicine | DX: E87.0 Hyperosmolality and hypernatremia (principal); N17.9 Acute kidney failure, unspecified; N18.9 Chronic kidney disease, unspecified | CPT/HCPCS: 99223 ==

== ENCOUNTER 2025-04-28 16:57 | Inpatient (IN) | payer MEDICARE, BC, SELFPAY ==
[2025-04-28] VITALS (13 sets, daily range): BP systolic 86–118; BP diastolic 43–72; PULSE 62–90; RESP 13–51; TEMP 36.6–37.1; O2SAT 90–98; BMI 27.2
--- NOTE | 2025-04-28 | ECG_ITS ---
Test Reason : OVERDOSE Blood Pressure : */* mmHG Vent. Rate : 84 BPM Atrial Rate : 84 BPM P-R Int : 32 ms QRS Dur : 150 ms QT Int : 484 ms P-R-T Axes : 246 54 218 degrees QTcB Int : 571 ms AV dual-paced rhythm Abnormal ECG When compared with ECG of 19-Apr-2025 08:58, Vent. rate has decreased by 14 bpm Referred By: Generic ED Physician Electronically Signed By: Bam Dickinson
--- NOTE | ~2025-04-28 | XR_ITS ---
CLINICAL HISTORY: dyapnoea, tachypnoea 1 view chest x-ray Comparison: CR - XR CHEST 1V - 04/28/25 17:28 EST Findings: There is pulmonary vascular congestion. There is airspace opacity within the bilateral mid and lower lungs. Relatively pronounced airspace opacity at the base of the right lung. There is a moderate right pleural effusion and a small left pleural effusion with possible interval increase. The heart is enlarged. There has been a prior sternotomy. An AICD is present. No acute fracture. IMPRESSION: 1. Pulmonary vascular congestion and edema, overall similar to the prior study. Right basilar atelectasis and/or infiltrate, also similar to the prior exam. 2. There are bilateral pleural effusions, right larger than left, with possible increase. This document has been electronically signed by: Mariela Porter MD on 04/29/2025 15:32:44
--- NOTE | ~2025-04-28 | XR_ITS ---
EXAMINATION: XR ABDOMEN KUB CLINICAL INDICATION: Abd pain, ?constipation COMPARISON: Radiographs of the abdomen on February 14, 2024. Images. Fluoroscopy guidance on May 03, 2025. TECHNIQUE: AP view of the abdomen. FINDINGS: Multiple EKG leads overlying the lower chest/upper abdomen. Partially visualized cardiac defibrillator leads. Redemonstration of a portion of the right ureteral stent that projects over the right sacrum. Surgical clips from prior cholecystectomy. Unremarkable bowel gas pattern. Small amount of stool load identified at the expected location of the descending and sigmoid colons. Previously seen air-filled cecum is not seen on the current examination. Bilateral femoral hardware are partially included. XR/XR KUB IMPRESSION: Small amount of stool load identified at expected location of the descending and sigmoid colons. Electronically signed by: Jeovany Roberts MD 05/05/2025 12:47 PM TOBI
--- NOTE | ~2025-04-28 | FL_ITS ---
EXAMINATION: FLUOROSCOPY GUIDANCE FOR NEEDLE PLACEMENT CLINICAL INFORMATION: stone right COMPARISON: Previous CT of the abdomen and pelvis April 05, 2025 TECHNIQUE: Fluoroscopy guidance was provided for right retrograde exam and attempted stent removal. FINDINGS: 2 submitted fluoroscopic images demonstrate portion of a right internal ureteral stent projecting over the right mid abdomen probably in the right renal pelvis or proximal ureter. No stone is appreciated. There are dilated air-filled loops of bowel. Cecum measures 11 cm not accounting for magnification. See procedure note for details findings. FLUOROSCOPY TIME: 1.25 minutes DOSE AREA PRODUCT: [id number] mG-cm2 FL/FL guidance in OR IMPRESSION: Fluoroscopy guidance for right retrograde exam. Retained stent fragment projects over the right kidney/proximal ureter. Electronically signed by: Karen Garibay MD 05/03/2025 04:25 PM TOBI
--- NOTE | ~2025-04-28 | XR_ITS ---
CLINICAL HISTORY: sob 1 view chest x-ray Comparison: CR/SR - XR CHEST 1 VIEW - 04/22/25 09:[address]/SR - CT CHEST WO IV CON - 04/15/25 17:00 EST Findings: Small bilateral pleural effusions. Pulmonary edema. Infrahilar opacities may be atelectasis or pneumonia. Cardiomegaly. Aortic atherosclerosis. Left subclavian ICD with electrode in the right atrium and right ventricle. Tricuspid valve prosthesis. No acute fracture. IMPRESSION: 1. Small bilateral pleural effusions and pulmonary edema. 2. Infrahilar opacities, possibly representing atelectasis or pneumonia. This document has been electronically signed by: Joyce Hamlin MD on 04/28/2025 18:08:08
--- NOTE | ~2025-04-28 | XR_ITS ---
EXAMINATION: XR CHEST CLINICAL INFORMATION: haemoptysis COMPARISON: 12/27/2024, 04/28/2025, 04/22/2025. TECHNIQUE: AP view of the chest was obtained. FINDINGS: Left-sided 3-lead AICD device in place, with leads extending into the right atrium, right ventricle, and coronary sinus. There has been a prior median sternotomy and mitral valve replacement. There is cardiomegaly, stable. Mediastinal contours are normal. Aortic mural calcifications. There is perihilar haziness and vascular congestion, stable. Lungs demonstrate diffuse interstitial pulmonary edema with bibasilar small to moderate layering pleural effusions, right greater than left, and associated bibasilar parenchymal opacities, presumably passive atelectasis. There has been no change in these findings. There is no perceptible pneumothorax although the patient's chin obscures the medial apices bilaterally. No focal osseous or soft tissue abnormality. XR/XR chest 1V IMPRESSION: 1. No significant interval change from 04/29/2025. Cardiomegaly, moderate interstitial pulmonary edema with bilateral pleural effusions and bibasilar parenchymal consolidations. Electronically signed by: He Hernandez MD 05/03/2025 08:18 AM TOBI
--- NOTE | 2025-04-28 17:16 | ED_ITS ---
HPI - General Adult General Chief complaint: Altered Mental Status Stated complaint: AMS ?sepsis Time Seen by Provider: 04/28/25 17:15 Source: patient Mode of arrival: ambulatory Limitations: no limitations History of Present Illness ED Provider: Dr. Treviño HPI narrative: 84-year-old female history of cardiomyopathy EF of 40%, ureteral stent, mitral valve replacement, CKD, AFib on warfarin presenting to ER today for evaluation of altered mentation. Patient was discharged to a rehab facility where she was prescribed oxycodone for her back pain. Patient is received oxycodone however was found to be altered mental status. EMS did give her some 1.5 mg of Narcan intranasally with good affect. She did appear to be confused afterward. She therefore patient was brought to the ER. Recently diagnosed with flu. Patient does endorse some back pain. A endorse some shortness of breath. Related Data Home Medications ?Medication ?Instructions ?Recorded ?Confirmed ascorbate calcium (vitamin C) 500 500 mg PO DAILY 09/2304/16/25 mg tablet ciutqnjakqdz-Ix-cchg-minerals 1 tab PO DAILY 01/04/23 04/16/25 zinc gluconate 50 mg tablet 50 mg PO DAILY 01/04/23 acetaminophen 325 mg capsule 650 mg PO Q8H PRN Pain 04/15/25 amiodarone 200 mg tablet 200 mg PO DAILY 07/27/24 omeprazole 20 mg capsule,delayed 20 mg PO BID@0630,163 0 12/07/24 04/15/25 release thiamine HCl (vitamin B1) 100 mg 100 mg PO DAILY 01/1204/16/25 capsule amlodipine 5 mg tablet 5 mg PO DAILY 04/15/2504/15 carvedilol 12.5 mg tablet 12.5 mg PO BID 04/15/2504/03 furosemide 40 mg tablet (Lasix) 40 mg PO BID 04/15/25 04/16/25 umeclidinium 62.5 mcg-vilanterol 1 inh inhalation TORIN Y 04/15/25 25 mcg/actuation powdr for inhalation (Anoro Ellipta) cholecalciferol (vitamin D3) 10 10 mcg PO DAILY 04/16/25 mcg (400 unit) tablet (Vitamin D3) potassium chloride 20 mEq 20 meq PO DAILY 04/16/25 tablet,extended release Previous Rx's ?Medication ?Instructions ?Recorded albuterol sulfate 90 mcg/actuation 2 puff inhalation Q 4-6H PRN 06/30/24 aerosol inhaler shortness of breath or wheez ing #8.5 grams metoprolol succinate 50 mg 50 mg PO DAILY #90 tabs tablet,extended release 24 hr spironolactone 25 mg tablet 12.5 mg PO DAILY #90 tabs 01/14/25 lisinopril 5 mg tablet 5 mg PO BID #90 tabs 5 atorvastatin 80 mg tablet 80 mg PO DAILY #90 tabs 02/25 ammonium lactate 12 % lotion 1 appl topical BID #225 g mer 04/24/25 apixaban 2.5 mg tablet (Eliquis) 2.5 mg PO BID #60 tab s 04/24/25 benzonatate 100 mg capsule 100 mg PO TID PRN Cough #30 caps 04/24/25 cefuroxime axetil 250 mg tablet 250 mg PO BID #3 tabs 04/24/25 codeine 10 mg-guaifenesin 100 mg/5 5 ml PO Q6H PRN Cou gh #120 mL 04/24/25 mL oral liquid oseltamivir 30 mg capsule (Tamiflu) 30 mg PO BID #5 ca ps 04/24/25 oxycodone 5 mg tablet 5 mg PO Q8H PRN pain, severe #10 04/24/25 tabs Allergies Allergy/AdvReac Type Severity Reaction Status Date / Time hydrocodone (From Vicodin) Allergy Mild CHEST PAIN Verified 04/28/25 17:16 Review of Systems 2 Review of Systems: Pertinent review of systems as mentioned in HPI. All other system otherwise negative. [facility] Past Medical History [facility] Narrative: Medical history as mentioned in HPI Medical History HFrEF (heart failure with reduced ejection fraction) Chronic atrial fibrillation Chronic anticoagulation Obesity CKD (chronic kidney disease) stage 3, GFR 30-59 ml/min Nephrolithiasis, uric acid Hyperlipidemia HTN (hypertension) A-fib GORDON (obstructive sleep apnea) COPD (chronic obstructive pulmonary disease) Pulmonary HTN Severe mitral regurgitation Thiamine deficiency Osteoporosis Surgical History Hx of hernia repair History of open reduction and internal fixation (ORIF) procedure Family History Family History Father No problems noted. Mother No problems noted. Maternal Aunt Breast cancer Social History Social History Household Members: Significant Other Housing: House Do you presently have visiting nurse or other home services: Yes Alcohol intake: never Patient Tobacco Use Status: Former Tobacco user Tobacco use type: Cigarette Smoked in Last 30 Days: No e-Cigarette/Vaping Use: Never Used Second Hand Smoke Exposure: No Use of substances other than those prescribed or required for medical reasons: No Advance Directives: Yes Advance Directives on File: Yes Advance Directives Date on File: 11/28/23 Do you have a plan to hurt others: No Plan Nutrition Risks: On aspiration precautions service: No Current occupational status: retired Cognitive needs: No Hearing needs: No Vision needs: No Physical Exam ED Exam Exam: General: Appears tachypneic and short of breath. Appears to be confused, patient is cachectic. Head: Normacephalic, atraumatic ENT: oral mucosa moist, neck supple, no tracheal deviation Cardiovascular: regular rate, regular rhythm, no murmurs, rubbing, gallops Respiratory: Crackles in all lung dunn lung exam Gastrointestinal: Soft, non distended, non tender, non guarding Extremities: Trace edema lower extremities Neurological: Awake and alert, no facial droop noted, appears to be encephalopathic Skin: Warm and dry Psychiatric: Appears encephalopathic Vital Signs: Vital Signs - 24 hr 04/28/25 17:05 04/28/25 17:49 04/28/25 18:06 Temperature 98.7 F Pulse Rate 84 76 79 Respiratory Rate 24 H 34 H 42 H Blood Pressure 112/50 L 118/64 100/59 L Pulse Oximetry 90 L 95 97 Oxygen Delivery Method Nasal Cannula CPAP Nasal Cannula Oxygen Flow Rate 2 04/28/25 18:16 04/28/25 18:20 04/28/25 18:51 Temperature Pulse Rate 79 77 Respiratory Rate 51 H 38 H 32 H Blood Pressure 107/58 L 90/66 Pulse Oximetry 98 97 Oxygen Delivery Method Nasal Cannula Nasal Cannula Oxygen Flow Rate 2 2 04/28/25 19:11 04/28/25 19:56 04/28/25 20:00 Temperature 97.9 F Pulse Rate 75 Respiratory Rate 16 16 Blood Pressure 94/49 L 109/49 L Pulse Oximetry 97 Oxygen Delivery Method High Flow Nasal Cannula Oxygen Flow Rate 04/28/25 22:18 04/28/25 22:36 04/28/25 22:57 Temperature 97.9 F Pulse Rate 62 66 65 Respiratory Rate 14 13 Blood Pressure 94/44 L 88/72 L 86/43 L Pulse Oximetry 96 95 Oxygen Delivery Method Room Air High Flow Nasal Cannula Oxygen Flow Rate 30 BMI result Body Mass Index 27.2 Medications Administered Generic Name Dose Route Start Last Admin Trade Name Freq PRN Reason Stop Dose Admin Doxycycline Monohydrate 100 mg 04/28/25 22:30 04/28/25 22:50 Doxycycline Monohydrate 100 Mg Capsule PO 05/06/25 09:00 Not Given BID VIOLETA Norepinephrine Bitartrate 8 mg in 250 mls @ 0 mls/hr 04/28/25 23:00 04/28/25 22:57 Levophed IVCONT 0.05 mcg/kg/min .Q0M VIOLETA 5.92 mls/hr Protocol Administration Per Protocol Lactated Ringer's 500 mls @ 500 mls/hr 04/28/25 23:00 04/28/25 23:12 Lr IV 04/28/25 23:59 500 mls/hr .Q1H VIOLETA Administration Discontinued Medications Generic Name Dose Route Start Last Admin Trade Name Freq PRN Reason Stop Dose Admin Furosemide 20 mg 04/28/25 18:04 04/28/25 19:56 Furosemide 20 Mg/2 Ml Vial IVPUSH 04/28/25 18:05 Not Given ONCE ONE Protocol Magnesium Sulfate 2 gm in 50 mls @ 50 mls/hr 04/28/25 17:20 04/28/25 18:35 Magnesium Sulfate/H2o IV 04/28/25 18:19 Infused ONCE ONE Infusion Ceftriaxone Sodium 2 gm/ 50 mls @ 100 mls/hr 04/28/25 18:11 04/28/25 18:51 Sodium Chloride IV 04/28/25 18:40 Infused ONCE ONE Infusion Albumin Human 50 mls @ 100 mls/hr 04/28/25 18:45 04/28/25 20:25 Kedbumin 25 % IV 04/28/25 19:44 Infused Q30M VIOLETA Infusion Acetaminophen 1,000 mg in 100 mls @ 400 mls/hr 04/28/25 21:49 04/28/25 22:32 Ofirmev IV 04/28/25 22:03 Infused ONCE ONE Infusion Medical Decision Making Medical Decision Making [facility] Narrative: 84-year-old female presented hospital today for evaluation of altered mentation and shortness of breath. I did attempt to place the patient on BiPAP however patient is unable to tolerate BiPAP. Patient we will place back on nasal cannula. We will plan to obtain lab work to assess for any signs of CHF exacerbation. Chest x-ray will be obtained to assess for any sign of pneumonia. Patient has unfortunately been through multiple procedures and extensive medical stays in the past. Patient does appear to be severely cachectic on my exam. I am worried about patient's condition at this time given her history. Patient does appear to be frail and weak. We will pursue a broad laboratory workup including COVID and flu swab and RSV swab as well. Lactic acid and blood culture will be obtained and screen patient for sepsis. I have high suspicion for likely CHF exacerbation possible pulmonary edema secondary to Narcan. Review patient's lab work no sign of significant leukocytosis. Patient does have elevated INR of 5.7. No acute bleeding identified on exam. VBG did not show any significant abnormality. Chemistry did show elevated BUN to creatinine ratio. Patient's troponin is slightly up at 31.9 likely secondary to demand ischemia. BNP elevated at 9000. Patient does have low albumin. TSH normal. Patient is unable to tolerate BiPAP. Patient will be placed on high-flow given her work of breathing. Patient has a respiratory rate of 35. Patient's chest x-ray did show signs of pulmonary edema. She is still flu positive at this time. I have further discussion about resuscitation preference with patient's family. They will like to make patient DNR DNI. Patient is agreeable to this at this time. During her stay in the ER patient's blood pressure did drop low. We will plan to challenge her with a 500 cc IV fluid bolus. We will start her on Levophed. Discussed with family about IV pressors and potential for central line. They are willing to pursue with the pressors for the patient. Patient will be admitted to the ICU. Differential Diagnosis Differential Diagnoses: The differential diagnosis associated with the presentation includes Pulmonary edema, CHF exacerbation, pneumonia, UTI Consult Healthcare Provider Management of the patient was discussed with: Aircraft Cabin Cleaner (ICU) Lab Data MDM Lab Attestation statement: I reviewed the patient's lab results. 04/28/25 17:32 04/28/25 17:50 Labs: Lab Results 04/28/25 04/28/25 04/28/25 Range/Units 17:32 17:39 17:50 WBC 6.2 (4.8-10.8) X10*3/uL RBC 4.18 L (4.20-5.50) X10*6/uL Hgb 11.9 L (12.0-16.0) g/dl Hct 36.6 L (37.0-47.0) % MCV 87.6 (80.0-98.0) fL MCH 28.5 (27.0-33.0) pg MCHC 32.5 (31.0-35.0) g/dl RDW 15.8 (11.0-16.0) % Plt Count 152 L D (160-400) X10*3/uL MPV 11.4 (9.4-12.3) fL Immature Gran % (Auto) 0.6 H (0.0-0.4) % Neut % (Auto) 84.8 H (45-73) % Lymph % (Auto) 9.3 L (20-40) % [place] % (Auto) 4.6 (2-11) % Eos % (Auto) 0.5 (0-4) % Baso % (Auto) 0.2 (0-2) % Lymph # (Auto) 0.6 L (1.2-4.9) X10*3/uL [place] # (Auto) 0.3 (0.1-1.2) X10*3/uL Eos # (Auto) 0.0 (0.0-0.4) X10*3/uL Baso # (Auto) 0.0 (0.0-0.2) X10*3/uL Abs Immat Gran (auto) 0.04 H (0.00-0.03) X10*3/uL Absolute Neuts (auto) 5.3 (2.0-8.3) x10*3/uL Absolute Nucleated RBC 0.000 (0.0-0.012) X10*3/uL Nucleated RBC % (auto) 0.0 (0.0-0.2) /100WBC PT 66.2 H D (11.2-13.5) SEC INR 5.7 H* D (0.9-1.1) VBG pH 7.38 (7.32-7.43) VBG pCO2 62 mmHg VBG pO2 37 mmHg VBG HCO3 37 H (22-26) mmol/L VBG O2 Saturation 53.0 % VBG Base Excess 10.4 mmol/L Sodium 139 (135-145) mmol/L Potassium 5.0 D (3.3-5.1) mmol/L Chloride 104 (96-108) mmol/L Carbon Dioxide 29 (22-29) mmol/L Anion Gap 11 L (12-20) BUN 50 H (9-16) mg/dL Creatinine 1.31 (0.5-1.4) mg/dL Estim Creat Clear Calc 27.5 Estimated GFR 39 Random Glucose 108 (60-115) mg/dL Lactic Acid 1.1 (0.5-2.0) mmol/L Calcium 8.4 (8.4-10.2) mg/dL Magnesium 2.4 (1.6-2.6) mg/dL Total Bilirubin 1.0 (0.0-1.0) mg/dL AST 54 H (5-31) U/L ALT 23 (0-31) U/L Alkaline Phosphatase 141 H (39-117) U/L Troponin I High Sens 36.7 H (<3.5-17.0) ng/L NT-Pro-B Natriuret Pep 9082.2 H (<300) pg/mL Total Protein 5.4 L (6.5-8.0) g/dL Albumin 2.8 L (3.5-5.0) g/dL TSH 0.59 (0.32-4.0) uIU/mL Influenza Type A (PCR) POSITIVE A (Negative) Influenza Type B (PCR) NEGATIVE (Negative) RSV RNA Qual (PCR) NEGATIVE (Negative) SARS-CoV-2 RNA (RT-PCR) NEGATIVE (Negative) 04/28/25 Range/Units 18:51 WBC (4.8-10.8) X10*3/uL RBC (4.20-5.50) X10*6/uL Hgb (12.0-16.0) g/dl Hct (37.0-47.0) % MCV (80.0-98.0) fL MCH (27.0-33.0) pg MCHC (31.0-35.0) g/dl RDW (11.0-16.0) % Plt Count (160-400) X10*3/uL MPV (9.4-12.3) fL Immature Gran % (Auto) (0.0-0.4) % Neut % (Auto) (45-73) % Lymph % (Auto) (20-40) % [place] % (Auto) (2-11) % Eos % (Auto) (0-4) % Baso % (Auto) (0-2) % Lymph # (Auto) (1.2-4.9) X10*3/uL [place] # (Auto) (0.1-1.2) X10*3/uL Eos # (Auto) (0.0-0.4) X10*3/uL Baso # (Auto) (0.0-0.2) X10*3/uL Abs Immat Gran (auto) (0.00-0.03) X10*3/uL Absolute Neuts (auto) (2.0-8.3) x10*3/uL Absolute Nucleated RBC (0.0-0.012) X10*3/uL Nucleated RBC % (auto) (0.0-0.2) /100WBC PT (11.2-13.5) SEC INR (0.9-1.1) VBG pH (7.32-7.43) VBG pCO2 mmHg VBG pO2 mmHg VBG HCO3 (22-26) mmol/L VBG O2 Saturation % VBG Base Excess mmol/L Sodium (135-145) mmol/L Potassium (3.3-5.1) mmol/L Chloride (96-108) mmol/L Carbon Dioxide (22-29) mmol/L Anion Gap (12-20) BUN (9-16) mg/dL Creatinine (0.5-1.4) mg/dL Estim Creat Clear Calc Estimated GFR Random Glucose (60-115) mg/dL Lactic Acid (0.5-2.0) mmol/L Calcium (8.4-10.2) mg/dL Magnesium (1.6-2.6) mg/dL Total Bilirubin (0.0-1.0) mg/dL AST (5-31) U/L ALT (0-31) U/L Alkaline Phosphatase (39-117) U/L Troponin I High Sens 31.9 H (<3.5-17.0) ng/L NT-Pro-B Natriuret Pep (<300) pg/mL Total Protein (6.5-8.0) g/dL Albumin (3.5-5.0) g/dL TSH (0.32-4.0) uIU/mL Influenza Type A (PCR) (Negative) Influenza Type B (PCR) (Negative) RSV RNA Qual (PCR) (Negative) SARS-CoV-2 RNA (RT-PCR) (Negative) Independent Interpretation I performed an independent interpretation of an: Plain X-Ray Radiology Impression Discussion of test interpretation with radiology: I have reviewed the radiologist's reading. Chronic Conditions CHF EF 15-20% Critical Care Time Critical Care Time Critical Care Time: Yes Total Critical Care Time: 60 Attestation: Time is exclusive of separately billable procedures. Time includes: direct patient care, patient reassessment, coordination of patient care, interpretation of data (laboratory data, pulse oximetry, arterial blood gases and chest xrays), review of patient's medical records, medical consultation and documentation of patient care. Procedures excluded from critical care time: central intravenous line placement and electrocardiography. Discharge Plan Discharge Clinical Impression: CHF (congestive heart failure), Respiratory failure, Flu, Acute hypotension Patient Disposition: Admitted As Inpatient
[2025-04-28] MEDS: Magnesium Sulfate/H2O 2 GM/50 ML PIGGYBACK IV (17:35)
[2025-04-28 17:38] LABS: MANUAL DIFF FLAG NO
[2025-04-28 17:42] LABS: VBG HCO3 37 mmol/L (22-26); VBG O2 % Saturation 53.0 %
[2025-04-28 17:42] LABS: Venous Blood Gas Refer to POC result
[2025-04-28 17:50] LABS: Hematocrit 36.6 % (37.0-47.0); Hemoglobin 11.9 g/dl (12.0-16.0); Imm Gran Abs Auto 0.04 X10*3/uL (0.00-0.03); Imm Gran Pct Auto 0.6 % (0.0-0.4); Lymphocytes Absolute Auto 0.6 X10*3/uL (1.2-4.9); Mean Corpuscular HGB Conc 32.5 g/dl (31.0-35.0); Mean Corpuscular Hemoglobin 28.5 pg (27.0-33.0); Mean Corpuscular Volume 87.6 fL (80.0-98.0); NRBC Abs Auto 0.000 X10*3/uL (0.0-0.012); NRBC Pct Auto 0.0 /100WBC (0.0-0.2); Platelet Count 152 X10*3/uL (160-400); Red Blood Count 4.18 X10*6/uL (4.20-5.50); White Blood Count 6.2 X10*3/uL (4.8-10.8)
[2025-04-28 17:57] LABS: Prothrombin Time 66.2 SEC (11.2-13.5)
[2025-04-28 17:59] LABS: Magnesium 2.4 mg/dL (1.6-2.6)
[2025-04-28 18:00] LABS: Troponin-I High Sensitivity 36.7 ng/L (<3.5-17.0)
--- OUTSIDE RECORDS SUMMARY | 2025-04-28 18:01 | XMS_ITS | Encounter Summary ---
Author Organization [facility] Address [address] [place] [address] Phone Care Team Providers Care Shore Man Name Role Phone Kiesha Macedo MD Primary Care Provider Samira Stroud MD Unavailable Encounter Details Date Type Department Care Team (Late st Contact Info) Description 11/20/2022 Ancillary Orders [facility] [address]rd Floor, [address] [place] [address] Nabeel Casas MD [address] [place] [address] [email or web address] Social History Tobacco Use Types Packs/Day Years Used Date Smoking Tobacco: Former Cigarettes Smokeless Tobacco: Never Comments:quit age 33 Alcohol Use Standard Drinks/Week Comments No 0 (1 standard drink = 0.6 oz pur e alcohol) Education Answer Date Recorded Are you interested in more education? Not on tsephie e 09/28/2022 Are you concerned about learning? [...] Description 10/14/2024 Procedure [facility] [address] [place] [address] 10/28/2024 Procedure Pass [facility] [address] [place] [address] 10/28/2024 Procedure Pass [facility] [address] [place] [address] 02/16/2025 Procedure Pass [facility] [address] [place] [address] 06/18/2025 1:30 PM EST Appointment Echo [facility] [address] [place] [address] Franklin Jain MD [address] [place] [address], [address] [address] 07/27/2025 8:00 AM EST Office Visit [facility] [address] [place] [address] 3rd Floor, [address] [place] [address] Franklin Jain MD [address] [place] [address] 07/27/2025 8:30 AM EST Appointment Non-Invasive Cardiology [address] [place] [address] [place] [address] Eyad Khoury MD [address] [place] [address] documented as of this encounter Visit Diagnoses Not on filedocumented in this encounter Care Teams Shore Man Relationship Specialty Start Date End Date Kiesha Macedo MD [address] [place] [address] PCP - General Internal Medicine 10/07/18 Samira Stroud MD [address] [place] [address] [email or web address] Card[facility] 07/13/20 documented as of this encounter Additional Source Comments The information contained in this document represents components of the legal health record. It is not the complete legal health record.[facility]
--- OUTSIDE RECORDS SUMMARY | 2025-04-28 18:01 | XMS_ITS | Encounter Summary ---
Author Organization [facility] Address [address] [place] [address] [place] [address] Phone Care Team Providers Care Filtration Operator Name Role Phone Kiesha Macedo MD Primary Care Provider Samira Stroud MD Unavailable [phone] Encounter Details Date Type Department Care Team (Late st Contact Info) Description 11/20/2022 Procedure Pass [facility] [address] [place] [id number] Social History Tobacco Use Types Packs/Day Years [...] Description 10/14/2024 Procedure [facility] [address] [place] [address] 10/28/2024 Procedure Pass [facility] [address] [place] [address] 10/28/2024 Procedure Pass Non-[facility] [address] [place] [address] 02/16/2025 Procedure Pass [facility] [address] [place] [address] 06/18/2025 1:30 PM EST Appointment Echo [facility] [address] [place] [address] Franklin Jain MD [address] [place] [address], [address] [place] [address] [email or web address] 07/27/2025 8:00 AM EST Office Visit [facility] [address] [place] [address] 3rd Floor, [address] [place] [address] Franklin Jain MD [address] [place] [address], [address] [address] [email or web address] 07/27/[email or web address] 8:30 AM EST Appointment Non-Invasive Cardiology [address] [place] [address] [place] [address] Eyad Khoury MD [address] [place] [address] documented as of this encounter Visit Diagnoses Not on filedocumented in this encounter Care Teams Filtration Operator Relationship Specialty Start Date End Date Kiesha Macedo MD [facility] [place], [place] PCP - General Internal Medicine 10/07/18 Samira Stroud MD [facility] [place], [place] [email or web address] Cardiology 07/13/20 documented as of this encounter Additional Source Comments The information contained in this document represents components of the legal health record. It is not the complete legal health record.[facility]
--- OUTSIDE RECORDS SUMMARY | 2025-04-28 18:01 | XMS_ITS | Encounter Summary ---
Author Organization [facility] Address [address] [place] [address] [place] [address] Phone Care Team Providers Care Associate Professor Of Media Arts Name Role Phone Kiesha Macedo MD Primary Care Provider [phone] Samira Stroud MD Unavailable [phone] Encounter Details Date Type Department Care Team (Late st Contact Info) Description 04/05/2020 Procedure Pass [facility] [address] [place] [address] Social History Tobacco Use Types Packs/Day Years [...] Description 10/14/2024 Procedure [facility] [address] [place] [address] 10/28/2024 Procedure Pass [facility] [address] [place] [address] 10/28/2024 Procedure Pass [facility] [address] [place] [address] 02/16/2025 Procedure [facility] [place] [address] [place] [address] 06/18/2025 1:30 PM EST Appointment Echo Lab [address] [place] [address] Franklin Jain MD [address] [place] [address], [address] [address] 07/27/2025 8:00 AM EST Office Visit [facility] [address] [place] [address] 3rd Floor, [address] [place] [address] Franklin Jain MD [address] [place] [address], [address] [address] 07/27/2025 8:30 AM EST Appointment Non-Invasive Cardiology [address] [place] [address] Eyad Khoury MD [address] [place] [address] [email or web address] documented as of this encounter Visit Diagnoses Not on filedocumented in this encounter Care Teams Associate Professor Of Media Arts Relationship Specialty Start Date End Date Kiesha Macedo MD [address] [place] [address] PCP - General Internal Medicine 10/07/18 Samira Stroud MD [address] [place] [address] [email or web address] Cardiology 07/13/20 documented as of this encounter Additional Source Comments The information contained in this document represents components of the legal health record. It is not the complete legal health record.[facility]
--- OUTSIDE RECORDS SUMMARY | 2025-04-28 18:01 | XMS_ITS | Encounter Summary ---
Author Organization [facility] Address [address] [place] [address] [place] [address] Phone Care Team Providers Care Cnc Service Technician Name Role Phone Kiesha Macedo MD Primary Care Provider [phone] Samira Stroud MD Unavailable [phone] Encounter Details Date Type Department Care Team (Late st Contact Info) Description 04/21/2020 Procedure Pass [facility] [address] [place] [address] Social History Tobacco Use Types Packs/Day Years [...] Description 10/14/2024 Procedure [facility] [address] [place] [address] 10/28/2024 Procedure Pass [facility] [address] [place] [address] 10/28/2024 Procedure Pass [facility] [address] [place] [address] 02/16/2025 Procedure [facility] [place] [address] [place] [address] 06/18/2025 1:30 PM EST Appointment Echo Lab [address] [place] [address] Franklin Jain MD [address] [place] [address], [address] [address] 07/27/2025 8:00 AM EST Office Visit [facility] [address] [place] [address] 3rd Floor, [address] [place] [address] Franklin Jain MD [address] [place] [address], [address] [address] 07/27/2025 8:30 AM EST Appointment Non-Invasive Cardiology [address] [place] [address] [place] [address] Eyad Khoury MD [address] [place] [address] [email or web address] documented as of this encounter Visit Diagnoses Not on filedocumented in this encounter Care Teams Cnc Service Technician Relationship Specialty Start Date End Date Kiesha Macedo MD [address] [place] [address] PCP - General Internal Medicine 10/07/18 Samira Stroud MD [address] [place] [address] [email or web address] Cardiology 07/13/20 documented as of this encounter Additional Source Comments The information contained in this document represents components of the legal health record. It is not the complete legal health record.[facility]
--- OUTSIDE RECORDS SUMMARY | 2025-04-28 18:01 | XMS_ITS | Encounter Summary ---
Author Organization [facility] Address [address] [place] [address] [place] [address] Phone Care Team Providers Care Solar Installation Technician Name Role Phone Kiesha Macedo MD Primary Care Provider [phone] Samira Stroud MD Unavailable [phone] Encounter Details Date Type Department Care Team (Late st Contact Info) Description 10/09/2021 Procedure Pass Non-Invasive Cardiology [address] [place] [address] Social History Tobacco Use Types Packs/Day Years [...] Description 10/14/2024 Procedure Pass Non-Invasive Cardiology [address] [place] [address] 10/28/2024 Procedure Pass Non-Invasive Cardiology [address] [place] [address] 10/28/2024 Procedure Pass Non-Invasive Cardiology [address] [place] [address] 02/16/2025 Procedure Pass [facility] [address] [place] [address] 06/18/2025 1:30 PM EST Appointment Echo Lab [address] [place] [address] Franklin Jain MD [address] [place] [address], [address] [address] 07/27/2025 8:00 AM EST Office Visit [facility] [address] [place] [address] 3rd Floor, [address] [place] [address] Franklin Jain MD [address] [place] [address], [address] [address] 07/27/2025 8:30 AM EST Appointment Non-Invasive Cardiology [address] [place] [address] Eyad Khoury MD [address] [place] [address] [email or web address] documented as of this encounter Visit Diagnoses Not on filedocumented in this encounter Care Teams Solar Installation Technician Relationship Specialty Start Date End Date Kiesha Macedo MD [address] [place] [address] PCP - General Internal Medicine 10/07/18 Samira Stroud MD [address] [place] [address] [email or web address] Cardiology 07/13/20 documented as of this encounter Additional Source Comments The information contained in this document represents components of the legal health record. It is not the complete legal health record.[facility]
--- OUTSIDE RECORDS SUMMARY | 2025-04-28 18:01 | XMS_ITS | Encounter Summary ---
Author Organization [facility] Address [address] [place] [address] [place] [address] Phone Care Team Providers Care Medication Aide Name Role Phone Kiesha Macedo MD Primary Care Provider [phone] Samira Stroud MD Unavailable [phone] Encounter Details Date Type Department Care Team (Late st Contact Info) Description 07/10/2021 Procedure Pass Non-Invasive Cardiology [address] [place] [address] Social History Tobacco Use Types Packs/Day Years [...] Description 10/14/2024 Procedure Pass Non-Invasive Cardiology [address] [place] [address] 10/28/2024 Procedure Pass Non-Invasive Cardiology [address] [place] [address] 10/28/2024 Procedure Pass Non-Invasive Cardiology [address] [place] [address] 02/16/2025 Procedure Pass Echo [facility] [address] [place] [address] 06/18/2025 1:30 PM EST Appointment Echo Lab [address] [place] [address] Franklin Jain MD [address] [place] [address], [address] [address] 07/27/2025 8:00 AM EST Office Visit [facility] [address] [place] [address] 3rd Floor, [address] [place] [address] Franklin Jain MD [address] [place] [address], [address] [address] 07/27/2025 8:30 AM EST Appointment Non-Invasive Cardiology [address] [place] [address] Eyad Khoury MD [address] [place] [address] [email or web address] documented as of this encounter Visit Diagnoses Not on filedocumented in this encounter Care Teams Medication Aide Relationship Specialty Start Date End Date Kiesha Macedo MD [address] [place] [address] PCP - General Internal Medicine 10/07/18 Samira Stroud MD [address] [place] [address] [email or web address] Cardiology 07/13/20 documented as of this encounter Additional Source Comments The information contained in this document represents components of the legal health record. It is not the complete legal health record.[facility]
--- OUTSIDE RECORDS SUMMARY | 2025-04-28 18:01 | XMS_ITS | Encounter Summary ---
Author Organization [facility] Address [address] [place] [address] Phone Care Team Providers Care Dish Room Worker Name Role Phone Kiesha Macedo MD Primary Care Provider [phone] Samira Stroud MD Unavailable [phone] Encounter Details Date Type Department Care Team (Late st Contact Info) Description 05/23/2020 Prep for Surgery [facility] Cardiac Surgery [address] [place] [address] Elba Cruz PA-C [address] [place] [address] [email or web address] Social History Tobacco Use Types Packs/Day Years [...] Description 10/14/2024 Procedure Pass Non-Invasive Cardiology [address] [place] [address] 10/28/2024 Procedure Pass Non-Invasive Cardiology [address] [place] [address] 10/28/2024 Procedure Pass Non-Invasive Cardiology [address] [place] [address] 02/16/2025 Procedure Pass Echo Lab [address] [place] [address] 06/18/2025 1:30 PM EST Appointment Echo [facility] [place] [address] Franklin Jain MD [address] [place] [address], [address] [place] [address] 07/27/2025 8:00 AM EST Office Visit [facility] [address] [place] [address] 3rd Floor, [address] [place] [address] Franklin Jain MD [address] [place] [address], [address] [address] 07/27/2025 8:30 AM EST Appointment Non-Invasive Cardiology [address] [place] [address] [place] [address] Eyad Khoury MD [address] [place] [address] documented as of this encounter Visit Diagnoses Not on filedocumented in this encounter Care Teams Dish Room Worker Relationship Specialty Start Date End Date Kiesha Macedo MD [facility] [place], [place] PCP - General Internal Medicine 10/07/18 Samira Stroud MD [facility] [place], [place] [email or web address] Cardiology 07/13/20 documented as of this encounter Additional Source Comments The information contained in this document represents components of the legal health record. It is not the complete legal health record.[facility]
--- OUTSIDE RECORDS SUMMARY | 2025-04-28 18:01 | XMS_ITS | Encounter Summary ---
Author Organization [facility] Address [address] [place] [address] [place] [address] Phone Care Team Providers Care Info Print Press Operator Name Role Phone Kiesha Macedo MD Primary Care Provider [phone] Samira Stroud MD Unavailable [phone] Encounter Details Date Type Department Care Team (Late st Contact Info) Description 05/31/2020 Procedure Pass [facility], Ct Scan - [facility] [address] [place] [address] Social History Tobacco Use Types Packs/Day Years [...] Description 10/14/2024 Procedure Pass Non-Invasive Cardiology [address] [place] [address] 10/28/2024 Procedure Pass Non-Invasive Cardiology [address] [place] [address] 10/28/2024 Procedure Pass Non-Invasive Cardiology [address] [place] [address] 02/16/2025 Procedure Pass Echo Lab [address] [place] [address] 06/18/2025 1:30 PM EST Appointment Echo Lab [address] [place] [address] Franklin Jain MD [address] [place] [address], [address] [address] 07/27/2025 8:00 AM EST Office Visit [facility] [address] [place] [address] 3rd Floor, [address] [place] [address] Franklin Jain MD [address] [place] [address], [address] [address] 07/27/2025 8:30 AM EST Appointment Non-Invasive Cardiology [address] [place] [address] Eyad Khoury MD [address] [place] [address] [email or web address] documented as of this encounter Visit Diagnoses Not on filedocumented in this encounter Care Teams Info Print Press Operator Relationship Specialty Start Date End Date Kiesha Macedo MD [address] [place] [address] PCP - General Internal Medicine 10/07/18 Samira Stroud MD [address] [place] [address] [email or web address] Cardiology 07/13/20 documented as of this encounter Additional Source Comments The information contained in this document represents components of the legal health record. It is not the complete legal health record.[facility]
--- OUTSIDE RECORDS SUMMARY | 2025-04-28 18:01 | XMS_ITS | Encounter Summary ---
Author Organization [facility] Address [address] [place] [address] [place] [address] Phone Care Team Providers Care Medical Records Coordinator Name Role Phone Kiesha Macedo MD Primary Care Provider Samira Stroud MD Unavailable [phone] Encounter Details Date Type Department Care Team (Late st Contact Info) Description 06/02/2024 Procedure Pass Echo Lab [place] [address] [place] [id number] Social History Tobacco Use Types Packs/Day Years [...] Description 10/14/2024 Procedure Pass Non-Invasive Cardiology [address] [place] [address] 10/28/2024 Procedure Pass Non-Invasive Cardiology [address] [place] [address] 10/28/2024 Procedure Pass Non-Invasive Cardiology [address] [place] [address] 02/16/2025 Procedure Pass Echo Lab [address] [place] [address] 06/18/2025 1:30 PM EST Appointment Echo Lab [address] [place] [address] Franklin Jain MD [address] [place] [address], [address] [place] [address] [email or web address] 07/27/2025 8:00 AM EST Office Visit [facility] [address] [place] [address] 3rd Floor, [address] [place] [address] Franklin Jain MD [address] [place] [address], [address] [address] [email or web address] 07/27/2025 8:30 AM EST Appointment Non-Invasive Cardiology [address] [place] [address] [place] [address] Eyad Khoury MD [address] [place] [address] documented as of this encounter Visit Diagnoses Not on filedocumented in this encounter Care Teams Medical Records Coordinator Relationship Specialty Start Date End Date Kiesha Macedo MD [facility] [place], [place] PCP - General Internal Medicine 10/07/18 Samira Stroud MD [facility] [place], [place] [email or web address] Cardiology 07/13/20 documented as of this encounter Additional Source Comments The information contained in this document represents components of the legal health record. It is not the complete legal health record.[facility]
--- OUTSIDE RECORDS SUMMARY | 2025-04-28 18:01 | XMS_ITS | Encounter Summary ---
Author Organization [facility] Address [address] [place] [address] [place] [address] Phone Care Team Providers Care Perfect Binder Operator Name Role Phone Kiesha Macedo MD Primary Care Provider [phone] Samira Stroud MD Unavailable [phone] Encounter Details Date Type Department Care Team (Late st Contact Info) Description 11/20/2022 Ancillary Orders Non-Invasive Cardiology [address] [place] [address] Nabeel Casas MD [address] [place], [place] [id number] [email or web address] Complete heart block Social History Tobacco Use [...] Description 10/14/2024 Procedure Pass Non-Invasive Cardiology [address] [place] [address] 10/28/2024 Procedure Pass Non-Invasive Cardiology [address] [place] [address] 10/28/2024 Procedure Pass Non-Invasive Cardiology [address] [place] [address] 02/16/2025 Procedure Pass Echo Lab [address] [place] [address] 06/18/2025 1:30 PM EST Appointment Echo Lab [address] [place] [address] Franklin Jain MD [address] [place] [address], [address] [address] 07/27/2025 8:00 AM EST Office Visit [facility] [address] [place] [address] 3rd Floor, [address] [place] [address] Franklin Jain MD [address] [place] [address], [address] [address] 07/27/2025 8:30 AM EST Appointment Non-Invasive Cardiology [address] [place] [address] [place] [address] Eyad Khoury MD [address] [place] [address] documented as of this encounter Visit Diagnoses Diagnosis Complete heart block Atrioventricular block, complete documented in this encounter Care Teams Perfect Binder Operator Relationship Specialty Start Date End Date Kiesha Macedo MD [address] [place] [address] PCP - General Internal Medicine 10/07/18 Samira Stroud MD [address] [place] [address] [email or web address] Cardiology 07/13/20 documented as of this encounter Additional Source Comments The information contained in this document represents components of the legal health record. It is not the complete legal health record.[facility]
--- OUTSIDE RECORDS SUMMARY | 2025-04-28 18:01 | XMS_ITS | Encounter Summary ---
Author Organization [facility] Address [address] [place] [address] [place] [address] Phone Care Team Providers Care Photo Graphics Librarian Name Role Phone Kiesha Macedo MD Primary Care Provider [phone] Samira Stroud MD Unavailable [phone] Encounter Details Date Type Department Care Team (Late st Contact Info) Description 02/13/2023 Procedure Pass Non-Invasive Cardiology [address] [place] [id number] Social History Tobacco Use Types Packs/Day Years [...] Description 10/14/2024 Procedure Pass Non-Invasive Cardiology [address] [place] [address] 10/28/2024 Procedure Pass Non-Invasive Cardiology [address] [place] [address] 10/28/2024 Procedure Pass Non-Invasive Cardiology [address] [place] [address] 02/16/2025 Procedure Pass Echo Lab [address] [place] [address] 06/18/2025 1:30 PM EST Appointment Echo Lab [address] [place] [address] Franklin Jain MD [address] [place] [address], [address] [place] [address] [email or web address] 07/27/2025 8:00 AM EST Office Visit [facility] [address] [place] [address] 3rd Floor, [address] [place] [address] Franklin Jain MD [address] [place] [address], [address] [address] [email or web address] 07/27/2025 8:30 AM EST Appointment Non-Invasive Cardiology [address] [place] [address] [place] [address] Eyad Khoury MD [address] [place] [address] documented as of this encounter Visit Diagnoses Not on filedocumented in this encounter Care Teams Photo Graphics Librarian Relationship Specialty Start Date End Date Kiesha Macedo MD [facility] [place], [place] PCP - General Internal Medicine 10/07/18 Samira Stroud MD [facility] [place], [place] [email or web address] Cardiology 07/13/20 documented as of this encounter Additional Source Comments The information contained in this document represents components of the legal health record. It is not the complete legal health record.[facility]
--- OUTSIDE RECORDS SUMMARY | 2025-04-28 18:01 | XMS_ITS | Encounter Summary ---
Author Organization [facility] Address [address] [place] [address] [place] [address] Phone Care Team Providers Care Kaiako Kura Kaupapa Maori Name Role Phone Kiesha Macedo MD Primary Care Provider [phone] Samira Stroud MD Unavailable [phone] Encounter Details Date Type Department Care Team (Late st Contact Info) Description 05/20/2023 Procedure Pass Non-Invasive Cardiology [address] [place] [id number] Social History Tobacco Use Types Packs/Day Years [...] Description 10/14/2024 Procedure Pass Non-Invasive Cardiology [address] [place] [address] 10/28/2024 Procedure Pass Non-Invasive Cardiology [address] [place] [address] 10/28/2024 Procedure Pass Non-Invasive Cardiology [address] [place] [address] 02/16/2025 Procedure Pass Echo Lab [address] [place] [address] 06/18/2025 1:30 PM EST Appointment Echo Lab [address] [place] [address] Franklin Jain MD [address] [place] [address], [address] [place] [address] [email or web address] 07/27/2025 8:00 AM EST Office Visit [facility] [address] [place] [address] 3rd Floor, [address] [place] [address] Franklin Jain MD [address] [place] [address], [address] [address] [email or web address] 07/27/2025 8:30 AM EST Appointment Non-Invasive Cardiology [address] [place] [address] [place] [address] Eyad Khoury MD [address] [place] [address] documented as of this encounter Visit Diagnoses Not on filedocumented in this encounter Care Teams Kaiako Kura Kaupapa Maori Relationship Specialty Start Date End Date Kiesha Macedo MD [facility] [place], [place] PCP - General Internal Medicine 10/07/18 Samira Stroud MD [facility] [place], [place] [email or web address] Cardiology 07/13/20 documented as of this encounter Additional Source Comments The information contained in this document represents components of the legal health record. It is not the complete legal health record.[facility]
--- OUTSIDE RECORDS SUMMARY | 2025-04-28 18:01 | XMS_ITS | Encounter Summary ---
Author Organization [facility] Address [address] [place] [address] [place] [address] Phone Care Team Providers Care Brake Rider Name Role Phone Kiesha Macedo MD Primary Care Provider [phone] Samira Stroud MD Unavailable [phone] Encounter Details Date Type Department Care Team (Late st Contact Info) Description 02/07/2022 Procedure Pass Echo Lab [place] [place] [address] Social History Tobacco Use Types Packs/Day Years [...] Description 10/14/2024 Procedure Pass Non-Invasive Cardiology [address] [place] [address] 10/28/2024 Procedure Pass Non-Invasive Cardiology [address] [place] [address] 10/28/2024 Procedure Pass Non-Invasive Cardiology [address] [place] [address] 02/16/2025 Procedure Pass [facility] [place] [address] [place] [address] 06/18/2025 1:30 PM EST Appointment Echo Lab [address] [place] [address] Franklin Jain MD [address] [place] [address], [address] [address] 07/27/2025 8:00 AM EST Office Visit [facility] [address] [place] [address] 3rd Floor, [address] [place] [address] Franklin Jain MD [address] [place] [address], [address] [address] 07/27/2025 8:30 AM EST Appointment Non-Invasive Cardiology [address] [place] [address] Eyad Khoury MD [address] [place] [address] [email or web address] documented as of this encounter Visit Diagnoses Not on filedocumented in this encounter Care Teams Brake Rider Relationship Specialty Start Date End Date Kiesha Macedo MD [address] [place] [address] PCP - General Internal Medicine 10/07/18 Samira Stroud MD [address] [place] [address] [email or web address] Cardiology 07/13/20 documented as of this encounter Additional Source Comments The information contained in this document represents components of the legal health record. It is not the complete legal health record.[facility]
--- OUTSIDE RECORDS SUMMARY | 2025-04-28 18:01 | XMS_ITS | Encounter Summary ---
Author Organization [facility] Address [address] [place] [address] [place] [address] Phone Care Team Providers Care Rat Poisoner Name Role Phone Kiesha Macedo MD Primary Care Provider [phone] Samira Stroud MD Unavailable [phone] Encounter Details Date Type Department Care Team (Late st Contact Info) Description 07/10/2021 Procedure Pass Echo Lab [place] [place] [address] Social History Tobacco Use Types Packs/Day Years [...] Description 10/14/2024 Procedure Pass Non-Invasive Cardiology [address] [place] [address] 10/28/2024 Procedure Pass Non-Invasive Cardiology [address] [place] [address] 10/28/2024 Procedure Pass Non-Invasive Cardiology [address] [place] [address] 02/16/2025 Procedure Pass Echo [facility] [place] [address] [place] [address] 06/18/2025 1:30 PM EST Appointment Echo Lab [address] [place] [address] Franklin Jain MD [address] [place] [address], [address] [address] 07/27/2025 8:00 AM EST Office Visit [facility] [address] [place] [address] 3rd Floor, [address] [place] [address] Franklin Jain MD [address] [place] [address], [address] [address] 07/27/2025 8:30 AM EST Appointment Non-Invasive Cardiology [address] [place] [address] Eyad Khoury MD [address] [place] [address] [email or web address] documented as of this encounter Visit Diagnoses Not on filedocumented in this encounter Care Teams Rat Poisoner Relationship Specialty Start Date End Date Kiesha Macedo MD [address] [place] [address] PCP - General Internal Medicine 10/07/18 Samira Stroud MD [address] [place] [address] [email or web address] Cardiology 07/13/20 documented as of this encounter Additional Source Comments The information contained in this document represents components of the legal health record. It is not the complete legal health record.[facility]
--- OUTSIDE RECORDS SUMMARY | 2025-04-28 18:01 | XMS_ITS | Encounter Summary ---
Author Organization [facility] Address [address] [place] [address] [place] [address] Phone Care Team Providers Care Auto Damage Adjuster Name Role Phone Kiesha Macedo MD Primary Care Provider Samira Stroud MD Unavailable [phone] Encounter Details Date Type Department Care Team (Late st Contact Info) Description 02/07/2022 Procedure Pass Non-Invasive Cardiology [address] [place] [address] Social History Tobacco Use Types Packs/Day Years [...] Description 10/14/2024 Procedure Pass Non-Invasive Cardiology [address] [place] [address] 10/28/2024 Procedure Pass Non-Invasive Cardiology [address] [place] [address] 10/28/2024 Procedure Pass Non-Invasive Cardiology [address] [place] [address] 02/16/2025 Procedure Pass Echo Lab [address] [place] [address] 06/18/2025 1:30 PM EST Appointment Echo Lab [address] [place] [address] [place] Jain MD [address] [place] [address], [address] [address] 07/27/2025 8:00 AM EST Office Visit [facility] [address] [place] [address] 3rd Floor, [address] [place] [address] [place] Jain MD [address] [place] [address], [address] [address] 07/27/2025 8:30 AM EST Appointment Non-Invasive Cardiology [address] [place] [address] Eyad Khoury MD [address] [place] [address] [email or web address] documented as of this encounter Visit Diagnoses Not on filedocumented in this encounter Care Teams Auto Damage Adjuster Relationship Specialty Start Date End Date Kiesha Macedo MD [address] [place] [address] PCP - General Internal Medicine 10/07/18 Samira Srtoud MD [address] [place] [address] [email or web address] Cardiology 07/13/20 documented as of this encounter Additional Source Comments The information contained in this document represents components of the legal health record. It is not the complete legal health record.[facility]
--- OUTSIDE RECORDS SUMMARY | 2025-04-28 18:01 | XMS_ITS | Encounter Summary ---
Author Organization [facility] Address [address] [place] [address] [place] [address] Phone Care Team Providers Care Heat Engineering Teacher Name Role Phone Kiesha Macedo MD Primary Care Provider [phone] Samira Stroud MD Unavailable [phone] Encounter Details Date Type Department Care Team (Late st Contact Info) Description 11/14/2020 Procedure Pass Non-Invasive Cardiology [address] [place] [address] Social History Tobacco Use Types Packs/Day Years [...] Description 10/14/2024 Procedure Pass Non-Invasive Cardiology [address] [place] [address] 10/28/2024 Procedure Pass Non-Invasive Cardiology [address] [place] [address] 10/28/2024 Procedure Pass Non-Invasive Cardiology [address] [place] [address] 02/16/2025 Procedure Pass Echo Lab [address] [place] [address] 06/18/2025 1:30 PM EST Appointment Echo Lab [address] [place] [address] [place] Jain MD [address] [place] [address], [address] [address] 07/27/2025 8:00 AM EST Office Visit [facility] [address] [place] [address] 3rd Floor, [address] [place] [address] [place] Jain MD [address] [place] [address], [address] [address] 07/27/2025 8:30 AM EST Appointment Non-Invasive Cardiology [address] [place] [address] Eyad Khoury MD [address] [place] [address] [email or web address] documented as of this encounter Visit Diagnoses Not on filedocumented in this encounter Care Teams Heat Engineering Teacher Relationship Specialty Start Date End Date Kiesha Macedo MD [address] [place] [address] PCP - General Internal Medicine 10/07/18 Samira Stroud MD [address] [place] [address] [email or web address] Cardiology 07/13/20 documented as of this encounter Additional Source Comments The information contained in this document represents components of the legal health record. It is not the complete legal health record.[facility]
--- OUTSIDE RECORDS SUMMARY | 2025-04-28 18:02 | XMS_ITS | Clinical Summary ---
Author Organization [facility] Address [address] [place] [address] Phone Care Team Providers Care Churn Operator Margarine Name Role Phone Kiesha Macedo MD Primary Care Provider [phone] Samira Stroud MD Unavailable [phone] Allergies Active Allergy Reactions Criticality Noted Date [...] valve disease, biosynthetic mitral valve, history of MS at 33 years old, hypertension and hyperlipidemia presenting for device upgrade to OFFICE ADMINISTRATOR-D with addition of RV lead from Left [...] valve disease, biosynthetic mitral valve, history of MS at 33 years old, hypertension and hyperlipidemia presenting for device upgrade to OFFICE ADMINISTRATOR-D with addition of RV lead from Left [...] reportedly with a prior remote history of MS. Scheduled for cardioversion tomorrow Nuclear stress test [...] by our office rather than going to [place]. 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 History of normal coronaries post MS. Non-rheumatic mitral valve stenosis 12/11/2017 Assessment & [...] She will follow-up with Dr. Hughes in [place] for potential surgery. After her surgery has [...] reliably taking her inhalers. Recently saw her shingles roofer on 04/07. He started prior PFTs about [...] around 62. She had an evaluation by shingles roofer Dr. Les Colon 2 weeks ago and [...] (10/07/2024 4:21 PM EDT): Patient followed by [facility] pulmonology She also has a history of [...] bpm, nonspecific ST-T wave abnormalities, PVCs present [id number] score is 6 Continue Coumadin Continue atenolol [...] Resolved Date Atherosclerosis of coronary artery of telida heart without angina pectoris 05/08/2017 12/11/2017 Assessment [...] Encounters Date Type Department Care Team Description 04/27/2025 Telephone [facility] [address], [address] [place] [address] [place] Jain MD 02/16/2025 3:20 PM EDT Office Visit [facility] [address] Floor, [address] [place] [address] [place] Jain MD Presence of prosthetic heart valve (Primary Dx); Status post tricuspid valve repair 02/16/2025 Transcribe Orders [facility] [address] Floor, [address] [place] [address] [place] Jain MD Dilated cardiomyopathy (Primary Dx); Persistent atrial fibrillation from Last 3 Months Immunizations Immunization Administration [...] Description 10/14/2024 Procedure Pass Non-Invasive Cardiology [address] [place] [address] 10/28/2024 Procedure Pass Non-Invasive Cardiology [address] [place] [address] 10/28/2024 Procedure Pass Non-Invasive Cardiology [address] [place] [address] [place] [address] 02/16/2025 Procedure Pass [facility] [place] [address] 06/18/2025 1:30 PM EST Appointment Echo [facility] [place] [address] [place] Jain MD [address] [facility], [address] [place] [address] 07/27/2025 8:00 AM EST Office Visit [facility] [address] Floor, [address] [place] [address] [place] Jain MD [address] [facility], [address] [place] [address] 07/27/2025 8:30 AM EST Appointment Non-Invasive Cardiology [address] [place] [address] Eyad Khoury MD [address] [place] [address] Health Maintenance Due Date Last Done Comments Adult Td,Tdap Booster 1942 TSH LEVEL 1942 DEPRESSION SCREENING 1954 OSTEOPOROSIS SCREENING INITIAL (ONE-TIME) 2007 PNEUMOCOCCAL VACCINES (50+ years) (2 of 2 - PCV) 03/06/2019 03/06/2018, 04/29/2017 INFLUENZA VACCINE (#1) 2025 , 02/25/2023, 02/25/2023, Additional history exists COVID-19 VACCINE (2024- season) 2025 05/11/2024, 02/25/2023, 04/05/2022, Additional history [...] this topic Medical Devices Implanted Type Area Checker In Device Identifier Shelf Expiration Date Model / Serial / Lot Envelope Tyrx Cardiac Lg Absorbable Antibacterial Sterile - [id number] Implanted:Qty: 1 on 10/07/2024 by Eyad Khoury MD at [facility] Collagen Chest [employer] [id number] 05/08/2025 [id number] / / [id number] Defibrillator Cardiac [id number] Icd [place] Xt Hf Diet Therapist-D Mri Surescan - [id number] Implanted:Qty: 1 on 10/07/2024 by Eyad Khoury MD at [facility] ICD Chest [employer] [id number] 11/28/2025 [id number] / [id number] 02 / Lead Pacing Selectsecure 4fr 69cm Bradycardia Steroid Eluting Fixed Screw Bipolar - [id number] Implanted:Qty: 1 on 07/04/2020 by Elias Christine MD at [facility] Lead Left: Right Ventricle [employer] [id number] 05/05/2022 [id number] / [id number] / Lead Pacing Capsurefix 6.2fr 52cm Novus Mri Silicone Steroid Eluting Transvenous Atrium Rv Active Screw Is1 Bi - [id number] Implanted:Qty: 1 on 07/04/2020 by Elias Christine MD at [facility] Lead Right Atrium [employer] [id number] 04/20/2022 [id number] / [id number] / Lead Cardioverter Defibrillator Sprint Quattro Securesilicone Endo Rv Active Screw 6479v15 - [id number] Implanted:Qty: 1 on 10/07/2024 by Eyad Khoury MD at [facility] Lead Right Ventricle [employer] [id number] 04/29/2025 [id number] / [id number] / Device Pacemaker Norma Xt Dr Mri - [id number] Implanted:Qty: 1 on 07/04/2020 by Elias Christine MD at [facility] Pacemaker Left: Chest Wall [employer] [id number] 12/14/2021 [id number] / [id number] / Valve Heart 10x20 29 31mm Bioprosthesis Mittral Epic Linx Ac Xenograft Stented - [id number] Implanted:Qty: 1 on 06/29/2020 by Aaron Hughes MD at [facility] N/A: Heart [employer] 09/14/2023 E100-31 M-00 / [id number] / Ring Annuloplasty 30mm Tricuspid 3d Incomplete Rigid Downward Angle Valve Mc3 Implantable - [id number] Implanted:Qty: 1 on 06/29/2020 by Aaron Hughes MD at [facility] N/A: Heart [employer] 03/07/2025 [id number] / [id number] / Device Sternal Fixation Zipfix Peek Needle Single - [id number] Implanted:Qty: 4 on 06/29/2020 by Aaron Hughes MD at [facility] N/A: Chest SYNTHES 08.501. 001.01S / / [...] EDT) SODIUM 140 133 - 146 mmol/L [facility] CHLORIDE 102 96 - 108 mmol/L [facility] POTASSIUM 4.5 3.3 - 5.1 mmol/L [facility] CO2 31 21 - 35 mmol/L [facility] BUN 22(H) 6 - 19 mg/dL [facility] CREATININE 1.10 0.5 - 1.5 mg/dL [facility] GLUCOSE 123(H) 70 - 99 mg/dL [facility] CALCIUM 9.3 8.4 - 10.3 mg/dL [facility] EGFR 50(L) >59 mL/min/1.7 3m2 [facility] Comment:Estimated glomerular filtration rate calculated using the CKD-EPI refit equation. ANION GAP 12 10 - 20 mmol/L [facility] Blood 11/30/2024 8:53 AM EDT 11/30/2024 8:55 AM EDT [place] Jain MD LAB BLOOD BKR ORDERABLES Wilma l Result Performing Organization Address [facility]/ZIP Co de Phone Number [address] [address] * (ABNORMAL) LFTs (hepatic panel) (10/08/2024 5:44 AM EDT) ALKALINE PHOSPHATASE 98 39 - 117 U/L [facility] TOTAL BILIRUBIN 1.0 0.0 - 1.2 mg/dL [facility] DIRECT BILIRUBIN 0.4(H) 0.0 - 0.2 mg/dL [facility] Bilirubin (Indirect) 0.6 0 - 1.5 mg/dL [facility] AST 24 0 - 37 U/L [facility] ALT 11 0 - 40 U/L [facility] TOTAL PROTEIN 5.4(L) 6.5 - 8.0 g/dL [facility] ALBUMIN 3.1(L) 3.9 - 4.8 g/dL [facility] GLOBULIN 2.3 1 - 4.8 g/dL [facility] A/G Ratio 1.35 1.00 - 4.80 RATIO [facility] Blood 10/08/2024 5:44 AM EDT 10/08/2024 6:09 AM EDT Anayeli Munguia CNP LAB BLOOD BKR ORDERABLES Final Result Performing Organization Address [facility]/ZIP Co de Phone Number [address] [address] from Last 3 Months or Most Recently Relevant to Health Maintenance Insurance MEDICARE PART A & B [id number] [place] [address] Member Subscriber Plan / Payer (Ef fective 2009-Present) Name:Ramona Pinon Relation to Subscriber:Spouse Name:ARLENEMounikaJOHANNY TORRES Date of :1898 (Home) Address: [address] [place] [address] Payer ID:[id number] (NAIC) Group ID:[id number] Type:PPO Address: [facility] [id number] [place] [address] MEDICARE PART A & B [facility] Member Subscriber Plan / Payer (Ef fective 2009-Present) Name:ArlenemounikaRamona torres Relation to Subscriber:Spouse Name:JOAHNNY PINON Date of :1898 (Home) Address: [address] [place] [address] Payer ID:[id number] (NAIC) Group ID:[id number] Type:PPO Address: [address] [place] [address] MEDICARE PART A & B [facility] Member Subscriber Plan / Payer (Ef fective 2009-Present) Name:ArlenemounikaRamona torres Relation to Subscriber:Spouse Name:JOHANNY PINON Date of :1898 (Home) Address: [address] [place] [address] Payer ID:[id number] (NAIC) Group ID:[id number] Type:PPO Address: [address] [place] [address] MEDICARE PART A & B [facility] Member Subscriber Plan / Payer (Ef fective 2009-Present) Name:Ramona Pinon Relation to Subscriber:Spouse Name:JOHANNY PINON Date of :1898 (Home) Address: [address] [place] [address] Payer ID:[id number] (NAIC) Group ID:[id number] Type:PPO Address: [place] [address] MEDICARE PART A & B [facility] Member Subscriber Plan / Payer ( fective 2009-Present) Name:Ramona Pinon Relation to Subscriber:Spouse Name:JOHANNY PINON Date of :1898 (Home) Address: [address] [place] [address] Payer ID:[id number] (NAIC) Group ID:[id number] Type:PPO Address: [place] [address] MEDICARE PART A & B [id number] [place] [address] Member Subscriber Plan / Payer (Ef fective 2009-Present) Name:Ramona Pinon Relation to Subscriber:Spouse Name:ARLENEMounikaJOHANNY TORRES Date of :1898 (Home) Address: [address] [place] [address] Payer ID:[id number] (NAIC) Group ID:[id number] Type:PPO Address: [facility] [id number] [place] [address] MEDICARE PART A & B [facility] Member Subscriber Plan / Payer (Ef fective 2009-Present) Name:ArlenemounikaRamona torres Relation to Subscriber:Spouse Name:JOHANNY PINON Date of :1898 (Home) Address: [address] [place] [address] Payer ID:[id number] (NAIC) Group ID:[id number] Type:PPO Address: [address] [place] [address] MEDICARE PART A & B [facility] Member Subscriber Plan / Payer (Ef fective 2009-Present) Name:ArlenemounikaRamona torres Relation to Subscriber:Spouse Name:JOHANNY PINON Date of :1898 (Home) Address: [address] [place] [address] Payer ID:[id number] (NAIC) Group ID:[id number] Type:PPO Address: [address] [place] [address] MEDICARE PART A & B [facility] Member Subscriber Plan / Payer (Ef fective 2009-Present) Name:Ramona Pinon Relation to Subscriber:Spouse Name:JOHANNY PINON Date of :1898 (Home) Address: [address] [place] [address] Payer ID:[id number] (NAIC) Group ID:[id number] Type:PPO Address: [facility] [address] [place] [address] Advance Directives For more information, please contact: [phone] (9AM - 5PM [facility], Saturday-Saturday) * Full Code (Latest Code Status [...] Code Status Confirmed With: Patient Care Teams Churn Operator Margarine Relationship Specialty Start Date End Date Kiesha Macedo MD [address] [place], [place] PCP - General Internal Medicine 10/07/18 Samira Stroud MD [address] [place], [place] [email or web address] Cardiology 07/13/20 Additional Source Comments The information contained in this document represents components of the legal health record. It is not the complete legal health record.[facility]
--- OUTSIDE RECORDS SUMMARY | 2025-04-28 18:02 | XMS_ITS | Encounter Summary ---
Author Organization [facility] Address [address] [place] [address] [place] [address] Phone Care Team Providers Care Nuclear Design Engineer Name Role Phone Kiesha Macedo MD Primary Care Provider [phone] Samira Stroud MD Unavailable [phone] Encounter Details Date Type Department Care Team (Late st Contact Info) Description 06/29/2020 Procedure Pass [facility] Echocardiography [address] [place] [address] Social History Tobacco Use Types Packs/Day Years [...] 06/30/2020 7:00 AM Grazyna Vicente, JENNIFER * [place] Suicide Severity Rating Scale (Screener/Recent Self-Report) Question [...] Info) Description 10/14/2024 Procedure Pass Non-Invasive Cardiology [address] [place] [address] [place] [address] 10/28/2024 Procedure Pass Non-Invasive Cardiology [address] [place] [address] [place] [address] 10/28/2024 Procedure Pass Non-Invasive Cardiology [address] [place] [address] [place] [address] 02/16/2025 Procedure Pass Echo Lab [address] [place] [address] 06/18/2025 1:30 PM EST Appointment Echo Lab [address] [place] [address] [place] Jain MD [address] [place] [address], [address] [address] 07/27/2025 8:00 AM EST Office Visit [facility] [address] [place] [address] 3rd Floor, [address] [place] [address] [place] Jain MD [address] [place] [address], [address] [address] 07/27/2025 8:30 AM EST Appointment Non-Invasive Cardiology [address] [place] [address] [place] [address] Eyad Khoury MD [address] [place] [address] documented as of this encounter Visit Diagnoses Not on filedocumented in this encounter Care Teams Nuclear Design Engineer Relationship Specialty Start Date End Date Kiesha Macedo MD [facility] [place] [address] PCP - General Internal Medicine 10/07/18 Samira Stroud MD [address] [place] [address] [email or web address] Cardiology 07/13/20 documented as of this encounter Additional Source Comments The information contained in this document represents components of the legal health record. It is not the complete legal health record.[facility]
--- OUTSIDE RECORDS SUMMARY | 2025-04-28 18:02 | XMS_ITS | Encounter Summary ---
Author Organization [facility] Address [address] [place] [address] [place] [address] Phone Care Team Providers Care Evaporator Operator Molasses Name Role Phone Kiesha Macedo MD Primary Care Provider Samira Stroud MD Unavailable [phone] Encounter Details Date Type Department Care Team (Late st Contact Info) Description 11/20/2022 Procedure Pass Non-Invasive Cardiology [address] [place] [id number] Social History Tobacco Use Types Packs/Day Years [...] Description 10/14/2024 Procedure Pass Non-Invasive Cardiology [address] [place] [address] 10/28/2024 Procedure Pass Non-Invasive Cardiology [address] [place] [address] 10/28/2024 Procedure Pass Non-Invasive Cardiology [address] [place] [address] 02/16/2025 Procedure Pass Echo Lab [address] [place] [address] 06/18/2025 1:30 PM EST Appointment Echo Lab [address] [place] [address] [place] Jain MD [address] [place] [address], [address] [place] [address] [email or web address] 07/27/2025 8:00 AM EST Office Visit [facility] [address] [place] [address] 3rd Floor, [address] [place] [address] [place] Jain MD [address] [place] [address], [address] [address] [email or web address] 07/27/2025 8:30 AM EST Appointment Non-Invasive Cardiology [address] [place] [address] [place] [address] Eyad Khoury MD [address] [place] [address] documented as of this encounter Visit Diagnoses Not on filedocumented in this encounter Care Teams Evaporator Operator Molasses Relationship Specialty Start Date End Date Kiesha Macedo MD [facility] [place], [place] PCP - General Internal Medicine 10/07/18 Samira Stroud MD [facility] [place], [place] [email or web address] Cardiology 07/13/20 documented as of this encounter Additional Source Comments The information contained in this document represents components of the legal health record. It is not the complete legal health record.[facility]
--- OUTSIDE RECORDS SUMMARY | 2025-04-28 18:02 | XMS_ITS | Data Portability ---
Author Organization [facility], Main Office Address [address] [facility], [facility] [address] [place] [address] Care Team Providers Care Oxygen System Tester Name Role Phone LANDON FREY 1ST FLOOR OTHER Assessment Encounter Date Assessment Date Assessment LastModified by Organization Details LastModified Time 01/17/2018 01/17/2018 01/13/18 WBC 4.3, Hgb 11.8, Hct 35.1, Na 141, K 3.6, BUN 12, Yarn Winder 0.62 [email or web address] Not available 01/17/2018 11:17:28 01/22/2018 01/22/201801/13: na 141, k 3.6, bun 12, creat 0.62, wbc 4.3, hgb 11.8, hct 35.1 glord Not available 01/22/2018 15:24:19 01/27/2018 01/27/2018 01/27/18 WBC 5.4, Hgb 13.7, Hct 41.3, Na 142, K 3.9, BUN 12, Yarn Winder 0.59 [email or web address] Not available 01/27/2018 17:03:47 02/05/2018 02/05/201802/03: na 143, k 3.7, bun 15, creat 0.66, wbc 4.2, hgb 11.5, hct 35.2 glord Not available 02/05/2018 14:14:26 02/07/2018 02/07/2018 02/03/18 WBC 4.2, Hgb 11.5, Hct 35.2, Na 143, K 3.7, BUN 15, Yarn Winder 0.66 [email or web address] Not available 02/07/2018 16:44:48 Plan [...] Address Organization Details Recorded Time Pulmonary hypertension 88563208 Active [address], [address], [place], [address], [employer] 8 16:34:20 Obstructive sleep apnea syndrome 65164680 Active [address], [address], [place], [address], [employer] 8 16:34:24 Mitral valve regurgitation 06351988 Active [address], [address], [place], [address], [employer] 8 16:34:38 Aortic valve regurgitation 80715700 Active [address], [address], [place], [address], [employer] 8 16:34:44 Fracture of shaft of femur 66927624 Active [address], [address], [place], [address], [employer] 8 16:35:57 Essential hypertension 03555560 Active [address], [address], [place], [address], [employer] 8 16:36:05 Chronic disease of respiratory system 71757532 Active [address], [address], [place], [address], [employer] 8 16:36:13 Gout 54950997 Active [address], [address], [place], [address], [employer] 8 16:44:07 Elfue-ua-iyoms ic respiratory failure 95471753 Active 2017 Sho Houser MD [address] [facility], [address], [place], [address], [employer] 8 20:08:21 Fracture of shaft of femur 94551176 Active 2017 Sho Houser MD [address] [facility], [address], [place], [address], [facility] [employer] 8 20:11:04 Solitary nodule of lung 699752439 Active 2017 Sho Houser MD [address] [place] [address], [facility], [place], [address], [employer] [facility] 8 20:17:21 Mixed hyperlipidemia 227648058 Active 2017 Sho Houser MD [address] [place] [address], [facility], [place], [address], [employer] 8 20:19:54 Problem Notes None recorded. Medical Equipment None Reported. Allergies Allergen ID Allergen Name Allergen Category Reaction Reaction Severity Criticality Documentation Date Start Date Code Code System Note Provider Name and Address Organization Details Recorded Time 90077 acetamino phen / hydrocodo ne medicatio n Not available Not available Not available 12/18/2017 [address], [facility], [place], [address], [employer] 8 16:34:03 Vitals Date Recorded Body height Body temperature Heart rate Respiratory rate Oxygen saturation Systolic And Diastolic Provider Name and Address Organization Details Last Updated DateTime 8 163.07 cm 97.4 [degF] 80 /min 18 /min 93 % 138/62 mm[Hg] VANESSA HARDEN [address] [facility], [address], [place], [address], [employer] 8 11:11:37 Date Recorded Body height Heart rate Respiratory rate Provider Name and Address Organization Details Last Updated DateTime 01/22/2018 163.07 cm 72 /min 16 /min LIGIA [address], [address], [place], [address], [employer] [facility] 01/22/2018 15:29:09 Date Recorded Body height Body temperature Heart rate Respiratory rate Oxygen saturation Systolic And Diastolic Provider Name and Address Organization Details Last Updated DateTime 8 163.07 cm 97.2 [degF] 68 /min 18 /min 94 % 106/49 mm[Hg] VANESSA HARDEN [address] [facility], [address], [place], [address], [facility] [employer] 8 16:58:27 Date Recorded Body height Heart rate Respiratory rate Body temperature Provider Name and Address Organization Details Last Updated DateTime 02/05/2018 163.07 cm 70 /min 16 /min 97.1 [degF] LIGIA LEMUS [address] [facility], [address], [place], [address] , [facility] [employer] [facility] 02/05/2018 14:25:46 Date Recorded Body height Heart rate Respiratory rate Body temperature Oxygen saturation Systolic And Diastolic Provider Name and Address Organization Details Last Updated DateTime 8 163.07 cm 61 /min 18 /min 98.1 [degF] 98 % 116/56 mm[Hg] JOSUE CARLSONAMARJITINDIRAP [address] [facility], [facility], [place], [address], [facility] [employer] 8 16:42:44 Social History Question Answer Notes LastModified by Organizat ion Details LastModified Time Tobacco Smoking Status Unknown If Ever Smoked Not Available [facility] 03/29/2020 03:13:20 Do You Have An Advance Directive? Yes Full Code [id number] Information not available 03/29/2020 What Was The Date Of Your Most Recent Tobacco Screening? 02/07/2018 [id number] Information not available 03/29/2020 Sex: Unknown Functional Status None recorded. Mental Status None recorded. Family History Nothing Reported. Medical History No medical history recorded. Gynecological HistoryNo gynecological history recorded. Obstetrics History GPAL:G 0 P 0 0 0 0 Past Encounters Encounter ID Performer Location Encounter Start Date Encounter Closed Date Diagnosis/Indication Diagnosis SNOMED-CT Code Diagnosis ICD10 Code Diagnosis IMO Codes Diagnosis Note [id number] LIGIA FREY [facility] [place] [address] 12/18/2017 16:36:21 12/23/2017 16:12:52 Pulmonary hypertension 53090141 I27.0 lasix 40 mg dailyfollo w up with cards in 1-2 weeksObtai n follow up chest xray in 1 week to see if pulm edema has resolvedco nt. 02 PRN to keep sats above 92% Fracture o f shaft of femur 08098895 S72.324D Tylenol 650 mg TID scheduledP ercocet PRN for severe painPT/OT eval and treatbrace on right knee at all times Essential hypertension 20400418 I10 Continue atenolol 50 mg dailylosar infante 100 mg dailyamlod ipine 5 mg dailynitro 0.4 sl prnmonitor bps daily Gout 06794566 M10.061 allopurino l 100 mg dailyasa 81 mg daily [id number] Sho Houser MD [address] [place] [address] 12/19/2017 17:49:22 12/24/2017 08:23:57 Pulmonary hypertension 91175566 I27.0 As above, also on lasix 40 mg qd with KCl 10 meq BID. Will f/u with cardio as planned, may need MVR, as this is thought part of the reason for her pulmonary HTN. Will repeat CXR next week to reassess pulmonary edema.Cont . 02 as above. Fracture o f shaft of femur 23076409 S72.324D Will need PT/OT for strengthen ing [...] times. F/U ortho as planned. Essential hypertension 89314612 I10 Good control on atenolol 50 mg qd, losartan 100 mg qd, amlodipine 5 mg qd and nitro 0.4 sl prnMonitor BP and labs. Gout 25310361 M10.061 Continue allopurino l 100 mg qd. Monitor for sxs. Solitary n odule of lung 524845844 R91.1 Will f/u with pulmonary for assessment . Acute-on-c hronic respiratory failure 15176722 J96.21 J96.12 On O2 at baseline, with acute worsening inpt. likely secondary to pulmonary HTN (see below). Continue O2 by MN, titrated to keep sats above between 90-94% so as not to induce hypercapni a. Will f/u with pulmonary and cardio. Obstructiv e sleep apnea syndrome 63867939 G47.33 Continue CPAP as usual. Mixed hyperlipidemia 267 612198 E78.2 Continue atorvastat in 80 mg qd and ASA 81 mg qd. Monitor labs as outpt. [id number] VANESSA HARDEN [address] [place] [address] 12/27/2017 17:27:17 01/02/2018 15:17:31 Chronic disease of respiratory system 75293785 J98.9 she has not needed her oxygen at this time but knows she can use it if neededshe is seeing pulmonolog y on saturday for a follow up Obstructiv e sleep apnea syndrome 18180963 G47.33 she feels her cpap is not working rightwill order oxygen 2 liters via id at night for nowmonitor Fracture o f shaft of femur 26274522 S72.8X1S continues with lidoderm patches on right legsees ortho next weekawaiti ng decision about next stepcontin ues non weight bearing status [id number] Sal Esparza MD [facility] [address] [place] [address] 01/15/2018 10:09:17 01/28/2018 13:33:13 Fracture of shaft of femur 35689641 S72.391D inform ortho of eventxray at facility to reeval [id number] [facility] [address] [place] [address] 01/17/2018 11:10:56 01/28/2018 13:53:07 Essential hypertension 63019821 I10 norvasc 5 mg qdatenolol 50 mg qdlasix 40 mg qdlosartan potassium 100 mg qdmonitor b/p and labs Chronic di sease of respiratory system 52080366 J98.9 she follows with pulmonolog yshe uses oxygen as neededmoni tor respirator y status Fracture o f shaft of femur 16604643 S72.8X1S continues with lidoderm patches on right leg non weight bearing status follows with orthofelt she hurt it worsex-ray was negative and said there was the healing fracturewa nts CT results from ortho but doesn't see them til 30 thmonitor [id number] LIGIA FREY 36 [place] [address] 01/22/2018 15:15:11 01/28/2018 14:03:23 Essential hypertension 77222027 I10 norvasc 5 mg qdatenolol 50 mg qdlasix 40 mg qdlosartan potassium 100 mg qdmonitor b/p and labs Chronic di sease of respiratory system 97439684 J98.9 Follows with pulmonolog yCPAP at bedtime while sleeping she uses oxygen as neededmoni tor respirator y status Fracture o f shaft of femur 28088566 S72.8X1S continues with lidoderm patches on right leg non weight bearing status, toe touch only follow up with ortho this saturday to determine weight bearing statusmoni tor for pain controltyl enol 650 mg q 8 hours PRN [id number] VANESSA HARDEN [facility] [address] [facility] [place] [address] 01/27/2018 16:57:24 02/12/2018 08:38:08 Fracture of shaft of femur 59812867 S72.8X1S continues with lidoderm patches on right legfollows with orthotoe touch allowedhom e visit this weekcontin ues with therapy Essential hypertension 04359951 I10 norvasc 5 mg qdatenolol 50 mg qdlasix 40 mg qdlosartan potassium 100 mg qdmonitor b/p and labs Mixed hyperlipidemia 267 568371 E78.2 carries diagnosisn ot on medication monitor labs [id number] LIGIA [facility] [address] [place] [address] 02/05/2018 14:10:52 02/12/2018 11:56:12 Fracture of shaft of femur 61052230 S72.8X1S continues with lidoderm patches on right legfollows with ortho in 4 weekstoe touch allowed only at this timecontin ues with therapyHom e eval went well, question possible discharge by the end of this week D/C colace 100 mg daily due to loose stools Essential hypertension 90103251 I10 norvasc 5 mg qdatenolol 50 mg qdlasix 40 mg qdlosartan potassium 100 mg qdmonitor b/p and labs [id number] VANESSA HARDEN [facility] [address] [facility] [address] [place] [address] 02/07/2018 16:41:46 02/12/2018 12:03:29 Fracture of shaft of femur 14316692 S72.8X1S continues with lidoderm patches on right legfollows with orthotoe touch allowedtyl enol 650 mg q 8 hrspercoce t q 4 hrs prnfollow up with ortho Essential hypertension 67151358 I10 ASA 81 mgnorvasc 5 mg qdatenolol 50 mg qdlasix 40 mg qdpotassiu m 10 meq qdlosartan potassium 100 mg qdfollow up with PCP Mixed hyperlipidemia 267 243924 E78.2 atorvastat in 80 mg qd follow up with PCP Obstructiv e sleep apnea syndrome 31039339 G47.33 continue home CPAPfollow up with PCP Gout 74669703 M10.49 allopurino l 100 mg qdfollow up with PCP Chronic di sease of respiratory system 81571682 J98.9 she follows with pulmonolog yshe uses [...] Grant Member ID Guarantor Name 02/12/2018 2 [place]: [employer] Ramona Pinon [id number] Ramona Pinon 02/05/2018 1 MEDICARE B-[place]: [employer] Ramona Escalona Kathrin [id number] Ramona Pinon Notes Date Note Type Note [...] been working with therapy. VANESSA HARDEN [address] [facility], [address], [place], [address], [facility] [employer] 01/17/2018 11:55:52 01/22/2018 text/html A 77 year old female being seen today for acute rounding visit. Pt has follow up with ortho this saturday to determine if she can move to weight bearing status. Otherwise she has no new health concerns at this time. LIGIA Vazquez [facility], [address], [place], [address], [facility] [employer] 01/22/2018 15:31:01 01/27/2018 text/html A 77 year old female being seen for a acute rounding visit. She has been working with therapy and will have a home visit soon. She is toe touch at this time. She sees ortho in 5 weeks. Staff notes no concerns at this time. VANESSA HARDEN [address] [facility], [address], [place], [address], [employer] 01/27/2018 17:14:53 02/05/2018 text/html A 77 year [...] time except for loose stool often. LIGIA Vazquez [facility], [address], [place], [address], [employer] 02/05/2018 14:25:49 02/07/2018 text/html A 77 year [...] disease and pulmonary hypertension. VANESSA HARDEN [address] [facility], [address], [place], [address], [employer] 02/07/2018 16:59:57 OBGyn Episode No OBEpisode recorded.
--- OUTSIDE RECORDS SUMMARY | 2025-04-28 18:02 | XMS_ITS | Encounter Summary ---
Author Organization [facility] Address [address] [place] [address] [place] [address] Phone Care Team Providers Care Light Bulb Tester Name Role Phone Kiesha Macedo MD Primary Care Provider [phone] Samira Stroud MD Unavailable [phone] Encounter Details Date Type Department Care Team (Late st Contact Info) Description 08/10/2024 Procedure Pass [facility] [address] [place] [address] Social History Tobacco Use Types Packs/Day Years [...] Description 10/14/2024 Procedure Pass Non-Invasive Cardiology [address] [place] [address] 10/28/2024 Procedure Pass Non-Invasive Cardiology [address] [place] [address] 10/28/2024 Procedure Pass Non-Invasive Cardiology [address] [place] [address] 02/16/2025 Procedure Pass [facility] [address] [place] [address] 06/18/2025 1:30 PM EST Appointment Echo Lab [address] [place] [address] Franklin Jain MD [address] [place] [address], [address] [place] [address] [email or web address] 07/27/2025 8:00 AM EST Office Visit [facility] [address] [place] [address] 3rd Floor, [address] [place] [address] Franklin Jain MD [address] [place] [address], [address] [address] [email or web address] 07/27/2025 8:30 AM EST Appointment Non-Invasive Cardiology [address] [place] [address] [place] [address] Eyad Khoury MD [address] [place] [address] documented as of this encounter Visit Diagnoses Not on filedocumented in this encounter Care Teams Light Bulb Tester Relationship Specialty Start Date End Date Kiesha Macedo MD [facility] [place] [address] PCP - General Internal Medicine 10/07/18 Samira Stroud [place] [address] Cardiology 07/13/20 documented as of this encounter Additional Source Comments The information contained in this document represents components of the legal health record. It is not the complete legal health record.[facility]
--- OUTSIDE RECORDS SUMMARY | 2025-04-28 18:02 | XMS_ITS | Encounter Summary ---
Author Organization [facility] Address [address] [place] [address] Phone Care Team Providers Care Inside Steward/Stewardess Name Role Phone Kiesha Macedo MD Primary Care Provider [phone] Samira Stroud MD Unavailable [phone] Encounter Details Date Type Department Care Team (Late st Contact Info) Description 11/14/2020 Ancillary Orders Non-Invasive Cardiology [address] [place] [address] Jennifer Voss MD [address] [place] [address] [email or web address] Complete heart block Social History Tobacco Use [...] Description 10/14/2024 Procedure Pass Non-Invasive Cardiology [address] [place] [address] 10/28/2024 Procedure Pass Non-Invasive Cardiology [address] [place] [id number] 10/28/2024 Procedure Pass Non-Invasive Cardiology [address] [place] [address] 02/16/2025 Procedure Pass [facility] [address] [place] [address] 06/18/2025 1:30 PM EST Appointment Echo [facility] [address] [place] [address] Franklin Jain MD [address] [place] [address], [address] [place] [address] 07/27/2025 8:00 AM EST Office Visit [facility] [address] [place] [address] 3rd Floor, [address] [place] [address] Franklin Jain MD [address] [place] [address], [address] [address] 07/27/2025 8:30 AM EST Appointment Non-Invasive Cardiology [address] [place] [address] [place] [address] Eyad Khoury MD [address] [place] [address] documented as of this encounter Visit Diagnoses Diagnosis Complete heart block Atrioventricular block, complete documented in this encounter Care Teams Inside Steward/Stewardess Relationship Specialty Start Date End Date Kiesha Macedo MD [facility] [place], [place] PCP - General Internal Medicine 10/07/18 Samira Stroud MD [facility] [place], [place] [email or web address] Cardiology 07/13/20 documented as of this encounter Additional Source Comments The information contained in this document represents components of the legal health record. It is not the complete legal health record.[facility]
--- OUTSIDE RECORDS SUMMARY | 2025-04-28 18:02 | XMS_ITS | Encounter Summary ---
Author Organization [facility] Address [address] [place] [address] Phone Care Team Providers Care Transport Tech Name Role Phone Kiesha Macedo MD Primary Care Provider [phone] Samira Stroud MD Unavailable [phone] Encounter Details Date Type Department Care Team (Late st Contact Info) Description 11/14/2020 Ancillary Orders [facility] [address] 3rd Floor, [address] [place], [place] [id number] Jennifer Voss MD [address] [place] [phone] [email or web address] Social History Tobacco Use Types Packs/Day Years [...] Description 10/14/2024 Procedure Pass Non-Invasive Cardiology [address] [place] [address] 10/28/2024 Procedure Pass Non-Invasive Cardiology [address] [place] [address] 10/28/2024 Procedure Pass Non-Invasive Cardiology [address] [place] [address] 02/16/2025 Procedure Pass [facility] [address] [place] [address] 06/18/2025 1:30 PM EST Appointment [facility] [address] [place] [address] Franklin Jain MD [address] [place] [address], [address] [place] [address] 07/27/2025 8:00 AM EST Office Visit [facility] [address] [place] [address] 3rd Floor, [address] [place] [address] Franklin Jain MD [address] [place] [address] 07/27/2025 8:30 AM EST Appointment Non-Invasive Cardiology [address] [place] [address] [place] [address] Eyad Khoury MD [address] [place] [address] documented as of this encounter Visit Diagnoses Not on filedocumented in this encounter Care Teams Transport Tech Relationship Specialty Start Date End Date Kiesha Macedo MD [facility] [place], [place] PCP - General Internal Medicine 10/07/18 Samira Stroud MD [facility] [place], [place] [email or web address] Cardiology 07/13/20 documented as of this encounter Additional Source Comments The information contained in this document represents components of the legal health record. It is not the complete legal health record.[facility]
--- OUTSIDE RECORDS SUMMARY | 2025-04-28 18:02 | XMS_ITS | Encounter Summary ---
Author Organization [facility] Address [address] [place] [address] [place] [address] Phone Care Team Providers Care Bookkeeper Name Role Phone Kiesha Macedo MD Primary Care Provider [phone] Samira Stroud MD Unavailable Encounter Details Date Type Department Care Team (Late st Contact Info) Description 06/29/2020 Procedure Pass [facility] Periop [address] [place] [address] Social History Tobacco Use Types Packs/Day Years [...] 06/30/2020 7:00 AM Grazyna Vicente, JENNIFER * Stanley Suicide Severity Rating Scale (Screener/Recent Self-Report) Question [...] Info) Description 10/14/2024 Procedure Pass Non-Invasive Cardiology [address] [place] [address] [place] [address] 10/28/2024 Procedure Pass Non-Invasive Cardiology [address] [place] [address] [place] [address] 10/28/2024 Procedure Pass Non-Invasive Cardiology [address] [place] [address] [place] [address] 02/16/2025 Procedure Pass [facility] [address] [place] [address] 06/18/2025 1:30 PM EST Appointment [facility] [address] [place] [address] Franklin Jain MD [address] [place] [address], [address] [address] [email or web address] 07/27/2025 8:00 AM EST Office Visit [facility] [address] [place] [address] 3rd Floor, [address] [place] [address] Franklin Jain MD [address] [place] [address], [address] [address] 07/27/2025 8:30 AM EST Appointment Non-Invasive Cardiology [address] [place] [address] [place] [address] Eyad Khoury MD [address] [place] [address] documented as of this encounter Visit Diagnoses Not on filedocumented in this encounter Care Teams Bookkeeper Relationship Specialty Start Date End Date Kiesha Macedo MD [address] [place] [address] PCP - General Internal Medicine 10/07/18 Samira Stroud MD [facility] [place] [address] [email or web address] Cardiology 07/13/20 documented as of this encounter Additional Source Comments The information contained in this document represents components of the legal health record. It is not the complete legal health record.[facility]
--- OUTSIDE RECORDS SUMMARY | 2025-04-28 18:02 | XMS_ITS | Encounter Summary ---
Author Organization [facility] Address [address] [place] [address] Phone Care Team Providers Care Greek Professor Name Role Phone Kiesha Macedo MD Primary Care Provider [phone] Samira Stroud MD Unavailable [phone] Encounter Details Date Type Department Care Team (Late st Contact Info) Description 03/21/2021 Ancillary Orders Non-Invasive Cardiology [address] [place] [address] Jennifer Voss MD [address] [place] [phone] [email or web address] Complete heart block [...] Description 10/14/2024 Procedure Pass Non-Invasive Cardiology [address] [place] [address] 10/28/2024 Procedure Pass Non-Invasive Cardiology [address] [place] [id number] 10/28/2024 Procedure Pass Non-Invasive Cardiology [address] [place] [address] [place] [address] 02/16/2025 Procedure Pass Echo Lab [address] [place] [address] 06/18/2025 1:30 PM EST Appointment Echo Lab [address] [place] [address] Franklin Jain MD [address] [place] [address], [address] [place] [address] 07/27/2025 8:00 AM EST Office Visit [facility] [address] [place] [address] 3rd Floor, [address] [place] [address] Franklin Jain MD [address] [place] [address], [address] [place] [address] 07/27/2025 8:30 AM EST Appointment Non-Invasive Cardiology [address] [place] [address] [place] [address] Eyad Khoury MD [address] [place] [phone] documented as of this encounter Results * DEVICE CHECK: PPM IN-HOME INTERROGATION (03/21/2021 9:06 AM EDT) Narrative Jennifer Voss MD - 03/24/2021 11:04 AM EDT Reason for appointment: Remote pacemaker interrogation HPI: Routine 3 month remote pacemaker interrogation. No device related complaints. Indication for device: CHB. Examination: Device type: Pacemaker Senior [employer] Programmer: [employer] Mode: VVI LRL/UPL: 60/- bpm High [...] complete documented in this encounter Care Teams Greek Professor Relationship Specialty Start Date End Date Kiesha Macedo MD [address] [place] [phone] PCP - General Internal Medicine 10/07/18 Samira Stroud MD [address] [place] [address] [email or web address] Cardiology 07/13/20 documented as of this encounter Additional Source Comments The information contained in this document represents components of the legal health record. It is not the complete legal health record.[facility]
--- OUTSIDE RECORDS SUMMARY | 2025-04-28 18:02 | XMS_ITS | Encounter Summary ---
Author Organization [facility] Address [address] [place] [address] [place] [address] Phone Care Team Providers Care Orthoptist Name Role Phone Kiesha Macedo MD Primary Care Provider [phone] Samira Stroud MD Unavailable [phone] Encounter Details Date Type Department Care Team (Late st Contact Info) Description 07/03/2020 Procedure Pass [facility] Electrophysiology Lab [address] [place] [id number] Social History Tobacco Use Types Packs/Day Years [...] Description 10/14/2024 Procedure Pass Non-Invasive Cardiology [address] [place] [address] 10/28/2024 Procedure Pass Non-Invasive Cardiology [address] [place] [address] 10/28/2024 Procedure Pass Non-Invasive Cardiology [address] [place] [address] 02/16/2025 Procedure Pass Echo [facility] [address] [place] [address] 06/18/2025 1:30 PM EST Appointment Echo Lab [address] [place] [address] Franklin Jain MD [address] [place] [address], [address] [address] 07/27/2025 8:00 AM EST Office Visit [facility] [address] [place] [address] 3rd Floor, [address] [place] [address] Franklin Jain MD [address] [place] [address], [address] [address] 07/27/2025 8:30 AM EST Appointment Non-Invasive Cardiology [address] [place] [address] [place] [address] Eyad Khoury MD [address] [place] [phone] [email or web address] documented as of this encounter Visit Diagnoses Not on filedocumented in this encounter Care Teams Orthoptist Relationship Specialty Start Date End Date Kiesha Macedo MD [address] [place] [address] PCP - General Internal Medicine 10/07/18 Samira Stroud MD [address] [place] [address] [email or web address] Cardiology 07/13/20 documented as of this encounter Additional Source Comments The information contained in this document represents components of the legal health record. It is not the complete legal health record.[facility]
--- OUTSIDE RECORDS SUMMARY | 2025-04-28 18:02 | XMS_ITS | Encounter Summary ---
Author Organization [facility] Address [address] [place] [address] [place] [address] Phone Care Team Providers Care Software Business Analyst Name Role Phone Kiesha Macedo MD Primary Care Provider [phone] Samira Stroud MD Unavailable [phone] Encounter Details Date Type Department Care Team (Late st Contact Info) Description 07/02/2020 Procedure Pass [facility] Echocardiography [address] [place] [address] Social History Tobacco Use Types Packs/Day Years [...] Description 10/14/2024 Procedure Pass Non-Invasive Cardiology [address] [place] [address] 10/28/2024 Procedure Pass Non-Invasive Cardiology [address] [place] [address] 10/28/2024 Procedure Pass Non-Invasive Cardiology [address] [place] [address] 02/16/2025 Procedure Pass Echo Lab [place] [address] [place] [address] 06/18/2025 1:30 PM EST Appointment Echo Lab [address] [place] [address] Franklin Jain MD [address] [place] [address], [address] [address] 07/27/2025 8:00 AM EST Office Visit [facility] [address] [place] [address] 3rd Floor, [address] [place] [address] Franklin Jain MD [address] [place] [address], [address] [address] 07/27/2025 8:30 AM EST Appointment Non-Invasive Cardiology [address] [place] [address] [place] [address] Eyad Khoury MD [address] [place] [phone] [email or web address] documented as of this encounter Visit Diagnoses Not on filedocumented in this encounter Care Teams Software Business Analyst Relationship Specialty Start Date End Date Kiesha Macedo MD [address] [place] [address] PCP - General Internal Medicine 10/07/18 Samira Stroud MD [address] [place] [address] [email or web address] Cardiology 07/13/20 documented as of this encounter Additional Source Comments The information contained in this document represents components of the legal health record. It is not the complete legal health record.[facility]
--- OUTSIDE RECORDS SUMMARY | 2025-04-28 18:02 | XMS_ITS ---
Author Organization [facility] Care Team Providers Care Sewing Machine Operator Zipper Name Role Phone Cody, Ashleigh Moses Unavailable Unavailable Hailee Stoll Unavailable Unavailable Allergies and adverse reactions Code CodeSystem Substance Reaction Severity StartDate Concern Status 5489 RXNORM HYDROcodone Mild 04/25/2025 active Care Team Name Role Address Phone Organization Dates Ashleigh Ross [address] [facility] [address], [place], [address], [place] (Office): : [facility] 04/25/2025 - [place], [address], [place]Office[place] [facility] 04/25/2025 - present Encounters Encounter Type Code Code System Description Performer Discharge Disposition Service Delivery Location Date Ambulatory Encounter CPT Code = [id number] Acute pyelonephritis [place] Pending sale to [facility] Address: [address] [place], [address], [facility]. 04/25 Ambulatory Encounter CPT Code = [id number] Measurement of serum amino acid level Elvin Thrasher [facility] Address: [address] [place], [address], [facility]. 04/25 Ambulatory Encounter CPT Code = [id number] Upper respiratory tract infection caused by Influenza A [facility] Address: [address], [place], [address] [place] [address]. 04/25 Ambulatory Encounter CPT Code = [id number] Wedge fracture of thoracic vertebra [facility] Address: [facility] [address], [place], [address] [place] [address]. 04/25 Ambulatory Encounter CPT Code = [id number] Acute hypoxemic respiratory failure [facility] Address: [address], [place], [address], [facility]. 04/25 Ambulatory Encounter CPT Code = [address] Fall [facility] Address: [facility] [address], [place], [address] [place] [address]. 04/25 Ambulatory Encounter CPT Code = [address] Osteoporosis [facility] Address: [facility] [address], [place], [address], [facility]. 04/25 Ambulatory Encounter CPT Code = [id number] Chronic obstructive pulmonary disease [facility] Address: [facility] [address], [place], [address] [place] [address]. 04/25 Ambulatory Encounter CPT Code = [id number] Pressure injury of sacral region of back stage II [facility] Address: [address], [place], [address] [place] [address]. 04/25 Ambulatory Encounter CPT Code = [id number] Chronic kidney disease stage 3 [facility] Address: [facility] [address], [place], [address], [facility]. 04/25 Ambulatory Encounter CPT Code = [id number] Diverticulosis of large intestine without diverticulitis [facility] Address: [address], [place], [address] [place] [address]. 04/25 Ambulatory Encounter CPT Code = [id number] Atrial fibrillation [facility] Address: [address], [place], [address] [place] [address]. 04/25 Ambulatory Encounter CPT Code = [id number] Implantation of automatic cardiac defibrillator [facility] Address: [address], [place], [address] [place] [address]. 04/25 Ambulatory Encounter CPT Code = [id number] Central sleep apnea syndrome [facility] Address: [address] [place], [address]. 04/25 Ambulatory Encounter CPT Code = [id number] Heart failure [facility] Address: [address] [place], [address] [place] [address]. 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 04/25 Ambulatory Encounter CPT Code = [id number] Kidney stone [facility] Address: [facility], [address], [facility]. 04/25 Ambulatory Encounter CPT Code = [id number] Essential hypertension [facility] Address: [address] [place], [address]. 04/25 Ambulatory Encounter CPT Code = [id number] Hyperlipidemia [facility] Address: [address] [place], [address]. 04/25 Ambulatory Encounter CPT Code = [id number] Pulmonary hypertension [facility] Address: [address] [place], [address]. 04/25 Ambulatory Encounter CPT Code = [id number] Imaging of lung [facility] Address: [address], [place], [address], [facility]. 04/25 Ambulatory Encounter CPT Code = [id number] Simple goiter [facility] Address: [address], [place], [address], [facility]. 04/25 Ambulatory Encounter CPT Code = [id number] Obesity [facility] Address: [address], [place], [address], [facility]. 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 04/25 Goals Section Goals Description Status Target Date Ramona will Pressure ulcer wi ll show signs of healing and remain free from infection by/through review date. Active 07/24/2025 Ramona will be free from disc omfort or adverse reactions related to anticoagulant use through the review date. Active 07/24/2025 Ramona will be free from s/sx of dehydration as evidenced by good skin turgor, normal mucous membranes, vital signs within normal limits electrolytes within normal limits, adequate urinary output through the review date. Active 07/24/2025 Ramona will be free of any di scomfort or adverse side effects of antibiotic therapy through the review date. Active 07/24/2025 Ramona will be free of falls through the review d ate. Active 07/24/2025 Ramona will be free of s/sx o f respiratory infections through review date. Active 07/24/2025 Ramona will display optimal b reathing patterns daily through review date. Active 07/24/2025 Ramona will have no s/sx of p oor oxygen absorption through the review date. Active 07/24/2025 Ramona will not exhibit a dec line in psychosocial well-being or experience adverse effects during her isolation precaution time period due to Flu A. Active 07/24/2025 Ramona will not have an inter ruption in normal activities due to pain through the review date. Active 07/24/2025 Ramona will verbalize adequat e relief of pain or ability to cope with incompletely relieved pain through the review date. Active 07/24/2025 Ramona will verbalize an acce ptable level of comfort through the review date. Active 07/24/2025 Ramona wishes to return home with services through [facility] prior to next review date. Active 07/24/2025 Ramona's Advanced Directives will be honored thro [facility] next review Active 07/24/2025 Functional Status Code Name Recorded Time Value Entered By Chair/eyp-xr-xynpe transfer 04/28/2025 Dependent tadejare Does the resident use a wheelchair and/or scooter? 04/28/2025 Yes (qualifier value) tadejare Eating 04/27/2025 Setup or clean-up assistance casi Indicate the type of wheelch air or scooter used 04/28/2025 Independent tadejare Lower body dressing 04/28/2025 Dependent tadejare Lying to sitting on side of bed 04/28/2025 Dependent tadejare Oral hygiene 04/28/2025 Dependent tadejare Personal hygiene 04/28/2025 Dependent tadejare Putting on/taking off footwear 04/28/2025 Dependent tadejare Roll left and right 04/28/2025 Dependent tadejare Shower/bathe self 04/28/2025 Dependent tadejare Sit to lying 04/28/2025 Dependent tadejare Sit to stand 04/28/2025 Dependent tadejare Toilet transfer 04/28/2025 Dependent tadejare Toileting hygiene 04/28/2025 Dependent tadejare Transferring 04/27/2025 Not assessed walecentral Upper body dressing 04/28/2025 Dependent tadejare Walk 10 feet 04/28/2025 Dependent tadejare Walk 150 feet 04/28/2025 Not assessed tadejare Walk 50 feet 04/28/2025 Not assessed tadejare Wheel 150 feet 04/28/2025 Not assessed tadejare Wheel 50 feet with two turns 04/28/2025 Dependent tadejare Immunizations Immunization Status Vaccine Details Vaccine Code CodeSystem Date Notes PPSV23 completed pneumococcal polysaccharide vaccine, 23 valent 33 CVX created date: 04/26/2025 administere d date: 03/06/2018 Influenza-High Dose(Fluzone) completed created date: 04/26/2025 administere d date: 05/11/2024 Comirnaty Booster completed SARS-COV-2 (COVID-19) vaccine, mRNA, spike protein, LNP, preservative free, deja-sucrose, 30 mcg/0.3 mL dose 309 CVX created date: 04/26/2025 administere d date: 05/11/2024 Medications Section Medication Name Status Code CodeSystem Dose Route Frequency Admin Type Sig Text Start Date End Date Indication Atorvastati n Calcium Oral Tablet 80 MG active 48105 5 RXNORM 1 table t Oral one time a day Routin e Give 1 table t by mouth one time a day for To treat lower alison stero l 2024 - To treat lower cholesterol Carvedilol Oral Tablet 12.5 MG active 2 RXNORM 1 table t Oral two times a day Routin e Give 1 table t by mouth two times a day for To treat heart failu re 2024 - To treat heart failure Tamiflu Oral Capsule 30 MG aborted 69899 1 RXNORM 1 capsu le Oral two times a day Routin e Give 1 capsu le by mouth two times a day for To treat influ enzas type A 04/27 To treat influenzas type A oxyCODONE HCl Oral Tablet 5 MG active 35121 21 RXNORM 1 table t Oral as needed PRN Give 1 table t by mouth every 08 hours as neede d for pain 2024 - pain Omeprazole Oral Capsule Delayed Release 20 MG active 1 RXNORM 1 capsu le Oral two times a day Routin e Give 1 capsu le by mouth two times a day for To treat exces s stoma ch acids 2024 - To treat excess stomach acids Eliquis Oral Tablet 2.5 MG active 55732 41 RXNORM 1 table t Oral two times a day Routin e Give 1 table t by mouth two times a day for To preve nt strok e 2024 - To prevent stroke guaiFENesin Oral Syrup active 5 ml Oral as needed PRN Give 5 ml by mouth every 06 hours as neede d for cough 2024 - cough Cefuroxime Axetil Oral Tablet 250 MG aborted 90339 7 RXNORM 1 table t Oral two times a day Routin e Give 1 table t by mouth two times a day for To treat Bactr ia infec tions 04/27 To treat Bactria infections Potassium Chloride ER Oral Tablet Extended Release 20 MEQ active 6 RXNORM 1 table t Oral one time a day Routin e Give 1 table t by mouth one time a day for To treat Hypok alemi a 2024 - To treat Hypokalemia Zinc Gluconate Oral Capsule 50 MG active 86025 6 RXNORM 1 table t Oral one time a day Routin e Give 1 table t by mouth one time a day for Neede d for the body defen se syste ms 2024 - Needed for the body defense systems Vitamin D3 Oral Tablet active 400 unit Oral one time a day Routin e Give 400 unit by mouth one time a day for to treat bone healt h 2024 - to treat bone health Benzonatate Oral Capsule 100 MG active 7 RXNORM 1 capsu le Oral as needed PRN Give 1 capsu le by mouth every 08 hours as neede d for cough 2024 - cough Albuterol Sulfate HFA Inhalation Aerosol Solution 108 (90 Base) MCG/ACT active 65775 2 RXNORM 2 puff Inhala tion as needed PRN 2 puff inhal e orall y every 4 hours as neede d for short ness of breat h or wheez ing relat ed to CHRON IC OBSTR UCTIV E PULMO NARY DISEA SE, UNSPE CIFIE D (J44. 9) 2024 - shortness of breath or wheezing amLODIPine Besylate Oral Tablet 5 MG active 1 RXNORM 1 table t Oral one time a day Routin e Give 1 table t by mouth one time a day for To treat high blood press ure 2024 - To treat high blood pressure Fleet Enema Enema 7-19 GM/118ML active 71247 5 RXNORM 1 dose Rectal as needed PRN Inser t 1 dose recta lly every 08 hours as neede d for Const ipati on (Step 3) as neede d if no bowel movem ent for 8 hours after bisac odyl suppo sitor y. 2024 - Constipatio n Milk of Magnesia Suspension 400 MG/5ML active 88569 7 RXNORM 30 ml Oral as needed PRN Give 30 ml by mouth every 08 hours as neede d for Const ipati on (Step 1) As neede d if no bowel movem ent for three days. (Do not use for Hemod ialys is patie nts). 2024 - Constipatio n Acetaminoph en Tablet 325 MG active 99999 2 RXNORM 2 table t Oral as needed PRN Give 2 table t by mouth every 6 hours as neede d for Pain Pain Total dosag e for aceta minop hen and medic ation s that conta in aceta minop hen shoul d not excee d 3 grams / 24 hours . AND Give 2 table t by mouth every 6 hours as neede d for Fever great er than 100.0 F Total dosag e for aceta minop hen and medic ation s that conta in aceta minop hen shoul d not excee d 3 grams / 24 hours . 2024 - Pain 97848 2 RXNORM 2 table t Oral as needed PRN Give 2 table t by mouth every 6 hours as neede d for Pain Pain Total dosag e for aceta minop hen and medic ation s that conta in aceta minop hen shoul d not excee d 3 grams / 24 hours . AND Give 2 table t by mouth every 6 hours as neede d for Fever great er than 100.0 F Total dosag e for aceta minop hen and medic ation s that conta in aceta minop hen shoul d not excee d 3 grams / 24 hours . 2024 - Fever greater than 100.0F Bisacodyl Suppository 10 MG active 9 RXNORM 1 suppo sitor y Rectal as needed PRN Inser t 1 suppo sitor y recta lly every 08 hours as neede d for If no bowel movem ent for 8 hours after Milk of Magne cynthia 2024 - If no bowel movement for 8 hours after Milk of Magnesia Ammonium Lactate External Cream 12 % active 78844 0 RXNORM n/a n/a Topica l two times a day Routin e Apply to Apply Topic ally topic ally two times a day for To treat dry and rough skin 2024 - To treat dry and rough skin Anoro Ellipta Inhalation Aerosol Powder Breath Activated 62.5-25 MCG/ACT active 06911 24 RXNORM 1 inhal ation Inhala tion one time a day Routin e 1 inhal ation inhal e orall y one time a day for To treat COPD relat ed to CHRON IC OBSTR UCTIV E PULMO NARY DISEA SE, UNSPE CIFIE D (J44. 9) 2024 - To treat COPD Lisinopril Oral Tablet 5 MG active 86277 4 RXNORM 1 table t Oral two times a day Routin e Give 1 table t by mouth two times a day for To treat High blood press ure 2024 - To treat High blood pressure Vitamin C Oral Tablet 500 MG active 1 table t Oral one time a day Routin e Give 1 table t by mouth one time a day for Help the body to treat wound s 2024 - Help the body to treat wounds DuoNeb Solution 0.5-2.5 (3) MG/3ML active 74482 04 RXNORM 1 vial Inhala tion every 6 hours Routin e 1 vial inhal e orall y via nebul izer every 6 hours for SOB/A bnorm al lung sound s for 7 Days RIZWAN = Clear lung sound s A DV = Adven titio us D IMI = Dimin ished 05/04 SOB/Abnorma l lung sounds Sodium Chloride Intravenous Solution 0.9 % active 13995 27 RXNORM 1 liter Intrav enous one time only One Time Only Use 1 liter intra venou sly one time only for dehyd ratio n for 1 Day infus e 1 liter NS at 80 cc/hr 04/29 dehydration Insurance Providers Plan of Treatment Section Interventions Intervention Code Code System Display Name Proposed D ate Problems Problem # Description Date of onset Resolved Date Code CodeSystem Concern Status 1 ABNORMAL FINDINGS OF BLOOD AMINO-ACID LEVEL [address] active 2 ACUTE PYELONEPHRITIS [address] active 3 ACUTE RESPIRATORY FAILURE WITH HYPOXIA [address] active 4 AGE-RELATED OSTEOPOROSIS WITHOUT CURRENT PATHOLOGICAL FRACTURE [address] active 5 CALCULUS OF KIDNEY [address] active 6 CHRONIC KIDNEY DISEASE, STAGE 3 UNSPECIFIED [address] active 7 CHRONIC OBSTRUCTIVE PULMONARY DISEASE, UNSPECIFIED [address] active 8 DIVERTICULOSIS OF LARGE INTESTINE WITHOUT PERFORATION OR ABSCESS WITHOUT BLEEDING [address] active 9 ESSENTIAL (PRIMARY) HYPERTENSION [address] active 10 HEART FAILURE, UNSPECIFIED [address] active 11 HISTORY OF FALLING [address] active 12 HYPERLIPIDEMIA, UNSPECIFIED [address] active 13 INFLUENZA DUE TO IDENTIFIED NOVEL INFLUENZA A VIRUS WITH OTHER RESPIRATORY MANIFESTATIONS [address] active 14 NONTOXIC GOITER, UNSPECIFIED [address] active 15 OBESITY, UNSPECIFIED [address] active 16 OTHER NONSPECIFIC ABNORMAL FINDING OF LUNG FIELD [address] active 17 PRESENCE OF AUTOMATIC (IMPLANTABLE) CARDIAC DEFIBRILLATOR [address] active 18 PRESENCE OF XENOGENIC HEART VALVE [address] active 19 PRESSURE ULCER OF SACRAL REGION, STAGE [address] active 20 PULMONARY HYPERTENSION, UNSPECIFIED [address] active 21 SLEEP APNEA, UNSPECIFIED [address] active 22 UNSPECIFIED ATRIAL FIBRILLATION [address] active 23 WEDGE COMPRESSION FRACTURE OF T9-T10 VERTEBRA, SUBSEQUENT ENCOUNTER FOR FRACTURE WITH ROUTINE HEALING [address] active Reason for Referral No Reasons for Referral Entered Social History Social History Observation Description Start Date End Date Code Code System Current Smoking Status Tobacco smoking consumption unknown 970788903 SNOMED CT Sex Assigned At Female 1940 [address]-3 [facility] Gender Identity Sexual Orientation Vital Signs Code Code System Vitals Name Values and Units Timing Information 8462-4 [facility] Blood Pressure-Diastolic Value=58 Un its=mmHg 04/28/2025 8480-6 [facility] Blood Pressure-Systolic Hfnrb=881 Un its=mmHg 04/28/2025 8867-4 [facility] Heart rate Value=68.0 Units=/min 9279-1 [facility] Respiratory Rate Value=18.0 Units=/m in 04/28/2025 8310-5 [facility] Body Temperature Value=97.5 Units= F 04/28/2025 62540-9 [facility] O2 % BldC Oximetry Value=92.0 Units= % 04/28/2025 72509-4 [facility] Pain Level Value=0.0 04/28/2025 8302-2 [facility] Height Value=63.0 Units=Inches 04/26/2025 81808-2 [facility] Weight Tlacj=479.4 Units=Lbs
--- OUTSIDE RECORDS SUMMARY | 2025-04-28 18:02 | XMS_ITS | Clinical Summary ---
Author Organization [facility] Facility Address [address] [address] Care Team Providers Care Database Reporting Consultant Name Role Phone Kiesha Macedo MD Primary Care Provider [phone] Social History Tobacco Use Types Packs/Day Years [...] age to complete this topic Insurance Medicare [facility] Medicare [facility] Care Teams Database Reporting Consultant Relationship Specialty Start Date End Date Kiesha Macedo MD [address] [place], [place] PCP - General Internal Medicine 08/29/22
--- OUTSIDE RECORDS SUMMARY | 2025-04-28 18:02 | XMS_ITS | Encounter Summary ---
Author Organization [facility] Address [address] [place] [address] [place] [address] Phone Care Team Providers Care Woods Laborer Name Role Phone Kiesha Macedo MD Primary Care Provider [phone] Samira Stroud MD Unavailable [phone] Encounter Details Date Type Department Care Team (Late st Contact Info) Description 12/12/2020 Procedure Pass [facility] [place] [address] [place] [address] Social History Tobacco Use Types Packs/Day Years [...] Description 10/14/2024 Procedure Pass Non-Invasive Cardiology [address] [place] [address] 10/28/2024 Procedure Pass Non-Invasive Cardiology [address] [place] [address] 10/28/2024 Procedure Pass Non-Invasive Cardiology [address] [place] [address] 02/16/2025 Procedure Pass [facility] [address] [place] [address] 06/18/2025 1:30 PM EST Appointment Echo Lab [address] [place] [address] Franklin Jain MD [address] [place] [address], [address] [address] 07/27/2025 8:00 AM EST Office Visit [facility] [address] [place] [address] 3rd Floor, [address] [place] [address] Franklin Jain MD [address] [place] [address], [address] [address] 07/27/2025 8:30 AM EST Appointment Non-Invasive Cardiology [address] [place] [address] Eyad Khoury MD [address] [place] [address] [email or web address] documented as of this encounter Visit Diagnoses Not on filedocumented in this encounter Care Teams Woods Laborer Relationship Specialty Start Date End Date Kiesha Macedo MD [address] [place] [address] PCP - General Internal Medicine 10/07/18 Samira Stroud MD [address] [place] [address] [email or web address] 07/13/20 documented as of this encounter Additional Source Comments The information contained in this document represents components of the legal health record. It is not the complete legal health record.[facility]
--- OUTSIDE RECORDS SUMMARY | 2025-04-28 18:02 | XMS_ITS | Encounter Summary ---
Author Organization [facility] Address [address] [facility] [address] [place] [address] Phone Care Team Providers Care Rn Cvor Name Role Phone Kiesha Macedo MD Primary Care Provider [phone] Samira Stroud MD Unavailable [phone] Encounter Details Date Type Department Care Team (Late st Contact Info) Description 10/07/2024 Procedure Pass [facility] [address] [place] [address] Social History Tobacco Use Types Packs/Day Years [...] 1:44 PM EDT Katerina Foster RN * [place] Suicide Severity Rating Scale (Screener/Recent Self-Report) Question [...] Description 10/14/2024 Procedure Pass Non-Invasive Cardiology [address] [place] [address] 10/28/2024 Procedure Pass Non-Invasive Cardiology [address] [place] [address] 10/28/2024 Procedure Pass Non-Invasive Cardiology [address] [place] [address] 02/16/2025 Procedure Pass Echo Lab [address] [place] [address] 06/18/2025 1:30 PM EST Appointment Echo Lab [address] [place] [address] Franklin Jain MD [address] [place] [address], [address] [place] [address] 07/27/2025 8:00 AM EST Office Visit [facility] [address] [place] [address] 3rd Floor, [address] [place] [address] Franklin Jain MD [address] [place] [address], [address] [address] 07/27/2025 8:30 AM EST Appointment Non-Invasive Cardiology [address] [place] [address] [place] [address] Eyad Khoury MD [address] [place] [address] documented as of this encounter Visit Diagnoses Not on filedocumented in this encounter Care Teams Rn Cvor Relationship Specialty Start Date End Date Kiesha Macedo MD [facility] [place], [place] PCP - General Internal Medicine 10/07/18 Samira Stroud MD [facility] [place], [place] [email or web address] Cardiology 07/13/20 documented as of this encounter Additional Source Comments The information contained in this document represents components of the legal health record. It is not the complete legal health record.[facility]
--- OUTSIDE RECORDS SUMMARY | 2025-04-28 18:02 | XMS_ITS | Encounter Summary ---
Author Organization [facility] Address [address] [place] [address] [place] [address] Phone Care Team Providers Care Vice President Safety Name Role Phone Kiesha Macedo MD Primary Care Provider [phone] Samira Stroud MD Unavailable [phone] Encounter Details Date Type Department Care Team (Late st Contact Info) Description 11/14/2020 Procedure Pass Non-Invasive Cardiology [address] [place] [address] Social History Tobacco Use Types Packs/Day Years [...] Description 10/14/2024 Procedure Pass Non-Invasive Cardiology [address] [place] [address] 10/28/2024 Procedure Pass Non-Invasive Cardiology [address] [place] [address] 10/28/2024 Procedure Pass Non-Invasive Cardiology [address] [place] [address] 02/16/2025 Procedure Pass [facility] [address] [place] [address] 06/18/2025 1:30 PM EST Appointment Echo Lab [address] [place] [address] Franklin Jain MD [address] [place] [address], [address] [address] 07/27/2025 8:00 AM EST Office Visit [facility] [address] [place] [address] 3rd Floor, [address] [place] [address] Franklin Jain MD [address] [place] [address], [address] [address] 07/27/2025 8:30 AM EST Appointment Non-Invasive Cardiology [address] [place] [address] Eyad Khoury MD [address] [place] [address] [email or web address] documented as of this encounter Visit Diagnoses Not on filedocumented in this encounter Care Teams Vice President Safety Relationship Specialty Start Date End Date Kiesha Macedo MD [address] [place] [address] PCP - General Internal Medicine 10/07/18 Samira Stroud MD [address] [place] [address] [email or web address] Cardiology 07/13/20 documented as of this encounter Additional Source Comments The information contained in this document represents components of the legal health record. It is not the complete legal health record.[facility]
--- OUTSIDE RECORDS SUMMARY | 2025-04-28 18:02 | XMS_ITS | Encounter Summary ---
Author Organization [facility] Address [address] [place] [address] [place] [address] Phone Care Team Providers Care Net Architect Name Role Phone Kiesha Macedo MD Primary Care Provider [phone] Samira Stroud MD Unavailable [phone] Encounter Details Date Type Department Care Team (Late st Contact Info) Description 09/10/2024 Procedure Pass [facility] [address] [place] [address] Social History Tobacco Use Types Packs/Day Years [...] Info) Description 10/14/2024 Procedure Pass Non-Invasive Cardiology [address] [place] [address] [place] [address] 10/28/2024 Procedure Pass Non-Invasive Cardiology [address] [place] [address] 10/28/2024 Procedure Pass Non-Invasive Cardiology [address] [place] [address] [place] [address] 02/16/2025 Procedure Pass Echo Lab [address] [place] [address] 06/18/2025 1:30 PM EST Appointment Echo Lab [address] [place] [address] Franklin Jain MD [address] [place] [address], [address] [address] [email or web address] 07/27/2025 8:00 AM EST Office Visit [facility] [address] [place] [address] 3rd Floor, [address] [place] [address] Franklin Jain MD [address] [place] [address], [address] [address] 07/27/2025 8:30 AM EST Appointment Non-Invasive [place] [address] Eyad Khoury MD [address] [place] [address] documented as of this encounter Visit Diagnoses Not on filedocumented in this encounter Care Teams Net Architect Relationship Specialty Start Date End Date Kiesha Macedo MD [address] [place], [place] PCP - General Internal Medicine 10/07/18 Samira Stroud MD [address] [place], [place] [email or web address] Cardiology 07/13/20 documented as of this encounter Additional Source Comments The information contained in this document represents components of the legal health record. It is not the complete legal health record.[facility]
--- OUTSIDE RECORDS SUMMARY | 2025-04-28 18:02 | XMS_ITS | Encounter Summary ---
Author Organization [facility] Address [address] [place] [address] [place] [address] Phone Care Team Providers Care Design Engineer Name Role Phone Kiesha Macedo MD Primary Care Provider [phone] Samira Stroud MD Unavailable [phone] Encounter Details Date Type Department Care Team (Late st Contact Info) Description 09/14/2024 Procedure Pass Non-Invasive Cardiology [address] [place] [address] Social History Tobacco Use Types Packs/Day Years [...] Description 10/14/2024 Procedure Pass Non-Invasive Cardiology [address] [place] [address] 10/28/2024 Procedure Pass Non-Invasive Cardiology [address] [place] [address] 10/28/2024 Procedure Pass Non-Invasive Cardiology [address] [place] [address] [place] [address] 02/16/2025 Procedure Pass Echo Lab [address] [place] [address] 06/18/2025 1:30 PM EST Appointment Echo Lab [address] [place] [address] Franklin Jain MD [address] [place] [address], [address] [address] 07/27/2025 8:00 AM EST Office Visit [facility] [address] [place] [address] 3rd Floor, [address] [place] [address] Franklin Jain MD [address] [place] [address], [address] [address] 07/27/2025 8:30 AM EST Appointment Non-Invasive Cardiology [address] [place] [address] [place] [address] Eyad Khoury MD [address] [place] [address] documented as of this encounter Visit Diagnoses Not on filedocumented in this encounter Care Teams Design Engineer Relationship Specialty Start Date End Date Kiesha Macedo MD [address] [place], [place] PCP - General Internal Medicine 10/07/18 Samira Stroud MD [address] [place], [place] [email or web address] Cardiology 07/13/20 documented as of this encounter Additional Source Comments The information contained in this document represents components of the legal health record. It is not the complete legal health record.[facility]
--- OUTSIDE RECORDS SUMMARY | 2025-04-28 18:02 | XMS_ITS | Encounter Summary ---
Author Organization [facility] Address [address] [place] [address] [place] [address] Phone Care Team Providers Care Mess Cook Name Role Phone Kiesha Macedo MD Primary Care Provider [phone] Samira Stroud MD Unavailable [phone] Encounter Details Date Type Department Care Team (Late st Contact Info) Description 03/21/2021 Procedure Pass Non-Invasive Cardiology [address] [place] [address] Social History Tobacco Use Types Packs/Day Years [...] Description 10/14/2024 Procedure Pass Non-Invasive Cardiology [address] [place] [address] 10/28/2024 Procedure Pass Non-Invasive Cardiology [address] [place] [address] 10/28/2024 Procedure Pass Non-Invasive Cardiology [address] [place] [address] 02/16/2025 Procedure Pass Echo Lab [address] [place] [address] 06/18/2025 1:30 PM EST Appointment Echo Lab [address] [place] [address] Franklin Jain MD [address] [place] [address], [address] [address] 07/27/2025 8:00 AM EST Office Visit [facility] [address] [place] [address] 3rd Floor, [address] [place] [address] Franklin Jain MD [address] [place] [address], [address] [address] 07/27/2025 8:30 AM EST Appointment Non-Invasive Cardiology [address] [place] [address] Eyad Khoury MD [address] [place] [address] [email or web address] documented as of this encounter Visit Diagnoses Not on filedocumented in this encounter Care Teams Mess Cook Relationship Specialty Start Date End Date Kiesha Macedo MD [address] [place] [address] PCP - General Internal Medicine 10/07/18 Samira Stroud MD [address] [place] [address] [email or web address] Cardiology 07/13/20 documented as of this encounter Additional Source Comments The information contained in this document represents components of the legal health record. It is not the complete legal health record.[facility]
--- OUTSIDE RECORDS SUMMARY | 2025-04-28 18:02 | XMS_ITS | Encounter Summary ---
Author Organization [facility] Address [address] [place] [address] [place] [address] Phone Care Team Providers Care Horse Racing Manager Name Role Phone Kiesha Macedo MD Primary Care Provider [phone] Samira Stroud MD Unavailable [phone] Encounter Details Date Type Department Care Team (Late st Contact Info) Description 08/21/2024 Procedure Pass [facility] [place] [address] [place] [id number] Social History Tobacco Use Types Packs/Day Years [...] Description 10/14/2024 Procedure Pass Non-Invasive Cardiology [address] [place] [address] 10/28/2024 Procedure Pass Non-Invasive Cardiology [address] [place] [address] 10/28/2024 Procedure Pass Non-Invasive Cardiology [address] [place] [address] 02/16/2025 Procedure Pass Echo Lab [address] [place] [address] 06/18/2025 1:30 PM EST Appointment Echo Lab [address] [place] [address] Franklin Jain MD [address] [place] [address], [address] [place] [address] 07/27/2025 8:00 AM EST Office Visit [facility] [address] [place] [address] 3rd Floor, [address] [place] [address] Franklin Jain MD [address] [place] [address], [address] [address] 07/27/2025 8:30 AM EST Appointment Non-Invasive Cardiology [address] [place] [address] [place] [address] Eyad Khoury MD [address] [place] [address] documented as of this encounter Visit Diagnoses Not on filedocumented in this encounter Care Teams Horse Racing Manager Relationship Specialty Start Date End Date Kiesha Macedo MD [facility] [place], [place] PCP - General Internal Medicine 10/07/18 Samira Stroud MD [facility] [place], [place] [email or web address] Cardiology 07/13/20 documented as of this encounter Additional Source Comments The information contained in this document represents components of the legal health record. It is not the complete legal health record.[facility]
--- OUTSIDE RECORDS SUMMARY | 2025-04-28 18:02 | XMS_ITS | Encounter Summary ---
Author Organization [facility] Address [address] [facility] [address] [place] [address] Phone Care Team Providers Care Ceramic Tiler Name Role Phone Kiesha Macedo MD Primary Care Provider [phone] Samira Stroud MD Unavailable [phone] Encounter Details Date Type Department Care Team (Late st Contact Info) Description 10/14/2024 Procedure Pass Non-Invasive Cardiology [address] [place] [address] Social History Tobacco Use Types Packs/Day Years [...] Description 10/14/2024 Procedure Pass Non-Invasive Cardiology [address] [place] [address] 10/28/2024 Procedure Pass Non-Invasive Cardiology [address] [place] [address] 10/28/2024 Procedure Pass Non-Invasive Cardiology [address] [place] [address] 02/16/2025 Procedure Pass Echo Lab [place] [address] 06/18/2025 1:30 PM EST Appointment Echo Lab [address] [place] [address] Franklin Jain MD [address] [place] [address], [address] [place] [address] 07/27/2025 8:00 AM EST Office Visit [facility] [address]rd Floor, [address] [place] [address] Franklin Jain MD [address] [facility], [address] [place] [address] 07/27/2025 8:30 AM EST Appointment Non-Invasive Cardiology [address] [place] [address] Eyad Khoury MD [address] [place] [address] [email or web address] documented as of this encounter Visit Diagnoses Not on filedocumented in this encounter Care Teams Ceramic Tiler Relationship Specialty Start Date End Date Kiesha Macedo MD [address] [place] [address] PCP - General Internal Medicine 10/07/18 Samira Stroud MD [address] [place] [address] [email or web address] Cardiology 07/13/20 documented as of this encounter Additional Source Comments The information contained in this document represents components of the legal health record. It is not the complete legal health record.[facility]
--- OUTSIDE RECORDS SUMMARY | 2025-04-28 18:02 | XMS_ITS | Encounter Summary ---
Author Organization [facility] Address [address] [place] [address] [place] [address] Phone Care Team Providers Care Client Project Coordinator Name Role Phone Kiesha Macedo MD Primary Care Provider [phone] Samira Stroud MD Unavailable [phone] Encounter Details Date Type Department Care Team (Late st Contact Info) Description 07/04/2020 Procedure Pass [facility] Electrophysiology Lab [address] [place] [address] Social History Tobacco Use Types Packs/Day Years [...] Description 10/14/2024 Procedure Pass Non-Invasive Cardiology [address] [place] [address] 10/28/2024 Procedure Pass Non-Invasive Cardiology [address] [place] [address] 10/28/2024 Procedure Pass Non-Invasive Cardiology [address] [place] [address] 02/16/2025 Procedure Pass Echo Lab [address] [place] [address] 06/18/2025 1:30 PM EST Appointment Echo Lab [address] [place] [address] Fraknlin Jain MD [address] [place] [address], [address] [address] 07/27/2025 8:00 AM EST Office Visit [facility] [address] [place] [address] 3rd Floor, [address] [place] [address] Franklin Jain MD [address] [place] [address], [address] [address] 07/27/2025 8:30 AM EST Appointment Non-Invasive Cardiology [address] [place] [address] [place] [address] Eyad Khoury MD [address] [place] [address] [email or web address] documented as of this encounter Visit Diagnoses Not on filedocumented in this encounter Care Teams Client Project Coordinator Relationship Specialty Start Date End Date Kiesha Macedo MD [address] [place] [address] PCP - General Internal Medicine 10/07/18 Samira Stroud MD [address] [place] [address] [email or web address] Cardiology 07/13/20 documented as of this encounter Additional Source Comments The information contained in this document represents components of the legal health record. It is not the complete legal health record.[facility]
--- OUTSIDE RECORDS SUMMARY | 2025-04-28 18:02 | XMS_ITS | Encounter Summary ---
Author Organization [facility] Address [address] [facility] [address] [place] [address] Phone Care Team Providers Care Cured Meats Supervisor Name Role Phone Kiesha Macedo MD Primary Care Provider [phone] Samira Stroud MD Unavailable [phone] Encounter Details Date Type Department Care Team (Late st Contact Info) Description 04/27/2025 Telephone [facility] [address] [place] [address] 3rd Floor, [address] [place] [address] Franklin Jain MD [address] [facility], [address] [place] [address] [email or web address] Social History Tobacco [...] enough money to get more. Never True 05/07/202 5 Residential Stability Answer Date Recor ded What is your housing situation today? I have rebeka hernandez 10/07/2024 How many times have you move [...] on file documented as of this encounter Progress Notes * Yessi Brooks MA - 04/28/2025 8:33 AM EST Images from the original note were not included. Franklin Jain MD to Kathie Oliveros 04/27/25 11:01 PM Yes that is very appropriate. Please make sure she has an appointment with someone here in our office to review that hospital stay. Thanks Spoke with pts grandchild, she was just transferred to short term rehab and will need a few days toregain her strength. He will call back once she is feeling better and schedule a hospital fuv with an APC * Kathie Oliveros - 04/27/2025 11:09 AM EST Pt grandchild called in to inform Dr. Jain that during a recent [facility], she was taken off her Warfrin and put on Eliquis. Pt was hospitalized high INR levels. Pt grandchild would like to inquire if this is okay for PT to continue. documented in this encounter Plan of Treatment Upcoming Encounters Date Type Department Care Team (Late st Contact Info) Description 10/14/2024 Procedure Pass Non-Invasive Cardiology [address] [place] [address] [place] [address] 10/28/2024 Procedure Pass Non-Invasive Cardiology [address] [place] [address] [place] [address] 10/28/2024 Procedure Pass Non-Invasive Cardiology [address] [place] [address] [place] [address] 02/16/2025 Procedure Pass Echo [facility] [address] [place] [address] 06/18/2025 1:30 PM EST Appointment [place] [address] Franklin Jain MD [address] [place] [address], [address] [address] 07/27/2025 8:00 AM EST Office Visit [facility] [address] [place] [address] 3rd Floor, [address] [place] [address] Franklin Jain MD [address] [place] [address], [address] [address] 07/27/2025 8:30 AM EST Appointment Non-Invasive Cardiology [address] [place] [address] [place] [address] Eyad Khoury MD [address] [place] [address] [email or web address] documented as of this encounter Visit Diagnoses Not on filedocumented in this encounter Care Teams Cured Meats Supervisor Relationship Specialty Start Date End Date Kiesha Macedo MD [address] [place] [address] PCP - General Internal Medicine 10/07/18 Samira Stroud MD [address] [place] [address] [email or web address] Cardiology 07/13/20 documented as of this encounter Additional Source Comments The information contained in this document represents components of the legal health record. It is not the complete legal health record.[facility]
--- OUTSIDE RECORDS SUMMARY | 2025-04-28 18:02 | XMS_ITS | Encounter Summary ---
Author Organization [facility] Address [address] [place] [address] Phone Care Team Providers Care Business Analytics Faculty Member Name Role Phone Kiesha Macedo MD Primary Care Provider [phone] Samira Stroud MD Unavailable [phone] Encounter Details Date Type Department Care Team (Late st Contact Info) Description 03/21/2021 Ancillary Orders [facility] [address] 3rd Floor, [address] [place], [place] [phone] Jennifer Voss MD [address] [place] [phone] [email or web address] Social History Tobacco Use Types Packs/Day [...] Description 10/14/2024 Procedure Pass Non-Invasive Cardiology [address] [place] [address] 10/28/2024 Procedure Pass Non-Invasive Cardiology [address] [place] [address] 10/28/2024 Procedure Pass Non-Invasive Cardiology [address] [place] [address] 02/16/2025 Procedure Pass Echo Lab [address] [place] [address] 06/18/2025 1:30 PM EST Appointment Echo Lab [address] [place] [address] Franklin Jain MD [address] [place] [address], [address] [place] [address] [email or web address] 07/27/2025 8:00 AM EST Office Visit [facility] [address] [place] [address] 3rd Floor, [address] [place] [address] Franklin Jain MD [address] [place] [address] 07/27/2025 8:30 AM EST Appointment Non-Invasive Cardiology [address] [place] [address] [place] [address] Eyad Khoury MD [address] [place] [address] documented as of this encounter Visit Diagnoses Not on filedocumented in this encounter Care Teams Business Analytics Faculty Member Relationship Specialty Start Date End Date Kiesha Macedo MD [facility] [place], [place] PCP - General Internal Medicine 10/07/18 Samira Stroud MD [facility] [place], [place] [email or web address] Cardiology 07/13/20 documented as of this encounter Additional Source Comments The information contained in this document represents components of the legal health record. It is not the complete legal health record.[facility]
[2025-04-28 18:10] LABS: INTERNATIONAL NORM RATIO 5.7 (0.9-1.1)
--- NOTE | 2025-04-28 18:10 | PC.NURSE ---
critical INR level of 5.7 received at this time - Dr. Treviño notified/aware - no new orders at this time.
[2025-04-28 18:16] LABS: Alanine Aminotransferase 23 U/L (0-31); Albumin Level 2.8 g/dL (3.5-5.0); Alkaline Phosphatase 141 U/L (39-117); Anion Gap 11 (12-20); Aspartate Amino Transferase 54 U/L (5-31); Blood Urea Nitrogen 50 mg/dL (9-16); Calcium 8.4 mg/dL (8.4-10.2); Carbon Dioxide 29 mmol/L (22-29); Chloride 104 mmol/L (96-108); Creatinine Clr Calc Pharmacy 27.5; Estimated Glomerular Filt Rate 39; Potassium 5.0 mmol/L (3.3-5.1); Sodium 139 mmol/L (135-145); Total Protein 5.4 g/dL (6.5-8.0)
[2025-04-28 18:17] LABS: Resp Syncy Virus RNA Qual PCR NEGATIVE (Negative); SARS COV2 PCR INHOUSE NEGATIVE (Negative)
--- NOTE | 2025-04-28 18:40 | PC.NURSE ---
delay in lasix administration as patient remains hypotensive. albumin infusing per provider order. effectiveness pending.
[2025-04-28] MEDS: Albumin Human 25 % 50 ML 100 ML IV ×2 (18:51→19:55)
[2025-04-28 19:18] LABS: Troponin-I High Sensitivity 31.9 ng/L (<3.5-17.0)
--- NOTE | 2025-04-28 19:22 | PC.NURSE ---
Assumed care of pt at 1900. Pt resting with family at the bedside. On high flow 30% O2, 30L, O2 sat 97%. Tolerating well. Productive cough noted with difficulty clearing secretions. NSR on monitor with HR 70's. Reports no pain or discomfort at this time. Multiple bruising noted throughout the body. With several skin tears on upper extremities. Skin tears cleansed and dry dressing applied. Monitoring is ongoing.
--- NOTE | 2025-04-28 22:29 | PM.IMHP ---
History of Present Illness Date of Service: 04/28/25 Attending physician on admission: Vipul Vega Chief Complaint: [facility] Medical History HFrEF (heart failure with reduced ejection fraction) Chronic atrial fibrillation Chronic anticoagulation Obesity CKD (chronic kidney disease) stage 3, GFR 30-59 ml/min Nephrolithiasis, uric acid Hyperlipidemia HTN (hypertension) A-fib GORDON (obstructive sleep apnea) COPD (chronic obstructive pulmonary disease) Pulmonary HTN Severe mitral regurgitation Thiamine deficiency Osteoporosis Family History Father No problems noted. Mother No problems noted. Maternal Aunt Breast cancer Surgical History Hx of hernia repair History of open reduction and internal fixation (ORIF) procedure Social History Household Members: Significant Other Housing: House Do you presently have visiting nurse or other home services: Yes Alcohol intake: never Patient Tobacco Use Status: Former Tobacco user Tobacco use type: Cigarette Smoked in Last 30 Days: No e-Cigarette/Vaping Use: Never Used Second Hand Smoke Exposure: No Use of substances other than those prescribed or required for medical reasons: No Advance Directives: Yes Advance Directives on File: Yes Advance Directives Date on File: 11/28/23 Do you have a plan to hurt others: No Plan service: No Current occupational status: retired Cognitive needs: No Hearing needs: No Vision needs: No Meds Allergies Allergy/AdvReac Type Severity Reaction Status Date / Time hydrocodone (From Vicodin) Allergy Mild CHEST PAIN Verified 04/28/25 17:16 Active Medications: Current Medications Acetaminophen (Acetaminophen 325 Mg Tablet) 650 mg PO Q6H PRN PRN Reason: Pain, Mild 1-3,fever,headache Albuterol/Ipratropium (Albuterol/Iprat 2.5/0.5mg 3 Ml Ampul.Neb) 3 ml INHALE Q4H PRN PRN Reason: Shortness of Breath/Wheezing Calcium Carbonate (Calcium Carbonate 750 Mg Tab.Chew) 750 mg PO Q4H PRN PRN Reason: Heartburn Doxycycline Monohydrate (Doxycycline Monohydrate 100 Mg Capsule) 100 mg PO BID [facility] Stop: 05/06/25 09:00 Magnesium Hydroxide (Milk Of Magnesia 30 Ml Oral.Susp) 30 ml PO DAILY PRN PRN Reason: Constipation Melatonin (Melatonin 3 Mg Tablet) 6 mg PO BEDTIME PRN PRN Reason: Insomnia Ondansetron HCl (Ondansetron Hcl 4 Mg/2 Ml Vial) 4 mg IVPUSH Q8H PRN PRN Reason: Nausea and Vomiting Polyethylene Glycol (Polyethylene Glycol 3350 17 Gm Powd.Pack) 17 gm PO DAILY PRN PRN Reason: Constipation Senna (Sennosides 8.6 Mg Tablet) 17.2 mg PO BEDTIME VIOLETA Sodium Chloride (0.9 % Sodium Chloride Flush 3 Ml Syringe) 3 ml IVFLUSH QSHIFT [facility] Home Medications ?Medication ?Instructions ?Recorded ?Confirmed ?Last Taken ?Type ascorbate calcium (vitamin C) 500 500 mg PO DAILY 01/04/23 04/16/25 04/15/25 History mg tablet ooxddbbqzqxc-Ai-uggm-minerals 1 tab PO DAILY 01/04/23 04/16/25 12/07/24 History zinc gluconate 50 mg tablet 50 mg PO DAILY 01/04/23 04/16/25 12/07/24 History acetaminophen 325 mg capsule 650 mg PO Q8H PRN Pain 01/20/24 04/15/25 Unknown History amiodarone 200 mg tablet 200 mg PO DAILY 07/27/24 04/15/25 04/15/25 History omeprazole 20 mg capsule,delayed 20 mg PO BID@0630,1630 12/07/24 04/15/25 04/15/25 History release thiamine HCl (vitamin B1) 100 mg 100 mg PO DAILY 01/12/25 04/16/25 Unknown History capsule amlodipine 5 mg tablet 5 mg PO DAILY 04/15/25 04/15/25 04/15/25 History carvedilol 12.5 mg tablet 12.5 mg PO BID 04/15/25 04/15/25 04/15/25 History furosemide 40 mg tablet (Lasix) 40 mg PO BID 04/15/25 04/16/25 Unknown History umeclidinium 62.5 mcg-vilanterol 1 inh inhalation DAILY 04/15/25 04/15/25 History 25 mcg/actuation powdr for inhalation (Anoro Ellipta) cholecalciferol (vitamin D3) 10 10 mcg PO DAILY 04/16/25 04/16/25 Unknown History mcg (400 unit) tablet (Vitamin D3) potassium chloride 20 mEq 20 meq PO DAILY 04/16/25 04/16/25 Unknown History tablet,extended release Physical Exam Vital Signs and Narrative: Vital Signs: Last Vital Signs Temp 97.9 F 04/28/25 22:18 Pulse 62 04/28/25 22:18 Resp 14 04/28/25 22:18 BP 94/44 L 04/28/25 22:18 Pulse Ox 96 04/28/25 22:18 O2 Del Method Room Air 04/28/25 22:18 O2 Flow Rate 2 04/28/25 18:51 Oxygen Flow Rate 2 04/28/25 17:05 BMI result Body Mass Index 27.2 Results Labs 04/28/25 17:32 04/28/25 17:50 Labs: Laboratory Results - last 24 hr 04/28/25 04/28/25 04/28/25 17:32 17:39 17:50 MCV 87.6 MCH 28.5 MCHC 32.5 RDW 15.8 Plt Count 152 L D MPV 11.4 Immature Gran % (Auto) 0.6 H Neut % (Auto) 84.8 H Lymph % (Auto) 9.3 L [place] % (Auto) 4.6 Eos % (Auto) 0.5 Baso % (Auto) 0.2 Lymph # (Auto) 0.6 L [place] # (Auto) 0.3 Eos # (Auto) 0.0 Baso # (Auto) 0.0 Abs Immat Gran (auto) 0.04 H Absolute Neuts (auto) 5.3 Absolute Nucleated RBC 0.000 Nucleated RBC % (auto) 0.0 PT 66.2 H D INR 5.7 H* D VBG pH 7.38 VBG pCO2 62 VBG pO2 37 VBG HCO3 37 H VBG O2 Saturation 53.0 VBG Base Excess 10.4 Anion Gap 11 L Estim Creat Clear Calc 27.5 Estimated GFR 39 Random Glucose 108 Lactic Acid 1.1 Calcium 8.4 Magnesium 2.4 Total Bilirubin 1.0 AST 54 H ALT 23 Alkaline Phosphatase 141 H Troponin I High Sens 36.7 H NT-Pro-B Natriuret Pep 9082.2 H Total Protein 5.4 L Albumin 2.8 L TSH 0.59 Influenza Type A (PCR) POSITIVE A Influenza Type B (PCR) NEGATIVE RSV RNA Qual (PCR) NEGATIVE SARS-CoV-2 RNA (RT-PCR) NEGATIVE 04/28/25 18:51 MCV MCH MCHC RDW Plt Count MPV Immature Gran % (Auto) Neut % (Auto) Lymph % (Auto) [place] % (Auto) Eos % (Auto) Baso % (Auto) Lymph # (Auto) [place] # (Auto) Eos # (Auto) Baso # (Auto) Abs Immat Gran (auto) Absolute Neuts (auto) Absolute Nucleated RBC Nucleated RBC % (auto) PT INR VBG pH VBG pCO2 VBG pO2 VBG HCO3 VBG O2 Saturation VBG Base Excess Anion Gap Estim Creat Clear Calc Estimated GFR Random Glucose Lactic Acid Calcium Magnesium Total Bilirubin AST ALT Alkaline Phosphatase Troponin I High Sens 31.9 H NT-Pro-B Natriuret Pep Total Protein Albumin TSH Influenza Type A (PCR) Influenza Type B (PCR) RSV RNA Qual (PCR) SARS-CoV-2 RNA (RT-PCR) Assessment and Plan (1) CAP (community acquired pneumonia): Qualifiers: Laterality: unspecified laterality Qualified Code(s): J18.9 - Pneumonia, unspecified organism Status: Acute (2) Influenza A: Status: Acute (3) Acute on chronic systolic heart failure: Status: Acute Quality Stroke Does the patient have a stroke diagnosis?: No Reason for No Anti-thrombotic by Day Two: N/A - Med Ordered VTE Prior VTE?: No VTE Risk Level:: Medical - moderate - high VTE Device Contraindication: N/A - Device Ordered VTE Drug Contraindication: N/A - Med Ordered
--- NOTE | 2025-04-28 22:37 | PC.NURSE ---
Pt noted to be hypotensive with systolic BP 80's, MAP 59. Dr. Hendrix made aware. NSR on monitor with HR 60's. Pt previously complained of back pain. Tylenol IV provided. Monitoring is ongoing.
--- NOTE | 2025-04-28 22:50 | PC.NURSE ---
Doxycycline PO not given as pt aspirates. made aware.
[2025-04-28] MEDS: Lactated Ringers 500 ML IV (23:12)
--- NOTE | 2025-04-28 23:18 | PC.NURSE ---
Levophed started at 0.05mcg per protocol on the L FA. BP improved to 108/52 MAP 70, HR 63. Continues to be on high flow 30% on 30L with O2 sat 98%. RR 16. Second IV line placed on the R FA and 500cc LR started. ICU provider at bedside. Monitoring is ongoing.
--- NOTE | 2025-04-28 23:25 | PM.CCHP ---
History of Present Illness Date of Service: 04/28/25 Attending physician on admission: Mandeep Amador Chief Complaint: Altered mental status The patient is a 84-year-old female with a past medical history significant for paroxysmal atrial fibrillation (on eliquis), history of porcine mitral valve replacement, AICD/pacemaker, GORDON on CPAP, congestive heart failure (LVEF 15-20%), chronic kidney disease, hypertension, hyperlipidemia, pulmonary hypertension and recent admission 04/15/2025 to 04/25/25 for acute pyelonephritis, supratherapeutic INR (Coumadin was switched to Eliquis), and influenza a.? She completed Tamiflu and cefuroxime 250 mg treatement, and discharge to rehab facility. Today patient presented to emergency department with altered mental status, patient was discharged on oxycodone for chronic back pain, EMS did give her some 1.5 mg of Narcan intranasally with good affect.? Patient also complained of shortness of breath. In ED she was noted to be tachypneic, hypoxic, and hypotensive. Imaging: Chest x-ray: Consistent with diffuse pulmonary congestion and infrahilar opacities, possibly representing atelectasis or pneumonia. ED course: Patient received ceftriaxone 2gm, doxycycline, ?500 mL crystalloid bolus, and albumin 100 mL. [facility] Past Medical History Medical History HFrEF (heart failure with reduced ejection fraction) Chronic atrial fibrillation Chronic anticoagulation Obesity CKD (chronic kidney disease) stage 3, GFR 30-59 ml/min Nephrolithiasis, uric acid Hyperlipidemia HTN (hypertension) A-fib GORDON (obstructive sleep apnea) COPD (chronic obstructive pulmonary disease) Pulmonary HTN Severe mitral regurgitation Thiamine deficiency Osteoporosis Family History Family History Father No problems noted. Mother No problems noted. Maternal Aunt Breast cancer Surgical History Surgical History Hx of hernia repair History of open reduction and internal fixation (ORIF) procedure Social History Social History Household Members: None Housing: Other [facility] Do you presently have visiting nurse or other home services: No Alcohol intake: never Patient Tobacco Use Status: Former Tobacco user Tobacco use type: Cigarette Smoked in Last 30 Days: No e-Cigarette/Vaping Use: Never Used Second Hand Smoke Exposure: No Use of substances other than those prescribed or required for medical reasons: No Currently Displaying Signs/Symptoms of Drug Intoxication Withdrawal: No Advance Directives: Yes Advance Directives on File: Yes Advance Directives Date on File: 11/28/23 Do you have a plan to hurt others: No Plan Recently lost weight without trying: Unsure Nutrition Risks: Emaciation/Cachexia and On aspiration precautions Patient : No service: No Current occupational status: retired Cognitive needs: No Hearing needs: No Vision needs: No Meds Allergies Allergy/AdvReac Type Severity Reaction Status Date / Time hydrocodone (From Vicodin) Allergy Mild CHEST PAIN Verified 04/28/25 17:16 Active Medications: Current Medications Doxycycline Monohydrate (Doxycycline Monohydrate 100 Mg Capsule) 100 mg PO BID VIOLETA Stop: 05/06/25 09:00 Last Admin: 04/28/25 22:50 Dose: Not Given Norepinephrine Bitartrate (Levophed) 8 mg in 250 mls @ 0 mls/hr IVCONT .Q0M VIOLETA; Protocol Last Admin: 04/28/25 22:57 Dose: 0.05 mcg/kg/min, 5.92 mls/hr Lactated Ringer's (Lr) 500 mls @ 500 mls/hr IV .Q1H VIOLETA Stop: 04/28/25 23:59 Last Admin: 04/28/25 23:12 Dose: 500 mls/hr Home Medications ?Medication ?Instructions ?Recorded ?Confirmed ?Last Taken ?Type ascorbate calcium (vitamin C) 500 500 mg PO DAILY 01/04/23 04/16/25 04/15/25 History mg tablet qwnnafeqtmek-Bc-ozgj-minerals 1 tab PO DAILY 01/04/23 04/16/25 12/07/24 History zinc gluconate 50 mg tablet 50 mg PO DAILY 01/04/23 04/16/25 12/07/24 History acetaminophen 325 mg capsule 650 mg PO Q8H PRN Pain 01/20/24 04/15/25 Unknown History amiodarone 200 mg tablet 200 mg PO DAILY 07/27/24 04/15/25 04/15/25 History omeprazole 20 mg capsule,delayed 20 mg PO BID@0630,1630 12/07/24 04/15/25 04/15/25 History release thiamine HCl (vitamin B1) 100 mg 100 mg PO DAILY 01/12/25 04/16/25 Unknown History capsule amlodipine 5 mg tablet 5 mg PO DAILY 04/15/25 04/15/25 04/15/25 History carvedilol 12.5 mg tablet 12.5 mg PO BID 04/15/25 04/15/25 04/15/25 History furosemide 40 mg tablet (Lasix) 40 mg PO BID 04/15/25 04/16/25 Unknown History umeclidinium 62.5 mcg-vilanterol 1 inh inhalation DAILY 04/15/25 04/15/25 History 25 mcg/actuation powdr for inhalation (Anoro Ellipta) cholecalciferol (vitamin D3) 10 10 mcg PO DAILY 04/16/25 04/16/25 Unknown History mcg (400 unit) tablet (Vitamin D3) potassium chloride 20 mEq 20 meq PO DAILY 04/16/25 04/16/25 Unknown History tablet,extended release Physical Exam Exam: Exam: ?General:?Lethargic, but responds to verbal commands. Alert x person and place ?HEENT:? Head is normocephalic, atraumatic, pupils equal round reactive to light accommodation bilaterally.? Extraocular movements appear intact.? Buccal mucosa is dry, Neck is supple without lymphadenopathy. ?Cardiac:? Clear S1-S2, no murmurs rubs or gallops. ?Pulmonary:?Rhonchi at bases. no wheezing. on HFNC 30/40%. ?Abdomen:? ?Abdomen soft, non-tender, non-distended. Normal bowel sounds. No pulsatile mass. No hepatosplenomegaly. ?Musculoskeletal:? Moving all 4 extremities upon request a major joints, there is no crepitus or tenderness.? ?Neurologic:? cranial nerves 2-12 are grossly intact.? No focal deficits noted.Motor strength as above.?? ?Skin: Scattered bruising throughout body. Trace BLE edema . Vascular:? 2+ pulses upper and lower extremities distally.? Vital Signs: Vital Signs: Last Vital Signs Temp 97.9 F 04/28/25 22:18 Pulse 65 04/28/25 22:57 Resp 13 04/28/25 22:36 BP 86/43 L 04/28/25 22:57 Pulse Ox 95 04/28/25 22:36 O2 Del Method High Flow Nasal C annula 04/28/25 22:36 O2 Flow Rate 30 04/28/25 22:36 Oxygen Flow Rate 2 04/28/25 17:05 BMI result Body Mass Index 27.2 Results Labs 04/29/25 05:13 04/29/25 05:13 Labs: Laboratory Results - last 24 hr 04/28/25 04/28/25 04/28/25 17:32 17:39 17:50 MCV 87.6 MCH 28.5 MCHC 32.5 RDW 15.8 Plt Count 152 L D MPV 11.4 Immature Gran % (Auto) 0.6 H Neut % (Auto) 84.8 H Lymph % (Auto) 9.3 L [place] % (Auto) 4.6 Eos % (Auto) 0.5 Baso % (Auto) 0.2 Lymph # (Auto) 0.6 L [place] # (Auto) 0.3 Eos # (Auto) 0.0 Baso # (Auto) 0.0 Abs Immat Gran (auto) 0.04 H Absolute Neuts (auto) 5.3 Absolute Nucleated RBC 0.000 Nucleated RBC % (auto) 0.0 PT 66.2 H D INR 5.7 H* D VBG pH 7.38 VBG pCO2 62 VBG pO2 37 VBG HCO3 37 H VBG O2 Saturation 53.0 VBG Base Excess 10.4 Anion Gap 11 L Estim Creat Clear Calc 27.5 Estimated GFR 39 Random Glucose 108 Lactic Acid 1.1 Calcium 8.4 Magnesium 2.4 Total Bilirubin 1.0 AST 54 H ALT 23 Alkaline Phosphatase 141 H Troponin I High Sens 36.7 H NT-Pro-B Natriuret Pep 9082.2 H Total Protein 5.4 L Albumin 2.8 L TSH 0.59 Influenza Type A (PCR) POSITIVE A Influenza Type B (PCR) NEGATIVE RSV RNA Qual (PCR) NEGATIVE SARS-CoV-2 RNA (RT-PCR) NEGATIVE 04/28/25 18:51 MCV MCH MCHC RDW Plt Count MPV Immature Gran % (Auto) Neut % (Auto) Lymph % (Auto) [place] % (Auto) Eos % (Auto) Baso % (Auto) Lymph # (Auto) [place] # (Auto) Eos # (Auto) Baso # (Auto) Abs Immat Gran (auto) Absolute Neuts (auto) Absolute Nucleated RBC Nucleated RBC % (auto) PT INR VBG pH VBG pCO2 VBG pO2 VBG HCO3 VBG O2 Saturation VBG Base Excess Anion Gap Estim Creat Clear Calc Estimated GFR Random Glucose Lactic Acid Calcium Magnesium Total Bilirubin AST ALT Alkaline Phosphatase Troponin I High Sens 31.9 H NT-Pro-B Natriuret Pep Total Protein Albumin TSH Influenza Type A (PCR) Influenza Type B (PCR) RSV RNA Qual (PCR) SARS-CoV-2 RNA (RT-PCR) Assessment and Plan (1) Acute hypotension: Status: Acute (2) Acute respiratory failure with hypoxia: Status: Resolved (3) CAP (community acquired pneumonia): Qualifiers: Laterality: unspecified laterality Qualified Code(s): J18.9 - Pneumonia, unspecified organism Status: Acute (4) Influenza A: Status: Acute (5) HFrEF (heart failure with reduced ejection fraction): Status: Acute (6) Sepsis: Status: Acute (7) Elevated INR: Status: Acute (8) Transaminitis: Status: Acute Plan 84-year-old female with a recent history of influenza a infection admitted to ICU for management of sepsis from viral pneumonia Neuro: ? Lethargy:? From sepsis, patient answers appropriately. ?No neurological deficits.? Should improve with antibiotic treatment. Cardiac:? Sepsis:? No evidence of septic shock, despite hypotension, ?lactic is negative.? Source likely respiratory, the patient was admitted recently with acute pyelonephritis was supposed to have ureteral stent removed, but unable to due to supratherapeutic INR and influenza diagnosis.? We will send urine studies. ?Continue ceftriaxone and doxycycline. Hypotension: ?Due to a combination.? Patient's poor p.o. intake and sepsis.? Require vasopressor support.? We will attempt fluid resuscitation with colloids due to underlying Congestive heart failure diagnosis. ?Hold home Lisinopril, amlodipine, carvedilol, amiodarone and metoprolol Underlying Congestive heart failure with last EF noted to be 15-20% earlier this month. ? Underlying atrial fibrillation:? We will hold metoprolol amiodarone due to hypotension.? Continue Eliquis Pulmonary:? Acute respiratory failure due to viral pneumonia from recent influenza type a:? Patient has completed Tamiflu.? Chest x-ray with possible pneumonia.? Patient is requiring high-flow nasal cannula.? We will continue empiric antibiotics.? weaning of supplemental oxygenation as tolerated.? Renal:? ?No acute issues Endo:? No acute issues GI: ? Transaminitis: Improving from last admission. Cont to trend Heme/Onc Elevated INR: During last admission INR elevated to 10, patient was transitioned from coumadin to eliquis. Today, INR elevated to 5.7. No evidence of bleeding. Will administer Vitamin K. Trend Coags ID:? Sepsis: Blood cultures obtained in the emergency department and pending. Source likely respiratory, the patient was admitted recently with acute pyelonephritis was supposed to have ureteral stent removed, but unable to due to supratherapeutic INR and influenza diagnosis.? We will send urine studies. ?Cont ceftriaxone and doxycycline.? Unable to do azithromycin due to prolonged hx of QTC. Psych:? ? no acute issues? Miscellaneous:? No acute issues. Prophylaxis: ?Eliquis Diet:? Nurse to do bedside swallow, prior to diet order Critical care time: ? 30 min of critical care time Case discussed with attending Dr Amador?
[2025-04-29] VITALS (38 sets, daily range): BP systolic 93–120; BP diastolic 43–73; PULSE 60–101; RESP 10–46; TEMP 36–37.1; O2SAT 90–98; BMI 25.9
[2025-04-29] MEDS: Albumin Human 25 % 100 ML 133.33 ML IV ×2 (00:10→00:56)
[2025-04-29] MEDS: Lactated Ringers 1,000 ML 500 ML IVCONT (02:24)
--- NOTE | 2025-04-29 02:25 | PM.SEPBOLA4 ---
Sepsis Bolus Exclusion Sepsis Bolus Exclusion CHF/Renal Failure Date of Occurrence: 04/28/25 Time of Occurrence:: 23:30 This patient met severe sepsis criteria due to the following condition(s):: Hypotension In my clinical judgement the administration of 30 ml/kg of crystalloid would be detrimental to this patient due to the patient's following conditions:: Concern for fluid overload (EF 15-20%) Replace the 30 mls/kg with (Zero amount not acceptable and all fluids for severe sepsis must be given at GREATER than 125 mls/hr) *Note: One of the dunn must be documented Colloids amount given in mls:: 200 At a rate of (must be > 125 cchr):: 133
[2025-04-29 05:19] LABS: VBG HCO3 32 mmol/L (22-26); VBG O2 % Saturation 99.0 %
[2025-04-29 05:32] LABS: MANUAL DIFF FLAG NO
[2025-04-29 05:39] LABS: Hematocrit 27.5 % (37.0-47.0); Hemoglobin 8.9 g/dl (12.0-16.0); Imm Gran Abs Auto 0.01 X10*3/uL (0.00-0.03); Imm Gran Pct Auto 0.3 % (0.0-0.4); Lymphocytes Absolute Auto 0.3 X10*3/uL (1.2-4.9); Mean Corpuscular HGB Conc 32.4 g/dl (31.0-35.0); Mean Corpuscular Hemoglobin 28.3 pg (27.0-33.0); Mean Corpuscular Volume 87.3 fL (80.0-98.0); NRBC Abs Auto 0.000 X10*3/uL (0.0-0.012); NRBC Pct Auto 0.0 /100WBC (0.0-0.2); Red Blood Count 3.15 X10*6/uL (4.20-5.50); White Blood Count 3.3 X10*3/uL (4.8-10.8)
[2025-04-29 05:55] LABS: Prothrombin Time 71.3 SEC (11.2-13.5)
[2025-04-29 05:59] LABS: Albumin Level 3.5 g/dL (3.5-5.0); Magnesium 2.6 mg/dL (1.6-2.6); Platelet Count 93 X10*3/uL (160-400)
[2025-04-29 06:00] LABS: Alanine Aminotransferase 18 U/L (0-31); Albumin Level 3.5 g/dL (3.5-5.0); Alkaline Phosphatase 123 U/L (39-117); Anion Gap 13 (12-20); Aspartate Amino Transferase 41 U/L (5-31); Blood Urea Nitrogen 43 mg/dL (9-16); Calcium 8.2 mg/dL (8.4-10.2); Carbon Dioxide 28 mmol/L (22-29); Chloride 104 mmol/L (96-108); Creatinine Clr Calc Pharmacy 36.3; Estimated Glomerular Filt Rate 54; Potassium 4.3 mmol/L (3.3-5.1); Sodium 141 mmol/L (135-145); Total Protein 5.2 g/dL (6.5-8.0)
[2025-04-29 06:02] LABS: INTERNATIONAL NORM RATIO 6.1 (0.9-1.1)
--- NOTE | 2025-04-29 06:21 | PM.EVENT ---
Documented by User: Maynor Chavez NP 04/29/25 06:23 Event Note Date of Service: 04/29/25 Event Note: This morning patient developed new hematuria, INR increased to 6.1. Vit K administered earlier. X 2 units of FFP ordered. Urology consult placed Time Spent With Patient Time: Total time managing care of this patient today ____ minutes. Documented by User: Mandeep Amador MD 04/29/25 10:24 Event Note Date of Service: 04/29/25
[2025-04-29 06:49] LABS: Venous Blood Gas Refer to POC result
--- NOTE | 2025-04-29 07:09 | PC.NURSE ---
Pt admitted to ICU from ED at approx 0000. On initial assessment, pt A&Ox2 (person, place), vague, forgetful, anxious, and tearful; required frequent reorientation and reassurance. Afebrile. V-paced on tele, HR 60?70s. Levophed ordered and titrated to maintain MAP > 65. Given an additional 1L LR IV bolus and albumin 25% 100 mL IV x2. HFNC weaned to 2L Oxymask with SpO2 > 92%. Intermittently rhonchorous. Endorses SOB with strong, rattling, non-productive cough noted, encouraged TCDB. NPO. No BM. Bladder scan 27 mL; CAT Chavez aware. Impaired skin integrity noted?see skin assessment/photos. Repositioned q2hrs with pillows; pt on air loss mattress. C/o back pain; given morphine 0.5 mg IVP x1 with minimal effect. Bed locked in lowest position, alarm on, call valentine within reach. Grandson called and updated on pt status and plan of care. See EMR/flowsheets for further details. At approx 0600, pt noted to be covered in bloody urine; CAT Chavez notified. Indwelling urinary catheter ordered and placed for hematuria, urology consult placed. Type and screen ordered and 2 units FFP. Previously given vitamin K 5 mg IV x1.
--- NOTE | 2025-04-29 07:12 | HO.SKINPHOTO ---
Location: Coccyx Category: Pressure Stage: II (scratch to R buttock/hip; ?DTI vs bruise to R hip) Location: Sternum (?sternal wire)
[2025-04-29] MEDS: 0.9 % Sodium Chloride Flush 3 ML SYRINGE IVFLUSH ×3 (07:40→21:01)
[2025-04-29] MEDS: Potassium Phosphate/NS 15 MMOL/250 ML PLAST..BAG 62.5 MMOL IV (07:40)
--- NOTE | 2025-04-29 10:24 | P.PNCC_ITS ---
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 No events overnight. Critical Care Time (minutes): 0 Physical Exam 2 Vital Signs: Vital Signs: Last Vital Signs Temp 97.5 F 04/29/25 10:00 Pulse 75 04/29/25 10:00 Resp 30 H 04/29/25 10:00 BP 109/55 L 04/29/25 10:00 Pulse Ox 97 04/29/25 10:00 O2 Del Method Nasal Cannula 04/29/25 10:00 O2 Flow Rate 2 04/29/25 10:00 FiO2 30 04/29/25 00:00 Oxygen Flow Rate 40 04/28/25 23:17 BMI result Body Mass Index 25.9 Const: General: no acute distress, alert and awake Eyes: Sclerae: sclerae normal EOM: EOMs intact bilaterally Neck: Neck: Yes no lymphadenopathy, Yes trachea midline and Yes supple Resp: Effort & Inspection: normal respiratory effort and no respiratory distress Auscultation: crackles (Mild bilateral) Cardio: Rate: tachycardic Rhythm: regular rhythm Heart sounds: no gallops, no murmurs and no rubs GI: Palpation (GI): Soft to palpation and Other GI palpation findings present ( Nontender) Auscultation: normal bowel sounds Extrem: General: No clubbing, No cyanosis and Yes edema (Trace bilateral) Objective Data Labs 04/29/25 05:13 04/29/25 05:13 Labs: Laboratory Results - last 24 hr 04/28/25 04/28/25 04/28/25 17:32 17:39 17:50 WBC 6.2 RBC 4.18 L Hgb 11.9 L Hct 36.6 L MCV 87.6 MCH 28.5 MCHC 32.5 RDW 15.8 Plt Count 152 L D MPV 11.4 Immature Gran % (Auto) 0.6 H Neut % (Auto) 84.8 H Lymph % (Auto) 9.3 L Mcculloch % (Auto) 4.6 Eos % (Auto) 0.5 Baso % (Auto) 0.2 Lymph # (Auto) 0.6 L Mcculloch # (Auto) 0.3 Eos # (Auto) 0.0 Baso # (Auto) 0.0 Abs Immat Gran (auto) 0.04 H Absolute Neuts (auto) 5.3 Absolute Nucleated RBC 0.000 Nucleated RBC % (auto) 0.0 PT 66.2 H D INR 5.7 H* D VBG pH 7.38 VBG pCO2 62 VBG pO2 37 VBG HCO3 37 H VBG O2 Saturation 53.0 VBG Base Excess 10.4 Sodium 139 Potassium 5.0 D Chloride 104 Carbon Dioxide 29 Anion Gap 11 L BUN 50 H Creatinine 1.31 Estim Creat Clear Calc 27.5 Estimated GFR 39 Random Glucose 108 Lactic Acid 1.1 Calcium 8.4 Phosphorus Magnesium 2.4 Total Bilirubin 1.0 AST 54 H ALT 23 Alkaline Phosphatase 141 H Troponin I High Sens 36.7 H NT-Pro-B Natriuret Pep 9082.2 H Total Protein 5.4 L Albumin 2.8 L TSH 0.59 Influenza Type A (PCR) POSITIVE A Influenza Type B (PCR) NEGATIVE RSV RNA Qual (PCR) NEGATIVE SARS-CoV-2 RNA (RT-PCR) NEGATIVE Blood Type Antibody Screen 04/28/25 04/29/25 04/29/25 18:51 05:13 05:13 WBC 3.3 L RBC 3.15 L D Hgb 8.9 L D Hct 27.5 L D MCV 87.3 MCH 28.3 MCHC 32.4 RDW 15.6 Plt Count 93 L D MPV 11.0 Immature Gran % (Auto) 0.3 Neut % (Auto) 84.7 H Lymph % (Auto) 8.7 L Mcculloch % (Auto) 5.4 Eos % (Auto) 0.9 Baso % (Auto) 0.0 Lymph # (Auto) 0.3 L Mcculloch # (Auto) 0.2 Eos # (Auto) 0.0 Baso # (Auto) 0.0 Abs Immat Gran (auto) 0.01 Absolute Neuts (auto) 2.8 Absolute Nucleated RBC 0.000 Nucleated RBC % (auto) 0.0 PT 71.3 H INR 6.1 H* VBG pH VBG pCO2 VBG pO2 VBG HCO3 VBG O2 Saturation VBG Base Excess Sodium 141 Potassium 4.3 Chloride 104 Carbon Dioxide 28 Anion Gap 13 BUN 43 H Creatinine 0.99 Estim Creat Clear Calc 36.3 Estimated GFR 54 Random Glucose 96 Lactic Acid Calcium 8.2 L Phosphorus 2.4 L Magnesium 2.6 Total Bilirubin 1.0 AST 41 H ALT 18 Alkaline Phosphatase 123 H Troponin I High Sens 31.9 H NT-Pro-B Natriuret Pep Total Protein 5.2 L Albumin 3.5 3.5 TSH Influenza Type A (PCR) Influenza Type B (PCR) RSV RNA Qual (PCR) SARS-CoV-2 RNA (RT-PCR) Blood Type Antibody Screen 04/29/25 04/29/25 05:15 06:31 WBC RBC Hgb Hct MCV MCH MCHC RDW Plt Count MPV Immature Gran % (Auto) Neut % (Auto) Lymph % (Auto) Mcculloch % (Auto) Eos % (Auto) Baso % (Auto) Lymph # (Auto) Mcculloch # (Auto) Eos # (Auto) Baso # (Auto) Abs Immat Gran (auto) Absolute Neuts (auto) Absolute Nucleated RBC Nucleated RBC % (auto) PT INR VBG pH 7.53 H VBG pCO2 38 VBG pO2 95 VBG HCO3 32 H VBG O2 Saturation 99.0 VBG Base Excess 9.7 Sodium Potassium Chloride Carbon Dioxide Anion Gap BUN Creatinine Estim Creat Clear Calc Estimated GFR Random Glucose Lactic Acid Calcium Phosphorus Magnesium Total Bilirubin AST ALT Alkaline Phosphatase Troponin I High Sens NT-Pro-B Natriuret Pep Total Protein Albumin TSH Influenza Type A (PCR) Influenza Type B (PCR) RSV RNA Qual (PCR) SARS-CoV-2 RNA (RT-PCR) Blood Type A Positive Antibody Screen NEGATIVE Progress Note: A&P Assessment and plan (1) Cardiomyopathy: Status: Acute (2) Status post mitral valve replacement with bioprosthetic valve: Status: Acute (3) Status post tricuspid valve repair: Status: Acute (4) Permanent atrial fibrillation: Status: Acute (5) Supratherapeutic INR: Status: Acute (6) Ureteral stent retained: Status: Acute (7) Hematuria: Status: Acute (8) Influenza A: Status: Acute (9) COPD (chronic obstructive pulmonary disease): Status: Acute Plan Assessment: 84-year-old lady with multiple medical issues admitted with hypoxia and hypotension secondary to influenza a further complicated by hematuria on the background of supratherapeutic INR and Eliquis use. Plan: Neuro: No acute issues. Cardiac: No acute issues. Underlying severe systolic cardiomyopathy and AFib. Pulmonary: Acute hypoxia secondary to influenza A on the background of COPD and pulmonary hypertension. Renal: Retained ureteral stents with consideration for retrieval. Urology evaluation is pending. Hematuria on a background of Eliquis use. Continue to monitor to renal indices and urine output. Endo: No acute issues. GI: No acute issues. ID: No acute issues Heme/Onc: Coagulopathy secondary to Eliquis use, now status post FFP/vitamin K. Psych: No acute issues. Miscellaneous: No acute issues. Prophylaxis: Pneumatic compression Diet: Regular Quality Stroke Does the patient have a stroke diagnosis?: No VTE Prior VTE?: No VTE Risk Level:: Medical - moderate - high VTE Device Contraindication: N/A - Device Ordered VTE Drug Contraindication: N/A - Med Ordered
[2025-04-29] MEDS: Furosemide 20 MG/2 ML VIAL IVPUSH ×2 (10:50→14:15)
--- NOTE | 2025-04-29 11:38 | PC.NURSE ---
Addendum entered by Jada Xavier RN 04/29/25 18:19: Second unit of FFP started per MD at 12:22 PM. Infusion rate decreased to 80 ml/hr to improve pt tolerance. Patient continued to sit in recliner chair, waffle cushion utilized. Approx 14:15 Patient rang call valentine for increased WOB, tachypnea, wet and congested cough. Lung dunn were dim to bases, no audible crackles. Hospitalist MD notified and came to bedside. New orders for 20 IVP lasix, FFP rate decreased to 50 ml/hr. Patient condition improved on 2L oxymask. Patient requested to go back to bed, so patient transferred 2 assist with kp stacy. The 4 hour limit for FFP transfusion was reached with approx 50% of volume remaining in bag. MD notified, transfusion ended and blood product discarded per protocol. Patient turned and repositioned Q2HR. Family members visited at bedside early in morning as well as 18:00. Original Note: Assumed care of patient 0700. Patient has moist congested cough, orthopnea, tachypnea at times. MD notified. New orders for 2 units FFP. Transfusion consent signed. 1 unit FFP started approx 08:07. Patient lost 2 of 3 PIV access due to infiltrations. New 22G US guided IV placed to KIARA. FFP remains running at this time. Blood bank contacted regarding transfusion for up to 4 hours (beyond 3.5 hours). Per blood bank, follow [facility] nursing policies. [place] Policy states, must transfuse?blood products within 4 hours of removal from the transfusion services refrigerator.If any?blood product remains after 4 hours, discontinue the infusion and discard the remaining product, as directed. Plan to stop transfusion before 4 hours. Patient up to recliner chair with kp stacy and 2 staff assistance. Impoved WOB with tripod and high avila position. Diet advanced to regular diet, puree and thickened liquids.
--- NOTE | 2025-04-29 12:21 | PHA.MEDREC ---
Pharmacy Consult ? Medication Reconciliation Pharmacy has completed the medication reconciliation, using medication list from [facility] and [facility] and spoke to ana Jermaine. Patient was discharged from [facility] on 04/25/25 and amiodarone 200 mg, metoprolol ER 50 mg and spironolactone 12.5 mg were continued but they were not on the list from rehab and Dr. Amador wants them to be on patient's home med list.
--- NOTE | 2025-04-29 13:23 | MHC.CM.PN ---
Addendum entered by Tonya Castro 04/29/25 13:51: Received return telephone call from patient's grandson, Jermaine. Family was not happy with [facility] and does not want patient to return there. [facility] is 1st choice. Jermaine made aware [facility] would have to feel patient can participate in 3 hours of therapy a day. Other SNF choices requested just in case [facility] is not able to offer a bed. Jermaine will speak to his family and contact about other SNF choice. Original Note: Attempted to meet with patient in regards to discharge planning. Nursing care currently being provided. Attempted to reach patient's daughter/HCP, Marielos, via telephone at [phone]. Left voicemail requesting return telephone call and IMM explained and sent via certified mail. Case management consult completed using medical record. Patient was d/c'd from [facility] to [facility] on 04/25 for STR. Return referral will be made. Need to verify with patient and family that plan is to return to [facility] when medically stable. [place] to monitor for d/c needs.
[2025-04-29] MEDS: Albuterol Sulfate (0.083%) 2.5 MG/3 ML VIAL.NEB INHALE (14:41)
[2025-04-29 15:07] LABS: MANUAL DIFF FLAG NO
[2025-04-29 15:25] LABS: Fibrinogen 419 MG/DL (259-690); INTERNATIONAL NORM RATIO 1.9 (0.9-1.1); Prothrombin Time 22.7 SEC (11.2-13.5)
[2025-04-29 15:33] LABS: Hematocrit 29.6 % (37.0-47.0); Hemoglobin 9.7 g/dl (12.0-16.0); Imm Gran Abs Auto 0.01 X10*3/uL (0.00-0.03); Imm Gran Pct Auto 0.2 % (0.0-0.4); Lymphocytes Absolute Auto 0.3 X10*3/uL (1.2-4.9); Mean Corpuscular HGB Conc 32.8 g/dl (31.0-35.0); Mean Corpuscular Hemoglobin 28.4 pg (27.0-33.0); Mean Corpuscular Volume 86.5 fL (80.0-98.0); NRBC Abs Auto 0.000 X10*3/uL (0.0-0.012); NRBC Pct Auto 0.0 /100WBC (0.0-0.2); Platelet Count 125 X10*3/uL (160-400); Red Blood Count 3.42 X10*6/uL (4.20-5.50); White Blood Count 4.4 X10*3/uL (4.8-10.8)
[2025-04-29 15:41] LABS: Alanine Aminotransferase 23 U/L (0-31); Albumin Level 3.8 g/dL (3.5-5.0); Alkaline Phosphatase 142 U/L (39-117); Anion Gap 15 (12-20); Aspartate Amino Transferase 42 U/L (5-31); Blood Urea Nitrogen 38 mg/dL (9-16); Calcium 8.4 mg/dL (8.4-10.2); Carbon Dioxide 28 mmol/L (22-29); Chloride 106 mmol/L (96-108); Creatinine Clr Calc Pharmacy 42.8; Estimated Glomerular Filt Rate > 60; Potassium 4.7 mmol/L (3.3-5.1); Sodium 144 mmol/L (135-145); Total Protein 5.8 g/dL (6.5-8.0)
[2025-04-29 15:55] LABS: Procalcitonin 0.04 ng/mL
[2025-04-30] VITALS (7 sets, daily range): BP systolic 107–139; BP diastolic 55–70; PULSE 70–90; RESP 17–35; TEMP 36.2–37.2; O2SAT 94–99; BMI 27.1; BMI 24.6
[2025-04-30 05:17] LABS: Hematocrit 30.7 % (37.0-47.0); Hemoglobin 9.7 g/dl (12.0-16.0); Imm Gran Abs Auto 0.03 X10*3/uL (0.00-0.03); Imm Gran Pct Auto 0.8 % (0.0-0.4); Lymphocytes Absolute Auto 0.4 X10*3/uL (1.2-4.9); MANUAL DIFF FLAG NO; Mean Corpuscular HGB Conc 31.6 g/dl (31.0-35.0); Mean Corpuscular Hemoglobin 27.9 pg (27.0-33.0); Mean Corpuscular Volume 88.2 fL (80.0-98.0); NRBC Abs Auto 0.000 X10*3/uL (0.0-0.012); NRBC Pct Auto 0.0 /100WBC (0.0-0.2); Platelet Count 120 X10*3/uL (160-400); Red Blood Count 3.48 X10*6/uL (4.20-5.50); White Blood Count 4.0 X10*3/uL (4.8-10.8)
[2025-04-30 05:23] LABS: INTERNATIONAL NORM RATIO 1.4 (0.9-1.1); Prothrombin Time 16.6 SEC (11.2-13.5)
[2025-04-30 05:35] LABS: Albumin Level 3.5 g/dL (3.5-5.0); Anion Gap 14 (12-20); Blood Urea Nitrogen 33 mg/dL (9-16); Calcium 8.4 mg/dL (8.4-10.2); Carbon Dioxide 31 mmol/L (22-29); Chloride 107 mmol/L (96-108); Creatinine Clr Calc Pharmacy 46.2; Estimated Glomerular Filt Rate > 60; Magnesium 2.5 mg/dL (1.6-2.6); Potassium 4.5 mmol/L (3.3-5.1); Sodium 147 mmol/L (135-145)
--- NOTE | 2025-04-30 06:19 | PC.NURSE ---
Pt alert to person only, confused and requires frequent redirection. Pt having?episodes of anxiety/restlessness with tachypnea, RR up to 40s - resolves with verbal reassurance. Morphine administered x2 per MAR for chronic back pain with some effect. Telesitter placed at bedside for safety.?
[2025-04-30] MEDS: 0.9 % Sodium Chloride Flush 3 ML SYRINGE IVFLUSH ×3 (10:55→21:05)
--- NOTE | 2025-04-30 10:59 | PM.UROCN ---
History of Present Illness Consult details Consult date: 04/30/25 Narrative: CC: Hematuria 84-year-old female Patient known to Urology from prior visit. Has right-sided ureteric stent that has been in for an extended period of time. On CT stent is calcified and we will require ureteroscopy to released. At last evaluation other medical conditions required stabilization. Asked to review patient for hematuria Bounced back from rehab facility after administration oxycodone with altered mental status INR found to be 6.1 Has been reversed Past medical history of cardiomyopathy EF of 40%, ureteral stent, mitral valve replacement, CKD, AFib on warfarin. If medically cleared will plan on ureteroscopy with laser lithotripsy on Saturday Review of Systems Constitutional: Constitutional: Reports as per HPI and Reports no additional constitutional complaints Cardiovascular: Cardiovascular: Reports as per HPI and Reports no additional cardiovascular complaints Respiratory: Respiratory: Reports as per HPI and Reports no additional respiratory complaints Gastrointestinal: Gastrointestinal: Reports as per HPI and Reports no additional gastrointestinal complaints Genitourinary: Genitourinary: Reports as per HPI Musculoskeletal: Musculoskeletal: Reports no additional musculoskeletal complaints and Reports as per HPI Neurologic: Reports system reviewed and no additional complaints, except as documented and Reports as per HPI PMFSH Past Medical History Medical History HFrEF (heart failure with reduced ejection fraction) Chronic atrial fibrillation Chronic anticoagulation Obesity CKD (chronic kidney disease) stage 3, GFR 30-59 ml/min Nephrolithiasis, uric acid Hyperlipidemia HTN (hypertension) A-fib GORDON (obstructive sleep apnea) COPD (chronic obstructive pulmonary disease) Pulmonary HTN Severe mitral regurgitation Thiamine deficiency Osteoporosis Family History Family History Father No problems noted. Mother No problems noted. Maternal Aunt Breast cancer Surgical History Surgical History Hx of hernia repair History of open reduction and internal fixation (ORIF) procedure Social History Social History Household Members: None Housing: Other Housing Other:: [facility] Do you presently have visiting nurse or other home services: No Alcohol intake: never Patient Tobacco Use Status: Former Tobacco user Tobacco use type: Cigarette Smoked in Last 30 Days: No e-Cigarette/Vaping Use: Never Used Second Hand Smoke Exposure: No Use of substances other than those prescribed or required for medical reasons: No Currently Displaying Signs/Symptoms of Drug Intoxication Withdrawal: No Advance Directives: Yes Advance Directives on File: Yes Advance Directives Date on File: 11/28/23 Do you have a plan to hurt others: No Plan Recently lost weight without trying: Unsure Nutrition Risks: Emaciation/Cachexia and On aspiration precautions Patient : No service: No Current occupational status: retired Cognitive needs: No Hearing needs: No Vision needs: No Meds Allergies Allergy/AdvReac Type Severity Reaction Status Date / Time hydrocodone (From Vicodin) Allergy Mild CHEST PAIN Verified 04/28/25 17:16 Active Medications: Current Medications Albuterol Sulfate (Albuterol Sulfate (0.083%) 2.5 Mg/3 Ml Vial.Neb) 2.5 mg INHALE Q4H PRN PRN Reason: Shortness of Breath/Wheezing Last Admin: 04/29/25 14:41 Dose: 2.5 mg Furosemide (Furosemide 20 Mg/2 Ml Vial) 20 mg IVPUSH ONCE ONE; Protocol Stop: 04/30/25 10:56 Melatonin (Melatonin 3 Mg Tablet) 9 mg PO BEDTIME PRN PRN Reason: Insomnia Last Admin: 04/29/25 22:05 Dose: 9 mg Morphine Sulfate (Morphine Sulfate 4 Mg/Ml Cartridge) 0.5 mg IVPUSH Q3H PRN; Protocol PRN Reason: chronic back pain Last Admin: 04/30/25 02:14 Dose: 0.5 mg Sodium Chloride (0.9 % Sodium Chloride Flush 3 Ml Syringe) 3 ml IVFLUSH [facility] Last Admin: 04/30/25 10:55 Dose: 3 ml Home Medications ?Medication ?Instructions ?Recorded ?Confirmed ?Last Taken ?Type ascorbate calcium (vitamin C) 500 500 mg PO DAILY 01/04/23 04/29/25 04/28/25 History mg tablet [id number]-Fa-tyio-minerals 1 tab PO DAILY 01/04/23 04/29/25 12/07/24 History zinc gluconate 50 mg tablet 50 mg PO DAILY 01/04/23 04/29/25 04/28/25 History acetaminophen 325 mg capsule 650 mg PO Q6H PRN Fever Or Pain 01/20/24 04/29/25 04/27/25 History amiodarone 200 mg tablet 200 mg PO DAILY 07/27/24 04/29/25 04/15/25 History omeprazole 20 mg capsule,delayed 20 mg PO BID@0630,1630 12/07/24 04/29/25 04/28/25 History release thiamine HCl (vitamin B1) 100 mg 100 mg PO DAILY 01/12/25 04/29/25 Unknown History capsule amlodipine 5 mg tablet 5 mg PO DAILY 04/15/25 04/29/25 04/28/25 History carvedilol 12.5 mg tablet 12.5 mg PO BID 04/15/25 04/29/25 04/28/25 History furosemide 40 mg tablet (Lasix) 40 mg PO BID 04/15/25 04/29/25 04/28/25 History umeclidinium 62.5 mcg-vilanterol 1 inh inhalation DAILY 04/15/25 04/29/25 04/28/25 History 25 mcg/actuation powdr for inhalation (Anoro Ellipta) cholecalciferol (vitamin D3) 10 10 mcg PO DAILY 04/16/25 04/29/25 04/28/25 History mcg (400 unit) tablet (Vitamin D3) potassium chloride 20 mEq 20 meq PO DAILY 04/16/25 04/29/25 04/28/25 History tablet,extended release albuterol sulfate 90 mcg/actuation 2 puff inhalation Q4H PRN 04/29/25 04/29/25 Unknown History aerosol inhaler shortness of breath or wheezing ipratropium 0.5 mg-albuterol 3 mg 3 ml inhalation Q6H PRN Wheezing 04/29/25 04/29/25 04/28/25 History (2.5 mg base)/3 mL nebulization soln Physical Exam Vital Signs: Vital Signs: Last Vital Signs Temp 98.1 F 04/30/25 07:22 Pulse 70 04/30/25 07:22 Resp 20 04/30/25 07:22 BP 139/62 04/30/25 07:22 Pulse Ox 96 04/30/25 07:22 O2 Del Method Nasal Cannula 04/30/25 07:22 O2 Flow Rate 2.0 04/30/25 07:22 FiO2 30 04/29/25 00:00 Oxygen Flow Rate 40 04/28/25 23:17 BMI result Body Mass Index 27.1 Const: General: cooperative, healthy appearing, comfortable and no acute distress Orientation/consciousness: patient oriented x3 HEENT: Face and sinus: Yes normal facial exam Mouth: moist mucous membranes Neck: Neck: Yes normal visual inspection, Yes full ROM and Yes trachea midline Chest: Chest palpation & inspection: normal inspection of the chest Resp: Effort & Inspection: normal respiratory effort, able to speak in complete sentences and no respiratory distress GI: Inspection: Yes normal to inspection Back/Spine/Pelvis: Cervical Spine: normal cervical lordosis Thoracic/Lumbar Spine: thoracic and lumbar spine normal to inspection Skin: General skin exam: no rashes or lesions noted Neuro: General: patient oriented x3, tone normal and moves all extremities Extrem: General: Yes normal to inspection and Yes capillary refill normal Results Labs 04/30/25 05:05 04/30/25 05:05 Labs: Abnormal lab results 04/29/25 04/30/25 Range/Units 15:00 05:05 WBC 4.4 L 4.0 L (4.8-10.8) X10*3/uL RBC 3.42 L 3.48 L (4.20-5.50) X10*6/uL Hgb 9.7 L 9.7 L (12.0-16.0) g/dl Hct 29.6 L 30.7 L (37.0-47.0) % Plt Count 125 L D 120 L (160-400) X10*3/uL Immature Gran % (Auto) 0.8 H (0.0-0.4) % Neut % (Auto) 86.6 H 82.1 H (45-73) % Lymph % (Auto) 7.5 L 10.8 L (20-40) % Lymph # (Auto) 0.3 L 0.4 L (1.2-4.9) X10*3/uL PT 22.7 H D 16.6 H D (11.2-13.5) SEC INR 1.9 H D 1.4 H (0.9-1.1) Sodium 147 H (135-145) mmol/L Carbon Dioxide 31 H (22-29) mmol/L BUN 38 H 33 H (9-16) mg/dL Random Glucose 133 H 116 H (60-115) mg/dL Total Bilirubin 1.1 H (0.0-1.0) mg/dL AST 42 H (5-31) U/L Alkaline Phosphatase 142 H (39-117) U/L Lactate Dehydrogenase 238 H (122-220) U/L C-Reactive Protein 2.85 H (< or = 0.50) mg/dL NT-Pro-B Natriuret Pep 13996.3 H (<300) pg/mL Total Protein 5.8 L (6.5-8.0) g/dL Short CBC 04/29/25 04/30/25 Range/Units 15:00 05:05 WBC 4.4 L 4.0 L (4.8-10.8) X10*3/uL Hgb 9.7 L 9.7 L (12.0-16.0) g/dl Hct 29.6 L 30.7 L (37.0-47.0) % Plt Count 125 L D 120 L (160-400) X10*3/uL BMP 04/29/25 04/30/25 15:00 05:05 Sodium 144 147 H Potassium 4.7 4.5 Chloride 106 107 Carbon Dioxide 28 31 H BUN 38 H 33 H Creatinine 0.82 0.76 Calcium 8.4 8.4 Liver Function 04/29/25 04/30/25 Range/Units 15:00 05:05 Total Bilirubin 1.1 H (0.0-1.0) mg/dL AST 42 H (5-31) U/L ALT 23 (0-31) U/L Alkaline Phosphatase 142 H (39-117) U/L Albumin 3.8 3.5 (3.5-5.0) g/dL All other labs normal. Assessment and Plan (1) Nephrolithiasis, uric acid: Status: Acute (2) Ureteral stent present: Status: Acute Plan Medical clearance Plan stent removal Saturday Procedures Date of Service Date of Service: 04/30/25
[2025-04-30] MEDS: Furosemide 20 MG/2 ML VIAL IVPUSH ×2 (11:22→16:59)
--- NOTE | 2025-04-30 14:07 | MHC.CM.PN ---
PER ROUNDS PT IS NOT DC READY DC PLAN REHAB
--- NOTE | 2025-04-30 14:10 | P.PNIM_ITS ---
Subjective Subjective Date of Service: 04/30/25 Interval History: Much less short of breath today. Remains on oxygen. No chest pain, palpitations, dizziness or diaphoresis. She still endorses dyspnea and tachypnea, however much better than yesterday Review of Systems Review of Systems: Yes all other systems are reviewed and are negative Physical Exam 2 Exam: Exam: General: A&O x2. Comfortable, not in pain. Cardiac: S1, S2 auscultated with no S3/4, no MRG. Well perfused. Respiratory: Tachypneic and dyspneic, with reduced inspiratory breath times and sounds at the bases bilaterally to the mid zones, with crepitations auscultated on lower bases and mid zones, without upper airway wheezing. No peripheral or central cyanosis. Accessory muscles of respiration are being used. GI/ : No abdominal pain on palpation, no masses or distentions. MSK: Frail and cachectic, with kyphosis Neurological: Normal neurological examination on overview, without obvious CN II-XII abnormalities. Vital Signs: Vital Signs: Last Vital Signs Temp 98.1 F 04/30/25 12:00 Pulse 76 04/30/25 12:00 Resp 18 04/30/25 12:00 BP 115/65 04/30/25 12:00 Pulse Ox 94 04/30/25 12:00 O2 Del Method Nasal Cannula 04/30/25 12:00 O2 Flow Rate 2 04/30/25 12:00 FiO2 30 04/29/25 00:00 Oxygen Flow Rate 40 04/28/25 23:17 BMI result Body Mass Index 27.1 Objective Data Active Medications Albuterol Sulfate (Albuterol Sulfate (0.083%) 2.5 Mg/3 Ml Vial.Neb) 2.5 mg INHALE Q4H PRN PRN Reason: Shortness of Breath/Wheezing Last Admin: 04/29/25 14:41 Dose: 2.5 mg Documented By: SUSHANT Melatonin (Melatonin 3 Mg Tablet) 9 mg PO BEDTIME PRN PRN Reason: Insomnia Last Admin: 04/29/25 22:05 Dose: 9 mg Documented By: CE Morphine Sulfate (Morphine Sulfate 4 Mg/Ml Cartridge) 0.5 mg IVPUSH Q3H PRN; Protocol PRN Reason: chronic back pain Last Admin: 04/30/25 02:14 Dose: 0.5 mg Documented By: CE Sodium Chloride (0.9 % Sodium Chloride Flush 3 Ml Syringe) 3 ml IVFLUSH QSHIFT [facility] Last Admin: 04/30/25 10:55 Dose: 3 ml Documented By: KASANDRAYM Labs 04/30/25 05:05 04/30/25 05:05 Labs: Laboratory Results - last 24 hr 04/29/25 04/29/25 04/30/25 14:59 15:00 05:05 MCV 86.5 88.2 MCH 28.4 27.9 MCHC 32.8 31.6 RDW 15.9 16.0 Plt Count 125 L D 120 L MPV 11.6 10.9 Immature Gran % (Auto) 0.2 0.8 H Neut % (Auto) 86.6 H 82.1 H Lymph % (Auto) 7.5 L 10.8 L [place] % (Auto) 5.0 5.5 Eos % (Auto) 0.7 0.8 Baso % (Auto) 0.0 0.0 Lymph # (Auto) 0.3 L 0.4 L [place] # (Auto) 0.2 0.2 Eos # (Auto) 0.0 0.0 Baso # (Auto) 0.0 0.0 Abs Immat Gran (auto) 0.01 0.03 Absolute Neuts (auto) 3.8 3.3 Absolute Nucleated RBC 0.000 0.000 Nucleated RBC % (auto) 0.0 0.0 PT 22.7 H D 16.6 H D INR 1.9 H D 1.4 H Fibrinogen 419 Anion Gap 15 14 Estim Creat Clear Calc 42.8 46.2 Estimated GFR > 60 > 60 Random Glucose 133 H 116 H Haptoglobin 149 Calcium 8.4 8.4 Phosphorus 2.7 Magnesium 2.5 Total Bilirubin 1.1 H AST 42 H ALT 23 Alkaline Phosphatase 142 H Lactate Dehydrogenase 238 H C-Reactive Protein 2.85 H NT-Pro-B Natriuret Pep 53371.3 H Total Protein 5.8 L Albumin 3.8 3.5 Procalcitonin 0.04 Microbiology Microbiology Results: Microbiology 04/28/25 17:50 Blood Culture - Preliminary Blood - Venous No growth after 24 hours. 04/28/25 17:32 Blood Culture - Preliminary Blood - Venous No growth after 24 hours. Assessment and Plan (1) HTN (hypertension): Status: Acute (2) Acute hypotension: Status: Acute (3) Cardiomyopathy: Status: Acute (4) Acute on chronic systolic heart failure: Status: Acute (5) HFrEF (heart failure with reduced ejection fraction): Status: Acute (6) Pulmonary HTN: Status: Acute (7) Status post mitral valve replacement with bioprosthetic valve: Status: Acute (8) Status post tricuspid valve repair: Status: Acute (9) Severe mitral regurgitation: Status: Acute (10) Prolonged QT interval: Status: Acute (11) Permanent atrial fibrillation: Status: Acute (12) Supratherapeutic INR: Status: Acute (13) Current use of anticoagulant therapy: Status: Acute (14) Thiamine deficiency: Status: Acute (15) Transaminitis: Status: Acute (16) Nephrolithiasis, uric acid: Status: Acute (17) S/P ureteral stent placement: Status: Acute (18) Ureteral stent retained: Status: Acute (19) Acute kidney injury superimposed on chronic kidney disease: Status: Acute (20) Bilateral kidney stones: Status: Acute (21) CKD (chronic kidney disease) stage 3, GFR 30-59 ml/min: Status: Acute (22) Hematuria: Status: Acute (23) Pyelonephritis: Status: Acute (24) Influenza A: Status: Acute (25) Sepsis: Status: Acute (26) COPD (chronic obstructive pulmonary disease): Status: Acute (27) SOB (shortness of breath): Status: Acute (28) CAP (community acquired pneumonia): Status: Acute (29) Respiratory failure: Status: Acute (30) GORDON (obstructive sleep apnea): Status: Acute (31) Bilateral lower extremity edema: Status: Acute Plan 84-year-old female, with a background medical history of paroxysmal atrial fibrillation on apixaban, porcine mitral valve replacement, HFrEF 15-20% s/p AICD, GORDON CPAP, CKD stage III B, HTN, HLD, pulmonary HTN, COPD not on home O2, recent admission 04/15-04/25/2025 for acute pyelonephritis and supratherapeutic INR (warfarin to apixaban) c/b influenza a URI, presented to emergency room 04/28 with altered mental status and shortness of breath, admitted to medical ICU with septic shock requiring pressor support 2/2 multifocal pneumonia & superimposed multifactorial acute hypoxic respiratory failure (PNA & acute CHF exacerbation rEF 15-20%), course c/b hematuria 2/2 supratherapeutic INR in the setting of retained ureteral stents due to previous nephrolithiasis & hydroureteronephrosis, transferred to medical floor 04/30/2025. Septic shock Multifocal pneumonia Recent pyelonephritis with hydroureteronephrosis 2/2 nephrolithiasis Hypotensive, required pressor support in MICU. X-ray revealing infrahilar opacities and diffuse pulmonary congestion likely reflecting a pneumonia. Completed treatment for pyelonephritis. Blood cultures -ve Patient was placed on ceftriaxone and doxycycline for 1 day, then discontinued Received volume resuscitation Patient was on metoprolol last admission, not carvedilol PLAN - resume ceftriaxone - resume doxycycline - start Solu-Medrol 40 mg b.i.d. IV - hold lisinopril - hold amlodipine - hold metoprolol Acute hypoxic respiratory failure Infective exacerbation of COPD Acute exacerbation is HFrEF 15-20% Pulmonary HTN Recent influenza A Patient has metoprolol and carvedilol both on her medication list; unclear why; we will clarify with family members Required high-flow for hypoxic respiratory failure. Intolerant of CPAP/BiPAP. DNR/DNI - no intubation. PLAN - furosemide 20 mg b.i.d. IV - clarify beta-nguyen medication and dose at home - continue oxygen as per protocol; aim for SpO2 > 92% - Solu-Medrol 40 mg b.i.d. IV - DuoNebs / albuterol - benzonatate p.r.n. - guaifenesin p.r.n. Pyelonephritis Nephrolithiasis Ureteral stenting Hematuria Patient was diagnosed and treated for pyelonephritis on previous admission The patient was transitioned from warfarin to apixaban on prior admission for her atrial fibrillation On admission, the patient is noted to have supratherapeutic INR. The patient's clinical course has been c/b hematuria in the setting of a supratherapeutic INR The patient received 2 units FFP, and vitamin K while in the ICU; which effectively reversed her INR PLAN - urology follow up - maintain Holt - consider CBI - avoid anticoagulation at this time Paroxysmal atrial fibrillation Supratherapeutic INR - previously on warfarin Anticoagulation with apixaban - currently held Patient was on metoprolol last admission, not carvedilol Patient on amiodarone, which was held in the ICU due to hypotension Anticoagulation is on hold due to hematuria. Patient was on warfarin during prior admission. This was discontinued, and apixaban was started. The patient presents with supratherapeutic INR around 6 - received FFP x2 and vitamin K with improvement in INR PLAN - recheck daily INR - FFP and vitamin K for increase - monitor for signs and symptoms of bleeding - resume amiodarone 200 mg OD p.o. - cardiology consultation - consider resumption of metoprolol GORDON Can not tolerate CPAP We will attempt again Chronic sacral and heel decubitus ulcers Wound Care consultation - [facility] - Right heel: Elevate heels off of bed surface with pillows. Float heels off of pillows. Apply skin prep allow to dry. Apply heel foam dressings, peel back and assess Q shift and change every 5-7 days and PRN - Coccyx: Off Load Pressure with Q2 hr turns and use of pillows - Cleanse with PH balance spray or wipes, pat dry. ?Apply thin layer of Triad to wound bed. Do not remove all of paste between applications as this may cause further skin damage.? Cover with foam dressing to aid in off loading and protection from friction. Change every other day and PRN. - Left lateral heel: cleanse with normal saline, apply skin prep palmer wound, apply durafiber ag, to wound bed, cover with heel foams, change every other day and PRN - elevate heels off surface of bed with pillows - Bilateral Lower Legs - Routine Cleansing. Apply Ammonium Lactate cream per provider orders. Lung nodule on CT - repeat chest CT in 3 mo outpt Thyroid nodules on CT - f/u output for thyroid US T10 fracture on CT Chronic back pain Likely secondary to fall at home in bathroom 4 weeks prior; pt hit back on toilet, did not seek medical evaluation at that time [facility] neurosurgery suggested fx appears stable, no need for transfer PLAN - pain management - outpatient evaluation - PT consulted [facility] - VTE: SCDs - CODE STATUS: DNR/DNI - DIET: Cardiac Total time managing care of this patient today: 60 minutes. Quality Stroke Does the patient have a stroke diagnosis?: No VTE Prior VTE?: No VTE Risk Level:: Medical - moderate - high VTE Device Contraindication: N/A - Device Ordered VTE Drug Contraindication: N/A - Med Ordered
--- NOTE | 2025-04-30 16:11 | MHC.CLN ---
NUTRITION DIET RX: PUREE WITH NECTAR THICK LIQUIDS. ADDING FORTIFIED ICE CREAM TID TO PROMOTE NUTRITIONAL INTAKE AND SKIN INTEGRITY. SUPPLEMENT PROVIDES 870 KCALS, 27 G PROTEIN. SKIN WITH STAGE II PRESSURE INJURY TO COCCYX. SIGNIFICANT WEIGHT LOSS X 5 MONTHS, -10.9%. FOLLOW FOR DIET ADVANCEMENT, PO INTAKE AND SKIN INTEGRITY. SEE CLINICAL NUTRITION ASSESSMENT.
[2025-04-30 18:42] LABS: Appearance Urine Cloudy; Glucose Urine UA Negative (Negative); PH 5.0 (5.0-9.0); Specific Gravity - Urine 1.010 (1.005-1.025); UMIC TRIGGER UA YES
[2025-04-30] MEDS: Ammonium Lactate 12 % Lotion 226 GM BOTTLE 1 APPL TOPICAL (21:04)
[2025-05-01] VITALS (7 sets, daily range): BP systolic 109–147; BP diastolic 58–76; PULSE 65–84; RESP 16–20; TEMP 36.2–37.2; O2SAT 93–100
[2025-05-01] MEDS: Furosemide 20 MG/2 ML VIAL IVPUSH ×2 (04:07→16:22)
[2025-05-01] MEDS: 0.9 % Sodium Chloride Flush 3 ML SYRINGE IVFLUSH ×2 (08:24→16:23)
[2025-05-01] MEDS: Ammonium Lactate 12 % Lotion 226 GM BOTTLE 1 APPL TOPICAL ×2 (08:37→21:15)
--- NOTE | 2025-05-01 15:06 | P.PNIM_ITS ---
Subjective Subjective Date of Service: 05/01/25 Interval History: Appears better today mentioned that yesterday Smiling, breathing is more stable than yesterday Endorses still suffering with a cough Noting hemoptysis intermixed with mucus Monitoring closely Review of Systems Review of Systems: Yes all other systems are reviewed and are negative Physical Exam 2 Exam: Exam: General: A&O x2. Comfortable, not in pain. Cardiac: S1, S2 auscultated with no S3/4, no MRG. Well perfused. Respiratory: Tachypneic and dyspneic, with reduced inspiratory breath times and sounds at the bases bilaterally to the mid zones, with crepitations auscultated on lower bases and mid zones, without upper airway wheezing. No peripheral or central cyanosis. Accessory muscles of respiration are being used. GI/ : No abdominal pain on palpation, no masses or distentions. MSK: Frail and cachectic, with kyphosis Neurological: Normal neurological examination on overview, without obvious CN II-XII abnormalities. Vital Signs: Vital Signs: Last Vital Signs Temp 99.0 F 05/01/25 11:09 Pulse 78 05/01/25 11:09 Resp 20 05/01/25 11:09 BP 111/75 05/01/25 11:09 Pulse Ox 98 05/01/25 11:09 O2 Del Method Nasal Cannula 05/01/25 11:09 O2 Flow Rate 2 05/01/25 11:09 FiO2 30 04/29/25 00:00 Oxygen Flow Rate 40 04/28/25 23:17 BMI result Body Mass Index 24.6 Objective Data Active Medications Albuterol Sulfate (Albuterol Sulfate (0.083%) 2.5 Mg/3 Ml Vial.Neb) 2.5 mg INHALE Q4H PRN PRN Reason: Shortness of Breath/Wheezing Last Admin: 04/29/25 14:41 Dose: 2.5 mg Documented By: SUSHANT Amiodarone HCl (Amiodarone Hcl 200 Mg Tablet) 200 mg PO DAILY [facility] Last Admin: 05/01/25 08:24 Dose: 200 mg Documented By: TALIA Benzonatate (Benzonatate 100 Mg Capsule) 100 mg PO TID PRN PRN Reason: Cough Furosemide (Furosemide 20 Mg/2 Ml Vial) 20 mg IVPUSH Q12H [facility]; Protocol Last Admin: 05/01/25 04:07 Dose: 20 mg Documented By: DARA Lactic Acid (Ammonium Lactate 12 % Lotion 226 Gm Bottle) 1 appl TOPICAL BID [facility]; Protocol Last Admin: 05/01/25 08:37 Dose: 1 appl Documented By: TALIA Melatonin (Melatonin 3 Mg Tablet) 9 mg PO BEDTIME PRN PRN Reason: Insomnia Last Admin: 04/29/25 22:05 Dose: 9 mg Documented By: CE Morphine Sulfate (Morphine Sulfate 4 Mg/Ml Cartridge) 0.5 mg IVPUSH Q3H PRN; Protocol PRN Reason: chronic back pain Last Admin: 04/30/25 02:14 Dose: 0.5 mg Documented By: CE Omeprazole (Omeprazole 20 Mg Capsule.) 20 mg PO BID@0630,1630 [facility] Last Admin: 05/01/25 05:42 Dose: 20 mg Documented By: DARA Prednisone (Prednisone 20 Mg Tablet) 40 mg PO DAILY [facility] Last Admin: 05/01/25 10:10 Dose: 40 mg Documented By: TALIA Sodium Chloride (0.9 % Sodium Chloride Flush 3 Ml Syringe) 3 ml IVFLUSH QSHIFT [facility] Last Admin: 05/01/25 08:24 Dose: 3 ml Documented By: TALIA Thiamine HCl (Thiamine Hcl 100 Mg Tablet) 100 mg PO DAILY [facility] Last Admin: 05/01/25 08:24 Dose: 100 mg Documented By: TALIA Labs 04/30/25 05:05 04/30/25 05:05 Labs: Laboratory Results - last 24 hr 04/30/25 18:25 Urine Color [place] A Urine Appearance Cloudy Urine pH 5.0 Ur Specific [place] 1.010 Urine Protein 100 (2+) H Urine Glucose (UA) Negative Urine Ketones Negative Urine Blood Large (3+) H Urine Nitrite Negative Ur Leukocyte Esterase Moderate (2+) H Urine RBC >20 H Urine WBC 21-50 H Ur Squamous Epith Cells 0-2 Urine Bacteria None Seen Hyaline Casts 3-5 Microbiology Microbiology Results: Microbiology 04/28/25 17:50 Blood Culture - Preliminary Blood - Venous No growth after 48 hours. 04/28/25 17:32 Blood Culture - Preliminary Blood - Venous No growth after 48 hours. Assessment and Plan (1) HTN (hypertension): Status: Acute (2) Acute hypotension: Status: Acute (3) Cardiomyopathy: Status: Acute (4) Acute on chronic systolic heart failure: Status: Acute (5) Pulmonary HTN: Status: Acute (6) Status post mitral valve replacement with bioprosthetic valve: Status: Acute (7) Severe mitral regurgitation: Status: Acute (8) A-fib: Status: Acute (9) Permanent atrial fibrillation: Status: Acute (10) Prolonged QT interval: Status: Acute (11) Supratherapeutic INR: Status: Acute (12) Current use of anticoagulant therapy: Status: Acute (13) Acute kidney injury superimposed on chronic kidney disease: Status: Acute (14) S/P ureteral stent placement: Status: Acute (15) Nephrolithiasis, uric acid: Status: Acute (16) Bilateral kidney stones: Status: Acute (17) CKD (chronic kidney disease) stage 3, GFR 30-59 ml/min: Status: Acute (18) Acute hyperkalemia: Status: Acute (19) Ureteral stent present: Status: Acute (20) Influenza A: Status: Acute (21) Sepsis: Status: Acute (22) Piriformis syndrome of left side: Status: Acute (23) COPD (chronic obstructive pulmonary disease): Status: Acute (24) Respiratory failure: Status: Acute Plan 84-year-old female, with a background medical history of paroxysmal atrial fibrillation on apixaban, porcine mitral valve replacement, HFrEF 15-20% s/p AICD, GORDON CPAP, CKD stage III B, HTN, HLD, pulmonary HTN, COPD not on home O2, recent admission 04/15-04/25/2025 for acute pyelonephritis and supratherapeutic INR (warfarin to apixaban) c/b influenza a URI, presented to emergency room 04/28 with altered mental status and shortness of breath, admitted to medical ICU with septic shock requiring pressor support 2/2 multifocal pneumonia & superimposed multifactorial acute hypoxic respiratory failure (PNA & acute CHF exacerbation rEF 15-20%), course c/b hematuria 2/2 supratherapeutic INR in the setting of retained ureteral stents due to previous nephrolithiasis & hydroureteronephrosis, transferred to medical floor 04/30/2025. Septic shock Multifocal pneumonia Recent pyelonephritis with hydroureteronephrosis 2/2 nephrolithiasis Hypotensive, required pressor support in MICU. X-ray revealing infrahilar opacities and diffuse pulmonary congestion likely reflecting a pneumonia. Completed treatment for pyelonephritis. Blood cultures -ve Patient was placed on ceftriaxone and doxycycline for 1 day, then discontinued Received volume resuscitation Patient was on metoprolol last admission, not carvedilol PLAN - resume ceftriaxone - resume doxycycline - start Solu-Medrol 40 mg b.i.d. IV - hold lisinopril - hold amlodipine - hold metoprolol Acute hypoxic respiratory failure Infective exacerbation of COPD Acute exacerbation is HFrEF 15-20% Pulmonary HTN Recent influenza A Patient has metoprolol and carvedilol both on her medication list; unclear why; we will clarify with family members Required high-flow for hypoxic respiratory failure. Intolerant of CPAP/BiPAP. DNR/DNI - no intubation. PLAN - furosemide 20 mg b.i.d. IV - clarify beta-nguyen medication and dose at home - continue oxygen as per protocol; aim for SpO2 > 92% - Prednisone 40mg OD PO - DuoNebs / albuterol - benzonatate p.r.n. - guaifenesin p.r.n. Pyelonephritis Nephrolithiasis Ureteral stenting Hematuria Patient was diagnosed and treated for pyelonephritis on previous admission The patient was transitioned from warfarin to apixaban on prior admission for her atrial fibrillation On admission, the patient is noted to have supratherapeutic INR. The patient's clinical course has been c/b hematuria in the setting of a supratherapeutic INR The patient received 2 units FFP, and vitamin K while in the ICU; which effectively reversed her INR PLAN - urology follow up - maintain Holt - consider CBI - avoid anticoagulation at this time Paroxysmal atrial fibrillation Supratherapeutic INR - previously on warfarin Anticoagulation with apixaban - currently held Patient was on metoprolol last admission, not carvedilol Patient on amiodarone, which was held in the ICU due to hypotension Anticoagulation is on hold due to hematuria. Patient was on warfarin during prior admission. This was discontinued, and apixaban was started. The patient presents with supratherapeutic INR around 6 - received FFP x2 and vitamin K with improvement in INR PLAN - recheck daily INR - FFP and vitamin K for increase - monitor for signs and symptoms of bleeding - resume amiodarone 200 mg OD p.o. - cardiology consultation - consider resumption of metoprolol GORDON Can not tolerate CPAP We will attempt again Chronic sacral and heel decubitus ulcers Wound Care consultation - airloss mattress - Right heel: Elevate heels off of bed surface with pillows. Float heels off of pillows. Apply skin prep allow to dry. Apply heel foam dressings, peel back and assess Q shift and change every 5-7 days and PRN - Coccyx: Off Load Pressure with Q2 hr turns and use of pillows - Cleanse with PH balance spray or wipes, pat dry. ?Apply thin layer of Triad to wound bed. Do not remove all of paste between applications as this may cause further skin damage.? Cover with foam dressing to aid in off loading and protection from friction. Change every other day and PRN. - Left lateral heel: cleanse with normal saline, apply skin prep palmer wound, apply durafiber ag, to wound bed, cover with heel foams, change every other day and PRN - elevate heels off surface of bed with pillows - Bilateral Lower Legs - Routine Cleansing. Apply Ammonium Lactate cream per provider orders. Lung nodule on CT - repeat chest CT in 3 mo outpt Thyroid nodules on CT - f/u output for thyroid US T10 fracture on CT Chronic back pain Likely secondary to fall at home in bathroom 4 weeks prior; pt hit back on toilet, did not seek medical evaluation at that time [facility] neurosurgery suggested fx appears stable, no need for transfer PLAN - pain management - outpatient evaluation - PT consulted [facility] - VTE: SCDs - CODE STATUS: DNR/DNI - DIET: Cardiac Total time managing care of this patient today: 45 minutes. Quality Stroke Does the patient have a stroke diagnosis?: No VTE Prior VTE?: No VTE Risk Level:: Medical - moderate - high VTE Device Contraindication: N/A - Device Ordered VTE Drug Contraindication: N/A - Med Ordered
[2025-05-01 15:28] LABS: Hematocrit 33.0 % (37.0-47.0); Hemoglobin 10.3 g/dl (12.0-16.0); Mean Corpuscular HGB Conc 31.2 g/dl (31.0-35.0); Mean Corpuscular Hemoglobin 28.2 pg (27.0-33.0); Mean Corpuscular Volume 90.4 fL (80.0-98.0); NRBC Abs Auto 0.000 X10*3/uL (0.0-0.012); NRBC Pct Auto 0.0 /100WBC (0.0-0.2); Platelet Count 155 X10*3/uL (160-400); Red Blood Count 3.65 X10*6/uL (4.20-5.50); White Blood Count 5.1 X10*3/uL (4.8-10.8)
[2025-05-01 15:35] LABS: INTERNATIONAL NORM RATIO 1.2 (0.9-1.1); Prothrombin Time 15.1 SEC (11.2-13.5)
[2025-05-01 15:43] LABS: Alanine Aminotransferase 16 U/L (0-31); Albumin Level 3.4 g/dL (3.5-5.0); Alkaline Phosphatase 133 U/L (39-117); Anion Gap 12 (12-20); Aspartate Amino Transferase 32 U/L (5-31); Blood Urea Nitrogen 28 mg/dL (9-16); Calcium 8.8 mg/dL (8.4-10.2); Carbon Dioxide 35 mmol/L (22-29); Chloride 106 mmol/L (96-108); Creatinine Clr Calc Pharmacy 58.7; Estimated Glomerular Filt Rate > 60; Potassium 4.8 mmol/L (3.3-5.1); Sodium 148 mmol/L (135-145); Total Protein 5.6 g/dL (6.5-8.0)
[2025-05-02] VITALS (9 sets, daily range): BP systolic 111–126; BP diastolic 61–74; PULSE 68–99; RESP 18–32; TEMP 36.2–37.2; O2SAT 92–98; BMI 23.9
[2025-05-02] MEDS: Furosemide 20 MG/2 ML VIAL IVPUSH ×2 (04:22→16:33)
[2025-05-02 07:46] LABS: MANUAL DIFF FLAG NO
[2025-05-02 08:08] LABS: Hematocrit 33.1 % (37.0-47.0); Hemoglobin 10.3 g/dl (12.0-16.0); Imm Gran Abs Auto 0.03 X10*3/uL (0.00-0.03); Imm Gran Pct Auto 0.5 % (0.0-0.4); Lymphocytes Absolute Auto 0.6 X10*3/uL (1.2-4.9); Mean Corpuscular HGB Conc 31.1 g/dl (31.0-35.0); Mean Corpuscular Hemoglobin 27.9 pg (27.0-33.0); Mean Corpuscular Volume 89.7 fL (80.0-98.0); NRBC Abs Auto 0.020 X10*3/uL (0.0-0.012); NRBC Pct Auto 0.3 /100WBC (0.0-0.2); Platelet Count 176 X10*3/uL (160-400); Red Blood Count 3.69 X10*6/uL (4.20-5.50); White Blood Count 5.8 X10*3/uL (4.8-10.8)
[2025-05-02 08:12] LABS: INTERNATIONAL NORM RATIO 1.2 (0.9-1.1); Prothrombin Time 15.1 SEC (11.2-13.5)
[2025-05-02 08:21] LABS: Anion Gap 12 (12-20); Blood Urea Nitrogen 28 mg/dL (9-16); Calcium 9.2 mg/dL (8.4-10.2); Carbon Dioxide 34 mmol/L (22-29); Chloride 106 mmol/L (96-108); Creatinine Clr Calc Pharmacy 57.8; Estimated Glomerular Filt Rate > 60; Potassium 4.7 mmol/L (3.3-5.1); Sodium 147 mmol/L (135-145)
[2025-05-02] MEDS: Ammonium Lactate 12 % Lotion 226 GM BOTTLE 1 APPL TOPICAL ×2 (08:39→21:13)
[2025-05-02] MEDS: 0.9 % Sodium Chloride Flush 3 ML SYRINGE IVFLUSH ×3 (08:39→21:02)
--- NOTE | 2025-05-02 16:03 | HO.PM.IMPN ---
Subjective Subjective Date of Service: 05/02/25 Interval History: No new complaints or issues today. Patient feels well overall. Reports persistent hemoptysis, however decreased in intensity as compared to yesterday. No worsening respiratory status Review of Systems Review of Systems: Yes all other systems are reviewed and are negative Physical Exam Exam: Exam: General: A&O x2. Comfortable, not in pain. Cardiac: S1, S2 auscultated with no S3/4, no MRG. Well perfused. Respiratory: Tachypneic and dyspneic, with reduced inspiratory breath times and sounds at the bases bilaterally to the mid zones, with crepitations auscultated on lower bases and mid zones, without upper airway wheezing. No peripheral or central cyanosis. Accessory muscles of respiration are being used. GI/ : No abdominal pain on palpation, no masses or distentions. MSK: Frail and cachectic, with kyphosis Neurological: Normal neurological examination on overview, without obvious CN II-XII abnormalities. Vital Signs: Vital Signs: Last Vital Signs Temp 97.8 F 05/02/25 15:05 Pulse 94 05/02/25 15:05 Resp 20 05/02/25 15:05 BP 117/74 05/02/25 15:05 Pulse Ox 93 05/02/25 15:05 O2 Del Method Nasal Cannula 05/02/25 15:05 O2 Flow Rate 1 05/02/25 15:05 FiO2 30 04/29/25 00:00 Oxygen Flow Rate 40 04/28/25 23:17 BMI result Body Mass Index 23.9 Objective Data Active Medications Albuterol Sulfate (Albuterol Sulfate (0.083%) 2.5 Mg/3 Ml Vial.Neb) 2.5 mg INHALE Q4H PRN PRN Reason: Shortness of Breath/Wheezing Last Admin: 04/29/25 14:41 Dose: 2.5 mg Documented By: SUSHANT Amiodarone HCl (Amiodarone Hcl 200 Mg Tablet) 200 mg PO DAILY [facility] Last Admin: 05/02/25 08:38 Dose: 200 mg Documented By: TALIA Benzonatate (Benzonatate 100 Mg Capsule) 100 mg PO TID PRN PRN Reason: Cough Furosemide (Furosemide 20 Mg/2 Ml Vial) 20 mg IVPUSH Q12H VIOLETA; Protocol Last Admin: 05/02/25 04:22 Dose: 20 mg Documented By: DARA Lactic Acid (Ammonium Lactate 12 % Lotion 226 Gm Bottle) 1 appl TOPICAL BID [facility]; Protocol Last Admin: 05/02/25 08:39 Dose: 1 appl Documented By: TALIA Melatonin (Melatonin 3 Mg Tablet) 9 mg PO BEDTIME PRN PRN Reason: Insomnia Last Admin: 04/29/25 22:05 Dose: 9 mg Documented By: CE Morphine Sulfate (Morphine Sulfate 4 Mg/Ml Cartridge) 0.5 mg IVPUSH Q3H PRN; Protocol PRN Reason: chronic back pain Last Admin: 05/02/25 01:49 Dose: 0.5 mg Documented By: DARA Omeprazole (Omeprazole 20 Mg Capsule.) 20 mg PO BID@0630,1630 [facility] Last Admin: 05/02/25 06:07 Dose: 20 mg Documented By: DARA Prednisone (Prednisone 20 Mg Tablet) 40 mg PO DAILY [facility] Last Admin: 05/02/25 08:38 Dose: 40 mg Documented By: TALIA Sodium Chloride (0.9 % Sodium Chloride Flush 3 Ml Syringe) 3 ml IVFLUSH QSHIFT [facility] Last Admin: 05/02/25 08:39 Dose: 3 ml Documented By: TALIA Thiamine HCl (Thiamine Hcl 100 Mg Tablet) 100 mg PO DAILY [facility] Last Admin: 05/02/25 08:38 Dose: 100 mg Documented By: TALIA Labs 05/02/25 07:37 05/02/25 07:36 Labs: Laboratory Results - last 24 hr 05/02/25 05/02/25 07:36 07:37 MCV 89.7 MCH 27.9 MCHC 31.1 RDW 16.1 H Plt Count 176 MPV 10.9 Immature Gran % (Auto) 0.5 H Neut % (Auto) 81.4 H Lymph % (Auto) 10.0 L Navarro % (Auto) 7.6 Eos % (Auto) 0.3 Baso % (Auto) 0.2 Lymph # (Auto) 0.6 L Navarro # (Auto) 0.4 Eos # (Auto) 0.0 Baso # (Auto) 0.0 Abs Immat Gran (auto) 0.03 Absolute Neuts (auto) 4.7 Absolute Nucleated RBC 0.020 H Nucleated RBC % (auto) 0.3 H PT 15.1 H INR 1.2 H Anion Gap 12 Estim Creat Clear Calc 57.8 Estimated GFR > 60 Random Glucose 133 H Calcium 9.2 Assessment and Plan (1) Cardiomyopathy: Status: Acute (2) Acute on chronic systolic heart failure: Status: Acute (3) HFrEF (heart failure with reduced ejection fraction): Status: Acute (4) Pulmonary HTN: Status: Acute (5) Prolonged QT interval: Status: Acute (6) Permanent atrial fibrillation: Status: Acute (7) Status post mitral valve replacement with bioprosthetic valve: Status: Acute (8) Supratherapeutic INR: Status: Acute (9) Current use of anticoagulant therapy: Status: Acute (10) CKD (chronic kidney disease) stage 3, GFR 30-59 ml/min: Status: Acute (11) Acute kidney injury superimposed on chronic kidney disease: Status: Acute (12) Influenza A: Status: Acute (13) Sepsis: Status: Acute (14) Pyelonephritis: Status: Acute (15) COPD (chronic obstructive pulmonary disease): Status: Acute Plan 84-year-old female, with a background medical history of paroxysmal atrial fibrillation on apixaban, porcine mitral valve replacement, HFrEF 15-20% s/p AICD, GORDON CPAP, CKD stage III B, HTN, HLD, pulmonary HTN, COPD not on home O2, recent admission 04/15-04/25/2025 for acute pyelonephritis and supratherapeutic INR (warfarin to apixaban) c/b influenza a URI, presented to emergency room 04/28 with altered mental status and shortness of breath, admitted to medical ICU with septic shock requiring pressor support 2/2 multifocal pneumonia & superimposed multifactorial acute hypoxic respiratory failure (PNA & acute CHF exacerbation rEF 15-20%), course c/b hematuria 2/2 supratherapeutic INR in the setting of retained ureteral stents due to previous nephrolithiasis & hydroureteronephrosis, transferred to medical floor 04/30/2025. Septic shock Multifocal pneumonia Recent pyelonephritis with hydroureteronephrosis 2/2 nephrolithiasis Hypotensive, required pressor support in MICU. X-ray revealing infrahilar opacities and diffuse pulmonary congestion likely reflecting a pneumonia. Completed treatment for pyelonephritis. Blood cultures -ve Patient was placed on ceftriaxone and doxycycline for 1 day, then discontinued Received volume resuscitation Patient was on metoprolol last admission, not carvedilol PLAN - continue ceftriaxone - continue doxycycline - continue prednisone 40mg OD PO - hold lisinopril - hold amlodipine - hold metoprolol Acute hypoxic respiratory failure Infective exacerbation of COPD Acute exacerbation is HFrEF 15-20% Pulmonary HTN Recent influenza A Patient has metoprolol and carvedilol both on her medication list; unclear why; we will clarify with family members Required high-flow for hypoxic respiratory failure. Intolerant of CPAP/BiPAP. DNR/DNI - no intubation. PLAN - furosemide 20 mg b.i.d. IV - clarify beta-nguyen medication and dose at home - continue oxygen as per protocol; aim for SpO2 > 92% - Prednisone 40mg OD PO - DuoNebs / albuterol - benzonatate p.r.n. - guaifenesin p.r.n. Pyelonephritis Nephrolithiasis Ureteral stenting Hematuria Patient was diagnosed and treated for pyelonephritis on previous admission The patient was transitioned from warfarin to apixaban on prior admission for her atrial fibrillation On admission, the patient is noted to have supratherapeutic INR. The patient's clinical course has been c/b hematuria in the setting of a supratherapeutic INR The patient received 2 units FFP, and vitamin K while in the ICU; which effectively reversed her INR PLAN - urology follow up - maintain Holt - consider CBI - avoid anticoagulation at this time Paroxysmal atrial fibrillation Supratherapeutic INR - previously on warfarin Anticoagulation with apixaban - currently held Patient was on metoprolol last admission, not carvedilol Patient on amiodarone, which was held in the ICU due to hypotension Anticoagulation is on hold due to hematuria. Patient was on warfarin during prior admission. This was discontinued, and apixaban was started. The patient presents with supratherapeutic INR around 6 - received FFP x2 and vitamin K with improvement in INR PLAN - recheck daily INR - FFP and vitamin K for increase - monitor for signs and symptoms of bleeding - resume amiodarone 200 mg OD p.o. - cardiology consultation - consider resumption of metoprolol GORDON Can not tolerate CPAP We will attempt again Chronic sacral and heel decubitus ulcers Wound Care consultation - airloss mattress - Right heel: Elevate heels off of bed surface with pillows. Float heels off of pillows. Apply skin prep allow to dry. Apply heel foam dressings, peel back and assess Q shift and change every 5-7 days and PRN - Coccyx: Off Load Pressure with Q2 hr turns and use of pillows - Cleanse with PH balance spray or wipes, pat dry. ?Apply thin layer of Triad to wound bed. Do not remove all of paste between applications as this may cause further skin damage.? Cover with foam dressing to aid in off loading and protection from friction. Change every other day and PRN. - Left lateral heel: cleanse with normal saline, apply skin prep palmer wound, apply durafiber ag, to wound bed, cover with heel foams, change every other day and PRN - elevate heels off surface of bed with pillows - Bilateral Lower Legs - Routine Cleansing. Apply Ammonium Lactate cream per provider orders. Lung nodule on CT - repeat chest CT in 3 mo outpt Thyroid nodules on CT - f/u output for thyroid US T10 fracture on CT Chronic back pain Likely secondary to fall at home in bathroom 4 weeks prior; pt hit back on toilet, did not seek medical evaluation at that time [facility] neurosurgery suggested fx appears stable, no need for transfer PLAN - pain management - outpatient evaluation - PT consulted [facility] - VTE: SCDs - CODE STATUS: DNR/DNI - DIET: Cardiac Total time managing care of this patient today: 45 minutes. Quality Stroke Does the patient have a stroke diagnosis?: No VTE Prior VTE?: No VTE Risk Level:: Medical - moderate - high VTE Device Contraindication: N/A - Device Ordered VTE Drug Contraindication: N/A - Med Ordered
[2025-05-03] VITALS (14 sets, daily range): BP systolic 105–133; BP diastolic 56–74; PULSE 65–98; RESP 14–20; TEMP 36.1–37.2; O2SAT 93–100; BMI 24.2
[2025-05-03] MEDS: Furosemide 20 MG/2 ML VIAL IVPUSH ×2 (04:25→17:03)
[2025-05-03 08:25] LABS: MANUAL DIFF FLAG NO
[2025-05-03 08:33] LABS: Hematocrit 37.5 % (37.0-47.0); Hemoglobin 11.7 g/dl (12.0-16.0); Imm Gran Abs Auto 0.07 X10*3/uL (0.00-0.03); Imm Gran Pct Auto 0.9 % (0.0-0.4); Lymphocytes Absolute Auto 1.2 X10*3/uL (1.2-4.9); Mean Corpuscular HGB Conc 31.2 g/dl (31.0-35.0); Mean Corpuscular Hemoglobin 28.1 pg (27.0-33.0); Mean Corpuscular Volume 90.1 fL (80.0-98.0); NRBC Abs Auto 0.030 X10*3/uL (0.0-0.012); NRBC Pct Auto 0.4 /100WBC (0.0-0.2); Platelet Count 235 X10*3/uL (160-400); Red Blood Count 4.16 X10*6/uL (4.20-5.50); White Blood Count 7.9 X10*3/uL (4.8-10.8)
[2025-05-03 08:35] LABS: INTERNATIONAL NORM RATIO 1.4 (0.9-1.1); Prothrombin Time 17.5 SEC (11.2-13.5)
[2025-05-03 08:43] LABS: Anion Gap 16 (12-20); Blood Urea Nitrogen 40 mg/dL (9-16); Calcium 9.6 mg/dL (8.4-10.2); Carbon Dioxide 33 mmol/L (22-29); Chloride 105 mmol/L (96-108); Creatinine Clr Calc Pharmacy 43.2; Estimated Glomerular Filt Rate > 60; Potassium 4.8 mmol/L (3.3-5.1); Sodium 149 mmol/L (135-145)
--- NOTE | 2025-05-03 09:14 | HO.ANESPROP2 ---
Documented by User: Francisca Pardo NP 05/03/25 09:19 HPI - Anesthesia Eval Consult details Narrative: 84 yr old female for right Cystoscopy, Ureteroroscopy, Retro, Laser,with possible stent exchange *DNR/DNI INR 1.4 on 05/03/25 s/p cysto 11/2023 with GA, LMA 3 Readmitted from rehab 04/28/25 with recent Influenza A, accidental oxycodone overdose which she was given at rehab for back pain. Hemoptysis: reported 05/02/25, on high flow Nasal cannula Admitted 04/15-04/25/25 -Inpatient cardiology consult on 04/20, echo updated: Overall, many chronic cardiac issues but seems stable overall. Her cardiac risk for general anesthesia would be intermediate to high. Not modifiable. May proceed as planned. -Chronic heart failure: no acute symptoms, not volume overloaded -Severe biventricular dysfunction by echo: echo updated 04/17/25, EF 15-20%, see below. 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 -T10 fracture on CT: likely secondary to fall at home in bathroom 2 weeks prior to 04/15 admission; pt hit back on toilet, did not seek medical evaluation at that time Acute on chronic kidney disease: seen by nephro 04/17, baseline creatinine is 0.9 - 1.1; which increased to 2.71 upon presentation upon gentle fluid resuscitation it is trending down GORDON: on CPAP PMFSH Active Problems Active Problems: All Active Problems Transaminitis (Acute) Sepsis (Acute) Acute hypotension (Acute) Flu (Acute) Respiratory failure (Acute) CHF (congestive heart failure) (Acute) CAP (community acquired pneumonia) (Acute) Influenza A (Acute) Ureteral stent retained (Acute) Thyroid nodule (Acute) Supratherapeutic INR (Acute) Hospital discharge follow-up (Acute) Acute on chronic systolic heart failure (Acute) HFrEF (heart failure with reduced ejection fraction) (Acute) Wound, open, leg (Acute) Piriformis syndrome of left side (Acute) Hip pain, left (Acute) Ureteral stone (Acute) Closed fracture of left tibial plateau (Acute) CKD (chronic kidney disease) stage 3, GFR 30-59 ml/min (Acute) Bilateral kidney stones (Acute) Bilateral lower extremity edema (Acute) SOB (shortness of breath) (Acute) Hypokalemia (Acute) Vitamin D deficiency (Acute) Kidney stone (Acute) Annual physical exam (Acute) Nephrolithiasis, uric acid (Acute) Hyperlipidemia (Acute) HTN (hypertension) (Acute) A-fib (Acute) GORDON (obstructive sleep apnea) (Acute) COPD (chronic obstructive pulmonary disease) (Acute) Pulmonary HTN (Acute) Severe mitral regurgitation (Acute) Thiamine deficiency (Acute) Osteoporosis (Acute) Current use of anticoagulant therapy (Acute) Past Medical History Medical History Cardiomyopathy Permanent atrial fibrillation Preoperative cardiovascular examination Thyroid nodule incidentally noted on imaging study Lung nodule Ureteral stent present HFrEF (heart failure with reduced ejection fraction) Chronic atrial fibrillation Chronic anticoagulation Obesity CKD (chronic kidney disease) stage 3, GFR 30-59 ml/min Nephrolithiasis, uric acid Hyperlipidemia HTN (hypertension) A-fib GORDON (obstructive sleep apnea) COPD (chronic obstructive pulmonary disease) Pulmonary HTN Severe mitral regurgitation Thiamine deficiency Osteoporosis Functional capacity: independent ambulation Family History Family History Father No problems noted. Mother No problems noted. Maternal Aunt Breast cancer Family history of problems with anesthesia: No Surgical History Surgical History S/P ureteral stent placement Status post tricuspid valve repair Status post mitral valve replacement with bioprosthetic valve Hx of hernia repair History of open reduction and internal fixation (ORIF) procedure History of Problems with Anesthesia: No Social History Social History Household Members: None Housing: Other Housing Other:: [facility] Are you a primary physician locums urgent care to a significant other at home: No Do you presently have visiting nurse or other home services: No Alcohol intake: never Comment: 1:1 sitter Patient Tobacco Use Status: Former Tobacco user Tobacco use type: Cigarette e-Cigarette/Vaping Use: Never Used Second Hand Smoke Exposure: No Advance Directives Date on File: 11/28/23 service: No Current occupational status: retired Cognitive needs: No Hearing needs: No Vision needs: No Meds Allergies Allergy/AdvReac Type Severity Reaction Status Date / Time hydrocodone (From Vicodin) Allergy Mild CHEST PAIN Verified 04/28/25 17:16 Active Medications: Current Medications Albuterol Sulfate (Albuterol Sulfate (0.083%) 2.5 Mg/3 Ml Vial.Neb) 2.5 mg INHALE Q4H PRN PRN Reason: Shortness of Breath/Wheezing Last Admin: 04/29/25 14:41 Dose: 2.5 mg Amiodarone HCl (Amiodarone Hcl 200 Mg Tablet) 200 mg PO DAILY [facility] Last Admin: 05/02/25 08:38 Dose: 200 mg Benzonatate (Benzonatate 100 Mg Capsule) 100 mg PO TID PRN PRN Reason: Cough Furosemide (Furosemide 20 Mg/2 Ml Vial) 20 mg IVPUSH Q12H [facility]; Protocol Last Admin: 05/03/25 04:25 Dose: 20 mg Lactic Acid (Ammonium Lactate 12 % Lotion 226 Gm Bottle) 1 appl TOPICAL BID [facility]; Protocol Last Admin: 05/02/25 21:13 Dose: 1 appl Melatonin (Melatonin 3 Mg Tablet) 9 mg PO BEDTIME PRN PRN Reason: Insomnia Last Admin: 04/29/25 22:05 Dose: 9 mg Morphine Sulfate (Morphine Sulfate 4 Mg/Ml Cartridge) 0.5 mg IVPUSH Q3H PRN; Protocol PRN Reason: chronic back pain Last Admin: 05/03/25 00:56 Dose: 0.5 mg Omeprazole (Omeprazole 20 Mg Capsule.Dr) 20 mg PO BID@0630,1630 [facility] Last Admin: 05/03/25 06:38 Dose: Not Given Prednisone (Prednisone 20 Mg Tablet) 40 mg PO DAILY [facility] Last Admin: 05/02/25 08:38 Dose: 40 mg Sodium Chloride (0.9 % Sodium Chloride Flush 3 Ml Syringe) 3 ml IVFLUSH QSHIFT [facility] Last Admin: 05/02/25 21:02 Dose: 3 ml Thiamine HCl (Thiamine Hcl 100 Mg Tablet) 100 mg PO DAILY [facility] Last Admin: 05/02/25 08:38 Dose: 100 mg Home Medications ?Medication ?Instructions ?Recorded ?Confirmed ?Last Taken ?Type ascorbate calcium (vitamin C) 500 500 mg PO DAILY 01/04/23 04/29/25 04/28/25 History mg tablet czjwfhcgsijh-Uq-cssk-minerals 1 tab PO DAILY 08/0404/29/25 12/07/24 History zinc gluconate 50 mg tablet 50 mg PO DAILY 01/04/23 04/29/25 04/28/25 History acetaminophen 325 mg capsule 650 mg PO Q6H PRN Fever Or Pain 01/20/24 04/29/25 04/27/25 History amiodarone 200 mg tablet 200 mg PO DAILY 07/27/24 04/29/25 04/15/25 History omeprazole 20 mg capsule,delayed 20 mg PO BID@0630,1630 12/07/24 04/29/25 04/28/25 History release thiamine HCl (vitamin B1) 100 mg 100 mg PO DAILY 01/12/25 04/29/25 Unknown History capsule amlodipine 5 mg tablet 5 mg PO DAILY 04/15/25 04/29/25 04/28/25 History carvedilol 12.5 mg tablet 12.5 mg PO BID 04/15/25 04/29/25 04/28/25 History furosemide 40 mg tablet (Lasix) 40 mg PO BID 04/15/25 04/29/25 04/28/25 History umeclidinium 62.5 mcg-vilanterol 1 inh inhalation DAILY 04/15/25 04/29/25 04/28/25 History 25 mcg/actuation powdr for inhalation (Anoro Ellipta) cholecalciferol (vitamin D3) 10 10 mcg PO DAILY 04/16/25 04/29/25 04/28/25 History mcg (400 unit) tablet (Vitamin D3) potassium chloride 20 mEq 20 meq PO DAILY 04/16/25 04/29/25 04/28/25 History tablet,extended release albuterol sulfate 90 mcg/actuation 2 puff inhalation Q4H PRN 04/29/25 04/29/25 Unknown History aerosol inhaler shortness of breath or wheezing ipratropium 0.5 mg-albuterol 3 mg 3 ml inhalation Q6H PRN Wheezing 04/29/25 04/29/25 04/28/25 History (2.5 mg base)/3 mL nebulization soln Exam Height,Weight and Vital Signs: Height 5 ft 3 in Weight 62 kg Last Vital Signs Temp 97.1 F 05/03/25 08:00 Pulse 82 05/03/25 08:00 Resp 20 05/03/25 08:00 BP 120/72 05/03/25 08:00 Pulse Ox 99 05/03/25 08:00 O2 Del Method High Flow Nasal Cannula 05/03/25 08:00 O2 Flow Rate 60 05/03/25 08:00 FiO2 30 05/03/25 08:00 Oxygen Flow Rate 40 04/28/25 23:17 Pertinent Lab Results Pertinent Lab Results: Laboratory Tests 04/28/25 04/28/25 04/28/25 17:32 17:39 17:50 WBC 6.2 RBC 4.18 L Hgb 11.9 L Hct 36.6 L MCV 87.6 MCH 28.5 MCHC 32.5 RDW 15.8 Plt Count 152 L D MPV 11.4 Immature Gran % (Auto) 0.6 H Neut % (Auto) 84.8 H Lymph % (Auto) 9.3 L [place] % (Auto) 4.6 Eos % (Auto) 0.5 Baso % (Auto) 0.2 Lymph # (Auto) 0.6 L [place] # (Auto) 0.3 Eos # (Auto) 0.0 Baso # (Auto) 0.0 Abs Immat Gran (auto) 0.04 H Absolute Neuts (auto) 5.3 Absolute Nucleated RBC 0.000 Nucleated RBC % (auto) 0.0 PT 66.2 H D INR 5.7 H* D Fibrinogen VBG pH 7.38 VBG pCO2 62 VBG pO2 37 VBG HCO3 37 H VBG O2 Saturation 53.0 VBG Base Excess 10.4 Sodium 139 Potassium 5.0 D Chloride 104 Carbon Dioxide 29 Anion Gap 11 L BUN 50 H Creatinine 1.31 Estim Creat Clear Calc 27.5 Estimated GFR 39 Random Glucose 108 Haptoglobin Lactic Acid 1.1 Calcium 8.4 Phosphorus Magnesium 2.4 Total Bilirubin 1.0 AST 54 H ALT 23 Alkaline Phosphatase 141 H Lactate Dehydrogenase Troponin I High Sens 36.7 H C-Reactive Protein NT-Pro-B Natriuret Pep 9082.2 H Total Protein 5.4 L Albumin 2.8 L Procalcitonin TSH 0.59 Urine Color Urine Appearance Urine pH Ur Specific [place] Urine Protein Urine Glucose (UA) Urine Ketones Urine Blood Urine Nitrite Ur Leukocyte Esterase Urine RBC Urine WBC Ur Squamous Epith Cells Urine Bacteria Hyaline Casts Influenza Type A (PCR) POSITIVE A Influenza Type B (PCR) NEGATIVE RSV RNA Qual (PCR) NEGATIVE SARS-CoV-2 RNA (RT-PCR) NEGATIVE Blood Type Antibody Screen 04/28/25 04/29/25 04/29/25 18:51 05:13 05:13 WBC 3.3 L RBC 3.15 L D Hgb 8.9 L D Hct 27.5 L D MCV 87.3 MCH 28.3 MCHC 32.4 RDW 15.6 Plt Count 93 L D MPV 11.0 Immature Gran % (Auto) 0.3 Neut % (Auto) 84.7 H Lymph % (Auto) 8.7 L [place] % (Auto) 5.4 Eos % (Auto) 0.9 Baso % (Auto) 0.0 Lymph # (Auto) 0.3 L [place] # (Auto) 0.2 Eos # (Auto) 0.0 Baso # (Auto) 0.0 Abs Immat Gran (auto) 0.01 Absolute Neuts (auto) 2.8 Absolute Nucleated RBC 0.000 Nucleated RBC % (auto) 0.0 PT 71.3 H INR 6.1 H* Fibrinogen VBG pH VBG pCO2 VBG pO2 VBG HCO3 VBG O2 Saturation VBG Base Excess Sodium 141 Potassium 4.3 Chloride 104 Carbon Dioxide 28 Anion Gap 13 BUN 43 H Creatinine 0.99 Estim Creat Clear Calc 36.3 Estimated GFR 54 Random Glucose 96 Haptoglobin Lactic Acid Calcium 8.2 L Phosphorus 2.4 L Magnesium 2.6 Total Bilirubin 1.0 AST 41 H ALT 18 Alkaline Phosphatase 123 H Lactate Dehydrogenase Troponin I High Sens 31.9 H C-Reactive Protein NT-Pro-B Natriuret Pep Total Protein 5.2 L Albumin 3.5 3.5 Procalcitonin TSH Urine Color Urine Appearance Urine pH Ur Specific [place] Urine Protein Urine Glucose (UA) Urine Ketones Urine Blood Urine Nitrite Ur Leukocyte Esterase Urine RBC Urine WBC Ur Squamous Epith Cells Urine Bacteria Hyaline Casts Influenza Type A (PCR) Influenza Type B (PCR) RSV RNA Qual (PCR) SARS-CoV-2 RNA (RT-PCR) Blood Type Antibody Screen 04/29/25 04/29/25 04/29/25 05:15 06:31 14:59 WBC RBC Hgb Hct MCV MCH MCHC RDW Plt Count MPV Immature Gran % (Auto) Neut % (Auto) Lymph % (Auto) [place] % (Auto) Eos % (Auto) Baso % (Auto) Lymph # (Auto) [place] # (Auto) Eos # (Auto) Baso # (Auto) Abs Immat Gran (auto) Absolute Neuts (auto) Absolute Nucleated RBC Nucleated RBC % (auto) PT INR Fibrinogen VBG pH 7.53 H VBG pCO2 38 VBG pO2 95 VBG HCO3 32 H VBG O2 Saturation 99.0 VBG Base Excess 9.7 Sodium Potassium Chloride Carbon Dioxide Anion Gap BUN Creatinine Estim Creat Clear Calc Estimated GFR Random Glucose Haptoglobin 149 Lactic Acid Calcium Phosphorus Magnesium Total Bilirubin AST ALT Alkaline Phosphatase Lactate Dehydrogenase Troponin I High Sens C-Reactive Protein NT-Pro-B Natriuret Pep Total Protein Albumin Procalcitonin TSH Urine Color Urine Appearance Urine pH Ur Specific [place] Urine Protein Urine Glucose (UA) Urine Ketones Urine Blood Urine Nitrite Ur Leukocyte Esterase Urine RBC Urine WBC Ur Squamous Epith Cells Urine Bacteria Hyaline Casts Influenza Type A (PCR) Influenza Type B (PCR) RSV RNA Qual (PCR) SARS-CoV-2 RNA (RT-PCR) Blood Type A Positive Antibody Screen NEGATIVE 04/29/25 04/30/25 04/30/25 15:00 05:05 18:25 WBC 4.4 L 4.0 L RBC 3.42 L 3.48 L Hgb 9.7 L 9.7 L Hct 29.6 L 30.7 L MCV 86.5 88.2 MCH 28.4 27.9 MCHC 32.8 31.6 RDW 15.9 16.0 Plt Count 125 L D 120 L MPV 11.6 10.9 Immature Gran % (Auto) 0.2 0.8 H Neut % (Auto) 86.6 H 82.1 H Lymph % (Auto) 7.5 L 10.8 L [place] % (Auto) 5.0 5.5 Eos % (Auto) 0.7 0.8 Baso % (Auto) 0.0 0.0 Lymph # (Auto) 0.3 L 0.4 L [place] # (Auto) 0.2 0.2 Eos # (Auto) 0.0 0.0 Baso # (Auto) 0.0 0.0 Abs Immat Gran (auto) 0.01 0.03 Absolute Neuts (auto) 3.8 3.3 Absolute Nucleated RBC 0.000 0.000 Nucleated RBC % (auto) 0.0 0.0 PT 22.7 H D 16.6 H D INR 1.9 H D 1.4 H Fibrinogen 419 VBG pH VBG pCO2 VBG pO2 VBG HCO3 VBG O2 Saturation VBG Base Excess Sodium 144 147 H Potassium 4.7 4.5 Chloride 106 107 Carbon Dioxide 28 31 H Anion Gap 15 14 BUN 38 H 33 H Creatinine 0.82 0.76 Estim Creat Clear Calc 42.8 46.2 Estimated GFR > 60 > 60 Random Glucose 133 H 116 H Haptoglobin Lactic Acid Calcium 8.4 8.4 Phosphorus 2.7 Magnesium 2.5 Total Bilirubin 1.1 H AST 42 H ALT 23 Alkaline Phosphatase 142 H Lactate Dehydrogenase 238 H Troponin I High Sens C-Reactive Protein 2.85 H NT-Pro-B Natriuret Pep 85663.3 H Total Protein 5.8 L Albumin 3.8 3.5 Procalcitonin 0.04 TSH Urine Color [place] A Urine Appearance Cloudy Urine pH 5.0 Ur Specific [place] 1.010 Urine Protein 100 (2+) H Urine Glucose (UA) Negative Urine Ketones Negative Urine Blood Large (3+) H Urine Nitrite Negative Ur Leukocyte Esterase Moderate (2+) H Urine RBC >20 H Urine WBC 21-50 H Ur Squamous Epith Cells 0-2 Urine Bacteria None Seen Hyaline Casts 3-5 Influenza Type A (PCR) Influenza Type B (PCR) RSV RNA Qual (PCR) SARS-CoV-2 RNA (RT-PCR) Blood Type Antibody Screen 05/01/25 05/02/25 05/02/25 15:21 07:36 07:37 WBC 5.1 5.8 RBC 3.65 L 3.69 L Hgb 10.3 L 10.3 L Hct 33.0 L 33.1 L MCV 90.4 89.7 MCH 28.2 27.9 MCHC 31.2 31.1 RDW 15.9 16.1 H Plt Count 155 L D 176 MPV 11.3 10.9 Immature Gran % (Auto) 0.5 H Neut % (Auto) 81.4 H Lymph % (Auto) 10.0 L [place] % (Auto) 7.6 Eos % (Auto) 0.3 Baso % (Auto) 0.2 Lymph # (Auto) 0.6 L [place] # (Auto) 0.4 Eos # (Auto) 0.0 Baso # (Auto) 0.0 Abs Immat Gran (auto) 0.03 Absolute Neuts (auto) 4.7 Absolute Nucleated RBC 0.000 0.020 H Nucleated RBC % (auto) 0.0 0.3 H PT 15.1 H 15.1 H INR 1.2 H 1.2 H Fibrinogen VBG pH VBG pCO2 VBG pO2 VBG HCO3 VBG O2 Saturation VBG Base Excess Sodium 148 H 147 H Potassium 4.8 4.7 Chloride 106 106 Carbon Dioxide 35 H 34 H Anion Gap 12 12 BUN 28 H 28 H Creatinine 0.66 0.62 Estim Creat Clear Calc 58.7 57.8 Estimated GFR > 60 > 60 Random Glucose 163 H 133 H Haptoglobin Lactic Acid Calcium 8.8 9.2 Phosphorus Magnesium Total Bilirubin 0.9 AST 32 H ALT 16 Alkaline Phosphatase 133 H Lactate Dehydrogenase Troponin I High Sens C-Reactive Protein NT-Pro-B Natriuret Pep Total Protein 5.6 L Albumin 3.4 L Procalcitonin TSH Urine Color Urine Appearance Urine pH Ur Specific [place] Urine Protein Urine Glucose (UA) Urine Ketones Urine Blood Urine Nitrite Ur Leukocyte Esterase Urine RBC Urine WBC Ur Squamous Epith Cells Urine Bacteria Hyaline Casts Influenza Type A (PCR) Influenza Type B (PCR) RSV RNA Qual (PCR) SARS-CoV-2 RNA (RT-PCR) Blood Type Antibody Screen 05/03/25 07:34 WBC 7.9 RBC 4.16 L Hgb 11.7 L Hct 37.5 MCV 90.1 MCH 28.1 MCHC 31.2 RDW 16.5 H Plt Count 235 D MPV 10.9 Immature Gran % (Auto) 0.9 H Neut % (Auto) 75.3 H Lymph % (Auto) 15.7 L [place] % (Auto) 8.0 Eos % (Auto) 0.0 Baso % (Auto) 0.1 Lymph # (Auto) 1.2 [place] # (Auto) 0.6 Eos # (Auto) 0.0 Baso # (Auto) 0.0 Abs Immat Gran (auto) 0.07 H Absolute Neuts (auto) 5.9 Absolute Nucleated RBC 0.030 H Nucleated RBC % (auto) 0.4 H PT 17.5 H INR 1.4 H Fibrinogen VBG pH VBG pCO2 VBG pO2 VBG HCO3 VBG O2 Saturation VBG Base Excess Sodium 149 H Potassium 4.8 Chloride 105 Carbon Dioxide 33 H Anion Gap 16 BUN 40 H Creatinine 0.83 Estim Creat Clear Calc 43.2 Estimated GFR > 60 Random Glucose 110 Haptoglobin Lactic Acid Calcium 9.6 Phosphorus Magnesium Total Bilirubin AST ALT Alkaline Phosphatase Lactate Dehydrogenase Troponin I High Sens C-Reactive Protein NT-Pro-B Natriuret Pep Total Protein Albumin Procalcitonin TSH Urine Color Urine Appearance Urine pH Ur Specific [place] Urine Protein Urine Glucose (UA) Urine Ketones Urine Blood Urine Nitrite Ur Leukocyte Esterase Urine RBC Urine WBC Ur Squamous Epith Cells Urine Bacteria Hyaline Casts Influenza Type A (PCR) Influenza Type B (PCR) RSV RNA Qual (PCR) SARS-CoV-2 RNA (RT-PCR) Blood Type Antibody Screen Narrative Narrative: CHEST XRAY 05/01/25 IMPRESSION: 1. No significant interval change from 04/29/2025. Cardiomegaly, moderate interstitial pulmonary edema with bilateral pleural effusions and bibasilar parenchymal consolidations. ECHO Procedure Date: 04/17/2025 Procedure Type: Transthoracic Echocardiogram Location: [facility] [place] Height: 160.02 cm Weight: 58.06 kg BSA: 1.60 m2 Heart Rate: bpm BP: 107 / 55 mmHg [employer]: Referring MD: Peggy Prado MD Lead Database Developer: Arnold Sebastian MD Symptoms: gram + cocci in clusters in blood Study Quality: Adequate ECG Rhythm: Atrial Fibrillation Conclusions: - 1. Severely reduced LV ejection fraction 15-20% 2. Biatrial enlargement with left greater than light 3. Mild aortic regurgitation 4. Normally functioning bioprosthetic mitral valve 5. No gross pericardial effusion Airway Heart: irregularly irregular Lungs: decreased, limited exam due to pt mobility restrictions Assessment and Plan Final Anesthetic Review Family History of Problems with Anesthesia: No History of Problems with Anesthesia: No Documented by User: Karen Erickson MD 05/03/25 13:54 [facility] Past Medical History Medical History Cardiomyopathy Permanent atrial fibrillation Preoperative cardiovascular examination Thyroid nodule incidentally noted on imaging study Lung nodule Ureteral stent present HFrEF (heart failure with reduced ejection fraction) Chronic atrial fibrillation Chronic anticoagulation Obesity CKD (chronic kidney disease) stage 3, GFR 30-59 ml/min Nephrolithiasis, uric acid Hyperlipidemia HTN (hypertension) A-fib GORDON (obstructive sleep apnea) COPD (chronic obstructive pulmonary disease) Pulmonary HTN Severe mitral regurgitation Thiamine deficiency Osteoporosis Family History Family History Father No problems noted. Mother No problems noted. Maternal Aunt Breast cancer Surgical History Surgical History S/P ureteral stent placement Status post tricuspid valve repair Status post mitral valve replacement with bioprosthetic valve Hx of hernia repair History of open reduction and internal fixation (ORIF) procedure Social History Social History Household Members: None Housing: Other Housing Other:: [facility] Are you a primary physician locums urgent care to a significant other at home: No Do you presently have visiting nurse or other home services: No Alcohol intake: never Comment: 1:1 sitter Patient Tobacco Use Status: Former Tobacco user Tobacco use type: Cigarette e-Cigarette/Vaping Use: Never Used Second Hand Smoke Exposure: No Advance Directives Date on File: 11/28/23 service: No Current occupational status: retired Cognitive needs: No Hearing needs: No Vision needs: No Meds Allergies Allergy/AdvReac Type Severity Reaction Status Date / Time hydrocodone (From Vicodin) Allergy Mild CHEST PAIN Verified 04/28/25 17:16 Home Medications ?Medication ?Instructions ?Recorded ?Confirmed ?Last Taken ?Type ascorbate calcium (vitamin C) 500 500 mg PO DAILY 01/04/23 04/29/25 04/28/25 History mg tablet mfjpmvcbdryq-Wk-qrsq-minerals 1 tab PO DAILY 01/04/23 04/29/25 12/07/24 History zinc gluconate 50 mg tablet 50 mg PO DAILY 01/04/23 04/29/25 04/28/25 History acetaminophen 325 mg capsule 650 mg PO Q6H PRN Fever Or Pain 01/20/24 04/29/25 04/27/25 History amiodarone 200 mg tablet 200 mg PO DAILY 07/27/24 04/29/25 04/15/25 History omeprazole 20 mg capsule,delayed 20 mg PO BID@0630,1630 12/07/24 04/29/25 04/28/25 History release thiamine HCl (vitamin B1) 100 mg 100 mg PO DAILY 01/12/25 04/29/25 Unknown History capsule amlodipine 5 mg tablet 5 mg PO DAILY 04/15/25 04/29/25 04/28/25 History carvedilol 12.5 mg tablet 12.5 mg PO BID 04/15/25 04/29/25 04/28/25 History furosemide 40 mg tablet (Lasix) 40 mg PO BID 04/15/25 04/29/25 04/28/25 History umeclidinium 62.5 mcg-vilanterol 1 inh inhalation DAILY 04/15/25 04/29/25 04/28/25 History 25 mcg/actuation powdr for inhalation (Anoro Ellipta) cholecalciferol (vitamin D3) 10 10 mcg PO DAILY 04/16/25 04/29/25 04/28/25 History mcg (400 unit) tablet (Vitamin D3) potassium chloride 20 mEq 20 meq PO DAILY 04/16/25 04/29/25 04/28/25 History tablet,extended release albuterol sulfate 90 mcg/actuation 2 puff inhalation Q4H PRN 04/29/25 04/29/25 Unknown History aerosol inhaler shortness of breath or wheezing ipratropium 0.5 mg-albuterol 3 mg 3 ml inhalation Q6H PRN Wheezing 04/29/25 04/29/25 04/28/25 History (2.5 mg base)/3 mL nebulization soln Exam Airway Mallampati Class: III Neck ROM: Limited Denture: Upper and Lower Loose/Missing/Broken Teeth: Yes, Upper and Lower Assessment and Plan Assessment Anesthesia Assessment: Anesthesia Plan Discussed and Chart Reviewed Final Anesthetic Review ASA Class: IV Final Preanesthetic Review: Meds/Allgs Chart Reviewed, Consent Obtained/Reviewed and Anes Risks/Benef Reviewed Patient Risk: High Procedure Risk: Low Anesthetic Plan Anesthetic Plan: GA Disposition: Standard PACU
[2025-05-03] MEDS: 0.9 % Sodium Chloride Flush 3 ML SYRINGE IVFLUSH ×2 (09:54→17:05)
[2025-05-03] MEDS: Ammonium Lactate 12 % Lotion 226 GM BOTTLE 1 APPL TOPICAL ×2 (10:32→20:11)
--- NOTE | 2025-05-03 12:18 | MHC.CLN ---
F/U PT IS CURRENTLY NPO PREVIOUS PO INTAKE 25% CONSISTENTLY PT WITH INCREASED NUTRITION RISK R/T PRESSURE INJURY WHEN DIET TO RESUME; RECOMMEND RE-START PUREE WITH NECTAR THICK LIQUIDS ADDING FORTIFIED ICE CREAM TID TO PROMOTE NUTRITIONAL INTAKE AND SKIN INTEGRITY SUPPLEMENT TO PROVIDE 870 KCALS, 27 G PROTEIN WITH 100% ACCEPTANCE FOLLOWING FOR DIET ADVANCEMENT, PO INTAKE AND WOUND HEALING
--- NOTE | 2025-05-03 12:35 | HO.PM.IMPN ---
Subjective Subjective Date of Service: 05/03/25 Interval History: Seen and evaluated this morning Pt is somnolent but arousable. Answering appropriately but appears tired and falls back asleep quickly Continues to complain of left lower abdominal discomfort No nausea or vomiting or diarrhea Reports breathing is ?okay?. No SOB Plan is for stent removal in the OR later in the day Review of Systems Review of Systems: Yes all other systems are reviewed and are negative Physical Exam Exam: Exam: General: Somnolent but arousable, answering appropriately when awake. Falling back asleep during interview and exam. Frail and chronically ill and weak appearing Resp: Lungs diminished but clear. Pt on high-flow CVS: Irregularly irregular rhythm GI: Soft, no distention. Mild LLQ tenderness Back: Thoracic kyphosis Skin: See wound care note for decubitus ulcers on heels and sacral area : Holt in place with tea-colored urine Neuro: Cranial nerves II-XII grossly intact bilaterally. Motor grossly intact bilaterally. Global though symmetric weakness throughout Extremities: No edema. Bilateral legs with chronic venous stasis dermatitis changes. Left foot with limited ROM. Psych: Appropriate affect Vital Signs: Vital Signs: Last Vital Signs Temp 97.6 F 05/03/25 12:00 Pulse 87 05/03/25 12:00 Resp 20 05/03/25 12:00 BP 132/64 05/03/25 12:00 Pulse Ox 95 05/03/25 12:00 O2 Del Method Room Air 05/03/25 12:00 O2 Flow Rate 60 05/03/25 08:00 FiO2 30 05/03/25 08:00 Oxygen Flow Rate 40 04/28/25 23:17 BMI result Body Mass Index 24.2 Objective Data Active Medications Albuterol Sulfate (Albuterol Sulfate (0.083%) 2.5 Mg/3 Ml Vial.Neb) 2.5 mg INHALE Q4H PRN PRN Reason: Shortness of Breath/Wheezing Last Admin: 04/29/25 14:41 Dose: 2.5 mg Documented By: SUSHANT Amiodarone HCl (Amiodarone Hcl 200 Mg Tablet) 200 mg PO DAILY VIOLETA Last Admin: 05/03/25 09:21 Dose: Not Given Documented By: PARKER Non-Admin Reason: Physician Held Med Benzonatate (Benzonatate 100 Mg Capsule) 100 mg PO TID PRN PRN Reason: Cough Furosemide (Furosemide 20 Mg/2 Ml Vial) 20 mg IVPUSH Q12H [facility]; Protocol Last Admin: 05/03/25 04:25 Dose: 20 mg Documented By: NIRALI Lactic Acid (Ammonium Lactate 12 % Lotion 226 Gm Bottle) 1 appl TOPICAL BID [facility]; Protocol Last Admin: 05/03/25 10:32 Dose: 1 appl Documented By: PARKER Melatonin (Melatonin 3 Mg Tablet) 9 mg PO BEDTIME PRN PRN Reason: Insomnia Last Admin: 04/29/25 22:05 Dose: 9 mg Documented By: CE Morphine Sulfate (Morphine Sulfate 4 Mg/Ml Cartridge) 0.5 mg IVPUSH Q3H PRN; Protocol PRN Reason: chronic back pain Last Admin: 05/03/25 00:56 Dose: 0.5 mg Documented By: NIRALI Omeprazole (Omeprazole 20 Mg Capsule.Dr) 20 mg PO BID@0630,1630 [facility] Last Admin: 05/03/25 06:38 Dose: Not Given Documented By: NIRALI Non-Admin Reason: Patient Refused Prednisone (Prednisone 20 Mg Tablet) 40 mg PO DAILY [facility] Last Admin: 05/03/25 09:21 Dose: Not Given Documented By: PARKER Non-Admin Reason: Physician Held Med Sodium Chloride (0.9 % Sodium Chloride Flush 3 Ml Syringe) 3 ml IVFLUSH QSHIFT [facility] Last Admin: 05/03/25 09:54 Dose: 3 ml Documented By: PARKER Thiamine HCl (Thiamine Hcl 100 Mg Tablet) 100 mg PO DAILY [facility] Last Admin: 05/03/25 09:22 Dose: Not Given Documented By: PARKER Non-Admin Reason: Physician Held Med Labs 05/03/25 07:34 05/03/25 07:34 Labs: Laboratory Results - last 24 hr 05/03/25 07:34 MCV 90.1 MCH 28.1 MCHC 31.2 RDW 16.5 H Plt Count 235 D MPV 10.9 Immature Gran % (Auto) 0.9 H Neut % (Auto) 75.3 H Lymph % (Auto) 15.7 L Casey % (Auto) 8.0 Eos % (Auto) 0.0 Baso % (Auto) 0.1 Lymph # (Auto) 1.2 Casey # (Auto) 0.6 Eos # (Auto) 0.0 Baso # (Auto) 0.0 Abs Immat Gran (auto) 0.07 H Absolute Neuts (auto) 5.9 Absolute Nucleated RBC 0.030 H Nucleated RBC % (auto) 0.4 H PT 17.5 H INR 1.4 H Anion Gap 16 Estim Creat Clear Calc 43.2 Estimated GFR > 60 Random Glucose 110 Calcium 9.6 Assessment and Plan (1) Multifocal pneumonia: Status: Acute (2) Septic shock: Status: Acute Plan 84-year-old female, with a background medical history of paroxysmal atrial fibrillation on apixaban, porcine mitral valve replacement, HFrEF 15-20% s/p AICD, GORDON CPAP, CKD stage III B, HTN, HLD, pulmonary HTN, COPD not on home O2, recent admission 04/15-04/25/2025 for acute pyelonephritis and supratherapeutic INR (warfarin to apixaban) c/b influenza a URI, presented to emergency room 04/28 with altered mental status and shortness of breath, admitted to medical ICU with septic shock requiring pressor support 2/2 multifocal pneumonia & superimposed multifactorial acute hypoxic respiratory failure (PNA & acute CHF exacerbation rEF 15-20%), course c/b hematuria 2/2 supratherapeutic INR in the setting of retained ureteral stents due to previous nephrolithiasis & hydroureteronephrosis, transferred to medical floor 04/30/2025. Septic shock Multifocal pneumonia Recent pyelonephritis with hydroureteronephrosis 2/2 nephrolithiasis Hypotensive, required pressor support in MICU. X-ray revealing infrahilar opacities and diffuse pulmonary congestion likely reflecting a pneumonia. Completed treatment for pyelonephritis. Blood cultures -ve Received volume resuscitation Patient was on metoprolol last admission, not carvedilol PLAN - continue ceftriaxone, doxycycline - continue prednisone 40mg OD PO - hold lisinopril - hold amlodipine - hold metoprolol Acute hypoxic respiratory failure Infective exacerbation of COPD Acute exacerbation is HFrEF 15-20% Pulmonary HTN Recent influenza A Patient has metoprolol and carvedilol both on her medication list; unclear why; we will clarify with family members Required high-flow for hypoxic respiratory failure. Intolerant of CPAP/BiPAP. DNR/DNI - no intubation. PLAN - furosemide 20 mg b.i.d. IV - clarify beta-nguyen medication and dose at home - continue oxygen as per protocol; aim for SpO2 > 92% - Prednisone 40mg OD PO - DuoNebs / albuterol - benzonatate p.r.n. - guaifenesin p.r.n. Pyelonephritis Nephrolithiasis Ureteral stenting Hematuria Patient was diagnosed and treated for pyelonephritis on previous admission The patient was transitioned from warfarin to apixaban on prior admission for her atrial fibrillation On admission, the patient is noted to have supratherapeutic INR The patient's clinical course has been c/b hematuria in the setting of a supratherapeutic INR The patient received 2 units FFP, and vitamin K while in the ICU; which effectively reversed her INR PLAN - urology following, plan on stent removal later in the day - maintain Holt - avoid anticoagulation at this time Paroxysmal atrial fibrillation Supratherapeutic INR - previously on warfarin Anticoagulation with apixaban - currently held Patient was on metoprolol last admission, not carvedilol Patient on amiodarone, which was held in the ICU due to hypotension Anticoagulation is on hold due to hematuria. Patient was on warfarin during prior admission. This was discontinued, and apixaban was started. The patient presents with supratherapeutic INR around 6 - received FFP x2 and vitamin K with improvement in INR PLAN - recheck daily INR - FFP and vitamin K for increase - monitor for signs and symptoms of bleeding - resume amiodarone 200 mg OD p.o. - cardiology consultation - consider resumption of metoprolol GORDON Can not tolerate CPAP We will attempt again Chronic sacral and heel decubitus ulcers Wound Care consultation - [facility] - Right heel: Elevate heels off of bed surface with pillows. Float heels off of pillows. Apply skin prep allow to dry. Apply heel foam dressings, peel back and assess Q shift and change every 5-7 days and PRN - Coccyx: Off Load Pressure with Q2 hr turns and use of pillows - Cleanse with PH balance spray or wipes, pat dry. ?Apply thin layer of Triad to wound bed. Do not remove all of paste between applications as this may cause further skin damage.? Cover with foam dressing to aid in off loading and protection from friction. Change every other day and PRN. - Left lateral heel: cleanse with normal saline, apply skin prep palmer wound, apply durafiber ag, to wound bed, cover with heel foams, change every other day and PRN - elevate heels off surface of bed with pillows - Bilateral Lower Legs - Routine Cleansing. Apply Ammonium Lactate cream per provider orders. Lung nodule on CT - repeat chest CT in 3 mo outpt Thyroid nodules on CT - f/u output for thyroid US T10 fracture on CT Chronic back pain Likely secondary to fall at home in bathroom 4 weeks prior; pt hit back on toilet, did not seek medical evaluation at that time [facility] neurosurgery suggested fx appears stable, no need for transfer PLAN - pain management - outpatient evaluation - PT consulted Pt requires continued hospitalization due to surgical stent removal in the OR later in the afternoon, as well as multiple other significant comorbidities requiring IV medications and close monitoring of labs and vitals. Quality Stroke Does the patient have a stroke diagnosis?: No VTE Prior VTE?: No VTE Risk Level:: Medical - moderate - high VTE Device Contraindication: N/A - Device Ordered VTE Drug Contraindication: N/A - Med Ordered
[2025-05-03] MEDS: Lactated Ringers 1,000 ML 80 ML IVCONT (13:47)
--- NOTE | 2025-05-03 14:01 | MHC.SHP ---
Pre-Procedural Eval Section A - 24 Hr Update-Section A only Date of Service: 05/03/25 The patient is an INPATIENT: Yes Changes since office visit: No Cold of Flu in the past 2 weeks, No New Medical Problems, No Changes in Medication and No Patient answered all questions The patient has been examined within 24 hours of the surgical procedure. The History & Physical has been completed within 30 days and I have reviewed it.: Yes Section B - Complete if H&P > 30 days Chief Complaint: hypotension Details of Present Illness: Cystoscopy, stent removal Allergies: Allergies Allergy/AdvReac Type Severity Reaction Status Date / Time hydrocodone (From Vicodin) Allergy Mild CHEST PAIN Verified 04/28/25 17:16 Plan I have reviewed the history and physical and performed a pertinent physical examination on my patient. No changes have occurred unless specified. Time Spent With Patient Time: Total time managing care of this patient today ____ minutes.
--- NOTE | 2025-05-03 14:56 | MHC.CM.PN ---
Pt. to have procedure today, declined at [facility], CM to follow and assist with DC plan.
--- NOTE | 2025-05-03 15:28 | P.OP_ITS ---
Operative Note Operative Note Date of Service: 05/03/25 Narrative: PreOperative Diagnosis: Retained calcified right ureteric stent - proximal ureteric stone Post Operative Diagnosis: Retained calcified right ureteric stent - proximal ureteric stone Procedure: - cystoscopy, right retrograde - right ureteroscopy, laser lithotripsy, stone basketing of both the calcified stent and the proximal ureteric stones - partial removal of retained right stent Surgeon: Dr Warner Bolanos Anesthesia: General Indications for procedure: Had right stent placed for stone in November 2023. Was unable to attend follow-up secondary to other medical complications. Admitted through emergency room with hematuria. On imaging found to have retained stent. Has had anticoagulation with AICD placement for valve and AFib. INR at admission was 10.1. INR has now been brought under control. A decision has been made to proceed with attempted stent removal. Understands this may be a staged procedure due to difficulty and calcified nature of stent. Procedure: After informed consent was verified the patient was brought to the operating ro om and placed in a supine position. Anesthesia was administered per protocol. The patient was placed in a modified dorsal lithotomy position and prepped and draped in a sterile fashion. Safety pause time-out and side of surgery were confirmed. Images were available for review. Antibiotic administration confirmed. A 22 Mauritian cystoscope was inserted per urethra. The urethra was without abno rmality. The bladder was normal in its entirety. Both ureteric orifices were seen in normal position the retained stent was seen emerging from the right ureter. The right ureteric orifice was cannulated and a retrograde examination was performed. Filling defects seen alongside stent. Contrast did not go past proximal portion of stent into renal pelvis. A Sensor guidewire was placed alongside the stent. Again this did not advance beyond the mid point of the proximal ureter. An attempt was made with an angled Glidewire in it to did not advanced. The was removed. A grasper was used to engage the distal pigtail of the stent. The rigid cystoscope was removed. The distal pigtail of the stent was externalized and clamped on gentle traction. The semi rigid ureteral scope was placed alongside the retained stent. This was able to be advanced up to the proximal ureter. There was calcification around the stent and stones in the upper portion of the ureter. We were not able to advance beyond the upper portion of the ureter. There was some ureteric wall mucosal disruption at this location. Using a 365 micro holmium laser fiber the calcification surrounding the stent was broken small pieces using a combination of hammer and dusting techiques. The stone that was within the proximal ureter was also engaged and broken into small pieces. Stone fragments were removed from the ureter using a ZeroTip 2.4 Mauritian basket. Since it was very difficult to get into the renal pelvis a decision was made to use the laser to divide the stent at the junction between the mid and proximal ureter and leave behind the stent remnant to be removed in a 2nd setting. This way all of the distal stent into the bladder can be removed and all of the distal debris would be able to be removed. This was performed successfully in the distal portion of the stent removed. The ZeroTip basket was then used to remove any remaining calcification within the ureter. The bladder was emptied of all its debris. A 14 Mauritian 5 cc Holt catheter was placed The patient tolerated the procedure well and was extubated in the operating room. They were transferred in stable condition to the recovery area. Pathology: stones Drains: Remnant double-J stent as described above
--- NOTE | 2025-05-03 15:31 | HO.WOUND ---
Wound Consult Attempted patient off unit in procedure will attempt at future date and time.
[2025-05-04] VITALS (7 sets, daily range): BP systolic 104–130; BP diastolic 57–83; PULSE 73–90; RESP 17–20; TEMP 36.2–36.7; O2SAT 87–100; BMI 26.6
[2025-05-04] MEDS: 0.9 % Sodium Chloride Flush 3 ML SYRINGE IVFLUSH ×4 (00:14→22:25)
[2025-05-04] MEDS: Furosemide 20 MG/2 ML VIAL IVPUSH ×2 (04:48→17:27)
[2025-05-04 07:26] LABS: Hematocrit 36.2 % (37.0-47.0); Hemoglobin 11.1 g/dl (12.0-16.0); Imm Gran Abs Auto 0.06 X10*3/uL (0.00-0.03); Imm Gran Pct Auto 0.5 % (0.0-0.4); Lymphocytes Absolute Auto 0.5 X10*3/uL (1.2-4.9); MANUAL DIFF FLAG SCAN; Mean Corpuscular HGB Conc 30.7 g/dl (31.0-35.0); Mean Corpuscular Hemoglobin 28.2 pg (27.0-33.0); Mean Corpuscular Volume 92.1 fL (80.0-98.0); NRBC Abs Auto 0.020 X10*3/uL (0.0-0.012); NRBC Pct Auto 0.2 /100WBC (0.0-0.2); Platelet Count 201 X10*3/uL (160-400); Red Blood Count 3.93 X10*6/uL (4.20-5.50); SCAN SMEAR FLAG 1; White Blood Count 12.6 X10*3/uL (4.8-10.8)
[2025-05-04 07:34] LABS: INTERNATIONAL NORM RATIO 1.5 (0.9-1.1); Prothrombin Time 17.6 SEC (11.2-13.5)
[2025-05-04 07:48] LABS: Anion Gap 15 (12-20); Blood Urea Nitrogen 44 mg/dL (9-16); Calcium 9.1 mg/dL (8.4-10.2); Carbon Dioxide 32 mmol/L (22-29); Chloride 105 mmol/L (96-108); Creatinine Clr Calc Pharmacy 37.5; Estimated Glomerular Filt Rate 49; Potassium 4.4 mmol/L (3.3-5.1); Sodium 148 mmol/L (135-145)
--- NOTE | 2025-05-04 08:43 | HO.POSTANES ---
Post Anesthesia Evaluation Post Anesthesia Evaluation Date of Service: 05/04/25 Vital Signs: Vital Signs Temp Pulse Resp BP Pulse Ox O2 Del Method O2 Flow Rate 05/04/25 08:00 97.4 F 90 20 116/57 L 99 Nasal Cannula 3 05/04/25 04:48 113/66 05/04/25 03:33 97.4 F 80 17 116/64 99 Nasal Cannula 3 05/04/25 00:00 97.4 F 88 18 128/83 87 L Nasal Cannula 3 Anesthesia: General Mental Status: Awake Pain Control: Satisfactory Nausea/Vomiting: None Hydration: Adequate Anesthesia-Related Issues: No Anes. Related Issues
[2025-05-04] MEDS: Ammonium Lactate 12 % Lotion 226 GM BOTTLE 1 APPL TOPICAL ×2 (10:25→22:42)
[2025-05-04 10:39] LABS: Venous Blood Gas Refer to POC result
[2025-05-04 10:41] LABS: VBG HCO3 43 mmol/L (22-26); VBG O2 % Saturation 100.0 %
--- NOTE | 2025-05-04 11:21 | P.CONCA_ITS ---
History of Present Illness History of Present Illness Date of Service: 05/04/25 Chief complaint: hypotension Narrative: This is a cardiology consultation regarding increasing biomarkers, specifically high cardiac BNP. Concern for congestive heart failure. Patient was recently seen in consultation few weeks back. Extensive cardiac history including history of bioprosthetic mitral valve replacement as well as tricuspid annuloplasty in 2020. Permanent atrial fibrillation. Severe cardiomyopathy. Status post GLASS TINTER D. Recent hospitalization for urinary issues including pyelonephritis and in that setting, she apparently also had respiratory failure related to influenza. She was discharged to rehabilitation but then readmitted to ICU we will diagnosed with septic shock, pneumonia, respiratory failure. Now she is transferred to the floor. Patient is not offering any clear-cut symptoms at this time. Apparently labs were performed and that showed a markedly high cardiac BNP and hence we are consulted. Family is at the bedside and had a conversation with them. According to them, she is slowly declining over the last few weeks. Review of Systems 2 Review of Systems: Yes all other systems are reviewed and are negative Constitutional: Constitutional: Reports as per HPI and Reports no additional constitutional complaints Eyes: Eyes: Reports as per HPI and Denies no additional eye complaints ENT: Denies system reviewed and no additional complaints, except as documented and Reports as per HPI Cardiovascular: Cardiovascular: Reports as per HPI, Reports no additional cardiovascular complaints, Denies acrocyanosis, Denies cool extremities, Denies chest pain, Denies leg edema, Denies lightheadedness, Denies palpitations and Reports dyspnea Respiratory: Respiratory: Reports as per HPI, Denies no additional respiratory complaints and Reports dyspnea Gastrointestinal: Gastrointestinal: Reports as per HPI and Denies no additional gastrointestinal complaints Genitourinary: Genitourinary: Reports as per HPI Musculoskeletal: Musculoskeletal: Reports no additional musculoskeletal complaints and Reports as per HPI Integumentary/Breasts: Skin/Breast: Reports system reviewed and no additional complaints, except as docu Neurologic: Reports system reviewed and no additional complaints, except as documented and Reports as per HPI Psychiatric: Psychiatric: Reports no additional psychiatric complaints and Reports as per HPI Endocrine: Endocrine: Reports no additional endocrine complaints, Reports as per HPI and Denies palpitations Hematologic/Lymphatic: Hematologic/Lymphatic: Reports no additional hematologic/lymphatic complaints and Reports as per HPI Allergic/Immunologic: Allergic/Immunologic: Reports no additional allergic/immunologic complaints and Reports as per HPI [facility] Past Medical History Medical History Cardiomyopathy Permanent atrial fibrillation Preoperative cardiovascular examination Thyroid nodule incidentally noted on imaging study Lung nodule Ureteral stent present HFrEF (heart failure with reduced ejection fraction) Chronic atrial fibrillation Chronic anticoagulation Obesity CKD (chronic kidney disease) stage 3, GFR 30-59 ml/min Nephrolithiasis, uric acid Hyperlipidemia HTN (hypertension) A-fib GORDON (obstructive sleep apnea) COPD (chronic obstructive pulmonary disease) Pulmonary HTN Severe mitral regurgitation Thiamine deficiency Osteoporosis Family History Family History Father No problems noted. Mother No problems noted. Maternal Aunt Breast cancer Surgical History Surgical History S/P ureteral stent placement Status post tricuspid valve repair Status post mitral valve replacement with bioprosthetic valve Hx of hernia repair History of open reduction and internal fixation (ORIF) procedure Social History Social History Household Members: None Housing: Other Housing Other:: [facility] Are you a primary home care assistant to a significant other at home: No Do you presently have visiting nurse or other home services: No Alcohol intake: never Comment: 1:1 sitter Patient Tobacco Use Status: Former Tobacco user Tobacco use type: Cigarette Smoked in Last 30 Days: No e-Cigarette/Vaping Use: Never Used Second Hand Smoke Exposure: No Use of substances other than those prescribed or required for medical reasons: No Currently Displaying Signs/Symptoms of Drug Intoxication Withdrawal: No Have you been hit, kicked, punched, or otherwise hurt by someone within the past year? If so, by whom?: No Are you DNR?: No Advance Directives: Yes Advance Directives Information Provided: No Advance Directives on File: Yes Advance Directives Date on File: 11/28/23 Do you have a plan to hurt others: No Plan Recently lost weight without trying: Unsure Nutrition Risks: Emaciation/Cachexia and On aspiration precautions Patient : No : No service: No Current occupational status: retired Cognitive needs: No Hearing needs: No Vision needs: No Meds Allergies Allergy/AdvReac Type Severity Reaction Status Date / Time hydrocodone (From Vicodin) Allergy Mild CHEST PAIN Verified 04/28/25 17:16 Active Medications: Current Medications Albuterol Sulfate (Albuterol Sulfate (0.083%) 2.5 Mg/3 Ml Vial.Neb) 2.5 mg INHALE Q4H PRN PRN Reason: Shortness of Breath/Wheezing Last Admin: 04/29/25 14:41 Dose: 2.5 mg Amiodarone HCl (Amiodarone Hcl 200 Mg Tablet) 200 mg PO DAILY [facility] Last Admin: 05/04/25 10:25 Dose: 200 mg Apixaban (Apixaban 2.5 Mg Tablet) 2.5 mg PO BID [facility] Last Admin: 05/04/25 10:26 Dose: 2.5 mg Benzonatate (Benzonatate 100 Mg Capsule) 100 mg PO TID PRN PRN Reason: Cough Furosemide (Furosemide 40 Mg Tablet) 40 mg PO BID VIOLETA; Protocol Lactic Acid (Ammonium Lactate 12 % Lotion 226 Gm Bottle) 1 appl TOPICAL BID [facility]; Protocol Last Admin: 05/04/25 10:25 Dose: 1 appl Melatonin (Melatonin 3 Mg Tablet) 9 mg PO BEDTIME PRN PRN Reason: Insomnia Last Admin: 04/29/25 22:05 Dose: 9 mg Morphine Sulfate (Morphine Sulfate 4 Mg/Ml Cartridge) 0.5 mg IVPUSH Q3H PRN; Protocol PRN Reason: chronic back pain Last Admin: 05/03/25 17:36 Dose: 0.5 mg Naloxone HCl (Naloxone Hcl 0.4 Mg/Ml Vial) 0.04 mg IVPUSH Q5M PRN PRN Reason: Excessive sedation or RR < 8 Omeprazole (Omeprazole 20 Mg Capsule.) 20 mg PO BID@0630,1630 [facility] Last Admin: 05/04/25 04:54 Dose: Not Given Prednisone (Prednisone 20 Mg Tablet) 40 mg PO DAILY [facility] Last Admin: 05/04/25 10:26 Dose: 40 mg Sodium Chloride (0.9 % Sodium Chloride Flush 3 Ml Syringe) 3 ml IVFLUSH QSHIFT [facility] Last Admin: 05/04/25 10:27 Dose: 3 ml Spironolactone (Spironolactone 25 Mg Tablet) 12.5 mg PO DAILY [facility]; Protocol Thiamine HCl (Thiamine Hcl 100 Mg Tablet) 100 mg PO DAILY [facility] Last Admin: 05/04/25 10:26 Dose: 100 mg Home Medications ?Medication ?Instructions ?Recorded ?Confirmed ?Last Taken ?Type ascorbate calcium (vitamin C) 500 500 mg PO DAILY 09/2304/29/25 04/28/25 History mg tablet [id number]-Ug-nzmp-minerals 1 tab PO DAILY 01/04/23 04/29/25 12/07/24 History zinc gluconate 50 mg tablet 50 mg PO DAILY 01/04/2304/28/25 History acetaminophen 325 mg capsule 650 mg PO Q6H PRN Fever O r Pain 01/20/24 04/29/25 04/27/25 History amiodarone 200 mg tablet 200 mg PO DAILY 07/27/2404/15/25 History omeprazole 20 mg capsule,delayed 20 mg PO BID@0630,163 0 12/07/24 04/29/25 04/28/25 History release thiamine HCl (vitamin B1) 100 mg 100 mg PO DAILY 01/1204/29/25 Unknown History capsule amlodipine 5 mg tablet 5 mg PO DAILY 04/15/2504/2904/28/25 History carvedilol 12.5 mg tablet 12.5 mg PO BID 04/15/2504/0404/28/25 History furosemide 40 mg tablet (Lasix) 40 mg PO BID 04/15/25 04/29/25 04/28/25 History umeclidinium 62.5 mcg-vilanterol 1 inh inhalation TORIN Y 04/15/25 04/29/25 04/28/25 History 25 mcg/actuation powdr for inhalation (Anoro Ellipta) cholecalciferol (vitamin D3) 10 10 mcg PO DAILY 04/29/25 04/28/25 History mcg (400 unit) tablet (Vitamin D3) potassium chloride 20 mEq 20 meq PO DAILY 04/16/2504/28/25 History tablet,extended release albuterol sulfate 90 mcg/actuation 2 puff inhalation Q 4H PRN 04/29/25 04/29/25 Unknown History aerosol inhaler shortness of breath or wheez ing ipratropium 0.5 mg-albuterol 3 mg 3 ml inhalation Q6H PRN Wheezing 04/29/25 04/29/25 04/28/25 History (2.5 mg base)/3 mL nebulization soln Physical Exam 2 Vital Signs: Vital Signs: Last Vital Signs Temp 97.4 F 05/04/25 08:00 Pulse 90 05/04/25 08:00 Resp 20 05/04/25 08:00 BP 116/57 L 05/04/25 08:00 Pulse Ox 99 05/04/25 08:00 O2 Del Method Nasal Cannula 05/04/25 08:00 O2 Flow Rate 3 05/04/25 08:00 FiO2 30 05/03/25 08:00 Oxygen Flow Rate 40 04/28/25 23:17 BMI result Body Mass Index 26.6 Const: General: comfortable, no acute distress, ill appearing and lethargic Orientation/consciousness: patient oriented x3 and lethargic HEENT: Other: Unremarkable Head: Yes normal to inspection Neck: Neck: Yes normal visual inspection Chest: Chest palpation & inspection: normal inspection of the chest Resp: Auscultation: crackles and diminished lung sounds Cardio: Palpation: normal PMI Heart sounds: S1 normal heart sound present, S2 normal heart sound present, no gallops, no murmurs and no rubs GI: Palpation (GI): Soft to palpation Back/Spine/Pelvis: Other: unremarkable Skin: General skin exam: no rashes or lesions noted Neuro: General: patient oriented x3 Extrem: General: Yes normal to inspection Psych: Mental Status: mental status grossly normal Objective Labs and Meds 05/04/25 06:53 05/04/25 06:53 Lab results: Laboratory Results - last 24 hr 05/04/25 05/04/25 06:53 10:36 WBC 12.6 H RBC 3.93 L Hgb 11.1 L Hct 36.2 L MCV 92.1 MCH 28.2 MCHC 30.7 L RDW 16.8 H Plt Count 201 MPV 10.8 Immature Gran % (Auto) 0.5 H Neut % (Auto) 91.2 H Lymph % (Auto) 3.7 L [place] % (Auto) 4.4 Eos % (Auto) 0.0 Baso % (Auto) 0.2 Lymph # (Auto) 0.5 L [place] # (Auto) 0.6 Eos # (Auto) 0.0 Baso # (Auto) 0.0 Abs Immat Gran (auto) 0.06 H Absolute Neuts (auto) 11.5 H Absolute Nucleated RBC 0.020 H Nucleated RBC % (auto) 0.2 Smear Tech's Comments VERIFIED PT 17.6 H INR 1.5 H VBG pH 7.39 VBG pCO2 69 VBG pO2 142 VBG HCO3 43 H VBG O2 Saturation 100.0 VBG Base Excess 15.5 Sodium 148 H Potassium 4.4 Chloride 105 Carbon Dioxide 32 H Anion Gap 15 BUN 44 H Creatinine 1.07 Estim Creat Clear Calc 37.5 Estimated GFR 49 Random Glucose 154 H Calcium 9.1 NT-Pro-B Natriuret Pep 30877.8 H Imaging Radiologist's impression: Impressions Guidance Fluoroscopy 05/03/25 14:29 IMPRESSION: Fluoroscopy guidance for right retrograde exam. Retained stent fragment projects over the right kidney/proximal ureter. Electronically signed by: Karen Garibay MD 05/03/2025 04:25 PM [facility] [place] and Plan (1) Acute on chronic systolic heart failure: Status: Acute Plan Cardiac studies reviewed. NT proBNP levels are elevated at 32,000. Few days before it was 14,000. Last month around 9000. High sensitivity troponins borderline high. In the most recent chest x-ray from , cardiomegaly, interstitial pulmonary edema, bilateral effusions/consolidation. In the recent echocardiogram, LVEF 15-20%. Biatrial enlargement. Normally functioning bioprosthetic mitral valve. Mild aortic regurgitation. Overall, numerous cardiac as well as medical comorbidities, recurring hospitalizations, respiratory failure, acute on chronic heart failure, deconditioned, frail. She is currently oral diuretics, spironolactone along with amiodarone/Eliquis. Not clear if the chest crackles or related true pulmonary edema versus COPD/interstitial lung disease. We can attempt some IV diuretics as the BNP is substantially higher than before. Otherwise, main recommendation is to discuss goals of care. Considering the overall health status, may need to evaluate palliative care/hospice options as well. We discussed about all of these today with family including son and [id number]. They understand the issues and may go that route. Discussed with covering hospitalist. Procedures Date of Service Date of Service: 05/04/25
--- NOTE | 2025-05-04 13:25 | HO.PM.IMPN ---
Subjective Subjective Date of Service: 05/04/25 Interval History: Pt initially seen during morning rounds where she was somnolent and barely arousable Was speaking in a whisper in one-word sentences Pt more awake and alert on afternoon rounds where she is seen eating and surrounded by family Denies any acute medical complaints Underwent partial stent removal by Dr. Bolanos last night; proximal ureter stent remnant retained and needs to be removed in a 2nd setting Repeat BNP this morning noted to be significantly higher than at time of admission 9082.2-->52723.8 Spoke to family about goals of care and they would like a Hospice consult Review of Systems Review of Systems: Yes all other systems are reviewed and are negative Physical Exam Exam: Exam: General: Somnolent but arousable, answering appropriately when awake though speaking in a whisper and in 1-2 word sentences. Falling back asleep during interview and exam. Frail and chronically ill and weak appearing Resp: Lungs diminished but clear. Pt on NC CVS: Irregularly irregular rhythm GI: Soft, no distention. Mild LLQ tenderness Back: Thoracic kyphosis Skin: See wound care note for decubitus ulcers on heels and sacral area : Holt in place with tea-colored urine, no clear hemoptysis Neuro: Cranial nerves II-XII grossly intact bilaterally. Motor grossly intact bilaterally. Global though symmetric weakness throughout Extremities: No edema. Bilateral legs with chronic venous stasis dermatitis changes. Left foot with limited ROM. Psych: Appropriate affect Vital Signs: Vital Signs: Last Vital Signs Temp 97.1 F 05/04/25 12:00 Pulse 82 05/04/25 12:00 Resp 20 05/04/25 12:00 BP 104/67 05/04/25 12:00 Pulse Ox 100 05/04/25 12:00 O2 Del Method Nasal Cannula 05/04/25 12:00 O2 Flow Rate 3 05/04/25 12:00 FiO2 30 05/03/25 08:00 Oxygen Flow Rate 40 04/28/25 23:17 BMI result Body Mass Index 26.6 Objective Data Active Medications Albuterol Sulfate (Albuterol Sulfate (0.083%) 2.5 Mg/3 Ml Vial.Neb) 2.5 mg INHALE Q4H PRN PRN Reason: Shortness of Breath/Wheezing Last Admin: 04/29/25 14:41 Dose: 2.5 mg Documented By: SUSHANT Amiodarone HCl (Amiodarone Hcl 200 Mg Tablet) 200 mg PO DAILY [facility] Last Admin: 05/04/25 10:25 Dose: 200 mg Documented By: NICKIE Apixaban (Apixaban 2.5 Mg Tablet) 2.5 mg PO BID [facility] Last Admin: 05/04/25 10:26 Dose: 2.5 mg Documented By: NICKIE Benzonatate (Benzonatate 100 Mg Capsule) 100 mg PO TID PRN PRN Reason: Cough Furosemide (Furosemide 40 Mg Tablet) 40 mg PO BID [facility]; Protocol Lactic Acid (Ammonium Lactate 12 % Lotion 226 Gm Bottle) 1 appl TOPICAL BID [facility]; Protocol Last Admin: 05/04/25 10:25 Dose: 1 appl Documented By: NICKIE Melatonin (Melatonin 3 Mg Tablet) 9 mg PO BEDTIME PRN PRN Reason: Insomnia Last Admin: 04/29/25 22:05 Dose: 9 mg Documented By: CE Morphine Sulfate (Morphine Sulfate 4 Mg/Ml Cartridge) 0.5 mg IVPUSH Q3H PRN; Protocol PRN Reason: chronic back pain Last Admin: 05/03/25 17:36 Dose: 0.5 mg Documented By: PARKER Naloxone HCl (Naloxone Hcl 0.4 Mg/Ml Vial) 0.04 mg IVPUSH Q5M PRN PRN Reason: Excessive sedation or RR < 8 Omeprazole (Omeprazole 20 Mg Capsule.Dr) 20 mg PO BID@0630,1630 [facility] Last Admin: 05/04/25 04:54 Dose: Not Given Documented By: LISSET Non-Admin Reason: Patient Refused Prednisone (Prednisone 20 Mg Tablet) 40 mg PO DAILY [facility] Last Admin: 05/04/25 10:26 Dose: 40 mg Documented By: NICKIE Sodium Chloride (0.9 % Sodium Chloride Flush 3 Ml Syringe) 3 ml IVFLUSH QSHIFT [facility] Last Admin: 05/04/25 10:27 Dose: 3 ml Documented By: NICKIE Spironolactone (Spironolactone 25 Mg Tablet) 12.5 mg PO DAILY [facility]; Protocol Thiamine HCl (Thiamine Hcl 100 Mg Tablet) 100 mg PO DAILY [facility] Last Admin: 05/04/25 10:26 Dose: 100 mg Documented By: NICKIE Labs 05/04/25 06:53 12/02/25 06:53 Labs: Laboratory Results - last 24 hr 05/04/25 05/04/25 06:53 10:36 MCV 92.1 MCH 28.2 MCHC 30.7 L RDW 16.8 H Plt Count 201 MPV 10.8 Immature Gran % (Auto) 0.5 H Neut % (Auto) 91.2 H Lymph % (Auto) 3.7 L [place] % (Auto) 4.4 Eos % (Auto) 0.0 Baso % (Auto) 0.2 Lymph # (Auto) 0.5 L [place] # (Auto) 0.6 Eos # (Auto) 0.0 Baso # (Auto) 0.0 Abs Immat Gran (auto) 0.06 H Absolute Neuts (auto) 11.5 H Absolute Nucleated RBC 0.020 H Nucleated RBC % (auto) 0.2 Smear Tech's Comments VERIFIED PT 17.6 H INR 1.5 H VBG pH 7.39 VBG pCO2 69 VBG pO2 142 VBG HCO3 43 H VBG O2 Saturation 100.0 VBG Base Excess 15.5 Anion Gap 15 Estim Creat Clear Calc 37.5 Estimated GFR 49 Random Glucose 154 H Calcium 9.1 NT-Pro-B Natriuret Pep 64745.8 H Microbiology Microbiology Results: Microbiology 04/28/25 17:50 Blood Culture - Final Blood - Venous No growth after 5 days. 04/28/25 17:32 Blood Culture - Final Blood - Venous No growth after 5 days. Assessment and Plan (1) Multifocal pneumonia: Status: Acute (2) Septic shock: Status: Acute Plan 84-year-old female, with a background medical history of paroxysmal atrial fibrillation on apixaban, porcine mitral valve replacement, HFrEF 15-20% s/p AICD, GORDON CPAP, CKD stage III B, HTN, HLD, pulmonary HTN, COPD not on home O2, recent admission 04/15-04/25/2025 for acute pyelonephritis and supratherapeutic INR (warfarin to apixaban) c/b influenza a URI, presented to emergency room 04/28 with altered mental status and shortness of breath, admitted to medical ICU with septic shock requiring pressor support 2/2 multifocal pneumonia & superimposed multifactorial acute hypoxic respiratory failure (PNA & acute CHF exacerbation rEF 15-20%), course c/b hematuria 2/2 supratherapeutic INR in the setting of retained ureteral stents due to previous nephrolithiasis & hydroureteronephrosis, transferred to medical floor 04/30/2025. Septic shock Multifocal pneumonia Recent pyelonephritis with hydroureteronephrosis 2/2 nephrolithiasis Hypotensive, required pressor support in MICU. X-ray revealing infrahilar opacities and diffuse pulmonary congestion likely reflecting a pneumonia. Completed treatment for pyelonephritis. Blood cultures -ve Received volume resuscitation Patient was on metoprolol last admission, not carvedilol PLAN - continue ceftriaxone, doxycycline - continue prednisone 40mg OD PO - hold lisinopril - hold amlodipine - hold metoprolol Acute hypoxic respiratory failure Infective exacerbation of COPD Acute exacerbation is HFrEF 15-20% Pulmonary HTN Recent influenza A Patient has metoprolol and carvedilol both on her medication list; unclear why; we will clarify with family members Required high-flow for hypoxic respiratory failure. Intolerant of CPAP/BiPAP. DNR/DNI - no intubation. Currently on NC PLAN - furosemide 20 mg b.i.d. IV - clarify beta-nguyen medication and dose at home - continue oxygen as per protocol; aim for SpO2 > 92% - Prednisone 40mg OD PO - DuoNebs / albuterol - benzonatate p.r.n. - guaifenesin p.r.n. Goals of care Pt with multiple significant comorbidities and overall poor prognosis. After discussion with family will get hospice consult Pyelonephritis Nephrolithiasis Ureteral stenting Hematuria Patient was diagnosed and treated for pyelonephritis on previous admission The patient was transitioned from warfarin to apixaban on prior admission for her atrial fibrillation On admission, the patient is noted to have supratherapeutic INR The patient's clinical course has been c/b hematuria in the setting of a supratherapeutic INR The patient received 2 units FFP, and vitamin K while in the ICU; which effectively reversed her INR PLAN - urology following, plan on stent removal later in the day - maintain Holt - avoid anticoagulation at this time Paroxysmal atrial fibrillation Supratherapeutic INR - previously on warfarin Anticoagulation with apixaban - currently held Patient was on metoprolol last admission, not carvedilol Patient on amiodarone, which was held in the ICU due to hypotension Anticoagulation is on hold due to hematuria. Patient was on warfarin during prior admission. This was discontinued, and apixaban was started. The patient presents with supratherapeutic INR around 6 - received FFP x2 and vitamin K with improvement in INR PLAN - recheck daily INR - FFP and vitamin K for increase - monitor for signs and symptoms of bleeding - resume amiodarone 200 mg OD p.o. - cardiology consultation - consider resumption of metoprolol GORDON Can not tolerate CPAP We will attempt again Chronic sacral and heel decubitus ulcers Wound Care consultation - airloss mattress - Right heel: Elevate heels off of bed surface with pillows. Float heels off of pillows. Apply skin prep allow to dry. Apply heel foam dressings, peel back and assess Q shift and change every 5-7 days and PRN - Coccyx: Off Load Pressure with Q2 hr turns and use of pillows - Cleanse with PH balance spray or wipes, pat dry. ?Apply thin layer of Triad to wound bed. Do not remove all of paste between applications as this may cause further skin damage.? Cover with foam dressing to aid in off loading and protection from friction. Change every other day and PRN. - Left lateral heel: cleanse with normal saline, apply skin prep palmer wound, apply durafiber ag, to wound bed, cover with heel foams, change every other day and PRN - elevate heels off surface of bed with pillows - Bilateral Lower Legs - Routine Cleansing. Apply Ammonium Lactate cream per provider orders. Lung nodule on CT - repeat chest CT in 3 mo outpt Thyroid nodules on CT - f/u output for thyroid US T10 fracture on CT Chronic back pain Likely secondary to fall at home in bathroom 4 weeks prior; pt hit back on toilet, did not seek medical evaluation at that time [facility] neurosurgery suggested fx appears stable, no need for transfer PLAN - pain management - outpatient evaluation - PT consulted Pt requires continued hospitalization due to surgical stent removal in the OR later in the afternoon, as well as multiple other significant comorbidities requiring IV medications and close monitoring of labs and vitals. Quality Stroke Does the patient have a stroke diagnosis?: No VTE Prior VTE?: No VTE Risk Level:: Medical - moderate - high VTE Device Contraindication: N/A - Device Ordered VTE Drug Contraindication: N/A - Med Ordered
--- NOTE | 2025-05-04 13:41 | MHC.CM.PN ---
Addendum entered by Juana Li RN 05/04/25 13:56: [facility] HAS NO BED OFFER. REFERRAL EXPANDED CM TO DISCUSS ANY OFFERS WITH FAMILY SO THAT DC PLAN CAN PROGRESS. Original Note: CM MET WITH FAMILY/HCP PER REQUEST. DAUGHTER, JHON, IS HOPING FOR A REFERRAL TO [facility], NOW PLACED. PLAN WOULD BE POSSIBLE PALLIATIVE. FAMILY AWARE OF POSSIBLE LACK OF SNF BENEFIT SECONDARY TO INSURANCE. CM FOLLOWING AND WILL UPDATE FAMILY WITH RESULTS. FAMILY DOES NOT FEEL PATIENT WILL BE SAFE AT HOME WITH ONLY SPOUSE TO CARE FOR HER.
--- NOTE | 2025-05-04 14:32 | MHC.CM.PN ---
Addendum entered by Juana Li RN 05/04/25 14:46: DAUGHTER, JHON, , AWARE OF PRIVATE PAY FOR SNF BED AT [facility]. ONCE MORE OFFERS ARE MADE, CM CAN UPDATE JHON. POSSIBLE HOME WITH HOSPICE SERVICES AND FAMILY WILL HAVE TO ARRANGE FOR [id number] CARE. Original Note: HOSPITALIST REACHED OUT TO [facility] TO CONSULT. AGENCY NOTIFIED THIS WIRTER AND ASKED FOR A REFERRAL TO BE PLACED IN [place], NOW COMPLETED.
--- NOTE | 2025-05-04 15:30 | MHC.CM.PN ---
ASMITA MUNOZ OFFERING A BED. THIS MEDICAL OFFICE ASSISTANT INSTRUCTOR ASKED IF THERE IS ANY COPAY. CALL ALSO PLACED TO INQUIRE, AND MESSAGE LEFT FOR A CALL BACK. ONCE VERIFICATION IS RECEIVED, CM TO REACH OUT TO DAUGHTER/HCP, JHON.
--- NOTE | 2025-05-04 15:31 | HO.WOUND ---
Wound Consult: Initial 84 yr old female admitted to [facility] [place]28/25 - See progress notes and H&P for detailed history. Wound consult placed for coccyx. Patient agreeable to assessment and photo documentation. Patient lethargic and minimally participates. Patient with recent admission with pressure injuries to coccyx and left heel, area of purpura noted to right heel. on current admission noted with other areas of bruising/purpura - right heel, right upper buttocks/posterior hip. Patient with increase INR and low platelets contributing to purpura. Patient is cachetic with bony prominences protruding. Coccyx Etiology: Coccyx stage 3 pressure injury Present on Admission Measurements: 0.8cm x 1.5cm x 0.3cm Wound Bed: full thickness but small and shallow, moist red/yellow - area of intact linear purpura noted - not over bony area Drainage / Odor: scant serosang no odor Edges: ? hyperpigmentation Palmer wound: ? No Induration, Fluctuance or Warmth noted Goals of Treatment: ? triad/foam Right posterior hip Etiology: purpura Wound Bed: irregular area of intact purple coloration no over bony area Drainage / Odor: none Edges: ? irregular Palmer wound: ? No Induration, Fluctuance or Warmth noted Goals of Treatment: ? foam Left heel Etiology: unstageable pressure injury Present on Admission Measurements: 0.5cm x 0.8cm x 0.1cm Wound Bed: dry yellow Drainage / Odor: no drainage Palmer wound: ? No Induration, Fluctuance or Warmth noted Pain: none Goals of Treatment: ?offloading with foam Right heel Etiology: purpura in the setting of increase INR, low platelets Wound Bed: intact purple, blanching red Drainage / Odor: none Palmer wound: ? No Induration, Fluctuance or Warmth noted Goals of Treatment: ? offlaoding with foam Sternum Sternum - with area of protruding - possible sternal wires= skin with purpura surrounding, small superficial opening with scant dried drainage on old dressing - recommending covering with thin foam for protection. Recommendations: 1. Turn and Reposition every 2 hours and as needed for patient comfort. Use pillows or wedges to support off loading positions. 2. Off Load all bony prominences with use of pillows and heel boots if needed. Apply Preventative foams where needed. 3. Monitor for incontinence and moisture control, use barrier creams when needed for prevention and treatment. 4. Provide adequate and supplemental nutrition. 5. Order or Continue low air loss mattress. 6. When applicable maintain blood glucose levels per Providers order. Sternum: cleanse with saline, pat dry, apply skin prep palmer wound, apply thin foam, change every 3 days and PRN. Coccyx: Off Load Pressure with Q2 hr turns and use of pillows - Cleanse with PH balance spray or wipes, pat dry. ?Apply thin layer of Triad to wound bed. Do not remove all of paste between applications as this may cause further skin damage.? Cover with foam dressing to aid in off loading and protection from friction. Change every 3 days and PRN. Bilateral heels: Elevate heels off of bed surface with pillows. Float heels off of pillows. Apply skin prep allow to dry. Apply heel foam dressings, peel back and assess Q shift and change every 5-7 days and PRN. Re-consult wound care Nurse for wound deterioration or wound changes.
--- NOTE | 2025-05-04 15:49 | MHC.CM.PN ---
[facility] OFFERS BED WITH NO COPAY FOR 20 DAYS AND THEN [employer] WILL REPORTEDLY COVER THE NEXT 10 DAYS. DAUGHTER, JHON, MADE AWARE ([phone]) REQUEST SENT TO [facility] OF [facility] LIAISON TO CALL THE DAUGHTER TO WORK OUT THE DETAILS. LIKELY DC TO THIS SNF TOMORROW.
--- NOTE | 2025-05-04 16:11 | MHC.CM.PN ---
DAUGHTER/HCP, JHON, IS ACCPETING [facility] BED OFFER AFTER CONVERSATION WITH FACILITY LIAISON. PER DAUGHTER, PATIENT WILL STAY A MINIMUM OF 7 DAYS WITH NO CO-PAY. THIS WILL GIVE FAMILY TIME TO ARRANGE FOR HOME WITH [facility]. IF PATIENT IS SKILLED UNDER HER CARE, SHE WILL REMAIN A [facility] LONGER PER DAUGHTER. HOSPITALIST MADE AWARE OF BED OFFER. PLAN FOR DC SATURDAY 05/05
[2025-05-05] VITALS: BP 103/57; PULSE 75; RESP 18; TEMP 36.3; O2SAT 99
[2025-05-05] MEDS: Lidocaine 4 % Patch ADH..PATCH 2 PATCH TRANSDERMA (01:23)
[2025-05-05 03:59] VITALS: BP 101/59; PULSE 80; RESP 18; TEMP 36.8; O2SAT 98
[2025-05-05 05:58] VITALS: BMI 26.6
[2025-05-05 07:16] VITALS: BP 110/62; PULSE 82; RESP 20; TEMP 36.9; O2SAT 98
[2025-05-05 07:29] LABS: MANUAL DIFF FLAG NO
[2025-05-05 07:45] LABS: Hematocrit 32.7 % (37.0-47.0); Hemoglobin 9.8 g/dl (12.0-16.0); INTERNATIONAL NORM RATIO 1.8 (0.9-1.1); Imm Gran Abs Auto 0.07 X10*3/uL (0.00-0.03); Imm Gran Pct Auto 0.9 % (0.0-0.4); Lymphocytes Absolute Auto 0.6 X10*3/uL (1.2-4.9); Mean Corpuscular HGB Conc 30.0 g/dl (31.0-35.0); Mean Corpuscular Hemoglobin 27.5 pg (27.0-33.0); Mean Corpuscular Volume 91.9 fL (80.0-98.0); NRBC Abs Auto 0.000 X10*3/uL (0.0-0.012); NRBC Pct Auto 0.0 /100WBC (0.0-0.2); Platelet Count 162 X10*3/uL (160-400); Prothrombin Time 21.2 SEC (11.2-13.5); Red Blood Count 3.56 X10*6/uL (4.20-5.50); White Blood Count 7.9 X10*3/uL (4.8-10.8)
[2025-05-05 08:04] LABS: Anion Gap 11 (12-20); Blood Urea Nitrogen 41 mg/dL (9-16); Calcium 9.0 mg/dL (8.4-10.2); Carbon Dioxide 38 mmol/L (22-29); Chloride 102 mmol/L (96-108); Creatinine Clr Calc Pharmacy 44.1; Estimated Glomerular Filt Rate 59; Potassium 4.1 mmol/L (3.3-5.1); Sodium 147 mmol/L (135-145)
[2025-05-05] MEDS: Furosemide 20 MG/2 ML VIAL IVPUSH (08:07)
[2025-05-05] MEDS: 0.9 % Sodium Chloride Flush 3 ML SYRINGE IVFLUSH (08:13)
[2025-05-05] MEDS: Ammonium Lactate 12 % Lotion 226 GM BOTTLE 1 APPL TOPICAL (08:19)
--- NOTE | 2025-05-05 10:30 | MHC.CLN ---
F/U PO INTAKE 25% CONSISTENTLY DIET RX:2GM NA PUREE WITH NECTAR THICK LIQUIDS RESTARTING FORTIFIED ICE CREAM TID TO PROMOTE NUTRITIONAL INTAKE AND SKIN INTEGRITY SUPPLEMENT TO PROVIDE 870 KCALS, 27 G PROTEIN WITH 100% ACCEPTANCE MONITOR PO INTAKE AND ENCOURAGE SUPPLEMENTS NOTED FAMILY REQUESTED HOSPICE CONSULT
[2025-05-05 11:11] VITALS: BP 111/62; PULSE 84; RESP 18; TEMP 36.2; O2SAT 100
--- NOTE | 2025-05-05 13:36 | PM.DS ---
DS: Providers Provider Date of Service: 05/05/25 Date of admission: 04/28/25 23:17 Date of discharge: 05/05/25 Primary care physician: Kiesha Macedo MD Consults: 04/29/25 01:24 Consult to Wound Care Routine Consulting Provider: [facility] [place] Wound Care Management Reason for consultation: ?stage 2 PI to coccyx, multiple skin tears Has provider been notified: Yes 04/29/25 06:18 Consult to Urology Stat Consulting Provider: [facility] [place] Urology Services Reason for consultation: Hematuria, elevated INR Has provider been notified: No 05/04/25 10:16 Consult to Cardiology Routine Consulting Provider: [facility] [place] Cardiovascular Specialists Reason for consultation: Bnp increasing, chf DS: Diagnosis Discharge Diagnosis (1) Multifocal pneumonia: Status: Acute (2) Septic shock: Status: Acute DS: Summary Hospital Course Hospital Course: From admission HPI: Date of Service: 04/28/25 Attending physician on admission: Mandeep Amador Chief Complaint: Altered mental status The patient is a 84-year-old female with a past medical history significant for paroxysmal atrial fibrillation (on eliquis), history of porcine mitral valve replacement, AICD/pacemaker, GORDON on CPAP, congestive heart failure (LVEF 15-20%), chronic kidney disease, hypertension, hyperlipidemia, pulmonary hypertension and recent admission 04/15/2025 to 04/25/25 for acute pyelonephritis, supratherapeutic INR (Coumadin was switched to Eliquis), and influenza a.? She completed Tamiflu and cefuroxime 250 mg treatement, and discharge to rehab facility. Today patient presented to emergency department with altered mental status, patient was discharged on oxycodone for chronic back pain, EMS did give her some 1.5 mg of Narcan intranasally with good affect.? Patient also complained of shortness of breath. In ED she was noted to be tachypneic, hypoxic, and hypotensive. Imaging: Chest x-ray: Consistent with diffuse pulmonary congestion and infrahilar opacities, possibly representing atelectasis or pneumonia. ED course: Patient received ceftriaxone 2gm, doxycycline, ?500 mL crystalloid bolus, and albumin 100 mL. Hospital Course: Pt initially presented to the hospital from SNF due to lethargy and acute metabolic encephalopathy. Pt was found to have multifocal pneumonia with septic shock and started on IV antibiotics and then initially admitted to the ICU for pressor support. In the ICU pt developed new hematuria and Holt catheter was placed. INR continued to be supratherapeutic as high as 6.1 and pt received both vitamin K and 2 units of FFP. Pt was eventually stabilized and then was sent to the hospital floor where she was treated for both multifocal pneumonia as well as CHF exacerbation. On 05/03 pt underwent partial stent removal by Dr. Bolanos in Urology; the proximal ureteral stent remnant was retained and will need to be removed in a 2nd setting as necessary. Patient's hospital stay was further complicated by intermittent lethargy and somnolence. Patient's NT-pro-BNP was noted to significantly increase despite IV diuretics: 9,082.2-->14,634.3-->32,0943.8. Given patient's frailty, significant comorbidities, and overall decline in health the past few months, had a long discussion with family members about goals of care. After hospice consult family decided to transfer pt to SNF for palliative/hospice care with possible transfer home on hospice. Expected length of stay is less than 30 days. Pt is still being treated for multifocal pneumonia with doxycycline 100 b.i.d. and cefuroxime 250 b.i.d. x5 days. Holt catheter is still place, and can be removed at the SNF once hematuria fully resolves, likely in the next 1-3 days. Patient's antihypertensives has been held while in the hospital, but may be resumed at the SNF as BP warrants. Rest of home medications may be resumed. Additional details concerning hospital stay as indicated below. 84-year-old female, with a background medical history of paroxysmal atrial fibrillation on apixaban, porcine mitral valve replacement, HFrEF 15-20% s/p AICD, GORDON CPAP, CKD stage III B, HTN, HLD, pulmonary HTN, COPD not on home O2, recent admission 04/15-04/25/2025 for acute pyelonephritis and supratherapeutic INR (warfarin to apixaban) c/b influenza a URI, presented to emergency room 04/28 with altered mental status and shortness of breath, admitted to medical ICU with septic shock requiring pressor support 2/2 multifocal pneumonia & superimposed multifactorial acute hypoxic respiratory failure (PNA & acute CHF exacerbation rEF 15-20%), course c/b hematuria 2/2 supratherapeutic INR in the setting of retained ureteral stents due to previous nephrolithiasis & hydroureteronephrosis, transferred to medical floor 04/30/2025. Septic shock Multifocal pneumonia Recent pyelonephritis with hydroureteronephrosis 2/2 nephrolithiasis Hypotensive, required pressor support in MICU. X-ray revealing infrahilar opacities and diffuse pulmonary congestion likely reflecting a pneumonia. Completed treatment for pyelonephritis prior admission Blood cultures -ve Received volume resuscitation, though not sepsis bolus due to CHF PLAN - continue ceftriaxone, doxycycline, ends 05/09 - received prednisone 40mg PO - lisinopril, amlodipine, metoprolol have been on hold; resume as warranted Acute hypoxic respiratory failure Infective exacerbation of COPD Acute exacerbation is HFrEF 15-20% Pulmonary HTN Recent influenza A Required high-flow for hypoxic respiratory failure. Intolerant of CPAP/BiPAP. DNR/DNI - no intubation. Currently on NC PLAN - furosemide 20 mg b.i.d. IV; will transition to home furomsemide 40mg po at discharge - continue oxygen as per protocol; aim for SpO2 > 92% - received DuoNebs / albuterol, benzonatate p.r.n., guaifenesin p.r.n. Goals of care Pt with multiple significant comorbidities and overall poor prognosis. After discussion with family will get hospice consult and plan is to discharge to SNF on palliative care Pyelonephritis Nephrolithiasis Ureteral stenting Hematuria Patient was diagnosed and treated for pyelonephritis on previous admission The patient was transitioned from warfarin to apixaban on prior admission for her atrial fibrillation On admission, the patient is noted to have initial supratherapeutic INR The patient's clinical course has been c/b hematuria in the setting of a supratherapeutic INR The patient received 2 units FFP, and vitamin K while in the ICU, which effectively reversed her INR PLAN - urology following, underwent partial stent removal by Dr. Bolanos in Urology on 05/03; has proximal ureter stent remnant retained and will need removal in a 2nd setting if necessary - maintain Holt for now, can be removed at SNF in the next 1-3 days once urine is clear - will resume Eliquis Paroxysmal atrial fibrillation Supratherapeutic INR - previously on warfarin Anticoagulation with apixaban - currently held Patient on amiodarone, which was held in the ICU due to hypotension Anticoagulation was on hold due to hematuria, now resumed Patient was on warfarin during prior admission. This was discontinued, and apixaban was started. The patient presents with supratherapeutic INR around 6- received FFP x2 and vitamin K with improvement in INR PLAN - monitor for signs and symptoms of bleeding - resume amiodarone 200 mg OD p.o. - resume metoprolol GORDON Can not tolerate CPAP Chronic sacral and heel decubitus ulcers Wound Care consultation - airloss mattress - Right heel: Elevate heels off of bed surface with pillows. Float heels off of pillows. Apply skin prep allow to dry. Apply heel foam dressings, peel back and assess Q shift and change every 5-7 days and PRN - Coccyx: Off Load Pressure with Q2 hr turns and use of pillows - Cleanse with PH balance spray or wipes, pat dry. ?Apply thin layer of Triad to wound bed. Do not remove all of paste between applications as this may cause further skin damage.? Cover with foam dressing to aid in off loading and protection from friction. Change every other day and PRN. - Left lateral heel: cleanse with normal saline, apply skin prep palmer wound, apply durafiber ag, to wound bed, cover with heel foams, change every other day and PRN - elevate heels off surface of bed with pillows - Bilateral Lower Legs - Routine Cleansing. Apply Ammonium Lactate cream per provider orders. Lung nodule on CT - repeat chest CT in 3 mo outpt Thyroid nodules on CT - f/u output for thyroid US T10 fracture on CT Chronic back pain Likely secondary to fall at home in bathroom 4 weeks prior; pt hit back on toilet, did not seek medical evaluation at that time [facility] neurosurgery suggested fx appears stable, no need for transfer PLAN - pain management - outpatient evaluation - PT consulted, recommend STR Time Attestation Discharge Coordination Time (in mins): 35 Quality: Safe Use of Opioids Does Pt have an Active Cancer Diagnosis on the Problem List?: No Quality: Stroke Does the patient have a stroke diagnosis?: No Physical Exam Exam: Exam: General: More awake and alert today, though speaking slowly and in a whisper. Answering appropriately. Frail and chronically ill and weak appearing Resp: Lungs diminished but clear. Pt on NC CVS: Irregularly irregular rhythm GI: Soft, no distention. Mild LLQ and RLQ tenderness Back: Thoracic kyphosis Skin: See wound care note for decubitus ulcers on heels and sacral area : Holt in place with tea-colored urine, no clear hemoptysis Neuro: Cranial nerves II-XII grossly intact bilaterally. Motor grossly intact bilaterally. Global though symmetric weakness throughout Extremities: No edema. Bilateral legs with chronic venous stasis dermatitis changes. Left foot with limited ROM. Psych: Appropriate affect Vital Signs: Vital Signs: Last Vital Signs Temp 97.1 F 05/05/25 11:11 Pulse 84 05/05/25 11:11 Resp 18 05/05/25 11:11 BP 111/62 05/05/25 11:11 Pulse Ox 100 05/05/25 11:11 O2 Del Method Nasal Cannula 05/05/25 11:11 O2 Flow Rate 2 05/05/25 11:11 FiO2 30 05/03/25 08:00 Oxygen Flow Rate 40 04/28/25 23:17 BMI result Body Mass Index 26.6 DS: Data Data Completed and Pending Completed studies during hospitalization [Text1]: Procedures Assistance with Respiratory Ventilation, Less than 24 Consecutive Hours, Continuous Positive Airway Pressure (10/07/22) Dilation of Right Ureter with Intraluminal Device, Via Natural or Artificial Opening Endoscopic (11/26/23) Fluoroscopy of Right Kidney, Ureter and Bladder (11/26/23) Pending studies at discharge: Pending at discharge 05/03/25 15:35 Surgical [PTH] Routine Labs on day of discharge: Laboratory Results - last 24 hr 05/05/25 07:22 WBC 7.9 RBC 3.56 L Hgb 9.8 L Hct 32.7 L MCV 91.9 MCH 27.5 MCHC 30.0 L RDW 16.6 H Plt Count 162 MPV 10.8 Immature Gran % (Auto) 0.9 H Neut % (Auto) 86.4 H Lymph % (Auto) 7.0 L [place] % (Auto) 5.7 Eos % (Auto) 0.0 Baso % (Auto) 0.0 Lymph # (Auto) 0.6 L [place] # (Auto) 0.5 Eos # (Auto) 0.0 Baso # (Auto) 0.0 Abs Immat Gran (auto) 0.07 H Absolute Neuts (auto) 6.8 Absolute Nucleated RBC 0.000 Nucleated RBC % (auto) 0.0 PT 21.2 H D INR 1.8 H Sodium 147 H Potassium 4.1 Chloride 102 Carbon Dioxide 38 H Anion Gap 11 L BUN 41 H Creatinine 0.91 Estim Creat Clear Calc 44.1 Estimated GFR 59 Random Glucose 108 Calcium 9.0 Discharge Plan Discharge Anticipated Discharge Date/Time: 05/05/25 12:51 Patient Disposition: Xfer SNF Discharge Diagnosis: Multifocal pneumonia with septic shock [facility] Day Referral Note: PALLIATIVE CARE Kiesha Macedo MD [Primary Care Provider, Internal Medicine] - 1 Week Discharge Medications: New doxycycline monohydrate 100 mg capsule 100 mg PO BID Qty: 10 0RF Rx Instructions: Take 1 capsule twice a day with food for the next 5 days, ending 05/09 cefuroxime axetil 250 mg tablet 250 mg PO BID Qty: 10 0RF Rx Instructions: Take 1 tablet twice a day with food for the next 5 days, ending 05/09 Continued lisinopril 5 mg tablet 5 mg PO BID Qty: 90 2RF atorvastatin 80 mg tablet 80 mg PO DAILY Qty: 90 3RF omeprazole 20 mg capsule,delayed release(DR/EC) 20 mg PO BID@0630,1630 amlodipine 5 mg tablet 5 mg PO DAILY umeclidinium-vilanterol [Anoro Ellipta] 62.5-25 mcg/actuation Blister With Device 1 inh INHALATION DAILY furosemide [Lasix] 40 mg tablet 40 mg PO BID cholecalciferol (vitamin D3) [Vitamin D3] 10 mcg (400 unit) Tablet 10 mcg PO DAILY potassium chloride 20 mEq Tablet Extended Release 20 meq PO DAILY benzonatate 100 mg Capsule 100 mg PO TID PRN (Reason: Cough) Qty: 30 0RF oxycodone 5 mg tablet 5 mg PO Q8H PRN (Reason: pain, severe) Qty: 10 0RF Rx Instructions: Partial Fill upon patient request. Take 1 tablet up to 3 times a day for severe pain Eliquis 2.5 mg tablet 2.5 mg PO BID Qty: 60 0RF Rx Instructions: Take one tablet twice a day. Only begin once INR in <2.0 ammonium lactate 12 % lotion 1 appl topical BID Qty: 225 0RF Rx Instructions: Apply twice daily to lower legs albuterol sulfate 90 mcg/actuation HFA aerosol inhaler 2 puff inhalation Q4H PRN (Reason: shortness of breath or wheezing) ipratropium-albuterol 0.5 mg-3 mg(2.5 mg base)/3 mL Solution For Nebulization 3 ml INHALATION Q6H PRN (Reason: Wheezing) ascorbate calcium (vitamin C) 500 mg tablet 500 mg PO DAILY zinc gluconate 50 mg tablet 50 mg PO DAILY dqisffjfqdym-Eh-yqls-minerals Tablet 1 tab PO DAILY thiamine HCl (vitamin B1) 100 mg capsule 100 mg PO DAILY acetaminophen 325 mg capsule 650 mg PO Q6H PRN (Reason: Fever Or Pain) amiodarone 200 mg tablet 200 mg PO DAILY metoprolol succinate 50 mg tablet extended release 24 hr 50 mg PO DAILY Qty: 90 2RF spironolactone 25 mg tablet 12.5 mg PO DAILY Qty: 90 2RF Protocol: Hold for SBP< HOLD for SBP < : 90 Discontinued carvedilol 12.5 mg tablet 12.5 mg PO BID Discharge Orders: Discharge Order (Routine); Ordered 05/05/25 Ordered By: Blas Ramirez Activity on Discharge: As tolerated Stand Alone Forms: Patient Portal Discharge page Print Language: Nauruan Care Plan Goals: See below Health Concerns: Multifocal pneumonia CHF exacerbation Septic shock Acute hypoxic respiratory failure Supratherapeutic INR Plan of Treatment: You initially presented to the hospital from short-term rehab due to lethargy and increased confusion. You were found to have multifocal pneumonia with septic shock and started on IV antibiotics and initially admitted to the ICU for blood pressure support. You developed hematuria in the setting of elevated INR and were given both vitamin K and fresh frozen plasma in order to lower your bleeding risk. You were eventually transferred from the ICU to the hospital floor and treated for both multifocal pneumonia and CHF exacerbation. You underwent partial stent removal of a Dr. Bolanos in Urology on 05/03; procedure was complicated by proximal ureteral stent remnant being retained and will need to be removed at a separate time if necessary. You were seen and evaluated by Physical therapy who recommended short-term rehab and you will be discharged to a SNF for palliative care. -- take doxycycline 100 mg and cefuroxime 250 mg twice a day with food for the next 5 days, ending 05/09 -- your blood pressure medications have been on hold while in the hospital due to low blood pressure; these may be resumed at the SNF as your blood pressure warrants -- you will be discharged with a Holt catheter in place which can be removed at the SNF once urine is clear -- your Eliquis has also been on hold while in the hospital due to hematuria and elevated INR. This may be resumed at the SNF --you may resume all of your other home medications Assessment: See discharge summary
--- NOTE | 2025-05-05 14:11 | MHC.CM.PN ---
`PT DISCHARGING TO [facility] ON PALLIATIVE CARE, NIDA LEFT MESSAGE W/PT'S DTR/HCP THIS AM AND ATTEMPTED TO MEET W/HER AT BEDSIDE HOWEVER SHE HAD LEFT, PT'S GSON DID CONFIRM PT'S PLAN IS TO TXFR TO [facility] ON PALLIATIVE CARE, CLEMENTINA BOOKED FOR 2PM.
--- NOTE | 2025-05-09 19:10 | P.CDIM_ITS ---
PROVIDER RESPONSE TEXT: To clarify, the appropriate diagnosis supported by the clinical indicators: Hypernatremia QUERY TEXT: PHYSICIAN'S DOCUMENTATION REQUEST Date of Query: 05/04/2025 09:04 AM EST Patient Name: Ramona Pinon Admit Date: 04/29/2025 Dear Blas KENNEDY, A review of the medical record indicates additional documentation may be needed. Please review below and update the documentation accordingly. Clinical Indicators: LABS: Sodium 148 H fluids Based on the above, is there a diagnosis that correlates with these finding? Hypernatremia Labs indicate a diagnosis of (please specify) Other (explain) Clinically unable to determine (explain) Thank you, Emmy Enriquez, CCS, CDIS Use of terms such as suspected, likely, concern for, or probable (associated with a specific diagnosis that is being evaluated, monitored, or treated as if it exists) are acceptable and can be coded in the inpatient setting, when documented at the time of discharge. Please use your independent medical judgment in providing your response. THIS QUERY IS PART OF THE PERMANENT MEDICAL RECORD
== END 2025-05-05 14:44 | disposition skilled nursing facility (03) | DRG 871 ==
LOC: HO.ED 17:25 → HO.EDOVER 23:27 → HO.ICU 23:33 → HO.IMC 04-30 07:17
PROVIDERS: Hospitalist; Internal Medicine Pulmonary Disease; Urology; Admitting Provider Registered Nurse Community Health; Emergency Provider Student in an Organized Health Care Education/Training Program; PCP Internal Medicine; Visit Provider Student in an Organized Health Care Education/Training Program
PROC: 0TC68ZZ Extirpation of Matter from Right Ureter, Via Natural or Artificial Opening Endoscopic (ICD-10-PCS; principal; 2025-05-03 14:10)
DX: A41.9 Sepsis, unspecified organism (principal); G93.41 Metabolic encephalopathy; I50.23 Acute on chronic systolic (congestive) heart failure; R65.21 Severe sepsis with septic shock; J96.01 Acute respiratory failure with hypoxia; J10.00 Influenza due to other identified influenza virus with unspecified type of pneumonia; S22.079A Unspecified fracture of T9-T10 vertebra, initial encounter for closed fracture; J44.0 Chronic obstructive pulmonary disease with (acute) lower respiratory infection; I13.0 Hypertensive heart and chronic kidney disease with heart failure and stage 1 through stage 4 chronic kidney disease, or unspecified chronic kidney disease; J44.1 Chronic obstructive pulmonary disease with (acute) exacerbation; E87.0 Hyperosmolality and hypernatremia; R04.2 Hemoptysis; T83.89XA Other specified complication of genitourinary prosthetic devices, implants and grafts, initial encounter; N20.1 Calculus of ureter; N18.32 Chronic kidney disease, stage 3b; Z87.891 Personal history of nicotine dependence; I48.0 Paroxysmal atrial fibrillation; R79.1 Abnormal coagulation profile; R91.1 Solitary pulmonary nodule; W19.XXXA Unspecified fall, initial encounter; I27.20 Pulmonary hypertension, unspecified; E04.1 Nontoxic single thyroid nodule; Z66 Do not resuscitate; G47.33 Obstructive sleep apnea (adult) (pediatric); G89.29 Other chronic pain; M54.9 Dorsalgia, unspecified; R31.9 Hematuria, unspecified; Z95.3 Presence of xenogenic heart valve; Z95.810 Presence of automatic (implantable) cardiac defibrillator; Z79.01 Long term (current) use of anticoagulants; Z79.899 Other long term (current) drug therapy
CPT/HCPCS: 36415; 71045; 74018; 80048; 80053; 81001; 82040; 82803; 83010; 83605; 83615; 83735; 83880; 84100; 84145; 84443; 84484; 85025; 85027; 85384; 85610; 86140; 86850; 86900; 86901; 87040; 87637; 88300; 88304; 88311; 93005; 94640; 99285; C1758; C1769; J0131; J0696; J1271; J1938; J1956; J2003; J2270; J2371; J2405; J2704; J3010; J3430; J3475; J7120; P9017; P9047; Q9967

== ENCOUNTER → 2025-04-28 17:07 | Outpatient (BNV) | payer MEDICARE, BC, SELFPAY | PROVIDERS: Admitting Provider Registered Nurse Community Health; Emergency Provider Student in an Organized Health Care Education/Training Program; Visit Provider Internal Medicine Cardiovascular Disease | DX: R94.31 Abnormal electrocardiogram [ECG] [EKG] (principal); Z95.0 Presence of cardiac pacemaker | CPT/HCPCS: 93010 ==

== ENCOUNTER → 2025-04-28 17:19 | Outpatient (BNV) | payer MEDICARE, BC, SELFPAY | PROVIDERS: Emergency Provider Student in an Organized Health Care Education/Training Program; Visit Provider Radiology Diagnostic Radiology | DX: J90 Pleural effusion, not elsewhere classified (principal); J81.1 Chronic pulmonary edema; R91.8 Other nonspecific abnormal finding of lung field | CPT/HCPCS: 71045 ==

== ENCOUNTER 2025-04-28 23:17 | Outpatient (BNV) | payer MEDICARE, BC, SELFPAY | END 2025-04-29 14:24 | PROVIDERS: Admitting Provider Registered Nurse Community Health; Emergency Provider Student in an Organized Health Care Education/Training Program; Visit Provider Radiology Diagnostic Radiology | DX: J90 Pleural effusion, not elsewhere classified (principal); J81.0 Acute pulmonary edema | CPT/HCPCS: 71045 ==

== ENCOUNTER 2025-04-28 23:17 | Outpatient (BNV) | payer MEDICARE, BC, SELFPAY | END 2025-05-05 12:04 | PROVIDERS: Admitting Provider Registered Nurse Community Health; Emergency Provider Student in an Organized Health Care Education/Training Program; PCP Internal Medicine; Visit Provider Radiology Body Imaging | DX: R10.9 Unspecified abdominal pain (principal) | CPT/HCPCS: 74018 ==

== ENCOUNTER 2025-04-28 23:17 | Outpatient (BNV) | payer MEDICARE, BC, SELFPAY | END 2025-05-01 10:18 | PROVIDERS: Admitting Provider Registered Nurse Community Health; Emergency Provider Student in an Organized Health Care Education/Training Program; Visit Provider Radiology Diagnostic Radiology | DX: J81.0 Acute pulmonary edema (principal); J90 Pleural effusion, not elsewhere classified; I51.7 Cardiomegaly | CPT/HCPCS: 71045 ==

== ENCOUNTER → 2025-04-28 23:17 | Outpatient (BNV) | payer MEDICARE, BC, SELFPAY | PROVIDERS: Admitting Provider Registered Nurse Community Health; Emergency Provider Student in an Organized Health Care Education/Training Program; Visit Provider Hospitalist | DX: A41.9 Sepsis, unspecified organism (principal); R65.21 Severe sepsis with septic shock; J18.8 Other pneumonia, unspecified organism | CPT/HCPCS: 99233; 99239 ==

== ENCOUNTER → 2025-04-28 23:17 | Outpatient (BNV) | payer MEDICARE, BC, SELFPAY | PROVIDERS: Admitting Provider Registered Nurse Community Health; Emergency Provider Student in an Organized Health Care Education/Training Program; Visit Provider Internal Medicine | DX: I50.23 Acute on chronic systolic (congestive) heart failure (principal) | CPT/HCPCS: 99223 ==

== ENCOUNTER → 2025-04-28 23:17 | Outpatient (BNV) | payer MEDICARE, BC, SELFPAY | PROVIDERS: Admitting Provider Registered Nurse Community Health; Emergency Provider Student in an Organized Health Care Education/Training Program; Visit Provider Registered Nurse Community Health | DX: J96.01 Acute respiratory failure with hypoxia (principal); J18.9 Pneumonia, unspecified organism; J10.1 Influenza due to other identified influenza virus with other respiratory manifestations; I95.9 Hypotension, unspecified; I50.20 Unspecified systolic (congestive) heart failure; A41.9 Sepsis, unspecified organism; R79.1 Abnormal coagulation profile; R74.01 Elevation of levels of liver transaminase levels | CPT/HCPCS: 99291; 99499 ==

== ENCOUNTER → 2025-04-28 23:17 | Outpatient (BNV) | payer MEDICARE, BC, SELFPAY | PROVIDERS: Admitting Provider Registered Nurse Community Health; Emergency Provider Student in an Organized Health Care Education/Training Program; Visit Provider Internal Medicine Pulmonary Disease | DX: I42.9 Cardiomyopathy, unspecified (principal); Z95.3 Presence of xenogenic heart valve; Z98.890 Other specified postprocedural states; I48.21 Permanent atrial fibrillation; R79.1 Abnormal coagulation profile; Z96.0 Presence of urogenital implants; R31.9 Hematuria, unspecified; J10.1 Influenza due to other identified influenza virus with other respiratory manifestations; J44.9 Chronic obstructive pulmonary disease, unspecified | CPT/HCPCS: 99232 ==

== ENCOUNTER → 2025-04-28 23:17 | Outpatient (BNV) | payer MEDICARE, BC, SELFPAY | PROVIDERS: Admitting Provider Registered Nurse Community Health; Emergency Provider Student in an Organized Health Care Education/Training Program; Visit Provider Urology | DX: N20.0 Calculus of kidney (principal); Z96.0 Presence of urogenital implants | CPT/HCPCS: 99223 ==

== ENCOUNTER 2025-05-10 08:58 | Inpatient (IN) | payer MEDICARE, BC, SELFPAY ==
[2025-05-10] VITALS (20 sets, daily range): BP systolic 88–116; BP diastolic 42–67; PULSE 69–110; RESP 12–39; TEMP 36.1–37.1; O2SAT 92–99; BMI 23.4
--- NOTE | 2025-05-10 | ECG_ITS ---
Test Reason : arrhythmia Blood Pressure : */* mmHG Vent. Rate : 74 BPM Atrial Rate : 74 BPM P-R Int : * ms QRS Dur : 158 ms QT Int : 518 ms P-R-T Axes : * 84 250 degrees QTcB Int : 574 ms Ventricular-paced rhythm Abnormal ECG When compared with ECG of 10-May-2025 10:17, Vent. rate has increased by 2 bpm Referred By: Ghislaine Lucero Electronically Signed By: CARMITA ROCHA MD
--- NOTE | ~2025-05-10 | XR_ITS ---
EXAMINATION: XR CHEST CLINICAL INFORMATION: SOB COMPARISON: 05/01/2025 TECHNIQUE: 2 views of the chest were obtained. FINDINGS: 3-lead AICD is again noted. There is cardiomegaly. There is new opacification of the left hemithorax. There is shift mediastinum toward the left. There is persistent right perihilar density. There is improved aeration of the right lung base. XR/XR chest 2V IMPRESSION: Suspected left lung atelectasis with shift mediastinum toward the left. There could be underlying pleural effusion as well. Underlying pneumonia is not ruled out. Marilyn Chau, PAC notified via [employer], message Delivered at 10:24am EST Cardiomegaly and persistent mild pulmonary edema in the right lung with improved aeration of the right lung base. Electronically signed by: Cyrus Layton MD 05/10/2025 10:25 AM EST
--- NOTE | ~2025-05-10 | CT_ITS ---
EXAMINATION: CT CHEST ANGIOGRAPHY WITH IV CONTRAST, CT ABDOMEN PELVIS WITH IV CONTRAST HISTORY: SOB, hypoxia, diffuse abdominal pain COMPARISON: Comparison is made with the prior examination dated 04/15/2025. TECHNIQUE: Helical CT scan of the chest was performed following administration of intravenous contrast. The contrast bolus was timed to optimally opacify the pulmonary arteries. Thin sections were obtained through the pulmonary arteries. Subsequently, images were obtained from the lung bases through the proximal thighs. Coronal and sagittal reformatted images were generated. 3D/MIP reconstructed images are also obtained and reviewed. This CT exam was performed with one or more of the following dose reduction techniques: automated exposure control, adjustment of the mA and/or kV according to patient size, use of iterative reconstruction technique. DLP: 1027 mGy-cm CHEST: THYROID: Again seen is a multinodular thyroid gland. PULMONARY ARTERIES: There are small intraluminal filling defects within the right middle and lower lobe pulmonary arterial branches, consistent with pulmonary emboli. LUNGS: There is patchy airspace opacity in the right lower lobe, consistent with pneumonia. There is complete atelectasis of the left lung. MEDIASTINUM: There is no mediastinal lymphadenopathy. CECI: There is no hilar lymphadenopathy. CARDIOVASCULATURE: The heart remains markedly enlarged. There is no pericardial effusion. The thoracic aorta is normal in caliber. DEGREE OF CORONARY CALCIFICATION: not evaluable, due to dense contrast in the coronary arteries. PLEURA: There is a small right pleural effusion. A small left pleural effusion is noted with the majority of the fluid at the lung apex. No pneumothorax. MAIN AIRWAYS: There is a opacification and occlusion of the left main bronchus. AXILLA: There is no axillary lymphadenopathy. ABDOMEN/PELVIS: LIVER: The liver is normal in size and contour. No liver mass is identified. The hepatic and portal veins are patent. GALL BLADDER / BILE DUCTS: The gallbladder is surgically absent. There is no intra or extrahepatic biliary ductal dilatation. SPLEEN: The spleen is normal in size. There are nonspecific subcentimeter hypodensities in the spleen without change.. PANCREAS: The pancreas is unremarkable in appearance. ADRENAL GLANDS: Within normal limits. KIDNEYS/RETROPERITONEUM: There is a retained fragments of a right nephroureteral stent in the renal pelvis. There is mild thickening and enhancement of the right renal pelvis. There is a 2.0 cm left renal mass which measures 51 HU in density and may represent a solid mass. LYMPH NODES: No abdominal or pelvic lymphadenopathy. VASCULATURE: The abdominal aorta demonstrates atherosclerotic calcification, but is normal in caliber. MESENTERY/PERITONEUM: No free air or free fluid. No masses. STOMACH: The stomach is collapsed, limiting evaluation. SMALL BOWEL: The small bowel is normal in caliber. COLON: There is diverticulosis of the descending and sigmoid colon, without evidence of diverticulitis. APPENDIX: Appendix is not seen, however no inflammatory changes are seen adjacent to the cecum . URINARY BLADDER/PELVIC ORGANS: The urinary bladder is collapsed with a Hlot catheter. There is probable fluid in the endometrial canal. BONES / SOFT TISSUES: The patient is status post internal fixation of the right hip. CT/CT abdomen pelvis w IV con IMPRESSION: 1. Small pulmonary emboli in the right middle and lower lobes. 2. Right lower lobe pneumonia. 3. Complete opacification of the left main bronchus with complete atelectasis of the left lung. While this may be due to secretions, underlying neoplasm is not excluded. Further evaluation with bronchoscopy should be considered. 4. Retained fragments of a right nephroureteral stent in the renal pelvis. Thickening and enhancement of the payne of the renal pelvis could represent infection. 5. 2.1 cm mass at the lower pole of the left kidney which is hyperdense. Ultrasound correlation is recommended. 6. Diverticulosis of the descending and sigmoid colon, without evidence of diverticulitis. 7. Possible fluid in the endometrial canal. Correlation with ultrasound is suggested. 8. These findings were discussed with Marilyn Chau in the emergency room on 05/10/2025 at 11:55 AM. Electronically signed by: Tae Khan MD 05/10/2025 11:55 AM [facility] [place]
--- NOTE | 2025-05-10 09:44 | ED.GENADULT ---
HPI - General Adult General Chief complaint: General Medical Stated complaint: SUDDEN SOB/LOW BP, 97% 2LPM/HOME,106/65,FROM SNF Time Seen by Provider: 05/10/25 09:30 Source: patient, EMS, RN notes reviewed and old records reviewed Mode of arrival: EMS Limitations: no limitations History of Present Illness ED Provider: CHARANJIT Chau HPI narrative: 84-year-old female who is accompanied by her son and daughter in law, with medical history of HFrEF, CKD stage 3, HLD, HTN, GORDON, COPD, mitral regurg, pulmonary HTN, AFib on Eliquis presents to ED from [facility] due to SOB and increased work of breathing. Patient is somewhat of a poor historian stating she just doesn't feel good and feels tired from breathing. Family states the patient has complex recent history including a T10 fracture that occured 04/15 after a fall while in the bathroom and required stay in the ICU due to acute respiratory failure where the patient was unable to tolerate BiPAP requiring high flow O2 and pressors for blood pressure management. Family reports patient had small wound on the coccyx during her hospitalization here at [facility] that has gotten larger since patient has been at [facility] since 05/05/25. Patient denies chest pain, abdominal pain, nausea, vomiting, diarrhea, headache, visual changes. MD complaint: SOB, difficulty breathing Related Data Home Medications ?Medication ?Instructions ?Recorded ?Confirmed ascorbate calcium (vitamin C) 500 500 mg PO DAILY 01/04/23 04/29/25 mg tablet [id number]-minerals 1 tab PO DAILY 01/04/23 04/29/25 zinc gluconate 50 mg tablet 50 mg PO DAILY 01/04/23 04/29/25 acetaminophen 325 mg capsule 650 mg PO Q6H PRN Fever Or Pain 01/20/24 04/29/25 amiodarone 200 mg tablet 200 mg PO DAILY 07/27/24 04/29/25 omeprazole 20 mg capsule,delayed 20 mg PO BID@0630,1630 12/07/24 04/29/25 release thiamine HCl (vitamin B1) 100 mg 100 mg PO DAILY 01/12/25 04/29/25 capsule amlodipine 5 mg tablet 5 mg PO DAILY 04/15/25 04/29/25 furosemide 40 mg tablet (Lasix) 40 mg PO BID 04/15/25 04/29/25 umeclidinium 62.5 mcg-vilanterol 1 inh inhalation DAILY 04/15/25 04/29/25 25 mcg/actuation powdr for inhalation (Anoro Ellipta) cholecalciferol (vitamin D3) 10 10 mcg PO DAILY 04/16/25 04/29/25 mcg (400 unit) tablet (Vitamin D3) potassium chloride 20 mEq 20 meq PO DAILY 04/16/25 04/29/25 tablet,extended release albuterol sulfate 90 mcg/actuation 2 puff inhalation Q4H PRN 04/29/25 04/29/25 aerosol inhaler shortness of breath or wheezing ipratropium 0.5 mg-albuterol 3 mg 3 ml inhalation Q6H PRN Wheezing 04/29/25 04/29/25 (2.5 mg base)/3 mL nebulization soln Previous Rx's ?Medication ?Instructions ?Recorded metoprolol succinate 50 mg 50 mg PO DAILY #90 tabs 01/14/25 tablet,extended release 24 hr spironolactone 25 mg tablet 12.5 mg PO DAILY #90 tabs 01/14/25 lisinopril 5 mg tablet 5 mg PO BID #90 tabs 02/17/25 atorvastatin 80 mg tablet 80 mg PO DAILY #90 tabs 04/11/25 ammonium lactate 12 % lotion 1 appl topical BID #225 grams 04/24/25 apixaban 2.5 mg tablet (Eliquis) 2.5 mg PO BID #60 tabs 04/24/25 benzonatate 100 mg capsule 100 mg PO TID PRN Cough #30 caps 04/24/25 cefuroxime axetil 250 mg tablet 250 mg PO BID #10 tabs 05/05/25 doxycycline monohydrate 100 mg 100 mg PO BID #10 caps 05/05/25 capsule oxycodone 5 mg tablet 5 mg PO Q8H PRN pain, severe #10 05/05/25 tabs Allergies Allergy/AdvReac Type Severity Reaction Status Date / Time hydrocodone (From Vicodin) Allergy Mild CHEST PAIN Verified 05/10/25 09:39 Review of Systems Review of Systems: Yes all other systems are reviewed and are negative PMFSH Past Medical History Attestation statement: The following information was validated with the patient. Source: old records reviewed, obtained from family (Son and [id number] at bedside) and nursing notes reviewed Medical History Cardiomyopathy Permanent atrial fibrillation Preoperative cardiovascular examination Thyroid nodule incidentally noted on imaging study Lung nodule Ureteral stent present HFrEF (heart failure with reduced ejection fraction) Chronic atrial fibrillation Chronic anticoagulation Obesity CKD (chronic kidney disease) stage 3, GFR 30-59 ml/min Nephrolithiasis, uric acid Hyperlipidemia HTN (hypertension) A-fib GORDON (obstructive sleep apnea) COPD (chronic obstructive pulmonary disease) Pulmonary HTN Severe mitral regurgitation Thiamine deficiency Osteoporosis Surgical History S/P ureteral stent placement 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 Mother No problems noted. Maternal Aunt Breast cancer Social History Social History Household Members: Family Housing: Other Housing Other:: Rehab currently Are you a primary overnight caregiver to a significant other at home: No Unable to assess alcohol history related to: Unknown Alcohol intake: never Comment: 1:1 sitter Patient Tobacco Use Status: Former Tobacco user Tobacco use type: Cigarette Smoked in Last 30 Days: No e-Cigarette/Vaping Use: Never Used Second Hand Smoke Exposure: No Use of substances other than those prescribed or required for medical reasons: No Have you been hit, kicked, punched, or otherwise hurt by someone within the past year? If so, by whom?: No Do you feel safe in your current relationship?: No Is there a partner from a previous relationship who is making you feel unsafe now?: No Are you made to feel afraid or neglected: No Adventism Healthcare Practices: Denominational Advance Directives: Yes Advance Directives on File: Yes Advance Directives Date on File: 11/28/23 Recently lost weight without trying: Yes How much weight loss: 14-23 pounds Eating poorly because of decreased appetite: Yes Nutrition screen score: 5 Nutrition Risks: On aspiration precautions and Poor intake 0-25% >4 days Patient : No service: No Current occupational status: retired Cognitive needs: No Hearing needs: No Vision needs: No Physical Exam ED Vital Signs: Vital Signs - 24 hr 05/10/25 09:35 05/10/25 09:42 05/10/25 09:57 Temperature 98.7 F Pulse Rate 77 70 Respiratory Rate 16 16 13 Blood Pressure 94/49 L 88/42 L Pulse Oximetry 98 99 Oxygen Delivery Method Room Air Nasal Cannula Oxygen Flow Rate 2 Fraction of Inspired Oxygen 05/10/25 12:19 05/10/25 12:23 05/10/25 12:34 Temperature Pulse Rate 71 69 Respiratory Rate 20 12 16 Blood Pressure 98/54 L Pulse Oximetry 97 Oxygen Delivery Method BiPAP Oxygen Flow Rate Fraction of Inspired Oxygen 35 05/10/25 12:38 05/10/25 13:00 05/10/25 13:17 Temperature Pulse Rate 74 77 Respiratory Rate 18 Blood Pressure 98/54 L 108/61 106/64 Pulse Oximetry 97 Oxygen Delivery Method BiPAP Oxygen Flow Rate Fraction of Inspired Oxygen 35 BMI result Body Mass Index 23.4 GENERAL APPEARANCE: ?AxOx4, cachectic, increased work of breathing HEENT: ?NC, AT. MMM. EOMI, clear conjunctiva, oropharynx clear. NECK: ?Supple without lymphadenopathy.? No stiffness or restricted ROM. HEART:? Normal rate and regular rhythm, normal S1/S2, no m/r/g LUNGS:? rales and crackles heard throughout lung dunn ABDOMEN: ?Soft, nontender, nondistended with good BACK: No CVAT, no obvious deformity. EXTREMITIES: ?Without cyanosis, clubbing or edema. NEUROLOGICAL: ?Grossly nonfocal. Alert and oriented, moving all 4 extremities. Observed to ambulate with normal gait. Skin: ?Warm and dry without any rash. Medications Administered Generic Name Dose Route Start Last Admin Trade Name Freq PRN Reason Stop Dose Admin Norepinephrine Bitartrate 8 mg in 250 mls @ 0 mls/hr 05/10/25 12:30 05/10/25 12:38 Levophed IVCONT 0.05 mcg/kg/min .Q0M VIOLETA 5.61 mls/hr Protocol Administration Per Protocol Discontinued Medications Generic Name Dose Route Start Last Admin Trade Name Freq PRN Reason Stop Dose Admin Albuterol Sulfate 5 mg/ 0 mg 05/10/25 12:14 05/10/25 12:18 Albuterol/Ipratropium 3 ml INHALE 05/10/25 12:15 7.5 each ONCE ONE Administration Furosemide 80 mg 05/10/25 12:45 05/10/25 13:00 Furosemide 100 Mg/10 Ml Vial IVPUSH 05/10/25 12:46 80 mg ONCE ONE Administration Protocol Lactated Ringer's 1,000 mls @ 500 mls/hr 05/10/25 10:03 05/10/25 11:30 Lr IV 05/10/25 12:02 Infused .Q2H ONE Infusion Ceftriaxone Sodium 2 gm/ 50 mls @ 100 mls/hr 05/10/25 12:19 05/10/25 13:14 Sodium Chloride IV 05/10/25 12:48 Infused ONCE ONE Infusion Iohexol 100 ml 05/10/25 11:32 05/10/25 11:32 Iohexol 350 Mg/Ml 100 Ml Infus..Btl IV 05/10/25 11:33 85 ml ONCE ONE Administration Medical Decision Making Medical Decision Making MDM Narrative: 84-year-old female who is accompanied by her son and daughter in law, with medical history of HFrEF, CKD stage 3, HLD, HTN, GORDON, COPD, mitral regurg, pulmonary HTN, AFib on Eliquis presents to ED from [facility] due to SOB and increased work of breathing. Patient is somewhat of a poor historian stating she just doesn't feel good and feels tired from breathing. Family states the patient has complex recent history including a T10 fracture that occured 04/15 after a fall while in the bathroom and required stay in the ICU due to acute respiratory failure where the patient was unable to tolerate BiPAP requiring high flow O2 and pressors for blood pressure management. Family reports patient had small wound on the coccyx during her hospitalization here at [facility] that has gotten larger since patient has been at [facility] since 05/05/25. VS on initial observation-BP 94/49, pulse rate of 77, respiratory rate of 16, afebrile with oral temp of 98.7?, O2 saturation 98% on room air. On physical exam patient is cachectic, in mild distress due to increased work of breathing, lungs with coarse crackles of bilateral lung bases diminished breath sounds throughout lung dunn, no JVD noted, cardiac exam reveals regular rate and rhythm without murmurs/rubs/gallops, abdomen is soft, nondistended, no rigidity, I am able to palpate the vasculature of the abdomen, mild diffuse tenderness of L side of the abdomen. Plan: Labs, EKG, CTA PE, CT abdomen/pelvis Labs without leukocytosis/leukopenia, left shift of 83.7, stable normocytic anemia with a hemoglobin of 11.6, hematocrit of 37.7, hypernatremia of 150, elevated carbon dioxide of 38, elevated BUN of 52, elevated BNP of 21,647.3, elevated AST of 32, elevated alk phos of 131, elevated total bilirubin at 1.3, lactic acid WNL at 1.5. INR in theraputic range at 1.5. UA reveals concentrated urine, 1+ urine protein, 3+ urine blood, 3+ leukocyte esterase, >20 RBC, >50 WBC, 3-5 squamous cells, trace urine bacteria. VBG shows elevated bicarb of 43 without any other derangements COURSE Patient with consistently low BPs with lowest reading 88/42, history of HFrEF with rales and crackles at lung bases, I do not want to fluid overload the patient as BNP is 21,647. Patient being hydrated with gentle IV fluids 500 mL. Patient now requiring Levophed due to consistently low BPs however MAP is in range at 73. Patient with increased work of breathing and accessory muscle use. I consulted RT and started patient on BiPAP for respiratory failure. At 12:15pm on 05/10/2025 I suspected infection due to pneumonia/UTI patient being medicated with a 2 g ceftriaxone for empirical coverage. Patient with consistently low BPs however I do not want to fluid overload her as her BNP is 21,647 and cannot receive fluid bolus. Lactic acid is WNL at 1.9, no leukocytosis/leukopenia, afebrile. Patient currently on levophed to manage BP, 80mg IV furosemide is now being given for fluid overload. Patient currently on BiPAP. I reached out to Drafting Teacher Dr. Radha Cline who accepted patient to ICU for further management of CHF exacerbation and acute respiratory failure. Differential Diagnosis Differential Diagnoses: The differential diagnosis associated with the presentation includes ACS COPD exacerbation CHF exacerbation Pneumonia Dysrhythmia Electrolyte abnormality Acute abdomen UTI Admission/Observation Consideration of admission/observation: Escalation of care including admission/observation considered Consult Healthcare Provider Management of the patient was discussed with: [employer] We[employer] (Drafting Teacher Dr. Radha Cline) Lab Data MDM Lab Attestation statement: I reviewed the patient's lab results. 05/10/25 10:27 05/10/25 10:27 Labs: Lab Results 05/10/25 05/10/25 05/10/25 Range/Units 10:27 10:32 11:27 WBC 8.5 (4.8-10.8) X10*3/uL RBC 4.08 L (4.20-5.50) X10*6/uL Hgb 11.6 L (12.0-16.0) g/dl Hct 37.7 (37.0-47.0) % MCV 92.4 (80.0-98.0) fL MCH 28.4 (27.0-33.0) pg MCHC 30.8 L (31.0-35.0) g/dl RDW 18.7 H (11.0-16.0) % Plt Count 140 L (160-400) X10*3/uL MPV 10.8 (9.4-12.3) fL Immature Gran % (Auto) 0.6 H (0.0-0.4) % Neut % (Auto) 83.7 H (45-73) % Lymph % (Auto) 9.4 L (20-40) % Phillips % (Auto) 6.1 (2-11) % Eos % (Auto) 0.1 (0-4) % Baso % (Auto) 0.1 (0-2) % Lymph # (Auto) 0.8 L (1.2-4.9) X10*3/uL Phillips # (Auto) 0.5 (0.1-1.2) X10*3/uL Eos # (Auto) 0.0 (0.0-0.4) X10*3/uL Baso # (Auto) 0.0 (0.0-0.2) X10*3/uL Abs Immat Gran (auto) 0.05 H (0.00-0.03) X10*3/uL Absolute Neuts (auto) 7.1 (2.0-8.3) x10*3/uL Absolute Nucleated RBC 0.000 (0.0-0.012) X10*3/uL Nucleated RBC % (auto) 0.0 (0.0-0.2) /100WBC PT (11.2-13.5) SEC INR (0.9-1.1) VBG pH 7.43 (7.32-7.43) VBG pCO2 65 mmHg VBG pO2 47 mmHg VBG HCO3 43 H (22-26) mmol/L VBG O2 Saturation 43.0 % VBG Base Excess 16.3 mmol/L Sodium 150 H (135-145) mmol/L Potassium 4.8 (3.3-5.1) mmol/L Chloride 104 (96-108) mmol/L Carbon Dioxide 38 H (22-29) mmol/L Anion Gap 13 (12-20) BUN 52 H (9-16) mg/dL Creatinine 1.29 (0.5-1.4) mg/dL Estim Creat Clear Calc 27.8 Estimated GFR 40 Random Glucose 112 (60-115) mg/dL Lactic Acid 1.5 (0.5-2.0) mmol/L Calcium 8.8 (8.4-10.2) mg/dL Magnesium 2.3 (1.6-2.6) mg/dL Total Bilirubin 1.3 H (0.0-1.0) mg/dL AST 32 H (5-31) U/L ALT 18 (0-31) U/L Alkaline Phosphatase 131 H (39-117) U/L Ammonia 17 (13-55) umol/L Troponin I High Sens 48.3 H D (<3.5-17.0) ng/L NT-Pro-B Natriuret Pep 82938.3 H (<300) pg/mL Total Protein 5.5 L (6.5-8.0) g/dL Albumin 3.0 L (3.5-5.0) g/dL Urine Color Dark Yellow Urine Appearance Cloudy Urine pH 6.0 (5.0-9.0) Ur Specific Carlisle >= 1.030 H (1.005-1.025) Urine Protein 30 (1+) H (Neg-Trace) mg/dL Urine Glucose (UA) Negative (Negative) mg/dL Urine Ketones Trace (Negative) mg/dL Urine Blood Large (3+) H (Negative) Urine Nitrite Negative (Negative) Ur Leukocyte Esterase Large (3+) H (Negative) Urine RBC >20 H (0-2) /HPF Urine WBC >50 H (0-5) /HPF Ur Squamous Epith Cells 3-5 (0-2) /HPF Urine Bacteria Trace (None Seen) Hyaline Casts 11-20 (0-2) /LPF 05/10/25 05/10/25 Range/Units 13:56 13:57 WBC (4.8-10.8) X10*3/uL RBC (4.20-5.50) X10*6/uL Hgb (12.0-16.0) g/dl Hct (37.0-47.0) % MCV (80.0-98.0) fL MCH (27.0-33.0) pg MCHC (31.0-35.0) g/dl RDW (11.0-16.0) % Plt Count (160-400) X10*3/uL MPV (9.4-12.3) fL Immature Gran % (Auto) (0.0-0.4) % Neut % (Auto) (45-73) % Lymph % (Auto) (20-40) % Phillips % (Auto) (2-11) % Eos % (Auto) (0-4) % Baso % (Auto) (0-2) % Lymph # (Auto) (1.2-4.9) X10*3/uL Phillips # (Auto) (0.1-1.2) X10*3/uL Eos # (Auto) (0.0-0.4) X10*3/uL Baso # (Auto) (0.0-0.2) X10*3/uL Abs Immat Gran (auto) (0.00-0.03) X10*3/uL Absolute Neuts (auto) (2.0-8.3) x10*3/uL Absolute Nucleated RBC (0.0-0.012) X10*3/uL Nucleated RBC % (auto) (0.0-0.2) /100WBC PT 18.5 H (11.2-13.5) SEC INR 1.5 H (0.9-1.1) VBG pH (7.32-7.43) VBG pCO2 mmHg VBG pO2 mmHg VBG HCO3 (22-26) mmol/L VBG O2 Saturation % VBG Base Excess mmol/L Sodium (135-145) mmol/L Potassium (3.3-5.1) mmol/L Chloride (96-108) mmol/L Carbon Dioxide (22-29) mmol/L Anion Gap (12-20) BUN (9-16) mg/dL Creatinine (0.5-1.4) mg/dL Estim Creat Clear Calc Estimated GFR Random Glucose (60-115) mg/dL Lactic Acid (0.5-2.0) mmol/L Calcium (8.4-10.2) mg/dL Magnesium (1.6-2.6) mg/dL Total Bilirubin (0.0-1.0) mg/dL AST (5-31) U/L ALT (0-31) U/L Alkaline Phosphatase (39-117) U/L Ammonia (13-55) umol/L Troponin I High Sens 41.0 H (<3.5-17.0) ng/L NT-Pro-B Natriuret Pep (<300) pg/mL Total Protein (6.5-8.0) g/dL Albumin (3.5-5.0) g/dL Urine Color Urine Appearance Urine pH (5.0-9.0) Ur Specific Carlisle (1.005-1.025) Urine Protein (Neg-Trace) mg/dL Urine Glucose (UA) (Negative) mg/dL Urine Ketones (Negative) mg/dL Urine Blood (Negative) Urine Nitrite (Negative) Ur Leukocyte Esterase (Negative) Urine RBC (0-2) /HPF Urine WBC (0-5) /HPF Ur Squamous Epith Cells (0-2) /HPF Urine Bacteria (None Seen) Hyaline Casts (0-2) /LPF Independent Interpretation I performed an independent interpretation of an: EKG and CT Scan Interpretation: I personally interpreted the EKG which reveals a ventricular paced rhythm, without ST-elevation/depression, QT is lengthened at 556 Vent. Rate : 72 BPM Atrial Rate : 258 BPM P-R Int : * ms QRS Dur : 154 ms QT Int : 508 ms P-R-T Axes : * 64 220 degrees QTcB Int : 556 ms Ventricular-paced rhythm Abnormal ECG When compared with ECG of 28-Apr-2025 17:07, Vent. rate has decreased by 12 bpm I personally interpreted the CTA PE study which reveals small pulmonary emboli in the right middle and lower lobes, right lower lobe pneumonia, complete opacification of the left main bronchus with complete atelectasis of the left lung, I agree with the radiologist's interpretation I personally interpreted the CT abdomen and pelvis which reveals diverticulosis, free fluid in the pelvis, and an area of hyperdensity of the L kidney, I agree with the radiologist's interpretation Radiology Impression Discussion of test interpretation with radiology: I have reviewed the radiologist's reading. Radiologist Impression: CTA PE protocol CHEST: THYROID: Again seen is a multinodular thyroid gland. PULMONARY ARTERIES: There are small intraluminal filling defects within the right middle and lower lobe pulmonary arterial branches, consistent with pulmonary emboli. LUNGS: There is patchy airspace opacity in the right lower lobe, consistent with pneumonia. There is complete atelectasis of the left lung. MEDIASTINUM: There is no mediastinal lymphadenopathy. CECI: There is no hilar lymphadenopathy. CARDIOVASCULATURE: The heart remains markedly enlarged. There is no pericardial effusion. The thoracic aorta is normal in caliber. DEGREE OF CORONARY CALCIFICATION: not evaluable, due to dense contrast in the coronary arteries. PLEURA: There is a small right pleural effusion. A small left pleural effusion is noted with the majority of the fluid at the lung apex. No pneumothorax. MAIN AIRWAYS: There is a opacification and occlusion of the left main bronchus. AXILLA: There is no axillary lymphadenopathy. ABDOMEN/PELVIS: LIVER: The liver is normal in size and contour. No liver mass is identified. The hepatic and portal veins are patent. GALL BLADDER / BILE DUCTS: The gallbladder is surgically absent. There is no intra or extrahepatic biliary ductal dilatation. SPLEEN: The spleen is normal in size. There are nonspecific subcentimeter hypodensities in the spleen without change.. PANCREAS: The pancreas is unremarkable in appearance. ADRENAL GLANDS: Within normal limits. KIDNEYS/RETROPERITONEUM: There is a retained fragments of a right nephroureteral stent in the renal pelvis. There is mild thickening and enhancement of the right renal pelvis. There is a 2.0 cm left renal mass which measures 51 HU in density and may represent a solid mass. LYMPH NODES: No abdominal or pelvic lymphadenopathy. VASCULATURE: The abdominal aorta demonstrates atherosclerotic calcification, but is normal in caliber. MESENTERY/PERITONEUM: No free air or free fluid. No masses. STOMACH: The stomach is collapsed, limiting evaluation. SMALL BOWEL: The small bowel is normal in caliber. COLON: There is diverticulosis of the descending and sigmoid colon, without evidence of diverticulitis. APPENDIX: Appendix is not seen, however no inflammatory changes are seen adjacent to the cecum . URINARY BLADDER/PELVIC ORGANS: The urinary bladder is collapsed with a Holt catheter. There is probable fluid in the endometrial canal. BONES / SOFT TISSUES: The patient is status post internal fixation of the right hip. CT/CT angio chest PE protocol IMPRESSION: 1. Small pulmonary emboli in the right middle and lower lobes. 2. Right lower lobe pneumonia. 3. Complete opacification of the left main bronchus with complete atelectasis of the left lung. While this may be due to secretions, underlying neoplasm is not excluded. Further evaluation with bronchoscopy should be considered. 4. Retained fragments of a right nephroureteral stent in the renal pelvis. Thickening and enhancement of the payne of the renal pelvis could represent infection. 5. 2.1 cm mass at the lower pole of the left kidney which is hyperdense. Ultrasound correlation is recommended. 6. Diverticulosis of the descending and sigmoid colon, without evidence of diverticulitis. 7. Possible fluid in the endometrial canal. Correlation with ultrasound is suggested. 8. These findings were discussed with Marilyn Chau in the emergency room on 05/10/2025 at 11:55 AM. Electronically signed by: Tae Khan MD 05/10/2025 11:55 AM [facility] [place] Dictated By: Tae Khan MD Signed By: <Electronically signed by Tae Khan MD in OV> 05/10/[address] abdomen and pelvis CHEST: THYROID: Again seen is a multinodular thyroid gland. PULMONARY ARTERIES: There are small intraluminal filling defects within the right middle and lower lobe pulmonary arterial branches, consistent with pulmonary emboli. LUNGS: There is patchy airspace opacity in the right lower lobe, consistent with pneumonia. There is complete atelectasis of the left lung. MEDIASTINUM: There is no mediastinal lymphadenopathy. CECI: There is no hilar lymphadenopathy. CARDIOVASCULATURE: The heart remains markedly enlarged. There is no pericardial effusion. The thoracic aorta is normal in caliber. DEGREE OF CORONARY CALCIFICATION: not evaluable, due to dense contrast in the coronary arteries. PLEURA: There is a small right pleural effusion. A small left pleural effusion is noted with the majority of the fluid at the lung apex. No pneumothorax. MAIN AIRWAYS: There is a opacification and occlusion of the left main bronchus. AXILLA: There is no axillary lymphadenopathy. ABDOMEN/PELVIS: LIVER: The liver is normal in size and contour. No liver mass is identified. The hepatic and portal veins are patent. GALL BLADDER / BILE DUCTS: The gallbladder is surgically absent. There is no intra or extrahepatic biliary ductal dilatation. SPLEEN: The spleen is normal in size. There are nonspecific subcentimeter hypodensities in the spleen without change.. PANCREAS: The pancreas is unremarkable in appearance. ADRENAL GLANDS: Within normal limits. KIDNEYS/RETROPERITONEUM: There is a retained fragments of a right nephroureteral stent in the renal pelvis. There is mild thickening and enhancement of the right renal pelvis. There is a 2.0 cm left renal mass which measures 51 HU in density and may represent a solid mass. LYMPH NODES: No abdominal or pelvic lymphadenopathy. VASCULATURE: The abdominal aorta demonstrates atherosclerotic calcification, but is normal in caliber. MESENTERY/PERITONEUM: No free air or free fluid. No masses. STOMACH: The stomach is collapsed, limiting evaluation. SMALL BOWEL: The small bowel is normal in caliber. COLON: There is diverticulosis of the descending and sigmoid colon, without evidence of diverticulitis. APPENDIX: Appendix is not seen, however no inflammatory changes are seen adjacent to the cecum . URINARY BLADDER/PELVIC ORGANS: The urinary bladder is collapsed with a Holt catheter. There is probable fluid in the endometrial canal. BONES / SOFT TISSUES: The patient is status post internal fixation of the right hip. CT/CT abdomen pelvis w IV con IMPRESSION: 1. Small pulmonary emboli in the right middle and lower lobes. 2. Right lower lobe pneumonia. 3. Complete opacification of the left main bronchus with complete atelectasis of the left lung. While this may be due to secretions, underlying neoplasm is not excluded. Further evaluation with bronchoscopy should be considered. 4. Retained fragments of a right nephroureteral stent in the renal pelvis. Thickening and enhancement of the payne of the renal pelvis could represent infection. 5. 2.1 cm mass at the lower pole of the left kidney which is hyperdense. Ultrasound correlation is recommended. 6. Diverticulosis of the descending and sigmoid colon, without evidence of diverticulitis. 7. Possible fluid in the endometrial canal. Correlation with ultrasound is suggested. 8. These findings were discussed with Marilyn Chau in the emergency room on 05/10/2025 at 11:55 AM. Electronically signed by: Tae Khan MD 05/10/2025 11:55 AM [facility] Dictated By: Tae Khan MD Signed By: <Electronically signed by Tae Khan MD in OV> 05/10/25 1155 Independent Historian Clinical information obtained from an independent historian. History obtained from or confirmed by: Other (Son and [id number] at bedside) External Record Review External record reviewed: Inpatient record, Office record, Outpatient record, Prior outpatient labs and Prior outpatient radiology Chronic Conditions Patient?s care impacted by: Other (HFrEF, CKD stage 3, HLD, GORDON, COPD, mitral regurg, pulmonary HTN, AFib on Eliquis) Discharge Plan Discharge Patient Disposition: Admitted As Inpatient Interventions: Admission Worksheet (ED) Last Done: 05/10/25 14:47 Discharge Date/Time: 05/10/25 14:47
--- NOTE | 2025-05-10 09:48 | ECG_ITS ---
Test Reason : sob Blood Pressure : */* mmHG Vent. Rate : 72 BPM Atrial Rate : 258 BPM P-R Int : * ms QRS Dur : 154 ms QT Int : 508 ms P-R-T Axes : * 64 220 degrees QTcB Int : 556 ms Ventricular-paced rhythm Abnormal ECG When compared with ECG of 28-Apr-2025 17:07, Vent. rate has decreased by 12 bpm Referred By: Marilyn Chau Electronically Signed By: CARMITA ROCHA MD
--- NOTE | 2025-05-10 09:50 | PC.NURSE ---
Pt coming from [facility], reporting SOB, staff unable to give EMS much information. Pt reported to be bedbound, s/p broken back, unclear when this happened. Holt in place on arrival, wound care and pressure dressings applied to spine, coccyx and bilateral heals. Pt provided pericare at this time, placed on monitor, awaiting ED provider at this time, call valentine within reach at this time
[2025-05-10 10:35] LABS: Venous Blood Gas Refer to POC result
[2025-05-10 10:35] LABS: MANUAL DIFF FLAG NO
[2025-05-10 10:36] LABS: VBG HCO3 43 mmol/L (22-26); VBG O2 % Saturation 43.0 %
[2025-05-10 10:37] LABS: Hematocrit 37.7 % (37.0-47.0); Hemoglobin 11.6 g/dl (12.0-16.0); Imm Gran Abs Auto 0.05 X10*3/uL (0.00-0.03); Imm Gran Pct Auto 0.6 % (0.0-0.4); Lymphocytes Absolute Auto 0.8 X10*3/uL (1.2-4.9); Mean Corpuscular HGB Conc 30.8 g/dl (31.0-35.0); Mean Corpuscular Hemoglobin 28.4 pg (27.0-33.0); Mean Corpuscular Volume 92.4 fL (80.0-98.0); NRBC Abs Auto 0.000 X10*3/uL (0.0-0.012); NRBC Pct Auto 0.0 /100WBC (0.0-0.2); Platelet Count 140 X10*3/uL (160-400); Red Blood Count 4.08 X10*6/uL (4.20-5.50); White Blood Count 8.5 X10*3/uL (4.8-10.8)
[2025-05-10] MEDS: Lactated Ringers 1,000 ML 500 ML IV (10:38)
[2025-05-10 10:49] LABS: Ammonia 17 umol/L (13-55)
[2025-05-10 10:51] LABS: Alanine Aminotransferase 18 U/L (0-31); Albumin Level 3.0 g/dL (3.5-5.0); Alkaline Phosphatase 131 U/L (39-117); Anion Gap 13 (12-20); Aspartate Amino Transferase 32 U/L (5-31); Blood Urea Nitrogen 52 mg/dL (9-16); Calcium 8.8 mg/dL (8.4-10.2); Carbon Dioxide 38 mmol/L (22-29); Chloride 104 mmol/L (96-108); Creatinine Clr Calc Pharmacy 27.8; Estimated Glomerular Filt Rate 40; Magnesium 2.3 mg/dL (1.6-2.6); Potassium 4.8 mmol/L (3.3-5.1); Sodium 150 mmol/L (135-145); Total Protein 5.5 g/dL (6.5-8.0)
[2025-05-10 10:57] LABS: Troponin-I High Sensitivity 48.3 ng/L (<3.5-17.0)
[2025-05-10] MEDS: iohexoL 350 MG/ML 100 ML INFUS..BTL IV (11:32)
[2025-05-10 11:40] LABS: Appearance Urine Cloudy; Glucose Urine UA Negative (Negative); PH 6.0 (5.0-9.0); Specific Gravity - Urine >= 1.030 (1.005-1.025); UMIC TRIGGER UACC YES
[2025-05-10 11:49] LABS: UACC Culture Trigger YES
[2025-05-10] MEDS: Albuterol Sulfate 5 MG, Albuterol/Iprat 2.5/0.5MG 3 ML 3 ML INHALE (12:18)
--- NOTE | 2025-05-10 12:36 | PM.CCHP ---
History of Present Illness Date of Service: 05/10/25 Attending physician on admission: Radha Cline Chief Complaint: Dyspnea Patient is a 84 Y F w/ extensive cardiovascular history including hypertension, hyperlipidemia, HFrEF 15-20% s/p AICD, paroxysmal atrial fibrillation reportedly on apixaban, CKD stage 3, COPD, GORDON, and recent admission for pneumonia and CHF exacerbation, presenting to ED on 05/10 w/?dyspnea; ED work-up including CTA C c/f RLL pneumonia, opacification of L main bronchus, as well as multiple pulmonary emboli; ED course c/b respiratory distress, for which patient placed on non-invasive ventilation and hypotension necessitating vasopressors; of note, code status changed to DNR/DNI following GOC conversation between patient and ED Review of Systems Review of Systems: Yes all other systems are reviewed and are negative [facility] Past Medical History Medical History Cardiomyopathy Permanent atrial fibrillation Preoperative cardiovascular examination Thyroid nodule incidentally noted on imaging study Lung nodule Ureteral stent present HFrEF (heart failure with reduced ejection fraction) Chronic atrial fibrillation Chronic anticoagulation Obesity CKD (chronic kidney disease) stage 3, GFR 30-59 ml/min Nephrolithiasis, uric acid Hyperlipidemia HTN (hypertension) A-fib GORDON (obstructive sleep apnea) COPD (chronic obstructive pulmonary disease) Pulmonary HTN Severe mitral regurgitation Thiamine deficiency Osteoporosis Family History Family History Father No problems noted. Mother No problems noted. Maternal Aunt Breast cancer Surgical History Surgical History S/P ureteral stent placement Status post tricuspid valve repair Status post mitral valve replacement with bioprosthetic valve Hx of hernia repair History of open reduction and internal fixation (ORIF) procedure Social History Social History Household Members: None Housing: Other Housing Other:: [facility] Are you a primary care professional to a significant other at home: No Do you presently have visiting nurse or other home services: No Unable to assess alcohol history related to: Unknown Alcohol intake: never Comment: 1:1 sitter Patient Tobacco Use Status: Former Tobacco user Tobacco use type: Cigarette Smoked in Last 30 Days: No e-Cigarette/Vaping Use: Never Used Second Hand Smoke Exposure: No Use of substances other than those prescribed or required for medical reasons: No Advance Directives: Yes Advance Directives on File: Yes Advance Directives Date on File: 11/28/23 service: No Current occupational status: retired Cognitive needs: No Hearing needs: No Vision needs: No Meds Allergies Allergy/AdvReac Type Severity Reaction Status Date / Time hydrocodone (From Vicodin) Allergy Mild CHEST PAIN Verified 05/10/25 09:39 Active Medications: Current Medications Norepinephrine Bitartrate (Levophed) 8 mg in 250 mls @ 0 mls/hr IVCONT .Q0M VIOLETA; Protocol Ceftriaxone Sodium 2 gm/ (Sodium Chloride) 50 mls @ 100 mls/hr IV ONCE ONE Stop: 05/10/25 12:48 Home Medications ?Medication ?Instructions ?Recorded ?Confirmed ?Last Taken ?Type ascorbate calcium (vitamin C) 500 500 mg PO DAILY 01/04/23 04/29/25 04/28/25 History mg tablet pcxyxilyinnt-Lp-kwyy-minerals 1 tab PO DAILY 01/04/23 04/29/25 12/07/24 History zinc gluconate 50 mg tablet 50 mg PO DAILY 01/04/23 04/29/25 04/28/25 History acetaminophen 325 mg capsule 650 mg PO Q6H PRN Fever Or Pain 01/20/24 04/29/25 04/27/25 History amiodarone 200 mg tablet 200 mg PO DAILY 07/27/24 04/29/25 04/15/25 History omeprazole 20 mg capsule,delayed 20 mg PO BID@0630,1630 12/07/24 04/29/25 04/28/25 History release thiamine HCl (vitamin B1) 100 mg 100 mg PO DAILY 01/12/25 04/29/25 Unknown History capsule amlodipine 5 mg tablet 5 mg PO DAILY 04/15/25 04/29/25 04/28/25 History furosemide 40 mg tablet (Lasix) 40 mg PO BID 04/15/25 04/29/25 04/28/25 History umeclidinium 62.5 mcg-vilanterol 1 inh inhalation DAILY 04/15/25 04/29/25 04/28/25 History 25 mcg/actuation powdr for inhalation (Anoro Ellipta) cholecalciferol (vitamin D3) 10 10 mcg PO DAILY 04/16/25 04/29/25 04/28/25 History mcg (400 unit) tablet (Vitamin D3) potassium chloride 20 mEq 20 meq PO DAILY 04/16/25 04/29/25 04/28/25 History tablet,extended release albuterol sulfate 90 mcg/actuation 2 puff inhalation Q4H PRN 04/29/25 04/29/25 Unknown History aerosol inhaler shortness of breath or wheezing ipratropium 0.5 mg-albuterol 3 mg 3 ml inhalation Q6H PRN Wheezing 04/29/25 04/29/25 04/28/25 History (2.5 mg base)/3 mL nebulization soln Physical Exam Vital Signs: Vital Signs: Last Vital Signs Temp 98.7 F 05/10/25 09:35 Pulse 69 05/10/25 12:34 Resp 16 05/10/25 12:34 BP 98/54 L 05/10/25 12:34 Pulse Ox 97 05/10/25 12:34 O2 Del Method BiPAP 05/10/25 12:34 O2 Flow Rate 2 05/10/25 09:57 FiO2 35 05/10/25 12:34 BMI result Body Mass Index 23.4 Const: Other: appreciable cachexia; no appreciable overt distress General: no acute distress HEENT: Head: Yes normal to inspection, Yes normocephalic and Yes atraumatic Eyes: General: appearance normal, both eyes and all related structures Neck: Neck: Yes normal visual inspection, Yes full ROM, Yes no meningeal signs, Yes trachea midline and Yes supple Chest: Chest palpation & inspection: normal inspection of the chest Resp: Other: diminished breath sounds L; appreciable rales, rhonchi R; no appreciable overt qheezing Cardio: Rate: regular rate Rhythm: regular rhythm GI: Inspection: Yes normal to inspection, No Abdominal wall edema and No distended Palpation (GI): Soft to palpation, not firm, nontender, no guarding and not rigid Skin: General skin exam: no rashes or lesions noted Neuro: General: tone normal, moves all extremities, no meningeal signs and no focal motor deficits Extrem: Other: appreciable 1+ pitting edema to bilateral shins General: Yes normal to inspection, Yes full ROM and Yes capillary refill normal Psych: Other: some appreciable anxiety, verbally redirectable Appearance: grossly normal Results Labs 05/10/25 10:27 05/10/25 10:27 Labs: Laboratory Results - last 24 hr 05/10/25 05/10/25 05/10/25 10:27 10:32 11:27 MCV 92.4 MCH 28.4 MCHC 30.8 L RDW 18.7 H Plt Count 140 L MPV 10.8 Immature Gran % (Auto) 0.6 H Neut % (Auto) 83.7 H Lymph % (Auto) 9.4 L Divide % (Auto) 6.1 Eos % (Auto) 0.1 Baso % (Auto) 0.1 Lymph # (Auto) 0.8 L Divide # (Auto) 0.5 Eos # (Auto) 0.0 Baso # (Auto) 0.0 Abs Immat Gran (auto) 0.05 H Absolute Neuts (auto) 7.1 Absolute Nucleated RBC 0.000 Nucleated RBC % (auto) 0.0 VBG pH 7.43 VBG pCO2 65 VBG pO2 47 VBG HCO3 43 H VBG O2 Saturation 43.0 VBG Base Excess 16.3 Anion Gap 13 Estim Creat Clear Calc 27.8 Estimated GFR 40 Random Glucose 112 Lactic Acid 1.5 Calcium 8.8 Magnesium 2.3 Total Bilirubin 1.3 H AST 32 H ALT 18 Alkaline Phosphatase 131 H Ammonia 17 Troponin I High Sens 48.3 H D NT-Pro-B Natriuret Pep 80764.3 H Total Protein 5.5 L Albumin 3.0 L Urine Color Dark Yellow Urine Appearance Cloudy Urine pH 6.0 Ur Specific Navar[place] >= 1.030 H Urine Protein 30 (1+) H Urine Glucose (UA) Negative Urine Ketones Trace Urine Blood Large (3+) H Urine Nitrite Negative Ur Leukocyte Esterase Large (3+) H Urine RBC >20 H Urine WBC >50 H Ur Squamous Epith Cells 3-5 Urine Bacteria Trace Hyaline Casts 11-20 Imaging Radiologist's Impressions: Impressions Chest X-Ray 05/10/25 10:12 IMPRESSION: Suspected left lung atelectasis with shift mediastinum toward the left. There could be underlying pleural effusion as well. Underlying pneumonia is not ruled out. Marilyn Chau, PAC notified via [employer], message Delivered at 10:24am EST Cardiomegaly and persistent mild pulmonary edema in the right lung with improved aeration of the right lung base. Electronically signed by: Cyrus Layton MD 05/10/2025 10:25 AM EST RP Abdomen/Pelvis CT 05/10/25 11:08 IMPRESSION: 1. Small pulmonary emboli in the right middle and lower lobes. 2. Right lower lobe pneumonia. 3. Complete opacification of the left main bronchus with complete atelectasis of the left lung. While this may be due to secretions, underlying neoplasm is not excluded. Further evaluation with bronchoscopy should be considered. 4. Retained fragments of a right nephroureteral stent in the renal pelvis. Thickening and enhancement of the payne of the renal pelvis could represent infection. 5. 2.1 cm mass at the lower pole of the left kidney which is hyperdense. Ultrasound correlation is recommended. 6. Diverticulosis of the descending and sigmoid colon, without evidence of diverticulitis. 7. Possible fluid in the endometrial canal. Correlation with ultrasound is suggested. 8. These findings were discussed with Marilyn Chau in the emergency room on 05/10/2025 at 11:55 AM. Electronically signed by: Tae Khan MD 05/10/2025 11:55 AM EST RP Chest CTA 05/10/25 11:08 IMPRESSION: 1. Small pulmonary emboli in the right middle and lower lobes. 2. Right lower lobe pneumonia. 3. Complete opacification of the left main bronchus with complete atelectasis of the left lung. While this may be due to secretions, underlying neoplasm is not excluded. Further evaluation with bronchoscopy should be considered. 4. Retained fragments of a right nephroureteral stent in the renal pelvis. Thickening and enhancement of the payne of the renal pelvis could represent infection. 5. 2.1 cm mass at the lower pole of the left kidney which is hyperdense. Ultrasound correlation is recommended. 6. Diverticulosis of the descending and sigmoid colon, without evidence of diverticulitis. 7. Possible fluid in the endometrial canal. Correlation with ultrasound is suggested. 8. These findings were discussed with Marilyn Chau in the emergency room on 05/10/2025 at 11:55 AM. Electronically signed by: Tae Khan MD 05/10/2025 11:55 AM EST RP Assessment and Plan (1) Respiratory failure: Status: Acute (2) Pneumonia: Status: Acute Plan Patient is a 84 Y F w/ extensive cardiovascular history including hypertension, hyperlipidemia, HFrEF 15-20% s/p AICD, paroxysmal atrial fibrillation reportedly on apixaban, CKD stage 3, COPD, GORDON, and recent admission for pneumonia and CHF exacerbation, presenting to ED on 05/10 w/?dyspnea; ED work-up including CTA C c/f RLL pneumonia, opacification of L main bronchus, as well as multiple pulmonary emboli; ED course c/b respiratory distress, for which patient placed on non-invasive ventilation and hypotension necessitating vasopressors N: no acute issues CV: hypotension, likely multi-factorial, cardiogenic and/or septic, norepinephrine gtt, wean as tolerated; CHF exacerbation R: acute respiratory failure, likely multi-factorial, d/t aspiration pneumonia, CHF exacerbation, non-invasive ventilation, wean as tolerated GI: NPO while on non-invasive ventilation, otherwise advance as tolerated : no acute issues; to monitor renal indices/electrolytes H: no acute issues; home apixaban ID: c/f sepsis, possible UTI, empiric vanc/zosyn, follow-up BCx, UCx 05/10 E: no acute issues; to monitor hypo-/hyper-glycemia P: no acute issues S: DNR/DNI, daily updates given to daughter/HCP
[2025-05-10] MEDS: Furosemide 100 MG/10 ML VIAL 80 MG IVPUSH (13:00)
--- NOTE | 2025-05-10 13:08 | PC.NURSE ---
PA/Andrei// this RN at bedside to have a discussion with the family. At this time pt placed on BiPap, started on Levophed d/t needing high dose lasix, pt BP not high enough at baseline to receive. Pt tolerating Bipap at this time, BP holding on MAR medications. Pt family wishing for pt to be DNR/DNI but is willing to trial the Bipap and critical medications at this time. Emtional support provided for family and patient, pt remains A/Ox4. Wound care provided to pt on arrival to the ED, pt noted to have a pressure injury that has an open area to her coccyx, bruising noted to spine and rib area, her bilat ankles remain boggy, pressure prevention dressings applied to all areas, wound consult placed at this time. Pt remains in ED until ICU bed becomes available.
[2025-05-10 14:07] LABS: INTERNATIONAL NORM RATIO 1.5 (0.9-1.1); Prothrombin Time 18.5 SEC (11.2-13.5)
[2025-05-10 14:25] LABS: Troponin-I High Sensitivity 41.0 ng/L (<3.5-17.0)
--- NOTE | 2025-05-10 15:39 | HO.WOUND ---
Wound Consult: Initial 84 yr old female admitted to [facility] [place] - See progress notes and H&P for detailed history. Patient with several recent admissions and noted wounds. Wound consult placed for pressure injuries. Patient agreeable to assessment and photo documentation. Seen in the ICU with direct care RN and GERIATRIC CARE MANAGER at bedside at transfer from ED. patient with multiple areas of bruising and purpura to body. patient with recent medical complexities including extensive cardiovascular history, AICD, CHF, CKD, COPD with acute respiratory failure in the setting of multiple pulmonary emboli and aspiration pneumonia, hypotension requiring pressors, patient with incontinence and compromised nutritional status frail and cachetic. Patient made DNR/DNI with ongoing GOC discussions. Coccyx and bilateral upper buttocks Etiology: Coccyx and bilateral upper buttocks deep tissue pressure injury Present on Admission ( noted on last admission as stage 3, now presenting as DTI) Wound Bed: coccyx and bilateral upper buttocks with intact deep maroon/purple nonblanching discoloration, central area over coccyx is open full thickness obscured by yellow slough/deep purple in base. Drainage / Odor: scant serosanguineous, no odor Edges: ? advancing edges with purple Palmer wound: ? No Induration, Fluctuance or Warmth noted Pain: yes Goals of Treatment: ? triad paste/foam Left back/spine Etiology: Left back/spine deep tissue pressure injury Present on Admission Wound Bed: cluster intact deep maroon/purple nonblanching discoloration - at times lies over bony spine/ribs Drainage / Odor: none Edges: ? irregular Palmer wound: ? No Induration, Fluctuance or Warmth noted Pain: none Goals of Treatment: ? foam/offloading Left heel Etiology: left heel unstageable pressure injury Present on Admission - appears unchanged from previous admissions. Measurements: 0.3cm x 0.5cm x 0.2cm Wound Bed: dry yellow, pinpoint open center with yellow creamy drainage Drainage / Odor: scant yellow no odor Edges: ? Palmer wound: ? No Induration, Fluctuance or Warmth noted - redness palmer wound Pain: none Goals of Treatment: ? foam offloading Right heel Etiology: right heel deep tissue pressure injury Present on Admission Wound Bed: irregular shaped area of intact purple discoloration - appears as deflated blister, possible purpura Drainage / Odor: none Edges: ? irregular Palmer wound: ? No Induration, Fluctuance or Warmth noted Goals of Treatment: ? offloading/foam Left medial thigh- irregular linear abrasions- skin intact- present on admission Sternum with internal wires under thin skin- small scab and redness noted- protective foam in place - concern for skin integrity Left abdomen- full thickness wounding to the base of the fold- likely in the setting of MASD- linear and painful wounds moist red bases- durafiber ag for drainage absorption Right upper arm- bruising patient with multiple areas of bruising and purpura to arms- Left arm and hand with healing skin tears- dry and scabbed - may leave open to air Recommendations: 1. Turn and Reposition every 2 hours and as needed for patient comfort. Use pillows or wedges to support off loading positions. 2. Off Load all bony prominences with use of pillows and heel boots if needed. Apply Preventative foams where needed. 3. Monitor for incontinence and moisture control, use barrier creams when needed for prevention and treatment. 4. Provide adequate and supplemental nutrition. 5. Order or Continue low air loss mattress. 6. When applicable maintain blood glucose levels per Providers order. Coccyx/buttocks: Off Load Pressure with Q2 hr turns and use of pillows - Cleanse with PH balance spray or wipes, pat dry. ?Apply thin layer of Triad to wound bed. Do not remove all of paste between applications as this may cause further skin damage.? Cover with foam dressing to aid in off loading and protection from friction. Change every other day and PRN. Back/left back: Off Load Pressure with Q2 hr turns and use of pillows - Routine cleansing. Apply skin prep allow to dry. Cover with foam dressing to aid in off loading and protection from friction. Change every 3 days and PRN. Bilateral heels: Elevate heels off of bed surface with pillows. Float heels off of pillows. Apply skin prep allow to dry. Apply heel foam dressings, peel back and assess Q shift and change every 3 days and PRN. Left abdomen: cleanse with saline, apply durafiber ag to open wounds, cover with foam/dry dressing, change daily and PRN Re-consult wound care Nurse for wound deterioration or wound changes.
--- NOTE | 2025-05-10 15:42 | W.MHC.ACPN ---
Advanced Care Planning Note Advanced Care Planning Note Discussed with: family member(s) Time spent (in minutes): 30 Narrative: I introduced myself to Ms. Pinon's daughter/HCP, son, and grandson at the bedside; I offered updates and clarifications; we re-discussed code status, after which Ms. Pinon's daughter re-stated Ms. Pinon is DNR/DNI; moreover, we discussed comfort-focused care, after which Ms. Pinon's family expressed it is reasonable to continue medical management, though expressed they would not want to cause additional suffering, and that comfort-focused care may be appropriate in the future Problems Discussed (1) Respiratory failure: (2) Pneumonia:
--- NOTE | 2025-05-10 16:00 | CA_ITS ---
Transthoracic Echocardiogram Patient (Last, First, Middle): Ramona Pinon J Gender: Female Date of : 1940 Age: 84 Procedure Date: 05/10/2025 Procedure Type: Transthoracic Echocardiogram Location: ICU Height: 160.02 cm Weight: 59.42 kg BSA: 1.62 m2 Heart Rate: bpm BP: 106 / 64 mmHg Lead Maintenance Technician: JERICA Referring MD: Radha Cline MD Sling Operator: Arnold Sebastian MD Symptoms: Please Assess Function Study Quality: Adequate with contrast ECG Rhythm: Sinus Conclusions: - 1. Mildly dilated left ventricle with severely reduced LV ejection fraction 10-15% 2. Suggestion of significantly elevated right atrial pressures Findings Procedure Information Contrast agent, definity, is being given per protocol without apparent complications. Left Ventricle Mildly increased left ventricular cavity size. There is normal left ventricular wall thickness. The left ventricular systolic function is severely decreased. The visually estimated ejection fraction is between 10 15%. There is severe global hypokinesis. There is paradoxical septal motion consistent with a right ventricular pacemaker. Diastolic function is indeterminate on the basis of available data. Tricuspid Valve Significantly elevated right atrial pressure. Venous The inferior vena cava is moderately dilated and collapses less than 50% with inspiration. Prior Study Comparison Changes noted compared to prior study dated: 04/17/2025. mildly reduced LV ejection fraction Measurements 2D Linear Measurements IVSd: 1.37 0.6-0.9/0.6-1.0 cm LVIDd: 6.12 3.9-5.3/4.2-5.9 cm LVIDd Index: 3.78 2.4-3.2/2.2-3.1 cm/m2 LVIDs: 5.73 2.0-3.6 cm LVPWd: 0.92 0.7-1.1 cm LV Mass: 381.11 67-162/88-224 g LV Mass Index: 235.25 43-95/49-115 g/m2 LVOT Diam: 2.00 3.0+(-)1.3 cm 2D Systolic Function EF 4C: 12.70 >55% EF 2C: 9.90 >55% EF BiP: 12.00 >55% Mitral Valve MV Pk E: 1.27 MV Decel Time: 206.00 E'Lateral: 3.48 E'Medial: 2.83 E/E' Med: 44.90 E/E' Lat: 36.50 PHT: 60.00 MVA PHT: 3.67 Decel [place]: 6.13 LVOT LVOT Pk Sivakumar: 0.56 LVOT Mn Sivakumar: 0.34 LVOT VTI: 0.09 LVOT Pk Grad: 1.00 LVOT Mn Grad: 1.00 LVOT Diam: 2.00 LVOT Area: 3.14 Diastolic Function MV Pk E: 1.27 E'Medial: 2.83 E/E' Med: 44.90 E' Laterial: 3.48 E/E' Lat: 36.50 Tricuspid Valve RA Press: 15.00 Updated in Other Vendor System with Status of Final Arnold Sebastian MD electronically signed on 05/10/2025 4:13:14 PM with status of Final
--- NOTE | 2025-05-10 17:37 | PHA.PROG ---
Admission Date/Time: May 10, 2025 13:58 Indication: EMPIRIC Weight in k.8 kg Serum Creatinine - Last 168 Hours 05/10/25 10:27 Creatinine 1.29 Estimated CrCl and GFR - Last 168 Hours 05/10/25 10:27 Estim Creat Clear Calc 27.8 Estimated GFR 40 Vancomycin Loading Dose: 1500 Current Vancomycin Dosing Regimen: 750 Q24H Vancomycin Monitoring using AUC goal of 400 - 600 range with trough as surrogate marker: 486 Date and Time for next Vancomycin Level to be drawn: 05/12 @1500 Pharmacist Comments on Vancomycin Plan: Vancomycin dosing will take advantage of [employer] as a clinical decision support tool that uses Bayesian modeling to calculate individual patient's pharmacokinetic parameters and forecast the patient's drug concentration time course with the target goal AUC 24 range of 400 - 600 mg/L/hr.
--- NOTE | 2025-05-10 17:45 | HE.ICUCC ---
ICU Critical Care Nursing Note ICU Day #: 1 Patient arrived to unit from ED via stretcher, tranfered to ICU bed via slide, complained of some discomfort to spine with movement, denies need for PRN pain medication at rest. Wound nurse arrived with patient from ED, completing wound assessments. Neuro: Alert but pleasantly confused to date and situation Cardiac: Sinus v paced with BBB, no significant edema noted. Levophed continues as on arrival unable to titrate at current time Resp: Diminshed through out, on Bipap transitioned to NC 1L, O2 sat 93-95% GI/: no BM noted, abdomen soft round non tender Integumentary/Musculoskeletal: See wound note for full details, moderate weakness noted, current baseline as per family after multiple admissions to hospital and short term rehab Psychosocial (family etc.): Family at bedside, very supportive Infectious Disease: Resp panel drawn and sent
[2025-05-10] MEDS: Furosemide 40 MG/4 ML VIAL IVPUSH (18:02)
[2025-05-10 18:48] LABS: Anion Gap 17 (12-20); Blood Urea Nitrogen 45 mg/dL (9-16); Calcium 8.3 mg/dL (8.4-10.2); Carbon Dioxide 32 mmol/L (22-29); Chloride 106 mmol/L (96-108); Creatinine Clr Calc Pharmacy 31.7; Estimated Glomerular Filt Rate 46; Magnesium 2.2 mg/dL (1.6-2.6); Potassium 4.4 mmol/L (3.3-5.1); Sodium 151 mmol/L (135-145)
--- NOTE | 2025-05-10 19:32 | PHA.MEDREC ---
Pharmacy Consult ? Medication Reconciliation Pharmacy has completed the medication reconciliation.med rec complete, utilized list from [facility] [place]
[2025-05-10] MEDS: Albumin Human 25 % 50 ML 100 ML IV ×3 (20:42→23:25)
[2025-05-10] MEDS: Lidocaine 4 % Patch ADH..PATCH 1 PATCH TRANSDERMA (21:42)
[2025-05-11] VITALS (37 sets, daily range): BP systolic 102–127; BP diastolic 47–68; PULSE 72–122; RESP 8–76; TEMP 36.3–36.7; O2SAT 30–100; BMI 23.4
[2025-05-11] MEDS: Albumin Human 25 % 50 ML 100 ML IV (00:04)
[2025-05-11] MEDS: 0.9 % Sodium Chloride Flush 3 ML SYRINGE IVFLUSH ×3 (00:06→15:30)
[2025-05-11] MEDS: Albuterol/Iprat 2.5/0.5MG 3 ML AMPUL.NEB INHALE (00:13)
[2025-05-11 05:30] LABS: MANUAL DIFF FLAG NO
[2025-05-11 05:32] LABS: Hematocrit 32.5 % (37.0-47.0); Hemoglobin 10.2 g/dl (12.0-16.0); Imm Gran Abs Auto 0.04 X10*3/uL (0.00-0.03); Imm Gran Pct Auto 0.4 % (0.0-0.4); Lymphocytes Absolute Auto 1.0 X10*3/uL (1.2-4.9); Mean Corpuscular HGB Conc 31.4 g/dl (31.0-35.0); Mean Corpuscular Hemoglobin 28.4 pg (27.0-33.0); Mean Corpuscular Volume 90.5 fL (80.0-98.0); NRBC Abs Auto 0.000 X10*3/uL (0.0-0.012); NRBC Pct Auto 0.0 /100WBC (0.0-0.2); Platelet Count 123 X10*3/uL (160-400); Red Blood Count 3.59 X10*6/uL (4.20-5.50); White Blood Count 8.9 X10*3/uL (4.8-10.8)
[2025-05-11 05:47] LABS: Albumin Level 3.8 g/dL (3.5-5.0); Anion Gap 19 (12-20); Blood Urea Nitrogen 41 mg/dL (9-16); Calcium 8.6 mg/dL (8.4-10.2); Carbon Dioxide 33 mmol/L (22-29); Chloride 105 mmol/L (96-108); Creatinine Clr Calc Pharmacy 34.2; Estimated Glomerular Filt Rate 50; Magnesium 2.3 mg/dL (1.6-2.6); Potassium 3.8 mmol/L (3.3-5.1); Sodium 153 mmol/L (135-145)
[2025-05-11 07:44] LABS: Chlamydia pneumoniae PCR Not Detected (Not Detect.); Coronavirus 229E PCR Not Detected (Not Detect.); Coronavirus HKU1 PCR Not Detected (Not Detect.); Coronavirus NL63 PCR Not Detected (Not Detect.); Coronavirus OC43 PCR Not Detected (Not Detect.); Influenza A H1-2009 PCR Detected (Not Detect.); RSV PCR Not Detected (Not Detect.); Rhino/Enterovirus PCR Not Detected (Not Detect.)
[2025-05-11 07:58] LABS: SARS-CoV-2 PCR Not Detected (Not Detect.)
[2025-05-11 07:59] LABS: Influenza A H1 PCR Not Detected (Not Detect.); Influenza A H3 PCR Not Detected (Not Detect.)
--- NOTE | 2025-05-11 09:15 | P.PNCC_ITS ---
Subjective Subjective Date of Service: 05/11/25 Interval History: no significant overnight events; persistent respiratory failure, vasopressor requirement Critical Care Time (minutes): 60 Physical Exam 2 Vital Signs: Vital Signs: Last Vital Signs Temp 97.3 F 05/11/25 08:00 Pulse 81 05/11/25 09:00 Resp 23 H 05/11/25 09:00 BP 122/68 05/11/25 09:00 Pulse Ox 95 05/11/25 09:00 O2 Del Method BiPAP 05/11/25 09:00 O2 Flow Rate 1 05/11/25 00:00 FiO2 30 05/11/25 09:00 BMI result Body Mass Index 23.4 Const: Other: some appreciable increased work of breathing, though not in overt distress Nutritional Appearance: cachectic Orientation/consciousness: oriented to person HEENT: Head: Yes normal to inspection, Yes normocephalic and Yes atraumatic Eyes: General: appearance normal, both eyes and all related structures Neck: Neck: Yes normal visual inspection, Yes full ROM, Yes no meningeal signs, Yes trachea midline and Yes supple Chest: Chest palpation & inspection: normal inspection of the chest Resp: Other: some appreciable hyperpnea Cardio: Rate: regular rate Rhythm: regular rhythm GI: Inspection: Yes normal to inspection and No distended Skin: Other: appreciable wounds bilateral heels Neuro: General: oriented to person, tone normal, moves all extremities and no meningeal signs Extrem: General: Yes normal to inspection, Yes full ROM, Yes capillary refill normal and Yes no clubbing, cyanosis or edema Psych: Appearance: grossly normal Objective Data Labs 05/11/25 05:05 05/11/25 05:05 Labs: Laboratory Results - last 24 hr 05/10/25 05/10/25 05/10/25 10:27 10:32 11:27 WBC 8.5 RBC 4.08 L Hgb 11.6 L Hct 37.7 MCV 92.4 MCH 28.4 MCHC 30.8 L RDW 18.7 H Plt Count 140 L MPV 10.8 Immature Gran % (Auto) 0.6 H Neut % (Auto) 83.7 H Lymph % (Auto) 9.4 L [place] % (Auto) 6.1 Eos % (Auto) 0.1 Baso % (Auto) 0.1 Lymph # (Auto) 0.8 L [place] # (Auto) 0.5 Eos # (Auto) 0.0 Baso # (Auto) 0.0 Abs Immat Gran (auto) 0.05 H Absolute Neuts (auto) 7.1 Absolute Nucleated RBC 0.000 Nucleated RBC % (auto) 0.0 PT INR VBG pH 7.43 VBG pCO2 65 VBG pO2 47 VBG HCO3 43 H VBG O2 Saturation 43.0 VBG Base Excess 16.3 Sodium 150 H Potassium 4.8 Chloride 104 Carbon Dioxide 38 H Anion Gap 13 BUN 52 H Creatinine 1.29 Estim Creat Clear Calc 27.8 Estimated GFR 40 Random Glucose 112 Lactic Acid 1.5 Calcium 8.8 Phosphorus Magnesium 2.3 Total Bilirubin 1.3 H AST 32 H ALT 18 Alkaline Phosphatase 131 H Ammonia 17 Troponin I High Sens 48.3 H D NT-Pro-B Natriuret Pep 60087.3 H Total Protein 5.5 L Albumin 3.0 L Urine Color Dark Yellow Urine Appearance Cloudy Urine pH 6.0 Ur Specific [place] >= 1.030 H Urine Protein 30 (1+) H Urine Glucose (UA) Negative Urine Ketones Trace Urine Blood Large (3+) H Urine Nitrite Negative Ur Leukocyte Esterase Large (3+) H Urine RBC >20 H Urine WBC >50 H Ur Squamous Epith Cells 3-5 Urine Bacteria Trace Hyaline Casts 11-20 Respiratory Panel [place] Adenovirus (Rapid PCR) B.pert (TEM-PCR) B.parapertussis DNA PCR C. pneumoniae DNA (PCR) Coronavirus OC43 (PCR) Coronavirus HKU1 (PCR) Coronavirus 229E (PCR) Coronavirus NL63 (PCR) Human Metapneumovir PCR Influenza A (RT-PCR) Influenza A (H1) PCR Influ A (H1/09) PCR Influenza A (H3) PCR Influenza B (RT-PCR) M. pneumoniae (PCR) Parainfluenza 1 (PCR) Parainfluenza 2 (PCR) Parainfluenza 3 (PCR) Parainfluenza 4 (PCR) RSV (PCR) Entero/Rhino (PCR) SARS-CoV-2 RNA (RT-PCR) 05/10/25 05/10/25 05/10/25 13:56 13:57 18:10 WBC RBC Hgb Hct MCV MCH MCHC RDW Plt Count MPV Immature Gran % (Auto) Neut % (Auto) Lymph % (Auto) [place] % (Auto) Eos % (Auto) Baso % (Auto) Lymph # (Auto) [place] # (Auto) Eos # (Auto) Baso # (Auto) Abs Immat Gran (auto) Absolute Neuts (auto) Absolute Nucleated RBC Nucleated RBC % (auto) PT 18.5 H INR 1.5 H VBG pH VBG pCO2 VBG pO2 VBG HCO3 VBG O2 Saturation VBG Base Excess Sodium Potassium Chloride Carbon Dioxide Anion Gap BUN Creatinine Estim Creat Clear Calc Estimated GFR Random Glucose Lactic Acid Calcium Phosphorus Magnesium Total Bilirubin AST ALT Alkaline Phosphatase Ammonia Troponin I High Sens 41.0 H NT-Pro-B Natriuret Pep Total Protein Albumin Urine Color Urine Appearance Urine pH Ur Specific [place] Urine Protein Urine Glucose (UA) Urine Ketones Urine Blood Urine Nitrite Ur Leukocyte Esterase Urine RBC Urine WBC Ur Squamous Epith Cells Urine Bacteria Hyaline Casts Respiratory Panel [place] See Note Adenovirus (Rapid PCR) Not Detected B.pert (TEM-PCR) Not Detected B.parapertussis DNA PCR Not Detected C. pneumoniae DNA (PCR) Not Detected Coronavirus OC43 (PCR) Not Detected Coronavirus HKU1 (PCR) Not Detected Coronavirus 229E (PCR) Not Detected Coronavirus NL63 (PCR) Not Detected Human Metapneumovir PCR Not Detected Influenza A (RT-PCR) Detected A Influenza A (H1) PCR Not Detected Influ A (H1/09) PCR Detected A Influenza A (H3) PCR Not Detected Influenza B (RT-PCR) Not Detected M. pneumoniae (PCR) Not Detected Parainfluenza 1 (PCR) Not Detected Parainfluenza 2 (PCR) Not Detected Parainfluenza 3 (PCR) Not Detected Parainfluenza 4 (PCR) Not Detected RSV (PCR) Not Detected Entero/Rhino (PCR) Not Detected SARS-CoV-2 RNA (RT-PCR) Not Detected 05/10/25 05/11/25 18:23 05:05 WBC 8.9 RBC 3.59 L Hgb 10.2 L Hct 32.5 L MCV 90.5 MCH 28.4 MCHC 31.4 RDW 18.9 H Plt Count 123 L MPV 10.6 Immature Gran % (Auto) 0.4 Neut % (Auto) 83.1 H Lymph % (Auto) 11.3 L [place] % (Auto) 4.9 Eos % (Auto) 0.2 Baso % (Auto) 0.1 Lymph # (Auto) 1.0 L [place] # (Auto) 0.4 Eos # (Auto) 0.0 Baso # (Auto) 0.0 Abs Immat Gran (auto) 0.04 H Absolute Neuts (auto) 7.4 Absolute Nucleated RBC 0.000 Nucleated RBC % (auto) 0.0 PT INR VBG pH VBG pCO2 VBG pO2 VBG HCO3 VBG O2 Saturation VBG Base Excess Sodium 151 H 153 H Potassium 4.4 3.8 Chloride 106 105 Carbon Dioxide 32 H 33 H Anion Gap 17 19 BUN 45 H 41 H Creatinine 1.13 1.05 Estim Creat Clear Calc 31.7 34.2 Estimated GFR 46 50 Random Glucose 99 90 Lactic Acid Calcium 8.3 L 8.6 Phosphorus 3.8 3.8 Magnesium 2.2 2.3 Total Bilirubin AST ALT Alkaline Phosphatase Ammonia Troponin I High Sens NT-Pro-B Natriuret Pep Total Protein Albumin 3.8 Urine Color Urine Appearance Urine pH Ur Specific [place] Urine Protein Urine Glucose (UA) Urine Ketones Urine Blood Urine Nitrite Ur Leukocyte Esterase Urine RBC Urine WBC Ur Squamous Epith Cells Urine Bacteria Hyaline Casts Respiratory Panel [place] Adenovirus (Rapid PCR) B.pert (TEM-PCR) B.parapertussis DNA PCR C. pneumoniae DNA (PCR) Coronavirus OC43 (PCR) Coronavirus HKU1 (PCR) Coronavirus 229E (PCR) Coronavirus NL63 (PCR) Human Metapneumovir PCR Influenza A (RT-PCR) Influenza A (H1) PCR Influ A (H1/09) PCR Influenza A (H3) PCR Influenza B (RT-PCR) M. pneumoniae (PCR) Parainfluenza 1 (PCR) Parainfluenza 2 (PCR) Parainfluenza 3 (PCR) Parainfluenza 4 (PCR) RSV (PCR) Entero/Rhino (PCR) SARS-CoV-2 RNA (RT-PCR) Progress Note: A&P Assessment and plan (1) Respiratory failure: Status: Acute (2) Pneumonia: Status: Acute (3) CHF (congestive heart failure): Status: Acute Plan Patient is a 84 Y F w/ extensive cardiovascular history including hypertension, hyperlipidemia, HFrEF 15-20% s/p AICD, paroxysmal atrial fibrillation reportedly on apixaban, CKD stage 3, COPD, GORDON, and recent admission for pneumonia and CHF exacerbation, presenting to ED on 05/10 w/?dyspnea; ED work-up including CTA C c/f RLL pneumonia, opacification of L main bronchus, as well as multiple pulmonary emboli; ED course c/b respiratory distress, for which patient placed on non-invasive ventilation and hypotension necessitating vasopressors N: no acute issues CV: hypotension, likely multi-factorial, cardiogenic and/or septic, norepinephrine gtt, wean as tolerated; CHF exacerbation R: acute respiratory failure, likely multi-factorial, d/t aspiration pneumonia, CHF exacerbation, non-invasive ventilation, wean as tolerated GI: NPO while on non-invasive ventilation, otherwise advance as tolerated : no acute issues; to monitor renal indices/electrolytes H: no acute issues; home apixaban ID: c/f sepsis, influenza, possible UTI, empiric vanc/zosyn, follow-up BCx, UCx 05/10 E: no acute issues; to monitor hypo-/hyper-glycemia P: no acute issues S: DNR/DNI, daily updates given to daughter/HCP Quality Stroke Does the patient have a stroke diagnosis?: No VTE Prior VTE?: No VTE Risk Level:: Medical - moderate - high VTE Device Contraindication: N/A - Device Ordered VTE Drug Contraindication: N/A - Med Ordered
--- NOTE | 2025-05-11 09:47 | MHC.CLN ---
PT WITH INCREASED NUTRITION RISK R/T PRESSURE INJURY CURRENTLY NPO WHEN DIET TO ADVANCE, RECOMMEND ADDING ENSURE BID TO PROMOTE WOUND HEALING SUPPLEMENT TO PROVIDE 700KCALS, 40G PROTEIN FOLLOWING FOR DIET ADVANCEMENT SEE FULL CLINICAL NUTRITION ASSESSMENT
--- NOTE | 2025-05-11 09:49 | W.MHC.ACPN ---
Advanced Care Planning Note Advanced Care Planning Note Discussed with: family member(s) Time spent (in minutes): 30 Narrative: I met patient's family at the bedside 12/09 AM; I offered updates and clarifications; patient's family stated that patient has expressed she is ready to pass away, and patient's family expressed that they believe she is suffering; given such, decision was made to transition patient to comfort-focused care Problems Discussed (1) Respiratory failure: (2) Pneumonia: (3) CHF (congestive heart failure):
--- NOTE | 2025-05-11 10:56 | MHC.CM.PN ---
Pt admitted to ICU from [facility] with respiratory distress/on Bipap. Pt unable to participate in CM assessment at this time d/t SOB - family to meet with MD later today to review goals of care with a possible transition to CALENDER WIND UP HELPER. CM to defer formal d/c planning assessment until 05/12 when more information is known. Will refer pt back to [facility] in the interim.
--- NOTE | 2025-05-11 18:06 | PC.NURSE ---
Assumed care of patient at 0700: Alert and oriented 3, on Bipap transitioned to NC as per patient and family request, patient transitioned to BEAD FILLER this morning, Denies pain or discomfort at current time, Levophed titrated off after Daughter/ HCP arrival back to unit this afternoon, received Morphine x 1 late morning/ early afternoon (see MAR) and continues to deny pain or discomfort. Family continues at bedside, NEDS consulted due to BEAD FILLER status, Case #[id number] spoke with Ying, to report time of to them when available.
[2025-05-12] VITALS (18 sets, daily range): RESP 0–46
[2025-05-12] MEDS: Morphine Sulfate/NS 100 MG/100 ML PLAST..BAG IVCONT (00:06)
--- NOTE | 2025-05-12 04:47 | PC.NURSE ---
Addendum entered by Maci Rivera RN 05/12/25 07:34: Pt ripstole on tele at approx 0700. This va underwriter at bedside, unable to feel pulse. Waiting for MD pronounce. Report given to oncoming RN. Original Note: This author assumed care for pt at approx 1845. Pt is comfort measures only w/ family at bedside. Drowsy, but when awake becomes anxious and restless stating ?please help me? with RR in 30s-40s. Pt provided w/ PRN analgesics per MAR w/ some effect.MACHINE SILVER STRIPPER Nic aware. Ultimately, pt placed on IV Morphine drip w/ titrations per MAR and PRN IVP versed added w/ positive effect. Holt remains in place w/ small amount of concentrated urine. See flowsheet. Extremeties remain cool. Repo as tolerated. Air loss bed in place. Family remains at bedside and agreeable to plan. This author is at bedside frequently throughout shift for comfort of pt and family. ?
--- NOTE | 2025-05-12 07:49 | P.DN_ITS ---
Discharge Sum: Prov Provider Primary care physician: Sal Esparza MD Pronouncing clinician: Radha Cline Discharge Sum: Diag Contributing Factors (1) Respiratory failure: (2) Pneumonia: (3) CHF (congestive heart failure): Discharge Sum: Summary Date and Time Date of admission: 05/10/25 13:58 Date of : 05/12/25 Time of : 07:40 Summary Details: Ms. Pinon is a 84 year-old female with hypertension, hyperlipidemia, heart failure with reduced ejection fraction 15-20% status post AICD, paroxysmal atrial fibrillation on apixaban, chronic kidney disease stage 3, COPD, obstructive sleep apnea, and recent admission for pneumonia and CHF exacerbation, presenting to emergency department on 05/10 with?dyspnea; ED work- up was concerning for pneumonia and CHF exacerbation; ED course was complicated by respiratory distress, for which patient placed on non-invasive ventilation and hypotension necessitating vasopressors; on 05/11, a goals of care conversation was had with Ms. Pinon and her family, after which the decision was made to transition Ms. Pinon's philosophy of care to comfort-focused care; Ms. Pinon on 05/12 at 7:40 with per family at the bedside Additional Data Confirmation of as documented by pronouncing clinician: no pulse, no respirations, no heart sounds and pupils fixed and dilated Family: at bedside Attending physician: Radha Cline MD
== END 2025-05-12 07:40 | disposition expired | DRG 871 ==
LOC: HO.ED 09:52 → HO.EDOVER 14:07 → HO.ICU 14:14
PROVIDERS: Admitting Provider Internal Medicine Critical Care Medicine; Emergency Provider Student in an Organized Health Care Education/Training Program; PCP Family Medicine; Visit Provider Internal Medicine Critical Care Medicine
DX: A41.9 Sepsis, unspecified organism (principal); I50.23 Acute on chronic systolic (congestive) heart failure; J69.0 Pneumonitis due to inhalation of food and vomit; J96.01 Acute respiratory failure with hypoxia; I13.0 Hypertensive heart and chronic kidney disease with heart failure and stage 1 through stage 4 chronic kidney disease, or unspecified chronic kidney disease; Z66 Do not resuscitate; E78.5 Hyperlipidemia, unspecified; N18.30 Chronic kidney disease, stage 3 unspecified; G47.33 Obstructive sleep apnea (adult) (pediatric); I48.0 Paroxysmal atrial fibrillation; I95.0 Idiopathic hypotension; Z95.2 Presence of prosthetic heart valve; Z87.891 Personal history of nicotine dependence; Z79.01 Long term (current) use of anticoagulants; Z79.899 Other long term (current) drug therapy
CPT/HCPCS: 36415; 71046; 71275; 74177; 80048; 80053; 81001; 82040; 82140; 82803; 83605; 83735; 83880; 84100; 84484; 85025; 85610; 87040; 87086; 87633; 93005; 93308; 94640; 94660; 99285; J0131; J0696; J1630; J1650; J1938; J2250; J2270; J2543; J3010; J3374; J7120; P9047; Q9957; Q9967

== ENCOUNTER → 2025-05-10 09:48 | Outpatient (BNV) | payer MEDICARE, BC, SELFPAY | PROVIDERS: Emergency Provider Student in an Organized Health Care Education/Training Program; PCP Family Medicine; Visit Provider Radiology Diagnostic Radiology | DX: K80.20 Calculus of gallbladder without cholecystitis without obstruction (principal); N32.89 Other specified disorders of bladder; J18.0 Bronchopneumonia, unspecified organism; J98.11 Atelectasis; R91.8 Other nonspecific abnormal finding of lung field; Z96.0 Presence of urogenital implants; I51.7 Cardiomegaly; J81.0 Acute pulmonary edema | CPT/HCPCS: 71046; 71275; 74177 ==

== ENCOUNTER → 2025-05-10 09:48 | Outpatient (BNV) | payer MEDICARE, BC, SELFPAY | PROVIDERS: Emergency Provider Student in an Organized Health Care Education/Training Program; PCP Family Medicine; Visit Provider Internal Medicine Cardiovascular Disease | DX: R94.31 Abnormal electrocardiogram [ECG] [EKG] (principal); Z95.0 Presence of cardiac pacemaker | CPT/HCPCS: 93010 ==

== ENCOUNTER → 2025-05-10 13:58 | Outpatient (BNV) | payer MEDICARE, BC, SELFPAY | PROVIDERS: Admitting Provider Internal Medicine Critical Care Medicine; Emergency Provider Student in an Organized Health Care Education/Training Program; PCP Family Medicine; Visit Provider Internal Medicine Critical Care Medicine | DX: J96.90 Respiratory failure, unspecified, unspecified whether with hypoxia or hypercapnia (principal); J18.9 Pneumonia, unspecified organism; I50.9 Heart failure, unspecified | CPT/HCPCS: 99223; 99238; 99291 ==